=== PATIENT | male | born 1980 | race American Indian/Alaskan Native ===

== ENCOUNTER 2018-07-11 13:32 | Inpatient (IN) | payer OTHER ==
[2018-07-11] MEDS ORDERED: NACL 0.9% 1000 ML 1,000 ML ONE (14:14)
[2018-07-11] MEDS ORDERED: NACL 0.9% 1000 ML 1,000 ML IV ONE ×2 (14:24)
[2018-07-11] MEDS: DUONEB *Not for PRN Use IH ONE (14:25)
[2018-07-11 14:28] LABS: Basophils % (Auto) 0.4 % (0.0-1.8); Eosinophils % (Auto) 0.2 % (0.0-4.3); Hematocrit 28.7 % (35.5-45.6); Hemoglobin 9.6 gm/dl (11.8-15.2); Lymphocytes # (Auto) 1.5 K/mm3 (1.2-5.4); Lymphocytes % (Auto) 25.1 % (13.4-35.0); Mean Corpuscular HGB Conc 34 % (32-34); Mean Corpuscular Volume 87 fl (84-94); Monocytes # (Auto) 0.3 K/mm3 (0.0-0.8); Monocytes % (Auto) 5.3 % (0.0-7.3); Platelet Count 398 K/mm3 (140-440); Red Cell Distribution Width 14.7 % (13.2-15.2)
--- NOTE | 2018-07-11 14:42 | Emergency Department Report ---
HPI - General Chief Complaint: Weakness Time Seen by Provider: 07/11/18 14:09 - HPI HPI: 37-year-old presents to the emergency department from [facility] with complaints of generalized weakness, shortness of breath, Dry and productive cough, intermittent diarrhea. The patient says he has lost about 40 pounds over the past few months because he is not "eating well." He denies any fever, dysuria, nausea, vomiting, chest pain. He has history of HIV but is not on any medications. He is a tobacco smoker but says that he has not been smoking since he was incarcerated. ED Past Medical Hx - Past Medical History Hx HIV: Yes - Social History Smoking Status: Former Smoker ED Review of Systems ROS: Stated complaint: SOB/WEAKNESS Other details as noted in HPI Comment: All other systems reviewed and negative Constitutional: denies: chills, fever Eyes: denies: eye pain, vision change ENT: denies: ear pain, throat pain Respiratory: cough, shortness of breath Cardiovascular: denies: chest pain, edema Gastrointestinal: nausea, vomiting, diarrhea Genitourinary: denies: dysuria, discharge Musculoskeletal: denies: back pain, arthralgia Skin: denies: rash, lesions Neurological: denies: headache, weakness Physical Exam - Physical Exam Vital Signs: Vital Signs 07/11/18 07/11/18 13:39 14:10 Temperature 99.8 F H Pulse Rate 104 H Respiratory 29 H Rate Blood Pressure 94/50 88/53 [Left] O2 Sat by Pulse 90 Oximetry Physical Exam: GENERAL: Patient is ill-appearing and cachectic. HENT: Normocephalic. Atraumatic. Patient has moist mucous membranes. EYES: Extraocular motions are intact. Pupils equal reactive to light bilaterally. NECK: Supple. Trachea is midline. CHEST/LUNGS: Rhonchi heard throughout the lungs. There is some tachypnea but no excessive muscle use. Productive cough. During examination. There is no respiratory distress noted. HEART/CARDIOVASCULAR: Regular. There is no tachycardia. There is no murmur. ABDOMEN: Abdomen is soft, nontender. Patient has normal bowel sounds. There is no abdominal distention. SKIN: Skin is warm and dry. NEURO: The patient is awake, alert, and oriented. The patient is cooperative. The patient has no focal neurologic deficits. The patient has normal speech. MUSCULOSKELETAL: There is no tenderness or deformity. There is no evidence of acute injury. ED Course Vital Signs 07/11/18 07/11/18 13:39 14:10 Temperature 99.8 F H Pulse Rate 104 H Respiratory 29 H Rate Blood Pressure 94/50 88/53 [Left] O2 Sat by Pulse 90 Oximetry ED Medical Decision Making - Lab Data Result diagrams: 07/11/18 14:06 07/11/18 14:06 - EKG Data -: EKG Interpreted by Me EKG shows normal: sinus rhythm (ventricular bigeminy), axis, intervals, QRS complexes, ST-T waves Rate: tachycardia (101 bpm) - Radiology Data Radiology results: report reviewed, image reviewed interpreted by me: Chest x-ray shows bilateral diffuse patchy infiltrates concerning for pneumonia. PROCEDURE: CT ANGIO CHEST TECHNIQUE: Axial images were performed from the lung apices to the bases following IV contrast administration. Multiplanar reformats were performed on the acquisition scanner. Total exam DLP 442.86 mg-centimeter HISTORY: SOB, elevated dimer COMPARISONS: Chest x-ray same day demonstrating bilateral diffuse alveolar infiltrates FINDINGS: There are bilateral patchy alveolar infiltrates, somewhat consolidative. No effusion. Mild reticulonodular interstitial infiltrates or thickening as well. No pulmonary embolus. Hazy mediastinum. Anasarca of the body wall. Paucity of body fat. Mild cardiomegaly. Imaged upper abdomen is unremarkable. IMPRESSION: No pulmonary embolus. Bilateral patchy and somewhat confluent alveolar infiltrates and interstitial infiltrates. No effusions. Mild cardiomegaly. Runnings likely reflect a viral pneumonia or inhalational process. This document is electronically signed by Flor Armendariz MD., Jul 11 2018 06:08:50 PM ET Transcribed By: MP Dictated By: FLOR ARMENDARIZ Electronically Authenticated By: FLOR ARMENDARIZ Signed Date/Time: 07/11/181810 - Medical Decision Making Patient presents to the emergency department with complaint of a cough and shortness of breath over the past week. The patient appears ill and has a cachectic appearance. He has a history of HIV but is not on any medication. X- ray shows bilateral diffuse pulmonary infiltrates concerning for pneumonia. Labs show some anemia, elevated d-dimer level. Blood cultures sent and patient started on Bactrim IV. CT angiography of the chest does not show any pulmonary embolism but once again shows diffuse infiltrates. Patient will be admitted to the hospital for further evaluation and treatment was accepted for admission by the hospitalist, Dr. Santo. - Differential Diagnosis Sepsis, Pneumonia, PCP, URI Critical Care Time: No Critical care attestation.: If time is entered above; I have spent that time in minutes in the direct care of this critically ill patient, excluding procedure time. ED Disposition Clinical Impression: AIDS Sepsis Qualifiers: Sepsis type: sepsis due to unspecified organism Qualified Code(s): A41.9 - Sepsis, unspecified organism Bilateral pneumonia Qualifiers: Pneumonia type: due to unspecified organism Lung location: unspecified part of lung Qualified Code(s): J18.9 - Pneumonia, unspecified organism Disposition: 09 OP ADMIT IP TO THIS HOSP Is pt being admited?: Yes Condition: Serious Instructions: Bacterial Pneumonia (ED) Referrals: LELIA ALLEN MD [Primary Care Provider] - 3-5 Days Time of Disposition: 18:41
[2018-07-11 14:46] LABS: Alanine Aminotransferase 11 units/L (7-56); Albumin 2.1 g/dL (3.9-5); BUN/Creatinine Ratio 25; Blood Urea Nitrogen 15 mg/dL (9-20); Calcium 7.3 mg/dL (8.4-10.2); Hemolysis Index 24
[2018-07-11] MEDS ORDERED: BACTRIM DS PO ONE (15:31)
[2018-07-11] MEDS ORDERED: TYLENOL PO ONE (16:01)
--- NOTE | 2018-07-11 16:38 | XRay Report ---
PROCEDURE: XR CHEST 1V AP TECHNIQUE: AP chest x-ray HISTORY: SOB COMPARISONS: None FINDINGS: Diffuse patchy alveolar densities present. Hilar regions bilaterally. No effusions are identified. No evidence of pneumothorax. No acute bony ab normalities are seen. Heart size appears normal. No acute bone abnormalities are visualized. IMPRESSION: Diffuse alveolar densities present bilaterally. Extensive bilateral pneumonia is suspected. Pulmonary edema could present in this manner.. No effusions are seen. This document is electronically signed by Kamari Johnson MD., Jul 11 2018 04:35:57 PM ET
[2018-07-11] MEDS ORDERED: PROVENTIL IH PRN (17:16)
[2018-07-11] MEDS ORDERED: SODIUM CHLORIDE FLUSH SYRINGE 10 ML IV PRN (17:16)
--- NOTE | 2018-07-11 17:16 | History and Physical Report ---
History of Present Illness Chief complaint: I cant breathe and I have a cough History of present illness: 37 YO Male with HIV noncompliant with Antiretroviral Medication, Severe Malnutrition, Nicotine Dependence presents to ED for evaluation. Pt is in the custody of law enforcement. Pt states that he has experienced shortness of breath, generalized weakness, and productive cough over the past 2 weeks with progressively worsening symptoms over the past 1 week. Pt states that he just "feels weak, and tired" and has not taken his HIV medication for at least 6 months prior to his incarceration. Pt also reports 40lbs unintentional weight loss over the past 2 months and intermittent loose stools over the past 2 weeks. Pt denies fever, chills, CP, Palpitations, syncope, Trauma, foot drop, seizures, Vertigo, Blurred Vision, Dizziness, or known ill contacts. No prior admissions for review. No medication listed for reconciliation at time of admission. Pt admitted to IMCU and initiated on Pneumonia protocol. Pt treated with nebulizer therapy in ED with improvement in symptoms. Past History Past Medical History: HIV/AIDS Past Surgical History: No surgical history, Other (reviewed) Social history: single, smoking Family history: no significant family history (reviewed) Medications and Allergies Allergies Allergy/AdvReac Type Severity Reaction Status Date / Time No Known Allergies Allergy Unverified 07/11/18 13:43 Home Medications Medication Instructions Recorded Confirmed Last Taken Type Fluticasone [Flonase] 1 spray NS DAILY 07/11/18 07/11/18 Unknown History Active Meds: Active Medications Trimethoprim/Sulfamethoxazole (300 mg/ Dextrose) 518.75 mls @ 350 mls/hr IV Q6 HR HE; Protocol Review of Systems Constitutional: weight loss, weakness, no weight gain, no fever, no chills Ears, nose, mouth and throat: no ear pain, no ear discharge, no tinnitis, no decreased hearing, no nose pain Cardiovascular: no chest pain, no orthopnea, no palpitations Respiratory: cough, cough with sputum, excessive sputum, shortness of breath, no hemoptysis, no congestion Gastrointestinal: no nausea, no vomiting, no diarrhea, no constipation Genitourinary Male: no hematuria, no flank pain, no discharge, no urinary f requency, no urinary hesitancy Rectal: no pain, no incontinence, no bleeding Musculoskeletal: no neck stiffness, no neck pain, no shooting arm pain, no arm numbness/tingling, no low back pain Integumentary: no rash, no pruritis, no redness, no sores, no wounds Neurological: no head injury, no transient paralysis, no paralysis, no weakness, no numbness, no seizures, no tremors Psychiatric: no anxiety, no memory loss, no change in sleep habits, no sleep disturbances, no insomnia, no suicidal ideation Endocrine: no heat intolerance, no excessive thirst, no polydipsia, no polyuria, no nocturia Hematologic/Lymphatic: no easy bruising, no easy bleeding, no lymphadenopathy, no lymphedema Allergic/Immunologic: no urticaria, no wheezing, no persistent infections, no anaphylaxis Exam - Constitutional Vitals: Temp Pulse Resp BP Pulse Ox 99.8 F H 104 H 29 H 88/53 90 07/11/18 14:10 07/11/18 14:10 07/11/18 14:10 07/11/18 14:10 07/11/18 14:10 General appearance: Present: mild distress, cachectic, disheveled - EENT Eyes: Present: PERRL ENT: hearing intact, clear oral mucosa - Neck Neck: Present: supple, normal ROM - Respiratory Respiratory effort: labored Respiratory: bilateral: diminished, rhonchi - Cardiovascular Heart Sounds: Present: S1 & S2. Absent: rub, click - Extremities Extremities: pulses symmetrical, No edema Peripheral Pulses: within normal limits - Abdominal General gastrointestinal: Present: soft, non-tender, non-distended, normal bowel sounds Male genitourinary: Present: normal - Integumentary Integumentary: Present: clear, dry, clammy, decreased turgor - Musculoskeletal Musculoskeletal: generalized weakness - Psychiatric Psychiatric: appropriate mood/affect, intact judgment & insight, memory intact - Neurologic Neurologic: CNII-XII intact, no focal deficits, moves all extremities, no gait normal Results - Labs CBC & Chem 7: 07/11/18 14:06 07/11/18 14:06 Labs: Abnormal lab results 07/11/18 07/11/18 07/11/18 Range/Units 14:06 14:06 15:04 RBC 3.30 L (3.65-5.03) M/mm3 Hgb 9.6 L (11.8-15.2) gm/dl Hct 28.7 L (35.5-45.6) % D-Dimer 1298.70 H (0-234) ng/mlDDU Sodium 132 L (137-145) mmol/L Creatinine 0.6 L (0.8-1.5) mg/dL Glucose 103 H (75-100) mg/dL Calcium 7.3 L (8.4-10.2) mg/dL Albumin 2.1 L (3.9-5) g/dL Assessment and Plan - Patient Problems (1) PCP (pneumocystis carinii pneumonia) Current Visit: Yes Status: Acute Qualifiers: Laterality: bilateral Plan to address problem: Admit to IMCU:Pt initiated on Pneumonia protocol: IV antibiotic therapy, IV steroid therapy, pulse oximetry, ABG, Chest X ray, CTAngio Chest, ID consulted, Blood culture, CBC, CMP, NIPPV as clinically indicated, CT Brain to evaluate for evidence for [employer] disease (2) Hyponatremia syndrome Current Visit: Yes Status: Acute Plan to address problem: IVF resuscitation therapy, repeat bmp, monitor uop q shift, (3) Severe malnutrition Current Visit: Yes Status: Acute Plan to address problem: Albumin level, increased protein intake, dietary supplementation (4) AIDS Current Visit: Yes Status: Acute Plan to address problem: ID consulted, Pt is noncompliant with HAART therapy and is unaware of CD4 count. (5) DVT prophylaxis Current Visit: Yes Status: Acute Plan to address problem: SCD to BLE while in bed, Prophylactic lovenox
--- NOTE | 2018-07-11 18:11 | Cat Scan Report ---
PROCEDURE: CT ANGIO CHEST TECHNIQUE: Axial images were performed from the lung apices to the bases following IV contrast admin istration. Multiplanar reformats were performed on the acquisition scanner. Total exam DLP 442.86 mg-centimeter HISTORY: SOB, elevated dimer COMPARISONS: Chest x-ray same day demonstrating bilateral diffuse alveolar infiltrates FINDINGS: There are bilateral patchy alveolar infiltrates, somewhat consolidative. No effusion. Mild reticulonodular interstitial infiltrates or thickening as well. No pulmonary embolus. Hazy mediastinum. Anasarca of the body wall. Paucity of body fat. Mild cardiomegaly. Imaged upper abdomen is unremarkable. IMPRESSION: No pulmonary embolus. Bilateral patchy and somewhat confluent alveolar infiltrates and interstitial infiltrates. No effusio ns. Mild cardiomegaly. Runnings likely reflect a viral pneumonia or inhalational process. This document is electronically signed by Ariana Kramer MD., Jul 11 2018 06:08:50 PM ET
[2018-07-11] MEDS: NACL 0.9% 1000 ML 1,000 ML IV SCH ×2 (18:17→20:20)
[2018-07-11] MEDS: BACTRIM 300 MG in D5W 500 ML IV SCH (18:17)
[2018-07-11] MEDS: BACTRIM DS PO SCH (21:47)
[2018-07-11] MEDS: SODIUM CHLORIDE FLUSH SYRINGE 10 ML IV SCH (21:47)
[2018-07-11] MEDS ORDERED: DIPRIVAN 10 MG/ML IV ONE (22:48)
[2018-07-11] MEDS ORDERED: DIPRIVAN 10 MG/ML IV PRN (22:52)
[2018-07-11] MEDS ORDERED: QUELICIN ONE (23:00)
[2018-07-11] MEDS ORDERED: VERSED IV ONE (23:00)
[2018-07-11] MEDS ORDERED: DIPRIVAN 10 MG/ML 1,000 MG/100 ML BOTTLE IV ONE (23:33)
--- NOTE | 2018-07-11 23:51 | Progress Note ---
Subjective Date of service: 07/11/18 (Emergent ICU Intubation) Interval history: Called to ICU for patient with pnuemonia and respiratory distress requiring emergent intubation. On arrival, patient found to be obtunded, normotensive, tachycardic, SpO2 91% on O2@ via NRB with tachypnea and increased worked of breathing. After brief review of pertinent medical hx and labs, patient was sedated with propofol 80mg IV and paralyzed with succinylcholine 100mg IV. Intubation performed with glidescope blade 3, grade 1 view, 7.5 oETT. Placement confirmed by direct visualization, bilateral breath sounds, and +CO2 color saunders e. SpO2 dropped to mid-80s during intubation but quickly returned to >95% with Ambu. Otherwise HD stable. Placed on vent by RT. Times 2330 -2340. Objective - Constitutional Vitals: Vital Signs - 12hr 07/11/18 07/11/18 07/11/18 13:39 14:00 14:10 Temperature 99.8 F H Pulse Rate 104 H Respiratory 29 H Rate Blood Pressure Blood Pressure 94/50 88/53 [Left] O2 Sat by Pulse 77 L 90 Oximetry 07/11/18 07/11/18 07/11/18 14:15 14:45 15:15 Temperature Pulse Rate 102 H 104 H 99 H Respiratory 27 H 27 H 30 H Rate Blood Pressure 88/53 88/53 104/66 Blood Pressure [Left] O2 Sat by Pulse 90 94 88 Oximetry 07/11/18 07/11/18 07/11/18 15:35 16:45 17:15 Temperature Pulse Rate 98 H 97 H Respiratory 21 20 37 H Rate Blood Pressure 99/66 105/72 Blood Pressure [Left] O2 Sat by Pulse 90 90 91 Oximetry 07/11/18 07/11/18 07/11/18 17:28 17:38 18:00 Temperature Pulse Rate 104 H 95 H Respiratory 20 47 H Rate Blood Pressure 109/67 Blood Pressure 105/72 [Left] O2 Sat by Pulse 90 90 92 Oximetry 07/11/18 07/11/18 07/11/18 19:00 19:45 20:00 Temperature Pulse Rate 99 H 106 H 109 H Respiratory 47 H 40 H 46 H Rate Blood Pressure 102/67 106/65 Blood Pressure 102/62 [Left] O2 Sat by Pulse 96 93 91 Oximetry 07/11/18 07/11/1819 21:00 21:35 22:00 Temperature Pulse Rate 98 H 102 H 101 H Respiratory 51 H 45 H 43 H Rate Blood Pressure Blood Pressure 109/74 101/70 [Left] O2 Sat by Pulse 97 96 91 Oximetry - Labs CBC & Chem 7: 07/11/18 14:06 07/11/18 14:06 Labs: Abnormal lab results 07/11/18 07/11/18 07/11/18 Range/Units 14:06 14:06 15:04 RBC 3.30 L (3.65-5.03) M/mm3 Hgb 9.6 L (11.8-15.2) gm/dl Hct 28.7 L (35.5-45.6) % D-Dimer 1298.70 H (0-234) ng/mlDDU POC ABG pH (7.35-7.45) POC ABG pO2 (80-105) Sodium 132 L (137-145) mmol/L Creatinine 0.6 L (0.8-1.5) mg/dL Glucose 103 H (75-100) mg/dL Calcium 7.3 L (8.4-10.2) mg/dL Lactate Dehydrogenase (91-180) units/L Albumin 2.1 L (3.9-5) g/dL 07/11/18 07/11/18 Range/Units 17:36 22:15 RBC (3.65-5.03) M/mm3 Hgb (11.8-15.2) gm/dl Hct (35.5-45.6) % D-Dimer (0-234) ng/mlDDU POC ABG pH 7.289 L (7.35-7.45) POC ABG pO2 66 L (80-105) Sodium (137-145) mmol/L Creatinine (0.8-1.5) mg/dL Glucose (75-100) mg/dL Calcium (8.4-10.2) mg/dL Lactate Dehydrogenase 591 H (91-180) units/L Albumin (3.9-5) g/dL
[2018-07-12] MEDS ORDERED: SUBLIMAZE IV PRN (00:26)
--- NOTE | 2018-07-12 00:45 | XRay Report ---
PROCEDURE: XR CHEST 1V AP TECHNIQUE: Chest radiograph single view. HISTORY: ETT COMPARISONS: July 11, 2018 . FINDINGS: Heart: Normal. Mediastinum/Vessels: Normal. Lungs/Pleural space: Lungs are expanded. There are diffuse bilateral pulmonary infiltrates similar t o prior study. There is no pleural effusion or pneumothorax.. Bony thorax: No acute osseous abnormality. Life support devices: Endotracheal tube is in the mid trachea.. IMPRESSION: Heart size is normal. Lungs are expanded. There are diffuse bilateral pulmonary infiltrates similar to prior study. There i s no pleural effusion or pneumothorax.. Endotracheal tube is in the mid trachea.. This document is electronically signed by Dieudonne Mack MD., Jul 12 2018 12:43:16 AM ET
[2018-07-12] MEDS: DIPRIVAN 10 MG/ML 1,000 MG/100 ML BOTTLE IV SCH ×2 (00:49→10:18)
[2018-07-12] MEDS: fentaNYL DRIP Premix 2,000 MCG/100 ML BAG IV SCH ×2 (01:26→11:51)
[2018-07-12] MEDS: NACL 0.9% 1000 ML 1,000 ML IV SCH ×3 (06:49→17:30)
[2018-07-12] MEDS: BACTRIM 300 MG in D5W 500 ML IV SCH ×4 (06:58→19:33)
[2018-07-12] MEDS ORDERED: LOVENOX SUB-Q SCH (10:00)
[2018-07-12] MEDS ORDERED: NACL 0.9% 1000 ML 1,000 ML IV ONE (10:03)
[2018-07-12] MEDS: ROCEPHIN/NS 2 GM/100 ML 2 GM/100 ML BAG IV SCH (10:10)
[2018-07-12] MEDS: SOLU-Medrol IV SCH (10:44)
[2018-07-12] MEDS: ZITHROMAX 500 MG in NACL 0.9% 250ML 250 ML IV SCH (10:44)
[2018-07-12] MEDS: LOVENOX SUB-Q SCH (10:44)
[2018-07-12] MEDS: SODIUM CHLORIDE FLUSH SYRINGE 10 ML IV SCH ×2 (10:50→22:25)
--- NOTE | 2018-07-12 11:32 | Consultation ---
History of Present Illness Consult date: 07/12/18 Requesting physician: OSBALDO SINGH Reason for consult: other (Acute Hypoxemic Resp Failure on MVS) History of present illness: PULMONARY/CCM CONSULT NOTE (Full dictation # [id number]) Please see dictated notes for full details Past History Past Medical History: HIV/AIDS Past Surgical History: No surgical history, Other (reviewed) Social history: single, smoking Family history: no significant family history (reviewed) Medications and Allergies Allergies Allergy/AdvReac Type Severity Reaction Status Date / Time No Known Allergies Allergy Unverified 07/11/18 13:43 Home Medications Medication Instructions Recorded Confirmed Last Taken Type Fluticasone [Flonase] 1 spray NS DAILY 07/11/18 07/11/18 Unknown History Active Meds: Active Medications Albuterol (Proventil) 2.5 mg IH Q3HRT PRN PRN Reason: Shortness Of Breath Enoxaparin Sodium (Lovenox) 40 mg SUB-Q QDAY@1000 HE Last Admin: 07/12/18 10:44 Dose: 40 mg Documented by: Fentanyl (Sublimaze) 50 mcg IV Q10MIN PRN PRN Reason: ANALGESIA Trimethoprim/Sulfamethoxazole (300 mg/ Dextrose) 518.75 mls @ 350 mls/hr IV Q6HR HE; Protocol Last Admin: 07/12/18 06:58 Dose: 350 mls/hr Documented by: Azithromycin 500 mg/ Sodium (Chloride) 250 mls @ 250 mls/hr IV Q24HR HE; Protocol Last Admin: 07/12/18 10:44 Dose: 250 mls/hr Documented by: Ceftriaxone Sodium (Rocephin/Ns 2 Gm/100 Ml) 2 gm in 100 mls @ 200 mls/hr IV Q24HR HE; Protocol Last Admin: 07/12/18 10:10 Dose: 200 mls/hr Documented by: Sodium Chloride (Nacl 0.9% 1000 Ml) 1,000 mls @ 125 mls/hr IV DIRECT HE Last Infusion: 07/12/18 08:06 Dose: 125 mls/hr Documented by: Fentanyl Citrate (Fentanyl Drip Premix) 2,000 mcg in 100 mls @ 3.065 mls/hr IV TITR HE; Protocol Last Titration: 07/12/18 01:27 Dose: 1 mcg/kg/hr, 3.065 mls/hr Documented by: Propofol (Diprivan 10 Mg/Ml) 1,000 mg in 100 mls @ 1.839 mls/hr IV TITR HE; Protocol Last Admin: 07/12/18 10:18 Dose: 10 mcg/kg/min, 3.678 mls/hr Documented by: Methylprednisolone Sodium Succinate (Solu-Medrol) 40 mg IV Q24HR HE Last Admin: 07/12/18 10:44 Dose: 40 mg Documented by: Sodium Chloride (Sodium Chloride Flush Syringe 10 Ml) 10 ml IV BID HE Last Admin: 07/12/18 10:50 Dose: 10 ml Documented by: Sodium Chloride (Sodium Chloride Flush Syringe 10 Ml) 10 ml IV PRN PRN PRN Reason: LINE FLUSH Physical Examination Vital signs: Vital Signs BP 94/50 07/11/18 13:39 Results - Laboratory Findings CBC and BMP: 07/11/18 14:06 07/11/18 14:06 ABG POC ABG pH 7.275 (7.35-7.45) L 07/12/18 05:37 POC ABG pCO2 47.1 (35-45) H 07/12/18 05:37 POC ABG pO2 92 (80-105) 07/12/18 05:37 POC ABG HCO3 21.9 (22-26 mml/L) 07/12/18 05:37 POC ABG Total CO2 23 (23-27mmol/L) 07/12/18 05:37 POC ABG O2 Sat 96 07/12/18 05:37 PT/INR, D-dimer D-Dimer 1298.70 ng/mlDDU (0-234) H 07/11/18 15:04 Abnormal lab findings: Abnormal Labs 07/11/18 07/11/18 07/11/18 14:06 14:06 15:04 RBC 3.30 L Hgb 9.6 L Hct 28.7 L D-Dimer 1298.70 H POC ABG pH POC ABG pCO2 POC ABG pO2 Sodium 132 L Creatinine 0.6 L Glucose 103 H Calcium 7.3 L Lactate Dehydrogenase Albumin 2.1 L 07/11/18 07/11/18 07/12/18 17:36 22:15 00:41 RBC Hgb Hct D-Dimer POC ABG pH 7.289 L 7.302 L POC ABG pCO2 POC ABG pO2 66 L Sodium Creatinine Glucose Calcium Lactate Dehydrogenase 591 H Albumin 07/12/18 05:37 RBC Hgb Hct D-Dimer POC ABG pH 7.275 L POC ABG pCO2 47.1 H POC ABG pO2 Sodium Creatinine Glucose Calcium Lactate Dehydrogenase Albumin
--- NOTE | 2018-07-12 12:46 | XRay Report ---
Single view abdomen: History: Confirmation of Dobbhoff feeding tube. Findings: Tip of Dobbhoff feeding tube is noted in descending duodenum. Minimal air in small and large bowel. Impression: Tip of Dobbhoff feeding tube in descending duodenum.
[2018-07-12] MEDS ORDERED: ARTIFICIAL TEARS OPHTH OINT OU PRN (13:30)
[2018-07-12] MEDS ORDERED: VASELINE LIP THERAPY TP PRN (13:30)
--- NOTE | 2018-07-12 15:08 | Progress Note ---
Assessment and Plan Assessment and plan: 37 YO Male with HIV noncompliant with Antiretroviral Medication FOR THE PAST 6 MONTHS, Severe Malnutrition, Nicotine Dependence presents to ED for evaluation. Pt is in the custody of law enforcement. Pt states that he has experienced shortness of breath, generalized weakness, and productive cough over the past 2 weeks with progressively worsening symptoms over the past 1 week. Pt states that he just "feels weak, and tired" and has not taken his HIV medication for at least 6 months prior to his incarceration. Pt also reports 40lbs unintentional weight loss over the past 2 months and intermittent loose stools over the past 2 weeks. Pt denies fever, chills, CP, Palpitations, syncope, Trauma, foot drop, seizures, Vertigo, Blurred Vision, Dizziness, or known ill contacts. No prior admissions for review. No medication listed for reconciliation at time of admission. Pt admitted to [facility] and initiated on Pneumonia protocol. Pt treated with nebulizer therapy in ED with improvement in symptoms. In the ED, temp 99.8, HR 104, R 29, O2 sat 77%, BP 94/50. WBC 6.1, Hg 9.6, Plat 398. Creat 0.6. Blood culture 07/11/2018 no growth today. Sputum culture 07/11/2018 no growth today. Chest CT showed bilateral patchy and somewhat confluent alveolar infiltrates and interstitial infiltrates. No effusions. Mild cardiomegaly. Patient required emergent intubation following admission to the [facility]. CT head: No CT evidence of acute intracranial abnormality. Pansinus disease cultures so far has no growth Acute Hypoxic respiratory failure now on mechanical ventilation Sepsis present on admission with grater than 2 SOFA criteria PCP (pneumocystis carinii pneumonia) Diarrhea Hyponatermia Syndrome Severe Malnutrition AIDS ANEMIA Elevated d/DIMER- NO PE noted Nicotine dependance PLAN -Continue supportive care -follow up labs and ID recommendations -Pulmonary input noted, Aspiration precautions and VAP bundles in place -Monitor CD4, HIV-viral load - Continue IV seteroids, LABA, SANDHYA -Agree with bactrim IV and stop the PO -Discussed with Physician at the Assisted house and will keep updated. The high probability of a clinically significant, sudden or life threatening deterioration of the [pulmonary, system(s) required my full and direct attention, intervention and personal management. The aggregate critical care francisco e was [50] minutes. This time is in addition to time spent performing reported procedures but includes the following: [x] Data Review and interpretation [x] Patient assessment and monitoring of vital signs [x] Documentation [x] Medication orders and management . History Interval history: Patient seen and examined, remains on mechanical ventilation, although awake and following commands. Per Anesthesia documentation, patient decompensated overnight requiring emergent intubation. Hospitalist Physical - Physical exam Narrative exam: General appearance: Present: cachectic, disheveled, moderate distress on mechanical ventilation - EENT Eyes: Present: PERRL ENT: hearing intact, clear oral mucosa - Neck Neck: Present: supple, normal ROM - Respiratory Respiratory effort: bronchiovesicular sounds Respiratory: bilateral: diminished, rhonchi - Cardiovascular Heart Sounds: Present: S1 & S2. Absent: rub, click - Extremities Extremities: pulses symmetrical, No edema Peripheral Pulses: within normal limits - Abdominal General gastrointestinal: Present: soft, non-tender, non-distended, normal bowel sounds Male genitourinary: Present: normal - Integumentary Integumentary: Present: clear, dry, clammy, decreased turgor - Musculoskeletal Musculoskeletal: generalized weakness - Psychiatric Psychiatric: appropriate mood/affect, intact judgment & insight, memory intact - Neurologic Neurologic: CNII-XII intact, no focal deficits, moves all extremities, no gait normal - Constitutional Vitals: Temp Pulse Resp BP Pulse Ox 100.8 F H 123 H 31 H 115/69 98 07/12/18 13:25 07/12/18 14:00 07/12/18 14:00 07/12/18 14:00 07/12/18 14:00 General appearance: Present: mild distress, cachectic, disheveled Results - Labs CBC & Chem 7: 07/11/18 14:06 07/11/18 14:06 Labs: Laboratory Last Values WBC 6.1 K/mm3 (4.5-11.0) 07/11/18 14:06 RBC 3.30 M/mm3 (3.65-5.03) L 07/11/18 14:06 Hgb 9.6 gm/dl (11.8-15.2) L 07/11/18 14:06 Hct 28.7 % (35.5-45.6) L 07/11/18 14:06 MCV 87 fl (84-94) 07/11/18 14:06 MCH 29 pg (28-32) 07/11/18 14:06 MCHC 34 % (32-34) 07/11/18 14:06 RDW 14.7 % (13.2-15.2) 07/11/18 14:06 Plt Count 398 K/mm3 (140-440) 07/11/18 14:06 Lymph % (Auto) 25.1 % (13.4-35.0) 07/11/18 14:06 Maries % (Auto) 5.3 % (0.0-7.3) 07/11/18 14:06 Eos % (Auto) 0.2 % (0.0-4.3) 07/11/18 14:06 Baso % (Auto) 0.4 % (0.0-1.8) 07/11/18 14:06 Lymph # 1.5 K/mm3 (1.2-5.4) 07/11/18 14:06 Maries # 0.3 K/mm3 (0.0-0.8) 07/11/18 14:06 Eos # 0.0 K/mm3 (0.0-0.4) 07/11/18 14:06 Baso # 0.0 K/mm3 (0.0-0.1) 07/11/18 14:06 Seg Neutrophils % 69.0 % (40.0-70.0) 07/11/18 14:06 Seg Neutrophils # 4.2 K/mm3 (1.8-7.7) 07/11/18 14:06 D-Dimer 1298.70 ng/mlDDU (0-234) H 07/11/18 15:04 POC ABG pH 7.275 (7.35-7.45) L 07/12/18 05:37 POC ABG pCO2 47.1 (35-45) H 07/12/18 05:37 POC ABG pO2 92 (80-105) 07/12/18 05:37 POC ABG HCO3 21.9 (22-26 mml/L) 07/12/18 05:37 POC ABG Total CO2 23 (23-27mmol/L) 07/12/18 05:37 POC ABG O2 Sat 96 07/12/18 05:37 POC ABG Base Excess -5 ((-2) - (+3)mmol/L) 07/12/18 05:37 FiO2 100 % 07/12/18 05:37 Sodium 132 mmol/L (137-145) L 07/11/18 14:06 Potassium 4.6 mmol/L (3.6-5.0) 07/11/18 14:06 Chloride 101.4 mmol/L (98-107) 07/11/18 14:06 Carbon Dioxide 23 mmol/L (22-30) 07/11/18 14:06 Anion Gap 12 mmol/L 07/11/18 14:06 BUN 15 mg/dL (9-20) 07/11/18 14:06 Creatinine 0.6 mg/dL (0.8-1.5) L 07/11/18 14:06 Estimated GFR > 60 ml/min 07/11/18 14:06 BUN/Creatinine Ratio 25 % 07/11/18 14:06 Glucose 103 mg/dL (75-100) H 07/11/18 14:06 Lactic Acid 1.80 mmol/L (0.7-2.0) 07/11/18 21:01 Calcium 7.3 mg/dL (8.4-10.2) L 07/11/18 14:06 Total Bilirubin 0.20 mg/dL (0.1-1.2) 07/11/18 14:06 AST 30 units/L (5-40) 07/11/18 14:06 ALT 11 units/L (7-56) 07/11/18 14:06 Alkaline Phosphatase 50 units/L (35-129) 07/11/18 14:06 Lactate Dehydrogenase 591 units/L (91-180) H 07/11/18 17:36 Troponin T < 0.010 ng/mL (0.00-0.029) 07/11/18 15:04 NT-Pro-B Natriuret Pep 249.7 pg/mL (0-450) 07/11/18 15:04 Total Protein 6.3 g/dL (6.3-8.2) 07/11/18 14:06 Albumin 2.1 g/dL (3.9-5) L 07/11/18 14:06 Albumin/Globulin Ratio 0.5 % 07/11/18 14:06 Active Medications - Current Medications Current Medications: Generic Name Dose Route Start Last Admin Trade Name Freq PRN Reason Stop Dose Admin Albuterol 2.5 mg 07/11/18 17:16 Proventil IH Q3HRT PRN Shortness Of Breath Enoxaparin Sodium 40 mg 07/12/18 10:00 07/12/18 10:44 Lovenox SUB-Q 40 mg QDAY@1000 HE Administration Famotidine 20 mg 07/13/18 10:00 Pepcid PO QDAY HE Fentanyl 50 mcg 07/12/18 00:26 Sublimaze IV Q10MIN PRN ANALGESIA Hydrophilic Ointment 1 applic 07/12/18 13:30 Vaseline Lip Therapy TP Q2HR PRN Dry Lips Trimethoprim/Sulfamethoxazole 518.75 mls @ 350 mls/hr 07/11/18 18:00 07/12/18 11:55 300 mg/ Dextrose IV 350 mls/hr Q6HR HE Administration Protocol Azithromycin 500 mg/ Sodium 250 mls @ 250 mls/hr 07/12/18 10:00 07/12/18 10:44 Chloride IV 250 mls/hr Q24HR HE Administration Protocol Ceftriaxone Sodium 2 gm in 100 mls @ 200 mls/hr 07/12/18 10:00 07/12/18 10:10 Rocephin/Ns 2 Gm/100 Ml IV 200 mls/hr Q24HR HE Administration Protocol Sodium Chloride 1,000 mls @ 125 mls/hr 07/11/18 18:00 07/12/18 11:47 Nacl 0.9% 1000 Ml IV 125 mls/hr DIRECT HE Administration Fentanyl Citrate 2,000 mcg in 100 mls @ 3.065 mls/hr 07/12/18 01:00 07/12/18 12:05 Fentanyl Drip Premix IV 2 mcg/kg/hr TITR HE 6.13 mls/hr Titration Protocol 1 MCG/KG/HR Propofol 1,000 mg in 100 mls @ 1.839 mls/hr 07/12/18 01:00 07/12/18 13:35 Diprivan 10 Mg/Ml IV 0 mcg/kg/min TITR HE 0 mls/hr Titration Protocol 5 MCG/KG/MIN Methylprednisolone Sodium Succinate 40 mg 07/12/18 10:00 07/12/18 10:44 Solu-Medrol IV 40 mg Q24HR HE Administration Multi-Ingred Cream/Lotion/Oil/Oint 1 applic 07/12/18 13:30 Artificial Tears Ophth Oint OU Q4HR PRN Dry Eye(s) Sodium Chloride 10 ml 07/11/18 22:00 07/12/18 10:50 Sodium Chloride Flush Syringe 10 Ml IV 10 ml BID HE Administration Sodium Chloride 10 ml 07/11/18 17:16 Sodium Chloride Flush Syringe 10 Ml IV PRN PRN LINE FLUSH Nutrition/Malnutrition Assess - Dietary Evaluation Nutrition/Malnutrition Findings: Nutrition Notes Start: 07/12/18 09:38 Freq: Status: Active Protocol: Document 07/12/18 09:38 EB (Rec: 07/12/18 10:00 EB [id number]) Co-Sign 07/12/18 09:38 LP Nutrition Notes 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 Performed a nutrition focused physical exam and evaluated patient's temporal, clavical, orbital, shoulder, and hand muslce and fat status. Obeserved patient with temporal wasting. Per patient chart, pt has had 40# weight loss in 2 months. Patient on mechanical ventilation. Percent of energy/protein needs met: 0%/0% Burn Absent Trauma Absent Interpretation of Weight Loss (severe) >5% in 1 month Muscle Mass Mild Depletion (non-severe) #1 Nutrition Diagnosis Malnutrition Etiology HIV/AIDS and eating poorly due to poor appetite As Evidenced by Signs and Symptoms 40# unintentional weight loss in 2 months (22% wt change) and temporal wasting Is patient on ventilator? Yes Is Patient Ambulatory and/or Out of Bed No REE-([facility]-confined to bed) 6830.091 Calculation Used for Recommendations [facility] Additional Notes Protein: 74- 92 g (1.2-1.5 g/ kg) Fluid: 1 ml/kcal Nutrition Intervention Change Diet Order: Order diet Goal #1 Advance diet as medically feasible Goal #2 Weight maintenance Anticipated Discharge Needs: Unable to determine at this time Follow-Up By: 07/16/18 Additional Comments F/U: diet advancement and intakes
--- NOTE | 2018-07-12 16:14 | Consultation ---
History of Present Illness - Reason for Consult Consult date: 07/12/18 AIDS Requesting physician: OSBALDO SINGH - History of Present Illness 37 y/o male currently in half-way with history of HIV infection of unknown duration, noncompliant with antiretroviral medication, severe malnutrition; admitted on 07/11/2018, brought by law enforcement, due to 2-week history of shortness of breath, generalized weakness and productive cough. Patient has not taken his HIV medication for at least 6 months prior due to his incarceration. On admission he reported 40lbs unintentional weight loss for 2 months and intermittent loose stools over the past 2 weeks. Patient is currently intubated on the ventilator, unable to provide a history. In the ED, temp 99.8, HR 104, R 29, O2 sat 77%, BP 94/50. WBC 6.1, Hg 9.6, Plat 398. Creat 0.6. Blood culture 07/11/2018 no growth today. Sputum culture 07/11/2018 no growth today. Chest CT showed bilateral patchy and somewhat confluent alveolar infiltrates and interstitial infiltrates. No effusions. Mild cardiomegaly. Patient required emergent intubation. Review of Systems: unable to obtain Past History Past Medical History: HIV/AIDS Past Surgical History: No surgical history, Other (reviewed) Social history: single, smoking Family history: no significant family history (reviewed) Medications and Allergies Allergies Allergy/AdvReac Type Severity Reaction Status Date / Time No Known Allergies Allergy Unverified 07/11/18 13:43 Home Medications Medication Instructions Recorded Confirmed Last Taken Type Fluticasone [Flonase] 1 spray NS DAILY 07/11/18 07/11/18 Unknown History Active Meds: Active Medications Albuterol (Proventil) 2.5 mg IH Q3HRT PRN PRN Reason: Shortness Of Breath Enoxaparin Sodium (Lovenox) 40 mg SUB-Q QDAY@1000 HE Last Admin: 07/12/18 10:44 Dose: 40 mg Documented by: Famotidine (Pepcid) 20 mg PO QDAY HE Fentanyl (Sublimaze) 50 mcg IV Q10MIN PRN PRN Reason: ANALGESIA Hydrophilic Ointment (Vaseline Lip Therapy) 1 applic TP Q2HR PRN PRN Reason: Dry Lips Trimethoprim/Sulfamethoxazole (300 mg/ Dextrose) 518.75 mls @ 350 mls/hr IV Q6HR HE; Protocol Last Admin: 07/12/18 11:55 Dose: 350 mls/hr Documented by: Azithromycin 500 mg/ Sodium (Chloride) 250 mls @ 250 mls/hr IV Q24HR HE; Protocol Last Admin: 07/12/18 10:44 Dose: 250 mls/hr Documented by: Ceftriaxone Sodium (Rocephin/Ns 2 Gm/100 Ml) 2 gm in 100 mls @ 200 mls/hr IV Q24HR HE; Protocol Last Admin: 07/12/18 10:10 Dose: 200 mls/hr Documented by: Sodium Chloride (Nacl 0.9% 1000 Ml) 1,000 mls @ 125 mls/hr IV DIRECT HE Last Admin: 07/12/18 11:47 Dose: 125 mls/hr Documented by: Fentanyl Citrate (Fentanyl Drip Premix) 2,000 mcg in 100 mls @ 3.065 mls/hr IV TITR HE; Protocol Last Titration: 07/12/18 12:05 Dose: 2 mcg/kg/hr, 6.13 mls/hr Documented by: Propofol (Diprivan 10 Mg/Ml) 1,000 mg in 100 mls @ 1.839 mls/hr IV TITR HE; Protocol Last Titration: 07/12/18 13:35 Dose: 0 mcg/kg/min, 0 mls/hr Documented by: Methylprednisolone Sodium Succinate (Solu-Medrol) 40 mg IV Q24HR HE Last Admin: 07/12/18 10:44 Dose: 40 mg Documented by: Multi-Ingred Cream/Lotion/Oil/Oint (Artificial Tears Ophth Oint) 1 applic OU Q4HR PRN PRN Reason: Dry Eye(s) Sodium Chloride (Sodium Chloride Flush Syringe 10 Ml) 10 ml IV BID HE Last Admin: 07/12/18 10:50 Dose: 10 ml Documented by: Sodium Chloride (Sodium Chloride Flush Syringe 10 Ml) 10 ml IV PRN PRN PRN Reason: LINE FLUSH Physical Examination - Physical Exam Narrative exam: General appearance: Alert on the ventilator Eyes: anicteric sclerae, moist conjunctivae; no lid-lag; PERRLA HENT: Atraumatic; oropharynx +ETT +NGT Neck: Trachea midline; supple, no thyromegaly or lymphadenopathy Lungs: ryland crackles CV: tachycardic Abdomen: Soft, non-tender; no masses or hepatosplenomegaly Extremities: No peripheral edema or extremity lymphadenopathy Skin: Normal temperature, turgor and texture; no rash, ulcers or subcutaneous nodules Psych: no agitated Neuro: alert and follows commands. Moving all extermities - Constitutional Vitals: Vital Signs Temp Pulse Resp BP Pulse Ox 100.8 F H 123 H 31 H 115/69 98 07/12/18 13:25 07/12/18 14:00 07/12/18 14:00 07/12/18 14:00 07/12/18 14:00 Temperature -Last 24 Hours Temperature 100.8 F Temperature 100.8 F Temperature 99.1 F Temperature 99.1 F Temperature 98.9 F Temperature 98.9 F Results - Labs CBC & Chem 7: 07/11/18 14:06 07/11/18 14:06 Labs: Abnormal lab results 07/11/18 07/11/18 07/12/18 Range/Units 17:36 22:15 00:41 POC ABG pH 7.289 L 7.302 L (7.35-7.45) POC ABG pCO2 (35-45) POC ABG pO2 66 L (80-105) Lactate Dehydrogenase 591 H (91-180) units/L 07/12/18 Range/Units 05:37 POC ABG pH 7.275 L (7.35-7.45) POC ABG pCO2 47.1 H (35-45) POC ABG pO2 (80-105) Lactate Dehydrogenase (91-180) units/L Assessment and Plan Cultures: Blood culture 07/11/2018 no growth today. Sputum culture 07/11/2018 no growth today. Assessment: 37 y/o male currently in half-way with history of HIV infection of unknown duration, noncompliant with antiretroviral medication, severe malnutrition; admitted on 07/11/2018, brought by law enforcement, due to 2-week history of shortness of breath, generalized weakness and productive cough: 1) Sepsis: Present on admission, manifested by tachycardia, hypotension. Etiology most likely pneumonia. 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 Sputum culture 07/11/2018 no growth today. Chest CT showed bilateral patchy and somewhat confluent alveolar infiltrates and interstitial infiltrates. No effusions. Mild cardiomegaly. 3) HIV, presumed AIDS: Patient has not taken his HIV medication for at least 6 months prior due to his incarceration. On admission he reported 40lbs unintentional weight loss for 2 months and intermittent loose stools over the past 2 weeks. Patient is currently intubated on the ventilator, unable to provide a history. 4) Diarrhea: ? possible opportunistic infection. 5) Acute respiratory failure: from pneumonia. 6) Anemia . Recommendations: - follow-up blood cultures - obtain sputum for PJP DFA and regular sputum culture - check LDL - obtain Cryptococcal serum antigen, RPR, viral hepatitis panel - CD4, HIV-viral load - agree with bactrim IV and solumedrol IV for severe PJP pneumonia with hypoxemia - agree with ceftriaxone and azithromycin for now - stool studies Will follow. Ana Kaur MD Infectious Diseases Packager [facility] ([facility] M [phone] O [phone]
[2018-07-12] MEDS: TYLENOL FEEDTUBE PRN (18:22)
--- NOTE | 2018-07-12 18:23 | Cat Scan Report ---
PROCEDURE: CT HEAD/BRAIN WO CON TECHNIQUE: CT images of the head were obtained without the use of IV contrast HISTORY: HIV COMPARISONS: None available FINDINGS: No CT evidence of intracranial mass, hemorrhage, acute territorial infarction, or hydrocephalus. Intr acranial arteries are symmetric in density. There is focal encephalomalacia in the right frontal lobe . There is opacification of the bilateral maxillary, ethmoid, sphenoid, and frontal sinuses. Mastoids are aerated. No acute fracture is seen. IMPRESSION: No CT evidence of acute intracranial abnormality. Pansinus disease . This document is electronically signed by Jennifer Waldron MD., Jul 12 2018 06:21:29 PM ET
[2018-07-12] MEDS: DUONEB *Not for PRN Use IH ONE (19:56)
[2018-07-12] MEDS: BACTRIM DS PO SCH (21:06)
[2018-07-12] MEDS: INTROPIN DRIP 800 MG/D5W 250 ML 800 MG/250 ML BAG IV SCH (22:25)
[2018-07-13 01:00] LABS: Hepatitis C Virus Antibody Non-Reactive (NonReactive)
[2018-07-13] MEDS: NACL 0.9% 1000 ML 1,000 ML IV SCH ×3 (01:10→22:53)
--- NOTE | 2018-07-13 01:24 | Consultation ---
PULMONARY CRITICAL CARE CONSULTATION CONSULTING PHYSICIAN: Dr. Santo. REASON FOR CONSULTATION: Acute hypoxemic respiratory failure, on mechanical ventilatory support and HIV/AIDS. CHIEF COMPLAINT AND HISTORY OF PRESENT ILLNESS: The patient is a 37-year-old -[place] male with a past medical history significant for diagnosis of being HIV positive, not compliant with his antiretroviral medications, severely malnourished looking and also history of tobacco abuse as far as I can tell from him a 10+ pack year smoking history who was brought into the Emergency Room. He is in the custody of [facility]. He was complaining of shortness of breath, generalized weakness, and productive cough. Denied hemoptysis, increasing dyspnea on exertion. He thinks that he has not been taking his HIV meds for at least 6 months prior to his incarceration. He has lost about 40 pounds over the preceding couple of months. He denied any again hemoptysis. He denied any trauma. He denied any foot drop. He denied any seizures. He denied any visual changes. He denied any sick contacts. He could not tell me if he has been checked for TB before, but I do believe that was done at the residential. He was admitted initially to the step-down unit, initiated on pneumonia protocol. He decompensated there and required emergent intubation. This was about 11:45 p.m. last night. Post-intubation, I stopped by to see him in his room. He is alert. He is oriented. He denies headache. He feels a little bit better. This really is as much of the history of presentation as I have. PAST MEDICAL HISTORY: HIV/AIDS. PAST SURGICAL HISTORY: Denies. MEDICATIONS: Medications he was on at the time I stopped by to see him were reviewed. Pertinent medications included the following: P.r.n. albuterol, Zithromax 500 mg IV daily, Rocephin 2 g IV daily, Lovenox 40 mg subQ daily. Fentanyl drip was going at 1 mcg/kg/hour. Solu-Medrol 40 mg IV q.12 hours. Propofol drip was going at 10 mcg/kg/minute. He was on Bactrim, I believe, 300 mg IV q.6 hours. ALLERGIES: No known drug allergies. DIET: Cachectic gentleman. He states he has lost about 20 pounds over the past couple of months. FAMILY AND SOCIAL HISTORY: He has been incarcerated, has about a 34-[id number]-[id number] tobacco smoking history. Denied illicit drug use. Denied alcohol abuse. FAMILY HISTORY: Otherwise unobtainable. REVIEW OF SYSTEMS: Difficult to obtain secondary to his mental condition, but he denied any gross hematochezia or melena. Denied gross hematuria or dysuria. No hematemesis. No witnessed seizures since he has been here. Denies any new onset of focal weakness. Denies polydipsia or polyuria. Denies heat or cold intolerance. He is complaining of fevers. A complete 13-system review of system was done as best as I could. Pertinent positives and/or negatives are as in body of the history above, otherwise noncontributory. PHYSICAL EXAMINATION: VITAL SIGNS: At presentation in the Emergency Room, he had a fever of 99.8. His pulse was 97, respiratory rate was 37, blood pressure 105/72, oxygen sats were 91%, inspired oxygen concentration at that time was not reported. As at the time I stopped by to see him, O2 sats were 98% that was on the assist control rate mode of ventilation. Sat rate of 28, tidal volume 450, PEEP of 10 and I believe 100% FiO2. GENERAL: Again, he is a young -[place] male, normocephalic, atraumatic, on the mechanical ventilator with increased respiratory effort at rest. HEAD, EYES, EARS, NOSE AND THROAT: He is anicteric. No conjunctival erythema. Oropharynx is dry. Endotracheal tube is taped at the lips around 23 cm. He does have temporal wasting. Grossly, no palpable lymph nodes in the supraclavicular or submandibular lymph node chains. No gross jugular venous distention. No obvious oral thrush as best as I can see. No palpable large lymph nodes in the axillary regions too. LUNGS: Auscultation of both lung rowell, basilar inspiratory crackles, otherwise clear. No wheezing. CARDIOVASCULAR: Heart sounds 1 and 2 were heard. They were regular in rate and rhythm at the time of my evaluation, without rubs or murmurs. ABDOMEN: Soft, flat. Bowel sounds are positive, nontender. No palpable hepatosplenomegaly. EXTREMITIES: Without overt digital clubbing or cyanosis. No pedal edema. Pedal pulses are palpable and strong. NEUROLOGIC: Pupils are equal, round, about 3 mm, reactive to light. Extraocular muscle movements are intact. He moves all 4 extremities spontaneously. No fasciculations. No spasticity. The skin is of poor turgor without overt cellulitis or rash. LABORATORY DATA: From review as follows: White cell count on admission 6100, hemoglobin 9.6, hematocrit 28.7, platelet count 398. D-dimer was elevated at 1298. Arterial blood gas at presentation showed a pH of 7.29, pCO2 of 42, pO2 of 66 that was on 85% FiO2. Most recent ABG shows a pH of 7.28 with pCO2 of 47, pO2 of 92 that was on 100% FiO2 on the above-mentioned vent settings. Serum sodium 132, potassium 4.6, chloride 101, bicarbonate 23, BUN was 15, creatinine 0.6, and glucose 103. Lactic acid level was within normal limits. Liver function tests within normal limits. LDH was up at 591. Albumin was low at 2.1. Blood cultures, tracheal aspirate no growth to date. Chest x-ray was reviewed. He actually also had a CT angiogram that has been reviewed. The chest x-ray shows an endotracheal tube with the tip in good position, bilateral perihilar predominant infiltrates without overt pneumothorax. The CT angio, decent contrast phase timing, no filling defects consistent with major order pulmonary emboli that I can see on my screen. Contrast phase timing was not the best. He has dense consolidation involving both lung rowell, all lobes really. No pleural effusions. Disease burden is highest in the bases, but also present in the upper lobes. No gross pneumothorax. No gross bony fracture. The ET-tube tip was riding a little high on the chest x-ray. The tip is actually at the lower level of the clavicular heads. ASSESSMENT AND PLAN: 1. Acute hypoxemic respiratory failure, on mechanical ventilatory support. 2. Bilateral pneumonia, high suspicion for Pneumocystis jiroveci pneumonia. 3. Human immunodeficiency virus/acquired immunodeficiency syndrome, noncompliant with therapy. 4. Hyponatremia. 5. Severe protein calorie malnutrition. 6. Elevated D-dimer. 7. Tobacco use disorder. PLAN: I do agree with the current empiric therapy including coverage for PCP pneumonia. Just considering the disease burden and how much oxygen he is on, we will increase the systemic steroids to 60 mg IV every 8 hours. I will send a tracheal aspirate for cytology, pulse or minus bronchoscopy with bronchoalveolar lavage and sent samples out. Depending really on his clinical progress as well as what his CD4 count is, I will send the lymphocyte enumeration panel to get his CD4 count. Infectious Disease consultation I believe has been placed. His numbers are consistent with acute respiratory distress syndrome. I will make some vent changes. We will accept permissive hypercapnia. I will keep his plateau pressures below really 30 if I can, but in 30-35 range at worst. Low tidal volume ventilation will be used. Oxygen will be weaned to keep sats greater than or equal to about 90%. He is appropriately on DVT prophylaxis. He will be placed on GI prophylaxis. Neuro imaging is pending. Flu and pneumonia vaccination will be addressed per protocol. I will schedule bronchodilator treatments for him, short acting bronchodilators in the short term. Thank you very much for the consult Dr. Santo. We will follow along and make further recommendations as picture progresses/becomes clearer. He is critically ill, on life-sustaining interventions including mechanical ventilatory support, at high risk for from cardiopulmonary system deterioration. At this time, I spent about 35-40 minutes of critical care time without overlap and excluding any procedural time that may be necessary. JOB# [id number] CARLOS/SUSAN ARANA
[2018-07-13] MEDS: BACTRIM 300 MG in D5W 500 ML IV SCH ×4 (01:39→18:20)
[2018-07-13 01:46] LABS: Hepatitis B Surface Antigen Non-Reactive (Negative)
[2018-07-13] MEDS: DIPRIVAN 10 MG/ML 1,000 MG/100 ML BOTTLE IV SCH ×2 (03:52→19:21)
--- NOTE | 2018-07-13 04:13 | XRay Report ---
PROCEDURE: XR CHEST 1V AP TECHNIQUE: Chest radiograph single view. HISTORY: follow up respiratory failure COMPARISONS: July 12, 2018 FINDINGS: Heart: Normal. Mediastinum/Vessels: Normal. Lungs/Pleural space: Lungs are expanded. There are diffuse bilateral pulmonary infiltrates similar t o prior study. There is no pleural effusion or pneumothorax.. Bony thorax: No acute osseous abnormality. Life support devices: Endotracheal tube is in the mid trachea.. There is an NG tube in the stomach. IMPRESSION: Heart size is normal. Lungs are expanded. There are diffuse bilateral pulmonary infiltrates similar to prior study. There i s no pleural effusion or pneumothorax.. Endotracheal tube is in the mid trachea.. There is an NG tube in the stomach. This document is electronically signed by Dieuodnne Mack MD. , Jul 13 2018 04:10:52 AM ET
[2018-07-13] MEDS ORDERED: D50W (25GM) Syringe IV ONE ×2 (08:00→10:03)
[2018-07-13] MEDS: SOLU-Medrol IV SCH (10:05)
[2018-07-13] MEDS: PEPCID PO SCH (10:06)
[2018-07-13] MEDS: ROCEPHIN/NS 2 GM/100 ML 2 GM/100 ML BAG IV SCH (10:06)
[2018-07-13] MEDS: LOVENOX SUB-Q SCH (10:06)
[2018-07-13] MEDS: SODIUM CHLORIDE FLUSH SYRINGE 10 ML IV SCH ×2 (10:15→22:54)
--- NOTE | 2018-07-13 10:37 | Progress Note ---
Assessment and Plan Acute hypoxemic respiratory failure, on mechanical ventilatory support. Bilateral pneumonia, high suspicion for Pneumocystis jiroveci pneumonia. Human immunodeficiency virus/acquired immunodeficiency syndrome,noncompliant wit h therapy. Hyponatremia. Severe protein calorie malnutrition. Elevated D-dimer. Tobacco use disorder. - continue to wean supplemental oxygen to keep O2 sats 88-90% - continue current set rate at 30/min on MVS - ARDS ventilatory strategies with low TV - daily SAT's & SBT assessment as tolerated - sedation target for RASS 0 to -1 - continue bronchodilators with pulmonary hygiene per RT - continue GI & VTE prophylaxis - Lung protective strategies - Daily ABGs/CXR for now - VAP bundle addressed - Tracheal aspirate, blood cultures are negative to date - continue Anti-infectives per ID rec's - follow cytology for PJP - Chambers catheter placed for acute urinary retention. - Continue full MVS - Monitor renal indices closely - Avoid nephrotoxic agents, adjust all medications for CrCL - Strict intake and output monitoring - Tube feedings as tolerated - Accuchecks with glycemic control. Target glucose of 140-180 mg/dL - Maintenance of sleep -wake cycle - Mobility as tolerated by hemodynamics - Influenza and pneumonia vaccination per protocol ..care plan discussed at length with RN/RT at the bedside ..discussed in ICU-IDT rounds PROGNOSIS: GUARDED CONDITION: CRITICAL CODE STATUS: FULL CODE The high probability of a clinically significant, sudden or life-threatening deterioration of the [respiratory, neurology, renal] system(s) required my full and direct attention, intervention and personal management. The aggregate critical care time was [35] minutes without overlap. Time includes spent on; [x] Data Review and interpretation [x] Patient assessment and monitoring of vital signs [x] Documentation [x] Medication orders and management Subjective Date of service: 07/13/18 Principal diagnosis: Acute hypoxemic resp failure; Bilateral pneumonia ? PJP; HIV/AIDS Interval history: Patient is seen today for: Acute hypoxemic respiratory failure, on mechanical v entilatory support; Bilateral pneumonia, high suspicion for Pneumocystis jiroveci pneumonia; Human immunodeficiency virus/acquired immunodeficiency syndrome,noncompliant with therapy; Hyponatremia; Severe protein calorie malnutrition. Seen and examined at bedside; 24-hour events reviewed; nursing and respiratory care staff consulted; no adverse overnight events reported to me; remains on MVS; remains hypoxemic; sedated but to RASS 0; denies acute chest pains or palpitations; NO N/V/F/C; + intermittent agitation Objective Vital Signs - 12hr 07/12/18 07/12/18 07/12/18 22:45 23:00 23:02 Temperature Pulse Rate 83 84 84 Pulse Rate [ From Monitor] Respiratory 30 H 30 H Rate Blood Pressure 77/44 79/47 79/47 O2 Sat by Pulse 95 94 95 Oximetry 07/12/18 07/12/18 07/12/18 23:15 23:27 23:30 Temperature 98.8 F Pulse Rate 83 85 Pulse Rate [ From Monitor] Respiratory 30 H 30 H Rate Blood Pressure 73/47 82/49 O2 Sat by Pulse 95 94 Oximetry 07/12/18 07/13/18 07/13/18 23:45 00:00 00:15 Temperature Pulse Rate 108 H 113 H 114 H Pulse Rate [ From Monitor] Respiratory 25 H 28 H 28 H Rate Blood Pressure 107/66 107/68 113/80 O2 Sat by Pulse 99 100 100 Oximetry 07/13/18 07/13/18 07/13/18 00:30 00:45 01:00 Temperature Pulse Rate 115 H 115 H 117 H Pulse Rate [ From Monitor] Respiratory 29 H 29 H 30 H Rate Blood Pressure 116/74 116/76 112/78 O2 Sat by Pulse 98 97 96 Oximetry 07/13/18 07/13/18 07/13/18 01:15 01:30 01:45 Temperature Pulse Rate 111 H 100 H 94 H Pulse Rate [ From Monitor] Respiratory 28 H 24 21 Rate Blood Pressure 111/76 98/59 91/57 O2 Sat by Pulse 97 94 95 Oximetry 07/13/18 07/13/18 07/13/18 02:00 02:16 02:30 Temperature Pulse Rate 109 H 124 H 104 H Pulse Rate [ From Monitor] Respiratory 29 H 31 H 25 H Rate Blood Pressure 107/71 133/81 104/59 O2 Sat by Pulse 99 92 98 Oximetry 07/13/18 07/13/18 07/13/18 02:46 03:00 03:15 Temperature 97.9 F Pulse Rate 115 H 98 H 106 H Pulse Rate [ From Monitor] Respiratory 29 H 23 28 H Rate Blood Pressure 109/67 133/81 101/62 O2 Sat by Pulse 98 99 98 Oximetry 07/13/18 07/13/18 07/13/18 03:21 03:30 03:45 Temperature Pulse Rate 98 H 97 H 92 H Pulse Rate [ From Monitor] Respiratory 25 H 24 Rate Blood Pressure 101/62 80/52 76/51 O2 Sat by Pulse 96 95 96 Oximetry 07/13/18 07/13/18 07/13/18 04:00 04:15 04:30 Temperature Pulse Rate 96 H 92 H 90 Pulse Rate [ From Monitor] Respiratory 28 H 30 H 25 H Rate Blood Pressure 77/53 85/50 80/44 O2 Sat by Pulse 98 98 97 Oximetry 07/13/18 07/13/18 07/13/18 04:45 05:00 05:15 Temperature Pulse Rate 88 86 89 Pulse Rate [ From Monitor] Respiratory 29 H 30 H 30 H Rate Blood Pressure 73/46 75/47 75/47 O2 Sat by Pulse 98 97 97 Oximetry 07/13/18 07/13/18 07/13/18 05:30 05:46 06:00 Temperature Pulse Rate 87 110 H 101 H Pulse Rate [ From Monitor] Respiratory 30 H 29 H 25 H Rate Blood Pressure 75/45 100/60 94/53 O2 Sat by Pulse 97 99 100 Oximetry 07/13/18 07/13/18 07/13/18 06:15 06:30 06:45 Temperature Pulse Rate 92 H 89 97 H Pulse Rate [ From Monitor] Respiratory 30 H 30 H 30 H Rate Blood Pressure 87/50 83/45 86/56 O2 Sat by Pulse 100 96 97 Oximetry 07/13/18 07/13/18 07/13/18 07:00 07:15 07:30 Temperature Pulse Rate 91 H 96 H 99 H Pulse Rate [ From Monitor] Respiratory 30 H 30 H 30 H Rate Blood Pressure 75/48 83/54 90/54 O2 Sat by Pulse 98 100 99 Oximetry 07/13/18 07/13/18 07/13/18 07:45 07:59 08:00 Temperature 97.6 F Pulse Rate 107 H 105 H Pulse Rate [ 101 H From Monitor] Respiratory 28 H 28 H Rate Blood Pressure 106/69 109/64 O2 Sat by Pulse 96 Oximetry 07/13/18 07/13/18 07/13/18 08:15 08:30 08:45 Temperature Pulse Rate 111 H 97 H 98 H Pulse Rate [ From Monitor] Respiratory 27 H 30 H 31 H Rate Blood Pressure 110/78 102/57 93/54 O2 Sat by Pulse 97 97 Oximetry 07/13/18 07/13/18 08:57 09:00 Temperature Pulse Rate 97 H 111 H Pulse Rate [ From Monitor] Respiratory 33 H Rate Blood Pressure 109/77 109/77 O2 Sat by Pulse 96 97 Oximetry Constitutional: appears uncomfortable, other (young AAM; normocephalic and atraumatic) Eyes: non-icteric ENT: oropharynx moist, other (ETT 23 cm SHONA) Neck: supple, no lymphadenopathy, no JVD Effort: mildly labored Ascultation: Bilateral: diminished breath sounds, rales Percussion: Bilateral: not dull Cardiovascular: regular rate and rhythm Gastrointestinal: normoactive bowel sounds, soft, non-tender, non-distended Integumentary: normal Extremities: no cyanosis, no edema, pulses normal, no ischemia or petechiae Neurologic: normal mental status, non-focal exam, pupils equal and round, CN II- XII normal, motor strength normal and Psychiatric: anxious CBC and BMP: 07/16/18 07:21 07/16/18 07:21 ABG, PT/INR, D-dimer: ABG POC ABG pH 7.254 (7.35-7.45) L 07/13/18 04:03 POC ABG pCO2 49.2 (35-45) H 07/13/18 04:03 POC ABG pO2 93 (80-105) 07/13/18 04:03 POC ABG HCO3 21.8 (22-26 mml/L) 07/13/18 04:03 POC ABG Total CO2 23 (23-27mmol/L) 07/13/18 04:03 POC ABG O2 Sat 96 07/13/18 04:03 PT/INR, D-dimer D-Dimer 1298.70 ng/mlDDU (0-234) H 07/11/18 15:04 Abnormal lab findings: Abnormal Labs 07/11/18 07/11/18 07/11/18 14:06 14:06 15:04 RBC 3.30 L Hgb 9.6 L Hct 28.7 L D-Dimer 1298.70 H POC ABG pH POC ABG pCO2 POC ABG pO2 Sodium 132 L Creatinine 0.6 L Glucose 103 H POC Glucose Calcium 7.3 L Lactate Dehydrogenase Albumin 2.1 L 07/11/18 07/11/18 07/12/18 17:36 22:15 00:41 RBC Hgb Hct D-Dimer POC ABG pH 7.289 L 7.302 L POC ABG pCO2 POC ABG pO2 66 L Sodium Creatinine Glucose POC Glucose Calcium Lactate Dehydrogenase 591 H Albumin 07/12/18 07/12/18 07/13/18 05:37 19:29 04:03 RBC Hgb Hct D-Dimer POC ABG pH 7.275 L 7.254 L POC ABG pCO2 47.1 H 49.2 H POC ABG pO2 Sodium Creatinine Glucose POC Glucose Calcium Lactate Dehydrogenase 731 H Albumin 07/13/18 05:46 RBC Hgb Hct D-Dimer POC ABG pH POC ABG pCO2 POC ABG pO2 Sodium Creatinine Glucose POC Glucose 68 L Calcium Lactate Dehydrogenase Albumin Chest x-ray: image reviewed (bilateral perifilar predominant infiltrates) Allied health notes reviewed: nursing
[2018-07-13] MEDS: fentaNYL DRIP Premix 2,000 MCG/100 ML BAG IV SCH ×2 (10:38→22:52)
--- NOTE | 2018-07-13 11:17 | Progress Note ---
Assessment and Plan Assessment and plan: 37 YO Male with HIV noncompliant with Antiretroviral Medication FOR THE PAST 6 MONTHS, Severe Malnutrition, Nicotine Dependence presents to ED for evaluation. Pt is in the custody of law enforcement. Pt states that he has experienced shortness of breath, generalized weakness, and productive cough over the past 2 weeks with progressively worsening symptoms over the past 1 week. Pt states that he just "feels weak, and tired" and has not taken his HIV medication for at least 6 months prior to his incarceration. Pt also reports 40lbs unintentional weight loss over the past 2 months and intermittent loose stools over the past 2 weeks. Pt denies fever, chills, CP, Palpitations, syncope, Trauma, foot drop, seizures, Vertigo, Blurred Vision, Dizziness, or known ill contacts. No prior admissions for review. No medication listed for reconciliation at time of admission. Pt admitted to [facility] and initiated on Pneumonia protocol. Pt treated with nebulizer therapy in ED with improvement in symptoms. In the ED, temp 99.8, HR 104, R 29, O2 sat 77%, BP 94/50. WBC 6.1, Hg 9.6, Plat 398. Creat 0.6. Blood culture 07/11/2018 no growth today. Sputum culture 07/11/2018 no growth today. Chest CT showed bilateral patchy and somewhat confluent alveolar infiltrates and interstitial infiltrates. No effusions. Mild cardiomegaly. Patient required emergent intubation following admission to the [facility]. CT head: No CT evidence of acute intracranial abnormality. Pansinus disease cultures so far has no growth Acute Hypoxic respiratory failure now on mechanical ventilation Sepsis present on admission with grater than 2 SOFA criteria PCP (pneumocystis carinii pneumonia) Diarrhea Hyponatermia Syndrome Severe Protein Malnutrition AIDS ANEMIA Elevated d/DIMER- NO PE noted Nicotine dependance PLAN -Continue supportive care -follow up labs and ID recommendations -Pulmonary input noted, Aspiration precautions and VAP bundles in place -Monitor CD4, HIV-viral load - Continue IV seteroids, LABA, SANDHYA -Agree with bactrim IV and stop the PO -Discussed with Physician at the [facility] and will keep updated. The high probability of a clinically significant, sudden or life threatening deterioration of the [pulmonary, system(s) required my full and direct attention, intervention and personal management. The aggregate critical care time was [50] minutes. This time is in addition to time spent performing reported procedures but includes the following: [x] Data Review and interpretation [x] Patient assessment and monitoring of vital signs [x] Documentation [x] Medication orders and management . History Interval history: Patient seen and examined, remains on mechanical ventilation, although awake and following commands. Per Anesthesia documentation, patient decompensated overnight requiring emergent intubation. Hospitalist Physical - Physical exam Narrative exam: General appearance: Present: cachectic, disheveled, moderate distress on mechanical ventilation - EENT Eyes: Present: PERRL ENT: hearing intact, clear oral mucosa - Neck Neck: Present: supple, normal ROM - Respiratory Respiratory effort: bronchiovesicular sounds Respiratory: bilateral: diminished, rhonchi - Cardiovascular Heart Sounds: Present: S1 & S2. Absent: rub, click - Extremities Extremities: pulses symmetrical, No edema Peripheral Pulses: within normal limits - Abdominal General gastrointestinal: Present: soft, non-tender, non-distended, normal bowel sounds Male genitourinary: Present: normal - Integumentary Integumentary: Present: clear, dry, clammy, decreased turgor - Musculoskeletal Musculoskeletal: generalized weakness - Psychiatric Psychiatric: appropriate mood/affect, intact judgment & insight, memory intact - Neurologic Neurologic: CNII-XII intact, no focal deficits, moves all extremities, no gait normal - Constitutional Vitals: Temp Pulse Resp BP Pulse Ox 97.6 F 111 H 33 H 109/77 97 07/13/18 07:59 07/13/18 09:00 07/13/18 09:00 07/13/18 09:00 07/13/18 10:43 General appearance: Present: mild distress, cachectic, disheveled Results - Labs CBC & Chem 7: 07/14/18 05:36 07/14/18 05:36 Labs: Laboratory Last Values WBC 6.1 K/mm3 (4.5-11.0) 07/11/18 14:06 RBC 3.30 M/mm3 (3.65-5.03) L 07/11/18 14:06 Hgb 9.6 gm/dl (11.8-15.2) L 07/11/18 14:06 Hct 28.7 % (35.5-45.6) L 07/11/18 14:06 MCV 87 fl (84-94) 07/11/18 14:06 MCH 29 pg (28-32) 07/11/18 14:06 MCHC 34 % (32-34) 07/11/18 14:06 RDW 14.7 % (13.2-15.2) 07/11/18 14:06 Plt Count 398 K/mm3 (140-440) 07/11/18 14:06 Lymph % (Auto) 25.1 % (13.4-35.0) 07/11/18 14:06 Wirt % (Auto) 5.3 % (0.0-7.3) 07/11/18 14:06 Eos % (Auto) 0.2 % (0.0-4.3) 07/11/18 14:06 Baso % (Auto) 0.4 % (0.0-1.8) 07/11/18 14:06 Lymph # 1.5 K/mm3 (1.2-5.4) 07/11/18 14:06 Wirt # 0.3 K/mm3 (0.0-0.8) 07/11/18 14:06 Eos # 0.0 K/mm3 (0.0-0.4) 07/11/18 14:06 Baso # 0.0 K/mm3 (0.0-0.1) 07/11/18 14:06 Seg Neutrophils % 69.0 % (40.0-70.0) 07/11/18 14:06 Seg Neutrophils # 4.2 K/mm3 (1.8-7.7) 07/11/18 14:06 D-Dimer 1298.70 ng/mlDDU (0-234) H 07/11/18 15:04 POC ABG pH 7.254 (7.35-7.45) L 07/13/18 04:03 POC ABG pCO2 49.2 (35-45) H 07/13/18 04:03 POC ABG pO2 93 (80-105) 07/13/18 04:03 POC ABG HCO3 21.8 (22-26 mml/L) 07/13/18 04:03 POC ABG Total CO2 23 (23-27mmol/L) 07/13/18 04:03 POC ABG O2 Sat 96 07/13/18 04:03 POC ABG Base Excess -5 ((-2) - (+3)mmol/L) 07/13/18 04:03 FiO2 100 % 07/13/18 04:03 Sodium 132 mmol/L (137-145) L 07/11/18 14:06 Potassium 4.6 mmol/L (3.6-5.0) 07/11/18 14:06 Chloride 101.4 mmol/L (98-107) 07/11/18 14:06 Carbon Dioxide 23 mmol/L (22-30) 07/11/18 14:06 Anion Gap 12 mmol/L 07/11/18 14:06 BUN 15 mg/dL (9-20) 07/11/18 14:06 Creatinine 0.6 mg/dL (0.8-1.5) L 07/11/18 14:06 Estimated GFR > 60 ml/min 07/11/18 14:06 BUN/Creatinine Ratio 25 % 07/11/18 14:06 Glucose 103 mg/dL (75-100) H 07/11/18 14:06 POC Glucose 68 (70-105) L 07/13/18 05:46 Lactic Acid 1.80 mmol/L (0.7-2.0) 07/11/18 21:01 Calcium 7.3 mg/dL (8.4-10.2) L 07/11/18 14:06 Total Bilirubin 0.20 mg/dL (0.1-1.2) 07/11/18 14:06 AST 30 units/L (5-40) 07/11/18 14:06 ALT 11 units/L (7-56) 07/11/18 14:06 Alkaline Phosphatase 50 units/L (35-129) 07/11/18 14:06 Lactate Dehydrogenase 731 units/L (91-180) H 07/12/18 19:29 Troponin T < 0.010 ng/mL (0.00-0.029) 07/11/18 15:04 NT-Pro-B Natriuret Pep 249.7 pg/mL (0-450) 07/11/18 15:04 Total Protein 6.3 g/dL (6.3-8.2) 07/11/18 14:06 Albumin 2.1 g/dL (3.9-5) L 07/11/18 14:06 Albumin/Globulin Ratio 0.5 % 07/11/18 14:06 Hepatitis A IgM Ab Non-reactive (NonReactive) 07/12/18 23:38 Hep Bs Antigen Non-reactive (Negative) 07/12/18 23:38 Hep B Core IgM Ab Non-reactive (NonReactive) 07/12/18 23:38 Hepatitis C Antibody Non-reactive (NonReactive) 07/12/18 23:38 Active Medications - Current Medications Current Medications: Generic Name Dose Route Start Last Admin Trade Name Freq PRN Reason Stop Dose Admin Acetaminophen 650 mg 07/12/18 18:07 07/12/18 18:22 Tylenol FEEDTUBE 650 mg Q6H PRN Administration Non Cardiac Pain or Temp>100.5 Albuterol 2.5 mg 07/11/18 17:16 Proventil IH Q3HRT PRN Shortness Of Breath Enoxaparin Sodium 40 mg 07/12/18 10:00 07/13/18 10:06 Lovenox SUB-Q 40 mg QDAY@1000 HE Administration Famotidine 20 mg 07/13/18 10:00 07/13/18 10:06 Pepcid PO 20 mg QDAY HE Administration Fentanyl 50 mcg 07/12/18 00:26 Sublimaze IV Q10MIN PRN ANALGESIA Hydrophilic Ointment 1 applic 07/12/18 13:30 Vaseline Lip Therapy TP Q2HR PRN Dry Lips Trimethoprim/Sulfamethoxazole 518.75 mls @ 350 mls/hr 07/11/18 18:00 07/13/18 10:08 300 mg/ Dextrose IV 350 mls/hr Q6HR HE Administration Protocol Azithromycin 500 mg/ Sodium 250 mls @ 250 mls/hr 07/12/18 10:00 07/12/18 20:28 Chloride IV Infused Q24HR HE Infusion Protocol Ceftriaxone Sodium 2 gm in 100 mls @ 200 mls/hr 07/12/18 10:00 07/13/18 10:06 Rocephin/Ns 2 Gm/100 Ml IV 200 mls/hr Q24HR HE Administration Protocol Sodium Chloride 1,000 mls @ 125 mls/hr 07/11/18 18:00 07/13/18 10:53 Nacl 0.9% 1000 Ml IV 125 mls/hr DIRECT HE Administration Fentanyl Citrate 2,000 mcg in 100 mls @ 3.065 mls/hr 07/12/18 01:00 07/13/18 10:55 Fentanyl Drip Premix IV 4 mcg/kg/hr TITR HE 12.26 mls/hr Titration Protocol 1 MCG/KG/HR Propofol 1,000 mg in 100 mls @ 1.839 mls/hr 07/12/18 01:00 07/13/18 10:56 Diprivan 10 Mg/Ml IV 50 mcg/kg/min TITR HE 18.39 mls/hr Titration Protocol 5 MCG/KG/MIN Dopamine HCl/Dextrose 800 mg in 250 mls @ 2.299 mls/hr 07/12/18 22:00 07/13/18 10:46 Intropin Drip 800 Mg/D5w 250 Ml IV 0 mcg/kg/min TITR HE 0 mls/hr Titration Protocol 2 MCG/KG/MIN Methylprednisolone Sodium Succinate 40 mg 07/12/18 10:00 07/13/18 10:05 Solu-Medrol IV 40 mg Q24HR HE Administration Multi-Ingred Cream/Lotion/Oil/Oint 1 applic 07/12/18 13:30 Artificial Tears Ophth Oint OU Q4HR PRN Dry Eye(s) Sodium Chloride 10 ml 07/11/18 22:00 07/13/18 10:15 Sodium Chloride Flush Syringe 10 Ml IV 10 ml BID HE Administration Sodium Chloride 10 ml 07/11/18 17:16 Sodium Chloride Flush Syringe 10 Ml IV PRN PRN LINE FLUSH Nutrition/Malnutrition Assess - Dietary Evaluation Nutrition/Malnutrition Findings: Nutrition Notes Start: 07/12/18 09:38 Freq: Status: Active Protocol: Document 07/13/18 09:37 EB (Rec: 07/13/18 09:42 EB [id number]) Co-Sign 07/13/18 09:37 LP Nutrition Notes Need for Assessment generated from: MD Order Initial or Follow up Reassessment Other Pertinent Diagnosis HIV/AIDS, SOB, weakness, nicotine dependence, PCP, hyponatremia syndrome Current Diet No diet ordered Labs/Tests No recent labs Pertinent Medications Solu-medrol Diprivan Height 5 ft 11 in Weight 61.3 kg Miles Body Weight (kg) 78.18 BMI 18.8 Weight change and time frame 40# unintentional weight loss in 2 months Weight Status Appropriate Subjective/Other Information RD consulted for TF. Percent of energy/protein needs met: 0%/0% Burn Absent Trauma Absent Current % PO Negligible #1 Nutrition Diagnosis Malnutrition Diagnosis Progress(for reassessment Continues documentation) Is patient on ventilator? Yes Is Patient Ambulatory and/or Out of Bed No REE-([facility]-confined to bed) [phone] Calculation Used for Recommendations [facility] Additional Notes Protein: 74- 92 g (1.2-1.5 g/ kg) Fluid: 1 ml/kcal Nutrition Intervention Nutrition Support: Vital 1.2 at 65 mL/hr Flush 100 mL q 4 hr Kcal 1,872 Protein (gm) 117 Carbohydrates (gm) 173 Fat (gm) 84 Fluid (mL) 1,265 Fiber (gm) 8 Goal #1 TF start Goal #2 TF to meet at least 80% of [place] and pro needs Anticipated Discharge Needs: Unable to determine at this time Follow-Up By: 07/16/18 Additional Comments F/u: TF start and tolerance
[2018-07-13] MEDS: ZITHROMAX 500 MG in NACL 0.9% 250ML 250 ML IV SCH (11:28)
[2018-07-13] MEDS ORDERED: SODIUM BICARBONATE FEEDTUBE PRN (12:30)
[2018-07-13] MEDS ORDERED: SIMPLE SYRUP FEEDTUBE PRN ×2 (12:30)
[2018-07-13] MEDS ORDERED: PANCREAZE DR 10,500 UNIT FEEDTUBE PRN (12:30)
[2018-07-13] MEDS: DUONEB *Not for PRN Use IH SCH ×2 (13:58→19:58)
--- NOTE | 2018-07-13 16:10 | Progress Note ---
Assessment and Plan Cultures: Blood culture 07/11/2018 no growth today. Sputum culture 07/11/2018 usual resp silvana Assessment: 37 y/o male currently in retirement with history of HIV infection of unknown duration, noncompliant with antiretroviral medication, severe malnutrition; admitted on 07/11/2018, brought by law enforcement, due to 2-week history of shortness of breath, generalized weakness and productive cough: 1) Sepsis: no fever x 24h. Etiology most likely pneumonia. 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 Sputum culture 07/11/2018 no growth today. Chest CT showed bilateral patchy and somewhat confluent alveolar infiltrates and interstitial infiltrates. No effusions. Mild cardiomegaly. 3) HIV, presumed AIDS: Patient has not taken his HIV medication for at least 6 months prior due to his incarceration. On admission he reported 40lbs unintentional weight loss for 2 months and intermittent loose stools over the past 2 weeks. Patient is currently intubated on the ventilator, unable to pro vide a history. 4) Diarrhea: ? possible opportunistic infection. 5) Acute respiratory failure: not better, from pneumonia. 6) Anemia Recommendations: - follow-up blood cultures - obtain sputum for PJP DFA and regular sputum culture - f/u Cryptococcal serum antigen, RPR, viral hepatitis panel - f/u CD4, HIV-viral load - continue bactrim IV and solumedrol IV for severe PJP pneumonia with hypoxemia - continue ceftriaxone and azithromycin for now - stool studies Will follow. Ana Kaur MD Infectious Diseases Manager Payment [facility] ([facility]) M [phone] O [phone] Subjective Date of service: 07/13/18 Principal diagnosis: Acute hypoxemic resp failure; Bilateral pneumonia ? PJP; HIV/AIDS Interval history: Alert, intubated, feels better, FiO2 70% Objective - Exam Narrative Exam: General appearance: Alert on the ventilator Eyes: anicteric sclerae, moist conjunctivae; no lid-lag; PERRLA HENT: Atraumatic; oropharynx +ETT +NGT Neck: Trachea midline; supple, no thyromegaly or lymphadenopathy Lungs: rlyand crackles CV: tachycardic Abdomen: Soft, non-tender; no masses or hepatosplenomegaly Extremities: No peripheral edema or extremity lymphadenopathy Skin: Normal temperature, turgor and texture; no rash, ulcers or subcutaneous nodules Psych: no agitated Neuro: alert and follows commands. Moving all extermities - Constitutional Vitals: Vital Signs Temp Pulse Resp BP Pulse Ox 98.0 F 100 H 19 83/62 95 07/13/18 12:00 07/13/18 15:00 07/13/18 15:00 07/13/18 15:00 07/13/18 15:00 Temperature -Last 24 Hours Temperature 98.0 F Temperature 97.6 F Temperature 97.9 F Temperature 98.8 F Temperature 97.6 F Temperature 99.8 F Temperature 101.7 F Temperature 101 F - Labs CBC & Chem 7: 07/11/18 14:06 07/11/18 14:06 Labs: Abnormal lab results 07/12/18 07/13/18 07/13/18 Range/Units 19:29 04:03 05:46 POC ABG pH 7.254 L (7.35-7.45) POC ABG pCO2 49.2 H (35-45) POC Glucose 68 L (70-105) Lactate Dehydrogenase 731 H (91-180) units/L 07/13/18 Range/Units 12:23 POC ABG pH (7.35-7.45) POC ABG pCO2 (35-45) POC Glucose 106 H (70-105) Lactate Dehydrogenase (91-180) units/L
[2018-07-14] MEDS: BACTRIM 300 MG in D5W 500 ML IV SCH ×4 (00:14→18:26)
[2018-07-14] MEDS: DUONEB *Not for PRN Use IH SCH ×4 (01:54→20:23)
[2018-07-14] MEDS: DIPRIVAN 10 MG/ML 1,000 MG/100 ML BOTTLE IV SCH ×3 (02:49→21:22)
--- NOTE | 2018-07-14 03:32 | XRay Report ---
PROCEDURE: XR CHEST 1V AP TECHNIQUE: Single radiograph of the chest obtained. HISTORY: follow up respiratory failure COMPARISONS: 07/13/2018. FINDINGS: Tubes and lines are unchanged. Stable airspace opacities seen in the right lung and left lower lobe consistent with pulmonary edema versus pneumonia. IMPRESSION: Stable airspace opacities seen in the right lung and left lower lobe consistent with pulmonary edema versus pneumonia.. This document is electronically signed by Burak Smith MD., Jul 14 2018 03:30:23 AM ET
[2018-07-14 05:59] LABS: Hematocrit 25.7 % (35.5-45.6); Hemoglobin 8.8 gm/dl (11.8-15.2); Mean Corpuscular HGB Conc 34 % (32-34); Mean Corpuscular Volume 86 fl (84-94); Platelet Count 341 K/mm3 (140-440); Red Blood Count 2.99 M/mm3 (3.65-5.03); Red Cell Distribution Width 15.5 % (13.2-15.2)
[2018-07-14 06:23] LABS: BUN/Creatinine Ratio 16; Blood Urea Nitrogen 11 mg/dL (9-20); Calcium 8.2 mg/dL (8.4-10.2); Hemolysis Index 3
--- NOTE | 2018-07-14 07:14 | Progress Note ---
Assessment and Plan Acute Hypoxic respiratory failure on mechanical ventilation Severe sepsis with septic shock Severe ARDS Sepsis present on admission with grater than 2 SOFA criteria PJP (pneumocystis jiroveci pneumonia) Diarrhea Hyponatermia Syndrome Moderate Protein Malnutrition AIDS ANEMIA Elevated d/DIMER- NO PE noted Nicotine dependance/Tobacco use disorder - Wean vasopressor support for MAP>65 -Fentanyl and propfol. Wean off propofol and uptitrate fentanyl Titrate sedation to RASS of 0 to -1 -VAP bundle addressed - Medical management for hyperkalemia, one dose of kayexalate administered. No EKG changes noted from hyperkalemia Suspect the hyperkalemia is from Bactrim therapy - Antibiotics, anti-infectives pepr ID service. -ART per ID service, Antibioic prophylaxis per ID - Continue bronchodilators with pulmonary hygiene per RT - Continue full MVS -Wean FIO2 for O2 sats>90% - Monitor renal indices closely - Avoid nephrotoxic agents - Strict intake and output monitoring - Tube feedings, on Vital AF at 65ml/hour - Aspiration precautions. HOB >40 -Stress ulcer prophylaxis -VTE prophylaxis - Accuchecks with glycemic control. Target glucose of 140-180 mg/dL - Maintenance of sleep -wake cycle - Mobility as tolerated by hemodynamics - Influenza and pneumonia vaccination per protocol ..care plan discussed at length with RN/RT at the bedside -Discussed with the hospitalist service The high probability of a clinically significant, sudden or life threatening deterioration of the [pulmonary, cardiovascular] system(s) required my full and direct attention, intervention and personal management. The aggregate critical care time was [65] minutes. This time is in addition to time spent performing reported procedures but includes the following: [x] Data Review and interpretation [x] Patient assessment and monitoring of vital signs [x] Documentation [x] Medication orders and management Subjective Date of service: 07/14/18 Principal diagnosis: Acute hypoxemic resp failure; Bilateral pneumonia ? PJP; HIV/AIDS Interval history: Patient is seen today for: Acute hypoxemic respiratory failure, on mechanical ventilatory support; Bilateral pneumonia, high suspicion for Pneumocystis jiroveci pneumonia; Human immunodeficiency virus/acquired immunodeficiency syndrome,noncompliant with therapy; Hyponatremia; Moderate protein calorie malnutrition. Seen and examined at bedside; 24-hour events reviewed; nursing and respiratory care staff consulted; no adverse overnight events reported to me; no fevers, no vomiting, some abdominal distension. Episodes of de-saturations with minimal movement Currently on FIO2 75% and PEEP of 10. Remains on fentanyl at 3mcg, propofol at 30mcg and dopamine at 8mcg----all continuous infusions. He is awake, and is able to nod or shake his head appropriately in response to questions Objective Vital Signs - 12hr 07/13/18 07/13/18 07/13/18 19:16 19:30 19:45 Temperature Pulse Rate 132 H 108 H 102 H Pulse Rate [ Anterior Bilateral Throughout] Pulse Rate [ Bilateral Throughout] Pulse Rate [ From Monitor] Respiratory 25 H 17 17 Rate Respiratory Rate [Anterior Bilateral Throughout] Respiratory Rate [Bilateral Throughout] Blood Pressure 95/73 95/58 102/63 O2 Sat by Pulse 94 95 Oximetry 07/13/18 07/13/18 07/13/18 19:54 19:58 20:00 Temperature 100.6 F H Pulse Rate 97 H 97 H Pulse Rate [ 95 H Anterior Bilateral Throughout] Pulse Rate [ Bilateral Throughout] Pulse Rate [ From Monitor] Respiratory 28 H Rate Respiratory 31 H Rate [Anterior Bilateral Throughout] Respiratory Rate [Bilateral Throughout] Blood Pressure 102/63 89/59 O2 Sat by Pulse 96 Oximetry 07/13/18 07/13/18 07/13/18 20:10 20:15 20:30 Temperature Pulse Rate 94 H 96 H Pulse Rate [ 105 H Anterior Bilateral Throughout] Pulse Rate [ 105 H Bilateral Throughout] Pulse Rate [ From Monitor] Respiratory 14 30 H Rate Respiratory 31 H Rate [Anterior Bilateral Throughout] Respiratory 31 H Rate [Bilateral Throughout] Blood Pressure 88/56 92/59 O2 Sat by Pulse Oximetry 07/13/18 07/13/18 07/13/18 20:45 20:56 21:00 Temperature Pulse Rate 90 88 90 Pulse Rate [ Anterior Bilateral Throughout] Pulse Rate [ Bilateral Throughout] Pulse Rate [ From Monitor] Respiratory 30 H 30 H 30 H Rate Respiratory Rate [Anterior Bilateral Throughout] Respiratory Rate [Bilateral Throughout] Blood Pressure 92/57 92/57 93/54 O2 Sat by Pulse 94 95 95 Oximetry 07/13/18 07/13/18 07/13/18 21:06 21:13 21:15 Temperature Pulse Rate 88 85 Pulse Rate [ Anterior Bilateral Throughout] Pulse Rate [ Bilateral Throughout] Pulse Rate [ 94 H From Monitor] Respiratory 30 H 30 H 30 H Rate Respiratory Rate [Anterior Bilateral Throughout] Respiratory Rate [Bilateral Throughout] Blood Pressure 93/54 94/57 O2 Sat by Pulse 95 97 96 Oximetry 07/13/18 07/13/18 07/13/18 21:30 21:45 22:00 Temperature Pulse Rate 84 85 89 Pulse Rate [ Anterior Bilateral Throughout] Pulse Rate [ Bilateral Throughout] Pulse Rate [ From Monitor] Respiratory 30 H 30 H 30 H Rate Respiratory Rate [Anterior Bilateral Throughout] Respiratory Rate [Bilateral Throughout] Blood Pressure 94/57 93/57 93/55 O2 Sat by Pulse 95 94 94 Oximetry 07/13/18 07/13/18 07/13/18 22:15 22:30 22:45 Temperature Pulse Rate 85 83 83 Pulse Rate [ Anterior Bilateral Throughout] Pulse Rate [ Bilateral Throughout] Pulse Rate [ From Monitor] Respiratory 30 H 30 H 30 H Rate Respiratory Rate [Anterior Bilateral Throughout] Respiratory Rate [Bilateral Throughout] Blood Pressure 94/56 94/55 93/58 O2 Sat by Pulse 94 94 94 Oximetry 07/13/18 07/13/18 07/13/18 23:00 23:15 23:17 Temperature 98.3 F Pulse Rate 83 83 Pulse Rate [ Anterior Bilateral Throughout] Pulse Rate [ Bilateral Throughout] Pulse Rate [ From Monitor] Respiratory 30 H 30 H Rate Respiratory Rate [Anterior Bilateral Throughout] Respiratory Rate [Bilateral Throughout] Blood Pressure 93/55 92/55 O2 Sat by Pulse 94 94 Oximetry 07/13/18 07/13/18 07/13/18 23:29 23:30 23:45 Temperature Pulse Rate 83 82 84 Pulse Rate [ Anterior Bilateral Throughout] Pulse Rate [ Bilateral Throughout] Pulse Rate [ From Monitor] Respiratory 30 H 30 H Rate Respiratory Rate [Anterior Bilateral Throughout] Respiratory Rate [Bilateral Throughout] Blood Pressure 91/58 91/58 93/57 O2 Sat by Pulse 94 94 93 Oximetry 07/14/18 07/14/18 07/14/18 00:00 00:15 00:30 Temperature Pulse Rate 83 83 79 Pulse Rate [ Anterior Bilateral Throughout] Pulse Rate [ Bilateral Throughout] Pulse Rate [ 77 From Monitor] Respiratory 28 H 30 H 30 H Rate Respiratory Rate [Anterior Bilateral Throughout] Respiratory Rate [Bilateral Throughout] Blood Pressure 92/58 91/58 99/66 O2 Sat by Pulse 97 94 96 Oximetry 07/14/18 07/14/18 07/14/18 00:45 01:00 01:15 Temperature Pulse Rate 78 77 77 Pulse Rate [ Anterior Bilateral Throughout] Pulse Rate [ Bilateral Throughout] Pulse Rate [ From Monitor] Respiratory 30 H 30 H 30 H Rate Respiratory Rate [Anterior Bilateral Throughout] Respiratory Rate [Bilateral Throughout] Blood Pressure 100/63 101/65 100/63 O2 Sat by Pulse 96 96 96 Oximetry 07/14/18 07/14/18 07/14/18 01:30 01:45 01:56 Temperature Pulse Rate 76 79 Pulse Rate [ 90 Anterior Bilateral Throughout] Pulse Rate [ Bilateral Throughout] Pulse Rate [ From Monitor] Respiratory 30 H 30 H Rate Respiratory 30 H Rate [Anterior Bilateral Throughout] Respiratory Rate [Bilateral Throughout] Blood Pressure 101/64 98/61 O2 Sat by Pulse 96 95 Oximetry 07/14/18 07/14/18 07/14/18 02:00 02:07 02:15 Temperature Pulse Rate 83 83 Pulse Rate [ 87 Anterior Bilateral Throughout] Pulse Rate [ 105 H Bilateral Throughout] Pulse Rate [ From Monitor] Respiratory 30 H 30 H Rate Respiratory 30 H Rate [Anterior Bilateral Throughout] Respiratory 31 H Rate [Bilateral Throughout] Blood Pressure 98/61 97/59 O2 Sat by Pulse 95 96 Oximetry 07/14/18 07/14/18 07/14/18 02:30 02:45 03:00 Temperature Pulse Rate 83 105 H 89 Pulse Rate [ Anterior Bilateral Throughout] Pulse Rate [ Bilateral Throughout] Pulse Rate [ From Monitor] Respiratory 17 24 24 Rate Respiratory Rate [Anterior Bilateral Throughout] Respiratory Rate [Bilateral Throughout] Blood Pressure 101/58 88/56 100/68 O2 Sat by Pulse 96 81 L 96 Oximetry 07/14/18 07/14/18 07/14/18 03:10 03:15 03:30 Temperature Pulse Rate 82 91 H 82 Pulse Rate [ Anterior Bilateral Throughout] Pulse Rate [ Bilateral Throughout] Pulse Rate [ From Monitor] Respiratory 21 18 Rate Respiratory Rate [Anterior Bilateral Throughout] Respiratory Rate [Bilateral Throughout] Blood Pressure 100/68 108/68 95/65 O2 Sat by Pulse 95 94 95 Oximetry 07/14/18 07/14/18 07/14/18 03:38 03:45 04:00 Temperature 97.6 F Pulse Rate 79 84 Pulse Rate [ Anterior Bilateral Throughout] Pulse Rate [ Bilateral Throughout] Pulse Rate [ From Monitor] Respiratory 11 L 23 Rate Respiratory Rate [Anterior Bilateral Throughout] Respiratory Rate [Bilateral Throughout] Blood Pressure 103/68 108/68 O2 Sat by Pulse 95 96 Oximetry 07/14/18 07/14/18 07/14/18 04:15 04:30 04:45 Temperature Pulse Rate 79 84 83 Pulse Rate [ Anterior Bilateral Throughout] Pulse Rate [ Bilateral Throughout] Pulse Rate [ From Monitor] Respiratory 31 H 24 28 H Rate Respiratory Rate [Anterior Bilateral Throughout] Respiratory Rate [Bilateral Throughout] Blood Pressure 98/66 96/62 91/60 O2 Sat by Pulse 95 95 94 Oximetry 07/14/18 07/14/18 07/14/18 05:00 05:15 05:30 Temperature Pulse Rate 86 86 82 Pulse Rate [ Anterior Bilateral Throughout] Pulse Rate [ Bilateral Throughout] Pulse Rate [ From Monitor] Respiratory 27 H 16 28 H Rate Respiratory Rate [Anterior Bilateral Throughout] Respiratory Rate [Bilateral Throughout] Blood Pressure 93/57 99/58 98/62 O2 Sat by Pulse 96 96 96 Oximetry 07/14/18 07/14/18 07/14/18 05:45 06:00 06:15 Temperature Pulse Rate 84 82 83 Pulse Rate [ Anterior Bilateral Throughout] Pulse Rate [ Bilateral Throughout] Pulse Rate [ From Monitor] Respiratory 27 H 24 23 Rate Respiratory Rate [Anterior Bilateral Throughout] Respiratory Rate [Bilateral Throughout] Blood Pressure 98/62 93/60 96/62 O2 Sat by Pulse 94 95 95 Oximetry 07/14/18 07/14/18 06:30 06:45 Temperature Pulse Rate 83 82 Pulse Rate [ Anterior Bilateral Throughout] Pulse Rate [ Bilateral Throughout] Pulse Rate [ From Monitor] Respiratory 22 28 H Rate Respiratory Rate [Anterior Bilateral Throughout] Respiratory Rate [Bilateral Throughout] Blood Pressure 96/62 94/62 O2 Sat by Pulse 95 95 Oximetry CBC and BMP: 07/18/18 01:10 07/16/18 07:21 ABG, PT/INR, D-dimer: ABG POC ABG pH 7.337 (7.35-7.45) L 07/14/18 04:19 POC ABG pCO2 41.0 (35-45) 07/14/18 04:19 POC ABG pO2 83 (80-105) 07/14/18 04:19 POC ABG HCO3 22.0 (22-26 mml/L) 07/14/18 04:19 POC ABG Total CO2 23 (23-27mmol/L) 07/14/18 04:19 POC ABG O2 Sat 95 07/14/18 04:19 PT/INR, D-dimer D-Dimer 1298.70 ng/mlDDU (0-234) H 07/11/18 15:04 Abnormal lab findings: Abnormal Labs 07/11/18 07/11/18 07/11/18 14:06 14:06 15:04 RBC 3.30 L Hgb 9.6 L Hct 28.7 L RDW D-Dimer 1298.70 H POC ABG pH POC ABG pCO2 POC ABG pO2 Sodium 132 L Carbon Dioxide Creatinine 0.6 L Glucose 103 H POC Glucose Calcium 7.3 L Lactate Dehydrogenase Albumin 2.1 L 07/11/18 07/11/18 07/12/18 17:36 22:15 00:41 RBC Hgb Hct RDW D-Dimer POC ABG pH 7.289 L 7.302 L POC ABG pCO2 POC ABG pO2 66 L Sodium Carbon Dioxide Creatinine Glucose POC Glucose Calcium Lactate Dehydrogenase 591 H Albumin 07/12/18 07/12/18 07/13/18 05:37 19:29 04:03 RBC Hgb Hct RDW D-Dimer POC ABG pH 7.275 L 7.254 L POC ABG pCO2 47.1 H 49.2 H POC ABG pO2 Sodium Carbon Dioxide Creatinine Glucose POC Glucose Calcium Lactate Dehydrogenase 731 H Albumin 07/13/18 07/13/18 07/13/18 05:46 12:23 18:31 RBC Hgb Hct RDW D-Dimer POC ABG pH POC ABG pCO2 POC ABG pO2 Sodium Carbon Dioxide Creatinine Glucose POC Glucose 68 L 106 H 112 H Calcium Lactate Dehydrogenase Albumin 07/14/18 07/14/18 07/14/18 04:19 05:36 05:36 RBC 2.99 L Hgb 8.8 L Hct 25.7 L RDW 15.5 H D-Dimer POC ABG pH 7.337 L POC ABG pCO2 POC ABG pO2 Sodium 135 L Carbon Dioxide 21 L Creatinine 0.7 L Glucose 123 H POC Glucose Calcium 8.2 L Lactate Dehydrogenase Albumin
[2018-07-14] MEDS: INTROPIN DRIP 800 MG/D5W 250 ML 800 MG/250 ML BAG IV SCH (08:40)
[2018-07-14] MEDS: fentaNYL DRIP Premix 2,000 MCG/100 ML BAG IV SCH ×2 (09:52→21:19)
[2018-07-14] MEDS: ROCEPHIN/NS 2 GM/100 ML 2 GM/100 ML BAG IV SCH (09:53)
[2018-07-14] MEDS: NACL 0.9% 1000 ML 1,000 ML IV SCH (09:53)
[2018-07-14] MEDS: ZITHROMAX 500 MG in NACL 0.9% 250ML 250 ML IV SCH (09:53)
[2018-07-14] MEDS: SOLU-Medrol IV SCH (09:54)
[2018-07-14] MEDS: PEPCID PO SCH (09:54)
[2018-07-14] MEDS: SODIUM CHLORIDE FLUSH SYRINGE 10 ML IV SCH (09:54)
[2018-07-14] MEDS: LOVENOX SUB-Q SCH (09:54)
--- NOTE | 2018-07-14 10:15 | Progress Note ---
Assessment and Plan Assessment and plan: 37 YO Male with HIV noncompliant with Antiretroviral Medication FOR THE PAST 6 MONTHS, Severe Malnutrition, Nicotine Dependence presents to ED for evaluation. Pt is in the custody of law enforcement. Pt states that he has experienced shortness of breath, generalized weakness, and productive cough over the past 2 weeks with progressively worsening symptoms over the past 1 week. Pt states that he just "feels weak, and tired" and has not taken his HIV medication for at least 6 months prior to his incarceration. Pt also reports 40lbs unintentional weight loss over the past 2 months and intermittent loose stools over the past 2 weeks. Pt denies fever, chills, CP, Palpitations, syncope, Trauma, foot drop, seizures, Vertigo, Blurred Vision, Dizziness, or known ill contacts. No prior admissions for review. No medication listed for reconciliation at time of admission. Pt admitted to [facility] and initiated on Pneumonia protocol. Pt treated with nebulizer therapy in ED with improvement in symptoms. In the ED, temp 99.8, HR 104, R 29, O2 sat 77%, BP 94/50. WBC 6.1, Hg 9.6, Plat 398. Creat 0.6. Blood culture 07/11/2018 no growth today. Sputum culture 07/11/2018 no growth today. Chest CT showed bilateral patchy and somewhat confluent alveolar infiltrates and interstitial infiltrates. No effusions. Mild cardiomegaly. Patient required emergent intubation following admission to the [facility]. CT head: No CT evidence of acute intracranial abnormality. Pansinus disease cultures so far has no growth Acute Hypoxic respiratory failure now on mechanical ventilation Sepsis present on admission with grater than 2 SOFA criteria Pneumonia likely due to PCP (pneumocystis carinii pneumonia) Diarrhea Hyponatermia Syndrome Severe Protein Malnutrition AIDS ANEMIA OF CHRONIC DISEASE Elevated d/DIMER- NO PE noted Nicotine dependance PLAN -Continue supportive care -follow up labs and ID recommendations -Pulmonary input noted, Aspiration precautions and VAP bundles in place -Continue coverage for opportunistic infection -Monitor CD4, HIV-viral load - Continue IV seteroids, LABA, SANDHYA -Agree with bactrim IV and stop the PO -Discussed with Physician at the [facility] and will keep updated. The high probability of a clinically significant, sudden or life threatening deterioration of the [pulmonary, system(s) required my full and direct attention, intervention and personal management. The aggregate critical care time was [50] minutes. This time is in addition to time spent performing reported procedures but includes the following: [x] Data Review and interpretation [x] Patient assessment and monitoring of vital signs [x] Documentation [x] Medication orders and management . History Interval history: Patient seen and examined, remains on mechanical ventilation, although awake and following commands. Per Anesthesia documentation, Remains on full ventilatory support Hospitalist Physical - Physical exam Narrative exam: General appearance: Present: cachectic, disheveled, mild distress on mechanical ventilation - EENT Eyes: Present: PERRL ENT: hearing intact, clear oral mucosa - Neck Neck: Present: supple, normal ROM - Respiratory Respiratory effort: bronchiovesicular sounds Respiratory: bilateral: diminished, rhonchi - Cardiovascular Heart Sounds: Present: S1 & S2. Absent: rub, click - Extremities Extremities: pulses symmetrical, No edema Peripheral Pulses: within normal limits - Abdominal General gastrointestinal: Present: soft, non-tender, non-distended, normal bowel sounds Male genitourinary: Present: normal - Integumentary Integumentary: Present: clear, dry, clammy, decreased turgor - Musculoskeletal Musculoskeletal: generalized weakness - Psychiatric Psychiatric: appropriate mood/affect, intact judgment & insight, memory intact - Neurologic Neurologic: CNII-XII intact, no focal deficits, moves all extremities, no gait normal - Constitutional Vitals: Temp Pulse Resp BP Pulse Ox 98.2 F 87 18 90/55 91 07/14/18 07:34 07/14/18 09:00 07/14/18 09:00 07/14/18 09:00 07/14/18 09:00 General appearance: Present: mild distress, cachectic, disheveled Results - Labs CBC & Chem 7: 07/14/18 05:36 07/14/18 05:36 Labs: Laboratory Last Values WBC 7.7 K/mm3 (4.5-11.0) 07/14/18 05:36 RBC 2.99 M/mm3 (3.65-5.03) L 07/14/18 05:36 Hgb 8.8 gm/dl (11.8-15.2) L 07/14/18 05:36 Hct 25.7 % (35.5-45.6) L 07/14/18 05:36 MCV 86 fl (84-94) 07/14/18 05:36 MCH 29 pg (28-32) 07/14/18 05:36 MCHC 34 % (32-34) 07/14/18 05:36 RDW 15.5 % (13.2-15.2) H 07/14/18 05:36 Plt Count 341 K/mm3 (140-440) 07/14/18 05:36 Lymph % (Auto) 25.1 % (13.4-35.0) 07/11/18 14:06 [place] % (Auto) 5.3 % (0.0-7.3) 07/11/18 14:06 Eos % (Auto) 0.2 % (0.0-4.3) 07/11/18 14:06 Baso % (Auto) 0.4 % (0.0-1.8) 07/11/18 14:06 Lymph # 1.5 K/mm3 (1.2-5.4) 07/11/18 14:06 [place] # 0.3 K/mm3 (0.0-0.8) 07/11/18 14:06 Eos # 0.0 K/mm3 (0.0-0.4) 07/11/18 14:06 Baso # 0.0 K/mm3 (0.0-0.1) 07/11/18 14:06 Seg Neutrophils % 69.0 % (40.0-70.0) 07/11/18 14:06 Seg Neutrophils # 4.2 K/mm3 (1.8-7.7) 07/11/18 14:06 D-Dimer 1298.70 ng/mlDDU (0-234) H 07/11/18 15:04 POC ABG pH 7.337 (7.35-7.45) L 07/14/18 04:19 POC ABG pCO2 41.0 (35-45) 07/14/18 04:19 POC ABG pO2 83 (80-105) 07/14/18 04: POC ABG HCO3 22.0 (22-26 mml/L) 07/14/18 04:19 POC ABG Total CO2 23 (23-27mmol/L) 07/14/18 04:19 POC ABG O2 Sat 95 07/14/18 04:19 POC ABG Base Excess -4 ((-2) - (+3)mmol/L) 07/14/18 04:19 FiO2 70 % 07/14/18 04:19 Sodium 135 mmol/L (137-145) L 07/14/18 05:36 Potassium 5.0 mmol/L (3.6-5.0) 07/14/18 05:36 Chloride 101.8 mmol/L (98-107) 07/14/18 05:36 Carbon Dioxide 21 mmol/L (22-30) L 07/14/18 05:36 Anion Gap 17 mmol/L 07/14/18 05:36 BUN 11 mg/dL (9-20) 07/14/18 05:36 Creatinine 0.7 mg/dL (0.8-1.5) L 07/14/18 05:36 Estimated GFR > 60 ml/min 07/14/18 05:36 BUN/Creatinine Ratio 16 % 07/14/18 05:36 Glucose 123 mg/dL (75-100) H 07/14/18 05:36 POC Glucose 112 (70-105) H 07/13/18 18:31 Lactic Acid 1.80 mmol/L (0.7-2.0) 07/11/18 21:01 Calcium 8.2 mg/dL (8.4-10.2) L 07/14/18 05:36 Total Bilirubin 0.20 mg/dL (0.1-1.2) 07/11/18 14:06 AST 30 units/L (5-40) 07/11/18 14:06 ALT 11 units/L (7-56) 07/11/18 14:06 Alkaline Phosphatase 50 units/L (35-129) 07/11/18 14:06 Lactate Dehydrogenase 731 units/L (91-180) H 07/12/18 19:29 Troponin T < 0.010 ng/mL (0.00-0.029) 07/11/18 15:04 NT-Pro-B Natriuret Pep 249.7 pg/mL (0-450) 07/11/18 15:04 Total Protein 6.3 g/dL (6.3-8.2) 07/11/18 14:06 Albumin 2.1 g/dL (3.9-5) L 07/11/18 14:06 Albumin/Globulin Ratio 0.5 % 07/11/18 14:06 RPR Nonreactive (Nonreactive) 07/12/18 23:38 Hepatitis A IgM Ab Non-reactive (NonReactive) 07/12/18 23:38 Hep Bs Antigen Non-reactive (Negative) 07/12/18 23:38 Hep B Core IgM Ab Non-reactive (NonReactive) 07/12/18 23:38 Hepatitis C Antibody Non-reactive (NonReactive) 07/12/18 23:38 Active Medications - Current Medications Current Medications: Generic Name Dose Route Start Last Admin Trade Name Freq PRN Reason Stop Dose Admin Acetaminophen 650 mg 07/12/18 18:07 07/12/18 18:22 Tylenol FEEDTUBE 650 mg Q6H PRN Administration Non Cardiac Pain or Temp>100.5 Albuterol 2.5 mg 07/11/18 17:16 Proventil IH Q3HRT PRN Shortness Of Breath Albuterol/Ipratropium 1 ampul 07/13/18 14:00 07/14/18 08:54 Duoneb *Not For Prn Use* IH 1 ampul Q6HRT HE Administration Lipase/Protease/Amylase 1 each 07/13/18 12:30 Pancreaze 10,500 Unit FEEDTUBE PRN PRN For Clogged Feeding Tube Enoxaparin Sodium 40 mg 07/12/18 10:00 07/14/18 09:54 Lovenox SUB-Q 40 mg QDAY@1000 HE Administration Famotidine 20 mg 07/13/18 10:00 07/14/18 09:54 Pepcid PO 20 mg QDAY HE Administration Fentanyl 50 mcg 07/12/18 00:26 Sublimaze IV Q10MIN PRN ANALGESIA Hydrophilic Ointment 1 applic 07/12/18 13:30 Vaseline Lip Therapy TP Q2HR PRN Dry Lips Trimethoprim/Sulfamethoxazole 518.75 mls @ 350 mls/hr 07/11/18 18:00 07/14/18 07:11 300 mg/ Dextrose IV 350 mls/hr Q6HR HE Administration Protocol Azithromycin 500 mg/ Sodium 250 mls @ 250 mls/hr 07/12/18 10:00 07/14/18 09:53 Chloride IV 250 mls/hr Q24HR HE Administration Protocol Ceftriaxone Sodium 2 gm in 100 mls @ 200 mls/hr 07/12/18 10:00 07/14/18 09:53 Rocephin/Ns 2 Gm/100 Ml IV 200 mls/hr Q24HR HE Administration Protocol Sodium Chloride 1,000 mls @ 125 mls/hr 07/11/18 18:00 07/14/18 09:53 Nacl 0.9% 1000 Ml IV 125 mls/hr DIRECT HE Administration Fentanyl Citrate 2,000 mcg in 100 mls @ 3.065 mls/hr 07/12/18 01:00 07/14/18 09:52 Fentanyl Drip Premix IV 3 mcg/kg/hr TITR HE 9.195 mls/hr Administration Protocol 1 MCG/KG/HR Propofol 1,000 mg in 100 mls @ 1.839 mls/hr 07/12/18 01:00 07/14/18 02:49 Diprivan 10 Mg/Ml IV 30 mcg/kg/min TITR HE 11.034 mls/hr Administration Protocol 5 MCG/KG/MIN Dopamine HCl/Dextrose 800 mg in 250 mls @ 2.299 mls/hr 07/12/18 22:00 07/14/18 08:40 Intropin Drip 800 Mg/D5w 250 Ml IV 8 mcg/kg/min TITR HE 9.195 mls/hr Administration Protocol 2 MCG/KG/MIN Methylprednisolone Sodium Succinate 40 mg 07/12/18 10:00 07/14/18 09:54 Solu-Medrol IV 40 mg Q24HR HE Administration Multi-Ingred Cream/Lotion/Oil/Oint 1 applic 07/12/18 13:30 Artificial Tears Ophth Oint OU Q4HR PRN Dry Eye(s) Simple Syrup 15 ml 07/13/18 12:30 Simple Syrup FEEDTUBE PRN PRN Hypoglycemia Simple Syrup 30 ml 07/13/18 12:30 Simple Syrup FEEDTUBE PRN PRN Hypoglycemia Sodium Bicarbonate 325 mg 07/13/18 12:30 Sodium Bicarbonate FEEDTUBE PRN PRN For Clogged Feeding Tube Sodium Chloride 10 ml 07/11/18 22:00 07/14/18 09:54 Sodium Chloride Flush Syringe 10 Ml IV 10 ml BID HE Administration Sodium Chloride 10 ml 07/11/18 17:16 Sodium Chloride Flush Syringe 10 Ml IV PRN PRN LINE FLUSH Nutrition/Malnutrition Assess - Dietary Evaluation Nutrition/Malnutrition Findings: Nutrition Notes Start: 07/12/18 09:38 Freq: Status: Active Protocol: Document 07/13/18 09:37 EB (Rec: 07/13/18 09:42 EB [id number]) Co-Sign 07/13/18 09:37 LP Nutrition Notes Need for Assessment generated from: MD Order Initial or Follow up Reassessment Other Pertinent Diagnosis HIV/AIDS, SOB, weakness, nicotine dependence, PCP, hyponatremia syndrome Current Diet No diet ordered Labs/Tests No recent labs Pertinent Medications Solu-medrol Diprivan Height 5 ft 11 in Weight 61.3 kg [place] Body Weight (kg) 78.18 BMI 18.8 Weight change and time frame 40# unintentional weight loss in 2 months Weight Status Appropriate Subjective/Other Information RD consulted for TF. Percent of energy/protein needs met: 0%/0% Burn Absent Trauma Absent Current % PO Negligible #2 Nutrition Diagnosis Inadequate oral intake Etiology on mech vent As Evidenced by Signs and Symptoms NPO status #1 Nutrition Diagnosis Malnutrition Diagnosis Progress(for reassessment Continues documentation) Is patient on ventilator? Yes Is Patient Ambulatory and/or Out of Bed No REE-([place]-St. Jeor-confined to bed) 9610.868 Calculation Used for Recommendations [place]-St Jeor Additional Notes Protein: 74- 92 g (1.2-1.5 g/ kg) Fluid: 1 ml/kcal Nutrition Intervention Nutrition Support: Vital 1.2 at 65 mL/hr Flush 100 mL q 4 hr Kcal 1,872 Protein (gm) 117 Carbohydrates (gm) 173 Fat (gm) 84 Fluid (mL) 1,265 Fiber (gm) 8 Goal #1 TF start Goal #2 TF to meet at least 80% of [place] and [place] needs Anticipated Discharge Needs: Unable to determine at this time Follow-Up By: 07/16/18 Additional Comments F/u: TF start and tolerance
--- NOTE | 2018-07-14 11:10 | XRay Report ---
PROCEDURE: XR CHEST 1V AP TECHNIQUE: Chest radiograph, AP portable semierect upright view. HISTORY: R arm PICC placement COMPARISONS: Chest x-ray July 14, 2018. FINDINGS: Cardiac silhouette is within normal limits. Patchy airspace opacities in the right perihilar region and both lower lobes. No pneumothorax. No eff usion. There are no suspicious osseous lesions. Right PICC line tip is in the SVC. Enteric tube extends into the stomach with the tip beyond the margins of the film. Endotracheal tube tip is approximately 7.2 cm with quan. Recommend repositioning at 5 cm above the quan. IMPRESSION: * Patchy bilateral airspace opacities are unchanged compared to the prior and may represent pneumoni a, aspiration, or acute pneumonitis. * Recommend repositioning of the endotracheal tube. * Mathew level II reporting initiated. This document is electronically signed by Bill Gipson MD., Jul 14 2018 11:07:45 AM ET
[2018-07-14] MEDS ORDERED: KIONEX PO ONE (18:00)
[2018-07-15] MEDS: SODIUM CHLORIDE FLUSH SYRINGE 10 ML IV SCH ×2 (00:15→10:21)
[2018-07-15] MEDS: BACTRIM 300 MG in D5W 500 ML IV SCH ×4 (01:30→18:29)
[2018-07-15] MEDS: DIPRIVAN 10 MG/ML 1,000 MG/100 ML BOTTLE IV SCH ×3 (04:10→14:27)
[2018-07-15] MEDS: fentaNYL DRIP Premix 2,000 MCG/100 ML BAG IV SCH ×2 (04:12→14:27)
[2018-07-15] MEDS: DUONEB *Not for PRN Use IH SCH ×4 (04:33→20:20)
--- NOTE | 2018-07-15 09:47 | XRay Report ---
PROCEDURE: XR CHEST 1V AP TECHNIQUE: Single view HISTORY: Tube and line localization. follow up respiratory failure COMPARISONS: Chest x-ray 07/14/2018 FINDINGS: Endotracheal tube tip 8.8 cm above the quan. Feeding tube with tip below diaphragm. Right PICC stab le. No pneumothorax. No effusion. Patchy bilateral perihilar and lower lobe airspace disease with no substantial change. IMPRESSION: No significant interval change. This document is electronically signed by Rickie Allen MD., Jul 15 2018 09:44:37 AM ET
--- NOTE | 2018-07-15 10:15 | Progress Note ---
Assessment and Plan Cultures: Blood culture 07/11/2018 no growth today. Sputum culture 07/11/2018 usual resp silvana Cryptococcal antigen : negative MRSA PCR: positive Assessment: 37 y/o male currently in retirement with history of HIV infection of unknown duration, noncompliant with antiretroviral medication, severe malnutrition; admitted on 07/11/2018, brought by law enforcement, due to 2-week history of shortness of breath, generalized weakness and productive cough: 1) Sepsis with new septic shock, Back on pressors. No fever > 24h. Etiology most likely pneumonia. Will order new blood, sputum and urine cultures. Start Cefepime and Linezolid. 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 Sputum culture 07/11/[address] no growth today. Chest CT showed bilateral patchy and somewhat confluent alveolar infiltrates and interstitial infiltrates. No effusions. Mild cardiomegaly. 3) HIV, presumed AIDS: Patient has not taken his HIV medication for at least 6 months prior due to his incarceration. On admission he reported 40lbs unintentional weight loss for 2 months and intermittent loose stools over the past 2 weeks. Patient is currently intubated on the ventilator, unable to provide a history. 4) Diarrhea: ? possible opportunistic infection. 5) Acute respiratory failure: not better, from pneumonia. 6) Anemia Recommendations: - discontinue ceftriaxone and azithromycin -Start cefepime and Linezolid - continue bactrim IV and solumedrol IV for severe PJP pneumonia with hypoxemia - follow-up blood cultures - obtain sputum for PJP DFA and regular sputum culture - f/u Cryptococcal serum antigen, RPR, viral hepatitis panel - f/u CD4, HIV-viral load -Order new blood culture, sputum culture and Urine culture -Order CRP and Procalcitonin Order CMV DNA PCR [facility] M: [phone] O:[phone] Subjective Date of service: 07/15/18 Principal diagnosis: Acute hypoxemic resp failure; Bilateral pneumonia ? PJP; HIV/AIDS Interval history: Patient seen and examined. Alert, Awake. Intubated. Follows simple commands. no fevers. Objective - Exam Narrative Exam: General appearance: Alert on the ventilator Eyes: anicteric sclerae, moist conjunctivae; no lid-lag; PERRLA HENT: Atraumatic; oropharynx +ETT +NGT Neck: Trachea midline; supple, no thyromegaly or lymphadenopathy Lungs: ryland crackles CV: tachycardic Abdomen: Soft, non-tender; no masses or hepatosplenomegaly Extremities: No peripheral edema or extremity lymphadenopathy Skin: Normal temperature, turgor and texture; no rash, ulcers or subcutaneous nodules Psych: no agitated Neuro: alert and follows commands. Moving all extermities - Constitutional Vitals: Vital Signs Temp Pulse Resp BP Pulse Ox 97.5 F L 94 H 25 H 115/70 90 07/15/18 08:00 07/15/18 10:00 07/15/18 10:00 07/15/18 10:00 07/15/18 09:45 Temperature -Last 24 Hours Temperature 97.5 F Temperature 97.8 F Temperature 97.9 F Temperature 98.3 F Temperature 98.1 F Temperature 98.1 F - Labs CBC & Chem 7: 07/15/18 12:29 07/15/18 12:29 Labs: Abnormal lab results 07/14/18 07/14/18 07/14/18 Range/Units 12:14 14:33 17:18 POC ABG pH 7.325 L (7.35-7.45) POC ABG pO2 75 L (80-105) POC Glucose 174 H 114 H (70-105) 07/15/18 Range/Units 00:17 POC ABG pH (7.35-7.45) POC ABG pO2 (80-105) POC Glucose 113 H (70-105)
[2018-07-15] MEDS: ZITHROMAX 500 MG in NACL 0.9% 250ML 250 ML IV SCH (10:19)
[2018-07-15] MEDS: ROCEPHIN/NS 2 GM/100 ML 2 GM/100 ML BAG IV SCH (10:20)
[2018-07-15] MEDS: SOLU-Medrol IV SCH (10:21)
[2018-07-15] MEDS: PEPCID PO SCH (10:21)
[2018-07-15] MEDS: LOVENOX SUB-Q SCH (10:21)
--- NOTE | 2018-07-15 11:16 | Progress Note ---
Assessment and Plan Assessment and plan: 37 YO Male with HIV noncompliant with Antiretroviral Medication FOR THE PAST 6 MONTHS, Severe Malnutrition, Nicotine Dependence presents to ED for evaluation. Pt is in the custody of law enforcement. Pt states that he has experienced shortness of breath, generalized weakness, and productive cough over the past 2 weeks with progressively worsening symptoms over the past 1 week. Pt states that he just "feels weak, and tired" and has not taken his HIV medication for at least 6 months prior to his incarceration. Pt also reports 40lbs unintentional weight loss over the past 2 months and intermittent loose stools over the past 2 weeks. Pt denies fever, chills, CP, Palpitations, syncope, Trauma, foot drop, seizures, Vertigo, Blurred Vision, Dizziness, or known ill contacts. No prior admissions for review. No medication listed for reconciliation at time of admission. Pt admitted to [facility] and initiated on Pneumonia protocol. Pt treated with nebulizer therapy in ED with improvement in symptoms. In the ED, temp 99.8, HR 104, R 29, O2 sat 77%, BP 94/50. WBC 6.1, Hg 9.6, Plat 398. Creat 0.6. Blood culture 07/11/2018 no growth today. Sputum culture 07/11/2018 no growth today. Chest CT showed bilateral patchy and somewhat confluent alveolar infiltrates and interstitial infiltrates. No effusions. Mild cardiomegaly. Patient required emergent intubation following admission to the [facility]. CT head: No CT evidence of acute intracranial abnormality. 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 STILL REQUIRE RESTRAINTS The high probability of a clinically significant, sudden or life threatening deterioration of the [pulmonary, system(s) required my full and direct attention, intervention and personal management. The aggregate critical care time was [50] minutes. This time is in addition to time spent performing reported procedures but includes the following: [x] Data Review and interpretation [x] Patient assessment and monitoring of vital signs [x] Documentation [x] Medication orders and management . History Interval history: Patient seen and examined, remains on mechanical ventilation, although awake and following commands. Hospitalist Physical - Physical exam Narrative exam: General appearance: Present: cachectic, disheveled, mild distress on mechanical ventilation - EENT Eyes: Present: PERRL ENT: hearing intact, clear oral mucosa - Neck Neck: Present: supple, normal ROM - Respiratory Respiratory effort: bronchiovesicular sounds Respiratory: bilateral: diminished, rhonchi - Cardiovascular Heart Sounds: Present: S1 & S2. tachycardia Absent: rub, click - Extremities Extremities: pulses symmetrical, No edema Peripheral Pulses: within normal limits - Abdominal General gastrointestinal: Present: soft, non-tender, non-distended, normal bowel sounds Male genitourinary: Present: normal - Integumentary Integumentary: Present: clear, dry, clammy, decreased turgor - Musculoskeletal Musculoskeletal: generalized weakness - Psychiatric Psychiatric: appropriate mood/affect, intact judgment & insight, memory intact - Neurologic Neurologic: CNII-XII intact, no focal deficits, moves all extremities, no gait normal - Constitutional Vitals: Temp Pulse Resp BP Pulse Ox 97.5 F L 96 H 30 H 115/70 91 07/15/18 08:00 07/15/18 10:05 07/15/18 10:05 07/15/18 10:00 07/15/18 09:45 General appearance: Present: mild distress, cachectic, disheveled Results - Labs CBC & Chem 7: 07/14/18 05:36 07/14/18 05:36 Labs: Laboratory Last Values WBC 7.7 K/mm3 (4.5-11.0) 07/14/18 05:36 RBC 2.99 M/mm3 (3.65-5.03) L 07/14/18 05:36 Hgb 8.8 gm/dl (11.8-15.2) L 07/14/18 05:36 Hct 25.7 % (35.5-45.6) L 07/14/18 05:36 MCV 86 fl (84-94) 07/14/18 05:36 MCH 29 pg (28-32) 07/14/18 05:36 MCHC 34 % (32-34) 07/14/18 05:36 RDW 15.5 % (13.2-15.2) H 07/14/18 05:36 Plt Count 341 K/mm3 (140-440) 07/14/18 05:36 Lymph % (Auto) 25.1 % (13.4-35.0) 07/11/18 14:06 [place] % (Auto) 5.3 % (0.0-7.3) 07/11/18 14:06 Eos % (Auto) 0.2 % (0.0-4.3) 07/11/18 14:06 Baso % (Auto) 0.4 % (0.0-1.8) 07/11/18 14:06 Lymph # 1.5 K/mm3 (1.2-5.4) 07/11/18 14:06 [place] # 0.3 K/mm3 (0.0-0.8) 07/11/18 14:06 Eos # 0.0 K/mm3 (0.0-0.4) 07/11/18 14:06 Baso # 0.0 K/mm3 (0.0-0.1) 07/11/18 14:06 Seg Neutrophils % 69.0 % (40.0-70.0) 07/11/18 14:06 Seg Neutrophils # 4.2 K/mm3 (1.8-7.7) 07/11/18 14:06 D-Dimer 1298.70 ng/mlDDU (0-234) H 07/11/18 15:04 POC ABG pH 7.325 (7.35-7.45) L 07/14/18 14:33 POC ABG pCO2 42.6 (35-45) 07/14/18 14:33 POC ABG pO2 75 (80-105) L 07/14/18 14:33 POC ABG HCO3 22.2 (22-26 mml/L) 07/14/18 14:33 POC ABG Total CO2 24 (23-27mmol/L) 07/14/18 14:33 POC ABG O2 Sat 94 07/14/18 14:33 POC ABG Base Excess -4 ((-2) - (+3)mmol/L) 07/14/18 14:33 FiO2 65 % 07/14/18 14:33 Sodium 135 mmol/L (137-145) L 07/14/18 05:36 Potassium 5.0 mmol/L (3.6-5.0) 07/14/18 05:36 Chloride 101.8 mmol/L (98-107) 07/14/18 05:36 Carbon Dioxide 21 mmol/L (22-30) L 07/14/18 05:36 Anion Gap 17 mmol/L 07/14/18 05:36 BUN 11 mg/dL (9-20) 07/14/18 05:36 Creatinine 0.7 mg/dL (0.8-1.5) L 07/14/18 05:36 Estimated GFR > 60 ml/min 07/14/18 05:36 BUN/Creatinine Ratio 16 % 07/14/18 05:36 Glucose 123 mg/dL (75-100) H 07/14/18 05:36 POC Glucose 97 (70-105) 07/15/18 05:46 Lactic Acid 1.80 mmol/L (0.7-2.0) 07/11/18 21:01 Calcium 8.2 mg/dL (8.4-10.2) L 07/14/18 05:36 Total Bilirubin 0.20 mg/dL (0.1-1.2) 07/11/18 14:06 AST 30 units/L (5-40) 07/11/18 14:06 ALT 11 units/L (7-56) 07/11/18 14:06 Alkaline Phosphatase 50 units/L (35-129) 07/11/18 14:06 Lactate Dehydrogenase 731 units/L (91-180) H 07/12/18 19:29 Troponin T < 0.010 ng/mL (0.00-0.029) 07/11/18 15:04 NT-Pro-B Natriuret Pep 249.7 pg/mL (0-450) 07/11/18 15:04 Total Protein 6.3 g/dL (6.3-8.2) 07/11/18 14:06 Albumin 2.1 g/dL (3.9-5) L 07/11/18 14:06 Albumin/Globulin Ratio 0.5 % 07/11/18 14:06 RPR Nonreactive (Nonreactive) 07/12/18 23:38 Hepatitis A IgM Ab Non-reactive (NonReactive) 07/12/18 23:38 Hep Bs Antigen Non-reactive (Negative) 07/12/18 23:38 Hep B Core IgM Ab Non-reactive (NonReactive) 07/12/18 23:38 Hepatitis C Antibody Non-reactive (NonReactive) 07/12/18 23:38 Active Medications - Current Medications Current Medications: Generic Name Dose Route Start Last Admin Trade Name Freq PRN Reason Stop Dose Admin Acetaminophen 650 mg 07/12/18 18:07 07/12/18 18:22 Tylenol FEEDTUBE 650 mg Q6H PRN Administration Non Cardiac Pain or Temp>100.5 Albuterol 2.5 mg 07/11/18 17:16 Proventil IH Q3HRT PRN Shortness Of Breath Albuterol/Ipratropium 1 ampul 07/13/18 14:00 07/15/18 09:39 Duoneb *Not For Prn Use* IH 1 ampul Q6HRT HE Administration Lipase/Protease/Amylase 1 each 07/13/18 12:30 Pancreaze 10,500 Unit FEEDTUBE PRN PRN For Clogged Feeding Tube Enoxaparin Sodium 40 mg 07/12/18 10:00 07/15/18 10:21 Lovenox SUB-Q 40 mg QDAY@1000 HE Administration Famotidine 20 mg 07/13/18 10:00 07/15/18 10:21 Pepcid PO 20 mg QDAY HE Administration Fentanyl 50 mcg 07/12/18 00:26 Sublimaze IV Q10MIN PRN ANALGESIA Hydrophilic Ointment 1 applic 07/12/18 13:30 Vaseline Lip Therapy TP Q2HR PRN Dry Lips Trimethoprim/Sulfamethoxazole 518.75 mls @ 350 mls/hr 07/11/18 18:00 07/15/18 06:24 300 mg/ Dextrose IV 350 mls/hr Q6HR HE Administration Protocol Azithromycin 500 mg/ Sodium 250 mls @ 250 mls/hr 07/12/18 10:00 07/15/18 10:19 Chloride IV 250 mls/hr Q24HR HE Administration Protocol Ceftriaxone Sodium 2 gm in 100 mls @ 200 mls/hr 07/12/18 10:00 07/15/18 10:20 Rocephin/Ns 2 Gm/100 Ml IV 200 mls/hr Q24HR HE Administration Protocol Sodium Chloride 1,000 mls @ 125 mls/hr 07/11/18 18:00 07/14/18 09:53 Nacl 0.9% 1000 Ml IV 125 mls/hr DIRECT HE Administration Fentanyl Citrate 2,000 mcg in 100 mls @ 3.065 mls/hr 07/12/18 01:00 07/15/18 04:12 Fentanyl Drip Premix IV 4 mcg/kg/hr TITR HE 12.26 mls/hr Administration Protocol 1 MCG/KG/HR Propofol 1,000 mg in 100 mls @ 1.839 mls/hr 07/12/18 01:00 07/15/18 08:57 Diprivan 10 Mg/Ml IV 50 mcg/kg/min TITR HE 18.39 mls/hr Administration Protocol 5 MCG/KG/MIN Dopamine HCl/Dextrose 800 mg in 250 mls @ 2.299 mls/hr 07/12/18 22:00 07/15/18 08:00 Intropin Drip 800 Mg/D5w 250 Ml IV 6 mcg/kg/min TITR HE 6.896 mls/hr Titration Protocol 2 MCG/KG/MIN Methylprednisolone Sodium Succinate 40 mg 07/12/18 10:00 07/15/18 10:21 Solu-Medrol IV 40 mg Q24HR HE Administration Multi-Ingred Cream/Lotion/Oil/Oint 1 applic 07/12/18 13:30 Artificial Tears Ophth Oint OU Q4HR PRN Dry Eye(s) Simple Syrup 15 ml 07/13/18 12:30 Simple Syrup FEEDTUBE PRN PRN Hypoglycemia Simple Syrup 30 ml 07/13/18 12:30 Simple Syrup FEEDTUBE PRN PRN Hypoglycemia Sodium Bicarbonate 325 mg 07/13/18 12:30 Sodium Bicarbonate FEEDTUBE PRN PRN For Clogged Feeding Tube Sodium Chloride 10 ml 07/11/18 22:00 07/15/18 10:21 Sodium Chloride Flush Syringe 10 Ml IV 10 ml BID HE Administration Sodium Chloride 10 ml 07/11/18 17:16 Sodium Chloride Flush Syringe 10 Ml IV PRN PRN LINE FLUSH Nutrition/Malnutrition Assess - Dietary Evaluation Nutrition/Malnutrition Findings: Nutrition Notes Start: 07/12/18 09:38 Freq: Status: Active Protocol: Document 07/13/18 09:37 EB (Rec: 07/13/18 09:42 EB [id number]) Co-Sign 07/13/18 09:37 LP Nutrition Notes Need for Assessment generated from: MD Order Initial or Follow up Reassessment Other Pertinent Diagnosis HIV/AIDS, SOB, weakness, nicotine dependence, PCP, hyponatremia syndrome Current Diet No diet ordered Labs/Tests No recent labs Pertinent Medications Solu-medrol Diprivan Height 5 ft 11 in Weight 61.3 kg [place] Body Weight (kg) 78.18 BMI 18.8 Weight change and time frame 40# unintentional weight loss in 2 months Weight Status Appropriate Subjective/Other Information RD consulted for TF. Percent of energy/protein needs met: 0%/0% Burn Absent Trauma Absent Current % PO Negligible #2 Nutrition Diagnosis Inadequate oral intake Etiology on [facility] [place] vent As Evidenced by Signs and Symptoms NPO status #1 Nutrition Diagnosis Malnutrition Diagnosis Progress(for reassessment Continues documentation) Is patient on ventilator? Yes Is Patient Ambulatory and/or Out of Bed No REE-([place] Jeor-confined to bed) [phone] Calculation Used for Recommendations [place] Jeor Additional Notes Protein: 74- 92 g (1.2-1.5 g/ kg) Fluid: 1 ml/kcal Nutrition Intervention Nutrition Support: Vital 1.2 at 65 mL/hr Flush 100 mL q 4 hr Kcal 1,872 Protein (gm) 117 Carbohydrates (gm) 173 Fat (gm) 84 Fluid (mL) 1,265 Fiber (gm) 8 Goal #1 TF start Goal #2 TF to meet at least 80% of [place] and pro needs Anticipated Discharge Needs: Unable to determine at this time Follow-Up By: 07/16/18 Additional Comments F/u: TF start and tolerance
[2018-07-15] MEDS ORDERED: ATIVAN IV ONE (11:33)
[2018-07-15] MEDS: NACL 0.9% 1000 ML 1,000 ML IV SCH (11:59)
[2018-07-15 13:07] LABS: Basophils % (Auto) 0.1 % (0.0-1.8); Eosinophils % (Auto) 0.1 % (0.0-4.3); Hematocrit 22.9 % (35.5-45.6); Hemoglobin 7.5 gm/dl (11.8-15.2); Lymphocytes # (Auto) 0.4 K/mm3 (1.2-5.4); Mean Corpuscular HGB Conc 33 % (32-34); Mean Corpuscular Volume 87 fl (84-94); Monocytes # (Auto) 0.2 K/mm3 (0.0-0.8); Monocytes % (Auto) 3.2 % (0.0-7.3); Platelet Count 316 K/mm3 (140-440); Red Blood Count 2.64 M/mm3 (3.65-5.03); Red Cell Distribution Width 15.4 % (13.2-15.2)
[2018-07-15 13:22] LABS: BUN/Creatinine Ratio 18; Blood Urea Nitrogen 11 mg/dL (9-20)
[2018-07-15 13:23] LABS: Calcium 7.3 mg/dL (8.4-10.2); Hemolysis Index 2
[2018-07-15] MEDS: MAXIPIME/NS 2 GM/100 ML 2 GM/100 ML BAG IV SCH ×2 (15:15→21:48)
[2018-07-15] MEDS: COLACE PO SCH ×2 (15:17→21:47)
[2018-07-15] MEDS: ZYVOX 600MG/300ML 600 MG/300 ML BAG IV SCH ×2 (15:17→21:47)
--- NOTE | 2018-07-15 15:34 | Progress Note ---
Assessment and Plan Acute Hypoxic respiratory failure on mechanical ventilation Severe sepsis with septic shock Severe ARDS Sepsis present on admission with grater than 2 SOFA criteria PJP (pneumocystis jiroveci pneumonia) Diarrhea Hyponatermia Syndrome Moderate Protein Malnutrition AIDS ANEMIA Elevated d/DIMER- NO PE noted Nicotine dependance/Tobacco use disorder - Wean vasopressor support for MAP>65 -Titrate sedation to RASS of 0 to -1 -VAP bundle addressed - Continue lung protective strategies per ARDS net protocol -Permissive hypercapnia is acceptable - Antibiotics, anti-infectives per ID service. -ART per ID service, Antibiotic prophylaxis for OI per ID - Continue bronchodilators with pulmonary hygiene per RT - Continue full MVS -Daily CXR and ABG for now -Wean FIO2 for O2 sats>90% - Monitor renal indices closely - Avoid nephrotoxic agents - Strict intake and output monitoring - Tube feedings, on Vital AF at 65ml/hour - Aspiration precautions. HOB >40 -Stress ulcer prophylaxis -VTE prophylaxis - Accuchecks with glycemic control. Target glucose of 140-180 mg/dL -Can stop accuchecks if glucose levels have been within range for 48 hours -Supportive transfusions as indicated for HgB<7g/dL - Maintenance of sleep -wake cycle - Mobility as tolerated by hemodynamics - Influenza and pneumonia vaccination per protocol ..care plan discussed at length with RN/RT at the bedside -Discussed with the hospitalist service The high probability of a clinically significant, sudden or life threatening deterioration of the [pulmonary, cardiovascular] system(s) required my full and direct attention, intervention and personal management. The aggregate critical care time was [35] minutes. This time is in addition to time spent performing reported procedures but includes the following: [x] Data Review and interpretation [x] Patient assessment and monitoring of vital signs [x] Documentation [x] Medication orders and management Subjective Date of service: 07/15/18 Principal diagnosis: Acute hypoxemic resp failure; Bilateral pneumonia ? PJP; HIV/AIDS Interval history: Patient is seen today for: Acute hypoxemic respiratory failure, on mechanical ventilatory support; Bilateral pneumonia, high suspicion for Pneumocystis jiroveci pneumonia; Human immunodeficiency virus/acquired immunodeficiency syndrome,noncompliant with therapy; Hyponatremia; Severe protein calorie malnutrition. Seen and examined at bedside; 24-hour events reviewed; nursing and respiratory care staff consulted; no adverse overnight events reported to me; remains critically ill with high ventilaotry demands and on critical drips. MRSA in the nares, acute desaturations with minimal movement. No fevers, no vomiting. No bowel movement in the past 4 days per RN On AC-PRVC 30/450/70%/10 ABG 7.34/41/83/22/BE -4 Objective - Exam Narrative Exam: Gen: thin, critically ill, intubated and sedated HEENT: NCAT, EOMI, PERRL, OP ETT and NGT in place ETT at 24cm at the lip; 7.5cm ETT Neck: supple, no JVD CVS/Heart: Regular tachycardia, normal S1S2, pulses present bilaterally Chest/Lungs: diminished bs bilateral, Symmetrical chest expansion, good air entry bilaterally GI/Abdomen: soft, good bowel sounds, no guarding or rebound /Bladder: no suprapubic tenderness, Extermity/Skin: no c/c/e, no obvious rash front side MSK: sedated Neuro: awake, alert, obeys one step commands Psych:sedated Vital Signs - 12hr 07/15/18 07/15/18 07/15/18 03:45 04:00 04:15 Temperature 97.8 F Pulse Rate 96 H 97 H 95 H Pulse Rate [ Anterior Bilateral Throughout] Pulse Rate [ Bilateral Throughout] Pulse Rate [ 93 H From Monitor] Respiratory 10 L 12 12 Rate Respiratory Rate [Anterior Bilateral Throughout] Respiratory Rate [Bilateral Throughout] Blood Pressure 101/63 106/58 117/61 O2 Sat by Pulse 92 96 92 Oximetry 07/15/18 07/15/18 07/15/18 04:30 04:35 04:45 Temperature Pulse Rate 97 H 96 H Pulse Rate [ 96 H Anterior Bilateral Throughout] Pulse Rate [ Bilateral Throughout] Pulse Rate [ From Monitor] Respiratory 10 L 11 L Rate Respiratory 14 Rate [Anterior Bilateral Throughout] Respiratory Rate [Bilateral Throughout] Blood Pressure 109/64 98/60 O2 Sat by Pulse 90 Oximetry 07/15/18 07/15/18 07/15/18 05:00 05:15 05:30 Temperature Pulse Rate 95 H 95 H 95 H Pulse Rate [ Anterior Bilateral Throughout] Pulse Rate [ Bilateral Throughout] Pulse Rate [ From Monitor] Respiratory 10 L 12 12 Rate Respiratory Rate [Anterior Bilateral Throughout] Respiratory Rate [Bilateral Throughout] Blood Pressure 104/62 113/63 112/62 O2 Sat by Pulse Oximetry 0507/15/18 07/15/18 05:45 06:00 06:15 Temperature Pulse Rate 96 H 92 H 95 H Pulse Rate [ Anterior Bilateral Throughout] Pulse Rate [ Bilateral Throughout] Pulse Rate [ From Monitor] Respiratory 14 12 12 Rate Respiratory Rate [Anterior Bilateral Throughout] Respiratory Rate [Bilateral Throughout] Blood Pressure 114/64 112/63 108/63 O2 Sat by Pulse 92 94 Oximetry 07/15/18 07/15/18 07/15/18 06:30 06:45 07:00 Temperature Pulse Rate 94 H 90 91 H Pulse Rate [ Anterior Bilateral Throughout] Pulse Rate [ Bilateral Throughout] Pulse Rate [ From Monitor] Respiratory 15 12 15 Rate Respiratory Rate [Anterior Bilateral Throughout] Respiratory Rate [Bilateral Throughout] Blood Pressure 105/62 111/63 114/63 O2 Sat by Pulse Oximetry 07/15/18 07/15/18 07/15/18 07:15 07:30 07:45 Temperature Pulse Rate 91 H 90 89 Pulse Rate [ Anterior Bilateral Throughout] Pulse Rate [ Bilateral Throughout] Pulse Rate [ From Monitor] Respiratory 14 22 16 Rate Respiratory Rate [Anterior Bilateral Throughout] Respiratory Rate [Bilateral Throughout] Blood Pressure 109/63 119/61 109/65 O2 Sat by Pulse 94 93 91 Oximetry 07/15/18 07/15/18 07/15/18 08:00 08:15 08:30 Temperature 97.5 F L Pulse Rate 91 H 92 H 92 H Pulse Rate [ Anterior Bilateral Throughout] Pulse Rate [ Bilateral Throughout] Pulse Rate [ 93 H From Monitor] Respiratory 17 16 27 H Rate Respiratory Rate [Anterior Bilateral Throughout] Respiratory Rate [Bilateral Throughout] Blood Pressure 108/63 115/71 113/66 O2 Sat by Pulse 94 91 87 Oximetry 07/15/18 07/15/18 07/15/18 08:45 09:00 09:15 Temperature Pulse Rate 93 H 93 H 103 H Pulse Rate [ Anterior Bilateral Throughout] Pulse Rate [ Bilateral Throughout] Pulse Rate [ From Monitor] Respiratory 18 21 15 Rate Respiratory Rate [Anterior Bilateral Throughout] Respiratory Rate [Bilateral Throughout] Blood Pressure 98/71 112/67 101/74 O2 Sat by Pulse 90 89 Oximetry 07/15/18 07/15/18 07/15/18 09:30 09:39 09:45 Temperature Pulse Rate 102 H 99 H Pulse Rate [ 99 H Anterior Bilateral Throughout] Pulse Rate [ 99 H Bilateral Throughout] Pulse Rate [ From Monitor] Respiratory 10 L 10 L Rate Respiratory 30 H Rate [Anterior Bilateral Throughout] Respiratory 30 H Rate [Bilateral Throughout] Blood Pressure 121/76 119/67 O2 Sat by Pulse 91 90 Oximetry 07/15/18 07/15/18 07/15/18 10:00 10:05 10:15 Temperature Pulse Rate 94 H 94 H Pulse Rate [ 96 H Anterior Bilateral Throughout] Pulse Rate [ 96 H Bilateral Throughout] Pulse Rate [ From Monitor] Respiratory 25 H 15 Rate Respiratory 30 H Rate [Anterior Bilateral Throughout] Respiratory 30 H Rate [Bilateral Throughout] Blood Pressure 115/70 111/69 O2 Sat by Pulse 89 Oximetry 07/15/18 07/15/18 07/15/18 10:30 10:45 11:00 Temperature Pulse Rate 108 H 104 H 100 H Pulse Rate [ Anterior Bilateral Throughout] Pulse Rate [ Bilateral Throughout] Pulse Rate [ From Monitor] Respiratory 14 12 14 Rate Respiratory Rate [Anterior Bilateral Throughout] Respiratory Rate [Bilateral Throughout] Blood Pressure 128/76 116/68 103/64 O2 Sat by Pulse 92 89 89 Oximetry 07/15/18 07/15/18 07/15/18 11:15 11:30 11:45 Temperature Pulse Rate 106 H 100 H 104 H Pulse Rate [ Anterior Bilateral Throughout] Pulse Rate [ Bilateral Throughout] Pulse Rate [ From Monitor] Respiratory 12 19 18 Rate Respiratory Rate [Anterior Bilateral Throughout] Respiratory Rate [Bilateral Throughout] Blood Pressure 114/69 112/70 103/66 O2 Sat by Pulse 88 93 88 Oximetry 07/15/18 07/15/18 07/15/18 12:00 12:15 12:30 Temperature 97.8 F Pulse Rate 101 H 107 H 102 H Pulse Rate [ Anterior Bilateral Throughout] Pulse Rate [ Bilateral Throughout] Pulse Rate [ 101 H From Monitor] Respiratory 26 H 14 25 H Rate Respiratory Rate [Anterior Bilateral Throughout] Respiratory Rate [Bilateral Throughout] Blood Pressure 113/66 95/66 106/67 O2 Sat by Pulse 93 91 90 Oximetry 07/15/18 07/15/18 07/15/18 12:45 13:00 13:05 Temperature Pulse Rate 101 H 98 H 95 H Pulse Rate [ Anterior Bilateral Throughout] Pulse Rate [ Bilateral Throughout] Pulse Rate [ From Monitor] Respiratory 14 15 Rate Respiratory Rate [Anterior Bilateral Throughout] Respiratory Rate [Bilateral Throughout] Blood Pressure 104/70 115/69 115/69 O2 Sat by Pulse 90 91 91 Oximetry 07/15/18 07/15/18 07/15/18 13:15 13:26 13:30 Temperature Pulse Rate 96 H 98 H Pulse Rate [ 95 H 97 H Anterior Bilateral Throughout] Pulse Rate [ 95 H 97 H Bilateral Throughout] Pulse Rate [ From Monitor] Respiratory 25 H 21 Rate Respiratory 30 H 30 H Rate [Anterior Bilateral Throughout] Respiratory 30 H 30 H Rate [Bilateral Throughout] Blood Pressure 116/72 112/72 O2 Sat by Pulse 91 90 Oximetry 07/15/18 07/15/18 07/15/18 13:45 14:00 14:15 Temperature Pulse Rate 99 H 98 H 99 H Pulse Rate [ Anterior Bilateral Throughout] Pulse Rate [ Bilateral Throughout] Pulse Rate [ From Monitor] Respiratory 17 13 24 Rate Respiratory Rate [Anterior Bilateral Throughout] Respiratory Rate [Bilateral Throughout] Blood Pressure 110/71 121/71 103/68 O2 Sat by Pulse 93 94 Oximetry 07/15/18 07/15/18 07/15/18 14:30 14:45 15:00 Temperature Pulse Rate 101 H 102 H 104 H Pulse Rate [ Anterior Bilateral Throughout] Pulse Rate [ Bilateral Throughout] Pulse Rate [ From Monitor] Respiratory 15 15 18 Rate Respiratory Rate [Anterior Bilateral Throughout] Respiratory Rate [Bilateral Throughout] Blood Pressure 111/65 103/67 118/78 O2 Sat by Pulse 93 92 95 Oximetry CBC and BMP: 07/18/18 01:10 07/16/18 07:21 ABG, PT/INR, D-dimer: ABG POC ABG pH 7.325 (7.35-7.45) L 07/14/18 14:33 POC ABG pCO2 42.6 (35-45) 07/14/18 14:33 POC ABG pO2 75 (80-105) L 07/14/18 14:33 POC ABG HCO3 22.2 (22-26 mml/L) 07/14/18 14:33 POC ABG Total CO2 24 (23-27mmol/L) 07/14/18 14:33 POC ABG O2 Sat 94 07/14/18 14:33 PT/INR, D-dimer D-Dimer 1298.70 ng/mlDDU (0-234) H 07/11/18 15:04 Abnormal lab findings: Abnormal Labs 07/11/18 07/11/18 07/11/18 14:06 14:06 15:04 RBC 3.30 L Hgb 9.6 L Hct 28.7 L RDW Lymph % (Auto) Lymph # Seg Neutrophils % D-Dimer 1298.70 H POC ABG pH POC ABG pCO2 POC ABG pO2 Sodium 132 L Carbon Dioxide Creatinine 0.6 L Glucose 103 H POC Glucose Calcium 7.3 L Lactate Dehydrogenase C-Reactive Protein Albumin 2.1 L 07/11/18 07/11/18 07/12/18 17:36 22:15 00:41 RBC Hgb Hct RDW Lymph % (Auto) Lymph # Seg Neutrophils % D-Dimer POC ABG pH 7.289 L 7.302 L POC ABG pCO2 POC ABG pO2 66 L Sodium Carbon Dioxide Creatinine Glucose POC Glucose Calcium Lactate Dehydrogenase 591 H C-Reactive Protein Albumin 07/12/18 07/12/18 07/13/18 05:37 19:29 04:03 RBC Hgb Hct RDW Lymph % (Auto) Lymph # Seg Neutrophils % D-Dimer POC ABG pH 7.275 L 7.254 L POC ABG pCO2 47.1 H 49.2 H POC ABG pO2 Sodium Carbon Dioxide Creatinine Glucose POC Glucose Calcium Lactate Dehydrogenase 731 H C-Reactive Protein Albumin 07/13/18 07/13/18 07/13/18 05:46 12:23 18:31 RBC Hgb Hct RDW Lymph % (Auto) Lymph # Seg Neutrophils % D-Dimer POC ABG pH POC ABG pCO2 POC ABG pO2 Sodium Carbon Dioxide Creatinine Glucose POC Glucose 68 L 106 H 112 H Calcium Lactate Dehydrogenase C-Reactive Protein Albumin 07/14/18 07/14/18 07/14/18 04:19 05:36 05:36 RBC 2.99 L Hgb 8.8 L Hct 25.7 L RDW 15.5 H Lymph % (Auto) Lymph # Seg Neutrophils % D-Dimer POC ABG pH 7.337 L POC ABG pCO2 POC ABG pO2 Sodium 135 L Carbon Dioxide 21 L Creatinine 0.7 L Glucose 123 H POC Glucose Calcium 8.2 L Lactate Dehydrogenase C-Reactive Protein Albumin 07/14/18 07/14/18 07/14/18 12:14 14:33 17:18 RBC Hgb Hct RDW Lymph % (Auto) Lymph # Seg Neutrophils % D-Dimer POC ABG pH 7.325 L POC ABG pCO2 POC ABG pO2 75 L Sodium Carbon Dioxide Creatinine Glucose POC Glucose 174 H 114 H Calcium Lactate Dehydrogenase C-Reactive Protein Albumin 07/15/18 07/15/18 07/15/18 00:17 12:29 12:29 RBC 2.64 L Hgb 7.5 L Hct 22.9 L RDW 15.4 H Lymph % (Auto) 7.0 L Lymph # 0.4 L Seg Neutrophils % 89.6 H D-Dimer POC ABG pH POC ABG pCO2 POC ABG pO2 Sodium Carbon Dioxide Creatinine 0.6 L Glucose 124 H POC Glucose 113 H Calcium 7.3 L Lactate Dehydrogenase C-Reactive Protein Albumin 07/15/18 14:09 RBC Hgb Hct RDW Lymph % (Auto) Lymph # Seg Neutrophils % D-Dimer POC ABG pH POC ABG pCO2 POC ABG pO2 Sodium Carbon Dioxide Creatinine Glucose POC Glucose Calcium Lactate Dehydrogenase C-Reactive Protein 2.70 H Albumin Chest x-ray: image reviewed (ETT in position,a little low but not in RM, bilateral alveolar infiltrates)
[2018-07-15 15:57] LABS: Bilirubin,Urine NEG (Negative); Blood,Urine NEG (Negative); Color,Urine Yellow (Yellow); Urobilinogen,Urine < 2.0 mg/dL (<2.0)
[2018-07-16] MEDS: DIPRIVAN 10 MG/ML 1,000 MG/100 ML BOTTLE IV SCH ×4 (00:15→22:09)
[2018-07-16] MEDS: BACTRIM 300 MG in D5W 500 ML IV SCH ×4 (00:16→20:18)
[2018-07-16] MEDS: fentaNYL DRIP Premix 2,000 MCG/100 ML BAG IV SCH ×3 (03:33→21:13)
[2018-07-16] MEDS: DUONEB *Not for PRN Use IH SCH ×4 (03:48→20:00)
[2018-07-16] MEDS: MAXIPIME/NS 2 GM/100 ML 2 GM/100 ML BAG IV SCH ×3 (06:12→22:11)
[2018-07-16] MEDS: NACL 0.9% 1000 ML 1,000 ML IV SCH ×2 (06:28→22:45)
[2018-07-16 07:37] LABS: Hematocrit 21.5 % (35.5-45.6); Hemoglobin 7.2 gm/dl (11.8-15.2); Mean Corpuscular HGB Conc 34 % (32-34); Mean Corpuscular Volume 87 fl (84-94); Platelet Count 253 K/mm3 (140-440); Red Blood Count 2.48 M/mm3 (3.65-5.03); Red Cell Distribution Width 15.7 % (13.2-15.2)
[2018-07-16] MEDS: SODIUM CHLORIDE FLUSH SYRINGE 10 ML IV SCH ×3 (07:43→22:18)
--- NOTE | 2018-07-16 08:00 | XRay Report ---
PROCEDURE: XR CHEST 1V AP TECHNIQUE: Chest radiograph single view. HISTORY: follow up respiratory failure COMPARISONS: 07/15/2018 . FINDINGS: Heart: Normal. Mediastinum/Vessels: Normal. Lungs/Pleural space: There are bilateral lower lobe infiltrates. These are slightly worse than the p rior study.. There is no pleural effusion or pneumothorax. Bony thorax: No acute osseous abnormality. Life support devices: Endotracheal tube is in the mid trachea. NG tube is in the stomach. There is a right-sided PICC line. The tip is in the superior vena cava.. IMPRESSION: Heart size is normal. There are bilateral lower lobe infiltrates. These are slightly worse than the prior study.. There is no pleural effusion or pneumothorax. Endotracheal tube is in the mid trachea. NG tube is in the stomach. There is a right-sided PICC line. The tip is in the superior vena cava.. This document is electronically signed by Dieudonne Mack MD., Jul 16 2018 07:58:27 AM ET
[2018-07-16 08:15] LABS: BUN/Creatinine Ratio 18; Blood Urea Nitrogen 11 mg/dL (9-20); Calcium 7.5 mg/dL (8.4-10.2); Hemolysis Index 1
[2018-07-16] MEDS: SOLU-Medrol IV SCH ×3 (09:00→22:23)
[2018-07-16] MEDS: ZYVOX 600MG/300ML 600 MG/300 ML BAG IV SCH ×2 (09:00→22:24)
[2018-07-16] MEDS: LOVENOX SUB-Q SCH (09:00)
[2018-07-16] MEDS: PEPCID PO SCH ×2 (09:00→22:23)
[2018-07-16] MEDS: COLACE PO SCH ×2 (09:00→22:14)
[2018-07-16] MEDS ORDERED: PEPCID PO SCH (10:00)
--- NOTE | 2018-07-16 10:05 | Progress Note ---
Assessment and Plan Assessment and plan: 37 YO Male with HIV noncompliant with Antiretroviral Medication FOR THE PAST 6 MONTHS, Severe Malnutrition, Nicotine Dependence presents to ED for evaluation. Pt is in the custody of law enforcement. Pt states that he has experienced shortness of breath, generalized weakness, and productive cough over the past 2 weeks with progressively worsening symptoms over the past 1 week. Pt states that he just "feels weak, and tired" and has not taken his HIV medication for at least 6 months prior to his incarceration. Pt also reports 40lbs unintentional weight loss over the past 2 months and intermittent loose stools over the past 2 weeks. Pt denies fever, chills, CP, Palpitations, syncope, Trauma, foot drop, seizures, Vertigo, Blurred Vision, Dizziness, or known ill contacts. No prior admissions for review. No medication listed for reconciliation at time of admission. Pt admitted to [facility] and initiated on Pneumonia protocol. Pt treated with nebulizer therapy in ED with improvement in symptoms. In the ED, temp 99.8, HR 104, R 29, O2 sat 77%, BP 94/50. WBC 6.1, Hg 9.6, Plat 398. Creat 0.6. Blood culture 07/11/2018 no growth today. Sputum culture 07/11/2018 no growth today. Chest CT showed bilateral patchy and somewhat confluent alveolar infiltrates and interstitial infiltrates. No effusions. Mild cardiomegaly. Patient required emergent intubation following admission to the [facility]. CT head: No CT evidence of acute intracranial abnormality. Pansinus disease CTA CHEST: IMPRESSION: No pulmonary embolus. Bilateral patchy and somewhat confluent alveolar infiltrates and interstitial infiltrates. Noeffusions. Mild cardiomegaly. Runnings likely reflect a viral pneumonia or inhalational process CXR;.IMPRESSION: Heart size is normal.There are bilateral lower lobe infiltrate s. These are slightly worse than the prior study.. There is no pleural effusion or pneumothorax. Endotracheal tube is in the mid trachea. NG tube is in the stomach. There is a right-sided PICC line. The tip is in the superior vena cava.. * Patient unfortunately has remained on full ventilatory support and very resistant hypoxia currently on high level FIO2. 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) Diarrhea Hyponatermia Syndrome Severe Protein Malnutrition AIDS ANEMIA OF CHRONIC DISEASE Elevated d/DIMER- NO PE noted Nicotine dependance PLAN -Continue supportive care, Still Hypoxic and increased respiratory rate and tachycardia despite sedation -Adjust steroids Upwards -Will give a unit of blood to see if this will help with his pulmonary status -Critical care adjust pulmonary mechanics -Follow up labs and ID recommendations -Intermittent labs to monitor H/H -Pulmonary input noted, Aspiration precautions and VAP bundles in place -Continue coverage for opportunistic infection -Monitor CD4, HIV-viral load -Continue IV seteroids, LABA, SANDHYA -Agree with bactrim IV and stop the PO -Discussed with Physician at the [facility] and will keep updated. STILL REQUIRE RESTRAINTS The high probability of a clinically significant, sudden or life threatening deterioration of the [pulmonary, system(s) required my full and direct attention, intervention and personal management. The aggregate critical care time was [50] minutes. This time is in addition to time spent performing repo rted procedures but includes the following: [x] Data Review and interpretation [x] Patient assessment and monitoring of vital signs [x] Documentation [x] Medication orders and management . History Interval history: Patient seen and examined, remains on mechanical ventilation, waxing and weaning mentation, still requiring 100% FIO2. Hospitalist Physical - Physical exam Narrative exam: General appearance: Present: cachectic, disheveled, MODERATE distress on mechanical ventilation - EENT Eyes: Present: PERRL ENT: hearing intact, clear oral mucosa - Neck Neck: Present: supple, normal ROM - Respiratory Respiratory effort: bronchiovesicular sounds Respiratory: bilateral: diminished, rhonchi - Cardiovascular Heart Sounds: Present: S1 & S2. tachycardia Absent: rub, click - Extremities Extremities: pulses symmetrical, No edema Peripheral Pulses: within normal limits - Abdominal General gastrointestinal: Present: soft, non-tender, non-distended, normal bowel sounds Male genitourinary: Present: normal - Integumentary Integumentary: Present: clear, dry, clammy, decreased turgor - Musculoskeletal Musculoskeletal: generalized weakness - Psychiatric Psychiatric: appropriate mood/affect, intact judgment & insight, memory intact - Neurologic Neurologic: CNII-XII intact, no focal deficits, moves all extremities, no gait normal - Constitutional Vitals: Temp Pulse Resp BP Pulse Ox 98.6 F 129 H 32 H 123/74 88 07/16/18 08:00 07/16/18 09:47 07/16/18 09:47 07/16/18 09:39 07/16/18 09:39 General appearance: Present: mild distress, cachectic, disheveled Results - Labs CBC & Chem 7: 07/16/18 07:21 07/16/18 07:21 Labs: Laboratory Last Values WBC 6.1 K/mm3 (4.5-11.0) 07/16/18 07:21 RBC 2.48 M/mm3 (3.65-5.03) L 07/16/18 07:21 Hgb 7.2 gm/dl (11.8-15.2) L 07/16/18 07:21 Hct 21.5 % (35.5-45.6) L 07/16/18 07:21 MCV 87 fl (84-94) 07/16/18 07:21 MCH 29 pg (28-32) 07/16/18 07:21 MCHC 34 % (32-34) 07/16/18 07:21 RDW 15.7 % (13.2-15.2) H 07/16/18 07:21 Plt Count 253 K/mm3 (140-440) 07/16/18 07:21 Lymph % (Auto) 7.0 % (13.4-35.0) L 07/15/18 12:29 [place] % (Auto) 3.2 % (0.0-7.3) 07/15/18 12:29 Eos % (Auto) 0.1 % (0.0-4.3) 07/15/18 12:29 Baso % (Auto) 0.1 % (0.0-1.8) 07/15/18 12:29 Lymph # 0.4 K/mm3 (1.2-5.4) L 07/15/18 12:29 [place] # 0.2 K/mm3 (0.0-0.8) 07/15/18 12:29 Eos # 0.0 K/mm3 (0.0-0.4) 07/15/18 12:29 Baso # 0.0 K/mm3 (0.0-0.1) 07/15/18 12:29 Seg Neutrophils % 89.6 % (40.0-70.0) H 07/15/18 12:29 Seg Neutrophils # 5.7 K/mm3 (1.8-7.7) 07/15/18 12:29 D-Dimer 1298.70 ng/mlDDU (0-234) H 07/11/18 15:04 POC ABG pH 7.282 (7.35-7.45) L 07/16/18 04:46 POC ABG pCO2 52.6 (35-45) H 07/16/18 04:46 POC ABG pO2 63 (80-105) L 07/16/18 04:46 POC ABG HCO3 24.8 (22-26 mml/L) 07/16/18 04:46 POC ABG Total CO2 26 (23-27mmol/L) 07/16/18 04:46 POC ABG O2 Sat 88 07/16/18 04:46 POC ABG Base Excess -2 ((-2) - (+3)mmol/L) 07/16/18 04:46 FiO2 100 % 07/16/18 04:46 Sodium 136 mmol/L (137-145) L 07/16/18 07:21 Potassium 4.0 mmol/L (3.6-5.0) 07/16/18 07:21 Chloride 100.6 mmol/L (98-107) 07/16/18 07:21 Carbon Dioxide 27 mmol/L (22-30) 07/16/18 07:21 Anion Gap 12 mmol/L 07/16/18 07:21 BUN 11 mg/dL (9-20) 07/16/18 07:21 Creatinine 0.6 mg/dL (0.8-1.5) L 07/16/18 07:21 Estimated GFR > 60 ml/min 07/16/18 07:21 BUN/Creatinine Ratio 18 % 07/16/18 07:21 Glucose 118 mg/dL (75-100) H 07/16/18 07:21 POC Glucose 97 (70-105) 07/15/18 05:46 Lactic Acid 1.80 mmol/L (0.7-2.0) 07/11/18 21:01 Calcium 7.5 mg/dL (8.4-10.2) L 07/16/18 07:21 Total Bilirubin 0.20 mg/dL (0.1-1.2) 07/11/18 14:06 AST 30 units/L (5-40) 07/11/18 14:06 ALT 11 units/L (7-56) 07/11/18 14:06 Alkaline Phosphatase 50 units/L (35-129) 07/11/18 14:06 Lactate Dehydrogenase 731 units/L (91-180) H 07/12/18 19:29 Troponin T < 0.010 ng/mL (0.00-0.029) 07/11/18 15:04 C-Reactive Protein 2.70 mg/dL (0.00-1.30) H 07/15/18 14:09 NT-Pro-B Natriuret Pep 249.7 pg/mL (0-450) 07/11/18 15:04 Total Protein 6.3 g/dL (6.3-8.2) 07/11/18 14:06 Albumin 2.1 g/dL (3.9-5) L 07/11/18 14:06 Albumin/Globulin Ratio 0.5 % 07/11/18 14:06 Urine Color Yellow (Yellow) 07/15/18 14:14 Urine Turbidity Clear (Clear) 07/15/18 14:14 Urine pH 6.0 (5.0-7.0) 07/15/18 14:14 Ur Specific [place] 1.015 (1.003-1.030) 07/15/18 14:14 Urine Protein 30 mg/dl mg/dL (Negative) 07/15/18 14:14 Urine Glucose (UA) Neg mg/dL (Negative) 07/15/18 14:14 Urine Ketones Neg mg/dL (Negative) 07/15/18 14:14 Urine Blood Neg (Negative) 07/15/18 14:14 Urine Nitrite Neg (Negative) 07/15/18 14:14 Urine Bilirubin Neg (Negative) 07/15/18 14:14 Urine Urobilinogen < 2.0 mg/dL (<2.0) 07/15/18 14:14 Ur Leukocyte Esterase Neg (Negative) 07/15/18 14:14 Urine WBC (Auto) 2.0 /HPF (0.0-6.0) 07/15/18 14:14 Urine RBC (Auto) 6.0 /HPF (0.0-6.0) 07/15/18 14:14 RPR Nonreactive (Nonreactive) 07/12/18 23:38 Hepatitis A IgM Ab Non-reactive (NonReactive) 07/12/18 23:38 Hep Bs Antigen Non-reactive (Negative) 07/12/18 23:38 Hep B Core IgM Ab Non-reactive (NonReactive) 07/12/18 23:38 Hepatitis C Antibody Non-reactive (NonReactive) 07/12/18 23:38 Active Medications - Current Medications Current Medications: Generic Name Dose Route Start Last Admin Trade Name Freq PRN Reason Stop Dose Admin Acetaminophen 650 mg 07/12/18 18:07 07/12/18 18:22 Tylenol FEEDTUBE 650 mg Q6H PRN Administration Non Cardiac Pain or Temp>100.5 Albuterol 2.5 mg 07/11/18 17:16 Proventil IH Q3HRT PRN Shortness Of Breath Albuterol/Ipratropium 1 ampul 07/13/18 14:00 07/16/18 09:47 Duoneb *Not For Prn Use* IH 1 ampul Q6HRT HE Administration Lipase/Protease/Amylase 1 each 07/13/18 12:[address] 10,500 Unit FEEDTUBE PRN PRN For Clogged Feeding Tube Docusate Sodium 100 mg 07/15/18 12:00 07/16/18 09:00 Colace PO 100 mg BID HE Administration Enoxaparin Sodium 40 mg 07/12/18 10:00 07/16/18 09:00 Lovenox SUB-Q 40 mg QDAY@1000 HE Administration Famotidine 20 mg 07/16/18 22:00 Pepcid PO BID HE Fentanyl 50 mcg 07/12/18 00:26 Sublimaze IV Q10MIN PRN ANALGESIA Hydrophilic Ointment 1 applic 07/12/18 13:30 Vaseline Lip Therapy TP Q2HR PRN Dry Lips Trimethoprim/Sulfamethoxazole 518.75 mls @ 350 mls/hr 07/11/18 18:00 07/16/18 06:12 300 mg/ Dextrose IV 350 mls/hr Q6HR HE Administration Protocol Sodium Chloride 1,000 mls @ 125 mls/hr 07/11/18 18:00 07/16/18 06:28 Nacl 0.9% 1000 Ml IV 125 mls/hr DIRECT HE Administration Fentanyl Citrate 2,000 mcg in 100 mls @ 3.065 mls/hr 07/12/18 01:00 07/16/18 03:33 Fentanyl Drip Premix IV 3 mcg/kg/hr TITR HE 9.195 mls/hr Administration Protocol 1 MCG/KG/HR Propofol 1,000 mg in 100 mls @ 1.839 mls/hr 07/12/18 01:00 07/16/18 08:51 Diprivan 10 Mg/Ml IV 40 mcg/kg/min TITR HE 14.712 mls/hr Administration Protocol 5 MCG/KG/MIN Dopamine HCl/Dextrose 800 mg in 250 mls @ 2.299 mls/hr 07/12/18 22:00 07/15/18 14:28 Intropin Drip 800 Mg/D5w 250 Ml IV 0 mcg/kg/min TITR HE 0 mls/hr Titration Protocol 2 MCG/KG/MIN Cefepime HCl 2 gm in 100 mls @ 200 mls/hr 07/15/18 14:00 07/16/18 06:12 Maxipime/Ns 2 Gm/100 Ml IV 200 mls/hr Q8HR HE Administration Protocol Linezolid 600 mg in 300 mls @ 300 mls/hr 07/15/18 14:00 07/16/18 09:00 Zyvox 600mg/300ml IV 300 mls/hr Q12HR HE Administration Protocol Methylprednisolone Sodium Succinate 40 mg 07/12/18 10:00 07/16/18 09:00 Solu-Medrol IV 40 mg Q24HR HE Administration Multi-Ingred Cream/Lotion/Oil/Oint 1 applic 07/12/18 13:30 Artificial Tears Ophth Oint OU Q4HR PRN Dry Eye(s) Quetiapine Fumarate 200 mg 07/15/18 22:00 07/15/18 21:47 Seroquel PO 200 mg QHS HE Administration Simple Syrup 15 ml 07/13/18 12:30 Simple Syrup FEEDTUBE PRN PRN Hypoglycemia Simple Syrup 30 ml 07/13/18 12:30 Simple Syrup FEEDTUBE PRN PRN Hypoglycemia Sodium Bicarbonate 325 mg 07/13/18 12:30 Sodium Bicarbonate FEEDTUBE PRN PRN For Clogged Feeding Tube Sodium Chloride 10 ml 07/11/18 22:00 07/16/18 09:00 Sodium Chloride Flush Syringe 10 Ml IV 10 ml BID HE Administration Sodium Chloride 10 ml 07/11/18 17:16 Sodium Chloride Flush Syringe 10 Ml IV PRN PRN LINE FLUSH Nutrition/Malnutrition Assess - Dietary Evaluation Nutrition/Malnutrition Findings: Nutrition Notes Start: 07/12/18 09:38 Freq: Status: Active Protocol: Document 07/13/18 09:37 EB (Rec: 07/13/18 09:42 EB [id number]) Co-Sign 07/13/18 09:37 LP Nutrition Notes Need for Assessment generated from: MD Order Initial or Follow up Reassessment Other Pertinent Diagnosis HIV/AIDS, SOB, weakness, nicotine dependence, PCP, hyponatremia syndrome Current Diet No diet ordered Labs/Tests No recent labs Pertinent Medications Solu-medrol Diprivan Height 5 ft 11 in Weight 61.3 kg [place] Body Weight (kg) 78.18 BMI 18.8 Weight change and time frame 40# unintentional weight loss in 2 months Weight Status Appropriate Subjective/Other Information RD consulted for TF. Percent of energy/protein needs met: 0%/0% Burn Absent Trauma Absent Current % PO Negligible #2 Nutrition Diagnosis Inadequate oral intake Etiology on [facility] vent As Evidenced by Signs and Symptoms NPO status #1 Nutrition Diagnosis Malnutrition Diagnosis Progress(for reassessment Continues documentation) Is patient on ventilator? Yes Is Patient Ambulatory and/or Out of Bed No REE-([facility]-confined to bed) [phone] Calculation Used for Recommendations [facility] Additional Notes Protein: 74- 92 g (1.2-1.5 g/ kg) Fluid: 1 ml/kcal Nutrition Intervention Nutrition Support: Vital 1.2 at 65 mL/hr Flush 100 mL q 4 hr Kcal 1,872 Protein (gm) 117 Carbohydrates (gm) 173 Fat (gm) 84 Fluid (mL) 1,265 Fiber (gm) 8 Goal #1 TF start Goal #2 TF to meet at least 80% of [place] and [place] needs Anticipated Discharge Needs: Unable to determine at this time Follow-Up By: 07/16/18 Additional Comments F/u: TF start and tolerance
--- NOTE | 2018-07-16 11:20 | Progress Note ---
Assessment and Plan Cultures: Blood culture 07/11/2018 no growth today. Sputum culture 07/11/2018 usual resp [place] Cryptococcal antigen : negative MRSA PCR: positive Blood culture 07/15/2018: in progress Urine culture 07/15/2018: no growth in 24 hours Assessment: 37 y/o male currently in senior care with history of HIV infection of unknown duration, noncompliant with antiretroviral medication, severe malnutrition; admitted on 07/11/2018, brought by law enforcement, due to 2-week history of shortness of breath, generalized weakness and productive cough: 1) Sepsis with new septic shock, off pressors x 24h. No fever. Etiology most likely pneumonia. Hepatitis panel negative. RPR nonreactive. CRP 2.7. Continue Cefepime and Linezolid. 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 Sputum culture 07/11/2018 no growth today. Chest CT showed bilateral patchy and somewhat confluent alveolar infiltrates and interstitial infiltrates. No effusions. Mild cardiomegaly. 3) HIV, presumed AIDS: Patient has not taken his HIV medication for at least 6 months prior due to his incarceration. On admission he reported 40lbs unintentional weight loss for 2 months and intermittent loose stools over the past 2 weeks. Patient is currently intubated on the ventilator, unable to provide a history. 4) Diarrhea: ? possible opportunistic infection. 5) Acute respiratory failure: not better, from pneumonia. worsening 6) Anemia Recommendations: -start ganciclovir 500 mg IV empirically until CMV is r/o -Continue Cefepime 2gms IV every 8 hours, D2 -Continue Linezolid 600mg every 12 hours, D2 - continue bactrim IV and solumedrol IV D6 - for severe PJP pneumonia with hypoxemia - follow-up repeat blood cultures -follow-up urine cultures -follow-up sputum for PJP DFA - f/u CD4, HIV-viral load -Order new blood culture, sputum culture and Urine culture -follow-up Procalcitonin -follow-up CMV DNA PCR [employer] M: [id number] O:[phone] Subjective Date of service: 07/16/18 Principal diagnosis: Acute hypoxemic resp failure; Bilateral pneumonia ? PJP; HIV/AIDS Interval history: Patient seen and examined. Asleep, mostly unresponsive. mild distress observed. Objective - Exam Narrative Exam: General appearance: Asleep. Not easily arousable. mild distress observed. Eyes: anicteric sclerae, moist conjunctivae; no lid-lag; PERRLA HENT: Atraumatic; oropharynx +ETT +NGT Neck: Trachea midline; supple, no thyromegaly or lymphadenopathy Lungs: ryland crackles CV: tachycardic Abdomen: Soft, non-tender; no masses or hepatosplenomegaly Extremities: No peripheral edema or extremity lymphadenopathy Skin: Normal temperature, turgor and texture; no rash, ulcers or subcutaneous nodules Psych: calm Neuro: asleep, no easily arousable. - Constitutional Vitals: Vital Signs Temp Pulse Resp BP Pulse Ox 98.6 F 129 H 31 H 123/74 88 07/16/18 08:00 07/16/18 09:59 07/16/18 09:59 07/16/18 09:39 07/16/18 09:39 Temperature -Last 24 Hours Temperature 98.6 F Temperature 98.9 F Temperature 99.3 F Temperature 97.9 F Temperature 96.4 F Temperature 97.8 F - Labs CBC & Chem 7: 07/16/18 07:21 07/16/18 07:21 Labs: Abnormal lab results 07/15/18 07/15/18 07/15/18 Range/Units 12:29 12:29 14:09 RBC 2.64 L (3.65-5.03) M/mm3 Hgb 7.5 L (11.8-15.2) gm/dl Hct 22.9 L (35.5-45.6) % RDW 15.4 H (13.2-15.2) % Lymph % (Auto) 7.0 L (13.4-35.0) % Lymph # 0.4 L (1.2-5.4) K/mm3 Seg Neutrophils % 89.6 H (40.0-70.0) % POC ABG pH (7.35-7.45) POC ABG pCO2 (35-45) POC ABG pO2 (80-105) Sodium (137-145) mmol/L Creatinine 0.6 L (0.8-1.5) mg/dL Glucose 124 H (75-100) mg/dL Calcium 7.3 L (8.4-10.2) mg/dL C-Reactive Protein 2.70 H (0.00-1.30) mg/dL 07/16/18 07/16/18 07/16/18 Range/Units 04:46 07:21 07:21 RBC 2.48 L (3.65-5.03) M/mm3 Hgb 7.2 L (11.8-15.2) gm/dl Hct 21.5 L (35.5-45.6) % RDW 15.7 H (13.2-15.2) % Lymph % (Auto) (13.4-35.0) % Lymph # (1.2-5.4) K/mm3 Seg Neutrophils % (40.0-70.0) % POC ABG pH 7.282 L (7.35-7.45) POC ABG pCO2 52.6 H (35-45) POC ABG pO2 63 L (80-105) Sodium 136 L (137-145) mmol/L Creatinine 0.6 L (0.8-1.5) mg/dL Glucose 118 H (75-100) mg/dL Calcium 7.5 L (8.4-10.2) mg/dL C-Reactive Protein (0.00-1.30) mg/dL
[2018-07-16] MEDS: VERSED IV PRN (13:44)
[2018-07-16] MEDS: TYLENOL FEEDTUBE PRN (13:45)
--- NOTE | 2018-07-16 15:08 | Progress Note ---
Assessment and Plan Acute hypoxemic respiratory failure, on mechanical ventilatory support. Bilateral pneumonia, high suspicion for Pneumocystis jiroveci pneumonia. Human immunodeficiency virus/acquired immunodeficiency syndrome,noncompliant wit h therapy. Hyponatremia. Severe protein calorie malnutrition. Elevated D-dimer. Tobacco use disorder. - continue to wean supplemental oxygen to keep O2 sats 88-90% acutely - increased Peep to 14 cm H2O - changed Seroquel to bid dosing to spare IV sedatives - stopped Versed drip and will gve prn pushes - follow sputum cytology / PJP stain - continue current set rate at 30/min on MVS and TV 350 mls (LTVV /4-6mls/kg IBW) - ARDS ventilatory strategies with low TV - daily SAT's & SBT assessment as tolerated - sedation target for RASS 0 to -1 - continue bronchodilators with pulmonary hygiene per RT - continue GI & VTE prophylaxis - Lung protective strategies - Daily ABGs/CXR for now - VAP bundle addressed - Tracheal aspirate, blood cultures are negative to date - continue Anti-infectives and ART per ID rec's - Chambers catheter placed for acute urinary retention. - Continue full MVS - Monitor renal indices closely - Avoid nephrotoxic agents, adjust all medications for CrCL - Strict intake and output monitoring - Tube feedings as tolerated - Accuchecks with glycemic control. Target glucose of 140-180 mg/dL - Maintenance of sleep -wake cycle - Mobility as tolerated by hemodynamics - Influenza and pneumonia vaccination per protocol ..care plan discussed at length with RN/RT at the bedside ..discussed in ICU-IDT rounds PROGNOSIS: GUARDED CONDITION: CRITICAL CODE STATUS: FULL CODE The high probability of a clinically significant, sudden or life-threatening deterioration of the [respiratory, neurology, renal] system(s) required my full and direct attention, intervention and personal management. The aggregate critical care time was [32] minutes without overlap. Time includes spent on; [x] Data Review and interpretation [x] Patient assessment and monitoring of vital signs [x] Documentation [x] Medication orders and management Subjective Date of service: 07/16/18 Principal diagnosis: Acute hypoxemic resp failure; Bilateral pneumonia ? PJP; HIV/AIDS Interval history: Patient is seen today for: Acute hypoxemic respiratory failure, on mechanical ventilatory support; Bilateral pneumonia, high suspicion for Pneumocystis jiroveci pneumonia; Human immunodeficiency virus/acquired immunodeficiency syndrome,noncompliant with therapy; Hyponatremia; Severe protein calorie malnutrition. Seen and examined at bedside; 24-hour events reviewed; nursing and respiratory care staff consulted; no adverse overnight events reported to me; remains on MVS; remains hypoxemic; FiO2 actually back up to 100%; sedated; appropriate during SAT's; no emesis or overt aspiration. Objective Vital Signs - 12hr 07/16/18 07/16/18 07/16/18 03:15 03:30 03:45 Temperature Pulse Rate 130 H 130 H 122 H Pulse Rate [ Anterior Bilateral Throughout] Pulse Rate [ From Monitor] Respiratory 28 H 23 30 H Rate Respiratory Rate [Anterior Bilateral Throughout] Blood Pressure 146/88 146/80 130/81 O2 Sat by Pulse 84 89 88 Oximetry 07/16/18 07/16/18 07/16/18 03:47 04:00 04:15 Temperature 98.9 F Pulse Rate 130 H 131 H Pulse Rate [ Anterior Bilateral Throughout] Pulse Rate [ 118 H From Monitor] Respiratory 28 H 26 H 26 H Rate Respiratory Rate [Anterior Bilateral Throughout] Blood Pressure 138/79 135/83 O2 Sat by Pulse 90 90 Oximetry 07/16/18 07/16/18 07/16/18 04:30 04:45 05:00 Temperature Pulse Rate 122 H 123 H 111 H Pulse Rate [ Anterior Bilateral Throughout] Pulse Rate [ From Monitor] Respiratory 27 H 28 H 32 H Rate Respiratory Rate [Anterior Bilateral Throughout] Blood Pressure 122/78 117/76 124/75 O2 Sat by Pulse 89 91 88 Oximetry 07/16/18 07/16/18 07/16/18 05:15 05:30 05:45 Temperature Pulse Rate 115 H 118 H 114 H Pulse Rate [ Anterior Bilateral Throughout] Pulse Rate [ From Monitor] Respiratory 28 H 30 H 30 H Rate Respiratory Rate [Anterior Bilateral Throughout] Blood Pressure 131/73 122/74 120/73 O2 Sat by Pulse 89 89 91 Oximetry 07/16/18 07/16/18 07/16/18 06:00 06:15 06:31 Temperature Pulse Rate 118 H 145 H 120 H Pulse Rate [ Anterior Bilateral Throughout] Pulse Rate [ From Monitor] Respiratory 29 H 23 28 H Rate Respiratory Rate [Anterior Bilateral Throughout] Blood Pressure 114/75 122/74 45/28 O2 Sat by Pulse 90 88 92 Oximetry 05/06/19 05/06/19 05/06/19 06:45 07:00 07:15 Temperature Pulse Rate 139 H 119 H 117 H Pulse Rate [ Anterior Bilateral Throughout] Pulse Rate [ From Monitor] Respiratory 29 H 28 H 26 H Rate Respiratory Rate [Anterior Bilateral Throughout] Blood Pressure 114/75 124/80 124/80 O2 Sat by Pulse 90 96 97 Oximetry 07/16/18 07/16/18 07/16/18 07:31 07:45 08:00 Temperature 98.6 F Pulse Rate 141 H 116 H 117 H Pulse Rate [ Anterior Bilateral Throughout] Pulse Rate [ 126 H From Monitor] Respiratory 31 H 26 H 32 H Rate Respiratory Rate [Anterior Bilateral Throughout] Blood Pressure 137/89 124/80 131/86 O2 Sat by Pulse 93 94 92 Oximetry 07/16/18 07/16/18 07/16/18 08:15 08:30 08:45 Temperature Pulse Rate 126 H 123 H 118 H Pulse Rate [ Anterior Bilateral Throughout] Pulse Rate [ From Monitor] Respiratory 22 25 H 24 Rate Respiratory Rate [Anterior Bilateral Throughout] Blood Pressure 137/89 110/68 110/68 O2 Sat by Pulse 93 95 93 Oximetry 07/16/18 07/16/18 07/16/18 09:00 09:15 09:30 Temperature Pulse Rate 122 H 121 H 121 H Pulse Rate [ Anterior Bilateral Throughout] Pulse Rate [ From Monitor] Respiratory 25 H 26 H 26 H Rate Respiratory Rate [Anterior Bilateral Throughout] Blood Pressure 118/72 118/72 123/74 O2 Sat by Pulse 93 93 91 Oximetry 07/16/18 07/16/18 07/16/18 09:39 09:45 09:47 Temperature Pulse Rate 131 H 131 H Pulse Rate [ 129 H Anterior Bilateral Throughout] Pulse Rate [ From Monitor] Respiratory 28 H Rate Respiratory 32 H Rate [Anterior Bilateral Throughout] Blood Pressure 123/74 123/74 O2 Sat by Pulse 88 90 Oximetry 07/16/18 07/16/18 07/16/18 09:59 10:00 10:15 Temperature Pulse Rate 126 H 129 H Pulse Rate [ 129 H Anterior Bilateral Throughout] Pulse Rate [ From Monitor] Respiratory 28 H 27 H Rate Respiratory 31 H Rate [Anterior Bilateral Throughout] Blood Pressure 128/76 123/74 O2 Sat by Pulse 90 93 Oximetry 07/16/18 07/16/18 07/16/18 10:30 10:45 11:00 Temperature Pulse Rate 122 H 146 H 136 H Pulse Rate [ Anterior Bilateral Throughout] Pulse Rate [ From Monitor] Respiratory 28 H 35 H 25 H Rate Respiratory Rate [Anterior Bilateral Throughout] Blood Pressure 132/73 132/73 132/83 O2 Sat by Pulse 92 89 92 Oximetry 07/16/18 07/16/18 07/16/18 11:15 11:30 11:45 Temperature Pulse Rate 116 H 133 H 130 H Pulse Rate [ Anterior Bilateral Throughout] Pulse Rate [ From Monitor] Respiratory 29 H 28 H 24 Rate Respiratory Rate [Anterior Bilateral Throughout] Blood Pressure 132/83 117/78 117/78 O2 Sat by Pulse 90 92 92 Oximetry 07/16/18 07/16/18 07/16/18 12:00 12:15 12:30 Temperature 100.5 F H Pulse Rate 125 H 127 H 126 H Pulse Rate [ Anterior Bilateral Throughout] Pulse Rate [ 129 H From Monitor] Respiratory 22 22 23 Rate Respiratory Rate [Anterior Bilateral Throughout] Blood Pressure 121/79 121/79 124/75 O2 Sat by Pulse 93 93 91 Oximetry 07/16/18 07/16/18 07/16/18 12:45 13:00 13:15 Temperature Pulse Rate 126 H 124 H 129 H Pulse Rate [ Anterior Bilateral Throughout] Pulse Rate [ From Monitor] Respiratory 21 24 23 Rate Respiratory Rate [Anterior Bilateral Throughout] Blood Pressure 124/75 118/77 118/77 O2 Sat by Pulse 93 94 95 Oximetry 07/16/18 07/16/18 13:48 14:44 Temperature Pulse Rate 131 H Pulse Rate [ 132 H Anterior Bilateral Throughout] Pulse Rate [ From Monitor] Respiratory Rate Respiratory 33 H Rate [Anterior Bilateral Throughout] Blood Pressure 114/75 O2 Sat by Pulse 92 Oximetry Constitutional: appears uncomfortable, other (young AAM; normocephalic and atraumatic) Eyes: non-icteric ENT: oropharynx moist, other (ETT 23 cm SHONA) Neck: supple, no lymphadenopathy, no JVD Effort: mildly labored Ascultation: Bilateral: diminished breath sounds, rales Percussion: Bilateral: not dull Cardiovascular: regular rate and rhythm Gastrointestinal: normoactive bowel sounds, soft, non-tender, non-distended Integumentary: normal Extremities: no cyanosis, no edema, pulses normal, no ischemia or petechiae Neurologic: normal mental status, non-focal exam, pupils equal and round, CN II- XII normal, motor strength normal and Psychiatric: anxious CBC and BMP: 07/16/18 07:21 07/16/18 07:21 ABG, PT/INR, D-dimer: ABG POC ABG pH 7.282 (7.35-7.45) L 07/16/18 04:46 POC ABG pCO2 52.6 (35-45) H 07/16/18 04:46 POC ABG pO2 63 (80-105) L 07/16/18 04:46 POC ABG HCO3 24.8 (22-26 mml/L) 07/16/18 04:46 POC ABG Total CO2 26 (23-27mmol/L) 07/16/18 04:46 POC ABG O2 Sat 88 07/16/18 04:46 PT/INR, D-dimer D-Dimer 1298.70 ng/mlDDU (0-234) H 07/11/18 15:04 Abnormal lab findings: Abnormal Labs 07/11/18 07/11/18 07/11/18 14:06 14:06 15:04 RBC 3.30 L Hgb 9.6 L Hct 28.7 L RDW Lymph % (Auto) Lymph # Seg Neutrophils % D-Dimer 1298.70 H POC ABG pH POC ABG pCO2 POC ABG pO2 Sodium 132 L Carbon Dioxide Creatinine 0.6 L Glucose 103 H POC Glucose Calcium 7.3 L Lactate Dehydrogenase C-Reactive Protein Albumin 2.1 L 07/11/18 07/11/18 07/12/18 17:36 22:15 00:41 RBC Hgb Hct RDW Lymph % (Auto) Lymph # Seg Neutrophils % D-Dimer POC ABG pH 7.289 L 7.302 L POC ABG pCO2 POC ABG pO2 66 L Sodium Carbon Dioxide Creatinine Glucose POC Glucose Calcium Lactate Dehydrogenase 591 H C-Reactive Protein Albumin 07/12/18 07/12/18 07/13/18 05:37 19:29 04:03 RBC Hgb Hct RDW Lymph % (Auto) Lymph # Seg Neutrophils % D-Dimer POC ABG pH 7.275 L 7.254 L POC ABG pCO2 47.1 H 49.2 H POC ABG pO2 Sodium Carbon Dioxide Creatinine Glucose POC Glucose Calcium Lactate Dehydrogenase 731 H C-Reactive Protein Albumin 07/13/18 07/13/18 07/13/18 05:46 12:23 18:31 RBC Hgb Hct RDW Lymph % (Auto) Lymph # Seg Neutrophils % D-Dimer POC ABG pH POC ABG pCO2 POC ABG pO2 Sodium Carbon Dioxide Creatinine Glucose POC Glucose 68 L 106 H 112 H Calcium Lactate Dehydrogenase C-Reactive Protein Albumin 07/14/18 07/14/18 07/14/18 04:19 05:36 05:36 RBC 2.99 L Hgb 8.8 L Hct 25.7 L RDW 15.5 H Lymph % (Auto) Lymph # Seg Neutrophils % D-Dimer POC ABG pH 7.337 L POC ABG pCO2 POC ABG pO2 Sodium 135 L Carbon Dioxide 21 L Creatinine 0.7 L Glucose 123 H POC Glucose Calcium 8.2 L Lactate Dehydrogenase C-Reactive Protein Albumin 07/14/18 07/14/18 07/14/18 12:14 14:33 17:18 RBC Hgb Hct RDW Lymph % (Auto) Lymph # Seg Neutrophils % D-Dimer POC ABG pH 7.325 L POC ABG pCO2 POC ABG pO2 75 L Sodium Carbon Dioxide Creatinine Glucose POC Glucose 174 H 114 H Calcium Lactate Dehydrogenase C-Reactive Protein Albumin 07/15/18 07/15/18 07/15/18 00:17 12:29 12:29 RBC 2.64 L Hgb 7.5 L Hct 22.9 L RDW 15.4 H Lymph % (Auto) 7.0 L Lymph # 0.4 L Seg Neutrophils % 89.6 H D-Dimer POC ABG pH POC ABG pCO2 POC ABG pO2 Sodium Carbon Dioxide Creatinine 0.6 L Glucose 124 H POC Glucose 113 H Calcium 7.3 L Lactate Dehydrogenase C-Reactive Protein Albumin 07/15/18 07/16/18 07/16/18 14:09 04:46 07:21 RBC 2.48 L Hgb 7.2 L Hct 21.5 L RDW 15.7 H Lymph % (Auto) Lymph # Seg Neutrophils % D-Dimer POC ABG pH 7.282 L POC ABG pCO2 52.6 H POC ABG pO2 63 L Sodium Carbon Dioxide Creatinine Glucose POC Glucose Calcium Lactate Dehydrogenase C-Reactive Protein 2.70 H Albumin 07/16/18 07:21 RBC Hgb Hct RDW Lymph % (Auto) Lymph # Seg Neutrophils % D-Dimer POC ABG pH POC ABG pCO2 POC ABG pO2 Sodium 136 L Carbon Dioxide Creatinine 0.6 L Glucose 118 H POC Glucose Calcium 7.5 L Lactate Dehydrogenase C-Reactive Protein Albumin Allied health notes reviewed: nursing
[2018-07-16] MEDS: CYTOVENE IV SCH (17:31)
[2018-07-16] MEDS: NACL 0.9% IV SCH (17:31)
[2018-07-17] MEDS: BACTRIM 300 MG in D5W 500 ML IV SCH ×5 (01:18→23:45)
--- NOTE | 2018-07-17 02:53 | XRay Report ---
PROCEDURE: XR CHEST 1V AP TECHNIQUE: Chest radiograph single view. HISTORY: follow up respiratory failure COMPARISONS: July 16, 2018 . FINDINGS: Heart: Normal. Mediastinum/Vessels: Normal. Lungs/Pleural space: Slightly improved infiltrates in both lower lungs. No effusion or pneumothorax. Bony thorax: No acute osseous abnormality. Life support devices: The endotracheal tube ends 5 cm above the quan. A nasogastric tube ends below the hemidiaphragms. Right PICC catheter ends in the SVC. IMPRESSION: Improved infiltrates in both lower lungs. Tubes and lines are properly positioned.. This document is electronically signed by Ava Corley DO., Jul 17 2018 02:51:45 AM ET
[2018-07-17] MEDS: NACL 0.9% IV SCH ×2 (03:44→15:00)
[2018-07-17] MEDS: CYTOVENE IV SCH ×2 (03:44→15:00)
[2018-07-17] MEDS: DUONEB *Not for PRN Use IH SCH ×4 (04:00→20:22)
[2018-07-17] MEDS: MAXIPIME/NS 2 GM/100 ML 2 GM/100 ML BAG IV SCH ×3 (06:00→21:11)
[2018-07-17] MEDS: SOLU-Medrol IV SCH ×3 (06:00→21:14)
[2018-07-17] MEDS: fentaNYL DRIP Premix 2,000 MCG/100 ML BAG IV SCH ×2 (07:00→23:44)
[2018-07-17] MEDS: DIPRIVAN 10 MG/ML 1,000 MG/100 ML BOTTLE IV SCH ×3 (07:00→20:16)
[2018-07-17] MEDS: NACL 0.9% 1000 ML 1,000 ML IV SCH (07:00)
--- NOTE | 2018-07-17 08:41 | Progress Note ---
Assessment and Plan Assessment and plan: Patient is a 37 yo man with a history of HIV and tobacco dependency who presents from [facility] to [facility] ED with sob and cough. Pt admitted to [facility] and initiated on Pneumonia protocol. In the ED, temp 99.8, HR 104, R 29, O2 sat 77%, BP 94/50. WBC 6.1, Hg 9.6, Plat 398. Creat 0.6. Blood culture 07/11/2018 no growth today. Sputum culture 07/11/2018 no growth today. Chest CT showed bilateral patchy and somewhat confluent alveolar infiltrates and interstitial infiltrates. No effusions. Mild cardiomegaly. Patient required emergent intubation following admission to the [facility]. Patient unfortunately has remained on full ventilatory support and very resistant hypoxia currently on high level FIO2.Patient unfortunately has remained on full ventilatory support and very resistant hypoxia currently on high level FIO2. * CT head: No CT evidence of acute intracranial abnormality. Pansinus disease * CTA CHEST: IMPRESSION: No pulmonary embolus. Bilateral patchy and somewhat confluent alveolar infiltrates and interstitial infiltrates. Noeffusions. Mild cardiomegaly. Runnings likely reflect a viral pneumonia or inhalational process * CXR IMPRESSION: Heart size is normal.There are bilateral lower lobe infiltrates. These are slightly worse than the prior study.. There is no pleural effusion or pneumothorax. Endotracheal tube is in the mid trachea. NG tube is in the stomach. There is a right-sided PICC line. The tip is in the superior vena cava.. 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 Follow-up on current diagnosis of respiratory failure, still intubated and sedated. No overnight events reported to me. Imaging, nursing note, chart, labs and old chart reviewed. Discussed with nurse. [employer]yer at bedside. Hospitalist Physical - Physical exam Narrative exam: Gen: thin, critically ill, intubated and sedated HEENT: NCAT, EOMI, PERRL, OP ETT and NGT in place Neck: supple, no JVD CVS/Heart: Regular tachycardia, normal S1S2, pulses present bilaterally Chest/Lungs: diminished bs bilateral, Symmetrical chest expansion, good air entry bilaterally GI/Abdomen: soft, good bowel sounds, no guarding or rebound /Bladder: no suprapubic tenderness, Extermity/Skin: no c/c/e, no obvious rash front side MSK: sedated Neuro: sedated Psych:sedated - Constitutional Vitals: Temp Pulse Resp BP Pulse Ox 98.8 F 127 H 37 H 108/68 96 07/17/18 03:45 07/17/18 03:56 07/17/18 03:56 07/17/18 03:45 07/17/18 03:45 General appearance: Present: cachectic, disheveled. Absent: mild distress Results - Labs CBC & Chem 7: 07/16/18 07:21 07/16/18 07:21 Labs: Laboratory Last Values WBC 6.1 K/mm3 (4.5-11.0) 07/16/18 07:21 RBC 2.48 M/mm3 (3.65-5.03) L 07/16/18 07:21 Hgb 7.2 gm/dl (11.8-15.2) L 07/16/18 07:21 Hct 21.5 % (35.5-45.6) L 07/16/18 07:21 MCV 87 fl (84-94) 07/16/18 07:21 MCH 29 pg (28-32) 07/16/18 07:21 MCHC 34 % (32-34) 07/16/18 07:21 RDW 15.7 % (13.2-15.2) H 07/16/18 07:21 Plt Count 253 K/mm3 (140-440) 07/16/18 07:21 Lymph % (Auto) 7.0 % (13.4-35.0) L 07/15/18 12:29 [place] % (Auto) 3.2 % (0.0-7.3) 07/15/18 12:29 Eos % (Auto) 0.1 % (0.0-4.3) 07/15/18 12:29 Baso % (Auto) 0.1 % (0.0-1.8) 07/15/18 12:29 Lymph # 0.4 K/mm3 (1.2-5.4) L 07/15/18 12: [place] # 0.2 K/mm3 (0.0-0.8) 07/15/18 12:29 Eos # 0.0 K/mm3 (0.0-0.4) 07/15/18 12: Baso # 0.0 K/mm3 (0.0-0.1) 07/15/18 12:29 Seg Neutrophils % 89.6 % (40.0-70.0) H 07/15/18 12: Seg Neutrophils # 5.7 K/mm3 (1.8-7.7) 07/15/18 12: 1298.70 ng/mlDDU (0-234) H 07/11/18 15:04 POC ABG pH 7.245 (7.35-7.45) L 07/17/18 04:01 POC ABG pCO2 63.8 (35-45) H 07/17/18 04:01 POC ABG pO2 75 (80-105) L 07/17/18 04:01 POC ABG HCO3 27.7 (22-26 mml/L) 07/17/18 04:01 POC ABG Total CO2 30 (23-27mmol/L) 07/17/18 04:01 POC ABG O2 Sat 92 07/17/18 04:01 POC ABG Base Excess 0 ((-2) - (+3)mmol/L) 07/17/18 04:01 70 % 07/17/18 04:01 Sodium 136 mmol/L (137-145) L 07/16/18 07:21 Potassium 4.0 mmol/L (3.6-5.0) 07/16/18 07:21 Chloride 100.6 mmol/L (98-107) 07/16/18 07:21 Carbon Dioxide 27 mmol/L (22-30) 07/16/18 07:21 12 mmol/L 07/16/18 07:21 BUN 11 mg/dL (9-20) 07/16/18 07:21 0.6 mg/dL (0.8-1.5) L 07/16/18 07:21 Estimated GFR > 60 ml/min 07/16/18 07:21 18 % 07/16/18 07:21 Glucose 118 mg/dL (75-100) H 07/16/18 07:21 POC Glucose 97 (70-105) 07/15/18 05:46 Lactic Acid 1.80 mmol/L (0.7-2.0) 07/11/18 21:01 Calcium 7.5 mg/dL (8.4-10.2) L 07/16/18 07:21 0.20 mg/dL (0.1-1.2) 07/11/18 14:06 AST 30 units/L (5-40) 07/11/18 14:06 ALT 11 units/L (7-56) 07/11/18 14:06 50 units/L (35-129) 07/11/18 14:06 731 units/L (91-180) H 07/12/18 19:29 < 0.010 ng/mL (0.00-0.029) 07/11/18 15:04 2.70 mg/dL (0.00-1.30) H 07/15/18 14:09 NT-Pro-B Natriuret Pep 249.7 pg/mL (0-450) 07/11/18 15:04 6.3 g/dL (6.3-8.2) 07/11/18 14:06 2.1 g/dL (3.9-5) L 07/11/18 14:06 0.5 % 07/11/18 14:06 Yellow (Yellow) 07/15/18 14:14 Clear (Clear) 07/15/18 14:14 6.0 (5.0-7.0) 07/15/18 14:14 Ur Specific [place] 1.015 (1.003-1.030) 07/15/18 14:14 30 mg/dl mg/dL (Negative) 07/15/18 14:14 Neg mg/dL (Negative) 07/15/18 14:14 Neg mg/dL (Negative) 07/15/18 14:14 Neg (Negative) 07/15/18 14:14 Neg (Negative) 07/15/18 14:14 Neg (Negative) 07/15/18 14:14 < 2.0 mg/dL (<2.0) 07/15/18 14:14 Ur Leukocyte Esterase Neg (Negative) 07/15/18 14:14 2.0 /HPF (0.0-6.0) 07/15/18 14:14 6.0 /HPF (0.0-6.0) 07/15/18 14:14 RPR Nonreactive (Nonreactive) 07/12/18 23:38 Hepatitis A IgM Ab Non-reactive (NonReactive) 07/12/18 23:38 Hep Bs Antigen Non-reactive (Negative) 07/12/18 23:38 Hep B Core IgM Ab Non-reactive (NonReactive) 07/12/18 23:38 Non-reactive (NonReactive) 07/12/18 23:38 see below H 07/12/18 00:25 Active Medications - Current Medications Current Medications: Generic Name Dose Route Start Last Admin Trade Name Freq PRN Reason Stop Dose Admin Acetaminophen 650 mg 07/12/18 18:07 07/16/18 13:45 Tylenol FEEDTUBE 650 mg Q6H PRN Administration Non Cardiac Pain or Temp>100.5 Albuterol 2.5 mg 07/11/18 17:16 Proventil IH Q3HRT PRN Shortness Of Breath Albuterol/Ipratropium 1 ampul 07/13/18 14:00 07/17/18 04:00 Duoneb *Not For Prn Use* IH 1 ampul Q6HRT HE Administration Lipase/Protease/Amylase 1 each 07/13/18 12:[address] 10,500 Unit FEEDTUBE PRN PRN For Clogged Feeding Tube Docusate Sodium 100 mg 07/15/18 12:00 07/16/18 22:14 Colace PO 100 mg BID HE Administration Enoxaparin Sodium 40 mg 07/12/18 10:00 07/16/18 09:00 Lovenox SUB-Q 40 mg QDAY@1000 HE Administration Famotidine 20 mg 07/16/18 22:00 07/16/18 22:23 Pepcid PO 20 mg BID HE Administration Fentanyl 50 mcg 07/12/18 00:26 Sublimaze IV Q10MIN PRN ANALGESIA Hydrophilic Ointment 1 applic 07/12/18 13:30 Vaseline Lip Therapy TP Q2HR PRN Dry Lips Trimethoprim/Sulfamethoxazole 518.75 mls @ 350 mls/hr 07/11/18 18:00 07/17/18 01:18 300 mg/ Dextrose IV 350 mls/hr Q6HR HE Administration Protocol Sodium Chloride 1,000 mls @ 125 mls/hr 07/11/18 18:00 07/16/18 22:45 Nacl 0.9% 1000 Ml IV 125 mls/hr DIRECT HE Administration Fentanyl Citrate 2,000 mcg in 100 mls @ 3.065 mls/hr 07/12/18 01:00 07/16/18 21:13 Fentanyl Drip Premix IV 4 mcg/kg/hr TITR HE 12.26 mls/hr Administration Protocol 1 MCG/KG/HR Propofol 1,000 mg in 100 mls @ 1.839 mls/hr 07/12/18 01:00 07/16/18 22:09 Diprivan 10 Mg/Ml IV 40 mcg/kg/min TITR HE 14.712 mls/hr Administration Protocol 5 MCG/KG/MIN Dopamine HCl/Dextrose 800 mg in 250 mls @ 2.299 mls/hr 07/12/18 22:00 07/15 14:28 Intropin Drip 800 Mg/D5w 250 Ml IV 0 mcg/kg/min TITR HE 0 mls/hr Titration Protocol 2 MCG/KG/MIN Cefepime HCl 2 gm in 100 mls @ 200 mls/hr 07/15/18 14:00 07/16/18 22:11 Maxipime/Ns 2 Gm/100 Ml IV 200 mls/hr Q8HR HE Administration Protocol Linezolid 600 mg in 300 mls @ 300 mls/hr 07/15/18 14:00 07/16/18 22:24 Zyvox 600mg/300ml IV 300 mls/hr Q12HR HE Administration Protocol Ganciclovir Sodium 350 mg/ 250 mls @ 100 mls/hr 07/16/18 15:00 07/17/18 03:44 Sodium Chloride IV 100 mls/hr Q12H HE Administration Methylprednisolone Sodium Succinate 40 mg 07/16/18 14:00 07/16/18 22:23 Solu-Medrol IV 40 mg Q8HR HE Administration Midazolam HCl 2 mg 07/16/18 13:06 07/16/18 13:44 Versed IV 2 mg Q2H PRN Administration AGITATION Multi-Ingred Cream/Lotion/Oil/Oint 1 applic 07/12/18 13:30 Artificial Tears Ophth Oint OU Q4HR PRN Dry Eye(s) Quetiapine Fumarate 200 mg 07/16/18 14:00 07/16/18 22:12 Seroquel PO 200 mg BID HE Administration Simple Syrup 15 ml 07/13/18 12:30 Simple Syrup FEEDTUBE PRN PRN Hypoglycemia Simple Syrup 30 ml 07/13/18 12:30 Simple Syrup FEEDTUBE PRN PRN Hypoglycemia Sodium Bicarbonate 325 mg 07/13/18 12:30 Sodium Bicarbonate FEEDTUBE PRN PRN For Clogged Feeding Tube Sodium Chloride 10 ml 07/11/18 22:00 07/16/18 22:18 Sodium Chloride Flush Syringe 10 Ml IV 10 ml BID HE Administration Sodium Chloride 10 ml 07/11/18 17:16 Sodium Chloride Flush Syringe 10 Ml IV PRN PRN LINE FLUSH Nutrition/Malnutrition Assess - Dietary Evaluation Nutrition/Malnutrition Findings: Nutrition Notes Start: 07/12/18 09:38 Freq: Status: Active Protocol: Document 07/16/18 15:54 RM (Rec: 07/16/18 16:00 RM [email or web address]) Nutrition Notes Initial or Follow up Reassessment Other Pertinent Diagnosis HIV/AIDS, SOB, weakness, nicotine dependence, PCP, hyponatremia syndrome Current Diet Vital 1.2 at 65 ml/hr Labs/Tests Reviewed Pertinent Medications Solu-medrol Diprivan Height 5 ft 11 in Weight 66.7 kg [place] Body Weight (kg) 78.18 BMI 20.5 Weight change and time frame Current wt obtained from scale Subjective/Other Information Observed Vital 1.2 infusing at 65 ml/hr. Per nurse pt is tolerating TF. Percent of energy/protein needs met: 96%/100% Burn Absent Trauma Absent #2 Nutrition Diagnosis Inadequate oral intake Diagnosis Progress(for reassessment Continues documentation) #1 Nutrition Diagnosis Malnutrition Diagnosis Progress(for reassessment Continues documentation) Is patient on ventilator? Yes Is Patient Ambulatory and/or Out of Bed No REE-([facility]-confined to bed) 2657.60 Calculation Used for Recommendations [facility] Additional Notes Protein: 74- 92 g (1.2-1.5 g/ kg) Fluid: 1 ml/kcal Nutrition Intervention Nutrition Support: Vital 1.2 at 65 mL/hr Flush 100 mL q 4 hr Kcal 1,872 Protein (gm) 117 Carbohydrates (gm) 173 Fat (gm) 84 Fluid (mL) 1,265 Fiber (gm) 8 Goal #1 TF tolerance Goal #2 TF to meet at least 80% of [place] and pro needs Anticipated Discharge Needs: Unable to determine at this time Follow-Up By: 07/23/18 Additional Comments Follow for TF tolerance
[2018-07-17] MEDS: PEPCID PO SCH ×2 (09:21→21:10)
[2018-07-17] MEDS: COLACE PO SCH ×2 (09:22→21:11)
[2018-07-17] MEDS: SODIUM CHLORIDE FLUSH SYRINGE 10 ML IV SCH ×2 (09:23→21:13)
[2018-07-17] MEDS: LOVENOX SUB-Q SCH (09:23)
[2018-07-17] MEDS: ZYVOX 600MG/300ML 600 MG/300 ML BAG IV SCH ×2 (10:00→21:12)
--- NOTE | 2018-07-17 11:35 | Progress Note ---
Assessment and Plan Cultures: Blood culture 07/11/2018 no growth today. Cryptococcal antigen : negative MRSA PCR: positive Blood culture 07/15/2018: in progress Urine culture 07/15/2018: no growth in 24 hours Sputum culture 07/15/18: Staph aureus, canida Assessment: 37 y/o male currently in [facility] with history of HIV infection of unknown duration, noncompliant with antiretroviral medication, severe malnutrition; adm itted on 07/11/2018, brought by law enforcement, due to 2-week history of shortness of breath, generalized weakness and productive cough: 1) Sepsis with new septic shock, off pressors x 24h. No fever. Etiology most likely pneumonia. Hepatitis panel negative. RPR nonreactive. CRP 2.7. Continue Cefepime and Linezolid. 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 Sputum culture no growth today. Chest CT showed bilateral patchy and somewhat confluent alveolar infiltrates and interstitial infiltrates. No effusions. Mild cardiomegaly. Sputum culture grew Staph aureus and Canida. 3) HIV, presumed AIDS: Patient has not taken his HIV medication for at least 6 months prior due to his incarceration. On admission he reported 40lbs unintentional weight loss for 2 months and intermittent loose stools over the past 2 weeks. Patient is currently intubated on the ventilator, unable to provide a history. PJP DFA positive. 4) Diarrhea: ? possible opportunistic infection. 5) Acute respiratory failure: not better, from pneumonia. worsening 6) Anemia Recommendations: -continue ganciclovir 500 mg IV empirically until CMV is r/o, D2 -Continue Cefepime 2gms IV every 8 hours, D3 -Continue Linezolid 600mg every 12 hours, D3 - continue bactrim IV and solumedrol IV D7 - for severe PJP pneumonia with hypoxemia - follow-up repeat blood cultures -follow-up urine cultures - f/u CD4, HIV-viral load -follow-up Procalcitonin -follow-up CMV DNA PCR -CBC for tomorrow - send G6PD level stat [facility] M: [phone] O:[phone] Subjective Date of service: 07/17/18 Principal diagnosis: Acute hypoxemic resp failure; Bilateral pneumonia ? PJP; HIV/AIDS Interval history: Patient seen and examined. Asleep, mostly unresponsive. mild distress observed. Objective - Exam Narrative Exam: General appearance: Asleep. Not easily arousable. mild distress observed. Eyes: anicteric sclerae, moist conjunctivae; no lid-lag; PERRLA HENT: Atraumatic; oropharynx +ETT +NGT Neck: Trachea midline; supple, no thyromegaly or lymphadenopathy Lungs: ryland crackles CV: tachycardic Abdomen: Soft, non-tender; no masses or hepatosplenomegaly Extremities: No peripheral edema or extremity lymphadenopathy Skin: Normal temperature, turgor and texture; no rash, ulcers or subcutaneous nodules Psych: calm Neuro: asleep, not easily arousable. - Constitutional Vitals: Vital Signs Temp Pulse Resp BP Pulse Ox 98.9 F 127 H 37 H 108/68 96 07/17/18 08:00 07/17/18 03:56 07/17/18 03:56 07/17/18 03:45 07/17/18 03:45 Temperature -Last 24 Hours Temperature 98.9 F Temperature 98.8 F Temperature 98.0 F Temperature 99.8 F Temperature 100.5 F - Labs CBC & Chem 7: 07/16/18 07:21 07/16/18 07:21 Labs: Abnormal lab results 07/12/18 07/16/18 07/17/18 Range/Units 00:25 16:16 04:01 POC ABG pH 7.251 L 7.245 L (7.35-7.45) POC ABG pCO2 62.2 H 63.8 H (35-45) POC ABG pO2 75 L (80-105) Miscellaneous Test see below H
--- NOTE | 2018-07-17 14:35 | Progress Note ---
Assessment and Plan Acute hypoxemic respiratory failure, on mechanical ventilatory support. Bilateral pneumonia, high suspicion for Pneumocystis jiroveci pneumonia. Human immunodeficiency virus/acquired immunodeficiency syndrome,noncompliant wit h therapy. Hyponatremia. Severe protein calorie malnutrition. Elevated D-dimer. Tobacco use disorder. - continue to wean supplemental oxygen to keep O2 sats 88-90% acutely - keep Peep at 14 cm H2O - continue Seroquel bid dosing to spare IV sedatives - continue Versed drip and give prn pushes for now - PJP stain positive - continue current set rate at 30/min on MVS and TV 350 mls (LTVV /4-6mls/kg IBW) - ARDS ventilatory strategies with low TV - daily SAT's & SBT assessment as tolerated - sedation target for RASS 0 to -1 - continue bronchodilators with pulmonary hygiene per RT - continue GI & VTE prophylaxis - Lung protective strategies - Daily ABGs/CXR for now - VAP bundle addressed - Tracheal aspirate, blood cultures are negative to date - continue Anti-infectives and ART per ID rec's - Chambers catheter placed for acute urinary retention. - Continue full MVS - Monitor renal indices closely - Avoid nephrotoxic agents, adjust all medications for CrCL - Strict intake and output monitoring - Tube feedings as tolerated - Accuchecks with glycemic control. Target glucose of 140-180 mg/dL - Maintenance of sleep -wake cycle - Mobility as tolerated by hemodynamics - Influenza and pneumonia vaccination per protocol ..care plan discussed at length with RN/RT at the bedside ..discussed in ICU-IDT rounds PROGNOSIS: GUARDED CONDITION: CRITICAL CODE STATUS: FULL CODE The high probability of a clinically significant, sudden or life-threatening deterioration of the [respiratory, neurology, renal] system(s) required my full and direct attention, intervention and personal management. The aggregate critical care time was [35] minutes without overlap. Time includes spent on; [x] Data Review and interpretation [x] Patient assessment and monitoring of vital signs [x] Documentation [x] Medication orders and management Subjective Date of service: 07/17/18 Principal diagnosis: Acute hypoxemic resp failure; Bilateral pneumonia ? PJP; HIV/AIDS Interval history: Patient is seen today for: Acute hypoxemic respiratory failure, on mechanical ventilatory support; Bilateral pneumonia, high suspicion for Pneumocystis jiroveci pneumonia; Human immunodeficiency virus/acquired immunodeficiency syndrome,noncompliant with therapy; Hyponatremia; Severe protein calorie malnutrition. Seen and examined at bedside; 24-hour events reviewed; nursing and respiratory care staff consulted; no adverse overnight events reported to me; remains on MVS; remains hypoxemic; FiO2 down to 70% though; appropriate during SAT's; No N/V/F/C; remains on IVNS; BP's holding well Objective Vital Signs - 12hr 07/17/18 07/17/18 07/17/18 02:45 03:00 03:14 Temperature Pulse Rate 125 H 125 H 131 H Pulse Rate [ Anterior Bilateral Throughout] Pulse Rate [ From Monitor] Respiratory 31 H 34 H Rate Respiratory Rate [Anterior Bilateral Throughout] Blood Pressure 120/79 112/70 120/79 O2 Sat by Pulse 98 96 97 Oximetry 07/17/18 07/17/18 07/17/18 03:15 03:30 03:45 Temperature 98.8 F Pulse Rate 124 H 126 H 126 H Pulse Rate [ Anterior Bilateral Throughout] Pulse Rate [ From Monitor] Respiratory 24 21 27 H Rate Respiratory Rate [Anterior Bilateral Throughout] Blood Pressure 112/70 108/68 108/68 O2 Sat by Pulse 88 94 96 Oximetry 07/17/18 07/17/18 07/17/18 03:56 04:00 04:15 Temperature Pulse Rate 124 H 124 H Pulse Rate [ 127 H Anterior Bilateral Throughout] Pulse Rate [ From Monitor] Respiratory 31 H 20 Rate Respiratory 37 H Rate [Anterior Bilateral Throughout] Blood Pressure 110/69 108/68 O2 Sat by Pulse 96 96 Oximetry 07/17/18 07/17/18 07/17/18 04:30 04:45 05:00 Temperature Pulse Rate 124 H 124 H 124 H Pulse Rate [ Anterior Bilateral Throughout] Pulse Rate [ From Monitor] Respiratory 33 H 25 H 30 H Rate Respiratory Rate [Anterior Bilateral Throughout] Blood Pressure 109/69 109/69 112/71 O2 Sat by Pulse 95 95 91 Oximetry 07/17/18 07/17/18 07/17/18 05:15 05:30 05:45 Temperature Pulse Rate 123 H 122 H 123 H Pulse Rate [ Anterior Bilateral Throughout] Pulse Rate [ From Monitor] Respiratory 33 H 21 23 Rate Respiratory Rate [Anterior Bilateral Throughout] Blood Pressure 109/69 110/67 110/67 O2 Sat by Pulse 96 94 96 Oximetry 07/17/18 07/17/18 07/17/18 06:00 06:15 06:30 Temperature Pulse Rate 122 H 106 H 118 H Pulse Rate [ Anterior Bilateral Throughout] Pulse Rate [ From Monitor] Respiratory 23 32 H 32 H Rate Respiratory Rate [Anterior Bilateral Throughout] Blood Pressure 111/67 111/67 112/71 O2 Sat by Pulse 94 94 94 Oximetry 07/17/18 07/17/18 07/17/18 06:45 07:00 07:15 Temperature Pulse Rate 122 H 120 H 121 H Pulse Rate [ Anterior Bilateral Throughout] Pulse Rate [ From Monitor] Respiratory 34 H 27 H 35 H Rate Respiratory Rate [Anterior Bilateral Throughout] Blood Pressure 112/71 120/69 120/69 O2 Sat by Pulse 96 94 94 Oximetry 07/17/18 07/17/18 07/17/18 07:30 07:45 08:00 Temperature 98.9 F Pulse Rate 120 H 121 H 118 H Pulse Rate [ Anterior Bilateral Throughout] Pulse Rate [ 125 H From Monitor] Respiratory 24 22 23 Rate Respiratory Rate [Anterior Bilateral Throughout] Blood Pressure 108/70 108/70 107/71 O2 Sat by Pulse 92 95 93 Oximetry 07/17/18 07/17/18 07/17/18 08:15 08:30 08:45 Temperature Pulse Rate 121 H 118 H 114 H Pulse Rate [ Anterior Bilateral Throughout] Pulse Rate [ From Monitor] Respiratory 19 25 H Rate Respiratory Rate [Anterior Bilateral Throughout] Blood Pressure 107/71 107/71 112/74 O2 Sat by Pulse 95 96 94 Oximetry 07/17/18 07/17/18 07/17/18 09:00 09:15 09:30 Temperature Pulse Rate 121 H 119 H 119 H Pulse Rate [ Anterior Bilateral Throughout] Pulse Rate [ From Monitor] Respiratory 28 H 34 H 31 H Rate Respiratory Rate [Anterior Bilateral Throughout] Blood Pressure 122/77 122/77 119/74 O2 Sat by Pulse 94 97 95 Oximetry 07/17/18 07/17/18 07/17/18 09:45 10:00 10:15 Temperature Pulse Rate 125 H 136 H 133 H Pulse Rate [ Anterior Bilateral Throughout] Pulse Rate [ From Monitor] Respiratory 19 22 32 H Rate Respiratory Rate [Anterior Bilateral Throughout] Blood Pressure 119/74 112/70 112/70 O2 Sat by Pulse 97 98 99 Oximetry 07/17/18 07/17/18 07/17/18 10:30 10:45 11:00 Temperature Pulse Rate 134 H 132 H 131 H Pulse Rate [ Anterior Bilateral Throughout] Pulse Rate [ From Monitor] Respiratory 20 32 H 24 Rate Respiratory Rate [Anterior Bilateral Throughout] Blood Pressure 111/74 111/74 106/69 O2 Sat by Pulse 98 98 96 Oximetry 07/17/18 07/17/18 07/17/18 11:15 11:30 11:45 Temperature Pulse Rate 130 H 129 H 128 H Pulse Rate [ Anterior Bilateral Throughout] Pulse Rate [ From Monitor] Respiratory 25 H 21 24 Rate Respiratory Rate [Anterior Bilateral Throughout] Blood Pressure 106/69 113/70 113/70 O2 Sat by Pulse 98 97 98 Oximetry 07/17/18 07/17/18 07/17/18 12:00 12:15 12:30 Temperature 99.0 F Pulse Rate 127 H 125 H 124 H Pulse Rate [ Anterior Bilateral Throughout] Pulse Rate [ 124 H From Monitor] Respiratory 22 21 31 H Rate Respiratory Rate [Anterior Bilateral Throughout] Blood Pressure 117/71 117/71 115/71 O2 Sat by Pulse 95 99 96 Oximetry 07/17/18 07/17/18 12:45 13:00 Temperature Pulse Rate 124 H 124 H Pulse Rate [ Anterior Bilateral Throughout] Pulse Rate [ From Monitor] Respiratory 33 H 30 H Rate Respiratory Rate [Anterior Bilateral Throughout] Blood Pressure 115/71 113/72 O2 Sat by Pulse 99 98 Oximetry Constitutional: appears uncomfortable, other (young AAM; normocephalic and atraumatic) Eyes: non-icteric ENT: oropharynx moist, other (ETT 23 cm SHONA) Neck: supple, no lymphadenopathy, no JVD Effort: mildly labored Ascultation: Bilateral: diminished breath sounds, rales Percussion: Bilateral: not dull Cardiovascular: regular rate and rhythm Gastrointestinal: normoactive bowel sounds, soft, non-tender, non-distended Integumentary: normal Extremities: no cyanosis, no edema, pulses normal, no ischemia or petechiae Neurologic: normal mental status, non-focal exam, pupils equal and round, CN II- XII normal, motor strength normal and Psychiatric: anxious CBC and BMP: 07/18/18 01:10 07/16/18 07:21 ABG, PT/INR, D-dimer: ABG POC ABG pH 7.245 (7.35-7.45) L 07/17/18 04:01 POC ABG pCO2 63.8 (35-45) H 07/17/18 04:01 POC ABG pO2 75 (80-105) L 07/17/18 04:01 POC ABG HCO3 27.7 (22-26 mml/L) 07/17/18 04:01 POC ABG Total CO2 30 (23-27mmol/L) 07/17/18 04:01 POC ABG O2 Sat 92 07/17/18 04:01 PT/INR, D-dimer 1298.70 ng/mlDDU (0-234) H 07/11/18 15:04 Abnormal lab findings: Abnormal Labs 07/11/18 07/11/18 07/11/18 14:06 14:06 15:04 RBC 3.30 L Hgb 9.6 L Hct 28.7 L RDW Lymph % (Auto) Lymph # Seg Neutrophils % D-Dimer 1298.70 H POC ABG pH POC ABG pCO2 POC ABG pO2 Sodium 132 L Carbon Dioxide Creatinine 0.6 L Glucose 103 H POC Glucose Calcium 7.3 L Lactate Dehydrogenase C-Reactive Protein Albumin 2.1 L Miscellaneous Test 07/11/18 07/11/18 07/12/18 17:36 22:15 00:25 RBC Hgb Hct RDW Lymph % (Auto) Lymph # Seg Neutrophils % D-Dimer POC ABG pH 7.289 L POC ABG pCO2 POC ABG pO2 66 L Sodium Carbon Dioxide Creatinine Glucose POC Glucose Calcium Lactate Dehydrogenase 591 H C-Reactive Protein Albumin Miscellaneous Test see below H 07/12/18 07/12/18 07/12/18 00:41 05:37 19:29 RBC Hgb Hct RDW Lymph % (Auto) Lymph # Seg Neutrophils % D-Dimer POC ABG pH 7.302 L 7.275 L POC ABG pCO2 47.1 H POC ABG pO2 Sodium Carbon Dioxide Creatinine Glucose POC Glucose Calcium Lactate Dehydrogenase 731 H C-Reactive Protein Albumin Miscellaneous Test 07/13/18 07/13/18 07/13/18 04:03 05:46 12:23 RBC Hgb Hct RDW Lymph % (Auto) Lymph # Seg Neutrophils % D-Dimer POC ABG pH 7.254 L POC ABG pCO2 49.2 H POC ABG pO2 Sodium Carbon Dioxide Creatinine Glucose POC Glucose 68 L 106 H Calcium Lactate Dehydrogenase C-Reactive Protein Albumin Miscellaneous Test 07/13/18 07/14/1807/14/19 18:31 04:19 05:36 RBC Hgb Hct RDW Lymph % (Auto) Lymph # Seg Neutrophils % D-Dimer POC ABG pH 7.337 L POC ABG pCO2 POC ABG pO2 Sodium 135 L Carbon Dioxide 21 L Creatinine 0.7 L Glucose 123 H POC Glucose 112 H Calcium 8.2 L Lactate Dehydrogenase C-Reactive Protein Albumin Miscellaneous Test 07/14/18 07/14/18 07/14/18 05:36 12:14 14:33 RBC 2.99 L Hgb 8.8 L Hct 25.7 L RDW 15.5 H Lymph % (Auto) Lymph # Seg Neutrophils % D-Dimer POC ABG pH 7.325 L POC ABG pCO2 POC ABG pO2 75 L Sodium Carbon Dioxide Creatinine Glucose POC Glucose 174 H Calcium Lactate Dehydrogenase C-Reactive Protein Albumin Miscellaneous Test 07/14/18 07/15/18 07/15/18 17:18 00:17 12:29 RBC 2.64 L Hgb 7.5 L Hct 22.9 L RDW 15.4 H Lymph % (Auto) 7.0 L Lymph # 0.4 L Seg Neutrophils % 89.6 H D-Dimer POC ABG pH POC ABG pCO2 POC ABG pO2 Sodium Carbon Dioxide Creatinine Glucose POC Glucose 114 H 113 H Calcium Lactate Dehydrogenase C-Reactive Protein Albumin Miscellaneous Test 07/15/18 07/15/18 07/16/18 12:29 14:09 04:46 RBC Hgb Hct RDW Lymph % (Auto) Lymph # Seg Neutrophils % D-Dimer POC ABG pH 7.282 L POC ABG pCO2 52.6 H POC ABG pO2 63 L Sodium Carbon Dioxide Creatinine 0.6 L Glucose 124 H POC Glucose Calcium 7.3 L Lactate Dehydrogenase C-Reactive Protein 2.70 H Albumin Miscellaneous Test 07/16/18 07/16/18 07/16/18 07:21 07:21 16:16 RBC 2.48 L Hgb 7.2 L Hct 21.5 L RDW 15.7 H Lymph % (Auto) Lymph # Seg Neutrophils % D-Dimer POC ABG pH 7.251 L POC ABG pCO2 62.2 H POC ABG pO2 Sodium 136 L Carbon Dioxide Creatinine 0.6 L Glucose 118 H POC Glucose Calcium 7.5 L Lactate Dehydrogenase C-Reactive Protein Albumin Miscellaneous Test 07/17/18 04:01 RBC Hgb Hct RDW Lymph % (Auto) Lymph # Seg Neutrophils % D-Dimer POC ABG pH 7.245 L POC ABG pCO2 63.8 H POC ABG pO2 75 L Sodium Carbon Dioxide Creatinine Glucose POC Glucose Calcium Lactate Dehydrogenase C-Reactive Protein Albumin Miscellaneous Test Chest x-ray: image reviewed (improved bilateral infiltrates) Allied health notes reviewed: nursing
[2018-07-17 16:04] LABS: HIV-1 RNA QN PCR 5.72 Log cps/mL
[2018-07-17 20:04] LABS: CD4/CD8 Ratio 0.04 (0.86-5.00)
[2018-07-17] MEDS: VERSED IV PRN (20:35)
--- NOTE | 2018-07-17 23:25 | XRay Report ---
PROCEDURE: XR CHEST 1V AP TECHNIQUE: Chest radiograph single view. HISTORY: ETT tip confirmation COMPARISONS: 07/17/2018 . FINDINGS: Heart: Normal. Mediastinum/Vessels: Normal. Lungs/Pleural space: Lungs are hyperinflated. Irregular ill-defined areas of consolidation involving bilateral lower lungs have slightly improved in the interval there are no new infiltrates. Pleural s paces are clear.. Bony thorax: No acute osseous abnormality. Life support devices: Endotracheal tube is terminating about 5.5 cm above the quan. A right-sided P ICC line is terminating at the level of distal superior vena cava. A feeding tube is extending down i nto the abdomen and its tip is not included in this study.. IMPRESSION: Slight interval improvement in bilateral lower lung consolidations. COPD Endotracheal tube is terminating about 5.5 cm above the quan.. This document is electronically signed by Rosas Pedro MD., Jul 17 2018 11:23:53 PM ET
[2018-07-18 01:27] LABS: Basophils % (Auto) 0.1 % (0.0-1.8); Hemoglobin 6.5 gm/dl (11.8-15.2); Lymphocytes # (Auto) 0.5 K/mm3 (1.2-5.4); Lymphocytes % (Auto) 7.2 % (13.4-35.0); Mean Corpuscular HGB Conc 34 % (32-34); Mean Corpuscular Volume 87 fl (84-94); Monocytes # (Auto) 0.2 K/mm3 (0.0-0.8); Monocytes % (Auto) 2.8 % (0.0-7.3); Platelet Count 233 K/mm3 (140-440)
[2018-07-18 01:29] LABS: Hematocrit 19.2 % (35.5-45.6)
[2018-07-18] MEDS: DUONEB *Not for PRN Use IH SCH ×2 (01:33→07:48)
[2018-07-18] MEDS ORDERED: NACL 0.9% 500 ML 500 ML IV ONE (01:42)
[2018-07-18] MEDS: DIPRIVAN 10 MG/ML 1,000 MG/100 ML BOTTLE IV SCH ×3 (02:49→15:49)
--- NOTE | 2018-07-18 03:19 | XRay Report ---
PROCEDURE: XR CHEST 1V AP TECHNIQUE: A portable upright view the chest was obtained. HISTORY: follow up respiratory failure COMPARISONS: 07/17/2018 FINDINGS: The heart is mildly enlarged. There is stable patchy airspace disease in both lungs particularly in t he lower lobes. Pleural fluid is not seen. The right-sided PICC line and NG tube appear in good posit ion. The tip of the endotracheal tube is about 5 cm above the quan. The skeletal structures otherwi se are unchanged. IMPRESSION: Stable bilateral airspace disease compatible with pneumonia. Pleural fluid not seen. Satisfactory position of tubes and lines.. This document is electronically signed by Harrison Sumner MD., Jul 18 2018 03:17:09 AM ET
[2018-07-18] MEDS: CYTOVENE IV SCH ×2 (04:27→15:09)
[2018-07-18] MEDS: NACL 0.9% IV SCH ×2 (04:27→15:09)
[2018-07-18] MEDS: SOLU-Medrol IV SCH ×3 (06:31→22:13)
[2018-07-18] MEDS: fentaNYL DRIP Premix 2,000 MCG/100 ML BAG IV SCH ×2 (07:50→16:38)
[2018-07-18] MEDS: LOVENOX SUB-Q SCH (09:04)
[2018-07-18] MEDS: PEPCID PO SCH ×2 (09:04→22:13)
[2018-07-18] MEDS: ZYVOX 600MG/300ML 600 MG/300 ML BAG IV SCH ×2 (09:26→22:13)
[2018-07-18] MEDS: COLACE PO SCH ×2 (09:26→22:13)
[2018-07-18] MEDS: VERSED IV PRN ×2 (10:00→13:32)
--- NOTE | 2018-07-18 10:22 | Progress Note ---
Assessment and Plan Acute hypoxemic respiratory failure, on mechanical ventilatory support. Bilateral pneumonia, high suspicion for Pneumocystis jiroveci pneumonia. Human immunodeficiency virus/acquired immunodeficiency syndrome,noncompliant wit h therapy. Hyponatremia. Severe protein calorie malnutrition. Elevated D-dimer. Tobacco use disorder. - resume versed drip and target RASS -1 to -2 acutely - continue to wean supplemental oxygen to keep O2 sats 88-90% acutely - keep Peep at 14 cm H2O - continue Seroquel bid dosing to spare IV sedatives - PJP stain positive - continue current set rate at 30/min on MVS and TV 350 mls (LTVV /4-6mls/kg IBW) - ARDS ventilatory strategies with low TV - daily SAT's & SBT assessment as tolerated - continue bronchodilators with pulmonary hygiene per RT - continue GI & VTE prophylaxis - Lung protective strategies - Daily ABGs/CXR for now - VAP bundle addressed - Tracheal aspirate, blood cultures are negative to date - continue Anti-infectives and ART per ID rec's - Chambers catheter placed for acute urinary retention. - Continue full MVS - Monitor renal indices closely - Avoid nephrotoxic agents, adjust all medications for CrCL - Strict intake and output monitoring - Tube feedings as tolerated - Accuchecks with glycemic control. Target glucose of 140-180 mg/dL - Maintenance of sleep -wake cycle - Mobility as tolerated by hemodynamics - Influenza and pneumonia vaccination per protocol ..care plan discussed at length with RN/RT at the bedside ..discussed in ICU-IDT rounds PROGNOSIS: GUARDED CONDITION: CRITICAL CODE STATUS: FULL CODE The high probability of a clinically significant, sudden or life-threatening deterioration of the [respiratory, neurology, renal] system(s) required my full and direct attention, intervention and personal management. The aggregate critical care time was [32] minutes without overlap. Time includes spent on; [x] Data Review and interpretation [x] Patient assessment and monitoring of vital signs [x] Documentation [x] Medication orders and management Subjective Date of service: 07/18/18 Principal diagnosis: Acute hypoxemic resp failure; Bilateral pneumonia ? PJP; HIV/AIDS Interval history: Patient is seen today for: Acute hypoxemic respiratory failure, on mechanical ventilatory support; Bilateral pneumonia, high suspicion for Pneumocystis jiroveci pneumonia; Human immunodeficiency virus/acquired immunodeficiency syndrome,noncompliant with therapy; Hyponatremia; Severe protein calorie malnutrition. Seen and examined at bedside; 24-hour events reviewed; nursing and respiratory care staff consulted; no adverse overnight events reported to me; remains on MVS; markedly increased work of breathing with patient ventilator dyssynchrony; no emesis or overt aspirations; oxygenation marginally improved but FiO2 still at 60% and peep of 14 Objective Vital Signs - 12hr 07/17/18 07/17/18 07/17/18 22:30 22:45 23:00 Temperature Pulse Rate 135 H 134 H 130 H Pulse Rate [ Anterior Bilateral Throughout] Pulse Rate [ Bilateral Throughout] Pulse Rate [ From Monitor] Respiratory 26 H 24 27 H Rate Respiratory Rate [Anterior Bilateral Throughout] Respiratory Rate [Bilateral Throughout] Blood Pressure 120/71 120/71 124/76 O2 Sat by Pulse 92 96 95 Oximetry 07/17/18 07/17/18 07/17/18 23:15 23:30 23:37 Temperature Pulse Rate 133 H 134 H 139 H Pulse Rate [ Anterior Bilateral Throughout] Pulse Rate [ Bilateral Throughout] Pulse Rate [ From Monitor] Respiratory 28 H 26 H 32 H Rate Respiratory Rate [Anterior Bilateral Throughout] Respiratory Rate [Bilateral Throughout] Blood Pressure 124/76 130/82 130/82 O2 Sat by Pulse 97 97 95 Oximetry 07/17/18 07/18/18 07/18/18 23:45 00:00 00:15 Temperature 100.3 F H Pulse Rate 142 H 135 H 132 H Pulse Rate [ Anterior Bilateral Throughout] Pulse Rate [ Bilateral Throughout] Pulse Rate [ 135 H From Monitor] Respiratory 30 H 31 H 25 H Rate Respiratory Rate [Anterior Bilateral Throughout] Respiratory Rate [Bilateral Throughout] Blood Pressure 130/82 128/82 130/82 O2 Sat by Pulse 95 97 97 Oximetry 07/18/18 07/18/18 07/18/18 00:30 00:45 01:00 Temperature Pulse Rate 129 H 130 H 128 H Pulse Rate [ Anterior Bilateral Throughout] Pulse Rate [ Bilateral Throughout] Pulse Rate [ From Monitor] Respiratory 27 H 26 H 29 H Rate Respiratory Rate [Anterior Bilateral Throughout] Respiratory Rate [Bilateral Throughout] Blood Pressure 132/86 128/82 132/86 O2 Sat by Pulse 97 98 97 Oximetry 07/18/18 07/18/18 07/18/18 01:15 01:30 01:45 Temperature Pulse Rate 130 H 122 H 126 H Pulse Rate [ Anterior Bilateral Throughout] Pulse Rate [ Bilateral Throughout] Pulse Rate [ From Monitor] Respiratory 23 28 H 25 H Rate Respiratory Rate [Anterior Bilateral Throughout] Respiratory Rate [Bilateral Throughout] Blood Pressure 132/86 128/84 132/86 O2 Sat by Pulse 98 97 95 Oximetry 07/18/18 07/18/18 07/18/18 02:00 02:15 02:30 Temperature Pulse Rate 126 H 127 H 108 H Pulse Rate [ Anterior Bilateral Throughout] Pulse Rate [ Bilateral Throughout] Pulse Rate [ From Monitor] Respiratory 23 25 H 21 Rate Respiratory Rate [Anterior Bilateral Throughout] Respiratory Rate [Bilateral Throughout] Blood Pressure 128/84 128/84 127/75 O2 Sat by Pulse 95 96 96 Oximetry 07/18/18 07/18/18 07/18/18 02:45 03:00 03:15 Temperature Pulse Rate 125 H 132 H 136 H Pulse Rate [ Anterior Bilateral Throughout] Pulse Rate [ Bilateral Throughout] Pulse Rate [ From Monitor] Respiratory 23 25 H 29 H Rate Respiratory Rate [Anterior Bilateral Throughout] Respiratory Rate [Bilateral Throughout] Blood Pressure 127/75 138/90 127/75 O2 Sat by Pulse 96 95 94 Oximetry 07/18/18 07/18/18 07/18/18 03:19 03:30 03:45 Temperature Pulse Rate 137 H 131 H Pulse Rate [ Anterior Bilateral Throughout] Pulse Rate [ Bilateral Throughout] Pulse Rate [ From Monitor] Respiratory 29 H 33 H 26 H Rate Respiratory Rate [Anterior Bilateral Throughout] Respiratory Rate [Bilateral Throughout] Blood Pressure 141/85 141/85 O2 Sat by Pulse 95 96 Oximetry 07/18/18 07/18/18 07/18/18 04:00 04:15 04:30 Temperature 99.0 F Pulse Rate 129 H 133 H 131 H Pulse Rate [ Anterior Bilateral Throughout] Pulse Rate [ Bilateral Throughout] Pulse Rate [ 133 H From Monitor] Respiratory 33 H 33 H 28 H Rate Respiratory Rate [Anterior Bilateral Throughout] Respiratory Rate [Bilateral Throughout] Blood Pressure 129/84 129/84 130/83 O2 Sat by Pulse 89 89 95 Oximetry 07/18/18 07/18/18 07/18/18 04:45 04:50 05:00 Temperature Pulse Rate 127 H 130 H Pulse Rate [ 120 H Anterior Bilateral Throughout] Pulse Rate [ Bilateral Throughout] Pulse Rate [ From Monitor] Respiratory 29 H 24 Rate Respiratory 32 H Rate [Anterior Bilateral Throughout] Respiratory Rate [Bilateral Throughout] Blood Pressure 130/83 128/79 O2 Sat by Pulse 96 99 Oximetry 07/18/18 07/18/18 07/18/18 05:01 05:02 05:15 Temperature Pulse Rate 130 H 125 H Pulse Rate [ 125 H Anterior Bilateral Throughout] Pulse Rate [ Bilateral Throughout] Pulse Rate [ From Monitor] Respiratory 30 H Rate Respiratory 28 H Rate [Anterior Bilateral Throughout] Respiratory Rate [Bilateral Throughout] Blood Pressure 128/79 O2 Sat by Pulse 98 98 Oximetry 07/18/18 07/18/18 07/18/18 05:30 05:45 06:00 Temperature Pulse Rate 124 H 128 H 127 H Pulse Rate [ Anterior Bilateral Throughout] Pulse Rate [ Bilateral Throughout] Pulse Rate [ From Monitor] Respiratory 27 H 29 H 25 H Rate Respiratory Rate [Anterior Bilateral Throughout] Respiratory Rate [Bilateral Throughout] Blood Pressure 130/81 130/81 138/80 O2 Sat by Pulse 96 98 98 Oximetry 07/18/18 07/18/18 07/18/18 06:15 07:50 08:45 Temperature Pulse Rate 135 H 135 H Pulse Rate [ 131 H Anterior Bilateral Throughout] Pulse Rate [ 133 H Bilateral Throughout] Pulse Rate [ From Monitor] Respiratory 30 H Rate Respiratory 41 H Rate [Anterior Bilateral Throughout] Respiratory 42 H Rate [Bilateral Throughout] Blood Pressure 138/80 138/80 O2 Sat by Pulse 98 98 Oximetry Constitutional: appears uncomfortable, other (young AAM; normocephalic and atraumatic) Eyes: non-icteric ENT: oropharynx moist, other (ETT 23 cm SHONA) Neck: supple, no lymphadenopathy, no JVD Effort: mildly labored Ascultation: Bilateral: diminished breath sounds, rales Percussion: Bilateral: not dull Cardiovascular: regular rate and rhythm Gastrointestinal: normoactive bowel sounds, soft, non-tender, non-distended Integumentary: normal Extremities: no cyanosis, no edema, pulses normal, no ischemia or petechiae Neurologic: normal mental status, non-focal exam, pupils equal and round, CN II- XII normal, motor strength normal and Psychiatric: anxious CBC and BMP: 07/21/18 04:35 07/21/18 04:35 ABG, PT/INR, D-dimer: ABG POC ABG pH 7.441 (7.35-7.45) 07/18/18 05:02 POC ABG pCO2 48.8 (35-45) H 07/18/18 05:02 POC ABG pO2 118 (80-105) H 07/18/18 05:02 POC ABG HCO3 33.2 (22-26 mml/L) 07/18/18 05:02 POC ABG Total CO2 35 (23-27mmol/L) 07/18/18 05:02 POC ABG O2 Sat 99 07/18/18 05:02 PT/INR, D-dimer 1298.70 ng/mlDDU (0-234) H 07/11/18 15:04 Abnormal lab findings: Abnormal Labs 07/11/18 07/11/18 07/11/18 14:06 14:06 15:04 RBC 3.30 L Hgb 9.6 L Hct 28.7 L RDW Lymph % (Auto) Lymph # Seg Neutrophils % Abs Lymphs (Manual) D-Dimer 1298.70 H POC ABG pH POC ABG pCO2 POC ABG pO2 Sodium 132 L Carbon Dioxide Creatinine 0.6 L Glucose 103 H POC Glucose Calcium 7.3 L Lactate Dehydrogenase C-Reactive Protein Albumin 2.1 L Lymph Enumerat CD4/CD8 % CD3 Cells Absolute CD3 Count % CD4 Cells Absolute CD4 Count % CD8 Cells Absolute CD8 Count % CD19 Cells Absolute CD19 Count HIV-1 RNA PCR copies/ml HIV-1 RNA (PCR) log Miscellaneous Test Crossmatch 07/11/18 07/11/18 07/12/18 17:36 22:15 00:25 RBC Hgb Hct RDW Lymph % (Auto) Lymph # Seg Neutrophils % Abs Lymphs (Manual) D-Dimer POC ABG pH 7.289 L POC ABG pCO2 POC ABG pO2 66 L Sodium Carbon Dioxide Creatinine Glucose POC Glucose Calcium Lactate Dehydrogenase 591 H C-Reactive Protein Albumin Lymph Enumerat CD4/CD8 % CD3 Cells Absolute CD3 Count % CD4 Cells Absolute CD4 Count % CD8 Cells Absolute CD8 Count % CD19 Cells Absolute CD19 Count HIV-1 RNA PCR copies/ml HIV-1 RNA (PCR) log Miscellaneous Test see below H Crossmatch 07/12/18 07/12/18 07/12/18 00:41 05:37 19:29 RBC Hgb Hct RDW Lymph % (Auto) Lymph # Seg Neutrophils % Abs Lymphs (Manual) D-Dimer POC ABG pH 7.302 L 7.275 L POC ABG pCO2 47.1 H POC ABG pO2 Sodium Carbon Dioxide Creatinine Glucose POC Glucose Calcium Lactate Dehydrogenase 731 H C-Reactive Protein Albumin Lymph Enumerat CD4/CD8 % CD3 Cells Absolute CD3 Count % CD4 Cells Absolute CD4 Count % CD8 Cells Absolute CD8 Count % CD19 Cells Absolute CD19 Count HIV-1 RNA PCR copies/ml HIV-1 RNA (PCR) log Miscellaneous Test Crossmatch 07/12/18 07/12/18 07/13/18 19:29 19:29 04:03 RBC Hgb Hct RDW Lymph % (Auto) Lymph # Seg Neutrophils % Abs Lymphs (Manual) 220 L D-Dimer POC ABG pH 7.254 L POC ABG pCO2 49.2 H POC ABG pO2 Sodium Carbon Dioxide Creatinine Glucose POC Glucose Calcium Lactate Dehydrogenase C-Reactive Protein Albumin Lymph Enumerat CD4/CD8 0.04 L % CD3 Cells 88 H Absolute CD3 Count 194 L % CD4 Cells 3 L Absolute CD4 Count 7 L % CD8 Cells 75 H Absolute CD8 Count 177 L % CD19 Cells 4 L Absolute CD19 Count 9 L HIV-1 RNA PCR copies/ml 054733 H HIV-1 RNA (PCR) log 5.72 H Miscellaneous Test Crossmatch 07/13/18 07/13/18 07/13/18 05:46 12:23 18:31 RBC Hgb Hct RDW Lymph % (Auto) Lymph # Seg Neutrophils % Abs Lymphs (Manual) D-Dimer POC ABG pH POC ABG pCO2 POC ABG pO2 Sodium Carbon Dioxide Creatinine Glucose POC Glucose 68 L 106 H 112 H Calcium Lactate Dehydrogenase C-Reactive Protein Albumin Lymph Enumerat CD4/CD8 % CD3 Cells Absolute CD3 Count % CD4 Cells Absolute CD4 Count % CD8 Cells Absolute CD8 Count % CD19 Cells Absolute CD19 Count HIV-1 RNA PCR copies/ml HIV-1 RNA (PCR) log Miscellaneous Test Crossmatch 07/14/18 07/14/18 07/14/18 04:19 05:36 05:36 RBC 2.99 L Hgb 8.8 L Hct 25.7 L RDW 15.5 H Lymph % (Auto) Lymph # Seg Neutrophils % Abs Lymphs (Manual) D-Dimer POC ABG pH 7.337 L POC ABG pCO2 POC ABG pO2 Sodium 135 L Carbon Dioxide 21 L Creatinine 0.7 L Glucose 123 H POC Glucose Calcium 8.2 L Lactate Dehydrogenase C-Reactive Protein Albumin Lymph Enumerat CD4/CD8 % CD3 Cells Absolute CD3 Count % CD4 Cells Absolute CD4 Count % CD8 Cells Absolute CD8 Count % CD19 Cells Absolute CD19 Count HIV-1 RNA PCR copies/ml HIV-1 RNA (PCR) log Miscellaneous Test Crossmatch 07/14/18 07/14/18 07/14/18 12:14 14:33 17:18 RBC Hgb Hct RDW Lymph % (Auto) Lymph # Seg Neutrophils % Abs Lymphs (Manual) D-Dimer POC ABG pH 7.325 L POC ABG pCO2 POC ABG pO2 75 L Sodium Carbon Dioxide Creatinine Glucose POC Glucose 174 H 114 H Calcium Lactate Dehydrogenase C-Reactive Protein Albumin Lymph Enumerat CD4/CD8 % CD3 Cells Absolute CD3 Count % CD4 Cells Absolute CD4 Count % CD8 Cells Absolute CD8 Count % CD19 Cells Absolute CD19 Count HIV-1 RNA PCR copies/ml HIV-1 RNA (PCR) log Miscellaneous Test Crossmatch 07/15/18 07/15/18 07/15/18 00:17 12:29 12:29 RBC 2.64 L Hgb 7.5 L Hct 22.9 L RDW 15.4 H Lymph % (Auto) 7.0 L Lymph # 0.4 L Seg Neutrophils % 89.6 H Abs Lymphs (Manual) D-Dimer POC ABG pH POC ABG pCO2 POC ABG pO2 Sodium Carbon Dioxide Creatinine 0.6 L Glucose 124 H POC Glucose 113 H Calcium 7.3 L Lactate Dehydrogenase C-Reactive Protein Albumin Lymph Enumerat CD4/CD8 % CD3 Cells Absolute CD3 Count % CD4 Cells Absolute CD4 Count % CD8 Cells Absolute CD8 Count % CD19 Cells Absolute CD19 Count HIV-1 RNA PCR copies/ml HIV-1 RNA (PCR) log Miscellaneous Test Crossmatch 07/15/18 07/16/18 07/16/18 14:09 04:46 07:21 RBC 2.48 L Hgb 7.2 L Hct 21.5 L RDW 15.7 H Lymph % (Auto) Lymph # Seg Neutrophils % Abs Lymphs (Manual) D-Dimer POC ABG pH 7.282 L POC ABG pCO2 52.6 H POC ABG pO2 63 L Sodium Carbon Dioxide Creatinine Glucose POC Glucose Calcium Lactate Dehydrogenase C-Reactive Protein 2.70 H Albumin Lymph Enumerat CD4/CD8 % CD3 Cells Absolute CD3 Count % CD4 Cells Absolute CD4 Count % CD8 Cells Absolute CD8 Count % CD19 Cells Absolute CD19 Count HIV-1 RNA PCR copies/ml HIV-1 RNA (PCR) log Miscellaneous Test Crossmatch 07/16/18 07/16/18 07/17/18 07:21 16:16 04:01 RBC Hgb Hct RDW Lymph % (Auto) Lymph # Seg Neutrophils % Abs Lymphs (Manual) D-Dimer POC ABG pH 7.251 L 7.245 L POC ABG pCO2 62.2 H 63.8 H POC ABG pO2 75 L Sodium 136 L Carbon Dioxide Creatinine 0.6 L Glucose 118 H POC Glucose Calcium 7.5 L Lactate Dehydrogenase C-Reactive Protein Albumin Lymph Enumerat CD4/CD8 % CD3 Cells Absolute CD3 Count % CD4 Cells Absolute CD4 Count % CD8 Cells Absolute CD8 Count % CD19 Cells Absolute CD19 Count HIV-1 RNA PCR copies/ml HIV-1 RNA (PCR) log Miscellaneous Test Crossmatch 07/18/18 07/18/18 07/18/18 01:10 03:10 04:54 RBC 2.20 L Hgb 6.5 L Hct 19.2 L* RDW 16.0 H Lymph % (Auto) 7.2 L Lymph # 0.5 L Seg Neutrophils % 89.9 H Abs Lymphs (Manual) D-Dimer POC ABG pH 7.615 H POC ABG pCO2 32.6 L POC ABG pO2 79 L Sodium Carbon Dioxide Creatinine Glucose POC Glucose Calcium Lactate Dehydrogenase C-Reactive Protein Albumin Lymph Enumerat CD4/CD8 % CD3 Cells Absolute CD3 Count % CD4 Cells Absolute CD4 Count % CD8 Cells Absolute CD8 Count % CD19 Cells Absolute CD19 Count HIV-1 RNA PCR copies/ml HIV-1 RNA (PCR) log Miscellaneous Test Crossmatch See Detail 07/18/18 05:02 RBC Hgb Hct RDW Lymph % (Auto) Lymph # Seg Neutrophils % Abs Lymphs (Manual) D-Dimer POC ABG pH POC ABG pCO2 48.8 H POC ABG pO2 118 H Sodium Carbon Dioxide Creatinine Glucose POC Glucose Calcium Lactate Dehydrogenase C-Reactive Protein Albumin Lymph Enumerat CD4/CD8 % CD3 Cells Absolute CD3 Count % CD4 Cells Absolute CD4 Count % CD8 Cells Absolute CD8 Count % CD19 Cells Absolute CD19 Count HIV-1 RNA PCR copies/ml HIV-1 RNA (PCR) log Miscellaneous Test Crossmatch Chest x-ray: image reviewed Allied health notes reviewed: nursing
--- NOTE | 2018-07-18 11:00 | Progress Note ---
Assessment and Plan Cultures: Blood culture 07/11/2018 no growth today. Cryptococcal antigen : negative MRSA PCR: positive Blood culture 07/15/2018: in progress Urine culture 07/15/2018: no growth in 24 hours Sputum culture 07/15/18: MRSA, Jannette Assessment: 37 y/o male currently in long-term with history of HIV infection of unknown duration, noncompliant with antiretroviral medication, severe malnutrition; admitted on 07/11/2018, brought by law enforcement, due to 2-week history of shortness of breath, generalized weakness and productive cough: 1) Sepsis with new septic shock, off pressors x 24h. No fever. Etiology most likely pneumonia. Hepatitis panel negative. RPR nonreactive. CRP 2.7. Continue Cefepime and Linezolid. 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 Sputum culture 07/11/2018 no growth today. Chest CT showed bilateral patchy and somewhat confluent alveolar infiltrates and interstitial infiltrates. No effusions. Mild cardiomegaly. Sputum culture grew MRSA and Jannette 3) HIV, presumed AIDS: Patient has not taken his HIV medication for at least 6 months prior due to his incarceration. On admission he reported 40lbs unintentional weight loss for 2 months and intermittent loose stools over the past 2 weeks. VL 523,000/ CD4=7. Pneumocytosis Jirovecii positive. 4) Diarrhea: ? possible opportunistic infection. 5) Acute respiratory failure: not better, from pneumonia. worsening 6) Anemia Recommendations: -discontinue ganciclovir and Cefepime -Continue Linezolid 600mg every 12 hours, D4 - continue bactrim IV and solumedrol IV D8 - for severe PJP pneumonia with hypoxemia -follow-up Procalcitonin -follow-up CMV DNA PCR -follow-up G6PD level stat -contact isolation for MRSA prognosis poor, 60% mortality [facility] M: [phone] O:[phone] Subjective Date of service: 07/18/18 Principal diagnosis: Acute hypoxemic resp failure; Bilateral pneumonia ? PJP; HIV/AIDS Interval history: Patient seen and examined. Asleep, mostly unresponsive. mild distress observed. Objective - Exam Narrative Exam: General appearance: Asleep. Not easily arousable. mild distress observed. Eyes: anicteric sclerae, moist conjunctivae; no lid-lag; PERRLA HENT: Atraumatic; oropharynx +ETT +NGT Neck: Trachea midline; supple, no thyromegaly or lymphadenopathy Lungs: ryland crackles CV: tachycardic Abdomen: Soft, non-tender; no masses or hepatosplenomegaly Extremities: No peripheral edema or extremity lymphadenopathy Skin: Normal temperature, turgor and texture; no rash, ulcers or subcutaneous nodules Psych: calm Neuro: asleep, not easily arousable. - Constitutional Vitals: Vital Signs Temp Pulse Resp BP Pulse Ox 99.0 F 135 H 42 H 138/80 98 07/18/18 04:00 07/18/18 08:45 07/18/18 07:50 07/18/18 08:45 07/18/18 08:45 Temperature -Last 24 Hours Temperature 99.0 F Temperature 100.3 F Temperature 99.1 F Temperature 99.9 F Temperature 99.0 F - Labs CBC & Chem 7: 07/18/18 01:10 07/16/18 07:21 Labs: Abnormal lab results 07/12/18 07/12/18 07/18/18 Range/Units 19:29 19:29 01:10 RBC 2.20 L (3.65-5.03) M/mm3 Hgb 6.5 L (11.8-15.2) gm/dl Hct 19.2 L* (35.5-45.6) % RDW 16.0 H (13.2-15.2) % Lymph % (Auto) 7.2 L (13.4-35.0) % Lymph # 0.5 L (1.2-5.4) K/mm3 Seg Neutrophils % 89.9 H (40.0-70.0) % Abs Lymphs (Manual) 220 L (850-3900) cells/uL POC ABG pH (7.35-7.45) POC ABG pCO2 (35-45) POC ABG pO2 (80-105) Lymph Enumerat CD4/CD8 0.04 L (0.86-5.00) % CD3 Cells 88 H (57-85) % Absolute CD3 Count 194 L (840-3060) cells/uL % CD4 Cells 3 L (30-61) % Absolute CD4 Count 7 L (490-1740) cells/uL % CD8 Cells 75 H (12-42) % Absolute CD8 Count 177 L (180-1170) cells/uL % CD19 Cells 4 L (6-29) % Absolute CD19 Count 9 L (110-660) cells/uL HIV-1 RNA PCR copies/ml [id number] H Copies/mL HIV-1 RNA (PCR) log 5.72 H Log cps/mL Crossmatch 07/18/18 07/18/18 07/18/18 Range/Units 03:10 04:54 05:02 RBC (3.65-5.03) M/mm3 Hgb (11.8-15.2) gm/dl Hct (35.5-45.6) % RDW (13.2-15.2) % Lymph % (Auto) (13.4-35.0) % Lymph # (1.2-5.4) K/mm3 Seg Neutrophils % (40.0-70.0) % Abs Lymphs (Manual) (850-3900) cells/uL POC ABG pH 7.615 H (7.35-7.45) POC ABG pCO2 32.6 L 48.8 H (35-45) POC ABG pO2 79 L 118 H (80-105) Lymph Enumerat CD4/CD8 (0.86-5.00) % CD3 Cells (57-85) % Absolute CD3 Count (840-3060) cells/uL % CD4 Cells (30-61) % Absolute CD4 Count (490-1740) cells/uL % CD8 Cells (12-42) % Absolute CD8 Count (180-1170) cells/uL % CD19 Cells (6-29) % Absolute CD19 Count (110-660) cells/uL HIV-1 RNA PCR copies/ml Copies/mL HIV-1 RNA (PCR) log Log cps/mL Crossmatch See Detail
[2018-07-18] MEDS: BACTRIM 300 MG in D5W 500 ML IV SCH ×2 (11:45→17:43)
[2018-07-18] MEDS ORDERED: FLOMAX PO SCH (12:00)
[2018-07-18] MEDS ORDERED: VERSED IV PRN (12:44)
[2018-07-18] MEDS: TYLENOL FEEDTUBE PRN (13:31)
[2018-07-18] MEDS: CARDURA PO SCH (13:35)
[2018-07-18] MEDS: MIDAZOLAM 100 MG in NACL 0.9% 80 ML IV SCH (13:54)
[2018-07-18] MEDS: MAXIPIME/NS 2 GM/100 ML 2 GM/100 ML BAG IV SCH (14:06)
--- NOTE | 2018-07-18 14:39 | Progress Note ---
Assessment and Plan Assessment and plan: Patient is a 37 yo man with a history of HIV and tobacco dependency who presents from [facility] to [facility] ED with sob and cough. Pt admitted to [facility] and initiated on Pneumonia protocol. In the ED, temp 99.8, HR 104, R 29, O2 sat 77%, BP 94/50. WBC 6.1, Hg 9.6, Plat 398. Creat 0.6. Blood culture 07/11/2018 no growth today. Sputum culture 07/11/2018 no growth today. Chest CT showed bilateral patchy and somewhat confluent alveolar infiltrates and interstitial infiltrates. No effusions. Mild cardiomegaly. Patient required emergent intubation following admission to the [facility]. Patient unfortunately has remained on full ventilatory support and very resistant hypoxia currently on high level FIO2.Patient unfortunately has remained on full ventilatory support and very resistant hypoxia currently on high level FIO2. * CT head: No CT evidence of acute intracranial abnormality. Pansinus disease * CTA CHEST: IMPRESSION: No pulmonary embolus. Bilateral patchy and somewhat confluent alveolar infiltrates and interstitial infiltrates. Noeffusions. Mild cardiomegaly. Runnings likely reflect a viral pneumonia or inhalational process * CXR IMPRESSION: Heart size is normal.There are bilateral lower lobe infiltrates. These are slightly worse than the prior study.. There is no pleural effusion or pneumothorax. Endotracheal tube is in the mid trachea. NG tube is in the stomach. There is a right-sided PICC line. The tip is in the superior vena cava.. 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 Severe Protein Malnutrition: [employer] to follow AIDS with history of noncompliance: ID following AOCD: monitor cbc closely Elevated d/DIMER- NO PE noted Restraint renewed CCT 33 minutes History Interval history: Patient was seen and examined. Follow-up on current diagnosis of respiratory failure, still intubated and sedated. No overnight events reported to me. Imaging, nursing note, chart, labs and old chart reviewed. Discussed with nurse. Regional Construction Manager at bedside. Hospitalist Physical - Physical exam Narrative exam: Gen: thin, critically ill, intubated and sedated HEENT: NCAT, EOMI, PERRL, OP ETT and NGT in place Neck: supple, no JVD CVS/Heart: Regular tachycardia, normal S1S2, pulses present bilaterally Chest/Lungs: diminished bs bilateral, Symmetrical chest expansion, good air entry bilaterally GI/Abdomen: soft, good bowel sounds, no guarding or rebound /Bladder: no suprapubic tenderness, Extermity/Skin: no c/c/e, no obvious rash front side MSK: sedated Neuro: sedated Psych:sedated - Constitutional Vitals: Temp Pulse Resp BP Pulse Ox 99.0 F 137 H 35 H 133/82 97 07/18/18 04:00 07/18/18 12:45 07/18/18 12:45 07/18/18 12:45 07/18/18 12:45 General appearance: Present: cachectic, disheveled. Absent: mild distress Results - Labs CBC & Chem 7: 07/18/18 01:10 07/16/18 07:21 Labs: Laboratory Last Values WBC 7.0 K/mm3 (4.5-11.0) 07/18/18 01:10 RBC 2.20 M/mm3 (3.65-5.03) L 07/18/18 01:10 Hgb 6.5 gm/dl (11.8-15.2) L 07/18/18 01:10 Hct 19.2 % (35.5-45.6) L* 07/18/18 01:10 MCV 87 fl (84-94) 07/18/18 01:10 MCH 30 pg (28-32) 07/18/18 01:10 MCHC 34 % (32-34) 07/18/18 01:10 RDW 16.0 % (13.2-15.2) H 07/18/18 01:10 Plt Count 233 K/mm3 (140-440) 07/18/18 01:10 Lymph % (Auto) 7.2 % (13.4-35.0) L 07/18/18 01:10 [place] % (Auto) 2.8 % (0.0-7.3) 07/18/18 01:10 Eos % (Auto) 0.0 % (0.0-4.3) 07/18/18 01:10 Baso % (Auto) 0.1 % (0.0-1.8) 07/18/18 01:10 Lymph # 0.5 K/mm3 (1.2-5.4) L 07/18/18 01:10 [place] # 0.2 K/mm3 (0.0-0.8) 07/18/18 01:10 Eos # 0.0 K/mm3 (0.0-0.4) 07/18/18 01:10 Baso # 0.0 K/mm3 (0.0-0.1) 07/18/18 01:10 Seg Neutrophils % 89.9 % (40.0-70.0) H 07/18/18 01:10 Seg Neutrophils # 6.3 K/mm3 (1.8-7.7) 07/18/18 01:10 Abs Lymphs (Manual) 220 cells/uL (850-3900) L 07/12/18 19:29 1298.70 ng/mlDDU (0-234) H 07/11/18 15:04 POC ABG pH 7.441 (7.35-7.45) 07/18/18 05:02 POC ABG pCO2 48.8 (35-45) H 07/18/18 05:02 POC ABG pO2 118 (80-105) H 07/18/18 05:02 POC ABG HCO3 33.2 (22-26 mml/L) 07/18/18 05:02 POC ABG Total CO2 35 (23-27mmol/L) 07/18/18 05:02 POC ABG O2 Sat 99 07/18/18 05:02 POC ABG Base Excess 9 ((-2) - (+3)mmol/L) 07/18/18 05:02 60 % 07/18/18 05:02 Sodium 136 mmol/L (137-145) L 07/16/18 07:21 Potassium 4.0 mmol/L (3.6-5.0) 07/16/18 07:21 Chloride 100.6 mmol/L (98-107) 07/16/18 07:21 Carbon Dioxide 27 mmol/L (22-30) 07/16/18 07:21 12 mmol/L 07/16/18 07:21 BUN 11 mg/dL (9-20) 07/16/18 07:21 0.6 mg/dL (0.8-1.5) L 07/16/18 07:21 Estimated GFR > 60 ml/min 07/16/18 07:21 18 % 07/16/18 07:21 Glucose 118 mg/dL (75-100) H 07/16/18 07:21 POC Glucose 164 (70-105) H 07/18/18 12:59 Lactic Acid 1.80 mmol/L (0.7-2.0) 07/11/18 21:01 Calcium 7.5 mg/dL (8.4-10.2) L 07/16/18 07:21 0.20 mg/dL (0.1-1.2) 07/11/18 14:06 AST 30 units/L (5-40) 07/11/18 14:06 ALT 11 units/L (7-56) 07/11/18 14:06 50 units/L (35-129) 07/11/18 14:06 731 units/L (91-180) H 07/12/18 19:29 < 0.010 ng/mL (0.00-0.029) 07/11/18 15:04 2.70 mg/dL (0.00-1.30) H 07/15/18 14:09 NT-Pro-B Natriuret Pep 249.7 pg/mL (0-450) 07/11/18 15:04 6.3 g/dL (6.3-8.2) 07/11/18 14:06 2.1 g/dL (3.9-5) L 07/11/18 14:06 0.5 % 07/11/18 14:06 Triglycerides 148 mg/dL (2-149) 07/17/18 05:00 Yellow (Yellow) 07/15/18 14:14 Clear (Clear) 07/15/18 14:14 6.0 (5.0-7.0) 07/15/18 14:14 Ur Specific [place] 1.015 (1.003-1.030) 07/15/18 14:14 30 mg/dl mg/dL (Negative) 07/15/18 14:14 Neg mg/dL (Negative) 07/15/18 14:14 Neg mg/dL (Negative) 07/15/18 14:14 Neg (Negative) 07/15/18 14:14 Neg (Negative) 07/15/18 14:14 Neg (Negative) 07/15/18 14:14 < 2.0 mg/dL (<2.0) 07/15/18 14:14 Ur Leukocyte Esterase Neg (Negative) 07/15/18 14:14 2.0 /HPF (0.0-6.0) 07/15/18 14:14 6.0 /HPF (0.0-6.0) 07/15/18 14:14 Lymph Enumerat CD4/CD8 0.04 (0.86-5.00) L 07/12/18 19:29 % CD3 Cells 88 % (57-85) H 07/12/18 19:29 194 cells/uL (840-3060) L 07/12/18 19:29 % CD4 Cells 3 % (30-61) L 07/12/18 19:29 7 cells/uL (490-1740) L 07/12/18 19:29 % CD8 Cells 75 % (12-42) H 07/12/18 19:29 177 cells/uL (180-1170) L 07/12/18 19:29 % CD19 Cells 4 % (6-29) L 07/12/18 19:29 9 cells/uL (110-660) L 07/12/18 19:29 RPR Nonreactive (Nonreactive) 07/12/18 23:38 Hepatitis A IgM Ab Non-reactive (NonReactive) 07/12/18 23:38 Hep Bs Antigen Non-reactive (Negative) 07/12/18 23:38 Hep B Core IgM Ab Non-reactive (NonReactive) 07/12/18 23:38 Non-reactive (NonReactive) 07/12/18 23:38 HIV-1 RNA PCR copies/ml 188068 Copies/mL H 07/12/18 19:29 5.72 Log cps/mL H 07/12/18 19:29 Flexitest 1 H 07/16/18 07:21 Blood Type O POSITIVE 07/18/18 03:10 Antibody Screen Positive 07/18/18 03:10 Prewarmed Antibody Srcn Positive 07/18/18 03:10 Antibody Identification Anti-Adrianna 07/18/18 03:10 Direct Antiglob Test Negative 07/18/18 03:10 NIKUNJ, Poly Interpret Negative 07/18/18 03:10 Crossmatch See Detail 07/18/18 03:10 Active Medications - Current Medications Current Medications: Generic Name Dose Route Start Last Admin Trade Name Freq PRN Reason Stop Dose Admin Acetaminophen 650 mg 07/12/18 18:07 07/18/18 13:31 Tylenol FEEDTUBE 650 mg Q6H PRN Administration Non Cardiac Pain or Temp>100.5 Albuterol 2.5 mg 07/11/18 17:16 Proventil IH Q3HRT PRN Shortness Of Breath Lipase/Protease/Amylase 1 each 07/13/18 12:[address] 10,500 Unit FEEDTUBE PRN PRN For Clogged Feeding Tube Docusate Sodium 100 mg 07/15/18 12:00 07/18/18 09:26 Colace PO 100 mg BID HE Administration Doxazosin Mesylate 2 mg 07/18/18 12:00 07/18/18 13:35 Cardura PO 2 mg QDAY HE Administration Enoxaparin Sodium 40 mg 07/12/18 10:00 07/18/18 09:04 Lovenox SUB-Q 40 mg QDAY@1000 HE Administration Famotidine 20 mg 07/16/18 22:00 07/18/18 09:04 Pepcid PO 20 mg BID HE Administration Fentanyl 50 mcg 07/12/18 00:26 Sublimaze IV Q10MIN PRN ANALGESIA Hydrophilic Ointment 1 applic 07/12/18 13:30 Vaseline Lip Therapy TP Q2HR PRN Dry Lips Trimethoprim/Sulfamethoxazole 518.75 mls @ 350 mls/hr 07/11/18 18:00 07/18/18 11:45 300 mg/ Dextrose IV 350 mls/hr Q6HR HE Administration Protocol Fentanyl Citrate 2,000 mcg in 100 mls @ 3.065 mls/hr 07/12/18 01:00 07/18/18 07:50 Fentanyl Drip Premix IV 4 mcg/kg/hr TITR HE 12.26 mls/hr Administration Protocol 1 MCG/KG/HR Propofol 1,000 mg in 100 mls @ 1.839 mls/hr 07/12/18 01:00 07/18/18 09:00 Diprivan 10 Mg/Ml IV 40 mcg/kg/min TITR HE 14.712 mls/hr Administration Protocol 5 MCG/KG/MIN Dopamine HCl/Dextrose 800 mg in 250 mls @ 2.299 mls/hr 07/12/18 22:00 07/15/18 14:28 Intropin Drip 800 Mg/D5w 250 Ml IV 0 mcg/kg/min TITR HE 0 mls/hr Titration Protocol 2 MCG/KG/MIN Cefepime HCl 2 gm in 100 mls @ 200 mls/hr 07/15/18 14:00 07/18/18 14:06 Maxipime/Ns 2 Gm/100 Ml IV 200 mls/hr Q8HR HE Administration Protocol Linezolid 600 mg in 300 mls @ 300 mls/hr 07/15/18 14:00 07/18/18 09:26 Zyvox 600mg/300ml IV 300 mls/hr Q12HR HE Administration Protocol Ganciclovir Sodium 350 mg/ 250 mls @ 100 mls/hr 07/16/18 15:00 07/18/18 04:41 Sodium Chloride IV 100 mls/hr Q12H HE Infusion Midazolam HCl 100 mg/ Sodium 100 mls @ 2 mls/hr 07/18/18 13:30 07/18/18 13:54 Chloride IV 2 mg/hr TITR HE 2 mls/hr Administration Protocol 2 MG/HR Methylprednisolone Sodium Succinate 40 mg 07/16/18 14:00 07/18/18 13:32 Solu-Medrol IV 40 mg Q8HR HE Administration Midazolam HCl 2 mg 07/16/18 13:06 07/18/18 13:32 Versed IV 2 mg Q2H PRN Administration AGITATION Midazolam HCl 2 mg 07/18/18 12:44 Versed IV Q10MIN PRN Sedation Multi-Ingred Cream/Lotion/Oil/Oint 1 applic 07/12/18 13:30 Artificial Tears Ophth Oint OU Q4HR PRN Dry Eye(s) Quetiapine Fumarate 200 mg 07/16/18 14:00 07/18/18 09:04 Seroquel PO 200 mg BID HE Administration Simple Syrup 15 ml 07/13/18 12:30 Simple Syrup FEEDTUBE PRN PRN Hypoglycemia Simple Syrup 30 ml 07/13/18 12:30 Simple Syrup FEEDTUBE PRN PRN Hypoglycemia Sodium Bicarbonate 325 mg 07/13/18 12:30 Sodium Bicarbonate FEEDTUBE PRN PRN For Clogged Feeding Tube Sodium Chloride 10 ml 07/11/18 22:00 07/17/18 21:13 Sodium Chloride Flush Syringe 10 Ml IV 10 ml BID HE Administration Sodium Chloride 10 ml 07/11/18 17:16 07/18/18 09:00 Sodium Chloride Flush Syringe 10 Ml IV 10 ml PRN PRN Administration LINE FLUSH Nutrition/Malnutrition Assess - Dietary Evaluation Nutrition/Malnutrition Findings: Nutrition Notes Start: 07/12/18 09:38 Freq: Status: Active Protocol: Document 07/16/18 15:54 RM (Rec: 07/16/18 16:00 RM [id number]) Nutrition Notes Initial or Follow up Reassessment Other Pertinent Diagnosis HIV/AIDS, SOB, weakness, nicotine dependence, PCP, hyponatremia syndrome Current Diet Vital 1.2 at 65 ml/hr Labs/Tests Reviewed Pertinent Medications Solu-medrol Diprivan Height 5 ft 11 in Weight 66.7 kg [place] Body Weight (kg) 78.18 BMI 20.5 Weight change and time frame Current wt obtained from scale Subjective/Other Information Observed Vital 1.2 infusing at 65 ml/hr. Per nurse pt is tolerating TF. Percent of energy/protein needs met: 96%/100% Burn Absent Trauma Absent #2 Nutrition Diagnosis Inadequate oral intake Diagnosis Progress(for reassessment Continues documentation) #1 Nutrition Diagnosis Malnutrition Diagnosis Progress(for reassessment Continues documentation) Is patient on ventilator? Yes Is Patient Ambulatory and/or Out of Bed No REE-([facility]-confined to bed) [phone] Calculation Used for Recommendations [facility] Additional Notes Protein: 74- 92 g (1.2-1.5 g/ kg) Fluid: 1 ml/kcal Nutrition Intervention Nutrition Support: Vital 1.2 at 65 mL/hr Flush 100 mL q 4 hr Kcal 1,872 Protein (gm) 117 Carbohydrates (gm) 173 Fat (gm) 84 Fluid (mL) 1,265 Fiber (gm) 8 Goal #1 TF tolerance Goal #2 TF to meet at least 80% of [place] and pro needs Anticipated Discharge Needs: Unable to determine at this time Follow-Up By: 07/23/18 Additional Comments Follow for TF tolerance
--- NOTE | 2018-07-19 02:21 | XRay Report ---
PROCEDURE: XR CHEST 1V AP TECHNIQUE: Chest radiograph single view. HISTORY: follow up respiratory failure COMPARISONS: 07/18/2018 . FINDINGS: Heart: Normal. Mediastinum/Vessels: Normal. Lungs/Pleural space: Scattered infiltrates identified in both mid and lower lungs. No effusion or pn eumothorax. Bony thorax: No acute osseous abnormality. Life support devices: The endotracheal tube ends 4 cm above the quan. A nasogastric tube ends below the hemidiaphragms. Right PICC catheter ends in the SVC. IMPRESSION: Scattered infiltrates identified in both mid and lower lungs. Tubes and lines are proper ly positioned.. This document is electronically signed by Ava Corley DO., Jul 19 2018 02:19:44 AM ET
[2018-07-19] MEDS: SOLU-Medrol IV SCH ×3 (06:57→21:34)
[2018-07-19 08:28] LABS: Hemoglobin 7.4 gm/dl (11.8-15.2); Mean Corpuscular HGB Conc 34 % (32-34); Mean Corpuscular Volume 88 fl (84-94); Platelet Count 268 K/mm3 (140-440); Red Blood Count 2.51 M/mm3 (3.65-5.03); Red Cell Distribution Width 15.5 % (13.2-15.2)
[2018-07-19 08:48] LABS: BUN/Creatinine Ratio 43; Blood Urea Nitrogen 17 mg/dL (9-20); Calcium 7.5 mg/dL (8.4-10.2); Hemolysis Index 8
--- NOTE | 2018-07-19 09:12 | Progress Note ---
Assessment and Plan Acute Hypoxic respiratory failure on mechanical ventilation Severe sepsis with septic shock Severe ARDS Sepsis present on admission with grater than 2 SOFA criteria PJP (pneumocystis jiroveci pneumonia) Diarrhea Hyponatermia Syndrome Moderate Protein Malnutrition AIDS ANEMIA Elevated d/DIMER- NO PE noted Nicotine dependance/Tobacco use disorder - Wean vasopressor support for MAP>65 -Titrate sedation to RASS of 0 to -1 -VAP bundle addressed - Continue lung protective strategies per ARDS net protocol -Permissive hypercapnia is acceptable - Antibiotics, anti-infectives per ID service. -ART per ID service, Antibiotic prophylaxis for OI per ID - Continue bronchodilators with pulmonary hygiene per RT - Continue full MVS -Daily CXR and ABG for now -Wean FIO2 for O2 sats>90% - Monitor renal indices closely - Avoid nephrotoxic agents - Strict intake and output monitoring - Tube feedings, on Vital AF at 65ml/hour - Aspiration precautions. HOB >40 -Stress ulcer prophylaxis -VTE prophylaxis - Accuchecks with glycemic control. Target glucose of 140-180 mg/dL -Can stop accuchecks if glucose levels have been within range for 48 hours -Supportive transfusions as indicated for HgB<7g/dL - Maintenance of sleep -wake cycle - Mobility as tolerated by hemodynamics - Influenza and pneumonia vaccination per protocol ..care plan discussed at length with RN/RT at the bedside -Discussed in ICU-IDT rounds The high probability of a clinically significant, sudden or life threatening d eterioration of the [pulmonary, cardiovascular] system(s) required my full and direct attention, intervention and personal management. The aggregate critical care time was [35] minutes. This time is in addition to time spent performing reported procedures but includes the following: [x] Data Review and interpretation [x] Patient assessment and monitoring of vital signs [x] Documentation [x] Medication orders and management Subjective Date of service: 07/19/18 Principal diagnosis: Acute hypoxemic resp failure; Bilateral pneumonia ? PJP; HIV/AIDS Interval history: Patient is seen today for: Acute hypoxemic respiratory failure, on mechanical ventilatory support; Bilateral pneumonia, high suspicion for Pneumocystis jiroveci pneumonia; Human immunodeficiency virus/acquired immunodeficiency syndrome,noncompliant with therapy; Hyponatremia; Severe protein calorie maln utrition. Seen and examined at bedside; 24-hour events reviewed; nursing and respiratory care staff consulted; no adverse overnight events reported to me; remains critically ill with high ventilatory demands and on critical drips. Acute desaturations with minimal movement. No fevers, no vomiting. No bowel movement in the past 6 days per RN, just had one Objective Vital Signs - 12hr 07/18/18 07/18/18 07/18/18 21:15 21:30 21:45 Temperature Pulse Rate 117 H 106 H 94 H Pulse Rate [ From Monitor] Respiratory 28 H 22 Rate Blood Pressure 127/74 112/68 112/68 O2 Sat by Pulse 92 94 93 Oximetry 07/18/18 07/18/18 07/18/18 22:00 22:15 22:30 Temperature Pulse Rate 100 H 110 H 119 H Pulse Rate [ From Monitor] Respiratory 30 H 25 H 25 H Rate Blood Pressure 122/71 112/68 117/72 O2 Sat by Pulse 92 90 90 Oximetry 07/18/18 07/18/18 07/18/18 22:45 22:54 23:00 Temperature Pulse Rate 124 H 115 H 129 H Pulse Rate [ From Monitor] Respiratory 28 H 14 17 Rate Blood Pressure 117/72 117/72 111/71 O2 Sat by Pulse 88 90 88 Oximetry 07/18/18 07/18/18 07/18/18 23:15 23:18 23:21 Temperature Pulse Rate 117 H 119 H 115 H Pulse Rate [ From Monitor] Respiratory 26 H 24 Rate Blood Pressure 117/72 111/71 117/72 O2 Sat by Pulse 91 92 92 Oximetry 07/18/18 07/18/18 07/19/18 23:30 23:45 00:00 Temperature 97.4 F L Pulse Rate 116 H 111 H 110 H Pulse Rate [ 122 H From Monitor] Respiratory 20 24 22 Rate Blood Pressure 119/74 119/74 126/79 O2 Sat by Pulse 90 91 89 Oximetry 07/19/18 07/19/18 07/19/18 00:15 00:30 00:45 Temperature Pulse Rate 110 H 111 H 104 H Pulse Rate [ From Monitor] Respiratory 29 H 26 H 24 Rate Blood Pressure 126/79 128/80 126/79 O2 Sat by Pulse 91 89 90 Oximetry 07/19/18 07/19/18 07/19/18 01:00 01:15 01:30 Temperature Pulse Rate 118 H 109 H 109 H Pulse Rate [ From Monitor] Respiratory 29 H 27 H 28 H Rate Blood Pressure 132/84 128/80 130/86 O2 Sat by Pulse 89 91 90 Oximetry 07/19/18 07/19/18 07/19/18 01:45 02:00 02:15 Temperature Pulse Rate 109 H 108 H 106 H Pulse Rate [ From Monitor] Respiratory 26 H 20 24 Rate Blood Pressure 132/84 131/87 130/86 O2 Sat by Pulse 94 91 94 Oximetry 07/19/18 07/19/18 07/19/18 02:30 02:45 03:00 Temperature Pulse Rate 115 H 112 H 115 H Pulse Rate [ From Monitor] Respiratory 30 H 27 H 34 H Rate Blood Pressure 143/87 131/87 141/83 O2 Sat by Pulse 92 94 94 Oximetry 07/19/18 07/19/18 07/19/18 03:10 03:15 03:30 Temperature Pulse Rate 118 H 118 H 111 H Pulse Rate [ From Monitor] Respiratory 32 H 28 H Rate Blood Pressure 141/83 141/83 127/85 O2 Sat by Pulse 93 92 94 Oximetry 07/19/18 07/19/18 07/19/18 03:45 04:00 04:15 Temperature 98.7 F Pulse Rate 119 H 113 H 110 H Pulse Rate [ 113 H From Monitor] Respiratory 29 H 28 H 27 H Rate Blood Pressure 141/83 127/85 142/91 O2 Sat by Pulse 95 95 95 Oximetry 07/19/18 07/19/18 07/19/18 04:30 04:45 05:00 Temperature Pulse Rate 116 H 102 H 111 H Pulse Rate [ From Monitor] Respiratory 30 H 24 21 Rate Blood Pressure 141/95 142/91 129/81 O2 Sat by Pulse 95 93 94 Oximetry 07/19/18 07/19/18 07/19/18 05:15 05:30 05:45 Temperature Pulse Rate 111 H 103 H 106 H Pulse Rate [ From Monitor] Respiratory 27 H 30 H 30 H Rate Blood Pressure 141/95 130/83 129/81 O2 Sat by Pulse 96 93 98 Oximetry 07/19/18 07/19/18 07/19/18 06:01 06:15 06:30 Temperature Pulse Rate 106 H 109 H 110 H Pulse Rate [ From Monitor] Respiratory 26 H 27 H 27 H Rate Blood Pressure 168/96 168/96 159/98 O2 Sat by Pulse 96 96 94 Oximetry 07/19/18 07/19/18 07/19/18 06:45 07:00 07:15 Temperature Pulse Rate 112 H 107 H 107 H Pulse Rate [ From Monitor] Respiratory 26 H 23 30 H Rate Blood Pressure 159/98 176/95 176/95 O2 Sat by Pulse 96 95 97 Oximetry 07/19/18 07/19/18 07/19/18 07:30 07:36 07:45 Temperature 97.7 F Pulse Rate 109 H 108 H Pulse Rate [ From Monitor] Respiratory 25 H 27 H Rate Blood Pressure 117/73 117/73 O2 Sat by Pulse 96 98 Oximetry 07/19/18 07/19/18 07/19/18 08:00 08:15 08:16 Temperature Pulse Rate 108 H 106 H 107 H Pulse Rate [ From Monitor] Respiratory 29 H 24 Rate Blood Pressure 118/76 118/76 176/95 O2 Sat by Pulse 95 95 97 Oximetry 07/19/18 07/19/18 07/19/18 08:31 08:45 09:00 Temperature Pulse Rate 114 H 112 H 120 H Pulse Rate [ From Monitor] Respiratory 25 H 29 H 38 H Rate Blood Pressure 118/76 128/77 131/86 O2 Sat by Pulse 94 95 93 Oximetry Constitutional: appears uncomfortable, other (young AAM; normocephalic and atraumatic) Eyes: non-icteric ENT: oropharynx moist, other (ETT 23 cm SHONA) Neck: supple, no lymphadenopathy, no JVD Effort: mildly labored Ascultation: Bilateral: diminished breath sounds, rales Percussion: Bilateral: not dull Cardiovascular: regular rate and rhythm Gastrointestinal: normoactive bowel sounds, soft, non-tender, non-distended Integumentary: normal Extremities: no cyanosis, no edema, pulses normal, no ischemia or petechiae Neurologic: normal mental status, non-focal exam, pupils equal and round, CN II- XII normal, motor strength normal and Psychiatric: anxious CBC and BMP: 07/19/18 08:10 07/19/18 08:10 ABG, PT/INR, D-dimer: ABG POC ABG pH 7.339 (7.35-7.45) L 07/19/18 03:53 POC ABG pCO2 65.0 (35-45) H 07/19/18 03:53 POC ABG pO2 86 (80-105) 07/19/18 03:53 POC ABG HCO3 35.0 (22-26 mml/L) 07/19/18 03:53 POC ABG Total CO2 37 (23-27mmol/L) 07/19/18 03:53 POC ABG O2 Sat 95 07/19/18 03:53 PT/INR, D-dimer 1298.70 ng/mlDDU (0-234) H 07/11/18 15:04 Abnormal lab findings: Abnormal Labs 07/11/18 07/11/18 07/11/18 14:06 14:06 15:04 RBC 3.30 L Hgb 9.6 L Hct 28.7 L RDW Lymph % (Auto) Lymph # Seg Neutrophils % Abs Lymphs (Manual) D-Dimer 1298.70 H POC ABG pH POC ABG pCO2 POC ABG pO2 Sodium 132 L Chloride Carbon Dioxide Creatinine 0.6 L Glucose 103 H POC Glucose Calcium 7.3 L Lactate Dehydrogenase C-Reactive Protein Albumin 2.1 L Lymph Enumerat CD4/CD8 % CD3 Cells Absolute CD3 Count % CD4 Cells Absolute CD4 Count % CD8 Cells Absolute CD8 Count % CD19 Cells Absolute CD19 Count HIV-1 RNA PCR copies/ml HIV-1 RNA (PCR) log Miscellaneous Test Crossmatch 07/11/18 07/11/18 07/12/18 17:36 22:15 00:25 RBC Hgb Hct RDW Lymph % (Auto) Lymph # Seg Neutrophils % Abs Lymphs (Manual) D-Dimer POC ABG pH 7.289 L POC ABG pCO2 POC ABG pO2 66 L Sodium Chloride Carbon Dioxide Creatinine Glucose POC Glucose Calcium Lactate Dehydrogenase 591 H C-Reactive Protein Albumin Lymph Enumerat CD4/CD8 % CD3 Cells Absolute CD3 Count % CD4 Cells Absolute CD4 Count % CD8 Cells Absolute CD8 Count % CD19 Cells Absolute CD19 Count HIV-1 RNA PCR copies/ml HIV-1 RNA (PCR) log Miscellaneous Test see below H Crossmatch 07/12/18 07/12/18 07/12/18 00:41 05:37 19:29 RBC Hgb Hct RDW Lymph % (Auto) Lymph # Seg Neutrophils % Abs Lymphs (Manual) D-Dimer POC ABG pH 7.302 L 7.275 L POC ABG pCO2 47.1 H POC ABG pO2 Sodium Chloride Carbon Dioxide Creatinine Glucose POC Glucose Calcium Lactate Dehydrogenase 731 H C-Reactive Protein Albumin Lymph Enumerat CD4/CD8 % CD3 Cells Absolute CD3 Count % CD4 Cells Absolute CD4 Count % CD8 Cells Absolute CD8 Count % CD19 Cells Absolute CD19 Count HIV-1 RNA PCR copies/ml HIV-1 RNA (PCR) log Miscellaneous Test Crossmatch 07/12/18 07/12/18 07/13/18 19:29 19:29 04:03 RBC Hgb Hct RDW Lymph % (Auto) Lymph # Seg Neutrophils % Abs Lymphs (Manual) 220 L D-Dimer POC ABG pH 7.254 L POC ABG pCO2 49.2 H POC ABG pO2 Sodium Chloride Carbon Dioxide Creatinine Glucose POC Glucose Calcium Lactate Dehydrogenase C-Reactive Protein Albumin Lymph Enumerat CD4/CD8 0.04 L % CD3 Cells 88 H Absolute CD3 Count 194 L % CD4 Cells 3 L Absolute CD4 Count 7 L % CD8 Cells 75 H Absolute CD8 Count 177 L % CD19 Cells 4 L Absolute CD19 Count 9 L HIV-1 RNA PCR copies/ml 539939 H HIV-1 RNA (PCR) log 5.72 H Miscellaneous Test Crossmatch 07/13/18 07/13/18 07/13/18 05:46 12:23 18:31 RBC Hgb Hct RDW Lymph % (Auto) Lymph # Seg Neutrophils % Abs Lymphs (Manual) D-Dimer POC ABG pH POC ABG pCO2 POC ABG pO2 Sodium Chloride Carbon Dioxide Creatinine Glucose POC Glucose 68 L 106 H 112 H Calcium Lactate Dehydrogenase C-Reactive Protein Albumin Lymph Enumerat CD4/CD8 % CD3 Cells Absolute CD3 Count % CD4 Cells Absolute CD4 Count % CD8 Cells Absolute CD8 Count % CD19 Cells Absolute CD19 Count HIV-1 RNA PCR copies/ml HIV-1 RNA (PCR) log Miscellaneous Test Crossmatch 07/14/18 07/14/18 07/14/18 04:19 05:36 05:36 RBC 2.99 L Hgb 8.8 L Hct 25.7 L RDW 15.5 H Lymph % (Auto) Lymph # Seg Neutrophils % Abs Lymphs (Manual) D-Dimer POC ABG pH 7.337 L POC ABG pCO2 POC ABG pO2 Sodium 135 L Chloride Carbon Dioxide 21 L Creatinine 0.7 L Glucose 123 H POC Glucose Calcium 8.2 L Lactate Dehydrogenase C-Reactive Protein Albumin Lymph Enumerat CD4/CD8 % CD3 Cells Absolute CD3 Count % CD4 Cells Absolute CD4 Count % CD8 Cells Absolute CD8 Count % CD19 Cells Absolute CD19 Count HIV-1 RNA PCR copies/ml HIV-1 RNA (PCR) log Miscellaneous Test Crossmatch 07/14/18 07/14/18 07/14/18 12:14 14:33 17:18 RBC Hgb Hct RDW Lymph % (Auto) Lymph # Seg Neutrophils % Abs Lymphs (Manual) D-Dimer POC ABG pH 7.325 L POC ABG pCO2 POC ABG pO2 75 L Sodium Chloride Carbon Dioxide Creatinine Glucose POC Glucose 174 H 114 H Calcium Lactate Dehydrogenase C-Reactive Protein Albumin Lymph Enumerat CD4/CD8 % CD3 Cells Absolute CD3 Count % CD4 Cells Absolute CD4 Count % CD8 Cells Absolute CD8 Count % CD19 Cells Absolute CD19 Count HIV-1 RNA PCR copies/ml HIV-1 RNA (PCR) log Miscellaneous Test Crossmatch 07/15/18 07/15/18 07/15/18 00:17 12:29 12:29 RBC 2.64 L Hgb 7.5 L Hct 22.9 L RDW 15.4 H Lymph % (Auto) 7.0 L Lymph # 0.4 L Seg Neutrophils % 89.6 H Abs Lymphs (Manual) D-Dimer POC ABG pH POC ABG pCO2 POC ABG pO2 Sodium Chloride Carbon Dioxide Creatinine 0.6 L Glucose 124 H POC Glucose 113 H Calcium 7.3 L Lactate Dehydrogenase C-Reactive Protein Albumin Lymph Enumerat CD4/CD8 % CD3 Cells Absolute CD3 Count % CD4 Cells Absolute CD4 Count % CD8 Cells Absolute CD8 Count % CD19 Cells Absolute CD19 Count HIV-1 RNA PCR copies/ml HIV-1 RNA (PCR) log Miscellaneous Test Crossmatch 07/15/18 07/16/18 07/16/18 14:09 04:46 07:21 RBC Hgb Hct RDW Lymph % (Auto) Lymph # Seg Neutrophils % Abs Lymphs (Manual) D-Dimer POC ABG pH 7.282 L POC ABG pCO2 52.6 H POC ABG pO2 63 L Sodium Chloride Carbon Dioxide Creatinine Glucose POC Glucose Calcium Lactate Dehydrogenase C-Reactive Protein 2.70 H Albumin Lymph Enumerat CD4/CD8 % CD3 Cells Absolute CD3 Count % CD4 Cells Absolute CD4 Count % CD8 Cells Absolute CD8 Count % CD19 Cells Absolute CD19 Count HIV-1 RNA PCR copies/ml HIV-1 RNA (PCR) log Miscellaneous Test Flexitest 1 H Crossmatch 07/16/18 07/16/18 07/16/18 07:21 07:21 16:16 RBC 2.48 L Hgb 7.2 L Hct 21.5 L RDW 15.7 H Lymph % (Auto) Lymph # Seg Neutrophils % Abs Lymphs (Manual) D-Dimer POC ABG pH 7.251 L POC ABG pCO2 62.2 H POC ABG pO2 Sodium 136 L Chloride Carbon Dioxide Creatinine 0.6 L Glucose 118 H POC Glucose Calcium 7.5 L Lactate Dehydrogenase C-Reactive Protein Albumin Lymph Enumerat CD4/CD8 % CD3 Cells Absolute CD3 Count % CD4 Cells Absolute CD4 Count % CD8 Cells Absolute CD8 Count % CD19 Cells Absolute CD19 Count HIV-1 RNA PCR copies/ml HIV-1 RNA (PCR) log Miscellaneous Test Crossmatch 07/17/18 07/18/18 07/18/18 04:01 01:10 03:10 RBC 2.20 L Hgb 6.5 L Hct 19.2 L* RDW 16.0 H Lymph % (Auto) 7.2 L Lymph # 0.5 L Seg Neutrophils % 89.9 H Abs Lymphs (Manual) D-Dimer POC ABG pH 7.245 L POC ABG pCO2 63.8 H POC ABG pO2 75 L Sodium Chloride Carbon Dioxide Creatinine Glucose POC Glucose Calcium Lactate Dehydrogenase C-Reactive Protein Albumin Lymph Enumerat CD4/CD8 % CD3 Cells Absolute CD3 Count % CD4 Cells Absolute CD4 Count % CD8 Cells Absolute CD8 Count % CD19 Cells Absolute CD19 Count HIV-1 RNA PCR copies/ml HIV-1 RNA (PCR) log Miscellaneous Test Crossmatch See Detail 07/18/18 07/18/18 07/18/18 04:54 05:02 12:59 RBC Hgb Hct RDW Lymph % (Auto) Lymph # Seg Neutrophils % Abs Lymphs (Manual) D-Dimer POC ABG pH 7.615 H POC ABG pCO2 32.6 L 48.8 H POC ABG pO2 79 L 118 H Sodium Chloride Carbon Dioxide Creatinine Glucose POC Glucose 164 H Calcium Lactate Dehydrogenase C-Reactive Protein Albumin Lymph Enumerat CD4/CD8 % CD3 Cells Absolute CD3 Count % CD4 Cells Absolute CD4 Count % CD8 Cells Absolute CD8 Count % CD19 Cells Absolute CD19 Count HIV-1 RNA PCR copies/ml HIV-1 RNA (PCR) log Miscellaneous Test Crossmatch 07/18/18 07/18/18 07/19/18 18:25 20:39 03:53 RBC Hgb Hct RDW Lymph % (Auto) Lymph # Seg Neutrophils % Abs Lymphs (Manual) D-Dimer POC ABG pH 7.339 L POC ABG pCO2 59.9 H 65.0 H POC ABG pO2 69 L Sodium Chloride Carbon Dioxide Creatinine Glucose POC Glucose 155 H Calcium Lactate Dehydrogenase C-Reactive Protein Albumin Lymph Enumerat CD4/CD8 % CD3 Cells Absolute CD3 Count % CD4 Cells Absolute CD4 Count % CD8 Cells Absolute CD8 Count % CD19 Cells Absolute CD19 Count HIV-1 RNA PCR copies/ml HIV-1 RNA (PCR) log Miscellaneous Test Crossmatch 07/19/18 07/19/18 08:10 08:10 RBC 2.51 L Hgb 7.4 L Hct 22.0 L RDW 15.5 H Lymph % (Auto) Lymph # Seg Neutrophils % Abs Lymphs (Manual) D-Dimer POC ABG pH POC ABG pCO2 POC ABG pO2 Sodium 130 L Chloride 89.0 L Carbon Dioxide 33 H Creatinine 0.4 L Glucose 150 H POC Glucose Calcium 7.5 L Lactate Dehydrogenase C-Reactive Protein Albumin Lymph Enumerat CD4/CD8 % CD3 Cells Absolute CD3 Count % CD4 Cells Absolute CD4 Count % CD8 Cells Absolute CD8 Count % CD19 Cells Absolute CD19 Count HIV-1 RNA PCR copies/ml HIV-1 RNA (PCR) log Miscellaneous Test Crossmatch Allied health notes reviewed: nursing
[2018-07-19] MEDS: ZYVOX 600MG/300ML 600 MG/300 ML BAG IV SCH ×2 (09:52→21:34)
[2018-07-19] MEDS: COLACE PO SCH ×2 (09:54→21:34)
[2018-07-19] MEDS: PEPCID PO SCH ×2 (09:54→21:40)
[2018-07-19] MEDS: CARDURA PO SCH (09:56)
[2018-07-19] MEDS: SODIUM CHLORIDE FLUSH SYRINGE 10 ML IV SCH (11:08)
[2018-07-19] MEDS: BACTRIM 300 MG in D5W 500 ML IV SCH ×3 (11:17→18:16)
--- NOTE | 2018-07-19 11:41 | Progress Note ---
Assessment and Plan Cultures: Blood culture 07/11/2018 no growth today. Cryptococcal antigen : negative MRSA PCR: positive Blood culture 07/15/2018: in progress Urine culture 07/15/2018: no growth in 24 hours Sputum culture 07/15/18: MRSA, Jannette Assessment: 37 y/o male currently in [place] [facility] with history of HIV infection of unknown duration, noncompliant with antiretroviral medication, severe malnutrition; admitted on 07/11/2018, brought by law enforcement, due to 2-week history of shortness of breath, generalized weakness and productive cough: 1) Sepsis with new septic shock, off pressors. No fever. Etiology most likely pneumonia. Hepatitis panel negative. RPR nonreactive. CRP 2.7. Procalcitonin 3.09. Continue Cefepime and Linezolid. 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 Sputum culture 07/11/2018 no growth today. Chest CT showed bilateral patchy and somewhat confluent alveolar infiltrates and interstitial infiltrates. No effusions. Mild cardiomegaly. Sputum culture grew MRSA and Jannette 3) HIV, presumed AIDS: Patient has not taken his HIV medication for at least 6 months prior due to his incarceration. On admission he reported 40lbs unintentional weight loss for 2 months and intermittent loose stools over the past 2 weeks. VL 523,000/ CD4=7. Pneumocytosis Jirovecii positive. 4) Diarrhea: ? possible opportunistic infection. 5) Acute respiratory failure: not better, from pneumonia. worsening 6) Anemia Recommendations: -Continue Linezolid 600mg every 12 hours, D5 - continue bactrim IV and solumedrol IV D8 - for severe PJP pneumonia with hypoxemia -follow-up CMV DNA PCR -follow-up G6PD level stat -contact isolation for MRSA prognosis poor, 60% mortality [facility] M: [phone] O:[phone] Subjective Date of service: 07/19/18 Principal diagnosis: Acute hypoxemic resp failure; Bilateral pneumonia ? PJP; HIV/AIDS Objective - Constitutional Vitals: Vital Signs Temp Pulse Resp BP Pulse Ox 96.8 F L 119 H 22 104/68 96 07/19/18 11:27 07/19/18 11:00 07/19/18 11:00 07/19/18 11:00 07/19/18 11:00 Temperature -Last 24 Hours Temperature 96.8 F Temperature 97.7 F Temperature 98.7 F Temperature 97.4 F Temperature 98.9 F Temperature 98.8 F Temperature 102.9 F - Labs CBC & Chem 7: 07/19/18 08:10 07/19/18 08:10 Labs: Abnormal lab results 07/16/18 07/18/18 07/18/18 Range/Units 07:21 03:10 12:59 RBC (3.65-5.03) M/mm3 Hgb (11.8-15.2) gm/dl Hct (35.5-45.6) % RDW (13.2-15.2) % POC ABG pH (7.35-7.45) POC ABG pCO2 (35-45) POC ABG pO2 (80-105) Sodium (137-145) mmol/L Chloride (98-107) mmol/L Carbon Dioxide (22-30) mmol/L Creatinine (0.8-1.5) mg/dL Glucose (75-100) mg/dL POC Glucose 164 H (70-105) Calcium (8.4-10.2) mg/dL Miscellaneous Test Flexitest 1 H Crossmatch See Detail 07/18/18 07/18/18 07/19/18 Range/Units 18:25 20:39 03:53 RBC (3.65-5.03) M/mm3 Hgb (11.8-15.2) gm/dl Hct (35.5-45.6) % RDW (13.2-15.2) % POC ABG pH 7.339 L (7.35-7.45) POC ABG pCO2 59.9 H 65.0 H (35-45) POC ABG pO2 69 L (80-105) Sodium (137-145) mmol/L Chloride (98-107) mmol/L Carbon Dioxide (22-30) mmol/L Creatinine (0.8-1.5) mg/dL Glucose (75-100) mg/dL POC Glucose 155 H (70-105) Calcium (8.4-10.2) mg/dL Miscellaneous Test Crossmatch 07/19/18 07/19/18 07/19/18 Range/Units 08:10 08:10 10:52 RBC 2.51 L (3.65-5.03) M/mm3 Hgb 7.4 L (11.8-15.2) gm/dl Hct 22.0 L (35.5-45.6) % RDW 15.5 H (13.2-15.2) % POC ABG pH (7.35-7.45) POC ABG pCO2 (35-45) POC ABG pO2 (80-105) Sodium 130 L (137-145) mmol/L Chloride 89.0 L (98-107) mmol/L Carbon Dioxide 33 H (22-30) mmol/L Creatinine 0.4 L (0.8-1.5) mg/dL Glucose 150 H (75-100) mg/dL POC Glucose 173 H (70-105) Calcium 7.5 L (8.4-10.2) mg/dL Miscellaneous Test Crossmatch
[2018-07-19] MEDS: MIDAZOLAM 100 MG in NACL 0.9% 80 ML IV SCH (11:53)
[2018-07-19] MEDS: fentaNYL DRIP Premix 2,000 MCG/100 ML BAG IV SCH ×2 (11:53→18:55)
[2018-07-19] MEDS: DIPRIVAN 10 MG/ML 1,000 MG/100 ML BOTTLE IV SCH ×2 (11:54→17:15)
--- NOTE | 2018-07-19 15:25 | Progress Note ---
Assessment and Plan Assessment and plan: Patient is a 37 yo man with a history of HIV and tobacco dependency who presents from [facility] to [facility] ED with sob and cough. Pt admitted to [facility] and initiated on Pneumonia protocol. In the ED, temp 99.8, HR 104, R 29, O2 sat 77%, BP 94/50. WBC 6.1, Hg 9.6, Plat 398. Creat 0.6. Blood culture 07/11/2018 no growth today. Sputum culture 07/11/2018 no growth today. Chest CT showed bilateral patchy and somewhat confluent alveolar infiltrates and interstitial infiltrates. No effusions. Mild cardiomegaly. Patient required emergent intubation following admission to the [facility]. Patient unfortunately has remained on full ventilatory support and very resistant hypoxia currently on high level FIO2.Patient unfortunately has remained on full ventilatory support and very resistant hypoxia currently on high level FIO2. * CT head: No CT evidence of acute intracranial abnormality. Pansinus disease * CTA CHEST: IMPRESSION: No pulmonary embolus. Bilateral patchy and somewhat confluent alveolar infiltrates and interstitial infiltrates. Noeffusions. Mild cardiomegaly. Runnings likely reflect a viral pneumonia or inhalational process * CXR IMPRESSION: Heart size is normal.There are bilateral lower lobe infiltrates. These are slightly worse than the prior study.. There is no pleural effusion or pneumothorax. Endotracheal tube is in the mid trachea. NG tube is in the stomach. There is a right-sided PICC line. The tip is in the superior vena cava.. 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 Follow-up on current diagnosis of respiratory failure, still intubated and sedated. No overnight events reported to me. Imaging, nursing note, chart, labs and old chart reviewed. Discussed with nurse. Financial Aid Advisor at bedside. Hospitalist Physical - Physical exam Narrative exam: Gen: thin, critically ill, intubated and sedated HEENT: NCAT, EOMI, PERRL, OP ETT and NGT in place Neck: supple, no JVD CVS/Heart: Regular tachycardia, normal S1S2, pulses present bilaterally Chest/Lungs: diminished bs bilateral, Symmetrical chest expansion, good air entry bilaterally GI/Abdomen: soft, good bowel sounds, no guarding or rebound /Bladder: no suprapubic tenderness, Extermity/Skin: poor skin tone MSK: sedated Neuro: sedated Psych:sedated - Constitutional Vitals: Temp Pulse Resp BP Pulse Ox 97.1 F L 123 H 31 H 112/71 92 07/19/18 12:00 07/19/18 14:00 07/19/18 14:00 07/19/18 14:00 07/19/18 14:00 General appearance: Present: cachectic, disheveled. Absent: mild distress Results - Labs CBC & Chem 7: 07/19/18 08:10 07/19/18 08:10 Labs: Laboratory Last Values WBC 4.9 K/mm3 (4.5-11.0) 07/19/18 08:10 RBC 2.51 M/mm3 (3.65-5.03) L 07/19/18 08:10 Hgb 7.4 gm/dl (11.8-15.2) L 07/19/18 08:10 Hct 22.0 % (35.5-45.6) L 07/19/18 08:10 MCV 88 fl (84-94) 07/19/18 08:10 MCH 30 pg (28-32) 07/19/18 08:10 MCHC 34 % (32-34) 07/19/18 08:10 RDW 15.5 % (13.2-15.2) H 07/19/18 08:10 Plt Count 268 K/mm3 (140-440) 07/19/18 08:10 Lymph % (Auto) 7.2 % (13.4-35.0) L 07/18/18 01:10 [place] % (Auto) 2.8 % (0.0-7.3) 07/18/18 01:10 Eos % (Auto) 0.0 % (0.0-4.3) 07/18/18 01:10 Baso % (Auto) 0.1 % (0.0-1.8) 07/18/18 01:10 Lymph # 0.5 K/mm3 (1.2-5.4) L 07/18/18 01:10 [place] # 0.2 K/mm3 (0.0-0.8) 07/18/18 01:10 Eos # 0.0 K/mm3 (0.0-0.4) 07/18/18 01:10 Baso # 0.0 K/mm3 (0.0-0.1) 07/18/18 01:10 Seg Neutrophils % 89.9 % (40.0-70.0) H 07/18/18 01:10 Seg Neutrophils # 6.3 K/mm3 (1.8-7.7) 07/18/18 01:10 Abs Lymphs (Manual) 220 cells/uL (850-3900) L 07/12/18 19:29 1298.70 ng/mlDDU (0-234) H 07/11/18 15:04 POC ABG pH 7.339 (7.35-7.45) L 07/19/18 03:53 POC ABG pCO2 65.0 (35-45) H 07/19/18 03:53 POC ABG pO2 86 (80-105) 07/19/18 03:53 POC ABG HCO3 35.0 (22-26 mml/L) 07/19/18 03:53 POC ABG Total CO2 37 (23-27mmol/L) 07/19/18 03:53 POC ABG O2 Sat 95 07/19/18 03:53 POC ABG Base Excess 9 ((-2) - (+3)mmol/L) 07/19/18 03:53 60 % 07/19/18 03:53 Sodium 130 mmol/L (137-145) L 07/19/18 08:10 Potassium 4.7 mmol/L (3.6-5.0) 07/19/18 08:10 Chloride 89.0 mmol/L (98-107) L 07/19/18 08:10 Carbon Dioxide 33 mmol/L (22-30) H 07/19/18 08:10 13 mmol/L 07/19/18 08:10 BUN 17 mg/dL (9-20) 07/19/18 08:10 0.4 mg/dL (0.8-1.5) L 07/19/18 08:10 Estimated GFR > 60 ml/min 07/19/18 08:10 43 % 07/19/18 08:10 Glucose 150 mg/dL (75-100) H 07/19/18 08:10 POC Glucose 173 (70-105) H 07/19/18 10:52 Lactic Acid 1.80 mmol/L (0.7-2.0) 07/11/18 21:01 Calcium 7.5 mg/dL (8.4-10.2) L 07/19/18 08:10 0.20 mg/dL (0.1-1.2) 07/11/18 14:06 AST 30 units/L (5-40) 07/11/18 14:06 ALT 11 units/L (7-56) 07/11/18 14:06 50 units/L (35-129) 07/11/18 14:06 731 units/L (91-180) H 07/12/18 19:29 < 0.010 ng/mL (0.00-0.029) 07/11/18 15:04 2.70 mg/dL (0.00-1.30) H 07/15/18 14:09 NT-Pro-B Natriuret Pep 249.7 pg/mL (0-450) 07/11/18 15:04 6.3 g/dL (6.3-8.2) 07/11/18 14:06 2.1 g/dL (3.9-5) L 07/11/18 14:06 0.5 % 07/11/18 14:06 Triglycerides 148 mg/dL (2-149) 07/17/18 05:00 Yellow (Yellow) 07/15/18 14:14 Clear (Clear) 07/15/18 14:14 6.0 (5.0-7.0) 07/15/18 14:14 Ur Specific [place] 1.015 (1.003-1.030) 07/15/18 14:14 30 mg/dl mg/dL (Negative) 07/15/18 14:14 Neg mg/dL (Negative) 07/15/18 14:14 Neg mg/dL (Negative) 07/15/18 14:14 Neg (Negative) 07/15/18 14:14 Neg (Negative) 07/15/18 14:14 Neg (Negative) 07/15/18 14:14 < 2.0 mg/dL (<2.0) 07/15/18 14:14 Ur Leukocyte Esterase Neg (Negative) 07/15/18 14:14 2.0 /HPF (0.0-6.0) 07/15/18 14:14 6.0 /HPF (0.0-6.0) 07/15/18 14:14 21 mmol/L 07/19/18 14:27 Lymph Enumerat CD4/CD8 0.04 (0.86-5.00) L 07/12/18 19:29 % CD3 Cells 88 % (57-85) H 07/12/18 19:29 194 cells/uL (840-3060) L 07/12/18 19:29 % CD4 Cells 3 % (30-61) L 07/12/18 19:29 7 cells/uL (490-1740) L 07/12/18 19:29 % CD8 Cells 75 % (12-42) H 07/12/18 19:29 177 cells/uL (180-1170) L 07/12/18 19:29 % CD19 Cells 4 % (6-29) L 07/12/18 19:29 9 cells/uL (110-660) L 07/12/18 19:29 RPR Nonreactive (Nonreactive) 07/12/18 23:38 Hepatitis A IgM Ab Non-reactive (NonReactive) 07/12/18 23:38 Hep Bs Antigen Non-reactive (Negative) 07/12/18 23:38 Hep B Core IgM Ab Non-reactive (NonReactive) 07/12/18 23:38 Non-reactive (NonReactive) 07/12/18 23:38 HIV-1 RNA PCR copies/ml [id number] Copies/mL H 07/12/18 19:29 5.72 Log cps/mL H 07/12/18 19:29 Flexitest 1 H 07/16/18 07:21 Blood Type O POSITIVE 07/18/18 03:10 Antibody Screen Positive 07/18/18 03:10 Prewarmed Antibody Srcn Positive 07/18/18 03:10 Antibody Identification Anti-Adrianna 07/18/18 03:10 Direct Antiglob Test Negative 07/18/18 03:10 NIKUNJ, Poly Interpret Negative 07/18/18 03:10 Crossmatch See Detail 07/18/18 03:10 Active Medications - Current Medications Current Medications: Generic Name Dose Route Start Last Admin Trade Name Freq PRN Reason Stop Dose Admin Acetaminophen 650 mg 07/12/18 18:07 07/18/18 13:31 Tylenol FEEDTUBE 650 mg Q6H PRN Administration Non Cardiac Pain or Temp>100.5 Albuterol 2.5 mg 07/11/18 17:16 Proventil IH Q3HRT PRN Shortness Of Breath Lipase/Protease/Amylase 1 each 07/13/18 12:[address] 10,500 Unit FEEDTUBE PRN PRN For Clogged Feeding Tube Docusate Sodium 100 mg 07/15/18 12:00 07/19/18 09:54 Colace PO 100 mg BID HE Administration Doxazosin Mesylate 2 mg 07/18/18 12:00 07/19/18 09:56 Cardura PO 2 mg QDAY HE Administration Famotidine 20 mg 07/16/18 22:00 07/19/18 09:54 Pepcid PO 20 mg BID HE Administration Fentanyl 50 mcg 07/12/18 00:26 Sublimaze IV Q10MIN PRN ANALGESIA Hydrophilic Ointment 1 applic 07/12/18 13:30 Vaseline Lip Therapy TP Q2HR PRN Dry Lips Trimethoprim/Sulfamethoxazole 518.75 mls @ 350 mls/hr 07/11/18 18:00 07/19/18 11:17 300 mg/ Dextrose IV 350 mls/hr Q6HR HE Administration Protocol Fentanyl Citrate 2,000 mcg in 100 mls @ 3.065 mls/hr 07/12/18 01:00 07/19/18 11:53 Fentanyl Drip Premix IV 4 mcg/kg/hr TITR HE 12.26 mls/hr Administration Protocol 1 MCG/KG/HR Propofol 1,000 mg in 100 mls @ 1.839 mls/hr 07/12/18 01:00 07/19/18 12:25 Diprivan 10 Mg/Ml IV 50 mcg/kg/min TITR HE 18.39 mls/hr Titration Protocol 5 MCG/KG/MIN Dopamine HCl/Dextrose 800 mg in 250 mls @ 2.299 mls/hr 07/12/18 22:00 07/15/18 14:28 Intropin Drip 800 Mg/D5w 250 Ml IV 0 mcg/kg/min TITR HE 0 mls/hr Titration Protocol 2 MCG/KG/MIN Linezolid 600 mg in 300 mls @ 300 mls/hr 07/15/18 14:00 07/19/18 09:52 Zyvox 600mg/300ml IV 300 mls/hr Q12HR HE Administration Protocol Midazolam HCl 100 mg/ Sodium 100 mls @ 2 mls/hr 07/18/18 13:30 07/19/18 12:00 Chloride IV 4 mg/hr TITR HE 4 mls/hr Titration Protocol 2 MG/HR Methylprednisolone Sodium Succinate 40 mg 07/16/18 14:00 07/19/18 14:12 Solu-Medrol IV 40 mg Q8HR HE Administration Midazolam HCl 2 mg 07/16/18 13:06 07/18/18 13:32 Versed IV 2 mg Q2H PRN Administration AGITATION Midazolam HCl 2 mg 07/18/18 12:44 Versed IV Q10MIN PRN Sedation Multi-Ingred Cream/Lotion/Oil/Oint 1 applic 07/12/18 13:30 Artificial Tears Ophth Oint OU Q4HR PRN Dry Eye(s) Quetiapine Fumarate 200 mg 07/16/18 14:00 07/19/18 09:54 Seroquel PO 200 mg BID HE Administration Simple Syrup 15 ml 07/13/18 12:30 Simple Syrup FEEDTUBE PRN PRN Hypoglycemia Simple Syrup 30 ml 07/13/18 12:30 Simple Syrup FEEDTUBE PRN PRN Hypoglycemia Sodium Bicarbonate 325 mg 07/13/18 12:30 Sodium Bicarbonate FEEDTUBE PRN PRN For Clogged Feeding Tube Sodium Chloride 10 ml 07/11/18 22:00 07/19/18 11:08 Sodium Chloride Flush Syringe 10 Ml IV 10 ml BID HE Administration Sodium Chloride 10 ml 07/11/18 17:16 07/18/18 09:00 Sodium Chloride Flush Syringe 10 Ml IV 10 ml PRN PRN Administration LINE FLUSH Nutrition/Malnutrition Assess - Dietary Evaluation Nutrition/Malnutrition Findings: Nutrition Notes Start: 07/12/18 09:38 Freq: Status: Active Protocol: Document 07/16/18 15:54 RM (Rec: 07/16/18 16:00 RM [id number]) Nutrition Notes Initial or Follow up Reassessment Other Pertinent Diagnosis HIV/AIDS, SOB, weakness, nicotine dependence, PCP, hyponatremia syndrome Current Diet Vital 1.2 at 65 ml/hr Labs/Tests Reviewed Pertinent Medications Solu-medrol Diprivan Height 5 ft 11 in Weight 66.7 kg [place] Body Weight (kg) 78.18 BMI 20.5 Weight change and time frame Current wt obtained from scale Subjective/Other Information Observed Vital 1.2 infusing at 65 ml/hr. Per nurse pt is tolerating TF. Percent of energy/protein needs met: 96%/100% Burn Absent Trauma Absent #2 Nutrition Diagnosis Inadequate oral intake Diagnosis Progress(for reassessment Continues documentation) #1 Nutrition Diagnosis Malnutrition Diagnosis Progress(for reassessment Continues documentation) Is patient on ventilator? Yes Is Patient Ambulatory and/or Out of Bed No REE-([facility]-confined to bed) 9325.608 Calculation Used for Recommendations [facility] Additional Notes Protein: 74- 92 g (1.2-1.5 g/ kg) Fluid: 1 ml/kcal Nutrition Intervention Nutrition Support: Vital 1.2 at 65 mL/hr Flush 100 mL q 4 hr Kcal 1,872 Protein (gm) 117 Carbohydrates (gm) 173 Fat (gm) 84 Fluid (mL) 1,265 Fiber (gm) 8 Goal #1 TF tolerance Goal #2 TF to meet at least 80% of [place] and pro needs Anticipated Discharge Needs: Unable to determine at this time Follow-Up By: 07/23/18 Additional Comments Follow for TF tolerance
[2018-07-20] MEDS: DIPRIVAN 10 MG/ML 1,000 MG/100 ML BOTTLE IV SCH ×5 (00:02→21:35)
[2018-07-20] MEDS: BACTRIM 300 MG in D5W 500 ML IV SCH ×5 (00:04→23:57)
[2018-07-20] MEDS: TYLENOL FEEDTUBE PRN (03:13)
[2018-07-20] MEDS: fentaNYL DRIP Premix 2,000 MCG/100 ML BAG IV SCH ×4 (03:14→23:56)
[2018-07-20] MEDS: SOLU-Medrol IV SCH ×3 (06:25→21:10)
[2018-07-20 06:48] LABS: Hematocrit 23.6 % (35.5-45.6); Hemoglobin 7.8 gm/dl (11.8-15.2); Mean Corpuscular HGB Conc 33 % (32-34); Mean Corpuscular Volume 88 fl (84-94); Platelet Count 310 K/mm3 (140-440); Red Blood Count 2.69 M/mm3 (3.65-5.03); Red Cell Distribution Width 15.5 % (13.2-15.2)
[2018-07-20 07:13] LABS: BUN/Creatinine Ratio 26; Blood Urea Nitrogen 18 mg/dL (9-20); Calcium 7.6 mg/dL (8.4-10.2); Hemolysis Index 0
--- NOTE | 2018-07-20 07:26 | Progress Note ---
Assessment and Plan Assessment and plan: Patient is a 37 yo man with a history of HIV and tobacco dependency who presents from [facility] to [facility] ED with sob and cough. Pt admitted to [facility] and initiated on Pneumonia protocol. In the ED, temp 99.8, HR 104, R 29, O2 sat 77%, BP 94/50. WBC 6.1, Hg 9.6, Plat 398. Creat 0.6. Blood culture 07/11/2018 no growth today. Sputum culture 07/11/2018 no growth today. Chest CT showed bilateral patchy and somewhat confluent alveolar infiltrates and interstitial infiltrates. No effusions. Mild cardiomegaly. Patient required emergent intubation following admission to the [facility]. Patient unfortunately has remained on full ventilatory support and very resistant hypoxia currently on high level FIO2.Patient unfortunately has remained on full ventilatory support and very resistant hypoxia currently on high level FIO2. * CT head: No CT evidence of acute intracranial abnormality. Pansinus disease * CTA CHEST: IMPRESSION: No pulmonary embolus. Bilateral patchy and somewhat confluent alveolar infiltrates and interstitial infiltrates. Noeffusions. Mild cardiomegaly. Runnings likely reflect a viral pneumonia or inhalational process * CXR IMPRESSION: Heart size is normal.There are bilateral lower lobe infiltrates. These are slightly worse than the prior study.. There is no pleural effusion or pneumothorax. Endotracheal tube is in the mid trachea. NG tube is in the stomach. There is a right-sided PICC line. The tip is in the superior vena cava.. 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 Follow-up on current diagnosis of respiratory failure, still intubated and sedated. No overnight events reported to me. Imaging, nursing note, chart, labs and old chart reviewed. FEVER overnight Hospitalist Physical - Physical exam Narrative exam: Gen: thin, critically ill, intubated and sedated HEENT: NCAT, EOMI, PERRL, OP ETT and NGT in place Neck: supple, no JVD CVS/Heart: Regular tachycardia, normal S1S2, pulses present bilaterally Chest/Lungs: diminished bs bilateral, Symmetrical chest expansion, good air entry bilaterally GI/Abdomen: soft, good bowel sounds, no guarding or rebound /Bladder: no suprapubic tenderness, Extermity/Skin: poor skin tone MSK: sedated Neuro: sedated Psych:sedated - Constitutional Vitals: Temp Pulse Resp BP Pulse Ox 101.2 F H 135 H 32 H 123/74 92 07/20/18 03:05 07/20/18 04:30 07/20/18 04:30 07/20/18 04:30 07/20/18 04:30 General appearance: Present: cachectic, disheveled. Absent: mild distress Results - Labs CBC & Chem 7: 07/20/18 06:20 07/20/18 06:20 Labs: Laboratory Last Values WBC 5.6 K/mm3 (4.5-11.0) 07/20/18 06:20 RBC 2.69 M/mm3 (3.65-5.03) L 07/20/18 06:20 Hgb 7.8 gm/dl (11.8-15.2) L 07/20/18 06:20 Hct 23.6 % (35.5-45.6) L 07/20/18 06:20 MCV 88 fl (84-94) 07/20/18 06:20 MCH 29 pg (28-32) 07/20/18 06:20 MCHC 33 % (32-34) 07/20/18 06:20 RDW 15.5 % (13.2-15.2) H 07/20/18 06:20 Plt Count 310 K/mm3 (140-440) 07/20/18 06:20 Lymph % (Auto) 7.2 % (13.4-35.0) L 07/18/18 01:10 [place] % (Auto) 2.8 % (0.0-7.3) 07/18/18 01:10 Eos % (Auto) 0.0 % (0.0-4.3) 07/18/18 01:10 Baso % (Auto) 0.1 % (0.0-1.8) 07/18/18 01:10 Lymph # 0.5 K/mm3 (1.2-5.4) L 07/18/18 01:10 [place] # 0.2 K/mm3 (0.0-0.8) 07/18/18 01:10 Eos # 0.0 K/mm3 (0.0-0.4) 07/18/18 01:10 Baso # 0.0 K/mm3 (0.0-0.1) 07/18/18 01:10 Seg Neutrophils % 89.9 % (40.0-70.0) H 07/18/18 01:10 Seg Neutrophils # 6.3 K/mm3 (1.8-7.7) 07/18/18 01:10 Abs Lymphs (Manual) 220 cells/uL (850-3900) L 07/12/18 19:29 1298.70 ng/mlDDU (0-234) H 07/11/18 15:04 POC ABG pH 7.437 (7.35-7.45) 07/20/18 04:37 POC ABG pCO2 58.5 (35-45) H 07/20/18 04:37 POC ABG pO2 67 (80-105) L 07/20/18 04:37 POC ABG HCO3 39.5 (22-26 mml/L) 07/20/18 04:37 POC ABG Total CO2 41 (23-27mmol/L) 07/20/18 04:37 POC ABG O2 Sat 93 07/20/18 04:37 POC ABG Base Excess 15 ((-2) - (+3)mmol/L) 07/20/18 04:37 55 % 07/20/18 04:37 Sodium 134 mmol/L (137-145) L 07/20/18 06:20 Potassium 5.0 mmol/L (3.6-5.0) 07/20/18 06:20 Chloride 89.2 mmol/L (98-107) L 07/20/18 06:20 Carbon Dioxide 38 mmol/L (22-30) H 07/20/18 06:20 12 mmol/L 07/20/18 06:20 BUN 18 mg/dL (9-20) 07/20/18 06:20 0.7 mg/dL (0.8-1.5) L D 07/20/18 06:20 Estimated GFR > 60 ml/min 07/20/18 06:20 26 % 07/20/18 06:20 Glucose 120 mg/dL (75-100) H 07/20/18 06:20 POC Glucose 101 (70-105) 07/20/18 05:10 Lactic Acid 1.80 mmol/L (0.7-2.0) 07/11/18 21:01 Calcium 7.6 mg/dL (8.4-10.2) L 07/20/18 06:20 0.20 mg/dL (0.1-1.2) 07/11/18 14:06 AST 30 units/L (5-40) 07/11/18 14:06 ALT 11 units/L (7-56) 07/11/18 14:06 50 units/L (35-129) 07/11/18 14:06 731 units/L (91-180) H 07/12/18 19:29 < 0.010 ng/mL (0.00-0.029) 07/11/18 15:04 2.70 mg/dL (0.00-1.30) H 07/15/18 14:09 NT-Pro-B Natriuret Pep 249.7 pg/mL (0-450) 07/11/18 15:04 6.3 g/dL (6.3-8.2) 07/11/18 14:06 2.1 g/dL (3.9-5) L 07/11/18 14:06 0.5 % 07/11/18 14:06 Triglycerides 148 mg/dL (2-149) 07/17/18 05:00 Yellow (Yellow) 07/15/18 14:14 Clear (Clear) 07/15/18 14:14 6.0 (5.0-7.0) 07/15/18 14:14 Ur Specific [place] 1.015 (1.003-1.030) 07/15/18 14:14 30 mg/dl mg/dL (Negative) 07/15/18 14:14 Neg mg/dL (Negative) 07/15/18 14:14 Neg mg/dL (Negative) 07/15/18 14:14 Neg (Negative) 07/15/18 14:14 Neg (Negative) 07/15/18 14:14 Neg (Negative) 07/15/18 14:14 < 2.0 mg/dL (<2.0) 07/15/18 14:14 Ur Leukocyte Esterase Neg (Negative) 07/15/18 14:14 2.0 /HPF (0.0-6.0) 07/15/18 14:14 6.0 /HPF (0.0-6.0) 07/15/18 14:14 21 mmol/L 07/19/18 14:27 Lymph Enumerat CD4/CD8 0.04 (0.86-5.00) L 07/12/18 19:29 % CD3 Cells 88 % (57-85) H 07/12/18 19:29 194 cells/uL (840-3060) L 07/12/18 19:29 % CD4 Cells 3 % (30-61) L 07/12/18 19:29 7 cells/uL (490-1740) L 07/12/18 19:29 % CD8 Cells 75 % (12-42) H 07/12/18 19:29 177 cells/uL (180-1170) L 07/12/18 19:29 % CD19 Cells 4 % (6-29) L 07/12/18 19:29 9 cells/uL (110-660) L 07/12/18 19:29 RPR Nonreactive (Nonreactive) 07/12/18 23:38 Hepatitis A IgM Ab Non-reactive (NonReactive) 07/12/18 23:38 Hep Bs Antigen Non-reactive (Negative) 07/12/18 23:38 Hep B Core IgM Ab Non-reactive (NonReactive) 07/12/18 23:38 Non-reactive (NonReactive) 07/12/18 23:38 HIV-1 RNA PCR copies/ml [id number] Copies/mL H 07/12/18 19:29 5.72 Log cps/mL H 07/12/18 19:29 Flexitest 1 H 07/16/18 07:21 Blood Type O POSITIVE 07/18/18 03:10 Antibody Screen Positive 07/18/18 03:10 Prewarmed Antibody Srcn Positive 07/18/18 03:10 Antibody Identification Anti-Adrianna 07/18/18 03:10 Direct Antiglob Test Negative 07/18/18 03:10 NIKUNJ, Poly Interpret Negative 07/18/18 03:10 Crossmatch See Detail 07/18/18 03:10 Active Medications - Current Medications Current Medications: Generic Name Dose Route Start Last Admin Trade Name Freq PRN Reason Stop Dose Admin Acetaminophen 650 mg 07/12/18 18:07 07/20/18 03:13 Tylenol FEEDTUBE 650 mg Q6H PRN Administration Non Cardiac Pain or Temp>100.5 Albuterol 2.5 mg 07/11/18 17:16 Proventil IH Q3HRT PRN Shortness Of Breath Lipase/Protease/Amylase 1 each 07/13/18 12:[address] 10,500 Unit FEEDTUBE PRN PRN For Clogged Feeding Tube Docusate Sodium 100 mg 07/15/18 12:00 07/19/18 21:34 Colace PO 100 mg BID HE Administration Doxazosin Mesylate 2 mg 07/18/18 12:00 07/19/18 09:56 Cardura PO 2 mg QDAY HE Administration Famotidine 20 mg 07/16/18 22:00 07/19/18 21:40 Pepcid PO 20 mg BID HE Administration Fentanyl 50 mcg 07/12/18 00:26 Sublimaze IV Q10MIN PRN ANALGESIA Hydrophilic Ointment 1 applic 07/12/18 13:30 Vaseline Lip Therapy TP Q2HR PRN Dry Lips Trimethoprim/Sulfamethoxazole 518.75 mls @ 350 mls/hr 07/11/18 18:00 07/20/18 06:26 300 mg/ Dextrose IV 350 mls/hr Q6HR HE Administration Protocol Fentanyl Citrate 2,000 mcg in 100 mls @ 3.065 mls/hr 07/12/18 01:00 07/20/18 03:14 Fentanyl Drip Premix IV 5 mcg/kg/hr TITR HE 15.325 mls/hr Administration Protocol 1 MCG/KG/HR Propofol 1,000 mg in 100 mls @ 1.839 mls/hr 07/12/18 01:00 07/20/18 06:26 Diprivan 10 Mg/Ml IV 50 mcg/kg/min TITR HE 18.39 mls/hr Administration Protocol 5 MCG/KG/MIN Dopamine HCl/Dextrose 800 mg in 250 mls @ 2.299 mls/hr 07/12/18 22:00 07/15/18 14:28 Intropin Drip 800 Mg/D5w 250 Ml IV 0 mcg/kg/min TITR HE 0 mls/hr Titration Protocol 2 MCG/KG/MIN Linezolid 600 mg in 300 mls @ 300 mls/hr 07/15/18 14:00 07/19/18 21:34 Zyvox 600mg/300ml IV 300 mls/hr Q12HR HE Administration Protocol Midazolam HCl 100 mg/ Sodium 100 mls @ 2 mls/hr 07/18/18 13:30 07/19/18 12:00 Chloride IV 4 mg/hr TITR HE 4 mls/hr Titration Protocol 2 MG/HR Methylprednisolone Sodium Succinate 40 mg 07/16/18 14:00 07/20/18 06:25 Solu-Medrol IV 40 mg Q8HR HE Administration Midazolam HCl 2 mg 07/16/18 13:06 07/18/18 13:32 Versed IV 2 mg Q2H PRN Administration AGITATION Midazolam HCl 2 mg 07/18/18 12:44 Versed IV Q10MIN PRN Sedation Multi-Ingred Cream/Lotion/Oil/Oint 1 applic 07/12/18 13:30 Artificial Tears Ophth Oint OU Q4HR PRN Dry Eye(s) Quetiapine Fumarate 200 mg 07/16/18 14:00 07/19/18 21:34 Seroquel PO 200 mg BID HE Administration Simple Syrup 15 ml 07/13/18 12:30 Simple Syrup FEEDTUBE PRN PRN Hypoglycemia Simple Syrup 30 ml 07/13/18 12:30 Simple Syrup FEEDTUBE PRN PRN Hypoglycemia Sodium Bicarbonate 325 mg 07/13/18 12:30 Sodium Bicarbonate FEEDTUBE PRN PRN For Clogged Feeding Tube Sodium Chloride 10 ml 07/11/18 22:00 07/19/18 11:08 Sodium Chloride Flush Syringe 10 Ml IV 10 ml BID HE Administration Sodium Chloride 10 ml 07/11/18 17:16 07/18/18 09:00 Sodium Chloride Flush Syringe 10 Ml IV 10 ml PRN PRN Administration LINE FLUSH Nutrition/Malnutrition Assess - Dietary Evaluation Nutrition/Malnutrition Findings: Nutrition Notes Start: 07/12/18 09:38 Freq: Status: Active Protocol: Document 07/16/18 15:54 RM (Rec: 07/16/18 16:00 RM [id number]) Nutrition Notes Initial or Follow up Reassessment Other Pertinent Diagnosis HIV/AIDS, SOB, weakness, nicotine dependence, PCP, hyponatremia syndrome Current Diet Vital 1.2 at 65 ml/hr Labs/Tests Reviewed Pertinent Medications Solu-medrol Diprivan Height 5 ft 11 in Weight 66.7 kg [place] Body Weight (kg) 78.18 BMI 20.5 Weight change and time frame Current wt obtained from scale Subjective/Other Information Observed Vital 1.2 infusing at 65 ml/hr. Per nurse pt is tolerating TF. Percent of energy/protein needs met: 96%/100% Burn Absent Trauma Absent #2 Nutrition Diagnosis Inadequate oral intake Diagnosis Progress(for reassessment Continues documentation) #1 Nutrition Diagnosis Malnutrition Diagnosis Progress(for reassessment Continues documentation) Is patient on ventilator? Yes Is Patient Ambulatory and/or Out of Bed No REE-([place] [place]-confined to bed) [phone] Calculation Used for Recommendations [place] Additional Notes Protein: 74- 92 g (1.2-1.5 g/ kg) Fluid: 1 ml/kcal Nutrition Intervention Nutrition Support: Vital 1.2 at 65 mL/hr Flush 100 mL q 4 hr Kcal 1,872 Protein (gm) 117 Carbohydrates (gm) 173 Fat (gm) 84 Fluid (mL) 1,265 Fiber (gm) 8 Goal #1 TF tolerance Goal #2 TF to meet at least 80% of [place] needs Anticipated Discharge Needs: Unable to determine at this time Follow-Up By: 07/23/18 Additional Comments Follow for TF tolerance
[2018-07-20] MEDS: MIDAZOLAM 100 MG in NACL 0.9% 80 ML IV SCH (08:06)
--- NOTE | 2018-07-20 09:08 | Progress Note ---
Assessment and Plan Acute Hypoxic respiratory failure on mechanical ventilation Severe sepsis with septic shock Severe ARDS Sepsis present on admission with grater than 2 SOFA criteria PJP (pneumocystis jiroveci pneumonia) Diarrhea Hyponatermia Syndrome Moderate Protein Malnutrition AIDS ANEMIA Elevated d/DIMER- NO PE noted Nicotine dependance/Tobacco use disorder -Increase PEEP to 12, monitor airway presures closley -Titrate sedation to RASS of 0 to -1 -VAP bundle addressed - Continue lung protective strategies per ARDS net protocol -Permissive hypercapnia is acceptable - Antibiotics, anti-infectives per ID service. -ART per ID service, Antibiotic prophylaxis for OI per ID - Continue bronchodilators with pulmonary hygiene per RT - Continue full MVS -Daily CXR and ABG -Wean FIO2 for O2 sats>90% - Monitor renal indices closely - Avoid nephrotoxic agents - Strict intake and output monitoring - Tube feedings, on Vital AF at 65ml/hour - Aspiration precautions. HOB >40 -Stress ulcer prophylaxis -VTE prophylaxis - Accuchecks with glycemic control. Target glucose of 140-180 mg/dL -Can stop accuchecks if glucose levels have been within range for 48 hours -Supportive transfusions as indicated for HgB<7g/dL - Maintenance of sleep -wake cycle - Mobility as tolerated by hemodynamics - Influenza and pneumonia vaccination per protocol ..care plan discussed at length with RN/RT at the bedside -Discussed in ICU-IDT rounds The high probability of a clinically significant, sudden or life threatening deterioration of the [pulmonary, cardiovascular] system(s) required my full and direct attention, intervention and personal management. The aggregate critical care time was [35] minutes. This time is in addition to time spent performing reported procedures but includes the following: [x] Data Review and interpretation [x] Patient assessment and monitoring of vital signs [x] Documentation [x] Medication orders and management Subjective Date of service: 07/20/18 Principal diagnosis: Acute hypoxemic resp failure; Bilateral pneumonia ? PJP; HIV/AIDS Interval history: Patient is seen today for: Acute hypoxemic respiratory failure, on mechanical ventilatory support; Bilateral pneumonia, high suspicion for Pneumocystis jiroveci pneumonia; Human immunodeficiency virus/acquired immunodeficiency syndrome,noncompliant with therapy; Hyponatremia; Severe protein calorie malnutrition. Seen and examined at bedside; 24-hour events reviewed; nursing and respiratory care staff consulted; no adverse overnight events reported to me; remains critically ill with high ventilatory demands and on critical drips. Acute desaturations with minimal movement. No fevers, no vomiting. No bowel movement in the past 6 days per RN, just had one Objective Vital Signs - 12hr 07/19/18 07/19/18 07/19/18 21:15 21:30 21:45 Temperature Pulse Rate 126 H 115 H 133 H Pulse Rate [ From Monitor] Respiratory 30 H 24 31 H Rate Blood Pressure 107/66 105/63 107/66 O2 Sat by Pulse 91 97 93 Oximetry 07/19/18 07/19/18 07/19/18 22:00 22:15 22:30 Temperature Pulse Rate 137 H 138 H 132 H Pulse Rate [ From Monitor] Respiratory 30 H 30 H 30 H Rate Blood Pressure 107/63 105/63 114/66 O2 Sat by Pulse 92 92 92 Oximetry 07/19/18 07/19/18 07/19/18 22:45 23:00 23:01 Temperature Pulse Rate 130 H 137 H 137 H Pulse Rate [ From Monitor] Respiratory 31 H 30 H Rate Blood Pressure 107/63 116/70 116/70 O2 Sat by Pulse 91 90 91 Oximetry 07/19/18 07/19/18 07/19/18 23:04 23:15 23:30 Temperature 98.9 F Pulse Rate 135 H 131 H Pulse Rate [ From Monitor] Respiratory 30 H 28 H Rate Blood Pressure 116/70 119/71 O2 Sat by Pulse 91 90 Oximetry 07/19/18 07/19/18 07/20/18 23:38 23:45 00:00 Temperature Pulse Rate 132 H 133 H 130 H Pulse Rate [ 132 H From Monitor] Respiratory 31 H 30 H 30 H Rate Blood Pressure 116/70 116/70 117/70 O2 Sat by Pulse 90 89 91 Oximetry 07/20/18 07/20/18 07/20/18 00:07 00:15 00:30 Temperature Pulse Rate 131 H 130 H 131 H Pulse Rate [ From Monitor] Respiratory 30 H 30 H 30 H Rate Blood Pressure 117/70 119/71 122/75 O2 Sat by Pulse 91 92 93 Oximetry 07/20/18 07/20/18 07/20/18 00:45 01:00 01:15 Temperature Pulse Rate 131 H 133 H 135 H Pulse Rate [ From Monitor] Respiratory 30 H 29 H 30 H Rate Blood Pressure 117/70 124/76 124/76 O2 Sat by Pulse 94 93 95 Oximetry 07/20/18 07/20/18 07/20/18 01:30 01:45 02:00 Temperature Pulse Rate 135 H 137 H 138 H Pulse Rate [ From Monitor] Respiratory 29 H 28 H 30 H Rate Blood Pressure 122/76 122/76 124/72 O2 Sat by Pulse 95 95 92 Oximetry 07/20/18 07/20/18 07/20/18 02:15 02:30 02:45 Temperature Pulse Rate 135 H 137 H 137 H Pulse Rate [ From Monitor] Respiratory 31 H 30 H 30 H Rate Blood Pressure 124/72 121/74 121/74 O2 Sat by Pulse 93 91 93 Oximetry 07/20/18 07/20/18 07/20/18 03:00 03:05 03:15 Temperature 101.2 F H Pulse Rate 138 H 130 H Pulse Rate [ From Monitor] Respiratory 30 H 30 H Rate Blood Pressure 126/73 121/74 O2 Sat by Pulse 91 95 Oximetry 07/20/18 07/20/18 07/20/18 03:30 03:45 03:58 Temperature Pulse Rate 138 H 136 H 134 H Pulse Rate [ From Monitor] Respiratory 29 H 29 H Rate Blood Pressure 112/67 112/67 112/67 O2 Sat by Pulse 96 97 96 Oximetry 07/20/18 07/20/18 07/20/18 04:00 04:15 04:30 Temperature Pulse Rate 134 H 134 H 135 H Pulse Rate [ 136 H From Monitor] Respiratory 28 H 29 H 32 H Rate Blood Pressure 115/66 115/66 123/74 O2 Sat by Pulse 94 95 92 Oximetry 07/20/18 07/20/18 07/20/18 04:45 05:00 05:15 Temperature Pulse Rate 137 H 134 H 132 H Pulse Rate [ From Monitor] Respiratory 32 H 30 H 30 H Rate Blood Pressure 123/74 118/72 118/72 O2 Sat by Pulse 93 93 93 Oximetry 07/20/18 07/20/18 07/20/18 05:31 05:45 06:01 Temperature Pulse Rate 120 H 108 H Pulse Rate [ From Monitor] Respiratory 31 H Rate Blood Pressure 118/72 118/72 118/72 O2 Sat by Pulse 94 97 95 Oximetry 07/20/18 07/20/18 07/20/18 06:15 06:30 06:45 Temperature Pulse Rate 114 H 114 H 115 H Pulse Rate [ From Monitor] Respiratory 29 H 30 H 30 H Rate Blood Pressure 143/95 132/84 132/84 O2 Sat by Pulse 93 94 93 Oximetry 07/20/18 07/20/18 07/20/18 07:00 07:15 07:30 Temperature Pulse Rate 118 H 116 H 101 H Pulse Rate [ From Monitor] Respiratory 30 H 28 H 26 H Rate Blood Pressure 111/71 111/71 110/62 O2 Sat by Pulse 94 94 98 Oximetry 07/20/18 07/20/18 07/20/18 07:45 08:00 08:41 Temperature 97.4 F L Pulse Rate 114 H 112 H 114 H Pulse Rate [ 117 H From Monitor] Respiratory 30 H 26 H Rate Blood Pressure 110/62 115/74 121/76 O2 Sat by Pulse 90 87 95 Oximetry Constitutional: appears uncomfortable, other (young AAM; normocephalic and atraumatic) Eyes: non-icteric ENT: oropharynx moist, other (ETT 23 cm SHONA) Neck: supple, no lymphadenopathy, no JVD Effort: mildly labored Ascultation: Bilateral: diminished breath sounds, rales Percussion: Bilateral: not dull Cardiovascular: regular rate and rhythm Gastrointestinal: normoactive bowel sounds, soft, non-tender, non-distended Integumentary: normal Extremities: no cyanosis, no edema, pulses normal, no ischemia or petechiae Neurologic: normal mental status, non-focal exam, pupils equal and round, CN II- XII normal, motor strength normal and Psychiatric: anxious CBC and BMP: 07/22/18 04:16 07/22/18 04:16 ABG, PT/INR, D-dimer: ABG POC ABG pH 7.437 (7.35-7.45) 07/20/18 04:37 POC ABG pCO2 58.5 (35-45) H 07/20/18 04:37 POC ABG pO2 67 (80-105) L 07/20/18 04:37 POC ABG HCO3 39.5 (22-26 mml/L) 07/20/18 04:37 POC ABG Total CO2 41 (23-27mmol/L) 07/20/18 04:37 POC ABG O2 Sat 93 07/20/18 04:37 PT/INR, D-dimer 1298.70 ng/mlDDU (0-234) H 07/11/18 15:04 Abnormal lab findings: Abnormal Labs 07/11/18 07/11/18 07/11/18 14:06 14:06 15:04 RBC 3.30 L Hgb 9.6 L Hct 28.7 L RDW Lymph % (Auto) Lymph # Seg Neutrophils % Abs Lymphs (Manual) D-Dimer 1298.70 H POC ABG pH POC ABG pCO2 POC ABG pO2 Sodium 132 L Chloride Carbon Dioxide Creatinine 0.6 L Glucose 103 H POC Glucose Calcium 7.3 L Lactate Dehydrogenase C-Reactive Protein Albumin 2.1 L Lymph Enumerat CD4/CD8 % CD3 Cells Absolute CD3 Count % CD4 Cells Absolute CD4 Count % CD8 Cells Absolute CD8 Count % CD19 Cells Absolute CD19 Count HIV-1 RNA PCR copies/ml HIV-1 RNA (PCR) log Miscellaneous Test Crossmatch 07/11/18 07/11/18 07/12/18 17:36 22:15 00:25 RBC Hgb Hct RDW Lymph % (Auto) Lymph # Seg Neutrophils % Abs Lymphs (Manual) D-Dimer POC ABG pH 7.289 L POC ABG pCO2 POC ABG pO2 66 L Sodium Chloride Carbon Dioxide Creatinine Glucose POC Glucose Calcium Lactate Dehydrogenase 591 H C-Reactive Protein Albumin Lymph Enumerat CD4/CD8 % CD3 Cells Absolute CD3 Count % CD4 Cells Absolute CD4 Count % CD8 Cells Absolute CD8 Count % CD19 Cells Absolute CD19 Count HIV-1 RNA PCR copies/ml HIV-1 RNA (PCR) log Miscellaneous Test see below H Crossmatch 07/12/18 07/12/18 07/12/18 00:41 05:37 19:29 RBC Hgb Hct RDW Lymph % (Auto) Lymph # Seg Neutrophils % Abs Lymphs (Manual) D-Dimer POC ABG pH 7.302 L 7.275 L POC ABG pCO2 47.1 H POC ABG pO2 Sodium Chloride Carbon Dioxide Creatinine Glucose POC Glucose Calcium Lactate Dehydrogenase 731 H C-Reactive Protein Albumin Lymph Enumerat CD4/CD8 % CD3 Cells Absolute CD3 Count % CD4 Cells Absolute CD4 Count % CD8 Cells Absolute CD8 Count % CD19 Cells Absolute CD19 Count HIV-1 RNA PCR copies/ml HIV-1 RNA (PCR) log Miscellaneous Test Crossmatch 07/12/18 07/12/18 07/13/18 19:29 19:29 04:03 RBC Hgb Hct RDW Lymph % (Auto) Lymph # Seg Neutrophils % Abs Lymphs (Manual) 220 L D-Dimer POC ABG pH 7.254 L POC ABG pCO2 49.2 H POC ABG pO2 Sodium Chloride Carbon Dioxide Creatinine Glucose POC Glucose Calcium Lactate Dehydrogenase C-Reactive Protein Albumin Lymph Enumerat CD4/CD8 0.04 L % CD3 Cells 88 H Absolute CD3 Count 194 L % CD4 Cells 3 L Absolute CD4 Count 7 L % CD8 Cells 75 H Absolute CD8 Count 177 L % CD19 Cells 4 L Absolute CD19 Count 9 L HIV-1 RNA PCR copies/ml 110512 H HIV-1 RNA (PCR) log 5.72 H Miscellaneous Test Crossmatch 07/13/18 07/13/18 07/13/18 05:46 12:23 18:31 RBC Hgb Hct RDW Lymph % (Auto) Lymph # Seg Neutrophils % Abs Lymphs (Manual) D-Dimer POC ABG pH POC ABG pCO2 POC ABG pO2 Sodium Chloride Carbon Dioxide Creatinine Glucose POC Glucose 68 L 106 H 112 H Calcium Lactate Dehydrogenase C-Reactive Protein Albumin Lymph Enumerat CD4/CD8 % CD3 Cells Absolute CD3 Count % CD4 Cells Absolute CD4 Count % CD8 Cells Absolute CD8 Count % CD19 Cells Absolute CD19 Count HIV-1 RNA PCR copies/ml HIV-1 RNA (PCR) log Miscellaneous Test Crossmatch 07/14/18 07/14/18 07/14/18 04:19 05:36 05:36 RBC 2.99 L Hgb 8.8 L Hct 25.7 L RDW 15.5 H Lymph % (Auto) Lymph # Seg Neutrophils % Abs Lymphs (Manual) D-Dimer POC ABG pH 7.337 L POC ABG pCO2 POC ABG pO2 Sodium 135 L Chloride Carbon Dioxide 21 L Creatinine 0.7 L Glucose 123 H POC Glucose Calcium 8.2 L Lactate Dehydrogenase C-Reactive Protein Albumin Lymph Enumerat CD4/CD8 % CD3 Cells Absolute CD3 Count % CD4 Cells Absolute CD4 Count % CD8 Cells Absolute CD8 Count % CD19 Cells Absolute CD19 Count HIV-1 RNA PCR copies/ml HIV-1 RNA (PCR) log Miscellaneous Test Crossmatch 07/14/18 07/14/18 07/14/18 12:14 14:33 17:18 RBC Hgb Hct RDW Lymph % (Auto) Lymph # Seg Neutrophils % Abs Lymphs (Manual) D-Dimer POC ABG pH 7.325 L POC ABG pCO2 POC ABG pO2 75 L Sodium Chloride Carbon Dioxide Creatinine Glucose POC Glucose 174 H 114 H Calcium Lactate Dehydrogenase C-Reactive Protein Albumin Lymph Enumerat CD4/CD8 % CD3 Cells Absolute CD3 Count % CD4 Cells Absolute CD4 Count % CD8 Cells Absolute CD8 Count % CD19 Cells Absolute CD19 Count HIV-1 RNA PCR copies/ml HIV-1 RNA (PCR) log Miscellaneous Test Crossmatch 07/15/18 07/15/18 07/15/18 00:17 12:29 12:29 RBC 2.64 L Hgb 7.5 L Hct 22.9 L RDW 15.4 H Lymph % (Auto) 7.0 L Lymph # 0.4 L Seg Neutrophils % 89.6 H Abs Lymphs (Manual) D-Dimer POC ABG pH POC ABG pCO2 POC ABG pO2 Sodium Chloride Carbon Dioxide Creatinine 0.6 L Glucose 124 H POC Glucose 113 H Calcium 7.3 L Lactate Dehydrogenase C-Reactive Protein Albumin Lymph Enumerat CD4/CD8 % CD3 Cells Absolute CD3 Count % CD4 Cells Absolute CD4 Count % CD8 Cells Absolute CD8 Count % CD19 Cells Absolute CD19 Count HIV-1 RNA PCR copies/ml HIV-1 RNA (PCR) log Miscellaneous Test Crossmatch 07/15/18 07/16/18 07/16/18 14:09 04:46 07:21 RBC Hgb Hct RDW Lymph % (Auto) Lymph # Seg Neutrophils % Abs Lymphs (Manual) D-Dimer POC ABG pH 7.282 L POC ABG pCO2 52.6 H POC ABG pO2 63 L Sodium Chloride Carbon Dioxide Creatinine Glucose POC Glucose Calcium Lactate Dehydrogenase C-Reactive Protein 2.70 H Albumin Lymph Enumerat CD4/CD8 % CD3 Cells Absolute CD3 Count % CD4 Cells Absolute CD4 Count % CD8 Cells Absolute CD8 Count % CD19 Cells Absolute CD19 Count HIV-1 RNA PCR copies/ml HIV-1 RNA (PCR) log Miscellaneous Test Flexitest 1 H Crossmatch 07/16/18 07/16/18 07/16/18 07:21 07:21 16:16 RBC 2.48 L Hgb 7.2 L Hct 21.5 L RDW 15.7 H Lymph % (Auto) Lymph # Seg Neutrophils % Abs Lymphs (Manual) D-Dimer POC ABG pH 7.251 L POC ABG pCO2 62.2 H POC ABG pO2 Sodium 136 L Chloride Carbon Dioxide Creatinine 0.6 L Glucose 118 H POC Glucose Calcium 7.5 L Lactate Dehydrogenase C-Reactive Protein Albumin Lymph Enumerat CD4/CD8 % CD3 Cells Absolute CD3 Count % CD4 Cells Absolute CD4 Count % CD8 Cells Absolute CD8 Count % CD19 Cells Absolute CD19 Count HIV-1 RNA PCR copies/ml HIV-1 RNA (PCR) log Miscellaneous Test Crossmatch 07/17/18 07/18/18 07/18/18 04:01 01:10 03:10 RBC 2.20 L Hgb 6.5 L Hct 19.2 L* RDW 16.0 H Lymph % (Auto) 7.2 L Lymph # 0.5 L Seg Neutrophils % 89.9 H Abs Lymphs (Manual) D-Dimer POC ABG pH 7.245 L POC ABG pCO2 63.8 H POC ABG pO2 75 L Sodium Chloride Carbon Dioxide Creatinine Glucose POC Glucose Calcium Lactate Dehydrogenase C-Reactive Protein Albumin Lymph Enumerat CD4/CD8 % CD3 Cells Absolute CD3 Count % CD4 Cells Absolute CD4 Count % CD8 Cells Absolute CD8 Count % CD19 Cells Absolute CD19 Count HIV-1 RNA PCR copies/ml HIV-1 RNA (PCR) log Miscellaneous Test Crossmatch See Detail 07/18/18 07/18/18 07/18/18 04:54 05:02 12:59 RBC Hgb Hct RDW Lymph % (Auto) Lymph # Seg Neutrophils % Abs Lymphs (Manual) D-Dimer POC ABG pH 7.615 H POC ABG pCO2 32.6 L 48.8 H POC ABG pO2 79 L 118 H Sodium Chloride Carbon Dioxide Creatinine Glucose POC Glucose 164 H Calcium Lactate Dehydrogenase C-Reactive Protein Albumin Lymph Enumerat CD4/CD8 % CD3 Cells Absolute CD3 Count % CD4 Cells Absolute CD4 Count % CD8 Cells Absolute CD8 Count % CD19 Cells Absolute CD19 Count HIV-1 RNA PCR copies/ml HIV-1 RNA (PCR) log Miscellaneous Test Crossmatch 07/18/18 07/18/18 07/19/18 18:25 20:39 03:53 RBC Hgb Hct RDW Lymph % (Auto) Lymph # Seg Neutrophils % Abs Lymphs (Manual) D-Dimer POC ABG pH 7.339 L POC ABG pCO2 59.9 H 65.0 H POC ABG pO2 69 L Sodium Chloride Carbon Dioxide Creatinine Glucose POC Glucose 155 H Calcium Lactate Dehydrogenase C-Reactive Protein Albumin Lymph Enumerat CD4/CD8 % CD3 Cells Absolute CD3 Count % CD4 Cells Absolute CD4 Count % CD8 Cells Absolute CD8 Count % CD19 Cells Absolute CD19 Count HIV-1 RNA PCR copies/ml HIV-1 RNA (PCR) log Miscellaneous Test Crossmatch 07/19/18 07/19/18 07/19/18 08:10 08:10 10:52 RBC 2.51 L Hgb 7.4 L Hct 22.0 L RDW 15.5 H Lymph % (Auto) Lymph # Seg Neutrophils % Abs Lymphs (Manual) D-Dimer POC ABG pH POC ABG pCO2 POC ABG pO2 Sodium 130 L Chloride 89.0 L Carbon Dioxide 33 H Creatinine 0.4 L Glucose 150 H POC Glucose 173 H Calcium 7.5 L Lactate Dehydrogenase C-Reactive Protein Albumin Lymph Enumerat CD4/CD8 % CD3 Cells Absolute CD3 Count % CD4 Cells Absolute CD4 Count % CD8 Cells Absolute CD8 Count % CD19 Cells Absolute CD19 Count HIV-1 RNA PCR copies/ml HIV-1 RNA (PCR) log Miscellaneous Test Crossmatch 07/19/18 07/19/18 07/20/18 17:06 23:47 04:37 RBC Hgb Hct RDW Lymph % (Auto) Lymph # Seg Neutrophils % Abs Lymphs (Manual) D-Dimer POC ABG pH POC ABG pCO2 58.5 H POC ABG pO2 67 L Sodium Chloride Carbon Dioxide Creatinine Glucose POC Glucose 117 H 114 H Calcium Lactate Dehydrogenase C-Reactive Protein Albumin Lymph Enumerat CD4/CD8 % CD3 Cells Absolute CD3 Count % CD4 Cells Absolute CD4 Count % CD8 Cells Absolute CD8 Count % CD19 Cells Absolute CD19 Count HIV-1 RNA PCR copies/ml HIV-1 RNA (PCR) log Miscellaneous Test Crossmatch 07/20/18 07/20/18 06:20 06:20 RBC 2.69 L Hgb 7.8 L Hct 23.6 L RDW 15.5 H Lymph % (Auto) Lymph # Seg Neutrophils % Abs Lymphs (Manual) D-Dimer POC ABG pH POC ABG pCO2 POC ABG pO2 Sodium 134 L Chloride 89.2 L Carbon Dioxide 38 H Creatinine 0.7 L D Glucose 120 H POC Glucose Calcium 7.6 L Lactate Dehydrogenase C-Reactive Protein Albumin Lymph Enumerat CD4/CD8 % CD3 Cells Absolute CD3 Count % CD4 Cells Absolute CD4 Count % CD8 Cells Absolute CD8 Count % CD19 Cells Absolute CD19 Count HIV-1 RNA PCR copies/ml HIV-1 RNA (PCR) log Miscellaneous Test Crossmatch Chest x-ray: image reviewed (Persitent bilateral alveolar infiltrates) Allied health notes reviewed: nursing
[2018-07-20] MEDS: ZYVOX 600MG/300ML 600 MG/300 ML BAG IV SCH (09:33)
[2018-07-20] MEDS: CARDURA PO SCH (09:33)
[2018-07-20] MEDS: SODIUM CHLORIDE FLUSH SYRINGE 10 ML IV SCH ×3 (09:33→21:15)
[2018-07-20] MEDS: COLACE PO SCH ×2 (09:34→21:10)
[2018-07-20] MEDS: PEPCID PO SCH ×2 (09:34→21:10)
--- NOTE | 2018-07-20 09:48 | Progress Note ---
Assessment and Plan Cultures: Blood culture 07/11/2018 no growth today. Cryptococcal antigen : negative MRSA PCR: positive Blood culture 07/15/2018: in progress Urine culture 07/15/2018: no growth in 24 hours Sputum culture 07/15/18: MRSA, Jannette Assessment: 37 y/o male currently in alf with history of HIV infection of unknown duration, noncompliant with antiretroviral medication, severe malnutrition; admitted on 07/11/2018, brought by law enforcement, due to 2-week history of shortness of breath, generalized weakness and productive cough: 1) Sepsis with new septic shock, off pressors. noted fever spike of 101.2 Etiology most likely pneumonia. Hepatitis panel negative. RPR nonreactive. CRP 2.7. Procalcitonin 3.09. Continue Cefepime and Linezolid. 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 Sputum culture 07/11/[address] no growth today. Chest CT showed bilateral patchy and somewhat confl uent alveolar infiltrates and interstitial infiltrates. No effusions. Mild cardiomegaly. Sputum culture grew MRSA and Jannette 3) HIV, presumed AIDS: Patient has not taken his HIV medication for at least 6 months prior due to his incarceration. On admission he reported 40lbs unintentional weight loss for 2 months and intermittent loose stools over the past 2 weeks. VL 523,000/ CD4=7. Pneumocytosis Jirovecii positive. 4) Diarrhea: ? possible opportunistic infection. 5) Acute respiratory failure: not better, from pneumonia. worsening 6) Anemia Recommendations: -Continue Linezolid 600mg every 12 hours, D6 - continue bactrim IV and solumedrol IV D9 - for severe PJP pneumonia with hypoxemia -follow-up CMV DNA PCR -follow-up G6PD level stat -contact isolation for MRSA prognosis poor, 60% mortality Monitor fevers, if fevers continue will order menendez culture Dr. Bernal will be pre certification specialist this weekend [phone], please call for questions. [facility] M: [phone] O:[phone] Subjective Date of service: 07/20/18 Principal diagnosis: Acute hypoxemic resp failure; Bilateral pneumonia ? PJP; HIV/AIDS Interval history: Patient seen and examined. Asleep, mostly unresponsive. mild distress observed. Objective - Exam Narrative Exam: General appearance: Asleep. Not easily arousable. mild distress observed. Eyes: anicteric sclerae, moist conjunctivae; no lid-lag; PERRLA HENT: Atraumatic; oropharynx +ETT +NGT Neck: Trachea midline; supple, no thyromegaly or lymphadenopathy Lungs: ryland crackles CV: tachycardic Abdomen: Soft, non-tender; no masses or hepatosplenomegaly Extremities: No peripheral edema or extremity lymphadenopathy Skin: Normal temperature, turgor and texture; no rash, ulcers or subcutaneous nodules Psych: calm Neuro: asleep, not easily arousable. - Constitutional Vitals: Vital Signs Temp Pulse Resp BP Pulse Ox 97.4 F L 114 H 30 H 121/76 95 07/20/18 08:00 07/20/18 08:41 07/20/18 08:00 07/20/18 08:41 07/20/18 08:41 Temperature -Last 24 Hours Temperature 97.4 F Temperature 101.2 F Temperature 98.9 F Temperature 98.7 F Temperature 98.4 F Temperature 97.1 F Temperature 96.8 F - Labs CBC & Chem 7: 07/20/18 06:20 07/20/18 06:20 Labs: Abnormal lab results 07/19/18 07/19/18 07/19/18 Range/Units 10:52 17:06 23:47 RBC (3.65-5.03) M/mm3 Hgb (11.8-15.2) gm/dl Hct (35.5-45.6) % RDW (13.2-15.2) % POC ABG pCO2 (35-45) POC ABG pO2 (80-105) Sodium (137-145) mmol/L Chloride (98-107) mmol/L Carbon Dioxide (22-30) mmol/L Creatinine (0.8-1.5) mg/dL Glucose (75-100) mg/dL POC Glucose 173 H 117 H 114 H (70-105) Calcium (8.4-10.2) mg/dL 07/20/18 07/20/18 07/20/18 Range/Units 04:37 06:20 06:20 RBC 2.69 L (3.65-5.03) M/mm3 Hgb 7.8 L (11.8-15.2) gm/dl Hct 23.6 L (35.5-45.6) % RDW 15.5 H (13.2-15.2) % POC ABG pCO2 58.5 H (35-45) POC ABG pO2 67 L (80-105) Sodium 134 L (137-145) mmol/L Chloride 89.2 L (98-107) mmol/L Carbon Dioxide 38 H (22-30) mmol/L Creatinine 0.7 L D (0.8-1.5) mg/dL Glucose 120 H (75-100) mg/dL POC Glucose (70-105) Calcium 7.6 L (8.4-10.2) mg/dL
[2018-07-20] MEDS: HEPARIN SUB-Q SCH ×2 (10:59→21:10)
[2018-07-21] MEDS: DIPRIVAN 10 MG/ML 1,000 MG/100 ML BOTTLE IV SCH ×4 (03:06→19:46)
[2018-07-21 05:09] LABS: Hematocrit 23.1 % (35.5-45.6); Hemoglobin 7.7 gm/dl (11.8-15.2); Mean Corpuscular HGB Conc 33 % (32-34); Mean Corpuscular Volume 88 fl (84-94); Platelet Count 328 K/mm3 (140-440); Red Blood Count 2.62 M/mm3 (3.65-5.03); Red Cell Distribution Width 15.4 % (13.2-15.2)
[2018-07-21] MEDS: BACTRIM 300 MG in D5W 500 ML IV SCH ×4 (05:24→23:38)
[2018-07-21 05:31] LABS: BUN/Creatinine Ratio 43; Blood Urea Nitrogen 17 mg/dL (9-20); Hemolysis Index 2
[2018-07-21] MEDS: fentaNYL DRIP Premix 2,000 MCG/100 ML BAG IV SCH ×3 (06:34→19:58)
[2018-07-21] MEDS: ZYVOX 600MG/300ML 600 MG/300 ML BAG IV SCH ×3 (08:16→21:42)
[2018-07-21] MEDS: TYLENOL FEEDTUBE PRN ×3 (08:59→19:30)
[2018-07-21] MEDS: SODIUM CHLORIDE FLUSH SYRINGE 10 ML IV SCH ×4 (10:13→22:03)
[2018-07-21] MEDS: CARDURA PO SCH (10:17)
[2018-07-21] MEDS: PEPCID PO SCH ×2 (10:18→21:42)
[2018-07-21] MEDS: COLACE PO SCH ×2 (10:19→21:42)
--- NOTE | 2018-07-21 10:19 | Progress Note ---
Assessment and Plan Acute hypoxemic respiratory failure, on mechanical ventilatory support. Bilateral pneumonia, high suspicion for Pneumocystis jiroveci pneumonia. Human immunodeficiency virus/acquired immunodeficiency syndrome,noncompliant wit h therapy. Hyponatremia. Severe protein calorie malnutrition. Elevated D-dimer. Tobacco use disorder. - resume versed drip and target RASS -1 to -2 acutely - continue to wean supplemental oxygen to keep O2 sats 88-90% acutely - keep Peep at 12 cm H2O - continue Seroquel bid dosing to spare IV sedatives (dose increased to 200mg bid) - PJP stain positive - continue current set rate at 30/min on MVS and TV 350 mls (LTVV /4-6mls/kg IBW) - ARDS ventilatory strategies with low TV - daily SAT's & SBT assessment as tolerated - continue bronchodilators with pulmonary hygiene per RT - continue GI & VTE prophylaxis - Lung protective strategies - prn CXR's at this point - VAP bundle addressed - Tracheal aspirate growing MRSA - continue Anti-infectives and ART per ID rec's - Chambers catheter placed for acute urinary retention. - Continue full MVS - Monitor renal indices closely - Avoid nephrotoxic agents, adjust all medications for CrCL - Strict intake and output monitoring - Tube feedings as tolerated - Accuchecks with glycemic control. Target glucose of 140-180 mg/dL - Maintenance of sleep -wake cycle - Mobility as tolerated by hemodynamics - Influenza and pneumonia vaccination per protocol ..care plan discussed at length with RN/RT at the bedside ..discussed in ICU-IDT rounds PROGNOSIS: GUARDED CONDITION: CRITICAL CODE STATUS: FULL CODE The high probability of a clinically significant, sudden or life-threatening deterioration of the [respiratory, neurology, renal] system(s) required my full and direct attention, intervention and personal management. The aggregate critical care time was [35] minutes without overlap. Time includes spent on; [x] Data Review and interpretation [x] Patient assessment and monitoring of vital signs [x] Documentation [x] Medication orders and management Subjective Date of service: 07/21/18 Principal diagnosis: Acute hypoxemic resp failure; Bilateral pneumonia (PJP); HIV/AIDS Interval history: Patient is seen today for: Acute hypoxemic respiratory failure, on mechanical v entilatory support; Bilateral pneumonia, high suspicion for Pneumocystis jiroveci pneumonia; Human immunodeficiency virus/acquired immunodeficiency syndrome,noncompliant with therapy; Hyponatremia; Severe protein calorie malnutrition. Seen and examined at bedside; 24-hour events reviewed; nursing and respiratory care staff consulted; no adverse overnight events reported to me; remains on MVS; still with intermittent patient-vent dyssynchrony; appropriate during sedation vacations; FiO2 down to 55% but peep still at 12 cm H2O; no N/V/F/C Objective Vital Signs - 12hr 07/20/18 07/20/18 07/20/18 22:30 22:46 22:48 Temperature Pulse Rate 131 H 130 H 129 H Pulse Rate [ From Monitor] Respiratory 24 26 H 27 H Rate Blood Pressure 104/58 110/60 110/60 O2 Sat by Pulse 95 96 95 Oximetry 07/20/18 07/20/18 07/20/18 23:00 23:16 23:30 Temperature Pulse Rate 130 H 125 H 126 H Pulse Rate [ From Monitor] Respiratory 30 H 30 H 30 H Rate Blood Pressure 107/64 104/58 112/71 O2 Sat by Pulse 91 96 96 Oximetry 07/20/18 07/21/18 07/21/18 23:46 00:00 00:16 Temperature 97.7 F Pulse Rate 128 H 135 H 132 H Pulse Rate [ From Monitor] Respiratory 28 H 40 H 25 H Rate Blood Pressure 107/64 128/81 128/81 O2 Sat by Pulse 96 97 96 Oximetry 07/21/18 07/21/18 07/21/18 00:24 00:30 00:45 Temperature Pulse Rate 128 H 129 H 137 H Pulse Rate [ From Monitor] Respiratory 33 H 37 H Rate Blood Pressure 112/71 126/81 126/81 O2 Sat by Pulse 93 98 96 Oximetry 07/21/18 07/21/18 07/21/18 01:00 01:16 01:30 Temperature Pulse Rate 131 H 131 H 132 H Pulse Rate [ From Monitor] Respiratory 30 H 27 H 32 H Rate Blood Pressure 128/81 126/81 131/80 O2 Sat by Pulse 97 99 100 Oximetry 07/21/18 07/21/18 07/21/18 01:46 02:00 02:16 Temperature Pulse Rate 135 H 132 H 135 H Pulse Rate [ From Monitor] Respiratory 37 H 31 H 30 H Rate Blood Pressure 131/80 129/78 131/80 O2 Sat by Pulse 98 98 98 Oximetry 07/21/18 07/21/18 07/21/18 02:30 02:46 03:00 Temperature Pulse Rate 140 H 140 H 138 H Pulse Rate [ From Monitor] Respiratory 39 H 39 H 40 H Rate Blood Pressure 144/88 129/78 125/78 O2 Sat by Pulse 94 96 98 Oximetry 07/21/18 07/21/18 07/21/18 03:16 03:30 03:46 Temperature Pulse Rate 138 H 137 H 136 H Pulse Rate [ From Monitor] Respiratory 29 H 39 H 30 H Rate Blood Pressure 144/88 136/84 136/84 O2 Sat by Pulse 95 95 99 Oximetry 07/21/18 07/21/18 07/21/18 04:00 04:16 04:30 Temperature 100.1 F H Pulse Rate 136 H 135 H 137 H Pulse Rate [ 136 H From Monitor] Respiratory 30 H 30 H 31 H Rate Blood Pressure 127/78 127/78 131/77 O2 Sat by Pulse 99 99 99 Oximetry 07/21/18 07/21/18 07/21/18 04:35 04:46 05:00 Temperature Pulse Rate 136 H 139 H 142 H Pulse Rate [ From Monitor] Respiratory 42 H 36 H Rate Blood Pressure 127/78 131/77 129/77 O2 Sat by Pulse 97 93 72 L Oximetry 07/21/18 07/21/18 07/21/18 05:16 05:30 05:46 Temperature Pulse Rate 141 H 138 H 136 H Pulse Rate [ From Monitor] Respiratory 32 H 30 H 31 H Rate Blood Pressure 129/77 126/76 129/77 O2 Sat by Pulse 100 84 100 Oximetry 07/21/18 06:00 Temperature Pulse Rate 137 H Pulse Rate [ From Monitor] Respiratory 34 H Rate Blood Pressure 124/74 O2 Sat by Pulse 97 Oximetry Constitutional: appears uncomfortable, other (young AAM; normocephalic and atraumatic) Eyes: non-icteric ENT: oropharynx moist, other (ETT 23 cm SHONA) Neck: supple, no lymphadenopathy, no JVD Effort: mildly labored Ascultation: Bilateral: diminished breath sounds, rales Percussion: Bilateral: not dull Cardiovascular: regular rate and rhythm Gastrointestinal: normoactive bowel sounds, soft, non-tender, non-distended Integumentary: normal Extremities: no cyanosis, no edema, pulses normal, no ischemia or petechiae Neurologic: normal mental status, non-focal exam, pupils equal and round, CN II- XII normal, motor strength normal and Psychiatric: other (sedated) CBC and BMP: 07/22/18 04:16 07/22/18 04:16 ABG, PT/INR, D-dimer: ABG POC ABG pH 7.456 (7.35-7.45) H 07/21/18 04:18 POC ABG pCO2 60.4 (35-45) H 07/21/18 04:18 POC ABG pO2 64 (80-105) L 07/21/18 04:18 POC ABG HCO3 42.6 (22-26 mml/L) 07/21/18 04:18 POC ABG Total CO2 44 (23-27mmol/L) 07/21/18 04:18 POC ABG O2 Sat 92 07/21/18 04:18 PT/INR, D-dimer 1298.70 ng/mlDDU (0-234) H 07/11/18 15:04 Abnormal lab findings: Abnormal Labs 07/11/18 07/11/18 07/11/18 14:06 14:06 15:04 RBC 3.30 L Hgb 9.6 L Hct 28.7 L RDW Lymph % (Auto) Lymph # Seg Neutrophils % Abs Lymphs (Manual) D-Dimer 1298.70 H POC ABG pH POC ABG pCO2 POC ABG pO2 Sodium 132 L Potassium Chloride Carbon Dioxide Creatinine 0.6 L Glucose 103 H POC Glucose Calcium 7.3 L Lactate Dehydrogenase C-Reactive Protein Albumin 2.1 L Lymph Enumerat CD4/CD8 % CD3 Cells Absolute CD3 Count % CD4 Cells Absolute CD4 Count % CD8 Cells Absolute CD8 Count % CD19 Cells Absolute CD19 Count HIV-1 RNA PCR copies/ml HIV-1 RNA (PCR) log Miscellaneous Test Crossmatch 07/11/18 07/11/18 07/12/18 17:36 22:15 00:25 RBC Hgb Hct RDW Lymph % (Auto) Lymph # Seg Neutrophils % Abs Lymphs (Manual) D-Dimer POC ABG pH 7.289 L POC ABG pCO2 POC ABG pO2 66 L Sodium Potassium Chloride Carbon Dioxide Creatinine Glucose POC Glucose Calcium Lactate Dehydrogenase 591 H C-Reactive Protein Albumin Lymph Enumerat CD4/CD8 % CD3 Cells Absolute CD3 Count % CD4 Cells Absolute CD4 Count % CD8 Cells Absolute CD8 Count % CD19 Cells Absolute CD19 Count HIV-1 RNA PCR copies/ml HIV-1 RNA (PCR) log Miscellaneous Test see below H Crossmatch 07/12/18 07/12/18 07/12/18 00:41 05:37 19:29 RBC Hgb Hct RDW Lymph % (Auto) Lymph # Seg Neutrophils % Abs Lymphs (Manual) D-Dimer POC ABG pH 7.302 L 7.275 L POC ABG pCO2 47.1 H POC ABG pO2 Sodium Potassium Chloride Carbon Dioxide Creatinine Glucose POC Glucose Calcium Lactate Dehydrogenase 731 H C-Reactive Protein Albumin Lymph Enumerat CD4/CD8 % CD3 Cells Absolute CD3 Count % CD4 Cells Absolute CD4 Count % CD8 Cells Absolute CD8 Count % CD19 Cells Absolute CD19 Count HIV-1 RNA PCR copies/ml HIV-1 RNA (PCR) log Miscellaneous Test Crossmatch 07/12/18 07/12/18 07/13/18 19:29 19:29 04:03 RBC Hgb Hct RDW Lymph % (Auto) Lymph # Seg Neutrophils % Abs Lymphs (Manual) 220 L D-Dimer POC ABG pH 7.254 L POC ABG pCO2 49.2 H POC ABG pO2 Sodium Potassium Chloride Carbon Dioxide Creatinine Glucose POC Glucose Calcium Lactate Dehydrogenase C-Reactive Protein Albumin Lymph Enumerat CD4/CD8 0.04 L % CD3 Cells 88 H Absolute CD3 Count 194 L % CD4 Cells 3 L Absolute CD4 Count 7 L % CD8 Cells 75 H Absolute CD8 Count 177 L % CD19 Cells 4 L Absolute CD19 Count 9 L HIV-1 RNA PCR copies/ml 800776 H HIV-1 RNA (PCR) log 5.72 H Miscellaneous Test Crossmatch 07/13/18 07/13/18 07/13/18 05:46 12:23 18:31 RBC Hgb Hct RDW Lymph % (Auto) Lymph # Seg Neutrophils % Abs Lymphs (Manual) D-Dimer POC ABG pH POC ABG pCO2 POC ABG pO2 Sodium Potassium Chloride Carbon Dioxide Creatinine Glucose POC Glucose 68 L 106 H 112 H Calcium Lactate Dehydrogenase C-Reactive Protein Albumin Lymph Enumerat CD4/CD8 % CD3 Cells Absolute CD3 Count % CD4 Cells Absolute CD4 Count % CD8 Cells Absolute CD8 Count % CD19 Cells Absolute CD19 Count HIV-1 RNA PCR copies/ml HIV-1 RNA (PCR) log Miscellaneous Test Crossmatch 07/14/18 07/14/18 07/14/18 04:19 05:36 05:36 RBC 2.99 L Hgb 8.8 L Hct 25.7 L RDW 15.5 H Lymph % (Auto) Lymph # Seg Neutrophils % Abs Lymphs (Manual) D-Dimer POC ABG pH 7.337 L POC ABG pCO2 POC ABG pO2 Sodium 135 L Potassium Chloride Carbon Dioxide 21 L Creatinine 0.7 L Glucose 123 H POC Glucose Calcium 8.2 L Lactate Dehydrogenase C-Reactive Protein Albumin Lymph Enumerat CD4/CD8 % CD3 Cells Absolute CD3 Count % CD4 Cells Absolute CD4 Count % CD8 Cells Absolute CD8 Count % CD19 Cells Absolute CD19 Count HIV-1 RNA PCR copies/ml HIV-1 RNA (PCR) log Miscellaneous Test Crossmatch 07/14/18 07/14/18 07/14/18 12:14 14:33 17:18 RBC Hgb Hct RDW Lymph % (Auto) Lymph # Seg Neutrophils % Abs Lymphs (Manual) D-Dimer POC ABG pH 7.325 L POC ABG pCO2 POC ABG pO2 75 L Sodium Potassium Chloride Carbon Dioxide Creatinine Glucose POC Glucose 174 H 114 H Calcium Lactate Dehydrogenase C-Reactive Protein Albumin Lymph Enumerat CD4/CD8 % CD3 Cells Absolute CD3 Count % CD4 Cells Absolute CD4 Count % CD8 Cells Absolute CD8 Count % CD19 Cells Absolute CD19 Count HIV-1 RNA PCR copies/ml HIV-1 RNA (PCR) log Miscellaneous Test Crossmatch 07/15/18 07/15/18 07/15/18 00:17 12:29 12:29 RBC 2.64 L Hgb 7.5 L Hct 22.9 L RDW 15.4 H Lymph % (Auto) 7.0 L Lymph # 0.4 L Seg Neutrophils % 89.6 H Abs Lymphs (Manual) D-Dimer POC ABG pH POC ABG pCO2 POC ABG pO2 Sodium Potassium Chloride Carbon Dioxide Creatinine 0.6 L Glucose 124 H POC Glucose 113 H Calcium 7.3 L Lactate Dehydrogenase C-Reactive Protein Albumin Lymph Enumerat CD4/CD8 % CD3 Cells Absolute CD3 Count % CD4 Cells Absolute CD4 Count % CD8 Cells Absolute CD8 Count % CD19 Cells Absolute CD19 Count HIV-1 RNA PCR copies/ml HIV-1 RNA (PCR) log Miscellaneous Test Crossmatch 07/15/18 07/16/18 07/16/18 14:09 04:46 07:21 RBC Hgb Hct RDW Lymph % (Auto) Lymph # Seg Neutrophils % Abs Lymphs (Manual) D-Dimer POC ABG pH 7.282 L POC ABG pCO2 52.6 H POC ABG pO2 63 L Sodium Potassium Chloride Carbon Dioxide Creatinine Glucose POC Glucose Calcium Lactate Dehydrogenase C-Reactive Protein 2.70 H Albumin Lymph Enumerat CD4/CD8 % CD3 Cells Absolute CD3 Count % CD4 Cells Absolute CD4 Count % CD8 Cells Absolute CD8 Count % CD19 Cells Absolute CD19 Count HIV-1 RNA PCR copies/ml HIV-1 RNA (PCR) log Miscellaneous Test Flexitest 1 H Crossmatch 07/16/18 07/16/18 07/16/18 07:21 07:21 16:16 RBC 2.48 L Hgb 7.2 L Hct 21.5 L RDW 15.7 H Lymph % (Auto) Lymph # Seg Neutrophils % Abs Lymphs (Manual) D-Dimer POC ABG pH 7.251 L POC ABG pCO2 62.2 H POC ABG pO2 Sodium 136 L Potassium Chloride Carbon Dioxide Creatinine 0.6 L Glucose 118 H POC Glucose Calcium 7.5 L Lactate Dehydrogenase C-Reactive Protein Albumin Lymph Enumerat CD4/CD8 % CD3 Cells Absolute CD3 Count % CD4 Cells Absolute CD4 Count % CD8 Cells Absolute CD8 Count % CD19 Cells Absolute CD19 Count HIV-1 RNA PCR copies/ml HIV-1 RNA (PCR) log Miscellaneous Test Crossmatch 07/17/18 07/18/18 07/18/18 04:01 01:10 03:10 RBC 2.20 L Hgb 6.5 L Hct 19.2 L* RDW 16.0 H Lymph % (Auto) 7.2 L Lymph # 0.5 L Seg Neutrophils % 89.9 H Abs Lymphs (Manual) D-Dimer POC ABG pH 7.245 L POC ABG pCO2 63.8 H POC ABG pO2 75 L Sodium Potassium Chloride Carbon Dioxide Creatinine Glucose POC Glucose Calcium Lactate Dehydrogenase C-Reactive Protein Albumin Lymph Enumerat CD4/CD8 % CD3 Cells Absolute CD3 Count % CD4 Cells Absolute CD4 Count % CD8 Cells Absolute CD8 Count % CD19 Cells Absolute CD19 Count HIV-1 RNA PCR copies/ml HIV-1 RNA (PCR) log Miscellaneous Test Crossmatch See Detail 07/18/18 07/18/18 07/18/18 04:54 05:02 12:59 RBC Hgb Hct RDW Lymph % (Auto) Lymph # Seg Neutrophils % Abs Lymphs (Manual) D-Dimer POC ABG pH 7.615 H POC ABG pCO2 32.6 L 48.8 H POC ABG pO2 79 L 118 H Sodium Potassium Chloride Carbon Dioxide Creatinine Glucose POC Glucose 164 H Calcium Lactate Dehydrogenase C-Reactive Protein Albumin Lymph Enumerat CD4/CD8 % CD3 Cells Absolute CD3 Count % CD4 Cells Absolute CD4 Count % CD8 Cells Absolute CD8 Count % CD19 Cells Absolute CD19 Count HIV-1 RNA PCR copies/ml HIV-1 RNA (PCR) log Miscellaneous Test Crossmatch 07/18/18 07/18/18 07/19/18 18:25 20:39 03:53 RBC Hgb Hct RDW Lymph % (Auto) Lymph # Seg Neutrophils % Abs Lymphs (Manual) D-Dimer POC ABG pH 7.339 L POC ABG pCO2 59.9 H 65.0 H POC ABG pO2 69 L Sodium Potassium Chloride Carbon Dioxide Creatinine Glucose POC Glucose 155 H Calcium Lactate Dehydrogenase C-Reactive Protein Albumin Lymph Enumerat CD4/CD8 % CD3 Cells Absolute CD3 Count % CD4 Cells Absolute CD4 Count % CD8 Cells Absolute CD8 Count % CD19 Cells Absolute CD19 Count HIV-1 RNA PCR copies/ml HIV-1 RNA (PCR) log Miscellaneous Test Crossmatch 07/19/18 07/19/18 07/19/18 08:10 08:10 10:52 RBC 2.51 L Hgb 7.4 L Hct 22.0 L RDW 15.5 H Lymph % (Auto) Lymph # Seg Neutrophils % Abs Lymphs (Manual) D-Dimer POC ABG pH POC ABG pCO2 POC ABG pO2 Sodium 130 L Potassium Chloride 89.0 L Carbon Dioxide 33 H Creatinine 0.4 L Glucose 150 H POC Glucose 173 H Calcium 7.5 L Lactate Dehydrogenase C-Reactive Protein Albumin Lymph Enumerat CD4/CD8 % CD3 Cells Absolute CD3 Count % CD4 Cells Absolute CD4 Count % CD8 Cells Absolute CD8 Count % CD19 Cells Absolute CD19 Count HIV-1 RNA PCR copies/ml HIV-1 RNA (PCR) log Miscellaneous Test Crossmatch 07/19/18 07/19/18 07/20/18 17:06 23:47 04:37 RBC Hgb Hct RDW Lymph % (Auto) Lymph # Seg Neutrophils % Abs Lymphs (Manual) D-Dimer POC ABG pH POC ABG pCO2 58.5 H POC ABG pO2 67 L Sodium Potassium Chloride Carbon Dioxide Creatinine Glucose POC Glucose 117 H 114 H Calcium Lactate Dehydrogenase C-Reactive Protein Albumin Lymph Enumerat CD4/CD8 % CD3 Cells Absolute CD3 Count % CD4 Cells Absolute CD4 Count % CD8 Cells Absolute CD8 Count % CD19 Cells Absolute CD19 Count HIV-1 RNA PCR copies/ml HIV-1 RNA (PCR) log Miscellaneous Test Crossmatch 07/20/18 07/20/18 07/21/18 06:20 06:20 04:18 RBC 2.69 L Hgb 7.8 L Hct 23.6 L RDW 15.5 H Lymph % (Auto) Lymph # Seg Neutrophils % Abs Lymphs (Manual) D-Dimer POC ABG pH 7.456 H POC ABG pCO2 60.4 H POC ABG pO2 64 L Sodium 134 L Potassium Chloride 89.2 L Carbon Dioxide 38 H Creatinine 0.7 L D Glucose 120 H POC Glucose Calcium 7.6 L Lactate Dehydrogenase C-Reactive Protein Albumin Lymph Enumerat CD4/CD8 % CD3 Cells Absolute CD3 Count % CD4 Cells Absolute CD4 Count % CD8 Cells Absolute CD8 Count % CD19 Cells Absolute CD19 Count HIV-1 RNA PCR copies/ml HIV-1 RNA (PCR) log Miscellaneous Test Crossmatch 07/21/18 07/21/18 04:35 04:35 RBC 2.62 L Hgb 7.7 L Hct 23.1 L RDW 15.4 H Lymph % (Auto) Lymph # Seg Neutrophils % Abs Lymphs (Manual) D-Dimer POC ABG pH POC ABG pCO2 POC ABG pO2 Sodium 129 L Potassium 5.3 H Chloride 85.3 L Carbon Dioxide 38 H Creatinine 0.4 L Glucose 108 H POC Glucose Calcium 8.0 L Lactate Dehydrogenase C-Reactive Protein Albumin Lymph Enumerat CD4/CD8 % CD3 Cells Absolute CD3 Count % CD4 Cells Absolute CD4 Count % CD8 Cells Absolute CD8 Count % CD19 Cells Absolute CD19 Count HIV-1 RNA PCR copies/ml HIV-1 RNA (PCR) log Miscellaneous Test Crossmatch Chest x-ray: pending Allied health notes reviewed: nursing
[2018-07-21] MEDS: COZAAR ONE ×2 (12:18→13:07)
[2018-07-21] MEDS: HALFPRIN EC PO ONE ×3 (12:20→13:06)
[2018-07-21] MEDS: HEPARIN SUB-Q SCH ×2 (12:32→21:43)
[2018-07-21] MEDS: MIDAZOLAM 100 MG in NACL 0.9% 80 ML IV SCH (13:17)
--- NOTE | 2018-07-21 14:02 | Progress Note ---
Assessment and Plan Assessment and plan: Patient is a 37 yo man with a history of HIV and tobacco dependency who presents from [facility] to [facility] ED with sob and cough. Pt admitted to [facility] and initiated on Pneumonia protocol. In the ED, temp 99.8, HR 104, R 29, O2 sat 77%, BP 94/50. WBC 6.1, Hg 9.6, Plat 398. Creat 0.6. Blood culture 07/11/2018 no growth today. Sputum culture 07/11/2018 no growth today. Chest CT showed bilateral patchy and somewhat confluent alveolar infiltrates and interstitial infiltrates. No effusions. Mild cardiomegaly. Patient required emergent intubation following admission to the [facility]. Patient unfortunately has remained on full ventilatory support and very resistant hypoxia currently on high level FIO2.Patient unfortunately has remained on full ventilatory support and very resistant hypoxia currently on high level FIO2. * CT head: No CT evidence of acute intracranial abnormality. Pansinus disease * CTA CHEST: IMPRESSION: No pulmonary embolus. Bilateral patchy and somewhat confluent alveolar infiltrates and interstitial infiltrates. Noeffusions. Mild cardiomegaly. Runnings likely reflect a viral pneumonia or inhalational process * CXR IMPRESSION: Heart size is normal.There are bilateral lower lobe infiltrates. These are slightly worse than the prior study.. There is no pleural effusion or pneumothorax. Endotracheal tube is in the mid trachea. NG tube is in the stomach. There is a right-sided PICC line. The tip is in the superior vena cava.. 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 Follow-up on current diagnosis of respiratory failure, still intubated and sedated. No overnight events reported to me. Imaging, nursing note, chart, labs and old chart reviewed. FEVER overnight Hospitalist Physical - Physical exam Narrative exam: Gen: thin, critically ill, intubated and sedated HEENT: NCAT, EOMI, PERRL, OP ETT and NGT in place Neck: supple, no JVD CVS/Heart: Regular tachycardia, normal S1S2, pulses present bilaterally Chest/Lungs: diminished bs bilateral, Symmetrical chest expansion, good air entry bilaterally GI/Abdomen: soft, good bowel sounds, no guarding or rebound /Bladder: no suprapubic tenderness, Extermity/Skin: poor skin tone MSK: sedated Neuro: sedated Psych:sedated - Constitutional Vitals: Temp Pulse Resp BP Pulse Ox 101.4 F H 131 H 30 H 103/60 95 07/21/18 12:55 07/21/18 13:30 07/21/18 13:30 07/21/18 13:30 07/21/18 13:30 General appearance: Present: cachectic, disheveled. Absent: mild distress Results - Labs CBC & Chem 7: 07/21/18 04:35 07/21/18 04:35 Labs: Laboratory Last Values WBC 6.8 K/mm3 (4.5-11.0) 07/21/18 04:35 RBC 2.62 M/mm3 (3.65-5.03) L 07/21/18 04:35 Hgb 7.7 gm/dl (11.8-15.2) L 07/21/18 04:35 Hct 23.1 % (35.5-45.6) L 07/21/18 04:35 MCV 88 fl (84-94) 07/21/18 04:35 MCH 29 pg (28-32) 07/21/18 04:35 MCHC 33 % (32-34) 07/21/18 04:35 RDW 15.4 % (13.2-15.2) H 07/21/18 04:35 Plt Count 328 K/mm3 (140-440) 07/21/18 04:35 Lymph % (Auto) 7.2 % (13.4-35.0) L 07/18/18 01:10 [place] % (Auto) 2.8 % (0.0-7.3) 07/18/18 01:10 Eos % (Auto) 0.0 % (0.0-4.3) 07/18/18 01:10 Baso % (Auto) 0.1 % (0.0-1.8) 07/18/18 01:10 Lymph # 0.5 K/mm3 (1.2-5.4) L 07/18/18 01:10 [place] # 0.2 K/mm3 (0.0-0.8) 07/18/18 01:10 Eos # 0.0 K/mm3 (0.0-0.4) 07/18/18 01:10 Baso # 0.0 K/mm3 (0.0-0.1) 07/18/18 01:10 Seg Neutrophils % 89.9 % (40.0-70.0) H 07/18/18 01:10 Seg Neutrophils # 6.3 K/mm3 (1.8-7.7) 07/18/18 01:10 Abs Lymphs (Manual) 220 cells/uL (850-3900) L 07/12/18 19:29 1298.70 ng/mlDDU (0-234) H 07/11/18 15:04 POC ABG pH 7.456 (7.35-7.45) H 07/21/18 04:18 POC ABG pCO2 60.4 (35-45) H 07/21/18 04:18 POC ABG pO2 64 (80-105) L 07/21/18 04:18 POC ABG HCO3 42.6 (22-26 mml/L) 07/21/18 04:18 POC ABG Total CO2 44 (23-27mmol/L) 07/21/18 04:18 POC ABG O2 Sat 92 07/21/18 04:18 POC ABG Base Excess 19 ((-2) - (+3)mmol/L) 07/21/18 04:18 55 % 07/21/18 04:18 Sodium 129 mmol/L (137-145) L 07/21/18 04:35 Potassium 5.3 mmol/L (3.6-5.0) H 07/21/18 04:35 Chloride 85.3 mmol/L (98-107) L 07/21/18 04:35 Carbon Dioxide 38 mmol/L (22-30) H 07/21/18 04:35 11 mmol/L 07/21/18 04:35 BUN 17 mg/dL (9-20) 07/21/18 04:35 0.4 mg/dL (0.8-1.5) L 07/21/18 04:35 Estimated GFR > 60 ml/min 07/21/18 04:35 43 % 07/21/18 04:35 Glucose 108 mg/dL (75-100) H 07/21/18 04:35 POC Glucose 101 (70-105) 07/20/18 05:10 Lactic Acid 1.80 mmol/L (0.7-2.0) 07/11/18 21:01 Calcium 8.0 mg/dL (8.4-10.2) L 07/21/18 04:35 0.20 mg/dL (0.1-1.2) 07/11/18 14:06 AST 30 units/L (5-40) 07/11/18 14:06 ALT 11 units/L (7-56) 07/11/18 14:06 50 units/L (35-129) 07/11/18 14:06 731 units/L (91-180) H 07/12/18 19:29 < 0.010 ng/mL (0.00-0.029) 07/11/18 15:04 2.70 mg/dL (0.00-1.30) H 07/15/18 14:09 NT-Pro-B Natriuret Pep 249.7 pg/mL (0-450) 07/11/18 15:04 6.3 g/dL (6.3-8.2) 07/11/18 14:06 2.1 g/dL (3.9-5) L 07/11/18 14:06 0.5 % 07/11/18 14:06 Triglycerides 148 mg/dL (2-149) 07/17/18 05:00 Yellow (Yellow) 07/15/18 14:14 Clear (Clear) 07/15/18 14:14 6.0 (5.0-7.0) 07/15/18 14:14 Ur Specific [place] 1.015 (1.003-1.030) 07/15/18 14:14 30 mg/dl mg/dL (Negative) 07/15/18 14:14 Neg mg/dL (Negative) 07/15/18 14:14 Neg mg/dL (Negative) 07/15/18 14:14 Neg (Negative) 07/15/18 14:14 Neg (Negative) 07/15/18 14:14 Neg (Negative) 07/15/18 14:14 < 2.0 mg/dL (<2.0) 07/15/18 14:14 Ur Leukocyte Esterase Neg (Negative) 07/15/18 14:14 2.0 /HPF (0.0-6.0) 07/15/18 14:14 6.0 /HPF (0.0-6.0) 07/15/18 14:14 21 mmol/L 07/19/18 14:27 Lymph Enumerat CD4/CD8 0.04 (0.86-5.00) L 07/12/18 19:29 % CD3 Cells 88 % (57-85) H 07/12/18 19:29 194 cells/uL (840-3060) L 07/12/18 19:29 % CD4 Cells 3 % (30-61) L 07/12/18 19:29 7 cells/uL (490-1740) L 07/12/18 19:29 % CD8 Cells 75 % (12-42) H 07/12/18 19:29 177 cells/uL (180-1170) L 07/12/18 19:29 % CD19 Cells 4 % (6-29) L 07/12/18 19:29 9 cells/uL (110-660) L 07/12/18 19:29 RPR Nonreactive (Nonreactive) 07/12/18 23:38 CMV DNA PCR log copper plate lithographer/mL See scanned result 07/15/18 14:09 Hepatitis A IgM Ab Non-reactive (NonReactive) 07/12/18 23:38 Hep Bs Antigen Non-reactive (Negative) 07/12/18 23:38 Hep B Core IgM Ab Non-reactive (NonReactive) 07/12/18 23:38 Non-reactive (NonReactive) 07/12/18 23:38 HIV-1 RNA PCR copies/ml [id number] Copies/mL H 07/12/18 19:29 5.72 Log cps/mL H 07/12/18 19:29 Flexitest 1 H 07/16/18 07:21 Blood Type O POSITIVE 07/18/18 03:10 Antibody Screen Positive 07/18/18 03:10 Prewarmed Antibody Srcn Positive 07/18/18 03:10 Antibody Identification Anti-Adrianna 07/18/18 03:10 Direct Antiglob Test Negative 07/18/18 03:10 NIKUNJ, Poly Interpret Negative 07/18/18 03:10 Crossmatch See Detail 07/18/18 03:10 Active Medications - Current Medications Current Medications: Generic Name Dose Route Start Last Admin Trade Name Freq PRN Reason Stop Dose Admin Acetaminophen 650 mg 07/12/18 18:07 07/21/18 08:59 Tylenol FEEDTUBE 650 mg Q6H PRN Administration Non Cardiac Pain or Temp>100.5 Albuterol 2.5 mg 07/11/18 17:16 Proventil IH Q3HRT PRN Shortness Of Breath Lipase/Protease/Amylase 1 each 07/13/18 12:[address] 10,500 Unit FEEDTUBE PRN PRN For Clogged Feeding Tube Docusate Sodium 100 mg 07/15/18 12:00 07/20/18 21:10 Colace PO 100 mg BID HE Administration Doxazosin Mesylate 2 mg 07/18/18 12:00 07/21/18 10:17 Cardura PO 2 mg QDAY HE Administration Famotidine 20 mg 07/16/18 22:00 07/21/18 10:18 Pepcid PO 20 mg BID HE Administration Fentanyl 50 mcg 07/12/18 00:26 07/20/18 09:02 Sublimaze IV 50 mcg Q10MIN PRN Administration ANALGESIA Heparin Sodium (Porcine) 5,000 unit 07/20/18 10:00 07/21/18 12:32 Heparin SUB-Q 07/23/18 09:59 5,000 unit BID HE Administration Hydrophilic Ointment 1 applic 07/12/18 13:30 Vaseline Lip Therapy TP Q2HR PRN Dry Lips Trimethoprim/Sulfamethoxazole 518.75 mls @ 350 mls/hr 07/11/18 18:00 07/21/18 12:24 300 mg/ Dextrose IV 350 mls/hr Q6HR HE Administration Protocol Fentanyl Citrate 2,000 mcg in 100 mls @ 3.065 mls/hr 07/12/18 01:00 07/21/18 13:16 Fentanyl Drip Premix IV 5 mcg/kg/hr TITR HE 15.325 mls/hr Administration Protocol 1 MCG/KG/HR Propofol 1,000 mg in 100 mls @ 1.839 mls/hr 07/12/18 01:00 07/21/18 08:38 Diprivan 10 Mg/Ml IV 50 mcg/kg/min TITR HE 18.39 mls/hr Administration Protocol 5 MCG/KG/MIN Dopamine HCl/Dextrose 800 mg in 250 mls @ 2.299 mls/hr 07/12/18 22:00 07/15/18 14:28 Intropin Drip 800 Mg/D5w 250 Ml IV 0 mcg/kg/min TITR HE 0 mls/hr Titration Protocol 2 MCG/KG/MIN Linezolid 600 mg in 300 mls @ 300 mls/hr 07/15/18 14:00 07/21/18 09:01 Zyvox 600mg/300ml IV 300 mls/hr Q12HR HE Administration Protocol Midazolam HCl 100 mg/ Sodium 100 mls @ 2 mls/hr 07/18/18 13:30 07/21/18 13:17 Chloride IV 4 mg/hr TITR HE 4 mls/hr Administration Protocol 2 MG/HR Methylprednisolone Sodium Succinate 40 mg 07/16/18 14:00 07/20/18 21:10 Solu-Medrol IV 40 mg Q8HR HE Administration Midazolam HCl 2 mg 07/16/18 13:06 07/18/18 13:32 Versed IV 2 mg Q2H PRN Administration AGITATION Midazolam HCl 2 mg 07/18/18 12:44 Versed IV Q10MIN PRN Sedation Multi-Ingred Cream/Lotion/Oil/Oint 1 applic 07/12/18 13:30 Artificial Tears Ophth Oint OU Q4HR PRN Dry Eye(s) Quetiapine Fumarate 200 mg 07/16/18 14:00 07/21/18 10:19 Seroquel PO 200 mg BID HE Administration Simple Syrup 15 ml 07/13/18 12:30 Simple Syrup FEEDTUBE PRN PRN Hypoglycemia Simple Syrup 30 ml 07/13/18 12:30 Simple Syrup FEEDTUBE PRN PRN Hypoglycemia Sodium Bicarbonate 325 mg 07/13/18 12:30 Sodium Bicarbonate FEEDTUBE PRN PRN For Clogged Feeding Tube Sodium Chloride 10 ml 07/11/18 22:00 07/21/18 12:28 Sodium Chloride Flush Syringe 10 Ml IV 10 ml BID HE Administration Sodium Chloride 10 ml 07/11/18 17:16 07/18/18 09:00 Sodium Chloride Flush Syringe 10 Ml IV 10 ml PRN PRN Administration LINE FLUSH Nutrition/Malnutrition Assess - Dietary Evaluation Nutrition/Malnutrition Findings: Nutrition Notes Start: 07/12/18 09:38 Freq: Status: Active Protocol: Document 07/16/18 15:54 RM (Rec: 07/16/18 16:00 RM [id number]) Nutrition Notes Initial or Follow up Reassessment Other Pertinent Diagnosis HIV/AIDS, SOB, weakness, nicotine dependence, PCP, hyponatremia syndrome Current Diet Vital 1.2 at 65 ml/hr Labs/Tests Reviewed Pertinent Medications Solu-medrol Diprivan Height 5 ft 11 in Weight 66.7 kg [place] Body Weight (kg) 78.18 BMI 20.5 Weight change and time frame Current wt obtained from scale Subjective/Other Information Observed Vital 1.2 infusing at 65 ml/hr. Per nurse pt is tolerating TF. Percent of energy/protein needs met: 96%/100% Burn Absent Trauma Absent #2 Nutrition Diagnosis Inadequate oral intake Diagnosis Progress(for reassessment Continues documentation) #1 Nutrition Diagnosis Malnutrition Diagnosis Progress(for reassessment Continues documentation) Is patient on ventilator? Yes Is Patient Ambulatory and/or Out of Bed No REE-([place]-St. Jeor-confined to bed) 3671.601 Calculation Used for Recommendations [place]-St or Additional Notes Protein: 74- 92 g (1.2-1.5 g/ kg) Fluid: 1 ml/kcal Nutrition Intervention Nutrition Support: Vital 1.2 at 65 mL/hr Flush 100 mL q 4 hr Kcal 1,872 Protein (gm) 117 Carbohydrates (gm) 173 Fat (gm) 84 Fluid (mL) 1,265 Fiber (gm) 8 Goal #1 TF tolerance Goal #2 TF to meet at least 80% of [place] and pro needs Anticipated Discharge Needs: Unable to determine at this time Follow-Up By: 07/23/18 Additional Comments Follow for TF tolerance
[2018-07-21] MEDS: SOLU-Medrol IV SCH ×3 (14:28→21:42)
[2018-07-22] MEDS: fentaNYL DRIP Premix 2,000 MCG/100 ML BAG IV SCH ×3 (02:14→17:17)
[2018-07-22 04:59] LABS: Hematocrit 21.1 % (35.5-45.6); Mean Corpuscular HGB Conc 33 % (32-34); Mean Corpuscular Volume 89 fl (84-94); Platelet Count 289 K/mm3 (140-440); Red Blood Count 2.37 M/mm3 (3.65-5.03)
[2018-07-22] MEDS: DIPRIVAN 10 MG/ML 1,000 MG/100 ML BOTTLE IV SCH ×3 (05:06→22:00)
[2018-07-22 05:18] LABS: BUN/Creatinine Ratio 38; Blood Urea Nitrogen 15 mg/dL (9-20); Calcium 7.5 mg/dL (8.4-10.2); Hemolysis Index 2
[2018-07-22] MEDS: BACTRIM 300 MG in D5W 500 ML IV SCH ×4 (06:25→23:30)
[2018-07-22] MEDS: SOLU-Medrol IV SCH ×3 (06:26→22:00)
[2018-07-22] MEDS: SODIUM CHLORIDE FLUSH SYRINGE 10 ML IV SCH ×2 (10:05→22:01)
[2018-07-22] MEDS: CARDURA PO SCH (10:05)
[2018-07-22] MEDS: ZYVOX 600MG/300ML 600 MG/300 ML BAG IV SCH ×2 (10:05→21:59)
[2018-07-22] MEDS: PEPCID PO SCH ×2 (10:05→22:00)
[2018-07-22] MEDS: COLACE PO SCH ×2 (10:06→22:00)
[2018-07-22] MEDS: HEPARIN SUB-Q SCH ×2 (10:07→22:00)
--- NOTE | 2018-07-22 13:26 | Progress Note ---
Assessment and Plan Assessment and plan: Patient is a 37 yo man with a history of HIV and tobacco dependency who presents from [facility] to [facility] ED with sob and cough. Pt admitted to [facility] and initiated on Pneumonia protocol. In the ED, temp 99.8, HR 104, R 29, O2 sat 77%, BP 94/50. WBC 6.1, Hg 9.6, Plat 398. Creat 0.6. Blood culture 07/11/2018 no growth today. Sputum culture 07/11/2018 no growth today. Chest CT showed bilateral patchy and somewhat confluent alveolar infiltrates and interstitial infiltrates. No effusions. Mild cardiomegaly. Patient required emergent intubation following admission to the [facility]. Patient unfortunately has remained on full ventilatory support and very resistant hypoxia currently on high level FIO2.Patient unfortunately has remained on full ventilatory support and very resistant hypoxia currently on high level FIO2. * CT head: No CT evidence of acute intracranial abnormality. Pansinus disease * CTA CHEST: IMPRESSION: No pulmonary embolus. Bilateral patchy and somewhat confluent alveolar infiltrates and interstitial infiltrates. Noeffusions. Mild cardiomegaly. Runnings likely reflect a viral pneumonia or inhalational process * CXR IMPRESSION: Heart size is normal.There are bilateral lower lobe infiltrates. These are slightly worse than the prior study.. There is no pleural effusion or pneumothorax. Endotracheal tube is in the mid trachea. NG tube is in the stomach. There is a right-sided PICC line. The tip is in the superior vena cava.. 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 Follow-up on current diagnosis of respiratory failure, still intubated and sedated. No overnight events reported to me. Imaging, nursing note, chart, labs and old chart reviewed. D/W nurse Hospitalist Physical - Physical exam Narrative exam: Gen: thin, critically ill, intubated and sedated HEENT: NCAT, EOMI, PERRL, OP ETT and NGT in place Neck: supple, no JVD CVS/Heart: Regular tachycardia, normal S1S2, pulses present bilaterally Chest/Lungs: tachypenic, diminished bs bilateral, Symmetrical chest expansion, good air entry bilaterally GI/Abdomen: soft, good bowel sounds, no guarding or rebound /Bladder: no suprapubic tenderness, Extermity/Skin: poor skin tone MSK: sedated Neuro: sedated Psych:sedated - Constitutional Vitals: Temp Pulse Resp BP Pulse Ox 97.4 F L 116 H 30 H 114/68 96 07/22/18 08:00 07/22/18 13:10 07/22/18 10:30 07/22/18 13:10 07/22/18 13:10 General appearance: Present: cachectic, disheveled. Absent: mild distress Results - Labs CBC & Chem 7: 07/22/18 04:16 07/22/18 04:16 Labs: Laboratory Last Values WBC 6.8 K/mm3 (4.5-11.0) 07/22/18 04:16 RBC 2.37 M/mm3 (3.65-5.03) L 07/22/18 04:16 Hgb 7.0 gm/dl (11.8-15.2) L 07/22/18 04:16 Hct 21.1 % (35.5-45.6) L 07/22/18 04:16 MCV 89 fl (84-94) 07/22/18 04:16 MCH 29 pg (28-32) 07/22/18 04:16 MCHC 33 % (32-34) 07/22/18 04:16 RDW 15.0 % (13.2-15.2) 07/22/18 04:16 Plt Count 289 K/mm3 (140-440) 07/22/18 04:16 Lymph % (Auto) 7.2 % (13.4-35.0) L 07/18/18 01:10 [place] % (Auto) 2.8 % (0.0-7.3) 07/18/18 01:10 Eos % (Auto) 0.0 % (0.0-4.3) 07/18/18 01:10 Baso % (Auto) 0.1 % (0.0-1.8) 07/18/18 01:10 Lymph # 0.5 K/mm3 (1.2-5.4) L 07/18/18 01:10 [place] # 0.2 K/mm3 (0.0-0.8) 07/18/18 01:10 Eos # 0.0 K/mm3 (0.0-0.4) 07/18/18 01:10 Baso # 0.0 K/mm3 (0.0-0.1) 07/18/18 01:10 Seg Neutrophils % 89.9 % (40.0-70.0) H 07/18/18 01:10 Seg Neutrophils # 6.3 K/mm3 (1.8-7.7) 07/18/18 01:10 Abs Lymphs (Manual) 220 cells/uL (850-3900) L 07/12/18 19:29 1298.70 ng/mlDDU (0-234) H 07/11/18 15:04 POC ABG pH 7.394 (7.35-7.45) 07/22/18 04:36 POC ABG pCO2 60.4 (35-45) H 07/21/18 04:18 POC ABG pO2 91 (80-105) 07/22/18 04:36 POC ABG HCO3 44.0 (22-26 mml/L) 07/22/18 04:36 POC ABG Total CO2 46 (23-27mmol/L) 07/22/18 04:36 POC ABG O2 Sat 96 07/22/18 04:36 POC ABG Base Excess 19 ((-2) - (+3)mmol/L) 07/22/18 04:36 50 % 07/22/18 04:36 Sodium 132 mmol/L (137-145) L 07/22/18 04:16 Potassium 5.4 mmol/L (3.6-5.0) H 07/22/18 04:16 Chloride 87.4 mmol/L (98-107) L 07/22/18 04:16 Carbon Dioxide 38 mmol/L (22-30) H 07/22/18 04:16 12 mmol/L 07/22/18 04:16 BUN 15 mg/dL (9-20) 07/22/18 04:16 0.4 mg/dL (0.8-1.5) L 07/22/18 04:16 Estimated GFR > 60 ml/min 07/22/18 04:16 38 % 07/22/18 04:16 Glucose 117 mg/dL (75-100) H 07/22/18 04:16 POC Glucose 101 (70-105) 07/20/18 05:10 Lactic Acid 1.80 mmol/L (0.7-2.0) 07/11/18 21:01 Calcium 7.5 mg/dL (8.4-10.2) L 07/22/18 04:16 0.20 mg/dL (0.1-1.2) 07/11/18 14:06 AST 30 units/L (5-40) 07/11/18 14:06 ALT 11 units/L (7-56) 07/11/18 14:06 50 units/L (35-129) 07/11/18 14:06 731 units/L (91-180) H 07/12/18 19:29 < 0.010 ng/mL (0.00-0.029) 07/11/18 15:04 2.70 mg/dL (0.00-1.30) H 07/15/18 14:09 NT-Pro-B Natriuret Pep 249.7 pg/mL (0-450) 07/11/18 15:04 6.3 g/dL (6.3-8.2) 07/11/18 14:06 2.1 g/dL (3.9-5) L 07/11/18 14:06 0.5 % 07/11/18 14:06 Triglycerides 148 mg/dL (2-149) 07/17/18 05:00 Yellow (Yellow) 07/15/18 14:14 Clear (Clear) 07/15/18 14:14 6.0 (5.0-7.0) 07/15/18 14:14 Ur Specific [place] 1.015 (1.003-1.030) 07/15/18 14:14 30 mg/dl mg/dL (Negative) 07/15/18 14:14 Neg mg/dL (Negative) 07/15/18 14:14 Neg mg/dL (Negative) 07/15/18 14:14 Neg (Negative) 07/15/18 14:14 Neg (Negative) 07/15/18 14:14 Neg (Negative) 07/15/18 14:14 < 2.0 mg/dL (<2.0) 07/15/18 14:14 Ur Leukocyte Esterase Neg (Negative) 07/15/18 14:14 2.0 /HPF (0.0-6.0) 07/15/18 14:14 6.0 /HPF (0.0-6.0) 07/15/18 14:14 21 mmol/L 07/19/18 14:27 Lymph Enumerat CD4/CD8 0.04 (0.86-5.00) L 07/12/18 19:29 % CD3 Cells 88 % (57-85) H 07/12/18 19:29 194 cells/uL (840-3060) L 07/12/18 19:29 % CD4 Cells 3 % (30-61) L 07/12/18 19:29 7 cells/uL (490-1740) L 07/12/18 19:29 % CD8 Cells 75 % (12-42) H 07/12/18 19:29 177 cells/uL (180-1170) L 07/12/18 19:29 % CD19 Cells 4 % (6-29) L 07/12/18 19:29 9 cells/uL (110-660) L 07/12/18 19:29 RPR Nonreactive (Nonreactive) 07/12/18 23:38 CMV DNA PCR log telescope maintenance/mL See scanned result 07/15/18 14:09 Hepatitis A IgM Ab Non-reactive (NonReactive) 07/12/18 23:38 Hep Bs Antigen Non-reactive (Negative) 07/12/18 23:38 Hep B Core IgM Ab Non-reactive (NonReactive) 07/12/18 23:38 Non-reactive (NonReactive) 07/12/18 23:38 HIV-1 RNA PCR copies/ml [id number] Copies/mL H 07/12/18 19:29 5.72 Log cps/mL H 07/12/18 19:29 Flexitest 1 H 07/16/18 07:21 Blood Type O POSITIVE 07/18/18 03:10 Antibody Screen Positive 07/18/18 03:10 Prewarmed Antibody Srcn Positive 07/18/18 03:10 Antibody Identification Anti-Adrianna 07/18/18 03:10 Direct Antiglob Test Negative 07/18/18 03:10 NIKUNJ, Poly Interpret Negative 07/18/18 03:10 Crossmatch See Detail 07/18/18 03:10 Active Medications - Current Medications Current Medications: Generic Name Dose Route Start Last Admin Trade Name Freq PRN Reason Stop Dose Admin Acetaminophen 650 mg 07/12/18 18:07 07/21/18 19:30 Tylenol FEEDTUBE 650 mg Q6H PRN Administration Non Cardiac Pain or Temp>100.5 Albuterol 2.5 mg 07/11/18 17:16 Proventil IH Q3HRT PRN Shortness Of Breath Lipase/Protease/Amylase 1 each 07/13/18 12:30 Pancreaze 10,500 Unit FEEDTUBE PRN PRN For Clogged Feeding Tube Docusate Sodium 100 mg 07/15/18 12:00 07/22/18 10:06 Colace PO 100 mg BID HE Administration Doxazosin Mesylate 2 mg 07/18/18 12:00 07/22/18 10:05 Cardura PO 2 mg QDAY HE Administration Famotidine 20 mg 07/16/18 22:00 07/22/18 10:05 Pepcid PO 20 mg BID HE Administration Fentanyl 50 mcg 07/12/18 00:26 07/20/18 09:02 Sublimaze IV 50 mcg Q10MIN PRN Administration ANALGESIA Heparin Sodium (Porcine) 5,000 unit 07/20/18 10:00 07/22/18 10:07 Heparin SUB-Q 07/23/18 09:59 5,000 unit BID HE Administration Hydrophilic Ointment 1 applic 07/12/18 13:30 Vaseline Lip Therapy TP Q2HR PRN Dry Lips Fentanyl Citrate 2,000 mcg in 100 mls @ 3.065 mls/hr 07/12/18 01:00 07/22/18 10:27 Fentanyl Drip Premix IV 4 mcg/kg/hr TITR HE 12.26 mls/hr Titration Protocol 1 MCG/KG/HR Propofol 1,000 mg in 100 mls @ 1.839 mls/hr 07/12/18 01:00 07/22/18 11:46 Diprivan 10 Mg/Ml IV 20 mcg/kg/min TITR HE 7.356 mls/hr Titration Protocol 5 MCG/KG/MIN Dopamine HCl/Dextrose 800 mg in 250 mls @ 2.299 mls/hr 07/12/18 22:00 07/15/18 14:28 Intropin Drip 800 Mg/D5w 250 Ml IV 0 mcg/kg/min TITR HE 0 mls/hr Titration Protocol 2 MCG/KG/MIN Linezolid 600 mg in 300 mls @ 300 mls/hr 07/15/18 14:00 07/22/18 10:05 Zyvox 600mg/300ml IV 300 mls/hr Q12HR HE Administration Protocol Midazolam HCl 100 mg/ Sodium 100 mls @ 2 mls/hr 07/18/18 13:30 07/21/18 13:17 Chloride IV 4 mg/hr TITR HE 4 mls/hr Administration Protocol 2 MG/HR Trimethoprim/Sulfamethoxazole 518.75 mls @ 350 mls/hr 07/22/18 00:00 07/22/18 11:41 300 mg/ Dextrose IV 350 mls/hr Q6HR HE Administration Protocol Methylprednisolone Sodium Succinate 40 mg 07/16/18 14:00 07/22/18 06:26 Solu-Medrol IV 40 mg Q8HR HE Administration Midazolam HCl 2 mg 07/16/18 13:06 07/18/18 13:32 Versed IV 2 mg Q2H PRN Administration AGITATION Midazolam HCl 2 mg 07/18/18 12:44 Versed IV Q10MIN PRN Sedation Multi-Ingred Cream/Lotion/Oil/Oint 1 applic 07/12/18 13:30 Artificial Tears Ophth Oint OU Q4HR PRN Dry Eye(s) Quetiapine Fumarate 200 mg 07/16/18 14:00 07/22/18 10:07 Seroquel PO 200 mg BID HE Administration Simple Syrup 15 ml 07/13/18 12:30 Simple Syrup FEEDTUBE PRN PRN Hypoglycemia Simple Syrup 30 ml 07/13/18 12:30 Simple Syrup FEEDTUBE PRN PRN Hypoglycemia Sodium Bicarbonate 325 mg 07/13/18 12:30 Sodium Bicarbonate FEEDTUBE PRN PRN For Clogged Feeding Tube Sodium Chloride 10 ml 07/11/18 22:00 07/22/18 10:05 Sodium Chloride Flush Syringe 10 Ml IV 10 ml BID HE Administration Sodium Chloride 10 ml 07/11/18 17:16 07/18/18 09:00 Sodium Chloride Flush Syringe 10 Ml IV 10 ml PRN PRN Administration LINE FLUSH Nutrition/Malnutrition Assess - Dietary Evaluation Nutrition/Malnutrition Findings: Nutrition Notes Start: 07/12/18 09:38 Freq: Status: Active Protocol: Document 07/16/18 15:54 RM (Rec: 07/16/18 16:00 RM [id number]) Nutrition Notes Initial or Follow up Reassessment Other Pertinent Diagnosis HIV/AIDS, SOB, weakness, nicotine dependence, PCP, hyponatremia syndrome Current Diet Vital 1.2 at 65 ml/hr Labs/Tests Reviewed Pertinent Medications Solu-medrol Diprivan Height 5 ft 11 in Weight 66.7 kg [place] Body Weight (kg) 78.18 BMI 20.5 Weight change and time frame Current wt obtained from scale Subjective/Other Information Observed Vital 1.2 infusing at 65 ml/hr. Per nurse pt is tolerating TF. Percent of energy/protein needs met: 96%/100% Burn Absent Trauma Absent #2 Nutrition Diagnosis Inadequate oral intake Diagnosis Progress(for reassessment Continues documentation) #1 Nutrition Diagnosis Malnutrition Diagnosis Progress(for reassessment Continues documentation) Is patient on ventilator? Yes Is Patient Ambulatory and/or Out of Bed No REE-([facility]-confined to bed) [phone] Calculation Used for Recommendations [facility] Additional Notes Protein: 74- 92 g (1.2-1.5 g/ kg) Fluid: 1 ml/kcal Nutrition Intervention Nutrition Support: Vital 1.2 at 65 mL/hr Flush 100 mL q 4 hr Kcal 1,872 Protein (gm) 117 Carbohydrates (gm) 173 Fat (gm) 84 Fluid (mL) 1,265 Fiber (gm) 8 Goal #1 TF tolerance Goal #2 TF to meet at least 80% of [place] needs Anticipated Discharge Needs: Unable to determine at this time Follow-Up By: 07/23/18 Additional Comments Follow for TF tolerance
[2018-07-22] MEDS: MIDAZOLAM 100 MG in NACL 0.9% 80 ML IV SCH (14:45)
--- NOTE | 2018-07-22 16:10 | XRay Report ---
PROCEDURE: XR CHEST 1V AP TECHNIQUE: Single view chest x-ray HISTORY: ETT placement COMPARISONS: Chest x-ray July 19, 2018 FINDINGS: Endotracheal tube tip 7.4 cm above the quan. Feeding tube with tip below diaphragm. Right PICC stab le. Patchy bibasilar airspace disease with no substantial change. No pneumothorax. No sizable effusio n. No acute bony abnormality IMPRESSION: No significant interval change.. This document is electronically signed by Rickie Allen MD., Jul 22 2018 04:08:42 PM ET
--- NOTE | 2018-07-22 16:27 | Progress Note ---
Assessment and Plan Acute hypoxemic respiratory failure, on mechanical ventilatory support. Bilateral pneumonia, high suspicion for Pneumocystis jiroveci pneumonia. Human immunodeficiency virus/acquired immunodeficiency syndrome,noncompliant wit h therapy. Hyponatremia. Severe protein calorie malnutrition. Elevated D-dimer. Tobacco use disorder. - ETT advanced to 24 cm SHONA - CXR ordered and placement confirmed - continue versed drip and target RASS -1 to -2 acutely - continue to wean supplemental oxygen to keep O2 sats 88-90% acutely - keep Peep at 12 cm H2O - continue Seroquel bid dosing to spare IV sedatives (dose increased to 250mg bi d) - PJP stain positive - continue current set rate at 30/min on MVS and TV 350 mls (LTVV /4-6mls/kg IBW) - ARDS ventilatory strategies with low TV - daily SAT's & SBT assessment as tolerated - continue bronchodilators with pulmonary hygiene per RT - continue GI & VTE prophylaxis - Lung protective strategies - prn CXR's at this point - VAP bundle addressed - Tracheal aspirate growing MRSA - continue Anti-infectives and ART per ID rec's - Chambers catheter placed for acute urinary retention. - Continue full MVS - Monitor renal indices closely - Avoid nephrotoxic agents, adjust all medications for CrCL - Strict intake and output monitoring - Tube feedings as tolerated - Accuchecks with glycemic control. Target glucose of 140-180 mg/dL - Maintenance of sleep -wake cycle - Mobility as tolerated by hemodynamics - Influenza and pneumonia vaccination per protocol ..care plan discussed at length with RN/RT at the bedside ..discussed in ICU-IDT rounds PROGNOSIS: GUARDED CONDITION: CRITICAL CODE STATUS: FULL CODE The high probability of a clinically significant, sudden or life-threatening deterioration of the [respiratory, neurology, renal] system(s) required my full and direct attention, intervention and personal management. The aggregate critical care time was [31] minutes without overlap. Time includes spent on; [x] Data Review and interpretation [x] Patient assessment and monitoring of vital signs [x] Documentation [x] Medication orders and management Subjective Date of service: 07/22/18 Principal diagnosis: Acute hypoxemic resp failure; Bilateral pneumonia (PJP); HIV/AIDS Interval history: Patient is seen today for: Acute hypoxemic respiratory failure, on mechanical ventilatory support; Bilateral pneumonia, high suspicion for Pneumocystis jiroveci pneumonia; Human immunodeficiency virus/acquired immunodeficiency syndrome,noncompliant with therapy; Hyponatremia; Severe protein calorie malnutrition. Seen and examined at bedside; 24-hour events reviewed; nursing and respiratory care staff consulted; no adverse overnight events reported to me; remains on MVS; still with intermittent agitation but RN able to reduse propofol dose; tongued out ETT and advanced at bedside; Objective Vital Signs - 12hr 07/22/18 07/22/18 07/22/18 04:30 05:00 05:30 Temperature Pulse Rate 111 H 112 H 108 H Pulse Rate [ From Monitor] Respiratory 30 H 34 H 30 H Rate Blood Pressure 115/69 111/68 114/65 O2 Sat by Pulse 96 96 96 Oximetry 07/22/18 07/22/18 07/22/18 06:00 06:30 07:00 Temperature Pulse Rate 111 H 109 H 112 H Pulse Rate [ From Monitor] Respiratory 30 H 30 H 30 H Rate Blood Pressure 108/64 110/63 111/66 O2 Sat by Pulse 95 95 96 Oximetry 07/22/18 07/22/18 07/22/18 07:30 08:00 08:30 Temperature 97.4 F L Pulse Rate 110 H 116 H 111 H Pulse Rate [ 118 H From Monitor] Respiratory 30 H 28 H 30 H Rate Blood Pressure 113/68 122/73 114/69 O2 Sat by Pulse 96 95 94 Oximetry 07/22/18 07/22/18 07/22/18 08:45 09:00 09:30 Temperature Pulse Rate 114 H 124 H 121 H Pulse Rate [ From Monitor] Respiratory 29 H 43 H Rate Blood Pressure 114/69 116/74 115/79 O2 Sat by Pulse 93 92 90 Oximetry 07/22/18 07/22/18 07/22/18 10:00 10:05 10:30 Temperature Pulse Rate 106 H 110 H 120 H Pulse Rate [ From Monitor] Respiratory 30 H 30 H Rate Blood Pressure 121/66 121/66 110/67 O2 Sat by Pulse 94 97 Oximetry 07/22/18 07/22/18 07/22/18 11:00 11:30 12:00 Temperature 97.5 F L Pulse Rate 119 H 115 H 118 H Pulse Rate [ 114 H From Monitor] Respiratory 30 H 30 H 26 H Rate Blood Pressure 105/63 108/69 113/66 O2 Sat by Pulse 97 97 95 Oximetry 05/02/2807/22/18 07/22/18 12:30 13:00 13:10 Temperature Pulse Rate 114 H 118 H 116 H Pulse Rate [ From Monitor] Respiratory 31 H 28 H Rate Blood Pressure 112/63 114/68 114/68 O2 Sat by Pulse 94 94 96 Oximetry 07/22/18 07/22/18 07/22/18 13:30 14:00 14:30 Temperature Pulse Rate 131 H 119 H 116 H Pulse Rate [ From Monitor] Respiratory 40 H 20 31 H Rate Blood Pressure 122/71 114/67 129/79 O2 Sat by Pulse 86 94 95 Oximetry 07/22/18 07/22/18 07/22/18 15:00 15:30 16:00 Temperature Pulse Rate 125 H 111 H 117 H Pulse Rate [ 110 H From Monitor] Respiratory 32 H 30 H 29 H Rate Blood Pressure 127/74 124/74 149/92 O2 Sat by Pulse 99 93 94 Oximetry Constitutional: appears uncomfortable, other (young AAM; normocephalic and atraumatic) Eyes: non-icteric ENT: oropharynx moist, other (ETT 23 cm SHONA) Neck: supple, no lymphadenopathy, no JVD Effort: mildly labored Ascultation: Bilateral: diminished breath sounds, rales Percussion: Bilateral: not dull Cardiovascular: regular rate and rhythm Gastrointestinal: normoactive bowel sounds, soft, non-tender, non-distended Integumentary: normal Extremities: no cyanosis, no edema, pulses normal, no ischemia or petechiae Neurologic: normal mental status, non-focal exam, pupils equal and round, CN II- XII normal, motor strength normal and Psychiatric: other (sedated) CBC and BMP: 07/22/18 04:16 07/22/18 04:16 ABG, PT/INR, D-dimer: ABG POC ABG pH 7.394 (7.35-7.45) 07/22/18 04:36 POC ABG pO2 91 (80-105) 07/22/18 04:36 POC ABG HCO3 44.0 (22-26 mml/L) 07/22/18 04:36 POC ABG Total CO2 46 (23-27mmol/L) 07/22/18 04:36 POC ABG O2 Sat 96 07/22/18 04:36 PT/INR, D-dimer 1298.70 ng/mlDDU (0-234) H 07/11/18 15:04 Abnormal lab findings: Abnormal Labs 07/11/18 07/11/18 07/11/18 14:06 14:06 15:04 RBC 3.30 L Hgb 9.6 L Hct 28.7 L RDW Lymph % (Auto) Lymph # Seg Neutrophils % Abs Lymphs (Manual) D-Dimer 1298.70 H POC ABG pH POC ABG pCO2 POC ABG pO2 Sodium 132 L Potassium Chloride Carbon Dioxide Creatinine 0.6 L Glucose 103 H POC Glucose Calcium 7.3 L Lactate Dehydrogenase C-Reactive Protein Albumin 2.1 L Lymph Enumerat CD4/CD8 % CD3 Cells Absolute CD3 Count % CD4 Cells Absolute CD4 Count % CD8 Cells Absolute CD8 Count % CD19 Cells Absolute CD19 Count HIV-1 RNA PCR copies/ml HIV-1 RNA (PCR) log Miscellaneous Test Crossmatch 07/11/18 07/11/18 07/12/18 17:36 22:15 00:25 RBC Hgb Hct RDW Lymph % (Auto) Lymph # Seg Neutrophils % Abs Lymphs (Manual) D-Dimer POC ABG pH 7.289 L POC ABG pCO2 POC ABG pO2 66 L Sodium Potassium Chloride Carbon Dioxide Creatinine Glucose POC Glucose Calcium Lactate Dehydrogenase 591 H C-Reactive Protein Albumin Lymph Enumerat CD4/CD8 % CD3 Cells Absolute CD3 Count % CD4 Cells Absolute CD4 Count % CD8 Cells Absolute CD8 Count % CD19 Cells Absolute CD19 Count HIV-1 RNA PCR copies/ml HIV-1 RNA (PCR) log Miscellaneous Test see below H Crossmatch 07/12/18 07/12/18 07/12/18 00:41 05:37 19:29 RBC Hgb Hct RDW Lymph % (Auto) Lymph # Seg Neutrophils % Abs Lymphs (Manual) D-Dimer POC ABG pH 7.302 L 7.275 L POC ABG pCO2 47.1 H POC ABG pO2 Sodium Potassium Chloride Carbon Dioxide Creatinine Glucose POC Glucose Calcium Lactate Dehydrogenase 731 H C-Reactive Protein Albumin Lymph Enumerat CD4/CD8 % CD3 Cells Absolute CD3 Count % CD4 Cells Absolute CD4 Count % CD8 Cells Absolute CD8 Count % CD19 Cells Absolute CD19 Count HIV-1 RNA PCR copies/ml HIV-1 RNA (PCR) log Miscellaneous Test Crossmatch 07/12/18 07/12/18 07/13/18 19:29 19:29 04:03 RBC Hgb Hct RDW Lymph % (Auto) Lymph # Seg Neutrophils % Abs Lymphs (Manual) 220 L D-Dimer POC ABG pH 7.254 L POC ABG pCO2 49.2 H POC ABG pO2 Sodium Potassium Chloride Carbon Dioxide Creatinine Glucose POC Glucose Calcium Lactate Dehydrogenase C-Reactive Protein Albumin Lymph Enumerat CD4/CD8 0.04 L % CD3 Cells 88 H Absolute CD3 Count 194 L % CD4 Cells 3 L Absolute CD4 Count 7 L % CD8 Cells 75 H Absolute CD8 Count 177 L % CD19 Cells 4 L Absolute CD19 Count 9 L HIV-1 RNA PCR copies/ml 178659 H HIV-1 RNA (PCR) log 5.72 H Miscellaneous Test Crossmatch 07/13/18 07/13/18 07/13/18 05:46 12:23 18:31 RBC Hgb Hct RDW Lymph % (Auto) Lymph # Seg Neutrophils % Abs Lymphs (Manual) D-Dimer POC ABG pH POC ABG pCO2 POC ABG pO2 Sodium Potassium Chloride Carbon Dioxide Creatinine Glucose POC Glucose 68 L 106 H 112 H Calcium Lactate Dehydrogenase C-Reactive Protein Albumin Lymph Enumerat CD4/CD8 % CD3 Cells Absolute CD3 Count % CD4 Cells Absolute CD4 Count % CD8 Cells Absolute CD8 Count % CD19 Cells Absolute CD19 Count HIV-1 RNA PCR copies/ml HIV-1 RNA (PCR) log Miscellaneous Test Crossmatch 07/14/18 07/14/18 07/14/18 04:19 05:36 05:36 RBC 2.99 L Hgb 8.8 L Hct 25.7 L RDW 15.5 H Lymph % (Auto) Lymph # Seg Neutrophils % Abs Lymphs (Manual) D-Dimer POC ABG pH 7.337 L POC ABG pCO2 POC ABG pO2 Sodium 135 L Potassium Chloride Carbon Dioxide 21 L Creatinine 0.7 L Glucose 123 H POC Glucose Calcium 8.2 L Lactate Dehydrogenase C-Reactive Protein Albumin Lymph Enumerat CD4/CD8 % CD3 Cells Absolute CD3 Count % CD4 Cells Absolute CD4 Count % CD8 Cells Absolute CD8 Count % CD19 Cells Absolute CD19 Count HIV-1 RNA PCR copies/ml HIV-1 RNA (PCR) log Miscellaneous Test Crossmatch 07/14/18 07/14/18 07/14/18 12:14 14:33 17:18 RBC Hgb Hct RDW Lymph % (Auto) Lymph # Seg Neutrophils % Abs Lymphs (Manual) D-Dimer POC ABG pH 7.325 L POC ABG pCO2 POC ABG pO2 75 L Sodium Potassium Chloride Carbon Dioxide Creatinine Glucose POC Glucose 174 H 114 H Calcium Lactate Dehydrogenase C-Reactive Protein Albumin Lymph Enumerat CD4/CD8 % CD3 Cells Absolute CD3 Count % CD4 Cells Absolute CD4 Count % CD8 Cells Absolute CD8 Count % CD19 Cells Absolute CD19 Count HIV-1 RNA PCR copies/ml HIV-1 RNA (PCR) log Miscellaneous Test Crossmatch 07/15/18 07/15/18 07/15/18 00:17 12:29 12:29 RBC 2.64 L Hgb 7.5 L Hct 22.9 L RDW 15.4 H Lymph % (Auto) 7.0 L Lymph # 0.4 L Seg Neutrophils % 89.6 H Abs Lymphs (Manual) D-Dimer POC ABG pH POC ABG pCO2 POC ABG pO2 Sodium Potassium Chloride Carbon Dioxide Creatinine 0.6 L Glucose 124 H POC Glucose 113 H Calcium 7.3 L Lactate Dehydrogenase C-Reactive Protein Albumin Lymph Enumerat CD4/CD8 % CD3 Cells Absolute CD3 Count % CD4 Cells Absolute CD4 Count % CD8 Cells Absolute CD8 Count % CD19 Cells Absolute CD19 Count HIV-1 RNA PCR copies/ml HIV-1 RNA (PCR) log Miscellaneous Test Crossmatch 07/15/18 07/16/18 07/16/18 14:09 04:46 07:21 RBC Hgb Hct RDW Lymph % (Auto) Lymph # Seg Neutrophils % Abs Lymphs (Manual) D-Dimer POC ABG pH 7.282 L POC ABG pCO2 52.6 H POC ABG pO2 63 L Sodium Potassium Chloride Carbon Dioxide Creatinine Glucose POC Glucose Calcium Lactate Dehydrogenase C-Reactive Protein 2.70 H Albumin Lymph Enumerat CD4/CD8 % CD3 Cells Absolute CD3 Count % CD4 Cells Absolute CD4 Count % CD8 Cells Absolute CD8 Count % CD19 Cells Absolute CD19 Count HIV-1 RNA PCR copies/ml HIV-1 RNA (PCR) log Miscellaneous Test Flexitest 1 H Crossmatch 07/16/18 07/16/18 07/16/18 07:21 07:21 16:16 RBC 2.48 L Hgb 7.2 L Hct 21.5 L RDW 15.7 H Lymph % (Auto) Lymph # Seg Neutrophils % Abs Lymphs (Manual) D-Dimer POC ABG pH 7.251 L POC ABG pCO2 62.2 H POC ABG pO2 Sodium 136 L Potassium Chloride Carbon Dioxide Creatinine 0.6 L Glucose 118 H POC Glucose Calcium 7.5 L Lactate Dehydrogenase C-Reactive Protein Albumin Lymph Enumerat CD4/CD8 % CD3 Cells Absolute CD3 Count % CD4 Cells Absolute CD4 Count % CD8 Cells Absolute CD8 Count % CD19 Cells Absolute CD19 Count HIV-1 RNA PCR copies/ml HIV-1 RNA (PCR) log Miscellaneous Test Crossmatch 07/17/18 07/18/18 07/18/18 04:01 01:10 03:10 RBC 2.20 L Hgb 6.5 L Hct 19.2 L* RDW 16.0 H Lymph % (Auto) 7.2 L Lymph # 0.5 L Seg Neutrophils % 89.9 H Abs Lymphs (Manual) D-Dimer POC ABG pH 7.245 L POC ABG pCO2 63.8 H POC ABG pO2 75 L Sodium Potassium Chloride Carbon Dioxide Creatinine Glucose POC Glucose Calcium Lactate Dehydrogenase C-Reactive Protein Albumin Lymph Enumerat CD4/CD8 % CD3 Cells Absolute CD3 Count % CD4 Cells Absolute CD4 Count % CD8 Cells Absolute CD8 Count % CD19 Cells Absolute CD19 Count HIV-1 RNA PCR copies/ml HIV-1 RNA (PCR) log Miscellaneous Test Crossmatch See Detail 07/18/18 07/18/18 07/18/18 04:54 05:02 12:59 RBC Hgb Hct RDW Lymph % (Auto) Lymph # Seg Neutrophils % Abs Lymphs (Manual) D-Dimer POC ABG pH 7.615 H POC ABG pCO2 32.6 L 48.8 H POC ABG pO2 79 L 118 H Sodium Potassium Chloride Carbon Dioxide Creatinine Glucose POC Glucose 164 H Calcium Lactate Dehydrogenase C-Reactive Protein Albumin Lymph Enumerat CD4/CD8 % CD3 Cells Absolute CD3 Count % CD4 Cells Absolute CD4 Count % CD8 Cells Absolute CD8 Count % CD19 Cells Absolute CD19 Count HIV-1 RNA PCR copies/ml HIV-1 RNA (PCR) log Miscellaneous Test Crossmatch 07/18/18 07/18/18 07/19/18 18:25 20:39 03:53 RBC Hgb Hct RDW Lymph % (Auto) Lymph # Seg Neutrophils % Abs Lymphs (Manual) D-Dimer POC ABG pH 7.339 L POC ABG pCO2 59.9 H 65.0 H POC ABG pO2 69 L Sodium Potassium Chloride Carbon Dioxide Creatinine Glucose POC Glucose 155 H Calcium Lactate Dehydrogenase C-Reactive Protein Albumin Lymph Enumerat CD4/CD8 % CD3 Cells Absolute CD3 Count % CD4 Cells Absolute CD4 Count % CD8 Cells Absolute CD8 Count % CD19 Cells Absolute CD19 Count HIV-1 RNA PCR copies/ml HIV-1 RNA (PCR) log Miscellaneous Test Crossmatch 07/19/18 07/19/18 07/19/18 08:10 08:10 10:52 RBC 2.51 L Hgb 7.4 L Hct 22.0 L RDW 15.5 H Lymph % (Auto) Lymph # Seg Neutrophils % Abs Lymphs (Manual) D-Dimer POC ABG pH POC ABG pCO2 POC ABG pO2 Sodium 130 L Potassium Chloride 89.0 L Carbon Dioxide 33 H Creatinine 0.4 L Glucose 150 H POC Glucose 173 H Calcium 7.5 L Lactate Dehydrogenase C-Reactive Protein Albumin Lymph Enumerat CD4/CD8 % CD3 Cells Absolute CD3 Count % CD4 Cells Absolute CD4 Count % CD8 Cells Absolute CD8 Count % CD19 Cells Absolute CD19 Count HIV-1 RNA PCR copies/ml HIV-1 RNA (PCR) log Miscellaneous Test Crossmatch 07/19/18 07/19/18 07/20/18 17:06 23:47 04:37 RBC Hgb Hct RDW Lymph % (Auto) Lymph # Seg Neutrophils % Abs Lymphs (Manual) D-Dimer POC ABG pH POC ABG pCO2 58.5 H POC ABG pO2 67 L Sodium Potassium Chloride Carbon Dioxide Creatinine Glucose POC Glucose 117 H 114 H Calcium Lactate Dehydrogenase C-Reactive Protein Albumin Lymph Enumerat CD4/CD8 % CD3 Cells Absolute CD3 Count % CD4 Cells Absolute CD4 Count % CD8 Cells Absolute CD8 Count % CD19 Cells Absolute CD19 Count HIV-1 RNA PCR copies/ml HIV-1 RNA (PCR) log Miscellaneous Test Crossmatch 07/20/18 07/20/18 07/21/18 06:20 06:20 04:18 RBC 2.69 L Hgb 7.8 L Hct 23.6 L RDW 15.5 H Lymph % (Auto) Lymph # Seg Neutrophils % Abs Lymphs (Manual) D-Dimer POC ABG pH 7.456 H POC ABG pCO2 60.4 H POC ABG pO2 64 L Sodium 134 L Potassium Chloride 89.2 L Carbon Dioxide 38 H Creatinine 0.7 L D Glucose 120 H POC Glucose Calcium 7.6 L Lactate Dehydrogenase C-Reactive Protein Albumin Lymph Enumerat CD4/CD8 % CD3 Cells Absolute CD3 Count % CD4 Cells Absolute CD4 Count % CD8 Cells Absolute CD8 Count % CD19 Cells Absolute CD19 Count HIV-1 RNA PCR copies/ml HIV-1 RNA (PCR) log Miscellaneous Test Crossmatch 07/21/18 07/21/18 07/22/18 04:35 04:35 04:16 RBC 2.62 L 2.37 L Hgb 7.7 L 7.0 L Hct 23.1 L 21.1 L RDW 15.4 H Lymph % (Auto) Lymph # Seg Neutrophils % Abs Lymphs (Manual) D-Dimer POC ABG pH POC ABG pCO2 POC ABG pO2 Sodium 129 L Potassium 5.3 H Chloride 85.3 L Carbon Dioxide 38 H Creatinine 0.4 L Glucose 108 H POC Glucose Calcium 8.0 L Lactate Dehydrogenase C-Reactive Protein Albumin Lymph Enumerat CD4/CD8 % CD3 Cells Absolute CD3 Count % CD4 Cells Absolute CD4 Count % CD8 Cells Absolute CD8 Count % CD19 Cells Absolute CD19 Count HIV-1 RNA PCR copies/ml HIV-1 RNA (PCR) log Miscellaneous Test Crossmatch 07/22/18 04:16 RBC Hgb Hct RDW Lymph % (Auto) Lymph # Seg Neutrophils % Abs Lymphs (Manual) D-Dimer POC ABG pH POC ABG pCO2 POC ABG pO2 Sodium 132 L Potassium 5.4 H Chloride 87.4 L Carbon Dioxide 38 H Creatinine 0.4 L Glucose 117 H POC Glucose Calcium 7.5 L Lactate Dehydrogenase C-Reactive Protein Albumin Lymph Enumerat CD4/CD8 % CD3 Cells Absolute CD3 Count % CD4 Cells Absolute CD4 Count % CD8 Cells Absolute CD8 Count % CD19 Cells Absolute CD19 Count HIV-1 RNA PCR copies/ml HIV-1 RNA (PCR) log Miscellaneous Test Crossmatch Allied health notes reviewed: nursing
[2018-07-23] MEDS: fentaNYL DRIP Premix 2,000 MCG/100 ML BAG IV SCH ×3 (02:03→18:03)
[2018-07-23] MEDS: BACTRIM 300 MG in D5W 500 ML IV SCH ×4 (05:22→23:55)
[2018-07-23] MEDS: SOLU-Medrol IV SCH ×3 (05:22→22:03)
--- NOTE | 2018-07-23 07:09 | Progress Note ---
Assessment and Plan Assessment and plan: Patient is a 37 yo man with a history of HIV and tobacco dependency who presents from [facility] to [facility] ED with sob and cough. Pt admitted to [facility] and initiated on Pneumonia protocol. In the ED, temp 99.8, HR 104, R 29, O2 sat 77%, BP 94/50. WBC 6.1, Hg 9.6, Plat 398. Creat 0.6. Blood culture 07/11/2018 no growth today. Sputum culture 07/11/2018 no growth today. Chest CT showed bilateral patchy and somewhat confluent alveolar infiltrates and interstitial infiltrates. No effusions. Mild cardiomegaly. Patient required emergent intubation following admission to the [facility]. Patient unfortunately has remained on full ventilatory support and very resistant hypoxia currently on high level FIO2.Patient unfortunately has remained on full ventilatory support and very resistant hypoxia currently on high level FIO2. * CT head: No CT evidence of acute intracranial abnormality. Pansinus disease * CTA CHEST: IMPRESSION: No pulmonary embolus. Bilateral patchy and somewhat confluent alveolar infiltrates and interstitial infiltrates. Noeffusions. Mild cardiomegaly. Runnings likely reflect a viral pneumonia or inhalational process * CXR IMPRESSION: Heart size is normal.There are bilateral lower lobe infiltrates. These are slightly worse than the prior study.. There is no pleural effusion or pneumothorax. Endotracheal tube is in the mid trachea. NG tube is in the stomach. There is a right-sided PICC line. The tip is in the superior vena cava.. 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 Severe Protein Malnutrition: [employer] to follow AIDS with history of noncompliance: ID following AOCD: monitor cbc closely Elevated d/DIMER- NO PE noted on CTA chest Restraint renewed From [facility], no NOK/family listed, Case management to find NOK; this week start to consider trach/peg poor prognosis CCT 33 minutes History Interval history: Patient was seen and examined. Follow-up on current diagnosis of respiratory failure, still intubated and sedated. No overnight events reported to me. Imaging, nursing note, chart, labs and old chart reviewed. D/W nurse Hospitalist Physical - Physical exam Narrative exam: Gen: thin, critically ill, intubated and sedated HEENT: NCAT, EOMI, PERRL, OP ETT and NGT in place Neck: supple, no JVD CVS/Heart: Regular tachycardia, normal S1S2, pulses present bilaterally Chest/Lungs: tachypenic, diminished bs bilateral, Symmetrical chest expansion, good air entry bilaterally GI/Abdomen: soft, good bowel sounds, no guarding or rebound /Bladder: no suprapubic tenderness, Extermity/Skin: poor skin tone MSK: sedated Neuro: sedated Psych:sedated - Constitutional Vitals: Temp Pulse Resp BP Pulse Ox 97.8 F 119 H 30 H 144/93 94 07/23/18 04:00 07/23/18 06:30 07/23/18 06:30 07/23/18 06:30 07/23/18 06:30 General appearance: Present: cachectic, disheveled. Absent: mild distress Results - Labs CBC & Chem 7: 07/22/18 04:16 07/22/18 04:16 Labs: Laboratory Last Values WBC 6.8 K/mm3 (4.5-11.0) 07/22/18 04:16 RBC 2.37 M/mm3 (3.65-5.03) L 07/22/18 04:16 Hgb 7.0 gm/dl (11.8-15.2) L 07/22/18 04:16 Hct 21.1 % (35.5-45.6) L 07/22/18 04:16 MCV 89 fl (84-94) 07/22/18 04:16 MCH 29 pg (28-32) 07/22/18 04:16 MCHC 33 % (32-34) 07/22/18 04:16 RDW 15.0 % (13.2-15.2) 07/22/18 04:16 Plt Count 289 K/mm3 (140-440) 07/22/18 04:16 Lymph % (Auto) 7.2 % (13.4-35.0) L 07/18/18 01:10 Rush % (Auto) 2.8 % (0.0-7.3) 07/18/18 01:10 Eos % (Auto) 0.0 % (0.0-4.3) 07/18/18 01:10 Baso % (Auto) 0.1 % (0.0-1.8) 07/18/18 01:10 Lymph # 0.5 K/mm3 (1.2-5.4) L 07/18/18 01:10 Rush # 0.2 K/mm3 (0.0-0.8) 07/18/18 01:10 Eos # 0.0 K/mm3 (0.0-0.4) 07/18/18 01:10 Baso # 0.0 K/mm3 (0.0-0.1) 07/18/18 01:10 Seg Neutrophils % 89.9 % (40.0-70.0) H 07/18/18 01:10 Seg Neutrophils # 6.3 K/mm3 (1.8-7.7) 07/18/18 01:10 Abs Lymphs (Manual) 220 cells/uL (850-3900) L 07/12/18 19:29 1298.70 ng/mlDDU (0-234) H 07/11/18 15:04 POC ABG pH 7.396 (7.35-7.45) 07/23/18 03:25 POC ABG pCO2 69.4 (35-45) H 07/23/18 03:25 POC ABG pO2 95 (80-105) 07/23/18 03:25 POC ABG HCO3 42.6 (22-26 mml/L) 07/23/18 03:25 POC ABG Total CO2 45 (23-27mmol/L) 07/23/18 03:25 POC ABG O2 Sat 97 07/23/18 03:25 POC ABG Base Excess 18 ((-2) - (+3)mmol/L) 07/23/18 03:25 55 % 07/23/18 03:25 Sodium 132 mmol/L (137-145) L 07/22/18 04:16 Potassium 5.4 mmol/L (3.6-5.0) H 07/22/18 04:16 Chloride 87.4 mmol/L (98-107) L 07/22/18 04:16 Carbon Dioxide 38 mmol/L (22-30) H 07/22/18 04:16 12 mmol/L 07/22/18 04:16 BUN 15 mg/dL (9-20) 07/22/18 04:16 0.4 mg/dL (0.8-1.5) L 07/22/18 04:16 Estimated GFR > 60 ml/min 07/22/18 04:16 38 % 07/22/18 04:16 Glucose 117 mg/dL (75-100) H 07/22/18 04:16 POC Glucose 101 (70-105) 07/20/18 05:10 Lactic Acid 1.80 mmol/L (0.7-2.0) 07/11/18 21:01 Calcium 7.5 mg/dL (8.4-10.2) L 07/22/18 04:16 0.20 mg/dL (0.1-1.2) 07/11/18 14:06 AST 30 units/L (5-40) 07/11/18 14:06 ALT 11 units/L (7-56) 07/11/18 14:06 50 units/L (35-129) 07/11/18 14:06 731 units/L (91-180) H 07/12/18 19:29 < 0.010 ng/mL (0.00-0.029) 07/11/18 15:04 2.70 mg/dL (0.00-1.30) H 07/15/18 14:09 NT-Pro-B Natriuret Pep 249.7 pg/mL (0-450) 07/11/18 15:04 6.3 g/dL (6.3-8.2) 07/11/18 14:06 2.1 g/dL (3.9-5) L 07/11/18 14:06 0.5 % 07/11/18 14:06 Triglycerides 148 mg/dL (2-149) 07/17/18 05:00 Yellow (Yellow) 07/15/18 14:14 Clear (Clear) 07/15/18 14:14 6.0 (5.0-7.0) 07/15/18 14:14 Ur Specific Morris 1.015 (1.003-1.030) 07/15/18 14:14 30 mg/dl mg/dL (Negative) 07/15/18 14:14 Neg mg/dL (Negative) 07/15/18 14:14 Neg mg/dL (Negative) 07/15/18 14:14 Neg (Negative) 07/15/18 14:14 Neg (Negative) 07/15/18 14:14 Neg (Negative) 07/15/18 14:14 < 2.0 mg/dL (<2.0) 07/15/18 14:14 Ur Leukocyte Esterase Neg (Negative) 07/15/18 14:14 2.0 /HPF (0.0-6.0) 07/15/18 14:14 6.0 /HPF (0.0-6.0) 07/15/18 14:14 21 mmol/L 07/19/18 14:27 Lymph Enumerat CD4/CD8 0.04 (0.86-5.00) L 07/12/18 19:29 % CD3 Cells 88 % (57-85) H 07/12/18 19:29 194 cells/uL (840-3060) L 07/12/18 19:29 % CD4 Cells 3 % (30-61) L 07/12/18 19:29 7 cells/uL (490-1740) L 07/12/18 19:29 % CD8 Cells 75 % (12-42) H 07/12/18 19:29 177 cells/uL (180-1170) L 07/12/18 19:29 % CD19 Cells 4 % (6-29) L 07/12/18 19:29 9 cells/uL (110-660) L 07/12/18 19:29 RPR Nonreactive (Nonreactive) 07/12/18 23:38 CMV DNA PCR log marketing copywriter/mL See scanned result 07/15/18 14:09 Hepatitis A IgM Ab Non-reactive (NonReactive) 07/12/18 23:38 Hep Bs Antigen Non-reactive (Negative) 07/12/18 23:38 Hep B Core IgM Ab Non-reactive (NonReactive) 07/12/18 23:38 Non-reactive (NonReactive) 07/12/18 23:38 HIV-1 RNA PCR copies/ml [id number] Copies/mL H 07/12/18 19:29 5.72 Log cps/mL H 07/12/18 19:29 Flexitest 1 H 07/16/18 07:21 Blood Type O POSITIVE 07/18/18 03:10 Antibody Screen Positive 07/18/18 03:10 Prewarmed Antibody Srcn Positive 07/18/18 03:10 Antibody Identification Anti-Adrianna 07/18/18 03:10 Direct Antiglob Test Negative 07/18/18 03:10 NIKUNJ, Poly Interpret Negative 07/18/18 03:10 Crossmatch See Detail 07/18/18 03:10 Active Medications - Current Medications Current Medications: Generic Name Dose Route Start Last Admin Trade Name Freq PRN Reason Stop Dose Admin Acetaminophen 650 mg 07/12/18 18:07 07/21/18 19:30 Tylenol FEEDTUBE 650 mg Q6H PRN Administration Non Cardiac Pain or Temp>100.5 Albuterol 2.5 mg 07/11/18 17:16 Proventil IH Q3HRT PRN Shortness Of Breath Lipase/Protease/Amylase 1 each 07/13/18 12:[address] 10,500 Unit FEEDTUBE PRN PRN For Clogged Feeding Tube Docusate Sodium 100 mg 07/15/18 12:00 07/22/18 22:00 Colace PO 100 mg BID HE Administration Doxazosin Mesylate 2 mg 07/18/18 12:00 07/22/18 10:05 Cardura PO 2 mg QDAY HE Administration Famotidine 20 mg 07/16/18 22:00 07/22/18 22:00 Pepcid PO 20 mg BID HE Administration Fentanyl 50 mcg 07/12/18 00:26 07/20/18 09:02 Sublimaze IV 50 mcg Q10MIN PRN Administration ANALGESIA Heparin Sodium (Porcine) 5,000 unit 07/20/18 10:00 07/22/18 22:00 Heparin SUB-Q 07/23/18 09:59 5,000 unit BID HE Administration Hydrophilic Ointment 1 applic 07/12/18 13:30 Vaseline Lip Therapy TP Q2HR PRN Dry Lips Fentanyl Citrate 2,000 mcg in 100 mls @ 3.065 mls/hr 07/12/18 01:00 07/23/18 02:03 Fentanyl Drip Premix IV 4 mcg/kg/hr TITR HE 12.26 mls/hr Administration Protocol 1 MCG/KG/HR Propofol 1,000 mg in 100 mls @ 1.839 mls/hr 07/12/18 01:00 07/22/18 18:29 Diprivan 10 Mg/Ml IV Infused TITR HE Titration Protocol 5 MCG/KG/MIN Dopamine HCl/Dextrose 800 mg in 250 mls @ 2.299 mls/hr 07/12/18 22:00 07/15/18 14:28 Intropin Drip 800 Mg/D5w 250 Ml IV 0 mcg/kg/min TITR HE 0 mls/hr Titration Protocol 2 MCG/KG/MIN Linezolid 600 mg in 300 mls @ 300 mls/hr 07/15/18 14:00 07/22/18 21:59 Zyvox 600mg/300ml IV 300 mls/hr Q12HR HE Administration Protocol Midazolam HCl 100 mg/ Sodium 100 mls @ 2 mls/hr 07/18/18 13:30 07/22/18 17:27 Chloride IV 5 mg/hr TITR HE 5 mls/hr Titration Protocol 2 MG/HR Trimethoprim/Sulfamethoxazole 518.75 mls @ 350 mls/hr 07/22/18 00:00 07/23/18 05:22 300 mg/ Dextrose IV 350 mls/hr Q6HR HE Administration Protocol Methylprednisolone Sodium Succinate 40 mg 07/16/18 14:00 07/23/18 05:22 Solu-Medrol IV 40 mg Q8HR HE Administration Midazolam HCl 2 mg 07/16/18 13:06 07/18/18 13:32 Versed IV 2 mg Q2H PRN Administration AGITATION Midazolam HCl 2 mg 07/18/18 12:44 Versed IV Q10MIN PRN Sedation Multi-Ingred Cream/Lotion/Oil/Oint 1 applic 07/12/18 13:30 Artificial Tears Ophth Oint OU Q4HR PRN Dry Eye(s) Quetiapine Fumarate 200 mg 07/22/18 22:00 07/22/18 21:59 Seroquel PO 200 mg BID HE Administration Quetiapine Fumarate 50 mg 07/22/18 22:00 07/22/18 22:00 Seroquel PO 50 mg BID HE Administration Simple Syrup 15 ml 07/13/18 12:30 Simple Syrup FEEDTUBE PRN PRN Hypoglycemia Simple Syrup 30 ml 07/13/18 12:30 Simple Syrup FEEDTUBE PRN PRN Hypoglycemia Sodium Bicarbonate 325 mg 07/13/18 12:30 Sodium Bicarbonate FEEDTUBE PRN PRN For Clogged Feeding Tube Sodium Chloride 10 ml 07/11/18 22:00 07/22/18 22:01 Sodium Chloride Flush Syringe 10 Ml IV 10 ml BID HE Administration Sodium Chloride 10 ml 07/11/18 17:16 07/18/18 09:00 Sodium Chloride Flush Syringe 10 Ml IV 10 ml PRN PRN Administration LINE FLUSH Nutrition/Malnutrition Assess - Dietary Evaluation Nutrition/Malnutrition Findings: Nutrition Notes Start: 07/12/18 09:38 Freq: Status: Active Protocol: Document 07/16/18 15:54 RM (Rec: 07/16/18 16:00 RM [id number]) Nutrition Notes Initial or Follow up Reassessment Other Pertinent Diagnosis HIV/AIDS, SOB, weakness, nicotine dependence, PCP, hyponatremia syndrome Current Diet Vital 1.2 at 65 ml/hr Labs/Tests Reviewed Pertinent Medications Solu-medrol Diprivan Height 5 ft 11 in Weight 66.7 kg [place] Body Weight (kg) 78.18 BMI 20.5 Weight change and time frame Current wt obtained from scale Subjective/Other Information Observed Vital 1.2 infusing at 65 ml/hr. Per nurse pt is tolerating TF. Percent of energy/protein needs met: 96%/100% Burn Absent Trauma Absent #2 Nutrition Diagnosis Inadequate oral intake Diagnosis Progress(for reassessment Continues documentation) #1 Nutrition Diagnosis Malnutrition Diagnosis Progress(for reassessment Continues documentation) Is patient on ventilator? Yes Is Patient Ambulatory and/or Out of Bed No REE-([facility]-confined to bed) 7287.048 Calculation Used for Recommendations [facility] Additional Notes Protein: 74- 92 g (1.2-1.5 g/ kg) Fluid: 1 ml/kcal Nutrition Intervention Nutrition Support: Vital 1.2 at 65 mL/hr Flush 100 mL q 4 hr Kcal 1,872 Protein (gm) 117 Carbohydrates (gm) 173 Fat (gm) 84 Fluid (mL) 1,265 Fiber (gm) 8 Goal #1 TF tolerance Goal #2 TF to meet at least 80% of [place] and pro needs Anticipated Discharge Needs: Unable to determine at this time Follow-Up By: 07/23/18 Additional Comments Follow for TF tolerance
--- NOTE | 2018-07-23 10:03 | Progress Note ---
Assessment and Plan Acute Hypoxic respiratory failure on mechanical ventilation Severe sepsis with septic shock Severe ARDS Sepsis present on admission with grater than 2 SOFA criteria PJP (pneumocystis jiroveci pneumonia) Diarrhea Hyponatermia Syndrome Hyperkalemia Moderate Protein Malnutrition AIDS ANEMIA Elevated d/DIMER- NO PE noted Nicotine dependance/Tobacco use disorder -Get BMP to evaluate hyperkalemia, and mild hyponatremia Will start NSaline at 50ml for 1Liter, if any hyperkalemia based on labs from today, will manage medically -Titrate sedation to RASS of 0 to -1 -VAP bundle addressed - Continue lung protective strategies per ARDS net protocol -Permissive hypercapnia is acceptable - Antibiotics, anti-infectives per ID service. -ART per ID service, Antibiotic prophylaxis for OI per ID - Continue bronchodilators with pulmonary hygiene per RT - Continue full MVS -Daily CXR and ABG for now -Wean FIO2 for O2 sats>90% - Monitor renal indices closely - Avoid nephrotoxic agents - Strict intake and output monitoring - Tube feedings, on Vital AF at 65ml/hour - Aspiration precautions. HOB >40 -Stress ulcer prophylaxis -VTE prophylaxis - Accuchecks with glycemic control. Target glucose of 140-180 mg/dL -Can stop accuchecks if glucose levels have been within range for 48 hours -Supportive transfusions as indicated for HgB<7g/dL - Maintenance of sleep -wake cycle - Mobility as tolerated by hemodynamics - Influenza and pneumonia vaccination per protocol ..care plan discussed at length with RN/RT at the bedside -Discussed in ICU-IDT rounds -Discussed with ID at the bedside The high probability of a clinically significant, sudden or life threatening deterioration of the [pulmonary, cardiovascular] system(s) required my full and direct attention, intervention and personal management. The aggregate critical care time was [35] minutes. This time is in addition to time spent performing reported procedures but includes the following: [x] Data Review and interpretation [x] Patient assessment and monitoring of vital signs [x] Documentation [x] Medication orders and management Subjective Date of service: 07/23/18 Principal diagnosis: Acute hypoxemic resp failure; Bilateral pneumonia (PJP); HIV/AIDS Interval history: Patient is seen today for: Acute hypoxemic respiratory failure, on mechanical ventilatory support; Bilateral pneumonia, high suspicion for Pneumocystis jirov eci pneumonia; Human immunodeficiency virus/acquired immunodeficiency syndrome,noncompliant with therapy; Hyponatremia; Severe protein calorie malnutrition. Seen and examined at bedside; 24-hour events reviewed; nursing and respiratory care staff consulted; no adverse overnight events reported to me; remains critically ill with high ventilatory demands and on critical drips. Awake and alert, attempting to vocalize. Seroquel was increased yesterday. Continues to require propofol, fentanyl and midazolam at maximal dose, yet RASS is at 1. No fevers, tolerating tube feedings Objective Vital Signs - 12hr 07/22/18 07/22/18 07/22/18 22:30 22:34 23:00 Temperature Pulse Rate 117 H 116 H 114 H Pulse Rate [ From Monitor] Respiratory 30 H 30 H 30 H Rate Blood Pressure 108/69 119/73 101/65 O2 Sat by Pulse 97 97 97 Oximetry 07/22/18 07/22/18 07/23/18 23:19 23:30 00:00 Temperature 97.5 F L Pulse Rate 114 H 113 H 114 H Pulse Rate [ 114 H From Monitor] Respiratory 30 H 23 Rate Blood Pressure 101/65 107/66 107/66 O2 Sat by Pulse 98 97 98 Oximetry 07/23/18 07/23/18 07/23/18 00:30 01:00 01:30 Temperature Pulse Rate 112 H 107 H 118 H Pulse Rate [ From Monitor] Respiratory 29 H 30 H 23 Rate Blood Pressure 113/70 117/71 117/77 O2 Sat by Pulse 96 97 97 Oximetry 07/23/18 07/23/18 07/23/18 02:00 02:30 03:00 Temperature Pulse Rate 126 H 113 H 121 H Pulse Rate [ From Monitor] Respiratory 14 28 H 17 Rate Blood Pressure 125/83 115/78 138/86 O2 Sat by Pulse 96 95 99 Oximetry 07/23/18 07/23/18 07/23/18 03:13 03:30 04:00 Temperature 97.8 F Pulse Rate 105 H 120 H 115 H Pulse Rate [ 108 H From Monitor] Respiratory 30 H 30 H Rate Blood Pressure 136/86 152/97 132/78 O2 Sat by Pulse 98 98 97 Oximetry 07/23/18 07/23/18 07/23/18 04:30 05:00 05:30 Temperature Pulse Rate 102 H 100 H 108 H Pulse Rate [ From Monitor] Respiratory 21 17 28 H Rate Blood Pressure 129/79 126/87 140/86 O2 Sat by Pulse 97 97 97 Oximetry 07/23/18 07/23/18 07/23/18 06:00 06:30 07:00 Temperature Pulse Rate 117 H 119 H 124 H Pulse Rate [ From Monitor] Respiratory 32 H 30 H 41 H Rate Blood Pressure 132/93 144/93 145/85 O2 Sat by Pulse 95 94 95 Oximetry 07/23/18 07/23/18 07/23/18 07:30 08:00 08:30 Temperature 97.6 F Pulse Rate 119 H 118 H 116 H Pulse Rate [ 88 From Monitor] Respiratory 36 H 43 H 44 H Rate Blood Pressure 159/91 154/85 169/107 O2 Sat by Pulse 96 95 95 Oximetry 07/23/18 07/23/18 08:50 09:00 Temperature Pulse Rate 122 H 116 H Pulse Rate [ From Monitor] Respiratory 21 Rate Blood Pressure 169/107 159/101 O2 Sat by Pulse 95 93 Oximetry Constitutional: appears uncomfortable, other (young AAM; normocephalic and atraumatic) Eyes: non-icteric ENT: oropharynx moist, other (ETT 23 cm SHONA) Neck: supple, no lymphadenopathy, no JVD Effort: mildly labored Ascultation: Bilateral: diminished breath sounds, rales Percussion: Bilateral: not dull Cardiovascular: regular rate and rhythm Gastrointestinal: normoactive bowel sounds, soft, non-tender, non-distended Integumentary: normal Extremities: no cyanosis, no edema, pulses normal, no ischemia or petechiae Neurologic: normal mental status, non-focal exam, pupils equal and round, CN II- XII normal, motor strength normal and Psychiatric: other (sedated) CBC and BMP: 07/22/18 04:16 07/22/18 04:16 ABG, PT/INR, D-dimer: ABG POC ABG pH 7.396 (7.35-7.45) 07/23/18 03:25 POC ABG pCO2 69.4 (35-45) H 07/23/18 03:25 POC ABG pO2 95 (80-105) 07/23/18 03:25 POC ABG HCO3 42.6 (22-26 mml/L) 07/23/18 03:25 POC ABG Total CO2 45 (23-27mmol/L) 07/23/18 03:25 POC ABG O2 Sat 97 07/23/18 03:25 PT/INR, D-dimer 1298.70 ng/mlDDU (0-234) H 07/11/18 15:04 Abnormal lab findings: Abnormal Labs 07/11/18 07/11/18 07/11/18 14:06 14:06 15:04 RBC 3.30 L Hgb 9.6 L Hct 28.7 L RDW Lymph % (Auto) Lymph # Seg Neutrophils % Abs Lymphs (Manual) D-Dimer 1298.70 H POC ABG pH POC ABG pCO2 POC ABG pO2 Sodium 132 L Potassium Chloride Carbon Dioxide Creatinine 0.6 L Glucose 103 H POC Glucose Calcium 7.3 L Lactate Dehydrogenase C-Reactive Protein Albumin 2.1 L Lymph Enumerat CD4/CD8 % CD3 Cells Absolute CD3 Count % CD4 Cells Absolute CD4 Count % CD8 Cells Absolute CD8 Count % CD19 Cells Absolute CD19 Count HIV-1 RNA PCR copies/ml HIV-1 RNA (PCR) log Miscellaneous Test Crossmatch 07/11/18 07/11/18 07/12/18 17:36 22:15 00:25 RBC Hgb Hct RDW Lymph % (Auto) Lymph # Seg Neutrophils % Abs Lymphs (Manual) D-Dimer POC ABG pH 7.289 L POC ABG pCO2 POC ABG pO2 66 L Sodium Potassium Chloride Carbon Dioxide Creatinine Glucose POC Glucose Calcium Lactate Dehydrogenase 591 H C-Reactive Protein Albumin Lymph Enumerat CD4/CD8 % CD3 Cells Absolute CD3 Count % CD4 Cells Absolute CD4 Count % CD8 Cells Absolute CD8 Count % CD19 Cells Absolute CD19 Count HIV-1 RNA PCR copies/ml HIV-1 RNA (PCR) log Miscellaneous Test see below H Crossmatch 07/12/18 07/12/18 07/12/18 00:41 05:37 19:29 RBC Hgb Hct RDW Lymph % (Auto) Lymph # Seg Neutrophils % Abs Lymphs (Manual) D-Dimer POC ABG pH 7.302 L 7.275 L POC ABG pCO2 47.1 H POC ABG pO2 Sodium Potassium Chloride Carbon Dioxide Creatinine Glucose POC Glucose Calcium Lactate Dehydrogenase 731 H C-Reactive Protein Albumin Lymph Enumerat CD4/CD8 % CD3 Cells Absolute CD3 Count % CD4 Cells Absolute CD4 Count % CD8 Cells Absolute CD8 Count % CD19 Cells Absolute CD19 Count HIV-1 RNA PCR copies/ml HIV-1 RNA (PCR) log Miscellaneous Test Crossmatch 07/12/18 07/12/18 07/13/18 19:29 19:29 04:03 RBC Hgb Hct RDW Lymph % (Auto) Lymph # Seg Neutrophils % Abs Lymphs (Manual) 220 L D-Dimer POC ABG pH 7.254 L POC ABG pCO2 49.2 H POC ABG pO2 Sodium Potassium Chloride Carbon Dioxide Creatinine Glucose POC Glucose Calcium Lactate Dehydrogenase C-Reactive Protein Albumin Lymph Enumerat CD4/CD8 0.04 L % CD3 Cells 88 H Absolute CD3 Count 194 L % CD4 Cells 3 L Absolute CD4 Count 7 L % CD8 Cells 75 H Absolute CD8 Count 177 L % CD19 Cells 4 L Absolute CD19 Count 9 L HIV-1 RNA PCR copies/ml 012894 H HIV-1 RNA (PCR) log 5.72 H Miscellaneous Test Crossmatch 07/13/18 07/13/18 07/13/18 05:46 12:23 18:31 RBC Hgb Hct RDW Lymph % (Auto) Lymph # Seg Neutrophils % Abs Lymphs (Manual) D-Dimer POC ABG pH POC ABG pCO2 POC ABG pO2 Sodium Potassium Chloride Carbon Dioxide Creatinine Glucose POC Glucose 68 L 106 H 112 H Calcium Lactate Dehydrogenase C-Reactive Protein Albumin Lymph Enumerat CD4/CD8 % CD3 Cells Absolute CD3 Count % CD4 Cells Absolute CD4 Count % CD8 Cells Absolute CD8 Count % CD19 Cells Absolute CD19 Count HIV-1 RNA PCR copies/ml HIV-1 RNA (PCR) log Miscellaneous Test Crossmatch 07/14/18 07/14/18 07/14/18 04:19 05:36 05:36 RBC 2.99 L Hgb 8.8 L Hct 25.7 L RDW 15.5 H Lymph % (Auto) Lymph # Seg Neutrophils % Abs Lymphs (Manual) D-Dimer POC ABG pH 7.337 L POC ABG pCO2 POC ABG pO2 Sodium 135 L Potassium Chloride Carbon Dioxide 21 L Creatinine 0.7 L Glucose 123 H POC Glucose Calcium 8.2 L Lactate Dehydrogenase C-Reactive Protein Albumin Lymph Enumerat CD4/CD8 % CD3 Cells Absolute CD3 Count % CD4 Cells Absolute CD4 Count % CD8 Cells Absolute CD8 Count % CD19 Cells Absolute CD19 Count HIV-1 RNA PCR copies/ml HIV-1 RNA (PCR) log Miscellaneous Test Crossmatch 07/14/18 07/14/18 07/14/18 12:14 14:33 17:18 RBC Hgb Hct RDW Lymph % (Auto) Lymph # Seg Neutrophils % Abs Lymphs (Manual) D-Dimer POC ABG pH 7.325 L POC ABG pCO2 POC ABG pO2 75 L Sodium Potassium Chloride Carbon Dioxide Creatinine Glucose POC Glucose 174 H 114 H Calcium Lactate Dehydrogenase C-Reactive Protein Albumin Lymph Enumerat CD4/CD8 % CD3 Cells Absolute CD3 Count % CD4 Cells Absolute CD4 Count % CD8 Cells Absolute CD8 Count % CD19 Cells Absolute CD19 Count HIV-1 RNA PCR copies/ml HIV-1 RNA (PCR) log Miscellaneous Test Crossmatch 07/15/18 07/15/18 07/15/18 00:17 12:29 12:29 RBC 2.64 L Hgb 7.5 L Hct 22.9 L RDW 15.4 H Lymph % (Auto) 7.0 L Lymph # 0.4 L Seg Neutrophils % 89.6 H Abs Lymphs (Manual) D-Dimer POC ABG pH POC ABG pCO2 POC ABG pO2 Sodium Potassium Chloride Carbon Dioxide Creatinine 0.6 L Glucose 124 H POC Glucose 113 H Calcium 7.3 L Lactate Dehydrogenase C-Reactive Protein Albumin Lymph Enumerat CD4/CD8 % CD3 Cells Absolute CD3 Count % CD4 Cells Absolute CD4 Count % CD8 Cells Absolute CD8 Count % CD19 Cells Absolute CD19 Count HIV-1 RNA PCR copies/ml HIV-1 RNA (PCR) log Miscellaneous Test Crossmatch 07/15/18 07/16/18 07/16/18 14:09 04:46 07:21 RBC Hgb Hct RDW Lymph % (Auto) Lymph # Seg Neutrophils % Abs Lymphs (Manual) D-Dimer POC ABG pH 7.282 L POC ABG pCO2 52.6 H POC ABG pO2 63 L Sodium Potassium Chloride Carbon Dioxide Creatinine Glucose POC Glucose Calcium Lactate Dehydrogenase C-Reactive Protein 2.70 H Albumin Lymph Enumerat CD4/CD8 % CD3 Cells Absolute CD3 Count % CD4 Cells Absolute CD4 Count % CD8 Cells Absolute CD8 Count % CD19 Cells Absolute CD19 Count HIV-1 RNA PCR copies/ml HIV-1 RNA (PCR) log Miscellaneous Test Flexitest 1 H Crossmatch 07/16/18 07/16/18 07/16/18 07:21 07:21 16:16 RBC 2.48 L Hgb 7.2 L Hct 21.5 L RDW 15.7 H Lymph % (Auto) Lymph # Seg Neutrophils % Abs Lymphs (Manual) D-Dimer POC ABG pH 7.251 L POC ABG pCO2 62.2 H POC ABG pO2 Sodium 136 L Potassium Chloride Carbon Dioxide Creatinine 0.6 L Glucose 118 H POC Glucose Calcium 7.5 L Lactate Dehydrogenase C-Reactive Protein Albumin Lymph Enumerat CD4/CD8 % CD3 Cells Absolute CD3 Count % CD4 Cells Absolute CD4 Count % CD8 Cells Absolute CD8 Count % CD19 Cells Absolute CD19 Count HIV-1 RNA PCR copies/ml HIV-1 RNA (PCR) log Miscellaneous Test Crossmatch 07/17/18 07/18/18 07/18/18 04:01 01:10 03:10 RBC 2.20 L Hgb 6.5 L Hct 19.2 L* RDW 16.0 H Lymph % (Auto) 7.2 L Lymph # 0.5 L Seg Neutrophils % 89.9 H Abs Lymphs (Manual) D-Dimer POC ABG pH 7.245 L POC ABG pCO2 63.8 H POC ABG pO2 75 L Sodium Potassium Chloride Carbon Dioxide Creatinine Glucose POC Glucose Calcium Lactate Dehydrogenase C-Reactive Protein Albumin Lymph Enumerat CD4/CD8 % CD3 Cells Absolute CD3 Count % CD4 Cells Absolute CD4 Count % CD8 Cells Absolute CD8 Count % CD19 Cells Absolute CD19 Count HIV-1 RNA PCR copies/ml HIV-1 RNA (PCR) log Miscellaneous Test Crossmatch See Detail 07/18/18 07/18/18 07/18/18 04:54 05:02 12:59 RBC Hgb Hct RDW Lymph % (Auto) Lymph # Seg Neutrophils % Abs Lymphs (Manual) D-Dimer POC ABG pH 7.615 H POC ABG pCO2 32.6 L 48.8 H POC ABG pO2 79 L 118 H Sodium Potassium Chloride Carbon Dioxide Creatinine Glucose POC Glucose 164 H Calcium Lactate Dehydrogenase C-Reactive Protein Albumin Lymph Enumerat CD4/CD8 % CD3 Cells Absolute CD3 Count % CD4 Cells Absolute CD4 Count % CD8 Cells Absolute CD8 Count % CD19 Cells Absolute CD19 Count HIV-1 RNA PCR copies/ml HIV-1 RNA (PCR) log Miscellaneous Test Crossmatch 07/18/18 07/18/18 07/19/18 18:25 20:39 03:53 RBC Hgb Hct RDW Lymph % (Auto) Lymph # Seg Neutrophils % Abs Lymphs (Manual) D-Dimer POC ABG pH 7.339 L POC ABG pCO2 59.9 H 65.0 H POC ABG pO2 69 L Sodium Potassium Chloride Carbon Dioxide Creatinine Glucose POC Glucose 155 H Calcium Lactate Dehydrogenase C-Reactive Protein Albumin Lymph Enumerat CD4/CD8 % CD3 Cells Absolute CD3 Count % CD4 Cells Absolute CD4 Count % CD8 Cells Absolute CD8 Count % CD19 Cells Absolute CD19 Count HIV-1 RNA PCR copies/ml HIV-1 RNA (PCR) log Miscellaneous Test Crossmatch 07/19/18 07/19/18 07/19/18 08:10 08:10 10:52 RBC 2.51 L Hgb 7.4 L Hct 22.0 L RDW 15.5 H Lymph % (Auto) Lymph # Seg Neutrophils % Abs Lymphs (Manual) D-Dimer POC ABG pH POC ABG pCO2 POC ABG pO2 Sodium 130 L Potassium Chloride 89.0 L Carbon Dioxide 33 H Creatinine 0.4 L Glucose 150 H POC Glucose 173 H Calcium 7.5 L Lactate Dehydrogenase C-Reactive Protein Albumin Lymph Enumerat CD4/CD8 % CD3 Cells Absolute CD3 Count % CD4 Cells Absolute CD4 Count % CD8 Cells Absolute CD8 Count % CD19 Cells Absolute CD19 Count HIV-1 RNA PCR copies/ml HIV-1 RNA (PCR) log Miscellaneous Test Crossmatch 07/19/18 07/19/18 07/20/18 17:06 23:47 04:37 RBC Hgb Hct RDW Lymph % (Auto) Lymph # Seg Neutrophils % Abs Lymphs (Manual) D-Dimer POC ABG pH POC ABG pCO2 58.5 H POC ABG pO2 67 L Sodium Potassium Chloride Carbon Dioxide Creatinine Glucose POC Glucose 117 H 114 H Calcium Lactate Dehydrogenase C-Reactive Protein Albumin Lymph Enumerat CD4/CD8 % CD3 Cells Absolute CD3 Count % CD4 Cells Absolute CD4 Count % CD8 Cells Absolute CD8 Count % CD19 Cells Absolute CD19 Count HIV-1 RNA PCR copies/ml HIV-1 RNA (PCR) log Miscellaneous Test Crossmatch 07/20/18 07/20/18 07/21/18 06:20 06:20 04:18 RBC 2.69 L Hgb 7.8 L Hct 23.6 L RDW 15.5 H Lymph % (Auto) Lymph # Seg Neutrophils % Abs Lymphs (Manual) D-Dimer POC ABG pH 7.456 H POC ABG pCO2 60.4 H POC ABG pO2 64 L Sodium 134 L Potassium Chloride 89.2 L Carbon Dioxide 38 H Creatinine 0.7 L D Glucose 120 H POC Glucose Calcium 7.6 L Lactate Dehydrogenase C-Reactive Protein Albumin Lymph Enumerat CD4/CD8 % CD3 Cells Absolute CD3 Count % CD4 Cells Absolute CD4 Count % CD8 Cells Absolute CD8 Count % CD19 Cells Absolute CD19 Count HIV-1 RNA PCR copies/ml HIV-1 RNA (PCR) log Miscellaneous Test Crossmatch 07/21/18 07/21/18 07/22/18 04:35 04:35 04:16 RBC 2.62 L 2.37 L Hgb 7.7 L 7.0 L Hct 23.1 L 21.1 L RDW 15.4 H Lymph % (Auto) Lymph # Seg Neutrophils % Abs Lymphs (Manual) D-Dimer POC ABG pH POC ABG pCO2 POC ABG pO2 Sodium 129 L Potassium 5.3 H Chloride 85.3 L Carbon Dioxide 38 H Creatinine 0.4 L Glucose 108 H POC Glucose Calcium 8.0 L Lactate Dehydrogenase C-Reactive Protein Albumin Lymph Enumerat CD4/CD8 % CD3 Cells Absolute CD3 Count % CD4 Cells Absolute CD4 Count % CD8 Cells Absolute CD8 Count % CD19 Cells Absolute CD19 Count HIV-1 RNA PCR copies/ml HIV-1 RNA (PCR) log Miscellaneous Test Crossmatch 07/22/18 07/23/18 04:16 03:25 RBC Hgb Hct RDW Lymph % (Auto) Lymph # Seg Neutrophils % Abs Lymphs (Manual) D-Dimer POC ABG pH POC ABG pCO2 69.4 H POC ABG pO2 Sodium 132 L Potassium 5.4 H Chloride 87.4 L Carbon Dioxide 38 H Creatinine 0.4 L Glucose 117 H POC Glucose Calcium 7.5 L Lactate Dehydrogenase C-Reactive Protein Albumin Lymph Enumerat CD4/CD8 % CD3 Cells Absolute CD3 Count % CD4 Cells Absolute CD4 Count % CD8 Cells Absolute CD8 Count % CD19 Cells Absolute CD19 Count HIV-1 RNA PCR copies/ml HIV-1 RNA (PCR) log Miscellaneous Test Crossmatch Chest x-ray: image reviewed Allied health notes reviewed: nursing
[2018-07-23] MEDS: SODIUM CHLORIDE FLUSH SYRINGE 10 ML IV SCH (10:19)
[2018-07-23] MEDS: PEPCID PO SCH ×2 (10:19→22:05)
[2018-07-23] MEDS: HEPARIN SUB-Q SCH ×2 (10:20→22:05)
[2018-07-23] MEDS: CARDURA PO SCH (10:20)
--- NOTE | 2018-07-23 10:20 | Progress Note ---
Assessment and Plan Cultures: Blood culture 07/11/2018 no growth today. Cryptococcal antigen : negative MRSA PCR: positive Blood culture 07/15/2018: in progress Urine culture 07/15/2018: no growth in 24 hours Sputum culture 07/15/18: MRSA, Jannette CMV PCR 07/15/2018 33,392 copies Assessment: 37 y/o male currently in senior care with history of HIV infection of unknown duration, noncompliant with antiretroviral medication, severe malnutrition; admitted on 07/11/2018, brought by law enforcement, due to 2-week history of keesha rtness of breath, generalized weakness and productive cough: 1) Sepsis with new septic shock, off pressors. noted fever spike of 101.2 Etiology most likely pneumonia. Hepatitis panel negative. RPR nonreactive. CRP 2.7. Procalcitonin 3.09. Continue Cefepime and Linezolid. 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 CMV. Sputum culture 07/11/[address] no growth today. Chest CT showed bilateral patchy and somewhat confluent alveolar infiltrates and interstitial infiltrates. No effusions. Mild cardiomegaly. Sputum culture grew MRSA and Jannette 3) HIV, presumed AIDS: Patient has not taken his HIV medication for at least 6 months prior due to his incarceration. On admission he reported 40lbs unintentional weight loss for 2 months and intermittent loose stools over the past 2 weeks. VL 523,000/ CD4=7. Pneumocytosis Jirovecii positive. 4) Diarrhea: ? possible opportunistic infection. 5) Acute respiratory failure: not better, from pneumonia. 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 on 07/15/2018 Recommendations: - Add valganciclovir 900 mg PO BID to cover CMV viremia, check CMV DNA PCR on 08/06 - Continue Linezolid 600mg every 12 hours, D9 of 10 - Continue bactrim IV and solumedrol IV D 13 21 - follow-up G6PD level stat - contact isolation for MRSA Discussed with pharmacy Will follow Ana Kaur MD Infectious Diseases Body Recall Instructor [facility] ([facility] M [phone] O [phone] Subjective Date of service: 07/23/18 Principal diagnosis: Acute hypoxemic resp failure; Bilateral pneumonia (PJP); HIV/AIDS Interval history: Alert, slightly anxious, intubated, feels better, FiO2 55% p 12 ROS unable to obtain Objective - Exam Narrative Exam: General appearance: Alert on the ventilator Eyes: anicteric sclerae, moist conjunctivae; no lid-lag; PERRLA HENT: Atraumatic; oropharynx +ETT +NGT Neck: Trachea midline; supple, no thyromegaly or lymphadenopathy Lungs: ryland crackles CV: tachycardic Abdomen: Soft, non-tender; no masses or hepatosplenomegaly Extremities: No peripheral edema or extremity lymphadenopathy Skin: Normal temperature, turgor and texture; no rash, ulcers or subcutaneous nodules Psych: no agitated Neuro: alert and follows commands. Moving all extermities - Constitutional Vitals: Vital Signs Temp Pulse Resp BP Pulse Ox 97.6 F 116 H 21 159/101 93 07/23/18 08:00 07/23/18 09:00 07/23/18 09:00 07/23/18 09:00 07/23/18 09:00 Temperature -Last 24 Hours Temperature 97.6 F Temperature 97.8 F Temperature 97.5 F Temperature 97.6 F Temperature 97.4 F Temperature 97.5 F - Labs CBC & Chem 7: 07/22/18 04:16 07/22/18 04:16 Labs: Abnormal lab results 07/23/18 Range/Units 03:25 POC ABG pCO2 69.4 H (35-45)
[2018-07-23] MEDS: ZYVOX 600MG/300ML 600 MG/300 ML BAG IV SCH ×2 (10:33→22:06)
[2018-07-23] MEDS ORDERED: NACL 0.9% 1000 ML 1,000 ML IV SCH (11:00)
[2018-07-23] MEDS: COLACE PO SCH ×2 (11:24→22:03)
[2018-07-23] MEDS: NACL 0.9% IV SCH ×2 (12:01→23:55)
[2018-07-23] MEDS: CYTOVENE IV SCH ×2 (12:01→23:55)
[2018-07-23 13:17] LABS: BUN/Creatinine Ratio 63; Blood Urea Nitrogen 19 mg/dL (9-20); Calcium 7.4 mg/dL (8.4-10.2); Hemolysis Index 8
[2018-07-23] MEDS: MIDAZOLAM 100 MG in NACL 0.9% 80 ML IV SCH (13:40)
[2018-07-23] MEDS: DIPRIVAN 10 MG/ML 1,000 MG/100 ML BOTTLE IV SCH (20:23)
[2018-07-24] MEDS: fentaNYL DRIP Premix 2,000 MCG/100 ML BAG IV SCH ×3 (01:52→17:20)
[2018-07-24] MEDS: MIDAZOLAM 100 MG in NACL 0.9% 80 ML IV SCH ×2 (01:53→23:37)
[2018-07-24] MEDS: DIPRIVAN 10 MG/ML 1,000 MG/100 ML BOTTLE IV SCH ×3 (04:37→18:19)
[2018-07-24] MEDS: SODIUM CHLORIDE FLUSH SYRINGE 10 ML IV SCH ×2 (04:38→22:28)
[2018-07-24 05:01] LABS: Hemoglobin 6.3 gm/dl (11.8-15.2); Mean Corpuscular HGB Conc 33 % (32-34); Mean Corpuscular Volume 89 fl (84-94); Platelet Count 332 K/mm3 (140-440); Red Blood Count 2.12 M/mm3 (3.65-5.03); Red Cell Distribution Width 14.8 % (13.2-15.2)
[2018-07-24 05:11] LABS: Hematocrit 18.9 % (35.5-45.6)
[2018-07-24 05:30] LABS: BUN/Creatinine Ratio 47; Blood Urea Nitrogen 14 mg/dL (9-20); Calcium 7.5 mg/dL (8.4-10.2); Hemolysis Index 2
[2018-07-24] MEDS: BACTRIM 300 MG in D5W 500 ML IV SCH (06:12)
[2018-07-24] MEDS: SOLU-Medrol IV SCH ×3 (06:12→22:29)
[2018-07-24] MEDS ORDERED: NACL 0.9% 500 ML 500 ML IV ONE (06:53)
--- NOTE | 2018-07-24 08:58 | Progress Note ---
Assessment and Plan Acute Hypoxic respiratory failure on mechanical ventilation Severe sepsis with septic shock Severe ARDS Sepsis present on admission with grater than 2 SOFA criteria PJP (pneumocystis jiroveci pneumonia) Diarrhea Hyponatermia Syndrome Hyperkalemia Moderate Protein Malnutrition AIDS ANEMIA Elevated d/DIMER- NO PE noted Nicotine dependance/Tobacco use disorder -Transfuse to keep HgB>7g/dL -Titrate sedation to RASS of 0 to -1 -VAP bundle addressed - Continue lung protective strategies per ARDS net protocol -Permissive hypercapnia is acceptable - Antibiotics, anti-infectives per ID service. -ART per ID service, Antibiotic prophylaxis for OI per ID - Continue bronchodilators with pulmonary hygiene per RT - Continue full MVS -Daily CXR and ABG for now -Wean FIO2 for O2 sats>90%, at FIO2 of 45% at this time. Slowly wean PEEP, does not tolerate decreases in PEEP well - Monitor renal indices closely - Avoid nephrotoxic agents - Strict intake and output monitoring - Tube feedings, on Vital AF at 65ml/hour - Aspiration precautions. HOB >40 -Stress ulcer prophylaxis -VTE prophylaxis - Accuchecks with glycemic control. Target glucose of 140-180 mg/dL -Supportive transfusions as indicated for HgB<7g/dL - Maintenance of sleep -wake cycle - Mobility as tolerated by hemodynamics - Influenza and pneumonia vaccination per protocol ..care plan discussed at length with RN/RT at the bedside -Discussed in ICU-IDT rounds The high probability of a clinically significant, sudden or life threatening deterioration of the [pulmonary, cardiovascular] system(s) required my full and direct attention, intervention and personal management. The aggregate critical care time was [35] minutes. This time is in addition to time spent performing reported procedures but includes the following: [x] Data Review and interpretation [x] Patient assessment and monitoring of vital signs [x] Documentation [x] Medication orders and management Subjective Date of service: 07/24/18 Principal diagnosis: Acute hypoxemic resp failure; Bilateral pneumonia (PJP); HIV/AIDS Interval history: Patient is seen today for: Acute hypoxemic respiratory failure, on mechanical ventilatory support; Bilateral pneumonia, high suspicion for Pneumocystis jiroveci pneumonia; Human immunodeficiency virus/acquired immunodeficiency syndrome,noncompliant with therapy; Hyponatremia; Severe protein calorie malnutrition. Seen and examined at bedside; 24-hour events reviewed; nursing and respiratory care staff consulted; no adverse overnight events reported to me; remains critically ill with high ventilatory demands and on critical drips. Awake and alert, attempting to vocalize. Continues to require propofol, fentanyl and midazolam at maximal dose, yet RASS is at 1. No fevers, tolerating tube feedin gs, weaning FIO2 Objective Vital Signs - 12hr 07/23/18 07/23/18 07/23/18 21:00 21:30 22:00 Temperature Pulse Rate 121 H 106 H Pulse Rate [ From Monitor] Respiratory 42 H 31 H Rate Blood Pressure 118/74 128/78 111/69 O2 Sat by Pulse 93 92 Oximetry 07/23/18 07/23/18 07/23/18 22:30 23:00 23:18 Temperature 98.2 F Pulse Rate 114 H 109 H Pulse Rate [ From Monitor] Respiratory Rate Blood Pressure 102/52 92/50 O2 Sat by Pulse 95 95 Oximetry 07/23/18 07/23/18 07/24/18 23:21 23:30 00:00 Temperature Pulse Rate 105 H 104 H 104 H Pulse Rate [ 112 H From Monitor] Respiratory 34 H Rate Blood Pressure 102/52 95/58 104/60 O2 Sat by Pulse 97 96 94 Oximetry 07/24/18 07/24/18 07/24/18 00:20 00:30 01:00 Temperature Pulse Rate 105 H 106 H 108 H Pulse Rate [ From Monitor] Respiratory Rate Blood Pressure 104/60 119/70 114/66 O2 Sat by Pulse 97 95 94 Oximetry 07/24/18 07/24/18 07/24/18 01:30 02:00 02:30 Temperature Pulse Rate 117 H 114 H 115 H Pulse Rate [ From Monitor] Respiratory 28 H 27 H Rate Blood Pressure 120/69 120/72 122/74 O2 Sat by Pulse 92 92 93 Oximetry 07/24/18 07/24/18 07/24/18 03:00 03:28 03:30 Temperature 99 F Pulse Rate 125 H 118 H Pulse Rate [ From Monitor] Respiratory 44 H 28 H Rate Blood Pressure 139/85 123/72 O2 Sat by Pulse 91 Oximetry 07/24/18 07/24/18 07/24/18 04:00 04:30 05:00 Temperature Pulse Rate 106 H 103 H 108 H Pulse Rate [ 108 H From Monitor] Respiratory 30 H 20 13 Rate Blood Pressure 99/57 95/56 99/58 O2 Sat by Pulse 93 94 96 Oximetry 07/24/18 07/24/18 07/24/18 05:30 06:00 06:30 Temperature Pulse Rate 111 H 104 H 103 H Pulse Rate [ From Monitor] Respiratory 24 30 H 30 H Rate Blood Pressure 109/67 92/54 98/59 O2 Sat by Pulse 92 92 91 Oximetry 07/24/18 07/24/18 07/24/18 07:00 07:54 08:32 Temperature 97.6 F Pulse Rate 111 H 106 H Pulse Rate [ From Monitor] Respiratory 25 H Rate Blood Pressure 107/69 144/92 O2 Sat by Pulse 90 94 Oximetry Constitutional: appears uncomfortable, other (young AAM; normocephalic and atraumatic) Eyes: non-icteric ENT: oropharynx moist, other (ETT 23 cm SHONA) Neck: supple, no lymphadenopathy, no JVD Effort: mildly labored Ascultation: Bilateral: diminished breath sounds, rales Percussion: Bilateral: not dull Cardiovascular: regular rate and rhythm, other (S1,S2, no murmurs, gallops or rubs) Gastrointestinal: normoactive bowel sounds, soft, non-tender, non-distended Integumentary: normal Extremities: no cyanosis, no edema, pulses normal, no ischemia or petechiae Neurologic: normal mental status, non-focal exam, pupils equal and round, CN II- XII normal, motor strength normal and Psychiatric: other (sedated) CBC and BMP: 07/24/18 04:30 07/24/18 04:30 ABG, PT/INR, D-dimer: ABG POC ABG pH 7.462 (7.35-7.45) H 07/24/18 05:11 POC ABG pCO2 58.7 (35-45) H 07/24/18 05:11 POC ABG pO2 79 (80-105) L 07/24/18 05:11 POC ABG HCO3 42.0 (22-26 mml/L) 07/24/18 05:11 POC ABG Total CO2 44 (23-27mmol/L) 07/24/18 05:11 POC ABG O2 Sat 96 07/24/18 05:11 PT/INR, D-dimer 1298.70 ng/mlDDU (0-234) H 07/11/18 15:04 Abnormal lab findings: Abnormal Labs 07/11/18 07/11/18 07/11/18 14:06 14:06 15:04 RBC 3.30 L Hgb 9.6 L Hct 28.7 L RDW Lymph % (Auto) Lymph # Seg Neutrophils % Abs Lymphs (Manual) D-Dimer 1298.70 H POC ABG pH POC ABG pCO2 POC ABG pO2 Sodium 132 L Potassium Chloride Carbon Dioxide Creatinine 0.6 L Glucose 103 H POC Glucose Calcium 7.3 L Lactate Dehydrogenase C-Reactive Protein Albumin 2.1 L Lymph Enumerat CD4/CD8 % CD3 Cells Absolute CD3 Count % CD4 Cells Absolute CD4 Count % CD8 Cells Absolute CD8 Count % CD19 Cells Absolute CD19 Count HIV-1 RNA PCR copies/ml HIV-1 RNA (PCR) log Miscellaneous Test Crossmatch 07/11/18 07/11/18 07/12/18 17:36 22:15 00:25 RBC Hgb Hct RDW Lymph % (Auto) Lymph # Seg Neutrophils % Abs Lymphs (Manual) D-Dimer POC ABG pH 7.289 L POC ABG pCO2 POC ABG pO2 66 L Sodium Potassium Chloride Carbon Dioxide Creatinine Glucose POC Glucose Calcium Lactate Dehydrogenase 591 H C-Reactive Protein Albumin Lymph Enumerat CD4/CD8 % CD3 Cells Absolute CD3 Count % CD4 Cells Absolute CD4 Count % CD8 Cells Absolute CD8 Count % CD19 Cells Absolute CD19 Count HIV-1 RNA PCR copies/ml HIV-1 RNA (PCR) log Miscellaneous Test see below H Crossmatch 07/12/18 07/12/18 07/12/18 00:41 05:37 19:29 RBC Hgb Hct RDW Lymph % (Auto) Lymph # Seg Neutrophils % Abs Lymphs (Manual) D-Dimer POC ABG pH 7.302 L 7.275 L POC ABG pCO2 47.1 H POC ABG pO2 Sodium Potassium Chloride Carbon Dioxide Creatinine Glucose POC Glucose Calcium Lactate Dehydrogenase 731 H C-Reactive Protein Albumin Lymph Enumerat CD4/CD8 % CD3 Cells Absolute CD3 Count % CD4 Cells Absolute CD4 Count % CD8 Cells Absolute CD8 Count % CD19 Cells Absolute CD19 Count HIV-1 RNA PCR copies/ml HIV-1 RNA (PCR) log Miscellaneous Test Crossmatch 07/12/18 07/12/18 07/13/18 19:29 19:29 04:03 RBC Hgb Hct RDW Lymph % (Auto) Lymph # Seg Neutrophils % Abs Lymphs (Manual) 220 L D-Dimer POC ABG pH 7.254 L POC ABG pCO2 49.2 H POC ABG pO2 Sodium Potassium Chloride Carbon Dioxide Creatinine Glucose POC Glucose Calcium Lactate Dehydrogenase C-Reactive Protein Albumin Lymph Enumerat CD4/CD8 0.04 L % CD3 Cells 88 H Absolute CD3 Count 194 L % CD4 Cells 3 L Absolute CD4 Count 7 L % CD8 Cells 75 H Absolute CD8 Count 177 L % CD19 Cells 4 L Absolute CD19 Count 9 L HIV-1 RNA PCR copies/ml 024110 H HIV-1 RNA (PCR) log 5.72 H Miscellaneous Test Crossmatch 07/13/18 07/13/18 07/13/18 05:46 12:23 18:31 RBC Hgb Hct RDW Lymph % (Auto) Lymph # Seg Neutrophils % Abs Lymphs (Manual) D-Dimer POC ABG pH POC ABG pCO2 POC ABG pO2 Sodium Potassium Chloride Carbon Dioxide Creatinine Glucose POC Glucose 68 L 106 H 112 H Calcium Lactate Dehydrogenase C-Reactive Protein Albumin Lymph Enumerat CD4/CD8 % CD3 Cells Absolute CD3 Count % CD4 Cells Absolute CD4 Count % CD8 Cells Absolute CD8 Count % CD19 Cells Absolute CD19 Count HIV-1 RNA PCR copies/ml HIV-1 RNA (PCR) log Miscellaneous Test Crossmatch 07/14/18 07/14/18 07/14/18 04:19 05:36 05:36 RBC 2.99 L Hgb 8.8 L Hct 25.7 L RDW 15.5 H Lymph % (Auto) Lymph # Seg Neutrophils % Abs Lymphs (Manual) D-Dimer POC ABG pH 7.337 L POC ABG pCO2 POC ABG pO2 Sodium 135 L Potassium Chloride Carbon Dioxide 21 L Creatinine 0.7 L Glucose 123 H POC Glucose Calcium 8.2 L Lactate Dehydrogenase C-Reactive Protein Albumin Lymph Enumerat CD4/CD8 % CD3 Cells Absolute CD3 Count % CD4 Cells Absolute CD4 Count % CD8 Cells Absolute CD8 Count % CD19 Cells Absolute CD19 Count HIV-1 RNA PCR copies/ml HIV-1 RNA (PCR) log Miscellaneous Test Crossmatch 07/14/18 07/14/18 07/14/18 12:14 14:33 17:18 RBC Hgb Hct RDW Lymph % (Auto) Lymph # Seg Neutrophils % Abs Lymphs (Manual) D-Dimer POC ABG pH 7.325 L POC ABG pCO2 POC ABG pO2 75 L Sodium Potassium Chloride Carbon Dioxide Creatinine Glucose POC Glucose 174 H 114 H Calcium Lactate Dehydrogenase C-Reactive Protein Albumin Lymph Enumerat CD4/CD8 % CD3 Cells Absolute CD3 Count % CD4 Cells Absolute CD4 Count % CD8 Cells Absolute CD8 Count % CD19 Cells Absolute CD19 Count HIV-1 RNA PCR copies/ml HIV-1 RNA (PCR) log Miscellaneous Test Crossmatch 07/15/18 07/15/18 07/15/18 00:17 12:29 12:29 RBC 2.64 L Hgb 7.5 L Hct 22.9 L RDW 15.4 H Lymph % (Auto) 7.0 L Lymph # 0.4 L Seg Neutrophils % 89.6 H Abs Lymphs (Manual) D-Dimer POC ABG pH POC ABG pCO2 POC ABG pO2 Sodium Potassium Chloride Carbon Dioxide Creatinine 0.6 L Glucose 124 H POC Glucose 113 H Calcium 7.3 L Lactate Dehydrogenase C-Reactive Protein Albumin Lymph Enumerat CD4/CD8 % CD3 Cells Absolute CD3 Count % CD4 Cells Absolute CD4 Count % CD8 Cells Absolute CD8 Count % CD19 Cells Absolute CD19 Count HIV-1 RNA PCR copies/ml HIV-1 RNA (PCR) log Miscellaneous Test Crossmatch 07/15/18 07/16/18 07/16/18 14:09 04:46 07:21 RBC Hgb Hct RDW Lymph % (Auto) Lymph # Seg Neutrophils % Abs Lymphs (Manual) D-Dimer POC ABG pH 7.282 L POC ABG pCO2 52.6 H POC ABG pO2 63 L Sodium Potassium Chloride Carbon Dioxide Creatinine Glucose POC Glucose Calcium Lactate Dehydrogenase C-Reactive Protein 2.70 H Albumin Lymph Enumerat CD4/CD8 % CD3 Cells Absolute CD3 Count % CD4 Cells Absolute CD4 Count % CD8 Cells Absolute CD8 Count % CD19 Cells Absolute CD19 Count HIV-1 RNA PCR copies/ml HIV-1 RNA (PCR) log Miscellaneous Test Flexitest 1 H Crossmatch 07/16/18 07/16/18 07/16/18 07:21 07:21 16:16 RBC 2.48 L Hgb 7.2 L Hct 21.5 L RDW 15.7 H Lymph % (Auto) Lymph # Seg Neutrophils % Abs Lymphs (Manual) D-Dimer POC ABG pH 7.251 L POC ABG pCO2 62.2 H POC ABG pO2 Sodium 136 L Potassium Chloride Carbon Dioxide Creatinine 0.6 L Glucose 118 H POC Glucose Calcium 7.5 L Lactate Dehydrogenase C-Reactive Protein Albumin Lymph Enumerat CD4/CD8 % CD3 Cells Absolute CD3 Count % CD4 Cells Absolute CD4 Count % CD8 Cells Absolute CD8 Count % CD19 Cells Absolute CD19 Count HIV-1 RNA PCR copies/ml HIV-1 RNA (PCR) log Miscellaneous Test Crossmatch 07/17/18 07/18/18 07/18/18 04:01 01:10 03:10 RBC 2.20 L Hgb 6.5 L Hct 19.2 L* RDW 16.0 H Lymph % (Auto) 7.2 L Lymph # 0.5 L Seg Neutrophils % 89.9 H Abs Lymphs (Manual) D-Dimer POC ABG pH 7.245 L POC ABG pCO2 63.8 H POC ABG pO2 75 L Sodium Potassium Chloride Carbon Dioxide Creatinine Glucose POC Glucose Calcium Lactate Dehydrogenase C-Reactive Protein Albumin Lymph Enumerat CD4/CD8 % CD3 Cells Absolute CD3 Count % CD4 Cells Absolute CD4 Count % CD8 Cells Absolute CD8 Count % CD19 Cells Absolute CD19 Count HIV-1 RNA PCR copies/ml HIV-1 RNA (PCR) log Miscellaneous Test Crossmatch See Detail 07/18/18 07/18/18 07/18/18 04:54 05:02 12:59 RBC Hgb Hct RDW Lymph % (Auto) Lymph # Seg Neutrophils % Abs Lymphs (Manual) D-Dimer POC ABG pH 7.615 H POC ABG pCO2 32.6 L 48.8 H POC ABG pO2 79 L 118 H Sodium Potassium Chloride Carbon Dioxide Creatinine Glucose POC Glucose 164 H Calcium Lactate Dehydrogenase C-Reactive Protein Albumin Lymph Enumerat CD4/CD8 % CD3 Cells Absolute CD3 Count % CD4 Cells Absolute CD4 Count % CD8 Cells Absolute CD8 Count % CD19 Cells Absolute CD19 Count HIV-1 RNA PCR copies/ml HIV-1 RNA (PCR) log Miscellaneous Test Crossmatch 07/18/18 07/18/18 07/19/18 18:25 20:39 03:53 RBC Hgb Hct RDW Lymph % (Auto) Lymph # Seg Neutrophils % Abs Lymphs (Manual) D-Dimer POC ABG pH 7.339 L POC ABG pCO2 59.9 H 65.0 H POC ABG pO2 69 L Sodium Potassium Chloride Carbon Dioxide Creatinine Glucose POC Glucose 155 H Calcium Lactate Dehydrogenase C-Reactive Protein Albumin Lymph Enumerat CD4/CD8 % CD3 Cells Absolute CD3 Count % CD4 Cells Absolute CD4 Count % CD8 Cells Absolute CD8 Count % CD19 Cells Absolute CD19 Count HIV-1 RNA PCR copies/ml HIV-1 RNA (PCR) log Miscellaneous Test Crossmatch 07/19/18 07/19/18 07/19/18 08:10 08:10 10:52 RBC 2.51 L Hgb 7.4 L Hct 22.0 L RDW 15.5 H Lymph % (Auto) Lymph # Seg Neutrophils % Abs Lymphs (Manual) D-Dimer POC ABG pH POC ABG pCO2 POC ABG pO2 Sodium 130 L Potassium Chloride 89.0 L Carbon Dioxide 33 H Creatinine 0.4 L Glucose 150 H POC Glucose 173 H Calcium 7.5 L Lactate Dehydrogenase C-Reactive Protein Albumin Lymph Enumerat CD4/CD8 % CD3 Cells Absolute CD3 Count % CD4 Cells Absolute CD4 Count % CD8 Cells Absolute CD8 Count % CD19 Cells Absolute CD19 Count HIV-1 RNA PCR copies/ml HIV-1 RNA (PCR) log Miscellaneous Test Crossmatch 07/19/18 07/19/18 07/20/18 17:06 23:47 04:37 RBC Hgb Hct RDW Lymph % (Auto) Lymph # Seg Neutrophils % Abs Lymphs (Manual) D-Dimer POC ABG pH POC ABG pCO2 58.5 H POC ABG pO2 67 L Sodium Potassium Chloride Carbon Dioxide Creatinine Glucose POC Glucose 117 H 114 H Calcium Lactate Dehydrogenase C-Reactive Protein Albumin Lymph Enumerat CD4/CD8 % CD3 Cells Absolute CD3 Count % CD4 Cells Absolute CD4 Count % CD8 Cells Absolute CD8 Count % CD19 Cells Absolute CD19 Count HIV-1 RNA PCR copies/ml HIV-1 RNA (PCR) log Miscellaneous Test Crossmatch 07/20/18 07/20/18 07/21/18 06:20 06:20 04:18 RBC 2.69 L Hgb 7.8 L Hct 23.6 L RDW 15.5 H Lymph % (Auto) Lymph # Seg Neutrophils % Abs Lymphs (Manual) D-Dimer POC ABG pH 7.456 H POC ABG pCO2 60.4 H POC ABG pO2 64 L Sodium 134 L Potassium Chloride 89.2 L Carbon Dioxide 38 H Creatinine 0.7 L D Glucose 120 H POC Glucose Calcium 7.6 L Lactate Dehydrogenase C-Reactive Protein Albumin Lymph Enumerat CD4/CD8 % CD3 Cells Absolute CD3 Count % CD4 Cells Absolute CD4 Count % CD8 Cells Absolute CD8 Count % CD19 Cells Absolute CD19 Count HIV-1 RNA PCR copies/ml HIV-1 RNA (PCR) log Miscellaneous Test Crossmatch 07/21/18 07/21/18 07/22/18 04:35 04:35 04:16 RBC 2.62 L 2.37 L Hgb 7.7 L 7.0 L Hct 23.1 L 21.1 L RDW 15.4 H Lymph % (Auto) Lymph # Seg Neutrophils % Abs Lymphs (Manual) D-Dimer POC ABG pH POC ABG pCO2 POC ABG pO2 Sodium 129 L Potassium 5.3 H Chloride 85.3 L Carbon Dioxide 38 H Creatinine 0.4 L Glucose 108 H POC Glucose Calcium 8.0 L Lactate Dehydrogenase C-Reactive Protein Albumin Lymph Enumerat CD4/CD8 % CD3 Cells Absolute CD3 Count % CD4 Cells Absolute CD4 Count % CD8 Cells Absolute CD8 Count % CD19 Cells Absolute CD19 Count HIV-1 RNA PCR copies/ml HIV-1 RNA (PCR) log Miscellaneous Test Crossmatch 07/22/18 07/23/18 07/23/18 04:16 03:25 12:45 RBC Hgb Hct RDW Lymph % (Auto) Lymph # Seg Neutrophils % Abs Lymphs (Manual) D-Dimer POC ABG pH POC ABG pCO2 69.4 H POC ABG pO2 Sodium 132 L 125 L D Potassium 5.4 H 5.3 H Chloride 87.4 L 80.3 L Carbon Dioxide 38 H 38 H Creatinine 0.4 L 0.3 L Glucose 117 H 124 H POC Glucose Calcium 7.5 L 7.4 L Lactate Dehydrogenase C-Reactive Protein Albumin Lymph Enumerat CD4/CD8 % CD3 Cells Absolute CD3 Count % CD4 Cells Absolute CD4 Count % CD8 Cells Absolute CD8 Count % CD19 Cells Absolute CD19 Count HIV-1 RNA PCR copies/ml HIV-1 RNA (PCR) log Miscellaneous Test Crossmatch 07/23/18 07/24/18 07/24/18 23:52 04:30 04:30 RBC 2.12 L Hgb 6.3 L Hct 18.9 L* RDW Lymph % (Auto) Lymph # Seg Neutrophils % Abs Lymphs (Manual) D-Dimer POC ABG pH POC ABG pCO2 POC ABG pO2 Sodium 127 L Potassium 5.2 H Chloride 83.9 L Carbon Dioxide 39 H Creatinine 0.3 L Glucose POC Glucose 118 H Calcium 7.5 L Lactate Dehydrogenase C-Reactive Protein Albumin Lymph Enumerat CD4/CD8 % CD3 Cells Absolute CD3 Count % CD4 Cells Absolute CD4 Count % CD8 Cells Absolute CD8 Count % CD19 Cells Absolute CD19 Count HIV-1 RNA PCR copies/ml HIV-1 RNA (PCR) log Miscellaneous Test Crossmatch 07/24/18 07/24/18 07/24/18 05:11 05:30 07:50 RBC Hgb Hct RDW Lymph % (Auto) Lymph # Seg Neutrophils % Abs Lymphs (Manual) D-Dimer POC ABG pH 7.462 H POC ABG pCO2 58.7 H POC ABG pO2 79 L Sodium Potassium Chloride Carbon Dioxide Creatinine Glucose POC Glucose 145 H Calcium Lactate Dehydrogenase C-Reactive Protein Albumin Lymph Enumerat CD4/CD8 % CD3 Cells Absolute CD3 Count % CD4 Cells Absolute CD4 Count % CD8 Cells Absolute CD8 Count % CD19 Cells Absolute CD19 Count HIV-1 RNA PCR copies/ml HIV-1 RNA (PCR) log Miscellaneous Test Crossmatch See Detail Chest x-ray: image reviewed Allied health notes reviewed: nursing
--- NOTE | 2018-07-24 09:42 | Progress Note ---
Assessment and Plan Cultures: Blood culture 07/11/2018 no growth today. Cryptococcal antigen : negative MRSA PCR: positive Blood culture 07/15/2018: in progress Urine culture 07/15/2018: no growth in 24 hours Sputum culture 07/15/18: MRSA, Jannette CMV PCR 07/15/2018 33,392 copies Assessment: 37 y/o male currently in retirement with history of HIV infection of unknown duration, noncompliant with antiretroviral medication, severe malnutrition; admitted on 07/11/2018, brought by law enforcement, due to 2-week history of keesha rtness of breath, generalized weakness and productive cough: 1) Sepsis with new septic shock, off pressors. noted fever spike of 101.2 Etiology most likely pneumonia. Hepatitis panel negative. RPR nonreactive. CRP 2.7. Procalcitonin 3.09. Continue Cefepime and Linezolid. 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 CMV. Sputum culture 07/11/[address] no growth today. Chest CT showed bilateral patchy and somewhat confluent alveolar infiltrates and interstitial infiltrates. No effusions. Mild cardiomegaly. Sputum culture grew MRSA and Jannette 3) HIV, presumed AIDS: Patient has not taken his HIV medication for at least 6 months prior due to his incarceration. On admission he reported 40lbs unintentional weight loss for 2 months and intermittent loose stools over the past 2 weeks. VL 523,000/ CD4=7. Pneumocytosis Jirovecii positive. 4) Diarrhea: ? possible opportunistic infection. 5) Acute respiratory failure: not better, from pneumonia. 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 on 07/15/2018 Recommendations: - to start valganciclovir 900 mg PO BID to cover CMV viremia (No in stock), check CMV DNA PCR on 08/06 - Stop Linezolid 600mg every 12 hours, D10 of 10 - Continue bactrim IV and solumedrol IV D 14 of 21 - follow-up G6PD level stat - contact isolation for MRSA Discussed with pharmacy Will follow Ana Kaur MD Infectious Diseases [facility] M [phone] O [phone] Subjective Date of service: 07/24/18 Principal diagnosis: Acute hypoxemic resp failure; Bilateral pneumonia (PJP); HIV/AIDS Interval history: Sedated on 3 sedative, intubated, FiO2 65% p 12 ROS unable to obtain Objective - Exam Narrative Exam: General appearance: sedated on the ventilator Eyes: anicteric sclerae, moist conjunctivae; no lid-lag; PERRLA HENT: Atraumatic; oropharynx +ETT +NGT Neck: Trachea midline; supple, no thyromegaly or lymphadenopathy Lungs: ryland crackles CV: tachycardic Abdomen: Soft, non-tender; no masses or hepatosplenomegaly Extremities: No peripheral edema or extremity lymphadenopathy Skin: Normal temperature, turgor and texture; no rash, ulcers or subcutaneous nodules Psych: no agitated Neuro: sedated - Constitutional Vitals: Vital Signs Temp Pulse Resp BP Pulse Ox 97.6 F 106 H 25 H 144/92 94 07/24/18 07:54 07/24/18 08:32 07/24/18 07:00 07/24/18 08:32 07/24/18 08:32 Temperature -Last 24 Hours Temperature 97.6 F Temperature 99 F Temperature 98.2 F Temperature 98.1 F Temperature 97.2 F Temperature 97 F - Labs CBC & Chem 7: 07/24/18 04:30 07/24/18 04:30 Labs: Abnormal lab results 07/23/18 07/23/18 07/24/18 Range/Units 12:45 23:52 04:30 RBC 2.12 L (3.65-5.03) M/mm3 Hgb 6.3 L (11.8-15.2) gm/dl Hct 18.9 L* (35.5-45.6) % POC ABG pH (7.35-7.45) POC ABG pCO2 (35-45) POC ABG pO2 (80-105) Sodium 125 L D (137-145) mmol/L Potassium 5.3 H (3.6-5.0) mmol/L Chloride 80.3 L (98-107) mmol/L Carbon Dioxide 38 H (22-30) mmol/L Creatinine 0.3 L (0.8-1.5) mg/dL Glucose 124 H (75-100) mg/dL POC Glucose 118 H (70-105) Calcium 7.4 L (8.4-10.2) mg/dL Crossmatch 07/24/18 07/24/18 07/24/18 Range/Units 04:30 05:11 05:30 RBC (3.65-5.03) M/mm3 Hgb (11.8-15.2) gm/dl Hct (35.5-45.6) % POC ABG pH 7.462 H (7.35-7.45) POC ABG pCO2 58.7 H (35-45) POC ABG pO2 79 L (80-105) Sodium 127 L (137-145) mmol/L Potassium 5.2 H (3.6-5.0) mmol/L Chloride 83.9 L (98-107) mmol/L Carbon Dioxide 39 H (22-30) mmol/L Creatinine 0.3 L (0.8-1.5) mg/dL Glucose (75-100) mg/dL POC Glucose 145 H (70-105) Calcium 7.5 L (8.4-10.2) mg/dL Crossmatch 07/24/18 Range/Units 07:50 RBC (3.65-5.03) M/mm3 Hgb (11.8-15.2) gm/dl Hct (35.5-45.6) % POC ABG pH (7.35-7.45) POC ABG pCO2 (35-45) POC ABG pO2 (80-105) Sodium (137-145) mmol/L Potassium (3.6-5.0) mmol/L Chloride (98-107) mmol/L Carbon Dioxide (22-30) mmol/L Creatinine (0.8-1.5) mg/dL Glucose (75-100) mg/dL POC Glucose (70-105) Calcium (8.4-10.2) mg/dL Crossmatch See Detail
[2018-07-24] MEDS: HEPARIN SUB-Q SCH ×2 (10:04→22:30)
[2018-07-24] MEDS: CARDURA PO SCH (10:05)
[2018-07-24] MEDS: PEPCID PO SCH ×2 (10:05→22:30)
[2018-07-24] MEDS: ZYVOX 600MG/300ML 600 MG/300 ML BAG IV SCH ×2 (10:22→22:28)
[2018-07-24] MEDS: COLACE PO SCH ×2 (10:22→22:28)
--- NOTE | 2018-07-24 12:28 | XRay Report ---
AP ABDOMEN: HISTORY: Feeding tube placement. The distal tip of the feeding tube terminates in the antrum of the stomach. The abdominal gas pattern is unremarkable. No masses or organomegaly is identified and there is no gross evidence of free air or fluid. No significant soft tissue calcifications are noted. Bibasilar lung opacities are identified, right greater than left. IMPRESSION: Feeding tube terminates in the distal stomach.
[2018-07-24] MEDS ORDERED: NACL 0.9% 500 ML 500 ML ONE (13:49)
--- NOTE | 2018-07-24 16:36 | Progress Note ---
Assessment and Plan Assessment and plan: Patient is a 37 yo man with a history of HIV and tobacco dependency who presents from [facility] to PSYCHIATRIC ED with sob and cough. Pt admitted to [facility] and initiated on Pneumonia protocol. In the ED, temp 99.8, HR 104, R 29, O2 sat 77%, BP 94/50. WBC 6.1, Hg 9.6, Plat 398. Creat 0.6. Blood culture 07/11/2018 no growth today. Sputum culture 07/11/2018 no growth today. Chest CT showed bilateral patchy and somewhat confluent alveolar infiltrates and interstitial infiltrates. No effusions. Mild cardiomegaly. Patient required emergent intubation following admission to the [facility]. Patient unfortunately has remained on full ventilatory support and very resistant hypoxia currently on high level FIO2.Patient unfortunately has remained on full ventilatory support and very resistant hypoxia currently on high level FIO2. * CT head: No CT evidence of acute intracranial abnormality. Pansinus disease * CTA CHEST: IMPRESSION: No pulmonary embolus. Bilateral patchy and somewhat confluent alveolar infiltrates and interstitial infiltrates. Noeffusions. Mild cardiomegaly. Runnings likely reflect a viral pneumonia or inhalational process * CXR IMPRESSION: Heart size is normal.There are bilateral lower lobe infiltrates. These are slightly worse than the prior study.. There is no pleural effusion or pneumothorax. Endotracheal tube is in the mid trachea. NG tube is in the stomach. There is a right-sided PICC line. The tip is in the superior vena cava.. 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 Severe Protein Malnutrition: Lpn Home Health to follow AIDS with history of noncompliance: ID following AOCD: monitor cbc closely acute blood loss anemia: Transfuse 2 units prbc and monitor Elevated d/DIMER- NO PE noted on CTA chest Restraint renewed From Nursing Home, no NOK/family listed, Case management to find NOK; this week start to consider trach/peg poor prognosis CCT 35 minutes The high probability of a clinically significant, sudden or life threatening deterioration of the [pulmonary, system(s) required my full and direct attention, intervention and personal management. The aggregate critical care time was [50] minutes. This time is in addition to time spent performing reported procedures but includes the following: [x] Data Review and interpretation [x] Patient assessment and monitoring of vital signs [x] Documentation [x] Medication orders and management . History Interval history: Patient seen and examined, remains on mechanical ventilation, noted anemic today, PRBC ordered and pending transfusion Hospitalist Physical - Physical exam Narrative exam: Narrative exam: Gen: thin, critically ill, intubated and sedated and restriants in place HEENT: NCAT, EOMI, PERRL, OP ETT and NGT in place Neck: supple, no JVD CVS/Heart: Regular tachycardia, normal S1S2, pulses present bilaterally Chest/Lungs: tachypenic, diminished bs bilateral, Symmetrical chest expansion, good air entry bilaterally GI/Abdomen: soft, good bowel sounds, no guarding or rebound /Bladder: no suprapubic tenderness, Extermity/Skin: poor skin tone MSK: sedated Neuro: sedated Psych:sedated - Constitutional Vitals: Temp Pulse Resp BP Pulse Ox 96.5 F L 98 H 21 100/60 97 07/24/18 16:31 07/24/18 16:31 07/24/18 16:31 07/24/18 16:31 07/24/18 16:31 General appearance: Present: cachectic, disheveled. Absent: mild distress Results - Labs CBC & Chem 7: 07/24/18 04:30 07/24/18 04:30 Labs: Laboratory Last Values WBC 4.9 K/mm3 (4.5-11.0) 07/24/18 04:30 RBC 2.12 M/mm3 (3.65-5.03) L 07/24/18 04:30 Hgb 6.3 gm/dl (11.8-15.2) L 07/24/18 04:30 Hct 18.9 % (35.5-45.6) L* 07/24/18 04:30 MCV 89 fl (84-94) 07/24/18 04:30 MCH 30 pg (28-32) 07/24/18 04:30 MCHC 33 % (32-34) 07/24/18 04:30 RDW 14.8 % (13.2-15.2) 07/24/18 04:30 Plt Count 332 K/mm3 (140-440) 07/24/18 04:30 Lymph % (Auto) 7.2 % (13.4-35.0) L 07/18/18 01:10 [place] % (Auto) 2.8 % (0.0-7.3) 07/18/18 01:10 Eos % (Auto) 0.0 % (0.0-4.3) 07/18/18 01:10 Baso % (Auto) 0.1 % (0.0-1.8) 07/18/18 01:10 Lymph # 0.5 K/mm3 (1.2-5.4) L 07/18/18 01:10 [place] # 0.2 K/mm3 (0.0-0.8) 07/18/18 01:10 Eos # 0.0 K/mm3 (0.0-0.4) 07/18/18 01:10 Baso # 0.0 K/mm3 (0.0-0.1) 07/18/18 01:10 Seg Neutrophils % 89.9 % (40.0-70.0) H 07/18/18 01:10 Seg Neutrophils # 6.3 K/mm3 (1.8-7.7) 07/18/18 01:10 Abs Lymphs (Manual) 220 cells/uL (850-3900) L 07/12/18 19:29 1298.70 ng/mlDDU (0-234) H 07/11/18 15:04 POC ABG pH 7.462 (7.35-7.45) H 07/24/18 05:11 POC ABG pCO2 58.7 (35-45) H 07/24/18 05:11 POC ABG pO2 79 (80-105) L 07/24/18 05:11 POC ABG HCO3 42.0 (22-26 mml/L) 07/24/18 05:11 POC ABG Total CO2 44 (23-27mmol/L) 07/24/18 05:11 POC ABG O2 Sat 96 07/24/18 05:11 POC ABG Base Excess 18 ((-2) - (+3)mmol/L) 07/24/18 05:11 45 % 07/24/18 05:11 Sodium 127 mmol/L (137-145) L 07/24/18 04:30 Potassium 5.2 mmol/L (3.6-5.0) H 07/24/18 04:30 Chloride 83.9 mmol/L (98-107) L 07/24/18 04:30 Carbon Dioxide 39 mmol/L (22-30) H 07/24/18 04:30 9 mmol/L 07/24/18 04:30 BUN 14 mg/dL (9-20) 07/24/18 04:30 0.3 mg/dL (0.8-1.5) L 07/24/18 04:30 Estimated GFR > 60 ml/min 07/24/18 04:30 47 % 07/24/18 04:30 Glucose 89 mg/dL (75-100) 07/24/18 04:30 POC Glucose 95 (70-105) 07/24/18 13:06 Lactic Acid 1.80 mmol/L (0.7-2.0) 07/11/18 21:01 Calcium 7.5 mg/dL (8.4-10.2) L 07/24/18 04:30 0.20 mg/dL (0.1-1.2) 07/11/18 14:06 AST 30 units/L (5-40) 07/11/18 14:06 ALT 11 units/L (7-56) 07/11/18 14:06 50 units/L (35-129) 07/11/18 14:06 731 units/L (91-180) H 07/12/18 19:29 < 0.010 ng/mL (0.00-0.029) 07/11/18 15:04 2.70 mg/dL (0.00-1.30) H 07/15/18 14:09 NT-Pro-B Natriuret Pep 249.7 pg/mL (0-450) 07/11/18 15:04 6.3 g/dL (6.3-8.2) 07/11/18 14:06 2.1 g/dL (3.9-5) L 07/11/18 14:06 0.5 % 07/11/18 14:06 Triglycerides 148 mg/dL (2-149) 07/17/18 05:00 Yellow (Yellow) 07/15/18 14:14 Clear (Clear) 07/15/18 14:14 6.0 (5.0-7.0) 07/15/18 14:14 Ur Specific [place] 1.015 (1.003-1.030) 07/15/18 14:14 30 mg/dl mg/dL (Negative) 07/15/18 14:14 Neg mg/dL (Negative) 07/15/18 14:14 Neg mg/dL (Negative) 07/15/18 14:14 Neg (Negative) 07/15/18 14:14 Neg (Negative) 07/15/18 14:14 Neg (Negative) 07/15/18 14:14 < 2.0 mg/dL (<2.0) 07/15/18 14:14 Ur Leukocyte Esterase Neg (Negative) 07/15/18 14:14 2.0 /HPF (0.0-6.0) 07/15/18 14:14 6.0 /HPF (0.0-6.0) 07/15/18 14:14 21 mmol/L 07/19/18 14:27 Lymph Enumerat CD4/CD8 0.04 (0.86-5.00) L 07/12/18 19:29 % CD3 Cells 88 % (57-85) H 07/12/18 19:29 194 cells/uL (840-3060) L 07/12/18 19:29 % CD4 Cells 3 % (30-61) L 07/12/18 19:29 7 cells/uL (490-1740) L 07/12/18 19:29 % CD8 Cells 75 % (12-42) H 07/12/18 19:29 177 cells/uL (180-1170) L 07/12/18 19:29 % CD19 Cells 4 % (6-29) L 07/12/18 19:29 9 cells/uL (110-660) L 07/12/18 19:29 RPR Nonreactive (Nonreactive) 07/12/18 23:38 CMV DNA PCR 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/mL See scanned result 07/15/18 14:09 Hepatitis A IgM Ab Non-reactive (NonReactive) 07/12/18 23:38 Hep Bs Antigen Non-reactive (Negative) 07/12/18 23:38 Hep B Core IgM Ab Non-reactive (NonReactive) 07/12/18 23:38 Non-reactive (NonReactive) 07/12/18 23:38 HIV-1 RNA PCR copies/ml [id number] Copies/mL H 07/12/18 19:29 5.72 Log cps/mL H 07/12/18 19:29 Flexitest 1 H 07/16/18 07:21 Blood Type O POSITIVE 07/24/18 07:50 Antibody Screen Positive 07/24/18 07:50 Prewarmed Antibody Srcn Positive 07/18/18 03:10 Antibody Identification Anti-Adrianna 07/24/18 07:50 Direct Antiglob Test Negative 07/24/18 07:50 NIKUNJ, Poly Interpret Negative 07/24/18 07:50 Crossmatch See Detail 07/24/18 07:50 Active Medications - Current Medications Current Medications: Generic Name Dose Route Start Last Admin Trade Name Freq PRN Reason Stop Dose Admin Acetaminophen 650 mg 07/12/18 18:07 07/21/18 19:30 Tylenol FEEDTUBE 650 mg Q6H PRN Administration Non Cardiac Pain or Temp>100.5 Albuterol 2.5 mg 07/11/18 17:16 Proventil IH Q3HRT PRN Shortness Of Breath Lipase/Protease/Amylase 1 each 07/13/18 12:30 Pancrejulius Stout 10,500 Unit FEEDTUBE PRN PRN For Clogged Feeding Tube Docusate Sodium 100 mg 07/15/18 12:00 07/24/18 10:22 Colace PO 100 mg BID HE Administration Doxazosin Mesylate 2 mg 07/18/18 12:00 07/24/18 10:05 Cardura PO 2 mg QDAY HE Administration Famotidine 20 mg 07/16/18 22:00 07/24/18 10:05 Pepcid PO 20 mg BID HE Administration Fentanyl 50 mcg 07/12/18 00:26 07/20/18 09:02 Sublimaze IV 50 mcg Q10MIN PRN Administration ANALGESIA Heparin Sodium (Porcine) 5,000 unit 07/20/18 10:00 07/24/18 10:04 Heparin SUB-Q 5,000 unit BID HE Administration Hydrophilic Ointment 1 applic 07/12/18 13:30 Vaseline Lip Therapy TP Q2HR PRN Dry Lips Fentanyl Citrate 2,000 mcg in 100 mls @ 3.065 mls/hr 07/12/18 01:00 07/24/18 10:00 Fentanyl Drip Premix IV 4 mcg/kg/hr TITR HE 12.26 mls/hr Administration Protocol 1 MCG/KG/HR Propofol 1,000 mg in 100 mls @ 1.839 mls/hr 07/12/18 01:00 07/24/18 04:37 Diprivan 10 Mg/Ml IV 30 mcg/kg/min TITR HE 11.034 mls/hr Administration Protocol 5 MCG/KG/MIN Linezolid 600 mg in 300 mls @ 300 mls/hr 07/15/18 14:00 07/24/18 10:22 Zyvox 600mg/300ml IV 07/24/18 23:59 300 mls/hr Q12HR HE Administration Protocol Midazolam HCl 100 mg/ Sodium 100 mls @ 2 mls/hr 07/18/18 13:30 07/24/18 01:53 Chloride IV 5 mg/hr TITR HE 5 mls/hr Administration Protocol 2 MG/HR Sodium Chloride 1,000 mls @ 42 mls/hr 07/23/18 11:00 07/23/18 12:01 Nacl 0.9% 1000 Ml IV 42 mls/hr DIRECT HE Administration Trimethoprim/Sulfamethoxazole 268.75 mls @ 350 mls/hr 07/24/18 12:00 300 mg/ Dextrose IV Q6HR HE Protocol Methylprednisolone Sodium Succinate 40 mg 07/16/18 14:00 07/24/18 06:12 Solu-Medrol IV 40 mg Q8HR HE Administration Midazolam HCl 2 mg 07/16/18 13:06 07/18/18 13:32 Versed IV 2 mg Q2H PRN Administration AGITATION Midazolam HCl 2 mg 07/18/18 12:44 Versed IV Q10MIN PRN Sedation Multi-Ingred Cream/Lotion/Oil/Oint 1 applic 07/12/18 13:30 Artificial Tears Ophth Oint OU Q4HR PRN Dry Eye(s) Quetiapine Fumarate 200 mg 07/22/18 22:00 07/24/18 13:32 Seroquel PO 200 mg BID HE Administration Quetiapine Fumarate 50 mg 07/24/18 12:00 07/24/18 13:32 Seroquel PO 50 mg BID HE Administration Simple Syrup 15 ml 07/13/18 12:30 Simple Syrup FEEDTUBE PRN PRN Hypoglycemia Simple Syrup 30 ml 07/13/18 12:30 Simple Syrup FEEDTUBE PRN PRN Hypoglycemia Sodium Bicarbonate 325 mg 07/13/18 12:30 Sodium Bicarbonate FEEDTUBE PRN PRN For Clogged Feeding Tube Sodium Chloride 10 ml 07/11/18 22:00 07/24/18 04:38 Sodium Chloride Flush Syringe 10 Ml IV 10 ml BID HE Administration Sodium Chloride 10 ml 07/11/18 17:16 07/18/18 09:00 Sodium Chloride Flush Syringe 10 Ml IV 10 ml PRN PRN Administration LINE FLUSH Nutrition/Malnutrition Assess - Dietary Evaluation Nutrition/Malnutrition Findings: Nutrition Notes Start: 07/12/18 09:38 Freq: Status: Active Protocol: Document 07/23/18 14:02 EVARISTO (Rec: 07/23/18 14:03 EVARISTO [email or web address]) Nutrition Notes Initial or Follow up Reassessment Current Diagnosis Sepsis,Respiratory Failure Other Pertinent Diagnosis Bilat pneu, HIV/AIDS, Diarrhea Current Diet TF - Vital AF 1.2 at 65ml/hr Labs/Tests Na 125 K 5.3 (been elevated since ) Pertinent Medications Propofol at 3.49ml/hr (92 kcal ) Height 5 ft 11 in Weight 65.1 kg [place] Body Weight (kg) 78.18 BMI 20.0 Weight change and time frame Current wt obtained from bed scale Subjective/Other Information TF infusing at goal rate. Pt remains on vent support. Percent of energy/protein needs met: 97% energy 100% pro Burn Absent Trauma Absent #2 Nutrition Diagnosis Inadequate oral intake Diagnosis Progress(for reassessment Continues documentation) #1 Nutrition Diagnosis Malnutrition Diagnosis Progress(for reassessment Continues documentation) Is patient on ventilator? Yes Is Patient Ambulatory and/or Out of Bed No REE-([facility]-confined to bed) 1926.420 Calculation Used for Recommendations [facility] Additional Notes Pro needs 1.2-2g/k-130g/ day Fluid needs 1ml/kcal Nutrition Intervention Nutrition Support: Vital 1.2 at 65 mL/hr Flush 100 mL q 4 hr Kcal 1,872 Protein (gm) 117 Fluid (mL) 1,265 Goal #1 TF tolerance Goal #2 TF to meet 90-100% energy and pro needs Goal #3 Wt maintenance and/or gain Follow-Up By: 07/25/18 Additional Comments F/U: K lab; need to change to low K formula?
[2018-07-24] MEDS: VALGANCICLOVIR FEEDTUBE SCH ×2 (17:30→23:16)
[2018-07-24] MEDS: D5W IV SCH ×3 (19:58→23:37)
[2018-07-24] MEDS: BACTRIM IV SCH ×3 (19:58→23:37)
[2018-07-25] MEDS: fentaNYL DRIP Premix 2,000 MCG/100 ML BAG IV SCH ×3 (01:22→18:14)
[2018-07-25] MEDS: DIPRIVAN 10 MG/ML 1,000 MG/100 ML BOTTLE IV SCH ×4 (03:01→21:05)
[2018-07-25] MEDS: SOLU-Medrol IV SCH ×3 (05:38→21:22)
[2018-07-25] MEDS: BACTRIM IV SCH ×3 (05:55→18:14)
[2018-07-25] MEDS: D5W IV SCH ×3 (05:55→18:14)
[2018-07-25] MEDS: SODIUM CHLORIDE FLUSH SYRINGE 10 ML IV SCH ×3 (07:20→21:24)
--- NOTE | 2018-07-25 08:52 | Progress Note ---
Assessment and Plan Patient is a 37 yo man with a history of HIV and tobacco dependency who presents from [facility] to [facility] ED with sob and cough. Pt admitted to [facility] and initiated on Pneumonia protocol. In the ED, temp 99.8, HR 104, R 29, O2 sat 77%, BP 94/50. WBC 6.1, Hg 9.6, Plat 398. Creat 0.6. Blood culture 07/11/2018 no growth today. Sputum culture 07/11/2018 no growth today. Chest CT showed bilateral patchy and somewhat confluent alveolar infiltrates and interstitial infiltrates. No effusions. Mild cardiomegaly. Patient required emergent intubation following admission to the IM. Patient unfortunately has remained on full ventilatory support and very resistant hypoxia currently on high level FIO2.Patient unfortunately has remained on full ventilatory support and very resistant hypoxia currently on high level FIO2. * CT head: No CT evidence of acute intracranial abnormality. Pansinus disease * CTA CHEST: IMPRESSION: No pulmonary embolus. Bilateral patchy and somewhat confluent alveolar infiltrates and interstitial infiltrates. Noeffusions. Mild cardiomegaly. Runnings likely reflect a viral pneumonia or inhalational process * CXR IMPRESSION: Heart size is normal.There are bilateral lower lobe infiltrates. These are slightly worse than the prior study.. There is no pleural effusion or pneumothorax. Endotracheal tube is in the mid trachea. NG tube is in the stomach. There is a right-sided PICC line. The tip is in the superior vena cava.. 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 Severe Protein Malnutrition: Patient Scheduler to follow AIDS with history of noncompliance: ID following AOCD: monitor cbc closely acute blood loss anemia: Transfuse 2 units prbc and monitor Elevated d/DIMER- NO PE noted on CTA chest Restraint renewed today on 07/25/18 From Intermediate, no NOK/family listed, Case management to find NOK; this week start to consider trach/peg poor prognosis CCT 31 minutes The high probability of a clinically significant, sudden or life threatening deterioration of the [pulmonary, system(s) required my full and direct attention, intervention and personal management. The aggregate critical care time was [50] minutes. This time is in addition to time spent performing reported procedures but includes the following: [x] Data Review and interpretation [x] Patient assessment and monitoring of vital signs [x] Documentation [x] Medication orders and management Subjective Date of service: 07/25/18 Principal diagnosis: Acute hypoxemic resp failure; Bilateral pneumonia (PJP); HIV/AIDS Interval history: Alert,trying to fight the tube,Tryng to say something.Afebrile, Had a small BM.No seizures Objective - Exam Narrative Exam: Intubated,on vent support,TV 350 Fio2 45 percent rate 30 - Constitutional Vitals: Vital Signs - 12hr 07/24/18 07/24/18 07/24/18 21:00 22:00 22:15 Temperature Pulse Rate 98 H 122 H 123 H Pulse Rate [ From Monitor] Respiratory 15 21 22 Rate Blood Pressure 128/89 167/99 156/95 O2 Sat by Pulse 94 89 91 Oximetry 07/24/18 07/25/18 07/25/18 23:01 00:00 01:00 Temperature 98.1 F Pulse Rate 128 H 117 H 113 H Pulse Rate [ 117 H From Monitor] Respiratory 14 23 17 Rate Blood Pressure 112/55 108/65 109/61 O2 Sat by Pulse 91 92 91 Oximetry 07/25/18 07/25/18 07/25/18 01:25 02:00 03:00 Temperature Pulse Rate 112 H 126 H 118 H Pulse Rate [ From Monitor] Respiratory 32 H 27 H Rate Blood Pressure 104/66 131/81 128/80 O2 Sat by Pulse 94 87 94 Oximetry 07/25/18 07/25/18 07/25/18 03:17 04:00 05:00 Temperature 98.4 F Pulse Rate 112 H 112 H 115 H Pulse Rate [ 112 H From Monitor] Respiratory 14 16 Rate Blood Pressure 99/56 102/57 103/65 O2 Sat by Pulse 96 95 95 Oximetry 07/25/18 07/25/18 07/25/18 06:01 07:00 08:00 Temperature Pulse Rate 125 H 121 H 126 H Pulse Rate [ 120 H From Monitor] Respiratory 32 H 34 H 36 H Rate Blood Pressure 137/81 131/78 146/86 O2 Sat by Pulse 91 92 90 Oximetry General appearance: Present: no acute distress, well-nourished - EENT Eyes: PERRL, EOM intact ENT: hearing intact, clear oral mucosa Ears: bilateral: normal - Neck Neck: supple, normal ROM - Respiratory Respiratory effort: normal Respiratory: bilateral: CTA, rhonchi - Breasts Breasts: normal - Cardiovascular Rhythm: regular Heart Sounds: Present: S1 & S2. Absent: gallop, rub Extremities: no ischemia, pulses intact, No edema, normal color, Full ROM - Gastrointestinal General gastrointestinal: Present: soft, non-tender, non-distended, normal bowel sounds - Genitourinary Male genitourinary: normal - Integumentary Integumentary: clear, warm, dry - Musculoskeletal Musculoskeletal: strength equal bilaterally, generalized weakness - Neurologic Neurologic: CNII-XII intact, moves all extremities - Psychiatric Psychiatric: other (Intubated) - Labs CBC & Chem 7: 07/24/18 04:30 07/24/18 04:30 Labs: Abnormal lab results 07/24/18 Range/Units 07:50 Crossmatch See Detail
[2018-07-25] MEDS: VERSED IV PRN ×2 (09:16→17:17)
[2018-07-25] MEDS: COLACE PO SCH ×2 (09:17→21:22)
[2018-07-25] MEDS: HEPARIN SUB-Q SCH ×2 (09:17→21:24)
[2018-07-25] MEDS: CARDURA PO SCH (09:17)
[2018-07-25] MEDS: PEPCID PO SCH ×2 (09:18→21:22)
--- NOTE | 2018-07-25 09:56 | Progress Note ---
Assessment and Plan Acute Hypoxic respiratory failure on mechanical ventilation Severe sepsis with septic shock Severe ARDS Sepsis present on admission with grater than 2 SOFA criteria PJP (pneumocystis jiroveci pneumonia) Diarrhea Hyponatermia Syndrome Hyperkalemia Moderate Protein Malnutrition AIDS ANEMIA Elevated d/DIMER- NO PE noted Nicotine dependance/Tobacco use disorder Continue to wean PEEP slowly, once PEEP is down to 6, start SBT trials. FIO2 is currently at 45% If unable to liberate from MVS in the next 3-4 days, will need to discuss tracheostomy placement Continue all supportive Daily ABG and CXR for next 2-3 days Discussed extensively in ICU-IDT rounds Continue all care as documented below -Transfuse to keep HgB>7g/dL -Titrate sedation to RASS of 0 to -1 -VAP bundle addressed - Continue lung protective strategies per ARDS net protocol -Permissive hypercapnia is acceptable - Antibiotics, anti-infectives per ID service. -ART per ID service, Antibiotic prophylaxis for OI per ID - Continue bronchodilators with pulmonary hygiene per RT - Continue full MVS -Daily CXR and ABG for now -Wean FIO2 for O2 sats>90%, at FIO2 of 45% at this time. Slowly wean PEEP, does not tolerate decreases in PEEP well - Monitor renal indices closely - Avoid nephrotoxic agents - Strict intake and output monitoring - Tube feedings, on Vital AF at 65ml/hour - Aspiration precautions. HOB >40 -Stress ulcer prophylaxis -VTE prophylaxis - Accuchecks with glycemic control. Target glucose of 140-180 mg/dL -Supportive transfusions as indicated for HgB<7g/dL - Maintenance of sleep -wake cycle - Mobility as tolerated by hemodynamics - Influenza and pneumonia vaccination per protocol ..care plan discussed at length with RN/RT at the bedside -Discussed in ICU-IDT rounds The high probability of a clinically significant, sudden or life threatening deterioration of the [pulmonary, cardiovascular] system(s) required my full and direct attention, intervention and personal management. The aggregate critical care time was [35] minutes. This time is in addition to time spent performing reported procedures but includes the following: [x] Data Review and interpretation [x] Patient assessment and monitoring of vital signs [x] Documentation [x] Medication orders and management Subjective Date of service: 07/25/18 Principal diagnosis: Acute hypoxemic resp failure; Bilateral pneumonia (PJP); HIV/AIDS Interval history: Patient is seen today for: Acute hypoxemic respiratory failure, on mechanical ventilatory support; Bilateral pneumonia, high suspicion for Pneumocystis jiroveci pneumonia; Human immunodeficiency virus/acquired immunodeficiency syndrome,noncompliant with therapy; Hyponatremia; Severe protein calorie malnutrition. Seen and examined at bedside; 24-hour events reviewed; nursing and respiratory care staff consulted; no adverse overnight events reported to me; remains critically ill with high ventilatory demands and on critical drips. Awake and alert, attempting to vocalize. Continues to require propofol, fentanyl and midazolam at maximal dose, yet RASS is at 1. No fevers, tolerating tube feedings, weaning FIO2, tolerating slow weaning of PEEP Objective Vital Signs - 12hr 07/24/18 07/24/18 07/24/18 22:00 22:15 23:01 Temperature Pulse Rate 122 H 123 H 128 H Pulse Rate [ From Monitor] Respiratory 21 22 14 Rate Blood Pressure 167/99 156/95 112/55 O2 Sat by Pulse 89 91 91 Oximetry 07/25/18 07/25/18 07/25/18 00:00 01:00 01:25 Temperature 98.1 F Pulse Rate 117 H 113 H 112 H Pulse Rate [ 117 H From Monitor] Respiratory 23 17 Rate Blood Pressure 108/65 109/61 104/66 O2 Sat by Pulse 92 91 94 Oximetry 07/25/18 07/25/18 07/25/18 02:00 03:00 03:17 Temperature Pulse Rate 126 H 118 H 112 H Pulse Rate [ From Monitor] Respiratory 32 H 27 H Rate Blood Pressure 131/81 128/80 99/56 O2 Sat by Pulse 87 94 96 Oximetry 07/25/18 07/25/18 07/25/18 04:00 05:00 06:01 Temperature 98.4 F Pulse Rate 112 H 115 H 125 H Pulse Rate [ 112 H From Monitor] Respiratory 14 16 32 H Rate Blood Pressure 102/57 103/65 137/81 O2 Sat by Pulse 95 95 91 Oximetry 07/25/18 07/25/18 07/25/18 07:00 08:00 08:12 Temperature 99.1 F Pulse Rate 121 H 126 H 118 H Pulse Rate [ 120 H From Monitor] Respiratory 34 H 36 H Rate Blood Pressure 131/78 146/86 158/93 O2 Sat by Pulse 92 90 93 Oximetry 07/25/18 07/25/18 09:00 09:17 Temperature Pulse Rate 126 H 118 H Pulse Rate [ From Monitor] Respiratory 35 H Rate Blood Pressure 157/94 158/93 O2 Sat by Pulse 93 Oximetry Constitutional: appears uncomfortable, other (young AAM; normocephalic and atraumatic) Eyes: non-icteric ENT: oropharynx moist, other (ETT 23 cm SHONA) Neck: supple, no lymphadenopathy, no JVD Effort: mildly labored Ascultation: Bilateral: diminished breath sounds, rales Percussion: Bilateral: not dull Cardiovascular: regular rate and rhythm, other (S1,S2, no murmurs, gallops or rubs) Gastrointestinal: normoactive bowel sounds, soft, non-tender, non-distended Integumentary: normal Extremities: no cyanosis, no edema, pulses normal, no ischemia or petechiae Neurologic: normal mental status, non-focal exam, pupils equal and round, CN II- XII normal, motor strength normal and Psychiatric: anxious CBC and BMP: 07/26/18 05:50 07/26/18 05:50 ABG, PT/INR, D-dimer: ABG POC ABG pH 7.370 (7.35-7.45) 07/25/18 04:21 POC ABG pO2 98 (80-105) 07/25/18 04:21 POC ABG HCO3 43.8 (22-26 mml/L) 07/25/18 04:21 POC ABG Total CO2 46 (23-27mmol/L) 07/25/18 04:21 POC ABG O2 Sat 97 07/25/18 04:21 PT/INR, D-dimer 1298.70 ng/mlDDU (0-234) H 07/11/18 15:04 Abnormal lab findings: Abnormal Labs 07/11/18 07/11/18 07/11/18 14:06 14:06 15:04 RBC 3.30 L Hgb 9.6 L Hct 28.7 L RDW Lymph % (Auto) Lymph # Seg Neutrophils % Abs Lymphs (Manual) D-Dimer 1298.70 H POC ABG pH POC ABG pCO2 POC ABG pO2 Sodium 132 L Potassium Chloride Carbon Dioxide Creatinine 0.6 L Glucose 103 H POC Glucose Calcium 7.3 L Lactate Dehydrogenase C-Reactive Protein Albumin 2.1 L Lymph Enumerat CD4/CD8 % CD3 Cells Absolute CD3 Count % CD4 Cells Absolute CD4 Count % CD8 Cells Absolute CD8 Count % CD19 Cells Absolute CD19 Count HIV-1 RNA PCR copies/ml HIV-1 RNA (PCR) log Miscellaneous Test Crossmatch 07/11/18 07/11/18 07/12/18 17:36 22:15 00:25 RBC Hgb Hct RDW Lymph % (Auto) Lymph # Seg Neutrophils % Abs Lymphs (Manual) D-Dimer POC ABG pH 7.289 L POC ABG pCO2 POC ABG pO2 66 L Sodium Potassium Chloride Carbon Dioxide Creatinine Glucose POC Glucose Calcium Lactate Dehydrogenase 591 H C-Reactive Protein Albumin Lymph Enumerat CD4/CD8 % CD3 Cells Absolute CD3 Count % CD4 Cells Absolute CD4 Count % CD8 Cells Absolute CD8 Count % CD19 Cells Absolute CD19 Count HIV-1 RNA PCR copies/ml HIV-1 RNA (PCR) log Miscellaneous Test see below H Crossmatch 07/12/18 07/12/18 07/12/18 00:41 05:37 19:29 RBC Hgb Hct RDW Lymph % (Auto) Lymph # Seg Neutrophils % Abs Lymphs (Manual) D-Dimer POC ABG pH 7.302 L 7.275 L POC ABG pCO2 47.1 H POC ABG pO2 Sodium Potassium Chloride Carbon Dioxide Creatinine Glucose POC Glucose Calcium Lactate Dehydrogenase 731 H C-Reactive Protein Albumin Lymph Enumerat CD4/CD8 % CD3 Cells Absolute CD3 Count % CD4 Cells Absolute CD4 Count % CD8 Cells Absolute CD8 Count % CD19 Cells Absolute CD19 Count HIV-1 RNA PCR copies/ml HIV-1 RNA (PCR) log Miscellaneous Test Crossmatch 07/12/18 07/12/18 07/13/18 19:29 19:29 04:03 RBC Hgb Hct RDW Lymph % (Auto) Lymph # Seg Neutrophils % Abs Lymphs (Manual) 220 L D-Dimer POC ABG pH 7.254 L POC ABG pCO2 49.2 H POC ABG pO2 Sodium Potassium Chloride Carbon Dioxide Creatinine Glucose POC Glucose Calcium Lactate Dehydrogenase C-Reactive Protein Albumin Lymph Enumerat CD4/CD8 0.04 L % CD3 Cells 88 H Absolute CD3 Count 194 L % CD4 Cells 3 L Absolute CD4 Count 7 L % CD8 Cells 75 H Absolute CD8 Count 177 L % CD19 Cells 4 L Absolute CD19 Count 9 L HIV-1 RNA PCR copies/ml 709851 H HIV-1 RNA (PCR) log 5.72 H Miscellaneous Test Crossmatch 07/13/18 07/13/18 07/13/18 05:46 12:23 18:31 RBC Hgb Hct RDW Lymph % (Auto) Lymph # Seg Neutrophils % Abs Lymphs (Manual) D-Dimer POC ABG pH POC ABG pCO2 POC ABG pO2 Sodium Potassium Chloride Carbon Dioxide Creatinine Glucose POC Glucose 68 L 106 H 112 H Calcium Lactate Dehydrogenase C-Reactive Protein Albumin Lymph Enumerat CD4/CD8 % CD3 Cells Absolute CD3 Count % CD4 Cells Absolute CD4 Count % CD8 Cells Absolute CD8 Count % CD19 Cells Absolute CD19 Count HIV-1 RNA PCR copies/ml HIV-1 RNA (PCR) log Miscellaneous Test Crossmatch 07/14/18 07/14/18 07/14/18 04:19 05:36 05:36 RBC 2.99 L Hgb 8.8 L Hct 25.7 L RDW 15.5 H Lymph % (Auto) Lymph # Seg Neutrophils % Abs Lymphs (Manual) D-Dimer POC ABG pH 7.337 L POC ABG pCO2 POC ABG pO2 Sodium 135 L Potassium Chloride Carbon Dioxide 21 L Creatinine 0.7 L Glucose 123 H POC Glucose Calcium 8.2 L Lactate Dehydrogenase C-Reactive Protein Albumin Lymph Enumerat CD4/CD8 % CD3 Cells Absolute CD3 Count % CD4 Cells Absolute CD4 Count % CD8 Cells Absolute CD8 Count % CD19 Cells Absolute CD19 Count HIV-1 RNA PCR copies/ml HIV-1 RNA (PCR) log Miscellaneous Test Crossmatch 07/14/18 07/14/18 07/14/18 12:14 14:33 17:18 RBC Hgb Hct RDW Lymph % (Auto) Lymph # Seg Neutrophils % Abs Lymphs (Manual) D-Dimer POC ABG pH 7.325 L POC ABG pCO2 POC ABG pO2 75 L Sodium Potassium Chloride Carbon Dioxide Creatinine Glucose POC Glucose 174 H 114 H Calcium Lactate Dehydrogenase C-Reactive Protein Albumin Lymph Enumerat CD4/CD8 % CD3 Cells Absolute CD3 Count % CD4 Cells Absolute CD4 Count % CD8 Cells Absolute CD8 Count % CD19 Cells Absolute CD19 Count HIV-1 RNA PCR copies/ml HIV-1 RNA (PCR) log Miscellaneous Test Crossmatch 07/15/18 07/15/18 07/15/18 00:17 12:29 12:29 RBC 2.64 L Hgb 7.5 L Hct 22.9 L RDW 15.4 H Lymph % (Auto) 7.0 L Lymph # 0.4 L Seg Neutrophils % 89.6 H Abs Lymphs (Manual) D-Dimer POC ABG pH POC ABG pCO2 POC ABG pO2 Sodium Potassium Chloride Carbon Dioxide Creatinine 0.6 L Glucose 124 H POC Glucose 113 H Calcium 7.3 L Lactate Dehydrogenase C-Reactive Protein Albumin Lymph Enumerat CD4/CD8 % CD3 Cells Absolute CD3 Count % CD4 Cells Absolute CD4 Count % CD8 Cells Absolute CD8 Count % CD19 Cells Absolute CD19 Count HIV-1 RNA PCR copies/ml HIV-1 RNA (PCR) log Miscellaneous Test Crossmatch 07/15/18 07/16/18 07/16/18 14:09 04:46 07:21 RBC Hgb Hct RDW Lymph % (Auto) Lymph # Seg Neutrophils % Abs Lymphs (Manual) D-Dimer POC ABG pH 7.282 L POC ABG pCO2 52.6 H POC ABG pO2 63 L Sodium Potassium Chloride Carbon Dioxide Creatinine Glucose POC Glucose Calcium Lactate Dehydrogenase C-Reactive Protein 2.70 H Albumin Lymph Enumerat CD4/CD8 % CD3 Cells Absolute CD3 Count % CD4 Cells Absolute CD4 Count % CD8 Cells Absolute CD8 Count % CD19 Cells Absolute CD19 Count HIV-1 RNA PCR copies/ml HIV-1 RNA (PCR) log Miscellaneous Test Flexitest 1 H Crossmatch 07/16/18 07/16/18 07/16/18 07:21 07:21 16:16 RBC 2.48 L Hgb 7.2 L Hct 21.5 L RDW 15.7 H Lymph % (Auto) Lymph # Seg Neutrophils % Abs Lymphs (Manual) D-Dimer POC ABG pH 7.251 L POC ABG pCO2 62.2 H POC ABG pO2 Sodium 136 L Potassium Chloride Carbon Dioxide Creatinine 0.6 L Glucose 118 H POC Glucose Calcium 7.5 L Lactate Dehydrogenase C-Reactive Protein Albumin Lymph Enumerat CD4/CD8 % CD3 Cells Absolute CD3 Count % CD4 Cells Absolute CD4 Count % CD8 Cells Absolute CD8 Count % CD19 Cells Absolute CD19 Count HIV-1 RNA PCR copies/ml HIV-1 RNA (PCR) log Miscellaneous Test Crossmatch 07/17/18 07/18/18 07/18/18 04:01 01:10 03:10 RBC 2.20 L Hgb 6.5 L Hct 19.2 L* RDW 16.0 H Lymph % (Auto) 7.2 L Lymph # 0.5 L Seg Neutrophils % 89.9 H Abs Lymphs (Manual) D-Dimer POC ABG pH 7.245 L POC ABG pCO2 63.8 H POC ABG pO2 75 L Sodium Potassium Chloride Carbon Dioxide Creatinine Glucose POC Glucose Calcium Lactate Dehydrogenase C-Reactive Protein Albumin Lymph Enumerat CD4/CD8 % CD3 Cells Absolute CD3 Count % CD4 Cells Absolute CD4 Count % CD8 Cells Absolute CD8 Count % CD19 Cells Absolute CD19 Count HIV-1 RNA PCR copies/ml HIV-1 RNA (PCR) log Miscellaneous Test Crossmatch See Detail 07/18/18 07/18/18 07/18/18 04:54 05:02 12:59 RBC Hgb Hct RDW Lymph % (Auto) Lymph # Seg Neutrophils % Abs Lymphs (Manual) D-Dimer POC ABG pH 7.615 H POC ABG pCO2 32.6 L 48.8 H POC ABG pO2 79 L 118 H Sodium Potassium Chloride Carbon Dioxide Creatinine Glucose POC Glucose 164 H Calcium Lactate Dehydrogenase C-Reactive Protein Albumin Lymph Enumerat CD4/CD8 % CD3 Cells Absolute CD3 Count % CD4 Cells Absolute CD4 Count % CD8 Cells Absolute CD8 Count % CD19 Cells Absolute CD19 Count HIV-1 RNA PCR copies/ml HIV-1 RNA (PCR) log Miscellaneous Test Crossmatch 07/18/18 07/18/18 07/19/18 18:25 20:39 03:53 RBC Hgb Hct RDW Lymph % (Auto) Lymph # Seg Neutrophils % Abs Lymphs (Manual) D-Dimer POC ABG pH 7.339 L POC ABG pCO2 59.9 H 65.0 H POC ABG pO2 69 L Sodium Potassium Chloride Carbon Dioxide Creatinine Glucose POC Glucose 155 H Calcium Lactate Dehydrogenase C-Reactive Protein Albumin Lymph Enumerat CD4/CD8 % CD3 Cells Absolute CD3 Count % CD4 Cells Absolute CD4 Count % CD8 Cells Absolute CD8 Count % CD19 Cells Absolute CD19 Count HIV-1 RNA PCR copies/ml HIV-1 RNA (PCR) log Miscellaneous Test Crossmatch 07/19/18 07/19/18 07/19/18 08:10 08:10 10:52 RBC 2.51 L Hgb 7.4 L Hct 22.0 L RDW 15.5 H Lymph % (Auto) Lymph # Seg Neutrophils % Abs Lymphs (Manual) D-Dimer POC ABG pH POC ABG pCO2 POC ABG pO2 Sodium 130 L Potassium Chloride 89.0 L Carbon Dioxide 33 H Creatinine 0.4 L Glucose 150 H POC Glucose 173 H Calcium 7.5 L Lactate Dehydrogenase C-Reactive Protein Albumin Lymph Enumerat CD4/CD8 % CD3 Cells Absolute CD3 Count % CD4 Cells Absolute CD4 Count % CD8 Cells Absolute CD8 Count % CD19 Cells Absolute CD19 Count HIV-1 RNA PCR copies/ml HIV-1 RNA (PCR) log Miscellaneous Test Crossmatch 07/19/18 07/19/18 07/20/18 17:06 23:47 04:37 RBC Hgb Hct RDW Lymph % (Auto) Lymph # Seg Neutrophils % Abs Lymphs (Manual) D-Dimer POC ABG pH POC ABG pCO2 58.5 H POC ABG pO2 67 L Sodium Potassium Chloride Carbon Dioxide Creatinine Glucose POC Glucose 117 H 114 H Calcium Lactate Dehydrogenase C-Reactive Protein Albumin Lymph Enumerat CD4/CD8 % CD3 Cells Absolute CD3 Count % CD4 Cells Absolute CD4 Count % CD8 Cells Absolute CD8 Count % CD19 Cells Absolute CD19 Count HIV-1 RNA PCR copies/ml HIV-1 RNA (PCR) log Miscellaneous Test Crossmatch 07/20/18 07/20/18 07/21/18 06:20 06:20 04:18 RBC 2.69 L Hgb 7.8 L Hct 23.6 L RDW 15.5 H Lymph % (Auto) Lymph # Seg Neutrophils % Abs Lymphs (Manual) D-Dimer POC ABG pH 7.456 H POC ABG pCO2 60.4 H POC ABG pO2 64 L Sodium 134 L Potassium Chloride 89.2 L Carbon Dioxide 38 H Creatinine 0.7 L D Glucose 120 H POC Glucose Calcium 7.6 L Lactate Dehydrogenase C-Reactive Protein Albumin Lymph Enumerat CD4/CD8 % CD3 Cells Absolute CD3 Count % CD4 Cells Absolute CD4 Count % CD8 Cells Absolute CD8 Count % CD19 Cells Absolute CD19 Count HIV-1 RNA PCR copies/ml HIV-1 RNA (PCR) log Miscellaneous Test Crossmatch 07/21/18 07/21/18 07/22/18 04:35 04:35 04:16 RBC 2.62 L 2.37 L Hgb 7.7 L 7.0 L Hct 23.1 L 21.1 L RDW 15.4 H Lymph % (Auto) Lymph # Seg Neutrophils % Abs Lymphs (Manual) D-Dimer POC ABG pH POC ABG pCO2 POC ABG pO2 Sodium 129 L Potassium 5.3 H Chloride 85.3 L Carbon Dioxide 38 H Creatinine 0.4 L Glucose 108 H POC Glucose Calcium 8.0 L Lactate Dehydrogenase C-Reactive Protein Albumin Lymph Enumerat CD4/CD8 % CD3 Cells Absolute CD3 Count % CD4 Cells Absolute CD4 Count % CD8 Cells Absolute CD8 Count % CD19 Cells Absolute CD19 Count HIV-1 RNA PCR copies/ml HIV-1 RNA (PCR) log Miscellaneous Test Crossmatch 07/22/18 07/23/18 07/23/18 04:16 03:25 12:45 RBC Hgb Hct RDW Lymph % (Auto) Lymph # Seg Neutrophils % Abs Lymphs (Manual) D-Dimer POC ABG pH POC ABG pCO2 69.4 H POC ABG pO2 Sodium 132 L 125 L D Potassium 5.4 H 5.3 H Chloride 87.4 L 80.3 L Carbon Dioxide 38 H 38 H Creatinine 0.4 L 0.3 L Glucose 117 H 124 H POC Glucose Calcium 7.5 L 7.4 L Lactate Dehydrogenase C-Reactive Protein Albumin Lymph Enumerat CD4/CD8 % CD3 Cells Absolute CD3 Count % CD4 Cells Absolute CD4 Count % CD8 Cells Absolute CD8 Count % CD19 Cells Absolute CD19 Count HIV-1 RNA PCR copies/ml HIV-1 RNA (PCR) log Miscellaneous Test Crossmatch 07/23/18 07/24/18 07/24/18 23:52 04:30 04:30 RBC 2.12 L Hgb 6.3 L Hct 18.9 L* RDW Lymph % (Auto) Lymph # Seg Neutrophils % Abs Lymphs (Manual) D-Dimer POC ABG pH POC ABG pCO2 POC ABG pO2 Sodium 127 L Potassium 5.2 H Chloride 83.9 L Carbon Dioxide 39 H Creatinine 0.3 L Glucose POC Glucose 118 H Calcium 7.5 L Lactate Dehydrogenase C-Reactive Protein Albumin Lymph Enumerat CD4/CD8 % CD3 Cells Absolute CD3 Count % CD4 Cells Absolute CD4 Count % CD8 Cells Absolute CD8 Count % CD19 Cells Absolute CD19 Count HIV-1 RNA PCR copies/ml HIV-1 RNA (PCR) log Miscellaneous Test Crossmatch 07/24/18 07/24/18 07/24/18 05:11 05:30 07:50 RBC Hgb Hct RDW Lymph % (Auto) Lymph # Seg Neutrophils % Abs Lymphs (Manual) D-Dimer POC ABG pH 7.462 H POC ABG pCO2 58.7 H POC ABG pO2 79 L Sodium Potassium Chloride Carbon Dioxide Creatinine Glucose POC Glucose 145 H Calcium Lactate Dehydrogenase C-Reactive Protein Albumin Lymph Enumerat CD4/CD8 % CD3 Cells Absolute CD3 Count % CD4 Cells Absolute CD4 Count % CD8 Cells Absolute CD8 Count % CD19 Cells Absolute CD19 Count HIV-1 RNA PCR copies/ml HIV-1 RNA (PCR) log Miscellaneous Test Crossmatch See Detail Allied health notes reviewed: nursing
[2018-07-25 09:57] LABS: Hemoglobin 9.1 gm/dl (11.8-15.2); Mean Corpuscular HGB Conc 34 % (32-34); Mean Corpuscular Volume 90 fl (84-94); Platelet Count 352 K/mm3 (140-440); Red Blood Count 2.99 M/mm3 (3.65-5.03); Red Cell Distribution Width 14.6 % (13.2-15.2)
[2018-07-25 10:17] LABS: BUN/Creatinine Ratio 47; Blood Urea Nitrogen 14 mg/dL (9-20); Hemolysis Index 11
[2018-07-25] MEDS: VALGANCICLOVIR FEEDTUBE SCH ×2 (10:28→21:23)
[2018-07-25 10:55] LABS: Anisocytosis 1+; Basophils % (Manual) 0 % (0.0-1.8); Eosinophils % (Manual) 0 % (0.0-4.3); Macrocytosis Few; Myelocytes # (Manual) 0.1 K/mm3; Target Cells Rare; Total Cells Counted 100
[2018-07-25 10:56] LABS: Platelet Estimate Consistent w Auto
--- NOTE | 2018-07-25 16:12 | Progress Note ---
Assessment and Plan Cultures: Blood culture 07/11/2018 no growth today. Cryptococcal antigen : negative MRSA PCR: positive Blood culture 07/15/2018: in progress Urine culture 07/15/2018: no growth in 24 hours Sputum culture 07/15/18: MRSA, Jannette CMV PCR 07/15/2018 33,392 copies Assessment: 37 y/o male currently in [place] [facility] with history of HIV infection of unknown duration, noncompliant with antiretroviral medication, severe malnutrition; admitted on 07/11/2018, brought by law enforcement, due to 2-week history of keesha rtness of breath, generalized weakness and productive cough: 1) Sepsis with new septic shock, off pressors. noted fever spike of 101.2 Etiology most likely pneumonia. Hepatitis panel negative. RPR nonreactive. CRP 2.7. Procalcitonin 3.09. Continue Cefepime and Linezolid. 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 CMV. Sputum culture 07/11/2018 no growth today. Chest CT showed bilateral patchy and somewhat confluent alveolar infiltrates and interstitial infiltrates. No effusions. Mild cardiomegaly. Sputum culture grew MRSA and Jannette. Completed linezolid x 10 days until 07/23. 3) HIV, presumed AIDS: Patient has not taken his HIV medication for at least 6 months prior due to his incarceration. On admission he reported 40lbs unintentional weight loss for 2 months and intermittent loose stools over the past 2 weeks. VL 523,000/ CD4=7. Pneumocytosis Jirovecii positive. 4) Diarrhea: ? possible opportunistic infection. 5) Acute respiratory failure: not better, from pneumonia. 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 on 07/15/2018 Recommendations: - continue valganciclovir 900 mg PO BID D3 to cover CMV viremia (No in stock), check CMV DNA PCR on 08/06 - Continue bactrim IV and solumedrol IV D - contact isolation for MRSA - HIV genotype Will follow Ana Kaur MD Infectious Diseases [employer] [facility] M [phone] O [phone] Subjective Date of service: 07/25/18 Principal diagnosis: Acute hypoxemic resp failure; Bilateral pneumonia (PJP); HIV/AIDS Interval history: Sedated, no fever, intubated, FiO2 45% p 10 ROS unable to obtain Objective - Exam Narrative Exam: General appearance: sedated on the ventilator Eyes: anicteric sclerae, moist conjunctivae; no lid-lag; PERRLA HENT: Atraumatic; oropharynx +ETT +NGT Neck: Trachea midline; supple, no thyromegaly or lymphadenopathy Lungs: ryland crackles CV: tachycardic Abdomen: Soft, non-tender; no masses or hepatosplenomegaly Extremities: No peripheral edema or extremity lymphadenopathy Skin: Normal temperature, turgor and texture; no rash, ulcers or subcutaneous nodules Psych: no agitated Neuro: sedated - Constitutional Vitals: Vital Signs Temp Pulse Resp BP Pulse Ox 98.8 F 118 H 30 H 125/81 94 07/25/18 12:00 07/25/18 15:53 07/25/18 15:00 07/25/18 15:53 07/25/18 15:53 Temperature -Last 24 Hours Temperature 98.8 F Temperature 99.1 F Temperature 98.4 F Temperature 98.1 F Temperature 97.7 F Temperature 37 F Temperature 96.8 F Temperature 97 F Temperature 97.1 F Temperature 96.5 F - Labs CBC & Chem 7: 07/25/18 09:30 07/25/18 09:30 Labs: Abnormal lab results 07/24/18 07/25/18 07/25/18 Range/Units 07:50 09:30 09:30 RBC 2.99 L (3.65-5.03) M/mm3 Hgb 9.1 L (11.8-15.2) gm/dl Hct 27.0 L D (35.5-45.6) % Sodium 131 L (137-145) mmol/L Potassium 5.1 H (3.6-5.0) mmol/L Chloride 84.4 L (98-107) mmol/L Carbon Dioxide 39 H (22-30) mmol/L Creatinine 0.3 L (0.8-1.5) mg/dL Glucose 133 H (75-100) mg/dL Calcium 8.0 L (8.4-10.2) mg/dL Crossmatch See Detail
[2018-07-25] MEDS: MIDAZOLAM 100 MG in NACL 0.9% 80 ML IV SCH (19:30)
[2018-07-26] MEDS: D5W IV SCH ×4 (00:29→17:43)
[2018-07-26] MEDS: BACTRIM IV SCH ×4 (00:29→17:43)
[2018-07-26 01:06] LABS: BUN/Creatinine Ratio 53; Blood Urea Nitrogen 16 mg/dL (9-20); Calcium 8.6 mg/dL (8.4-10.2); Hemolysis Index 4
[2018-07-26] MEDS: fentaNYL DRIP Premix 2,000 MCG/100 ML BAG IV SCH ×3 (02:36→19:40)
[2018-07-26] MEDS: DIPRIVAN 10 MG/ML 1,000 MG/100 ML BOTTLE IV SCH ×5 (02:36→22:40)
--- NOTE | 2018-07-26 03:52 | XRay Report ---
PROCEDURE: XR CHEST 1V AP TECHNIQUE: Chest radiograph single view. HISTORY: ARDS, acute hypoxic respiratory failure COMPARISONS: July 22 . FINDINGS: ET tube, NG tube and right-sided PICC line remain in place. Increasing airspace consolidation in the right lung base. Bilateral airspace disease otherwise unchanged. No other significant interval change. IMPRESSION: Increasing consolidation in the right lung base as compared to the prior examination. No other significant interval change. This document is electronically signed by Keegan Ceja MD., Jul 26 2018 03:50:53 AM ET
[2018-07-26] MEDS: SOLU-Medrol IV SCH ×3 (06:07→23:17)
[2018-07-26 06:16] LABS: Basophils % (Auto) 0.3 % (0.0-1.8); Eosinophils % (Auto) 0.1 % (0.0-4.3); Hematocrit 27.2 % (35.5-45.6); Hemoglobin 9.4 gm/dl (11.8-15.2); Lymphocytes # (Auto) 0.9 K/mm3 (1.2-5.4); Lymphocytes % (Auto) 10.4 % (13.4-35.0); Mean Corpuscular HGB Conc 35 % (32-34); Mean Corpuscular Volume 90 fl (84-94); Monocytes # (Auto) 0.4 K/mm3 (0.0-0.8); Platelet Count 399 K/mm3 (140-440); Red Blood Count 3.01 M/mm3 (3.65-5.03); Red Cell Distribution Width 14.9 % (13.2-15.2)
[2018-07-26 06:39] LABS: Alanine Aminotransferase 71 units/L (7-56); Albumin 2.5 g/dL (3.9-5); BUN/Creatinine Ratio 53; Blood Urea Nitrogen 16 mg/dL (9-20); Calcium 8.8 mg/dL (8.4-10.2); Hemolysis Index 7
[2018-07-26] MEDS: VERSED IV PRN ×2 (07:44→17:42)
--- NOTE | 2018-07-26 08:12 | Progress Note ---
Assessment and Plan Cultures: Blood culture 07/11/2018 no growth today. Cryptococcal antigen : negative MRSA PCR: positive Blood culture 07/15/2018: in progress Urine culture 07/15/2018: no growth in 24 hours Sputum culture 07/15/18: MRSA, Jannette CMV PCR 07/15/2018 33,392 copies Assessment: 37 y/o male currently in senior living with history of HIV infection of unknown duration, noncompliant with antiretroviral medication, severe malnutrition; admitted on 07/11/2018, brought by law enforcement, due to 2-week history of keesha rtness of breath, generalized weakness and productive cough: 1) Sepsis with new septic shock, off pressors. no fever. Etiology most likely pneumonia. Hepatitis panel negative. RPR nonreactive. CRP 2.7. Procalcitonin 3.09. 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 CMV. Sputum culture 07/11/2018 no growth today. Chest CT showed bilateral patchy and somewhat confluent alveolar infiltrates and interstitial infiltrates. No effusions. Mild cardiomegaly. Sputum culture grew MRSA and Jannette. Completed linezolid x 10 days until 07/23. 3) HIV, presumed AIDS: Patient has not taken his HIV medication for at least 6 months prior due to his incarceration. On admission he reported 40lbs unintentional weight loss for 2 months and intermittent loose stools over the past 2 weeks. VL 523,000/ CD4=7. Pneumocytosis Jirovecii positive. 4) Diarrhea: ? possible opportunistic infection. resolved 5) Acute respiratory failure: not better, from pneumonia. 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: - continue valganciclovir 900 mg PO BID D4 to cover CMV viremia, re-check CMV DNA PCR on 08/06 - Continue bactrim IV and solumedrol IV D - contact isolation for MRSA - HIV genotype pending - add azithromycin 1200 mg PO qweek for MAC prophylaxis Will follow Ana Kaur MD Infectious Diseases Data Coder Operator [facility] ([facility] M [phone] O [phone] Subjective Date of service: 07/26/18 Principal diagnosis: Acute hypoxemic resp failure; Bilateral pneumonia (PJP); HIV/AIDS Interval history: Sedated but alert, no fever, intubated, FiO2 45% p 8 ROS unable to obtain Objective - Exam Narrative Exam: General appearance: sedated on the ventilator Eyes: anicteric sclerae, moist conjunctivae; no lid-lag; PERRLA HENT: Atraumatic; oropharynx +ETT +NGT Neck: Trachea midline; supple, no thyromegaly or lymphadenopathy Lungs: ryland crackles CV: tachycardic Abdomen: Soft, non-tender; no masses or hepatosplenomegaly Extremities: No peripheral edema or extremity lymphadenopathy Skin: Normal temperature, turgor and texture; no rash, ulcers or subcutaneous nodules Psych: no agitated Neuro: sedated alert - Constitutional Vitals: Vital Signs Temp Pulse Resp BP Pulse Ox 97.7 F 120 H 36 H 139/98 93 07/26/18 08:00 07/26/18 07:00 07/26/18 07:00 07/26/18 07:00 07/26/18 07:00 Temperature -Last 24 Hours Temperature 97.7 F Temperature 98.6 F Temperature 98.1 F Temperature 98.9 F Temperature 98.5 F Temperature 98.8 F - Labs CBC & Chem 7: 07/26/18 05:50 07/26/18 05:50 Labs: Abnormal lab results 07/25/18 07/25/18 07/26/18 Range/Units 09:30 09:30 00:18 RBC 2.99 L (3.65-5.03) M/mm3 Hgb 9.1 L (11.8-15.2) gm/dl Hct 27.0 L D (35.5-45.6) % MCHC (32-34) % Lymph % (Auto) (13.4-35.0) % Lymph # (1.2-5.4) K/mm3 Seg Neutrophils % (40.0-70.0) % POC ABG pH (7.35-7.45) POC ABG pCO2 (35-45) POC ABG pO2 (80-105) Sodium 131 L 135 L (137-145) mmol/L Potassium 5.1 H 5.5 H (3.6-5.0) mmol/L Chloride 84.4 L 88.4 L (98-107) mmol/L Carbon Dioxide 39 H 38 H (22-30) mmol/L Creatinine 0.3 L 0.3 L (0.8-1.5) mg/dL Glucose 133 H (75-100) mg/dL Calcium 8.0 L (8.4-10.2) mg/dL AST (5-40) units/L ALT (7-56) units/L Total Protein (6.3-8.2) g/dL Albumin (3.9-5) g/dL 07/26/18 07/26/18 07/26/18 Range/Units 04:07 05:50 05:50 RBC 3.01 L (3.65-5.03) M/mm3 Hgb 9.4 L (11.8-15.2) gm/dl Hct 27.2 L (35.5-45.6) % MCHC 35 H (32-34) % Lymph % (Auto) 10.4 L (13.4-35.0) % Lymph # 0.9 L (1.2-5.4) K/mm3 Seg Neutrophils % 84.2 H (40.0-70.0) % POC ABG pH 7.456 H (7.35-7.45) POC ABG pCO2 61.4 H (35-45) POC ABG pO2 68 L (80-105) Sodium 131 L (137-145) mmol/L Potassium 5.1 H (3.6-5.0) mmol/L Chloride 84.5 L (98-107) mmol/L Carbon Dioxide 39 H (22-30) mmol/L Creatinine 0.3 L (0.8-1.5) mg/dL Glucose (75-100) mg/dL Calcium (8.4-10.2) mg/dL AST 78 H (5-40) units/L ALT 71 H (7-56) units/L Total Protein 6.0 L (6.3-8.2) g/dL Albumin 2.5 L (3.9-5) g/dL
[2018-07-26] MEDS: HEPARIN SUB-Q SCH ×2 (09:55→22:18)
[2018-07-26] MEDS: ZITHROMAX PO SCH (09:55)
[2018-07-26] MEDS: CARDURA PO SCH (09:56)
[2018-07-26] MEDS: SODIUM CHLORIDE FLUSH SYRINGE 10 ML IV SCH ×2 (09:59→22:32)
[2018-07-26] MEDS: PEPCID PO SCH ×2 (09:59→22:22)
[2018-07-26] MEDS: COLACE PO SCH ×2 (09:59→22:20)
[2018-07-26] MEDS: VALGANCICLOVIR FEEDTUBE SCH (09:59)
--- NOTE | 2018-07-26 12:35 | Progress Note ---
Assessment and Plan Acute hypoxemic respiratory failure, on mechanical ventilatory support. Bilateral pneumonia, high suspicion for Pneumocystis jiroveci pneumonia. Human immunodeficiency virus/acquired immunodeficiency syndrome,noncompliant wit h therapy. Hyponatremia. Severe protein calorie malnutrition. Elevated D-dimer. Tobacco use disorder. - consult placed for tracheostomy placement (ETT day # 15-16) - add miralax to bowel regimen - continue to wean supplemental oxygen to keep O2 sats 88-90% acutely - continue to wean Peep slowly but at - continue Seroquel bid dosing to spare IV sedatives (dose increased to 250mg bid) - PJP stain positive - continue current set rate at 30/min on MVS and TV 350 mls (LTVV /4-6mls/kg IBW) - ARDS ventilatory strategies with low TV - daily SAT's & SBT assessment as tolerated - continue bronchodilators with pulmonary hygiene per RT - continue GI & VTE prophylaxis - Lung protective strategies - prn CXR's at this point - VAP bundle addressed - Tracheal aspirate growing MRSA - continue Anti-infectives and ART per ID rec's - Chambers catheter placed for acute urinary retention. - Continue full MVS - Monitor renal indices closely - Avoid nephrotoxic agents, adjust all medications for CrCL - Strict intake and output monitoring - Tube feedings as tolerated - Accuchecks with glycemic control. Target glucose of 140-180 mg/dL - Maintenance of sleep -wake cycle - Mobility as tolerated by hemodynamics - Influenza and pneumonia vaccination per protocol ..care plan discussed at length with RN/RT at the bedside ..discussed in ICU-IDT rounds PROGNOSIS: GUARDED CONDITION: CRITICAL CODE STATUS: FULL CODE The high probability of a clinically significant, sudden or life-threatening deterioration of the [respiratory, neurology, renal] system(s) required my full and direct attention, intervention and personal management. The aggregate critical care time was [31] minutes without overlap. Time includes spent on; [x] Data Review and interpretation [x] Patient assessment and monitoring of vital signs [x] Documentation [x] Medication orders and management Subjective Date of service: 07/26/18 Principal diagnosis: Acute hypoxemic resp failure; Bilateral pneumonia (PJP); HIV/AIDS Interval history: Patient is seen today for: Acute hypoxemic respiratory failure, on mechanical ventilatory support; Bilateral pneumonia, high suspicion for Pneumocystis jiroveci pneumonia; Human immunodeficiency virus/acquired immunodeficiency syndrome,noncompliant with therapy; Hyponatremia; Severe protein calorie malnutrition. Seen and examined at bedside; 24-hour events reviewed; nursing and respiratory care staff consulted; no adverse overnight events reported to me; remains on MVS; FiO2 down to 50%; no emesis or overt aspiration; no gross bleeding; appropriate during sedation vacations Objective Vital Signs - 12hr 07/26/18 07/26/18 07/26/18 01:00 02:00 03:01 Temperature Pulse Rate 112 H 114 H 129 H Pulse Rate [ Anterior Bilateral Throughout] Pulse Rate [ From Monitor] Respiratory 41 H Rate Respiratory Rate [Anterior Bilateral Throughout] Blood Pressure 101/59 95/60 155/93 O2 Sat by Pulse 94 92 94 Oximetry 07/26/18 07/26/18 07/26/18 03:43 04:00 05:00 Temperature 98.6 F Pulse Rate 126 H 123 H 111 H Pulse Rate [ Anterior Bilateral Throughout] Pulse Rate [ 123 H From Monitor] Respiratory 32 H 32 H Rate Respiratory Rate [Anterior Bilateral Throughout] Blood Pressure 122/89 117/84 142/86 O2 Sat by Pulse 94 91 92 Oximetry 07/26/18 07/26/18 07/26/18 06:00 07:00 08:00 Temperature 97.7 F Pulse Rate 116 H 120 H 117 H Pulse Rate [ Anterior Bilateral Throughout] Pulse Rate [ 120 H From Monitor] Respiratory 29 H 36 H 36 H Rate Respiratory Rate [Anterior Bilateral Throughout] Blood Pressure 146/93 139/98 138/80 O2 Sat by Pulse 95 93 91 Oximetry 07/26/18 07/26/18 07/26/18 08:09 09:00 09:56 Temperature Pulse Rate 121 H 119 H 117 H Pulse Rate [ Anterior Bilateral Throughout] Pulse Rate [ From Monitor] Respiratory 35 H Rate Respiratory Rate [Anterior Bilateral Throughout] Blood Pressure 138/88 144/86 131/87 O2 Sat by Pulse 92 92 Oximetry 07/26/18 07/26/18 07/26/18 10:00 11:00 12:00 Temperature 98.8 F Pulse Rate 116 H 121 H Pulse Rate [ Anterior Bilateral Throughout] Pulse Rate [ 135 H From Monitor] Respiratory 17 30 H 35 H Rate Respiratory Rate [Anterior Bilateral Throughout] Blood Pressure 117/69 93/51 O2 Sat by Pulse 90 86 90 Oximetry 05/16/19 05/16/19 05/16/19 12:01 12:08 12:10 Temperature Pulse Rate 134 H 123 H Pulse Rate [ 120 H Anterior Bilateral Throughout] Pulse Rate [ From Monitor] Respiratory 38 H Rate Respiratory 30 H Rate [Anterior Bilateral Throughout] Blood Pressure 122/71 122/71 O2 Sat by Pulse 87 92 Oximetry Constitutional: no acute distress, other (young AAM; normocephalic and atraumatic) Eyes: non-icteric ENT: oropharynx moist, other (ETT 23 cm SHONA) Neck: supple, no lymphadenopathy, no JVD, other (no thyromegaly) Effort: mildly labored Ascultation: Bilateral: diminished breath sounds Percussion: Bilateral: not dull Cardiovascular: regular rate and rhythm, other (S1,S2, no murmurs, gallops or rubs) Gastrointestinal: normoactive bowel sounds, soft, non-tender, non-distended Integumentary: normal Extremities: no cyanosis, no edema, pulses normal, no ischemia or petechiae Neurologic: normal mental status, non-focal exam, pupils equal and round, CN II- XII normal, motor strength normal and Psychiatric: other (sedated) CBC and BMP: 07/26/18 05:50 07/26/18 05:50 ABG, PT/INR, D-dimer: ABG POC ABG pH 7.456 (7.35-7.45) H 07/26/18 04:07 POC ABG pCO2 61.4 (35-45) H 07/26/18 04:07 POC ABG pO2 68 (80-105) L 07/26/18 04:07 POC ABG HCO3 43.3 (22-26 mml/L) 07/26/18 04:07 POC ABG Total CO2 45 (23-27mmol/L) 07/26/18 04:07 POC ABG O2 Sat 93 07/26/18 04:07 PT/INR, D-dimer 1298.70 ng/mlDDU (0-234) H 07/11/18 15:04 Abnormal lab findings: Abnormal Labs 07/11/18 07/11/18 07/11/18 14:06 14:06 15:04 RBC 3.30 L Hgb 9.6 L Hct 28.7 L MCHC RDW Lymph % (Auto) Lymph # Seg Neutrophils % Abs Lymphs (Manual) D-Dimer 1298.70 H POC ABG pH POC ABG pCO2 POC ABG pO2 Sodium 132 L Potassium Chloride Carbon Dioxide Creatinine 0.6 L Glucose 103 H POC Glucose Calcium 7.3 L AST ALT Lactate Dehydrogenase C-Reactive Protein Total Protein Albumin 2.1 L Lymph Enumerat CD4/CD8 % CD3 Cells Absolute CD3 Count % CD4 Cells Absolute CD4 Count % CD8 Cells Absolute CD8 Count % CD19 Cells Absolute CD19 Count HIV-1 RNA PCR copies/ml HIV-1 RNA (PCR) log Miscellaneous Test Crossmatch 07/11/18 07/11/18 07/12/18 17:36 22:15 00:25 RBC Hgb Hct MCHC RDW Lymph % (Auto) Lymph # Seg Neutrophils % Abs Lymphs (Manual) D-Dimer POC ABG pH 7.289 L POC ABG pCO2 POC ABG pO2 66 L Sodium Potassium Chloride Carbon Dioxide Creatinine Glucose POC Glucose Calcium AST ALT Lactate Dehydrogenase 591 H C-Reactive Protein Total Protein Albumin Lymph Enumerat CD4/CD8 % CD3 Cells Absolute CD3 Count % CD4 Cells Absolute CD4 Count % CD8 Cells Absolute CD8 Count % CD19 Cells Absolute CD19 Count HIV-1 RNA PCR copies/ml HIV-1 RNA (PCR) log Miscellaneous Test see below H Crossmatch 07/12/18 07/12/18 07/12/18 00:41 05:37 19:29 RBC Hgb Hct MCHC RDW Lymph % (Auto) Lymph # Seg Neutrophils % Abs Lymphs (Manual) D-Dimer POC ABG pH 7.302 L 7.275 L POC ABG pCO2 47.1 H POC ABG pO2 Sodium Potassium Chloride Carbon Dioxide Creatinine Glucose POC Glucose Calcium AST ALT Lactate Dehydrogenase 731 H C-Reactive Protein Total Protein Albumin Lymph Enumerat CD4/CD8 % CD3 Cells Absolute CD3 Count % CD4 Cells Absolute CD4 Count % CD8 Cells Absolute CD8 Count % CD19 Cells Absolute CD19 Count HIV-1 RNA PCR copies/ml HIV-1 RNA (PCR) log Miscellaneous Test Crossmatch 07/12/18 07/12/18 07/13/18 19:29 19:29 04:03 RBC Hgb Hct MCHC RDW Lymph % (Auto) Lymph # Seg Neutrophils % Abs Lymphs (Manual) 220 L D-Dimer POC ABG pH 7.254 L POC ABG pCO2 49.2 H POC ABG pO2 Sodium Potassium Chloride Carbon Dioxide Creatinine Glucose POC Glucose Calcium AST ALT Lactate Dehydrogenase C-Reactive Protein Total Protein Albumin Lymph Enumerat CD4/CD8 0.04 L % CD3 Cells 88 H Absolute CD3 Count 194 L % CD4 Cells 3 L Absolute CD4 Count 7 L % CD8 Cells 75 H Absolute CD8 Count 177 L % CD19 Cells 4 L Absolute CD19 Count 9 L HIV-1 RNA PCR copies/ml 879124 H HIV-1 RNA (PCR) log 5.72 H Miscellaneous Test Crossmatch 07/13/18 07/13/18 07/13/18 05:46 12:23 18:31 RBC Hgb Hct MCHC RDW Lymph % (Auto) Lymph # Seg Neutrophils % Abs Lymphs (Manual) D-Dimer POC ABG pH POC ABG pCO2 POC ABG pO2 Sodium Potassium Chloride Carbon Dioxide Creatinine Glucose POC Glucose 68 L 106 H 112 H Calcium AST ALT Lactate Dehydrogenase C-Reactive Protein Total Protein Albumin Lymph Enumerat CD4/CD8 % CD3 Cells Absolute CD3 Count % CD4 Cells Absolute CD4 Count % CD8 Cells Absolute CD8 Count % CD19 Cells Absolute CD19 Count HIV-1 RNA PCR copies/ml HIV-1 RNA (PCR) log Miscellaneous Test Crossmatch 07/14/18 07/14/18 07/14/18 04:19 05:36 05:36 RBC 2.99 L Hgb 8.8 L Hct 25.7 L MCHC RDW 15.5 H Lymph % (Auto) Lymph # Seg Neutrophils % Abs Lymphs (Manual) D-Dimer POC ABG pH 7.337 L POC ABG pCO2 POC ABG pO2 Sodium 135 L Potassium Chloride Carbon Dioxide 21 L Creatinine 0.7 L Glucose 123 H POC Glucose Calcium 8.2 L AST ALT Lactate Dehydrogenase C-Reactive Protein Total Protein Albumin Lymph Enumerat CD4/CD8 % CD3 Cells Absolute CD3 Count % CD4 Cells Absolute CD4 Count % CD8 Cells Absolute CD8 Count % CD19 Cells Absolute CD19 Count HIV-1 RNA PCR copies/ml HIV-1 RNA (PCR) log Miscellaneous Test Crossmatch 07/14/18 07/14/18 07/14/18 12:14 14:33 17:18 RBC Hgb Hct MCHC RDW Lymph % (Auto) Lymph # Seg Neutrophils % Abs Lymphs (Manual) D-Dimer POC ABG pH 7.325 L POC ABG pCO2 POC ABG pO2 75 L Sodium Potassium Chloride Carbon Dioxide Creatinine Glucose POC Glucose 174 H 114 H Calcium AST ALT Lactate Dehydrogenase C-Reactive Protein Total Protein Albumin Lymph Enumerat CD4/CD8 % CD3 Cells Absolute CD3 Count % CD4 Cells Absolute CD4 Count % CD8 Cells Absolute CD8 Count % CD19 Cells Absolute CD19 Count HIV-1 RNA PCR copies/ml HIV-1 RNA (PCR) log Miscellaneous Test Crossmatch 07/15/18 07/15/18 07/15/18 00:17 12:29 12:29 RBC 2.64 L Hgb 7.5 L Hct 22.9 L MCHC RDW 15.4 H Lymph % (Auto) 7.0 L Lymph # 0.4 L Seg Neutrophils % 89.6 H Abs Lymphs (Manual) D-Dimer POC ABG pH POC ABG pCO2 POC ABG pO2 Sodium Potassium Chloride Carbon Dioxide Creatinine 0.6 L Glucose 124 H POC Glucose 113 H Calcium 7.3 L AST ALT Lactate Dehydrogenase C-Reactive Protein Total Protein Albumin Lymph Enumerat CD4/CD8 % CD3 Cells Absolute CD3 Count % CD4 Cells Absolute CD4 Count % CD8 Cells Absolute CD8 Count % CD19 Cells Absolute CD19 Count HIV-1 RNA PCR copies/ml HIV-1 RNA (PCR) log Miscellaneous Test Crossmatch 07/15/18 07/16/18 07/16/18 14:09 04:46 07:21 RBC Hgb Hct MCHC RDW Lymph % (Auto) Lymph # Seg Neutrophils % Abs Lymphs (Manual) D-Dimer POC ABG pH 7.282 L POC ABG pCO2 52.6 H POC ABG pO2 63 L Sodium Potassium Chloride Carbon Dioxide Creatinine Glucose POC Glucose Calcium AST ALT Lactate Dehydrogenase C-Reactive Protein 2.70 H Total Protein Albumin Lymph Enumerat CD4/CD8 % CD3 Cells Absolute CD3 Count % CD4 Cells Absolute CD4 Count % CD8 Cells Absolute CD8 Count % CD19 Cells Absolute CD19 Count HIV-1 RNA PCR copies/ml HIV-1 RNA (PCR) log Miscellaneous Test Flexitest 1 H Crossmatch 07/16/18 07/16/18 07/16/18 07:21 07:21 16:16 RBC 2.48 L Hgb 7.2 L Hct 21.5 L MCHC RDW 15.7 H Lymph % (Auto) Lymph # Seg Neutrophils % Abs Lymphs (Manual) D-Dimer POC ABG pH 7.251 L POC ABG pCO2 62.2 H POC ABG pO2 Sodium 136 L Potassium Chloride Carbon Dioxide Creatinine 0.6 L Glucose 118 H POC Glucose Calcium 7.5 L AST ALT Lactate Dehydrogenase C-Reactive Protein Total Protein Albumin Lymph Enumerat CD4/CD8 % CD3 Cells Absolute CD3 Count % CD4 Cells Absolute CD4 Count % CD8 Cells Absolute CD8 Count % CD19 Cells Absolute CD19 Count HIV-1 RNA PCR copies/ml HIV-1 RNA (PCR) log Miscellaneous Test Crossmatch 07/17/18 07/18/18 07/18/18 04:01 01:10 03:10 RBC 2.20 L Hgb 6.5 L Hct 19.2 L* MCHC RDW 16.0 H Lymph % (Auto) 7.2 L Lymph # 0.5 L Seg Neutrophils % 89.9 H Abs Lymphs (Manual) D-Dimer POC ABG pH 7.245 L POC ABG pCO2 63.8 H POC ABG pO2 75 L Sodium Potassium Chloride Carbon Dioxide Creatinine Glucose POC Glucose Calcium AST ALT Lactate Dehydrogenase C-Reactive Protein Total Protein Albumin Lymph Enumerat CD4/CD8 % CD3 Cells Absolute CD3 Count % CD4 Cells Absolute CD4 Count % CD8 Cells Absolute CD8 Count % CD19 Cells Absolute CD19 Count HIV-1 RNA PCR copies/ml HIV-1 RNA (PCR) log Miscellaneous Test Crossmatch See Detail 07/18/18 07/18/18 07/18/18 04:54 05:02 12:59 RBC Hgb Hct MCHC RDW Lymph % (Auto) Lymph # Seg Neutrophils % Abs Lymphs (Manual) D-Dimer POC ABG pH 7.615 H POC ABG pCO2 32.6 L 48.8 H POC ABG pO2 79 L 118 H Sodium Potassium Chloride Carbon Dioxide Creatinine Glucose POC Glucose 164 H Calcium AST ALT Lactate Dehydrogenase C-Reactive Protein Total Protein Albumin Lymph Enumerat CD4/CD8 % CD3 Cells Absolute CD3 Count % CD4 Cells Absolute CD4 Count % CD8 Cells Absolute CD8 Count % CD19 Cells Absolute CD19 Count HIV-1 RNA PCR copies/ml HIV-1 RNA (PCR) log Miscellaneous Test Crossmatch 07/18/18 07/18/18 07/19/18 18:25 20:39 03:53 RBC Hgb Hct MCHC RDW Lymph % (Auto) Lymph # Seg Neutrophils % Abs Lymphs (Manual) D-Dimer POC ABG pH 7.339 L POC ABG pCO2 59.9 H 65.0 H POC ABG pO2 69 L Sodium Potassium Chloride Carbon Dioxide Creatinine Glucose POC Glucose 155 H Calcium AST ALT Lactate Dehydrogenase C-Reactive Protein Total Protein Albumin Lymph Enumerat CD4/CD8 % CD3 Cells Absolute CD3 Count % CD4 Cells Absolute CD4 Count % CD8 Cells Absolute CD8 Count % CD19 Cells Absolute CD19 Count HIV-1 RNA PCR copies/ml HIV-1 RNA (PCR) log Miscellaneous Test Crossmatch 07/19/18 07/19/18 07/19/18 08:10 08:10 10:52 RBC 2.51 L Hgb 7.4 L Hct 22.0 L MCHC RDW 15.5 H Lymph % (Auto) Lymph # Seg Neutrophils % Abs Lymphs (Manual) D-Dimer POC ABG pH POC ABG pCO2 POC ABG pO2 Sodium 130 L Potassium Chloride 89.0 L Carbon Dioxide 33 H Creatinine 0.4 L Glucose 150 H POC Glucose 173 H Calcium 7.5 L AST ALT Lactate Dehydrogenase C-Reactive Protein Total Protein Albumin Lymph Enumerat CD4/CD8 % CD3 Cells Absolute CD3 Count % CD4 Cells Absolute CD4 Count % CD8 Cells Absolute CD8 Count % CD19 Cells Absolute CD19 Count HIV-1 RNA PCR copies/ml HIV-1 RNA (PCR) log Miscellaneous Test Crossmatch 07/19/18 07/19/18 07/20/18 17:06 23:47 04:37 RBC Hgb Hct MCHC RDW Lymph % (Auto) Lymph # Seg Neutrophils % Abs Lymphs (Manual) D-Dimer POC ABG pH POC ABG pCO2 58.5 H POC ABG pO2 67 L Sodium Potassium Chloride Carbon Dioxide Creatinine Glucose POC Glucose 117 H 114 H Calcium AST ALT Lactate Dehydrogenase C-Reactive Protein Total Protein Albumin Lymph Enumerat CD4/CD8 % CD3 Cells Absolute CD3 Count % CD4 Cells Absolute CD4 Count % CD8 Cells Absolute CD8 Count % CD19 Cells Absolute CD19 Count HIV-1 RNA PCR copies/ml HIV-1 RNA (PCR) log Miscellaneous Test Crossmatch 07/20/18 07/20/18 07/21/18 06:20 06:20 04:18 RBC 2.69 L Hgb 7.8 L Hct 23.6 L MCHC RDW 15.5 H Lymph % (Auto) Lymph # Seg Neutrophils % Abs Lymphs (Manual) D-Dimer POC ABG pH 7.456 H POC ABG pCO2 60.4 H POC ABG pO2 64 L Sodium 134 L Potassium Chloride 89.2 L Carbon Dioxide 38 H Creatinine 0.7 L D Glucose 120 H POC Glucose Calcium 7.6 L AST ALT Lactate Dehydrogenase C-Reactive Protein Total Protein Albumin Lymph Enumerat CD4/CD8 % CD3 Cells Absolute CD3 Count % CD4 Cells Absolute CD4 Count % CD8 Cells Absolute CD8 Count % CD19 Cells Absolute CD19 Count HIV-1 RNA PCR copies/ml HIV-1 RNA (PCR) log Miscellaneous Test Crossmatch 07/21/18 07/21/18 07/22/18 04:35 04:35 04:16 RBC 2.62 L 2.37 L Hgb 7.7 L 7.0 L Hct 23.1 L 21.1 L MCHC RDW 15.4 H Lymph % (Auto) Lymph # Seg Neutrophils % Abs Lymphs (Manual) D-Dimer POC ABG pH POC ABG pCO2 POC ABG pO2 Sodium 129 L Potassium 5.3 H Chloride 85.3 L Carbon Dioxide 38 H Creatinine 0.4 L Glucose 108 H POC Glucose Calcium 8.0 L AST ALT Lactate Dehydrogenase C-Reactive Protein Total Protein Albumin Lymph Enumerat CD4/CD8 % CD3 Cells Absolute CD3 Count % CD4 Cells Absolute CD4 Count % CD8 Cells Absolute CD8 Count % CD19 Cells Absolute CD19 Count HIV-1 RNA PCR copies/ml HIV-1 RNA (PCR) log Miscellaneous Test Crossmatch 07/22/18 07/23/18 07/23/18 04:16 03:25 12:45 RBC Hgb Hct MCHC RDW Lymph % (Auto) Lymph # Seg Neutrophils % Abs Lymphs (Manual) D-Dimer POC ABG pH POC ABG pCO2 69.4 H POC ABG pO2 Sodium 132 L 125 L D Potassium 5.4 H 5.3 H Chloride 87.4 L 80.3 L Carbon Dioxide 38 H 38 H Creatinine 0.4 L 0.3 L Glucose 117 H 124 H POC Glucose Calcium 7.5 L 7.4 L AST ALT Lactate Dehydrogenase C-Reactive Protein Total Protein Albumin Lymph Enumerat CD4/CD8 % CD3 Cells Absolute CD3 Count % CD4 Cells Absolute CD4 Count % CD8 Cells Absolute CD8 Count % CD19 Cells Absolute CD19 Count HIV-1 RNA PCR copies/ml HIV-1 RNA (PCR) log Miscellaneous Test Crossmatch 07/23/18 07/24/18 07/24/18 23:52 04:30 04:30 RBC 2.12 L Hgb 6.3 L Hct 18.9 L* MCHC RDW Lymph % (Auto) Lymph # Seg Neutrophils % Abs Lymphs (Manual) D-Dimer POC ABG pH POC ABG pCO2 POC ABG pO2 Sodium 127 L Potassium 5.2 H Chloride 83.9 L Carbon Dioxide 39 H Creatinine 0.3 L Glucose POC Glucose 118 H Calcium 7.5 L AST ALT Lactate Dehydrogenase C-Reactive Protein Total Protein Albumin Lymph Enumerat CD4/CD8 % CD3 Cells Absolute CD3 Count % CD4 Cells Absolute CD4 Count % CD8 Cells Absolute CD8 Count % CD19 Cells Absolute CD19 Count HIV-1 RNA PCR copies/ml HIV-1 RNA (PCR) log Miscellaneous Test Crossmatch 07/24/18 07/24/18 07/24/18 05:11 05:30 07:50 RBC Hgb Hct MCHC RDW Lymph % (Auto) Lymph # Seg Neutrophils % Abs Lymphs (Manual) D-Dimer POC ABG pH 7.462 H POC ABG pCO2 58.7 H POC ABG pO2 79 L Sodium Potassium Chloride Carbon Dioxide Creatinine Glucose POC Glucose 145 H Calcium AST ALT Lactate Dehydrogenase C-Reactive Protein Total Protein Albumin Lymph Enumerat CD4/CD8 % CD3 Cells Absolute CD3 Count % CD4 Cells Absolute CD4 Count % CD8 Cells Absolute CD8 Count % CD19 Cells Absolute CD19 Count HIV-1 RNA PCR copies/ml HIV-1 RNA (PCR) log Miscellaneous Test Crossmatch See Detail 07/25/18 07/25/18 07/26/18 09:30 09:30 00:18 RBC 2.99 L Hgb 9.1 L Hct 27.0 L D MCHC RDW Lymph % (Auto) Lymph # Seg Neutrophils % Abs Lymphs (Manual) D-Dimer POC ABG pH POC ABG pCO2 POC ABG pO2 Sodium 131 L 135 L Potassium 5.1 H 5.5 H Chloride 84.4 L 88.4 L Carbon Dioxide 39 H 38 H Creatinine 0.3 L 0.3 L Glucose 133 H POC Glucose Calcium 8.0 L AST ALT Lactate Dehydrogenase C-Reactive Protein Total Protein Albumin Lymph Enumerat CD4/CD8 % CD3 Cells Absolute CD3 Count % CD4 Cells Absolute CD4 Count % CD8 Cells Absolute CD8 Count % CD19 Cells Absolute CD19 Count HIV-1 RNA PCR copies/ml HIV-1 RNA (PCR) log Miscellaneous Test Crossmatch 07/26/18 07/26/18 07/26/18 04:07 05:50 05:50 RBC 3.01 L Hgb 9.4 L Hct 27.2 L MCHC 35 H RDW Lymph % (Auto) 10.4 L Lymph # 0.9 L Seg Neutrophils % 84.2 H Abs Lymphs (Manual) D-Dimer POC ABG pH 7.456 H POC ABG pCO2 61.4 H POC ABG pO2 68 L Sodium 131 L Potassium 5.1 H Chloride 84.5 L Carbon Dioxide 39 H Creatinine 0.3 L Glucose POC Glucose Calcium AST 78 H ALT 71 H Lactate Dehydrogenase C-Reactive Protein Total Protein 6.0 L Albumin 2.5 L Lymph Enumerat CD4/CD8 % CD3 Cells Absolute CD3 Count % CD4 Cells Absolute CD4 Count % CD8 Cells Absolute CD8 Count % CD19 Cells Absolute CD19 Count HIV-1 RNA PCR copies/ml HIV-1 RNA (PCR) log Miscellaneous Test Crossmatch Chest x-ray: image reviewed (possible right subpulmonic efusion; R>L alveolar infiltrates) Allied health notes reviewed: nursing
[2018-07-26] MEDS: MIDAZOLAM 100 MG in NACL 0.9% 80 ML IV SCH (15:30)
--- NOTE | 2018-07-26 15:40 | Progress Note ---
Assessment and Plan Assessment and plan: Patient is a 37 yo man with a history of HIV and tobacco dependency who presents from [facility] to [facility] ED with sob and cough. Pt admitted to [facility] and initiated on Pneumonia protocol. In the ED, temp 99.8, HR 104, R 29, O2 sat 77%, BP 94/50. WBC 6.1, Hg 9.6, Plat 398. Creat 0.6. Blood culture 07/11/2018 no growth today. Sputum culture 07/11/2018 no growth today. Chest CT showed bilateral patchy and somewhat confluent alveolar infiltrates and interstitial infiltrates. No effusions. Mild cardiomegaly. Patient required emergent intubation following admission to the [facility]. Patient unfortunately has remained on full ventilatory support and very resistant hypoxia currently on high level FIO2.Patient unfortunately has remained on full ventilatory support and very resistant hypoxia currently on high level FIO2. * CT head: No CT evidence of acute intracranial abnormality. Pansinus disease * CTA CHEST: IMPRESSION: No pulmonary embolus. Bilateral patchy and somewhat confluent alveolar infiltrates and interstitial infiltrates. Noeffusions. Mild cardiomegaly. Runnings likely reflect a viral pneumonia or inhalational process * CXR IMPRESSION: Heart size is normal.There are bilateral lower lobe infiltrates. These are slightly worse than the prior study.. There is no pleural effusion or pneumothorax. Endotracheal tube is in the mid trachea. NG tube is in the stomach. There is a right-sided PICC line. The tip is in the superior vena cava.. Acute Hypoxic respiratory failure now on mechanical ventilation >96 HRS: ,Cont vent support. Trach and peg ordered. 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 Severe Protein Malnutrition: [place] Line to follow AIDS with history of noncompliance: ID following AOCD: monitor cbc closely acute blood loss anemia: Transfuse 2 units prbc and monitor Elevated d/DIMER- NO PE noted on CTA chest Restraint renewed From [facility], no NOK/family listed, Case management to find NOK; poor prognosis CCT 35 minutes The high probability of a clinically significant, sudden or life threatening deterioration of the [pulmonary, system(s) required my full and direct attention, intervention and personal management. The aggregate critical care time was [50] minutes. This time is in addition to time spent performing reported procedures but includes the following: [x] Data Review and interpretation [x] Patient assessment and monitoring of vital signs [x] Documentation [x] Medication orders and management . History Interval history: Patient seen and examined, remains on mechanical ventilation, No other new complaints noted by nursing staff. Possible trach and peg Hospitalist Physical - Physical exam Narrative exam: Narrative exam: Gen: thin, critically ill, intubated and sedated and restraints in place HEENT: NCAT, EOMI, PERRL, OP ETT and NGT in place Neck: supple, no JVD CVS/Heart: Regular tachycardia, normal S1S2, pulses present bilaterally Chest/Lungs: tachypenic, diminished bs bilateral, Symmetrical chest expansion, good air entry bilaterally GI/Abdomen: soft, good bowel sounds, no guarding or rebound /Bladder: no suprapubic tenderness, Extermity/Skin: poor skin tone MSK: sedated Neuro: sedated Psych:sedated - Constitutional Vitals: Temp Pulse Resp BP Pulse Ox 98.8 F 127 H 28 H 112/42 91 07/26/18 12:00 07/26/18 14:41 07/26/18 14:00 07/26/18 14:41 07/26/18 14:41 General appearance: Present: no acute distress, well-nourished Results - Labs CBC & Chem 7: 07/26/18 05:50 07/26/18 05:50 Labs: Laboratory Last Values WBC 8.3 K/mm3 (4.5-11.0) 07/26/18 05:50 RBC 3.01 M/mm3 (3.65-5.03) L 07/26/18 05:50 Hgb 9.4 gm/dl (11.8-15.2) L 07/26/18 05:50 Hct 27.2 % (35.5-45.6) L 07/26/18 05:50 MCV 90 fl (84-94) 07/26/18 05:50 MCH 31 pg (28-32) 07/26/18 05:50 MCHC 35 % (32-34) H 07/26/18 05:50 RDW 14.9 % (13.2-15.2) 07/26/18 05:50 Plt Count 399 K/mm3 (140-440) 07/26/18 05:50 Lymph % (Auto) 10.4 % (13.4-35.0) L 07/26/18 05:50 Payne % (Auto) 5.0 % (0.0-7.3) 07/26/18 05:50 Eos % (Auto) 0.1 % (0.0-4.3) 07/26/18 05:50 Baso % (Auto) 0.3 % (0.0-1.8) 07/26/18 05:50 Lymph # 0.9 K/mm3 (1.2-5.4) L 07/26/18 05:50 Payne # 0.4 K/mm3 (0.0-0.8) 07/26/18 05:50 Eos # 0.0 K/mm3 (0.0-0.4) 07/26/18 05:50 Baso # 0.0 K/mm3 (0.0-0.1) 07/26/18 05:50 Add Manual Diff Complete 07/25/18 09:30 Total Counted 100 07/25/18 09:30 Seg Neutrophils % 84.2 % (40.0-70.0) H 07/26/18 05:50 Seg Neuts % (Manual) 63.0 % (40.0-70.0) 07/25/18 09:30 0 % 07/25/18 09:30 35.0 % (13.4-35.0) 07/25/18 09:30 Reactive Lymphs % (Man) 0 % 07/25/18 09:30 1.0 % (0.0-7.3) 07/25/18 09:30 0 % (0.0-4.3) 07/25/18 09:30 0 % (0.0-1.8) 07/25/18 09:30 0 % 07/25/18 09:30 1.0 % 07/25/18 09:30 0 % 07/25/18 09:30 0 % 07/25/18 09:30 Nucleated RBC % Not Reportable 07/25/18 09:30 Seg Neutrophils # 7.0 K/mm3 (1.8-7.7) 07/26/18 05:50 Seg Neutrophils # Man 4.9 K/mm3 (1.8-7.7) 07/25/18 09:30 Band Neutrophils # 0.0 K/mm3 07/25/18 09:30 Abs Lymphs (Manual) 220 cells/uL (850-3900) L 07/12/18 19:29 2.7 K/mm3 (1.2-5.4) 07/25/18 09:30 Abs React Lymphs (Man) 0.0 K/mm3 07/25/18 09:30 0.1 K/mm3 (0.0-0.8) 07/25/18 09:30 0.0 K/mm3 (0.0-0.4) 07/25/18 09:30 0.0 K/mm3 (0.0-0.1) 07/25/18 09:30 0.0 K/mm3 07/25/18 09:30 0.1 K/mm3 07/25/18 09:30 0.0 K/mm3 07/25/18 09:30 Blast Cells # 0.0 K/mm3 07/25/18 09:30 WBC Morphology Not Reportable 07/25/18 09:30 Hypersegmented Neuts Not Reportable 07/25/18 09:30 Hyposegmented Neuts Not Reportable 07/25/18 09:30 Hypogranular Neuts Not Reportable 07/25/18 09:30 Not Reportable 07/25/18 09:30 Not Reportable 07/25/18 09:30 Not Reportable 07/25/18 09:30 Not Reportable 07/25/18 09:30 Not Reportable 07/25/18 09:30 Not Reportable 07/25/18 09:30 Consistent w auto 07/25/18 09:30 Not Reportable 07/25/18 09:30 Plt Clumps, EDTA Not Reportable 07/25/18 09:30 Not Reportable 07/25/18 09:30 Not Reportable 07/25/18 09:30 Not Reportable 07/25/18 09:30 Plt Morphology Comment Not Reportable 07/25/18 09:30 RBC Morphology Not Reportable 07/25/18 09:30 Dimorphic RBCs Not Reportable 07/25/18 09:30 Few 07/25/18 09:30 Not Reportable 07/25/18 09:30 Not Reportable 07/25/18 09:30 1+ 07/25/18 09:30 Not Reportable 07/25/18 09:30 Few 07/25/18 09:30 Not Reportable 07/25/18 09:30 Not Reportable 07/25/18 09:30 Not Reportable 07/25/18 09:30 Rare 07/25/18 09:30 Not Reportable 07/25/18 09:30 Not Reportable 07/25/18 09:30 Not Reportable 07/25/18 09:30 Not Reportable 07/25/18 09:30 Not Reportable 07/25/18 09:30 Not Reportable 07/25/18 09:30 Not Reportable 07/25/18 09:30 Not Reportable 07/25/18 09:30 Not Reportable 07/25/18 09:30 Acanthocytes (Spur) Not Reportable 07/25/18 09:30 Rouleaux Not Reportable 07/25/18 09:30 Not Reportable 07/25/18 09:30 Not Reportable 07/25/18 09:30 Not Reportable 07/25/18 09:30 Not Reportable 07/25/18 09:30 Hem Pathologist Commnt No 07/25/18 09:30 1298.70 ng/mlDDU (0-234) H 07/11/18 15:04 POC ABG pH 7.456 (7.35-7.45) H 07/26/18 04:07 POC ABG pCO2 61.4 (35-45) H 07/26/18 04:07 POC ABG pO2 68 (80-105) L 07/26/18 04:07 POC ABG HCO3 43.3 (22-26 mml/L) 07/26/18 04:07 POC ABG Total CO2 45 (23-27mmol/L) 07/26/18 04:07 POC ABG O2 Sat 93 07/26/18 04:07 POC ABG Base Excess 19 ((-2) - (+3)mmol/L) 07/26/18 04:07 45 % 07/26/18 04:07 Sodium 131 mmol/L (137-145) L 07/26/18 05:50 Potassium 5.1 mmol/L (3.6-5.0) H 07/26/18 05:50 Chloride 84.5 mmol/L (98-107) L 07/26/18 05:50 Carbon Dioxide 39 mmol/L (22-30) H 07/26/18 05:50 13 mmol/L 07/26/18 05:50 BUN 16 mg/dL (9-20) 07/26/18 05:50 0.3 mg/dL (0.8-1.5) L 07/26/18 05:50 Estimated GFR > 60 ml/min 07/26/18 05:50 53 % 07/26/18 05:50 Glucose 100 mg/dL (75-100) 07/26/18 05:50 POC Glucose 95 (70-105) 07/24/18 13:06 Lactic Acid 1.80 mmol/L (0.7-2.0) 07/11/18 21:01 Calcium 8.8 mg/dL (8.4-10.2) 07/26/18 05:50 < 0.20 mg/dL (0.1-1.2) 07/26/18 05:50 AST 78 units/L (5-40) H 07/26/18 05:50 ALT 71 units/L (7-56) H 07/26/18 05:50 76 units/L (35-129) 07/26/18 05:50 731 units/L (91-180) H 07/12/18 19:29 < 0.010 ng/mL (0.00-0.029) 07/11/18 15:04 2.70 mg/dL (0.00-1.30) H 07/15/18 14:09 NT-Pro-B Natriuret Pep 249.7 pg/mL (0-450) 07/11/18 15:04 6.0 g/dL (6.3-8.2) L 07/26/18 05:50 2.5 g/dL (3.9-5) L 07/26/18 05:50 0.7 % 07/26/18 05:50 Triglycerides 125 mg/dL (2-149) 07/25/18 04:26 Yellow (Yellow) 07/15/18 14:14 Clear (Clear) 07/15/18 14:14 6.0 (5.0-7.0) 07/15/18 14:14 Ur Specific [place] 1.015 (1.003-1.030) 07/15/18 14:14 30 mg/dl mg/dL (Negative) 07/15/18 14:14 Neg mg/dL (Negative) 07/15/18 14:14 Neg mg/dL (Negative) 07/15/18 14:14 Neg (Negative) 07/15/18 14:14 Neg (Negative) 07/15/18 14:14 Neg (Negative) 07/15/18 14:14 < 2.0 mg/dL (<2.0) 07/15/18 14:14 Ur Leukocyte Esterase Neg (Negative) 07/15/18 14:14 2.0 /HPF (0.0-6.0) 07/15/18 14:14 6.0 /HPF (0.0-6.0) 07/15/18 14:14 21 mmol/L 07/19/18 14:27 Lymph Enumerat CD4/CD8 0.04 (0.86-5.00) L 07/12/18 19:29 % CD3 Cells 88 % (57-85) H 07/12/18 19:29 194 cells/uL (840-3060) L 07/12/18 19:29 % CD4 Cells 3 % (30-61) L 07/12/18 19:29 7 cells/uL (490-1740) L 07/12/18 19:29 % CD8 Cells 75 % (12-42) H 07/12/18 19:29 177 cells/uL (180-1170) L 07/12/18 19:29 % CD19 Cells 4 % (6-29) L 07/12/18 19:29 9 cells/uL (110-660) L 07/12/18 19:29 RPR Nonreactive (Nonreactive) 07/12/18 23:38 CMV DNA PCR log copper miner blasting/mL See scanned result 07/15/18 14:09 Hepatitis A IgM Ab Non-reactive (NonReactive) 07/12/18 23:38 Hep Bs Antigen Non-reactive (Negative) 07/12/18 23:38 Hep B Core IgM Ab Non-reactive (NonReactive) 07/12/18 23:38 Non-reactive (NonReactive) 07/12/18 23:38 HIV-1 RNA PCR copies/ml [id number] Copies/mL H 07/12/18 19:29 5.72 Log cps/mL H 07/12/18 19:29 Flexitest 1 H 07/16/18 07:21 Blood Type O POSITIVE 07/24/18 07:50 Antibody Screen Positive 07/24/18 07:50 Prewarmed Antibody Srcn Positive 07/18/18 03:10 Antibody Identification Anti-Adrianna 07/24/18 07:50 Direct Antiglob Test Negative 07/24/18 07:50 NIKUNJ, Poly Interpret Negative 07/24/18 07:50 Crossmatch See Detail 07/24/18 07:50 Active Medications - Current Medications Current Medications: Generic Name Dose Route Start Last Admin Trade Name Freq PRN Reason Stop Dose Admin Acetaminophen 650 mg 07/12/18 18:07 07/21/18 19:30 Tylenol FEEDTUBE 650 mg Q6H PRN Administration Non Cardiac Pain or Temp>100.5 Albuterol 2.5 mg 07/11/18 17:16 07/26/18 12:07 Proventil IH 2.5 mg Q3HRT PRN Administration Shortness Of Breath Lipase/Protease/Amylase 1 each 07/13/18 12:30 Pancreaze 10,500 Unit FEEDTUBE PRN PRN For Clogged Feeding Tube Azithromycin 1,200 mg 07/26/18 10:00 07/26/18 09:55 Zithromax PO 1,200 mg Th HE Administration Docusate Sodium 100 mg 07/15/18 12:00 07/26/18 09:59 Colace PO 100 mg BID HE Administration Doxazosin Mesylate 2 mg 07/18/18 12:00 07/26/18 09:56 Cardura PO 2 mg QDAY HE Administration Famotidine 20 mg 07/16/18 22:00 07/26/18 09:59 Pepcid PO 20 mg BID HE Administration Fentanyl 50 mcg 07/12/18 00:26 07/20/18 09:02 Sublimaze IV 50 mcg Q10MIN PRN Administration ANALGESIA Heparin Sodium (Porcine) 5,000 unit 07/20/18 10:00 07/26/18 09:55 Heparin SUB-Q 5,000 unit BID HE Administration Hydrophilic Ointment 1 applic 07/12/18 13:30 Vaseline Lip Therapy TP Q2HR PRN Dry Lips Fentanyl Citrate 2,000 mcg in 100 mls @ 3.065 mls/hr 07/12/18 01:00 07/26/18 10:50 Fentanyl Drip Premix IV 4 mcg/kg/hr TITR HE 12.26 mls/hr Administration Protocol 1 MCG/KG/HR Propofol 1,000 mg in 100 mls @ 1.839 mls/hr 07/12/18 01:00 07/26/18 06:42 Diprivan 10 Mg/Ml IV 50 mcg/kg/min TITR HE 18.39 mls/hr Administration Protocol 5 MCG/KG/MIN Midazolam HCl 100 mg/ Sodium 100 mls @ 2 mls/hr 07/18/18 13:30 07/25/18 19:30 Chloride IV 5 mg/hr TITR HE 5 mls/hr Administration Protocol 2 MG/HR Sodium Chloride 1,000 mls @ 42 mls/hr 07/23/18 11:00 07/23/18 12:01 Nacl 0.9% 1000 Ml IV 42 mls/hr DIRECT HE Administration Trimethoprim/Sulfamethoxazole 268.75 mls @ 350 mls/hr 07/24/18 12:00 07/26/18 11:57 300 mg/ Dextrose IV 350 mls/hr Q6HR HE Administration Protocol Methylprednisolone Sodium Succinate 40 mg 07/16/18 14:00 07/26/18 06:07 Solu-Medrol IV 40 mg Q8HR HE Administration Midazolam HCl 2 mg 07/16/18 13:06 07/26/18 07:44 Versed IV 2 mg Q2H PRN Administration AGITATION Midazolam HCl 2 mg 07/18/18 12:44 Versed IV Q10MIN PRN Sedation Multi-Ingred Cream/Lotion/Oil/Oint 1 applic 07/12/18 13:30 Artificial Tears Ophth Oint OU Q4HR PRN Dry Eye(s) Quetiapine Fumarate 200 mg 07/22/18 22:00 07/26/18 09:56 Seroquel PO 200 mg BID HE Administration Quetiapine Fumarate 50 mg 07/24/18 12:00 07/26/18 09:56 Seroquel PO 50 mg BID HE Administration Senna 17.2 mg 07/26/18 22:00 Senokot PO QHS HE Simple Syrup 15 ml 07/13/18 12:30 Simple Syrup FEEDTUBE PRN PRN Hypoglycemia Simple Syrup 30 ml 07/13/18 12:30 Simple Syrup FEEDTUBE PRN PRN Hypoglycemia Sodium Bicarbonate 325 mg 07/13/18 12:30 Sodium Bicarbonate FEEDTUBE PRN PRN For Clogged Feeding Tube Sodium Chloride 10 ml 07/11/18 22:00 07/26/18 09:59 Sodium Chloride Flush Syringe 10 Ml IV 10 ml BID HE Administration Sodium Chloride 10 ml 07/11/18 17:16 07/18/18 09:00 Sodium Chloride Flush Syringe 10 Ml IV 10 ml PRN PRN Administration LINE FLUSH Nutrition/Malnutrition Assess - Dietary Evaluation Nutrition/Malnutrition Findings: Nutrition Notes Start: 07/12/18 09:38 Freq: Status: Active Protocol: Document 07/25/18 10:42 LP (Rec: 07/25/18 10:45 LP [id number]) Nutrition Notes Initial or Follow up Reassessment Current Diagnosis Sepsis,Respiratory Failure Other Pertinent Diagnosis Bilat pneu, HIV/AIDS, Diarrhea Current Diet TF - Vital AF 1.2 at 65ml/hr Labs/Tests K 5.2 Pertinent Medications REviewed Height 5 ft 11 in Weight 67.5 kg [place] Body Weight (kg) 78.18 BMI 20.7 Subjective/Other Information Pt tolerating TF at goal rate but K levels remain elevated. Percent of energy/protein needs met: 97% energy 100% pro Burn Absent Trauma Absent #2 Nutrition Diagnosis Inadequate oral intake Diagnosis Progress(for reassessment Continues documentation) #1 Nutrition Diagnosis Malnutrition Diagnosis Progress(for reassessment Continues documentation) Is patient on ventilator? Yes Is Patient Ambulatory and/or Out of Bed No REE-([facility]-confined to bed) 1955.196 Calculation Used for Recommendations [facility] Additional Notes Pro needs 1.2-2g/k-130g/ day Fluid needs 1ml/kcal Nutrition Intervention Change Diet Order: TF Nutrition Support: Change to Nepro at 45ml/hr Flush with 150ml q4h Kcal 1,944 Protein (gm) 87 Fluid (mL) 785 Goal #1 TF tolerance Goal #2 TF to meet 90-100% energy and pro needs Goal #3 Wt maintenance and/or gain Anticipated Discharge Needs: Unable to determine at this time Follow-Up By: 07/27/18 Additional Comments Follow for TF change and tolerance
[2018-07-26] MEDS: SENOKOT PO SCH (23:16)
[2018-07-27] MEDS: fentaNYL DRIP Premix 2,000 MCG/100 ML BAG IV SCH ×4 (04:53→23:53)
[2018-07-27] MEDS: DIPRIVAN 10 MG/ML 1,000 MG/100 ML BOTTLE IV SCH ×3 (05:11→14:02)
[2018-07-27] MEDS: D5W IV SCH ×3 (05:14→12:30)
[2018-07-27] MEDS: BACTRIM IV SCH ×3 (05:14→12:30)
[2018-07-27] MEDS: SOLU-Medrol IV SCH ×3 (06:00→21:24)
[2018-07-27] MEDS: COLACE PO SCH ×2 (10:00→22:15)
--- NOTE | 2018-07-27 10:50 | Progress Note ---
Assessment and Plan Cultures: Blood culture 07/11/2018 no growth today. Cryptococcal antigen : negative MRSA PCR: positive Blood culture 07/15/2018: in progress Urine culture 07/15/2018: no growth in 24 hours Sputum culture 07/15/18: MRSA, Jannette CMV PCR 07/15/2018 33,392 copies Assessment: 37 y/o male currently in correction with history of HIV infection of unknown duration, noncompliant with antiretroviral medication, severe malnutrition; admitted on 07/11/2018, brought by law enforcement, due to 2-week history of shortness of breath, generalized weakness and productive cough: 1) Sepsis with new septic shock: off pressors. no fever. Etiology most likely pneumonia. CRP 2.7. Procalcitonin 3.09. 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 CMV +/- MRSA. Sputum culture 07/11/2018 no growth today. Chest CT showed bilateral patchy and somewhat confluent alveolar infiltrates and interstitial infiltrates. No effusions. Mild cardiomegaly. Sputum culture 07/15 grew MRSA and Jannette. Completed linezolid x 10 days until 07/23. 3) HIV, presumed AIDS: Patient has not taken his HIV medication for at least 6 months prior due to his incarceration. On admission he reported 40lbs unintentional weight loss for 2 months and intermittent loose stools over the past 2 weeks. VL 523,000/ CD4=7. Pneumocytosis Jirovecii positive. RPR nonreactive. Hepatitis panel negative. 4) Diarrhea: ? possible opportunistic infection. resolved 5) Acute respiratory failure: not better, from pneumonia. 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 - continue valganciclovir 900 mg PO BID D5 to cover CMV viremia, re-check CMV DNA PCR on 08/06 - continue bactrim IV and solumedrol IV D - contact isolation for MRSA - HIV genotype pending - continue azithromycin 1200 mg PO qweek for MAC prophylaxis Dr Blas [phone] covering the weekend Will follow Ana Kaur MD Infectious Diseases [place] [facility] M [phone] O [phone] Subjective Date of service: 07/27/18 Principal diagnosis: Acute hypoxemic resp failure; Bilateral pneumonia (PJP); HIV/AIDS Interval history: Alert, follows commands, no fever, intubated, FiO2 45% p 7 ROS unable to obtain Objective - Exam Narrative Exam: General appearance: alert, follows commands on the ventilator Eyes: anicteric sclerae, moist conjunctivae; no lid-lag; PERRLA HENT: Atraumatic; oropharynx +ETT +NGT Neck: Trachea midline; supple, no thyromegaly or lymphadenopathy Lungs: ryland rhonchi CV: tachycardic Abdomen: Soft, non-tender; no masses or hepatosplenomegaly Extremities: No peripheral edema or extremity lymphadenopathy Skin: Normal temperature, turgor and texture; no rash, ulcers or subcutaneous nodules Psych: no agitated Neuro: alert moving all extremities - Constitutional Vitals: Vital Signs Temp Pulse Resp BP Pulse Ox 98.7 F 121 H 21 114/65 93 07/27/18 08:00 07/27/18 07:46 07/27/18 06:13 07/27/18 07:46 07/27/18 07:46 Temperature -Last 24 Hours Temperature 98.7 F Temperature 99.3 F Temperature 98.8 F Temperature 98.4 F Temperature 97.8 F Temperature 98.8 F - Labs CBC & Chem 7: 07/26/18 05:50 07/26/18 05:50 Labs: Abnormal lab results 07/26/18 Range/Units 14:56 POC ABG pCO2 66.0 H (35-45) POC ABG pO2 56 L (80-105)
[2018-07-27] MEDS: VALGANCICLOVIR FEEDTUBE SCH ×3 (11:00→22:13)
--- NOTE | 2018-07-27 11:09 | Progress Note ---
Assessment and Plan Acute hypoxemic respiratory failure, on mechanical ventilatory support. Bilateral pneumonia, high suspicion for Pneumocystis jiroveci pneumonia. Human immunodeficiency virus/acquired immunodeficiency syndrome,noncompliant wit h therapy. Hyponatremia. Severe protein calorie malnutrition. Elevated D-dimer. Tobacco use disorder. - consult placed for tracheostomy placement (ETT day # 16-17) - consent placed in chart (2 physician consent as no next of kin available) - continue miralax as part of bowel regimen - continue to wean supplemental oxygen to keep O2 sats 88-90% acutely - increase Peep to 8 cm H2O and maintain there during weaning period to prevent quick de-recruitment (has decompensated rapidly during this hospitalization with rapid Peep weaning) - continue Seroquel bid dosing to spare IV sedatives (dose increased to 250mg bid) - PJP stain positive - continue current set rate at 30/min on MVS and TV 350 mls (LTVV /4-6mls/kg IBW) - continue ARDS ventilatory strategies with low TV - will begin targeting conventional ventilatory modes as ARDS resolves - continue daily SAT's & SBT assessment as tolerated - continue bronchodilators with pulmonary hygiene per RT - continue GI & VTE prophylaxis - Lung protective strategies - prn CXR's at this point - VAP bundle addressed - Tracheal aspirate growing MRSA - continue Anti-infectives and ART per ID rec's - Chambers catheter placed for acute urinary retention. - Continue full MVS - Monitor renal indices closely - Avoid nephrotoxic agents, adjust all medications for CrCL - Strict intake and output monitoring - Tube feedings as tolerated - Accuchecks with glycemic control. Target glucose of 140-180 mg/dL - Maintenance of sleep -wake cycle - Mobility as tolerated by hemodynamics - Influenza and pneumonia vaccination per protocol ..care plan discussed at length with RN/RT at the bedside ..discussed in ICU-IDT rounds PROGNOSIS: GUARDED CONDITION: CRITICAL CODE STATUS: FULL CODE The high probability of a clinically significant, sudden or life-threatening deterioration of the [respiratory, neurology, renal] system(s) required my full and direct attention, intervention and personal management. The aggregate critical care time was [34] minutes without overlap. Time includes spent on; [x] Data Review and interpretation [x] Patient assessment and monitoring of vital signs [x] Documentation [x] Medication orders and management Subjective Date of service: 05/17/19 Principal diagnosis: Acute hypoxemic resp failure; Bilateral pneumonia (PJP); HIV/AIDS Interval history: Patient is seen today for: Acute hypoxemic respiratory failure, on mechanical ventilatory support; Bilateral pneumonia, high suspicion for Pneumocystis jiroveci pneumonia; Human immunodeficiency virus/acquired immunodeficiency syndrome,noncompliant with therapy; Hyponatremia; Severe protein calorie malnu trition. Seen and examined at bedside; 24-hour events reviewed; nursing and respiratory care staff consulted; no adverse overnight events reported to me; remains on MVS; FiO2 at 50%; Peep at 7cm H2O; sedated to RASS -1; No N/V/F/C reported; No seizuire activity; making urine Objective Vital Signs - 12hr 07/26/18 07/27/18 07/27/18 23:22 00:00 00:35 Temperature Pulse Rate 121 H 113 H Pulse Rate [ 117 H From Monitor] Respiratory 18 32 H Rate Blood Pressure 97/54 79/39 O2 Sat by Pulse 93 96 92 Oximetry 07/27/18 07/27/18 07/27/18 01:00 02:00 03:00 Temperature Pulse Rate 110 H 123 H Pulse Rate [ From Monitor] Respiratory 17 40 H Rate Blood Pressure 80/40 130/83 131/86 O2 Sat by Pulse 90 91 89 Oximetry 07/27/18 07/27/18 07/27/18 03:30 04:00 04:58 Temperature 99.3 F Pulse Rate 121 H 120 H Pulse Rate [ 112 H From Monitor] Respiratory 25 H Rate Blood Pressure 137/83 115/70 O2 Sat by Pulse 92 96 Oximetry 07/27/18 07/27/18 07/27/18 05:00 06:00 06:11 Temperature Pulse Rate 134 H 110 H Pulse Rate [ From Monitor] Respiratory 28 H 35 H 21 Rate Blood Pressure 115/70 117/69 O2 Sat by Pulse 98 91 Oximetry 07/27/18 07/27/18 07/27/18 06:13 07:46 08:00 Temperature 98.7 F Pulse Rate 121 H Pulse Rate [ From Monitor] Respiratory 21 Rate Blood Pressure 114/65 O2 Sat by Pulse 93 Oximetry Constitutional: no acute distress, other (young AAM; normocephalic and atraumatic) Eyes: non-icteric ENT: oropharynx moist, other (ETT 24 cm SHONA) Neck: supple, no lymphadenopathy, no JVD, other (no thyromegaly) Effort: mildly labored Ascultation: Bilateral: diminished breath sounds, rales Percussion: Bilateral: not dull Cardiovascular: regular rate and rhythm, other (S1,S2, no murmurs, gallops or rubs) Gastrointestinal: normoactive bowel sounds, soft, non-tender, non-distended Integumentary: normal Extremities: no cyanosis, no edema, pulses normal, no ischemia or petechiae Neurologic: normal mental status, non-focal exam, pupils equal and round, CN II- XII normal, motor strength normal and Psychiatric: other (sedated) CBC and BMP: 07/28/18 05:20 07/28/18 05:20 ABG, PT/INR, D-dimer: ABG POC ABG pH 7.433 (7.35-7.45) 07/26/18 14:56 POC ABG pCO2 66.0 (35-45) H 07/26/18 14:56 POC ABG pO2 56 (80-105) L 07/26/18 14:56 POC ABG HCO3 44.0 (22-26 mml/L) 07/26/18 14:56 POC ABG Total CO2 46 (23-27mmol/L) 07/26/18 14:56 POC ABG O2 Sat 88 07/26/18 14:56 PT/INR, D-dimer 1298.70 ng/mlDDU (0-234) H 07/11/18 15:04 Abnormal lab findings: Abnormal Labs 07/11/18 07/11/18 07/11/18 14:06 14:06 15:04 RBC 3.30 L Hgb 9.6 L Hct 28.7 L MCHC RDW Lymph % (Auto) Lymph # Seg Neutrophils % Abs Lymphs (Manual) D-Dimer 1298.70 H POC ABG pH POC ABG pCO2 POC ABG pO2 Sodium 132 L Potassium Chloride Carbon Dioxide Creatinine 0.6 L Glucose 103 H POC Glucose Calcium 7.3 L AST ALT Lactate Dehydrogenase C-Reactive Protein Total Protein Albumin 2.1 L Lymph Enumerat CD4/CD8 % CD3 Cells Absolute CD3 Count % CD4 Cells Absolute CD4 Count % CD8 Cells Absolute CD8 Count % CD19 Cells Absolute CD19 Count HIV-1 RNA PCR copies/ml HIV-1 RNA (PCR) log Miscellaneous Test Crossmatch 07/11/18 07/11/18 07/12/18 17:36 22:15 00:25 RBC Hgb Hct MCHC RDW Lymph % (Auto) Lymph # Seg Neutrophils % Abs Lymphs (Manual) D-Dimer POC ABG pH 7.289 L POC ABG pCO2 POC ABG pO2 66 L Sodium Potassium Chloride Carbon Dioxide Creatinine Glucose POC Glucose Calcium AST ALT Lactate Dehydrogenase 591 H C-Reactive Protein Total Protein Albumin Lymph Enumerat CD4/CD8 % CD3 Cells Absolute CD3 Count % CD4 Cells Absolute CD4 Count % CD8 Cells Absolute CD8 Count % CD19 Cells Absolute CD19 Count HIV-1 RNA PCR copies/ml HIV-1 RNA (PCR) log Miscellaneous Test see below H Crossmatch 07/12/18 07/12/18 07/12/18 00:41 05:37 19:29 RBC Hgb Hct MCHC RDW Lymph % (Auto) Lymph # Seg Neutrophils % Abs Lymphs (Manual) D-Dimer POC ABG pH 7.302 L 7.275 L POC ABG pCO2 47.1 H POC ABG pO2 Sodium Potassium Chloride Carbon Dioxide Creatinine Glucose POC Glucose Calcium AST ALT Lactate Dehydrogenase 731 H C-Reactive Protein Total Protein Albumin Lymph Enumerat CD4/CD8 % CD3 Cells Absolute CD3 Count % CD4 Cells Absolute CD4 Count % CD8 Cells Absolute CD8 Count % CD19 Cells Absolute CD19 Count HIV-1 RNA PCR copies/ml HIV-1 RNA (PCR) log Miscellaneous Test Crossmatch 07/12/18 07/12/18 07/13/18 19:29 19:29 04:03 RBC Hgb Hct MCHC RDW Lymph % (Auto) Lymph # Seg Neutrophils % Abs Lymphs (Manual) 220 L D-Dimer POC ABG pH 7.254 L POC ABG pCO2 49.2 H POC ABG pO2 Sodium Potassium Chloride Carbon Dioxide Creatinine Glucose POC Glucose Calcium AST ALT Lactate Dehydrogenase C-Reactive Protein Total Protein Albumin Lymph Enumerat CD4/CD8 0.04 L % CD3 Cells 88 H Absolute CD3 Count 194 L % CD4 Cells 3 L Absolute CD4 Count 7 L % CD8 Cells 75 H Absolute CD8 Count 177 L % CD19 Cells 4 L Absolute CD19 Count 9 L HIV-1 RNA PCR copies/ml 328356 H HIV-1 RNA (PCR) log 5.72 H Miscellaneous Test Crossmatch 07/13/18 07/13/18 07/13/18 05:46 12:23 18:31 RBC Hgb Hct MCHC RDW Lymph % (Auto) Lymph # Seg Neutrophils % Abs Lymphs (Manual) D-Dimer POC ABG pH POC ABG pCO2 POC ABG pO2 Sodium Potassium Chloride Carbon Dioxide Creatinine Glucose POC Glucose 68 L 106 H 112 H Calcium AST ALT Lactate Dehydrogenase C-Reactive Protein Total Protein Albumin Lymph Enumerat CD4/CD8 % CD3 Cells Absolute CD3 Count % CD4 Cells Absolute CD4 Count % CD8 Cells Absolute CD8 Count % CD19 Cells Absolute CD19 Count HIV-1 RNA PCR copies/ml HIV-1 RNA (PCR) log Miscellaneous Test Crossmatch 07/14/18 07/14/18 07/14/18 04:19 05:36 05:36 RBC 2.99 L Hgb 8.8 L Hct 25.7 L MCHC RDW 15.5 H Lymph % (Auto) Lymph # Seg Neutrophils % Abs Lymphs (Manual) D-Dimer POC ABG pH 7.337 L POC ABG pCO2 POC ABG pO2 Sodium 135 L Potassium Chloride Carbon Dioxide 21 L Creatinine 0.7 L Glucose 123 H POC Glucose Calcium 8.2 L AST ALT Lactate Dehydrogenase C-Reactive Protein Total Protein Albumin Lymph Enumerat CD4/CD8 % CD3 Cells Absolute CD3 Count % CD4 Cells Absolute CD4 Count % CD8 Cells Absolute CD8 Count % CD19 Cells Absolute CD19 Count HIV-1 RNA PCR copies/ml HIV-1 RNA (PCR) log Miscellaneous Test Crossmatch 07/14/18 07/14/18 07/14/18 12:14 14:33 17:18 RBC Hgb Hct MCHC RDW Lymph % (Auto) Lymph # Seg Neutrophils % Abs Lymphs (Manual) D-Dimer POC ABG pH 7.325 L POC ABG pCO2 POC ABG pO2 75 L Sodium Potassium Chloride Carbon Dioxide Creatinine Glucose POC Glucose 174 H 114 H Calcium AST ALT Lactate Dehydrogenase C-Reactive Protein Total Protein Albumin Lymph Enumerat CD4/CD8 % CD3 Cells Absolute CD3 Count % CD4 Cells Absolute CD4 Count % CD8 Cells Absolute CD8 Count % CD19 Cells Absolute CD19 Count HIV-1 RNA PCR copies/ml HIV-1 RNA (PCR) log Miscellaneous Test Crossmatch 07/15/18 07/15/18 07/15/18 00:17 12:29 12:29 RBC 2.64 L Hgb 7.5 L Hct 22.9 L MCHC RDW 15.4 H Lymph % (Auto) 7.0 L Lymph # 0.4 L Seg Neutrophils % 89.6 H Abs Lymphs (Manual) D-Dimer POC ABG pH POC ABG pCO2 POC ABG pO2 Sodium Potassium Chloride Carbon Dioxide Creatinine 0.6 L Glucose 124 H POC Glucose 113 H Calcium 7.3 L AST ALT Lactate Dehydrogenase C-Reactive Protein Total Protein Albumin Lymph Enumerat CD4/CD8 % CD3 Cells Absolute CD3 Count % CD4 Cells Absolute CD4 Count % CD8 Cells Absolute CD8 Count % CD19 Cells Absolute CD19 Count HIV-1 RNA PCR copies/ml HIV-1 RNA (PCR) log Miscellaneous Test Crossmatch 07/15/18 07/16/18 07/16/18 14:09 04:46 07:21 RBC Hgb Hct MCHC RDW Lymph % (Auto) Lymph # Seg Neutrophils % Abs Lymphs (Manual) D-Dimer POC ABG pH 7.282 L POC ABG pCO2 52.6 H POC ABG pO2 63 L Sodium Potassium Chloride Carbon Dioxide Creatinine Glucose POC Glucose Calcium AST ALT Lactate Dehydrogenase C-Reactive Protein 2.70 H Total Protein Albumin Lymph Enumerat CD4/CD8 % CD3 Cells Absolute CD3 Count % CD4 Cells Absolute CD4 Count % CD8 Cells Absolute CD8 Count % CD19 Cells Absolute CD19 Count HIV-1 RNA PCR copies/ml HIV-1 RNA (PCR) log Miscellaneous Test Flexitest 1 H Crossmatch 07/16/18 07/16/18 07/16/18 07:21 07:21 16:16 RBC 2.48 L Hgb 7.2 L Hct 21.5 L MCHC RDW 15.7 H Lymph % (Auto) Lymph # Seg Neutrophils % Abs Lymphs (Manual) D-Dimer POC ABG pH 7.251 L POC ABG pCO2 62.2 H POC ABG pO2 Sodium 136 L Potassium Chloride Carbon Dioxide Creatinine 0.6 L Glucose 118 H POC Glucose Calcium 7.5 L AST ALT Lactate Dehydrogenase C-Reactive Protein Total Protein Albumin Lymph Enumerat CD4/CD8 % CD3 Cells Absolute CD3 Count % CD4 Cells Absolute CD4 Count % CD8 Cells Absolute CD8 Count % CD19 Cells Absolute CD19 Count HIV-1 RNA PCR copies/ml HIV-1 RNA (PCR) log Miscellaneous Test Crossmatch 07/17/18 07/18/18 07/18/18 04:01 01:10 03:10 RBC 2.20 L Hgb 6.5 L Hct 19.2 L* MCHC RDW 16.0 H Lymph % (Auto) 7.2 L Lymph # 0.5 L Seg Neutrophils % 89.9 H Abs Lymphs (Manual) D-Dimer POC ABG pH 7.245 L POC ABG pCO2 63.8 H POC ABG pO2 75 L Sodium Potassium Chloride Carbon Dioxide Creatinine Glucose POC Glucose Calcium AST ALT Lactate Dehydrogenase C-Reactive Protein Total Protein Albumin Lymph Enumerat CD4/CD8 % CD3 Cells Absolute CD3 Count % CD4 Cells Absolute CD4 Count % CD8 Cells Absolute CD8 Count % CD19 Cells Absolute CD19 Count HIV-1 RNA PCR copies/ml HIV-1 RNA (PCR) log Miscellaneous Test Crossmatch See Detail 07/18/18 07/18/18 07/18/18 04:54 05:02 12:59 RBC Hgb Hct MCHC RDW Lymph % (Auto) Lymph # Seg Neutrophils % Abs Lymphs (Manual) D-Dimer POC ABG pH 7.615 H POC ABG pCO2 32.6 L 48.8 H POC ABG pO2 79 L 118 H Sodium Potassium Chloride Carbon Dioxide Creatinine Glucose POC Glucose 164 H Calcium AST ALT Lactate Dehydrogenase C-Reactive Protein Total Protein Albumin Lymph Enumerat CD4/CD8 % CD3 Cells Absolute CD3 Count % CD4 Cells Absolute CD4 Count % CD8 Cells Absolute CD8 Count % CD19 Cells Absolute CD19 Count HIV-1 RNA PCR copies/ml HIV-1 RNA (PCR) log Miscellaneous Test Crossmatch 07/18/18 07/18/18 07/19/18 18:25 20:39 03:53 RBC Hgb Hct MCHC RDW Lymph % (Auto) Lymph # Seg Neutrophils % Abs Lymphs (Manual) D-Dimer POC ABG pH 7.339 L POC ABG pCO2 59.9 H 65.0 H POC ABG pO2 69 L Sodium Potassium Chloride Carbon Dioxide Creatinine Glucose POC Glucose 155 H Calcium AST ALT Lactate Dehydrogenase C-Reactive Protein Total Protein Albumin Lymph Enumerat CD4/CD8 % CD3 Cells Absolute CD3 Count % CD4 Cells Absolute CD4 Count % CD8 Cells Absolute CD8 Count % CD19 Cells Absolute CD19 Count HIV-1 RNA PCR copies/ml HIV-1 RNA (PCR) log Miscellaneous Test Crossmatch 07/19/18 07/19/18 07/19/18 08:10 08:10 10:52 RBC 2.51 L Hgb 7.4 L Hct 22.0 L MCHC RDW 15.5 H Lymph % (Auto) Lymph # Seg Neutrophils % Abs Lymphs (Manual) D-Dimer POC ABG pH POC ABG pCO2 POC ABG pO2 Sodium 130 L Potassium Chloride 89.0 L Carbon Dioxide 33 H Creatinine 0.4 L Glucose 150 H POC Glucose 173 H Calcium 7.5 L AST ALT Lactate Dehydrogenase C-Reactive Protein Total Protein Albumin Lymph Enumerat CD4/CD8 % CD3 Cells Absolute CD3 Count % CD4 Cells Absolute CD4 Count % CD8 Cells Absolute CD8 Count % CD19 Cells Absolute CD19 Count HIV-1 RNA PCR copies/ml HIV-1 RNA (PCR) log Miscellaneous Test Crossmatch 07/19/18 07/19/18 07/20/18 17:06 23:47 04:37 RBC Hgb Hct MCHC RDW Lymph % (Auto) Lymph # Seg Neutrophils % Abs Lymphs (Manual) D-Dimer POC ABG pH POC ABG pCO2 58.5 H POC ABG pO2 67 L Sodium Potassium Chloride Carbon Dioxide Creatinine Glucose POC Glucose 117 H 114 H Calcium AST ALT Lactate Dehydrogenase C-Reactive Protein Total Protein Albumin Lymph Enumerat CD4/CD8 % CD3 Cells Absolute CD3 Count % CD4 Cells Absolute CD4 Count % CD8 Cells Absolute CD8 Count % CD19 Cells Absolute CD19 Count HIV-1 RNA PCR copies/ml HIV-1 RNA (PCR) log Miscellaneous Test Crossmatch 07/20/18 07/20/18 07/21/18 06:20 06:20 04:18 RBC 2.69 L Hgb 7.8 L Hct 23.6 L MCHC RDW 15.5 H Lymph % (Auto) Lymph # Seg Neutrophils % Abs Lymphs (Manual) D-Dimer POC ABG pH 7.456 H POC ABG pCO2 60.4 H POC ABG pO2 64 L Sodium 134 L Potassium Chloride 89.2 L Carbon Dioxide 38 H Creatinine 0.7 L D Glucose 120 H POC Glucose Calcium 7.6 L AST ALT Lactate Dehydrogenase C-Reactive Protein Total Protein Albumin Lymph Enumerat CD4/CD8 % CD3 Cells Absolute CD3 Count % CD4 Cells Absolute CD4 Count % CD8 Cells Absolute CD8 Count % CD19 Cells Absolute CD19 Count HIV-1 RNA PCR copies/ml HIV-1 RNA (PCR) log Miscellaneous Test Crossmatch 07/21/18 07/21/18 07/22/18 04:35 04:35 04:16 RBC 2.62 L 2.37 L Hgb 7.7 L 7.0 L Hct 23.1 L 21.1 L MCHC RDW 15.4 H Lymph % (Auto) Lymph # Seg Neutrophils % Abs Lymphs (Manual) D-Dimer POC ABG pH POC ABG pCO2 POC ABG pO2 Sodium 129 L Potassium 5.3 H Chloride 85.3 L Carbon Dioxide 38 H Creatinine 0.4 L Glucose 108 H POC Glucose Calcium 8.0 L AST ALT Lactate Dehydrogenase C-Reactive Protein Total Protein Albumin Lymph Enumerat CD4/CD8 % CD3 Cells Absolute CD3 Count % CD4 Cells Absolute CD4 Count % CD8 Cells Absolute CD8 Count % CD19 Cells Absolute CD19 Count HIV-1 RNA PCR copies/ml HIV-1 RNA (PCR) log Miscellaneous Test Crossmatch 07/22/18 07/23/18 07/23/18 04:16 03:25 12:45 RBC Hgb Hct MCHC RDW Lymph % (Auto) Lymph # Seg Neutrophils % Abs Lymphs (Manual) D-Dimer POC ABG pH POC ABG pCO2 69.4 H POC ABG pO2 Sodium 132 L 125 L D Potassium 5.4 H 5.3 H Chloride 87.4 L 80.3 L Carbon Dioxide 38 H 38 H Creatinine 0.4 L 0.3 L Glucose 117 H 124 H POC Glucose Calcium 7.5 L 7.4 L AST ALT Lactate Dehydrogenase C-Reactive Protein Total Protein Albumin Lymph Enumerat CD4/CD8 % CD3 Cells Absolute CD3 Count % CD4 Cells Absolute CD4 Count % CD8 Cells Absolute CD8 Count % CD19 Cells Absolute CD19 Count HIV-1 RNA PCR copies/ml HIV-1 RNA (PCR) log Miscellaneous Test Crossmatch 07/23/18 07/24/18 07/24/18 23:52 04:30 04:30 RBC 2.12 L Hgb 6.3 L Hct 18.9 L* MCHC RDW Lymph % (Auto) Lymph # Seg Neutrophils % Abs Lymphs (Manual) D-Dimer POC ABG pH POC ABG pCO2 POC ABG pO2 Sodium 127 L Potassium 5.2 H Chloride 83.9 L Carbon Dioxide 39 H Creatinine 0.3 L Glucose POC Glucose 118 H Calcium 7.5 L AST ALT Lactate Dehydrogenase C-Reactive Protein Total Protein Albumin Lymph Enumerat CD4/CD8 % CD3 Cells Absolute CD3 Count % CD4 Cells Absolute CD4 Count % CD8 Cells Absolute CD8 Count % CD19 Cells Absolute CD19 Count HIV-1 RNA PCR copies/ml HIV-1 RNA (PCR) log Miscellaneous Test Crossmatch 07/24/18 07/24/18 07/24/18 05:11 05:30 07:50 RBC Hgb Hct MCHC RDW Lymph % (Auto) Lymph # Seg Neutrophils % Abs Lymphs (Manual) D-Dimer POC ABG pH 7.462 H POC ABG pCO2 58.7 H POC ABG pO2 79 L Sodium Potassium Chloride Carbon Dioxide Creatinine Glucose POC Glucose 145 H Calcium AST ALT Lactate Dehydrogenase C-Reactive Protein Total Protein Albumin Lymph Enumerat CD4/CD8 % CD3 Cells Absolute CD3 Count % CD4 Cells Absolute CD4 Count % CD8 Cells Absolute CD8 Count % CD19 Cells Absolute CD19 Count HIV-1 RNA PCR copies/ml HIV-1 RNA (PCR) log Miscellaneous Test Crossmatch See Detail 07/25/18 07/25/18 07/26/18 09:30 09:30 00:18 RBC 2.99 L Hgb 9.1 L Hct 27.0 L D MCHC RDW Lymph % (Auto) Lymph # Seg Neutrophils % Abs Lymphs (Manual) D-Dimer POC ABG pH POC ABG pCO2 POC ABG pO2 Sodium 131 L 135 L Potassium 5.1 H 5.5 H Chloride 84.4 L 88.4 L Carbon Dioxide 39 H 38 H Creatinine 0.3 L 0.3 L Glucose 133 H POC Glucose Calcium 8.0 L AST ALT Lactate Dehydrogenase C-Reactive Protein Total Protein Albumin Lymph Enumerat CD4/CD8 % CD3 Cells Absolute CD3 Count % CD4 Cells Absolute CD4 Count % CD8 Cells Absolute CD8 Count % CD19 Cells Absolute CD19 Count HIV-1 RNA PCR copies/ml HIV-1 RNA (PCR) log Miscellaneous Test Crossmatch 07/26/18 07/26/18 07/26/18 04:07 05:50 05:50 RBC 3.01 L Hgb 9.4 L Hct 27.2 L MCHC 35 H RDW Lymph % (Auto) 10.4 L Lymph # 0.9 L Seg Neutrophils % 84.2 H Abs Lymphs (Manual) D-Dimer POC ABG pH 7.456 H POC ABG pCO2 61.4 H POC ABG pO2 68 L Sodium 131 L Potassium 5.1 H Chloride 84.5 L Carbon Dioxide 39 H Creatinine 0.3 L Glucose POC Glucose Calcium AST 78 H ALT 71 H Lactate Dehydrogenase C-Reactive Protein Total Protein 6.0 L Albumin 2.5 L Lymph Enumerat CD4/CD8 % CD3 Cells Absolute CD3 Count % CD4 Cells Absolute CD4 Count % CD8 Cells Absolute CD8 Count % CD19 Cells Absolute CD19 Count HIV-1 RNA PCR copies/ml HIV-1 RNA (PCR) log Miscellaneous Test Crossmatch 07/26/18 14:56 RBC Hgb Hct MCHC RDW Lymph % (Auto) Lymph # Seg Neutrophils % Abs Lymphs (Manual) D-Dimer POC ABG pH POC ABG pCO2 66.0 H POC ABG pO2 56 L Sodium Potassium Chloride Carbon Dioxide Creatinine Glucose POC Glucose Calcium AST ALT Lactate Dehydrogenase C-Reactive Protein Total Protein Albumin Lymph Enumerat CD4/CD8 % CD3 Cells Absolute CD3 Count % CD4 Cells Absolute CD4 Count % CD8 Cells Absolute CD8 Count % CD19 Cells Absolute CD19 Count HIV-1 RNA PCR copies/ml HIV-1 RNA (PCR) log Miscellaneous Test Crossmatch Chest x-ray: image reviewed (persistent but overall improved R>L pneumonia) Allied health notes reviewed: nursing
[2018-07-27] MEDS: HEPARIN SUB-Q SCH ×2 (11:30→21:25)
[2018-07-27] MEDS: PEPCID PO SCH ×2 (11:32→21:25)
[2018-07-27] MEDS: CARDURA PO SCH (11:32)
[2018-07-27] MEDS: SODIUM CHLORIDE FLUSH SYRINGE 10 ML IV SCH ×2 (16:12→21:28)
[2018-07-27] MEDS: MIDAZOLAM 100 MG in NACL 0.9% 80 ML IV SCH (16:17)
--- NOTE | 2018-07-27 16:43 | Consultation ---
History of Present Illness Consult date: 07/27/18 Reason for consult: other (trach consult) Requesting physician: REID WARE Chief complaint: respiratory failure - History of present illness History of present illness: 37yo M with HIV and presented to the emergency room with shortness of breath. He was found have PCP pneumonia and suffered respiratory failure. The team has been unable to wean him off the ventilator for the past 17-18 days. We are being asked to evaluate the patient for tracheostomy and possible PEG tube placement. Patient is unable to participate in the interview. There are no family or friends available. He is a prisoner in [facility]. Past History Past Medical History: HIV/AIDS Past Surgical History: No surgical history, Other (reviewed) Social history: single, smoking Family history: no significant family history (reviewed) Medications and Allergies Allergies Allergy/AdvReac Type Severity Reaction Status Date / Time No Known Allergies Allergy Unverified 07/11/18 13:43 Home Medications Medication Instructions Recorded Confirmed Last Taken Type Fluticasone [Flonase] 1 spray NS DAILY 07/11/18 07/11/18 Unknown History Active Meds: Active Medications Acetaminophen (Tylenol) 650 mg FEEDTUBE Q6H PRN PRN Reason: Non Cardiac Pain or Temp>100.5 Last Admin: 07/21/18 19:30 Dose: 650 mg Documented by: Albuterol (Proventil) 2.5 mg IH Q3HRT PRN PRN Reason: Shortness Of Breath Last Admin: 07/26/18 12:07 Dose: 2.5 mg Documented by: Lipase/Protease/Amylase (Pancrejulius Dr 10,500 Unit) 1 each FEEDTUBE PRN PRN PRN Reason: For Clogged Feeding Tube Azithromycin (Zithromax) 1,200 mg PO Th [facility] Last Admin: 07/26/18 09:55 Dose: 1,200 mg Documented by: Docusate Sodium (Colace) 100 mg PO BID [facility] Last Admin: 07/27/18 10:00 Dose: 100 mg Documented by: Doxazosin Mesylate (Cardura) 2 mg PO QDAY [facility] Last Admin: 07/27/18 11:32 Dose: 2 mg Documented by: Famotidine (Pepcid) 20 mg PO BID [facility] Last Admin: 07/27/18 11:32 Dose: 20 mg Documented by: Fentanyl (Sublimaze) 50 mcg IV Q10MIN PRN PRN Reason: ANALGESIA Last Admin: 07/20/18 09:02 Dose: 50 mcg Documented by: Heparin Sodium (Porcine) (Heparin) 5,000 unit SUB-Q BID HE Last Admin: 07/27/18 11:30 Dose: 5,000 unit Documented by: Hydrophilic Ointment (Vaseline Lip Therapy) 1 applic TP Q2HR PRN PRN Reason: Dry Lips Fentanyl Citrate (Fentanyl Drip Premix) 2,000 mcg in 100 mls @ 3.065 mls/hr IV TITR HE; Protocol Last Admin: 07/27/18 15:18 Dose: 4 mcg/kg/hr, 12.26 mls/hr Documented by: Propofol (Diprivan 10 Mg/Ml) 1,000 mg in 100 mls @ 1.839 mls/hr IV TITR HE; Protocol Last Titration: 07/27/18 15:14 Dose: 10 mcg/kg/min, 3.678 mls/hr Documented by: Midazolam HCl 100 mg/ Sodium (Chloride) 100 mls @ 2 mls/hr IV TITR HE; Protocol Last Admin: 07/27/18 16:17 Dose: 4 mg/hr, 4 mls/hr Documented by: Trimethoprim/Sulfamethoxazole (300 mg/ Dextrose) 268.75 mls @ 350 mls/hr IV Q6HR HE; Protocol Last Admin: 07/27/18 12:30 Dose: 350 mls/hr Documented by: Methylprednisolone Sodium Succinate (Solu-Medrol) 40 mg IV Q8HR HE Last Admin: 07/27/18 16:14 Dose: 40 mg Documented by: Midazolam HCl (Versed) 2 mg IV Q2H PRN PRN Reason: AGITATION Last Admin: 07/26/18 17:42 Dose: 2 mg Documented by: Midazolam HCl (Versed) 2 mg IV Q10MIN PRN PRN Reason: Sedation Multi-Ingred Cream/Lotion/Oil/Oint (Artificial Tears Ophth Oint) 1 applic OU Q4HR PRN PRN Reason: Dry Eye(s) Quetiapine Fumarate (Seroquel) 300 mg PO BID [facility] Senna (Senokot) 17.2 mg PO QHS [facility] Last Admin: 07/26/18 23:16 Dose: 17.2 mg Documented by: Simple Syrup (Simple Syrup) 15 ml FEEDTUBE PRN PRN PRN Reason: Hypoglycemia Simple Syrup (Simple Syrup) 30 ml FEEDTUBE PRN PRN PRN Reason: Hypoglycemia Sodium Bicarbonate (Sodium Bicarbonate) 325 mg FEEDTUBE PRN PRN PRN Reason: For Clogged Feeding Tube Sodium Chloride (Sodium Chloride Flush Syringe 10 Ml) 10 ml IV BID HE Last Admin: 07/27/18 16:12 Dose: 10 ml Documented by: Sodium Chloride (Sodium Chloride Flush Syringe 10 Ml) 10 ml IV PRN PRN PRN Reason: LINE FLUSH Last Admin: 07/18/18 09:00 Dose: 10 ml Documented by: Review of Systems ROS unobtainable: due to endotracheal tube Exam Vital Signs BP 94/50 07/11/18 13:39 - General physical appearance Positive: no distress, no pain - ENT Positive: other (ETT and SBFT in place) - Neck Positive: no masses, no bruits, trachea midline, no venous distension, other (no prior incisions. No signs of infection.) - Respiratory Positive: normal expansion - Cardiovascular Rhythm: regular - Abdomen Abdomen: Present: soft, distended. Absent: guarding, rigid, wound, surgical scars - Integumentary no rash, no growths, no abnormal pigmentation Results - Labs 07/26/18 05:50 07/26/18 05:50 Abnormal lab results 07/27/18 Range/Units 14:26 POC ABG pH 7.472 H (7.35-7.45) POC ABG pCO2 57.4 H (35-45) POC ABG pO2 59 L (80-105) - Imaging Chest x-ray: report reviewed, image reviewed Assessment and Plan - Patient Problems (1) Respiratory failure requiring intubation Current Visit: Yes Status: Acute Plan to address problem: Pt stable. I spoke with case management team to understand the process of getting consent for someone in the detention system. This instructed me to call the medical services coordinator at the [facility]. I spoke with Dr. Miky Jordan today. He gave me verbal consent to move forward with tracheostomy. Dr. Vargas and I will do two-physician consent as this is a medical necessity situation. We will coordinate the bedside percutaneous tracheostomy with the OR. Would recommend holding off on the PEG at this time as patient has a distended abdomen. This was discussed with Dr. Vargas. Please call with questions. Time=60min
--- NOTE | 2018-07-27 18:01 | Progress Note ---
Assessment and Plan Assessment and plan: Patient is a 37 yo man with a history of HIV and tobacco dependency who presents from [facility] to [facility] ED with sob and cough. Pt admitted to [facility] and initiated on Pneumonia protocol. In the ED, temp 99.8, HR 104, R 29, O2 sat 77%, BP 94/50. WBC 6.1, Hg 9.6, Plat 398. Creat 0.6. Blood culture 07/11/2018 no growth today. Sputum culture 07/11/2018 no growth today. Chest CT showed bilateral patchy and somewhat confluent alveolar infiltrates and interstitial infiltrates. No effusions. Mild cardiomegaly. Patient required emergent intubation following admission to the [facility]. Patient unfortunately has remained on full ventilatory support and very resistant hypoxia currently on high level FIO2.Patient unfortunately has remained on full ventilatory support and very resistant hypoxia currently on high level FIO2. * CT head: No CT evidence of acute intracranial abnormality. Pansinus disease * CTA CHEST: IMPRESSION: No pulmonary embolus. Bilateral patchy and somewhat confluent alveolar infiltrates and interstitial infiltrates. Noeffusions. Mild cardiomegaly. Runnings likely reflect a viral pneumonia or inhalational process * CXR IMPRESSION: Heart size is normal.There are bilateral lower lobe infiltrates. These are slightly worse than the prior study.. There is no pleural effusion or pneumothorax. Endotracheal tube is in the mid trachea. NG tube is in the stomach. There is a right-sided PICC line. The tip is in the superior vena cava.. Acute Hypoxic respiratory failure now on mechanical ventilation >96 HRS: Cont vent support. Trach and peg ordered. all other management per Pulmonary. Still with hypoxia. 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 Severe Protein Malnutrition: Infrastructure Developer to follow AIDS with history of noncompliance: ID following Consitpation: miralax AOCD: monitor cbc closely acute blood loss anemia: Transfuse 2 units prbc and monitor Elevated d/DIMER- NO PE noted on CTA chest Restraint renewed From Snf, no NOK/family listed, Case management to find NOK; poor prognosis CCT 35 minutes The high probability of a clinically significant, sudden or life threatening deterioration of the [pulmonary, system(s) required my full and direct attention, intervention and personal management. The aggregate critical care time was [50] minutes. This time is in addition to time spent performing reported procedures but includes the following: [x] Data Review and interpretation [x] Patient assessment and monitoring of vital signs [x] Documentation [x] Medication orders and management . History Interval history: Patient seen and examined, remains on mechanical ventilation, No other new complaints noted by nursing staff. Possible trach and peg Hospitalist Physical - Physical exam Narrative exam: Narrative exam: Gen: thin, critically ill, intubated and sedated and restraints in place HEENT: NCAT, EOMI, PERRL, OP ETT and NGT in place Neck: supple, no JVD CVS/Heart: Regular tachycardia, normal S1S2, pulses present bilaterally Chest/Lungs: tachypenic, diminished bs bilateral, Symmetrical chest expansion, good air entry bilaterally GI/Abdomen: soft, good bowel sounds, no guarding or rebound /Bladder: no suprapubic tenderness, Extermity/Skin: poor skin tone MSK: sedated Neuro: sedated Psych:sedated - Constitutional Vitals: Temp Pulse Resp BP Pulse Ox 98.6 F 113 H 25 H 105/69 93 07/27/18 12:00 07/27/18 16:00 07/27/18 16:00 07/27/18 16:00 07/27/18 16:00 General appearance: Present: no acute distress, well-nourished Results - Labs CBC & Chem 7: 07/26/18 05:50 07/26/18 05:50 Labs: Laboratory Last Values WBC 8.3 K/mm3 (4.5-11.0) 07/26/18 05:50 RBC 3.01 M/mm3 (3.65-5.03) L 07/26/18 05:50 Hgb 9.4 gm/dl (11.8-15.2) L 07/26/18 05:50 Hct 27.2 % (35.5-45.6) L 07/26/18 05:50 MCV 90 fl (84-94) 07/26/18 05:50 MCH 31 pg (28-32) 07/26/18 05:50 MCHC 35 % (32-34) H 07/26/18 05:50 RDW 14.9 % (13.2-15.2) 07/26/18 05:50 Plt Count 399 K/mm3 (140-440) 07/26/18 05:50 Lymph % (Auto) 10.4 % (13.4-35.0) L 07/26/18 05:50 [place] % (Auto) 5.0 % (0.0-7.3) 07/26/18 05:50 Eos % (Auto) 0.1 % (0.0-4.3) 07/26/18 05:50 Baso % (Auto) 0.3 % (0.0-1.8) 07/26/18 05:50 Lymph # 0.9 K/mm3 (1.2-5.4) L 07/26/18 05:50 [place] # 0.4 K/mm3 (0.0-0.8) 07/26/18 05:50 Eos # 0.0 K/mm3 (0.0-0.4) 07/26/18 05:50 Baso # 0.0 K/mm3 (0.0-0.1) 07/26/18 05:50 Add Manual Diff Complete 07/25/18 09:30 Total Counted 100 07/25/18 09:30 Seg Neutrophils % 84.2 % (40.0-70.0) H 07/26/18 05:50 Seg Neuts % (Manual) 63.0 % (40.0-70.0) 07/25/18 09:30 0 % 07/25/18 09:30 35.0 % (13.4-35.0) 07/25/18 09:30 Reactive Lymphs % (Man) 0 % 07/25/18 09:30 1.0 % (0.0-7.3) 07/25/18 09:30 0 % (0.0-4.3) 07/25/18 09:30 0 % (0.0-1.8) 07/25/18 09:30 0 % 07/25/18 09:30 1.0 % 07/25/18 09:30 0 % 07/25/18 09:30 0 % 07/25/18 09:30 Nucleated RBC % Not Reportable 07/25/18 09:30 Seg Neutrophils # 7.0 K/mm3 (1.8-7.7) 07/26/18 05:50 Seg Neutrophils # Man 4.9 K/mm3 (1.8-7.7) 07/25/18 09:30 Band Neutrophils # 0.0 K/mm3 07/25/18 09:30 Abs Lymphs (Manual) 220 cells/uL (850-3900) L 07/12/18 19:29 2.7 K/mm3 (1.2-5.4) 07/25/18 09:30 Abs React Lymphs (Man) 0.0 K/mm3 07/25/18 09:30 0.1 K/mm3 (0.0-0.8) 07/25/18 09:30 0.0 K/mm3 (0.0-0.4) 07/25/18 09:30 0.0 K/mm3 (0.0-0.1) 07/25/18 09:30 0.0 K/mm3 07/25/18 09:30 0.1 K/mm3 07/25/18 09:30 0.0 K/mm3 07/25/18 09:30 Blast Cells # 0.0 K/mm3 07/25/18 09:30 WBC Morphology Not Reportable 07/25/18 09:30 Hypersegmented Neuts Not Reportable 07/25/18 09:30 Hyposegmented Neuts Not Reportable 07/25/18 09:30 Hypogranular Neuts Not Reportable 07/25/18 09:30 Not Reportable 07/25/18 09:30 Not Reportable 07/25/18 09:30 Not Reportable 07/25/18 09:30 Not Reportable 07/25/18 09:30 Not Reportable 07/25/18 09:30 Not Reportable 07/25/18 09:30 Consistent w auto 07/25/18 09:30 Not Reportable 07/25/18 09:30 Plt Clumps, EDTA Not Reportable 07/25/18 09:30 Not Reportable 07/25/18 09:30 Not Reportable 07/25/18 09:30 Not Reportable 07/25/18 09:30 Plt Morphology Comment Not Reportable 07/25/18 09:30 RBC Morphology Not Reportable 07/25/18 09:30 Dimorphic RBCs Not Reportable 07/25/18 09:30 Few 07/25/18 09:30 Not Reportable 07/25/18 09:30 Not Reportable 07/25/18 09:30 1+ 07/25/18 09:30 Not Reportable 07/25/18 09:30 Few 07/25/18 09:30 Not Reportable 07/25/18 09:30 Not Reportable 07/25/18 09:30 Not Reportable 07/25/18 09:30 Rare 07/25/18 09:30 Not Reportable 07/25/18 09:30 Not Reportable 07/25/18 09:30 Not Reportable 07/25/18 09:30 Not Reportable 07/25/18 09:30 Not Reportable 07/25/18 09:30 Not Reportable 07/25/18 09:30 Not Reportable 07/25/18 09:30 Not Reportable 07/25/18 09:30 Not Reportable 07/25/18 09:30 Acanthocytes (Spur) Not Reportable 07/25/18 09:30 Rouleaux Not Reportable 07/25/18 09:30 Not Reportable 07/25/18 09:30 Not Reportable 07/25/18 09:30 Not Reportable 07/25/18 09:30 Not Reportable 07/25/18 09:30 Hem Pathologist Commnt No 07/25/18 09:30 1298.70 ng/mlDDU (0-234) H 07/11/18 15:04 POC ABG pH 7.472 (7.35-7.45) H 07/27/18 14:26 POC ABG pCO2 57.4 (35-45) H 07/27/18 14:26 POC ABG pO2 59 (80-105) L 07/27/18 14:26 POC ABG HCO3 42.0 (22-26 mml/L) 07/27/18 14:26 POC ABG Total CO2 44 (23-27mmol/L) 07/27/18 14:26 POC ABG O2 Sat 91 07/27/18 14:26 POC ABG Base Excess 18 ((-2) - (+3)mmol/L) 07/27/18 14:26 45 % 07/27/18 14:26 Sodium 131 mmol/L (137-145) L 07/26/18 05:50 Potassium 5.1 mmol/L (3.6-5.0) H 07/26/18 05:50 Chloride 84.5 mmol/L (98-107) L 07/26/18 05:50 Carbon Dioxide 39 mmol/L (22-30) H 07/26/18 05:50 13 mmol/L 07/26/18 05:50 BUN 16 mg/dL (9-20) 07/26/18 05:50 0.3 mg/dL (0.8-1.5) L 07/26/18 05:50 Estimated GFR > 60 ml/min 07/26/18 05:50 53 % 07/26/18 05:50 Glucose 100 mg/dL (75-100) 07/26/18 05:50 POC Glucose 95 (70-105) 07/24/18 13:06 Lactic Acid 1.80 mmol/L (0.7-2.0) 07/11/18 21:01 Calcium 8.8 mg/dL (8.4-10.2) 07/26/18 05:50 < 0.20 mg/dL (0.1-1.2) 07/26/18 05:50 AST 78 units/L (5-40) H 07/26/18 05:50 ALT 71 units/L (7-56) H 07/26/18 05:50 76 units/L (35-129) 07/26/18 05:50 731 units/L (91-180) H 07/12/18 19:29 < 0.010 ng/mL (0.00-0.029) 07/11/18 15:04 2.70 mg/dL (0.00-1.30) H 07/15/18 14:09 NT-Pro-B Natriuret Pep 249.7 pg/mL (0-450) 07/11/18 15:04 6.0 g/dL (6.3-8.2) L 07/26/18 05:50 2.5 g/dL (3.9-5) L 07/26/18 05:50 0.7 % 07/26/18 05:50 Triglycerides 125 mg/dL (2-149) 07/25/18 04:26 Yellow (Yellow) 07/15/18 14:14 Clear (Clear) 07/15/18 14:14 6.0 (5.0-7.0) 07/15/18 14:14 Ur Specific [place] 1.015 (1.003-1.030) 07/15/18 14:14 30 mg/dl mg/dL (Negative) 07/15/18 14:14 Neg mg/dL (Negative) 07/15/18 14:14 Neg mg/dL (Negative) 07/15/18 14:14 Neg (Negative) 07/15/18 14:14 Neg (Negative) 07/15/18 14:14 Neg (Negative) 07/15/18 14:14 < 2.0 mg/dL (<2.0) 07/15/18 14:14 Ur Leukocyte Esterase Neg (Negative) 07/15/18 14:14 2.0 /HPF (0.0-6.0) 07/15/18 14:14 6.0 /HPF (0.0-6.0) 07/15/18 14:14 21 mmol/L 07/19/18 14:27 Lymph Enumerat CD4/CD8 0.04 (0.86-5.00) L 07/12/18 19:29 % CD3 Cells 88 % (57-85) H 07/12/18 19:29 194 cells/uL (840-3060) L 07/12/18 19:29 % CD4 Cells 3 % (30-61) L 07/12/18 19:29 7 cells/uL (490-1740) L 07/12/18 19:29 % CD8 Cells 75 % (12-42) H 07/12/18 19:29 177 cells/uL (180-1170) L 07/12/18 19:29 % CD19 Cells 4 % (6-29) L 07/12/18 19:29 9 cells/uL (110-660) L 07/12/18 19:29 RPR Nonreactive (Nonreactive) 07/12/18 23:38 CMV DNA PCR log copper plate printer/mL See scanned result 07/15/18 14:09 Hepatitis A IgM Ab Non-reactive (NonReactive) 07/12/18 23:38 Hep Bs Antigen Non-reactive (Negative) 07/12/18 23:38 Hep B Core IgM Ab Non-reactive (NonReactive) 07/12/18 23:38 Non-reactive (NonReactive) 07/12/18 23:38 HIV-1 RNA PCR copies/ml [id number] Copies/mL H 07/12/18 19:29 5.72 Log cps/mL H 07/12/18 19:29 Flexitest 1 H 07/16/18 07:21 Blood Type O POSITIVE 07/24/18 07:50 Antibody Screen Positive 07/24/18 07:50 Prewarmed Antibody Srcn Positive 07/18/18 03:10 Antibody Identification Anti-Adrianna 07/24/18 07:50 Direct Antiglob Test Negative 07/24/18 07:50 NIKUNJ, Poly Interpret Negative 07/24/18 07:50 Crossmatch See Detail 07/24/18 07:50 Active Medications - Current Medications Current Medications: Generic Name Dose Route Start Last Admin Trade Name Freq PRN Reason Stop Dose Admin Acetaminophen 650 mg 07/12/18 18:07 07/21/18 19:30 Tylenol FEEDTUBE 650 mg Q6H PRN Administration Non Cardiac Pain or Temp>100.5 Albuterol 2.5 mg 07/11/18 17:16 07/26/18 12:07 Proventil IH 2.5 mg Q3HRT PRN Administration Shortness Of Breath Lipase/Protease/Amylase 1 each 07/13/18 12:[address] 10,500 Unit FEEDTUBE PRN PRN For Clogged Feeding Tube Azithromycin 1,200 mg 07/26/18 10:00 07/26/18 09:55 Zithromax PO 1,200 mg Th HE Administration Docusate Sodium 100 mg 07/15/18 12:00 07/27/18 10:00 Colace PO 100 mg BID HE Administration Doxazosin Mesylate 2 mg 07/18/18 12:00 07/27/18 11:32 Cardura PO 2 mg QDAY HE Administration Famotidine 20 mg 07/16/18 22:00 07/27/18 11:32 Pepcid PO 20 mg BID HE Administration Fentanyl 50 mcg 07/12/18 00:26 07/20/18 09:02 Sublimaze IV 50 mcg Q10MIN PRN Administration ANALGESIA Heparin Sodium (Porcine) 5,000 unit 07/20/18 10:00 07/27/18 11:30 Heparin SUB-Q 5,000 unit BID HE Administration Hydrophilic Ointment 1 applic 07/12/18 13:30 Vaseline Lip Therapy TP Q2HR PRN Dry Lips Fentanyl Citrate 2,000 mcg in 100 mls @ 3.065 mls/hr 07/12/18 01:00 07/27/18 15:18 Fentanyl Drip Premix IV 4 mcg/kg/hr TITR HE 12.26 mls/hr Administration Protocol 1 MCG/KG/HR Propofol 1,000 mg in 100 mls @ 1.839 mls/hr 07/12/18 01:00 07/27/18 15:14 Diprivan 10 Mg/Ml IV 10 mcg/kg/min TITR HE 3.678 mls/hr Titration Protocol 5 MCG/KG/MIN Midazolam HCl 100 mg/ Sodium 100 mls @ 2 mls/hr 07/18/18 13:30 07/27/18 16:17 Chloride IV 4 mg/hr TITR HE 4 mls/hr Administration Protocol 2 MG/HR Trimethoprim/Sulfamethoxazole 268.75 mls @ 350 mls/hr 07/24/18 12:00 07/27/18 12:30 300 mg/ Dextrose IV 350 mls/hr Q6HR HE Administration Protocol Methylprednisolone Sodium Succinate 40 mg 07/16/18 14:00 07/27/18 16:14 Solu-Medrol IV 40 mg Q8HR HE Administration Midazolam HCl 2 mg 07/16/18 13:06 07/26/18 17:42 Versed IV 2 mg Q2H PRN Administration AGITATION Midazolam HCl 2 mg 07/18/18 12:44 Versed IV Q10MIN PRN Sedation Multi-Ingred Cream/Lotion/Oil/Oint 1 applic 07/12/18 13:30 Artificial Tears Ophth Oint OU Q4HR PRN Dry Eye(s) Quetiapine Fumarate 300 mg 07/27/18 22:00 Seroquel PO BID HE Senna 17.2 mg 07/26/18 22:00 07/26/18 23:16 Senokot PO 17.2 mg QHS HE Administration Simple Syrup 15 ml 07/13/18 12:30 Simple Syrup FEEDTUBE PRN PRN Hypoglycemia Simple Syrup 30 ml 07/13/18 12:30 Simple Syrup FEEDTUBE PRN PRN Hypoglycemia Sodium Bicarbonate 325 mg 07/13/18 12:30 Sodium Bicarbonate FEEDTUBE PRN PRN For Clogged Feeding Tube Sodium Chloride 10 ml 07/11/18 22:00 07/27/18 16:12 Sodium Chloride Flush Syringe 10 Ml IV 10 ml BID HE Administration Sodium Chloride 10 ml 07/11/18 17:16 07/18/18 09:00 Sodium Chloride Flush Syringe 10 Ml IV 10 ml PRN PRN Administration LINE FLUSH Nutrition/Malnutrition Assess - Dietary Evaluation Nutrition/Malnutrition Findings: Nutrition Notes Start: 07/12/18 09:38 Freq: Status: Active Protocol: Document 07/27/18 14:44 RM (Rec: 07/27/18 14:48 RM [id number]) Nutrition Notes Initial or Follow up Reassessment Current Diagnosis Sepsis,Respiratory Failure Other Pertinent Diagnosis Bilat pneu, HIV/AIDS, Diarrhea Current Diet Nepro at 45 ml/hr Labs/Tests K 5.1 Pertinent Medications REviewed Height 5 ft 11 in Weight 65 kg [place] Body Weight (kg) 78.18 BMI 20.0 Subjective/Other Information Observed Nepro infusing at 45 ml/hr. Per nurse pt is tolerating TF. Percent of energy/protein needs met: 100%/100% Burn Absent Trauma Absent #2 Nutrition Diagnosis Inadequate oral intake Diagnosis Progress(for reassessment Continues documentation) #1 Nutrition Diagnosis Malnutrition Diagnosis Progress(for reassessment Continues documentation) Is patient on ventilator? Yes Is Patient Ambulatory and/or Out of Bed No REE-([facility]-confined to bed) 1925.232 Calculation Used for Recommendations [facility] Additional Notes Pro needs 1.2-2g/k-130g/ day Fluid needs 1ml/kcal Nutrition Intervention Change Diet Order: TF Nutrition Support: Continue Nepro at 45ml/hr. Flush with 150ml q4h Kcal 1,944 Protein (gm) 87 Fluid (mL) 785 Goal #1 TF tolerance Goal #2 TF to continue to meet 90-100% energy and pro needs Goal #3 Wt maintenance and/or gain Anticipated Discharge Needs: Unable to determine at this time Follow-Up By: 08/01/18 Additional Comments Follow for TF tolerance, K lab
[2018-07-27] MEDS: SENOKOT PO SCH (22:15)
[2018-07-28] MEDS: BACTRIM IV SCH ×6 (00:40→17:57)
[2018-07-28] MEDS: D5W IV SCH ×6 (00:40→17:57)
[2018-07-28] MEDS: DIPRIVAN 10 MG/ML 1,000 MG/100 ML BOTTLE IV SCH ×3 (05:09→06:29)
[2018-07-28] MEDS: SOLU-Medrol IV SCH ×3 (06:08→21:49)
[2018-07-28] MEDS: fentaNYL DRIP Premix 2,000 MCG/100 ML BAG IV SCH ×3 (06:13→17:56)
[2018-07-28] MEDS: MIDAZOLAM 100 MG in NACL 0.9% 80 ML IV SCH (06:16)
[2018-07-28 06:37] LABS: Basophils % (Auto) 0.4 % (0.0-1.8); Eosinophils % (Auto) 0.3 % (0.0-4.3); Hematocrit 29.9 % (35.5-45.6); Lymphocytes # (Auto) 1.3 K/mm3 (1.2-5.4); Lymphocytes % (Auto) 14.5 % (13.4-35.0); Mean Corpuscular HGB Conc 34 % (32-34); Mean Corpuscular Volume 93 fl (84-94); Monocytes # (Auto) 0.3 K/mm3 (0.0-0.8); Monocytes % (Auto) 3.2 % (0.0-7.3); Platelet Count 451 K/mm3 (140-440); Red Blood Count 3.21 M/mm3 (3.65-5.03); Red Cell Distribution Width 15.4 % (13.2-15.2)
[2018-07-28 06:54] LABS: Alanine Aminotransferase 113 units/L (7-56); Albumin 2.5 g/dL (3.9-5); BUN/Creatinine Ratio 38; Blood Urea Nitrogen 15 mg/dL (9-20); Calcium 8.1 mg/dL (8.4-10.2); Hemolysis Index 16
--- NOTE | 2018-07-28 07:06 | Progress Note ---
Assessment and Plan Acute Hypoxic respiratory failure on mechanical ventilation Severe sepsis with septic shock Severe ARDS Sepsis present on admission with grater than 2 SOFA criteria PJP (pneumocystis jiroveci pneumonia) Diarrhea Hyponatermia Syndrome Hyperkalemia Moderate Protein Malnutrition AIDS ANEMIA Elevated d/DIMER- NO PE noted Nicotine dependance/Tobacco use disorder Continue to wean PEEP slowly, once PEEP is down to 6, start SBT trials. FIO2 is currently at 45% If unable to liberate from MVS in the next 3-4 days, will need to discuss tracheostomy placement Continue all supportive Daily ABG and CXR for next 2-3 days Discussed extensively in ICU-IDT rounds Continue all care as documented below -Transfuse to keep HgB>7g/dL -Titrate sedation to RASS of 0 to -1 -VAP bundle addressed - Continue lung protective strategies per ARDS net protocol -Permissive hypercapnia is acceptable - Antibiotics, anti-infectives per ID service. -ART per ID service, Antibiotic prophylaxis for OI per ID - Continue bronchodilators with pulmonary hygiene per RT - Continue full MVS -Daily CXR and ABG for now -Wean FIO2 for O2 sats>90%, at FIO2 of 45% at this time. Slowly wean PEEP, does not tolerate decreases in PEEP well - Monitor renal indices closely - Avoid nephrotoxic agents - Strict intake and output monitoring - Tube feedings, on Vital AF at 65ml/hour - Aspiration precautions. HOB >40 -Stress ulcer prophylaxis -VTE prophylaxis - Accuchecks with glycemic control. Target glucose of 140-180 mg/dL -Supportive transfusions as indicated for HgB<7g/dL - Maintenance of sleep -wake cycle - Mobility as tolerated by hemodynamics - Influenza and pneumonia vaccination per protocol ..care plan discussed at length with RN/RT at the bedside -Discussed in ICU-IDT rounds The high probability of a clinically significant, sudden or life threatening deterioration of the [pulmonary, cardiovascular] system(s) required my full and direct attention, intervention and personal management. The aggregate critical care time was [35] minutes. This time is in addition to time spent performing reported procedures but includes the following: [x] Data Review and interpretation [x] Patient assessment and monitoring of vital signs [x] Documentation [x] Medication orders and management Subjective Date of service: 07/28/18 Principal diagnosis: Acute hypoxemic resp failure; Bilateral pneumonia (PJP); HIV/AIDS Interval history: Patient is seen today for: Acute hypoxemic respiratory failure, on mechanical ventilatory support; Bilateral pneumonia, high suspicion for Pneumocystis jiroveci pneumonia; Human immunodeficiency virus/acquired immunodeficiency syndrome,noncompliant with therapy; Hyponatremia; Severe protein calorie malnutrition. Seen and examined at bedside; 24-hour events reviewed; nursing and respiratory care staff consulted; no adverse overnight events reported to me; remains critically ill with high ventilatory demands and on critical drips. Awake and alert, attempting to vocalize. Continues to require propofol, fentanyl and midazolam at maximal dose, yet RASS is at 1. No fevers, tolerating tube feedings, weaning FIO2, tolerating slow weaning of PEEP Objective Vital Signs - 12hr 07/27/18 07/27/18 07/27/18 19:58 20:00 21:00 Temperature 98.6 F Pulse Rate 122 H 106 H Pulse Rate [ 105 H From Monitor] Respiratory 30 H 14 Rate Blood Pressure 148/97 113/70 O2 Sat by Pulse 89 92 Oximetry 07/27/18 07/27/18 07/27/18 22:00 22:07 22:37 Temperature Pulse Rate 115 H 114 H 116 H Pulse Rate [ From Monitor] Respiratory 18 15 Rate Blood Pressure 91/54 91/54 95/52 O2 Sat by Pulse 90 87 93 Oximetry 07/27/18 07/27/18 07/28/18 23:00 23:25 00:00 Temperature 98.5 F Pulse Rate 117 H 106 H Pulse Rate [ 105 H From Monitor] Respiratory 15 15 Rate Blood Pressure 94/46 116/87 O2 Sat by Pulse 89 97 Oximetry 07/28/18 07/28/18 07/28/18 01:00 02:00 03:00 Temperature Pulse Rate 105 H 123 H 123 H Pulse Rate [ From Monitor] Respiratory 23 25 H 31 H Rate Blood Pressure 102/69 111/83 125/86 O2 Sat by Pulse 94 92 91 Oximetry 07/28/18 07/28/18 07/28/18 03:16 04:00 05:00 Temperature 98.8 F Pulse Rate 112 H 111 H Pulse Rate [ 105 H From Monitor] Respiratory 22 17 Rate Blood Pressure 107/68 106/69 O2 Sat by Pulse 93 94 Oximetry 07/28/18 07/28/18 07/28/18 06:00 06:09 06:12 Temperature Pulse Rate 114 H 115 H Pulse Rate [ From Monitor] Respiratory 31 H 20 Rate Blood Pressure 143/85 134/85 O2 Sat by Pulse 98 97 Oximetry Constitutional: no acute distress, other (young AAM; normocephalic and atraumatic) Eyes: non-icteric ENT: oropharynx moist, other (ETT 23 cm SHONA) Neck: supple, no lymphadenopathy, no JVD, other (no thyromegaly) Effort: mildly labored Ascultation: Bilateral: diminished breath sounds, rales Percussion: Bilateral: not dull Cardiovascular: regular rate and rhythm, other (S1,S2, no murmurs, gallops or rubs) Gastrointestinal: normoactive bowel sounds, soft, non-tender, non-distended Integumentary: normal Extremities: no cyanosis, no edema, pulses normal, no ischemia or petechiae Neurologic: normal mental status, non-focal exam, pupils equal and round, CN II- XII normal, motor strength normal and Psychiatric: other (sedated) CBC and BMP: 07/28/18 05:20 07/28/18 05:20 ABG, PT/INR, D-dimer: ABG POC ABG pH 7.328 (7.35-7.45) L 07/28/18 06:08 POC ABG pO2 70 (80-105) L 07/28/18 06:08 POC ABG HCO3 42.4 (22-26 mml/L) 07/28/18 06:08 POC ABG Total CO2 45 (23-27mmol/L) 07/28/18 06:08 POC ABG O2 Sat 91 07/28/18 06:08 PT/INR, D-dimer 1298.70 ng/mlDDU (0-234) H 07/11/18 15:04 Abnormal lab findings: Abnormal Labs 07/11/18 07/11/18 07/11/18 14:06 14:06 15:04 RBC 3.30 L Hgb 9.6 L Hct 28.7 L MCHC RDW Plt Count Lymph % (Auto) Lymph # Seg Neutrophils % Abs Lymphs (Manual) D-Dimer 1298.70 H POC ABG pH POC ABG pCO2 POC ABG pO2 Sodium 132 L Potassium Chloride Carbon Dioxide Creatinine 0.6 L Glucose 103 H POC Glucose Calcium 7.3 L AST ALT Lactate Dehydrogenase C-Reactive Protein Total Protein Albumin 2.1 L Triglycerides Lymph Enumerat CD4/CD8 % CD3 Cells Absolute CD3 Count % CD4 Cells Absolute CD4 Count % CD8 Cells Absolute CD8 Count % CD19 Cells Absolute CD19 Count HIV-1 RNA PCR copies/ml HIV-1 RNA (PCR) log Miscellaneous Test Crossmatch 07/11/18 07/11/18 07/12/18 17:36 22:15 00:25 RBC Hgb Hct MCHC RDW Plt Count Lymph % (Auto) Lymph # Seg Neutrophils % Abs Lymphs (Manual) D-Dimer POC ABG pH 7.289 L POC ABG pCO2 POC ABG pO2 66 L Sodium Potassium Chloride Carbon Dioxide Creatinine Glucose POC Glucose Calcium AST ALT Lactate Dehydrogenase 591 H C-Reactive Protein Total Protein Albumin Triglycerides Lymph Enumerat CD4/CD8 % CD3 Cells Absolute CD3 Count % CD4 Cells Absolute CD4 Count % CD8 Cells Absolute CD8 Count % CD19 Cells Absolute CD19 Count HIV-1 RNA PCR copies/ml HIV-1 RNA (PCR) log Miscellaneous Test see below H Crossmatch 07/12/18 07/12/18 07/12/18 00:41 05:37 19:29 RBC Hgb Hct MCHC RDW Plt Count Lymph % (Auto) Lymph # Seg Neutrophils % Abs Lymphs (Manual) D-Dimer POC ABG pH 7.302 L 7.275 L POC ABG pCO2 47.1 H POC ABG pO2 Sodium Potassium Chloride Carbon Dioxide Creatinine Glucose POC Glucose Calcium AST ALT Lactate Dehydrogenase 731 H C-Reactive Protein Total Protein Albumin Triglycerides Lymph Enumerat CD4/CD8 % CD3 Cells Absolute CD3 Count % CD4 Cells Absolute CD4 Count % CD8 Cells Absolute CD8 Count % CD19 Cells Absolute CD19 Count HIV-1 RNA PCR copies/ml HIV-1 RNA (PCR) log Miscellaneous Test Crossmatch 07/12/18 07/12/18 07/13/18 19:29 19:29 04:03 RBC Hgb Hct MCHC RDW Plt Count Lymph % (Auto) Lymph # Seg Neutrophils % Abs Lymphs (Manual) 220 L D-Dimer POC ABG pH 7.254 L POC ABG pCO2 49.2 H POC ABG pO2 Sodium Potassium Chloride Carbon Dioxide Creatinine Glucose POC Glucose Calcium AST ALT Lactate Dehydrogenase C-Reactive Protein Total Protein Albumin Triglycerides Lymph Enumerat CD4/CD8 0.04 L % CD3 Cells 88 H Absolute CD3 Count 194 L % CD4 Cells 3 L Absolute CD4 Count 7 L % CD8 Cells 75 H Absolute CD8 Count 177 L % CD19 Cells 4 L Absolute CD19 Count 9 L HIV-1 RNA PCR copies/ml 710885 H HIV-1 RNA (PCR) log 5.72 H Miscellaneous Test Crossmatch 07/13/18 07/13/18 07/13/18 05:46 12:23 18:31 RBC Hgb Hct MCHC RDW Plt Count Lymph % (Auto) Lymph # Seg Neutrophils % Abs Lymphs (Manual) D-Dimer POC ABG pH POC ABG pCO2 POC ABG pO2 Sodium Potassium Chloride Carbon Dioxide Creatinine Glucose POC Glucose 68 L 106 H 112 H Calcium AST ALT Lactate Dehydrogenase C-Reactive Protein Total Protein Albumin Triglycerides Lymph Enumerat CD4/CD8 % CD3 Cells Absolute CD3 Count % CD4 Cells Absolute CD4 Count % CD8 Cells Absolute CD8 Count % CD19 Cells Absolute CD19 Count HIV-1 RNA PCR copies/ml HIV-1 RNA (PCR) log Miscellaneous Test Crossmatch 07/14/18 07/14/18 07/14/18 04:19 05:36 05:36 RBC 2.99 L Hgb 8.8 L Hct 25.7 L MCHC RDW 15.5 H Plt Count Lymph % (Auto) Lymph # Seg Neutrophils % Abs Lymphs (Manual) D-Dimer POC ABG pH 7.337 L POC ABG pCO2 POC ABG pO2 Sodium 135 L Potassium Chloride Carbon Dioxide 21 L Creatinine 0.7 L Glucose 123 H POC Glucose Calcium 8.2 L AST ALT Lactate Dehydrogenase C-Reactive Protein Total Protein Albumin Triglycerides Lymph Enumerat CD4/CD8 % CD3 Cells Absolute CD3 Count % CD4 Cells Absolute CD4 Count % CD8 Cells Absolute CD8 Count % CD19 Cells Absolute CD19 Count HIV-1 RNA PCR copies/ml HIV-1 RNA (PCR) log Miscellaneous Test Crossmatch 07/14/18 07/14/18 07/14/18 12:14 14:33 17:18 RBC Hgb Hct MCHC RDW Plt Count Lymph % (Auto) Lymph # Seg Neutrophils % Abs Lymphs (Manual) D-Dimer POC ABG pH 7.325 L POC ABG pCO2 POC ABG pO2 75 L Sodium Potassium Chloride Carbon Dioxide Creatinine Glucose POC Glucose 174 H 114 H Calcium AST ALT Lactate Dehydrogenase C-Reactive Protein Total Protein Albumin Triglycerides Lymph Enumerat CD4/CD8 % CD3 Cells Absolute CD3 Count % CD4 Cells Absolute CD4 Count % CD8 Cells Absolute CD8 Count % CD19 Cells Absolute CD19 Count HIV-1 RNA PCR copies/ml HIV-1 RNA (PCR) log Miscellaneous Test Crossmatch 07/15/18 07/15/18 07/15/18 00:17 12:29 12:29 RBC 2.64 L Hgb 7.5 L Hct 22.9 L MCHC RDW 15.4 H Plt Count Lymph % (Auto) 7.0 L Lymph # 0.4 L Seg Neutrophils % 89.6 H Abs Lymphs (Manual) D-Dimer POC ABG pH POC ABG pCO2 POC ABG pO2 Sodium Potassium Chloride Carbon Dioxide Creatinine 0.6 L Glucose 124 H POC Glucose 113 H Calcium 7.3 L AST ALT Lactate Dehydrogenase C-Reactive Protein Total Protein Albumin Triglycerides Lymph Enumerat CD4/CD8 % CD3 Cells Absolute CD3 Count % CD4 Cells Absolute CD4 Count % CD8 Cells Absolute CD8 Count % CD19 Cells Absolute CD19 Count HIV-1 RNA PCR copies/ml HIV-1 RNA (PCR) log Miscellaneous Test Crossmatch 07/15/18 07/16/18 07/16/18 14:09 04:46 07:21 RBC Hgb Hct MCHC RDW Plt Count Lymph % (Auto) Lymph # Seg Neutrophils % Abs Lymphs (Manual) D-Dimer POC ABG pH 7.282 L POC ABG pCO2 52.6 H POC ABG pO2 63 L Sodium Potassium Chloride Carbon Dioxide Creatinine Glucose POC Glucose Calcium AST ALT Lactate Dehydrogenase C-Reactive Protein 2.70 H Total Protein Albumin Triglycerides Lymph Enumerat CD4/CD8 % CD3 Cells Absolute CD3 Count % CD4 Cells Absolute CD4 Count % CD8 Cells Absolute CD8 Count % CD19 Cells Absolute CD19 Count HIV-1 RNA PCR copies/ml HIV-1 RNA (PCR) log Miscellaneous Test Flexitest 1 H Crossmatch 07/16/18 07/16/18 07/16/18 07:21 07:21 16:16 RBC 2.48 L Hgb 7.2 L Hct 21.5 L MCHC RDW 15.7 H Plt Count Lymph % (Auto) Lymph # Seg Neutrophils % Abs Lymphs (Manual) D-Dimer POC ABG pH 7.251 L POC ABG pCO2 62.2 H POC ABG pO2 Sodium 136 L Potassium Chloride Carbon Dioxide Creatinine 0.6 L Glucose 118 H POC Glucose Calcium 7.5 L AST ALT Lactate Dehydrogenase C-Reactive Protein Total Protein Albumin Triglycerides Lymph Enumerat CD4/CD8 % CD3 Cells Absolute CD3 Count % CD4 Cells Absolute CD4 Count % CD8 Cells Absolute CD8 Count % CD19 Cells Absolute CD19 Count HIV-1 RNA PCR copies/ml HIV-1 RNA (PCR) log Miscellaneous Test Crossmatch 07/17/18 07/18/18 07/18/18 04:01 01:10 03:10 RBC 2.20 L Hgb 6.5 L Hct 19.2 L* MCHC RDW 16.0 H Plt Count Lymph % (Auto) 7.2 L Lymph # 0.5 L Seg Neutrophils % 89.9 H Abs Lymphs (Manual) D-Dimer POC ABG pH 7.245 L POC ABG pCO2 63.8 H POC ABG pO2 75 L Sodium Potassium Chloride Carbon Dioxide Creatinine Glucose POC Glucose Calcium AST ALT Lactate Dehydrogenase C-Reactive Protein Total Protein Albumin Triglycerides Lymph Enumerat CD4/CD8 % CD3 Cells Absolute CD3 Count % CD4 Cells Absolute CD4 Count % CD8 Cells Absolute CD8 Count % CD19 Cells Absolute CD19 Count HIV-1 RNA PCR copies/ml HIV-1 RNA (PCR) log Miscellaneous Test Crossmatch See Detail 07/18/18 07/18/18 07/18/18 04:54 05:02 12:59 RBC Hgb Hct MCHC RDW Plt Count Lymph % (Auto) Lymph # Seg Neutrophils % Abs Lymphs (Manual) D-Dimer POC ABG pH 7.615 H POC ABG pCO2 32.6 L 48.8 H POC ABG pO2 79 L 118 H Sodium Potassium Chloride Carbon Dioxide Creatinine Glucose POC Glucose 164 H Calcium AST ALT Lactate Dehydrogenase C-Reactive Protein Total Protein Albumin Triglycerides Lymph Enumerat CD4/CD8 % CD3 Cells Absolute CD3 Count % CD4 Cells Absolute CD4 Count % CD8 Cells Absolute CD8 Count % CD19 Cells Absolute CD19 Count HIV-1 RNA PCR copies/ml HIV-1 RNA (PCR) log Miscellaneous Test Crossmatch 07/18/18 07/18/18 07/19/18 18:25 20:39 03:53 RBC Hgb Hct MCHC RDW Plt Count Lymph % (Auto) Lymph # Seg Neutrophils % Abs Lymphs (Manual) D-Dimer POC ABG pH 7.339 L POC ABG pCO2 59.9 H 65.0 H POC ABG pO2 69 L Sodium Potassium Chloride Carbon Dioxide Creatinine Glucose POC Glucose 155 H Calcium AST ALT Lactate Dehydrogenase C-Reactive Protein Total Protein Albumin Triglycerides Lymph Enumerat CD4/CD8 % CD3 Cells Absolute CD3 Count % CD4 Cells Absolute CD4 Count % CD8 Cells Absolute CD8 Count % CD19 Cells Absolute CD19 Count HIV-1 RNA PCR copies/ml HIV-1 RNA (PCR) log Miscellaneous Test Crossmatch 07/19/18 07/19/18 07/19/18 08:10 08:10 10:52 RBC 2.51 L Hgb 7.4 L Hct 22.0 L MCHC RDW 15.5 H Plt Count Lymph % (Auto) Lymph # Seg Neutrophils % Abs Lymphs (Manual) D-Dimer POC ABG pH POC ABG pCO2 POC ABG pO2 Sodium 130 L Potassium Chloride 89.0 L Carbon Dioxide 33 H Creatinine 0.4 L Glucose 150 H POC Glucose 173 H Calcium 7.5 L AST ALT Lactate Dehydrogenase C-Reactive Protein Total Protein Albumin Triglycerides Lymph Enumerat CD4/CD8 % CD3 Cells Absolute CD3 Count % CD4 Cells Absolute CD4 Count % CD8 Cells Absolute CD8 Count % CD19 Cells Absolute CD19 Count HIV-1 RNA PCR copies/ml HIV-1 RNA (PCR) log Miscellaneous Test Crossmatch 07/19/18 07/19/18 07/20/18 17:06 23:47 04:37 RBC Hgb Hct MCHC RDW Plt Count Lymph % (Auto) Lymph # Seg Neutrophils % Abs Lymphs (Manual) D-Dimer POC ABG pH POC ABG pCO2 58.5 H POC ABG pO2 67 L Sodium Potassium Chloride Carbon Dioxide Creatinine Glucose POC Glucose 117 H 114 H Calcium AST ALT Lactate Dehydrogenase C-Reactive Protein Total Protein Albumin Triglycerides Lymph Enumerat CD4/CD8 % CD3 Cells Absolute CD3 Count % CD4 Cells Absolute CD4 Count % CD8 Cells Absolute CD8 Count % CD19 Cells Absolute CD19 Count HIV-1 RNA PCR copies/ml HIV-1 RNA (PCR) log Miscellaneous Test Crossmatch 07/20/18 07/20/18 07/21/18 06:20 06:20 04:18 RBC 2.69 L Hgb 7.8 L Hct 23.6 L MCHC RDW 15.5 H Plt Count Lymph % (Auto) Lymph # Seg Neutrophils % Abs Lymphs (Manual) D-Dimer POC ABG pH 7.456 H POC ABG pCO2 60.4 H POC ABG pO2 64 L Sodium 134 L Potassium Chloride 89.2 L Carbon Dioxide 38 H Creatinine 0.7 L D Glucose 120 H POC Glucose Calcium 7.6 L AST ALT Lactate Dehydrogenase C-Reactive Protein Total Protein Albumin Triglycerides Lymph Enumerat CD4/CD8 % CD3 Cells Absolute CD3 Count % CD4 Cells Absolute CD4 Count % CD8 Cells Absolute CD8 Count % CD19 Cells Absolute CD19 Count HIV-1 RNA PCR copies/ml HIV-1 RNA (PCR) log Miscellaneous Test Crossmatch 07/21/18 07/21/18 07/22/18 04:35 04:35 04:16 RBC 2.62 L 2.37 L Hgb 7.7 L 7.0 L Hct 23.1 L 21.1 L MCHC RDW 15.4 H Plt Count Lymph % (Auto) Lymph # Seg Neutrophils % Abs Lymphs (Manual) D-Dimer POC ABG pH POC ABG pCO2 POC ABG pO2 Sodium 129 L Potassium 5.3 H Chloride 85.3 L Carbon Dioxide 38 H Creatinine 0.4 L Glucose 108 H POC Glucose Calcium 8.0 L AST ALT Lactate Dehydrogenase C-Reactive Protein Total Protein Albumin Triglycerides Lymph Enumerat CD4/CD8 % CD3 Cells Absolute CD3 Count % CD4 Cells Absolute CD4 Count % CD8 Cells Absolute CD8 Count % CD19 Cells Absolute CD19 Count HIV-1 RNA PCR copies/ml HIV-1 RNA (PCR) log Miscellaneous Test Crossmatch 07/22/18 07/23/18 07/23/18 04:16 03:25 12:45 RBC Hgb Hct MCHC RDW Plt Count Lymph % (Auto) Lymph # Seg Neutrophils % Abs Lymphs (Manual) D-Dimer POC ABG pH POC ABG pCO2 69.4 H POC ABG pO2 Sodium 132 L 125 L D Potassium 5.4 H 5.3 H Chloride 87.4 L 80.3 L Carbon Dioxide 38 H 38 H Creatinine 0.4 L 0.3 L Glucose 117 H 124 H POC Glucose Calcium 7.5 L 7.4 L AST ALT Lactate Dehydrogenase C-Reactive Protein Total Protein Albumin Triglycerides Lymph Enumerat CD4/CD8 % CD3 Cells Absolute CD3 Count % CD4 Cells Absolute CD4 Count % CD8 Cells Absolute CD8 Count % CD19 Cells Absolute CD19 Count HIV-1 RNA PCR copies/ml HIV-1 RNA (PCR) log Miscellaneous Test Crossmatch 07/23/18 07/24/18 07/24/18 23:52 04:30 04:30 RBC 2.12 L Hgb 6.3 L Hct 18.9 L* MCHC RDW Plt Count Lymph % (Auto) Lymph # Seg Neutrophils % Abs Lymphs (Manual) D-Dimer POC ABG pH POC ABG pCO2 POC ABG pO2 Sodium 127 L Potassium 5.2 H Chloride 83.9 L Carbon Dioxide 39 H Creatinine 0.3 L Glucose POC Glucose 118 H Calcium 7.5 L AST ALT Lactate Dehydrogenase C-Reactive Protein Total Protein Albumin Triglycerides Lymph Enumerat CD4/CD8 % CD3 Cells Absolute CD3 Count % CD4 Cells Absolute CD4 Count % CD8 Cells Absolute CD8 Count % CD19 Cells Absolute CD19 Count HIV-1 RNA PCR copies/ml HIV-1 RNA (PCR) log Miscellaneous Test Crossmatch 07/24/18 07/24/18 07/24/18 05:11 05:30 07:50 RBC Hgb Hct MCHC RDW Plt Count Lymph % (Auto) Lymph # Seg Neutrophils % Abs Lymphs (Manual) D-Dimer POC ABG pH 7.462 H POC ABG pCO2 58.7 H POC ABG pO2 79 L Sodium Potassium Chloride Carbon Dioxide Creatinine Glucose POC Glucose 145 H Calcium AST ALT Lactate Dehydrogenase C-Reactive Protein Total Protein Albumin Triglycerides Lymph Enumerat CD4/CD8 % CD3 Cells Absolute CD3 Count % CD4 Cells Absolute CD4 Count % CD8 Cells Absolute CD8 Count % CD19 Cells Absolute CD19 Count HIV-1 RNA PCR copies/ml HIV-1 RNA (PCR) log Miscellaneous Test Crossmatch See Detail 07/25/18 07/25/18 07/26/18 09:30 09:30 00:18 RBC 2.99 L Hgb 9.1 L Hct 27.0 L D MCHC RDW Plt Count Lymph % (Auto) Lymph # Seg Neutrophils % Abs Lymphs (Manual) D-Dimer POC ABG pH POC ABG pCO2 POC ABG pO2 Sodium 131 L 135 L Potassium 5.1 H 5.5 H Chloride 84.4 L 88.4 L Carbon Dioxide 39 H 38 H Creatinine 0.3 L 0.3 L Glucose 133 H POC Glucose Calcium 8.0 L AST ALT Lactate Dehydrogenase C-Reactive Protein Total Protein Albumin Triglycerides Lymph Enumerat CD4/CD8 % CD3 Cells Absolute CD3 Count % CD4 Cells Absolute CD4 Count % CD8 Cells Absolute CD8 Count % CD19 Cells Absolute CD19 Count HIV-1 RNA PCR copies/ml HIV-1 RNA (PCR) log Miscellaneous Test Crossmatch 07/26/18 07/26/18 07/26/18 04:07 05:50 05:50 RBC 3.01 L Hgb 9.4 L Hct 27.2 L MCHC 35 H RDW Plt Count Lymph % (Auto) 10.4 L Lymph # 0.9 L Seg Neutrophils % 84.2 H Abs Lymphs (Manual) D-Dimer POC ABG pH 7.456 H POC ABG pCO2 61.4 H POC ABG pO2 68 L Sodium 131 L Potassium 5.1 H Chloride 84.5 L Carbon Dioxide 39 H Creatinine 0.3 L Glucose POC Glucose Calcium AST 78 H ALT 71 H Lactate Dehydrogenase C-Reactive Protein Total Protein 6.0 L Albumin 2.5 L Triglycerides Lymph Enumerat CD4/CD8 % CD3 Cells Absolute CD3 Count % CD4 Cells Absolute CD4 Count % CD8 Cells Absolute CD8 Count % CD19 Cells Absolute CD19 Count HIV-1 RNA PCR copies/ml HIV-1 RNA (PCR) log Miscellaneous Test Crossmatch 07/26/18 07/27/18 07/28/18 14:56 14:26 05:20 RBC Hgb Hct MCHC RDW Plt Count Lymph % (Auto) Lymph # Seg Neutrophils % Abs Lymphs (Manual) D-Dimer POC ABG pH 7.472 H POC ABG pCO2 66.0 H 57.4 H POC ABG pO2 56 L 59 L Sodium Potassium Chloride Carbon Dioxide Creatinine Glucose POC Glucose Calcium AST ALT Lactate Dehydrogenase C-Reactive Protein Total Protein Albumin Triglycerides 209 H Lymph Enumerat CD4/CD8 % CD3 Cells Absolute CD3 Count % CD4 Cells Absolute CD4 Count % CD8 Cells Absolute CD8 Count % CD19 Cells Absolute CD19 Count HIV-1 RNA PCR copies/ml HIV-1 RNA (PCR) log Miscellaneous Test Crossmatch 07/28/18 07/28/18 07/28/18 05:20 05:20 06:08 RBC 3.21 L Hgb 10.0 L Hct 29.9 L MCHC RDW 15.4 H Plt Count 451 H Lymph % (Auto) Lymph # Seg Neutrophils % 81.6 H Abs Lymphs (Manual) D-Dimer POC ABG pH 7.328 L POC ABG pCO2 POC ABG pO2 70 L Sodium 136 L Potassium Chloride 89.9 L Carbon Dioxide 38 H Creatinine 0.4 L Glucose POC Glucose Calcium 8.1 L AST 104 H ALT 113 H Lactate Dehydrogenase C-Reactive Protein Total Protein 6.2 L Albumin 2.5 L Triglycerides Lymph Enumerat CD4/CD8 % CD3 Cells Absolute CD3 Count % CD4 Cells Absolute CD4 Count % CD8 Cells Absolute CD8 Count % CD19 Cells Absolute CD19 Count HIV-1 RNA PCR copies/ml HIV-1 RNA (PCR) log Miscellaneous Test Crossmatch Allied health notes reviewed: nursing
[2018-07-28] MEDS: SODIUM CHLORIDE FLUSH SYRINGE 10 ML IV SCH ×2 (09:04→21:50)
[2018-07-28] MEDS: CARDURA PO SCH (09:05)
[2018-07-28] MEDS: VALGANCICLOVIR FEEDTUBE SCH ×2 (09:05→21:49)
[2018-07-28] MEDS: HEPARIN SUB-Q SCH ×2 (09:06→21:50)
[2018-07-28] MEDS: PEPCID PO SCH ×2 (09:07→21:49)
--- NOTE | 2018-07-28 09:30 | Progress Note ---
Assessment and Plan Assessment and plan: Patient is a 37 yo man with a history of HIV and tobacco dependency who presents from [facility] to [facility] ED with sob and cough. Pt admitted to [facility] and initiated on Pneumonia protocol. In the ED, temp 99.8, HR 104, R 29, O2 sat 77%, BP 94/50. WBC 6.1, Hg 9.6, Plat 398. Creat 0.6. Blood culture 07/11/2018 no growth today. Sputum culture 07/11/2018 no growth today. Chest CT showed bilateral patchy and somewhat confluent alveolar infiltrates and interstitial infiltrates. No effusions. Mild cardiomegaly. Patient required emergent intubation following admission to the [facility]. Patient unfortunately has remained on full ventilatory support and very resistant hypoxia currently on high level FIO2.Patient unfortunately has remained on full ventilatory support and very resistant hypoxia currently on high level FIO2. * CT head: No CT evidence of acute intracranial abnormality. Pansinus disease * CTA CHEST: IMPRESSION: No pulmonary embolus. Bilateral patchy and somewhat confluent alveolar infiltrates and interstitial infiltrates. Noeffusions. Mild cardiomegaly. Runnings likely reflect a viral pneumonia or inhalational process * CXR IMPRESSION: Heart size is normal.There are bilateral lower lobe infiltrates. These are slightly worse than the prior study.. There is no pleural effusion or pneumothorax. Endotracheal tube is in the mid trachea. NG tube is in the stomach. There is a right-sided PICC line. The tip is in the superior vena cava.. Acute Hypoxic respiratory failure now on mechanical ventilation >96 HRS: Cont vent support. SBT trials, and possible Trach and peg if no improvement. all other management per Pulmonary. Still with hypoxia. 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 Severe Protein Malnutrition: Drawer In [employer] Machine to follow AIDS with history of noncompliance: ID following Consitpation: miralax AOCD: monitor cbc closely acute blood loss anemia: Transfused 2 units prbc and monitor Elevated d/DIMER- NO PE noted on CTA chest Restraint renewed From Nursing Home, no NOK/family listed, Case management to find NOK; poor prognosis CCT 35 minutes The high probability of a clinically significant, sudden or life threatening deterioration of the [pulmonary, system(s) required my full and direct attention, intervention and personal management. The aggregate critical care time was [50] minutes. This time is in addition to time spent performing repor anny procedures but includes the following: [x] Data Review and interpretation [x] Patient assessment and monitoring of vital signs [x] Documentation [x] Medication orders and management . History Interval history: Patient seen and examined, remains on mechanical ventilation, No other new complaints noted by nursing staff. Possible trach and peg, weaning trial still ongoing Hospitalist Physical - Physical exam Narrative exam: Narrative exam: Gen: thin, critically ill, intubated and sedated and restraints in place HEENT: NCAT, EOMI, PERRL, OP ETT and NGT in place Neck: supple, no JVD CVS/Heart: Regular tachycardia, normal S1S2, pulses present bilaterally Chest/Lungs: tachypenic, diminished bs bilateral, Symmetrical chest expansion, good air entry bilaterally GI/Abdomen: soft, good bowel sounds, no guarding or rebound /Bladder: no suprapubic tenderness, Extermity/Skin: poor skin tone MSK: sedated Neuro: sedated Psych:sedated - Constitutional Vitals: Temp Pulse Resp BP Pulse Ox 98.0 F 110 H 17 117/76 97 07/28/18 08:00 07/28/18 09:05 07/28/18 08:01 07/28/18 09:05 07/28/18 08:41 General appearance: Present: no acute distress, well-nourished Results - Labs CBC & Chem 7: 07/28/18 05:20 07/28/18 05:20 Labs: Laboratory Last Values WBC 8.8 K/mm3 (4.5-11.0) 07/28/18 05:20 RBC 3.21 M/mm3 (3.65-5.03) L 07/28/18 05:20 Hgb 10.0 gm/dl (11.8-15.2) L 07/28/18 05:20 Hct 29.9 % (35.5-45.6) L 07/28/18 05:20 MCV 93 fl (84-94) 07/28/18 05:20 MCH 31 pg (28-32) 07/28/18 05:20 MCHC 34 % (32-34) 07/28/18 05:20 RDW 15.4 % (13.2-15.2) H 07/28/18 05:20 Plt Count 451 K/mm3 (140-440) H 07/28/18 05:20 Lymph % (Auto) 14.5 % (13.4-35.0) 07/28/18 05:20 [place] % (Auto) 3.2 % (0.0-7.3) 07/28/18 05:20 Eos % (Auto) 0.3 % (0.0-4.3) 07/28/18 05:20 Baso % (Auto) 0.4 % (0.0-1.8) 07/28/18 05:20 Lymph # 1.3 K/mm3 (1.2-5.4) 07/28/18 05:20 [place] # 0.3 K/mm3 (0.0-0.8) 07/28/18 05:20 Eos # 0.0 K/mm3 (0.0-0.4) 07/28/18 05:20 Baso # 0.0 K/mm3 (0.0-0.1) 07/28/18 05:20 Add Manual Diff Complete 07/25/18 09:30 Total Counted 100 07/25/18 09:30 Seg Neutrophils % 81.6 % (40.0-70.0) H 07/28/18 05:20 Seg Neuts % (Manual) 63.0 % (40.0-70.0) 07/25/18 09:30 0 % 07/25/18 09:30 35.0 % (13.4-35.0) 07/25/18 09:30 Reactive Lymphs % (Man) 0 % 07/25/18 09:30 1.0 % (0.0-7.3) 07/25/18 09:30 0 % (0.0-4.3) 07/25/18 09:30 0 % (0.0-1.8) 07/25/18 09:30 0 % 07/25/18 09:30 1.0 % 07/25/18 09:30 0 % 07/25/18 09:30 0 % 07/25/18 09:30 Nucleated RBC % Not Reportable 07/25/18 09:30 Seg Neutrophils # 7.2 K/mm3 (1.8-7.7) 07/28/18 05:20 Seg Neutrophils # Man 4.9 K/mm3 (1.8-7.7) 07/25/18 09:30 Band Neutrophils # 0.0 K/mm3 07/25/18 09:30 Abs Lymphs (Manual) 220 cells/uL (850-3900) L 07/12/18 19:29 2.7 K/mm3 (1.2-5.4) 07/25/18 09:30 Abs React Lymphs (Man) 0.0 K/mm3 07/25/18 09:30 0.1 K/mm3 (0.0-0.8) 07/25/18 09:30 0.0 K/mm3 (0.0-0.4) 07/25/18 09:30 0.0 K/mm3 (0.0-0.1) 07/25/18 09:30 0.0 K/mm3 07/25/18 09:30 0.1 K/mm3 07/25/18 09:30 0.0 K/mm3 07/25/18 09:30 Blast Cells # 0.0 K/mm3 07/25/18 09:30 WBC Morphology Not Reportable 07/25/18 09:30 Hypersegmented Neuts Not Reportable 07/25/18 09:30 Hyposegmented Neuts Not Reportable 07/25/18 09:30 Hypogranular Neuts Not Reportable 07/25/18 09:30 Not Reportable 07/25/18 09:30 Not Reportable 07/25/18 09:30 Not Reportable 07/25/18 09:30 Not Reportable 07/25/18 09:30 Not Reportable 07/25/18 09:30 Not Reportable 07/25/18 09:30 Consistent w auto 07/25/18 09:30 Not Reportable 07/25/18 09:30 Plt Clumps, EDTA Not Reportable 07/25/18 09:30 Not Reportable 07/25/18 09:30 Not Reportable 07/25/18 09:30 Not Reportable 07/25/18 09:30 Plt Morphology Comment Not Reportable 07/25/18 09:30 RBC Morphology Not Reportable 07/25/18 09:30 Dimorphic RBCs Not Reportable 07/25/18 09:30 Few 07/25/18 09:30 Not Reportable 07/25/18 09:30 Not Reportable 07/25/18 09:30 1+ 07/25/18 09:30 Not Reportable 07/25/18 09:30 Few 07/25/18 09:30 Not Reportable 07/25/18 09:30 Not Reportable 07/25/18 09:30 Not Reportable 07/25/18 09:30 Rare 07/25/18 09:30 Not Reportable 07/25/18 09:30 Not Reportable 07/25/18 09:30 Not Reportable 07/25/18 09:30 Not Reportable 07/25/18 09:30 Not Reportable 07/25/18 09:30 Not Reportable 07/25/18 09:30 Not Reportable 07/25/18 09:30 Not Reportable 07/25/18 09:30 Not Reportable 07/25/18 09:30 Acanthocytes (Spur) Not Reportable 07/25/18 09:30 Rouleaux Not Reportable 07/25/18 09:30 Not Reportable 07/25/18 09:30 Not Reportable 07/25/18 09:30 Not Reportable 07/25/18 09:30 Not Reportable 07/25/18 09:30 Hem Pathologist Commnt No 07/25/18 09:30 1298.70 ng/mlDDU (0-234) H 07/11/18 15:04 POC ABG pH 7.328 (7.35-7.45) L 07/28/18 06:08 POC ABG pCO2 57.4 (35-45) H 07/27/18 14:26 POC ABG pO2 70 (80-105) L 07/28/18 06:08 POC ABG HCO3 42.4 (22-26 mml/L) 07/28/18 06:08 POC ABG Total CO2 45 (23-27mmol/L) 07/28/18 06:08 POC ABG O2 Sat 91 07/28/18 06:08 POC ABG Base Excess 16 ((-2) - (+3)mmol/L) 07/28/18 06:08 60 % 07/28/18 06:08 Sodium 136 mmol/L (137-145) L 07/28/18 05:20 Potassium 4.5 mmol/L (3.6-5.0) 07/28/18 05:20 Chloride 89.9 mmol/L (98-107) L 07/28/18 05:20 Carbon Dioxide 38 mmol/L (22-30) H 07/28/18 05:20 13 mmol/L 07/28/18 05:20 BUN 15 mg/dL (9-20) 07/28/18 05:20 0.4 mg/dL (0.8-1.5) L 07/28/18 05:20 Estimated GFR > 60 ml/min 07/28/18 05:20 38 % 07/28/18 05:20 Glucose 81 mg/dL (75-100) 07/28/18 05:20 POC Glucose 95 (70-105) 07/24/18 13:06 Lactic Acid 1.80 mmol/L (0.7-2.0) 07/11/18 21:01 Calcium 8.1 mg/dL (8.4-10.2) L 07/28/18 05:20 0.20 mg/dL (0.1-1.2) 07/28/18 05:20 AST 104 units/L (5-40) H 07/28/18 05:20 ALT 113 units/L (7-56) H 07/28/18 05:20 89 units/L (35-129) 07/28/18 05:20 731 units/L (91-180) H 07/12/18 19:29 < 0.010 ng/mL (0.00-0.029) 07/11/18 15:04 2.70 mg/dL (0.00-1.30) H 07/15/18 14:09 NT-Pro-B Natriuret Pep 249.7 pg/mL (0-450) 07/11/18 15:04 6.2 g/dL (6.3-8.2) L 07/28/18 05:20 2.5 g/dL (3.9-5) L 07/28/18 05:20 0.7 % 07/28/18 05:20 Triglycerides 209 mg/dL (2-149) H 07/28/18 05:20 Yellow (Yellow) 07/15/18 14:14 Clear (Clear) 07/15/18 14:14 6.0 (5.0-7.0) 07/15/18 14:14 Ur Specific [place] 1.015 (1.003-1.030) 07/15/18 14:14 30 mg/dl mg/dL (Negative) 07/15/18 14:14 Neg mg/dL (Negative) 07/15/18 14:14 Neg mg/dL (Negative) 07/15/18 14:14 Neg (Negative) 07/15/18 14:14 Neg (Negative) 07/15/18 14:14 Neg (Negative) 07/15/18 14:14 < 2.0 mg/dL (<2.0) 07/15/18 14:14 Ur Leukocyte Esterase Neg (Negative) 07/15/18 14:14 2.0 /HPF (0.0-6.0) 07/15/18 14:14 6.0 /HPF (0.0-6.0) 07/15/18 14:14 21 mmol/L 07/19/18 14:27 Lymph Enumerat CD4/CD8 0.04 (0.86-5.00) L 07/12/18 19:29 % CD3 Cells 88 % (57-85) H 07/12/18 19:29 194 cells/uL (840-3060) L 07/12/18 19:29 % CD4 Cells 3 % (30-61) L 07/12/18 19:29 7 cells/uL (490-1740) L 07/12/18 19:29 % CD8 Cells 75 % (12-42) H 07/12/18 19:29 177 cells/uL (180-1170) L 07/12/18 19:29 % CD19 Cells 4 % (6-29) L 07/12/18 19:29 9 cells/uL (110-660) L 07/12/18 19:29 RPR Nonreactive (Nonreactive) 07/12/18 23:38 CMV DNA PCR log rn endoscopy/mL See scanned result 07/15/18 14:09 Hepatitis A IgM Ab Non-reactive (NonReactive) 07/12/18 23:38 Hep Bs Antigen Non-reactive (Negative) 07/12/18 23:38 Hep B Core IgM Ab Non-reactive (NonReactive) 07/12/18 23:38 Non-reactive (NonReactive) 07/12/18 23:38 HIV-1 RNA PCR copies/ml 092700 Copies/mL H 07/12/18 19:29 5.72 Log cps/mL H 07/12/18 19:29 Flexitest 1 H 07/16/18 07:21 Blood Type O POSITIVE 07/24/18 07:50 Antibody Screen Positive 07/24/18 07:50 Prewarmed Antibody Srcn Positive 07/18/18 03:10 Antibody Identification Anti-Adrianna 07/24/18 07:50 Direct Antiglob Test Negative 07/24/18 07:50 NIKUNJ, Poly Interpret Negative 07/24/18 07:50 Crossmatch See Detail 07/24/18 07:50 Active Medications - Current Medications Current Medications: Generic Name Dose Route Start Last Admin Trade Name Freq PRN Reason Stop Dose Admin Acetaminophen 650 mg 07/12/18 18:07 07/21/18 19:30 Tylenol FEEDTUBE 650 mg Q6H PRN Administration Non Cardiac Pain or Temp>100.5 Albuterol 2.5 mg 07/11/18 17:16 07/26/18 12:07 Proventil IH 2.5 mg Q3HRT PRN Administration Shortness Of Breath Lipase/Protease/Amylase 1 each 07/13/18 12:30 Pancreaze 10,500 Unit FEEDTUBE PRN PRN For Clogged Feeding Tube Azithromycin 1,200 mg 07/26/18 10:00 07/26/18 09:55 Zithromax PO 1,200 mg Th HE Administration Docusate Sodium 100 mg 07/15/18 12:00 07/27/18 22:15 Colace PO Not Given BID HE Doxazosin Mesylate 2 mg 07/18/18 12:00 07/28/18 09:05 Cardura PO 2 mg QDAY HE Administration Famotidine 20 mg 07/16/18 22:00 07/28/18 09:07 Pepcid PO 20 mg BID HE Administration Fentanyl 50 mcg 07/12/18 00:26 07/20/18 09:02 Sublimaze IV 50 mcg Q10MIN PRN Administration ANALGESIA Heparin Sodium (Porcine) 5,000 unit 07/20/18 10:00 07/28/18 09:06 Heparin SUB-Q 5,000 unit BID HE Administration Hydrophilic Ointment 1 applic 07/12/18 13:30 Vaseline Lip Therapy TP Q2HR PRN Dry Lips Fentanyl Citrate 2,000 mcg in 100 mls @ 3.065 mls/hr 07/12/18 01:00 07/28/18 09:24 Fentanyl Drip Premix IV 4 mcg/kg/hr TITR HE 12.26 mls/hr Administration Protocol 1 MCG/KG/HR Propofol 1,000 mg in 100 mls @ 1.839 mls/hr 07/12/18 01:00 07/28/18 06:29 Diprivan 10 Mg/Ml IV 20 mcg/kg/min TITR HE 7.356 mls/hr Administration Protocol 5 MCG/KG/MIN Midazolam HCl 100 mg/ Sodium 100 mls @ 2 mls/hr 07/18/18 13:30 07/28/18 06:16 Chloride IV 5 mg/hr TITR HE 5 mls/hr Administration Protocol 2 MG/HR Trimethoprim/Sulfamethoxazole 268.75 mls @ 350 mls/hr 07/24/18 12:00 07/28/18 07:33 300 mg/ Dextrose IV Not Given Q6HR [facility] Protocol Methylprednisolone Sodium Succinate 40 mg 07/16/18 14:00 07/28/18 06:08 Solu-Medrol IV 40 mg Q8HR HE Administration Midazolam HCl 2 mg 07/16/18 13:06 07/26/18 17:42 Versed IV 2 mg Q2H PRN Administration AGITATION Midazolam HCl 2 mg 07/18/18 12:44 Versed IV Q10MIN PRN Sedation Multi-Ingred Cream/Lotion/Oil/Oint 1 applic 07/12/18 13:30 Artificial Tears Ophth Oint OU Q4HR PRN Dry Eye(s) Quetiapine Fumarate 300 mg 07/27/18 22:00 07/28/18 09:04 Seroquel PO 300 mg BID HE Administration Senna 17.2 mg 07/26/18 22:00 07/27/18 22:15 Senokot PO Not Given QHS HE Simple Syrup 15 ml 07/13/18 12:30 Simple Syrup FEEDTUBE PRN PRN Hypoglycemia Simple Syrup 30 ml 07/13/18 12:30 Simple Syrup FEEDTUBE PRN PRN Hypoglycemia Sodium Bicarbonate 325 mg 07/13/18 12:30 Sodium Bicarbonate FEEDTUBE PRN PRN For Clogged Feeding Tube Sodium Chloride 10 ml 07/11/18 22:00 07/28/18 09:04 Sodium Chloride Flush Syringe 10 Ml IV 10 ml BID HE Administration Sodium Chloride 10 ml 07/11/18 17:16 07/18/18 09:00 Sodium Chloride Flush Syringe 10 Ml IV 10 ml PRN PRN Administration LINE FLUSH Nutrition/Malnutrition Assess - Dietary Evaluation Nutrition/Malnutrition Findings: Nutrition Notes Start: 07/12/18 09:38 Freq: Status: Active Protocol: Document 07/27/18 14:44 RM (Rec: 07/27/18 14:48 RM [id number]) Nutrition Notes Initial or Follow up Reassessment Current Diagnosis Sepsis,Respiratory Failure Other Pertinent Diagnosis Bilat pneu, HIV/AIDS, Diarrhea Current Diet Nepro at 45 ml/hr Labs/Tests K 5.1 Pertinent Medications REviewed Height 5 ft 11 in Weight 65 kg [place] Body Weight (kg) 78.18 BMI 20.0 Subjective/Other Information Observed Nepro infusing at 45 ml/hr. Per nurse pt is tolerating TF. Percent of energy/protein needs met: 100%/100% Burn Absent Trauma Absent #2 Nutrition Diagnosis Inadequate oral intake Diagnosis Progress(for reassessment Continues documentation) #1 Nutrition Diagnosis Malnutrition Diagnosis Progress(for reassessment Continues documentation) Is patient on ventilator? Yes Is Patient Ambulatory and/or Out of Bed No REE-([facility]-confined to bed) 1925.232 Calculation Used for Recommendations [facility] Additional Notes Pro needs 1.2-2g/k-130g/ day Fluid needs 1ml/kcal Nutrition Intervention Change Diet Order: TF Nutrition Support: Continue Nepro at 45ml/hr. Flush with 150ml q4h Kcal 1,944 Protein (gm) 87 Fluid (mL) 785 Goal #1 TF tolerance Goal #2 TF to continue to meet 90-100% energy and pro needs Goal #3 Wt maintenance and/or gain Anticipated Discharge Needs: Unable to determine at this time Follow-Up By: 08/01/18 Additional Comments Follow for TF tolerance, K lab
[2018-07-28] MEDS: COLACE PO SCH ×2 (10:44→23:33)
--- NOTE | 2018-07-28 10:45 | Progress Note ---
Assessment and Plan Assessment and Plan Cultures: Blood culture 07/11/2018 negative. Cryptococcal antigen: negative MRSA PCR: positive Blood culture 07/15/2018: negative Urine culture 07/15/2018: no growth Sputum culture 07/15/18: MRSA, Jannette CMV PCR 07/15/2018 33,392 copies Assessment: 37 y/o male currently in fdc with history of HIV infection of unknown duration, noncompliant with antiretroviral medication, severe malnutrition; admitted on 07/11/2018, brought by law enforcement, due to 2-week history of shortness of breath, generalized weakness and productive cough: 1) Sepsis with new septic shock: off pressors. no fever. Etiology most likely pneumonia. CRP 2.7. Procalcitonin 3.09. 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 CMV +/- MRSA. Sputum culture 07/11/[address] showed bilateral patchy and somewhat confluent alveolar infiltrates and interstitial infiltrates. No effusions. Mild cardiomegaly. Sputum culture 07/15 grew MRSA and Jannette. Completed linezolid x 10 days until 07/23. 3) HIV, presumed AIDS: Patient has not taken his HIV medication for at least 6 months prior due to his incarceration. On admission he reported 40lbs unintentional weight loss for 2 months and intermittent loose stools over the past 2 weeks. VL 523,000/ CD4=7. Pneumocystis Jirovecii positive. RPR nonreactive. Hepatitis panel negative. 4) Diarrhea: ? possible opportunistic infection. Resolved 5) Acute respiratory failure: from pneumonia. Still intubated. 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 - Continue bactrim IV and solumedrol IV D . - Contact isolation for MRSA. - HIV genotype pending. - Continue azithromycin 1200 mg PO qweek for MAC prophylaxis. - d/w RIVETER. Will follow Minda Lackey MD Infectious Diseases Donor Services Manager [facility] M [phone]. O [phone] Subjective Date of service: 07/28/18 Principal diagnosis: Acute hypoxemic resp failure; Bilateral pneumonia (PJP); HIV/AIDS Interval history: Afebrile, remains intubated, despite sedation open eyes and follows some commands. FIO2 60% and PEEP 6. No diarrhea. ROS unable to obtain Objective - Exam Narrative Exam: General appearance: Opens eyes, follows some commands, on the ventilator, Eyes: anicteric sclerae, moist conjunctivae; no lid-lag; PERRLA HENT: Atraumatic; oropharynx +ETT +NGT Neck: Trachea midline; supple, no thyromegaly or lymphadenopathy Lungs: Scattered wheezing CV: S1,S2. Tachycardic. Abdomen: Soft, non-tender; no masses or hepatosplenomegaly : +loving catheter Extremities: No peripheral edema or extremity lymphadenopathy Skin: Normal temperature, turgor and texture; no rash, ulcers or subcutaneous nodules Psych: sedated Neuro: Opens eyes, follows some commands, moves extremities Lines: RUE PICC, site clean. - Constitutional Vitals: Vital Signs Temp Pulse Resp BP Pulse Ox 98.0 F 120 H 17 102/57 90 07/28/18 08:00 07/28/18 10:00 07/28/18 10:00 07/28/18 10:00 07/28/18 10:00 Temperature -Last 24 Hours Temperature 98.0 F Temperature 98.8 F Temperature 98.5 F Temperature 98.6 F Temperature 98.8 F Temperature 98.6 F - Labs CBC & Chem 7: 07/28/18 05:20 07/28/18 05:20 Labs: Abnormal lab results 07/27/18 07/28/18 07/28/18 Range/Units 14:26 05:20 05:20 RBC 3.21 L (3.65-5.03) M/mm3 Hgb 10.0 L (11.8-15.2) gm/dl Hct 29.9 L (35.5-45.6) % RDW 15.4 H (13.2-15.2) % Plt Count 451 H (140-440) K/mm3 Seg Neutrophils % 81.6 H (40.0-70.0) % POC ABG pH 7.472 H (7.35-7.45) POC ABG pCO2 57.4 H (35-45) POC ABG pO2 59 L (80-105) Sodium (137-145) mmol/L Chloride (98-107) mmol/L Carbon Dioxide (22-30) mmol/L Creatinine (0.8-1.5) mg/dL Calcium (8.4-10.2) mg/dL AST (5-40) units/L ALT (7-56) units/L Total Protein (6.3-8.2) g/dL Albumin (3.9-5) g/dL Triglycerides 209 H (2-149) mg/dL 07/28/18 07/28/18 Range/Units 05:20 06:08 RBC (3.65-5.03) M/mm3 Hgb (11.8-15.2) gm/dl Hct (35.5-45.6) % RDW (13.2-15.2) % Plt Count (140-440) K/mm3 Seg Neutrophils % (40.0-70.0) % POC ABG pH 7.328 L (7.35-7.45) POC ABG pCO2 (35-45) POC ABG pO2 70 L (80-105) Sodium 136 L (137-145) mmol/L Chloride 89.9 L (98-107) mmol/L Carbon Dioxide 38 H (22-30) mmol/L Creatinine 0.4 L (0.8-1.5) mg/dL Calcium 8.1 L (8.4-10.2) mg/dL AST 104 H (5-40) units/L ALT 113 H (7-56) units/L Total Protein 6.2 L (6.3-8.2) g/dL Albumin 2.5 L (3.9-5) g/dL Triglycerides (2-149) mg/dL
[2018-07-28] MEDS ORDERED: NACL 0.9% 1000 ML 1,000 ML IV ONE (12:28)
[2018-07-28] MEDS: SENOKOT PO SCH (23:32)
[2018-07-29] MEDS: BACTRIM IV SCH ×4 (01:38→17:38)
[2018-07-29] MEDS: D5W IV SCH ×4 (01:38→17:38)
[2018-07-29] MEDS: fentaNYL DRIP Premix 2,000 MCG/100 ML BAG IV SCH ×3 (02:46→18:58)
[2018-07-29] MEDS: SOLU-Medrol IV SCH ×3 (06:26→22:33)
--- NOTE | 2018-07-29 08:11 | Progress Note ---
Assessment and Plan Assessment and plan: Patient is a 37 yo man with a history of HIV and tobacco dependency who presents from [facility] to [facility] ED with sob and cough. Pt admitted to [facility] and initiated on Pneumonia protocol. In the ED, temp 99.8, HR 104, R 29, O2 sat 77%, BP 94/50. WBC 6.1, Hg 9.6, Plat 398. Creat 0.6. Blood culture 07/11/2018 no growth today. Sputum culture 07/11/2018 no growth today. Chest CT showed bilateral patchy and somewhat confluent alveolar infiltrates and interstitial infiltrates. No effusions. Mild cardiomegaly. Patient required emergent intubation following admission to the [facility]. Patient unfortunately has remained on full ventilatory support and very resistant hypoxia currently on high level FIO2.Patient unfortunately has remained on full ventilatory support and very resistant hypoxia currently on high level FIO2. * CT head: No CT evidence of acute intracranial abnormality. Pansinus disease * CTA CHEST: IMPRESSION: No pulmonary embolus. Bilateral patchy and somewhat confluent alveolar infiltrates and interstitial infiltrates. Noeffusions. Mild cardiomegaly. Runnings likely reflect a viral pneumonia or inhalational process * CXR IMPRESSION: Heart size is normal.There are bilateral lower lobe infiltrates. These are slightly worse than the prior study.. There is no pleural effusion or pneumothorax. Endotracheal tube is in the mid trachea. NG tube is in the stomach. There is a right-sided PICC line. The tip is in the superior vena cava.. Acute Hypoxic respiratory failure now on mechanical ventilation >96 HRS: Cont vent support. SBT trials, and possible Trach and peg if no improvement. all other management per Pulmonary. Still with hypoxia. 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 Severe Protein Malnutrition: Senior Application Security Consultant to follow AIDS with history of noncompliance: ID following Consitpation: miralax AOCD: monitor cbc closely acute blood loss anemia: Transfused 2 units prbc and monitor Elevated d/DIMER- NO PE noted on CTA chest intermittent labs Restraint renewed From Intermediate, no NOK/family listed, Case management to find NOK; poor prognosis CCT 35 minutes The high probability of a clinically significant, sudden or life threatening deterioration of the [pulmonary, system(s) required my full and direct attention, intervention and personal management. The aggregate critical care time was [50] minutes. This time is in addition to time spent performing reported procedures but includes the following: [x] Data Review and interpretation [x] Patient assessment and monitoring of vital signs [x] Documentation [x] Medication orders and management . History Interval history: Patient seen and examined, remains on mechanical ventilation, No other new comp laints noted by nursing staff. Possible trach and peg, weaning trial still ongoing, awake Hospitalist Physical - Physical exam Narrative exam: Narrative exam: Gen: thin, critically ill, intubated and sedated and restraints in place HEENT: NCAT, EOMI, PERRL, OP ETT and NGT in place Neck: supple, no JVD CVS/Heart: Regular tachycardia, normal S1S2, pulses present bilaterally Chest/Lungs: tachypenic, diminished bs bilateral, Symmetrical chest expansion, good air entry bilaterally GI/Abdomen: soft, good bowel sounds, no guarding or rebound /Bladder: no suprapubic tenderness, Extermity/Skin: poor skin tone MSK: moves all ext Neuro: moves all ext. No sensory deficit perceived Psych:unable to assess - Constitutional Vitals: Temp Pulse Resp BP Pulse Ox 98.0 F 108 H 14 89/53 93 07/29/18 03:51 07/29/18 06:00 07/29/18 06:00 07/29/18 06:00 07/29/18 06:00 General appearance: Present: no acute distress, well-nourished Results - Labs CBC & Chem 7: 07/28/18 05:20 07/28/18 05:20 Labs: Laboratory Last Values WBC 8.8 K/mm3 (4.5-11.0) 07/28/18 05:20 RBC 3.21 M/mm3 (3.65-5.03) L 07/28/18 05:20 Hgb 10.0 gm/dl (11.8-15.2) L 07/28/18 05:20 Hct 29.9 % (35.5-45.6) L 07/28/18 05:20 MCV 93 fl (84-94) 07/28/18 05:20 MCH 31 pg (28-32) 07/28/18 05:20 MCHC 34 % (32-34) 07/28/18 05:20 RDW 15.4 % (13.2-15.2) H 07/28/18 05:20 Plt Count 451 K/mm3 (140-440) H 07/28/18 05:20 Lymph % (Auto) 14.5 % (13.4-35.0) 07/28/18 05:20 [place] % (Auto) 3.2 % (0.0-7.3) 07/28/18 05:20 Eos % (Auto) 0.3 % (0.0-4.3) 07/28/18 05:20 Baso % (Auto) 0.4 % (0.0-1.8) 07/28/18 05:20 Lymph # 1.3 K/mm3 (1.2-5.4) 07/28/18 05:20 [place] # 0.3 K/mm3 (0.0-0.8) 07/28/18 05:20 Eos # 0.0 K/mm3 (0.0-0.4) 07/28/18 05:20 Baso # 0.0 K/mm3 (0.0-0.1) 07/28/18 05:20 Add Manual Diff Complete 07/25/18 09:30 Total Counted 100 07/25/18 09:30 Seg Neutrophils % 81.6 % (40.0-70.0) H 07/28/18 05:20 Seg Neuts % (Manual) 63.0 % (40.0-70.0) 07/25/18 09:30 0 % 07/25/18 09:30 35.0 % (13.4-35.0) 07/25/18 09:30 Reactive Lymphs % (Man) 0 % 07/25/18 09:30 1.0 % (0.0-7.3) 07/25/18 09:30 0 % (0.0-4.3) 07/25/18 09:30 0 % (0.0-1.8) 07/25/18 09:30 0 % 07/25/18 09:30 1.0 % 07/25/18 09:30 0 % 07/25/18 09:30 0 % 07/25/18 09:30 Nucleated RBC % Not Reportable 07/25/18 09:30 Seg Neutrophils # 7.2 K/mm3 (1.8-7.7) 07/28/18 05:20 Seg Neutrophils # Man 4.9 K/mm3 (1.8-7.7) 07/25/18 09:30 Band Neutrophils # 0.0 K/mm3 07/25/18 09:30 Abs Lymphs (Manual) 220 cells/uL (850-3900) L 07/12/18 19:29 2.7 K/mm3 (1.2-5.4) 07/25/18 09:30 Abs React Lymphs (Man) 0.0 K/mm3 07/25/18 09:30 0.1 K/mm3 (0.0-0.8) 07/25/18 09:30 0.0 K/mm3 (0.0-0.4) 07/25/18 09:30 0.0 K/mm3 (0.0-0.1) 07/25/18 09:30 0.0 K/mm3 07/25/18 09:30 0.1 K/mm3 07/25/18 09:30 0.0 K/mm3 07/25/18 09:30 Blast Cells # 0.0 K/mm3 07/25/18 09:30 WBC Morphology Not Reportable 07/25/18 09:30 Hypersegmented Neuts Not Reportable 07/25/18 09:30 Hyposegmented Neuts Not Reportable 07/25/18 09:30 Hypogranular Neuts Not Reportable 07/25/18 09:30 Not Reportable 07/25/18 09:30 Not Reportable 07/25/18 09:30 Not Reportable 07/25/18 09:30 Not Reportable 07/25/18 09:30 Not Reportable 07/25/18 09:30 Not Reportable 07/25/18 09:30 Consistent w auto 07/25/18 09:30 Not Reportable 07/25/18 09:30 Plt Clumps, EDTA Not Reportable 07/25/18 09:30 Not Reportable 07/25/18 09:30 Not Reportable 07/25/18 09:30 Not Reportable 07/25/18 09:30 Plt Morphology Comment Not Reportable 07/25/18 09:30 RBC Morphology Not Reportable 07/25/18 09:30 Dimorphic RBCs Not Reportable 07/25/18 09:30 Few 07/25/18 09:30 Not Reportable 07/25/18 09:30 Not Reportable 07/25/18 09:30 1+ 07/25/18 09:30 Not Reportable 07/25/18 09:30 Few 07/25/18 09:30 Not Reportable 07/25/18 09:30 Not Reportable 07/25/18 09:30 Not Reportable 07/25/18 09:30 Rare 07/25/18 09:30 Not Reportable 07/25/18 09:30 Not Reportable 07/25/18 09:30 Not Reportable 07/25/18 09:30 Not Reportable 07/25/18 09:30 Not Reportable 07/25/18 09:30 Not Reportable 07/25/18 09:30 Not Reportable 07/25/18 09:30 Not Reportable 07/25/18 09:30 Not Reportable 07/25/18 09:30 Acanthocytes (Spur) Not Reportable 07/25/18 09:30 Rouleaux Not Reportable 07/25/18 09:30 Not Reportable 07/25/18 09:30 Not Reportable 07/25/18 09:30 Not Reportable 07/25/18 09:30 Not Reportable 07/25/18 09:30 Hem Pathologist Commnt No 07/25/18 09:30 1298.70 ng/mlDDU (0-234) H 07/11/18 15:04 POC ABG pH 7.435 (7.35-7.45) 07/29/18 04:28 POC ABG pCO2 55.1 (35-45) H 07/29/18 04:28 POC ABG pO2 76 (80-105) L 07/29/18 04:28 POC ABG HCO3 37.0 (22-26 mml/L) 07/29/18 04:28 POC ABG Total CO2 39 (23-27mmol/L) 07/29/18 04:28 POC ABG O2 Sat 95 07/29/18 04:28 POC ABG Base Excess 13 ((-2) - (+3)mmol/L) 07/29/18 04:28 50 % 07/29/18 04:28 Sodium 136 mmol/L (137-145) L 07/28/18 05:20 Potassium 4.5 mmol/L (3.6-5.0) 07/28/18 05:20 Chloride 89.9 mmol/L (98-107) L 07/28/18 05:20 Carbon Dioxide 38 mmol/L (22-30) H 07/28/18 05:20 13 mmol/L 07/28/18 05:20 BUN 15 mg/dL (9-20) 07/28/18 05:20 0.4 mg/dL (0.8-1.5) L 07/28/18 05:20 Estimated GFR > 60 ml/min 07/28/18 05:20 38 % 07/28/18 05:20 Glucose 81 mg/dL (75-100) 07/28/18 05:20 POC Glucose 95 (70-105) 07/24/18 13:06 Lactic Acid 1.80 mmol/L (0.7-2.0) 07/11/18 21:01 Calcium 8.1 mg/dL (8.4-10.2) L 07/28/18 05:20 0.20 mg/dL (0.1-1.2) 07/28/18 05:20 AST 104 units/L (5-40) H 07/28/18 05:20 ALT 113 units/L (7-56) H 07/28/18 05:20 89 units/L (35-129) 07/28/18 05:20 731 units/L (91-180) H 07/12/18 19:29 < 0.010 ng/mL (0.00-0.029) 07/11/18 15:04 2.70 mg/dL (0.00-1.30) H 07/15/18 14:09 NT-Pro-B Natriuret Pep 249.7 pg/mL (0-450) 07/11/18 15:04 6.2 g/dL (6.3-8.2) L 07/28/18 05:20 2.5 g/dL (3.9-5) L 07/28/18 05:20 0.7 % 07/28/18 05:20 Triglycerides 209 mg/dL (2-149) H 07/28/18 05:20 Yellow (Yellow) 07/15/18 14:14 Clear (Clear) 07/15/18 14:14 6.0 (5.0-7.0) 07/15/18 14:14 Ur Specific [place] 1.015 (1.003-1.030) 07/15/18 14:14 30 mg/dl mg/dL (Negative) 07/15/18 14:14 Neg mg/dL (Negative) 07/15/18 14:14 Neg mg/dL (Negative) 07/15/18 14:14 Neg (Negative) 07/15/18 14:14 Neg (Negative) 07/15/18 14:14 Neg (Negative) 07/15/18 14:14 < 2.0 mg/dL (<2.0) 07/15/18 14:14 Ur Leukocyte Esterase Neg (Negative) 07/15/18 14:14 2.0 /HPF (0.0-6.0) 07/15/18 14:14 6.0 /HPF (0.0-6.0) 07/15/18 14:14 21 mmol/L 07/19/18 14:27 Lymph Enumerat CD4/CD8 0.04 (0.86-5.00) L 07/12/18 19:29 % CD3 Cells 88 % (57-85) H 07/12/18 19:29 194 cells/uL (840-3060) L 07/12/18 19:29 % CD4 Cells 3 % (30-61) L 07/12/18 19:29 7 cells/uL (490-1740) L 07/12/18 19:29 % CD8 Cells 75 % (12-42) H 07/12/18 19:29 177 cells/uL (180-1170) L 07/12/18 19:29 % CD19 Cells 4 % (6-29) L 07/12/18 19:29 9 cells/uL (110-660) L 07/12/18 19:29 RPR Nonreactive (Nonreactive) 07/12/18 23:38 CMV DNA PCR log copier technician/mL See scanned result 07/15/18 14:09 Hepatitis A IgM Ab Non-reactive (NonReactive) 07/12/18 23:38 Hep Bs Antigen Non-reactive (Negative) 07/12/18 23:38 Hep B Core IgM Ab Non-reactive (NonReactive) 07/12/18 23:38 Non-reactive (NonReactive) 07/12/18 23:38 HIV-1 RNA PCR copies/ml 127090 Copies/mL H 07/12/18 19:29 5.72 Log cps/mL H 07/12/18 19:29 Flexitest 1 H 07/16/18 07:21 Blood Type O POSITIVE 07/24/18 07:50 Antibody Screen Positive 07/24/18 07:50 Prewarmed Antibody Srcn Positive 07/18/18 03:10 Antibody Identification Anti-Adrianna 07/24/18 07:50 Direct Antiglob Test Negative 07/24/18 07:50 NIKUNJ, Poly Interpret Negative 07/24/18 07:50 Crossmatch See Detail 07/24/18 07:50 Active Medications - Current Medications Current Medications: Generic Name Dose Route Start Last Admin Trade Name Freq PRN Reason Stop Dose Admin Acetaminophen 650 mg 07/12/18 18:07 07/21/18 19:30 Tylenol FEEDTUBE 650 mg Q6H PRN Administration Non Cardiac Pain or Temp>100.5 Albuterol 2.5 mg 07/11/18 17:16 07/26/18 12:07 Proventil IH 2.5 mg Q3HRT PRN Administration Shortness Of Breath Lipase/Protease/Amylase 1 each 07/13/18 12:30 Pancreaznery Stout 10,500 Unit FEEDTUBE PRN PRN For Clogged Feeding Tube Azithromycin 1,200 mg 07/26/18 10:00 07/26/18 09:55 Zithromax PO 1,200 mg Th HE Administration Docusate Sodium 100 mg 07/15/18 12:00 07/28/18 23:33 Colace PO Not Given BID HE Doxazosin Mesylate 2 mg 07/18/18 12:00 07/28/18 09:05 Cardura PO 2 mg QDAY HE Administration Famotidine 20 mg 07/16/18 22:00 07/28/18 21:49 Pepcid PO 20 mg BID HE Administration Fentanyl 50 mcg 07/12/18 00:26 07/20/18 09:02 Sublimaze IV 50 mcg Q10MIN PRN Administration ANALGESIA Heparin Sodium (Porcine) 5,000 unit 07/20/18 10:00 07/28/18 21:50 Heparin SUB-Q 5,000 unit BID HE Administration Hydrophilic Ointment 1 applic 07/12/18 13:30 Vaseline Lip Therapy TP Q2HR PRN Dry Lips Fentanyl Citrate 2,000 mcg in 100 mls @ 3.065 mls/hr 07/12/18 01:00 07/29/18 02:46 Fentanyl Drip Premix IV 4 mcg/kg/hr TITR HE 12.26 mls/hr Administration Protocol 1 MCG/KG/HR Propofol 1,000 mg in 100 mls @ 1.839 mls/hr 07/12/18 01:00 07/28/18 22:03 Diprivan 10 Mg/Ml IV 15 mcg/kg/min TITR HE 5.517 mls/hr Titration Protocol 5 MCG/KG/MIN Midazolam HCl 100 mg/ Sodium 100 mls @ 2 mls/hr 07/18/18 13:30 07/28/18 06:16 Chloride IV 5 mg/hr TITR HE 5 mls/hr Administration Protocol 2 MG/HR Trimethoprim/Sulfamethoxazole 268.75 mls @ 350 mls/hr 07/24/18 12:00 07/29/18 06:41 300 mg/ Dextrose IV 350 mls/hr Q6HR HE Administration Protocol Methylprednisolone Sodium Succinate 40 mg 07/16/18 14:00 07/29/18 06:26 Solu-Medrol IV 40 mg Q8HR HE Administration Midazolam HCl 2 mg 07/16/18 13:06 07/26/18 17:42 Versed IV 2 mg Q2H PRN Administration AGITATION Midazolam HCl 2 mg 07/18/18 12:44 Versed IV Q10MIN PRN Sedation Multi-Ingred Cream/Lotion/Oil/Oint 1 applic 07/12/18 13:30 Artificial Tears Ophth Oint OU Q4HR PRN Dry Eye(s) Quetiapine Fumarate 300 mg 07/27/18 22:00 07/28/18 21:49 Seroquel PO 300 mg BID HE Administration Senna 17.2 mg 07/26/18 22:00 07/28/18 23:32 Senokot PO Not Given QHS HE Simple Syrup 15 ml 07/13/18 12:30 Simple Syrup FEEDTUBE PRN PRN Hypoglycemia Simple Syrup 30 ml 07/13/18 12:30 Simple Syrup FEEDTUBE PRN PRN Hypoglycemia Sodium Bicarbonate 325 mg 07/13/18 12:30 Sodium Bicarbonate FEEDTUBE PRN PRN For Clogged Feeding Tube Sodium Chloride 10 ml 07/11/18 22:00 07/28/18 21:50 Sodium Chloride Flush Syringe 10 Ml IV 10 ml BID HE Administration Sodium Chloride 10 ml 07/11/18 17:16 07/18/18 09:00 Sodium Chloride Flush Syringe 10 Ml IV 10 ml PRN PRN Administration LINE FLUSH Nutrition/Malnutrition Assess - Dietary Evaluation Nutrition/Malnutrition Findings: Nutrition Notes Start: 07/12/18 09:38 Freq: Status: Active Protocol: Document 07/27/18 14:44 RM (Rec: 07/27/18 14:48 RM [id number]) Nutrition Notes Initial or Follow up Reassessment Current Diagnosis Sepsis,Respiratory Failure Other Pertinent Diagnosis Bilat pneu, HIV/AIDS, Diarrhea Current Diet Nepro at 45 ml/hr Labs/Tests K 5.1 Pertinent Medications REviewed Height 5 ft 11 in Weight 65 kg [place] Body Weight (kg) 78.18 BMI 20.0 Subjective/Other Information Observed Nepro infusing at 45 ml/hr. Per nurse pt is tolerating TF. Percent of energy/protein needs met: 100%/100% Burn Absent Trauma Absent #2 Nutrition Diagnosis Inadequate oral intake Diagnosis Progress(for reassessment Continues documentation) #1 Nutrition Diagnosis Malnutrition Diagnosis Progress(for reassessment Continues documentation) Is patient on ventilator? Yes Is Patient Ambulatory and/or Out of Bed No REE-([facility]-confined to bed) 1925.232 Calculation Used for Recommendations [facility] Additional Notes Pro needs 1.2-2g/k-130g/ day Fluid needs 1ml/kcal Nutrition Intervention Change Diet Order: TF Nutrition Support: Continue Nepro at 45ml/hr. Flush with 150ml q4h Kcal 1,944 Protein (gm) 87 Fluid (mL) 785 Goal #1 TF tolerance Goal #2 TF to continue to meet 90-100% energy and pro needs Goal #3 Wt maintenance and/or gain Anticipated Discharge Needs: Unable to determine at this time Follow-Up By: 08/01/18 Additional Comments Follow for TF tolerance, K lab
[2018-07-29] MEDS: PEPCID PO SCH ×2 (10:44→22:33)
[2018-07-29] MEDS: CARDURA PO SCH (10:44)
[2018-07-29] MEDS: VALGANCICLOVIR FEEDTUBE SCH ×2 (10:45→22:33)
[2018-07-29] MEDS: SODIUM CHLORIDE FLUSH SYRINGE 10 ML IV SCH ×2 (10:45→22:34)
[2018-07-29] MEDS: HEPARIN SUB-Q SCH ×2 (10:46→22:34)
[2018-07-29] MEDS: COLACE PO SCH ×2 (12:34→22:33)
[2018-07-29] MEDS: MIDAZOLAM 100 MG in NACL 0.9% 80 ML IV SCH (13:02)
[2018-07-29] MEDS: DIPRIVAN 10 MG/ML 1,000 MG/100 ML BOTTLE IV SCH (13:28)
--- NOTE | 2018-07-29 17:33 | Progress Note ---
Assessment and Plan Acute hypoxemic respiratory failure, on mechanical ventilatory support. Bilateral pneumonia, high suspicion for Pneumocystis jiroveci pneumonia. Human immunodeficiency virus/acquired immunodeficiency syndrome,noncompliant wit h therapy. Hyponatremia. Severe protein calorie malnutrition. Elevated D-dimer. Tobacco use disorder. - verbally redirected him, discussed his disease process as well as progress and cautioned against agitation / anxiety (Also explained rationale and benefits of tracheostomy to him) - discussed with RT and increased Peep to 8 cm H2O (we will maintain there during weaning period to prevent quick de-recruitment as has decompensated rapidly during this hospitalization with rapid Peep weaning) - tracheostomy placement this week tentatively - consent placed in chart (2 physician consent as no next of kin available) - continue miralax as part of bowel regimen - continue to wean supplemental oxygen to keep O2 sats 88-90% acutely - continue Seroquel bid dosing to spare IV sedatives (dose increased to 250mg bid) - PJP stain positive - continue current LTVV /4-6mls/kg IBW - continue ARDS ventilatory strategies with low TV - will begin targeting conventional ventilatory modes as ARDS resolves - continue daily SAT's & SBT assessment as tolerated - continue bronchodilators with pulmonary hygiene per RT - prn ABG's at this point - continue GI & VTE prophylaxis - Lung protective strategies - prn CXR's at this point - VAP bundle addressed - Tracheal aspirate growing MRSA - continue Anti-infectives and ART per ID rec's - Chambers catheter placed for acute urinary retention. - Continue full MVS - Monitor renal indices closely - Avoid nephrotoxic agents, adjust all medications for CrCL - Strict intake and output monitoring - Tube feedings as tolerated - Accuchecks with glycemic control. Target glucose of 140-180 mg/dL - Maintenance of sleep -wake cycle - Mobility as tolerated by hemodynamics - Influenza and pneumonia vaccination per protocol ..care plan discussed at length with RN/RT at the bedside ..discussed in ICU-IDT rounds PROGNOSIS: GUARDED CONDITION: CRITICAL CODE STATUS: FULL CODE The high probability of a clinically significant, sudden or life-threatening deterioration of the [respiratory, neurology, renal] system(s) required my full and direct attention, intervention and personal management. The aggregate critical care time was [38] minutes without overlap. Time includes spent on; [x] Data Review and interpretation [x] Patient assessment and monitoring of vital signs [x] Documentation [x] Medication orders and management Subjective Date of service: 07/29/18 Principal diagnosis: Acute hypoxemic resp failure; Bilateral pneumonia (PJP); HIV/AIDS Interval history: Patient is seen today for: Acute hypoxemic respiratory failure, on mechanical ventilatory support; Bilateral pneumonia, high suspicion for Pneumocystis jiroveci pneumonia; Human immunodeficiency virus/acquired immunodeficiency syndrome,noncompliant with therapy; Hyponatremia; Severe protein calorie malnutrition. Seen and examined at bedside; 24-hour events reviewed; nursing and respiratory care staff consulted; no adverse overnight events reported to me; remains on MVS; FiO2 at 50% but Peep was down to 6; he is alert and appropriate despite being on Versed, fentanyl and low dose propofol; No N/V/F/C; denies acute chest pains Objective Vital Signs - 12hr 07/29/18 07/29/18 07/29/18 06:00 07:00 08:00 Temperature 97.8 F Pulse Rate 108 H 105 H 112 H Pulse Rate [ 106 H From Monitor] Respiratory 14 11 L 25 H Rate Blood Pressure 89/53 101/59 88/49 O2 Sat by Pulse 93 95 96 Oximetry 07/29/18 07/29/18 07/29/18 09:01 10:00 10:44 Temperature Pulse Rate 116 H 97 H 100 H Pulse Rate [ From Monitor] Respiratory 32 H 19 Rate Blood Pressure 130/87 121/65 121/70 O2 Sat by Pulse 95 88 Oximetry 07/29/18 07/29/18 07/29/18 11:00 11:53 12:00 Temperature 99 F Pulse Rate 130 H 111 H Pulse Rate [ From Monitor] Respiratory 30 H Rate Blood Pressure 127/77 100/55 O2 Sat by Pulse 94 96 Oximetry 07/29/18 07/29/18 07/29/18 12:01 12:10 13:00 Temperature Pulse Rate 125 H 102 H Pulse Rate [ 120 H From Monitor] Respiratory 29 H 29 H 25 H Rate Blood Pressure 122/70 95/54 O2 Sat by Pulse 96 96 92 Oximetry 07/29/18 07/29/18 07/29/18 13:04 14:00 14:28 Temperature 99.1 F Pulse Rate 108 H Pulse Rate [ From Monitor] Respiratory 25 H 28 H Rate Blood Pressure 88/51 O2 Sat by Pulse 90 Oximetry 0507/29/18 07/29/18 15:00 15:47 16:00 Temperature 98.8 F Pulse Rate 123 H 100 H 105 H Pulse Rate [ 110 H From Monitor] Respiratory 18 22 Rate Blood Pressure 115/65 117/71 111/59 O2 Sat by Pulse 92 91 92 Oximetry Constitutional: no acute distress, other (young AAM; normocephalic and atraumatic) Eyes: non-icteric ENT: oropharynx moist, other (ETT 24 cm SHONA) Neck: supple, no lymphadenopathy, no JVD, other (no thyromegaly) Effort: mildly labored Ascultation: Bilateral: diminished breath sounds, rales Percussion: Bilateral: not dull Cardiovascular: regular rate and rhythm, other (S1,S2, no murmurs, gallops or rubs) Gastrointestinal: normoactive bowel sounds, soft, non-tender, non-distended Integumentary: normal Extremities: no cyanosis, no edema, pulses normal, no ischemia or petechiae Neurologic: normal mental status, non-focal exam, pupils equal and round, CN II- XII normal, motor strength normal and Psychiatric: other (sedated) CBC and BMP: 07/28/18 05:20 07/28/18 05:20 ABG, PT/INR, D-dimer: ABG POC ABG pH 7.435 (7.35-7.45) 07/29/18 04:28 POC ABG pCO2 55.1 (35-45) H 07/29/18 04:28 POC ABG pO2 76 (80-105) L 07/29/18 04:28 POC ABG HCO3 37.0 (22-26 mml/L) 07/29/18 04:28 POC ABG Total CO2 39 (23-27mmol/L) 07/29/18 04:28 POC ABG O2 Sat 95 07/29/18 04:28 PT/INR, D-dimer 1298.70 ng/mlDDU (0-234) H 07/11/18 15:04 Abnormal lab findings: Abnormal Labs 07/11/18 07/11/18 07/11/18 14:06 14:06 15:04 RBC 3.30 L Hgb 9.6 L Hct 28.7 L MCHC RDW Plt Count Lymph % (Auto) Lymph # Seg Neutrophils % Abs Lymphs (Manual) D-Dimer 1298.70 H POC ABG pH POC ABG pCO2 POC ABG pO2 Sodium 132 L Potassium Chloride Carbon Dioxide Creatinine 0.6 L Glucose 103 H POC Glucose Calcium 7.3 L AST ALT Lactate Dehydrogenase C-Reactive Protein Total Protein Albumin 2.1 L Triglycerides Lymph Enumerat CD4/CD8 % CD3 Cells Absolute CD3 Count % CD4 Cells Absolute CD4 Count % CD8 Cells Absolute CD8 Count % CD19 Cells Absolute CD19 Count HIV-1 RNA PCR copies/ml HIV-1 RNA (PCR) log Miscellaneous Test Crossmatch 07/11/18 07/11/18 07/12/18 17:36 22:15 00:25 RBC Hgb Hct MCHC RDW Plt Count Lymph % (Auto) Lymph # Seg Neutrophils % Abs Lymphs (Manual) D-Dimer POC ABG pH 7.289 L POC ABG pCO2 POC ABG pO2 66 L Sodium Potassium Chloride Carbon Dioxide Creatinine Glucose POC Glucose Calcium AST ALT Lactate Dehydrogenase 591 H C-Reactive Protein Total Protein Albumin Triglycerides Lymph Enumerat CD4/CD8 % CD3 Cells Absolute CD3 Count % CD4 Cells Absolute CD4 Count % CD8 Cells Absolute CD8 Count % CD19 Cells Absolute CD19 Count HIV-1 RNA PCR copies/ml HIV-1 RNA (PCR) log Miscellaneous Test see below H Crossmatch 07/12/18 07/12/18 07/12/18 00:41 05:37 19:29 RBC Hgb Hct MCHC RDW Plt Count Lymph % (Auto) Lymph # Seg Neutrophils % Abs Lymphs (Manual) D-Dimer POC ABG pH 7.302 L 7.275 L POC ABG pCO2 47.1 H POC ABG pO2 Sodium Potassium Chloride Carbon Dioxide Creatinine Glucose POC Glucose Calcium AST ALT Lactate Dehydrogenase 731 H C-Reactive Protein Total Protein Albumin Triglycerides Lymph Enumerat CD4/CD8 % CD3 Cells Absolute CD3 Count % CD4 Cells Absolute CD4 Count % CD8 Cells Absolute CD8 Count % CD19 Cells Absolute CD19 Count HIV-1 RNA PCR copies/ml HIV-1 RNA (PCR) log Miscellaneous Test Crossmatch 07/12/18 07/12/18 07/13/18 19:29 19:29 04:03 RBC Hgb Hct MCHC RDW Plt Count Lymph % (Auto) Lymph # Seg Neutrophils % Abs Lymphs (Manual) 220 L D-Dimer POC ABG pH 7.254 L POC ABG pCO2 49.2 H POC ABG pO2 Sodium Potassium Chloride Carbon Dioxide Creatinine Glucose POC Glucose Calcium AST ALT Lactate Dehydrogenase C-Reactive Protein Total Protein Albumin Triglycerides Lymph Enumerat CD4/CD8 0.04 L % CD3 Cells 88 H Absolute CD3 Count 194 L % CD4 Cells 3 L Absolute CD4 Count 7 L % CD8 Cells 75 H Absolute CD8 Count 177 L % CD19 Cells 4 L Absolute CD19 Count 9 L HIV-1 RNA PCR copies/ml 260459 H HIV-1 RNA (PCR) log 5.72 H Miscellaneous Test Crossmatch 07/13/18 07/13/18 07/13/18 05:46 12:23 18:31 RBC Hgb Hct MCHC RDW Plt Count Lymph % (Auto) Lymph # Seg Neutrophils % Abs Lymphs (Manual) D-Dimer POC ABG pH POC ABG pCO2 POC ABG pO2 Sodium Potassium Chloride Carbon Dioxide Creatinine Glucose POC Glucose 68 L 106 H 112 H Calcium AST ALT Lactate Dehydrogenase C-Reactive Protein Total Protein Albumin Triglycerides Lymph Enumerat CD4/CD8 % CD3 Cells Absolute CD3 Count % CD4 Cells Absolute CD4 Count % CD8 Cells Absolute CD8 Count % CD19 Cells Absolute CD19 Count HIV-1 RNA PCR copies/ml HIV-1 RNA (PCR) log Miscellaneous Test Crossmatch 07/14/18 07/14/18 07/14/18 04:19 05:36 05:36 RBC 2.99 L Hgb 8.8 L Hct 25.7 L MCHC RDW 15.5 H Plt Count Lymph % (Auto) Lymph # Seg Neutrophils % Abs Lymphs (Manual) D-Dimer POC ABG pH 7.337 L POC ABG pCO2 POC ABG pO2 Sodium 135 L Potassium Chloride Carbon Dioxide 21 L Creatinine 0.7 L Glucose 123 H POC Glucose Calcium 8.2 L AST ALT Lactate Dehydrogenase C-Reactive Protein Total Protein Albumin Triglycerides Lymph Enumerat CD4/CD8 % CD3 Cells Absolute CD3 Count % CD4 Cells Absolute CD4 Count % CD8 Cells Absolute CD8 Count % CD19 Cells Absolute CD19 Count HIV-1 RNA PCR copies/ml HIV-1 RNA (PCR) log Miscellaneous Test Crossmatch 07/14/18 07/14/18 07/14/18 12:14 14:33 17:18 RBC Hgb Hct MCHC RDW Plt Count Lymph % (Auto) Lymph # Seg Neutrophils % Abs Lymphs (Manual) D-Dimer POC ABG pH 7.325 L POC ABG pCO2 POC ABG pO2 75 L Sodium Potassium Chloride Carbon Dioxide Creatinine Glucose POC Glucose 174 H 114 H Calcium AST ALT Lactate Dehydrogenase C-Reactive Protein Total Protein Albumin Triglycerides Lymph Enumerat CD4/CD8 % CD3 Cells Absolute CD3 Count % CD4 Cells Absolute CD4 Count % CD8 Cells Absolute CD8 Count % CD19 Cells Absolute CD19 Count HIV-1 RNA PCR copies/ml HIV-1 RNA (PCR) log Miscellaneous Test Crossmatch 07/15/18 07/15/18 07/15/18 00:17 12:29 12:29 RBC 2.64 L Hgb 7.5 L Hct 22.9 L MCHC RDW 15.4 H Plt Count Lymph % (Auto) 7.0 L Lymph # 0.4 L Seg Neutrophils % 89.6 H Abs Lymphs (Manual) D-Dimer POC ABG pH POC ABG pCO2 POC ABG pO2 Sodium Potassium Chloride Carbon Dioxide Creatinine 0.6 L Glucose 124 H POC Glucose 113 H Calcium 7.3 L AST ALT Lactate Dehydrogenase C-Reactive Protein Total Protein Albumin Triglycerides Lymph Enumerat CD4/CD8 % CD3 Cells Absolute CD3 Count % CD4 Cells Absolute CD4 Count % CD8 Cells Absolute CD8 Count % CD19 Cells Absolute CD19 Count HIV-1 RNA PCR copies/ml HIV-1 RNA (PCR) log Miscellaneous Test Crossmatch 07/15/18 07/16/18 07/16/18 14:09 04:46 07:21 RBC Hgb Hct MCHC RDW Plt Count Lymph % (Auto) Lymph # Seg Neutrophils % Abs Lymphs (Manual) D-Dimer POC ABG pH 7.282 L POC ABG pCO2 52.6 H POC ABG pO2 63 L Sodium Potassium Chloride Carbon Dioxide Creatinine Glucose POC Glucose Calcium AST ALT Lactate Dehydrogenase C-Reactive Protein 2.70 H Total Protein Albumin Triglycerides Lymph Enumerat CD4/CD8 % CD3 Cells Absolute CD3 Count % CD4 Cells Absolute CD4 Count % CD8 Cells Absolute CD8 Count % CD19 Cells Absolute CD19 Count HIV-1 RNA PCR copies/ml HIV-1 RNA (PCR) log Miscellaneous Test Flexitest 1 H Crossmatch 07/16/18 07/16/18 07/16/18 07:21 07:21 16:16 RBC 2.48 L Hgb 7.2 L Hct 21.5 L MCHC RDW 15.7 H Plt Count Lymph % (Auto) Lymph # Seg Neutrophils % Abs Lymphs (Manual) D-Dimer POC ABG pH 7.251 L POC ABG pCO2 62.2 H POC ABG pO2 Sodium 136 L Potassium Chloride Carbon Dioxide Creatinine 0.6 L Glucose 118 H POC Glucose Calcium 7.5 L AST ALT Lactate Dehydrogenase C-Reactive Protein Total Protein Albumin Triglycerides Lymph Enumerat CD4/CD8 % CD3 Cells Absolute CD3 Count % CD4 Cells Absolute CD4 Count % CD8 Cells Absolute CD8 Count % CD19 Cells Absolute CD19 Count HIV-1 RNA PCR copies/ml HIV-1 RNA (PCR) log Miscellaneous Test Crossmatch 07/17/18 07/18/18 07/18/18 04:01 01:10 03:10 RBC 2.20 L Hgb 6.5 L Hct 19.2 L* MCHC RDW 16.0 H Plt Count Lymph % (Auto) 7.2 L Lymph # 0.5 L Seg Neutrophils % 89.9 H Abs Lymphs (Manual) D-Dimer POC ABG pH 7.245 L POC ABG pCO2 63.8 H POC ABG pO2 75 L Sodium Potassium Chloride Carbon Dioxide Creatinine Glucose POC Glucose Calcium AST ALT Lactate Dehydrogenase C-Reactive Protein Total Protein Albumin Triglycerides Lymph Enumerat CD4/CD8 % CD3 Cells Absolute CD3 Count % CD4 Cells Absolute CD4 Count % CD8 Cells Absolute CD8 Count % CD19 Cells Absolute CD19 Count HIV-1 RNA PCR copies/ml HIV-1 RNA (PCR) log Miscellaneous Test Crossmatch See Detail 07/18/18 07/18/18 07/18/18 04:54 05:02 12:59 RBC Hgb Hct MCHC RDW Plt Count Lymph % (Auto) Lymph # Seg Neutrophils % Abs Lymphs (Manual) D-Dimer POC ABG pH 7.615 H POC ABG pCO2 32.6 L 48.8 H POC ABG pO2 79 L 118 H Sodium Potassium Chloride Carbon Dioxide Creatinine Glucose POC Glucose 164 H Calcium AST ALT Lactate Dehydrogenase C-Reactive Protein Total Protein Albumin Triglycerides Lymph Enumerat CD4/CD8 % CD3 Cells Absolute CD3 Count % CD4 Cells Absolute CD4 Count % CD8 Cells Absolute CD8 Count % CD19 Cells Absolute CD19 Count HIV-1 RNA PCR copies/ml HIV-1 RNA (PCR) log Miscellaneous Test Crossmatch 07/18/18 07/18/18 07/19/18 18:25 20:39 03:53 RBC Hgb Hct MCHC RDW Plt Count Lymph % (Auto) Lymph # Seg Neutrophils % Abs Lymphs (Manual) D-Dimer POC ABG pH 7.339 L POC ABG pCO2 59.9 H 65.0 H POC ABG pO2 69 L Sodium Potassium Chloride Carbon Dioxide Creatinine Glucose POC Glucose 155 H Calcium AST ALT Lactate Dehydrogenase C-Reactive Protein Total Protein Albumin Triglycerides Lymph Enumerat CD4/CD8 % CD3 Cells Absolute CD3 Count % CD4 Cells Absolute CD4 Count % CD8 Cells Absolute CD8 Count % CD19 Cells Absolute CD19 Count HIV-1 RNA PCR copies/ml HIV-1 RNA (PCR) log Miscellaneous Test Crossmatch 07/19/18 07/19/18 07/19/18 08:10 08:10 10:52 RBC 2.51 L Hgb 7.4 L Hct 22.0 L MCHC RDW 15.5 H Plt Count Lymph % (Auto) Lymph # Seg Neutrophils % Abs Lymphs (Manual) D-Dimer POC ABG pH POC ABG pCO2 POC ABG pO2 Sodium 130 L Potassium Chloride 89.0 L Carbon Dioxide 33 H Creatinine 0.4 L Glucose 150 H POC Glucose 173 H Calcium 7.5 L AST ALT Lactate Dehydrogenase C-Reactive Protein Total Protein Albumin Triglycerides Lymph Enumerat CD4/CD8 % CD3 Cells Absolute CD3 Count % CD4 Cells Absolute CD4 Count % CD8 Cells Absolute CD8 Count % CD19 Cells Absolute CD19 Count HIV-1 RNA PCR copies/ml HIV-1 RNA (PCR) log Miscellaneous Test Crossmatch 07/19/18 07/19/18 07/20/18 17:06 23:47 04:37 RBC Hgb Hct MCHC RDW Plt Count Lymph % (Auto) Lymph # Seg Neutrophils % Abs Lymphs (Manual) D-Dimer POC ABG pH POC ABG pCO2 58.5 H POC ABG pO2 67 L Sodium Potassium Chloride Carbon Dioxide Creatinine Glucose POC Glucose 117 H 114 H Calcium AST ALT Lactate Dehydrogenase C-Reactive Protein Total Protein Albumin Triglycerides Lymph Enumerat CD4/CD8 % CD3 Cells Absolute CD3 Count % CD4 Cells Absolute CD4 Count % CD8 Cells Absolute CD8 Count % CD19 Cells Absolute CD19 Count HIV-1 RNA PCR copies/ml HIV-1 RNA (PCR) log Miscellaneous Test Crossmatch 07/20/18 07/20/18 07/21/18 06:20 06:20 04:18 RBC 2.69 L Hgb 7.8 L Hct 23.6 L MCHC RDW 15.5 H Plt Count Lymph % (Auto) Lymph # Seg Neutrophils % Abs Lymphs (Manual) D-Dimer POC ABG pH 7.456 H POC ABG pCO2 60.4 H POC ABG pO2 64 L Sodium 134 L Potassium Chloride 89.2 L Carbon Dioxide 38 H Creatinine 0.7 L D Glucose 120 H POC Glucose Calcium 7.6 L AST ALT Lactate Dehydrogenase C-Reactive Protein Total Protein Albumin Triglycerides Lymph Enumerat CD4/CD8 % CD3 Cells Absolute CD3 Count % CD4 Cells Absolute CD4 Count % CD8 Cells Absolute CD8 Count % CD19 Cells Absolute CD19 Count HIV-1 RNA PCR copies/ml HIV-1 RNA (PCR) log Miscellaneous Test Crossmatch 07/21/18 07/21/18 07/22/18 04:35 04:35 04:16 RBC 2.62 L 2.37 L Hgb 7.7 L 7.0 L Hct 23.1 L 21.1 L MCHC RDW 15.4 H Plt Count Lymph % (Auto) Lymph # Seg Neutrophils % Abs Lymphs (Manual) D-Dimer POC ABG pH POC ABG pCO2 POC ABG pO2 Sodium 129 L Potassium 5.3 H Chloride 85.3 L Carbon Dioxide 38 H Creatinine 0.4 L Glucose 108 H POC Glucose Calcium 8.0 L AST ALT Lactate Dehydrogenase C-Reactive Protein Total Protein Albumin Triglycerides Lymph Enumerat CD4/CD8 % CD3 Cells Absolute CD3 Count % CD4 Cells Absolute CD4 Count % CD8 Cells Absolute CD8 Count % CD19 Cells Absolute CD19 Count HIV-1 RNA PCR copies/ml HIV-1 RNA (PCR) log Miscellaneous Test Crossmatch 07/22/18 07/23/18 07/23/18 04:16 03:25 12:45 RBC Hgb Hct MCHC RDW Plt Count Lymph % (Auto) Lymph # Seg Neutrophils % Abs Lymphs (Manual) D-Dimer POC ABG pH POC ABG pCO2 69.4 H POC ABG pO2 Sodium 132 L 125 L D Potassium 5.4 H 5.3 H Chloride 87.4 L 80.3 L Carbon Dioxide 38 H 38 H Creatinine 0.4 L 0.3 L Glucose 117 H 124 H POC Glucose Calcium 7.5 L 7.4 L AST ALT Lactate Dehydrogenase C-Reactive Protein Total Protein Albumin Triglycerides Lymph Enumerat CD4/CD8 % CD3 Cells Absolute CD3 Count % CD4 Cells Absolute CD4 Count % CD8 Cells Absolute CD8 Count % CD19 Cells Absolute CD19 Count HIV-1 RNA PCR copies/ml HIV-1 RNA (PCR) log Miscellaneous Test Crossmatch 07/23/18 07/24/1807/24/19 23:52 04:30 04:30 RBC 2.12 L Hgb 6.3 L Hct 18.9 L* MCHC RDW Plt Count Lymph % (Auto) Lymph # Seg Neutrophils % Abs Lymphs (Manual) D-Dimer POC ABG pH POC ABG pCO2 POC ABG pO2 Sodium 127 L Potassium 5.2 H Chloride 83.9 L Carbon Dioxide 39 H Creatinine 0.3 L Glucose POC Glucose 118 H Calcium 7.5 L AST ALT Lactate Dehydrogenase C-Reactive Protein Total Protein Albumin Triglycerides Lymph Enumerat CD4/CD8 % CD3 Cells Absolute CD3 Count % CD4 Cells Absolute CD4 Count % CD8 Cells Absolute CD8 Count % CD19 Cells Absolute CD19 Count HIV-1 RNA PCR copies/ml HIV-1 RNA (PCR) log Miscellaneous Test Crossmatch 07/24/18 07/24/18 07/24/18 05:11 05:30 07:50 RBC Hgb Hct MCHC RDW Plt Count Lymph % (Auto) Lymph # Seg Neutrophils % Abs Lymphs (Manual) D-Dimer POC ABG pH 7.462 H POC ABG pCO2 58.7 H POC ABG pO2 79 L Sodium Potassium Chloride Carbon Dioxide Creatinine Glucose POC Glucose 145 H Calcium AST ALT Lactate Dehydrogenase C-Reactive Protein Total Protein Albumin Triglycerides Lymph Enumerat CD4/CD8 % CD3 Cells Absolute CD3 Count % CD4 Cells Absolute CD4 Count % CD8 Cells Absolute CD8 Count % CD19 Cells Absolute CD19 Count HIV-1 RNA PCR copies/ml HIV-1 RNA (PCR) log Miscellaneous Test Crossmatch See Detail 07/25/18 07/25/18 07/26/18 09:30 09:30 00:18 RBC 2.99 L Hgb 9.1 L Hct 27.0 L D MCHC RDW Plt Count Lymph % (Auto) Lymph # Seg Neutrophils % Abs Lymphs (Manual) D-Dimer POC ABG pH POC ABG pCO2 POC ABG pO2 Sodium 131 L 135 L Potassium 5.1 H 5.5 H Chloride 84.4 L 88.4 L Carbon Dioxide 39 H 38 H Creatinine 0.3 L 0.3 L Glucose 133 H POC Glucose Calcium 8.0 L AST ALT Lactate Dehydrogenase C-Reactive Protein Total Protein Albumin Triglycerides Lymph Enumerat CD4/CD8 % CD3 Cells Absolute CD3 Count % CD4 Cells Absolute CD4 Count % CD8 Cells Absolute CD8 Count % CD19 Cells Absolute CD19 Count HIV-1 RNA PCR copies/ml HIV-1 RNA (PCR) log Miscellaneous Test Crossmatch 07/26/18 07/26/18 07/26/18 04:07 05:50 05:50 RBC 3.01 L Hgb 9.4 L Hct 27.2 L MCHC 35 H RDW Plt Count Lymph % (Auto) 10.4 L Lymph # 0.9 L Seg Neutrophils % 84.2 H Abs Lymphs (Manual) D-Dimer POC ABG pH 7.456 H POC ABG pCO2 61.4 H POC ABG pO2 68 L Sodium 131 L Potassium 5.1 H Chloride 84.5 L Carbon Dioxide 39 H Creatinine 0.3 L Glucose POC Glucose Calcium AST 78 H ALT 71 H Lactate Dehydrogenase C-Reactive Protein Total Protein 6.0 L Albumin 2.5 L Triglycerides Lymph Enumerat CD4/CD8 % CD3 Cells Absolute CD3 Count % CD4 Cells Absolute CD4 Count % CD8 Cells Absolute CD8 Count % CD19 Cells Absolute CD19 Count HIV-1 RNA PCR copies/ml HIV-1 RNA (PCR) log Miscellaneous Test Crossmatch 07/26/18 07/27/18 07/28/18 14:56 14:26 05:20 RBC Hgb Hct MCHC RDW Plt Count Lymph % (Auto) Lymph # Seg Neutrophils % Abs Lymphs (Manual) D-Dimer POC ABG pH 7.472 H POC ABG pCO2 66.0 H 57.4 H POC ABG pO2 56 L 59 L Sodium Potassium Chloride Carbon Dioxide Creatinine Glucose POC Glucose Calcium AST ALT Lactate Dehydrogenase C-Reactive Protein Total Protein Albumin Triglycerides 209 H Lymph Enumerat CD4/CD8 % CD3 Cells Absolute CD3 Count % CD4 Cells Absolute CD4 Count % CD8 Cells Absolute CD8 Count % CD19 Cells Absolute CD19 Count HIV-1 RNA PCR copies/ml HIV-1 RNA (PCR) log Miscellaneous Test Crossmatch 07/28/18 07/28/18 07/28/18 05:20 05:20 06:08 RBC 3.21 L Hgb 10.0 L Hct 29.9 L MCHC RDW 15.4 H Plt Count 451 H Lymph % (Auto) Lymph # Seg Neutrophils % 81.6 H Abs Lymphs (Manual) D-Dimer POC ABG pH 7.328 L POC ABG pCO2 POC ABG pO2 70 L Sodium 136 L Potassium Chloride 89.9 L Carbon Dioxide 38 H Creatinine 0.4 L Glucose POC Glucose Calcium 8.1 L AST 104 H ALT 113 H Lactate Dehydrogenase C-Reactive Protein Total Protein 6.2 L Albumin 2.5 L Triglycerides Lymph Enumerat CD4/CD8 % CD3 Cells Absolute CD3 Count % CD4 Cells Absolute CD4 Count % CD8 Cells Absolute CD8 Count % CD19 Cells Absolute CD19 Count HIV-1 RNA PCR copies/ml HIV-1 RNA (PCR) log Miscellaneous Test Crossmatch 07/28/18 07/29/18 17:22 04:28 RBC Hgb Hct MCHC RDW Plt Count Lymph % (Auto) Lymph # Seg Neutrophils % Abs Lymphs (Manual) D-Dimer POC ABG pH POC ABG pCO2 65.7 H 55.1 H POC ABG pO2 113 H 76 L Sodium Potassium Chloride Carbon Dioxide Creatinine Glucose POC Glucose Calcium AST ALT Lactate Dehydrogenase C-Reactive Protein Total Protein Albumin Triglycerides Lymph Enumerat CD4/CD8 % CD3 Cells Absolute CD3 Count % CD4 Cells Absolute CD4 Count % CD8 Cells Absolute CD8 Count % CD19 Cells Absolute CD19 Count HIV-1 RNA PCR copies/ml HIV-1 RNA (PCR) log Miscellaneous Test Crossmatch Allied health notes reviewed: nursing
[2018-07-29] MEDS: SENOKOT PO SCH (22:33)
[2018-07-30] MEDS: BACTRIM IV SCH ×4 (00:41→20:25)
[2018-07-30] MEDS: D5W IV SCH ×4 (00:41→20:25)
[2018-07-30] MEDS: fentaNYL DRIP Premix 2,000 MCG/100 ML BAG IV SCH ×3 (02:49→20:25)
--- NOTE | 2018-07-30 04:40 | XRay Report ---
EXAM: XR CHEST 1V AP HISTORY: ETT placement TECHNIQUE: PA and lateral chest x-ray dated 07/30/2018 at 3:34 AM. COMPARISON: CXR dated 07/26/2018. FINDINGS: ET tube in situ with distal tip approximately 6.5 cm above the quan (adequate position). There is a right upper extremity PICC line with the distal tip in the expected location of the SVC (adequate po sition). Recommend careful clinical correlation to ensure venous blood return. Dobbhoff feeding tube in situ with loop in proximal stomach and distal tip in the medial proximal stomach just distal to th e gastroesophageal junction. The heart size and mediastinum are within normal limits. There are stable bilateral lung parenchymal infiltrates which may represent acute multilobar pneumonia and/or cardiogenic or noncardiogenic pulmo nary congestion. Recommend clinical correlation and appropriate followup evaluation as clinically war ranted to ensure complete clearance. There is no gross pleural effusion, or pneumothorax seen. The visualized bony structures are within normal limits. IMPRESSION: 1. Endotracheal tube is noted with its tip adequately situated above the quan. 2. Stable bilateral lung parenchymal infiltrates which may represent acute multilobar pneumonia and/ or cardiogenic or noncardiogenic pulmonary congestion. Recommend clinical correlation and appropriate followup evaluation as clinically warranted to ensure complete clearance. This document is electronically signed by Heather Mark MD., Jul 30 2018 04:38:28 AM ET
[2018-07-30] MEDS: SOLU-Medrol IV SCH ×3 (05:48→21:55)
--- NOTE | 2018-07-30 10:54 | Progress Note ---
Assessment and Plan Cultures: Blood culture 07/11/2018 no growth today. Cryptococcal antigen : negative MRSA PCR: positive Blood culture 07/15/2018: in progress Urine culture 07/15/2018: no growth in 24 hours Sputum culture 07/15/18: MRSA, Jannette CMV PCR 07/15/2018 33,392 copies Assessment: 37 y/o male currently in jail with history of HIV infection of unknown duration, noncompliant with antiretroviral medication, severe malnutrition; admitted on 07/11/2018, brought by law enforcement, due to 2-week history of shortness of breath, generalized weakness and productive cough: 1) Sepsis with new septic shock: off pressors. no fever. Etiology most likely pneumonia. CRP 2.7. Procalcitonin 3.09. 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 CMV +/- MRSA. Sputum culture 07/11/2018 no growth today. Chest CT showed bilateral patchy and somewhat confluent alveolar infiltrates and interstitial infiltrates. No effusions. Mild cardiomegaly. Sputum culture 07/15 grew MRSA and Jannette. Completed linezolid x 10 days until 07/23. 3) HIV, presumed AIDS: Patient has not taken his HIV medication for at least 6 months prior due to his incarceration. On admission he reported 40lbs unintentional weight loss for 2 months and intermittent loose stools over the past 2 weeks. VL 523,000/ CD4=7. Pneumocytosis Jirovecii positive. RPR nonreactive. Hepatitis panel negative. 4) Diarrhea: ? possible opportunistic infection. resolved 5) Acute respiratory failure: not better, from pneumonia. 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: - Group Exercise Instructor planning BIPAP - continue valganciclovir 900 mg PO BID D8 to cover CMV viremia, re-check CMV DNA PCR on 08/06 - continue bactrim IV and solumedrol IV D - contact isolation for MRSA - HIV genotype pending - continue azithromycin 1200 mg PO qweek for MAC prophylaxis - discussed with nursing staff Will follow Ana Kaur MD Infectious Diseases Utility Person [facility] ([facility] M [phone] O [phone] Subjective Date of service: 07/30/18 Principal diagnosis: Acute hypoxemic resp failure; Bilateral pneumonia (PJP); HIV/AIDS Interval history: Alert, follows commands, no fever, intubated, FiO2 45% p 6 ROS unable to obtain Objective - Exam Narrative Exam: General appearance: alert, follows commands on the ventilator Eyes: anicteric sclerae, moist conjunctivae; no lid-lag; PERRLA HENT: Atraumatic; oropharynx +ETT +NGT Neck: Trachea midline; supple, no thyromegaly or lymphadenopathy Lungs: ryland rhonchi CV: tachycardic Abdomen: Soft, non-tender; no masses or hepatosplenomegaly Extremities: No peripheral edema or extremity lymphadenopathy Skin: Normal temperature, turgor and texture; no rash, ulcers or subcutaneous nodules Psych: slightly agitated Neuro: alert moving all extremities - Constitutional Vitals: Vital Signs Temp Pulse Resp BP Pulse Ox 97.8 F 100 H 18 123/76 93 07/30/18 07:37 07/30/18 10:10 07/30/18 10:10 07/30/18 10:10 07/30/18 10:10 Temperature -Last 24 Hours Temperature 97.8 F Temperature 98.0 F Temperature 98.1 F Temperature 98.3 F Temperature 98.8 F Temperature 99.1 F Temperature 99 F - Labs CBC & Chem 7: 07/28/18 05:20 07/28/18 05:20
[2018-07-30] MEDS: VALGANCICLOVIR FEEDTUBE SCH ×2 (11:01→21:56)
[2018-07-30] MEDS: COLACE PO SCH ×2 (11:01→21:56)
[2018-07-30] MEDS: CARDURA PO SCH (11:03)
[2018-07-30] MEDS: PEPCID PO SCH ×2 (11:04→21:56)
[2018-07-30] MEDS: HEPARIN SUB-Q SCH ×2 (11:04→21:58)
[2018-07-30] MEDS ORDERED: NACL 0.9% 1000 ML 1,000 ML ONE (12:01)
--- NOTE | 2018-07-30 12:08 | Progress Note ---
Assessment and Plan Acute hypoxemic respiratory failure, on mechanical ventilatory support. Bilateral pneumonia, high suspicion for Pneumocystis jiroveci pneumonia. MRSA Pneumonia Human immunodeficiency virus/acquired immunodeficiency syndrome,noncompliant with therapy. Hyponatremia. Severe protein calorie malnutrition. Elevated D-dimer. Tobacco use disorder. - keep Peep to 8 cm H2O (we will maintain there during weaning period to prevent quick de-recruitment as has decompensated rapidly during this hospitalization with rapid Peep weaning) - hold weaning till after tracheostomy placement (this week tentatively) - consent placed in chart (2 physician consent as no next of kin available) - continue to wean supplemental oxygen to keep O2 sats 88-90% acutely - continue Seroquel bid dosing to spare IV sedatives - PJP stain positive - continue current LTVV /4-6mls/kg IBW - continue ARDS ventilatory strategies with low TV (will transition to conventional ventilatory modes as ARDS resolves) - continue daily SAT's & SBT assessment as tolerated - continue bronchodilators with pulmonary hygiene per RT - prn ABG's at this point - continue GI & VTE prophylaxis - Lung protective strategies - prn CXR's at this point - VAP bundle addressed - continue Anti-infectives and ART per ID rec's - Chmabers catheter placed for acute urinary retention. - Continue full MVS - Monitor renal indices closely - Avoid nephrotoxic agents, adjust all medications for CrCL - Strict intake and output monitoring - Tube feedings as tolerated - Accuchecks with glycemic control. Target glucose of 140-180 mg/dL - Maintenance of sleep -wake cycle - Mobility as tolerated by hemodynamics - Influenza and pneumonia vaccination per protocol ..care plan discussed at length with RN/RT at the bedside ..discussed in ICU-IDT rounds PROGNOSIS: GUARDED CONDITION: CRITICAL CODE STATUS: FULL CODE The high probability of a clinically significant, sudden or life-threatening deterioration of the [respiratory, neurology, renal] system(s) required my full and direct attention, intervention and personal management. The aggregate critical care time was [32] minutes without overlap. Time includes spent on; [x] Data Review and interpretation [x] Patient assessment and monitoring of vital signs [x] Documentation [x] Medication orders and management Subjective Date of service: 07/30/18 Principal diagnosis: Acute hypoxemic resp failure; Bilateral pneumonia (PJP); HIV/AIDS Interval history: Patient is seen today for: Acute hypoxemic respiratory failure, on mechanical ventilatory support; Bilateral pneumonia, high suspicion for Pneumocystis jiroveci pneumonia; Human immunodeficiency virus/acquired immunodeficiency s yndrome,noncompliant with therapy; Hyponatremia; Severe protein calorie malnutrition. Seen and examined at bedside; 24-hour events reviewed; nursing and respiratory care staff consulted; no adverse overnight events reported to me; remains on MVS; failed SBT today with significant increase in oxygen requirements thereafter; improving now; awaiting trach; denies acute chest pains or palpitations; sedation ongoing to RASS 0; No seizures Objective Vital Signs - 12hr 07/30/18 07/30/18 07/30/18 00:45 01:00 02:00 Temperature Pulse Rate 123 H 105 H 125 H Pulse Rate [ From Monitor] Respiratory 12 29 H Rate Blood Pressure 105/63 101/55 116/72 O2 Sat by Pulse 94 91 90 Oximetry 07/30/18 07/30/18 07/30/18 03:00 03:38 04:00 Temperature 98.0 F Pulse Rate 112 H 110 H 105 H Pulse Rate [ 108 H From Monitor] Respiratory 28 H 21 Rate Blood Pressure 104/62 104/63 100/58 O2 Sat by Pulse 92 95 90 Oximetry 07/30/18 07/30/18 07/30/18 05:03 06:00 07:00 Temperature Pulse Rate 103 H 98 H 100 H Pulse Rate [ From Monitor] Respiratory 17 27 H 14 Rate Blood Pressure 106/64 110/62 103/61 O2 Sat by Pulse 94 91 Oximetry 07/30/18 07/30/18 07/30/18 07:37 07:49 10:06 Temperature 97.8 F Pulse Rate 108 H Pulse Rate [ 120 H From Monitor] Respiratory 24 22 Rate Blood Pressure 122/78 123/76 O2 Sat by Pulse 98 95 93 Oximetry 07/30/18 07/30/18 07/30/18 10:10 11:03 11:37 Temperature Pulse Rate 100 H 111 H 129 H Pulse Rate [ From Monitor] Respiratory 18 Rate Blood Pressure 123/76 107/77 145/100 O2 Sat by Pulse 93 98 Oximetry Constitutional: no acute distress, other (young AAM; normocephalic and atraumatic) Eyes: non-icteric ENT: oropharynx moist, other (ETT 24 cm SHONA) Neck: supple, no lymphadenopathy, no JVD, other (no thyromegaly) Effort: mildly labored Ascultation: Bilateral: diminished breath sounds, rales (bases) Percussion: Bilateral: not dull Cardiovascular: regular rate and rhythm, other (S1,S2, no murmurs, gallops or rubs) Gastrointestinal: normoactive bowel sounds, soft, non-tender, non-distended Integumentary: normal Extremities: no cyanosis, no edema, pulses normal, no ischemia or petechiae Neurologic: normal mental status, non-focal exam, pupils equal and round, CN II- XII normal, motor strength normal and Psychiatric: mood appropriate, affect normal CBC and BMP: 07/28/18 05:20 07/28/18 05:20 ABG, PT/INR, D-dimer: ABG POC ABG pH 7.435 (7.35-7.45) 07/29/18 04:28 POC ABG pCO2 55.1 (35-45) H 07/29/18 04:28 POC ABG pO2 76 (80-105) L 07/29/18 04:28 POC ABG HCO3 37.0 (22-26 mml/L) 07/29/18 04:28 POC ABG Total CO2 39 (23-27mmol/L) 07/29/18 04:28 POC ABG O2 Sat 95 07/29/18 04:28 PT/INR, D-dimer 1298.70 ng/mlDDU (0-234) H 07/11/18 15:04 Abnormal lab findings: Abnormal Labs 07/11/18 07/11/18 07/11/18 14:06 14:06 15:04 RBC 3.30 L Hgb 9.6 L Hct 28.7 L MCHC RDW Plt Count Lymph % (Auto) Lymph # Seg Neutrophils % Abs Lymphs (Manual) D-Dimer 1298.70 H POC ABG pH POC ABG pCO2 POC ABG pO2 Sodium 132 L Potassium Chloride Carbon Dioxide Creatinine 0.6 L Glucose 103 H POC Glucose Calcium 7.3 L AST ALT Lactate Dehydrogenase C-Reactive Protein Total Protein Albumin 2.1 L Triglycerides Lymph Enumerat CD4/CD8 % CD3 Cells Absolute CD3 Count % CD4 Cells Absolute CD4 Count % CD8 Cells Absolute CD8 Count % CD19 Cells Absolute CD19 Count HIV-1 RNA PCR copies/ml HIV-1 RNA (PCR) log Miscellaneous Test Crossmatch 07/11/18 07/11/18 07/12/18 17:36 22:15 00:25 RBC Hgb Hct MCHC RDW Plt Count Lymph % (Auto) Lymph # Seg Neutrophils % Abs Lymphs (Manual) D-Dimer POC ABG pH 7.289 L POC ABG pCO2 POC ABG pO2 66 L Sodium Potassium Chloride Carbon Dioxide Creatinine Glucose POC Glucose Calcium AST ALT Lactate Dehydrogenase 591 H C-Reactive Protein Total Protein Albumin Triglycerides Lymph Enumerat CD4/CD8 % CD3 Cells Absolute CD3 Count % CD4 Cells Absolute CD4 Count % CD8 Cells Absolute CD8 Count % CD19 Cells Absolute CD19 Count HIV-1 RNA PCR copies/ml HIV-1 RNA (PCR) log Miscellaneous Test see below H Crossmatch 07/12/18 07/12/18 07/12/18 00:41 05:37 19:29 RBC Hgb Hct MCHC RDW Plt Count Lymph % (Auto) Lymph # Seg Neutrophils % Abs Lymphs (Manual) D-Dimer POC ABG pH 7.302 L 7.275 L POC ABG pCO2 47.1 H POC ABG pO2 Sodium Potassium Chloride Carbon Dioxide Creatinine Glucose POC Glucose Calcium AST ALT Lactate Dehydrogenase 731 H C-Reactive Protein Total Protein Albumin Triglycerides Lymph Enumerat CD4/CD8 % CD3 Cells Absolute CD3 Count % CD4 Cells Absolute CD4 Count % CD8 Cells Absolute CD8 Count % CD19 Cells Absolute CD19 Count HIV-1 RNA PCR copies/ml HIV-1 RNA (PCR) log Miscellaneous Test Crossmatch 07/12/18 07/12/18 07/13/18 19:29 19:29 04:03 RBC Hgb Hct MCHC RDW Plt Count Lymph % (Auto) Lymph # Seg Neutrophils % Abs Lymphs (Manual) 220 L D-Dimer POC ABG pH 7.254 L POC ABG pCO2 49.2 H POC ABG pO2 Sodium Potassium Chloride Carbon Dioxide Creatinine Glucose POC Glucose Calcium AST ALT Lactate Dehydrogenase C-Reactive Protein Total Protein Albumin Triglycerides Lymph Enumerat CD4/CD8 0.04 L % CD3 Cells 88 H Absolute CD3 Count 194 L % CD4 Cells 3 L Absolute CD4 Count 7 L % CD8 Cells 75 H Absolute CD8 Count 177 L % CD19 Cells 4 L Absolute CD19 Count 9 L HIV-1 RNA PCR copies/ml 161042 H HIV-1 RNA (PCR) log 5.72 H Miscellaneous Test Crossmatch 05/03/19 05/03/19 05/03/19 05:46 12:23 18:31 RBC Hgb Hct MCHC RDW Plt Count Lymph % (Auto) Lymph # Seg Neutrophils % Abs Lymphs (Manual) D-Dimer POC ABG pH POC ABG pCO2 POC ABG pO2 Sodium Potassium Chloride Carbon Dioxide Creatinine Glucose POC Glucose 68 L 106 H 112 H Calcium AST ALT Lactate Dehydrogenase C-Reactive Protein Total Protein Albumin Triglycerides Lymph Enumerat CD4/CD8 % CD3 Cells Absolute CD3 Count % CD4 Cells Absolute CD4 Count % CD8 Cells Absolute CD8 Count % CD19 Cells Absolute CD19 Count HIV-1 RNA PCR copies/ml HIV-1 RNA (PCR) log Miscellaneous Test Crossmatch 07/14/18 07/14/18 07/14/18 04:19 05:36 05:36 RBC 2.99 L Hgb 8.8 L Hct 25.7 L MCHC RDW 15.5 H Plt Count Lymph % (Auto) Lymph # Seg Neutrophils % Abs Lymphs (Manual) D-Dimer POC ABG pH 7.337 L POC ABG pCO2 POC ABG pO2 Sodium 135 L Potassium Chloride Carbon Dioxide 21 L Creatinine 0.7 L Glucose 123 H POC Glucose Calcium 8.2 L AST ALT Lactate Dehydrogenase C-Reactive Protein Total Protein Albumin Triglycerides Lymph Enumerat CD4/CD8 % CD3 Cells Absolute CD3 Count % CD4 Cells Absolute CD4 Count % CD8 Cells Absolute CD8 Count % CD19 Cells Absolute CD19 Count HIV-1 RNA PCR copies/ml HIV-1 RNA (PCR) log Miscellaneous Test Crossmatch 07/14/18 07/14/18 07/14/18 12:14 14:33 17:18 RBC Hgb Hct MCHC RDW Plt Count Lymph % (Auto) Lymph # Seg Neutrophils % Abs Lymphs (Manual) D-Dimer POC ABG pH 7.325 L POC ABG pCO2 POC ABG pO2 75 L Sodium Potassium Chloride Carbon Dioxide Creatinine Glucose POC Glucose 174 H 114 H Calcium AST ALT Lactate Dehydrogenase C-Reactive Protein Total Protein Albumin Triglycerides Lymph Enumerat CD4/CD8 % CD3 Cells Absolute CD3 Count % CD4 Cells Absolute CD4 Count % CD8 Cells Absolute CD8 Count % CD19 Cells Absolute CD19 Count HIV-1 RNA PCR copies/ml HIV-1 RNA (PCR) log Miscellaneous Test Crossmatch 07/15/18 07/15/18 07/15/18 00:17 12:29 12:29 RBC 2.64 L Hgb 7.5 L Hct 22.9 L MCHC RDW 15.4 H Plt Count Lymph % (Auto) 7.0 L Lymph # 0.4 L Seg Neutrophils % 89.6 H Abs Lymphs (Manual) D-Dimer POC ABG pH POC ABG pCO2 POC ABG pO2 Sodium Potassium Chloride Carbon Dioxide Creatinine 0.6 L Glucose 124 H POC Glucose 113 H Calcium 7.3 L AST ALT Lactate Dehydrogenase C-Reactive Protein Total Protein Albumin Triglycerides Lymph Enumerat CD4/CD8 % CD3 Cells Absolute CD3 Count % CD4 Cells Absolute CD4 Count % CD8 Cells Absolute CD8 Count % CD19 Cells Absolute CD19 Count HIV-1 RNA PCR copies/ml HIV-1 RNA (PCR) log Miscellaneous Test Crossmatch 07/15/18 07/16/18 07/16/18 14:09 04:46 07:21 RBC Hgb Hct MCHC RDW Plt Count Lymph % (Auto) Lymph # Seg Neutrophils % Abs Lymphs (Manual) D-Dimer POC ABG pH 7.282 L POC ABG pCO2 52.6 H POC ABG pO2 63 L Sodium Potassium Chloride Carbon Dioxide Creatinine Glucose POC Glucose Calcium AST ALT Lactate Dehydrogenase C-Reactive Protein 2.70 H Total Protein Albumin Triglycerides Lymph Enumerat CD4/CD8 % CD3 Cells Absolute CD3 Count % CD4 Cells Absolute CD4 Count % CD8 Cells Absolute CD8 Count % CD19 Cells Absolute CD19 Count HIV-1 RNA PCR copies/ml HIV-1 RNA (PCR) log Miscellaneous Test Flexitest 1 H Crossmatch 07/16/18 07/16/18 07/16/18 07:21 07:21 16:16 RBC 2.48 L Hgb 7.2 L Hct 21.5 L MCHC RDW 15.7 H Plt Count Lymph % (Auto) Lymph # Seg Neutrophils % Abs Lymphs (Manual) D-Dimer POC ABG pH 7.251 L POC ABG pCO2 62.2 H POC ABG pO2 Sodium 136 L Potassium Chloride Carbon Dioxide Creatinine 0.6 L Glucose 118 H POC Glucose Calcium 7.5 L AST ALT Lactate Dehydrogenase C-Reactive Protein Total Protein Albumin Triglycerides Lymph Enumerat CD4/CD8 % CD3 Cells Absolute CD3 Count % CD4 Cells Absolute CD4 Count % CD8 Cells Absolute CD8 Count % CD19 Cells Absolute CD19 Count HIV-1 RNA PCR copies/ml HIV-1 RNA (PCR) log Miscellaneous Test Crossmatch 07/17/18 07/18/18 07/18/18 04:01 01:10 03:10 RBC 2.20 L Hgb 6.5 L Hct 19.2 L* MCHC RDW 16.0 H Plt Count Lymph % (Auto) 7.2 L Lymph # 0.5 L Seg Neutrophils % 89.9 H Abs Lymphs (Manual) D-Dimer POC ABG pH 7.245 L POC ABG pCO2 63.8 H POC ABG pO2 75 L Sodium Potassium Chloride Carbon Dioxide Creatinine Glucose POC Glucose Calcium AST ALT Lactate Dehydrogenase C-Reactive Protein Total Protein Albumin Triglycerides Lymph Enumerat CD4/CD8 % CD3 Cells Absolute CD3 Count % CD4 Cells Absolute CD4 Count % CD8 Cells Absolute CD8 Count % CD19 Cells Absolute CD19 Count HIV-1 RNA PCR copies/ml HIV-1 RNA (PCR) log Miscellaneous Test Crossmatch See Detail 07/18/18 07/18/18 07/18/18 04:54 05:02 12:59 RBC Hgb Hct MCHC RDW Plt Count Lymph % (Auto) Lymph # Seg Neutrophils % Abs Lymphs (Manual) D-Dimer POC ABG pH 7.615 H POC ABG pCO2 32.6 L 48.8 H POC ABG pO2 79 L 118 H Sodium Potassium Chloride Carbon Dioxide Creatinine Glucose POC Glucose 164 H Calcium AST ALT Lactate Dehydrogenase C-Reactive Protein Total Protein Albumin Triglycerides Lymph Enumerat CD4/CD8 % CD3 Cells Absolute CD3 Count % CD4 Cells Absolute CD4 Count % CD8 Cells Absolute CD8 Count % CD19 Cells Absolute CD19 Count HIV-1 RNA PCR copies/ml HIV-1 RNA (PCR) log Miscellaneous Test Crossmatch 07/18/18 07/18/18 07/19/18 18:25 20:39 03:53 RBC Hgb Hct MCHC RDW Plt Count Lymph % (Auto) Lymph # Seg Neutrophils % Abs Lymphs (Manual) D-Dimer POC ABG pH 7.339 L POC ABG pCO2 59.9 H 65.0 H POC ABG pO2 69 L Sodium Potassium Chloride Carbon Dioxide Creatinine Glucose POC Glucose 155 H Calcium AST ALT Lactate Dehydrogenase C-Reactive Protein Total Protein Albumin Triglycerides Lymph Enumerat CD4/CD8 % CD3 Cells Absolute CD3 Count % CD4 Cells Absolute CD4 Count % CD8 Cells Absolute CD8 Count % CD19 Cells Absolute CD19 Count HIV-1 RNA PCR copies/ml HIV-1 RNA (PCR) log Miscellaneous Test Crossmatch 07/19/18 07/19/18 07/19/18 08:10 08:10 10:52 RBC 2.51 L Hgb 7.4 L Hct 22.0 L MCHC RDW 15.5 H Plt Count Lymph % (Auto) Lymph # Seg Neutrophils % Abs Lymphs (Manual) D-Dimer POC ABG pH POC ABG pCO2 POC ABG pO2 Sodium 130 L Potassium Chloride 89.0 L Carbon Dioxide 33 H Creatinine 0.4 L Glucose 150 H POC Glucose 173 H Calcium 7.5 L AST ALT Lactate Dehydrogenase C-Reactive Protein Total Protein Albumin Triglycerides Lymph Enumerat CD4/CD8 % CD3 Cells Absolute CD3 Count % CD4 Cells Absolute CD4 Count % CD8 Cells Absolute CD8 Count % CD19 Cells Absolute CD19 Count HIV-1 RNA PCR copies/ml HIV-1 RNA (PCR) log Miscellaneous Test Crossmatch 07/19/18 07/19/18 07/20/18 17:06 23:47 04:37 RBC Hgb Hct MCHC RDW Plt Count Lymph % (Auto) Lymph # Seg Neutrophils % Abs Lymphs (Manual) D-Dimer POC ABG pH POC ABG pCO2 58.5 H POC ABG pO2 67 L Sodium Potassium Chloride Carbon Dioxide Creatinine Glucose POC Glucose 117 H 114 H Calcium AST ALT Lactate Dehydrogenase C-Reactive Protein Total Protein Albumin Triglycerides Lymph Enumerat CD4/CD8 % CD3 Cells Absolute CD3 Count % CD4 Cells Absolute CD4 Count % CD8 Cells Absolute CD8 Count % CD19 Cells Absolute CD19 Count HIV-1 RNA PCR copies/ml HIV-1 RNA (PCR) log Miscellaneous Test Crossmatch 07/20/18 07/20/18 07/21/18 06:20 06:20 04:18 RBC 2.69 L Hgb 7.8 L Hct 23.6 L MCHC RDW 15.5 H Plt Count Lymph % (Auto) Lymph # Seg Neutrophils % Abs Lymphs (Manual) D-Dimer POC ABG pH 7.456 H POC ABG pCO2 60.4 H POC ABG pO2 64 L Sodium 134 L Potassium Chloride 89.2 L Carbon Dioxide 38 H Creatinine 0.7 L D Glucose 120 H POC Glucose Calcium 7.6 L AST ALT Lactate Dehydrogenase C-Reactive Protein Total Protein Albumin Triglycerides Lymph Enumerat CD4/CD8 % CD3 Cells Absolute CD3 Count % CD4 Cells Absolute CD4 Count % CD8 Cells Absolute CD8 Count % CD19 Cells Absolute CD19 Count HIV-1 RNA PCR copies/ml HIV-1 RNA (PCR) log Miscellaneous Test Crossmatch 05/01/2907/21/18 07/22/18 04:35 04:35 04:16 RBC 2.62 L 2.37 L Hgb 7.7 L 7.0 L Hct 23.1 L 21.1 L MCHC RDW 15.4 H Plt Count Lymph % (Auto) Lymph # Seg Neutrophils % Abs Lymphs (Manual) D-Dimer POC ABG pH POC ABG pCO2 POC ABG pO2 Sodium 129 L Potassium 5.3 H Chloride 85.3 L Carbon Dioxide 38 H Creatinine 0.4 L Glucose 108 H POC Glucose Calcium 8.0 L AST ALT Lactate Dehydrogenase C-Reactive Protein Total Protein Albumin Triglycerides Lymph Enumerat CD4/CD8 % CD3 Cells Absolute CD3 Count % CD4 Cells Absolute CD4 Count % CD8 Cells Absolute CD8 Count % CD19 Cells Absolute CD19 Count HIV-1 RNA PCR copies/ml HIV-1 RNA (PCR) log Miscellaneous Test Crossmatch 07/22/18 07/23/18 07/23/18 04:16 03:25 12:45 RBC Hgb Hct MCHC RDW Plt Count Lymph % (Auto) Lymph # Seg Neutrophils % Abs Lymphs (Manual) D-Dimer POC ABG pH POC ABG pCO2 69.4 H POC ABG pO2 Sodium 132 L 125 L D Potassium 5.4 H 5.3 H Chloride 87.4 L 80.3 L Carbon Dioxide 38 H 38 H Creatinine 0.4 L 0.3 L Glucose 117 H 124 H POC Glucose Calcium 7.5 L 7.4 L AST ALT Lactate Dehydrogenase C-Reactive Protein Total Protein Albumin Triglycerides Lymph Enumerat CD4/CD8 % CD3 Cells Absolute CD3 Count % CD4 Cells Absolute CD4 Count % CD8 Cells Absolute CD8 Count % CD19 Cells Absolute CD19 Count HIV-1 RNA PCR copies/ml HIV-1 RNA (PCR) log Miscellaneous Test Crossmatch 07/23/18 07/24/18 07/24/18 23:52 04:30 04:30 RBC 2.12 L Hgb 6.3 L Hct 18.9 L* MCHC RDW Plt Count Lymph % (Auto) Lymph # Seg Neutrophils % Abs Lymphs (Manual) D-Dimer POC ABG pH POC ABG pCO2 POC ABG pO2 Sodium 127 L Potassium 5.2 H Chloride 83.9 L Carbon Dioxide 39 H Creatinine 0.3 L Glucose POC Glucose 118 H Calcium 7.5 L AST ALT Lactate Dehydrogenase C-Reactive Protein Total Protein Albumin Triglycerides Lymph Enumerat CD4/CD8 % CD3 Cells Absolute CD3 Count % CD4 Cells Absolute CD4 Count % CD8 Cells Absolute CD8 Count % CD19 Cells Absolute CD19 Count HIV-1 RNA PCR copies/ml HIV-1 RNA (PCR) log Miscellaneous Test Crossmatch 07/24/18 07/24/18 07/24/18 05:11 05:30 07:50 RBC Hgb Hct MCHC RDW Plt Count Lymph % (Auto) Lymph # Seg Neutrophils % Abs Lymphs (Manual) D-Dimer POC ABG pH 7.462 H POC ABG pCO2 58.7 H POC ABG pO2 79 L Sodium Potassium Chloride Carbon Dioxide Creatinine Glucose POC Glucose 145 H Calcium AST ALT Lactate Dehydrogenase C-Reactive Protein Total Protein Albumin Triglycerides Lymph Enumerat CD4/CD8 % CD3 Cells Absolute CD3 Count % CD4 Cells Absolute CD4 Count % CD8 Cells Absolute CD8 Count % CD19 Cells Absolute CD19 Count HIV-1 RNA PCR copies/ml HIV-1 RNA (PCR) log Miscellaneous Test Crossmatch See Detail 07/25/18 07/25/18 07/26/18 09:30 09:30 00:18 RBC 2.99 L Hgb 9.1 L Hct 27.0 L D MCHC RDW Plt Count Lymph % (Auto) Lymph # Seg Neutrophils % Abs Lymphs (Manual) D-Dimer POC ABG pH POC ABG pCO2 POC ABG pO2 Sodium 131 L 135 L Potassium 5.1 H 5.5 H Chloride 84.4 L 88.4 L Carbon Dioxide 39 H 38 H Creatinine 0.3 L 0.3 L Glucose 133 H POC Glucose Calcium 8.0 L AST ALT Lactate Dehydrogenase C-Reactive Protein Total Protein Albumin Triglycerides Lymph Enumerat CD4/CD8 % CD3 Cells Absolute CD3 Count % CD4 Cells Absolute CD4 Count % CD8 Cells Absolute CD8 Count % CD19 Cells Absolute CD19 Count HIV-1 RNA PCR copies/ml HIV-1 RNA (PCR) log Miscellaneous Test Crossmatch 07/26/18 07/26/18 07/26/18 04:07 05:50 05:50 RBC 3.01 L Hgb 9.4 L Hct 27.2 L MCHC 35 H RDW Plt Count Lymph % (Auto) 10.4 L Lymph # 0.9 L Seg Neutrophils % 84.2 H Abs Lymphs (Manual) D-Dimer POC ABG pH 7.456 H POC ABG pCO2 61.4 H POC ABG pO2 68 L Sodium 131 L Potassium 5.1 H Chloride 84.5 L Carbon Dioxide 39 H Creatinine 0.3 L Glucose POC Glucose Calcium AST 78 H ALT 71 H Lactate Dehydrogenase C-Reactive Protein Total Protein 6.0 L Albumin 2.5 L Triglycerides Lymph Enumerat CD4/CD8 % CD3 Cells Absolute CD3 Count % CD4 Cells Absolute CD4 Count % CD8 Cells Absolute CD8 Count % CD19 Cells Absolute CD19 Count HIV-1 RNA PCR copies/ml HIV-1 RNA (PCR) log Miscellaneous Test Crossmatch 07/26/18 07/27/18 07/28/18 14:56 14:26 05:20 RBC Hgb Hct MCHC RDW Plt Count Lymph % (Auto) Lymph # Seg Neutrophils % Abs Lymphs (Manual) D-Dimer POC ABG pH 7.472 H POC ABG pCO2 66.0 H 57.4 H POC ABG pO2 56 L 59 L Sodium Potassium Chloride Carbon Dioxide Creatinine Glucose POC Glucose Calcium AST ALT Lactate Dehydrogenase C-Reactive Protein Total Protein Albumin Triglycerides 209 H Lymph Enumerat CD4/CD8 % CD3 Cells Absolute CD3 Count % CD4 Cells Absolute CD4 Count % CD8 Cells Absolute CD8 Count % CD19 Cells Absolute CD19 Count HIV-1 RNA PCR copies/ml HIV-1 RNA (PCR) log Miscellaneous Test Crossmatch 07/28/18 07/28/18 07/28/18 05:20 05:20 06:08 RBC 3.21 L Hgb 10.0 L Hct 29.9 L MCHC RDW 15.4 H Plt Count 451 H Lymph % (Auto) Lymph # Seg Neutrophils % 81.6 H Abs Lymphs (Manual) D-Dimer POC ABG pH 7.328 L POC ABG pCO2 POC ABG pO2 70 L Sodium 136 L Potassium Chloride 89.9 L Carbon Dioxide 38 H Creatinine 0.4 L Glucose POC Glucose Calcium 8.1 L AST 104 H ALT 113 H Lactate Dehydrogenase C-Reactive Protein Total Protein 6.2 L Albumin 2.5 L Triglycerides Lymph Enumerat CD4/CD8 % CD3 Cells Absolute CD3 Count % CD4 Cells Absolute CD4 Count % CD8 Cells Absolute CD8 Count % CD19 Cells Absolute CD19 Count HIV-1 RNA PCR copies/ml HIV-1 RNA (PCR) log Miscellaneous Test Crossmatch 07/28/18 07/29/18 17:22 04:28 RBC Hgb Hct MCHC RDW Plt Count Lymph % (Auto) Lymph # Seg Neutrophils % Abs Lymphs (Manual) D-Dimer POC ABG pH POC ABG pCO2 65.7 H 55.1 H POC ABG pO2 113 H 76 L Sodium Potassium Chloride Carbon Dioxide Creatinine Glucose POC Glucose Calcium AST ALT Lactate Dehydrogenase C-Reactive Protein Total Protein Albumin Triglycerides Lymph Enumerat CD4/CD8 % CD3 Cells Absolute CD3 Count % CD4 Cells Absolute CD4 Count % CD8 Cells Absolute CD8 Count % CD19 Cells Absolute CD19 Count HIV-1 RNA PCR copies/ml HIV-1 RNA (PCR) log Miscellaneous Test Crossmatch Chest x-ray: image reviewed (persistent but stable bilateral infiltrates) Allied health notes reviewed: nursing
--- NOTE | 2018-07-30 16:58 | Progress Note ---
Assessment and Plan Assessment and plan: Patient is a 37 yo man with a history of HIV and tobacco dependency who presents from [facility] to [facility] ED with sob and cough. Pt admitted to [facility] and initiated on Pneumonia protocol. In the ED, temp 99.8, HR 104, R 29, O2 sat 77%, BP 94/50. WBC 6.1, Hg 9.6, Plat 398. Creat 0.6. Blood culture 07/11/2018 no growth today. Sputum culture 07/11/2018 no growth today. Chest CT showed bilateral patchy and somewhat confluent alveolar infiltrates and interstitial infiltrates. No effusions. Mild cardiomegaly. Patient required emergent intubation following admission to the [facility]. Patient unfortunately has remained on full ventilatory support and very resistant hypoxia currently on high level FIO2.Patient unfortunately has remained on full ventilatory support and very resistant hypoxia currently on high level FIO2. * CT head: No CT evidence of acute intracranial abnormality. Pansinus disease * CTA CHEST: IMPRESSION: No pulmonary embolus. Bilateral patchy and somewhat confluent alveolar infiltrates and interstitial infiltrates. Noeffusions. Mild cardiomegaly. Runnings likely reflect a viral pneumonia or inhalational process * CXR IMPRESSION: Heart size is normal.There are bilateral lower lobe infiltrates. These are slightly worse than the prior study.. There is no pleural effusion or pneumothorax. Endotracheal tube is in the mid trachea. NG tube is in the stomach. There is a right-sided PICC line. The tip is in the superior vena cava.. Acute Hypoxic respiratory failure now on mechanical ventilation >96 HRS: Cont vent support. SBT trials, and possible Trach and peg if no improvement. All other management per Pulmonary. Still with hypoxia. 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 Diarrhea: Improving Hyponatermia Syndrome: monitor sodium levels closely. Severe Protein Malnutrition: Practice Architect to follow AIDS with history of noncompliance: ID following Consitpation: miralax AOCD: monitor cbc closely acute blood loss anemia: Transfused 2 units prbc and monitor Elevated d/DIMER- NO PE noted on CTA chest intermittent labs Restraint renewed From Assisted, no NOK/family listed, Case management to find NOK; poor prognosis CCT 35 minutes The high probability of a clinically significant, sudden or life threatening deterioration of the [pulmonary, system(s) required my full and direct attention, intervention and personal management. The aggregate critical care time was [50] minutes. This time is in addition to time spent performing re ported procedures but includes the following: [x] Data Review and interpretation [x] Patient assessment and monitoring of vital signs [x] Documentation [x] Medication orders and management History Interval history: Patient seen and examined, remains on mechanical ventilation, he awakens but gets anxious and goes into sinus tachycardia during weaning trials Hospitalist Physical - Physical exam Narrative exam: Narrative exam: Gen: thin, critically ill, intubated, and restraints in place HEENT: NCAT, EOMI, PERRL, OP ETT and NGT in place Neck: supple, no JVD CVS/Heart: Regular tachycardia, normal S1S2, pulses present bilaterally Chest/Lungs: tachypenic, diminished bs bilateral, Symmetrical chest expansion, good air entry bilaterally GI/Abdomen: soft, good bowel sounds, no guarding or rebound /Bladder: no suprapubic tenderness, Extermity/Skin: poor skin tone MSK: moves all ext Neuro: moves all ext. No sensory deficit perceived, anxious Psych:unable to assess - Constitutional Vitals: Temp Pulse Resp BP Pulse Ox 97.8 F 118 H 18 115/69 95 07/30/18 07:37 07/30/18 12:45 07/30/18 10:10 07/30/18 12:45 07/30/18 12:45 General appearance: Present: no acute distress, well-nourished Results - Labs CBC & Chem 7: 07/28/18 05:20 07/28/18 05:20 Labs: Laboratory Last Values WBC 8.8 K/mm3 (4.5-11.0) 07/28/18 05:20 RBC 3.21 M/mm3 (3.65-5.03) L 07/28/18 05:20 Hgb 10.0 gm/dl (11.8-15.2) L 07/28/18 05:20 Hct 29.9 % (35.5-45.6) L 07/28/18 05:20 MCV 93 fl (84-94) 07/28/18 05:20 MCH 31 pg (28-32) 07/28/18 05:20 MCHC 34 % (32-34) 07/28/18 05:20 RDW 15.4 % (13.2-15.2) H 07/28/18 05:20 Plt Count 451 K/mm3 (140-440) H 07/28/18 05:20 Lymph % (Auto) 14.5 % (13.4-35.0) 07/28/18 05:20 [place] % (Auto) 3.2 % (0.0-7.3) 07/28/18 05:20 Eos % (Auto) 0.3 % (0.0-4.3) 07/28/18 05:20 Baso % (Auto) 0.4 % (0.0-1.8) 07/28/18 05:20 Lymph # 1.3 K/mm3 (1.2-5.4) 07/28/18 05:20 [place] # 0.3 K/mm3 (0.0-0.8) 07/28/18 05:20 Eos # 0.0 K/mm3 (0.0-0.4) 07/28/18 05:20 Baso # 0.0 K/mm3 (0.0-0.1) 07/28/18 05:20 Add Manual Diff Complete 07/25/18 09:30 Total Counted 100 07/25/18 09:30 Seg Neutrophils % 81.6 % (40.0-70.0) H 07/28/18 05:20 Seg Neuts % (Manual) 63.0 % (40.0-70.0) 07/25/18 09:30 0 % 07/25/18 09:30 35.0 % (13.4-35.0) 07/25/18 09:30 Reactive Lymphs % (Man) 0 % 07/25/18 09:30 1.0 % (0.0-7.3) 07/25/18 09:30 0 % (0.0-4.3) 07/25/18 09:30 0 % (0.0-1.8) 07/25/18 09:30 0 % 07/25/18 09:30 1.0 % 07/25/18 09:30 0 % 07/25/18 09:30 0 % 07/25/18 09:30 Nucleated RBC % Not Reportable 07/25/18 09:30 Seg Neutrophils # 7.2 K/mm3 (1.8-7.7) 07/28/18 05:20 Seg Neutrophils # Man 4.9 K/mm3 (1.8-7.7) 07/25/18 09:30 Band Neutrophils # 0.0 K/mm3 07/25/18 09:30 Abs Lymphs (Manual) 220 cells/uL (850-3900) L 07/12/18 19:29 2.7 K/mm3 (1.2-5.4) 07/25/18 09:30 Abs React Lymphs (Man) 0.0 K/mm3 07/25/18 09:30 0.1 K/mm3 (0.0-0.8) 07/25/18 09:30 0.0 K/mm3 (0.0-0.4) 07/25/18 09:30 0.0 K/mm3 (0.0-0.1) 07/25/18 09:30 0.0 K/mm3 07/25/18 09:30 0.1 K/mm3 07/25/18 09:30 0.0 K/mm3 07/25/18 09:30 Blast Cells # 0.0 K/mm3 07/25/18 09:30 WBC Morphology Not Reportable 07/25/18 09:30 Hypersegmented Neuts Not Reportable 07/25/18 09:30 Hyposegmented Neuts Not Reportable 07/25/18 09:30 Hypogranular Neuts Not Reportable 07/25/18 09:30 Not Reportable 07/25/18 09:30 Not Reportable 07/25/18 09:30 Not Reportable 07/25/18 09:30 Not Reportable 07/25/18 09:30 Not Reportable 07/25/18 09:30 Not Reportable 07/25/18 09:30 Consistent w auto 07/25/18 09:30 Not Reportable 07/25/18 09:30 Plt Clumps, EDTA Not Reportable 07/25/18 09:30 Not Reportable 07/25/18 09:30 Not Reportable 07/25/18 09:30 Not Reportable 07/25/18 09:30 Plt Morphology Comment Not Reportable 07/25/18 09:30 RBC Morphology Not Reportable 07/25/18 09:30 Dimorphic RBCs Not Reportable 07/25/18 09:30 Few 07/25/18 09:30 Not Reportable 07/25/18 09:30 Not Reportable 07/25/18 09:30 1+ 07/25/18 09:30 Not Reportable 07/25/18 09:30 Few 07/25/18 09:30 Not Reportable 07/25/18 09:30 Not Reportable 07/25/18 09:30 Not Reportable 07/25/18 09:30 Rare 07/25/18 09:30 Not Reportable 07/25/18 09:30 Not Reportable 07/25/18 09:30 Not Reportable 07/25/18 09:30 Not Reportable 07/25/18 09:30 Not Reportable 07/25/18 09:30 Not Reportable 07/25/18 09:30 Not Reportable 07/25/18 09:30 Not Reportable 07/25/18 09:30 Not Reportable 07/25/18 09:30 Acanthocytes (Spur) Not Reportable 07/25/18 09:30 Rouleaux Not Reportable 07/25/18 09:30 Not Reportable 07/25/18 09:30 Not Reportable 07/25/18 09:30 Not Reportable 07/25/18 09:30 Not Reportable 07/25/18 09:30 Hem Pathologist Commnt No 07/25/18 09:30 1298.70 ng/mlDDU (0-234) H 07/11/18 15:04 POC ABG pH 7.435 (7.35-7.45) 07/29/18 04:28 POC ABG pCO2 55.1 (35-45) H 07/29/18 04:28 POC ABG pO2 76 (80-105) L 07/29/18 04:28 POC ABG HCO3 37.0 (22-26 mml/L) 07/29/18 04:28 POC ABG Total CO2 39 (23-27mmol/L) 07/29/18 04:28 POC ABG O2 Sat 95 07/29/18 04:28 POC ABG Base Excess 13 ((-2) - (+3)mmol/L) 07/29/18 04:28 50 % 07/29/18 04:28 Sodium 136 mmol/L (137-145) L 07/28/18 05:20 Potassium 4.5 mmol/L (3.6-5.0) 07/28/18 05:20 Chloride 89.9 mmol/L (98-107) L 07/28/18 05:20 Carbon Dioxide 38 mmol/L (22-30) H 07/28/18 05:20 13 mmol/L 07/28/18 05:20 BUN 15 mg/dL (9-20) 07/28/18 05:20 0.4 mg/dL (0.8-1.5) L 07/28/18 05:20 Estimated GFR > 60 ml/min 07/28/18 05:20 38 % 07/28/18 05:20 Glucose 81 mg/dL (75-100) 07/28/18 05:20 POC Glucose 95 (70-105) 07/24/18 13:06 Lactic Acid 1.80 mmol/L (0.7-2.0) 07/11/18 21:01 Calcium 8.1 mg/dL (8.4-10.2) L 07/28/18 05:20 0.20 mg/dL (0.1-1.2) 07/28/18 05:20 AST 104 units/L (5-40) H 07/28/18 05:20 ALT 113 units/L (7-56) H 07/28/18 05:20 89 units/L (35-129) 07/28/18 05:20 731 units/L (91-180) H 07/12/18 19:29 < 0.010 ng/mL (0.00-0.029) 07/11/18 15:04 2.70 mg/dL (0.00-1.30) H 07/15/18 14:09 NT-Pro-B Natriuret Pep 249.7 pg/mL (0-450) 07/11/18 15:04 6.2 g/dL (6.3-8.2) L 07/28/18 05:20 2.5 g/dL (3.9-5) L 07/28/18 05:20 0.7 % 07/28/18 05:20 Triglycerides 209 mg/dL (2-149) H 07/28/18 05:20 Yellow (Yellow) 07/15/18 14:14 Clear (Clear) 07/15/18 14:14 6.0 (5.0-7.0) 07/15/18 14:14 Ur Specific [place] 1.015 (1.003-1.030) 07/15/18 14:14 30 mg/dl mg/dL (Negative) 07/15/18 14:14 Neg mg/dL (Negative) 07/15/18 14:14 Neg mg/dL (Negative) 07/15/18 14:14 Neg (Negative) 07/15/18 14:14 Neg (Negative) 07/15/18 14:14 Neg (Negative) 07/15/18 14:14 < 2.0 mg/dL (<2.0) 07/15/18 14:14 Ur Leukocyte Esterase Neg (Negative) 07/15/18 14:14 2.0 /HPF (0.0-6.0) 07/15/18 14:14 6.0 /HPF (0.0-6.0) 07/15/18 14:14 21 mmol/L 07/19/18 14:27 Lymph Enumerat CD4/CD8 0.04 (0.86-5.00) L 07/12/18 19:29 % CD3 Cells 88 % (57-85) H 07/12/18 19:29 194 cells/uL (840-3060) L 07/12/18 19:29 % CD4 Cells 3 % (30-61) L 07/12/18 19:29 7 cells/uL (490-1740) L 07/12/18 19:29 % CD8 Cells 75 % (12-42) H 07/12/18 19:29 177 cells/uL (180-1170) L 07/12/18 19:29 % CD19 Cells 4 % (6-29) L 07/12/18 19:29 9 cells/uL (110-660) L 07/12/18 19:29 RPR Nonreactive (Nonreactive) 07/12/18 23:38 CMV DNA PCR log copper plater/mL See scanned result 07/15/18 14:09 Hepatitis A IgM Ab Non-reactive (NonReactive) 07/12/18 23:38 Hep Bs Antigen Non-reactive (Negative) 07/12/18 23:38 Hep B Core IgM Ab Non-reactive (NonReactive) 07/12/18 23:38 Non-reactive (NonReactive) 07/12/18 23:38 HIV-1 RNA PCR copies/ml [id number] Copies/mL H 07/12/18 19:29 5.72 Log cps/mL H 07/12/18 19:29 Flexitest 1 H 07/16/18 07:21 Blood Type O POSITIVE 07/24/18 07:50 Antibody Screen Positive 07/24/18 07:50 Prewarmed Antibody Srcn Positive 07/18/18 03:10 Antibody Identification Anti-Adrianna 07/24/18 07:50 Direct Antiglob Test Negative 07/24/18 07:50 NIKUNJ, Poly Interpret Negative 07/24/18 07:50 Crossmatch See Detail 07/24/18 07:50 Active Medications - Current Medications Current Medications: Generic Name Dose Route Start Last Admin Trade Name Freq PRN Reason Stop Dose Admin Acetaminophen 650 mg 07/12/18 18:07 07/21/18 19:30 Tylenol FEEDTUBE 650 mg Q6H PRN Administration Non Cardiac Pain or Temp>100.5 Albuterol 2.5 mg 07/11/18 17:16 07/26/18 12:07 Proventil IH 2.5 mg Q3HRT PRN Administration Shortness Of Breath Lipase/Protease/Amylase 1 each 07/13/18 12:30 Pancreaze 10,500 Unit FEEDTUBE PRN PRN For Clogged Feeding Tube Azithromycin 1,200 mg 07/26/18 10:00 07/26/18 09:55 Zithromax PO 1,200 mg Th HE Administration Docusate Sodium 100 mg 07/15/18 12:00 07/30/18 11:01 Colace PO 100 mg BID HE Administration Doxazosin Mesylate 2 mg 07/18/18 12:00 07/30/18 11:03 Cardura PO 2 mg QDAY HE Administration Famotidine 20 mg 07/16/18 22:00 07/30/18 11:04 Pepcid PO 20 mg BID HE Administration Fentanyl 50 mcg 07/12/18 00:26 07/20/18 09:02 Sublimaze IV 50 mcg Q10MIN PRN Administration ANALGESIA Heparin Sodium (Porcine) 5,000 unit 07/20/18 10:00 07/30/18 11:04 Heparin SUB-Q 5,000 unit BID HE Administration Hydrophilic Ointment 1 applic 07/12/18 13:30 Vaseline Lip Therapy TP Q2HR PRN Dry Lips Fentanyl Citrate 2,000 mcg in 100 mls @ 3.065 mls/hr 07/12/18 01:00 07/30/18 12:26 Fentanyl Drip Premix IV 4 mcg/kg/hr TITR HE 12.26 mls/hr Administration Protocol 1 MCG/KG/HR Propofol 1,000 mg in 100 mls @ 1.839 mls/hr 07/12/18 01:00 07/29/18 13:28 Diprivan 10 Mg/Ml IV 5 mcg/kg/min TITR HE 1.839 mls/hr Administration Protocol 5 MCG/KG/MIN Midazolam HCl 100 mg/ Sodium 100 mls @ 2 mls/hr 07/18/18 13:30 07/29/18 18:29 Chloride IV 3 mg/hr TITR HE 3 mls/hr Titration Protocol 2 MG/HR Trimethoprim/Sulfamethoxazole 268.75 mls @ 350 mls/hr 07/24/18 12:00 07/30/18 12:09 300 mg/ Dextrose IV 350 mls/hr Q6HR HE Administration Protocol Methylprednisolone Sodium Succinate 40 mg 07/16/18 14:00 07/30/18 14:15 Solu-Medrol IV 40 mg Q8HR HE Administration Midazolam HCl 2 mg 07/16/18 13:06 07/26/18 17:42 Versed IV 2 mg Q2H PRN Administration AGITATION Midazolam HCl 2 mg 07/18/18 12:44 Versed IV Q10MIN PRN Sedation Multi-Ingred Cream/Lotion/Oil/Oint 1 applic 07/12/18 13:30 Artificial Tears Ophth Oint OU Q4HR PRN Dry Eye(s) Quetiapine Fumarate 300 mg 07/27/18 22:00 07/30/18 11:02 Seroquel PO 300 mg BID HE Administration Senna 17.2 mg 07/26/18 22:00 07/29/18 22:33 Senokot PO 17.2 mg QHS HE Administration Simple Syrup 15 ml 07/13/18 12:30 Simple Syrup FEEDTUBE PRN PRN Hypoglycemia Simple Syrup 30 ml 07/13/18 12:30 Simple Syrup FEEDTUBE PRN PRN Hypoglycemia Sodium Bicarbonate 325 mg 07/13/18 12:30 Sodium Bicarbonate FEEDTUBE PRN PRN For Clogged Feeding Tube Sodium Chloride 10 ml 07/11/18 22:00 07/29/18 22:34 Sodium Chloride Flush Syringe 10 Ml IV 10 ml BID HE Administration Sodium Chloride 10 ml 07/11/18 17:16 07/18/18 09:00 Sodium Chloride Flush Syringe 10 Ml IV 10 ml PRN PRN Administration LINE FLUSH Nutrition/Malnutrition Assess - Dietary Evaluation Nutrition/Malnutrition Findings: Nutrition Notes Start: 07/12/18 09 :38 Freq: Status: Active Protocol: Document 07/27/18 14:44 RM (Rec: 07/27/18 14:48 RM [id number]) Nutrition Notes Initial or Follow up Reassessment Current Diagnosis Sepsis,Respiratory Failure Other Pertinent Diagnosis Bilat pneu, HIV/AIDS, Diarrhea Current Diet Nepro at 45 ml/hr Labs/Tests K 5.1 Pertinent Medications REviewed Height 5 ft 11 in Weight 65 kg [place] Body Weight (kg) 78.18 BMI 20.0 Subjective/Other Information Observed Nepro infusing at 45 ml/hr. Per nurse pt is tolerating TF. Percent of energy/protein needs met: 100%/100% Burn Absent Trauma Absent #2 Nutrition Diagnosis Inadequate oral intake Diagnosis Progress(for reassessment Continues documentation) #1 Nutrition Diagnosis Malnutrition Diagnosis Progress(for reassessment Continues documentation) Is patient on ventilator? Yes Is Patient Ambulatory and/or Out of Bed No REE-([facility] [place]confined [place] bed) 1925.232 Calculation Used for Recommendations [facility] Additional Notes Pro needs 1.2-2g/k-130g/ day Fluid needs 1ml/kcal Nutrition Intervention Change Diet Order: TF Nutrition Support: Continue Nepro at 45ml/hr. Flush with 150ml q4h Kcal 1,944 Protein (gm) 87 Fluid (mL) 785 Goal #1 TF tolerance Goal #2 TF to continue to meet 90-100% energy and pro needs Goal #3 Wt maintenance and/or gain Anticipated Discharge Needs: Unable to determine at this time Follow-Up By: 08/01/18 Additional Comments Follow for TF tolerance, K lab
[2018-07-30] MEDS: MIDAZOLAM 100 MG in NACL 0.9% 80 ML IV SCH (20:02)
[2018-07-30] MEDS: SENOKOT PO SCH (21:56)
[2018-07-30] MEDS: SODIUM CHLORIDE FLUSH SYRINGE 10 ML IV SCH (21:57)
[2018-07-31] MEDS: D5W IV SCH ×4 (00:42→18:51)
[2018-07-31] MEDS: BACTRIM IV SCH ×4 (00:42→18:51)
[2018-07-31] MEDS: DIPRIVAN 10 MG/ML 1,000 MG/100 ML BOTTLE IV SCH ×2 (01:04→18:50)
[2018-07-31] MEDS: fentaNYL DRIP Premix 2,000 MCG/100 ML BAG IV SCH ×3 (04:28→23:43)
[2018-07-31] MEDS: SOLU-Medrol IV SCH ×3 (06:20→21:55)
--- NOTE | 2018-07-31 08:42 | Progress Note ---
Assessment and Plan Assessment and plan: Patient is a 37 yo man with a history of HIV and tobacco dependency who presents from [facility] to [facility] ED with sob and cough. Pt admitted to [facility] and initiated on Pneumonia protocol. In the ED, temp 99.8, HR 104, R 29, O2 sat 77%, BP 94/50. WBC 6.1, Hg 9.6, Plat 398. Creat 0.6. Blood culture 07/11/2018 no growth today. Sputum culture 07/11/2018 no growth today. Chest CT showed bilateral patchy and somewhat confluent alveolar infiltrates and interstitial infiltrates. No effusions. Mild cardiomegaly. Patient required emergent intubation following admission to the [facility]. Patient unfortunately has remained on full ventilatory support and very resistant hypoxia currently on high level FIO2.Patient unfortunately has remained on full ventilatory support and very resistant hypoxia currently on high level FIO2. * CT head: No CT evidence of acute intracranial abnormality. Pansinus disease * CTA CHEST: IMPRESSION: No pulmonary embolus. Bilateral patchy and somewhat confluent alveolar infiltrates and interstitial infiltrates. Noeffusions. Mild cardiomegaly. Runnings likely reflect a viral pneumonia or inhalational process * CXR IMPRESSION: Heart size is normal.There are bilateral lower lobe infiltrates. These are slightly worse than the prior study.. There is no pleural effusion or pneumothorax. Endotracheal tube is in the mid trachea. NG tube is in the stomach. There is a right-sided PICC line. The tip is in the superior vena cava.. Acute Hypoxic respiratory failure now on mechanical ventilation >96 HRS: Vent dependent , and possible Trach and peg if no improvement. 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 Diarrhea: Improving Hyponatermia Syndrome: monitor sodium levels closely. Severe Protein Malnutrition: Nursing Unit Manager to follow AIDS with history of noncompliance: ID following Consitpation: miralax AOCD: monitor cbc closely acute blood loss anemia: Transfused 2 units prbc and monitor Elevated d/DIMER- NO PE noted on CTA chest intermittent labs Restraint renewed From [facility], no NOK/family listed, Case management to find NOK; poor prognosis History Interval history: Patient seen and examined medical records reviewed Commands intubated on ventilatory support Vent Dependent Vital signs noted Hospitalist Physical - Constitutional Vitals: Temp Pulse Resp BP Pulse Ox 97.3 F L 87 16 114/73 94 07/31/18 08:00 07/31/18 06:00 07/31/18 06:00 07/31/18 06:00 07/31/18 05:00 General appearance: Present: no acute distress, well-nourished, cachectic, dis heveled, other (vent dependent) - EENT Eyes: Present: PERRL, EOM intact - Neck Neck: Present: supple, normal ROM - Respiratory Respiratory effort: normal Respiratory: bilateral: diminished, rhonchi, negative: rales, wheezing - Cardiovascular Rhythm: regular Heart Sounds: Present: S1 & S2 - Extremities Extremities: no ischemia, No edema - Abdominal General gastrointestinal: soft, non-tender, non-distended, normal bowel sounds - Integumentary Integumentary: Present: clear, warm - Psychiatric Psychiatric: appropriate mood/affect, cooperative, other (on vent) - Neurologic Neurologic: moves all extremities Results - Labs CBC & Chem 7: 07/28/18 05:20 07/28/18 05:20 Labs: Laboratory Last Values WBC 8.8 K/mm3 (4.5-11.0) 07/28/18 05:20 RBC 3.21 M/mm3 (3.65-5.03) L 07/28/18 05:20 Hgb 10.0 gm/dl (11.8-15.2) L 07/28/18 05:20 Hct 29.9 % (35.5-45.6) L 07/28/18 05:20 MCV 93 fl (84-94) 07/28/18 05:20 MCH 31 pg (28-32) 07/28/18 05:20 MCHC 34 % (32-34) 07/28/18 05:20 RDW 15.4 % (13.2-15.2) H 07/28/18 05:20 Plt Count 451 K/mm3 (140-440) H 07/28/18 05:20 Lymph % (Auto) 14.5 % (13.4-35.0) 07/28/18 05:20 [place] % (Auto) 3.2 % (0.0-7.3) 07/28/18 05:20 Eos % (Auto) 0.3 % (0.0-4.3) 07/28/18 05:20 Baso % (Auto) 0.4 % (0.0-1.8) 07/28/18 05:20 Lymph # 1.3 K/mm3 (1.2-5.4) 07/28/18 05:20 [place] # 0.3 K/mm3 (0.0-0.8) 07/28/18 05:20 Eos # 0.0 K/mm3 (0.0-0.4) 07/28/18 05:20 Baso # 0.0 K/mm3 (0.0-0.1) 07/28/18 05:20 Add Manual Diff Complete 07/25/18 09:30 Total Counted 100 07/25/18 09:30 Seg Neutrophils % 81.6 % (40.0-70.0) H 07/28/18 05:20 Seg Neuts % (Manual) 63.0 % (40.0-70.0) 07/25/18 09:30 0 % 07/25/18 09:30 35.0 % (13.4-35.0) 07/25/18 09:30 Reactive Lymphs % (Man) 0 % 07/25/18 09:30 1.0 % (0.0-7.3) 07/25/18 09:30 0 % (0.0-4.3) 07/25/18 09:30 0 % (0.0-1.8) 07/25/18 09:30 0 % 07/25/18 09:30 1.0 % 07/25/18 09:30 0 % 07/25/18 09:30 0 % 07/25/18 09:30 Nucleated RBC % Not Reportable 07/25/18 09:30 Seg Neutrophils # 7.2 K/mm3 (1.8-7.7) 07/28/18 05:20 Seg Neutrophils # Man 4.9 K/mm3 (1.8-7.7) 07/25/18 09:30 Band Neutrophils # 0.0 K/mm3 07/25/18 09:30 Abs Lymphs (Manual) 220 cells/uL (850-3900) L 07/12/18 19:29 2.7 K/mm3 (1.2-5.4) 07/25/18 09:30 Abs React Lymphs (Man) 0.0 K/mm3 07/25/18 09:30 0.1 K/mm3 (0.0-0.8) 07/25/18 09:30 0.0 K/mm3 (0.0-0.4) 07/25/18 09:30 0.0 K/mm3 (0.0-0.1) 07/25/18 09:30 0.0 K/mm3 07/25/18 09:30 0.1 K/mm3 07/25/18 09:30 0.0 K/mm3 07/25/18 09:30 Blast Cells # 0.0 K/mm3 07/25/18 09:30 WBC Morphology Not Reportable 07/25/18 09:30 Hypersegmented Neuts Not Reportable 07/25/18 09:30 Hyposegmented Neuts Not Reportable 07/25/18 09:30 Hypogranular Neuts Not Reportable 07/25/18 09:30 Not Reportable 07/25/18 09:30 Not Reportable 07/25/18 09:30 Not Reportable 07/25/18 09:30 Not Reportable 07/25/18 09:30 Not Reportable 07/25/18 09:30 Not Reportable 07/25/18 09:30 Consistent w auto 07/25/18 09:30 Not Reportable 07/25/18 09:30 Plt Clumps, EDTA Not Reportable 07/25/18 09:30 Not Reportable 07/25/18 09:30 Not Reportable 07/25/18 09:30 Not Reportable 07/25/18 09:30 Plt Morphology Comment Not Reportable 07/25/18 09:30 RBC Morphology Not Reportable 07/25/18 09:30 Dimorphic RBCs Not Reportable 07/25/18 09:30 Few 07/25/18 09:30 Not Reportable 07/25/18 09:30 Not Reportable 07/25/18 09:30 1+ 07/25/18 09:30 Not Reportable 07/25/18 09:30 Few 07/25/18 09:30 Not Reportable 07/25/18 09:30 Not Reportable 07/25/18 09:30 Not Reportable 07/25/18 09:30 Rare 07/25/18 09:30 Not Reportable 07/25/18 09:30 Not Reportable 07/25/18 09:30 Not Reportable 07/25/18 09:30 Not Reportable 07/25/18 09:30 Not Reportable 07/25/18 09:30 Not Reportable 07/25/18 09:30 Not Reportable 07/25/18 09:30 Not Reportable 07/25/18 09:30 Not Reportable 07/25/18 09:30 Acanthocytes (Spur) Not Reportable 07/25/18 09:30 Rouleaux Not Reportable 07/25/18 09:30 Not Reportable 07/25/18 09:30 Not Reportable 07/25/18 09:30 Not Reportable 07/25/18 09:30 Not Reportable 07/25/18 09:30 Hem Pathologist Commnt No 07/25/18 09:30 1298.70 ng/mlDDU (0-234) H 07/11/18 15:04 POC ABG pH 7.435 (7.35-7.45) 07/29/18 04:28 POC ABG pCO2 55.1 (35-45) H 07/29/18 04:28 POC ABG pO2 76 (80-105) L 07/29/18 04:28 POC ABG HCO3 37.0 (22-26 mml/L) 07/29/18 04:28 POC ABG Total CO2 39 (23-27mmol/L) 07/29/18 04:28 POC ABG O2 Sat 95 07/29/18 04:28 POC ABG Base Excess 13 ((-2) - (+3)mmol/L) 07/29/18 04:28 50 % 07/29/18 04:28 Sodium 136 mmol/L (137-145) L 07/28/18 05:20 Potassium 4.5 mmol/L (3.6-5.0) 07/28/18 05:20 Chloride 89.9 mmol/L (98-107) L 07/28/18 05:20 Carbon Dioxide 38 mmol/L (22-30) H 07/28/18 05:20 13 mmol/L 07/28/18 05:20 BUN 15 mg/dL (9-20) 07/28/18 05:20 0.4 mg/dL (0.8-1.5) L 07/28/18 05:20 Estimated GFR > 60 ml/min 07/28/18 05:20 38 % 07/28/18 05:20 Glucose 81 mg/dL (75-100) 07/28/18 05:20 POC Glucose 104 (70-105) 07/30/18 15:19 Lactic Acid 1.80 mmol/L (0.7-2.0) 07/11/18 21:01 Calcium 8.1 mg/dL (8.4-10.2) L 07/28/18 05:20 0.20 mg/dL (0.1-1.2) 07/28/18 05:20 AST 104 units/L (5-40) H 07/28/18 05:20 ALT 113 units/L (7-56) H 07/28/18 05:20 89 units/L (35-129) 07/28/18 05:20 731 units/L (91-180) H 07/12/18 19:29 < 0.010 ng/mL (0.00-0.029) 07/11/18 15:04 2.70 mg/dL (0.00-1.30) H 07/15/18 14:09 NT-Pro-B Natriuret Pep 249.7 pg/mL (0-450) 07/11/18 15:04 6.2 g/dL (6.3-8.2) L 07/28/18 05:20 2.5 g/dL (3.9-5) L 07/28/18 05:20 0.7 % 07/28/18 05:20 Triglycerides 209 mg/dL (2-149) H 07/28/18 05:20 Yellow (Yellow) 07/15/18 14:14 Clear (Clear) 07/15/18 14:14 6.0 (5.0-7.0) 07/15/18 14:14 Ur Specific [place] 1.015 (1.003-1.030) 07/15/18 14:14 30 mg/dl mg/dL (Negative) 07/15/18 14:14 Neg mg/dL (Negative) 07/15/18 14:14 Neg mg/dL (Negative) 07/15/18 14:14 Neg (Negative) 07/15/18 14:14 Neg (Negative) 07/15/18 14:14 Neg (Negative) 07/15/18 14:14 < 2.0 mg/dL (<2.0) 07/15/18 14:14 Ur Leukocyte Esterase Neg (Negative) 07/15/18 14:14 2.0 /HPF (0.0-6.0) 07/15/18 14:14 6.0 /HPF (0.0-6.0) 07/15/18 14:14 21 mmol/L 07/19/18 14:27 Lymph Enumerat CD4/CD8 0.04 (0.86-5.00) L 07/12/18 19:29 % CD3 Cells 88 % (57-85) H 07/12/18 19:29 194 cells/uL (840-3060) L 07/12/18 19:29 % CD4 Cells 3 % (30-61) L 07/12/18 19:29 7 cells/uL (490-1740) L 07/12/18 19:29 % CD8 Cells 75 % (12-42) H 07/12/18 19:29 177 cells/uL (180-1170) L 07/12/18 19:29 % CD19 Cells 4 % (6-29) L 07/12/18 19:29 9 cells/uL (110-660) L 07/12/18 19:29 RPR Nonreactive (Nonreactive) 07/12/18 23:38 CMV DNA PCR log copy supervisor/mL See scanned result 07/15/18 14:09 Hepatitis A IgM Ab Non-reactive (NonReactive) 07/12/18 23:38 Hep Bs Antigen Non-reactive (Negative) 07/12/18 23:38 Hep B Core IgM Ab Non-reactive (NonReactive) 07/12/18 23:38 Non-reactive (NonReactive) 07/12/18 23:38 HIV-1 RNA PCR copies/ml 051648 Copies/mL H 07/12/18 19:29 5.72 Log cps/mL H 07/12/18 19:29 Flexitest 1 H 07/16/18 07:21 Blood Type O POSITIVE 07/24/18 07:50 Antibody Screen Positive 07/24/18 07:50 Prewarmed Antibody Srcn Positive 07/18/18 03:10 Antibody Identification Anti-Adrianna 07/24/18 07:50 Direct Antiglob Test Negative 07/24/18 07:50 NIKUNJ, Poly Interpret Negative 07/24/18 07:50 Crossmatch See Detail 07/24/18 07:50 Active Medications - Current Medications Current Medications: Generic Name Dose Route Start Last Admin Trade Name Freq PRN Reason Stop Dose Admin Acetaminophen 650 mg 07/12/18 18:07 07/21/18 19:30 Tylenol FEEDTUBE 650 mg Q6H PRN Administration Non Cardiac Pain or Temp>100.5 Albuterol 2.5 mg 07/11/18 17:16 07/26/18 12:07 Proventil IH 2.5 mg Q3HRT PRN Administration Shortness Of Breath Lipase/Protease/Amylase 1 each 07/13/18 12:[address] 10,500 Unit FEEDTUBE PRN PRN For Clogged Feeding Tube Azithromycin 1,200 mg 07/26/18 10:00 07/26/18 09:55 Zithromax PO 1,200 mg Th HE Administration Docusate Sodium 100 mg 07/15/18 12:00 07/30/18 21:56 Colace PO 100 mg BID HE Administration Doxazosin Mesylate 2 mg 07/18/18 12:00 07/30/18 11:03 Cardura PO 2 mg QDAY HE Administration Famotidine 20 mg 07/16/18 22:00 07/30/18 21:56 Pepcid PO 20 mg BID HE Administration Fentanyl 50 mcg 07/12/18 00:26 07/20/18 09:02 Sublimaze IV 50 mcg Q10MIN PRN Administration ANALGESIA Heparin Sodium (Porcine) 5,000 unit 07/20/18 10:00 07/30/18 21:58 Heparin SUB-Q 5,000 unit BID HE Administration Hydrophilic Ointment 1 applic 07/12/18 13:30 Vaseline Lip Therapy TP Q2HR PRN Dry Lips Fentanyl Citrate 2,000 mcg in 100 mls @ 3.065 mls/hr 07/12/18 01:00 07/31/18 04:28 Fentanyl Drip Premix IV 4 mcg/kg/hr TITR HE 12.26 mls/hr Administration Protocol 1 MCG/KG/HR Propofol 1,000 mg in 100 mls @ 1.839 mls/hr 07/12/18 01:00 07/31/18 01:04 Diprivan 10 Mg/Ml IV 5 mcg/kg/min TITR HE 1.839 mls/hr Administration Protocol 5 MCG/KG/MIN Midazolam HCl 100 mg/ Sodium 100 mls @ 2 mls/hr 07/18/18 13:30 07/30/18 20:02 Chloride IV 3 mg/hr TITR HE 3 mls/hr Administration Protocol 2 MG/HR Trimethoprim/Sulfamethoxazole 268.75 mls @ 350 mls/hr 07/24/18 12:00 07/31/18 06:08 300 mg/ Dextrose IV 350 mls/hr Q6HR HE Administration Protocol Methylprednisolone Sodium Succinate 40 mg 07/16/18 14:00 07/31/18 06:20 Solu-Medrol IV 40 mg Q8HR HE Administration Midazolam HCl 2 mg 07/16/18 13:06 07/26/18 17:42 Versed IV 2 mg Q2H PRN Administration AGITATION Midazolam HCl 2 mg 07/18/18 12:44 Versed IV Q10MIN PRN Sedation Multi-Ingred Cream/Lotion/Oil/Oint 1 applic 07/12/18 13:30 Artificial Tears Ophth Oint OU Q4HR PRN Dry Eye(s) Quetiapine Fumarate 300 mg 07/27/18 22:00 07/30/18 21:55 Seroquel PO 300 mg BID HE Administration Senna 17.2 mg 07/26/18 22:00 07/30/18 21:56 Senokot PO 17.2 mg QHS HE Administration Simple Syrup 15 ml 07/13/18 12:30 Simple Syrup FEEDTUBE PRN PRN Hypoglycemia Simple Syrup 30 ml 07/13/18 12:30 Simple Syrup FEEDTUBE PRN PRN Hypoglycemia Sodium Bicarbonate 325 mg 07/13/18 12:30 Sodium Bicarbonate FEEDTUBE PRN PRN For Clogged Feeding Tube Sodium Chloride 10 ml 07/11/18 22:00 07/30/18 21:57 Sodium Chloride Flush Syringe 10 Ml IV 10 ml BID HE Administration Sodium Chloride 10 ml 07/11/18 17:16 07/18/18 09:00 Sodium Chloride Flush Syringe 10 Ml IV 10 ml PRN PRN Administration LINE FLUSH Nutrition/Malnutrition Assess - Dietary Evaluation Nutrition/Malnutrition Findings: Nutrition Notes Start: 07/12/18 09:38 Freq: Status: Active Protocol: Document 07/27/18 14:44 RM (Rec: 07/27/18 14:48 RM [id number]) Nutrition Notes Initial or Follow up Reassessment Current Diagnosis Sepsis,Respiratory Failure Other Pertinent Diagnosis Bilat pneu, HIV/AIDS, Diarrhea Current Diet Nepro at 45 ml/hr Labs/Tests K 5.1 Pertinent Medications REviewed Height 5 ft 11 in Weight 65 kg [place] Body Weight (kg) 78.18 BMI 20.0 Subjective/Other Information Observed Nepro infusing at 45 ml/hr. Per nurse pt is tolerating TF. Percent of energy/protein needs met: 100%/100% Burn Absent Trauma Absent #2 Nutrition Diagnosis Inadequate oral intake Diagnosis Progress(for reassessment Continues documentation) #1 Nutrition Diagnosis Malnutrition Diagnosis Progress(for reassessment Continues documentation) Is patient on ventilator? Yes Is Patient Ambulatory and/or Out of Bed No REE[facility] [phone] Calculation [facility]ations [facility] Additional Notes Pro needs 1.2-2g/k-130g/ day Fluid needs 1ml/kcal Nutrition Intervention Change Diet Order: TF Nutrition Support: Continue Nepro at 45ml/hr. Flush with 150ml q4h Kcal 1,944 Protein (gm) 87 Fluid (mL) 785 Goal #1 TF tolerance Goal #2 TF to continue to meet 90-100% energy and pro needs Goal #3 Wt maintenance and/or gain Anticipated Discharge Needs: Unable to determine at this time Follow-Up By: 08/01/18 Additional Comments Follow for TF tolerance, K lab
[2018-07-31] MEDS: COLACE PO SCH ×2 (10:21→22:00)
[2018-07-31] MEDS: CARDURA PO SCH (10:22)
[2018-07-31] MEDS: VALGANCICLOVIR FEEDTUBE SCH (10:22)
[2018-07-31] MEDS: SODIUM CHLORIDE FLUSH SYRINGE 10 ML IV SCH ×3 (10:48→23:52)
[2018-07-31] MEDS: HEPARIN SUB-Q SCH ×2 (10:48→21:50)
[2018-07-31] MEDS: PEPCID PO SCH ×2 (10:49→21:45)
--- NOTE | 2018-07-31 12:28 | Progress Note ---
Assessment and Plan Acute hypoxemic respiratory failure, on mechanical ventilatory support. Bilateral pneumonia, high suspicion for Pneumocystis jiroveci pneumonia. MRSA Pneumonia Human immunodeficiency virus/acquired immunodeficiency syndrome,noncompliant with therapy. Hyponatremia. Severe protein calorie malnutrition. Elevated D-dimer. Tobacco use disorder. - continue to keep Peep to 8 cm H2O (we will maintain there during weaning period to prevent quick de-recruitment as has decompensated rapidly during this hospitalization with rapid Peep weaning) - hold weaning till after tracheostomy placement (this week tentatively) - consent placed in chart (2 physician consent as no next of kin available) - continue to wean supplemental oxygen to keep O2 sats 88-90% acutely - continue Seroquel bid dosing to spare IV sedatives - PJP stain positive - continue current LTVV /4-6mls/kg IBW - continue ARDS ventilatory strategies with low TV (will transition to conventional ventilatory modes as ARDS resolves) - continue daily SAT's & SBT assessment as tolerated - continue bronchodilators with pulmonary hygiene per RT - prn ABG's at this point - continue GI & VTE prophylaxis - Lung protective strategies - prn CXR's at this point - VAP bundle addressed - continue Anti-infectives and ART per ID rec's - Chambers catheter placed for acute urinary retention. - Continue full MVS - Monitor renal indices closely - Avoid nephrotoxic agents, adjust all medications for CrCL - Strict intake and output monitoring - Tube feedings as tolerated - Accuchecks with glycemic control. Target glucose of 140-180 mg/dL - Maintenance of sleep -wake cycle - Mobility as tolerated by hemodynamics - Influenza and pneumonia vaccination per protocol ..care plan discussed at length with RN/RT at the bedside ..discussed in ICU-IDT rounds PROGNOSIS: GUARDED CONDITION: CRITICAL CODE STATUS: FULL CODE The high probability of a clinically significant, sudden or life-threatening deterioration of the [respiratory, neurology, renal] system(s) required my full and direct attention, intervention and personal management. The aggregate crit ical care time was [32] minutes without overlap. Time includes spent on; [x] Data Review and interpretation [x] Patient assessment and monitoring of vital signs [x] Documentation [x] Medication orders and management Subjective Date of service: 07/31/18 Principal diagnosis: Acute hypoxemic resp failure; Bilateral pneumonia (PJP); HIV/AIDS Interval history: Patient is seen today for: Acute hypoxemic respiratory failure, on mechanical ventilatory support; Bilateral pneumonia, high suspicion for Pneumocystis jiroveci pneumonia; Human immunodeficiency virus/acquired immunodeficiency syndrome,noncompliant with therapy; Hyponatremia; Severe protein calorie malnutrition. Seen and examined at bedside; 24-hour events reviewed; nursing and respiratory care staff consulted; no adverse overnight events reported to me; remains on MVS; awaiting tracheostomy; denies acute chest pains or palpitations; oxygenation still borderline and FiO2 at 45%; No N/V/F/C Objective Vital Signs - 12hr 07/31/18 07/31/18 07/31/18 01:00 02:00 02:04 Temperature Pulse Rate 108 H 103 H Pulse Rate [ From Monitor] Respiratory 28 H 16 28 H Rate Blood Pressure 112/67 114/69 O2 Sat by Pulse 94 94 Oximetry 07/31/18 07/31/18 07/31/18 03:00 03:33 04:00 Temperature 99 F Pulse Rate 101 H 112 H Pulse Rate [ 111 H From Monitor] Respiratory 24 21 Rate Blood Pressure 115/72 111/73 O2 Sat by Pulse 89 93 Oximetry 07/31/18 07/31/18 07/31/18 05:00 06:00 07:00 Temperature Pulse Rate 97 H 87 90 Pulse Rate [ From Monitor] Respiratory 16 16 16 Rate Blood Pressure 110/70 114/73 111/74 O2 Sat by Pulse 94 Oximetry 07/31/18 07/31/18 07/31/18 08:00 09:00 09:17 Temperature 97.3 F L Pulse Rate 107 H 110 H 100 H Pulse Rate [ From Monitor] Respiratory 24 27 H Rate Blood Pressure 121/72 137/89 132/84 O2 Sat by Pulse 89 89 97 Oximetry 07/31/18 07/31/18 10:22 12:02 Temperature Pulse Rate 98 H 98 H Pulse Rate [ From Monitor] Respiratory Rate Blood Pressure 114/72 124/74 O2 Sat by Pulse 94 Oximetry Constitutional: no acute distress, other (young AAM; normocephalic and atraumatic) Eyes: non-icteric ENT: oropharynx moist, other (ETT 24 cm SHONA) Neck: supple, no lymphadenopathy, no JVD, other (no thyromegaly) Effort: mildly labored Ascultation: Bilateral: diminished breath sounds, rales (bases) Percussion: Bilateral: not dull Cardiovascular: regular rate and rhythm, other (S1,S2, no murmurs, gallops or rubs) Gastrointestinal: normoactive bowel sounds, soft, non-tender, non-distended Integumentary: normal Extremities: no cyanosis, no edema, pulses normal, no ischemia or petechiae Neurologic: normal mental status, non-focal exam, pupils equal and round, CN II- XII normal, motor strength normal and Psychiatric: mood appropriate, affect normal CBC and BMP: 08/07/18 07:57 08/08/18 04:38 ABG, PT/INR, D-dimer: ABG POC ABG pH 7.435 (7.35-7.45) 07/29/18 04:28 POC ABG pCO2 55.1 (35-45) H 07/29/18 04:28 POC ABG pO2 76 (80-105) L 07/29/18 04:28 POC ABG HCO3 37.0 (22-26 mml/L) 07/29/18 04:28 POC ABG Total CO2 39 (23-27mmol/L) 07/29/18 04:28 POC ABG O2 Sat 95 07/29/18 04:28 PT/INR, D-dimer 1298.70 ng/mlDDU (0-234) H 07/11/18 15:04 Abnormal lab findings: Abnormal Labs 07/11/18 07/11/18 07/11/18 14:06 14:06 15:04 RBC 3.30 L Hgb 9.6 L Hct 28.7 L MCHC RDW Plt Count Lymph % (Auto) Lymph # Seg Neutrophils % Abs Lymphs (Manual) D-Dimer 1298.70 H POC ABG pH POC ABG pCO2 POC ABG pO2 Sodium 132 L Potassium Chloride Carbon Dioxide Creatinine 0.6 L Glucose 103 H POC Glucose Calcium 7.3 L AST ALT Lactate Dehydrogenase C-Reactive Protein Total Protein Albumin 2.1 L Triglycerides Lymph Enumerat CD4/CD8 % CD3 Cells Absolute CD3 Count % CD4 Cells Absolute CD4 Count % CD8 Cells Absolute CD8 Count % CD19 Cells Absolute CD19 Count HIV-1 RNA PCR copies/ml HIV-1 RNA (PCR) log Miscellaneous Test Crossmatch 07/11/18 07/11/18 07/12/18 17:36 22:15 00:25 RBC Hgb Hct MCHC RDW Plt Count Lymph % (Auto) Lymph # Seg Neutrophils % Abs Lymphs (Manual) D-Dimer POC ABG pH 7.289 L POC ABG pCO2 POC ABG pO2 66 L Sodium Potassium Chloride Carbon Dioxide Creatinine Glucose POC Glucose Calcium AST ALT Lactate Dehydrogenase 591 H C-Reactive Protein Total Protein Albumin Triglycerides Lymph Enumerat CD4/CD8 % CD3 Cells Absolute CD3 Count % CD4 Cells Absolute CD4 Count % CD8 Cells Absolute CD8 Count % CD19 Cells Absolute CD19 Count HIV-1 RNA PCR copies/ml HIV-1 RNA (PCR) log Miscellaneous Test see below H Crossmatch 07/12/18 07/12/18 07/12/18 00:41 05:37 19:29 RBC Hgb Hct MCHC RDW Plt Count Lymph % (Auto) Lymph # Seg Neutrophils % Abs Lymphs (Manual) D-Dimer POC ABG pH 7.302 L 7.275 L POC ABG pCO2 47.1 H POC ABG pO2 Sodium Potassium Chloride Carbon Dioxide Creatinine Glucose POC Glucose Calcium AST ALT Lactate Dehydrogenase 731 H C-Reactive Protein Total Protein Albumin Triglycerides Lymph Enumerat CD4/CD8 % CD3 Cells Absolute CD3 Count % CD4 Cells Absolute CD4 Count % CD8 Cells Absolute CD8 Count % CD19 Cells Absolute CD19 Count HIV-1 RNA PCR copies/ml HIV-1 RNA (PCR) log Miscellaneous Test Crossmatch 07/12/18 07/12/18 07/13/18 19:29 19:29 04:03 RBC Hgb Hct MCHC RDW Plt Count Lymph % (Auto) Lymph # Seg Neutrophils % Abs Lymphs (Manual) 220 L D-Dimer POC ABG pH 7.254 L POC ABG pCO2 49.2 H POC ABG pO2 Sodium Potassium Chloride Carbon Dioxide Creatinine Glucose POC Glucose Calcium AST ALT Lactate Dehydrogenase C-Reactive Protein Total Protein Albumin Triglycerides Lymph Enumerat CD4/CD8 0.04 L % CD3 Cells 88 H Absolute CD3 Count 194 L % CD4 Cells 3 L Absolute CD4 Count 7 L % CD8 Cells 75 H Absolute CD8 Count 177 L % CD19 Cells 4 L Absolute CD19 Count 9 L HIV-1 RNA PCR copies/ml 760809 H HIV-1 RNA (PCR) log 5.72 H Miscellaneous Test Crossmatch 07/13/18 07/13/18 07/13/18 05:46 12:23 18:31 RBC Hgb Hct MCHC RDW Plt Count Lymph % (Auto) Lymph # Seg Neutrophils % Abs Lymphs (Manual) D-Dimer POC ABG pH POC ABG pCO2 POC ABG pO2 Sodium Potassium Chloride Carbon Dioxide Creatinine Glucose POC Glucose 68 L 106 H 112 H Calcium AST ALT Lactate Dehydrogenase C-Reactive Protein Total Protein Albumin Triglycerides Lymph Enumerat CD4/CD8 % CD3 Cells Absolute CD3 Count % CD4 Cells Absolute CD4 Count % CD8 Cells Absolute CD8 Count % CD19 Cells Absolute CD19 Count HIV-1 RNA PCR copies/ml HIV-1 RNA (PCR) log Miscellaneous Test Crossmatch 07/14/18 07/14/18 07/14/18 04:19 05:36 05:36 RBC 2.99 L Hgb 8.8 L Hct 25.7 L MCHC RDW 15.5 H Plt Count Lymph % (Auto) Lymph # Seg Neutrophils % Abs Lymphs (Manual) D-Dimer POC ABG pH 7.337 L POC ABG pCO2 POC ABG pO2 Sodium 135 L Potassium Chloride Carbon Dioxide 21 L Creatinine 0.7 L Glucose 123 H POC Glucose Calcium 8.2 L AST ALT Lactate Dehydrogenase C-Reactive Protein Total Protein Albumin Triglycerides Lymph Enumerat CD4/CD8 % CD3 Cells Absolute CD3 Count % CD4 Cells Absolute CD4 Count % CD8 Cells Absolute CD8 Count % CD19 Cells Absolute CD19 Count HIV-1 RNA PCR copies/ml HIV-1 RNA (PCR) log Miscellaneous Test Crossmatch 07/14/18 07/14/18 07/14/18 12:14 14:33 17:18 RBC Hgb Hct MCHC RDW Plt Count Lymph % (Auto) Lymph # Seg Neutrophils % Abs Lymphs (Manual) D-Dimer POC ABG pH 7.325 L POC ABG pCO2 POC ABG pO2 75 L Sodium Potassium Chloride Carbon Dioxide Creatinine Glucose POC Glucose 174 H 114 H Calcium AST ALT Lactate Dehydrogenase C-Reactive Protein Total Protein Albumin Triglycerides Lymph Enumerat CD4/CD8 % CD3 Cells Absolute CD3 Count % CD4 Cells Absolute CD4 Count % CD8 Cells Absolute CD8 Count % CD19 Cells Absolute CD19 Count HIV-1 RNA PCR copies/ml HIV-1 RNA (PCR) log Miscellaneous Test Crossmatch 07/15/18 07/15/18 07/15/18 00:17 12:29 12:29 RBC 2.64 L Hgb 7.5 L Hct 22.9 L MCHC RDW 15.4 H Plt Count Lymph % (Auto) 7.0 L Lymph # 0.4 L Seg Neutrophils % 89.6 H Abs Lymphs (Manual) D-Dimer POC ABG pH POC ABG pCO2 POC ABG pO2 Sodium Potassium Chloride Carbon Dioxide Creatinine 0.6 L Glucose 124 H POC Glucose 113 H Calcium 7.3 L AST ALT Lactate Dehydrogenase C-Reactive Protein Total Protein Albumin Triglycerides Lymph Enumerat CD4/CD8 % CD3 Cells Absolute CD3 Count % CD4 Cells Absolute CD4 Count % CD8 Cells Absolute CD8 Count % CD19 Cells Absolute CD19 Count HIV-1 RNA PCR copies/ml HIV-1 RNA (PCR) log Miscellaneous Test Crossmatch 07/15/18 07/16/18 07/16/18 14:09 04:46 07:21 RBC Hgb Hct MCHC RDW Plt Count Lymph % (Auto) Lymph # Seg Neutrophils % Abs Lymphs (Manual) D-Dimer POC ABG pH 7.282 L POC ABG pCO2 52.6 H POC ABG pO2 63 L Sodium Potassium Chloride Carbon Dioxide Creatinine Glucose POC Glucose Calcium AST ALT Lactate Dehydrogenase C-Reactive Protein 2.70 H Total Protein Albumin Triglycerides Lymph Enumerat CD4/CD8 % CD3 Cells Absolute CD3 Count % CD4 Cells Absolute CD4 Count % CD8 Cells Absolute CD8 Count % CD19 Cells Absolute CD19 Count HIV-1 RNA PCR copies/ml HIV-1 RNA (PCR) log Miscellaneous Test Flexitest 1 H Crossmatch 07/16/18 07/16/18 07/16/18 07:21 07:21 16:16 RBC 2.48 L Hgb 7.2 L Hct 21.5 L MCHC RDW 15.7 H Plt Count Lymph % (Auto) Lymph # Seg Neutrophils % Abs Lymphs (Manual) D-Dimer POC ABG pH 7.251 L POC ABG pCO2 62.2 H POC ABG pO2 Sodium 136 L Potassium Chloride Carbon Dioxide Creatinine 0.6 L Glucose 118 H POC Glucose Calcium 7.5 L AST ALT Lactate Dehydrogenase C-Reactive Protein Total Protein Albumin Triglycerides Lymph Enumerat CD4/CD8 % CD3 Cells Absolute CD3 Count % CD4 Cells Absolute CD4 Count % CD8 Cells Absolute CD8 Count % CD19 Cells Absolute CD19 Count HIV-1 RNA PCR copies/ml HIV-1 RNA (PCR) log Miscellaneous Test Crossmatch 07/17/18 07/18/18 07/18/18 04:01 01:10 03:10 RBC 2.20 L Hgb 6.5 L Hct 19.2 L* MCHC RDW 16.0 H Plt Count Lymph % (Auto) 7.2 L Lymph # 0.5 L Seg Neutrophils % 89.9 H Abs Lymphs (Manual) D-Dimer POC ABG pH 7.245 L POC ABG pCO2 63.8 H POC ABG pO2 75 L Sodium Potassium Chloride Carbon Dioxide Creatinine Glucose POC Glucose Calcium AST ALT Lactate Dehydrogenase C-Reactive Protein Total Protein Albumin Triglycerides Lymph Enumerat CD4/CD8 % CD3 Cells Absolute CD3 Count % CD4 Cells Absolute CD4 Count % CD8 Cells Absolute CD8 Count % CD19 Cells Absolute CD19 Count HIV-1 RNA PCR copies/ml HIV-1 RNA (PCR) log Miscellaneous Test Crossmatch See Detail 07/18/18 07/18/18 07/18/18 04:54 05:02 12:59 RBC Hgb Hct MCHC RDW Plt Count Lymph % (Auto) Lymph # Seg Neutrophils % Abs Lymphs (Manual) D-Dimer POC ABG pH 7.615 H POC ABG pCO2 32.6 L 48.8 H POC ABG pO2 79 L 118 H Sodium Potassium Chloride Carbon Dioxide Creatinine Glucose POC Glucose 164 H Calcium AST ALT Lactate Dehydrogenase C-Reactive Protein Total Protein Albumin Triglycerides Lymph Enumerat CD4/CD8 % CD3 Cells Absolute CD3 Count % CD4 Cells Absolute CD4 Count % CD8 Cells Absolute CD8 Count % CD19 Cells Absolute CD19 Count HIV-1 RNA PCR copies/ml HIV-1 RNA (PCR) log Miscellaneous Test Crossmatch 07/18/18 07/18/18 07/19/18 18:25 20:39 03:53 RBC Hgb Hct MCHC RDW Plt Count Lymph % (Auto) Lymph # Seg Neutrophils % Abs Lymphs (Manual) D-Dimer POC ABG pH 7.339 L POC ABG pCO2 59.9 H 65.0 H POC ABG pO2 69 L Sodium Potassium Chloride Carbon Dioxide Creatinine Glucose POC Glucose 155 H Calcium AST ALT Lactate Dehydrogenase C-Reactive Protein Total Protein Albumin Triglycerides Lymph Enumerat CD4/CD8 % CD3 Cells Absolute CD3 Count % CD4 Cells Absolute CD4 Count % CD8 Cells Absolute CD8 Count % CD19 Cells Absolute CD19 Count HIV-1 RNA PCR copies/ml HIV-1 RNA (PCR) log Miscellaneous Test Crossmatch 07/19/18 07/19/18 07/19/18 08:10 08:10 10:52 RBC 2.51 L Hgb 7.4 L Hct 22.0 L MCHC RDW 15.5 H Plt Count Lymph % (Auto) Lymph # Seg Neutrophils % Abs Lymphs (Manual) D-Dimer POC ABG pH POC ABG pCO2 POC ABG pO2 Sodium 130 L Potassium Chloride 89.0 L Carbon Dioxide 33 H Creatinine 0.4 L Glucose 150 H POC Glucose 173 H Calcium 7.5 L AST ALT Lactate Dehydrogenase C-Reactive Protein Total Protein Albumin Triglycerides Lymph Enumerat CD4/CD8 % CD3 Cells Absolute CD3 Count % CD4 Cells Absolute CD4 Count % CD8 Cells Absolute CD8 Count % CD19 Cells Absolute CD19 Count HIV-1 RNA PCR copies/ml HIV-1 RNA (PCR) log Miscellaneous Test Crossmatch 07/19/18 07/19/18 07/20/18 17:06 23:47 04:37 RBC Hgb Hct MCHC RDW Plt Count Lymph % (Auto) Lymph # Seg Neutrophils % Abs Lymphs (Manual) D-Dimer POC ABG pH POC ABG pCO2 58.5 H POC ABG pO2 67 L Sodium Potassium Chloride Carbon Dioxide Creatinine Glucose POC Glucose 117 H 114 H Calcium AST ALT Lactate Dehydrogenase C-Reactive Protein Total Protein Albumin Triglycerides Lymph Enumerat CD4/CD8 % CD3 Cells Absolute CD3 Count % CD4 Cells Absolute CD4 Count % CD8 Cells Absolute CD8 Count % CD19 Cells Absolute CD19 Count HIV-1 RNA PCR copies/ml HIV-1 RNA (PCR) log Miscellaneous Test Crossmatch 07/20/18 07/20/18 07/21/18 06:20 06:20 04:18 RBC 2.69 L Hgb 7.8 L Hct 23.6 L MCHC RDW 15.5 H Plt Count Lymph % (Auto) Lymph # Seg Neutrophils % Abs Lymphs (Manual) D-Dimer POC ABG pH 7.456 H POC ABG pCO2 60.4 H POC ABG pO2 64 L Sodium 134 L Potassium Chloride 89.2 L Carbon Dioxide 38 H Creatinine 0.7 L D Glucose 120 H POC Glucose Calcium 7.6 L AST ALT Lactate Dehydrogenase C-Reactive Protein Total Protein Albumin Triglycerides Lymph Enumerat CD4/CD8 % CD3 Cells Absolute CD3 Count % CD4 Cells Absolute CD4 Count % CD8 Cells Absolute CD8 Count % CD19 Cells Absolute CD19 Count HIV-1 RNA PCR copies/ml HIV-1 RNA (PCR) log Miscellaneous Test Crossmatch 07/21/18 07/21/18 07/22/18 04:35 04:35 04:16 RBC 2.62 L 2.37 L Hgb 7.7 L 7.0 L Hct 23.1 L 21.1 L MCHC RDW 15.4 H Plt Count Lymph % (Auto) Lymph # Seg Neutrophils % Abs Lymphs (Manual) D-Dimer POC ABG pH POC ABG pCO2 POC ABG pO2 Sodium 129 L Potassium 5.3 H Chloride 85.3 L Carbon Dioxide 38 H Creatinine 0.4 L Glucose 108 H POC Glucose Calcium 8.0 L AST ALT Lactate Dehydrogenase C-Reactive Protein Total Protein Albumin Triglycerides Lymph Enumerat CD4/CD8 % CD3 Cells Absolute CD3 Count % CD4 Cells Absolute CD4 Count % CD8 Cells Absolute CD8 Count % CD19 Cells Absolute CD19 Count HIV-1 RNA PCR copies/ml HIV-1 RNA (PCR) log Miscellaneous Test Crossmatch 07/22/18 07/23/18 07/23/18 04:16 03:25 12:45 RBC Hgb Hct MCHC RDW Plt Count Lymph % (Auto) Lymph # Seg Neutrophils % Abs Lymphs (Manual) D-Dimer POC ABG pH POC ABG pCO2 69.4 H POC ABG pO2 Sodium 132 L 125 L D Potassium 5.4 H 5.3 H Chloride 87.4 L 80.3 L Carbon Dioxide 38 H 38 H Creatinine 0.4 L 0.3 L Glucose 117 H 124 H POC Glucose Calcium 7.5 L 7.4 L AST ALT Lactate Dehydrogenase C-Reactive Protein Total Protein Albumin Triglycerides Lymph Enumerat CD4/CD8 % CD3 Cells Absolute CD3 Count % CD4 Cells Absolute CD4 Count % CD8 Cells Absolute CD8 Count % CD19 Cells Absolute CD19 Count HIV-1 RNA PCR copies/ml HIV-1 RNA (PCR) log Miscellaneous Test Crossmatch 07/23/18 07/24/18 07/24/18 23:52 04:30 04:30 RBC 2.12 L Hgb 6.3 L Hct 18.9 L* MCHC RDW Plt Count Lymph % (Auto) Lymph # Seg Neutrophils % Abs Lymphs (Manual) D-Dimer POC ABG pH POC ABG pCO2 POC ABG pO2 Sodium 127 L Potassium 5.2 H Chloride 83.9 L Carbon Dioxide 39 H Creatinine 0.3 L Glucose POC Glucose 118 H Calcium 7.5 L AST ALT Lactate Dehydrogenase C-Reactive Protein Total Protein Albumin Triglycerides Lymph Enumerat CD4/CD8 % CD3 Cells Absolute CD3 Count % CD4 Cells Absolute CD4 Count % CD8 Cells Absolute CD8 Count % CD19 Cells Absolute CD19 Count HIV-1 RNA PCR copies/ml HIV-1 RNA (PCR) log Miscellaneous Test Crossmatch 07/24/18 07/24/18 07/24/18 05:11 05:30 07:50 RBC Hgb Hct MCHC RDW Plt Count Lymph % (Auto) Lymph # Seg Neutrophils % Abs Lymphs (Manual) D-Dimer POC ABG pH 7.462 H POC ABG pCO2 58.7 H POC ABG pO2 79 L Sodium Potassium Chloride Carbon Dioxide Creatinine Glucose POC Glucose 145 H Calcium AST ALT Lactate Dehydrogenase C-Reactive Protein Total Protein Albumin Triglycerides Lymph Enumerat CD4/CD8 % CD3 Cells Absolute CD3 Count % CD4 Cells Absolute CD4 Count % CD8 Cells Absolute CD8 Count % CD19 Cells Absolute CD19 Count HIV-1 RNA PCR copies/ml HIV-1 RNA (PCR) log Miscellaneous Test Crossmatch See Detail 07/25/18 07/25/18 07/26/18 09:30 09:30 00:18 RBC 2.99 L Hgb 9.1 L Hct 27.0 L D MCHC RDW Plt Count Lymph % (Auto) Lymph # Seg Neutrophils % Abs Lymphs (Manual) D-Dimer POC ABG pH POC ABG pCO2 POC ABG pO2 Sodium 131 L 135 L Potassium 5.1 H 5.5 H Chloride 84.4 L 88.4 L Carbon Dioxide 39 H 38 H Creatinine 0.3 L 0.3 L Glucose 133 H POC Glucose Calcium 8.0 L AST ALT Lactate Dehydrogenase C-Reactive Protein Total Protein Albumin Triglycerides Lymph Enumerat CD4/CD8 % CD3 Cells Absolute CD3 Count % CD4 Cells Absolute CD4 Count % CD8 Cells Absolute CD8 Count % CD19 Cells Absolute CD19 Count HIV-1 RNA PCR copies/ml HIV-1 RNA (PCR) log Miscellaneous Test Crossmatch 07/26/18 07/26/18 07/26/18 04:07 05:50 05:50 RBC 3.01 L Hgb 9.4 L Hct 27.2 L MCHC 35 H RDW Plt Count Lymph % (Auto) 10.4 L Lymph # 0.9 L Seg Neutrophils % 84.2 H Abs Lymphs (Manual) D-Dimer POC ABG pH 7.456 H POC ABG pCO2 61.4 H POC ABG pO2 68 L Sodium 131 L Potassium 5.1 H Chloride 84.5 L Carbon Dioxide 39 H Creatinine 0.3 L Glucose POC Glucose Calcium AST 78 H ALT 71 H Lactate Dehydrogenase C-Reactive Protein Total Protein 6.0 L Albumin 2.5 L Triglycerides Lymph Enumerat CD4/CD8 % CD3 Cells Absolute CD3 Count % CD4 Cells Absolute CD4 Count % CD8 Cells Absolute CD8 Count % CD19 Cells Absolute CD19 Count HIV-1 RNA PCR copies/ml HIV-1 RNA (PCR) log Miscellaneous Test Crossmatch 07/26/18 07/27/18 07/28/18 14:56 14:26 05:20 RBC Hgb Hct MCHC RDW Plt Count Lymph % (Auto) Lymph # Seg Neutrophils % Abs Lymphs (Manual) D-Dimer POC ABG pH 7.472 H POC ABG pCO2 66.0 H 57.4 H POC ABG pO2 56 L 59 L Sodium Potassium Chloride Carbon Dioxide Creatinine Glucose POC Glucose Calcium AST ALT Lactate Dehydrogenase C-Reactive Protein Total Protein Albumin Triglycerides 209 H Lymph Enumerat CD4/CD8 % CD3 Cells Absolute CD3 Count % CD4 Cells Absolute CD4 Count % CD8 Cells Absolute CD8 Count % CD19 Cells Absolute CD19 Count HIV-1 RNA PCR copies/ml HIV-1 RNA (PCR) log Miscellaneous Test Crossmatch 07/28/18 07/28/18 07/28/18 05:20 05:20 06:08 RBC 3.21 L Hgb 10.0 L Hct 29.9 L MCHC RDW 15.4 H Plt Count 451 H Lymph % (Auto) Lymph # Seg Neutrophils % 81.6 H Abs Lymphs (Manual) D-Dimer POC ABG pH 7.328 L POC ABG pCO2 POC ABG pO2 70 L Sodium 136 L Potassium Chloride 89.9 L Carbon Dioxide 38 H Creatinine 0.4 L Glucose POC Glucose Calcium 8.1 L AST 104 H ALT 113 H Lactate Dehydrogenase C-Reactive Protein Total Protein 6.2 L Albumin 2.5 L Triglycerides Lymph Enumerat CD4/CD8 % CD3 Cells Absolute CD3 Count % CD4 Cells Absolute CD4 Count % CD8 Cells Absolute CD8 Count % CD19 Cells Absolute CD19 Count HIV-1 RNA PCR copies/ml HIV-1 RNA (PCR) log Miscellaneous Test Crossmatch 07/28/18 07/29/18 17:22 04:28 RBC Hgb Hct MCHC RDW Plt Count Lymph % (Auto) Lymph # Seg Neutrophils % Abs Lymphs (Manual) D-Dimer POC ABG pH POC ABG pCO2 65.7 H 55.1 H POC ABG pO2 113 H 76 L Sodium Potassium Chloride Carbon Dioxide Creatinine Glucose POC Glucose Calcium AST ALT Lactate Dehydrogenase C-Reactive Protein Total Protein Albumin Triglycerides Lymph Enumerat CD4/CD8 % CD3 Cells Absolute CD3 Count % CD4 Cells Absolute CD4 Count % CD8 Cells Absolute CD8 Count % CD19 Cells Absolute CD19 Count HIV-1 RNA PCR copies/ml HIV-1 RNA (PCR) log Miscellaneous Test Crossmatch Allied health notes reviewed: nursing
--- NOTE | 2018-07-31 14:29 | Progress Note ---
Assessment and Plan Cultures: Blood culture 07/11/2018 no growth today. Cryptococcal antigen : negative MRSA PCR: positive Blood culture 07/15/2018: in progress Urine culture 07/15/2018: no growth in 24 hours Sputum culture 07/15/18: MRSA, Jannette CMV PCR 07/15/2018 33,392 copies Assessment: 37 y/o male currently in retirement with history of HIV infection of unknown duration, noncompliant with antiretroviral medication, severe malnutrition; admitted on 07/11/2018, brought by law enforcement, due to 2-week history of shortness of breath, generalized weakness and productive cough: 1) Sepsis with new septic shock: off pressors. no fever. Etiology most likely pneumonia. CRP 2.7. Procalcitonin 3.09. 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 CMV +/- MRSA. Sputum culture 07/11/2018 no growth today. Chest CT showed bilateral patchy and somewhat confluent alveolar infiltrates and interstitial infiltrates. No effusions. Mild cardiomegaly. Sputum culture 07/15 grew MRSA and Jannette. Completed linezolid x 10 days until 07/23. 3) HIV, presumed AIDS: Patient has not taken his HIV medication for at least 6 months prior due to his incarceration. On admission he reported 40lbs unintentional weight loss for 2 months and intermittent loose stools over the past 2 weeks. VL 523,000/ CD4=7. Pneumocytosis Jirovecii positive. RPR nonreactive. Hepatitis panel negative. 4) Diarrhea: ? possible opportunistic infection. resolved 5) Acute respiratory failure: not better, from pneumonia. 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 - continue valganciclovir 900 mg PO BID D9 to cover CMV viremia, re-check CMV DNA PCR on 08/06 - stop bactrim IV and solumedrol IV D - start bactrim DS 1 tab q day for PJP prophylaxis - contact isolation for MRSA - HIV genotype pending - continue azithromycin 1200 mg PO qweek for MAC prophylaxis Will follow Ana Kaur MD Infectious Diseases Calculator Operator [facility] M [phone] O [phone] Subjective Date of service: 07/31/18 Principal diagnosis: Acute hypoxemic resp failure; Bilateral pneumonia (PJP); HIV/AIDS Interval history: Alert, follows commands, no fever, intubated, FiO2 40% p 8 ROS unable to obtain Objective - Exam Narrative Exam: General appearance: alert, follows commands on the ventilator Eyes: anicteric sclerae, moist conjunctivae; no lid-lag; PERRLA HENT: Atraumatic; oropharynx +ETT +NGT Neck: Trachea midline; supple, no thyromegaly or lymphadenopathy Lungs: ryland rhonchi CV: tachycardic Abdomen: Soft, non-tender; no masses or hepatosplenomegaly Extremities: No peripheral edema or extremity lymphadenopathy Skin: Normal temperature, turgor and texture; no rash, ulcers or subcutaneous nodules Psych: no agitated Neuro: alert moving all extremities - Constitutional Vitals: Vital Signs Temp Pulse Resp BP Pulse Ox 97.2 F L 91 H 19 118/72 91 07/31/18 12:00 07/31/18 13:00 07/31/18 13:00 07/31/18 13:00 07/31/18 13:00 Temperature -Last 24 Hours Temperature 97.2 F Temperature 97.3 F Temperature 99 F Temperature 99.1 F Temperature 97.7 F - Labs CBC & Chem 7: 07/28/18 05:20 07/28/18 05:20
--- NOTE | 2018-07-31 14:36 | Event Note ---
Date: 07/31/18 Pt awake. nodded his head in the affirmative that he is ok with the trach placement. Will place pre-op orders. Scheduled for bedside perc trach tomorrow at 1300. Vent settings settings are better today.
[2018-07-31] MEDS: SENOKOT PO SCH (23:52)
[2018-08-01] MEDS: SENOKOT PO SCH (00:24)
[2018-08-01] MEDS: MIDAZOLAM 100 MG in NACL 0.9% 80 ML IV SCH (03:43)
[2018-08-01] MEDS: fentaNYL DRIP Premix 2,000 MCG/100 ML BAG IV SCH ×4 (03:44→23:17)
[2018-08-01] MEDS: SOLU-Medrol IV SCH (05:43)
--- NOTE | 2018-08-01 09:10 | Progress Note ---
Assessment and Plan Assessment and plan: Acute Hypoxic respiratory failure now on mechanical ventilation >96 HRS: Vent dependent , and possible Trach and peg if no improvement. 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 Diarrhea: Improving Hyponatermia Syndrome: monitor sodium levels closely. 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 AIDS with history of noncompliance: ID following Consitpation: miralax acute blood loss anemia: Transfused 2 units prbc and monitor Elevated d/DIMER- NO PE noted on CTA chest Restraint renewed From [facility], no NOK/family listed, Case management to find NOK; poor prognosis Critical care time 32 minutes History Interval history: Isn't seen and examined medical records reviewed Remains intubated on ventilatory support, not in acute distress Unable to Wean, surgery planning tracheostomy and PEG placement today Hospitalist Physical - Constitutional Vitals: Temp Pulse Resp BP Pulse Ox 98.0 F 112 H 27 H 118/91 92 08/01/18 04:00 08/01/18 08:05 08/01/18 08:00 08/01/18 08:05 08/01/18 08:05 General appearance: Present: no acute distress, well-nourished, cachectic, disheveled, other (vent dependent) - EENT Eyes: Present: PERRL, EOM intact - Neck Neck: Present: supple, normal ROM - Respiratory Respiratory effort: normal Respiratory: bilateral: diminished, rhonchi, negative: rales, wheezing - Cardiovascular Rhythm: regular Heart Sounds: Present: S1 & S2 - Extremities Extremities: no ischemia, No edema - Abdominal General gastrointestinal: soft, non-tender, non-distended, normal bowel sounds - Integumentary Integumentary: Present: clear, warm - Psychiatric Psychiatric: appropriate mood/affect, cooperative - Neurologic Neurologic: other (alert and awake responding to simple questions) Results - Labs CBC & Chem 7: 07/28/18 05:20 07/28/18 05:20 Labs: Laboratory Last Values WBC 8.8 K/mm3 (4.5-11.0) 07/28/18 05:20 RBC 3.21 M/mm3 (3.65-5.03) L 07/28/18 05:20 Hgb 10.0 gm/dl (11.8-15.2) L 07/28/18 05:20 Hct 29.9 % (35.5-45.6) L 07/28/18 05:20 MCV 93 fl (84-94) 07/28/18 05:20 MCH 31 pg (28-32) 07/28/18 05:20 MCHC 34 % (32-34) 07/28/18 05:20 RDW 15.4 % (13.2-15.2) H 07/28/18 05:20 Plt Count 451 K/mm3 (140-440) H 07/28/18 05:20 Lymph % (Auto) 14.5 % (13.4-35.0) 07/28/18 05:20 [place] % (Auto) 3.2 % (0.0-7.3) 07/28/18 05:20 Eos % (Auto) 0.3 % (0.0-4.3) 07/28/18 05:20 Baso % (Auto) 0.4 % (0.0-1.8) 07/28/18 05:20 Lymph # 1.3 K/mm3 (1.2-5.4) 07/28/18 05:20 [place] # 0.3 K/mm3 (0.0-0.8) 07/28/18 05:20 Eos # 0.0 K/mm3 (0.0-0.4) 07/28/18 05:20 Baso # 0.0 K/mm3 (0.0-0.1) 07/28/18 05:20 Add Manual Diff Complete 07/25/18 09:30 Total Counted 100 07/25/18 09:30 Seg Neutrophils % 81.6 % (40.0-70.0) H 07/28/18 05:20 Seg Neuts % (Manual) 63.0 % (40.0-70.0) 07/25/18 09:30 0 % 07/25/18 09:30 35.0 % (13.4-35.0) 07/25/18 09:30 Reactive Lymphs % (Man) 0 % 07/25/18 09:30 1.0 % (0.0-7.3) 07/25/18 09:30 0 % (0.0-4.3) 07/25/18 09:30 0 % (0.0-1.8) 07/25/18 09:30 0 % 07/25/18 09:30 1.0 % 07/25/18 09:30 0 % 07/25/18 09:30 0 % 07/25/18 09:30 Nucleated RBC % Not Reportable 07/25/18 09:30 Seg Neutrophils # 7.2 K/mm3 (1.8-7.7) 07/28/18 05:20 Seg Neutrophils # Man 4.9 K/mm3 (1.8-7.7) 07/25/18 09:30 Band Neutrophils # 0.0 K/mm3 07/25/18 09:30 Abs Lymphs (Manual) 220 cells/uL (850-3900) L 07/12/18 19:29 2.7 K/mm3 (1.2-5.4) 07/25/18 09:30 Abs React Lymphs (Man) 0.0 K/mm3 07/25/18 09:30 0.1 K/mm3 (0.0-0.8) 07/25/18 09:30 0.0 K/mm3 (0.0-0.4) 07/25/18 09:30 0.0 K/mm3 (0.0-0.1) 07/25/18 09:30 0.0 K/mm3 07/25/18 09:30 0.1 K/mm3 07/25/18 09:30 0.0 K/mm3 07/25/18 09:30 Blast Cells # 0.0 K/mm3 07/25/18 09:30 WBC Morphology Not Reportable 07/25/18 09:30 Hypersegmented Neuts Not Reportable 07/25/18 09:30 Hyposegmented Neuts Not Reportable 07/25/18 09:30 Hypogranular Neuts Not Reportable 07/25/18 09:30 Not Reportable 07/25/18 09:30 Not Reportable 07/25/18 09:30 Not Reportable 07/25/18 09:30 Not Reportable 07/25/18 09:30 Not Reportable 07/25/18 09:30 Not Reportable 07/25/18 09:30 Consistent w auto 07/25/18 09:30 Not Reportable 07/25/18 09:30 Plt Clumps, EDTA Not Reportable 07/25/18 09:30 Not Reportable 07/25/18 09:30 Not Reportable 07/25/18 09:30 Not Reportable 07/25/18 09:30 Plt Morphology Comment Not Reportable 07/25/18 09:30 RBC Morphology Not Reportable 07/25/18 09:30 Dimorphic RBCs Not Reportable 07/25/18 09:30 Few 07/25/18 09:30 Not Reportable 07/25/18 09:30 Not Reportable 07/25/18 09:30 1+ 07/25/18 09:30 Not Reportable 07/25/18 09:30 Few 07/25/18 09:30 Not Reportable 07/25/18 09:30 Not Reportable 07/25/18 09:30 Not Reportable 07/25/18 09:30 Rare 07/25/18 09:30 Not Reportable 07/25/18 09:30 Not Reportable 07/25/18 09:30 Not Reportable 07/25/18 09:30 Not Reportable 07/25/18 09:30 Not Reportable 07/25/18 09:30 Not Reportable 07/25/18 09:30 Not Reportable 07/25/18 09:30 Not Reportable 07/25/18 09:30 Not Reportable 07/25/18 09:30 Acanthocytes (Spur) Not Reportable 07/25/18 09:30 Rouleaux Not Reportable 07/25/18 09:30 Not Reportable 07/25/18 09:30 Not Reportable 07/25/18 09:30 Not Reportable 07/25/18 09:30 Not Reportable 07/25/18 09:30 Hem Pathologist Commnt No 07/25/18 09:30 1298.70 ng/mlDDU (0-234) H 07/11/18 15:04 POC ABG pH 7.435 (7.35-7.45) 07/29/18 04:28 POC ABG pCO2 55.1 (35-45) H 07/29/18 04:28 POC ABG pO2 76 (80-105) L 07/29/18 04:28 POC ABG HCO3 37.0 (22-26 mml/L) 07/29/18 04:28 POC ABG Total CO2 39 (23-27mmol/L) 07/29/18 04:28 POC ABG O2 Sat 95 07/29/18 04:28 POC ABG Base Excess 13 ((-2) - (+3)mmol/L) 07/29/18 04:28 50 % 07/29/18 04:28 Sodium 136 mmol/L (137-145) L 07/28/18 05:20 Potassium 4.5 mmol/L (3.6-5.0) 07/28/18 05:20 Chloride 89.9 mmol/L (98-107) L 07/28/18 05:20 Carbon Dioxide 38 mmol/L (22-30) H 07/28/18 05:20 13 mmol/L 07/28/18 05:20 BUN 15 mg/dL (9-20) 07/28/18 05:20 0.4 mg/dL (0.8-1.5) L 07/28/18 05:20 Estimated GFR > 60 ml/min 07/28/18 05:20 38 % 07/28/18 05:20 Glucose 81 mg/dL (75-100) 07/28/18 05:20 POC Glucose 104 (70-105) 07/30/18 15:19 Lactic Acid 1.80 mmol/L (0.7-2.0) 07/11/18 21:01 Calcium 8.1 mg/dL (8.4-10.2) L 07/28/18 05:20 0.20 mg/dL (0.1-1.2) 07/28/18 05:20 AST 104 units/L (5-40) H 07/28/18 05:20 ALT 113 units/L (7-56) H 07/28/18 05:20 89 units/L (35-129) 07/28/18 05:20 731 units/L (91-180) H 07/12/18 19:29 < 0.010 ng/mL (0.00-0.029) 07/11/18 15:04 2.70 mg/dL (0.00-1.30) H 07/15/18 14:09 NT-Pro-B Natriuret Pep 249.7 pg/mL (0-450) 07/11/18 15:04 6.2 g/dL (6.3-8.2) L 07/28/18 05:20 2.5 g/dL (3.9-5) L 07/28/18 05:20 0.7 % 07/28/18 05:20 Triglycerides 209 mg/dL (2-149) H 07/28/18 05:20 Yellow (Yellow) 07/15/18 14:14 Clear (Clear) 07/15/18 14:14 6.0 (5.0-7.0) 07/15/18 14:14 Ur Specific [place] 1.015 (1.003-1.030) 07/15/18 14:14 30 mg/dl mg/dL (Negative) 07/15/18 14:14 Neg mg/dL (Negative) 07/15/18 14:14 Neg mg/dL (Negative) 07/15/18 14:14 Neg (Negative) 07/15/18 14:14 Neg (Negative) 07/15/18 14:14 Neg (Negative) 07/15/18 14:14 < 2.0 mg/dL (<2.0) 07/15/18 14:14 Ur Leukocyte Esterase Neg (Negative) 07/15/18 14:14 2.0 /HPF (0.0-6.0) 07/15/18 14:14 6.0 /HPF (0.0-6.0) 07/15/18 14:14 21 mmol/L 07/19/18 14:27 Lymph Enumerat CD4/CD8 0.04 (0.86-5.00) L 07/12/18 19:29 % CD3 Cells 88 % (57-85) H 07/12/18 19:29 194 cells/uL (840-3060) L 07/12/18 19:29 % CD4 Cells 3 % (30-61) L 07/12/18 19:29 7 cells/uL (490-1740) L 07/12/18 19:29 % CD8 Cells 75 % (12-42) H 07/12/18 19:29 177 cells/uL (180-1170) L 07/12/18 19:29 % CD19 Cells 4 % (6-29) L 05/02/19 19:29 9 cells/uL (110-660) L 07/12/18 19:29 RPR Nonreactive (Nonreactive) 07/12/18 23:38 CMV DNA PCR log copyman/mL See scanned result 07/15/18 14:09 Hepatitis A IgM Ab Non-reactive (NonReactive) 07/12/18 23:38 Hep Bs Antigen Non-reactive (Negative) 07/12/18 23:38 Hep B Core IgM Ab Non-reactive (NonReactive) 07/12/18 23:38 Non-reactive (NonReactive) 07/12/18 23:38 HIV-1 RNA PCR copies/ml 038919 Copies/mL H 07/12/18 19:29 5.72 Log cps/mL H 07/12/18 19:29 Flexitest 1 H 07/16/18 07:21 Blood Type O POSITIVE 07/24/18 07:50 Antibody Screen Positive 07/24/18 07:50 Prewarmed Antibody Srcn Positive 07/18/18 03:10 Antibody Identification Anti-Adrianna 07/24/18 07:50 Direct Antiglob Test Negative 07/24/18 07:50 NIKUNJ, Poly Interpret Negative 07/24/18 07:50 Crossmatch See Detail 07/24/18 07:50 Active Medications - Current Medications Current Medications: Generic Name Dose Route Start Last Admin Trade Name Freq PRN Reason Stop Dose Admin Acetaminophen 650 mg 07/12/18 18:07 07/21/18 19:30 Tylenol FEEDTUBE 650 mg Q6H PRN Administration Non Cardiac Pain or Temp>100.5 Albuterol 2.5 mg 07/11/18 17:16 07/26/18 12:07 Proventil IH 2.5 mg Q3HRT PRN Administration Shortness Of Breath Lipase/Protease/Amylase 1 each 07/13/18 12:[address] 10,500 Unit FEEDTUBE PRN PRN For Clogged Feeding Tube Azithromycin 1,200 mg 07/26/18 10:00 07/26/18 09:55 Zithromax PO 1,200 mg Th HE Administration Docusate Sodium 100 mg 07/15/18 12:00 07/31/18 22:00 Colace PO 100 mg BID HE Administration Doxazosin Mesylate 2 mg 07/18/18 12:00 07/31/18 10:22 Cardura PO 2 mg QDAY HE Administration Famotidine 20 mg 07/16/18 22:00 07/31/18 21:45 Pepcid PO 20 mg BID HE Administration Fentanyl 50 mcg 07/12/18 00:26 07/20/18 09:02 Sublimaze IV 50 mcg Q10MIN PRN Administration ANALGESIA Heparin Sodium (Porcine) 5,000 unit 07/20/18 10:00 07/31/18 21:50 Heparin SUB-Q 5,000 unit BID [facility] Administration Hydrophilic Ointment 1 applic 07/12/18 13:30 Vaseline Lip Therapy TP Q2HR PRN Dry Lips Fentanyl Citrate 2,000 mcg in 100 mls @ 3.065 mls/hr 07/12/18 01:00 08/01/18 07:33 Fentanyl Drip Premix IV 4 mcg/kg/hr TITR HE 12.26 mls/hr Administration Protocol 1 MCG/KG/HR Propofol 1,000 mg in 100 mls @ 1.839 mls/hr 07/12/18 01:00 07/31/18 18:50 Diprivan 10 Mg/Ml IV 10 mcg/kg/min TITR HE 3.678 mls/hr Administration Protocol 5 MCG/KG/MIN Midazolam HCl 100 mg/ Sodium 100 mls @ 2 mls/hr 07/18/18 13:30 08/01/18 03:43 Chloride IV 3 mg/hr TITR HE 3 mls/hr Administration Protocol 2 MG/HR Midazolam HCl 2 mg 07/16/18 13:06 07/26/18 17:42 Versed IV 2 mg Q2H PRN Administration AGITATION Midazolam HCl 2 mg 07/18/18 12:44 Versed IV Q10MIN PRN Sedation Multi-Ingred Cream/Lotion/Oil/Oint 1 applic 07/12/18 13:30 Artificial Tears Ophth Oint OU Q4HR PRN Dry Eye(s) Quetiapine Fumarate 300 mg 07/27/18 22:00 07/31/18 22:00 Seroquel PO 300 mg BID HE Administration Senna 17.2 mg 07/26/18 22:00 07/31/18 23:52 Senokot PO 17.2 mg QHS HE Administration Simple Syrup 15 ml 07/13/18 12:30 Simple Syrup FEEDTUBE PRN PRN Hypoglycemia Simple Syrup 30 ml 07/13/18 12:30 Simple Syrup FEEDTUBE PRN PRN Hypoglycemia Sodium Bicarbonate 325 mg 07/13/18 12:30 Sodium Bicarbonate FEEDTUBE PRN PRN For Clogged Feeding Tube Sodium Chloride 10 ml 07/11/18 22:00 07/31/18 23:52 Sodium Chloride Flush Syringe 10 Ml IV 10 ml BID HE Administration Sodium Chloride 10 ml 07/11/18 17:16 07/18/18 09:00 Sodium Chloride Flush Syringe 10 Ml IV 10 ml PRN PRN Administration LINE FLUSH Trimethoprim/Sulfamethoxazole 160 mg 08/01/18 10:00 Bactrim 200-40 Mg/5 Ml PO DAILY HE Nutrition/Malnutrition Assess - Dietary Evaluation Nutrition/Malnutrition Findings: Nutrition Notes Start: 07/12/18 09:38 Freq: Status: Active Protocol: Document 07/27/18 14:44 RM (Rec: 07/27/18 14:48 RM [id number]) Nutrition Notes Initial or Follow up Reassessment Current Diagnosis Sepsis,Respiratory Failure Other Pertinent Diagnosis Bilat pneu, HIV/AIDS, Diarrhea Current Diet Nepro at 45 ml/hr Labs/Tests K 5.1 Pertinent Medications REviewed Height 5 ft 11 in Weight 65 kg [place] Body Weight (kg) 78.18 BMI 20.0 Subjective/Other Information Observed Nepro infusing at 45 ml/hr. Per nurse pt is tolerating TF. Percent of energy/protein needs met: 100%/100% Burn Absent Trauma Absent #2 Nutrition Diagnosis Inadequate oral intake Diagnosis Progress(for reassessment Continues documentation) #1 Nutrition Diagnosis Malnutrition Diagnosis Progress(for reassessment Continues documentation) Is patient on ventilator? Yes Is Patient Ambulatory and/or Out of Bed No REE-([place] Jeor-confined to bed) 1925.232 Calculation Used for Recommendations [facility] Additional Notes Pro needs 1.2-2g/k-130g/ day Fluid needs 1ml/kcal Nutrition Intervention Change Diet Order: TF Nutrition Support: Continue Nepro at 45ml/hr. Flush with 150ml q4h Kcal 1,944 Protein (gm) 87 Fluid (mL) 785 Goal #1 TF tolerance Goal #2 TF to continue to meet 90-100% energy and pro needs Goal #3 Wt maintenance and/or gain Anticipated Discharge Needs: Unable to determine at this time Follow-Up By: 08/01/18 Additional Comments Follow for TF tolerance, K lab
[2018-08-01] MEDS: VALGANCICLOVIR FEEDTUBE SCH ×3 (09:50→22:00)
[2018-08-01] MEDS: BACTRIM 200-40 MG/5 ML PO SCH (09:51)
[2018-08-01] MEDS: CARDURA PO SCH (09:51)
[2018-08-01] MEDS: COLACE PO SCH ×2 (10:00→22:00)
[2018-08-01] MEDS: HEPARIN SUB-Q SCH ×2 (10:07→22:00)
--- NOTE | 2018-08-01 11:14 | Progress Note ---
Assessment and Plan Cultures: Blood culture 07/11/2018 no growth today. Cryptococcal antigen : negative MRSA PCR: positive Blood culture 07/15/2018: in progress Urine culture 07/15/2018: no growth in 24 hours Sputum culture 07/15/18: MRSA, Jannette CMV PCR 07/15/2018 33,392 copies Assessment: 37 y/o male currently in assisted with history of HIV infection of unknown duration, noncompliant with antiretroviral medication, severe malnutrition; admitted on 07/11/2018, brought by law enforcement, due to 2-week history of short ness of breath, generalized weakness and productive cough: 1) Sepsis with new septic shock: off pressors. no fever. Etiology most likely pneumonia. CRP 2.7. Procalcitonin 3.09. 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 CMV +/- MRSA. Sputum culture 07/11/2018 no growth today. Chest CT showed bilateral patchy and somewhat confluent alveolar infiltrates and interstitial infiltrates. No effusions. Mild cardiomegaly. Sputum culture 07/15 grew MRSA and Jannette. Completed linezolid x 10 days until 07/23. 3) HIV, presumed AIDS: Patient has not taken his HIV medication for at least 6 months prior due to his incarceration. On admission he reported 40lbs unintentional weight loss for 2 months and intermittent loose stools over the past 2 weeks. VL 523,000/ CD4=7. Pneumocytosis Jirovecii positive. RPR nonreactive. Hepatitis panel negative. 4) Diarrhea: ? possible opportunistic infection. resolved 5) Acute respiratory failure: not better, from pneumonia. 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 - continue valganciclovir 900 mg PO BID D9 to cover CMV viremia, re-check CMV DNA PCR on 08/06 -continue bactrim DS 1 tab q day for PJP prophylaxis - contact isolation for MRSA - HIV genotype pending - continue azithromycin 1200 mg PO qweek for MAC prophylaxis [facility] M: [phone] O:[phone] Subjective Date of service: 08/01/18 Principal diagnosis: Acute hypoxemic resp failure; Bilateral pneumonia (PJP); HIV/AIDS Objective - Constitutional Vitals: Vital Signs Temp Pulse Resp BP Pulse Ox 98.0 F 103 H 27 H 111/68 92 08/01/18 04:00 08/01/18 09:51 08/01/18 08:00 08/01/18 09:51 08/01/18 08:05 Temperature -Last 24 Hours Temperature 98.0 F Temperature 98.1 F Temperature 97.9 F Temperature 97.7 F Temperature 97.2 F - Labs CBC & Chem 7: 07/28/18 05:20 07/28/18 05:20
--- NOTE | 2018-08-01 11:44 | Progress Note ---
Assessment and Plan Acute hypoxemic respiratory failure, on mechanical ventilatory support. Bilateral pneumonia, high suspicion for Pneumocystis jiroveci pneumonia. MRSA Pneumonia Human immunodeficiency virus/acquired immunodeficiency syndrome,noncompliant with therapy. Hyponatremia. Severe protein calorie malnutrition. Elevated D-dimer. Tobacco use disorder. - continue to keep Peep to 8 cm H2O (we will maintain there during weaning period to prevent quick de-recruitment as has decompensated rapidly during this hospitalization with rapid Peep weaning) - hold weaning till after tracheostomy placement (today tentatively) - consent placed in chart (2 physician consent as no next of kin available) - continue to wean supplemental oxygen to keep O2 sats 88-90% acutely - continue Seroquel bid dosing to spare IV sedatives - PJP stain positive - continue current LTVV /4-6mls/kg IBW - continue ARDS ventilatory strategies with low TV (will transition to conventional ventilatory modes as ARDS resolves) - continue daily SAT's & SBT assessment as tolerated - continue bronchodilators with pulmonary hygiene per RT - prn ABG's at this point - continue GI & VTE prophylaxis - Lung protective strategies - prn CXR's at this point - VAP bundle addressed - continue Anti-infectives and ART per ID rec's - Chambers catheter placed for acute urinary retention. - Continue full MVS - Monitor renal indices closely - Avoid nephrotoxic agents, adjust all medications for CrCL - Strict intake and output monitoring - Tube feedings as tolerated - Accuchecks with glycemic control. Target glucose of 140-180 mg/dL - Maintenance of sleep -wake cycle - Mobility as tolerated by hemodynamics - Influenza and pneumonia vaccination per protocol ..care plan discussed at length with RN/RT at the bedside ..discussed in ICU-IDT rounds PROGNOSIS: GUARDED CONDITION: CRITICAL CODE STATUS: FULL CODE The high probability of a clinically significant, sudden or life-threatening deterioration of the [respiratory, neurology, renal] system(s) required my full and direct attention, intervention and personal management. The aggregate critical care time was [34] minutes without overlap. Time includes spent on; [x] Data Review and interpretation [x] Patient assessment and monitoring of vital signs [x] Documentation [x] Medication orders and management Subjective Date of service: 08/01/18 Principal diagnosis: Acute hypoxemic resp failure; Bilateral pneumonia (PJP); HIV/AIDS Interval history: Patient is seen today for: Acute hypoxemic respiratory failure, on mechanical ventilatory support; Bilateral pneumonia, high suspicion for Pneumocystis jiroveci pneumonia; Human immunodeficiency virus/acquired immunodeficiency syndrome,noncompliant with therapy; Hyponatremia; Severe protein calorie malnutrition. Seen and examined at bedside; 24-hour events reviewed; nursing and respiratory care staff consulted; no adverse overnight events reported to me; remains on MVS; for tracheostomy today; no emesis or overt aspiration; no gross bleeding Objective Vital Signs - 12hr 08/01/18 08/01/18 08/01/18 00:00 00:37 01:00 Temperature 98.1 F Pulse Rate 115 H 105 H 102 H Respiratory 20 10 L Rate Blood Pressure 110/72 115/70 97/65 O2 Sat by Pulse 97 96 96 Oximetry 08/01/18 08/01/18 08/01/18 02:00 03:00 04:00 Temperature 98.0 F Pulse Rate 104 H 101 H 92 H Respiratory 19 22 11 L Rate Blood Pressure 106/67 105/75 111/68 O2 Sat by Pulse 93 99 96 Oximetry 08/01/18 08/01/18 08/01/18 04:58 05:00 06:00 Temperature Pulse Rate 104 H 96 H 92 H Respiratory 16 14 Rate Blood Pressure 109/75 109/75 111/70 O2 Sat by Pulse 99 96 94 Oximetry 08/01/18 08/01/18 08/01/18 07:00 08:00 08:05 Temperature Pulse Rate 93 H 102 H 112 H Respiratory 9 L 27 H Rate Blood Pressure 111/66 125/85 118/91 O2 Sat by Pulse 93 93 92 Oximetry 08/01/18 09:51 Temperature Pulse Rate 103 H Respiratory Rate Blood Pressure 111/68 O2 Sat by Pulse Oximetry Constitutional: no acute distress, other (young AAM; normocephalic and atraumatic) Eyes: non-icteric ENT: oropharynx moist, other (ETT 23 cm SHONA) Neck: supple, no lymphadenopathy, no JVD, other (no thyromegaly) Effort: mildly labored Ascultation: Bilateral: diminished breath sounds, rales Percussion: Bilateral: not dull Cardiovascular: regular rate and rhythm, other (S1,S2, no murmurs, gallops or rubs) Gastrointestinal: normoactive bowel sounds, soft, non-tender, non-distended Integumentary: normal Extremities: no cyanosis, no edema, pulses normal, no ischemia or petechiae Neurologic: normal mental status, non-focal exam, pupils equal and round, CN II- XII normal, motor strength normal and Psychiatric: other (sedated) CBC and BMP: 08/07/18 07:57 08/08/18 04:38 ABG, PT/INR, D-dimer: ABG POC ABG pH 7.435 (7.35-7.45) 07/29/18 04:28 POC ABG pCO2 55.1 (35-45) H 07/29/18 04:28 POC ABG pO2 76 (80-105) L 07/29/18 04:28 POC ABG HCO3 37.0 (22-26 mml/L) 07/29/18 04:28 POC ABG Total CO2 39 (23-27mmol/L) 07/29/18 04:28 POC ABG O2 Sat 95 07/29/18 04:28 PT/INR, D-dimer 1298.70 ng/mlDDU (0-234) H 07/11/18 15:04 Abnormal lab findings: Abnormal Labs 07/11/18 07/11/18 07/11/18 14:06 14:06 15:04 RBC 3.30 L Hgb 9.6 L Hct 28.7 L MCHC RDW Plt Count Lymph % (Auto) Lymph # Seg Neutrophils % Abs Lymphs (Manual) D-Dimer 1298.70 H POC ABG pH POC ABG pCO2 POC ABG pO2 Sodium 132 L Potassium Chloride Carbon Dioxide Creatinine 0.6 L Glucose 103 H POC Glucose Calcium 7.3 L AST ALT Lactate Dehydrogenase C-Reactive Protein Total Protein Albumin 2.1 L Triglycerides Lymph Enumerat CD4/CD8 % CD3 Cells Absolute CD3 Count % CD4 Cells Absolute CD4 Count % CD8 Cells Absolute CD8 Count % CD19 Cells Absolute CD19 Count HIV-1 RNA PCR copies/ml HIV-1 RNA (PCR) log Miscellaneous Test Crossmatch 07/11/18 07/11/18 07/12/18 17:36 22:15 00:25 RBC Hgb Hct MCHC RDW Plt Count Lymph % (Auto) Lymph # Seg Neutrophils % Abs Lymphs (Manual) D-Dimer POC ABG pH 7.289 L POC ABG pCO2 POC ABG pO2 66 L Sodium Potassium Chloride Carbon Dioxide Creatinine Glucose POC Glucose Calcium AST ALT Lactate Dehydrogenase 591 H C-Reactive Protein Total Protein Albumin Triglycerides Lymph Enumerat CD4/CD8 % CD3 Cells Absolute CD3 Count % CD4 Cells Absolute CD4 Count % CD8 Cells Absolute CD8 Count % CD19 Cells Absolute CD19 Count HIV-1 RNA PCR copies/ml HIV-1 RNA (PCR) log Miscellaneous Test see below H Crossmatch 07/12/18 07/12/18 07/12/18 00:41 05:37 19:29 RBC Hgb Hct MCHC RDW Plt Count Lymph % (Auto) Lymph # Seg Neutrophils % Abs Lymphs (Manual) D-Dimer POC ABG pH 7.302 L 7.275 L POC ABG pCO2 47.1 H POC ABG pO2 Sodium Potassium Chloride Carbon Dioxide Creatinine Glucose POC Glucose Calcium AST ALT Lactate Dehydrogenase 731 H C-Reactive Protein Total Protein Albumin Triglycerides Lymph Enumerat CD4/CD8 % CD3 Cells Absolute CD3 Count % CD4 Cells Absolute CD4 Count % CD8 Cells Absolute CD8 Count % CD19 Cells Absolute CD19 Count HIV-1 RNA PCR copies/ml HIV-1 RNA (PCR) log Miscellaneous Test Crossmatch 07/12/18 07/12/18 07/13/18 19:29 19:29 04:03 RBC Hgb Hct MCHC RDW Plt Count Lymph % (Auto) Lymph # Seg Neutrophils % Abs Lymphs (Manual) 220 L D-Dimer POC ABG pH 7.254 L POC ABG pCO2 49.2 H POC ABG pO2 Sodium Potassium Chloride Carbon Dioxide Creatinine Glucose POC Glucose Calcium AST ALT Lactate Dehydrogenase C-Reactive Protein Total Protein Albumin Triglycerides Lymph Enumerat CD4/CD8 0.04 L % CD3 Cells 88 H Absolute CD3 Count 194 L % CD4 Cells 3 L Absolute CD4 Count 7 L % CD8 Cells 75 H Absolute CD8 Count 177 L % CD19 Cells 4 L Absolute CD19 Count 9 L HIV-1 RNA PCR copies/ml 030689 H HIV-1 RNA (PCR) log 5.72 H Miscellaneous Test Crossmatch 07/13/18 07/13/18 07/13/18 05:46 12:23 18:31 RBC Hgb Hct MCHC RDW Plt Count Lymph % (Auto) Lymph # Seg Neutrophils % Abs Lymphs (Manual) D-Dimer POC ABG pH POC ABG pCO2 POC ABG pO2 Sodium Potassium Chloride Carbon Dioxide Creatinine Glucose POC Glucose 68 L 106 H 112 H Calcium AST ALT Lactate Dehydrogenase C-Reactive Protein Total Protein Albumin Triglycerides Lymph Enumerat CD4/CD8 % CD3 Cells Absolute CD3 Count % CD4 Cells Absolute CD4 Count % CD8 Cells Absolute CD8 Count % CD19 Cells Absolute CD19 Count HIV-1 RNA PCR copies/ml HIV-1 RNA (PCR) log Miscellaneous Test Crossmatch 07/14/18 07/14/18 07/14/18 04:19 05:36 05:36 RBC 2.99 L Hgb 8.8 L Hct 25.7 L MCHC RDW 15.5 H Plt Count Lymph % (Auto) Lymph # Seg Neutrophils % Abs Lymphs (Manual) D-Dimer POC ABG pH 7.337 L POC ABG pCO2 POC ABG pO2 Sodium 135 L Potassium Chloride Carbon Dioxide 21 L Creatinine 0.7 L Glucose 123 H POC Glucose Calcium 8.2 L AST ALT Lactate Dehydrogenase C-Reactive Protein Total Protein Albumin Triglycerides Lymph Enumerat CD4/CD8 % CD3 Cells Absolute CD3 Count % CD4 Cells Absolute CD4 Count % CD8 Cells Absolute CD8 Count % CD19 Cells Absolute CD19 Count HIV-1 RNA PCR copies/ml HIV-1 RNA (PCR) log Miscellaneous Test Crossmatch 07/14/18 07/14/18 07/14/18 12:14 14:33 17:18 RBC Hgb Hct MCHC RDW Plt Count Lymph % (Auto) Lymph # Seg Neutrophils % Abs Lymphs (Manual) D-Dimer POC ABG pH 7.325 L POC ABG pCO2 POC ABG pO2 75 L Sodium Potassium Chloride Carbon Dioxide Creatinine Glucose POC Glucose 174 H 114 H Calcium AST ALT Lactate Dehydrogenase C-Reactive Protein Total Protein Albumin Triglycerides Lymph Enumerat CD4/CD8 % CD3 Cells Absolute CD3 Count % CD4 Cells Absolute CD4 Count % CD8 Cells Absolute CD8 Count % CD19 Cells Absolute CD19 Count HIV-1 RNA PCR copies/ml HIV-1 RNA (PCR) log Miscellaneous Test Crossmatch 07/15/18 07/15/18 07/15/18 00:17 12:29 12:29 RBC 2.64 L Hgb 7.5 L Hct 22.9 L MCHC RDW 15.4 H Plt Count Lymph % (Auto) 7.0 L Lymph # 0.4 L Seg Neutrophils % 89.6 H Abs Lymphs (Manual) D-Dimer POC ABG pH POC ABG pCO2 POC ABG pO2 Sodium Potassium Chloride Carbon Dioxide Creatinine 0.6 L Glucose 124 H POC Glucose 113 H Calcium 7.3 L AST ALT Lactate Dehydrogenase C-Reactive Protein Total Protein Albumin Triglycerides Lymph Enumerat CD4/CD8 % CD3 Cells Absolute CD3 Count % CD4 Cells Absolute CD4 Count % CD8 Cells Absolute CD8 Count % CD19 Cells Absolute CD19 Count HIV-1 RNA PCR copies/ml HIV-1 RNA (PCR) log Miscellaneous Test Crossmatch 07/15/18 07/16/18 07/16/18 14:09 04:46 07:21 RBC Hgb Hct MCHC RDW Plt Count Lymph % (Auto) Lymph # Seg Neutrophils % Abs Lymphs (Manual) D-Dimer POC ABG pH 7.282 L POC ABG pCO2 52.6 H POC ABG pO2 63 L Sodium Potassium Chloride Carbon Dioxide Creatinine Glucose POC Glucose Calcium AST ALT Lactate Dehydrogenase C-Reactive Protein 2.70 H Total Protein Albumin Triglycerides Lymph Enumerat CD4/CD8 % CD3 Cells Absolute CD3 Count % CD4 Cells Absolute CD4 Count % CD8 Cells Absolute CD8 Count % CD19 Cells Absolute CD19 Count HIV-1 RNA PCR copies/ml HIV-1 RNA (PCR) log Miscellaneous Test Flexitest 1 H Crossmatch 07/16/18 07/16/18 07/16/18 07:21 07:21 16:16 RBC 2.48 L Hgb 7.2 L Hct 21.5 L MCHC RDW 15.7 H Plt Count Lymph % (Auto) Lymph # Seg Neutrophils % Abs Lymphs (Manual) D-Dimer POC ABG pH 7.251 L POC ABG pCO2 62.2 H POC ABG pO2 Sodium 136 L Potassium Chloride Carbon Dioxide Creatinine 0.6 L Glucose 118 H POC Glucose Calcium 7.5 L AST ALT Lactate Dehydrogenase C-Reactive Protein Total Protein Albumin Triglycerides Lymph Enumerat CD4/CD8 % CD3 Cells Absolute CD3 Count % CD4 Cells Absolute CD4 Count % CD8 Cells Absolute CD8 Count % CD19 Cells Absolute CD19 Count HIV-1 RNA PCR copies/ml HIV-1 RNA (PCR) log Miscellaneous Test Crossmatch 07/17/18 07/18/18 07/18/18 04:01 01:10 03:10 RBC 2.20 L Hgb 6.5 L Hct 19.2 L* MCHC RDW 16.0 H Plt Count Lymph % (Auto) 7.2 L Lymph # 0.5 L Seg Neutrophils % 89.9 H Abs Lymphs (Manual) D-Dimer POC ABG pH 7.245 L POC ABG pCO2 63.8 H POC ABG pO2 75 L Sodium Potassium Chloride Carbon Dioxide Creatinine Glucose POC Glucose Calcium AST ALT Lactate Dehydrogenase C-Reactive Protein Total Protein Albumin Triglycerides Lymph Enumerat CD4/CD8 % CD3 Cells Absolute CD3 Count % CD4 Cells Absolute CD4 Count % CD8 Cells Absolute CD8 Count % CD19 Cells Absolute CD19 Count HIV-1 RNA PCR copies/ml HIV-1 RNA (PCR) log Miscellaneous Test Crossmatch See Detail 07/18/18 07/18/18 07/18/18 04:54 05:02 12:59 RBC Hgb Hct MCHC RDW Plt Count Lymph % (Auto) Lymph # Seg Neutrophils % Abs Lymphs (Manual) D-Dimer POC ABG pH 7.615 H POC ABG pCO2 32.6 L 48.8 H POC ABG pO2 79 L 118 H Sodium Potassium Chloride Carbon Dioxide Creatinine Glucose POC Glucose 164 H Calcium AST ALT Lactate Dehydrogenase C-Reactive Protein Total Protein Albumin Triglycerides Lymph Enumerat CD4/CD8 % CD3 Cells Absolute CD3 Count % CD4 Cells Absolute CD4 Count % CD8 Cells Absolute CD8 Count % CD19 Cells Absolute CD19 Count HIV-1 RNA PCR copies/ml HIV-1 RNA (PCR) log Miscellaneous Test Crossmatch 07/18/18 07/18/18 07/19/18 18:25 20:39 03:53 RBC Hgb Hct MCHC RDW Plt Count Lymph % (Auto) Lymph # Seg Neutrophils % Abs Lymphs (Manual) D-Dimer POC ABG pH 7.339 L POC ABG pCO2 59.9 H 65.0 H POC ABG pO2 69 L Sodium Potassium Chloride Carbon Dioxide Creatinine Glucose POC Glucose 155 H Calcium AST ALT Lactate Dehydrogenase C-Reactive Protein Total Protein Albumin Triglycerides Lymph Enumerat CD4/CD8 % CD3 Cells Absolute CD3 Count % CD4 Cells Absolute CD4 Count % CD8 Cells Absolute CD8 Count % CD19 Cells Absolute CD19 Count HIV-1 RNA PCR copies/ml HIV-1 RNA (PCR) log Miscellaneous Test Crossmatch 07/19/18 07/19/18 07/19/18 08:10 08:10 10:52 RBC 2.51 L Hgb 7.4 L Hct 22.0 L MCHC RDW 15.5 H Plt Count Lymph % (Auto) Lymph # Seg Neutrophils % Abs Lymphs (Manual) D-Dimer POC ABG pH POC ABG pCO2 POC ABG pO2 Sodium 130 L Potassium Chloride 89.0 L Carbon Dioxide 33 H Creatinine 0.4 L Glucose 150 H POC Glucose 173 H Calcium 7.5 L AST ALT Lactate Dehydrogenase C-Reactive Protein Total Protein Albumin Triglycerides Lymph Enumerat CD4/CD8 % CD3 Cells Absolute CD3 Count % CD4 Cells Absolute CD4 Count % CD8 Cells Absolute CD8 Count % CD19 Cells Absolute CD19 Count HIV-1 RNA PCR copies/ml HIV-1 RNA (PCR) log Miscellaneous Test Crossmatch 07/19/18 07/19/18 07/20/18 17:06 23:47 04:37 RBC Hgb Hct MCHC RDW Plt Count Lymph % (Auto) Lymph # Seg Neutrophils % Abs Lymphs (Manual) D-Dimer POC ABG pH POC ABG pCO2 58.5 H POC ABG pO2 67 L Sodium Potassium Chloride Carbon Dioxide Creatinine Glucose POC Glucose 117 H 114 H Calcium AST ALT Lactate Dehydrogenase C-Reactive Protein Total Protein Albumin Triglycerides Lymph Enumerat CD4/CD8 % CD3 Cells Absolute CD3 Count % CD4 Cells Absolute CD4 Count % CD8 Cells Absolute CD8 Count % CD19 Cells Absolute CD19 Count HIV-1 RNA PCR copies/ml HIV-1 RNA (PCR) log Miscellaneous Test Crossmatch 07/20/18 07/20/18 07/21/18 06:20 06:20 04:18 RBC 2.69 L Hgb 7.8 L Hct 23.6 L MCHC RDW 15.5 H Plt Count Lymph % (Auto) Lymph # Seg Neutrophils % Abs Lymphs (Manual) D-Dimer POC ABG pH 7.456 H POC ABG pCO2 60.4 H POC ABG pO2 64 L Sodium 134 L Potassium Chloride 89.2 L Carbon Dioxide 38 H Creatinine 0.7 L D Glucose 120 H POC Glucose Calcium 7.6 L AST ALT Lactate Dehydrogenase C-Reactive Protein Total Protein Albumin Triglycerides Lymph Enumerat CD4/CD8 % CD3 Cells Absolute CD3 Count % CD4 Cells Absolute CD4 Count % CD8 Cells Absolute CD8 Count % CD19 Cells Absolute CD19 Count HIV-1 RNA PCR copies/ml HIV-1 RNA (PCR) log Miscellaneous Test Crossmatch 07/21/18 07/21/18 07/22/18 04:35 04:35 04:16 RBC 2.62 L 2.37 L Hgb 7.7 L 7.0 L Hct 23.1 L 21.1 L MCHC RDW 15.4 H Plt Count Lymph % (Auto) Lymph # Seg Neutrophils % Abs Lymphs (Manual) D-Dimer POC ABG pH POC ABG pCO2 POC ABG pO2 Sodium 129 L Potassium 5.3 H Chloride 85.3 L Carbon Dioxide 38 H Creatinine 0.4 L Glucose 108 H POC Glucose Calcium 8.0 L AST ALT Lactate Dehydrogenase C-Reactive Protein Total Protein Albumin Triglycerides Lymph Enumerat CD4/CD8 % CD3 Cells Absolute CD3 Count % CD4 Cells Absolute CD4 Count % CD8 Cells Absolute CD8 Count % CD19 Cells Absolute CD19 Count HIV-1 RNA PCR copies/ml HIV-1 RNA (PCR) log Miscellaneous Test Crossmatch 07/22/18 07/23/18 07/23/18 04:16 03:25 12:45 RBC Hgb Hct MCHC RDW Plt Count Lymph % (Auto) Lymph # Seg Neutrophils % Abs Lymphs (Manual) D-Dimer POC ABG pH POC ABG pCO2 69.4 H POC ABG pO2 Sodium 132 L 125 L D Potassium 5.4 H 5.3 H Chloride 87.4 L 80.3 L Carbon Dioxide 38 H 38 H Creatinine 0.4 L 0.3 L Glucose 117 H 124 H POC Glucose Calcium 7.5 L 7.4 L AST ALT Lactate Dehydrogenase C-Reactive Protein Total Protein Albumin Triglycerides Lymph Enumerat CD4/CD8 % CD3 Cells Absolute CD3 Count % CD4 Cells Absolute CD4 Count % CD8 Cells Absolute CD8 Count % CD19 Cells Absolute CD19 Count HIV-1 RNA PCR copies/ml HIV-1 RNA (PCR) log Miscellaneous Test Crossmatch 07/23/18 07/24/18 07/24/18 23:52 04:30 04:30 RBC 2.12 L Hgb 6.3 L Hct 18.9 L* MCHC RDW Plt Count Lymph % (Auto) Lymph # Seg Neutrophils % Abs Lymphs (Manual) D-Dimer POC ABG pH POC ABG pCO2 POC ABG pO2 Sodium 127 L Potassium 5.2 H Chloride 83.9 L Carbon Dioxide 39 H Creatinine 0.3 L Glucose POC Glucose 118 H Calcium 7.5 L AST ALT Lactate Dehydrogenase C-Reactive Protein Total Protein Albumin Triglycerides Lymph Enumerat CD4/CD8 % CD3 Cells Absolute CD3 Count % CD4 Cells Absolute CD4 Count % CD8 Cells Absolute CD8 Count % CD19 Cells Absolute CD19 Count HIV-1 RNA PCR copies/ml HIV-1 RNA (PCR) log Miscellaneous Test Crossmatch 07/24/18 07/24/18 07/24/18 05:11 05:30 07:50 RBC Hgb Hct MCHC RDW Plt Count Lymph % (Auto) Lymph # Seg Neutrophils % Abs Lymphs (Manual) D-Dimer POC ABG pH 7.462 H POC ABG pCO2 58.7 H POC ABG pO2 79 L Sodium Potassium Chloride Carbon Dioxide Creatinine Glucose POC Glucose 145 H Calcium AST ALT Lactate Dehydrogenase C-Reactive Protein Total Protein Albumin Triglycerides Lymph Enumerat CD4/CD8 % CD3 Cells Absolute CD3 Count % CD4 Cells Absolute CD4 Count % CD8 Cells Absolute CD8 Count % CD19 Cells Absolute CD19 Count HIV-1 RNA PCR copies/ml HIV-1 RNA (PCR) log Miscellaneous Test Crossmatch See Detail 07/25/18 07/25/18 07/26/18 09:30 09:30 00:18 RBC 2.99 L Hgb 9.1 L Hct 27.0 L D MCHC RDW Plt Count Lymph % (Auto) Lymph # Seg Neutrophils % Abs Lymphs (Manual) D-Dimer POC ABG pH POC ABG pCO2 POC ABG pO2 Sodium 131 L 135 L Potassium 5.1 H 5.5 H Chloride 84.4 L 88.4 L Carbon Dioxide 39 H 38 H Creatinine 0.3 L 0.3 L Glucose 133 H POC Glucose Calcium 8.0 L AST ALT Lactate Dehydrogenase C-Reactive Protein Total Protein Albumin Triglycerides Lymph Enumerat CD4/CD8 % CD3 Cells Absolute CD3 Count % CD4 Cells Absolute CD4 Count % CD8 Cells Absolute CD8 Count % CD19 Cells Absolute CD19 Count HIV-1 RNA PCR copies/ml HIV-1 RNA (PCR) log Miscellaneous Test Crossmatch 07/26/18 07/26/18 07/26/18 04:07 05:50 05:50 RBC 3.01 L Hgb 9.4 L Hct 27.2 L MCHC 35 H RDW Plt Count Lymph % (Auto) 10.4 L Lymph # 0.9 L Seg Neutrophils % 84.2 H Abs Lymphs (Manual) D-Dimer POC ABG pH 7.456 H POC ABG pCO2 61.4 H POC ABG pO2 68 L Sodium 131 L Potassium 5.1 H Chloride 84.5 L Carbon Dioxide 39 H Creatinine 0.3 L Glucose POC Glucose Calcium AST 78 H ALT 71 H Lactate Dehydrogenase C-Reactive Protein Total Protein 6.0 L Albumin 2.5 L Triglycerides Lymph Enumerat CD4/CD8 % CD3 Cells Absolute CD3 Count % CD4 Cells Absolute CD4 Count % CD8 Cells Absolute CD8 Count % CD19 Cells Absolute CD19 Count HIV-1 RNA PCR copies/ml HIV-1 RNA (PCR) log Miscellaneous Test Crossmatch 07/26/18 07/27/18 07/28/18 14:56 14:26 05:20 RBC Hgb Hct MCHC RDW Plt Count Lymph % (Auto) Lymph # Seg Neutrophils % Abs Lymphs (Manual) D-Dimer POC ABG pH 7.472 H POC ABG pCO2 66.0 H 57.4 H POC ABG pO2 56 L 59 L Sodium Potassium Chloride Carbon Dioxide Creatinine Glucose POC Glucose Calcium AST ALT Lactate Dehydrogenase C-Reactive Protein Total Protein Albumin Triglycerides 209 H Lymph Enumerat CD4/CD8 % CD3 Cells Absolute CD3 Count % CD4 Cells Absolute CD4 Count % CD8 Cells Absolute CD8 Count % CD19 Cells Absolute CD19 Count HIV-1 RNA PCR copies/ml HIV-1 RNA (PCR) log Miscellaneous Test Crossmatch 07/28/18 07/28/18 07/28/18 05:20 05:20 06:08 RBC 3.21 L Hgb 10.0 L Hct 29.9 L MCHC RDW 15.4 H Plt Count 451 H Lymph % (Auto) Lymph # Seg Neutrophils % 81.6 H Abs Lymphs (Manual) D-Dimer POC ABG pH 7.328 L POC ABG pCO2 POC ABG pO2 70 L Sodium 136 L Potassium Chloride 89.9 L Carbon Dioxide 38 H Creatinine 0.4 L Glucose POC Glucose Calcium 8.1 L AST 104 H ALT 113 H Lactate Dehydrogenase C-Reactive Protein Total Protein 6.2 L Albumin 2.5 L Triglycerides Lymph Enumerat CD4/CD8 % CD3 Cells Absolute CD3 Count % CD4 Cells Absolute CD4 Count % CD8 Cells Absolute CD8 Count % CD19 Cells Absolute CD19 Count HIV-1 RNA PCR copies/ml HIV-1 RNA (PCR) log Miscellaneous Test Crossmatch 07/28/18 07/29/18 17:22 04:28 RBC Hgb Hct MCHC RDW Plt Count Lymph % (Auto) Lymph # Seg Neutrophils % Abs Lymphs (Manual) D-Dimer POC ABG pH POC ABG pCO2 65.7 H 55.1 H POC ABG pO2 113 H 76 L Sodium Potassium Chloride Carbon Dioxide Creatinine Glucose POC Glucose Calcium AST ALT Lactate Dehydrogenase C-Reactive Protein Total Protein Albumin Triglycerides Lymph Enumerat CD4/CD8 % CD3 Cells Absolute CD3 Count % CD4 Cells Absolute CD4 Count % CD8 Cells Absolute CD8 Count % CD19 Cells Absolute CD19 Count HIV-1 RNA PCR copies/ml HIV-1 RNA (PCR) log Miscellaneous Test Crossmatch Allied health notes reviewed: nursing
[2018-08-01] MEDS ORDERED: WATER FOR IRRIG STERILE IR ONE (12:52)
[2018-08-01] MEDS ORDERED: WATER FOR IRRIG STERILE ONE (12:53)
[2018-08-01] MEDS ORDERED: NACL 0.9% 1000 ML 1,000 ML ONE (12:53)
[2018-08-01] MEDS: PEPCID PO SCH ×2 (13:07→22:05)
[2018-08-01] MEDS: SODIUM CHLORIDE FLUSH SYRINGE 10 ML IV SCH ×2 (13:07→23:24)
--- NOTE | 2018-08-01 14:16 | Procedure Note ---
Date of procedure: 08/01/18 Pre-op diagnosis: respiratory failure Post-op diagnosis: same Procedure: Perc Trach Placement Consent was on the chart. Time out was performed. Sterile prep and drape was done. Anesthesia was managed by anesthesia provider. Lidocaine was used to anesthetize an area about two finger breadths above the sternal notch. Transverse incision was made. Blunt dissection was carried down to trachea. Under bronchoscopic guidance, a finder needle was used to enter the trachea. Thereafter, the introducer needle was inserted. It was approximately at the second tracheal ring. Tract was dilated and tracheostomy tube was easily inserted. Balloon was inflated. Position was rechecked via bronchoscopy through the tracheostomy tube. We were at least 3 cm above the quan. We had good inspiratory and expiratory volumes. CXR pending. There were no apparent complications at the end of the case. Findings: normal anatomy Implants: 8 Shiley trach Anesthesia: MAC Surgeon: TRELL ALMANZA Practice Architect: CALEB MARCH Pathology: none Condition: stable Disposition: ICU
--- NOTE | 2018-08-01 14:34 | Anesthesia Consultation ---
Anesthesia Consult and Med Hx Date of service: 08/01/18 - Pulmonary Exam CTA: No - Cardiac Exam Cardiac Exam: RRR (tachycardic low 100s) - Pre-Operative Health Status ASA Pre-Surgery Classification: ASA4 Proposed Anesthetic Plan: General - Pulmonary Hx Respiratory Symptoms: Yes Hx Pneumonia: Yes (PJP PNA w/ vent dependence) - Cardiovascular System Hx Hypertension: No Hx Heart Attack/AMI: No - Central Nervous System CVA: No - Gastrointestinal Hx Gastroesophageal Reflux Disease: Yes (dysphagia) - Endocrine Hx End Stage Renal Disease: No Hx Liver Disease: Yes (transaminitis) Hx Insulin Dependent Diabetes: No - Hematic Hx Anemia: Yes - Other Systems Hx Obesity: No - Additional Comments Anesthesia Medical History Comments: Hx HIV/AIDS noncompliant with meds. 2 consent obtained for procedure/anesthesia as there is no indentified NOK and patient is unable to consent for himself.
--- NOTE | 2018-08-01 14:34 | Post Anesthesia Evaluation ---
- Post Anesthesia Evaluation Patient Participated: Yes Airway Patent: Yes Stable Respiratory Function: Yes Nausea/Vomiting: No Temp > 96.8F: Yes Pain Manageable: Yes Adequeate Hydration: Yes Anesthesia Complications: No
--- NOTE | 2018-08-01 14:34 | Anesthesia Day of Surgery ---
Anesthesia Day of Surgery - Day of Surgery Patient Examined: Yes Patient H&P Reviewed: Yes Patient is NPO: Yes
--- NOTE | 2018-08-01 15:00 | Progress Note ---
Assessment and Plan Cultures: Blood culture 07/11/2018 no growth today. Cryptococcal antigen : negative MRSA PCR: positive Blood culture 07/15/2018: in progress Urine culture 07/15/2018: no growth in 24 hours Sputum culture 07/15/18: MRSA, Jannette CMV PCR 07/15/2018 33,392 copies Assessment: 37 y/o male currently in correction with history of HIV infection of unknown duration, noncompliant with antiretroviral medication, severe malnutrition; admitted on 07/11/2018, brought by law enforcement, due to 2-week history of shortness of breath, generalized weakness and productive cough: 1) Sepsis with new septic shock: off pressors. no fever. Etiology most likely pneumonia. CRP 2.7. Procalcitonin 3.09. 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 CMV +/- MRSA. Sputum culture 07/11/2018 no growth today. Chest CT showed bilateral patchy and somewhat confluent alveolar infiltrates and interstitial infiltrates. No effusions. Mild cardiomegaly. Sputum culture 07/15 grew MRSA and Jannette. Completed linezolid x 10 days until 07/23. S/p 21 days bactrim IV until 07/31/2018. 3) HIV, presumed AIDS: Patient has not taken his HIV medication for at least 6 months prior due to his incarceration. On admission he reported 40lbs unintentional weight loss for 2 months and intermittent loose stools over the past 2 weeks. VL 523,000/ CD4=7. Pneumocytosis Jirovecii positive. RPR nonreactive. Hepatitis panel negative. 4) Diarrhea: ? possible opportunistic infection. resolved 5) Acute respiratory failure: not better, from pneumonia. 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: - s/p trach/PEG placement today - continue valganciclovir 900 mg PO BID D10 to cover CMV viremia, re-check CMV DNA PCR on 08/06 - continue bactrim DS 1 tab q day for PJP prophylaxis - contact isolation for MRSA - HIV genotype pending - continue azithromycin 1200 mg PO qweek for MAC prophylaxis Will follow Ana Kuar MD Infectious Diseases [employer] [facility] M [phone] O [phone] Subjective Date of service: 08/01/18 Principal diagnosis: Acute hypoxemic resp failure; Bilateral pneumonia (PJP); HIV/AIDS Interval history: Sedated just came back from OR for trach/PEG, no fever, intubated, FiO2 100% p 8 ROS unable to obtain Objective - Exam Narrative Exam: General appearance: alert, follows commands on the ventilator Eyes: anicteric sclerae, moist conjunctivae; no lid-lag; PERRLA HENT: Atraumatic; oropharynx Neck: +trach Lungs: ryland rhonchi CV: tachycardic Abdomen: Soft, +PEG Extremities: No peripheral edema or extremity lymphadenopathy Skin: Normal temperature, turgor and texture; no rash, ulcers or subcutaneous nodules Psych:sedated Neuro: sedated - Constitutional Vitals: Vital Signs Temp Pulse Resp BP Pulse Ox 98.7 F 92 H 28 H 103/71 100 08/01/18 13:15 08/01/18 13:15 08/01/18 13:15 08/01/18 13:15 08/01/18 13:15 Temperature -Last 24 Hours Temperature 98.7 F Temperature 96.1 F Temperature 94.3 F Temperature 98.0 F Temperature 98.1 F Temperature 97.9 F Temperature 97.7 F - Labs CBC & Chem 7: 07/28/18 05:20 07/28/18 05:20
--- NOTE | 2018-08-01 15:12 | Procedure Note ---
Date of procedure: 08/01/18 Pre-op diagnosis: VDRF Post-op diagnosis: same Procedure: Fiberoptic bronchoscopy Findings: Time out performed prior to each procedure. The patient was placed in supine position with a shoulder roll positioned across the back. The neck was slightly hyperextended. The fiberoptic bronchoscope was passed through an adapter into the endotracheal tube and advanced into the trachea. Trachea unremarkable. The ETT was then slowly retracted to approximately 17 cm at the lip. Dr. Hammond then performed the percutaneous tracheostomy under direct bronchoscopic visualization. Once the tracheostomy was placed, bronchoscope was withdrawn from ETT and placed through tracheostomy. The tip of the tracheostomy was approximately 3 cm above the quan. There was no bleeding or secretions. The tracheostomy tube was hooked up to the vent and inspiratory and expiratory volumes were satisfactory. The patient tolerated the procedure well. Anesthesia: GETA, local Surgeon: CALEB MARCH Estimated blood loss: none Pathology: none Condition: stable Disposition: no change
--- NOTE | 2018-08-01 15:13 | Procedure Note ---
Date of procedure: 08/01/18 Pre-op diagnosis: VDRF Post-op diagnosis: same Procedure: PEG tube placement Findings: Time out taken. Bite block was placed in the mouth and the endoscope passed into the esophagus and to the stomach under direct visualization. The stomach was insufflated and examination was unremarkable. There was transillumination of the stomach through the abdominal wall. This spot was chosen for PEG placement. Dr. Almanza anesthetized the skin at this location with local anesthetic and created a small incision using an 11 blade. The needle with breakaway catheter was inserted into the stomach under endoscopic guidance. The needle was removed and wire passed through the catheter. The wire was snared and withdrawn along with the endoscope through the mouth. The PEG was attached and pulled through the mouth and into the stomach. The endoscope was passed through the mouth and into the stomach. The PEG inner bumper was seen and was laying flush against the serosa without tension. The outer bumper was a 1cm at the skin. Examination of the fundus, body, and antrum of the stomach was unremarkable. The pylorus and 1st portion of the duodenum were unremarkable. The stomach was desufflated and the scope withdrawn into the esophaus. The esophagus was unremarkable. The dobhoff tube was removed. The endoscope was withdrawn completely. The PEG tube was assembled in the usual fashion. Anesthesia: fernando LENZ Surgeon: CALEB MARCH Health Professor: TRELL ALMANZA (cosurgeon) Estimated blood loss: minimal Pathology: none Condition: stable Disposition: no change
--- NOTE | 2018-08-01 15:29 | XRay Report ---
PROCEDURE: XR CHEST 1V AP TECHNIQUE: Chest radiograph single view. HISTORY: trach placement COMPARISONS: None . FINDINGS: Single frontal view of the chest was acquired and compared to the prior examination of July 30. There is a tracheostomy which lies in appropriate position. There is a right-sided PICC line with its tip in the superior vena cava. There is some faint increased density medial right lung base which could represent atelectasis or pne umonia. This appears slightly improved from the prior exam. IMPRESSION: Tracheostomy, which appears to lie in appropriate position This document is electronically signed by Darron Marin MD., Aug 01 2018 03:27:29 PM ET
[2018-08-01] MEDS: DIPRIVAN 10 MG/ML IV ONE (23:18)
[2018-08-02] MEDS: fentaNYL DRIP Premix 2,000 MCG/100 ML BAG IV SCH ×3 (05:56→21:51)
[2018-08-02] MEDS: DIPRIVAN 10 MG/ML IV ONE (06:57)
[2018-08-02 08:01] LABS: BUN/Creatinine Ratio 44; Blood Urea Nitrogen 22 mg/dL (9-20); Calcium 8.1 mg/dL (8.4-10.2); Hemolysis Index 12
--- NOTE | 2018-08-02 08:13 | Progress Note ---
Assessment and Plan Cultures: Blood culture 07/11/2018 no growth today. Cryptococcal antigen : negative MRSA PCR: positive Blood culture 07/15/2018: in progress Urine culture 07/15/2018: no growth in 24 hours Sputum culture 07/15/18: MRSA, Jannette CMV PCR 07/15/2018 33,392 copies Assessment: 37 y/o male currently in [facility] with history of HIV infection of unknown duration, noncompliant with antiretroviral medication, severe malnutrition; admitted on 07/11/2018, brought by law enforcement, due to 2-week history of shortness of breath, generalized weakness and productive cough: 1) Sepsis with new septic shock: off pressors. no fever. Etiology most likely pneumonia. CRP 2.7. Procalcitonin 3.09. 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 CMV +/- MRSA. Sputum culture 07/11/2018 no growth today. Chest CT showed bilateral patchy and somewhat confluent alveolar infiltrates and interstitial infiltrates. No effusions. Mild cardiomegaly. Sputum culture 07/15 grew MRSA and Jannette. Completed linezolid x 10 days until 07/23. S/p 21 days bactrim IV until 07/31/2018. 3) HIV, presumed AIDS: Patient has not taken his HIV medication for at least 6 months prior due to his incarceration. On admission he reported 40lbs unintentional weight loss for 2 months and intermittent loose stools over the past 2 weeks. VL 523,000/ CD4=7. Pneumocytosis Jirovecii positive. RPR nonreactive. Hepatitis panel negative. 4) Diarrhea: ? possible opportunistic infection. resolved 5) Acute respiratory failure: not better, from pneumonia. 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 on 07/15/2018 Recommendations: - continue valganciclovir 900 mg PO BID D11 to cover CMV viremia - re-check CMV DNA PCR on 08/06 - continue bactrim DS 1 tab q day for PJP prophylaxis - contact isolation for MRSA - HIV genotype pending - continue azithromycin 1200 mg PO qweek for MAC prophylaxis Will follow Ana Kaur MD Infectious Diseases [employer] [facility] M [phone] O [phone] Subjective Date of service: 08/02/18 Principal diagnosis: Acute hypoxemic resp failure; Bilateral pneumonia (PJP); HIV/AIDS Interval history: Alert follows commands, no fever, on the vent via trach, FiO2 40% ROS unable to obtain Objective - Exam Narrative Exam: General appearance: alert, follows commands on the ventilator Eyes: anicteric sclerae, moist conjunctivae; no lid-lag; PERRLA HENT: Atraumatic; oropharynx clear Neck: +trach Lungs: ryland rhonchi CV: tachycardic Abdomen: Soft, +PEG Extremities: No peripheral edema or extremity lymphadenopathy Skin: Normal temperature, turgor and texture; no rash, ulcers or subcutaneous nodules Psych: no agitated. Neuro: alert follows commands, moving all extr - Constitutional Vitals: Vital Signs Temp Pulse Resp BP Pulse Ox 98.7 F 102 H 28 H 100/64 92 08/02/18 04:00 08/02/18 05:00 08/02/18 05:00 08/02/18 05:00 08/02/18 05:00 Temperature -Last 24 Hours Temperature 98.7 F Temperature 98.8 F Temperature 98.2 F Temperature 97 F Temperature 98.7 F Temperature 98.7 F Temperature 96.1 F - Labs CBC & Chem 7: 07/28/18 05:20 08/02/18 06:30 Labs: Abnormal lab results 08/02/18 Range/Units 06:30 Sodium 133 L (137-145) mmol/L Chloride 92.7 L (98-107) mmol/L BUN 22 H (9-20) mg/dL Creatinine 0.5 L (0.8-1.5) mg/dL Calcium 8.1 L (8.4-10.2) mg/dL
[2018-08-02 08:39] LABS: Basophils % (Auto) 0.7 % (0.0-1.8); Eosinophils # (Auto) 0.1 K/mm3 (0.0-0.4); Eosinophils % (Auto) 1.1 % (0.0-4.3); Hematocrit 27.6 % (35.5-45.6); Hemoglobin 9.4 gm/dl (11.8-15.2); Lymphocytes # (Auto) 0.6 K/mm3 (1.2-5.4); Lymphocytes % (Auto) 11.1 % (13.4-35.0); Mean Corpuscular HGB Conc 34 % (32-34); Mean Corpuscular Volume 93 fl (84-94); Monocytes # (Auto) 0.2 K/mm3 (0.0-0.8); Monocytes % (Auto) 3.1 % (0.0-7.3); Platelet Count 408 K/mm3 (140-440); Red Blood Count 2.96 M/mm3 (3.65-5.03); Red Cell Distribution Width 18.4 % (13.2-15.2)
--- NOTE | 2018-08-02 09:16 | Progress Note ---
Assessment and Plan Acute Hypoxic respiratory failure on mechanical ventilation Severe sepsis with septic shock Severe ARDS Sepsis present on admission with grater than 2 SOFA criteria PJP (pneumocystis jiroveci pneumonia) Diarrhea Hyponatermia Syndrome Hyperkalemia Moderate Protein Malnutrition AIDS ANEMIA Elevated d/DIMER- NO PE noted Nicotine dependance/Tobacco use disorder Continue to wean PEEP is down to 6, start SBT trials. FIO2 is currently at 45% Continue all supportive care Discussed extensively in ICU-IDT rounds Continue all care as documented below -Transfuse to keep HgB>7g/dL as indicated -Titrate sedation to RASS of 0 to -1 -VAP bundle addressed - Continue lung protective strategies per ARDS net protocol -Permissive hypercapnia is acceptable - Antibiotics, anti-infectives per ID service. -ART per ID service, Antibiotic prophylaxis for OI per ID - Continue bronchodilators with pulmonary hygiene per RT - Continue full MVS -CXR and ABG in am -Wean FIO2 for O2 sats>90%, at FIO2 of 45% at this time. Decrease PEEP to 6 - Monitor renal indices closely - Avoid nephrotoxic agents - Strict intake and output monitoring - Tube feedings, on Vital AF at 65ml/hour - Aspiration precautions. HOB >40 -Stress ulcer prophylaxis -VTE prophylaxis - Accuchecks with glycemic control. Target glucose of 140-180 mg/dL -Supportive transfusions as indicated for HgB<7g/dL - Maintenance of sleep -wake cycle - Mobility as tolerated by hemodynamics - Influenza and pneumonia vaccination per protocol ..care plan discussed at length with RN/RT at the bedside -Discussed in ICU-IDT rounds The high probability of a clinically significant, sudden or life threatening deterioration of the [pulmonary, cardiovascular] system(s) required my full and direct attention, intervention and personal management. The aggregate critical care time was [35] minutes. This time is in addition to time spent performing reported procedures but includes the following: [x] Data Review and interpretation [x] Patient assessment and monitoring of vital signs [x] Documentation [x] Medication orders and management Subjective Date of service: 08/02/18 Principal diagnosis: Acute hypoxemic resp failure; Bilateral pneumonia (PJP); HIV/AIDS Interval history: Patient is seen today for: Acute hypoxemic respiratory failure, on mechanical ventilatory support; Bilateral pneumonia, high suspicion for Pneumocystis jiro veci pneumonia; Human immunodeficiency virus/acquired immunodeficiency syndrome,noncompliant with therapy; Hyponatremia; Severe protein calorie malnutrition. Seen and examined at bedside; 24-hour events reviewed; nursing and respiratory care staff consulted; no adverse overnight events reported to me; remains critically ill with high ventilatory demands and on critical drips. Awake and alert, attempting to vocalize. No fevers, tolerating tube feedings, weaning FIO2, tolerating slow weaning of PEEP s/p trachesotomy, s/p PEG Objective Vital Signs - 12hr 08/01/18 08/01/18 08/01/18 22:00 22:31 23:00 Temperature Pulse Rate 95 H 93 H 103 H Respiratory 28 H 28 H 20 Rate Blood Pressure 112/65 109/69 108/68 O2 Sat by Pulse 94 92 89 Oximetry O2 Sat by Pulse Oximetry [ Assessment] 08/01/18 08/01/18 08/02/18 23:02 23:50 00:00 Temperature 98.8 F Pulse Rate 101 H 94 H 92 H Respiratory 28 H 24 Rate Blood Pressure 108/68 93/59 101/60 O2 Sat by Pulse 89 94 92 Oximetry O2 Sat by Pulse Oximetry [ Assessment] 08/02/18 08/02/18 08/02/18 01:00 02:00 03:00 Temperature Pulse Rate 106 H 103 H 99 H Respiratory 28 H 28 H 24 Rate Blood Pressure 94/50 90/51 101/47 O2 Sat by Pulse 92 95 98 Oximetry O2 Sat by Pulse Oximetry [ Assessment] 08/02/18 08/02/18 08/02/18 04:00 04:37 04:45 Temperature 98.7 F Pulse Rate 100 H 103 H Respiratory 28 H Rate Blood Pressure 114/68 103/64 O2 Sat by Pulse 92 94 Oximetry O2 Sat by Pulse 94 Oximetry [ Assessment] 08/02/18 08/02/18 08/02/18 05:00 08:36 08:41 Temperature Pulse Rate 102 H 107 H Respiratory 28 H Rate Blood Pressure 100/64 105/61 O2 Sat by Pulse 92 94 Oximetry O2 Sat by Pulse 94 Oximetry [ Assessment] Constitutional: no acute distress, other (young AAM; normocephalic and atraumatic) Eyes: non-icteric ENT: oropharynx moist, other (s/p trachesotomy) Neck: supple, no lymphadenopathy, no JVD, other (no thyromegaly) Effort: mildly labored Ascultation: Bilateral: diminished breath sounds, rales Percussion: Bilateral: not dull Cardiovascular: regular rate and rhythm, other (S1,S2, no murmurs, gallops or rubs) Gastrointestinal: normoactive bowel sounds, soft, non-tender, non-distended, other (PEG tube in place) Integumentary: normal Extremities: no cyanosis, no edema, pulses normal, no ischemia or petechiae Neurologic: normal mental status, non-focal exam, pupils equal and round, CN II- XII normal, motor strength normal and Psychiatric: mood appropriate, affect normal CBC and BMP: 08/03/18 06:30 08/03/18 06:30 ABG, PT/INR, D-dimer: ABG POC ABG pH 7.435 (7.35-7.45) 07/29/18 04:28 POC ABG pCO2 55.1 (35-45) H 07/29/18 04:28 POC ABG pO2 76 (80-105) L 07/29/18 04:28 POC ABG HCO3 37.0 (22-26 mml/L) 07/29/18 04:28 POC ABG Total CO2 39 (23-27mmol/L) 07/29/18 04:28 POC ABG O2 Sat 95 07/29/18 04:28 PT/INR, D-dimer 1298.70 ng/mlDDU (0-234) H 07/11/18 15:04 Abnormal lab findings: Abnormal Labs 07/11/18 07/11/18 07/11/18 14:06 14:06 15:04 RBC 3.30 L Hgb 9.6 L Hct 28.7 L MCHC RDW Plt Count Lymph % (Auto) Lymph # Seg Neutrophils % Abs Lymphs (Manual) D-Dimer 1298.70 H POC ABG pH POC ABG pCO2 POC ABG pO2 Sodium 132 L Potassium Chloride Carbon Dioxide BUN Creatinine 0.6 L Glucose 103 H POC Glucose Calcium 7.3 L AST ALT Lactate Dehydrogenase C-Reactive Protein Total Protein Albumin 2.1 L Triglycerides Lymph Enumerat CD4/CD8 % CD3 Cells Absolute CD3 Count % CD4 Cells Absolute CD4 Count % CD8 Cells Absolute CD8 Count % CD19 Cells Absolute CD19 Count HIV-1 RNA PCR copies/ml HIV-1 RNA (PCR) log Miscellaneous Test Crossmatch 07/11/18 07/11/1807/12/19 17:36 22:15 00:25 RBC Hgb Hct MCHC RDW Plt Count Lymph % (Auto) Lymph # Seg Neutrophils % Abs Lymphs (Manual) D-Dimer POC ABG pH 7.289 L POC ABG pCO2 POC ABG pO2 66 L Sodium Potassium Chloride Carbon Dioxide BUN Creatinine Glucose POC Glucose Calcium AST ALT Lactate Dehydrogenase 591 H C-Reactive Protein Total Protein Albumin Triglycerides Lymph Enumerat CD4/CD8 % CD3 Cells Absolute CD3 Count % CD4 Cells Absolute CD4 Count % CD8 Cells Absolute CD8 Count % CD19 Cells Absolute CD19 Count HIV-1 RNA PCR copies/ml HIV-1 RNA (PCR) log Miscellaneous Test see below H Crossmatch 07/12/18 07/12/18 07/12/18 00:41 05:37 19:29 RBC Hgb Hct MCHC RDW Plt Count Lymph % (Auto) Lymph # Seg Neutrophils % Abs Lymphs (Manual) D-Dimer POC ABG pH 7.302 L 7.275 L POC ABG pCO2 47.1 H POC ABG pO2 Sodium Potassium Chloride Carbon Dioxide BUN Creatinine Glucose POC Glucose Calcium AST ALT Lactate Dehydrogenase 731 H C-Reactive Protein Total Protein Albumin Triglycerides Lymph Enumerat CD4/CD8 % CD3 Cells Absolute CD3 Count % CD4 Cells Absolute CD4 Count % CD8 Cells Absolute CD8 Count % CD19 Cells Absolute CD19 Count HIV-1 RNA PCR copies/ml HIV-1 RNA (PCR) log Miscellaneous Test Crossmatch 07/12/18 07/12/18 07/13/18 19:29 19:29 04:03 RBC Hgb Hct MCHC RDW Plt Count Lymph % (Auto) Lymph # Seg Neutrophils % Abs Lymphs (Manual) 220 L D-Dimer POC ABG pH 7.254 L POC ABG pCO2 49.2 H POC ABG pO2 Sodium Potassium Chloride Carbon Dioxide BUN Creatinine Glucose POC Glucose Calcium AST ALT Lactate Dehydrogenase C-Reactive Protein Total Protein Albumin Triglycerides Lymph Enumerat CD4/CD8 0.04 L % CD3 Cells 88 H Absolute CD3 Count 194 L % CD4 Cells 3 L Absolute CD4 Count 7 L % CD8 Cells 75 H Absolute CD8 Count 177 L % CD19 Cells 4 L Absolute CD19 Count 9 L HIV-1 RNA PCR copies/ml 244084 H HIV-1 RNA (PCR) log 5.72 H Miscellaneous Test Crossmatch 07/13/18 07/13/18 07/13/18 05:46 12:23 18:31 RBC Hgb Hct MCHC RDW Plt Count Lymph % (Auto) Lymph # Seg Neutrophils % Abs Lymphs (Manual) D-Dimer POC ABG pH POC ABG pCO2 POC ABG pO2 Sodium Potassium Chloride Carbon Dioxide BUN Creatinine Glucose POC Glucose 68 L 106 H 112 H Calcium AST ALT Lactate Dehydrogenase C-Reactive Protein Total Protein Albumin Triglycerides Lymph Enumerat CD4/CD8 % CD3 Cells Absolute CD3 Count % CD4 Cells Absolute CD4 Count % CD8 Cells Absolute CD8 Count % CD19 Cells Absolute CD19 Count HIV-1 RNA PCR copies/ml HIV-1 RNA (PCR) log Miscellaneous Test Crossmatch 07/14/18 07/14/18 07/14/18 04:19 05:36 05:36 RBC 2.99 L Hgb 8.8 L Hct 25.7 L MCHC RDW 15.5 H Plt Count Lymph % (Auto) Lymph # Seg Neutrophils % Abs Lymphs (Manual) D-Dimer POC ABG pH 7.337 L POC ABG pCO2 POC ABG pO2 Sodium 135 L Potassium Chloride Carbon Dioxide 21 L BUN Creatinine 0.7 L Glucose 123 H POC Glucose Calcium 8.2 L AST ALT Lactate Dehydrogenase C-Reactive Protein Total Protein Albumin Triglycerides Lymph Enumerat CD4/CD8 % CD3 Cells Absolute CD3 Count % CD4 Cells Absolute CD4 Count % CD8 Cells Absolute CD8 Count % CD19 Cells Absolute CD19 Count HIV-1 RNA PCR copies/ml HIV-1 RNA (PCR) log Miscellaneous Test Crossmatch 07/14/18 07/14/18 07/14/18 12:14 14:33 17:18 RBC Hgb Hct MCHC RDW Plt Count Lymph % (Auto) Lymph # Seg Neutrophils % Abs Lymphs (Manual) D-Dimer POC ABG pH 7.325 L POC ABG pCO2 POC ABG pO2 75 L Sodium Potassium Chloride Carbon Dioxide BUN Creatinine Glucose POC Glucose 174 H 114 H Calcium AST ALT Lactate Dehydrogenase C-Reactive Protein Total Protein Albumin Triglycerides Lymph Enumerat CD4/CD8 % CD3 Cells Absolute CD3 Count % CD4 Cells Absolute CD4 Count % CD8 Cells Absolute CD8 Count % CD19 Cells Absolute CD19 Count HIV-1 RNA PCR copies/ml HIV-1 RNA (PCR) log Miscellaneous Test Crossmatch 07/15/18 07/15/18 07/15/18 00:17 12:29 12:29 RBC 2.64 L Hgb 7.5 L Hct 22.9 L MCHC RDW 15.4 H Plt Count Lymph % (Auto) 7.0 L Lymph # 0.4 L Seg Neutrophils % 89.6 H Abs Lymphs (Manual) D-Dimer POC ABG pH POC ABG pCO2 POC ABG pO2 Sodium Potassium Chloride Carbon Dioxide BUN Creatinine 0.6 L Glucose 124 H POC Glucose 113 H Calcium 7.3 L AST ALT Lactate Dehydrogenase C-Reactive Protein Total Protein Albumin Triglycerides Lymph Enumerat CD4/CD8 % CD3 Cells Absolute CD3 Count % CD4 Cells Absolute CD4 Count % CD8 Cells Absolute CD8 Count % CD19 Cells Absolute CD19 Count HIV-1 RNA PCR copies/ml HIV-1 RNA (PCR) log Miscellaneous Test Crossmatch 07/15/18 07/16/18 07/16/18 14:09 04:46 07:21 RBC Hgb Hct MCHC RDW Plt Count Lymph % (Auto) Lymph # Seg Neutrophils % Abs Lymphs (Manual) D-Dimer POC ABG pH 7.282 L POC ABG pCO2 52.6 H POC ABG pO2 63 L Sodium Potassium Chloride Carbon Dioxide BUN Creatinine Glucose POC Glucose Calcium AST ALT Lactate Dehydrogenase C-Reactive Protein 2.70 H Total Protein Albumin Triglycerides Lymph Enumerat CD4/CD8 % CD3 Cells Absolute CD3 Count % CD4 Cells Absolute CD4 Count % CD8 Cells Absolute CD8 Count % CD19 Cells Absolute CD19 Count HIV-1 RNA PCR copies/ml HIV-1 RNA (PCR) log Miscellaneous Test Flexitest 1 H Crossmatch 07/16/18 07/16/18 07/16/18 07:21 07:21 16:16 RBC 2.48 L Hgb 7.2 L Hct 21.5 L MCHC RDW 15.7 H Plt Count Lymph % (Auto) Lymph # Seg Neutrophils % Abs Lymphs (Manual) D-Dimer POC ABG pH 7.251 L POC ABG pCO2 62.2 H POC ABG pO2 Sodium 136 L Potassium Chloride Carbon Dioxide BUN Creatinine 0.6 L Glucose 118 H POC Glucose Calcium 7.5 L AST ALT Lactate Dehydrogenase C-Reactive Protein Total Protein Albumin Triglycerides Lymph Enumerat CD4/CD8 % CD3 Cells Absolute CD3 Count % CD4 Cells Absolute CD4 Count % CD8 Cells Absolute CD8 Count % CD19 Cells Absolute CD19 Count HIV-1 RNA PCR copies/ml HIV-1 RNA (PCR) log Miscellaneous Test Crossmatch 07/17/18 07/18/18 07/18/18 04:01 01:10 03:10 RBC 2.20 L Hgb 6.5 L Hct 19.2 L* MCHC RDW 16.0 H Plt Count Lymph % (Auto) 7.2 L Lymph # 0.5 L Seg Neutrophils % 89.9 H Abs Lymphs (Manual) D-Dimer POC ABG pH 7.245 L POC ABG pCO2 63.8 H POC ABG pO2 75 L Sodium Potassium Chloride Carbon Dioxide BUN Creatinine Glucose POC Glucose Calcium AST ALT Lactate Dehydrogenase C-Reactive Protein Total Protein Albumin Triglycerides Lymph Enumerat CD4/CD8 % CD3 Cells Absolute CD3 Count % CD4 Cells Absolute CD4 Count % CD8 Cells Absolute CD8 Count % CD19 Cells Absolute CD19 Count HIV-1 RNA PCR copies/ml HIV-1 RNA (PCR) log Miscellaneous Test Crossmatch See Detail 07/18/18 07/18/18 07/18/18 04:54 05:02 12:59 RBC Hgb Hct MCHC RDW Plt Count Lymph % (Auto) Lymph # Seg Neutrophils % Abs Lymphs (Manual) D-Dimer POC ABG pH 7.615 H POC ABG pCO2 32.6 L 48.8 H POC ABG pO2 79 L 118 H Sodium Potassium Chloride Carbon Dioxide BUN Creatinine Glucose POC Glucose 164 H Calcium AST ALT Lactate Dehydrogenase C-Reactive Protein Total Protein Albumin Triglycerides Lymph Enumerat CD4/CD8 % CD3 Cells Absolute CD3 Count % CD4 Cells Absolute CD4 Count % CD8 Cells Absolute CD8 Count % CD19 Cells Absolute CD19 Count HIV-1 RNA PCR copies/ml HIV-1 RNA (PCR) log Miscellaneous Test Crossmatch 07/18/18 07/18/18 07/19/18 18:25 20:39 03:53 RBC Hgb Hct MCHC RDW Plt Count Lymph % (Auto) Lymph # Seg Neutrophils % Abs Lymphs (Manual) D-Dimer POC ABG pH 7.339 L POC ABG pCO2 59.9 H 65.0 H POC ABG pO2 69 L Sodium Potassium Chloride Carbon Dioxide BUN Creatinine Glucose POC Glucose 155 H Calcium AST ALT Lactate Dehydrogenase C-Reactive Protein Total Protein Albumin Triglycerides Lymph Enumerat CD4/CD8 % CD3 Cells Absolute CD3 Count % CD4 Cells Absolute CD4 Count % CD8 Cells Absolute CD8 Count % CD19 Cells Absolute CD19 Count HIV-1 RNA PCR copies/ml HIV-1 RNA (PCR) log Miscellaneous Test Crossmatch 07/19/18 07/19/18 07/19/18 08:10 08:10 10:52 RBC 2.51 L Hgb 7.4 L Hct 22.0 L MCHC RDW 15.5 H Plt Count Lymph % (Auto) Lymph # Seg Neutrophils % Abs Lymphs (Manual) D-Dimer POC ABG pH POC ABG pCO2 POC ABG pO2 Sodium 130 L Potassium Chloride 89.0 L Carbon Dioxide 33 H BUN Creatinine 0.4 L Glucose 150 H POC Glucose 173 H Calcium 7.5 L AST ALT Lactate Dehydrogenase C-Reactive Protein Total Protein Albumin Triglycerides Lymph Enumerat CD4/CD8 % CD3 Cells Absolute CD3 Count % CD4 Cells Absolute CD4 Count % CD8 Cells Absolute CD8 Count % CD19 Cells Absolute CD19 Count HIV-1 RNA PCR copies/ml HIV-1 RNA (PCR) log Miscellaneous Test Crossmatch 07/19/18 07/19/18 07/20/18 17:06 23:47 04:37 RBC Hgb Hct MCHC RDW Plt Count Lymph % (Auto) Lymph # Seg Neutrophils % Abs Lymphs (Manual) D-Dimer POC ABG pH POC ABG pCO2 58.5 H POC ABG pO2 67 L Sodium Potassium Chloride Carbon Dioxide BUN Creatinine Glucose POC Glucose 117 H 114 H Calcium AST ALT Lactate Dehydrogenase C-Reactive Protein Total Protein Albumin Triglycerides Lymph Enumerat CD4/CD8 % CD3 Cells Absolute CD3 Count % CD4 Cells Absolute CD4 Count % CD8 Cells Absolute CD8 Count % CD19 Cells Absolute CD19 Count HIV-1 RNA PCR copies/ml HIV-1 RNA (PCR) log Miscellaneous Test Crossmatch 07/20/18 07/20/18 07/21/18 06:20 06:20 04:18 RBC 2.69 L Hgb 7.8 L Hct 23.6 L MCHC RDW 15.5 H Plt Count Lymph % (Auto) Lymph # Seg Neutrophils % Abs Lymphs (Manual) D-Dimer POC ABG pH 7.456 H POC ABG pCO2 60.4 H POC ABG pO2 64 L Sodium 134 L Potassium Chloride 89.2 L Carbon Dioxide 38 H BUN Creatinine 0.7 L D Glucose 120 H POC Glucose Calcium 7.6 L AST ALT Lactate Dehydrogenase C-Reactive Protein Total Protein Albumin Triglycerides Lymph Enumerat CD4/CD8 % CD3 Cells Absolute CD3 Count % CD4 Cells Absolute CD4 Count % CD8 Cells Absolute CD8 Count % CD19 Cells Absolute CD19 Count HIV-1 RNA PCR copies/ml HIV-1 RNA (PCR) log Miscellaneous Test Crossmatch 07/21/18 07/21/18 07/22/18 04:35 04:35 04:16 RBC 2.62 L 2.37 L Hgb 7.7 L 7.0 L Hct 23.1 L 21.1 L MCHC RDW 15.4 H Plt Count Lymph % (Auto) Lymph # Seg Neutrophils % Abs Lymphs (Manual) D-Dimer POC ABG pH POC ABG pCO2 POC ABG pO2 Sodium 129 L Potassium 5.3 H Chloride 85.3 L Carbon Dioxide 38 H BUN Creatinine 0.4 L Glucose 108 H POC Glucose Calcium 8.0 L AST ALT Lactate Dehydrogenase C-Reactive Protein Total Protein Albumin Triglycerides Lymph Enumerat CD4/CD8 % CD3 Cells Absolute CD3 Count % CD4 Cells Absolute CD4 Count % CD8 Cells Absolute CD8 Count % CD19 Cells Absolute CD19 Count HIV-1 RNA PCR copies/ml HIV-1 RNA (PCR) log Miscellaneous Test Crossmatch 07/22/18 07/23/18 07/23/18 04:16 03:25 12:45 RBC Hgb Hct MCHC RDW Plt Count Lymph % (Auto) Lymph # Seg Neutrophils % Abs Lymphs (Manual) D-Dimer POC ABG pH POC ABG pCO2 69.4 H POC ABG pO2 Sodium 132 L 125 L D Potassium 5.4 H 5.3 H Chloride 87.4 L 80.3 L Carbon Dioxide 38 H 38 H BUN Creatinine 0.4 L 0.3 L Glucose 117 H 124 H POC Glucose Calcium 7.5 L 7.4 L AST ALT Lactate Dehydrogenase C-Reactive Protein Total Protein Albumin Triglycerides Lymph Enumerat CD4/CD8 % CD3 Cells Absolute CD3 Count % CD4 Cells Absolute CD4 Count % CD8 Cells Absolute CD8 Count % CD19 Cells Absolute CD19 Count HIV-1 RNA PCR copies/ml HIV-1 RNA (PCR) log Miscellaneous Test Crossmatch 07/23/18 07/24/18 07/24/18 23:52 04:30 04:30 RBC 2.12 L Hgb 6.3 L Hct 18.9 L* MCHC RDW Plt Count Lymph % (Auto) Lymph # Seg Neutrophils % Abs Lymphs (Manual) D-Dimer POC ABG pH POC ABG pCO2 POC ABG pO2 Sodium 127 L Potassium 5.2 H Chloride 83.9 L Carbon Dioxide 39 H BUN Creatinine 0.3 L Glucose POC Glucose 118 H Calcium 7.5 L AST ALT Lactate Dehydrogenase C-Reactive Protein Total Protein Albumin Triglycerides Lymph Enumerat CD4/CD8 % CD3 Cells Absolute CD3 Count % CD4 Cells Absolute CD4 Count % CD8 Cells Absolute CD8 Count % CD19 Cells Absolute CD19 Count HIV-1 RNA PCR copies/ml HIV-1 RNA (PCR) log Miscellaneous Test Crossmatch 07/24/18 07/24/18 07/24/18 05:11 05:30 07:50 RBC Hgb Hct MCHC RDW Plt Count Lymph % (Auto) Lymph # Seg Neutrophils % Abs Lymphs (Manual) D-Dimer POC ABG pH 7.462 H POC ABG pCO2 58.7 H POC ABG pO2 79 L Sodium Potassium Chloride Carbon Dioxide BUN Creatinine Glucose POC Glucose 145 H Calcium AST ALT Lactate Dehydrogenase C-Reactive Protein Total Protein Albumin Triglycerides Lymph Enumerat CD4/CD8 % CD3 Cells Absolute CD3 Count % CD4 Cells Absolute CD4 Count % CD8 Cells Absolute CD8 Count % CD19 Cells Absolute CD19 Count HIV-1 RNA PCR copies/ml HIV-1 RNA (PCR) log Miscellaneous Test Crossmatch See Detail 07/25/18 07/25/18 07/26/18 09:30 09:30 00:18 RBC 2.99 L Hgb 9.1 L Hct 27.0 L D MCHC RDW Plt Count Lymph % (Auto) Lymph # Seg Neutrophils % Abs Lymphs (Manual) D-Dimer POC ABG pH POC ABG pCO2 POC ABG pO2 Sodium 131 L 135 L Potassium 5.1 H 5.5 H Chloride 84.4 L 88.4 L Carbon Dioxide 39 H 38 H BUN Creatinine 0.3 L 0.3 L Glucose 133 H POC Glucose Calcium 8.0 L AST ALT Lactate Dehydrogenase C-Reactive Protein Total Protein Albumin Triglycerides Lymph Enumerat CD4/CD8 % CD3 Cells Absolute CD3 Count % CD4 Cells Absolute CD4 Count % CD8 Cells Absolute CD8 Count % CD19 Cells Absolute CD19 Count HIV-1 RNA PCR copies/ml HIV-1 RNA (PCR) log Miscellaneous Test Crossmatch 07/26/18 07/26/18 07/26/18 04:07 05:50 05:50 RBC 3.01 L Hgb 9.4 L Hct 27.2 L MCHC 35 H RDW Plt Count Lymph % (Auto) 10.4 L Lymph # 0.9 L Seg Neutrophils % 84.2 H Abs Lymphs (Manual) D-Dimer POC ABG pH 7.456 H POC ABG pCO2 61.4 H POC ABG pO2 68 L Sodium 131 L Potassium 5.1 H Chloride 84.5 L Carbon Dioxide 39 H BUN Creatinine 0.3 L Glucose POC Glucose Calcium AST 78 H ALT 71 H Lactate Dehydrogenase C-Reactive Protein Total Protein 6.0 L Albumin 2.5 L Triglycerides Lymph Enumerat CD4/CD8 % CD3 Cells Absolute CD3 Count % CD4 Cells Absolute CD4 Count % CD8 Cells Absolute CD8 Count % CD19 Cells Absolute CD19 Count HIV-1 RNA PCR copies/ml HIV-1 RNA (PCR) log Miscellaneous Test Crossmatch 07/26/18 07/27/18 07/28/18 14:56 14:26 05:20 RBC Hgb Hct MCHC RDW Plt Count Lymph % (Auto) Lymph # Seg Neutrophils % Abs Lymphs (Manual) D-Dimer POC ABG pH 7.472 H POC ABG pCO2 66.0 H 57.4 H POC ABG pO2 56 L 59 L Sodium Potassium Chloride Carbon Dioxide BUN Creatinine Glucose POC Glucose Calcium AST ALT Lactate Dehydrogenase C-Reactive Protein Total Protein Albumin Triglycerides 209 H Lymph Enumerat CD4/CD8 % CD3 Cells Absolute CD3 Count % CD4 Cells Absolute CD4 Count % CD8 Cells Absolute CD8 Count % CD19 Cells Absolute CD19 Count HIV-1 RNA PCR copies/ml HIV-1 RNA (PCR) log Miscellaneous Test Crossmatch 07/28/18 07/28/18 07/28/18 05:20 05:20 06:08 RBC 3.21 L Hgb 10.0 L Hct 29.9 L MCHC RDW 15.4 H Plt Count 451 H Lymph % (Auto) Lymph # Seg Neutrophils % 81.6 H Abs Lymphs (Manual) D-Dimer POC ABG pH 7.328 L POC ABG pCO2 POC ABG pO2 70 L Sodium 136 L Potassium Chloride 89.9 L Carbon Dioxide 38 H BUN Creatinine 0.4 L Glucose POC Glucose Calcium 8.1 L AST 104 H ALT 113 H Lactate Dehydrogenase C-Reactive Protein Total Protein 6.2 L Albumin 2.5 L Triglycerides Lymph Enumerat CD4/CD8 % CD3 Cells Absolute CD3 Count % CD4 Cells Absolute CD4 Count % CD8 Cells Absolute CD8 Count % CD19 Cells Absolute CD19 Count HIV-1 RNA PCR copies/ml HIV-1 RNA (PCR) log Miscellaneous Test Crossmatch 07/28/18 07/29/18 08/02/18 17:22 04:28 06:30 RBC 2.96 L Hgb 9.4 L Hct 27.6 L MCHC RDW 18.4 H Plt Count Lymph % (Auto) 11.1 L Lymph # 0.6 L Seg Neutrophils % 84.0 H Abs Lymphs (Manual) D-Dimer POC ABG pH POC ABG pCO2 65.7 H 55.1 H POC ABG pO2 113 H 76 L Sodium Potassium Chloride Carbon Dioxide BUN Creatinine Glucose POC Glucose Calcium AST ALT Lactate Dehydrogenase C-Reactive Protein Total Protein Albumin Triglycerides Lymph Enumerat CD4/CD8 % CD3 Cells Absolute CD3 Count % CD4 Cells Absolute CD4 Count % CD8 Cells Absolute CD8 Count % CD19 Cells Absolute CD19 Count HIV-1 RNA PCR copies/ml HIV-1 RNA (PCR) log Miscellaneous Test Crossmatch 08/02/18 06:30 RBC Hgb Hct MCHC RDW Plt Count Lymph % (Auto) Lymph # Seg Neutrophils % Abs Lymphs (Manual) D-Dimer POC ABG pH POC ABG pCO2 POC ABG pO2 Sodium 133 L Potassium Chloride 92.7 L Carbon Dioxide BUN 22 H Creatinine 0.5 L Glucose POC Glucose Calcium 8.1 L AST ALT Lactate Dehydrogenase C-Reactive Protein Total Protein Albumin Triglycerides Lymph Enumerat CD4/CD8 % CD3 Cells Absolute CD3 Count % CD4 Cells Absolute CD4 Count % CD8 Cells Absolute CD8 Count % CD19 Cells Absolute CD19 Count HIV-1 RNA PCR copies/ml HIV-1 RNA (PCR) log Miscellaneous Test Crossmatch Chest x-ray: image reviewed Allied health notes reviewed: RT
--- NOTE | 2018-08-02 10:00 | Progress Note ---
Assessment and Plan - Patient Problems (1) Respiratory failure requiring intubation Current Visit: Yes Status: Acute Plan to address problem: s/p trach/PEG - 08/01 - POD#1. Pt appears stable. Routine trach and PEG care. May benefit from periodic venting of PEG to allow decompression of stomach. Will sign-off. Please call with questions. Time=10min Subjective Date of service: 08/02/18 Patient Reports: Positive: other (No events o/n. Pt indicates that he has no abdominal pain) Objective Vital Signs - 12hr 08/01/18 08/01/18 08/01/18 22:00 22:31 23:00 Temperature Pulse Rate 95 H 93 H 103 H Respiratory 28 H 28 H 20 Rate Blood Pressure 112/65 109/69 108/68 O2 Sat by Pulse 94 92 89 Oximetry O2 Sat by Pulse Oximetry [ Assessment] 08/01/18 08/01/18 08/02/18 23:02 23:50 00:00 Temperature 98.8 F Pulse Rate 101 H 94 H 92 H Respiratory 28 H 24 Rate Blood Pressure 108/68 93/59 101/60 O2 Sat by Pulse 89 94 92 Oximetry O2 Sat by Pulse Oximetry [ Assessment] 08/02/18 08/02/18 08/02/18 01:00 02:00 03:00 Temperature Pulse Rate 106 H 103 H 99 H Respiratory 28 H 28 H 24 Rate Blood Pressure 94/50 90/51 101/47 O2 Sat by Pulse 92 95 98 Oximetry O2 Sat by Pulse Oximetry [ Assessment] 08/02/18 08/02/18 08/02/18 04:00 04:37 04:45 Temperature 98.7 F Pulse Rate 100 H 103 H Respiratory 28 H Rate Blood Pressure 114/68 103/64 O2 Sat by Pulse 92 94 Oximetry O2 Sat by Pulse 94 Oximetry [ Assessment] 08/02/18 08/02/18 08/02/18 05:00 08:36 08:41 Temperature Pulse Rate 102 H 107 H Respiratory 28 H Rate Blood Pressure 100/64 105/61 O2 Sat by Pulse 92 94 Oximetry O2 Sat by Pulse 94 Oximetry [ Assessment] - General physical appearance no distress, no pain, other (awake. relaxed) - Eyes normal occular movement - Neck other (trach in place. No signs of drainage. ) - Respiratory normal expansion, normal respiratory effort - Abdomen soft, not tender, distended (mild (unchanged from yesterday before procedure)), not guarding, not rigid, other (PEG in place. No drainage. Tube feeds currently running) - Integumentary no rash, no growths, no abnormal pigmentation - Labs 08/02/18 06:30 08/02/18 06:30 Diabetes panel 08/02/18 Range/Units 06:30 Sodium 133 L (137-145) mmol/L Potassium 3.9 (3.6-5.0) mmol/L Chloride 92.7 L (98-107) mmol/L Carbon Dioxide 30 (22-30) mmol/L BUN 22 H (9-20) mg/dL Creatinine 0.5 L (0.8-1.5) mg/dL Glucose 78 (75-100) mg/dL Calcium 8.1 L (8.4-10.2) mg/dL Calcium panel 08/02/18 Range/Units 06:30 Calcium 8.1 L (8.4-10.2) mg/dL Pituitary panel 08/02/18 Range/Units 06:30 Sodium 133 L (137-145) mmol/L Potassium 3.9 (3.6-5.0) mmol/L Chloride 92.7 L (98-107) mmol/L Carbon Dioxide 30 (22-30) mmol/L BUN 22 H (9-20) mg/dL Creatinine 0.5 L (0.8-1.5) mg/dL Glucose 78 (75-100) mg/dL Calcium 8.1 L (8.4-10.2) mg/dL Adrenal panel 08/02/18 Range/Units 06:30 Sodium 133 L (137-145) mmol/L Potassium 3.9 (3.6-5.0) mmol/L Chloride 92.7 L (98-107) mmol/L Carbon Dioxide 30 (22-30) mmol/L BUN 22 H (9-20) mg/dL Creatinine 0.5 L (0.8-1.5) mg/dL Glucose 78 (75-100) mg/dL Calcium 8.1 L (8.4-10.2) mg/dL - Imaging Chest x-ray: report reviewed, image reviewed
[2018-08-02] MEDS: BACTRIM 200-40 MG/5 ML PO SCH (10:03)
[2018-08-02] MEDS: ZITHROMAX PO SCH (10:03)
[2018-08-02] MEDS: PEPCID PO SCH ×2 (10:04→21:55)
[2018-08-02] MEDS: CARDURA PO SCH (10:04)
[2018-08-02] MEDS: COLACE PO SCH ×2 (10:05→22:07)
[2018-08-02] MEDS: SODIUM CHLORIDE FLUSH SYRINGE 10 ML IV SCH ×2 (10:05→22:02)
[2018-08-02] MEDS: HEPARIN SUB-Q SCH ×2 (10:19→21:54)
--- NOTE | 2018-08-02 10:23 | Progress Note ---
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 Diarrhea: Improving Hyponatermia Syndrome: monitor sodium levels closely. 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 Case management Critical care time 32 minutes History Interval history: Patient seen and examined medical records reviewed The patient underwent tracheostomy and PEG placement yesterday Tolerated the procedure well, on ventilatory support PEG in place, Patient is alert and awake Vital signs reviewed Hospitalist Physical - Constitutional Vitals: Temp Pulse Resp BP Pulse Ox 98.7 F 116 H 28 H 116/81 94 08/02/18 04:00 08/02/18 10:04 08/02/18 05:00 08/02/18 10:04 08/02/18 08:41 General appearance: Present: no acute distress, well-nourished, cachectic, disheveled, other (vent dependent) - EENT Eyes: Present: PERRL, EOM intact - Neck Neck: Present: supple, normal ROM - Respiratory Respiratory effort: normal Respiratory: bilateral: diminished, negative: rales, rhonchi, wheezing - Cardiovascular Rhythm: regular Heart Sounds: Present: S1 & S2 - Extremities Extremities: no ischemia, No edema - Abdominal General gastrointestinal: soft, non-tender, non-distended, normal bowel sounds - Integumentary Integumentary: Present: clear, warm - Psychiatric Psychiatric: other (tracheostomy on vent) - Neurologic Neurologic: moves all extremities Results - Labs CBC & Chem 7: 08/02/18 06:30 08/02/18 06:30 Labs: Laboratory Last Values WBC 5.1 K/mm3 (4.5-11.0) 08/02/18 06:30 RBC 2.96 M/mm3 (3.65-5.03) L 08/02/18 06:30 Hgb 9.4 gm/dl (11.8-15.2) L 08/02/18 06:30 Hct 27.6 % (35.5-45.6) L 08/02/18 06:30 MCV 93 fl (84-94) 08/02/18 06:30 MCH 32 pg (28-32) 08/02/18 06:30 MCHC 34 % (32-34) 08/02/18 06:30 RDW 18.4 % (13.2-15.2) H 08/02/18 06:30 Plt Count 408 K/mm3 (140-440) 08/02/18 06:30 Lymph % (Auto) 11.1 % (13.4-35.0) L 08/02/18 06:30 [place] % (Auto) 3.1 % (0.0-7.3) 08/02/18 06:30 Eos % (Auto) 1.1 % (0.0-4.3) 08/02/18 06:30 Baso % (Auto) 0.7 % (0.0-1.8) 08/02/18 06:30 Lymph # 0.6 K/mm3 (1.2-5.4) L 08/02/18 06:30 [place] # 0.2 K/mm3 (0.0-0.8) 08/02/18 06:30 Eos # 0.1 K/mm3 (0.0-0.4) 08/02/18 06:30 Baso # 0.0 K/mm3 (0.0-0.1) 08/02/18 06:30 Add Manual Diff Complete 07/25/18 09:30 Total Counted 100 07/25/18 09:30 Seg Neutrophils % 84.0 % (40.0-70.0) H 08/02/18 06:30 Seg Neuts % (Manual) 63.0 % (40.0-70.0) 07/25/18 09:30 0 % 07/25/18 09:30 35.0 % (13.4-35.0) 07/25/18 09:30 Reactive Lymphs % (Man) 0 % 07/25/18 09:30 1.0 % (0.0-7.3) 07/25/18 09:30 0 % (0.0-4.3) 07/25/18 09:30 0 % (0.0-1.8) 07/25/18 09:30 0 % 07/25/18 09:30 1.0 % 07/25/18 09:30 0 % 07/25/18 09:30 0 % 07/25/18 09:30 Nucleated RBC % Not Reportable 07/25/18 09:30 Seg Neutrophils # 4.3 K/mm3 (1.8-7.7) 08/02/18 06:30 Seg Neutrophils # Man 4.9 K/mm3 (1.8-7.7) 07/25/18 09:30 Band Neutrophils # 0.0 K/mm3 07/25/18 09:30 Abs Lymphs (Manual) 220 cells/uL (850-3900) L 07/12/18 19:29 2.7 K/mm3 (1.2-5.4) 07/25/18 09:30 Abs React Lymphs (Man) 0.0 K/mm3 07/25/18 09:30 0.1 K/mm3 (0.0-0.8) 07/25/18 09:30 0.0 K/mm3 (0.0-0.4) 07/25/18 09:30 0.0 K/mm3 (0.0-0.1) 07/25/18 09:30 0.0 K/mm3 07/25/18 09:30 0.1 K/mm3 07/25/18 09:30 0.0 K/mm3 07/25/18 09:30 Blast Cells # 0.0 K/mm3 07/25/18 09:30 WBC Morphology Not Reportable 07/25/18 09:30 Hypersegmented Neuts Not Reportable 07/25/18 09:30 Hyposegmented Neuts Not Reportable 07/25/18 09:30 Hypogranular Neuts Not Reportable 07/25/18 09:30 Not Reportable 07/25/18 09:30 Not Reportable 07/25/18 09:30 Not Reportable 07/25/18 09:30 Not Reportable 07/25/18 09:30 Not Reportable 07/25/18 09:30 Not Reportable 07/25/18 09:30 Consistent w auto 07/25/18 09:30 Not Reportable 07/25/18 09:30 Plt Clumps, EDTA Not Reportable 07/25/18 09:30 Not Reportable 07/25/18 09:30 Not Reportable 07/25/18 09:30 Not Reportable 07/25/18 09:30 Plt Morphology Comment Not Reportable 07/25/18 09:30 RBC Morphology Not Reportable 07/25/18 09:30 Dimorphic RBCs Not Reportable 07/25/18 09:30 Few 07/25/18 09:30 Not Reportable 07/25/18 09:30 Not Reportable 07/25/18 09:30 1+ 07/25/18 09:30 Not Reportable 07/25/18 09:30 Few 07/25/18 09:30 Not Reportable 07/25/18 09:30 Not Reportable 07/25/18 09:30 Not Reportable 07/25/18 09:30 Rare 07/25/18 09:30 Not Reportable 07/25/18 09:30 Not Reportable 07/25/18 09:30 Not Reportable 07/25/18 09:30 Not Reportable 07/25/18 09:30 Not Reportable 07/25/18 09:30 Not Reportable 07/25/18 09:30 Not Reportable 07/25/18 09:30 Not Reportable 07/25/18 09:30 Not Reportable 07/25/18 09:30 Acanthocytes (Spur) Not Reportable 07/25/18 09:30 Rouleaux Not Reportable 07/25/18 09:30 Not Reportable 07/25/18 09:30 Not Reportable 07/25/18 09:30 Not Reportable 07/25/18 09:30 Not Reportable 07/25/18 09:30 Hem Pathologist Commnt No 07/25/18 09:30 1298.70 ng/mlDDU (0-234) H 07/11/18 15:04 POC ABG pH 7.435 (7.35-7.45) 07/29/18 04:28 POC ABG pCO2 55.1 (35-45) H 07/29/18 04:28 POC ABG pO2 76 (80-105) L 07/29/18 04:28 POC ABG HCO3 37.0 (22-26 mml/L) 07/29/18 04:28 POC ABG Total CO2 39 (23-27mmol/L) 07/29/18 04:28 POC ABG O2 Sat 95 07/29/18 04:28 POC ABG Base Excess 13 ((-2) - (+3)mmol/L) 07/29/18 04:28 50 % 07/29/18 04:28 Sodium 133 mmol/L (137-145) L 08/02/18 06:30 Potassium 3.9 mmol/L (3.6-5.0) 08/02/18 06:30 Chloride 92.7 mmol/L (98-107) L 08/02/18 06:30 Carbon Dioxide 30 mmol/L (22-30) 08/02/18 06:30 14 mmol/L 08/02/18 06:30 BUN 22 mg/dL (9-20) H 08/02/18 06:30 0.5 mg/dL (0.8-1.5) L 08/02/18 06:30 Estimated GFR > 60 ml/min 08/02/18 06:30 44 % 08/02/18 06:30 Glucose 78 mg/dL (75-100) 08/02/18 06:30 POC Glucose 104 (70-105) 07/30/18 15:19 Lactic Acid 1.80 mmol/L (0.7-2.0) 07/11/18 21:01 Calcium 8.1 mg/dL (8.4-10.2) L 08/02/18 06:30 0.20 mg/dL (0.1-1.2) 07/28/18 05:20 AST 104 units/L (5-40) H 07/28/18 05:20 ALT 113 units/L (7-56) H 07/28/18 05:20 89 units/L (35-129) 07/28/18 05:20 731 units/L (91-180) H 07/12/18 19:29 < 0.010 ng/mL (0.00-0.029) 07/11/18 15:04 2.70 mg/dL (0.00-1.30) H 07/15/18 14:09 NT-Pro-B Natriuret Pep 249.7 pg/mL (0-450) 07/11/18 15:04 6.2 g/dL (6.3-8.2) L 07/28/18 05:20 2.5 g/dL (3.9-5) L 07/28/18 05:20 0.7 % 07/28/18 05:20 Triglycerides 209 mg/dL (2-149) H 07/28/18 05:20 Yellow (Yellow) 07/15/18 14:14 Clear (Clear) 07/15/18 14:14 6.0 (5.0-7.0) 07/15/18 14:14 Ur Specific [place] 1.015 (1.003-1.030) 07/15/18 14:14 30 mg/dl mg/dL (Negative) 07/15/18 14:14 Neg mg/dL (Negative) 07/15/18 14:14 Neg mg/dL (Negative) 07/15/18 14:14 Neg (Negative) 07/15/18 14:14 Neg (Negative) 07/15/18 14:14 Neg (Negative) 07/15/18 14:14 < 2.0 mg/dL (<2.0) 07/15/18 14:14 Ur Leukocyte Esterase Neg (Negative) 07/15/18 14:14 2.0 /HPF (0.0-6.0) 07/15/18 14:14 6.0 /HPF (0.0-6.0) 07/15/18 14:14 21 mmol/L 07/19/18 14:27 Lymph Enumerat CD4/CD8 0.04 (0.86-5.00) L 07/12/18 19:29 % CD3 Cells 88 % (57-85) H 07/12/18 19:29 194 cells/uL (840-3060) L 07/12/18 19:29 % CD4 Cells 3 % (30-61) L 07/12/18 19:29 7 cells/uL (490-1740) L 07/12/18 19:29 % CD8 Cells 75 % (12-42) H 07/12/18 19:29 177 cells/uL (180-1170) L 07/12/18 19:29 % CD19 Cells 4 % (6-29) L 07/12/18 19:29 9 cells/uL (110-660) L 07/12/18 19:29 RPR Nonreactive (Nonreactive) 07/12/18 23:38 CMV DNA PCR log copywriter/mL See scanned result 07/15/18 14:09 Hepatitis A IgM Ab Non-reactive (NonReactive) 07/12/18 23:38 Hep Bs Antigen Non-reactive (Negative) 07/12/18 23:38 Hep B Core IgM Ab Non-reactive (NonReactive) 07/12/18 23:38 Non-reactive (NonReactive) 07/12/18 23:38 HIV-1 RNA PCR copies/ml [id number] Copies/mL H 07/12/18 19:29 5.72 Log cps/mL H 07/12/18 19:29 Flexitest 1 H 07/16/18 07:21 Blood Type O POSITIVE 07/24/18 07:50 Antibody Screen Positive 07/24/18 07:50 Prewarmed Antibody Srcn Positive 07/18/18 03:10 Antibody Identification Anti-Adrianna 07/24/18 07:50 Direct Antiglob Test Negative 07/24/18 07:50 NIKUNJ, Poly Interpret Negative 07/24/18 07:50 Crossmatch See Detail 07/24/18 07:50 Active Medications - Current Medications Current Medications: Generic Name Dose Route Start Last Admin Trade Name Freq PRN Reason Stop Dose Admin Acetaminophen 650 mg 07/12/18 18:07 07/21/18 19:30 Tylenol FEEDTUBE 650 mg Q6H PRN Administration Non Cardiac Pain or Temp>100.5 Albuterol 2.5 mg 07/11/18 17:16 07/26/18 12:07 Proventil IH 2.5 mg Q3HRT PRN Administration Shortness Of Breath Lipase/Protease/Amylase 1 each 07/13/18 12:[address] 10,500 Unit FEEDTUBE PRN PRN For Clogged Feeding Tube Azithromycin 1,200 mg 07/26/18 10:00 08/02/18 10:03 Zithromax PO 1,200 mg Th HE Administration Docusate Sodium 100 mg 07/15/18 12:00 08/02/18 10:05 Colace PO 100 mg BID HE Administration Doxazosin Mesylate 2 mg 07/18/18 12:00 08/02/18 10:04 Cardura PO 2 mg QDAY HE Administration Famotidine 20 mg 07/16/18 22:00 08/02/18 10:04 Pepcid PO 20 mg BID HE Administration Fentanyl 50 mcg 07/12/18 00:26 07/20/18 09:02 Sublimaze IV 50 mcg Q10MIN PRN Administration ANALGESIA Heparin Sodium (Porcine) 5,000 unit 07/20/18 10:00 08/01/18 22:00 Heparin SUB-Q 5,000 unit BID [facility] Administration Hydrophilic Ointment 1 applic 07/12/18 13:30 Vaseline Lip Therapy TP Q2HR PRN Dry Lips Fentanyl Citrate 2,000 mcg in 100 mls @ 3.065 mls/hr 07/12/18 01:00 08/02/18 05:56 Fentanyl Drip Premix IV 4 mcg/kg/hr TITR HE 12.26 mls/hr Administration Protocol 1 MCG/KG/HR Propofol 1,000 mg in 100 mls @ 1.839 mls/hr 07/12/18 01:00 07/31/18 18:50 Diprivan 10 Mg/Ml IV 10 mcg/kg/min TITR HE 3.678 mls/hr Administration Protocol 5 MCG/KG/MIN Midazolam HCl 100 mg/ Sodium 100 mls @ 2 mls/hr 07/18/18 13:30 08/01/18 03:43 Chloride IV 3 mg/hr TITR HE 3 mls/hr Administration Protocol 2 MG/HR Midazolam HCl 2 mg 07/16/18 13:06 07/26/18 17:42 Versed IV 2 mg Q2H PRN Administration AGITATION Midazolam HCl 2 mg 07/18/18 12:44 Versed IV Q10MIN PRN Sedation Multi-Ingred Cream/Lotion/Oil/Oint 1 applic 07/12/18 13:30 Artificial Tears Ophth Oint OU Q4HR PRN Dry Eye(s) Quetiapine Fumarate 300 mg 07/27/18 22:00 08/02/18 10:04 Seroquel PO 300 mg BID HE Administration Senna 17.2 mg 07/26/18 22:00 08/01/18 00:24 Senokot PO 17.2 mg QHS HE Administration Simple Syrup 15 ml 07/13/18 12:30 Simple Syrup FEEDTUBE PRN PRN Hypoglycemia Simple Syrup 30 ml 07/13/18 12:30 Simple Syrup FEEDTUBE PRN PRN Hypoglycemia Sodium Bicarbonate 325 mg 07/13/18 12:30 Sodium Bicarbonate FEEDTUBE PRN PRN For Clogged Feeding Tube Sodium Chloride 10 ml 07/11/18 22:00 08/02/18 10:05 Sodium Chloride Flush Syringe 10 Ml IV 10 ml BID HE Administration Sodium Chloride 10 ml 07/11/18 17:16 07/18/18 09:00 Sodium Chloride Flush Syringe 10 Ml IV 10 ml PRN PRN Administration LINE FLUSH Trimethoprim/Sulfamethoxazole 160 mg 08/01/18 10:00 08/02/18 10:03 Bactrim 200-40 Mg/5 Ml PO 160 mg DAILY HE Administration Nutrition/Malnutrition Assess - Dietary Evaluation Nutrition/Malnutrition Findings: Nutrition Notes Start: 07/12/18 09:38 Freq: Status: Active Protocol: Document 08/01/18 16:13 RM (Rec: 08/01/18 16:17 RM [id number]) Nutrition Notes Initial or Follow up Reassessment Current Diagnosis Sepsis,Respiratory Failure Other Pertinent Diagnosis Bilat pneu, HIV/AIDS, Diarrhea Current Diet Nepro at 45 ml/hr Labs/Tests K 4.5 Pertinent Medications Reviewed Height 5 ft 11 in Weight 51 kg [place] Body Weight (kg) 78.18 BMI 15.7 Subjective/Other Information Trach being placed at bedside at time of visit. Pump off and formula not infusing. Per nurse pt was tolerating Nepro at 45 ml/hr prior to trach placement. Percent of energy/protein needs met: 100%/100% Burn Absent Trauma Absent #2 Nutrition Diagnosis Inadequate oral intake Diagnosis Progress(for reassessment Continues documentation) #1 Nutrition Diagnosis Malnutrition Diagnosis Progress(for reassessment Continues documentation) Is patient on ventilator? Yes Is Patient Ambulatory and/or Out of Bed No REE-([facility]-confined to bed) 3527.400 Calculation Used for Recommendations [facility] Additional Notes Pro needs 1.2-2g/k-130g/ day Fluid needs 1ml/kcal Nutrition Intervention Nutrition Support: Continue Nepro at 45ml/hr. Flush with 150ml q4h Kcal 1,944 Protein (gm) 87 Fluid (mL) 785 Goal #1 TF tolerance Goal #2 TF to continue to meet 90-100% energy and pro needs Goal #3 Wt maintenance and/or gain Anticipated Discharge Needs: Unable to determine at this time Follow-Up By: 08/07/18 Additional Comments Follow for TF tolerance, wt
[2018-08-02] MEDS ORDERED: PANCREAZE DR 10,500 UNIT FEEDTUBE PRN ×2 (10:24→15:42)
[2018-08-02] MEDS ORDERED: SIMPLE SYRUP FEEDTUBE PRN ×4 (10:24→15:42)
[2018-08-02] MEDS ORDERED: SODIUM BICARBONATE FEEDTUBE PRN ×2 (10:24→15:42)
[2018-08-02] MEDS: VALGANCICLOVIR FEEDTUBE SCH ×2 (11:17→21:45)
[2018-08-02] MEDS: DIPRIVAN 10 MG/ML 1,000 MG/100 ML BOTTLE IV SCH (21:49)
[2018-08-02] MEDS: SENOKOT PO SCH (22:01)
[2018-08-03] MEDS: fentaNYL DRIP Premix 2,000 MCG/100 ML BAG IV SCH ×4 (05:58→21:36)
[2018-08-03 06:50] LABS: Basophils % (Auto) 0.8 % (0.0-1.8); Eosinophils # (Auto) 0.1 K/mm3 (0.0-0.4); Eosinophils % (Auto) 1.2 % (0.0-4.3); Hematocrit 26.3 % (35.5-45.6); Lymphocytes # (Auto) 0.7 K/mm3 (1.2-5.4); Lymphocytes % (Auto) 15.9 % (13.4-35.0); Mean Corpuscular HGB Conc 34 % (32-34); Mean Corpuscular Volume 94 fl (84-94); Monocytes # (Auto) 0.1 K/mm3 (0.0-0.8); Monocytes % (Auto) 3.1 % (0.0-7.3); Platelet Count 404 K/mm3 (140-440); Red Blood Count 2.78 M/mm3 (3.65-5.03); Red Cell Distribution Width 19.6 % (13.2-15.2)
[2018-08-03 07:17] LABS: Albumin 2.4 g/dL (3.9-5); BUN/Creatinine Ratio 57; Blood Urea Nitrogen 17 mg/dL (9-20); Hemolysis Index 27
[2018-08-03 07:50] LABS: Alanine Aminotransferase 50 units/L (7-56)
[2018-08-03] MEDS: PEPCID PO SCH ×2 (10:06→23:38)
[2018-08-03] MEDS: BACTRIM 200-40 MG/5 ML PO SCH (10:06)
[2018-08-03] MEDS: VALGANCICLOVIR FEEDTUBE SCH ×2 (10:06→23:39)
[2018-08-03] MEDS: HEPARIN SUB-Q SCH (10:07)
[2018-08-03] MEDS: SODIUM CHLORIDE FLUSH SYRINGE 10 ML IV SCH (10:07)
[2018-08-03] MEDS: COLACE PO SCH (10:44)
--- NOTE | 2018-08-03 11:08 | Progress Note ---
Assessment and Plan Cultures: Blood culture 07/11/2018 no growth today. Cryptococcal antigen : negative MRSA PCR: positive Blood culture 07/15/2018: in progress Urine culture 07/15/2018: no growth in 24 hours Sputum culture 07/15/18: MRSA, Jannette CMV PCR 07/15/2018 33,392 copies Assessment: 37 y/o male currently in senior care with history of HIV infection of unknown duration, noncompliant with antiretroviral medication, severe malnutrition; admitted on 07/11/2018, brought by law enforcement, due to 2-week history of shortness of breath, generalized weakness and productive cough: 1) Sepsis with new septic shock: off pressors. no fever. Etiology most likely pneumonia. CRP 2.7. Procalcitonin 3.09. 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 CMV +/- MRSA. Sputum culture 07/11/2018 no growth today. Chest CT showed bilateral patchy and somewhat confluent alveolar infiltrates and interstitial infiltrates. No effusions. Mild cardiomegaly. Sputum culture 07/15 grew MRSA and Jannette. Completed linezolid x 10 days until 07/23. S/p 21 days bactrim IV until 07/31/2018. 3) HIV, presumed AIDS: Patient has not taken his HIV medication for at least 6 months prior due to his incarceration. On admission he reported 40lbs unintentional weight loss for 2 months and intermittent loose stools over the past 2 weeks. VL 523,000/ CD4=7. Pneumocytosis Jirovecii positive. RPR nonreactive. Hepatitis panel negative. 4) Diarrhea: ? possible opportunistic infection. resolved 5) Acute respiratory failure: not better, from pneumonia. improving s/p trach/PEG placement 08/01 6) Anemia: s/p transfusion 7) Facial rash: ? 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 on 07/15/2018 Recommendations: - monitor facial rash, apply low potency topical steroid - continue valganciclovir 900 mg PO BID D12 to cover CMV viremia - re-check CMV DNA PCR on 08/06 - continue bactrim DS 1 tab q day for PJP prophylaxis - contact isolation for MRSA - HIV genotype pending - continue azithromycin 1200 mg PO qweek for MAC prophylaxis Will follow Dr Miner is covering this weekend Ana Kaur MD Infectious Diseases [employer] [facility] ([facility]) M [phone] O [phone] Subjective Date of service: 08/03/18 Principal diagnosis: Acute hypoxemic resp failure; Bilateral pneumonia (PJP); HIV/AIDS Interval history: Alert follows commands, on the vent via trach, FiO2 40%, tamx 100 ROS unable to obtain Objective - Exam Narrative Exam: General appearance: alert, follows commands on the ventilator Eyes: anicteric sclerae, moist conjunctivae; no lid-lag; PERRLA HENT: Atraumatic; +new papular/scaly rash on upper lip and nasalabial folds, +ulcer in upper lip. oropharynx clear Neck: +trach Lungs: ryland rhonchi CV: RRR Abdomen: Soft, +PEG Extremities: No peripheral edema or extremity lymphadenopathy Skin: Normal temperature, turgor and texture; no rash, ulcers or subcutaneous nodules Psych: no agitated. Neuro: alert follows commands, moving all extr - Constitutional Vitals: Vital Signs Temp Pulse Resp BP Pulse Ox 98.7 F 116 H 19 91/53 96 08/03/18 08:00 08/03/18 11:00 08/03/18 11:00 08/03/18 11:00 08/03/18 11:00 Temperature -Last 24 Hours Temperature 98.7 F Temperature 98.5 F Temperature 98.3 F Temperature 100.0 F Temperature 100.0 F Temperature 98.9 F Temperature 99.4 F - Labs CBC & Chem 7: 08/03/18 06:30 08/03/18 06:30 Labs: Abnormal lab results 08/03/18 08/03/18 Range/Units 06:30 06:30 RBC 2.78 L (3.65-5.03) M/mm3 Hgb 9.0 L (11.8-15.2) gm/dl Hct 26.3 L (35.5-45.6) % RDW 19.6 H (13.2-15.2) % Lymph # 0.7 L (1.2-5.4) K/mm3 Seg Neutrophils % 79.0 H (40.0-70.0) % Sodium 131 L (137-145) mmol/L Chloride 92.0 L (98-107) mmol/L Creatinine 0.3 L (0.8-1.5) mg/dL Calcium 8.0 L (8.4-10.2) mg/dL Total Protein 6.0 L (6.3-8.2) g/dL Albumin 2.4 L (3.9-5) g/dL
[2018-08-03] MEDS: CARDURA PO SCH (11:20)
--- NOTE | 2018-08-03 11:50 | Progress Note ---
Assessment and Plan Acute Hypoxic respiratory failure on mechanical ventilation Severe sepsis with septic shock Severe ARDS Sepsis present on admission with grater than 2 SOFA criteria PJP (pneumocystis jiroveci pneumonia) Diarrhea Hyponatermia Syndrome Hyperkalemia Moderate Protein Malnutrition AIDS ANEMIA Elevated d/DIMER- NO PE noted Nicotine dependance/Tobacco use disorder Start SBT trials today. FIO2 is currently at 45% Continue all supportive care Stop propofol adn midazolam, wean fentanyl Discussed extensively in ICU-IDT rounds Continue all care as documented below -Transfuse to keep HgB>7g/dL as indicated -Titrate sedation to RASS of 0 to -1 -VAP bundle addressed - Continue lung protective strategies per ARDS net protocol -Permissive hypercapnia is acceptable - Antibiotics, anti-infectives per ID service. -ART per ID service, Antibiotic prophylaxis for OI per ID - Continue bronchodilators with pulmonary hygiene per RT - Continue full MVS -CXR and ABG in am -Wean FIO2 for O2 sats>90%, at FIO2 of 45% at this time. Decrease PEEP to 6 - Monitor renal indices closely - Avoid nephrotoxic agents - Strict intake and output monitoring - Tube feedings, on Vital AF at 65ml/hour - Aspiration precautions. HOB >40 -Stress ulcer prophylaxis -VTE prophylaxis - Accuchecks with glycemic control. Target glucose of 140-180 mg/dL -Supportive transfusions as indicated for HgB<7g/dL - Maintenance of sleep -wake cycle - Mobility as tolerated by hemodynamics - Influenza and pneumonia vaccination per protocol ..care plan discussed at length with RN/RT at the bedside -Discussed in ICU-IDT rounds The high probability of a clinically significant, sudden or life threatening deterioration of the [pulmonary, cardiovascular] system(s) required my full and direct attention, intervention and personal management. The aggregate critical care time was [31] minutes. This time is in addition to time spent performing reported procedures but includes the following: [x] Data Review and interpretation [x] Patient assessment and monitoring of vital signs [x] Documentation [x] Medication orders and management Subjective Date of service: 08/03/18 Principal diagnosis: Acute hypoxemic resp failure; Bilateral pneumonia (PJP); HIV/AIDS Interval history: Patient is seen today for: Acute hypoxemic respiratory failure, on mechanical ventilatory support; Bilateral pneumonia, high suspicion for Pneumocystis jiroveci pneumonia; Human immunodeficiency virus/acquired immunodeficiency syndrome,noncompliant with therapy; Hyponatremia; Severe protein calorie malnutrition. Seen and examined at bedside; 24-hour events reviewed; nursing and respiratory care staff consulted; no adverse overnight events reported to me; remains critically ill with high ventilatory demands and on critical drips. Awake and alert, attempting to vocalize. No fevers, tolerating tube feedings, weaning FIO2, tolerating slow weaning of PEEP s/p trachesotomy, s/p PEG Objective Vital Signs - 12hr 08/03/18 08/03/18 08/03/18 00:00 01:00 02:00 Temperature 98.3 F Pulse Rate 107 H 111 H 106 H Pulse Rate [ From Monitor] Pulse Rate [ Right Dorsalis Pedis] Respiratory 18 24 17 Rate Blood Pressure 94/64 104/74 93/59 O2 Sat by Pulse 97 95 99 Oximetry O2 Sat by Pulse Oximetry [ Assessment] 08/03/18 08/03/18 08/03/18 03:00 03:12 03:21 Temperature Pulse Rate 101 H 100 H Pulse Rate [ From Monitor] Pulse Rate [ Right Dorsalis Pedis] Respiratory 17 Rate Blood Pressure 87/45 85/40 O2 Sat by Pulse 98 98 Oximetry O2 Sat by Pulse 98 Oximetry [ Assessment] 08/03/18 08/03/18 08/03/18 04:00 05:00 06:00 Temperature 98.5 F Pulse Rate 98 H 103 H 96 H Pulse Rate [ 98 H From Monitor] Pulse Rate [ 98 H Right Dorsalis Pedis] Respiratory 16 19 18 Rate Blood Pressure 92/43 85/44 92/50 O2 Sat by Pulse 97 95 98 Oximetry O2 Sat by Pulse Oximetry [ Assessment] 08/03/18 08/03/18 08/03/18 07:00 08:00 09:00 Temperature 98.7 F Pulse Rate 111 H 105 H 94 H Pulse Rate [ From Monitor] Pulse Rate [ Right Dorsalis Pedis] Respiratory 19 27 H 18 Rate Blood Pressure 109/68 104/63 98/57 O2 Sat by Pulse 97 94 95 Oximetry O2 Sat by Pulse 100 Oximetry [ Assessment] 08/03/18 08/03/18 08/03/18 09:32 10:00 10:45 Temperature Pulse Rate 101 H 101 H 111 H Pulse Rate [ From Monitor] Pulse Rate [ Right Dorsalis Pedis] Respiratory 27 H Rate Blood Pressure 102/55 109/65 108/68 O2 Sat by Pulse 97 96 97 Oximetry O2 Sat by Pulse Oximetry [ Assessment] 08/03/18 08/03/18 11:00 11:20 Temperature Pulse Rate 116 H 100 H Pulse Rate [ From Monitor] Pulse Rate [ Right Dorsalis Pedis] Respiratory 19 Rate Blood Pressure 91/53 99/55 O2 Sat by Pulse 96 Oximetry O2 Sat by Pulse Oximetry [ Assessment] Constitutional: no acute distress, other (young AAM; normocephalic and atraumatic) Eyes: non-icteric ENT: oropharynx moist, other (s/p trachesotomy) Neck: supple, no lymphadenopathy, no JVD, other (no thyromegaly) Effort: mildly labored Ascultation: Bilateral: diminished breath sounds, rales Percussion: Bilateral: not dull Cardiovascular: regular rate and rhythm, other (S1,S2, no murmurs, gallops or rubs) Gastrointestinal: normoactive bowel sounds, soft, non-tender, non-distended, other (PEG tube in place) Integumentary: normal Extremities: no cyanosis, no edema, pulses normal, no ischemia or petechiae Neurologic: normal mental status, non-focal exam, pupils equal and round, CN II- XII normal, motor strength normal and Psychiatric: mood appropriate, affect normal CBC and BMP: 08/03/18 06:30 08/03/18 06:30 ABG, PT/INR, D-dimer: ABG POC ABG pH 7.432 (7.35-7.45) 08/02/18 14:13 POC ABG pCO2 44.5 (35-45) 08/02/18 14:13 POC ABG pO2 82 (80-105) 08/02/18 14:13 POC ABG HCO3 29.7 (22-26 mml/L) 08/02/18 14:13 POC ABG Total CO2 31 (23-27mmol/L) 08/02/18 14:13 POC ABG O2 Sat 96 08/02/18 14:13 PT/INR, D-dimer 1298.70 ng/mlDDU (0-234) H 07/11/18 15:04 Abnormal lab findings: Abnormal Labs 07/11/18 07/11/18 07/11/18 14:06 14:06 15:04 RBC 3.30 L Hgb 9.6 L Hct 28.7 L MCHC RDW Plt Count Lymph % (Auto) Lymph # Seg Neutrophils % Abs Lymphs (Manual) D-Dimer 1298.70 H POC ABG pH POC ABG pCO2 POC ABG pO2 Sodium 132 L Potassium Chloride Carbon Dioxide BUN Creatinine 0.6 L Glucose 103 H POC Glucose Calcium 7.3 L AST ALT Lactate Dehydrogenase C-Reactive Protein Total Protein Albumin 2.1 L Triglycerides Lymph Enumerat CD4/CD8 % CD3 Cells Absolute CD3 Count % CD4 Cells Absolute CD4 Count % CD8 Cells Absolute CD8 Count % CD19 Cells Absolute CD19 Count HIV-1 RNA PCR copies/ml HIV-1 RNA (PCR) log Miscellaneous Test Crossmatch 07/11/18 07/11/18 07/12/18 17:36 22:15 00:25 RBC Hgb Hct MCHC RDW Plt Count Lymph % (Auto) Lymph # Seg Neutrophils % Abs Lymphs (Manual) D-Dimer POC ABG pH 7.289 L POC ABG pCO2 POC ABG pO2 66 L Sodium Potassium Chloride Carbon Dioxide BUN Creatinine Glucose POC Glucose Calcium AST ALT Lactate Dehydrogenase 591 H C-Reactive Protein Total Protein Albumin Triglycerides Lymph Enumerat CD4/CD8 % CD3 Cells Absolute CD3 Count % CD4 Cells Absolute CD4 Count % CD8 Cells Absolute CD8 Count % CD19 Cells Absolute CD19 Count HIV-1 RNA PCR copies/ml HIV-1 RNA (PCR) log Miscellaneous Test see below H Crossmatch 07/12/18 07/12/18 07/12/18 00:41 05:37 19:29 RBC Hgb Hct MCHC RDW Plt Count Lymph % (Auto) Lymph # Seg Neutrophils % Abs Lymphs (Manual) D-Dimer POC ABG pH 7.302 L 7.275 L POC ABG pCO2 47.1 H POC ABG pO2 Sodium Potassium Chloride Carbon Dioxide BUN Creatinine Glucose POC Glucose Calcium AST ALT Lactate Dehydrogenase 731 H C-Reactive Protein Total Protein Albumin Triglycerides Lymph Enumerat CD4/CD8 % CD3 Cells Absolute CD3 Count % CD4 Cells Absolute CD4 Count % CD8 Cells Absolute CD8 Count % CD19 Cells Absolute CD19 Count HIV-1 RNA PCR copies/ml HIV-1 RNA (PCR) log Miscellaneous Test Crossmatch 07/12/18 07/12/18 07/13/18 19:29 19:29 04:03 RBC Hgb Hct MCHC RDW Plt Count Lymph % (Auto) Lymph # Seg Neutrophils % Abs Lymphs (Manual) 220 L D-Dimer POC ABG pH 7.254 L POC ABG pCO2 49.2 H POC ABG pO2 Sodium Potassium Chloride Carbon Dioxide BUN Creatinine Glucose POC Glucose Calcium AST ALT Lactate Dehydrogenase C-Reactive Protein Total Protein Albumin Triglycerides Lymph Enumerat CD4/CD8 0.04 L % CD3 Cells 88 H Absolute CD3 Count 194 L % CD4 Cells 3 L Absolute CD4 Count 7 L % CD8 Cells 75 H Absolute CD8 Count 177 L % CD19 Cells 4 L Absolute CD19 Count 9 L HIV-1 RNA PCR copies/ml 029998 H HIV-1 RNA (PCR) log 5.72 H Miscellaneous Test Crossmatch 07/13/18 07/13/18 07/13/18 05:46 12:23 18:31 RBC Hgb Hct MCHC RDW Plt Count Lymph % (Auto) Lymph # Seg Neutrophils % Abs Lymphs (Manual) D-Dimer POC ABG pH POC ABG pCO2 POC ABG pO2 Sodium Potassium Chloride Carbon Dioxide BUN Creatinine Glucose POC Glucose 68 L 106 H 112 H Calcium AST ALT Lactate Dehydrogenase C-Reactive Protein Total Protein Albumin Triglycerides Lymph Enumerat CD4/CD8 % CD3 Cells Absolute CD3 Count % CD4 Cells Absolute CD4 Count % CD8 Cells Absolute CD8 Count % CD19 Cells Absolute CD19 Count HIV-1 RNA PCR copies/ml HIV-1 RNA (PCR) log Miscellaneous Test Crossmatch 07/14/18 07/14/18 07/14/18 04:19 05:36 05:36 RBC 2.99 L Hgb 8.8 L Hct 25.7 L MCHC RDW 15.5 H Plt Count Lymph % (Auto) Lymph # Seg Neutrophils % Abs Lymphs (Manual) D-Dimer POC ABG pH 7.337 L POC ABG pCO2 POC ABG pO2 Sodium 135 L Potassium Chloride Carbon Dioxide 21 L BUN Creatinine 0.7 L Glucose 123 H POC Glucose Calcium 8.2 L AST ALT Lactate Dehydrogenase C-Reactive Protein Total Protein Albumin Triglycerides Lymph Enumerat CD4/CD8 % CD3 Cells Absolute CD3 Count % CD4 Cells Absolute CD4 Count % CD8 Cells Absolute CD8 Count % CD19 Cells Absolute CD19 Count HIV-1 RNA PCR copies/ml HIV-1 RNA (PCR) log Miscellaneous Test Crossmatch 07/14/18 07/14/18 07/14/18 12:14 14:33 17:18 RBC Hgb Hct MCHC RDW Plt Count Lymph % (Auto) Lymph # Seg Neutrophils % Abs Lymphs (Manual) D-Dimer POC ABG pH 7.325 L POC ABG pCO2 POC ABG pO2 75 L Sodium Potassium Chloride Carbon Dioxide BUN Creatinine Glucose POC Glucose 174 H 114 H Calcium AST ALT Lactate Dehydrogenase C-Reactive Protein Total Protein Albumin Triglycerides Lymph Enumerat CD4/CD8 % CD3 Cells Absolute CD3 Count % CD4 Cells Absolute CD4 Count % CD8 Cells Absolute CD8 Count % CD19 Cells Absolute CD19 Count HIV-1 RNA PCR copies/ml HIV-1 RNA (PCR) log Miscellaneous Test Crossmatch 07/15/18 07/15/18 07/15/18 00:17 12:29 12:29 RBC 2.64 L Hgb 7.5 L Hct 22.9 L MCHC RDW 15.4 H Plt Count Lymph % (Auto) 7.0 L Lymph # 0.4 L Seg Neutrophils % 89.6 H Abs Lymphs (Manual) D-Dimer POC ABG pH POC ABG pCO2 POC ABG pO2 Sodium Potassium Chloride Carbon Dioxide BUN Creatinine 0.6 L Glucose 124 H POC Glucose 113 H Calcium 7.3 L AST ALT Lactate Dehydrogenase C-Reactive Protein Total Protein Albumin Triglycerides Lymph Enumerat CD4/CD8 % CD3 Cells Absolute CD3 Count % CD4 Cells Absolute CD4 Count % CD8 Cells Absolute CD8 Count % CD19 Cells Absolute CD19 Count HIV-1 RNA PCR copies/ml HIV-1 RNA (PCR) log Miscellaneous Test Crossmatch 07/15/18 07/16/18 07/16/18 14:09 04:46 07:21 RBC Hgb Hct MCHC RDW Plt Count Lymph % (Auto) Lymph # Seg Neutrophils % Abs Lymphs (Manual) D-Dimer POC ABG pH 7.282 L POC ABG pCO2 52.6 H POC ABG pO2 63 L Sodium Potassium Chloride Carbon Dioxide BUN Creatinine Glucose POC Glucose Calcium AST ALT Lactate Dehydrogenase C-Reactive Protein 2.70 H Total Protein Albumin Triglycerides Lymph Enumerat CD4/CD8 % CD3 Cells Absolute CD3 Count % CD4 Cells Absolute CD4 Count % CD8 Cells Absolute CD8 Count % CD19 Cells Absolute CD19 Count HIV-1 RNA PCR copies/ml HIV-1 RNA (PCR) log Miscellaneous Test Flexitest 1 H Crossmatch 07/16/18 07/16/18 07/16/18 07:21 07:21 16:16 RBC 2.48 L Hgb 7.2 L Hct 21.5 L MCHC RDW 15.7 H Plt Count Lymph % (Auto) Lymph # Seg Neutrophils % Abs Lymphs (Manual) D-Dimer POC ABG pH 7.251 L POC ABG pCO2 62.2 H POC ABG pO2 Sodium 136 L Potassium Chloride Carbon Dioxide BUN Creatinine 0.6 L Glucose 118 H POC Glucose Calcium 7.5 L AST ALT Lactate Dehydrogenase C-Reactive Protein Total Protein Albumin Triglycerides Lymph Enumerat CD4/CD8 % CD3 Cells Absolute CD3 Count % CD4 Cells Absolute CD4 Count % CD8 Cells Absolute CD8 Count % CD19 Cells Absolute CD19 Count HIV-1 RNA PCR copies/ml HIV-1 RNA (PCR) log Miscellaneous Test Crossmatch 07/17/18 07/18/18 07/18/18 04:01 01:10 03:10 RBC 2.20 L Hgb 6.5 L Hct 19.2 L* MCHC RDW 16.0 H Plt Count Lymph % (Auto) 7.2 L Lymph # 0.5 L Seg Neutrophils % 89.9 H Abs Lymphs (Manual) D-Dimer POC ABG pH 7.245 L POC ABG pCO2 63.8 H POC ABG pO2 75 L Sodium Potassium Chloride Carbon Dioxide BUN Creatinine Glucose POC Glucose Calcium AST ALT Lactate Dehydrogenase C-Reactive Protein Total Protein Albumin Triglycerides Lymph Enumerat CD4/CD8 % CD3 Cells Absolute CD3 Count % CD4 Cells Absolute CD4 Count % CD8 Cells Absolute CD8 Count % CD19 Cells Absolute CD19 Count HIV-1 RNA PCR copies/ml HIV-1 RNA (PCR) log Miscellaneous Test Crossmatch See Detail 07/18/18 07/18/18 07/18/18 04:54 05:02 12:59 RBC Hgb Hct MCHC RDW Plt Count Lymph % (Auto) Lymph # Seg Neutrophils % Abs Lymphs (Manual) D-Dimer POC ABG pH 7.615 H POC ABG pCO2 32.6 L 48.8 H POC ABG pO2 79 L 118 H Sodium Potassium Chloride Carbon Dioxide BUN Creatinine Glucose POC Glucose 164 H Calcium AST ALT Lactate Dehydrogenase C-Reactive Protein Total Protein Albumin Triglycerides Lymph Enumerat CD4/CD8 % CD3 Cells Absolute CD3 Count % CD4 Cells Absolute CD4 Count % CD8 Cells Absolute CD8 Count % CD19 Cells Absolute CD19 Count HIV-1 RNA PCR copies/ml HIV-1 RNA (PCR) log Miscellaneous Test Crossmatch 07/18/18 07/18/18 07/19/18 18:25 20:39 03:53 RBC Hgb Hct MCHC RDW Plt Count Lymph % (Auto) Lymph # Seg Neutrophils % Abs Lymphs (Manual) D-Dimer POC ABG pH 7.339 L POC ABG pCO2 59.9 H 65.0 H POC ABG pO2 69 L Sodium Potassium Chloride Carbon Dioxide BUN Creatinine Glucose POC Glucose 155 H Calcium AST ALT Lactate Dehydrogenase C-Reactive Protein Total Protein Albumin Triglycerides Lymph Enumerat CD4/CD8 % CD3 Cells Absolute CD3 Count % CD4 Cells Absolute CD4 Count % CD8 Cells Absolute CD8 Count % CD19 Cells Absolute CD19 Count HIV-1 RNA PCR copies/ml HIV-1 RNA (PCR) log Miscellaneous Test Crossmatch 07/19/18 07/19/18 07/19/18 08:10 08:10 10:52 RBC 2.51 L Hgb 7.4 L Hct 22.0 L MCHC RDW 15.5 H Plt Count Lymph % (Auto) Lymph # Seg Neutrophils % Abs Lymphs (Manual) D-Dimer POC ABG pH POC ABG pCO2 POC ABG pO2 Sodium 130 L Potassium Chloride 89.0 L Carbon Dioxide 33 H BUN Creatinine 0.4 L Glucose 150 H POC Glucose 173 H Calcium 7.5 L AST ALT Lactate Dehydrogenase C-Reactive Protein Total Protein Albumin Triglycerides Lymph Enumerat CD4/CD8 % CD3 Cells Absolute CD3 Count % CD4 Cells Absolute CD4 Count % CD8 Cells Absolute CD8 Count % CD19 Cells Absolute CD19 Count HIV-1 RNA PCR copies/ml HIV-1 RNA (PCR) log Miscellaneous Test Crossmatch 07/19/18 07/19/18 07/20/18 17:06 23:47 04:37 RBC Hgb Hct MCHC RDW Plt Count Lymph % (Auto) Lymph # Seg Neutrophils % Abs Lymphs (Manual) D-Dimer POC ABG pH POC ABG pCO2 58.5 H POC ABG pO2 67 L Sodium Potassium Chloride Carbon Dioxide BUN Creatinine Glucose POC Glucose 117 H 114 H Calcium AST ALT Lactate Dehydrogenase C-Reactive Protein Total Protein Albumin Triglycerides Lymph Enumerat CD4/CD8 % CD3 Cells Absolute CD3 Count % CD4 Cells Absolute CD4 Count % CD8 Cells Absolute CD8 Count % CD19 Cells Absolute CD19 Count HIV-1 RNA PCR copies/ml HIV-1 RNA (PCR) log Miscellaneous Test Crossmatch 07/20/18 07/20/18 07/21/18 06:20 06:20 04:18 RBC 2.69 L Hgb 7.8 L Hct 23.6 L MCHC RDW 15.5 H Plt Count Lymph % (Auto) Lymph # Seg Neutrophils % Abs Lymphs (Manual) D-Dimer POC ABG pH 7.456 H POC ABG pCO2 60.4 H POC ABG pO2 64 L Sodium 134 L Potassium Chloride 89.2 L Carbon Dioxide 38 H BUN Creatinine 0.7 L D Glucose 120 H POC Glucose Calcium 7.6 L AST ALT Lactate Dehydrogenase C-Reactive Protein Total Protein Albumin Triglycerides Lymph Enumerat CD4/CD8 % CD3 Cells Absolute CD3 Count % CD4 Cells Absolute CD4 Count % CD8 Cells Absolute CD8 Count % CD19 Cells Absolute CD19 Count HIV-1 RNA PCR copies/ml HIV-1 RNA (PCR) log Miscellaneous Test Crossmatch 07/21/18 07/21/18 07/22/18 04:35 04:35 04:16 RBC 2.62 L 2.37 L Hgb 7.7 L 7.0 L Hct 23.1 L 21.1 L MCHC RDW 15.4 H Plt Count Lymph % (Auto) Lymph # Seg Neutrophils % Abs Lymphs (Manual) D-Dimer POC ABG pH POC ABG pCO2 POC ABG pO2 Sodium 129 L Potassium 5.3 H Chloride 85.3 L Carbon Dioxide 38 H BUN Creatinine 0.4 L Glucose 108 H POC Glucose Calcium 8.0 L AST ALT Lactate Dehydrogenase C-Reactive Protein Total Protein Albumin Triglycerides Lymph Enumerat CD4/CD8 % CD3 Cells Absolute CD3 Count % CD4 Cells Absolute CD4 Count % CD8 Cells Absolute CD8 Count % CD19 Cells Absolute CD19 Count HIV-1 RNA PCR copies/ml HIV-1 RNA (PCR) log Miscellaneous Test Crossmatch 07/22/18 07/23/18 07/23/18 04:16 03:25 12:45 RBC Hgb Hct MCHC RDW Plt Count Lymph % (Auto) Lymph # Seg Neutrophils % Abs Lymphs (Manual) D-Dimer POC ABG pH POC ABG pCO2 69.4 H POC ABG pO2 Sodium 132 L 125 L D Potassium 5.4 H 5.3 H Chloride 87.4 L 80.3 L Carbon Dioxide 38 H 38 H BUN Creatinine 0.4 L 0.3 L Glucose 117 H 124 H POC Glucose Calcium 7.5 L 7.4 L AST ALT Lactate Dehydrogenase C-Reactive Protein Total Protein Albumin Triglycerides Lymph Enumerat CD4/CD8 % CD3 Cells Absolute CD3 Count % CD4 Cells Absolute CD4 Count % CD8 Cells Absolute CD8 Count % CD19 Cells Absolute CD19 Count HIV-1 RNA PCR copies/ml HIV-1 RNA (PCR) log Miscellaneous Test Crossmatch 07/23/18 07/24/18 07/24/18 23:52 04:30 04:30 RBC 2.12 L Hgb 6.3 L Hct 18.9 L* MCHC RDW Plt Count Lymph % (Auto) Lymph # Seg Neutrophils % Abs Lymphs (Manual) D-Dimer POC ABG pH POC ABG pCO2 POC ABG pO2 Sodium 127 L Potassium 5.2 H Chloride 83.9 L Carbon Dioxide 39 H BUN Creatinine 0.3 L Glucose POC Glucose 118 H Calcium 7.5 L AST ALT Lactate Dehydrogenase C-Reactive Protein Total Protein Albumin Triglycerides Lymph Enumerat CD4/CD8 % CD3 Cells Absolute CD3 Count % CD4 Cells Absolute CD4 Count % CD8 Cells Absolute CD8 Count % CD19 Cells Absolute CD19 Count HIV-1 RNA PCR copies/ml HIV-1 RNA (PCR) log Miscellaneous Test Crossmatch 07/24/18 07/24/18 07/24/18 05:11 05:30 07:50 RBC Hgb Hct MCHC RDW Plt Count Lymph % (Auto) Lymph # Seg Neutrophils % Abs Lymphs (Manual) D-Dimer POC ABG pH 7.462 H POC ABG pCO2 58.7 H POC ABG pO2 79 L Sodium Potassium Chloride Carbon Dioxide BUN Creatinine Glucose POC Glucose 145 H Calcium AST ALT Lactate Dehydrogenase C-Reactive Protein Total Protein Albumin Triglycerides Lymph Enumerat CD4/CD8 % CD3 Cells Absolute CD3 Count % CD4 Cells Absolute CD4 Count % CD8 Cells Absolute CD8 Count % CD19 Cells Absolute CD19 Count HIV-1 RNA PCR copies/ml HIV-1 RNA (PCR) log Miscellaneous Test Crossmatch See Detail 07/25/18 07/25/18 07/26/18 09:30 09:30 00:18 RBC 2.99 L Hgb 9.1 L Hct 27.0 L D MCHC RDW Plt Count Lymph % (Auto) Lymph # Seg Neutrophils % Abs Lymphs (Manual) D-Dimer POC ABG pH POC ABG pCO2 POC ABG pO2 Sodium 131 L 135 L Potassium 5.1 H 5.5 H Chloride 84.4 L 88.4 L Carbon Dioxide 39 H 38 H BUN Creatinine 0.3 L 0.3 L Glucose 133 H POC Glucose Calcium 8.0 L AST ALT Lactate Dehydrogenase C-Reactive Protein Total Protein Albumin Triglycerides Lymph Enumerat CD4/CD8 % CD3 Cells Absolute CD3 Count % CD4 Cells Absolute CD4 Count % CD8 Cells Absolute CD8 Count % CD19 Cells Absolute CD19 Count HIV-1 RNA PCR copies/ml HIV-1 RNA (PCR) log Miscellaneous Test Crossmatch 07/26/18 07/26/18 07/26/18 04:07 05:50 05:50 RBC 3.01 L Hgb 9.4 L Hct 27.2 L MCHC 35 H RDW Plt Count Lymph % (Auto) 10.4 L Lymph # 0.9 L Seg Neutrophils % 84.2 H Abs Lymphs (Manual) D-Dimer POC ABG pH 7.456 H POC ABG pCO2 61.4 H POC ABG pO2 68 L Sodium 131 L Potassium 5.1 H Chloride 84.5 L Carbon Dioxide 39 H BUN Creatinine 0.3 L Glucose POC Glucose Calcium AST 78 H ALT 71 H Lactate Dehydrogenase C-Reactive Protein Total Protein 6.0 L Albumin 2.5 L Triglycerides Lymph Enumerat CD4/CD8 % CD3 Cells Absolute CD3 Count % CD4 Cells Absolute CD4 Count % CD8 Cells Absolute CD8 Count % CD19 Cells Absolute CD19 Count HIV-1 RNA PCR copies/ml HIV-1 RNA (PCR) log Miscellaneous Test Crossmatch 07/26/18 07/27/18 07/28/18 14:56 14:26 05:20 RBC Hgb Hct MCHC RDW Plt Count Lymph % (Auto) Lymph # Seg Neutrophils % Abs Lymphs (Manual) D-Dimer POC ABG pH 7.472 H POC ABG pCO2 66.0 H 57.4 H POC ABG pO2 56 L 59 L Sodium Potassium Chloride Carbon Dioxide BUN Creatinine Glucose POC Glucose Calcium AST ALT Lactate Dehydrogenase C-Reactive Protein Total Protein Albumin Triglycerides 209 H Lymph Enumerat CD4/CD8 % CD3 Cells Absolute CD3 Count % CD4 Cells Absolute CD4 Count % CD8 Cells Absolute CD8 Count % CD19 Cells Absolute CD19 Count HIV-1 RNA PCR copies/ml HIV-1 RNA (PCR) log Miscellaneous Test Crossmatch 07/28/18 07/28/18 07/28/18 05:20 05:20 06:08 RBC 3.21 L Hgb 10.0 L Hct 29.9 L MCHC RDW 15.4 H Plt Count 451 H Lymph % (Auto) Lymph # Seg Neutrophils % 81.6 H Abs Lymphs (Manual) D-Dimer POC ABG pH 7.328 L POC ABG pCO2 POC ABG pO2 70 L Sodium 136 L Potassium Chloride 89.9 L Carbon Dioxide 38 H BUN Creatinine 0.4 L Glucose POC Glucose Calcium 8.1 L AST 104 H ALT 113 H Lactate Dehydrogenase C-Reactive Protein Total Protein 6.2 L Albumin 2.5 L Triglycerides Lymph Enumerat CD4/CD8 % CD3 Cells Absolute CD3 Count % CD4 Cells Absolute CD4 Count % CD8 Cells Absolute CD8 Count % CD19 Cells Absolute CD19 Count HIV-1 RNA PCR copies/ml HIV-1 RNA (PCR) log Miscellaneous Test Crossmatch 07/28/18 07/29/18 08/02/18 17:22 04:28 06:30 RBC 2.96 L Hgb 9.4 L Hct 27.6 L MCHC RDW 18.4 H Plt Count Lymph % (Auto) 11.1 L Lymph # 0.6 L Seg Neutrophils % 84.0 H Abs Lymphs (Manual) D-Dimer POC ABG pH POC ABG pCO2 65.7 H 55.1 H POC ABG pO2 113 H 76 L Sodium Potassium Chloride Carbon Dioxide BUN Creatinine Glucose POC Glucose Calcium AST ALT Lactate Dehydrogenase C-Reactive Protein Total Protein Albumin Triglycerides Lymph Enumerat CD4/CD8 % CD3 Cells Absolute CD3 Count % CD4 Cells Absolute CD4 Count % CD8 Cells Absolute CD8 Count % CD19 Cells Absolute CD19 Count HIV-1 RNA PCR copies/ml HIV-1 RNA (PCR) log Miscellaneous Test Crossmatch 08/02/18 08/03/18 08/03/18 06:30 06:30 06:30 RBC 2.78 L Hgb 9.0 L Hct 26.3 L MCHC RDW 19.6 H Plt Count Lymph % (Auto) Lymph # 0.7 L Seg Neutrophils % 79.0 H Abs Lymphs (Manual) D-Dimer POC ABG pH POC ABG pCO2 POC ABG pO2 Sodium 133 L 131 L Potassium Chloride 92.7 L 92.0 L Carbon Dioxide BUN 22 H Creatinine 0.5 L 0.3 L Glucose POC Glucose Calcium 8.1 L 8.0 L AST ALT Lactate Dehydrogenase C-Reactive Protein Total Protein 6.0 L Albumin 2.4 L Triglycerides Lymph Enumerat CD4/CD8 % CD3 Cells Absolute CD3 Count % CD4 Cells Absolute CD4 Count % CD8 Cells Absolute CD8 Count % CD19 Cells Absolute CD19 Count HIV-1 RNA PCR copies/ml HIV-1 RNA (PCR) log Miscellaneous Test Crossmatch Chest x-ray: image reviewed Allied health notes reviewed: RT
[2018-08-03] MEDS: KENALOG TP SCH ×2 (11:53→23:41)
--- NOTE | 2018-08-03 16:38 | Progress Note ---
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 Diarrhea: Improving Hyponatermia Syndrome: monitor sodium levels closely. 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 Case management Critical care time 32 minutes History Interval history: Patient seen and examined medical records reviewed Patient is alert and awake, not in acute distress Status post trach and PEG, on ventilatory support No new events reported by the nursing Vital signs reviewed Hospitalist Physical - Constitutional Vitals: Temp Pulse Resp BP Pulse Ox 98.8 F 113 H 21 95/68 96 08/03/18 12:00 08/03/18 15:00 08/03/18 15:00 08/03/18 15:00 08/03/18 15:00 General appearance: Present: no acute distress, well-nourished, cachectic, disheveled, other (vent dependent) - EENT Eyes: Present: PERRL, EOM intact - Neck Neck: Present: supple, normal ROM - Respiratory Respiratory effort: normal Respiratory: bilateral: diminished, negative: rales, rhonchi, wheezing - Cardiovascular Rhythm: regular Heart Sounds: Present: S1 & S2 - Extremities Extremities: no ischemia, No edema - Abdominal General gastrointestinal: soft, non-tender, non-distended, normal bowel sounds - Integumentary Integumentary: Present: clear, warm - Psychiatric Psychiatric: appropriate mood/affect, cooperative - Neurologic Neurologic: CNII-XII intact, moves all extremities Results - Labs CBC & Chem 7: 08/03/18 06:30 08/03/18 06:30 Labs: Laboratory Last Values WBC 4.6 K/mm3 (4.5-11.0) 08/03/18 06:30 RBC 2.78 M/mm3 (3.65-5.03) L 08/03/18 06:30 Hgb 9.0 gm/dl (11.8-15.2) L 08/03/18 06:30 Hct 26.3 % (35.5-45.6) L 08/03/18 06:30 MCV 94 fl (84-94) 08/03/18 06:30 MCH 32 pg (28-32) 08/03/18 06:30 MCHC 34 % (32-34) 08/03/18 06:30 RDW 19.6 % (13.2-15.2) H 08/03/18 06:30 Plt Count 404 K/mm3 (140-440) 08/03/18 06:30 Lymph % (Auto) 15.9 % (13.4-35.0) 08/03/18 06:30 [place] % (Auto) 3.1 % (0.0-7.3) 08/03/18 06:30 Eos % (Auto) 1.2 % (0.0-4.3) 08/03/18 06:30 Baso % (Auto) 0.8 % (0.0-1.8) 08/03/18 06:30 Lymph # 0.7 K/mm3 (1.2-5.4) L 08/03/18 06:30 [place] # 0.1 K/mm3 (0.0-0.8) 08/03/18 06:30 Eos # 0.1 K/mm3 (0.0-0.4) 08/03/18 06:30 Baso # 0.0 K/mm3 (0.0-0.1) 08/03/18 06:30 Add Manual Diff Complete 07/25/18 09:30 Total Counted 100 07/25/18 09:30 Seg Neutrophils % 79.0 % (40.0-70.0) H 08/03/18 06:30 Seg Neuts % (Manual) 63.0 % (40.0-70.0) 07/25/18 09:30 0 % 07/25/18 09:30 35.0 % (13.4-35.0) 07/25/18 09:30 Reactive Lymphs % (Man) 0 % 07/25/18 09:30 1.0 % (0.0-7.3) 07/25/18 09:30 0 % (0.0-4.3) 07/25/18 09:30 0 % (0.0-1.8) 07/25/18 09:30 0 % 07/25/18 09:30 1.0 % 07/25/18 09:30 0 % 07/25/18 09:30 0 % 07/25/18 09:30 Nucleated RBC % Not Reportable 07/25/18 09:30 Seg Neutrophils # 3.6 K/mm3 (1.8-7.7) 08/03/18 06:30 Seg Neutrophils # Man 4.9 K/mm3 (1.8-7.7) 07/25/18 09:30 Band Neutrophils # 0.0 K/mm3 07/25/18 09:30 Abs Lymphs (Manual) 220 cells/uL (850-3900) L 07/12/18 19:29 2.7 K/mm3 (1.2-5.4) 07/25/18 09:30 Abs React Lymphs (Man) 0.0 K/mm3 07/25/18 09:30 0.1 K/mm3 (0.0-0.8) 07/25/18 09:30 0.0 K/mm3 (0.0-0.4) 07/25/18 09:30 0.0 K/mm3 (0.0-0.1) 07/25/18 09:30 0.0 K/mm3 07/25/18 09:30 0.1 K/mm3 07/25/18 09:30 0.0 K/mm3 07/25/18 09:30 Blast Cells # 0.0 K/mm3 07/25/18 09:30 WBC Morphology Not Reportable 07/25/18 09:30 Hypersegmented Neuts Not Reportable 07/25/18 09:30 Hyposegmented Neuts Not Reportable 07/25/18 09:30 Hypogranular Neuts Not Reportable 07/25/18 09:30 Not Reportable 07/25/18 09:30 Not Reportable 07/25/18 09:30 Not Reportable 07/25/18 09:30 Not Reportable 07/25/18 09:30 Not Reportable 07/25/18 09:30 Not Reportable 07/25/18 09:30 Consistent w auto 07/25/18 09:30 Not Reportable 07/25/18 09:30 Plt Clumps, EDTA Not Reportable 07/25/18 09:30 Not Reportable 07/25/18 09:30 Not Reportable 07/25/18 09:30 Not Reportable 07/25/18 09:30 Plt Morphology Comment Not Reportable 07/25/18 09:30 RBC Morphology Not Reportable 07/25/18 09:30 Dimorphic RBCs Not Reportable 07/25/18 09:30 Few 07/25/18 09:30 Not Reportable 07/25/18 09:30 Not Reportable 07/25/18 09:30 1+ 07/25/18 09:30 Not Reportable 07/25/18 09:30 Few 07/25/18 09:30 Not Reportable 07/25/18 09:30 Not Reportable 07/25/18 09:30 Not Reportable 07/25/18 09:30 Rare 07/25/18 09:30 Not Reportable 07/25/18 09:30 Not Reportable 07/25/18 09:30 Not Reportable 07/25/18 09:30 Not Reportable 07/25/18 09:30 Not Reportable 07/25/18 09:30 Not Reportable 07/25/18 09:30 Not Reportable 07/25/18 09:30 Not Reportable 07/25/18 09:30 Not Reportable 07/25/18 09:30 Acanthocytes (Spur) Not Reportable 07/25/18 09:30 Rouleaux Not Reportable 07/25/18 09:30 Not Reportable 07/25/18 09:30 Not Reportable 07/25/18 09:30 Not Reportable 07/25/18 09:30 Not Reportable 07/25/18 09:30 Hem Pathologist Commnt No 07/25/18 09:30 1298.70 ng/mlDDU (0-234) H 07/11/18 15:04 POC ABG pH 7.432 (7.35-7.45) 08/02/18 14:13 POC ABG pCO2 44.5 (35-45) 08/02/18 14:13 POC ABG pO2 82 (80-105) 08/02/18 14:13 POC ABG HCO3 29.7 (22-26 mml/L) 08/02/18 14:13 POC ABG Total CO2 31 (23-27mmol/L) 08/02/18 14:13 POC ABG O2 Sat 96 08/02/18 14:13 POC ABG Base Excess 5 ((-2) - (+3)mmol/L) 08/02/18 14:13 40 % 08/02/18 14:13 Sodium 131 mmol/L (137-145) L 08/03/18 06:30 Potassium 3.8 mmol/L (3.6-5.0) 08/03/18 06:30 Chloride 92.0 mmol/L (98-107) L 08/03/18 06:30 Carbon Dioxide 29 mmol/L (22-30) 08/03/18 06:30 14 mmol/L 08/03/18 06:30 BUN 17 mg/dL (9-20) 08/03/18 06:30 0.3 mg/dL (0.8-1.5) L 08/03/18 06:30 Estimated GFR > 60 ml/min 08/03/18 06:30 57 % 08/03/18 06:30 Glucose 84 mg/dL (75-100) 08/03/18 06:30 POC Glucose 104 (70-105) 07/30/18 15:19 Lactic Acid 1.80 mmol/L (0.7-2.0) 07/11/18 21:01 Calcium 8.0 mg/dL (8.4-10.2) L 08/03/18 06:30 0.20 mg/dL (0.1-1.2) 08/03/18 06:30 AST 36 units/L (5-40) 08/03/18 06:30 ALT 50 units/L (7-56) 08/03/18 06:30 85 units/L (35-129) 08/03/18 06:30 731 units/L (91-180) H 07/12/18 19:29 < 0.010 ng/mL (0.00-0.029) 07/11/18 15:04 2.70 mg/dL (0.00-1.30) H 07/15/18 14:09 NT-Pro-B Natriuret Pep 249.7 pg/mL (0-450) 07/11/18 15:04 6.0 g/dL (6.3-8.2) L 08/03/18 06:30 2.4 g/dL (3.9-5) L 08/03/18 06:30 0.7 % 08/03/18 06:30 Triglycerides 209 mg/dL (2-149) H 07/28/18 05:20 Yellow (Yellow) 07/15/18 14:14 Clear (Clear) 07/15/18 14:14 6.0 (5.0-7.0) 07/15/18 14:14 Ur Specific [place] 1.015 (1.003-1.030) 07/15/18 14:14 30 mg/dl mg/dL (Negative) 07/15/18 14:14 Neg mg/dL (Negative) 07/15/18 14:14 Neg mg/dL (Negative) 07/15/18 14:14 Neg (Negative) 07/15/18 14:14 Neg (Negative) 07/15/18 14:14 Neg (Negative) 07/15/18 14:14 < 2.0 mg/dL (<2.0) 07/15/18 14:14 Ur Leukocyte Esterase Neg (Negative) 07/15/18 14:14 2.0 /HPF (0.0-6.0) 07/15/18 14:14 6.0 /HPF (0.0-6.0) 07/15/18 14:14 21 mmol/L 07/19/18 14:27 Lymph Enumerat CD4/CD8 0.04 (0.86-5.00) L 07/12/18 19:29 % CD3 Cells 88 % (57-85) H 07/12/18 19:29 194 cells/uL (840-3060) L 07/12/18 19:29 % CD4 Cells 3 % (30-61) L 07/12/18 19:29 7 cells/uL (490-1740) L 07/12/18 19:29 % CD8 Cells 75 % (12-42) H 07/12/18 19:29 177 cells/uL (180-1170) L 07/12/18 19:29 % CD19 Cells 4 % (6-29) L 07/12/18 19:29 9 cells/uL (110-660) L 07/12/18 19:29 RPR Nonreactive (Nonreactive) 07/12/18 23:38 CMV DNA PCR log endoscopy rn/mL See scanned result 07/15/18 14:09 Hepatitis A IgM Ab Non-reactive (NonReactive) 07/12/18 23:38 Hep Bs Antigen Non-reactive (Negative) 07/12/18 23:38 Hep B Core IgM Ab Non-reactive (NonReactive) 07/12/18 23:38 Non-reactive (NonReactive) 07/12/18 23:38 HIV-1 RNA PCR copies/ml 060788 Copies/mL H 07/12/18 19:29 5.72 Log cps/mL H 07/12/18 19:29 Flexitest 1 H 07/16/18 07:21 Blood Type O POSITIVE 07/24/18 07:50 Antibody Screen Positive 07/24/18 07:50 Prewarmed Antibody Srcn Positive 07/18/18 03:10 Antibody Identification Anti-Adrianna 07/24/18 07:50 Direct Antiglob Test Negative 07/24/18 07:50 NIKUNJ, Poly Interpret Negative 07/24/18 07:50 Crossmatch See Detail 07/24/18 07:50 Active Medications - Current Medications Current Medications: Generic Name Dose Route Start Last Admin Trade Name Freq PRN Reason Stop Dose Admin Acetaminophen 650 mg 07/12/18 18:07 07/21/18 19:30 Tylenol FEEDTUBE 650 mg Q6H PRN Administration Non Cardiac Pain or Temp>100.5 Albuterol 2.5 mg 07/11/18 17:16 07/26/18 12:07 Proventil IH 2.5 mg Q3HRT PRN Administration Shortness Of Breath Lipase/Protease/Amylase 1 each 08/02/18 15:[address] 10,500 Unit FEEDTUBE PRN PRN For Clogged Feeding Tube Azithromycin 1,200 mg 07/26/18 10:00 08/02/18 10:03 Zithromax PO 1,200 mg Th HE Administration Docusate Sodium 100 mg 07/15/18 12:00 08/03/18 10:44 Colace PO Not Given BID HE Doxazosin Mesylate 2 mg 07/18/18 12:00 08/03/18 11:20 Cardura PO Not Given QDAY HE Famotidine 20 mg 07/16/18 22:00 08/03/18 10:06 Pepcid PO 20 mg BID HE Administration Fentanyl 50 mcg 07/12/18 00:26 07/20/18 09:02 Sublimaze IV 50 mcg Q10MIN PRN Administration ANALGESIA Heparin Sodium (Porcine) 5,000 unit 08/03/18 22:00 Heparin SUB-Q TID HE Hydrophilic Ointment 1 applic 07/12/18 13:30 Vaseline Lip Therapy TP Q2HR PRN Dry Lips Fentanyl Citrate 2,000 mcg in 100 mls @ 3.065 mls/hr 07/12/18 01:00 08/03/18 13:27 Fentanyl Drip Premix IV 4 mcg/kg/hr TITR HE 12.26 mls/hr Administration Protocol 1 MCG/KG/HR Propofol 1,000 mg in 100 mls @ 1.839 mls/hr 07/12/18 01:00 08/03/18 12:13 Diprivan 10 Mg/Ml IV 0 mcg/kg/min TITR HE 0 mls/hr Titration Protocol 5 MCG/KG/MIN Midazolam HCl 100 mg/ Sodium 100 mls @ 2 mls/hr 07/18/18 13:30 08/03/18 12:08 Chloride IV 0 mg/hr TITR HE 0 mls/hr Titration Protocol 2 MG/HR Midazolam HCl 2 mg 07/16/18 13:06 07/26/18 17:42 Versed IV 2 mg Q2H PRN Administration AGITATION Midazolam HCl 2 mg 07/18/18 12:44 Versed IV Q10MIN PRN Sedation Multi-Ingred Cream/Lotion/Oil/Oint 1 applic 07/12/18 13:30 Artificial Tears Ophth Oint OU Q4HR PRN Dry Eye(s) Quetiapine Fumarate 300 mg 07/27/18 22:00 08/03/18 10:06 Seroquel PO 300 mg BID HE Administration Senna 17.2 mg 07/26/18 22:00 08/02/18 22:01 Senokot PO 17.2 mg QHS HE Administration Simple Syrup 15 ml 08/02/18 15:42 Simple Syrup FEEDTUBE PRN PRN Hypoglycemia Simple Syrup 30 ml 08/02/18 15:42 Simple Syrup FEEDTUBE PRN PRN Hypoglycemia Sodium Bicarbonate 325 mg 08/02/18 15:42 Sodium Bicarbonate FEEDTUBE PRN PRN For Clogged Feeding Tube Sodium Chloride 10 ml 07/11/18 22:00 08/03/18 10:07 Sodium Chloride Flush Syringe 10 Ml IV 10 ml BID HE Administration Sodium Chloride 10 ml 07/11/18 17:16 07/18/18 09:00 Sodium Chloride Flush Syringe 10 Ml IV 10 ml PRN PRN Administration LINE FLUSH Triamcinolone Acetonide 1 applic 08/03/18 11:00 08/03/18 11:53 Kenalog TP 1 applic BID HE Administration Trimethoprim/Sulfamethoxazole 160 mg 08/01/18 10:00 08/03/18 10:06 Bactrim 200-40 Mg/5 Ml PO 160 mg DAILY HE Administration Nutrition/Malnutrition Assess - Dietary Evaluation Nutrition/Malnutrition Findings: Nutrition Notes Start: 07/12/18 09:38 Freq: Status: Active Protocol: Document 08/02/18 15:08 RM (Rec: 08/02/18 15:20 RM [id number]) Nutrition Notes Initial or Follow up Reassessment Current Diagnosis Sepsis,Respiratory Failure Other Pertinent Diagnosis Bilat pneu, HIV/AIDS, Diarrhea Current Diet Nepro at 45 ml/hr Labs/Tests K 3.9 Pertinent Medications Reviewed Height 5 ft 11 in Weight 56.3 kg [place] Body Weight (kg) 78.18 BMI 17.3 Weight change and time frame Current wt obtained rom bedscale Subjective/Other Information During rounds MD requested reevaluation of TF formula d/t renal labs being WNL. Voucher Clerk recommends remaining on Nepro d/t elevated K when pt received Vital 1.2. Percent of energy/protein needs met: 100%/100% Burn Absent Trauma Absent #2 Nutrition Diagnosis Inadequate oral intake Diagnosis Progress(for reassessment Continues documentation) #1 Nutrition Diagnosis Malnutrition Diagnosis Progress(for reassessment Continues documentation) Is patient on ventilator? Yes Is Patient Ambulatory and/or Out of Bed No REE-([facility]-confined to bed) 1820.928 Kcal/Kg value to use for calculation 42 Approximate Energy Requirements Using 2365 kcal/Kg Calculation Used for Recommendations Kcal/kg Additional Notes Pro needs 1.2-2g/k-130g/ day Fluid needs 1ml/kcal Nutrition Intervention Nutrition Support: Increase Nepro to 55 ml/hr. Flush with 250 mls q 4 hrs. Kcal 2,376 Protein (gm) 107 Fluid (mL) 1,265 Goal #1 TF tolerance Goal #2 TF to continue to meet 90-100% energy and pro needs Goal #3 Wt maintenance and/or gain Anticipated Discharge Needs: Unable to determine at this time Follow-Up By: 08/07/18 Additional Comments Follow for TF tolerance
[2018-08-04] MEDS: fentaNYL DRIP Premix 2,000 MCG/100 ML BAG IV SCH ×2 (04:48→14:45)
[2018-08-04] MEDS: COLACE PO SCH ×2 (06:25→10:16)
[2018-08-04] MEDS: SENOKOT PO SCH (06:26)
--- NOTE | 2018-08-04 09:40 | Progress Note ---
Assessment and Plan Acute Hypoxic respiratory failure on mechanical ventilation Severe sepsis with septic shock Severe ARDS Sepsis present on admission with grater than 2 SOFA criteria PJP (pneumocystis jiroveci pneumonia) Diarrhea Hyponatermia Syndrome Hyperkalemia Moderate Protein Malnutrition AIDS ANEMIA Elevated d/DIMER- NO PE noted Nicotine dependance/Tobacco use disorder Daily SBT trials, start ATP trials in the morning, if continues to tolerate PSV Continue all supportive care Wean fentanyl infusion Continue all care as documented below -Transfuse to keep HgB>7g/dL as indicated -VAP bundle addressed - Antibiotics, anti-infectives per ID service. -ART per ID service, Antibiotic prophylaxis for OI per ID - Continue bronchodilators with pulmonary hygiene per RT -CXR and ABG prn - Monitor renal indices closely - Avoid nephrotoxic agents - Strict intake and output monitoring - Tube feedings, on Vital AF at 65ml/hour - Aspiration precautions. HOB >40 -Stress ulcer prophylaxis -VTE prophylaxis - Accuchecks with glycemic control. Target glucose of 140-180 mg/dL - Maintenance of sleep -wake cycle - Mobility as tolerated by hemodynamics - Influenza and pneumonia vaccination per protocol ..care plan discussed at length with RN/RT at the bedside Subjective Date of service: 08/04/18 Principal diagnosis: Acute hypoxemic resp failure; Bilateral pneumonia (PJP); HIV/AIDS Interval history: Patient is seen today for: Acute hypoxemic respiratory failure, on mechanical ventilatory support; Bilateral pneumonia, high suspicion for Pneumocystis jiroveci pneumonia; Human immunodeficiency virus/acquired immunodeficiency syndrome,noncompliant with therapy; Hyponatremia; Severe protein calorie maln utrition. Seen and examined at bedside; 24-hour events reviewed; nursing and respiratory care staff consulted; no adverse overnight events reported to me; resting peacefully in bed. Awake and alert, attempting to vocalize. No fevers, tolerating tube feedings, weaning FIO2, tolerating slow weaning of PEEP s/p trachesotomy, s/p PEG Tolerated 4 hours of PSV 12/16 yesterday Objective Vital Signs - 12hr 08/03/18 08/03/18 08/03/18 22:00 23:00 23:44 Temperature Pulse Rate 94 H 96 H 104 H Pulse Rate [ From Monitor] Respiratory 12 13 15 Rate Blood Pressure 100/50 94/54 104/62 O2 Sat by Pulse 97 100 98 Oximetry O2 Sat by Pulse Oximetry [ Assessment] 08/03/18 08/04/18 08/04/18 23:47 00:00 01:00 Temperature 98.7 F Pulse Rate 98 H 96 H Pulse Rate [ 97 H From Monitor] Respiratory 15 12 Rate Blood Pressure 90/52 90/45 O2 Sat by Pulse 97 97 Oximetry O2 Sat by Pulse 98 Oximetry [ Assessment] 08/04/18 08/04/18 08/04/18 02:00 03:00 04:00 Temperature 98.4 F Pulse Rate 99 H 95 H 94 H Pulse Rate [ 100 H From Monitor] Respiratory 13 12 21 Rate Blood Pressure 87/46 90/44 94/50 O2 Sat by Pulse 99 98 99 Oximetry O2 Sat by Pulse Oximetry [ Assessment] 08/04/18 08/04/18 08/04/18 05:00 06:00 07:00 Temperature Pulse Rate 97 H 92 H 93 H Pulse Rate [ From Monitor] Respiratory 17 12 14 Rate Blood Pressure 94/50 91/46 98/50 O2 Sat by Pulse 99 98 99 Oximetry O2 Sat by Pulse Oximetry [ Assessment] 08/04/18 08/04/18 08:00 09:00 Temperature 98.6 F Pulse Rate 91 H 101 H Pulse Rate [ From Monitor] Respiratory 14 21 Rate Blood Pressure 111/62 114/73 O2 Sat by Pulse 96 97 Oximetry O2 Sat by Pulse 98 Oximetry [ Assessment] Constitutional: no acute distress, other (young AAM; normocephalic and atraumatic) Eyes: non-icteric ENT: oropharynx moist, other (s/p trachesotomy) Neck: supple, no lymphadenopathy, no JVD, other (no thyromegaly) Effort: mildly labored Ascultation: Bilateral: diminished breath sounds, rales Percussion: Bilateral: not dull Cardiovascular: regular rate and rhythm, other (S1,S2, no murmurs, gallops or rubs) Gastrointestinal: normoactive bowel sounds, soft, non-tender, non-distended, other (PEG tube in place) Integumentary: normal Extremities: no cyanosis, no edema, pulses normal, no ischemia or petechiae Neurologic: normal mental status, non-focal exam, pupils equal and round, CN II- XII normal, motor strength normal and Psychiatric: mood appropriate, affect normal CBC and BMP: 08/03/18 06:30 08/03/18 06:30 ABG, PT/INR, D-dimer: ABG POC ABG pH 7.432 (7.35-7.45) 08/02/18 14:13 POC ABG pCO2 44.5 (35-45) 08/02/18 14:13 POC ABG pO2 82 (80-105) 08/02/18 14:13 POC ABG HCO3 29.7 (22-26 mml/L) 08/02/18 14:13 POC ABG Total CO2 31 (23-27mmol/L) 08/02/18 14:13 POC ABG O2 Sat 96 08/02/18 14:13 PT/INR, D-dimer 1298.70 ng/mlDDU (0-234) H 07/11/18 15:04 Abnormal lab findings: Abnormal Labs 07/11/18 07/11/18 07/11/18 14:06 14:06 15:04 RBC 3.30 L Hgb 9.6 L Hct 28.7 L MCHC RDW Plt Count Lymph % (Auto) Lymph # Seg Neutrophils % Abs Lymphs (Manual) D-Dimer 1298.70 H POC ABG pH POC ABG pCO2 POC ABG pO2 Sodium 132 L Potassium Chloride Carbon Dioxide BUN Creatinine 0.6 L Glucose 103 H POC Glucose Calcium 7.3 L AST ALT Lactate Dehydrogenase C-Reactive Protein Total Protein Albumin 2.1 L Triglycerides Lymph Enumerat CD4/CD8 % CD3 Cells Absolute CD3 Count % CD4 Cells Absolute CD4 Count % CD8 Cells Absolute CD8 Count % CD19 Cells Absolute CD19 Count HIV-1 RNA PCR copies/ml HIV-1 RNA (PCR) log Miscellaneous Test Crossmatch 07/11/18 07/11/18 07/12/18 17:36 22:15 00:25 RBC Hgb Hct MCHC RDW Plt Count Lymph % (Auto) Lymph # Seg Neutrophils % Abs Lymphs (Manual) D-Dimer POC ABG pH 7.289 L POC ABG pCO2 POC ABG pO2 66 L Sodium Potassium Chloride Carbon Dioxide BUN Creatinine Glucose POC Glucose Calcium AST ALT Lactate Dehydrogenase 591 H C-Reactive Protein Total Protein Albumin Triglycerides Lymph Enumerat CD4/CD8 % CD3 Cells Absolute CD3 Count % CD4 Cells Absolute CD4 Count % CD8 Cells Absolute CD8 Count % CD19 Cells Absolute CD19 Count HIV-1 RNA PCR copies/ml HIV-1 RNA (PCR) log Miscellaneous Test see below H Crossmatch 07/12/18 07/12/18 07/12/18 00:41 05:37 19:29 RBC Hgb Hct MCHC RDW Plt Count Lymph % (Auto) Lymph # Seg Neutrophils % Abs Lymphs (Manual) D-Dimer POC ABG pH 7.302 L 7.275 L POC ABG pCO2 47.1 H POC ABG pO2 Sodium Potassium Chloride Carbon Dioxide BUN Creatinine Glucose POC Glucose Calcium AST ALT Lactate Dehydrogenase 731 H C-Reactive Protein Total Protein Albumin Triglycerides Lymph Enumerat CD4/CD8 % CD3 Cells Absolute CD3 Count % CD4 Cells Absolute CD4 Count % CD8 Cells Absolute CD8 Count % CD19 Cells Absolute CD19 Count HIV-1 RNA PCR copies/ml HIV-1 RNA (PCR) log Miscellaneous Test Crossmatch 07/12/18 07/12/18 07/13/18 19:29 19:29 04:03 RBC Hgb Hct MCHC RDW Plt Count Lymph % (Auto) Lymph # Seg Neutrophils % Abs Lymphs (Manual) 220 L D-Dimer POC ABG pH 7.254 L POC ABG pCO2 49.2 H POC ABG pO2 Sodium Potassium Chloride Carbon Dioxide BUN Creatinine Glucose POC Glucose Calcium AST ALT Lactate Dehydrogenase C-Reactive Protein Total Protein Albumin Triglycerides Lymph Enumerat CD4/CD8 0.04 L % CD3 Cells 88 H Absolute CD3 Count 194 L % CD4 Cells 3 L Absolute CD4 Count 7 L % CD8 Cells 75 H Absolute CD8 Count 177 L % CD19 Cells 4 L Absolute CD19 Count 9 L HIV-1 RNA PCR copies/ml 785254 H HIV-1 RNA (PCR) log 5.72 H Miscellaneous Test Crossmatch 07/13/18 07/13/18 07/13/18 05:46 12:23 18:31 RBC Hgb Hct MCHC RDW Plt Count Lymph % (Auto) Lymph # Seg Neutrophils % Abs Lymphs (Manual) D-Dimer POC ABG pH POC ABG pCO2 POC ABG pO2 Sodium Potassium Chloride Carbon Dioxide BUN Creatinine Glucose POC Glucose 68 L 106 H 112 H Calcium AST ALT Lactate Dehydrogenase C-Reactive Protein Total Protein Albumin Triglycerides Lymph Enumerat CD4/CD8 % CD3 Cells Absolute CD3 Count % CD4 Cells Absolute CD4 Count % CD8 Cells Absolute CD8 Count % CD19 Cells Absolute CD19 Count HIV-1 RNA PCR copies/ml HIV-1 RNA (PCR) log Miscellaneous Test Crossmatch 07/14/18 07/14/1807/14/19 04:19 05:36 05:36 RBC 2.99 L Hgb 8.8 L Hct 25.7 L MCHC RDW 15.5 H Plt Count Lymph % (Auto) Lymph # Seg Neutrophils % Abs Lymphs (Manual) D-Dimer POC ABG pH 7.337 L POC ABG pCO2 POC ABG pO2 Sodium 135 L Potassium Chloride Carbon Dioxide 21 L BUN Creatinine 0.7 L Glucose 123 H POC Glucose Calcium 8.2 L AST ALT Lactate Dehydrogenase C-Reactive Protein Total Protein Albumin Triglycerides Lymph Enumerat CD4/CD8 % CD3 Cells Absolute CD3 Count % CD4 Cells Absolute CD4 Count % CD8 Cells Absolute CD8 Count % CD19 Cells Absolute CD19 Count HIV-1 RNA PCR copies/ml HIV-1 RNA (PCR) log Miscellaneous Test Crossmatch 07/14/18 07/14/18 07/14/18 12:14 14:33 17:18 RBC Hgb Hct MCHC RDW Plt Count Lymph % (Auto) Lymph # Seg Neutrophils % Abs Lymphs (Manual) D-Dimer POC ABG pH 7.325 L POC ABG pCO2 POC ABG pO2 75 L Sodium Potassium Chloride Carbon Dioxide BUN Creatinine Glucose POC Glucose 174 H 114 H Calcium AST ALT Lactate Dehydrogenase C-Reactive Protein Total Protein Albumin Triglycerides Lymph Enumerat CD4/CD8 % CD3 Cells Absolute CD3 Count % CD4 Cells Absolute CD4 Count % CD8 Cells Absolute CD8 Count % CD19 Cells Absolute CD19 Count HIV-1 RNA PCR copies/ml HIV-1 RNA (PCR) log Miscellaneous Test Crossmatch 07/15/18 07/15/18 07/15/18 00:17 12:29 12:29 RBC 2.64 L Hgb 7.5 L Hct 22.9 L MCHC RDW 15.4 H Plt Count Lymph % (Auto) 7.0 L Lymph # 0.4 L Seg Neutrophils % 89.6 H Abs Lymphs (Manual) D-Dimer POC ABG pH POC ABG pCO2 POC ABG pO2 Sodium Potassium Chloride Carbon Dioxide BUN Creatinine 0.6 L Glucose 124 H POC Glucose 113 H Calcium 7.3 L AST ALT Lactate Dehydrogenase C-Reactive Protein Total Protein Albumin Triglycerides Lymph Enumerat CD4/CD8 % CD3 Cells Absolute CD3 Count % CD4 Cells Absolute CD4 Count % CD8 Cells Absolute CD8 Count % CD19 Cells Absolute CD19 Count HIV-1 RNA PCR copies/ml HIV-1 RNA (PCR) log Miscellaneous Test Crossmatch 07/15/18 07/16/18 07/16/18 14:09 04:46 07:21 RBC Hgb Hct MCHC RDW Plt Count Lymph % (Auto) Lymph # Seg Neutrophils % Abs Lymphs (Manual) D-Dimer POC ABG pH 7.282 L POC ABG pCO2 52.6 H POC ABG pO2 63 L Sodium Potassium Chloride Carbon Dioxide BUN Creatinine Glucose POC Glucose Calcium AST ALT Lactate Dehydrogenase C-Reactive Protein 2.70 H Total Protein Albumin Triglycerides Lymph Enumerat CD4/CD8 % CD3 Cells Absolute CD3 Count % CD4 Cells Absolute CD4 Count % CD8 Cells Absolute CD8 Count % CD19 Cells Absolute CD19 Count HIV-1 RNA PCR copies/ml HIV-1 RNA (PCR) log Miscellaneous Test Flexitest 1 H Crossmatch 07/16/18 07/16/18 07/16/18 07:21 07:21 16:16 RBC 2.48 L Hgb 7.2 L Hct 21.5 L MCHC RDW 15.7 H Plt Count Lymph % (Auto) Lymph # Seg Neutrophils % Abs Lymphs (Manual) D-Dimer POC ABG pH 7.251 L POC ABG pCO2 62.2 H POC ABG pO2 Sodium 136 L Potassium Chloride Carbon Dioxide BUN Creatinine 0.6 L Glucose 118 H POC Glucose Calcium 7.5 L AST ALT Lactate Dehydrogenase C-Reactive Protein Total Protein Albumin Triglycerides Lymph Enumerat CD4/CD8 % CD3 Cells Absolute CD3 Count % CD4 Cells Absolute CD4 Count % CD8 Cells Absolute CD8 Count % CD19 Cells Absolute CD19 Count HIV-1 RNA PCR copies/ml HIV-1 RNA (PCR) log Miscellaneous Test Crossmatch 07/17/18 07/18/18 07/18/18 04:01 01:10 03:10 RBC 2.20 L Hgb 6.5 L Hct 19.2 L* MCHC RDW 16.0 H Plt Count Lymph % (Auto) 7.2 L Lymph # 0.5 L Seg Neutrophils % 89.9 H Abs Lymphs (Manual) D-Dimer POC ABG pH 7.245 L POC ABG pCO2 63.8 H POC ABG pO2 75 L Sodium Potassium Chloride Carbon Dioxide BUN Creatinine Glucose POC Glucose Calcium AST ALT Lactate Dehydrogenase C-Reactive Protein Total Protein Albumin Triglycerides Lymph Enumerat CD4/CD8 % CD3 Cells Absolute CD3 Count % CD4 Cells Absolute CD4 Count % CD8 Cells Absolute CD8 Count % CD19 Cells Absolute CD19 Count HIV-1 RNA PCR copies/ml HIV-1 RNA (PCR) log Miscellaneous Test Crossmatch See Detail 07/18/18 07/18/18 07/18/18 04:54 05:02 12:59 RBC Hgb Hct MCHC RDW Plt Count Lymph % (Auto) Lymph # Seg Neutrophils % Abs Lymphs (Manual) D-Dimer POC ABG pH 7.615 H POC ABG pCO2 32.6 L 48.8 H POC ABG pO2 79 L 118 H Sodium Potassium Chloride Carbon Dioxide BUN Creatinine Glucose POC Glucose 164 H Calcium AST ALT Lactate Dehydrogenase C-Reactive Protein Total Protein Albumin Triglycerides Lymph Enumerat CD4/CD8 % CD3 Cells Absolute CD3 Count % CD4 Cells Absolute CD4 Count % CD8 Cells Absolute CD8 Count % CD19 Cells Absolute CD19 Count HIV-1 RNA PCR copies/ml HIV-1 RNA (PCR) log Miscellaneous Test Crossmatch 07/18/18 07/18/18 07/19/18 18:25 20:39 03:53 RBC Hgb Hct MCHC RDW Plt Count Lymph % (Auto) Lymph # Seg Neutrophils % Abs Lymphs (Manual) D-Dimer POC ABG pH 7.339 L POC ABG pCO2 59.9 H 65.0 H POC ABG pO2 69 L Sodium Potassium Chloride Carbon Dioxide BUN Creatinine Glucose POC Glucose 155 H Calcium AST ALT Lactate Dehydrogenase C-Reactive Protein Total Protein Albumin Triglycerides Lymph Enumerat CD4/CD8 % CD3 Cells Absolute CD3 Count % CD4 Cells Absolute CD4 Count % CD8 Cells Absolute CD8 Count % CD19 Cells Absolute CD19 Count HIV-1 RNA PCR copies/ml HIV-1 RNA (PCR) log Miscellaneous Test Crossmatch 07/19/18 07/19/18 07/19/18 08:10 08:10 10:52 RBC 2.51 L Hgb 7.4 L Hct 22.0 L MCHC RDW 15.5 H Plt Count Lymph % (Auto) Lymph # Seg Neutrophils % Abs Lymphs (Manual) D-Dimer POC ABG pH POC ABG pCO2 POC ABG pO2 Sodium 130 L Potassium Chloride 89.0 L Carbon Dioxide 33 H BUN Creatinine 0.4 L Glucose 150 H POC Glucose 173 H Calcium 7.5 L AST ALT Lactate Dehydrogenase C-Reactive Protein Total Protein Albumin Triglycerides Lymph Enumerat CD4/CD8 % CD3 Cells Absolute CD3 Count % CD4 Cells Absolute CD4 Count % CD8 Cells Absolute CD8 Count % CD19 Cells Absolute CD19 Count HIV-1 RNA PCR copies/ml HIV-1 RNA (PCR) log Miscellaneous Test Crossmatch 07/19/18 07/19/18 07/20/18 17:06 23:47 04:37 RBC Hgb Hct MCHC RDW Plt Count Lymph % (Auto) Lymph # Seg Neutrophils % Abs Lymphs (Manual) D-Dimer POC ABG pH POC ABG pCO2 58.5 H POC ABG pO2 67 L Sodium Potassium Chloride Carbon Dioxide BUN Creatinine Glucose POC Glucose 117 H 114 H Calcium AST ALT Lactate Dehydrogenase C-Reactive Protein Total Protein Albumin Triglycerides Lymph Enumerat CD4/CD8 % CD3 Cells Absolute CD3 Count % CD4 Cells Absolute CD4 Count % CD8 Cells Absolute CD8 Count % CD19 Cells Absolute CD19 Count HIV-1 RNA PCR copies/ml HIV-1 RNA (PCR) log Miscellaneous Test Crossmatch 07/20/18 07/20/18 07/21/18 06:20 06:20 04:18 RBC 2.69 L Hgb 7.8 L Hct 23.6 L MCHC RDW 15.5 H Plt Count Lymph % (Auto) Lymph # Seg Neutrophils % Abs Lymphs (Manual) D-Dimer POC ABG pH 7.456 H POC ABG pCO2 60.4 H POC ABG pO2 64 L Sodium 134 L Potassium Chloride 89.2 L Carbon Dioxide 38 H BUN Creatinine 0.7 L D Glucose 120 H POC Glucose Calcium 7.6 L AST ALT Lactate Dehydrogenase C-Reactive Protein Total Protein Albumin Triglycerides Lymph Enumerat CD4/CD8 % CD3 Cells Absolute CD3 Count % CD4 Cells Absolute CD4 Count % CD8 Cells Absolute CD8 Count % CD19 Cells Absolute CD19 Count HIV-1 RNA PCR copies/ml HIV-1 RNA (PCR) log Miscellaneous Test Crossmatch 07/21/18 07/21/18 07/22/18 04:35 04:35 04:16 RBC 2.62 L 2.37 L Hgb 7.7 L 7.0 L Hct 23.1 L 21.1 L MCHC RDW 15.4 H Plt Count Lymph % (Auto) Lymph # Seg Neutrophils % Abs Lymphs (Manual) D-Dimer POC ABG pH POC ABG pCO2 POC ABG pO2 Sodium 129 L Potassium 5.3 H Chloride 85.3 L Carbon Dioxide 38 H BUN Creatinine 0.4 L Glucose 108 H POC Glucose Calcium 8.0 L AST ALT Lactate Dehydrogenase C-Reactive Protein Total Protein Albumin Triglycerides Lymph Enumerat CD4/CD8 % CD3 Cells Absolute CD3 Count % CD4 Cells Absolute CD4 Count % CD8 Cells Absolute CD8 Count % CD19 Cells Absolute CD19 Count HIV-1 RNA PCR copies/ml HIV-1 RNA (PCR) log Miscellaneous Test Crossmatch 07/22/18 07/23/18 07/23/18 04:16 03:25 12:45 RBC Hgb Hct MCHC RDW Plt Count Lymph % (Auto) Lymph # Seg Neutrophils % Abs Lymphs (Manual) D-Dimer POC ABG pH POC ABG pCO2 69.4 H POC ABG pO2 Sodium 132 L 125 L D Potassium 5.4 H 5.3 H Chloride 87.4 L 80.3 L Carbon Dioxide 38 H 38 H BUN Creatinine 0.4 L 0.3 L Glucose 117 H 124 H POC Glucose Calcium 7.5 L 7.4 L AST ALT Lactate Dehydrogenase C-Reactive Protein Total Protein Albumin Triglycerides Lymph Enumerat CD4/CD8 % CD3 Cells Absolute CD3 Count % CD4 Cells Absolute CD4 Count % CD8 Cells Absolute CD8 Count % CD19 Cells Absolute CD19 Count HIV-1 RNA PCR copies/ml HIV-1 RNA (PCR) log Miscellaneous Test Crossmatch 07/23/18 07/24/18 07/24/18 23:52 04:30 04:30 RBC 2.12 L Hgb 6.3 L Hct 18.9 L* MCHC RDW Plt Count Lymph % (Auto) Lymph # Seg Neutrophils % Abs Lymphs (Manual) D-Dimer POC ABG pH POC ABG pCO2 POC ABG pO2 Sodium 127 L Potassium 5.2 H Chloride 83.9 L Carbon Dioxide 39 H BUN Creatinine 0.3 L Glucose POC Glucose 118 H Calcium 7.5 L AST ALT Lactate Dehydrogenase C-Reactive Protein Total Protein Albumin Triglycerides Lymph Enumerat CD4/CD8 % CD3 Cells Absolute CD3 Count % CD4 Cells Absolute CD4 Count % CD8 Cells Absolute CD8 Count % CD19 Cells Absolute CD19 Count HIV-1 RNA PCR copies/ml HIV-1 RNA (PCR) log Miscellaneous Test Crossmatch 07/24/18 07/24/18 07/24/18 05:11 05:30 07:50 RBC Hgb Hct MCHC RDW Plt Count Lymph % (Auto) Lymph # Seg Neutrophils % Abs Lymphs (Manual) D-Dimer POC ABG pH 7.462 H POC ABG pCO2 58.7 H POC ABG pO2 79 L Sodium Potassium Chloride Carbon Dioxide BUN Creatinine Glucose POC Glucose 145 H Calcium AST ALT Lactate Dehydrogenase C-Reactive Protein Total Protein Albumin Triglycerides Lymph Enumerat CD4/CD8 % CD3 Cells Absolute CD3 Count % CD4 Cells Absolute CD4 Count % CD8 Cells Absolute CD8 Count % CD19 Cells Absolute CD19 Count HIV-1 RNA PCR copies/ml HIV-1 RNA (PCR) log Miscellaneous Test Crossmatch See Detail 07/25/18 07/25/18 07/26/18 09:30 09:30 00:18 RBC 2.99 L Hgb 9.1 L Hct 27.0 L D MCHC RDW Plt Count Lymph % (Auto) Lymph # Seg Neutrophils % Abs Lymphs (Manual) D-Dimer POC ABG pH POC ABG pCO2 POC ABG pO2 Sodium 131 L 135 L Potassium 5.1 H 5.5 H Chloride 84.4 L 88.4 L Carbon Dioxide 39 H 38 H BUN Creatinine 0.3 L 0.3 L Glucose 133 H POC Glucose Calcium 8.0 L AST ALT Lactate Dehydrogenase C-Reactive Protein Total Protein Albumin Triglycerides Lymph Enumerat CD4/CD8 % CD3 Cells Absolute CD3 Count % CD4 Cells Absolute CD4 Count % CD8 Cells Absolute CD8 Count % CD19 Cells Absolute CD19 Count HIV-1 RNA PCR copies/ml HIV-1 RNA (PCR) log Miscellaneous Test Crossmatch 07/26/18 07/26/18 07/26/18 04:07 05:50 05:50 RBC 3.01 L Hgb 9.4 L Hct 27.2 L MCHC 35 H RDW Plt Count Lymph % (Auto) 10.4 L Lymph # 0.9 L Seg Neutrophils % 84.2 H Abs Lymphs (Manual) D-Dimer POC ABG pH 7.456 H POC ABG pCO2 61.4 H POC ABG pO2 68 L Sodium 131 L Potassium 5.1 H Chloride 84.5 L Carbon Dioxide 39 H BUN Creatinine 0.3 L Glucose POC Glucose Calcium AST 78 H ALT 71 H Lactate Dehydrogenase C-Reactive Protein Total Protein 6.0 L Albumin 2.5 L Triglycerides Lymph Enumerat CD4/CD8 % CD3 Cells Absolute CD3 Count % CD4 Cells Absolute CD4 Count % CD8 Cells Absolute CD8 Count % CD19 Cells Absolute CD19 Count HIV-1 RNA PCR copies/ml HIV-1 RNA (PCR) log Miscellaneous Test Crossmatch 07/26/18 07/27/18 07/28/18 14:56 14:26 05:20 RBC Hgb Hct MCHC RDW Plt Count Lymph % (Auto) Lymph # Seg Neutrophils % Abs Lymphs (Manual) D-Dimer POC ABG pH 7.472 H POC ABG pCO2 66.0 H 57.4 H POC ABG pO2 56 L 59 L Sodium Potassium Chloride Carbon Dioxide BUN Creatinine Glucose POC Glucose Calcium AST ALT Lactate Dehydrogenase C-Reactive Protein Total Protein Albumin Triglycerides 209 H Lymph Enumerat CD4/CD8 % CD3 Cells Absolute CD3 Count % CD4 Cells Absolute CD4 Count % CD8 Cells Absolute CD8 Count % CD19 Cells Absolute CD19 Count HIV-1 RNA PCR copies/ml HIV-1 RNA (PCR) log Miscellaneous Test Crossmatch 07/28/18 07/28/18 07/28/18 05:20 05:20 06:08 RBC 3.21 L Hgb 10.0 L Hct 29.9 L MCHC RDW 15.4 H Plt Count 451 H Lymph % (Auto) Lymph # Seg Neutrophils % 81.6 H Abs Lymphs (Manual) D-Dimer POC ABG pH 7.328 L POC ABG pCO2 POC ABG pO2 70 L Sodium 136 L Potassium Chloride 89.9 L Carbon Dioxide 38 H BUN Creatinine 0.4 L Glucose POC Glucose Calcium 8.1 L AST 104 H ALT 113 H Lactate Dehydrogenase C-Reactive Protein Total Protein 6.2 L Albumin 2.5 L Triglycerides Lymph Enumerat CD4/CD8 % CD3 Cells Absolute CD3 Count % CD4 Cells Absolute CD4 Count % CD8 Cells Absolute CD8 Count % CD19 Cells Absolute CD19 Count HIV-1 RNA PCR copies/ml HIV-1 RNA (PCR) log Miscellaneous Test Crossmatch 07/28/18 07/29/18 08/02/18 17:22 04:28 06:30 RBC 2.96 L Hgb 9.4 L Hct 27.6 L MCHC RDW 18.4 H Plt Count Lymph % (Auto) 11.1 L Lymph # 0.6 L Seg Neutrophils % 84.0 H Abs Lymphs (Manual) D-Dimer POC ABG pH POC ABG pCO2 65.7 H 55.1 H POC ABG pO2 113 H 76 L Sodium Potassium Chloride Carbon Dioxide BUN Creatinine Glucose POC Glucose Calcium AST ALT Lactate Dehydrogenase C-Reactive Protein Total Protein Albumin Triglycerides Lymph Enumerat CD4/CD8 % CD3 Cells Absolute CD3 Count % CD4 Cells Absolute CD4 Count % CD8 Cells Absolute CD8 Count % CD19 Cells Absolute CD19 Count HIV-1 RNA PCR copies/ml HIV-1 RNA (PCR) log Miscellaneous Test Crossmatch 08/02/18 08/03/18 08/03/18 06:30 06:30 06:30 RBC 2.78 L Hgb 9.0 L Hct 26.3 L MCHC RDW 19.6 H Plt Count Lymph % (Auto) Lymph # 0.7 L Seg Neutrophils % 79.0 H Abs Lymphs (Manual) D-Dimer POC ABG pH POC ABG pCO2 POC ABG pO2 Sodium 133 L 131 L Potassium Chloride 92.7 L 92.0 L Carbon Dioxide BUN 22 H Creatinine 0.5 L 0.3 L Glucose POC Glucose Calcium 8.1 L 8.0 L AST ALT Lactate Dehydrogenase C-Reactive Protein Total Protein 6.0 L Albumin 2.4 L Triglycerides Lymph Enumerat CD4/CD8 % CD3 Cells Absolute CD3 Count % CD4 Cells Absolute CD4 Count % CD8 Cells Absolute CD8 Count % CD19 Cells Absolute CD19 Count HIV-1 RNA PCR copies/ml HIV-1 RNA (PCR) log Miscellaneous Test Crossmatch Allied health notes reviewed: RT
[2018-08-04] MEDS: HEPARIN SUB-Q SCH ×3 (10:17→23:06)
[2018-08-04] MEDS: CARDURA PO SCH (10:17)
[2018-08-04] MEDS: PEPCID PO SCH ×2 (10:17→23:06)
[2018-08-04] MEDS: SODIUM CHLORIDE FLUSH SYRINGE 10 ML IV SCH (10:18)
[2018-08-04] MEDS: BACTRIM 200-40 MG/5 ML PO SCH (10:18)
[2018-08-04] MEDS: VALGANCICLOVIR FEEDTUBE SCH ×2 (10:18→23:05)
[2018-08-04] MEDS: KENALOG TP SCH (10:19)
--- NOTE | 2018-08-04 13:35 | Progress Note ---
Assessment and Plan Assessment and plan: --Acute hypoxic respiratory failure vent dependent > 96 hrs s/p Trach and PEG placement, Continue ventilatory support Wean as As tolerated and extubate --s/p PEG :Peg care,PEG feeds per protocol --Sepsis present on admission /bilateral pneumonia /MRSA tracheal aspirate s/p ABX, per ID, monitor CBC, Isolation precautions --Pneumonia(pneumocystis jirovecii pneumonia positive stain): antivirals and iv bactrim among others, ID following --Diarrhea: Improving --Hyponatremia:sodium levels improving --Severe Malnutrition : [employer] following --History of HIV-AIDS; noncompliance with medications, ID following --Acute blood loss anemia; received 2 units PRBC hb improved to 9 -- Elevated d dimers: CTA chest Neg PE --Discharge planning. Case management/social issues --Evaluation for LTAC placement Monitor closely and adjust the management as needed Critical care time 32 minutes History Interval history: Patient seen and examined medical records reviewed The patient is alert and awake Status post tracheostomy on vent Vital signs reviewed Hospitalist Physical - Constitutional Vitals: Temp Pulse Resp BP Pulse Ox 99.2 F 100 H 16 84/54 97 08/04/18 12:00 08/04/18 13:25 08/04/18 13:25 08/04/18 13:25 08/04/18 13:25 General appearance: Present: no acute distress, cachectic, disheveled, other (tracheostomy and vent) - EENT Eyes: Present: PERRL, EOM intact - Neck Neck: Present: supple, normal ROM - Respiratory Respiratory effort: normal Respiratory: bilateral: diminished, rhonchi, negative: rales, wheezing - Cardiovascular Rhythm: regular Heart Sounds: Present: S1 & S2 - Extremities Extremities: no ischemia, No edema - Abdominal General gastrointestinal: soft, non-tender, non-distended, normal bowel sounds, other (PEG tube In place) - Integumentary Integumentary: Present: clear, warm - Psychiatric Psychiatric: appropriate mood/affect, cooperative - Neurologic Neurologic: moves all extremities Results - Labs CBC & Chem 7: 08/03/18 06:30 08/03/18 06:30 Labs: Laboratory Last Values WBC 4.6 K/mm3 (4.5-11.0) 08/03/18 06:30 RBC 2.78 M/mm3 (3.65-5.03) L 08/03/18 06:30 Hgb 9.0 gm/dl (11.8-15.2) L 08/03/18 06:30 Hct 26.3 % (35.5-45.6) L 08/03/18 06:30 MCV 94 fl (84-94) 08/03/18 06:30 MCH 32 pg (28-32) 08/03/18 06:30 MCHC 34 % (32-34) 08/03/18 06:30 RDW 19.6 % (13.2-15.2) H 08/03/18 06:30 Plt Count 404 K/mm3 (140-440) 08/03/18 06:30 Lymph % (Auto) 15.9 % (13.4-35.0) 08/03/18 06:30 [place] % (Auto) 3.1 % (0.0-7.3) 08/03/18 06:30 Eos % (Auto) 1.2 % (0.0-4.3) 08/03/18 06:30 Baso % (Auto) 0.8 % (0.0-1.8) 08/03/18 06:30 Lymph # 0.7 K/mm3 (1.2-5.4) L 08/03/18 06:30 [place] # 0.1 K/mm3 (0.0-0.8) 08/03/18 06:30 Eos # 0.1 K/mm3 (0.0-0.4) 08/03/18 06:30 Baso # 0.0 K/mm3 (0.0-0.1) 08/03/18 06:30 Add Manual Diff Complete 07/25/18 09:30 Total Counted 100 07/25/18 09:30 Seg Neutrophils % 79.0 % (40.0-70.0) H 08/03/18 06:30 Seg Neuts % (Manual) 63.0 % (40.0-70.0) 07/25/18 09:30 0 % 07/25/18 09:30 35.0 % (13.4-35.0) 07/25/18 09:30 Reactive Lymphs % (Man) 0 % 07/25/18 09:30 1.0 % (0.0-7.3) 07/25/18 09:30 0 % (0.0-4.3) 07/25/18 09:30 0 % (0.0-1.8) 07/25/18 09:30 0 % 07/25/18 09:30 1.0 % 07/25/18 09:30 0 % 07/25/18 09:30 0 % 07/25/18 09:30 Nucleated RBC % Not Reportable 07/25/18 09:30 Seg Neutrophils # 3.6 K/mm3 (1.8-7.7) 08/03/18 06:30 Seg Neutrophils # Man 4.9 K/mm3 (1.8-7.7) 07/25/18 09:30 Band Neutrophils # 0.0 K/mm3 07/25/18 09:30 Abs Lymphs (Manual) 220 cells/uL (850-3900) L 07/12/18 19:29 2.7 K/mm3 (1.2-5.4) 07/25/18 09:30 Abs React Lymphs (Man) 0.0 K/mm3 07/25/18 09:30 0.1 K/mm3 (0.0-0.8) 07/25/18 09:30 0.0 K/mm3 (0.0-0.4) 07/25/18 09:30 0.0 K/mm3 (0.0-0.1) 07/25/18 09:30 0.0 K/mm3 07/25/18 09:30 0.1 K/mm3 07/25/18 09:30 0.0 K/mm3 07/25/18 09:30 Blast Cells # 0.0 K/mm3 07/25/18 09:30 WBC Morphology Not Reportable 07/25/18 09:30 Hypersegmented Neuts Not Reportable 07/25/18 09:30 Hyposegmented Neuts Not Reportable 07/25/18 09:30 Hypogranular Neuts Not Reportable 07/25/18 09:30 Not Reportable 07/25/18 09:30 Not Reportable 07/25/18 09:30 Not Reportable 07/25/18 09:30 Not Reportable 07/25/18 09:30 Not Reportable 07/25/18 09:30 Not Reportable 07/25/18 09:30 Consistent w auto 07/25/18 09:30 Not Reportable 07/25/18 09:30 Plt Clumps, EDTA Not Reportable 07/25/18 09:30 Not Reportable 07/25/18 09:30 Not Reportable 07/25/18 09:30 Not Reportable 07/25/18 09:30 Plt Morphology Comment Not Reportable 07/25/18 09:30 RBC Morphology Not Reportable 07/25/18 09:30 Dimorphic RBCs Not Reportable 07/25/18 09:30 Few 07/25/18 09:30 Not Reportable 07/25/18 09:30 Not Reportable 07/25/18 09:30 1+ 07/25/18 09:30 Not Reportable 07/25/18 09:30 Few 07/25/18 09:30 Not Reportable 07/25/18 09:30 Not Reportable 07/25/18 09:30 Not Reportable 07/25/18 09:30 Rare 07/25/18 09:30 Not Reportable 07/25/18 09:30 Not Reportable 07/25/18 09:30 Not Reportable 07/25/18 09:30 Not Reportable 07/25/18 09:30 Not Reportable 07/25/18 09:30 Not Reportable 07/25/18 09:30 Not Reportable 07/25/18 09:30 Not Reportable 07/25/18 09:30 Not Reportable 07/25/18 09:30 Acanthocytes (Spur) Not Reportable 07/25/18 09:30 Rouleaux Not Reportable 07/25/18 09:30 Not Reportable 07/25/18 09:30 Not Reportable 07/25/18 09:30 Not Reportable 07/25/18 09:30 Not Reportable 07/25/18 09:30 Hem Pathologist Commnt No 07/25/18 09:30 1298.70 ng/mlDDU (0-234) H 07/11/18 15:04 POC ABG pH 7.432 (7.35-7.45) 08/02/18 14:13 POC ABG pCO2 44.5 (35-45) 08/02/18 14:13 POC ABG pO2 82 (80-105) 08/02/18 14:13 POC ABG HCO3 29.7 (22-26 mml/L) 08/02/18 14:13 POC ABG Total CO2 31 (23-27mmol/L) 08/02/18 14:13 POC ABG O2 Sat 96 08/02/18 14:13 POC ABG Base Excess 5 ((-2) - (+3)mmol/L) 08/02/18 14:13 40 % 08/02/18 14:13 Sodium 131 mmol/L (137-145) L 08/03/18 06:30 Potassium 3.8 mmol/L (3.6-5.0) 08/03/18 06:30 Chloride 92.0 mmol/L (98-107) L 08/03/18 06:30 Carbon Dioxide 29 mmol/L (22-30) 08/03/18 06:30 14 mmol/L 08/03/18 06:30 BUN 17 mg/dL (9-20) 08/03/18 06:30 0.3 mg/dL (0.8-1.5) L 08/03/18 06:30 Estimated GFR > 60 ml/min 08/03/18 06:30 57 % 08/03/18 06:30 Glucose 84 mg/dL (75-100) 08/03/18 06:30 POC Glucose 102 (70-105) 08/04/18 12:23 Lactic Acid 1.80 mmol/L (0.7-2.0) 07/11/18 21:01 Calcium 8.0 mg/dL (8.4-10.2) L 08/03/18 06:30 0.20 mg/dL (0.1-1.2) 08/03/18 06:30 AST 36 units/L (5-40) 08/03/18 06:30 ALT 50 units/L (7-56) 08/03/18 06:30 85 units/L (35-129) 08/03/18 06:30 731 units/L (91-180) H 07/12/18 19:29 < 0.010 ng/mL (0.00-0.029) 07/11/18 15:04 2.70 mg/dL (0.00-1.30) H 07/15/18 14:09 NT-Pro-B Natriuret Pep 249.7 pg/mL (0-450) 07/11/18 15:04 6.0 g/dL (6.3-8.2) L 08/03/18 06:30 2.4 g/dL (3.9-5) L 08/03/18 06:30 0.7 % 08/03/18 06:30 Triglycerides 209 mg/dL (2-149) H 07/28/18 05:20 Yellow (Yellow) 07/15/18 14:14 Clear (Clear) 07/15/18 14:14 6.0 (5.0-7.0) 07/15/18 14:14 Ur Specific [place] 1.015 (1.003-1.030) 07/15/18 14:14 30 mg/dl mg/dL (Negative) 07/15/18 14:14 Neg mg/dL (Negative) 07/15/18 14:14 Neg mg/dL (Negative) 07/15/18 14:14 Neg (Negative) 07/15/18 14:14 Neg (Negative) 07/15/18 14:14 Neg (Negative) 07/15/18 14:14 < 2.0 mg/dL (<2.0) 07/15/18 14:14 Ur Leukocyte Esterase Neg (Negative) 07/15/18 14:14 2.0 /HPF (0.0-6.0) 07/15/18 14:14 6.0 /HPF (0.0-6.0) 07/15/18 14:14 21 mmol/L 07/19/18 14:27 Lymph Enumerat CD4/CD8 0.04 (0.86-5.00) L 07/12/18 19:29 % CD3 Cells 88 % (57-85) H 07/12/18 19:29 194 cells/uL (840-3060) L 07/12/18 19:29 % CD4 Cells 3 % (30-61) L 07/12/18 19:29 7 cells/uL (490-1740) L 07/12/18 19:29 % CD8 Cells 75 % (12-42) H 07/12/18 19:29 177 cells/uL (180-1170) L 07/12/18 19:29 % CD19 Cells 4 % (6-29) L 07/12/18 19:29 9 cells/uL (110-660) L 05/02/19 19:29 RPR Nonreactive (Nonreactive) 07/12/18 23:38 CMV DNA PCR log electron microscopist/mL See scanned result 07/15/18 14:09 Hepatitis A IgM Ab Non-reactive (NonReactive) 07/12/18 23:38 Hep Bs Antigen Non-reactive (Negative) 07/12/18 23:38 Hep B Core IgM Ab Non-reactive (NonReactive) 07/12/18 23:38 Non-reactive (NonReactive) 07/12/18 23:38 HIV-1 RNA PCR copies/ml 168107 Copies/mL H 07/12/18 19:29 5.72 Log cps/mL H 07/12/18 19:29 Flexitest 1 H 07/16/18 07:21 Blood Type O POSITIVE 07/24/18 07:50 Antibody Screen Positive 07/24/18 07:50 Prewarmed Antibody Srcn Positive 07/18/18 03:10 Antibody Identification Anti-Adrianna 07/24/18 07:50 Direct Antiglob Test Negative 07/24/18 07:50 NIKUNJ, Poly Interpret Negative 07/24/18 07:50 Crossmatch See Detail 07/24/18 07:50 Active Medications - Current Medications Current Medications: Generic Name Dose Route Start Last Admin Trade Name Freq PRN Reason Stop Dose Admin Acetaminophen 650 mg 07/12/18 18:07 07/21/18 19:30 Tylenol FEEDTUBE 650 mg Q6H PRN Administration Non Cardiac Pain or Temp>100.5 Albuterol 2.5 mg 07/11/18 17:16 07/26/18 12:07 Proventil IH 2.5 mg Q3HRT PRN Administration Shortness Of Breath Lipase/Protease/Amylase 1 each 08/02/18 15:[address] 10,500 Unit FEEDTUBE PRN PRN For Clogged Feeding Tube Azithromycin 1,200 mg 07/26/18 10:00 08/02/18 10:03 Zithromax PO 1,200 mg Th HE Administration Docusate Sodium 100 mg 07/15/18 12:00 08/04/18 10:16 Colace PO 100 mg BID HE Administration Doxazosin Mesylate 2 mg 07/18/18 12:00 08/04/18 10:17 Cardura PO 2 mg QDAY HE Administration Famotidine 20 mg 07/16/18 22:00 08/04/18 10:17 Pepcid PO 20 mg BID HE Administration Fentanyl 50 mcg 07/12/18 00:26 07/20/18 09:02 Sublimaze IV 50 mcg Q10MIN PRN Administration ANALGESIA Heparin Sodium (Porcine) 5,000 unit 08/03/18 22:00 08/04/18 10:17 Heparin SUB-Q 5,000 unit TID HE Administration Hydrophilic Ointment 1 applic 07/12/18 13:30 Vaseline Lip Therapy TP Q2HR PRN Dry Lips Fentanyl Citrate 2,000 mcg in 100 mls @ 3.065 mls/hr 07/12/18 01:00 08/04/18 04:48 Fentanyl Drip Premix IV 4 mcg/kg/hr TITR HE 12.26 mls/hr Administration Protocol 1 MCG/KG/HR Propofol 1,000 mg in 100 mls @ 1.839 mls/hr 07/12/18 01:00 08/03/18 12:13 Diprivan 10 Mg/Ml IV 0 mcg/kg/min TITR HE 0 mls/hr Titration Protocol 5 MCG/KG/MIN Midazolam HCl 100 mg/ Sodium 100 mls @ 2 mls/hr 07/18/18 13:30 08/03/18 12:08 Chloride IV 0 mg/hr TITR HE 0 mls/hr Titration Protocol 2 MG/HR Midazolam HCl 2 mg 07/16/18 13:06 07/26/18 17:42 Versed IV 2 mg Q2H PRN Administration AGITATION Midazolam HCl 2 mg 07/18/18 12:44 Versed IV Q10MIN PRN Sedation Multi-Ingred Cream/Lotion/Oil/Oint 1 applic 07/12/18 13:30 Artificial Tears Ophth Oint OU Q4HR PRN Dry Eye(s) Quetiapine Fumarate 300 mg 07/27/18 22:00 08/04/18 10:29 Seroquel PO 300 mg BID HE Administration Senna 17.2 mg 07/26/18 22:00 08/04/18 06:26 Senokot PO Not Given QHS HE Simple Syrup 15 ml 08/02/18 15:42 Simple Syrup FEEDTUBE PRN PRN Hypoglycemia Simple Syrup 30 ml 08/02/18 15:42 Simple Syrup FEEDTUBE PRN PRN Hypoglycemia Sodium Bicarbonate 325 mg 08/02/18 15:42 Sodium Bicarbonate FEEDTUBE PRN PRN For Clogged Feeding Tube Sodium Chloride 10 ml 07/11/18 22:00 08/04/18 10:18 Sodium Chloride Flush Syringe 10 Ml IV 10 ml BID HE Administration Sodium Chloride 10 ml 07/11/18 17:16 07/18/18 09:00 Sodium Chloride Flush Syringe 10 Ml IV 10 ml PRN PRN Administration LINE FLUSH Triamcinolone Acetonide 1 applic 08/03/18 11:00 08/04/18 10:19 Kenalog TP 08/12/18 22:01 1 applic BID HE Administration Trimethoprim/Sulfamethoxazole 160 mg 08/01/18 10:00 08/04/18 10:18 Bactrim 200-40 Mg/5 Ml PO 160 mg DAILY HE Administration Nutrition/Malnutrition Assess - Dietary Evaluation Nutrition/Malnutrition Findings: Nutrition Notes Start: 07/12/18 09:38 Freq: Status: Active Protocol: Document 08/02/18 15:08 RM (Rec: 08/02/18 15:20 [id number]) Nutrition Notes Initial or Follow up Reassessment Current Diagnosis Sepsis,Respiratory Failure Other Pertinent Diagnosis Bilat pneu, HIV/AIDS, Diarrhea Current Diet Nepro at 45 ml/hr Labs/Tests K 3.9 Pertinent Medications Reviewed Height 5 ft 11 in Weight 56.3 kg [place] Body Weight (kg) 78.18 BMI 17.3 Weight change and time frame Current wt obtained rom bedscale Subjective/Other Information During rounds MD requested reevaluation of TF formula d/t renal labs being WNL. [employer] recommends remaining on Nepro d/t elevated K when pt received Vital 1.2. Percent of energy/protein needs met: 100%/100% Burn Absent Trauma Absent #2 Nutrition Diagnosis Inadequate oral intake Diagnosis Progress(for reassessment Continues documentation) #1 Nutrition Diagnosis Malnutrition Diagnosis Progress(for reassessment Continues documentation) Is patient on ventilator? Yes Is Patient Ambulatory and/or Out of Bed No REE-([facility]-confined to bed) 1820.928 Kcal/Kg value to use for calculation 42 Approximate Energy Requirements Using 2365 kcal/Kg Calculation Used for Recommendations Kcal/kg Additional Notes Pro needs 1.2-2g/k-130g/ day Fluid needs 1ml/kcal Nutrition Intervention Nutrition Support: Increase Nepro to 55 ml/hr. Flush with 250 mls q 4 hrs. Kcal 2,376 Protein (gm) 107 Fluid (mL) 1,265 Goal #1 TF tolerance Goal #2 TF to continue to meet 90-100% energy and pro needs Goal #3 Wt maintenance and/or gain Anticipated Discharge Needs: Unable to determine at this time Follow-Up By: 08/07/18 Additional Comments Follow for TF tolerance
[2018-08-04] MEDS: TYLENOL FEEDTUBE PRN (17:23)
[2018-08-05] MEDS: fentaNYL DRIP Premix 2,000 MCG/100 ML BAG IV SCH ×2 (01:07→12:42)
[2018-08-05] MEDS: KENALOG TP SCH ×3 (02:34→21:07)
--- NOTE | 2018-08-05 07:01 | Progress Note ---
Assessment and Plan Acute Hypoxic respiratory failure on mechanical ventilation Severe sepsis with septic shock Severe ARDS Sepsis present on admission with grater than 2 SOFA criteria PJP (pneumocystis jiroveci pneumonia) Diarrhea Hyponatermia Syndrome Hyperkalemia Moderate Protein Malnutrition AIDS ANEMIA Elevated d/DIMER- NO PE noted Nicotine dependance/Tobacco use disorder Daily SBT trials, start ATP trials in the morning Continue all supportive care Wean fentanyl infusion, will change to intermittent analgesia PT/OT CXR in the morning Continue all care as documented below -Transfuse to keep HgB>7g/dL as indicated -VAP bundle addressed - Antibiotics, anti-infectives per ID service. -ART per ID service, Antibiotic prophylaxis for OI per ID - Continue bronchodilators with pulmonary hygiene per RT - Monitor renal indices closely - Avoid nephrotoxic agents - Strict intake and output monitoring - Tube feedings, on Vital AF at 65ml/hour - Aspiration precautions. HOB >40 -Stress ulcer prophylaxis -VTE prophylaxis - Accuchecks with glycemic control. Target glucose of 140-180 mg/dL - Maintenance of sleep -wake cycle - Mobility as tolerated by hemodynamics - Influenza and pneumonia vaccination per protocol ..care plan discussed at length with RN/RT at the bedside Subjective Date of service: 08/05/18 Principal diagnosis: Acute hypoxemic resp failure; Bilateral pneumonia (PJP); HIV/AIDS Interval history: Patient is seen today for: Acute hypoxemic respiratory failure, on mechanical ventilatory support; Bilateral pneumonia, high suspicion for Pneumocystis jiroveci pneumonia; Human immunodeficiency virus/acquired immunodeficiency syndrome,noncompliant with therapy; Hyponatremia; Severe protein calorie malnutrition. Seen and examined at bedside; 24-hour events reviewed; nursing and respiratory care staff consulted; no adverse overnight events reported to me; resting peacefully in bed. Awake and alert, No fevers, no vomiting, no diarrhea. Denies any chest pain, no shortness of breath, tolerating tube feedings; s/p trachesotomy, s/p PEG Tolerated 6 hours of PSV 12/16 yesterday, doing well. Objective Vital Signs - 12hr 08/04/18 08/04/18 08/04/18 19:51 19:55 20:00 Temperature 99.1 F Pulse Rate 113 H 104 H Respiratory 22 19 Rate Blood Pressure 110/66 115/71 O2 Sat by Pulse 98 100 Oximetry O2 Sat by Pulse Oximetry [ Assessment] 08/04/18 08/04/18 08/04/18 21:00 21:26 22:00 Temperature Pulse Rate 117 H 102 H 101 H Respiratory 17 20 19 Rate Blood Pressure 94/67 94/67 95/51 O2 Sat by Pulse 90 96 100 Oximetry O2 Sat by Pulse Oximetry [ Assessment] 08/04/18 08/04/18 08/04/18 23:00 23:02 23:06 Temperature Pulse Rate 110 H 108 H Respiratory 19 20 Rate Blood Pressure 96/53 96/56 O2 Sat by Pulse 96 98 Oximetry O2 Sat by Pulse 95 Oximetry [ Assessment] 08/04/18 08/05/18 08/05/18 23:37 00:00 01:00 Temperature 100.6 F H Pulse Rate 112 H 107 H Respiratory 17 16 Rate Blood Pressure 88/46 89/42 O2 Sat by Pulse 99 100 Oximetry O2 Sat by Pulse Oximetry [ Assessment] 08/05/18 08/05/18 08/05/18 02:00 02:37 03:00 Temperature 99.6 F Pulse Rate 107 H 101 H Respiratory 15 17 Rate Blood Pressure 90/51 82/52 O2 Sat by Pulse 99 100 Oximetry O2 Sat by Pulse Oximetry [ Assessment] 08/05/18 08/05/18 08/05/18 04:00 05:00 06:00 Temperature Pulse Rate 106 H 127 H 105 H Respiratory 14 17 11 L Rate Blood Pressure 78/51 94/56 97/56 O2 Sat by Pulse 99 97 99 Oximetry O2 Sat by Pulse Oximetry [ Assessment] Constitutional: no acute distress, other (young AAM; normocephalic and atraumatic) Eyes: non-icteric ENT: oropharynx moist, other (s/p trachesotomy) Neck: supple, no lymphadenopathy, no JVD, other (no thyromegaly) Effort: mildly labored Ascultation: Bilateral: diminished breath sounds, rales Percussion: Bilateral: not dull Cardiovascular: regular rate and rhythm, other (S1,S2, no murmurs, gallops or rubs) Gastrointestinal: normoactive bowel sounds, soft, non-tender, non-distended, other (PEG tube in place) Integumentary: normal Extremities: no cyanosis, no edema, pulses normal, no ischemia or petechiae Neurologic: normal mental status, non-focal exam, pupils equal and round, CN II- XII normal, motor strength normal and Psychiatric: mood appropriate, affect normal CBC and BMP: 08/05/18 08:03 08/05/18 08:03 ABG, PT/INR, D-dimer: ABG POC ABG pH 7.432 (7.35-7.45) 08/02/18 14:13 POC ABG pCO2 44.5 (35-45) 08/02/18 14:13 POC ABG pO2 82 (80-105) 08/02/18 14:13 POC ABG HCO3 29.7 (22-26 mml/L) 08/02/18 14:13 POC ABG Total CO2 31 (23-27mmol/L) 08/02/18 14:13 POC ABG O2 Sat 96 08/02/18 14:13 PT/INR, D-dimer 1298.70 ng/mlDDU (0-234) H 07/11/18 15:04 Abnormal lab findings: Abnormal Labs 07/11/18 07/11/18 07/11/18 14:06 14:06 15:04 RBC 3.30 L Hgb 9.6 L Hct 28.7 L MCHC RDW Plt Count Lymph % (Auto) Lymph # Seg Neutrophils % Abs Lymphs (Manual) D-Dimer 1298.70 H POC ABG pH POC ABG pCO2 POC ABG pO2 Sodium 132 L Potassium Chloride Carbon Dioxide BUN Creatinine 0.6 L Glucose 103 H POC Glucose Calcium 7.3 L AST ALT Lactate Dehydrogenase C-Reactive Protein Total Protein Albumin 2.1 L Triglycerides Lymph Enumerat CD4/CD8 % CD3 Cells Absolute CD3 Count % CD4 Cells Absolute CD4 Count % CD8 Cells Absolute CD8 Count % CD19 Cells Absolute CD19 Count HIV-1 RNA PCR copies/ml HIV-1 RNA (PCR) log HIV-1 Genotyping Miscellaneous Test Crossmatch 07/11/18 07/11/18 07/12/18 17:36 22:15 00:25 RBC Hgb Hct MCHC RDW Plt Count Lymph % (Auto) Lymph # Seg Neutrophils % Abs Lymphs (Manual) D-Dimer POC ABG pH 7.289 L POC ABG pCO2 POC ABG pO2 66 L Sodium Potassium Chloride Carbon Dioxide BUN Creatinine Glucose POC Glucose Calcium AST ALT Lactate Dehydrogenase 591 H C-Reactive Protein Total Protein Albumin Triglycerides Lymph Enumerat CD4/CD8 % CD3 Cells Absolute CD3 Count % CD4 Cells Absolute CD4 Count % CD8 Cells Absolute CD8 Count % CD19 Cells Absolute CD19 Count HIV-1 RNA PCR copies/ml HIV-1 RNA (PCR) log HIV-1 Genotyping Miscellaneous Test see below H Crossmatch 07/12/18 07/12/18 07/12/18 00:41 05:37 19:29 RBC Hgb Hct MCHC RDW Plt Count Lymph % (Auto) Lymph # Seg Neutrophils % Abs Lymphs (Manual) D-Dimer POC ABG pH 7.302 L 7.275 L POC ABG pCO2 47.1 H POC ABG pO2 Sodium Potassium Chloride Carbon Dioxide BUN Creatinine Glucose POC Glucose Calcium AST ALT Lactate Dehydrogenase 731 H C-Reactive Protein Total Protein Albumin Triglycerides Lymph Enumerat CD4/CD8 % CD3 Cells Absolute CD3 Count % CD4 Cells Absolute CD4 Count % CD8 Cells Absolute CD8 Count % CD19 Cells Absolute CD19 Count HIV-1 RNA PCR copies/ml HIV-1 RNA (PCR) log HIV-1 Genotyping Miscellaneous Test Crossmatch 07/12/18 07/12/18 07/13/18 19:29 19:29 04:03 RBC Hgb Hct MCHC RDW Plt Count Lymph % (Auto) Lymph # Seg Neutrophils % Abs Lymphs (Manual) 220 L D-Dimer POC ABG pH 7.254 L POC ABG pCO2 49.2 H POC ABG pO2 Sodium Potassium Chloride Carbon Dioxide BUN Creatinine Glucose POC Glucose Calcium AST ALT Lactate Dehydrogenase C-Reactive Protein Total Protein Albumin Triglycerides Lymph Enumerat CD4/CD8 0.04 L % CD3 Cells 88 H Absolute CD3 Count 194 L % CD4 Cells 3 L Absolute CD4 Count 7 L % CD8 Cells 75 H Absolute CD8 Count 177 L % CD19 Cells 4 L Absolute CD19 Count 9 L HIV-1 RNA PCR copies/ml 002205 H HIV-1 RNA (PCR) log 5.72 H HIV-1 Genotyping Miscellaneous Test Crossmatch 07/13/18 07/13/18 07/13/18 05:46 12:23 18:31 RBC Hgb Hct MCHC RDW Plt Count Lymph % (Auto) Lymph # Seg Neutrophils % Abs Lymphs (Manual) D-Dimer POC ABG pH POC ABG pCO2 POC ABG pO2 Sodium Potassium Chloride Carbon Dioxide BUN Creatinine Glucose POC Glucose 68 L 106 H 112 H Calcium AST ALT Lactate Dehydrogenase C-Reactive Protein Total Protein Albumin Triglycerides Lymph Enumerat CD4/CD8 % CD3 Cells Absolute CD3 Count % CD4 Cells Absolute CD4 Count % CD8 Cells Absolute CD8 Count % CD19 Cells Absolute CD19 Count HIV-1 RNA PCR copies/ml HIV-1 RNA (PCR) log HIV-1 Genotyping Miscellaneous Test Crossmatch 07/14/18 07/14/18 07/14/18 04:19 05:36 05:36 RBC 2.99 L Hgb 8.8 L Hct 25.7 L MCHC RDW 15.5 H Plt Count Lymph % (Auto) Lymph # Seg Neutrophils % Abs Lymphs (Manual) D-Dimer POC ABG pH 7.337 L POC ABG pCO2 POC ABG pO2 Sodium 135 L Potassium Chloride Carbon Dioxide 21 L BUN Creatinine 0.7 L Glucose 123 H POC Glucose Calcium 8.2 L AST ALT Lactate Dehydrogenase C-Reactive Protein Total Protein Albumin Triglycerides Lymph Enumerat CD4/CD8 % CD3 Cells Absolute CD3 Count % CD4 Cells Absolute CD4 Count % CD8 Cells Absolute CD8 Count % CD19 Cells Absolute CD19 Count HIV-1 RNA PCR copies/ml HIV-1 RNA (PCR) log HIV-1 Genotyping Miscellaneous Test Crossmatch 07/14/18 07/14/18 07/14/18 12:14 14:33 17:18 RBC Hgb Hct MCHC RDW Plt Count Lymph % (Auto) Lymph # Seg Neutrophils % Abs Lymphs (Manual) D-Dimer POC ABG pH 7.325 L POC ABG pCO2 POC ABG pO2 75 L Sodium Potassium Chloride Carbon Dioxide BUN Creatinine Glucose POC Glucose 174 H 114 H Calcium AST ALT Lactate Dehydrogenase C-Reactive Protein Total Protein Albumin Triglycerides Lymph Enumerat CD4/CD8 % CD3 Cells Absolute CD3 Count % CD4 Cells Absolute CD4 Count % CD8 Cells Absolute CD8 Count % CD19 Cells Absolute CD19 Count HIV-1 RNA PCR copies/ml HIV-1 RNA (PCR) log HIV-1 Genotyping Miscellaneous Test Crossmatch 07/15/18 07/15/18 07/15/18 00:17 12:29 12:29 RBC 2.64 L Hgb 7.5 L Hct 22.9 L MCHC RDW 15.4 H Plt Count Lymph % (Auto) 7.0 L Lymph # 0.4 L Seg Neutrophils % 89.6 H Abs Lymphs (Manual) D-Dimer POC ABG pH POC ABG pCO2 POC ABG pO2 Sodium Potassium Chloride Carbon Dioxide BUN Creatinine 0.6 L Glucose 124 H POC Glucose 113 H Calcium 7.3 L AST ALT Lactate Dehydrogenase C-Reactive Protein Total Protein Albumin Triglycerides Lymph Enumerat CD4/CD8 % CD3 Cells Absolute CD3 Count % CD4 Cells Absolute CD4 Count % CD8 Cells Absolute CD8 Count % CD19 Cells Absolute CD19 Count HIV-1 RNA PCR copies/ml HIV-1 RNA (PCR) log HIV-1 Genotyping Miscellaneous Test Crossmatch 07/15/18 07/16/18 07/16/18 14:09 04:46 07:21 RBC Hgb Hct MCHC RDW Plt Count Lymph % (Auto) Lymph # Seg Neutrophils % Abs Lymphs (Manual) D-Dimer POC ABG pH 7.282 L POC ABG pCO2 52.6 H POC ABG pO2 63 L Sodium Potassium Chloride Carbon Dioxide BUN Creatinine Glucose POC Glucose Calcium AST ALT Lactate Dehydrogenase C-Reactive Protein 2.70 H Total Protein Albumin Triglycerides Lymph Enumerat CD4/CD8 % CD3 Cells Absolute CD3 Count % CD4 Cells Absolute CD4 Count % CD8 Cells Absolute CD8 Count % CD19 Cells Absolute CD19 Count HIV-1 RNA PCR copies/ml HIV-1 RNA (PCR) log HIV-1 Genotyping Miscellaneous Test Flexitest 1 H Crossmatch 07/16/18 07/16/18 07/16/18 07:21 07:21 16:16 RBC 2.48 L Hgb 7.2 L Hct 21.5 L MCHC RDW 15.7 H Plt Count Lymph % (Auto) Lymph # Seg Neutrophils % Abs Lymphs (Manual) D-Dimer POC ABG pH 7.251 L POC ABG pCO2 62.2 H POC ABG pO2 Sodium 136 L Potassium Chloride Carbon Dioxide BUN Creatinine 0.6 L Glucose 118 H POC Glucose Calcium 7.5 L AST ALT Lactate Dehydrogenase C-Reactive Protein Total Protein Albumin Triglycerides Lymph Enumerat CD4/CD8 % CD3 Cells Absolute CD3 Count % CD4 Cells Absolute CD4 Count % CD8 Cells Absolute CD8 Count % CD19 Cells Absolute CD19 Count HIV-1 RNA PCR copies/ml HIV-1 RNA (PCR) log HIV-1 Genotyping Miscellaneous Test Crossmatch 07/17/18 07/18/18 07/18/18 04:01 01:10 03:10 RBC 2.20 L Hgb 6.5 L Hct 19.2 L* MCHC RDW 16.0 H Plt Count Lymph % (Auto) 7.2 L Lymph # 0.5 L Seg Neutrophils % 89.9 H Abs Lymphs (Manual) D-Dimer POC ABG pH 7.245 L POC ABG pCO2 63.8 H POC ABG pO2 75 L Sodium Potassium Chloride Carbon Dioxide BUN Creatinine Glucose POC Glucose Calcium AST ALT Lactate Dehydrogenase C-Reactive Protein Total Protein Albumin Triglycerides Lymph Enumerat CD4/CD8 % CD3 Cells Absolute CD3 Count % CD4 Cells Absolute CD4 Count % CD8 Cells Absolute CD8 Count % CD19 Cells Absolute CD19 Count HIV-1 RNA PCR copies/ml HIV-1 RNA (PCR) log HIV-1 Genotyping Miscellaneous Test Crossmatch See Detail 07/18/18 07/18/18 07/18/18 04:54 05:02 12:59 RBC Hgb Hct MCHC RDW Plt Count Lymph % (Auto) Lymph # Seg Neutrophils % Abs Lymphs (Manual) D-Dimer POC ABG pH 7.615 H POC ABG pCO2 32.6 L 48.8 H POC ABG pO2 79 L 118 H Sodium Potassium Chloride Carbon Dioxide BUN Creatinine Glucose POC Glucose 164 H Calcium AST ALT Lactate Dehydrogenase C-Reactive Protein Total Protein Albumin Triglycerides Lymph Enumerat CD4/CD8 % CD3 Cells Absolute CD3 Count % CD4 Cells Absolute CD4 Count % CD8 Cells Absolute CD8 Count % CD19 Cells Absolute CD19 Count HIV-1 RNA PCR copies/ml HIV-1 RNA (PCR) log HIV-1 Genotyping Miscellaneous Test Crossmatch 07/18/18 07/18/18 07/19/18 18:25 20:39 03:53 RBC Hgb Hct MCHC RDW Plt Count Lymph % (Auto) Lymph # Seg Neutrophils % Abs Lymphs (Manual) D-Dimer POC ABG pH 7.339 L POC ABG pCO2 59.9 H 65.0 H POC ABG pO2 69 L Sodium Potassium Chloride Carbon Dioxide BUN Creatinine Glucose POC Glucose 155 H Calcium AST ALT Lactate Dehydrogenase C-Reactive Protein Total Protein Albumin Triglycerides Lymph Enumerat CD4/CD8 % CD3 Cells Absolute CD3 Count % CD4 Cells Absolute CD4 Count % CD8 Cells Absolute CD8 Count % CD19 Cells Absolute CD19 Count HIV-1 RNA PCR copies/ml HIV-1 RNA (PCR) log HIV-1 Genotyping Miscellaneous Test Crossmatch 07/19/18 07/19/18 07/19/18 08:10 08:10 10:52 RBC 2.51 L Hgb 7.4 L Hct 22.0 L MCHC RDW 15.5 H Plt Count Lymph % (Auto) Lymph # Seg Neutrophils % Abs Lymphs (Manual) D-Dimer POC ABG pH POC ABG pCO2 POC ABG pO2 Sodium 130 L Potassium Chloride 89.0 L Carbon Dioxide 33 H BUN Creatinine 0.4 L Glucose 150 H POC Glucose 173 H Calcium 7.5 L AST ALT Lactate Dehydrogenase C-Reactive Protein Total Protein Albumin Triglycerides Lymph Enumerat CD4/CD8 % CD3 Cells Absolute CD3 Count % CD4 Cells Absolute CD4 Count % CD8 Cells Absolute CD8 Count % CD19 Cells Absolute CD19 Count HIV-1 RNA PCR copies/ml HIV-1 RNA (PCR) log HIV-1 Genotyping Miscellaneous Test Crossmatch 07/19/18 07/19/18 07/20/18 17:06 23:47 04:37 RBC Hgb Hct MCHC RDW Plt Count Lymph % (Auto) Lymph # Seg Neutrophils % Abs Lymphs (Manual) D-Dimer POC ABG pH POC ABG pCO2 58.5 H POC ABG pO2 67 L Sodium Potassium Chloride Carbon Dioxide BUN Creatinine Glucose POC Glucose 117 H 114 H Calcium AST ALT Lactate Dehydrogenase C-Reactive Protein Total Protein Albumin Triglycerides Lymph Enumerat CD4/CD8 % CD3 Cells Absolute CD3 Count % CD4 Cells Absolute CD4 Count % CD8 Cells Absolute CD8 Count % CD19 Cells Absolute CD19 Count HIV-1 RNA PCR copies/ml HIV-1 RNA (PCR) log HIV-1 Genotyping Miscellaneous Test Crossmatch 07/20/18 07/20/18 07/21/18 06:20 06:20 04:18 RBC 2.69 L Hgb 7.8 L Hct 23.6 L MCHC RDW 15.5 H Plt Count Lymph % (Auto) Lymph # Seg Neutrophils % Abs Lymphs (Manual) D-Dimer POC ABG pH 7.456 H POC ABG pCO2 60.4 H POC ABG pO2 64 L Sodium 134 L Potassium Chloride 89.2 L Carbon Dioxide 38 H BUN Creatinine 0.7 L D Glucose 120 H POC Glucose Calcium 7.6 L AST ALT Lactate Dehydrogenase C-Reactive Protein Total Protein Albumin Triglycerides Lymph Enumerat CD4/CD8 % CD3 Cells Absolute CD3 Count % CD4 Cells Absolute CD4 Count % CD8 Cells Absolute CD8 Count % CD19 Cells Absolute CD19 Count HIV-1 RNA PCR copies/ml HIV-1 RNA (PCR) log HIV-1 Genotyping Miscellaneous Test Crossmatch 07/21/18 07/21/18 07/22/18 04:35 04:35 04:16 RBC 2.62 L 2.37 L Hgb 7.7 L 7.0 L Hct 23.1 L 21.1 L MCHC RDW 15.4 H Plt Count Lymph % (Auto) Lymph # Seg Neutrophils % Abs Lymphs (Manual) D-Dimer POC ABG pH POC ABG pCO2 POC ABG pO2 Sodium 129 L Potassium 5.3 H Chloride 85.3 L Carbon Dioxide 38 H BUN Creatinine 0.4 L Glucose 108 H POC Glucose Calcium 8.0 L AST ALT Lactate Dehydrogenase C-Reactive Protein Total Protein Albumin Triglycerides Lymph Enumerat CD4/CD8 % CD3 Cells Absolute CD3 Count % CD4 Cells Absolute CD4 Count % CD8 Cells Absolute CD8 Count % CD19 Cells Absolute CD19 Count HIV-1 RNA PCR copies/ml HIV-1 RNA (PCR) log HIV-1 Genotyping Miscellaneous Test Crossmatch 07/22/18 07/23/18 07/23/18 04:16 03:25 12:45 RBC Hgb Hct MCHC RDW Plt Count Lymph % (Auto) Lymph # Seg Neutrophils % Abs Lymphs (Manual) D-Dimer POC ABG pH POC ABG pCO2 69.4 H POC ABG pO2 Sodium 132 L 125 L D Potassium 5.4 H 5.3 H Chloride 87.4 L 80.3 L Carbon Dioxide 38 H 38 H BUN Creatinine 0.4 L 0.3 L Glucose 117 H 124 H POC Glucose Calcium 7.5 L 7.4 L AST ALT Lactate Dehydrogenase C-Reactive Protein Total Protein Albumin Triglycerides Lymph Enumerat CD4/CD8 % CD3 Cells Absolute CD3 Count % CD4 Cells Absolute CD4 Count % CD8 Cells Absolute CD8 Count % CD19 Cells Absolute CD19 Count HIV-1 RNA PCR copies/ml HIV-1 RNA (PCR) log HIV-1 Genotyping Miscellaneous Test Crossmatch 07/23/18 07/24/18 07/24/18 23:52 04:30 04:30 RBC 2.12 L Hgb 6.3 L Hct 18.9 L* MCHC RDW Plt Count Lymph % (Auto) Lymph # Seg Neutrophils % Abs Lymphs (Manual) D-Dimer POC ABG pH POC ABG pCO2 POC ABG pO2 Sodium 127 L Potassium 5.2 H Chloride 83.9 L Carbon Dioxide 39 H BUN Creatinine 0.3 L Glucose POC Glucose 118 H Calcium 7.5 L AST ALT Lactate Dehydrogenase C-Reactive Protein Total Protein Albumin Triglycerides Lymph Enumerat CD4/CD8 % CD3 Cells Absolute CD3 Count % CD4 Cells Absolute CD4 Count % CD8 Cells Absolute CD8 Count % CD19 Cells Absolute CD19 Count HIV-1 RNA PCR copies/ml HIV-1 RNA (PCR) log HIV-1 Genotyping Miscellaneous Test Crossmatch 07/24/18 07/24/18 07/24/18 05:11 05:30 07:50 RBC Hgb Hct MCHC RDW Plt Count Lymph % (Auto) Lymph # Seg Neutrophils % Abs Lymphs (Manual) D-Dimer POC ABG pH 7.462 H POC ABG pCO2 58.7 H POC ABG pO2 79 L Sodium Potassium Chloride Carbon Dioxide BUN Creatinine Glucose POC Glucose 145 H Calcium AST ALT Lactate Dehydrogenase C-Reactive Protein Total Protein Albumin Triglycerides Lymph Enumerat CD4/CD8 % CD3 Cells Absolute CD3 Count % CD4 Cells Absolute CD4 Count % CD8 Cells Absolute CD8 Count % CD19 Cells Absolute CD19 Count HIV-1 RNA PCR copies/ml HIV-1 RNA (PCR) log HIV-1 Genotyping Miscellaneous Test Crossmatch See Detail 07/25/18 07/25/18 07/25/18 09:30 09:30 17:05 RBC 2.99 L Hgb 9.1 L Hct 27.0 L D MCHC RDW Plt Count Lymph % (Auto) Lymph # Seg Neutrophils % Abs Lymphs (Manual) D-Dimer POC ABG pH POC ABG pCO2 POC ABG pO2 Sodium 131 L Potassium 5.1 H Chloride 84.4 L Carbon Dioxide 39 H BUN Creatinine 0.3 L Glucose 133 H POC Glucose Calcium 8.0 L AST ALT Lactate Dehydrogenase C-Reactive Protein Total Protein Albumin Triglycerides Lymph Enumerat CD4/CD8 % CD3 Cells Absolute CD3 Count % CD4 Cells Absolute CD4 Count % CD8 Cells Absolute CD8 Count % CD19 Cells Absolute CD19 Count HIV-1 RNA PCR copies/ml HIV-1 RNA (PCR) log HIV-1 Genotyping Detected H Miscellaneous Test Crossmatch 07/26/18 07/26/18 07/26/18 00:18 04:07 05:50 RBC 3.01 L Hgb 9.4 L Hct 27.2 L MCHC 35 H RDW Plt Count Lymph % (Auto) 10.4 L Lymph # 0.9 L Seg Neutrophils % 84.2 H Abs Lymphs (Manual) D-Dimer POC ABG pH 7.456 H POC ABG pCO2 61.4 H POC ABG pO2 68 L Sodium 135 L Potassium 5.5 H Chloride 88.4 L Carbon Dioxide 38 H BUN Creatinine 0.3 L Glucose POC Glucose Calcium AST ALT Lactate Dehydrogenase C-Reactive Protein Total Protein Albumin Triglycerides Lymph Enumerat CD4/CD8 % CD3 Cells Absolute CD3 Count % CD4 Cells Absolute CD4 Count % CD8 Cells Absolute CD8 Count % CD19 Cells Absolute CD19 Count HIV-1 RNA PCR copies/ml HIV-1 RNA (PCR) log HIV-1 Genotyping Miscellaneous Test Crossmatch 07/26/18 07/26/18 07/27/18 05:50 14:56 14:26 RBC Hgb Hct MCHC RDW Plt Count Lymph % (Auto) Lymph # Seg Neutrophils % Abs Lymphs (Manual) D-Dimer POC ABG pH 7.472 H POC ABG pCO2 66.0 H 57.4 H POC ABG pO2 56 L 59 L Sodium 131 L Potassium 5.1 H Chloride 84.5 L Carbon Dioxide 39 H BUN Creatinine 0.3 L Glucose POC Glucose Calcium AST 78 H ALT 71 H Lactate Dehydrogenase C-Reactive Protein Total Protein 6.0 L Albumin 2.5 L Triglycerides Lymph Enumerat CD4/CD8 % CD3 Cells Absolute CD3 Count % CD4 Cells Absolute CD4 Count % CD8 Cells Absolute CD8 Count % CD19 Cells Absolute CD19 Count HIV-1 RNA PCR copies/ml HIV-1 RNA (PCR) log HIV-1 Genotyping Miscellaneous Test Crossmatch 07/28/18 07/28/18 07/28/18 05:20 05:20 05:20 RBC 3.21 L Hgb 10.0 L Hct 29.9 L MCHC RDW 15.4 H Plt Count 451 H Lymph % (Auto) Lymph # Seg Neutrophils % 81.6 H Abs Lymphs (Manual) D-Dimer POC ABG pH POC ABG pCO2 POC ABG pO2 Sodium 136 L Potassium Chloride 89.9 L Carbon Dioxide 38 H BUN Creatinine 0.4 L Glucose POC Glucose Calcium 8.1 L AST 104 H ALT 113 H Lactate Dehydrogenase C-Reactive Protein Total Protein 6.2 L Albumin 2.5 L Triglycerides 209 H Lymph Enumerat CD4/CD8 % CD3 Cells Absolute CD3 Count % CD4 Cells Absolute CD4 Count % CD8 Cells Absolute CD8 Count % CD19 Cells Absolute CD19 Count HIV-1 RNA PCR copies/ml HIV-1 RNA (PCR) log HIV-1 Genotyping Miscellaneous Test Crossmatch 07/28/18 07/28/18 07/29/18 06:08 17:22 04:28 RBC Hgb Hct MCHC RDW Plt Count Lymph % (Auto) Lymph # Seg Neutrophils % Abs Lymphs (Manual) D-Dimer POC ABG pH 7.328 L POC ABG pCO2 65.7 H 55.1 H POC ABG pO2 70 L 113 H 76 L Sodium Potassium Chloride Carbon Dioxide BUN Creatinine Glucose POC Glucose Calcium AST ALT Lactate Dehydrogenase C-Reactive Protein Total Protein Albumin Triglycerides Lymph Enumerat CD4/CD8 % CD3 Cells Absolute CD3 Count % CD4 Cells Absolute CD4 Count % CD8 Cells Absolute CD8 Count % CD19 Cells Absolute CD19 Count HIV-1 RNA PCR copies/ml HIV-1 RNA (PCR) log HIV-1 Genotyping Miscellaneous Test Crossmatch 08/02/18 08/02/18 08/03/18 06:30 06:30 06:30 RBC 2.96 L 2.78 L Hgb 9.4 L 9.0 L Hct 27.6 L 26.3 L MCHC RDW 18.4 H 19.6 H Plt Count Lymph % (Auto) 11.1 L Lymph # 0.6 L 0.7 L Seg Neutrophils % 84.0 H 79.0 H Abs Lymphs (Manual) D-Dimer POC ABG pH POC ABG pCO2 POC ABG pO2 Sodium 133 L Potassium Chloride 92.7 L Carbon Dioxide BUN 22 H Creatinine 0.5 L Glucose POC Glucose Calcium 8.1 L AST ALT Lactate Dehydrogenase C-Reactive Protein Total Protein Albumin Triglycerides Lymph Enumerat CD4/CD8 % CD3 Cells Absolute CD3 Count % CD4 Cells Absolute CD4 Count % CD8 Cells Absolute CD8 Count % CD19 Cells Absolute CD19 Count HIV-1 RNA PCR copies/ml HIV-1 RNA (PCR) log HIV-1 Genotyping Miscellaneous Test Crossmatch 08/03/18 08/04/18 06:30 17:13 RBC Hgb Hct MCHC RDW Plt Count Lymph % (Auto) Lymph # Seg Neutrophils % Abs Lymphs (Manual) D-Dimer POC ABG pH POC ABG pCO2 POC ABG pO2 Sodium 131 L Potassium Chloride 92.0 L Carbon Dioxide BUN Creatinine 0.3 L Glucose POC Glucose 120 H Calcium 8.0 L AST ALT Lactate Dehydrogenase C-Reactive Protein Total Protein 6.0 L Albumin 2.4 L Triglycerides Lymph Enumerat CD4/CD8 % CD3 Cells Absolute CD3 Count % CD4 Cells Absolute CD4 Count % CD8 Cells Absolute CD8 Count % CD19 Cells Absolute CD19 Count HIV-1 RNA PCR copies/ml HIV-1 RNA (PCR) log HIV-1 Genotyping Miscellaneous Test Crossmatch Allied health notes reviewed: RT
[2018-08-05 08:11] LABS: Basophils % (Auto) 0.6 % (0.0-1.8); Eosinophils # (Auto) 0.1 K/mm3 (0.0-0.4); Eosinophils % (Auto) 1.7 % (0.0-4.3); Hematocrit 25.8 % (35.5-45.6); Hemoglobin 8.8 gm/dl (11.8-15.2); Lymphocytes # (Auto) 0.9 K/mm3 (1.2-5.4); Lymphocytes % (Auto) 17.8 % (13.4-35.0); Mean Corpuscular HGB Conc 34 % (32-34); Mean Corpuscular Volume 93 fl (84-94); Monocytes # (Auto) 0.2 K/mm3 (0.0-0.8); Monocytes % (Auto) 3.3 % (0.0-7.3); Platelet Count 401 K/mm3 (140-440); Red Blood Count 2.77 M/mm3 (3.65-5.03)
[2018-08-05 08:15] LABS: Red Cell Distribution Width 20.4 % (13.2-15.2)
[2018-08-05 08:29] LABS: BUN/Creatinine Ratio 50; Blood Urea Nitrogen 15 mg/dL (9-20); Hemolysis Index 18
[2018-08-05] MEDS: HEPARIN SUB-Q SCH ×3 (09:16→21:10)
[2018-08-05] MEDS: CARDURA PO SCH (09:16)
[2018-08-05] MEDS: PEPCID PO SCH ×2 (09:16→21:07)
[2018-08-05] MEDS: COLACE PO SCH (09:16)
[2018-08-05] MEDS: VALGANCICLOVIR FEEDTUBE SCH ×2 (09:18→21:29)
[2018-08-05] MEDS: BACTRIM 200-40 MG/5 ML PO SCH (09:18)
[2018-08-05] MEDS: SODIUM CHLORIDE FLUSH SYRINGE 10 ML IV SCH ×3 (09:20→21:30)
--- NOTE | 2018-08-05 10:17 | Progress Note ---
Assessment and Plan Assessment and plan: --Acute hypoxic respiratory failure vent dependent > 96 hrs s/p Trach and PEG placement, Continue ventilatory support Wean as As tolerated and extubate --s/p PEG :Peg care,PEG feeds per protocol --Sepsis present on admission /bilateral pneumonia /MRSA tracheal aspirate s/p ABX, per ID, monitor CBC, Isolation precautions --Pneumonia(pneumocystis jirovecii pneumonia positive stain): antivirals and iv bactrim among others, ID following --Diarrhea: Improving --Hyponatremia:sodium levels improving --Severe Malnutrition : [employer] following --History of HIV-AIDS; noncompliance with medications, ID following --Acute blood loss anemia; received 2 units PRBC hb improved to 9 -- Elevated d dimers: CTA chest Neg PE --Discharge planning. Case management/social issues --Evaluation for LTAC placement Monitor closely and adjust the management as needed Critical care time 32 minutes History Interval history: Patient seen and examined medical records reviewed Status post tracheostomy on vent No new complaints Vital signs reviewed Hospitalist Physical - Constitutional Vitals: Temp Pulse Resp BP Pulse Ox 99.6 F 105 H 17 121/78 100 08/05/18 02:37 08/05/18 09:16 08/05/18 08:35 08/05/18 09:16 08/05/18 08:35 General appearance: Present: no acute distress, cachectic, disheveled, other (tracheostomy and vent) - EENT Eyes: Present: PERRL, EOM intact - Neck Neck: Present: supple, normal ROM, other (tracheostomy) - Respiratory Respiratory effort: normal Respiratory: bilateral: diminished, rhonchi, negative: rales, wheezing - Cardiovascular Rhythm: regular Heart Sounds: Present: S1 & S2 - Extremities Extremities: no ischemia, No edema - Abdominal General gastrointestinal: soft, non-tender, non-distended, normal bowel sounds, other (PEG tube in place) - Integumentary Integumentary: Present: clear, warm - Psychiatric Psychiatric: appropriate mood/affect, cooperative - Neurologic Neurologic: CNII-XII intact, moves all extremities Results - Labs CBC & Chem 7: 08/05/18 08:03 08/05/18 08:03 Labs: Laboratory Last Values WBC 5.1 K/mm3 (4.5-11.0) 08/05/18 08:03 RBC 2.77 M/mm3 (3.65-5.03) L 08/05/18 08:03 Hgb 8.8 gm/dl (11.8-15.2) L 08/05/18 08:03 Hct 25.8 % (35.5-45.6) L 08/05/18 08:03 MCV 93 fl (84-94) 08/05/18 08:03 MCH 32 pg (28-32) 08/05/18 08:03 MCHC 34 % (32-34) 08/05/18 08:03 RDW 20.4 % (13.2-15.2) H 08/05/18 08:03 Plt Count 401 K/mm3 (140-440) 08/05/18 08:03 Lymph % (Auto) 17.8 % (13.4-35.0) 08/05/18 08:03 [place] % (Auto) 3.3 % (0.0-7.3) 08/05/18 08:03 Eos % (Auto) 1.7 % (0.0-4.3) 08/05/18 08:03 Baso % (Auto) 0.6 % (0.0-1.8) 08/05/18 08:03 Lymph # 0.9 K/mm3 (1.2-5.4) L 08/05/18 08:03 [place] # 0.2 K/mm3 (0.0-0.8) 08/05/18 08:03 Eos # 0.1 K/mm3 (0.0-0.4) 08/05/18 08:03 Baso # 0.0 K/mm3 (0.0-0.1) 08/05/18 08:03 Add Manual Diff Complete 07/25/18 09:30 Total Counted 100 07/25/18 09:30 Seg Neutrophils % 76.6 % (40.0-70.0) H 08/05/18 08:03 Seg Neuts % (Manual) 63.0 % (40.0-70.0) 07/25/18 09:30 0 % 07/25/18 09:30 35.0 % (13.4-35.0) 07/25/18 09:30 Reactive Lymphs % (Man) 0 % 07/25/18 09:30 1.0 % (0.0-7.3) 07/25/18 09:30 0 % (0.0-4.3) 07/25/18 09:30 0 % (0.0-1.8) 07/25/18 09:30 0 % 07/25/18 09:30 1.0 % 07/25/18 09:30 0 % 07/25/18 09:30 0 % 07/25/18 09:30 Nucleated RBC % Not Reportable 07/25/18 09:30 Seg Neutrophils # 3.9 K/mm3 (1.8-7.7) 08/05/18 08:03 Seg Neutrophils # Man 4.9 K/mm3 (1.8-7.7) 07/25/18 09:30 Band Neutrophils # 0.0 K/mm3 07/25/18 09:30 Abs Lymphs (Manual) 220 cells/uL (850-3900) L 07/12/18 19:29 2.7 K/mm3 (1.2-5.4) 07/25/18 09:30 Abs React Lymphs (Man) 0.0 K/mm3 07/25/18 09:30 0.1 K/mm3 (0.0-0.8) 07/25/18 09:30 0.0 K/mm3 (0.0-0.4) 07/25/18 09:30 0.0 K/mm3 (0.0-0.1) 07/25/18 09:30 0.0 K/mm3 07/25/18 09:30 0.1 K/mm3 07/25/18 09:30 0.0 K/mm3 07/25/18 09:30 Blast Cells # 0.0 K/mm3 07/25/18 09:30 WBC Morphology Not Reportable 07/25/18 09:30 Hypersegmented Neuts Not Reportable 07/25/18 09:30 Hyposegmented Neuts Not Reportable 07/25/18 09:30 Hypogranular Neuts Not Reportable 07/25/18 09:30 Not Reportable 07/25/18 09:30 Not Reportable 07/25/18 09:30 Not Reportable 07/25/18 09:30 Not Reportable 07/25/18 09:30 Not Reportable 07/25/18 09:30 Not Reportable 07/25/18 09:30 Consistent w auto 07/25/18 09:30 Not Reportable 07/25/18 09:30 Plt Clumps, EDTA Not Reportable 07/25/18 09:30 Not Reportable 07/25/18 09:30 Not Reportable 07/25/18 09:30 Not Reportable 07/25/18 09:30 Plt Morphology Comment Not Reportable 07/25/18 09:30 RBC Morphology Not Reportable 07/25/18 09:30 Dimorphic RBCs Not Reportable 07/25/18 09:30 Few 07/25/18 09:30 Not Reportable 07/25/18 09:30 Not Reportable 07/25/18 09:30 1+ 07/25/18 09:30 Not Reportable 07/25/18 09:30 Few 07/25/18 09:30 Not Reportable 07/25/18 09:30 Not Reportable 07/25/18 09:30 Not Reportable 07/25/18 09:30 Rare 07/25/18 09:30 Not Reportable 07/25/18 09:30 Not Reportable 07/25/18 09:30 Not Reportable 07/25/18 09:30 Not Reportable 07/25/18 09:30 Not Reportable 07/25/18 09:30 Not Reportable 07/25/18 09:30 Not Reportable 07/25/18 09:30 Not Reportable 07/25/18 09:30 Not Reportable 07/25/18 09:30 Acanthocytes (Spur) Not Reportable 07/25/18 09:30 Rouleaux Not Reportable 07/25/18 09:30 Not Reportable 07/25/18 09:30 Not Reportable 07/25/18 09:30 Not Reportable 07/25/18 09:30 Not Reportable 07/25/18 09:30 Hem Pathologist Commnt No 07/25/18 09:30 1298.70 ng/mlDDU (0-234) H 07/11/18 15:04 POC ABG pH 7.432 (7.35-7.45) 08/02/18 14:13 POC ABG pCO2 44.5 (35-45) 08/02/18 14:13 POC ABG pO2 82 (80-105) 08/02/18 14:13 POC ABG HCO3 29.7 (22-26 mml/L) 08/02/18 14:13 POC ABG Total CO2 31 (23-27mmol/L) 08/02/18 14:13 POC ABG O2 Sat 96 08/02/18 14:13 POC ABG Base Excess 5 ((-2) - (+3)mmol/L) 08/02/18 14:13 40 % 08/02/18 14:13 Sodium 132 mmol/L (137-145) L 08/05/18 08:03 Potassium 4.2 mmol/L (3.6-5.0) 08/05/18 08:03 Chloride 93.0 mmol/L (98-107) L 08/05/18 08:03 Carbon Dioxide 29 mmol/L (22-30) 08/05/18 08:03 14 mmol/L 08/05/18 08:03 BUN 15 mg/dL (9-20) 08/05/18 08:03 0.3 mg/dL (0.8-1.5) L 08/05/18 08:03 Estimated GFR > 60 ml/min 08/05/18 08:03 50 % 08/05/18 08:03 Glucose 90 mg/dL (75-100) 08/05/18 08:03 POC Glucose 100 (70-105) 08/05/18 05:16 Lactic Acid 1.80 mmol/L (0.7-2.0) 07/11/18 21:01 Calcium 8.0 mg/dL (8.4-10.2) L 08/05/18 08:03 0.20 mg/dL (0.1-1.2) 08/03/18 06:30 AST 36 units/L (5-40) 08/03/18 06:30 ALT 50 units/L (7-56) 08/03/18 06:30 85 units/L (35-129) 08/03/18 06:30 731 units/L (91-180) H 07/12/18 19:29 < 0.010 ng/mL (0.00-0.029) 07/11/18 15:04 2.70 mg/dL (0.00-1.30) H 07/15/18 14:09 NT-Pro-B Natriuret Pep 249.7 pg/mL (0-450) 07/11/18 15:04 6.0 g/dL (6.3-8.2) L 08/03/18 06:30 2.4 g/dL (3.9-5) L 08/03/18 06:30 0.7 % 08/03/18 06:30 Triglycerides 209 mg/dL (2-149) H 07/28/18 05:20 Yellow (Yellow) 07/15/18 14:14 Clear (Clear) 07/15/18 14:14 6.0 (5.0-7.0) 07/15/18 14:14 Ur Specific [place] 1.015 (1.003-1.030) 07/15/18 14:14 30 mg/dl mg/dL (Negative) 07/15/18 14:14 Neg mg/dL (Negative) 07/15/18 14:14 Neg mg/dL (Negative) 07/15/18 14:14 Neg (Negative) 07/15/18 14:14 Neg (Negative) 07/15/18 14:14 Neg (Negative) 07/15/18 14:14 < 2.0 mg/dL (<2.0) 07/15/18 14:14 Ur Leukocyte Esterase Neg (Negative) 07/15/18 14:14 2.0 /HPF (0.0-6.0) 07/15/18 14:14 6.0 /HPF (0.0-6.0) 07/15/18 14:14 21 mmol/L 07/19/18 14:27 Lymph Enumerat CD4/CD8 0.04 (0.86-5.00) L 07/12/18 19:29 % CD3 Cells 88 % (57-85) H 07/12/18 19:29 194 cells/uL (840-3060) L 07/12/18 19:29 % CD4 Cells 3 % (30-61) L 07/12/18 19:29 7 cells/uL (490-1740) L 07/12/18 19:29 % CD8 Cells 75 % (12-42) H 07/12/18 19:29 177 cells/uL (180-1170) L 07/12/18 19:29 % CD19 Cells 4 % (6-29) L 07/12/18 19:29 9 cells/uL (110-660) L 07/12/18 19:29 RPR Nonreactive (Nonreactive) 07/12/18 23:38 CMV DNA PCR log copy writer/mL See scanned result 07/15/18 14:09 Hepatitis A IgM Ab Non-reactive (NonReactive) 07/12/18 23:38 Hep Bs Antigen Non-reactive (Negative) 07/12/18 23:38 Hep B Core IgM Ab Non-reactive (NonReactive) 07/12/18 23:38 Non-reactive (NonReactive) 07/12/18 23:38 HIV-1 RNA PCR copies/ml [id number] Copies/mL H 07/12/18 19:29 5.72 Log cps/mL H 07/12/18 19:29 Detected H 07/25/18 17:05 Flexitest 1 H 07/16/18 07:21 Blood Type O POSITIVE 07/24/18 07:50 Antibody Screen Positive 07/24/18 07:50 Prewarmed Antibody Srcn Positive 07/18/18 03:10 Antibody Identification Anti-Adrianna 07/24/18 07:50 Direct Antiglob Test Negative 07/24/18 07:50 NIKUNJ, Poly Interpret Negative 07/24/18 07:50 Crossmatch See Detail 07/24/18 07:50 Active Medications - Current Medications Current Medications: Generic Name Dose Route Start Last Admin Trade Name Freq PRN Reason Stop Dose Admin Acetaminophen 650 mg 07/12/18 18:07 08/04/18 17:23 Tylenol FEEDTUBE 650 mg Q6H PRN Administration Non Cardiac Pain or Temp>100.5 Albuterol 2.5 mg 07/11/18 17:16 07/26/18 12:07 Proventil IH 2.5 mg Q3HRT PRN Administration Shortness Of Breath Lipase/Protease/Amylase 1 each 08/02/18 15:[address] 10,500 Unit FEEDTUBE PRN PRN For Clogged Feeding Tube Azithromycin 1,200 mg 07/26/18 10:00 08/02/18 10:03 Zithromax PO 1,200 mg Th HE Administration Docusate Sodium 100 mg 07/15/18 12:00 08/05/18 09:16 Colace PO 100 mg BID HE Administration Doxazosin Mesylate 2 mg 07/18/18 12:00 08/05/18 09:16 Cardura PO 2 mg QDAY HE Administration Famotidine 20 mg 07/16/18 22:00 08/05/18 09:16 Pepcid PO 20 mg BID HE Administration Fentanyl 50 mcg 07/12/18 00:26 07/20/18 09:02 Sublimaze IV 50 mcg Q10MIN PRN Administration ANALGESIA Heparin Sodium (Porcine) 5,000 unit 08/03/18 22:00 08/05/18 09:16 Heparin SUB-Q 5,000 unit TID HE Administration Hydrophilic Ointment 1 applic 07/12/18 13:30 Vaseline Lip Therapy TP Q2HR PRN Dry Lips Fentanyl Citrate 2,000 mcg in 100 mls @ 3.065 mls/hr 07/12/18 01:00 08/05/18 01:07 Fentanyl Drip Premix IV 3 mcg/kg/hr TITR HE 9.195 mls/hr Administration Protocol 1 MCG/KG/HR Propofol 1,000 mg in 100 mls @ 1.839 mls/hr 07/12/18 01:00 08/03/18 12:13 Diprivan 10 Mg/Ml IV 0 mcg/kg/min TITR HE 0 mls/hr Titration Protocol 5 MCG/KG/MIN Midazolam HCl 100 mg/ Sodium 100 mls @ 2 mls/hr 07/18/18 13:30 08/03/18 12:08 Chloride IV 0 mg/hr TITR HE 0 mls/hr Titration Protocol 2 MG/HR Midazolam HCl 2 mg 07/16/18 13:06 07/26/18 17:42 Versed IV 2 mg Q2H PRN Administration AGITATION Midazolam HCl 2 mg 07/18/18 12:44 Versed IV Q10MIN PRN Sedation Multi-Ingred Cream/Lotion/Oil/Oint 1 applic 07/12/18 13:30 Artificial Tears Ophth Oint OU Q4HR PRN Dry Eye(s) Quetiapine Fumarate 300 mg 07/27/18 22:00 08/05/18 09:18 Seroquel PO 300 mg BID HE Administration Simple Syrup 15 ml 08/02/18 15:42 Simple Syrup FEEDTUBE PRN PRN Hypoglycemia Simple Syrup 30 ml 08/02/18 15:42 Simple Syrup FEEDTUBE PRN PRN Hypoglycemia Sodium Bicarbonate 325 mg 08/02/18 15:42 Sodium Bicarbonate FEEDTUBE PRN PRN For Clogged Feeding Tube Sodium Chloride 10 ml 07/11/18 22:00 08/05/18 09:20 Sodium Chloride Flush Syringe 10 Ml IV 10 ml BID HE Administration Sodium Chloride 10 ml 07/11/18 17:16 07/18/18 09:00 Sodium Chloride Flush Syringe 10 Ml IV 10 ml PRN PRN Administration LINE FLUSH Triamcinolone Acetonide 1 applic 08/03/18 11:00 08/05/18 09:19 Kenalog TP 08/12/18 22:01 1 applic BID HE Administration Trimethoprim/Sulfamethoxazole 160 mg 08/01/18 10:00 08/05/18 09:18 Bactrim 200-40 Mg/5 Ml PO 160 mg DAILY HE Administration Nutrition/Malnutrition Assess - Dietary Evaluation Nutrition/Malnutrition Findings: Nutrition Notes Start: 07/12/18 09:38 Freq: Status: Active Protocol: Document 08/02/18 15:08 RM (Rec: 08/02/18 15:20 RM [id number]) Nutrition Notes Initial or Follow up Reassessment Current Diagnosis Sepsis,Respiratory Failure Other Pertinent Diagnosis Bilat pneu, HIV/AIDS, Diarrhea Current Diet Nepro at 45 ml/hr Labs/Tests K 3.9 Pertinent Medications Reviewed Height 5 ft 11 in Weight 56.3 kg [place] Body Weight (kg) 78.18 BMI 17.3 Weight change and time frame Current wt obtained rom bedscale Subjective/Other Information During rounds MD requested reevaluation of TF formula d/t renal labs being WNL. Printing Table Worker recommends remaining on Nepro d/t elevated K when pt received Vital 1.2. Percent of energy/protein needs met: 100%/100% Burn Absent Trauma Absent #2 Nutrition Diagnosis Inadequate oral intake Diagnosis Progress(for reassessment Continues documentation) #1 Nutrition Diagnosis Malnutrition Diagnosis Progress(for reassessment Continues documentation) Is patient on ventilator? Yes Is Patient Ambulatory and/or Out of Bed No REE-([facility]-confined to bed) 1820.928 Kcal/Kg value to use for calculation 42 Approximate Energy Requirements Using 2365 kcal/Kg Calculation Used for Recommendations Kcal/kg Additional Notes Pro needs 1.2-2g/k-130g/ day Fluid needs 1ml/kcal Nutrition Intervention Nutrition Support: Increase Nepro to 55 ml/hr. Flush with 250 mls q 4 hrs. Kcal 2,376 Protein (gm) 107 Fluid (mL) 1,265 Goal #1 TF tolerance Goal #2 TF to continue to meet 90-100% energy and pro needs Goal #3 Wt maintenance and/or gain Anticipated Discharge Needs: Unable to determine at this time Follow-Up By: 08/07/18 Additional Comments Follow for TF tolerance
--- NOTE | 2018-08-05 12:28 | Progress Note ---
Assessment and Plan Cultures: Blood culture 07/11/2018 no growth today. Cryptococcal antigen : negative MRSA PCR: positive Blood culture 07/15/2018: in progress Urine culture 07/15/2018: no growth in 24 hours Sputum culture 07/15/18: MRSA, Jannette CMV PCR 07/15/2018 33,392 copies Assessment: 37 y/o male currently in halfway with history of HIV infection of unknown duration, noncompliant with antiretroviral medication, severe malnutrition; admitted on 07/11/2018, brought by law enforcement, due to 2-week history of shortness of breath, generalized weakness and productive cough: 1) Sepsis with new septic shock: off pressors. no fever. Etiology most likely pneumonia. CRP 2.7. Procalcitonin 3.09. 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 CMV +/- MRSA. Sputum culture 07/11/2018 no growth today. Chest CT showed bilateral patchy and somewhat confluent alveolar infiltrates and interstitial infiltrates. No effusions. Mild cardiomegaly. Sputum culture 07/15 grew MRSA and Jannette. Completed linezolid x 10 days until 07/23. S/p 21 days bactrim IV until 07/31/2018. 3) HIV with AIDS: Patient has not taken his HIV medication for at least 6 months prior due to his incarceration. On admission he reported 40lbs unintentional weight loss for 2 months and intermittent loose stools over the past 2 weeks. VL 523,000/ CD4=7. Pneumocytosis Jirovecii positive. RPR nonreactive. Hepatitis panel negative. HIV Genotype with wild type, no resistance associated mutations. 4) Diarrhea: ? possible opportunistic infection. resolved 5) Acute respiratory failure: not better, from pneumonia. improving s/p trach/PEG placement 08/01 6) Anemia: s/p transfusion 7) Facial rash: ? seborrheic dermatitis. improving. 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 On Valcyte. Monitor CMV PCR. Recommendations: - continue valganciclovir 900 mg PO BID D14 to cover CMV viremia - re-check CMV DNA PCR on 08/06, order placed - continue bactrim DS 1 tab q day for PJP prophylaxis - contact isolation for MRSA - continue azithromycin 1200 mg PO qweek for MAC prophylaxis - continue supportive care Dr. Gabe montanez tomorrow MD [facility] C: [phone] O: [phone] F: [phone] Subjective Date of service: 08/05/18 Principal diagnosis: Acute hypoxemic resp failure; Bilateral pneumonia (PJP); HIV/AIDS Interval history: Low grade fevers. Remains stable otherwise. Remains on the vent, via trach. Tolerating TF Objective - Exam Narrative Exam: Physical Exam: Constitutional: Alert, cooperative. No acute distress. Cachexia + Head, Ears, Nose: Normocephalic, atraumatic. External ears, nose normal Eyes: Conjunctivae/corneas clear. No icterus. No ptosis. Neck: trach + Oral: mucosa moist, no ulcers Cardiovascular: S1, S2 normal. Respiratory: few scattered rhonchi + GI: Soft, non-tender; bowel sounds normal. No peritoneal signs. G tube + Musculoskeletal: No pedal edema, no cyanosis. Skin: No rash or abscess Hem/Lymphatic: No palpable cervical or supraclavicular nodes. No lymphangitis Psych: no agitation Neurological: Awake, alert, obeys basic commands - Constitutional Vitals: Vital Signs Temp Pulse Resp BP Pulse Ox 99.6 F 118 H 24 99/56 95 08/05/18 02:37 08/05/18 12:10 08/05/18 12:10 08/05/18 12:10 08/05/18 12:10 Temperature -Last 24 Hours Temperature 99.6 F Temperature 100.6 F Temperature 99.1 F Temperature 100.9 F - Labs CBC & Chem 7: 08/05/18 08:03 08/05/18 08:03 Labs: Abnormal lab results 07/25/18 08/04/18 08/05/18 Range/Units 17:05 17:13 08:03 RBC 2.77 L (3.65-5.03) M/mm3 Hgb 8.8 L (11.8-15.2) gm/dl Hct 25.8 L (35.5-45.6) % RDW 20.4 H (13.2-15.2) % Lymph # 0.9 L (1.2-5.4) K/mm3 Seg Neutrophils % 76.6 H (40.0-70.0) % Sodium (137-145) mmol/L Chloride (98-107) mmol/L Creatinine (0.8-1.5) mg/dL POC Glucose 120 H (70-105) Calcium (8.4-10.2) mg/dL HIV-1 Genotyping Detected H 08/05/18 Range/Units 08:03 RBC (3.65-5.03) M/mm3 Hgb (11.8-15.2) gm/dl Hct (35.5-45.6) % RDW (13.2-15.2) % Lymph # (1.2-5.4) K/mm3 Seg Neutrophils % (40.0-70.0) % Sodium 132 L (137-145) mmol/L Chloride 93.0 L (98-107) mmol/L Creatinine 0.3 L (0.8-1.5) mg/dL POC Glucose (70-105) Calcium 8.0 L (8.4-10.2) mg/dL HIV-1 Genotyping
[2018-08-05] MEDS: TYLENOL FEEDTUBE PRN (21:49)
--- NOTE | 2018-08-06 03:10 | XRay Report ---
PROCEDURE: XR CHEST 1V AP TECHNIQUE: Chest radiograph single view. HISTORY: respiratory failure, ARDS COMPARISONS: August 01, 2018 . FINDINGS: Heart: Normal. Mediastinum/Vessels: Normal. Lungs/Pleural space: No significant change in slight atelectasis of the right lower lung. No effusio n or pneumothorax. Bony thorax: No acute osseous abnormality. Life support devices: Tracheostomy tube is properly positioned. Right PICC catheter ends in the SVC. IMPRESSION: No significant change in atelectasis right lower lung. The tracheostomy tube and right P ICC catheter are properly positioned.. This document is electronically signed by Ava Corley DO., Aug 06 2018 03:08:59 AM ET
[2018-08-06] MEDS: fentaNYL DRIP Premix 2,000 MCG/100 ML BAG IV SCH (05:22)
--- NOTE | 2018-08-06 06:43 | Progress Note ---
Assessment and Plan Acute Hypoxic respiratory failure on mechanical ventilation s/p Tracheostomy Severe sepsis with septic shock Severe ARDS Sepsis present on admission with grater than 2 SOFA criteria PJP (pneumocystis jiroveci pneumonia) Diarrhea Hyponatremia Hyperkalemia Moderate Protein Malnutrition AIDS ANEMIA Elevated d/DIMER- NO PE noted Nicotine dependance/Tobacco use disorder Start ATP trials today, get ABG prior to placing back on MVS Continue all supportive care Discontinue fentanyl infusion PT/OT-OOB to chair today Decrease freee water flushes Continue all care as documented below -Transfuse to keep HgB>7g/dL as indicated -VAP bundle addressed - Antibiotics, anti-infectives per ID service. -ART per ID service, Antibiotic prophylaxis for OI per ID - Continue bronchodilators with pulmonary hygiene per RT - Monitor renal indices closely - Avoid nephrotoxic agents - Strict intake and output monitoring - Tube feedings, on Vital AF at 65ml/hour - Aspiration precautions. HOB >40 -Stress ulcer prophylaxis -VTE prophylaxis - Accuchecks with glycemic control. Target glucose of 140-180 mg/dL - Maintenance of sleep -wake cycle - Mobility as tolerated by hemodynamics - Influenza and pneumonia vaccination per protocol ..care plan discussed at length with RN/RT at the bedside Subjective Date of service: 08/06/18 Principal diagnosis: Acute hypoxemic resp failure; Bilateral pneumonia (PJP); HIV/AIDS Interval history: Patient is seen today for: Acute hypoxemic respiratory failure, on mechanical ventilatory support; Bilateral pneumonia, high suspicion for Pneumocystis jiroveci pneumonia; Human immunodeficiency virus/acquired immunodeficiency syndrome,noncompliant with therapy; Hyponatremia; Severe protein calorie malnutrition. Seen and examined at bedside; 24-hour events reviewed; nursing and respiratory care staff consulted; no adverse overnight events reported to me; resting peacefully in bed. Awake and alert, No fevers, no vomiting, no diarrhea. Denies any chest pain, no shortness of breath, tolerating tube feedings; s/p trachesotomy, s/p PEG Tolerating PSV trials, start ATP trials today Objective Vital Signs - 12hr 08/05/18 08/05/18 08/05/18 19:00 20:00 20:34 Temperature 98.7 F Pulse Rate 121 H 110 H Pulse Rate [ 103 H From Monitor] Respiratory 20 24 17 Rate Blood Pressure 124/72 118/60 O2 Sat by Pulse 96 95 100 Oximetry O2 Sat by Pulse Oximetry [ Assessment] 08/05/18 08/05/18 08/05/18 20:52 21:00 22:00 Temperature Pulse Rate 108 H 102 H 106 H Pulse Rate [ From Monitor] Respiratory 21 18 Rate Blood Pressure 108/61 103/59 99/56 O2 Sat by Pulse 97 96 93 Oximetry O2 Sat by Pulse Oximetry [ Assessment] 08/05/18 08/05/18 08/06/18 23:00 23:18 00:00 Temperature 98.0 F Pulse Rate 102 H 101 H 102 H Pulse Rate [ 102 H From Monitor] Respiratory 12 17 12 Rate Blood Pressure 97/52 97/52 101/54 O2 Sat by Pulse 96 95 93 Oximetry O2 Sat by Pulse Oximetry [ Assessment] 08/06/18 08/06/18 08/06/18 00:35 01:00 02:00 Temperature Pulse Rate 96 H 96 H 99 H Pulse Rate [ From Monitor] Respiratory 14 18 Rate Blood Pressure 101/54 96/56 101/58 O2 Sat by Pulse 95 96 95 Oximetry O2 Sat by Pulse Oximetry [ Assessment] 08/06/18 08/06/18 08/06/18 03:00 03:24 04:00 Temperature 98.0 F Pulse Rate 95 H 88 Pulse Rate [ 94 H From Monitor] Respiratory 17 16 Rate Blood Pressure 108/61 106/63 O2 Sat by Pulse 95 96 Oximetry O2 Sat by Pulse 96 Oximetry [ Assessment] 08/06/18 08/06/18 08/06/18 04:15 05:00 06:00 Temperature Pulse Rate 89 96 H 99 H Pulse Rate [ From Monitor] Respiratory 19 17 Rate Blood Pressure 106/63 105/64 101/66 O2 Sat by Pulse 96 99 97 Oximetry O2 Sat by Pulse Oximetry [ Assessment] Constitutional: no acute distress, other (young AAM; normocephalic and atraumatic) Eyes: non-icteric ENT: oropharynx moist, other (s/p trachesotomy) Neck: supple, no lymphadenopathy, no JVD, other (no thyromegaly) Effort: mildly labored Ascultation: Bilateral: diminished breath sounds, rales Percussion: Bilateral: not dull Cardiovascular: regular rate and rhythm, other (S1,S2, no murmurs, gallops or rubs) Gastrointestinal: normoactive bowel sounds, soft, non-tender, non-distended, other (PEG tube in place) Integumentary: normal Extremities: no cyanosis, no edema, pulses normal, no ischemia or petechiae Neurologic: normal mental status, non-focal exam, pupils equal and round, CN II- XII normal, motor strength normal and Psychiatric: mood appropriate, affect normal CBC and BMP: 08/05/18 08:03 08/05/18 08:03 ABG, PT/INR, D-dimer: ABG POC ABG pH 7.432 (7.35-7.45) 08/02/18 14:13 POC ABG pCO2 44.5 (35-45) 08/02/18 14:13 POC ABG pO2 82 (80-105) 08/02/18 14:13 POC ABG HCO3 29.7 (22-26 mml/L) 08/02/18 14:13 POC ABG Total CO2 31 (23-27mmol/L) 08/02/18 14:13 POC ABG O2 Sat 96 08/02/18 14:13 PT/INR, D-dimer 1298.70 ng/mlDDU (0-234) H 07/11/18 15:04 Abnormal lab findings: Abnormal Labs 07/11/18 07/11/18 07/11/18 14:06 14:06 15:04 RBC 3.30 L Hgb 9.6 L Hct 28.7 L MCHC RDW Plt Count Lymph % (Auto) Lymph # Seg Neutrophils % Abs Lymphs (Manual) D-Dimer 1298.70 H POC ABG pH POC ABG pCO2 POC ABG pO2 Sodium 132 L Potassium Chloride Carbon Dioxide BUN Creatinine 0.6 L Glucose 103 H POC Glucose Calcium 7.3 L AST ALT Lactate Dehydrogenase C-Reactive Protein Total Protein Albumin 2.1 L Triglycerides Lymph Enumerat CD4/CD8 % CD3 Cells Absolute CD3 Count % CD4 Cells Absolute CD4 Count % CD8 Cells Absolute CD8 Count % CD19 Cells Absolute CD19 Count HIV-1 RNA PCR copies/ml HIV-1 RNA (PCR) log HIV-1 Genotyping Miscellaneous Test Crossmatch 07/11/18 07/11/18 07/12/18 17:36 22:15 00:25 RBC Hgb Hct MCHC RDW Plt Count Lymph % (Auto) Lymph # Seg Neutrophils % Abs Lymphs (Manual) D-Dimer POC ABG pH 7.289 L POC ABG pCO2 POC ABG pO2 66 L Sodium Potassium Chloride Carbon Dioxide BUN Creatinine Glucose POC Glucose Calcium AST ALT Lactate Dehydrogenase 591 H C-Reactive Protein Total Protein Albumin Triglycerides Lymph Enumerat CD4/CD8 % CD3 Cells Absolute CD3 Count % CD4 Cells Absolute CD4 Count % CD8 Cells Absolute CD8 Count % CD19 Cells Absolute CD19 Count HIV-1 RNA PCR copies/ml HIV-1 RNA (PCR) log HIV-1 Genotyping Miscellaneous Test see below H Crossmatch 07/12/18 07/12/18 07/12/18 00:41 05:37 19:29 RBC Hgb Hct MCHC RDW Plt Count Lymph % (Auto) Lymph # Seg Neutrophils % Abs Lymphs (Manual) D-Dimer POC ABG pH 7.302 L 7.275 L POC ABG pCO2 47.1 H POC ABG pO2 Sodium Potassium Chloride Carbon Dioxide BUN Creatinine Glucose POC Glucose Calcium AST ALT Lactate Dehydrogenase 731 H C-Reactive Protein Total Protein Albumin Triglycerides Lymph Enumerat CD4/CD8 % CD3 Cells Absolute CD3 Count % CD4 Cells Absolute CD4 Count % CD8 Cells Absolute CD8 Count % CD19 Cells Absolute CD19 Count HIV-1 RNA PCR copies/ml HIV-1 RNA (PCR) log HIV-1 Genotyping Miscellaneous Test Crossmatch 07/12/18 07/12/18 07/13/18 19:29 19:29 04:03 RBC Hgb Hct MCHC RDW Plt Count Lymph % (Auto) Lymph # Seg Neutrophils % Abs Lymphs (Manual) 220 L D-Dimer POC ABG pH 7.254 L POC ABG pCO2 49.2 H POC ABG pO2 Sodium Potassium Chloride Carbon Dioxide BUN Creatinine Glucose POC Glucose Calcium AST ALT Lactate Dehydrogenase C-Reactive Protein Total Protein Albumin Triglycerides Lymph Enumerat CD4/CD8 0.04 L % CD3 Cells 88 H Absolute CD3 Count 194 L % CD4 Cells 3 L Absolute CD4 Count 7 L % CD8 Cells 75 H Absolute CD8 Count 177 L % CD19 Cells 4 L Absolute CD19 Count 9 L HIV-1 RNA PCR copies/ml 091687 H HIV-1 RNA (PCR) log 5.72 H HIV-1 Genotyping Miscellaneous Test Crossmatch 07/13/18 07/13/18 07/13/18 05:46 12:23 18:31 RBC Hgb Hct MCHC RDW Plt Count Lymph % (Auto) Lymph # Seg Neutrophils % Abs Lymphs (Manual) D-Dimer POC ABG pH POC ABG pCO2 POC ABG pO2 Sodium Potassium Chloride Carbon Dioxide BUN Creatinine Glucose POC Glucose 68 L 106 H 112 H Calcium AST ALT Lactate Dehydrogenase C-Reactive Protein Total Protein Albumin Triglycerides Lymph Enumerat CD4/CD8 % CD3 Cells Absolute CD3 Count % CD4 Cells Absolute CD4 Count % CD8 Cells Absolute CD8 Count % CD19 Cells Absolute CD19 Count HIV-1 RNA PCR copies/ml HIV-1 RNA (PCR) log HIV-1 Genotyping Miscellaneous Test Crossmatch 07/14/18 07/14/18 07/14/18 04:19 05:36 05:36 RBC 2.99 L Hgb 8.8 L Hct 25.7 L MCHC RDW 15.5 H Plt Count Lymph % (Auto) Lymph # Seg Neutrophils % Abs Lymphs (Manual) D-Dimer POC ABG pH 7.337 L POC ABG pCO2 POC ABG pO2 Sodium 135 L Potassium Chloride Carbon Dioxide 21 L BUN Creatinine 0.7 L Glucose 123 H POC Glucose Calcium 8.2 L AST ALT Lactate Dehydrogenase C-Reactive Protein Total Protein Albumin Triglycerides Lymph Enumerat CD4/CD8 % CD3 Cells Absolute CD3 Count % CD4 Cells Absolute CD4 Count % CD8 Cells Absolute CD8 Count % CD19 Cells Absolute CD19 Count HIV-1 RNA PCR copies/ml HIV-1 RNA (PCR) log HIV-1 Genotyping Miscellaneous Test Crossmatch 07/14/18 07/14/18 07/14/18 12:14 14:33 17:18 RBC Hgb Hct MCHC RDW Plt Count Lymph % (Auto) Lymph # Seg Neutrophils % Abs Lymphs (Manual) D-Dimer POC ABG pH 7.325 L POC ABG pCO2 POC ABG pO2 75 L Sodium Potassium Chloride Carbon Dioxide BUN Creatinine Glucose POC Glucose 174 H 114 H Calcium AST ALT Lactate Dehydrogenase C-Reactive Protein Total Protein Albumin Triglycerides Lymph Enumerat CD4/CD8 % CD3 Cells Absolute CD3 Count % CD4 Cells Absolute CD4 Count % CD8 Cells Absolute CD8 Count % CD19 Cells Absolute CD19 Count HIV-1 RNA PCR copies/ml HIV-1 RNA (PCR) log HIV-1 Genotyping Miscellaneous Test Crossmatch 07/15/18 07/15/18 07/15/18 00:17 12:29 12:29 RBC 2.64 L Hgb 7.5 L Hct 22.9 L MCHC RDW 15.4 H Plt Count Lymph % (Auto) 7.0 L Lymph # 0.4 L Seg Neutrophils % 89.6 H Abs Lymphs (Manual) D-Dimer POC ABG pH POC ABG pCO2 POC ABG pO2 Sodium Potassium Chloride Carbon Dioxide BUN Creatinine 0.6 L Glucose 124 H POC Glucose 113 H Calcium 7.3 L AST ALT Lactate Dehydrogenase C-Reactive Protein Total Protein Albumin Triglycerides Lymph Enumerat CD4/CD8 % CD3 Cells Absolute CD3 Count % CD4 Cells Absolute CD4 Count % CD8 Cells Absolute CD8 Count % CD19 Cells Absolute CD19 Count HIV-1 RNA PCR copies/ml HIV-1 RNA (PCR) log HIV-1 Genotyping Miscellaneous Test Crossmatch 07/15/18 07/16/18 07/16/18 14:09 04:46 07:21 RBC Hgb Hct MCHC RDW Plt Count Lymph % (Auto) Lymph # Seg Neutrophils % Abs Lymphs (Manual) D-Dimer POC ABG pH 7.282 L POC ABG pCO2 52.6 H POC ABG pO2 63 L Sodium Potassium Chloride Carbon Dioxide BUN Creatinine Glucose POC Glucose Calcium AST ALT Lactate Dehydrogenase C-Reactive Protein 2.70 H Total Protein Albumin Triglycerides Lymph Enumerat CD4/CD8 % CD3 Cells Absolute CD3 Count % CD4 Cells Absolute CD4 Count % CD8 Cells Absolute CD8 Count % CD19 Cells Absolute CD19 Count HIV-1 RNA PCR copies/ml HIV-1 RNA (PCR) log HIV-1 Genotyping Miscellaneous Test Flexitest 1 H Crossmatch 07/16/18 07/16/18 07/16/18 07:21 07:21 16:16 RBC 2.48 L Hgb 7.2 L Hct 21.5 L MCHC RDW 15.7 H Plt Count Lymph % (Auto) Lymph # Seg Neutrophils % Abs Lymphs (Manual) D-Dimer POC ABG pH 7.251 L POC ABG pCO2 62.2 H POC ABG pO2 Sodium 136 L Potassium Chloride Carbon Dioxide BUN Creatinine 0.6 L Glucose 118 H POC Glucose Calcium 7.5 L AST ALT Lactate Dehydrogenase C-Reactive Protein Total Protein Albumin Triglycerides Lymph Enumerat CD4/CD8 % CD3 Cells Absolute CD3 Count % CD4 Cells Absolute CD4 Count % CD8 Cells Absolute CD8 Count % CD19 Cells Absolute CD19 Count HIV-1 RNA PCR copies/ml HIV-1 RNA (PCR) log HIV-1 Genotyping Miscellaneous Test Crossmatch 07/17/18 07/18/18 07/18/18 04:01 01:10 03:10 RBC 2.20 L Hgb 6.5 L Hct 19.2 L* MCHC RDW 16.0 H Plt Count Lymph % (Auto) 7.2 L Lymph # 0.5 L Seg Neutrophils % 89.9 H Abs Lymphs (Manual) D-Dimer POC ABG pH 7.245 L POC ABG pCO2 63.8 H POC ABG pO2 75 L Sodium Potassium Chloride Carbon Dioxide BUN Creatinine Glucose POC Glucose Calcium AST ALT Lactate Dehydrogenase C-Reactive Protein Total Protein Albumin Triglycerides Lymph Enumerat CD4/CD8 % CD3 Cells Absolute CD3 Count % CD4 Cells Absolute CD4 Count % CD8 Cells Absolute CD8 Count % CD19 Cells Absolute CD19 Count HIV-1 RNA PCR copies/ml HIV-1 RNA (PCR) log HIV-1 Genotyping Miscellaneous Test Crossmatch See Detail 07/18/18 07/18/18 07/18/18 04:54 05:02 12:59 RBC Hgb Hct MCHC RDW Plt Count Lymph % (Auto) Lymph # Seg Neutrophils % Abs Lymphs (Manual) D-Dimer POC ABG pH 7.615 H POC ABG pCO2 32.6 L 48.8 H POC ABG pO2 79 L 118 H Sodium Potassium Chloride Carbon Dioxide BUN Creatinine Glucose POC Glucose 164 H Calcium AST ALT Lactate Dehydrogenase C-Reactive Protein Total Protein Albumin Triglycerides Lymph Enumerat CD4/CD8 % CD3 Cells Absolute CD3 Count % CD4 Cells Absolute CD4 Count % CD8 Cells Absolute CD8 Count % CD19 Cells Absolute CD19 Count HIV-1 RNA PCR copies/ml HIV-1 RNA (PCR) log HIV-1 Genotyping Miscellaneous Test Crossmatch 07/18/18 07/18/18 07/19/18 18:25 20:39 03:53 RBC Hgb Hct MCHC RDW Plt Count Lymph % (Auto) Lymph # Seg Neutrophils % Abs Lymphs (Manual) D-Dimer POC ABG pH 7.339 L POC ABG pCO2 59.9 H 65.0 H POC ABG pO2 69 L Sodium Potassium Chloride Carbon Dioxide BUN Creatinine Glucose POC Glucose 155 H Calcium AST ALT Lactate Dehydrogenase C-Reactive Protein Total Protein Albumin Triglycerides Lymph Enumerat CD4/CD8 % CD3 Cells Absolute CD3 Count % CD4 Cells Absolute CD4 Count % CD8 Cells Absolute CD8 Count % CD19 Cells Absolute CD19 Count HIV-1 RNA PCR copies/ml HIV-1 RNA (PCR) log HIV-1 Genotyping Miscellaneous Test Crossmatch 05/09/19 05/09/19 05/09/19 08:10 08:10 10:52 RBC 2.51 L Hgb 7.4 L Hct 22.0 L MCHC RDW 15.5 H Plt Count Lymph % (Auto) Lymph # Seg Neutrophils % Abs Lymphs (Manual) D-Dimer POC ABG pH POC ABG pCO2 POC ABG pO2 Sodium 130 L Potassium Chloride 89.0 L Carbon Dioxide 33 H BUN Creatinine 0.4 L Glucose 150 H POC Glucose 173 H Calcium 7.5 L AST ALT Lactate Dehydrogenase C-Reactive Protein Total Protein Albumin Triglycerides Lymph Enumerat CD4/CD8 % CD3 Cells Absolute CD3 Count % CD4 Cells Absolute CD4 Count % CD8 Cells Absolute CD8 Count % CD19 Cells Absolute CD19 Count HIV-1 RNA PCR copies/ml HIV-1 RNA (PCR) log HIV-1 Genotyping Miscellaneous Test Crossmatch 07/19/18 07/19/18 07/20/18 17:06 23:47 04:37 RBC Hgb Hct MCHC RDW Plt Count Lymph % (Auto) Lymph # Seg Neutrophils % Abs Lymphs (Manual) D-Dimer POC ABG pH POC ABG pCO2 58.5 H POC ABG pO2 67 L Sodium Potassium Chloride Carbon Dioxide BUN Creatinine Glucose POC Glucose 117 H 114 H Calcium AST ALT Lactate Dehydrogenase C-Reactive Protein Total Protein Albumin Triglycerides Lymph Enumerat CD4/CD8 % CD3 Cells Absolute CD3 Count % CD4 Cells Absolute CD4 Count % CD8 Cells Absolute CD8 Count % CD19 Cells Absolute CD19 Count HIV-1 RNA PCR copies/ml HIV-1 RNA (PCR) log HIV-1 Genotyping Miscellaneous Test Crossmatch 07/20/18 07/20/18 07/21/18 06:20 06:20 04:18 RBC 2.69 L Hgb 7.8 L Hct 23.6 L MCHC RDW 15.5 H Plt Count Lymph % (Auto) Lymph # Seg Neutrophils % Abs Lymphs (Manual) D-Dimer POC ABG pH 7.456 H POC ABG pCO2 60.4 H POC ABG pO2 64 L Sodium 134 L Potassium Chloride 89.2 L Carbon Dioxide 38 H BUN Creatinine 0.7 L D Glucose 120 H POC Glucose Calcium 7.6 L AST ALT Lactate Dehydrogenase C-Reactive Protein Total Protein Albumin Triglycerides Lymph Enumerat CD4/CD8 % CD3 Cells Absolute CD3 Count % CD4 Cells Absolute CD4 Count % CD8 Cells Absolute CD8 Count % CD19 Cells Absolute CD19 Count HIV-1 RNA PCR copies/ml HIV-1 RNA (PCR) log HIV-1 Genotyping Miscellaneous Test Crossmatch 07/21/18 07/21/18 07/22/18 04:35 04:35 04:16 RBC 2.62 L 2.37 L Hgb 7.7 L 7.0 L Hct 23.1 L 21.1 L MCHC RDW 15.4 H Plt Count Lymph % (Auto) Lymph # Seg Neutrophils % Abs Lymphs (Manual) D-Dimer POC ABG pH POC ABG pCO2 POC ABG pO2 Sodium 129 L Potassium 5.3 H Chloride 85.3 L Carbon Dioxide 38 H BUN Creatinine 0.4 L Glucose 108 H POC Glucose Calcium 8.0 L AST ALT Lactate Dehydrogenase C-Reactive Protein Total Protein Albumin Triglycerides Lymph Enumerat CD4/CD8 % CD3 Cells Absolute CD3 Count % CD4 Cells Absolute CD4 Count % CD8 Cells Absolute CD8 Count % CD19 Cells Absolute CD19 Count HIV-1 RNA PCR copies/ml HIV-1 RNA (PCR) log HIV-1 Genotyping Miscellaneous Test Crossmatch 07/22/18 07/23/18 07/23/18 04:16 03:25 12:45 RBC Hgb Hct MCHC RDW Plt Count Lymph % (Auto) Lymph # Seg Neutrophils % Abs Lymphs (Manual) D-Dimer POC ABG pH POC ABG pCO2 69.4 H POC ABG pO2 Sodium 132 L 125 L D Potassium 5.4 H 5.3 H Chloride 87.4 L 80.3 L Carbon Dioxide 38 H 38 H BUN Creatinine 0.4 L 0.3 L Glucose 117 H 124 H POC Glucose Calcium 7.5 L 7.4 L AST ALT Lactate Dehydrogenase C-Reactive Protein Total Protein Albumin Triglycerides Lymph Enumerat CD4/CD8 % CD3 Cells Absolute CD3 Count % CD4 Cells Absolute CD4 Count % CD8 Cells Absolute CD8 Count % CD19 Cells Absolute CD19 Count HIV-1 RNA PCR copies/ml HIV-1 RNA (PCR) log HIV-1 Genotyping Miscellaneous Test Crossmatch 07/23/18 07/24/18 07/24/18 23:52 04:30 04:30 RBC 2.12 L Hgb 6.3 L Hct 18.9 L* MCHC RDW Plt Count Lymph % (Auto) Lymph # Seg Neutrophils % Abs Lymphs (Manual) D-Dimer POC ABG pH POC ABG pCO2 POC ABG pO2 Sodium 127 L Potassium 5.2 H Chloride 83.9 L Carbon Dioxide 39 H BUN Creatinine 0.3 L Glucose POC Glucose 118 H Calcium 7.5 L AST ALT Lactate Dehydrogenase C-Reactive Protein Total Protein Albumin Triglycerides Lymph Enumerat CD4/CD8 % CD3 Cells Absolute CD3 Count % CD4 Cells Absolute CD4 Count % CD8 Cells Absolute CD8 Count % CD19 Cells Absolute CD19 Count HIV-1 RNA PCR copies/ml HIV-1 RNA (PCR) log HIV-1 Genotyping Miscellaneous Test Crossmatch 07/24/18 07/24/18 07/24/18 05:11 05:30 07:50 RBC Hgb Hct MCHC RDW Plt Count Lymph % (Auto) Lymph # Seg Neutrophils % Abs Lymphs (Manual) D-Dimer POC ABG pH 7.462 H POC ABG pCO2 58.7 H POC ABG pO2 79 L Sodium Potassium Chloride Carbon Dioxide BUN Creatinine Glucose POC Glucose 145 H Calcium AST ALT Lactate Dehydrogenase C-Reactive Protein Total Protein Albumin Triglycerides Lymph Enumerat CD4/CD8 % CD3 Cells Absolute CD3 Count % CD4 Cells Absolute CD4 Count % CD8 Cells Absolute CD8 Count % CD19 Cells Absolute CD19 Count HIV-1 RNA PCR copies/ml HIV-1 RNA (PCR) log HIV-1 Genotyping Miscellaneous Test Crossmatch See Detail 07/25/18 07/25/18 07/25/18 09:30 09:30 17:05 RBC 2.99 L Hgb 9.1 L Hct 27.0 L D MCHC RDW Plt Count Lymph % (Auto) Lymph # Seg Neutrophils % Abs Lymphs (Manual) D-Dimer POC ABG pH POC ABG pCO2 POC ABG pO2 Sodium 131 L Potassium 5.1 H Chloride 84.4 L Carbon Dioxide 39 H BUN Creatinine 0.3 L Glucose 133 H POC Glucose Calcium 8.0 L AST ALT Lactate Dehydrogenase C-Reactive Protein Total Protein Albumin Triglycerides Lymph Enumerat CD4/CD8 % CD3 Cells Absolute CD3 Count % CD4 Cells Absolute CD4 Count % CD8 Cells Absolute CD8 Count % CD19 Cells Absolute CD19 Count HIV-1 RNA PCR copies/ml HIV-1 RNA (PCR) log HIV-1 Genotyping Detected H Miscellaneous Test Crossmatch 07/26/18 07/26/18 07/26/18 00:18 04:07 05:50 RBC 3.01 L Hgb 9.4 L Hct 27.2 L MCHC 35 H RDW Plt Count Lymph % (Auto) 10.4 L Lymph # 0.9 L Seg Neutrophils % 84.2 H Abs Lymphs (Manual) D-Dimer POC ABG pH 7.456 H POC ABG pCO2 61.4 H POC ABG pO2 68 L Sodium 135 L Potassium 5.5 H Chloride 88.4 L Carbon Dioxide 38 H BUN Creatinine 0.3 L Glucose POC Glucose Calcium AST ALT Lactate Dehydrogenase C-Reactive Protein Total Protein Albumin Triglycerides Lymph Enumerat CD4/CD8 % CD3 Cells Absolute CD3 Count % CD4 Cells Absolute CD4 Count % CD8 Cells Absolute CD8 Count % CD19 Cells Absolute CD19 Count HIV-1 RNA PCR copies/ml HIV-1 RNA (PCR) log HIV-1 Genotyping Miscellaneous Test Crossmatch 07/26/18 07/26/18 07/27/18 05:50 14:56 14:26 RBC Hgb Hct MCHC RDW Plt Count Lymph % (Auto) Lymph # Seg Neutrophils % Abs Lymphs (Manual) D-Dimer POC ABG pH 7.472 H POC ABG pCO2 66.0 H 57.4 H POC ABG pO2 56 L 59 L Sodium 131 L Potassium 5.1 H Chloride 84.5 L Carbon Dioxide 39 H BUN Creatinine 0.3 L Glucose POC Glucose Calcium AST 78 H ALT 71 H Lactate Dehydrogenase C-Reactive Protein Total Protein 6.0 L Albumin 2.5 L Triglycerides Lymph Enumerat CD4/CD8 % CD3 Cells Absolute CD3 Count % CD4 Cells Absolute CD4 Count % CD8 Cells Absolute CD8 Count % CD19 Cells Absolute CD19 Count HIV-1 RNA PCR copies/ml HIV-1 RNA (PCR) log HIV-1 Genotyping Miscellaneous Test Crossmatch 07/28/18 07/28/18 07/28/18 05:20 05:20 05:20 RBC 3.21 L Hgb 10.0 L Hct 29.9 L MCHC RDW 15.4 H Plt Count 451 H Lymph % (Auto) Lymph # Seg Neutrophils % 81.6 H Abs Lymphs (Manual) D-Dimer POC ABG pH POC ABG pCO2 POC ABG pO2 Sodium 136 L Potassium Chloride 89.9 L Carbon Dioxide 38 H BUN Creatinine 0.4 L Glucose POC Glucose Calcium 8.1 L AST 104 H ALT 113 H Lactate Dehydrogenase C-Reactive Protein Total Protein 6.2 L Albumin 2.5 L Triglycerides 209 H Lymph Enumerat CD4/CD8 % CD3 Cells Absolute CD3 Count % CD4 Cells Absolute CD4 Count % CD8 Cells Absolute CD8 Count % CD19 Cells Absolute CD19 Count HIV-1 RNA PCR copies/ml HIV-1 RNA (PCR) log HIV-1 Genotyping Miscellaneous Test Crossmatch 07/28/18 07/28/18 07/29/18 06:08 17:22 04:28 RBC Hgb Hct MCHC RDW Plt Count Lymph % (Auto) Lymph # Seg Neutrophils % Abs Lymphs (Manual) D-Dimer POC ABG pH 7.328 L POC ABG pCO2 65.7 H 55.1 H POC ABG pO2 70 L 113 H 76 L Sodium Potassium Chloride Carbon Dioxide BUN Creatinine Glucose POC Glucose Calcium AST ALT Lactate Dehydrogenase C-Reactive Protein Total Protein Albumin Triglycerides Lymph Enumerat CD4/CD8 % CD3 Cells Absolute CD3 Count % CD4 Cells Absolute CD4 Count % CD8 Cells Absolute CD8 Count % CD19 Cells Absolute CD19 Count HIV-1 RNA PCR copies/ml HIV-1 RNA (PCR) log HIV-1 Genotyping Miscellaneous Test Crossmatch 08/02/18 08/02/18 08/03/18 06:30 06:30 06:30 RBC 2.96 L 2.78 L Hgb 9.4 L 9.0 L Hct 27.6 L 26.3 L MCHC RDW 18.4 H 19.6 H Plt Count Lymph % (Auto) 11.1 L Lymph # 0.6 L 0.7 L Seg Neutrophils % 84.0 H 79.0 H Abs Lymphs (Manual) D-Dimer POC ABG pH POC ABG pCO2 POC ABG pO2 Sodium 133 L Potassium Chloride 92.7 L Carbon Dioxide BUN 22 H Creatinine 0.5 L Glucose POC Glucose Calcium 8.1 L AST ALT Lactate Dehydrogenase C-Reactive Protein Total Protein Albumin Triglycerides Lymph Enumerat CD4/CD8 % CD3 Cells Absolute CD3 Count % CD4 Cells Absolute CD4 Count % CD8 Cells Absolute CD8 Count % CD19 Cells Absolute CD19 Count HIV-1 RNA PCR copies/ml HIV-1 RNA (PCR) log HIV-1 Genotyping Miscellaneous Test Crossmatch 08/03/18 08/04/18 08/05/18 06:30 17:13 08:03 RBC 2.77 L Hgb 8.8 L Hct 25.8 L MCHC RDW 20.4 H Plt Count Lymph % (Auto) Lymph # 0.9 L Seg Neutrophils % 76.6 H Abs Lymphs (Manual) D-Dimer POC ABG pH POC ABG pCO2 POC ABG pO2 Sodium 131 L Potassium Chloride 92.0 L Carbon Dioxide BUN Creatinine 0.3 L Glucose POC Glucose 120 H Calcium 8.0 L AST ALT Lactate Dehydrogenase C-Reactive Protein Total Protein 6.0 L Albumin 2.4 L Triglycerides Lymph Enumerat CD4/CD8 % CD3 Cells Absolute CD3 Count % CD4 Cells Absolute CD4 Count % CD8 Cells Absolute CD8 Count % CD19 Cells Absolute CD19 Count HIV-1 RNA PCR copies/ml HIV-1 RNA (PCR) log HIV-1 Genotyping Miscellaneous Test Crossmatch 08/05/18 08:03 RBC Hgb Hct MCHC RDW Plt Count Lymph % (Auto) Lymph # Seg Neutrophils % Abs Lymphs (Manual) D-Dimer POC ABG pH POC ABG pCO2 POC ABG pO2 Sodium 132 L Potassium Chloride 93.0 L Carbon Dioxide BUN Creatinine 0.3 L Glucose POC Glucose Calcium 8.0 L AST ALT Lactate Dehydrogenase C-Reactive Protein Total Protein Albumin Triglycerides Lymph Enumerat CD4/CD8 % CD3 Cells Absolute CD3 Count % CD4 Cells Absolute CD4 Count % CD8 Cells Absolute CD8 Count % CD19 Cells Absolute CD19 Count HIV-1 RNA PCR copies/ml HIV-1 RNA (PCR) log HIV-1 Genotyping Miscellaneous Test Crossmatch Chest x-ray: image reviewed (Right lower lobe atlectasis, improved alveolar infiltrates) Allied health notes reviewed: RT
[2018-08-06] MEDS: HEPARIN SUB-Q SCH ×3 (08:09→20:30)
[2018-08-06 08:13] LABS: BUN/Creatinine Ratio 25; Blood Urea Nitrogen 10 mg/dL (9-20); Calcium 8.1 mg/dL (8.4-10.2); Hemolysis Index 4
--- NOTE | 2018-08-06 08:13 | Progress Note ---
Assessment and Plan Assessment and plan: Patient is a 37 yo man with a history of HIV and tobacco dependency who [facility] from [facility] with sob and cough. Pt admitted to IMCU and initiated on Pneumonia protocol. Chest CT showed bilateral patchy and somewhat confluent alveolar infiltrates and interstitial infiltrates. Patient required emergent intubation , unable to wean , vent dependent , s/p trach and PEG on ventilatory support and very resistant hypoxia. Clinically stable except for hypoxia and vent dependent. --Hypokalemia: Replace with Kcl and monitor levels --Acute hypoxic respiratory failure vent dependent > 96 hrs s/p Trach and PEG placement, Continue ventilatory support Wean as As tolerated and extubate --s/p PEG :Peg care,PEG feeds per protocol --Sepsis present on admission /bilateral pneumonia /MRSA tracheal aspirate s/p ABX, per ID,Isolation precautions --Pneumonia(pneumocystis jirovecii pneumonia positive stain): Continue current management ID following --Diarrhea: Improving --Hyponatremia:sodium levels improving --Severe Malnutrition : [employer] Worker following --History of HIV-AIDS; noncompliance with medications, ID following --Acute blood loss anemia; received 2 units PRBC hb improved to 9 -- Elevated d dimers: CTA chest Neg PE --Discharge planning. Case management/social issues --Evaluation for LTAC placement Monitor closely and adjust the management as needed Critical care time 32 minutes Disposition; pain as tolerated, and discharge when clinically stable History Interval history: Patient seen and examined in ICU this morning medical records reviewed Status post tracheostomy on vent, s/p PEG Alert awake not in acute distress Vital signs noted, Hospitalist Physical - Constitutional Vitals: Temp Pulse Resp BP Pulse Ox 98.0 F 99 H 17 101/66 97 08/06/18 04:00 08/06/18 06:00 08/06/18 06:00 08/06/18 06:00 08/06/18 06:00 General appearance: Present: no acute distress, cachectic, disheveled, other (tracheostomy and vent) - EENT Eyes: Present: PERRL, EOM intact - Neck Neck: Present: supple, normal ROM - Respiratory Respiratory effort: normal Respiratory: bilateral: diminished, rhonchi, negative: rales, wheezing - Cardiovascular Rhythm: regular Heart Sounds: Present: S1 & S2 - Extremities Extremities: no ischemia, No edema - Abdominal General gastrointestinal: soft, non-tender, non-distended, normal bowel sounds - Integumentary Integumentary: Present: clear, warm - Psychiatric Psychiatric: appropriate mood/affect, cooperative - Neurologic Neurologic: CNII-XII intact, moves all extremities Results - Labs CBC & Chem 7: 08/05/18 08:03 08/06/18 07:38 Labs: Laboratory Last Values WBC 5.1 K/mm3 (4.5-11.0) 08/05/18 08:03 RBC 2.77 M/mm3 (3.65-5.03) L 08/05/18 08:03 Hgb 8.8 gm/dl (11.8-15.2) L 08/05/18 08:03 Hct 25.8 % (35.5-45.6) L 08/05/18 08:03 MCV 93 fl (84-94) 08/05/18 08:03 MCH 32 pg (28-32) 08/05/18 08:03 MCHC 34 % (32-34) 08/05/18 08:03 RDW 20.4 % (13.2-15.2) H 08/05/18 08:03 Plt Count 401 K/mm3 (140-440) 08/05/18 08:03 Lymph % (Auto) 17.8 % (13.4-35.0) 08/05/18 08:03 [place] % (Auto) 3.3 % (0.0-7.3) 08/05/18 08:03 Eos % (Auto) 1.7 % (0.0-4.3) 08/05/18 08:03 Baso % (Auto) 0.6 % (0.0-1.8) 08/05/18 08:03 Lymph # 0.9 K/mm3 (1.2-5.4) L 08/05/18 08:03 [place] # 0.2 K/mm3 (0.0-0.8) 08/05/18 08:03 Eos # 0.1 K/mm3 (0.0-0.4) 08/05/18 08:03 Baso # 0.0 K/mm3 (0.0-0.1) 08/05/18 08:03 Add Manual Diff Complete 07/25/18 09:30 Total Counted 100 07/25/18 09:30 Seg Neutrophils % 76.6 % (40.0-70.0) H 08/05/18 08:03 Seg Neuts % (Manual) 63.0 % (40.0-70.0) 07/25/18 09:30 0 % 07/25/18 09:30 35.0 % (13.4-35.0) 07/25/18 09:30 Reactive Lymphs % (Man) 0 % 07/25/18 09:30 1.0 % (0.0-7.3) 07/25/18 09:30 0 % (0.0-4.3) 07/25/18 09:30 0 % (0.0-1.8) 07/25/18 09:30 0 % 07/25/18 09:30 1.0 % 07/25/18 09:30 0 % 07/25/18 09:30 0 % 07/25/18 09:30 Nucleated RBC % Not Reportable 07/25/18 09:30 Seg Neutrophils # 3.9 K/mm3 (1.8-7.7) 08/05/18 08:03 Seg Neutrophils # Man 4.9 K/mm3 (1.8-7.7) 07/25/18 09:30 Band Neutrophils # 0.0 K/mm3 07/25/18 09:30 Abs Lymphs (Manual) 220 cells/uL (850-3900) L 07/12/18 19:29 2.7 K/mm3 (1.2-5.4) 07/25/18 09:30 Abs React Lymphs (Man) 0.0 K/mm3 07/25/18 09:30 0.1 K/mm3 (0.0-0.8) 07/25/18 09:30 0.0 K/mm3 (0.0-0.4) 07/25/18 09:30 0.0 K/mm3 (0.0-0.1) 07/25/18 09:30 0.0 K/mm3 07/25/18 09:30 0.1 K/mm3 07/25/18 09:30 0.0 K/mm3 07/25/18 09:30 Blast Cells # 0.0 K/mm3 07/25/18 09:30 WBC Morphology Not Reportable 07/25/18 09:30 Hypersegmented Neuts Not Reportable 07/25/18 09:30 Hyposegmented Neuts Not Reportable 07/25/18 09:30 Hypogranular Neuts Not Reportable 07/25/18 09:30 Not Reportable 07/25/18 09:30 Not Reportable 07/25/18 09:30 Not Reportable 07/25/18 09:30 Not Reportable 07/25/18 09:30 Not Reportable 07/25/18 09:30 Not Reportable 07/25/18 09:30 Consistent w auto 07/25/18 09:30 Not Reportable 07/25/18 09:30 Plt Clumps, EDTA Not Reportable 07/25/18 09:30 Not Reportable 07/25/18 09:30 Not Reportable 07/25/18 09:30 Not Reportable 07/25/18 09:30 Plt Morphology Comment Not Reportable 07/25/18 09:30 RBC Morphology Not Reportable 07/25/18 09:30 Dimorphic RBCs Not Reportable 07/25/18 09:30 Few 07/25/18 09:30 Not Reportable 07/25/18 09:30 Not Reportable 07/25/18 09:30 1+ 07/25/18 09:30 Not Reportable 07/25/18 09:30 Few 07/25/18 09:30 Not Reportable 07/25/18 09:30 Not Reportable 07/25/18 09:30 Not Reportable 07/25/18 09:30 Rare 07/25/18 09:30 Not Reportable 07/25/18 09:30 Not Reportable 07/25/18 09:30 Not Reportable 07/25/18 09:30 Not Reportable 07/25/18 09:30 Not Reportable 07/25/18 09:30 Not Reportable 07/25/18 09:30 Not Reportable 07/25/18 09:30 Not Reportable 07/25/18 09:30 Not Reportable 07/25/18 09:30 Acanthocytes (Spur) Not Reportable 07/25/18 09:30 Rouleaux Not Reportable 07/25/18 09:30 Not Reportable 07/25/18 09:30 Not Reportable 07/25/18 09:30 Not Reportable 07/25/18 09:30 Not Reportable 07/25/18 09:30 Hem Pathologist Commnt No 07/25/18 09:30 1298.70 ng/mlDDU (0-234) H 07/11/18 15:04 POC ABG pH 7.432 (7.35-7.45) 08/02/18 14:13 POC ABG pCO2 44.5 (35-45) 08/02/18 14:13 POC ABG pO2 82 (80-105) 08/02/18 14:13 POC ABG HCO3 29.7 (22-26 mml/L) 08/02/18 14:13 POC ABG Total CO2 31 (23-27mmol/L) 08/02/18 14:13 POC ABG O2 Sat 96 08/02/18 14:13 POC ABG Base Excess 5 ((-2) - (+3)mmol/L) 08/02/18 14:13 40 % 08/02/18 14:13 Sodium 132 mmol/L (137-145) L 08/05/18 08:03 Potassium 4.2 mmol/L (3.6-5.0) 08/05/18 08:03 Chloride 93.0 mmol/L (98-107) L 08/05/18 08:03 Carbon Dioxide 29 mmol/L (22-30) 08/05/18 08:03 14 mmol/L 08/05/18 08:03 BUN 15 mg/dL (9-20) 08/05/18 08:03 0.3 mg/dL (0.8-1.5) L 08/05/18 08:03 Estimated GFR > 60 ml/min 08/05/18 08:03 50 % 08/05/18 08:03 Glucose 90 mg/dL (75-100) 08/05/18 08:03 POC Glucose 100 (70-105) 08/05/18 05:16 Lactic Acid 1.80 mmol/L (0.7-2.0) 07/11/18 21:01 Calcium 8.0 mg/dL (8.4-10.2) L 08/05/18 08:03 0.20 mg/dL (0.1-1.2) 08/03/18 06:30 AST 36 units/L (5-40) 08/03/18 06:30 ALT 50 units/L (7-56) 08/03/18 06:30 85 units/L (35-129) 08/03/18 06:30 731 units/L (91-180) H 07/12/18 19:29 < 0.010 ng/mL (0.00-0.029) 07/11/18 15:04 2.70 mg/dL (0.00-1.30) H 07/15/18 14:09 NT-Pro-B Natriuret Pep 249.7 pg/mL (0-450) 07/11/18 15:04 6.0 g/dL (6.3-8.2) L 08/03/18 06:30 2.4 g/dL (3.9-5) L 08/03/18 06:30 0.7 % 08/03/18 06:30 Triglycerides 209 mg/dL (2-149) H 07/28/18 05:20 Yellow (Yellow) 07/15/18 14:14 Clear (Clear) 07/15/18 14:14 6.0 (5.0-7.0) 07/15/18 14:14 Ur Specific [place] 1.015 (1.003-1.030) 07/15/18 14:14 30 mg/dl mg/dL (Negative) 07/15/18 14:14 Neg mg/dL (Negative) 07/15/18 14:14 Neg mg/dL (Negative) 07/15/18 14:14 Neg (Negative) 07/15/18 14:14 Neg (Negative) 07/15/18 14:14 Neg (Negative) 07/15/18 14:14 < 2.0 mg/dL (<2.0) 07/15/18 14:14 Ur Leukocyte Esterase Neg (Negative) 07/15/18 14:14 2.0 /HPF (0.0-6.0) 07/15/18 14:14 6.0 /HPF (0.0-6.0) 07/15/18 14:14 21 mmol/L 07/19/18 14:27 Lymph Enumerat CD4/CD8 0.04 (0.86-5.00) L 07/12/18 19:29 % CD3 Cells 88 % (57-85) H 07/12/18 19:29 194 cells/uL (840-3060) L 07/12/18 19:29 % CD4 Cells 3 % (30-61) L 07/12/18 19:29 7 cells/uL (490-1740) L 07/12/18 19:29 % CD8 Cells 75 % (12-42) H 07/12/18 19:29 177 cells/uL (180-1170) L 07/12/18 19:29 % CD19 Cells 4 % (6-29) L 07/12/18 19:29 9 cells/uL (110-660) L 07/12/18 19:29 RPR Nonreactive (Nonreactive) 07/12/18 23:38 CMV 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 See scanned result 07/15/18 14:09 Hepatitis A IgM Ab Non-reactive (NonReactive) 07/12/18 23:38 Hep Bs Antigen Non-reactive (Negative) 07/12/18 23:38 Hep B Core IgM Ab Non-reactive (NonReactive) 07/12/18 23:38 Non-reactive (NonReactive) 07/12/18 23:38 HIV-1 RNA PCR copies/ml [id number] Copies/mL H 07/12/18 19:29 5.72 Log cps/mL H 07/12/18 19:29 Detected H 07/25/18 17:05 Flexitest 1 H 07/16/18 07:21 Blood Type O POSITIVE 07/24/18 07:50 Antibody Screen Positive 07/24/18 07:50 Prewarmed Antibody Srcn Positive 07/18/18 03:10 Antibody Identification Anti-Adrianna 07/24/18 07:50 Direct Antiglob Test Negative 07/24/18 07:50 NIKUNJ, Poly Interpret Negative 07/24/18 07:50 Crossmatch See Detail 07/24/18 07:50 Active Medications - Current Medications Current Medications: Generic Name Dose Route Start Last Admin Trade Name Freq PRN Reason Stop Dose Admin Acetaminophen 650 mg 07/12/18 18:07 08/05/18 21:49 Tylenol FEEDTUBE 650 mg Q6H PRN Administration Non Cardiac Pain or Temp>100.5 Albuterol 2.5 mg 07/11/18 17:16 07/26/18 12:07 Proventil IH 2.5 mg Q3HRT PRN Administration Shortness Of Breath Lipase/Protease/Amylase 1 each 08/02/18 15:42 Pancreaze 10,500 Unit FEEDTUBE PRN PRN For Clogged Feeding Tube Azithromycin 1,200 mg 07/26/18 10:00 08/02/18 10:03 Zithromax PO 1,200 mg Th HE Administration Doxazosin Mesylate 2 mg 07/18/18 12:00 08/05/18 09:16 Cardura PO 2 mg QDAY HE Administration Famotidine 20 mg 07/16/18 22:00 08/05/18 21:07 Pepcid PO 20 mg BID HE Administration Fentanyl 50 mcg 07/12/18 00:26 07/20/18 09:02 Sublimaze IV 50 mcg Q10MIN PRN Administration ANALGESIA Heparin Sodium (Porcine) 5,000 unit 08/03/18 22:00 08/06/18 08:09 Heparin SUB-Q 5,000 unit TID HE Administration Hydrophilic Ointment 1 applic 07/12/18 13:30 Vaseline Lip Therapy TP Q2HR PRN Dry Lips Propofol 1,000 mg in 100 mls @ 1.839 mls/hr 07/12/18 01:00 08/03/18 12:13 Diprivan 10 Mg/Ml IV 0 mcg/kg/min TITR HE 0 mls/hr Titration Protocol 5 MCG/KG/MIN Midazolam HCl 100 mg/ Sodium 100 mls @ 2 mls/hr 07/18/18 13:30 08/03/18 12:08 Chloride IV 0 mg/hr TITR HE 0 mls/hr Titration Protocol 2 MG/HR Midazolam HCl 2 mg 07/16/18 13:06 07/26/18 17:42 Versed IV 2 mg Q2H PRN Administration AGITATION Midazolam HCl 2 mg 07/18/18 12:44 Versed IV Q10MIN PRN Sedation Multi-Ingred Cream/Lotion/Oil/Oint 1 applic 07/12/18 13:30 Artificial Tears Ophth Oint OU Q4HR PRN Dry Eye(s) Quetiapine Fumarate 300 mg 07/27/18 22:00 08/05/18 21:07 Seroquel PO 300 mg BID HE Administration Simple Syrup 15 ml 08/02/18 15:42 Simple Syrup FEEDTUBE PRN PRN Hypoglycemia Simple Syrup 30 ml 08/02/18 15:42 Simple Syrup FEEDTUBE PRN PRN Hypoglycemia Sodium Bicarbonate 325 mg 08/02/18 15:42 Sodium Bicarbonate FEEDTUBE PRN PRN For Clogged Feeding Tube Sodium Chloride 10 ml 07/11/18 22:00 08/05/18 21:30 Sodium Chloride Flush Syringe 10 Ml IV 10 ml BID HE Administration Sodium Chloride 10 ml 07/11/18 17:16 07/18/18 09:00 Sodium Chloride Flush Syringe 10 Ml IV 10 ml PRN PRN Administration LINE FLUSH Triamcinolone Acetonide 1 applic 08/03/18 11:00 08/05/18 21:07 Kenalog TP 08/12/18 22:01 1 applic BID HE Administration Trimethoprim/Sulfamethoxazole 160 mg 08/01/18 10:00 08/05/18 09:18 Bactrim 200-40 Mg/5 Ml PO 160 mg DAILY HE Administration Nutrition/Malnutrition Assess - Dietary Evaluation Nutrition/Malnutrition Findings: Nutrition Notes Start: 07/12/18 09:38 Freq: Status: Active Protocol: Document 08/02/18 15:08 RM (Rec: 08/02/18 15:20 RM [id number]) Nutrition Notes Initial or Follow up Reassessment Current Diagnosis Sepsis,Respiratory Failure Other Pertinent Diagnosis Bilat pneu, HIV/AIDS, Diarrhea Current Diet Nepro at 45 ml/hr Labs/Tests K 3.9 Pertinent Medications Reviewed Height 5 ft 11 in Weight 56.3 kg [place] Body Weight (kg) 78.18 BMI 17.3 Weight change and time frame Current wt obtained rom bedscale Subjective/Other Information During rounds MD requested reevaluation of TF formula d/t renal labs being WNL. Major General recommends remaining on Nepro d/t elevated K when pt received Vital 1.2. Percent of energy/protein needs met: 100%/100% Burn Absent Trauma Absent #2 Nutrition Diagnosis Inadequate oral intake Diagnosis Progress(for reassessment Continues documentation) #1 Nutrition Diagnosis Malnutrition Diagnosis Progress(for reassessment Continues documentation) Is patient on ventilator? Yes Is Patient Ambulatory and/or Out of Bed No REE-([facility]-confined to bed) 1820.928 Kcal/Kg value to use for calculation 42 Approximate Energy Requirements Using 2365 kcal/Kg Calculation Used for Recommendations Kcal/kg Additional Notes Pro needs 1.2-2g/k-130g/ day Fluid needs 1ml/kcal Nutrition Intervention Nutrition Support: Increase Nepro to 55 ml/hr. Flush with 250 mls q 4 hrs. Kcal 2,376 Protein (gm) 107 Fluid (mL) 1,265 Goal #1 TF tolerance Goal #2 TF to continue to meet 90-100% energy and pro needs Goal #3 Wt maintenance and/or gain Anticipated Discharge Needs: Unable to determine at this time Follow-Up By: 08/07/18 Additional Comments Follow for TF tolerance
[2018-08-06] MEDS ORDERED: POTASSIUM CHLORIDE FEEDTUBE ONE (08:15)
[2018-08-06] MEDS: VALGANCICLOVIR FEEDTUBE SCH ×2 (09:16→21:57)
[2018-08-06] MEDS: CARDURA PO SCH (09:16)
[2018-08-06] MEDS: BACTRIM 200-40 MG/5 ML PO SCH (09:16)
[2018-08-06] MEDS: SODIUM CHLORIDE FLUSH SYRINGE 10 ML IV SCH ×2 (09:18→22:04)
[2018-08-06] MEDS: KENALOG TP SCH ×2 (09:19→22:02)
[2018-08-06] MEDS: PEPCID PO SCH ×2 (09:30→21:59)
--- NOTE | 2018-08-06 13:58 | Progress Note ---
Assessment and Plan Cultures: Blood culture 07/11/2018 no growth today. Cryptococcal antigen : negative MRSA PCR: positive Blood culture 07/15/2018: in progress Urine culture 07/15/2018: no growth in 24 hours Sputum culture 07/15/18: MRSA, Jannette CMV PCR 07/15/2018 33,392 copies Assessment: 37 y/o male currently in fdc with history of HIV infection of unknown duration, noncompliant with antiretroviral medication, severe malnutrition; admitted on 07/11/2018, brought by law enforcement, due to 2-week history of shortness of breath, generalized weakness and productive cough: 1) Sepsis with new septic shock: off pressors. no fever. Etiology most likely pneumonia. CRP 2.7. Procalcitonin 3.09. 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 CMV +/- MRSA. Sputum culture 07/11/2018 no growth today. Chest CT showed bilateral patchy and somewhat confluent alveolar infiltrates and interstitial infiltrates. No effusions. Mild cardiomegaly. Sputum culture 07/15 grew MRSA and Jannette. Completed linezolid x 10 days until 07/23. S/p 21 days bactrim IV until 07/31/2018. 3) HIV, presumed AIDS: Patient has not taken his HIV medication for at least 6 months prior due to his incarceration. On admission he reported 40lbs unintentional weight loss for 2 months and intermittent loose stools over the past 2 weeks. VL 523,000/ CD4=7. Pneumocytosis Jirovecii positive. RPR nonreactive. Hepatitis panel negative. 4) Diarrhea: ? possible opportunistic infection. resolved 5) Acute respiratory failure: not better, from pneumonia. improving s/p trach/PEG placement 08/01 6) Anemia: s/p transfusion 7) Facial rash: ? 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 on 07/15/2018 Recommendations: - continue valganciclovir 900 mg PO BID D15 to cover CMV viremia - re-check CMV DNA PCR on 08/06 ordered - continue bactrim DS 1 tab q day for PJP prophylaxis - contact isolation for MRSA - HIV genotype pansensitive will start truvada and dolutegravir today Will follow Ana Kaur MD Infectious Diseases Rn Access [facility] ([facility] M [phone] O [phone] Subjective Date of service: 08/06/18 Principal diagnosis: Acute hypoxemic resp failure; Bilateral pneumonia (PJP); HIV/AIDS Interval history: Alert follows commands, on trach collar, no fever x 48h ROS unable to obtain Objective - Exam Narrative Exam: General appearance: alert, follows commands on trach collar Eyes: anicteric sclerae, moist conjunctivae; no lid-lag; PERRLA HENT: Atraumatic; +new papular/scaly rash on upper lip and nasalabial folds, +ulcer in upper lip. oropharynx clear Neck: +trach Lungs: ryland rhonchi CV: RRR Abdomen: Soft, +PEG Extremities: No peripheral edema or extremity lymphadenopathy Skin: Normal temperature, turgor and texture; no rash, ulcers or subcutaneous nodules Psych: no agitated. Neuro: alert follows commands, moving all extr - Constitutional Vitals: Vital Signs Temp Pulse Resp BP Pulse Ox 98.9 F 120 H 23 104/62 94 08/06/18 12:00 08/06/18 12:00 08/06/18 12:00 08/06/18 13:00 08/06/18 13:00 Temperature -Last 24 Hours Temperature 98.9 F Temperature 97.8 F Temperature 98.0 F Temperature 98.0 F Temperature 98.7 F Temperature 99.0 F - Labs CBC & Chem 7: 08/05/18 08:03 08/06/18 07:38 Labs: Abnormal lab results 08/06/18 Range/Units 07:38 Sodium 131 L (137-145) mmol/L Potassium 3.5 L (3.6-5.0) mmol/L Chloride 92.4 L (98-107) mmol/L Creatinine 0.4 L (0.8-1.5) mg/dL Calcium 8.1 L (8.4-10.2) mg/dL
[2018-08-07 08:19] LABS: Basophils % (Auto) 0.5 % (0.0-1.8); Hematocrit 27.9 % (35.5-45.6); Hemoglobin 9.4 gm/dl (11.8-15.2); Lymphocytes # (Auto) 1.2 K/mm3 (1.2-5.4); Lymphocytes % (Auto) 29.2 % (13.4-35.0); Mean Corpuscular HGB Conc 34 % (32-34); Mean Corpuscular Volume 93 fl (84-94); Monocytes # (Auto) 0.2 K/mm3 (0.0-0.8); Monocytes % (Auto) 4.8 % (0.0-7.3); Platelet Count 438 K/mm3 (140-440); Red Cell Distribution Width 19.2 % (13.2-15.2)
[2018-08-07 08:44] LABS: Alanine Aminotransferase 33 units/L (7-56); Albumin 2.6 g/dL (3.9-5); BUN/Creatinine Ratio 33; Blood Urea Nitrogen 13 mg/dL (9-20); Calcium 8.4 mg/dL (8.4-10.2); Hemolysis Index 5
[2018-08-07] MEDS ORDERED: POTASSIUM CHLORIDE FEEDTUBE ONE (09:00)
--- NOTE | 2018-08-07 09:03 | Progress Note ---
Assessment and Plan Acute Hypoxic respiratory failure s/p mechanical ventilation s/p Tracheostomy Severe sepsis with septic shock Severe ARDS Sepsis present on admission with grater than 2 SOFA criteria PJP (pneumocystis jiroveci pneumonia) Diarrhea Hyponatremia Hyperkalemia Moderate Protein Malnutrition AIDS ANEMIA Elevated d/DIMER- NO PE noted Nicotine dependance/Tobacco use disorder Continue ATP trials today Continue all supportive care PT/OT-increase activity Continue all care as documented below OK to transfer telemetry -Transfuse to keep HgB>7g/dL as indicated - Antibiotics, anti-infectives per ID service. -ART per ID service, Antibiotic prophylaxis for OI per ID - Continue bronchodilators with pulmonary hygiene per RT - Monitor renal indices closely - Avoid nephrotoxic agents - Strict intake and output monitoring - Tube feedings, on Vital AF at 65ml/hour - Aspiration precautions. HOB >40 -Stress ulcer prophylaxis -VTE prophylaxis - Accuchecks with glycemic control. Target glucose of 140-180 mg/dL - Maintenance of sleep -wake cycle - Mobility as tolerated by hemodynamics - Influenza and pneumonia vaccination per protocol ..care plan discussed at length with RN/RT at the bedside Subjective Date of service: 07/31/18 Principal diagnosis: Acute hypoxemic resp failure; Bilateral pneumonia (PJP); HIV/AIDS Interval history: Patient is seen today for: Acute hypoxemic respiratory failure, on mechanical ventilatory support; Bilateral pneumonia, high suspicion for Pneumocystis jiroveci pneumonia; Human immunodeficiency virus/acquired immunodeficiency syndrome,noncompliant with therapy; Hyponatremia; Severe protein calorie malnutrition. Seen and examined at bedside; 24-hour events reviewed; nursing and respiratory care staff consulted; no adverse overnight events reported to me; resting peacefully in bed. Awake and alert, No fevers, no vomiting, no diarrhea. Denies any chest pain, no shortness of breath, tolerating tube feedings; s/p trachesotomy, s/p PEG Tolerated ATP and continues to do well Objective Vital Signs - 12hr 08/06/18 08/06/18 08/06/18 22:00 23:00 23:17 Temperature 98.7 F Pulse Rate 101 H 110 H Pulse Rate [ From Monitor] Respiratory 38 H 19 Rate Blood Pressure 96/52 102/60 O2 Sat by Pulse 97 96 Oximetry 08/07/18 08/07/18 08/07/18 00:00 00:01 01:00 Temperature Pulse Rate 101 H 105 H 113 H Pulse Rate [ 100 H From Monitor] Respiratory 25 H 23 42 H Rate Blood Pressure 109/56 109/56 117/67 O2 Sat by Pulse 98 95 96 Oximetry 08/07/18 08/07/18 08/07/18 02:00 03:00 03:51 Temperature 99 F Pulse Rate 103 H 104 H Pulse Rate [ From Monitor] Respiratory 24 32 H Rate Blood Pressure 99/59 100/55 O2 Sat by Pulse 94 97 Oximetry 08/07/18 08/07/18 08/07/18 04:00 05:00 05:43 Temperature Pulse Rate 97 H 100 H Pulse Rate [ 100 H From Monitor] Respiratory 28 H 35 H 24 Rate Blood Pressure 104/63 102/57 O2 Sat by Pulse 99 99 95 Oximetry 08/07/18 08/07/18 08/07/18 06:00 07:00 08:00 Temperature 98.1 F Pulse Rate 104 H 101 H Pulse Rate [ From Monitor] Respiratory 27 H 28 H Rate Blood Pressure 102/61 101/58 O2 Sat by Pulse 98 97 Oximetry 08/07/18 08/07/18 08:43 08:48 Temperature Pulse Rate 90 Pulse Rate [ From Monitor] Respiratory Rate Blood Pressure 110/63 O2 Sat by Pulse 96 96 Oximetry Constitutional: no acute distress, other (young AAM; normocephalic and atraumatic) Eyes: non-icteric ENT: oropharynx moist, other (s/p trachesotomy) Neck: supple, no lymphadenopathy, no JVD, other (no thyromegaly) Effort: mildly labored Ascultation: Bilateral: diminished breath sounds, rales Percussion: Bilateral: not dull Cardiovascular: regular rate and rhythm, other (S1,S2, no murmurs, gallops or rubs) Gastrointestinal: normoactive bowel sounds, soft, non-tender, non-distended, other (PEG tube in place) Integumentary: normal Extremities: no cyanosis, no edema, pulses normal, no ischemia or petechiae Neurologic: normal mental status, non-focal exam, pupils equal and round, CN II- XII normal, motor strength normal and Psychiatric: mood appropriate, affect normal CBC and BMP: 08/07/18 07:57 08/08/18 04:38 ABG, PT/INR, D-dimer: ABG POC ABG pH 7.507 (7.35-7.45) H 08/06/18 22:01 POC ABG pCO2 33.6 (35-45) L 08/06/18 22:01 POC ABG pO2 113 (80-105) H 08/06/18 22:01 POC ABG HCO3 26.6 (22-26 mml/L) 08/06/18 22:01 POC ABG Total CO2 28 (23-27mmol/L) 08/06/18 22:01 POC ABG O2 Sat 99 08/06/18 22:01 PT/INR, D-dimer 1298.70 ng/mlDDU (0-234) H 07/11/18 15:04 Abnormal lab findings: Abnormal Labs 07/11/18 07/11/18 07/11/18 14:06 14:06 15:04 WBC RBC 3.30 L Hgb 9.6 L Hct 28.7 L MCHC RDW Plt Count Lymph % (Auto) Lymph # Seg Neutrophils % Abs Lymphs (Manual) D-Dimer 1298.70 H POC ABG pH POC ABG pCO2 POC ABG pO2 Sodium 132 L Potassium Chloride Carbon Dioxide BUN Creatinine 0.6 L Glucose 103 H POC Glucose Calcium 7.3 L AST ALT Lactate Dehydrogenase C-Reactive Protein Total Protein Albumin 2.1 L Triglycerides Lymph Enumerat CD4/CD8 % CD3 Cells Absolute CD3 Count % CD4 Cells Absolute CD4 Count % CD8 Cells Absolute CD8 Count % CD19 Cells Absolute CD19 Count HIV-1 RNA PCR copies/ml HIV-1 RNA (PCR) log HIV-1 Genotyping Miscellaneous Test Crossmatch 07/11/18 07/11/18 07/12/18 17:36 22:15 00:25 WBC RBC Hgb Hct MCHC RDW Plt Count Lymph % (Auto) Lymph # Seg Neutrophils % Abs Lymphs (Manual) D-Dimer POC ABG pH 7.289 L POC ABG pCO2 POC ABG pO2 66 L Sodium Potassium Chloride Carbon Dioxide BUN Creatinine Glucose POC Glucose Calcium AST ALT Lactate Dehydrogenase 591 H C-Reactive Protein Total Protein Albumin Triglycerides Lymph Enumerat CD4/CD8 % CD3 Cells Absolute CD3 Count % CD4 Cells Absolute CD4 Count % CD8 Cells Absolute CD8 Count % CD19 Cells Absolute CD19 Count HIV-1 RNA PCR copies/ml HIV-1 RNA (PCR) log HIV-1 Genotyping Miscellaneous Test see below H Crossmatch 07/12/18 07/12/18 07/12/18 00:41 05:37 19:29 WBC RBC Hgb Hct MCHC RDW Plt Count Lymph % (Auto) Lymph # Seg Neutrophils % Abs Lymphs (Manual) D-Dimer POC ABG pH 7.302 L 7.275 L POC ABG pCO2 47.1 H POC ABG pO2 Sodium Potassium Chloride Carbon Dioxide BUN Creatinine Glucose POC Glucose Calcium AST ALT Lactate Dehydrogenase 731 H C-Reactive Protein Total Protein Albumin Triglycerides Lymph Enumerat CD4/CD8 % CD3 Cells Absolute CD3 Count % CD4 Cells Absolute CD4 Count % CD8 Cells Absolute CD8 Count % CD19 Cells Absolute CD19 Count HIV-1 RNA PCR copies/ml HIV-1 RNA (PCR) log HIV-1 Genotyping Miscellaneous Test Crossmatch 07/12/18 07/12/18 07/13/18 19:29 19:29 04:03 WBC RBC Hgb Hct MCHC RDW Plt Count Lymph % (Auto) Lymph # Seg Neutrophils % Abs Lymphs (Manual) 220 L D-Dimer POC ABG pH 7.254 L POC ABG pCO2 49.2 H POC ABG pO2 Sodium Potassium Chloride Carbon Dioxide BUN Creatinine Glucose POC Glucose Calcium AST ALT Lactate Dehydrogenase C-Reactive Protein Total Protein Albumin Triglycerides Lymph Enumerat CD4/CD8 0.04 L % CD3 Cells 88 H Absolute CD3 Count 194 L % CD4 Cells 3 L Absolute CD4 Count 7 L % CD8 Cells 75 H Absolute CD8 Count 177 L % CD19 Cells 4 L Absolute CD19 Count 9 L HIV-1 RNA PCR copies/ml 480374 H HIV-1 RNA (PCR) log 5.72 H HIV-1 Genotyping Miscellaneous Test Crossmatch 07/13/18 07/13/18 07/13/18 05:46 12:23 18:31 WBC RBC Hgb Hct MCHC RDW Plt Count Lymph % (Auto) Lymph # Seg Neutrophils % Abs Lymphs (Manual) D-Dimer POC ABG pH POC ABG pCO2 POC ABG pO2 Sodium Potassium Chloride Carbon Dioxide BUN Creatinine Glucose POC Glucose 68 L 106 H 112 H Calcium AST ALT Lactate Dehydrogenase C-Reactive Protein Total Protein Albumin Triglycerides Lymph Enumerat CD4/CD8 % CD3 Cells Absolute CD3 Count % CD4 Cells Absolute CD4 Count % CD8 Cells Absolute CD8 Count % CD19 Cells Absolute CD19 Count HIV-1 RNA PCR copies/ml HIV-1 RNA (PCR) log HIV-1 Genotyping Miscellaneous Test Crossmatch 07/14/18 07/14/18 07/14/18 04:19 05:36 05:36 WBC RBC 2.99 L Hgb 8.8 L Hct 25.7 L MCHC RDW 15.5 H Plt Count Lymph % (Auto) Lymph # Seg Neutrophils % Abs Lymphs (Manual) D-Dimer POC ABG pH 7.337 L POC ABG pCO2 POC ABG pO2 Sodium 135 L Potassium Chloride Carbon Dioxide 21 L BUN Creatinine 0.7 L Glucose 123 H POC Glucose Calcium 8.2 L AST ALT Lactate Dehydrogenase C-Reactive Protein Total Protein Albumin Triglycerides Lymph Enumerat CD4/CD8 % CD3 Cells Absolute CD3 Count % CD4 Cells Absolute CD4 Count % CD8 Cells Absolute CD8 Count % CD19 Cells Absolute CD19 Count HIV-1 RNA PCR copies/ml HIV-1 RNA (PCR) log HIV-1 Genotyping Miscellaneous Test Crossmatch 07/14/18 07/14/18 07/14/18 12:14 14:33 17:18 WBC RBC Hgb Hct MCHC RDW Plt Count Lymph % (Auto) Lymph # Seg Neutrophils % Abs Lymphs (Manual) D-Dimer POC ABG pH 7.325 L POC ABG pCO2 POC ABG pO2 75 L Sodium Potassium Chloride Carbon Dioxide BUN Creatinine Glucose POC Glucose 174 H 114 H Calcium AST ALT Lactate Dehydrogenase C-Reactive Protein Total Protein Albumin Triglycerides Lymph Enumerat CD4/CD8 % CD3 Cells Absolute CD3 Count % CD4 Cells Absolute CD4 Count % CD8 Cells Absolute CD8 Count % CD19 Cells Absolute CD19 Count HIV-1 RNA PCR copies/ml HIV-1 RNA (PCR) log HIV-1 Genotyping Miscellaneous Test Crossmatch 07/15/18 07/15/18 07/15/18 00:17 12:29 12:29 WBC RBC 2.64 L Hgb 7.5 L Hct 22.9 L MCHC RDW 15.4 H Plt Count Lymph % (Auto) 7.0 L Lymph # 0.4 L Seg Neutrophils % 89.6 H Abs Lymphs (Manual) D-Dimer POC ABG pH POC ABG pCO2 POC ABG pO2 Sodium Potassium Chloride Carbon Dioxide BUN Creatinine 0.6 L Glucose 124 H POC Glucose 113 H Calcium 7.3 L AST ALT Lactate Dehydrogenase C-Reactive Protein Total Protein Albumin Triglycerides Lymph Enumerat CD4/CD8 % CD3 Cells Absolute CD3 Count % CD4 Cells Absolute CD4 Count % CD8 Cells Absolute CD8 Count % CD19 Cells Absolute CD19 Count HIV-1 RNA PCR copies/ml HIV-1 RNA (PCR) log HIV-1 Genotyping Miscellaneous Test Crossmatch 07/15/18 07/16/18 07/16/18 14:09 04:46 07:21 WBC RBC Hgb Hct MCHC RDW Plt Count Lymph % (Auto) Lymph # Seg Neutrophils % Abs Lymphs (Manual) D-Dimer POC ABG pH 7.282 L POC ABG pCO2 52.6 H POC ABG pO2 63 L Sodium Potassium Chloride Carbon Dioxide BUN Creatinine Glucose POC Glucose Calcium AST ALT Lactate Dehydrogenase C-Reactive Protein 2.70 H Total Protein Albumin Triglycerides Lymph Enumerat CD4/CD8 % CD3 Cells Absolute CD3 Count % CD4 Cells Absolute CD4 Count % CD8 Cells Absolute CD8 Count % CD19 Cells Absolute CD19 Count HIV-1 RNA PCR copies/ml HIV-1 RNA (PCR) log HIV-1 Genotyping Miscellaneous Test Flexitest 1 H Crossmatch 07/16/18 07/16/18 07/16/18 07:21 07:21 16:16 WBC RBC 2.48 L Hgb 7.2 L Hct 21.5 L MCHC RDW 15.7 H Plt Count Lymph % (Auto) Lymph # Seg Neutrophils % Abs Lymphs (Manual) D-Dimer POC ABG pH 7.251 L POC ABG pCO2 62.2 H POC ABG pO2 Sodium 136 L Potassium Chloride Carbon Dioxide BUN Creatinine 0.6 L Glucose 118 H POC Glucose Calcium 7.5 L AST ALT Lactate Dehydrogenase C-Reactive Protein Total Protein Albumin Triglycerides Lymph Enumerat CD4/CD8 % CD3 Cells Absolute CD3 Count % CD4 Cells Absolute CD4 Count % CD8 Cells Absolute CD8 Count % CD19 Cells Absolute CD19 Count HIV-1 RNA PCR copies/ml HIV-1 RNA (PCR) log HIV-1 Genotyping Miscellaneous Test Crossmatch 07/17/18 07/18/18 07/18/18 04:01 01:10 03:10 WBC RBC 2.20 L Hgb 6.5 L Hct 19.2 L* MCHC RDW 16.0 H Plt Count Lymph % (Auto) 7.2 L Lymph # 0.5 L Seg Neutrophils % 89.9 H Abs Lymphs (Manual) D-Dimer POC ABG pH 7.245 L POC ABG pCO2 63.8 H POC ABG pO2 75 L Sodium Potassium Chloride Carbon Dioxide BUN Creatinine Glucose POC Glucose Calcium AST ALT Lactate Dehydrogenase C-Reactive Protein Total Protein Albumin Triglycerides Lymph Enumerat CD4/CD8 % CD3 Cells Absolute CD3 Count % CD4 Cells Absolute CD4 Count % CD8 Cells Absolute CD8 Count % CD19 Cells Absolute CD19 Count HIV-1 RNA PCR copies/ml HIV-1 RNA (PCR) log HIV-1 Genotyping Miscellaneous Test Crossmatch See Detail 07/18/18 07/18/18 07/18/18 04:54 05:02 12:59 WBC RBC Hgb Hct MCHC RDW Plt Count Lymph % (Auto) Lymph # Seg Neutrophils % Abs Lymphs (Manual) D-Dimer POC ABG pH 7.615 H POC ABG pCO2 32.6 L 48.8 H POC ABG pO2 79 L 118 H Sodium Potassium Chloride Carbon Dioxide BUN Creatinine Glucose POC Glucose 164 H Calcium AST ALT Lactate Dehydrogenase C-Reactive Protein Total Protein Albumin Triglycerides Lymph Enumerat CD4/CD8 % CD3 Cells Absolute CD3 Count % CD4 Cells Absolute CD4 Count % CD8 Cells Absolute CD8 Count % CD19 Cells Absolute CD19 Count HIV-1 RNA PCR copies/ml HIV-1 RNA (PCR) log HIV-1 Genotyping Miscellaneous Test Crossmatch 07/18/18 07/18/18 07/19/18 18:25 20:39 03:53 WBC RBC Hgb Hct MCHC RDW Plt Count Lymph % (Auto) Lymph # Seg Neutrophils % Abs Lymphs (Manual) D-Dimer POC ABG pH 7.339 L POC ABG pCO2 59.9 H 65.0 H POC ABG pO2 69 L Sodium Potassium Chloride Carbon Dioxide BUN Creatinine Glucose POC Glucose 155 H Calcium AST ALT Lactate Dehydrogenase C-Reactive Protein Total Protein Albumin Triglycerides Lymph Enumerat CD4/CD8 % CD3 Cells Absolute CD3 Count % CD4 Cells Absolute CD4 Count % CD8 Cells Absolute CD8 Count % CD19 Cells Absolute CD19 Count HIV-1 RNA PCR copies/ml HIV-1 RNA (PCR) log HIV-1 Genotyping Miscellaneous Test Crossmatch 07/19/18 07/19/18 07/19/18 08:10 08:10 10:52 WBC RBC 2.51 L Hgb 7.4 L Hct 22.0 L MCHC RDW 15.5 H Plt Count Lymph % (Auto) Lymph # Seg Neutrophils % Abs Lymphs (Manual) D-Dimer POC ABG pH POC ABG pCO2 POC ABG pO2 Sodium 130 L Potassium Chloride 89.0 L Carbon Dioxide 33 H BUN Creatinine 0.4 L Glucose 150 H POC Glucose 173 H Calcium 7.5 L AST ALT Lactate Dehydrogenase C-Reactive Protein Total Protein Albumin Triglycerides Lymph Enumerat CD4/CD8 % CD3 Cells Absolute CD3 Count % CD4 Cells Absolute CD4 Count % CD8 Cells Absolute CD8 Count % CD19 Cells Absolute CD19 Count HIV-1 RNA PCR copies/ml HIV-1 RNA (PCR) log HIV-1 Genotyping Miscellaneous Test Crossmatch 07/19/18 07/19/18 07/20/18 17:06 23:47 04:37 WBC RBC Hgb Hct MCHC RDW Plt Count Lymph % (Auto) Lymph # Seg Neutrophils % Abs Lymphs (Manual) D-Dimer POC ABG pH POC ABG pCO2 58.5 H POC ABG pO2 67 L Sodium Potassium Chloride Carbon Dioxide BUN Creatinine Glucose POC Glucose 117 H 114 H Calcium AST ALT Lactate Dehydrogenase C-Reactive Protein Total Protein Albumin Triglycerides Lymph Enumerat CD4/CD8 % CD3 Cells Absolute CD3 Count % CD4 Cells Absolute CD4 Count % CD8 Cells Absolute CD8 Count % CD19 Cells Absolute CD19 Count HIV-1 RNA PCR copies/ml HIV-1 RNA (PCR) log HIV-1 Genotyping Miscellaneous Test Crossmatch 07/20/18 07/20/18 07/21/18 06:20 06:20 04:18 WBC RBC 2.69 L Hgb 7.8 L Hct 23.6 L MCHC RDW 15.5 H Plt Count Lymph % (Auto) Lymph # Seg Neutrophils % Abs Lymphs (Manual) D-Dimer POC ABG pH 7.456 H POC ABG pCO2 60.4 H POC ABG pO2 64 L Sodium 134 L Potassium Chloride 89.2 L Carbon Dioxide 38 H BUN Creatinine 0.7 L D Glucose 120 H POC Glucose Calcium 7.6 L AST ALT Lactate Dehydrogenase C-Reactive Protein Total Protein Albumin Triglycerides Lymph Enumerat CD4/CD8 % CD3 Cells Absolute CD3 Count % CD4 Cells Absolute CD4 Count % CD8 Cells Absolute CD8 Count % CD19 Cells Absolute CD19 Count HIV-1 RNA PCR copies/ml HIV-1 RNA (PCR) log HIV-1 Genotyping Miscellaneous Test Crossmatch 07/21/18 07/21/18 07/22/18 04:35 04:35 04:16 WBC RBC 2.62 L 2.37 L Hgb 7.7 L 7.0 L Hct 23.1 L 21.1 L MCHC RDW 15.4 H Plt Count Lymph % (Auto) Lymph # Seg Neutrophils % Abs Lymphs (Manual) D-Dimer POC ABG pH POC ABG pCO2 POC ABG pO2 Sodium 129 L Potassium 5.3 H Chloride 85.3 L Carbon Dioxide 38 H BUN Creatinine 0.4 L Glucose 108 H POC Glucose Calcium 8.0 L AST ALT Lactate Dehydrogenase C-Reactive Protein Total Protein Albumin Triglycerides Lymph Enumerat CD4/CD8 % CD3 Cells Absolute CD3 Count % CD4 Cells Absolute CD4 Count % CD8 Cells Absolute CD8 Count % CD19 Cells Absolute CD19 Count HIV-1 RNA PCR copies/ml HIV-1 RNA (PCR) log HIV-1 Genotyping Miscellaneous Test Crossmatch 07/22/18 07/23/18 07/23/18 04:16 03:25 12:45 WBC RBC Hgb Hct MCHC RDW Plt Count Lymph % (Auto) Lymph # Seg Neutrophils % Abs Lymphs (Manual) D-Dimer POC ABG pH POC ABG pCO2 69.4 H POC ABG pO2 Sodium 132 L 125 L D Potassium 5.4 H 5.3 H Chloride 87.4 L 80.3 L Carbon Dioxide 38 H 38 H BUN Creatinine 0.4 L 0.3 L Glucose 117 H 124 H POC Glucose Calcium 7.5 L 7.4 L AST ALT Lactate Dehydrogenase C-Reactive Protein Total Protein Albumin Triglycerides Lymph Enumerat CD4/CD8 % CD3 Cells Absolute CD3 Count % CD4 Cells Absolute CD4 Count % CD8 Cells Absolute CD8 Count % CD19 Cells Absolute CD19 Count HIV-1 RNA PCR copies/ml HIV-1 RNA (PCR) log HIV-1 Genotyping Miscellaneous Test Crossmatch 07/23/18 07/24/18 07/24/18 23:52 04:30 04:30 WBC RBC 2.12 L Hgb 6.3 L Hct 18.9 L* MCHC RDW Plt Count Lymph % (Auto) Lymph # Seg Neutrophils % Abs Lymphs (Manual) D-Dimer POC ABG pH POC ABG pCO2 POC ABG pO2 Sodium 127 L Potassium 5.2 H Chloride 83.9 L Carbon Dioxide 39 H BUN Creatinine 0.3 L Glucose POC Glucose 118 H Calcium 7.5 L AST ALT Lactate Dehydrogenase C-Reactive Protein Total Protein Albumin Triglycerides Lymph Enumerat CD4/CD8 % CD3 Cells Absolute CD3 Count % CD4 Cells Absolute CD4 Count % CD8 Cells Absolute CD8 Count % CD19 Cells Absolute CD19 Count HIV-1 RNA PCR copies/ml HIV-1 RNA (PCR) log HIV-1 Genotyping Miscellaneous Test Crossmatch 07/24/18 07/24/18 07/24/18 05:11 05:30 07:50 WBC RBC Hgb Hct MCHC RDW Plt Count Lymph % (Auto) Lymph # Seg Neutrophils % Abs Lymphs (Manual) D-Dimer POC ABG pH 7.462 H POC ABG pCO2 58.7 H POC ABG pO2 79 L Sodium Potassium Chloride Carbon Dioxide BUN Creatinine Glucose POC Glucose 145 H Calcium AST ALT Lactate Dehydrogenase C-Reactive Protein Total Protein Albumin Triglycerides Lymph Enumerat CD4/CD8 % CD3 Cells Absolute CD3 Count % CD4 Cells Absolute CD4 Count % CD8 Cells Absolute CD8 Count % CD19 Cells Absolute CD19 Count HIV-1 RNA PCR copies/ml HIV-1 RNA (PCR) log HIV-1 Genotyping Miscellaneous Test Crossmatch See Detail 07/25/18 07/25/18 07/25/18 09:30 09:30 17:05 WBC RBC 2.99 L Hgb 9.1 L Hct 27.0 L D MCHC RDW Plt Count Lymph % (Auto) Lymph # Seg Neutrophils % Abs Lymphs (Manual) D-Dimer POC ABG pH POC ABG pCO2 POC ABG pO2 Sodium 131 L Potassium 5.1 H Chloride 84.4 L Carbon Dioxide 39 H BUN Creatinine 0.3 L Glucose 133 H POC Glucose Calcium 8.0 L AST ALT Lactate Dehydrogenase C-Reactive Protein Total Protein Albumin Triglycerides Lymph Enumerat CD4/CD8 % CD3 Cells Absolute CD3 Count % CD4 Cells Absolute CD4 Count % CD8 Cells Absolute CD8 Count % CD19 Cells Absolute CD19 Count HIV-1 RNA PCR copies/ml HIV-1 RNA (PCR) log HIV-1 Genotyping Detected H Miscellaneous Test Crossmatch 07/26/18 07/26/18 07/26/18 00:18 04:07 05:50 WBC RBC 3.01 L Hgb 9.4 L Hct 27.2 L MCHC 35 H RDW Plt Count Lymph % (Auto) 10.4 L Lymph # 0.9 L Seg Neutrophils % 84.2 H Abs Lymphs (Manual) D-Dimer POC ABG pH 7.456 H POC ABG pCO2 61.4 H POC ABG pO2 68 L Sodium 135 L Potassium 5.5 H Chloride 88.4 L Carbon Dioxide 38 H BUN Creatinine 0.3 L Glucose POC Glucose Calcium AST ALT Lactate Dehydrogenase C-Reactive Protein Total Protein Albumin Triglycerides Lymph Enumerat CD4/CD8 % CD3 Cells Absolute CD3 Count % CD4 Cells Absolute CD4 Count % CD8 Cells Absolute CD8 Count % CD19 Cells Absolute CD19 Count HIV-1 RNA PCR copies/ml HIV-1 RNA (PCR) log HIV-1 Genotyping Miscellaneous Test Crossmatch 07/26/18 07/26/18 07/27/18 05:50 14:56 14:26 WBC RBC Hgb Hct MCHC RDW Plt Count Lymph % (Auto) Lymph # Seg Neutrophils % Abs Lymphs (Manual) D-Dimer POC ABG pH 7.472 H POC ABG pCO2 66.0 H 57.4 H POC ABG pO2 56 L 59 L Sodium 131 L Potassium 5.1 H Chloride 84.5 L Carbon Dioxide 39 H BUN Creatinine 0.3 L Glucose POC Glucose Calcium AST 78 H ALT 71 H Lactate Dehydrogenase C-Reactive Protein Total Protein 6.0 L Albumin 2.5 L Triglycerides Lymph Enumerat CD4/CD8 % CD3 Cells Absolute CD3 Count % CD4 Cells Absolute CD4 Count % CD8 Cells Absolute CD8 Count % CD19 Cells Absolute CD19 Count HIV-1 RNA PCR copies/ml HIV-1 RNA (PCR) log HIV-1 Genotyping Miscellaneous Test Crossmatch 07/28/18 07/28/18 07/28/18 05:20 05:20 05:20 WBC RBC 3.21 L Hgb 10.0 L Hct 29.9 L MCHC RDW 15.4 H Plt Count 451 H Lymph % (Auto) Lymph # Seg Neutrophils % 81.6 H Abs Lymphs (Manual) D-Dimer POC ABG pH POC ABG pCO2 POC ABG pO2 Sodium 136 L Potassium Chloride 89.9 L Carbon Dioxide 38 H BUN Creatinine 0.4 L Glucose POC Glucose Calcium 8.1 L AST 104 H ALT 113 H Lactate Dehydrogenase C-Reactive Protein Total Protein 6.2 L Albumin 2.5 L Triglycerides 209 H Lymph Enumerat CD4/CD8 % CD3 Cells Absolute CD3 Count % CD4 Cells Absolute CD4 Count % CD8 Cells Absolute CD8 Count % CD19 Cells Absolute CD19 Count HIV-1 RNA PCR copies/ml HIV-1 RNA (PCR) log HIV-1 Genotyping Miscellaneous Test Crossmatch 07/28/18 07/28/18 07/29/18 06:08 17:22 04:28 WBC RBC Hgb Hct MCHC RDW Plt Count Lymph % (Auto) Lymph # Seg Neutrophils % Abs Lymphs (Manual) D-Dimer POC ABG pH 7.328 L POC ABG pCO2 65.7 H 55.1 H POC ABG pO2 70 L 113 H 76 L Sodium Potassium Chloride Carbon Dioxide BUN Creatinine Glucose POC Glucose Calcium AST ALT Lactate Dehydrogenase C-Reactive Protein Total Protein Albumin Triglycerides Lymph Enumerat CD4/CD8 % CD3 Cells Absolute CD3 Count % CD4 Cells Absolute CD4 Count % CD8 Cells Absolute CD8 Count % CD19 Cells Absolute CD19 Count HIV-1 RNA PCR copies/ml HIV-1 RNA (PCR) log HIV-1 Genotyping Miscellaneous Test Crossmatch 08/02/18 08/02/18 08/03/18 06:30 06:30 06:30 WBC RBC 2.96 L 2.78 L Hgb 9.4 L 9.0 L Hct 27.6 L 26.3 L MCHC RDW 18.4 H 19.6 H Plt Count Lymph % (Auto) 11.1 L Lymph # 0.6 L 0.7 L Seg Neutrophils % 84.0 H 79.0 H Abs Lymphs (Manual) D-Dimer POC ABG pH POC ABG pCO2 POC ABG pO2 Sodium 133 L Potassium Chloride 92.7 L Carbon Dioxide BUN 22 H Creatinine 0.5 L Glucose POC Glucose Calcium 8.1 L AST ALT Lactate Dehydrogenase C-Reactive Protein Total Protein Albumin Triglycerides Lymph Enumerat CD4/CD8 % CD3 Cells Absolute CD3 Count % CD4 Cells Absolute CD4 Count % CD8 Cells Absolute CD8 Count % CD19 Cells Absolute CD19 Count HIV-1 RNA PCR copies/ml HIV-1 RNA (PCR) log HIV-1 Genotyping Miscellaneous Test Crossmatch 08/03/18 08/04/18 08/05/18 06:30 17:13 08:03 WBC RBC 2.77 L Hgb 8.8 L Hct 25.8 L MCHC RDW 20.4 H Plt Count Lymph % (Auto) Lymph # 0.9 L Seg Neutrophils % 76.6 H Abs Lymphs (Manual) D-Dimer POC ABG pH POC ABG pCO2 POC ABG pO2 Sodium 131 L Potassium Chloride 92.0 L Carbon Dioxide BUN Creatinine 0.3 L Glucose POC Glucose 120 H Calcium 8.0 L AST ALT Lactate Dehydrogenase C-Reactive Protein Total Protein 6.0 L Albumin 2.4 L Triglycerides Lymph Enumerat CD4/CD8 % CD3 Cells Absolute CD3 Count % CD4 Cells Absolute CD4 Count % CD8 Cells Absolute CD8 Count % CD19 Cells Absolute CD19 Count HIV-1 RNA PCR copies/ml HIV-1 RNA (PCR) log HIV-1 Genotyping Miscellaneous Test Crossmatch 08/05/18 08/06/18 08/06/18 08:03 07:38 22:01 WBC RBC Hgb Hct MCHC RDW Plt Count Lymph % (Auto) Lymph # Seg Neutrophils % Abs Lymphs (Manual) D-Dimer POC ABG pH 7.507 H POC ABG pCO2 33.6 L POC ABG pO2 113 H Sodium 132 L 131 L Potassium 3.5 L Chloride 93.0 L 92.4 L Carbon Dioxide BUN Creatinine 0.3 L 0.4 L Glucose POC Glucose Calcium 8.0 L 8.1 L AST ALT Lactate Dehydrogenase C-Reactive Protein Total Protein Albumin Triglycerides Lymph Enumerat CD4/CD8 % CD3 Cells Absolute CD3 Count % CD4 Cells Absolute CD4 Count % CD8 Cells Absolute CD8 Count % CD19 Cells Absolute CD19 Count HIV-1 RNA PCR copies/ml HIV-1 RNA (PCR) log HIV-1 Genotyping Miscellaneous Test Crossmatch 08/07/18 08/07/18 07:57 07:57 WBC 4.1 L RBC 3.00 L Hgb 9.4 L Hct 27.9 L MCHC RDW 19.2 H Plt Count Lymph % (Auto) Lymph # Seg Neutrophils % Abs Lymphs (Manual) D-Dimer POC ABG pH POC ABG pCO2 POC ABG pO2 Sodium 133 L Potassium 3.2 L Chloride 95.9 L Carbon Dioxide BUN Creatinine 0.4 L Glucose 104 H POC Glucose Calcium AST ALT Lactate Dehydrogenase C-Reactive Protein Total Protein Albumin 2.6 L Triglycerides Lymph Enumerat CD4/CD8 % CD3 Cells Absolute CD3 Count % CD4 Cells Absolute CD4 Count % CD8 Cells Absolute CD8 Count % CD19 Cells Absolute CD19 Count HIV-1 RNA PCR copies/ml HIV-1 RNA (PCR) log HIV-1 Genotyping Miscellaneous Test Crossmatch Allied health notes reviewed: RT
[2018-08-07] MEDS: HEPARIN SUB-Q SCH ×3 (09:20→22:11)
[2018-08-07] MEDS ORDERED: PANCREAZE DR 10,500 UNIT FEEDTUBE PRN (09:41)
[2018-08-07] MEDS: EMTRIVA PO SCH (10:22)
[2018-08-07] MEDS: VIREAD PO SCH (10:22)
[2018-08-07] MEDS: TIVICAY PO SCH (10:22)
[2018-08-07] MEDS: VALGANCICLOVIR FEEDTUBE SCH ×2 (10:23→23:46)
[2018-08-07] MEDS: PEPCID PO SCH ×2 (10:23→22:12)
[2018-08-07] MEDS: SODIUM CHLORIDE FLUSH SYRINGE 10 ML IV SCH ×2 (10:24→22:12)
[2018-08-07] MEDS: KENALOG TP SCH ×2 (10:25→22:16)
[2018-08-07] MEDS: CARDURA PO SCH (10:26)
[2018-08-07] MEDS: BACTRIM 200-40 MG/5 ML PO SCH (10:27)
[2018-08-07] MEDS ORDERED: K-DUR PO ONE (10:32)
--- NOTE | 2018-08-07 11:04 | Progress Note ---
Assessment and Plan Cultures: Blood culture 07/11/2018 no growth today. Cryptococcal antigen : negative MRSA PCR: positive Blood culture 07/15/2018: in progress Urine culture 07/15/2018: no growth in 24 hours Sputum culture 07/15/18: MRSA, Jannette CMV PCR 07/15/2018 33,392 copies Assessment: 37 y/o male currently in [place] [facility] with history of HIV infection of unknown duration, noncompliant with antiretroviral medication, severe malnutrition; admitted on 07/11/2018, brought by law enforcement, due to 2-week history of shortness of breath, generalized weakness and productive cough: 1) Sepsis with new septic shock: off pressors. no fever. Etiology most likely pneumonia. CRP 2.7. Procalcitonin 3.09. 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 CMV +/- MRSA. Sputum culture 07/11/2018 no growth today. Chest CT showed bilateral patchy and somewhat confluent alveolar infiltrates and interstitial infiltrates. No effusions. Mild cardiomegaly. Sputum culture 07/15 grew MRSA and Jannette. Completed linezolid x 10 days until 07/23. S/p 21 days bactrim IV until 07/31/2018. 3) HIV, presumed AIDS: Patient has not taken his HIV medication for at least 6 months prior due to his incarceration. On admission he reported 40lbs unintentional weight loss for 2 months and intermittent loose stools over the past 2 weeks. VL 523,000/ CD4=7. Pneumocytosis Jirovecii positive. RPR nonreactive. Hepatitis panel negative. 4) Diarrhea: ? possible opportunistic infection. resolved 5) Acute respiratory failure: not better, from pneumonia. improving s/p trach/PEG placement 08/01 6) Anemia: s/p transfusion 7) Facial rash: ? 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 on 07/15/2018 Recommendations: - continue valganciclovir 900 mg PO BID D16 to cover CMV viremia - CMV DNA PCR on 08/06 ordered - continue bactrim DS 1 tab q day for PJP prophylaxis - contact isolation for MRSA - started on emtricitabine, tenofovir and dolutegravir 08/07/2018 Will follow Ana Kaur MD Infectious Diseases Assistant Manager [facility] M [phone] O [phone] Subjective Date of service: 08/07/18 Principal diagnosis: Acute hypoxemic resp failure; Bilateral pneumonia (PJP); HIV/AIDS Interval history: Alert follows commands, on trach collar, no fever ROS unable to obtain Objective - Exam Narrative Exam: General appearance: alert, follows commands on trach collar Eyes: anicteric sclerae, moist conjunctivae; no lid-lag; PERRLA HENT: Atraumatic; +new papular/scaly rash on upper lip and nasalabial folds, +ulcer in upper lip. oropharynx clear Neck: +trach Lungs: ryland rhonchi CV: RRR Abdomen: Soft, +PEG Extremities: No peripheral edema or extremity lymphadenopathy Skin: Normal temperature, turgor and texture; no rash, ulcers or subcutaneous nodules Psych: no agitated. Neuro: alert follows commands, moving all extr - Constitutional Vitals: Vital Signs Temp Pulse Resp BP Pulse Ox 98.1 F 103 H 27 H 106/62 93 08/07/18 08:00 08/07/18 10:26 08/07/18 09:00 08/07/18 10:26 08/07/18 09:16 Temperature -Last 24 Hours Temperature 98.1 F Temperature 99 F Temperature 98.7 F Temperature 98.8 F Temperature 98.5 F Temperature 98.9 F - Labs CBC & Chem 7: 08/07/18 07:57 08/07/18 07:57 Labs: Abnormal lab results 08/06/18 08/07/18 08/07/18 Range/Units 22:01 07:57 07:57 WBC 4.1 L (4.5-11.0) K/mm3 RBC 3.00 L (3.65-5.03) M/mm3 Hgb 9.4 L (11.8-15.2) gm/dl Hct 27.9 L (35.5-45.6) % RDW 19.2 H (13.2-15.2) % POC ABG pH 7.507 H (7.35-7.45) POC ABG pCO2 33.6 L (35-45) POC ABG pO2 113 H (80-105) Sodium 133 L (137-145) mmol/L Potassium 3.2 L (3.6-5.0) mmol/L Chloride 95.9 L (98-107) mmol/L Creatinine 0.4 L (0.8-1.5) mg/dL Glucose 104 H (75-100) mg/dL Albumin 2.6 L (3.9-5) g/dL
[2018-08-07] MEDS: TYLENOL FEEDTUBE PRN (11:50)
--- NOTE | 2018-08-07 15:20 | Progress Note ---
Assessment and Plan /Hypokalemia: Replace with Kcl and monitor levels /Acute hypoxic respiratory failure vent dependent > 96 hrs s/p Trach and PEG placement, Continue ventilatory support Wean as As tolerated and extubate /-s/p PEG :Peg care,PEG feeds per protocol /-Sepsis present on admission /bilateral pneumonia /MRSA tracheal aspirate s/p ABX, per ID,Isolation precautions /-Pneumonia(pneumocystis jirovecii pneumonia positive stain): Continue current management ID following /-Diarrhea: Improving /-Hyponatremia:sodium levels improving /-Severe Malnutrition : Telecommunications Specialist following /-History of HIV-AIDS; noncompliance with medications, ID following /-Acute blood loss anemia; received 2 units PRBC hb improved to 9 /- Elevated d dimers: CTA chest Neg PE /-Discharge planning. Case management/social issues /-Evaluation for LTAC placement Monitor closely and adjust the management as needed Disposition; pain as tolerated, and discharge when clinically stable. transfer to medicine floor Brief History Patient is a 37 yo man with a history of HIV and tobacco dependency who presents from [facility] to [facility] ED with sob and cough. Pt admitted to IMCU and initiated on Pneumonia protocol. Chest CT showed bilateral patchy and somewhat confluent alveolar infiltrates and interstitial infiltrates. Patient required emergent intubation , unable to wean , vent dependent , s/p trach and PEG on ventilatory support and very resistant hypoxia. Clinically stable except for hypoxia and vent dependent. Hospitalist Physical General appearance: Present: no acute distress, cachectic, disheveled, other (tracheostomy and vent) - EENT Eyes: Present: PERRL, EOM intact - Neck Neck: Present: supple, normal ROM - Respiratory Respiratory effort: normal Respiratory: bilateral: diminished, rhonchi, negative: rales, wheezing - Cardiovascular Rhythm: regular Heart Sounds: Present: S1 & S2 - Extremities Extremities: no ischemia, No edema - Abdominal General gastrointestinal: soft, non-tender, non-distended, normal bowel sounds - Integumentary Integumentary: Present: clear, warm - Psychiatric Psychiatric: appropriate mood/affect, cooperative - Neurologic Neurologic: CNII-XII intact, moves all extremities Subjective Date of service: 08/07/18 Principal diagnosis: Acute hypoxemic resp failure; Bilateral pneumonia (PJP); HIV/AIDS Interval history: Patient seen and examined. Medical records and medication list reviewed. No acute event overnight noted by the RN. Patient denies any chest pain, breathing comfortably on trach. Patient is tolerating diet. Discussed plan of care at bedside with patient. Objective - Constitutional Vitals: Vital Signs - 12hr 08/07/18 08/07/18 08/07/18 03:51 04:00 05:00 Temperature 99 F Pulse Rate 97 H 100 H Pulse Rate [ From Monitor] Respiratory 28 H 35 H Rate Blood Pressure 104/63 102/57 O2 Sat by Pulse 99 99 Oximetry O2 Sat by Pulse Oximetry [ Assessment] 08/07/18 08/07/18 08/07/18 05:43 06:00 07:00 Temperature Pulse Rate 104 H 101 H Pulse Rate [ 100 H From Monitor] Respiratory 24 27 H 28 H Rate Blood Pressure 102/61 101/58 O2 Sat by Pulse 95 98 97 Oximetry O2 Sat by Pulse Oximetry [ Assessment] 08/07/18 08/07/18 08/07/18 08:00 08:01 08:43 Temperature 98.1 F Pulse Rate 101 H Pulse Rate [ From Monitor] Respiratory 28 H Rate Blood Pressure 96/53 O2 Sat by Pulse 94 96 Oximetry O2 Sat by Pulse Oximetry [ Assessment] 08/07/18 08/07/18 08/07/18 08:48 09:00 09:16 Temperature Pulse Rate 90 106 H Pulse Rate [ From Monitor] Respiratory 27 H Rate Blood Pressure 110/63 106/58 O2 Sat by Pulse 96 91 Oximetry O2 Sat by Pulse 93 Oximetry [ Assessment] 08/07/18 08/07/18 08/07/18 10:00 10:26 11:00 Temperature Pulse Rate 104 H 103 H 107 H Pulse Rate [ From Monitor] Respiratory 27 H 30 H Rate Blood Pressure 106/62 106/62 104/59 O2 Sat by Pulse 94 93 Oximetry O2 Sat by Pulse Oximetry [ Assessment] 08/07/18 08/07/18 08/07/18 11:11 11:21 11:30 Temperature Pulse Rate 105 H 113 H 108 H Pulse Rate [ From Monitor] Respiratory 28 H 39 H 24 Rate Blood Pressure 104/59 104/59 114/66 O2 Sat by Pulse 97 89 96 Oximetry O2 Sat by Pulse Oximetry [ Assessment] 08/07/18 08/07/18 08/07/18 11:41 12:00 12:49 Temperature 98.3 F Pulse Rate 107 H Pulse Rate [ From Monitor] Respiratory 20 Rate Blood Pressure 114/66 114/66 O2 Sat by Pulse 97 Oximetry O2 Sat by Pulse Oximetry [ Assessment] 08/07/18 08/07/18 08/07/18 12:50 13:00 13:11 Temperature Pulse Rate 101 H 101 H 100 H Pulse Rate [ From Monitor] Respiratory 21 37 H 29 H Rate Blood Pressure 104/63 99/63 99/63 O2 Sat by Pulse 87 98 98 Oximetry O2 Sat by Pulse Oximetry [ Assessment] 08/07/18 08/07/18 08/07/18 13:21 13:30 14:36 Temperature Pulse Rate 103 H 103 H Pulse Rate [ From Monitor] Respiratory 32 H 32 H Rate Blood Pressure 99/63 107/63 O2 Sat by Pulse 98 97 Oximetry O2 Sat by Pulse 97 Oximetry [ Assessment] - Labs CBC & Chem 7: 08/07/18 07:57 08/08/18 04:38 Labs: Abnormal lab results 08/06/18 08/07/18 08/07/18 Range/Units 22:01 07:57 07:57 WBC 4.1 L (4.5-11.0) K/mm3 RBC 3.00 L (3.65-5.03) M/mm3 Hgb 9.4 L (11.8-15.2) gm/dl Hct 27.9 L (35.5-45.6) % RDW 19.2 H (13.2-15.2) % POC ABG pH 7.507 H (7.35-7.45) POC ABG pCO2 33.6 L (35-45) POC ABG pO2 113 H (80-105) Sodium 133 L (137-145) mmol/L Potassium 3.2 L (3.6-5.0) mmol/L Chloride 95.9 L (98-107) mmol/L Creatinine 0.4 L (0.8-1.5) mg/dL Glucose 104 H (75-100) mg/dL Albumin 2.6 L (3.9-5) g/dL
[2018-08-08 06:34] LABS: BUN/Creatinine Ratio 38; Blood Urea Nitrogen 15 mg/dL (9-20); Calcium 8.8 mg/dL (8.4-10.2); Hemolysis Index 8
[2018-08-08] MEDS: BACTRIM 200-40 MG/5 ML PO SCH (09:52)
[2018-08-08] MEDS: TIVICAY PO SCH (09:52)
[2018-08-08] MEDS: EMTRIVA PO SCH (09:52)
[2018-08-08] MEDS: VIREAD PO SCH (09:52)
[2018-08-08] MEDS: CARDURA PO SCH (09:52)
[2018-08-08] MEDS: PEPCID PO SCH ×2 (09:52→22:17)
[2018-08-08] MEDS: SODIUM CHLORIDE FLUSH SYRINGE 10 ML IV SCH ×2 (09:53→22:17)
[2018-08-08] MEDS: HEPARIN SUB-Q SCH ×3 (09:53→22:18)
[2018-08-08] MEDS: KENALOG TP SCH ×2 (09:54→23:11)
[2018-08-08] MEDS: VALGANCICLOVIR FEEDTUBE SCH ×2 (10:00→22:16)
--- NOTE | 2018-08-08 15:29 | Progress Note ---
Assessment and Plan /Hypokalemia: Replaced with Kcl and monitor levels /Acute hypoxic respiratory failure vent dependent > 96 hrs s/p Trach and PEG placement, Wean off as As tolerated from tach /-s/p PEG :Peg care,PEG feeds per protocol /-Sepsis present on admission /bilateral pneumonia /MRSA tracheal aspirate s/p ABX, per ID,Isolation precautions /-Pneumonia(pneumocystis jirovecii pneumonia positive stain): Continue current management ID following /-Diarrhea: Improving /-Hyponatremia:sodium levels improving /-Severe Malnutrition : Dental Practitioner following /-History of HIV-AIDS; noncompliance with medications, ID following /-Acute blood loss anemia; received 2 units PRBC hb improved to 9 /- Elevated d dimers: CTA chest Neg PE /-Discharge planning. Case management/social issues /-Evaluation for LTAC placement Monitor closely and adjust the management as needed Disposition; pain as tolerated, and discharge when clinically stable. transfer to medicine floor Brief History Patient is a 37 yo man with a history of HIV and tobacco dependency who presents from [facility] to [facility] ED with sob and cough. Pt admitted to IMCU and initiated on Pneumonia protocol. Chest CT showed bilateral patchy and somewhat confluent alveolar infiltrates and interstitial infiltrates. Patient required emergent intubation , unable to wean , vent dependent , s/p trach and PEG on ventilatory support and very resistant hypoxia. Clinically stable except for hypoxia and trach dependent. Hospitalist Physical General appearance: Present: no acute distress, cachectic, disheveled, other (tracheostomy ) - EENT Eyes: Present: PERRL, EOM intact - Neck Neck: Present: supple, normal ROM - Respiratory Respiratory effort: normal Respiratory: bilateral: diminished, rhonchi, negative: rales, wheezing - Cardiovascular Rhythm: regular Heart Sounds: Present: S1 & S2 - Extremities Extremities: no ischemia, No edema - Abdominal General gastrointestinal: soft, non-tender, non-distended, normal bowel sounds - Integumentary Integumentary: Present: clear, warm - Psychiatric Psychiatric: appropriate mood/affect, cooperative - Neurologic Neurologic: CNII-XII intact, moves all extremities Subjective Date of service: 08/08/18 Principal diagnosis: Acute hypoxemic resp failure; Bilateral pneumonia (PJP); HIV/AIDS Interval history: Patient seen and examined. Medical records and medication list reviewed. No acute event overnight noted by the RN. Patient denies any chest pain, breathing comfortably on trach. Patient is t olerating diet. Discussed plan of care at bedside with patient. Objective - Constitutional Vitals: Vital Signs - 12hr 08/08/18 08/08/18 08:00 10:00 O2 Sat by Pulse 94 Oximetry O2 Sat by Pulse 94 Oximetry [ Assessment] - Labs CBC & Chem 7: 08/07/18 07:57 08/08/18 04:38 Labs: Abnormal lab results 08/08/18 Range/Units 04:38 Creatinine 0.4 L (0.8-1.5) mg/dL
--- NOTE | 2018-08-08 16:59 | Progress Note ---
Assessment and Plan Patient awake and not following the commands . At rest on T-tube, FiO2 35%. O2 Sat 96%. No acute respiratory distress. - Patient Problems (1) Acute respiratory failure with hypoxia and hypercapnia Current Visit: Yes Status: Acute Plan to address problem: T-tube FiO2 35%. Albuterol / Astrovent airosol treatments q 6 hours. Patient is on Azythromycin and Bactrin Continue SQ haperin Continue Famotidine (2) Status post tracheostomy Current Visit: Yes Status: Acute Plan to address problem: Frequent respiratory suctioning. Trach-care (3) Bilateral pneumonia Current Visit: Yes Status: Acute Qualifiers: Pneumonia type: due to unspecified organism Lung location: unspecified part of lung Qualified Code(s): J18.9 - Pneumonia, unspecified organism Plan to address problem: Improving Patient is on Zythromycin and Bactrim (4) Sepsis Current Visit: Yes Status: Acute Qualifiers: Sepsis type: sepsis due to unspecified organism Qualified Code(s): A41.9 - Sepsis, unspecified organism Plan to address problem: Improved Patient is on Zythromycin and Bactrim. (5) AIDS Current Visit: Yes Status: Acute Plan to address problem: Management as for infection disease. Subjective Date of service: 08/08/18 Principal diagnosis: Acute hypoxemic resp failure; Bilateral pneumonia (PJP); HIV/AIDS Interval history: Patient awake and not following the commands . At rest on T-tube, FiO2 35%. O2 Sat 96%. No acute respiratory distress. Objective Vital Signs - 12hr 08/08/18 08/08/18 08/08/18 08:00 08:22 10:00 Temperature 98.2 F Pulse Rate 101 H Respiratory 18 23 Rate Blood Pressure 98/59 O2 Sat by Pulse 98 94 Oximetry O2 Sat by Pulse 94 Oximetry [ Assessment] 08/08/18 08/08/18 08/08/18 14:18 14:21 16:45 Temperature 97.9 F Pulse Rate 109 H 112 H 96 H Respiratory 19 16 Rate Blood Pressure 81/43 O2 Sat by Pulse 96 Oximetry O2 Sat by Pulse Oximetry [ Assessment] Constitutional: no acute distress, alert Eyes: non-icteric ENT: oropharynx moist, other (s/p trachesotomy) Neck: supple, no lymphadenopathy, no JVD, other (no thyromegaly, tracheastomy tube present) Effort: mildly labored Ascultation: Bilateral: diminished breath sounds, rales Percussion: Bilateral: not dull Cardiovascular: regular rate and rhythm, other (S1,S2, no murmurs, gallops or rubs) Gastrointestinal: normoactive bowel sounds, soft, non-tender, non-distended, other (PEG tube in place) Integumentary: normal Extremities: no cyanosis, no edema, pulses normal, no ischemia or petechiae Neurologic: normal mental status, non-focal exam, pupils equal and round, CN II- XII normal, motor strength normal and Psychiatric: mood appropriate, affect normal CBC and BMP: 08/07/18 07:57 08/08/18 04:38 ABG, PT/INR, D-dimer: ABG POC ABG pH 7.507 (7.35-7.45) H 08/06/18 22:01 POC ABG pCO2 33.6 (35-45) L 08/06/18 22:01 POC ABG pO2 113 (80-105) H 08/06/18 22:01 POC ABG HCO3 26.6 (22-26 mml/L) 08/06/18 22:01 POC ABG Total CO2 28 (23-27mmol/L) 08/06/18 22:01 POC ABG O2 Sat 99 08/06/18 22:01 PT/INR, D-dimer 1298.70 ng/mlDDU (0-234) H 07/11/18 15:04 Abnormal lab findings: Abnormal Labs 07/11/18 07/11/18 07/11/18 14:06 14:06 15:04 WBC RBC 3.30 L Hgb 9.6 L Hct 28.7 L MCHC RDW Plt Count Lymph % (Auto) Lymph # Seg Neutrophils % Abs Lymphs (Manual) D-Dimer 1298.70 H POC ABG pH POC ABG pCO2 POC ABG pO2 Sodium 132 L Potassium Chloride Carbon Dioxide BUN Creatinine 0.6 L Glucose 103 H POC Glucose Calcium 7.3 L AST ALT Lactate Dehydrogenase C-Reactive Protein Total Protein Albumin 2.1 L Triglycerides Lymph Enumerat CD4/CD8 % CD3 Cells Absolute CD3 Count % CD4 Cells Absolute CD4 Count % CD8 Cells Absolute CD8 Count % CD19 Cells Absolute CD19 Count HIV-1 RNA PCR copies/ml HIV-1 RNA (PCR) log HIV-1 Genotyping Miscellaneous Test Crossmatch 07/11/18 07/11/18 07/12/18 17:36 22:15 00:25 WBC RBC Hgb Hct MCHC RDW Plt Count Lymph % (Auto) Lymph # Seg Neutrophils % Abs Lymphs (Manual) D-Dimer POC ABG pH 7.289 L POC ABG pCO2 POC ABG pO2 66 L Sodium Potassium Chloride Carbon Dioxide BUN Creatinine Glucose POC Glucose Calcium AST ALT Lactate Dehydrogenase 591 H C-Reactive Protein Total Protein Albumin Triglycerides Lymph Enumerat CD4/CD8 % CD3 Cells Absolute CD3 Count % CD4 Cells Absolute CD4 Count % CD8 Cells Absolute CD8 Count % CD19 Cells Absolute CD19 Count HIV-1 RNA PCR copies/ml HIV-1 RNA (PCR) log HIV-1 Genotyping Miscellaneous Test see below H Crossmatch 07/12/18 07/12/18 07/12/18 00:41 05:37 19:29 WBC RBC Hgb Hct MCHC RDW Plt Count Lymph % (Auto) Lymph # Seg Neutrophils % Abs Lymphs (Manual) D-Dimer POC ABG pH 7.302 L 7.275 L POC ABG pCO2 47.1 H POC ABG pO2 Sodium Potassium Chloride Carbon Dioxide BUN Creatinine Glucose POC Glucose Calcium AST ALT Lactate Dehydrogenase 731 H C-Reactive Protein Total Protein Albumin Triglycerides Lymph Enumerat CD4/CD8 % CD3 Cells Absolute CD3 Count % CD4 Cells Absolute CD4 Count % CD8 Cells Absolute CD8 Count % CD19 Cells Absolute CD19 Count HIV-1 RNA PCR copies/ml HIV-1 RNA (PCR) log HIV-1 Genotyping Miscellaneous Test Crossmatch 07/12/18 07/12/18 07/13/18 19:29 19:29 04:03 WBC RBC Hgb Hct MCHC RDW Plt Count Lymph % (Auto) Lymph # Seg Neutrophils % Abs Lymphs (Manual) 220 L D-Dimer POC ABG pH 7.254 L POC ABG pCO2 49.2 H POC ABG pO2 Sodium Potassium Chloride Carbon Dioxide BUN Creatinine Glucose POC Glucose Calcium AST ALT Lactate Dehydrogenase C-Reactive Protein Total Protein Albumin Triglycerides Lymph Enumerat CD4/CD8 0.04 L % CD3 Cells 88 H Absolute CD3 Count 194 L % CD4 Cells 3 L Absolute CD4 Count 7 L % CD8 Cells 75 H Absolute CD8 Count 177 L % CD19 Cells 4 L Absolute CD19 Count 9 L HIV-1 RNA PCR copies/ml 605066 H HIV-1 RNA (PCR) log 5.72 H HIV-1 Genotyping Miscellaneous Test Crossmatch 07/13/18 07/13/18 07/13/18 05:46 12:23 18:31 WBC RBC Hgb Hct MCHC RDW Plt Count Lymph % (Auto) Lymph # Seg Neutrophils % Abs Lymphs (Manual) D-Dimer POC ABG pH POC ABG pCO2 POC ABG pO2 Sodium Potassium Chloride Carbon Dioxide BUN Creatinine Glucose POC Glucose 68 L 106 H 112 H Calcium AST ALT Lactate Dehydrogenase C-Reactive Protein Total Protein Albumin Triglycerides Lymph Enumerat CD4/CD8 % CD3 Cells Absolute CD3 Count % CD4 Cells Absolute CD4 Count % CD8 Cells Absolute CD8 Count % CD19 Cells Absolute CD19 Count HIV-1 RNA PCR copies/ml HIV-1 RNA (PCR) log HIV-1 Genotyping Miscellaneous Test Crossmatch 07/14/18 07/14/18 07/14/18 04:19 05:36 05:36 WBC RBC 2.99 L Hgb 8.8 L Hct 25.7 L MCHC RDW 15.5 H Plt Count Lymph % (Auto) Lymph # Seg Neutrophils % Abs Lymphs (Manual) D-Dimer POC ABG pH 7.337 L POC ABG pCO2 POC ABG pO2 Sodium 135 L Potassium Chloride Carbon Dioxide 21 L BUN Creatinine 0.7 L Glucose 123 H POC Glucose Calcium 8.2 L AST ALT Lactate Dehydrogenase C-Reactive Protein Total Protein Albumin Triglycerides Lymph Enumerat CD4/CD8 % CD3 Cells Absolute CD3 Count % CD4 Cells Absolute CD4 Count % CD8 Cells Absolute CD8 Count % CD19 Cells Absolute CD19 Count HIV-1 RNA PCR copies/ml HIV-1 RNA (PCR) log HIV-1 Genotyping Miscellaneous Test Crossmatch 07/14/18 07/14/18 07/14/18 12:14 14:33 17:18 WBC RBC Hgb Hct MCHC RDW Plt Count Lymph % (Auto) Lymph # Seg Neutrophils % Abs Lymphs (Manual) D-Dimer POC ABG pH 7.325 L POC ABG pCO2 POC ABG pO2 75 L Sodium Potassium Chloride Carbon Dioxide BUN Creatinine Glucose POC Glucose 174 H 114 H Calcium AST ALT Lactate Dehydrogenase C-Reactive Protein Total Protein Albumin Triglycerides Lymph Enumerat CD4/CD8 % CD3 Cells Absolute CD3 Count % CD4 Cells Absolute CD4 Count % CD8 Cells Absolute CD8 Count % CD19 Cells Absolute CD19 Count HIV-1 RNA PCR copies/ml HIV-1 RNA (PCR) log HIV-1 Genotyping Miscellaneous Test Crossmatch 07/15/18 07/15/18 07/15/18 00:17 12:29 12:29 WBC RBC 2.64 L Hgb 7.5 L Hct 22.9 L MCHC RDW 15.4 H Plt Count Lymph % (Auto) 7.0 L Lymph # 0.4 L Seg Neutrophils % 89.6 H Abs Lymphs (Manual) D-Dimer POC ABG pH POC ABG pCO2 POC ABG pO2 Sodium Potassium Chloride Carbon Dioxide BUN Creatinine 0.6 L Glucose 124 H POC Glucose 113 H Calcium 7.3 L AST ALT Lactate Dehydrogenase C-Reactive Protein Total Protein Albumin Triglycerides Lymph Enumerat CD4/CD8 % CD3 Cells Absolute CD3 Count % CD4 Cells Absolute CD4 Count % CD8 Cells Absolute CD8 Count % CD19 Cells Absolute CD19 Count HIV-1 RNA PCR copies/ml HIV-1 RNA (PCR) log HIV-1 Genotyping Miscellaneous Test Crossmatch 07/15/18 07/16/18 07/16/18 14:09 04:46 07:21 WBC RBC Hgb Hct MCHC RDW Plt Count Lymph % (Auto) Lymph # Seg Neutrophils % Abs Lymphs (Manual) D-Dimer POC ABG pH 7.282 L POC ABG pCO2 52.6 H POC ABG pO2 63 L Sodium Potassium Chloride Carbon Dioxide BUN Creatinine Glucose POC Glucose Calcium AST ALT Lactate Dehydrogenase C-Reactive Protein 2.70 H Total Protein Albumin Triglycerides Lymph Enumerat CD4/CD8 % CD3 Cells Absolute CD3 Count % CD4 Cells Absolute CD4 Count % CD8 Cells Absolute CD8 Count % CD19 Cells Absolute CD19 Count HIV-1 RNA PCR copies/ml HIV-1 RNA (PCR) log HIV-1 Genotyping Miscellaneous Test Flexitest 1 H Crossmatch 07/16/18 07/16/18 07/16/18 07:21 07:21 16:16 WBC RBC 2.48 L Hgb 7.2 L Hct 21.5 L MCHC RDW 15.7 H Plt Count Lymph % (Auto) Lymph # Seg Neutrophils % Abs Lymphs (Manual) D-Dimer POC ABG pH 7.251 L POC ABG pCO2 62.2 H POC ABG pO2 Sodium 136 L Potassium Chloride Carbon Dioxide BUN Creatinine 0.6 L Glucose 118 H POC Glucose Calcium 7.5 L AST ALT Lactate Dehydrogenase C-Reactive Protein Total Protein Albumin Triglycerides Lymph Enumerat CD4/CD8 % CD3 Cells Absolute CD3 Count % CD4 Cells Absolute CD4 Count % CD8 Cells Absolute CD8 Count % CD19 Cells Absolute CD19 Count HIV-1 RNA PCR copies/ml HIV-1 RNA (PCR) log HIV-1 Genotyping Miscellaneous Test Crossmatch 07/17/18 07/18/18 07/18/18 04:01 01:10 03:10 WBC RBC 2.20 L Hgb 6.5 L Hct 19.2 L* MCHC RDW 16.0 H Plt Count Lymph % (Auto) 7.2 L Lymph # 0.5 L Seg Neutrophils % 89.9 H Abs Lymphs (Manual) D-Dimer POC ABG pH 7.245 L POC ABG pCO2 63.8 H POC ABG pO2 75 L Sodium Potassium Chloride Carbon Dioxide BUN Creatinine Glucose POC Glucose Calcium AST ALT Lactate Dehydrogenase C-Reactive Protein Total Protein Albumin Triglycerides Lymph Enumerat CD4/CD8 % CD3 Cells Absolute CD3 Count % CD4 Cells Absolute CD4 Count % CD8 Cells Absolute CD8 Count % CD19 Cells Absolute CD19 Count HIV-1 RNA PCR copies/ml HIV-1 RNA (PCR) log HIV-1 Genotyping Miscellaneous Test Crossmatch See Detail 07/18/18 07/18/18 07/18/18 04:54 05:02 12:59 WBC RBC Hgb Hct MCHC RDW Plt Count Lymph % (Auto) Lymph # Seg Neutrophils % Abs Lymphs (Manual) D-Dimer POC ABG pH 7.615 H POC ABG pCO2 32.6 L 48.8 H POC ABG pO2 79 L 118 H Sodium Potassium Chloride Carbon Dioxide BUN Creatinine Glucose POC Glucose 164 H Calcium AST ALT Lactate Dehydrogenase C-Reactive Protein Total Protein Albumin Triglycerides Lymph Enumerat CD4/CD8 % CD3 Cells Absolute CD3 Count % CD4 Cells Absolute CD4 Count % CD8 Cells Absolute CD8 Count % CD19 Cells Absolute CD19 Count HIV-1 RNA PCR copies/ml HIV-1 RNA (PCR) log HIV-1 Genotyping Miscellaneous Test Crossmatch 07/18/18 07/18/18 07/19/18 18:25 20:39 03:53 WBC RBC Hgb Hct MCHC RDW Plt Count Lymph % (Auto) Lymph # Seg Neutrophils % Abs Lymphs (Manual) D-Dimer POC ABG pH 7.339 L POC ABG pCO2 59.9 H 65.0 H POC ABG pO2 69 L Sodium Potassium Chloride Carbon Dioxide BUN Creatinine Glucose POC Glucose 155 H Calcium AST ALT Lactate Dehydrogenase C-Reactive Protein Total Protein Albumin Triglycerides Lymph Enumerat CD4/CD8 % CD3 Cells Absolute CD3 Count % CD4 Cells Absolute CD4 Count % CD8 Cells Absolute CD8 Count % CD19 Cells Absolute CD19 Count HIV-1 RNA PCR copies/ml HIV-1 RNA (PCR) log HIV-1 Genotyping Miscellaneous Test Crossmatch 07/19/18 07/19/18 07/19/18 08:10 08:10 10:52 WBC RBC 2.51 L Hgb 7.4 L Hct 22.0 L MCHC RDW 15.5 H Plt Count Lymph % (Auto) Lymph # Seg Neutrophils % Abs Lymphs (Manual) D-Dimer POC ABG pH POC ABG pCO2 POC ABG pO2 Sodium 130 L Potassium Chloride 89.0 L Carbon Dioxide 33 H BUN Creatinine 0.4 L Glucose 150 H POC Glucose 173 H Calcium 7.5 L AST ALT Lactate Dehydrogenase C-Reactive Protein Total Protein Albumin Triglycerides Lymph Enumerat CD4/CD8 % CD3 Cells Absolute CD3 Count % CD4 Cells Absolute CD4 Count % CD8 Cells Absolute CD8 Count % CD19 Cells Absolute CD19 Count HIV-1 RNA PCR copies/ml HIV-1 RNA (PCR) log HIV-1 Genotyping Miscellaneous Test Crossmatch 07/19/18 07/19/18 07/20/18 17:06 23:47 04:37 WBC RBC Hgb Hct MCHC RDW Plt Count Lymph % (Auto) Lymph # Seg Neutrophils % Abs Lymphs (Manual) D-Dimer POC ABG pH POC ABG pCO2 58.5 H POC ABG pO2 67 L Sodium Potassium Chloride Carbon Dioxide BUN Creatinine Glucose POC Glucose 117 H 114 H Calcium AST ALT Lactate Dehydrogenase C-Reactive Protein Total Protein Albumin Triglycerides Lymph Enumerat CD4/CD8 % CD3 Cells Absolute CD3 Count % CD4 Cells Absolute CD4 Count % CD8 Cells Absolute CD8 Count % CD19 Cells Absolute CD19 Count HIV-1 RNA PCR copies/ml HIV-1 RNA (PCR) log HIV-1 Genotyping Miscellaneous Test Crossmatch 07/20/18 07/20/18 07/21/18 06:20 06:20 04:18 WBC RBC 2.69 L Hgb 7.8 L Hct 23.6 L MCHC RDW 15.5 H Plt Count Lymph % (Auto) Lymph # Seg Neutrophils % Abs Lymphs (Manual) D-Dimer POC ABG pH 7.456 H POC ABG pCO2 60.4 H POC ABG pO2 64 L Sodium 134 L Potassium Chloride 89.2 L Carbon Dioxide 38 H BUN Creatinine 0.7 L D Glucose 120 H POC Glucose Calcium 7.6 L AST ALT Lactate Dehydrogenase C-Reactive Protein Total Protein Albumin Triglycerides Lymph Enumerat CD4/CD8 % CD3 Cells Absolute CD3 Count % CD4 Cells Absolute CD4 Count % CD8 Cells Absolute CD8 Count % CD19 Cells Absolute CD19 Count HIV-1 RNA PCR copies/ml HIV-1 RNA (PCR) log HIV-1 Genotyping Miscellaneous Test Crossmatch 07/21/18 07/21/18 07/22/18 04:35 04:35 04:16 WBC RBC 2.62 L 2.37 L Hgb 7.7 L 7.0 L Hct 23.1 L 21.1 L MCHC RDW 15.4 H Plt Count Lymph % (Auto) Lymph # Seg Neutrophils % Abs Lymphs (Manual) D-Dimer POC ABG pH POC ABG pCO2 POC ABG pO2 Sodium 129 L Potassium 5.3 H Chloride 85.3 L Carbon Dioxide 38 H BUN Creatinine 0.4 L Glucose 108 H POC Glucose Calcium 8.0 L AST ALT Lactate Dehydrogenase C-Reactive Protein Total Protein Albumin Triglycerides Lymph Enumerat CD4/CD8 % CD3 Cells Absolute CD3 Count % CD4 Cells Absolute CD4 Count % CD8 Cells Absolute CD8 Count % CD19 Cells Absolute CD19 Count HIV-1 RNA PCR copies/ml HIV-1 RNA (PCR) log HIV-1 Genotyping Miscellaneous Test Crossmatch 07/22/18 07/23/18 07/23/18 04:16 03:25 12:45 WBC RBC Hgb Hct MCHC RDW Plt Count Lymph % (Auto) Lymph # Seg Neutrophils % Abs Lymphs (Manual) D-Dimer POC ABG pH POC ABG pCO2 69.4 H POC ABG pO2 Sodium 132 L 125 L D Potassium 5.4 H 5.3 H Chloride 87.4 L 80.3 L Carbon Dioxide 38 H 38 H BUN Creatinine 0.4 L 0.3 L Glucose 117 H 124 H POC Glucose Calcium 7.5 L 7.4 L AST ALT Lactate Dehydrogenase C-Reactive Protein Total Protein Albumin Triglycerides Lymph Enumerat CD4/CD8 % CD3 Cells Absolute CD3 Count % CD4 Cells Absolute CD4 Count % CD8 Cells Absolute CD8 Count % CD19 Cells Absolute CD19 Count HIV-1 RNA PCR copies/ml HIV-1 RNA (PCR) log HIV-1 Genotyping Miscellaneous Test Crossmatch 05/13/19 05/14/19 05/14/19 23:52 04:30 04:30 WBC RBC 2.12 L Hgb 6.3 L Hct 18.9 L* MCHC RDW Plt Count Lymph % (Auto) Lymph # Seg Neutrophils % Abs Lymphs (Manual) D-Dimer POC ABG pH POC ABG pCO2 POC ABG pO2 Sodium 127 L Potassium 5.2 H Chloride 83.9 L Carbon Dioxide 39 H BUN Creatinine 0.3 L Glucose POC Glucose 118 H Calcium 7.5 L AST ALT Lactate Dehydrogenase C-Reactive Protein Total Protein Albumin Triglycerides Lymph Enumerat CD4/CD8 % CD3 Cells Absolute CD3 Count % CD4 Cells Absolute CD4 Count % CD8 Cells Absolute CD8 Count % CD19 Cells Absolute CD19 Count HIV-1 RNA PCR copies/ml HIV-1 RNA (PCR) log HIV-1 Genotyping Miscellaneous Test Crossmatch 07/24/18 07/24/18 07/24/18 05:11 05:30 07:50 WBC RBC Hgb Hct MCHC RDW Plt Count Lymph % (Auto) Lymph # Seg Neutrophils % Abs Lymphs (Manual) D-Dimer POC ABG pH 7.462 H POC ABG pCO2 58.7 H POC ABG pO2 79 L Sodium Potassium Chloride Carbon Dioxide BUN Creatinine Glucose POC Glucose 145 H Calcium AST ALT Lactate Dehydrogenase C-Reactive Protein Total Protein Albumin Triglycerides Lymph Enumerat CD4/CD8 % CD3 Cells Absolute CD3 Count % CD4 Cells Absolute CD4 Count % CD8 Cells Absolute CD8 Count % CD19 Cells Absolute CD19 Count HIV-1 RNA PCR copies/ml HIV-1 RNA (PCR) log HIV-1 Genotyping Miscellaneous Test Crossmatch See Detail 07/25/18 07/25/18 07/25/18 09:30 09:30 17:05 WBC RBC 2.99 L Hgb 9.1 L Hct 27.0 L D MCHC RDW Plt Count Lymph % (Auto) Lymph # Seg Neutrophils % Abs Lymphs (Manual) D-Dimer POC ABG pH POC ABG pCO2 POC ABG pO2 Sodium 131 L Potassium 5.1 H Chloride 84.4 L Carbon Dioxide 39 H BUN Creatinine 0.3 L Glucose 133 H POC Glucose Calcium 8.0 L AST ALT Lactate Dehydrogenase C-Reactive Protein Total Protein Albumin Triglycerides Lymph Enumerat CD4/CD8 % CD3 Cells Absolute CD3 Count % CD4 Cells Absolute CD4 Count % CD8 Cells Absolute CD8 Count % CD19 Cells Absolute CD19 Count HIV-1 RNA PCR copies/ml HIV-1 RNA (PCR) log HIV-1 Genotyping Detected H Miscellaneous Test Crossmatch 07/26/18 07/26/18 07/26/18 00:18 04:07 05:50 WBC RBC 3.01 L Hgb 9.4 L Hct 27.2 L MCHC 35 H RDW Plt Count Lymph % (Auto) 10.4 L Lymph # 0.9 L Seg Neutrophils % 84.2 H Abs Lymphs (Manual) D-Dimer POC ABG pH 7.456 H POC ABG pCO2 61.4 H POC ABG pO2 68 L Sodium 135 L Potassium 5.5 H Chloride 88.4 L Carbon Dioxide 38 H BUN Creatinine 0.3 L Glucose POC Glucose Calcium AST ALT Lactate Dehydrogenase C-Reactive Protein Total Protein Albumin Triglycerides Lymph Enumerat CD4/CD8 % CD3 Cells Absolute CD3 Count % CD4 Cells Absolute CD4 Count % CD8 Cells Absolute CD8 Count % CD19 Cells Absolute CD19 Count HIV-1 RNA PCR copies/ml HIV-1 RNA (PCR) log HIV-1 Genotyping Miscellaneous Test Crossmatch 07/26/18 07/26/18 07/27/18 05:50 14:56 14:26 WBC RBC Hgb Hct MCHC RDW Plt Count Lymph % (Auto) Lymph # Seg Neutrophils % Abs Lymphs (Manual) D-Dimer POC ABG pH 7.472 H POC ABG pCO2 66.0 H 57.4 H POC ABG pO2 56 L 59 L Sodium 131 L Potassium 5.1 H Chloride 84.5 L Carbon Dioxide 39 H BUN Creatinine 0.3 L Glucose POC Glucose Calcium AST 78 H ALT 71 H Lactate Dehydrogenase C-Reactive Protein Total Protein 6.0 L Albumin 2.5 L Triglycerides Lymph Enumerat CD4/CD8 % CD3 Cells Absolute CD3 Count % CD4 Cells Absolute CD4 Count % CD8 Cells Absolute CD8 Count % CD19 Cells Absolute CD19 Count HIV-1 RNA PCR copies/ml HIV-1 RNA (PCR) log HIV-1 Genotyping Miscellaneous Test Crossmatch 07/28/18 07/28/18 07/28/18 05:20 05:20 05:20 WBC RBC 3.21 L Hgb 10.0 L Hct 29.9 L MCHC RDW 15.4 H Plt Count 451 H Lymph % (Auto) Lymph # Seg Neutrophils % 81.6 H Abs Lymphs (Manual) D-Dimer POC ABG pH POC ABG pCO2 POC ABG pO2 Sodium 136 L Potassium Chloride 89.9 L Carbon Dioxide 38 H BUN Creatinine 0.4 L Glucose POC Glucose Calcium 8.1 L AST 104 H ALT 113 H Lactate Dehydrogenase C-Reactive Protein Total Protein 6.2 L Albumin 2.5 L Triglycerides 209 H Lymph Enumerat CD4/CD8 % CD3 Cells Absolute CD3 Count % CD4 Cells Absolute CD4 Count % CD8 Cells Absolute CD8 Count % CD19 Cells Absolute CD19 Count HIV-1 RNA PCR copies/ml HIV-1 RNA (PCR) log HIV-1 Genotyping Miscellaneous Test Crossmatch 07/28/18 07/28/18 07/29/18 06:08 17:22 04:28 WBC RBC Hgb Hct MCHC RDW Plt Count Lymph % (Auto) Lymph # Seg Neutrophils % Abs Lymphs (Manual) D-Dimer POC ABG pH 7.328 L POC ABG pCO2 65.7 H 55.1 H POC ABG pO2 70 L 113 H 76 L Sodium Potassium Chloride Carbon Dioxide BUN Creatinine Glucose POC Glucose Calcium AST ALT Lactate Dehydrogenase C-Reactive Protein Total Protein Albumin Triglycerides Lymph Enumerat CD4/CD8 % CD3 Cells Absolute CD3 Count % CD4 Cells Absolute CD4 Count % CD8 Cells Absolute CD8 Count % CD19 Cells Absolute CD19 Count HIV-1 RNA PCR copies/ml HIV-1 RNA (PCR) log HIV-1 Genotyping Miscellaneous Test Crossmatch 08/02/18 08/02/18 08/03/18 06:30 06:30 06:30 WBC RBC 2.96 L 2.78 L Hgb 9.4 L 9.0 L Hct 27.6 L 26.3 L MCHC RDW 18.4 H 19.6 H Plt Count Lymph % (Auto) 11.1 L Lymph # 0.6 L 0.7 L Seg Neutrophils % 84.0 H 79.0 H Abs Lymphs (Manual) D-Dimer POC ABG pH POC ABG pCO2 POC ABG pO2 Sodium 133 L Potassium Chloride 92.7 L Carbon Dioxide BUN 22 H Creatinine 0.5 L Glucose POC Glucose Calcium 8.1 L AST ALT Lactate Dehydrogenase C-Reactive Protein Total Protein Albumin Triglycerides Lymph Enumerat CD4/CD8 % CD3 Cells Absolute CD3 Count % CD4 Cells Absolute CD4 Count % CD8 Cells Absolute CD8 Count % CD19 Cells Absolute CD19 Count HIV-1 RNA PCR copies/ml HIV-1 RNA (PCR) log HIV-1 Genotyping Miscellaneous Test Crossmatch 08/03/18 08/04/18 08/05/18 06:30 17:13 08:03 WBC RBC 2.77 L Hgb 8.8 L Hct 25.8 L MCHC RDW 20.4 H Plt Count Lymph % (Auto) Lymph # 0.9 L Seg Neutrophils % 76.6 H Abs Lymphs (Manual) D-Dimer POC ABG pH POC ABG pCO2 POC ABG pO2 Sodium 131 L Potassium Chloride 92.0 L Carbon Dioxide BUN Creatinine 0.3 L Glucose POC Glucose 120 H Calcium 8.0 L AST ALT Lactate Dehydrogenase C-Reactive Protein Total Protein 6.0 L Albumin 2.4 L Triglycerides Lymph Enumerat CD4/CD8 % CD3 Cells Absolute CD3 Count % CD4 Cells Absolute CD4 Count % CD8 Cells Absolute CD8 Count % CD19 Cells Absolute CD19 Count HIV-1 RNA PCR copies/ml HIV-1 RNA (PCR) log HIV-1 Genotyping Miscellaneous Test Crossmatch 08/05/18 08/06/18 08/06/18 08:03 07:38 22:01 WBC RBC Hgb Hct MCHC RDW Plt Count Lymph % (Auto) Lymph # Seg Neutrophils % Abs Lymphs (Manual) D-Dimer POC ABG pH 7.507 H POC ABG pCO2 33.6 L POC ABG pO2 113 H Sodium 132 L 131 L Potassium 3.5 L Chloride 93.0 L 92.4 L Carbon Dioxide BUN Creatinine 0.3 L 0.4 L Glucose POC Glucose Calcium 8.0 L 8.1 L AST ALT Lactate Dehydrogenase C-Reactive Protein Total Protein Albumin Triglycerides Lymph Enumerat CD4/CD8 % CD3 Cells Absolute CD3 Count % CD4 Cells Absolute CD4 Count % CD8 Cells Absolute CD8 Count % CD19 Cells Absolute CD19 Count HIV-1 RNA PCR copies/ml HIV-1 RNA (PCR) log HIV-1 Genotyping Miscellaneous Test Crossmatch 08/07/18 08/07/18 08/08/18 07:57 07:57 04:38 WBC 4.1 L RBC 3.00 L Hgb 9.4 L Hct 27.9 L MCHC RDW 19.2 H Plt Count Lymph % (Auto) Lymph # Seg Neutrophils % Abs Lymphs (Manual) D-Dimer POC ABG pH POC ABG pCO2 POC ABG pO2 Sodium 133 L Potassium 3.2 L Chloride 95.9 L Carbon Dioxide BUN Creatinine 0.4 L 0.4 L Glucose 104 H POC Glucose Calcium AST ALT Lactate Dehydrogenase C-Reactive Protein Total Protein Albumin 2.6 L Triglycerides Lymph Enumerat CD4/CD8 % CD3 Cells Absolute CD3 Count % CD4 Cells Absolute CD4 Count % CD8 Cells Absolute CD8 Count % CD19 Cells Absolute CD19 Count HIV-1 RNA PCR copies/ml HIV-1 RNA (PCR) log HIV-1 Genotyping Miscellaneous Test Crossmatch Chest x-ray: report reviewed, image reviewed Additional Studies: Chest X-ray done on 08/06/18. IMPRESSION: No significant change in atelectasis right lower lung. The tracheostomy tube and right PICC catheter are properly positioned.. Allied health notes reviewed: RT
--- NOTE | 2018-08-08 21:08 | Progress Note ---
Assessment and Plan Cultures: Blood culture 07/11/2018 no growth today. Cryptococcal antigen : negative MRSA PCR: positive Blood culture 07/15/2018: in progress Urine culture 07/15/2018: no growth in 24 hours Sputum culture 07/15/18: MRSA, Jannette CMV PCR 07/15/2018 33,392 copies Assessment: 37 y/o male currently in senior living with history of HIV infection of unknown duration, noncompliant with antiretroviral medication, severe malnutrition; admitted on 07/11/2018, brought by law enforcement, due to 2-week history of shortness of breath, generalized weakness and productive cough: 1) Sepsis with new septic shock: off pressors. no fever. Etiology most likely pneumonia. CRP 2.7. Procalcitonin 3.09. 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 CMV +/- MRSA. Sputum culture 07/11/2018 no growth today. Chest CT showed bilateral patchy and somewhat confluent alveolar infiltrates and interstitial infiltrates. No effusions. Mild cardiomegaly. Sputum culture 07/15 grew MRSA and Jannette. Completed linezolid x 10 days until 07/23. S/p 21 days bactrim IV until 07/31/2018. 3) HIV, presumed AIDS: Patient has not taken his HIV medication for at least 6 months prior due to his incarceration. On admission he reported 40lbs unintentional weight loss for 2 months and intermittent loose stools over the past 2 weeks. VL 523,000/ CD4=7. Pneumocytosis Jirovecii positive. RPR nonreactive. Hepatitis panel negative. 4) Diarrhea: ? possible opportunistic infection. resolved 5) Acute respiratory failure: not better, from pneumonia. improving s/p trach/PEG placement 08/01 6) Anemia: s/p transfusion 7) Facial rash: ? 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 on 07/15/2018 Recommendations: - continue valganciclovir 900 mg PO BID D17 to cover CMV viremia - CMV DNA PCR on 08/06 ordered - continue bactrim DS 1 tab q day for PJP prophylaxis - contact isolation for MRSA - started on emtricitabine, tenofovir and dolutegravir 08/07/2018 Will follow Ana Kaur MD Infectious Diseases [employer] [facility] M [phone] O [phone] Subjective Date of service: 08/08/18 Principal diagnosis: Acute hypoxemic resp failure; Bilateral pneumonia (PJP); HIV/AIDS Interval history: Alert follows commands, on trach collar, no fever ROS unable to obtain Objective - Exam Narrative Exam: General appearance: alert, follows commands on trach collar Eyes: anicteric sclerae, moist conjunctivae; no lid-lag; PERRLA HENT: Atraumatic; +new papular/scaly rash on upper lip and nasalabial folds, +ulcer in upper lip. oropharynx clear Neck: +trach Lungs: ryland rhonchi CV: RRR Abdomen: Soft, +PEG Extremities: No peripheral edema or extremity lymphadenopathy Skin: Normal temperature, turgor and texture; no rash, ulcers or subcutaneous nodules Psych: no agitated. Neuro: alert follows commands, moving all extr - Constitutional Vitals: Vital Signs Temp Pulse Resp BP Pulse Ox 97.9 F 96 H 16 81/43 99 08/08/18 16:45 08/08/18 16:45 08/08/18 16:45 08/08/18 16:45 08/08/18 20:23 Temperature -Last 24 Hours Temperature 97.9 F Temperature 98.2 F Temperature 99.4 F - Labs CBC & Chem 7: 08/07/18 07:57 08/08/18 04:38 Labs: Abnormal lab results 08/08/18 Range/Units 04:38 Creatinine 0.4 L (0.8-1.5) mg/dL
[2018-08-08] MEDS: NACL 0.9% 1000 ML 1,000 ML IV SCH (22:16)
[2018-08-09] MEDS: HEPARIN SUB-Q SCH ×3 (09:52→22:08)
[2018-08-09] MEDS: ZITHROMAX PO SCH (09:53)
[2018-08-09] MEDS: PEPCID PO SCH ×2 (09:53→22:08)
[2018-08-09] MEDS: EMTRIVA PO SCH (09:53)
[2018-08-09] MEDS: BACTRIM 200-40 MG/5 ML PO SCH (09:53)
[2018-08-09] MEDS: TIVICAY PO SCH (09:53)
[2018-08-09] MEDS: CARDURA PO SCH (09:53)
[2018-08-09] MEDS: SODIUM CHLORIDE FLUSH SYRINGE 10 ML IV SCH ×2 (09:54→22:09)
[2018-08-09] MEDS: KENALOG TP SCH ×2 (10:08→22:27)
[2018-08-09] MEDS: VIREAD PO SCH (10:09)
[2018-08-09] MEDS: NACL 0.9% 1000 ML 1,000 ML IV SCH ×2 (10:13→22:16)
--- NOTE | 2018-08-09 13:29 | Progress Note ---
Assessment and Plan Acute hypoxemic respiratory failure, on mechanical ventilatory support. Bilateral pneumonia, high suspicion for Pneumocystis jiroveci pneumonia. MRSA Pneumonia Human immunodeficiency virus/acquired immunodeficiency syndrome,noncompliant with therapy. Hyponatremia. Severe protein calorie malnutrition. Elevated D-dimer. Tobacco use disorder. - begin daytime PMV trials as tolerated - capping trials from tomorrow and tentative decanulation soon after - continue to wean supplemental oxygen to keep O2 sats 88-90% acutely - continue Seroquel but tapering slowly - continue bronchodilators with pulmonary hygiene per RT - prn ABG's at this point - continue GI & VTE prophylaxis - prn CXR's at this point - continue Anti-infectives and ART per ID rec's - Avoid nephrotoxic agents, adjust all medications for CrCL - Tube feedings as tolerated - Accuchecks with glycemic control. Target glucose of 140-180 mg/dL - Maintenance of sleep -wake cycle - continue mobility protocol for pressure ulcer prophylaxis - Influenza and pneumonia vaccination per protocol CODE STATUS: FULL CODE Subjective Date of service: 08/09/18 Principal diagnosis: Acute hypoxemic resp failure; Bilateral pneumonia (PJP); HIV/AIDS Interval history: Patient is seen today for: Acute hypoxemic respiratory failure, on mechanical ventilatory support; Bilateral pneumonia, high suspicion for Pneumocystis jiroveci pneumonia; Human immunodeficiency virus/acquired immunodeficiency syndrome,noncompliant with therapy; Hyponatremia; Severe protein calorie malnutrition. Seen and examined at bedside; 24-hour events reviewed; nursing and respiratory care staff consulted; no adverse overnight events reported to me; resting peacefully in bed; denies acute chest pains or palpitations; on t-collar and tolerating well; secretions well controlled; No N/V/F/C Objective Vital Signs - 12hr 08/09/18 08/09/18 08/09/18 04:51 08:36 08:48 Temperature 98.3 F 98.7 F Pulse Rate 97 H 93 H Respiratory 18 18 Rate Blood Pressure 97/62 79/45 O2 Sat by Pulse 97 97 96 Oximetry O2 Sat by Pulse Oximetry [ Assessment] 08/09/18 08/09/18 08:49 10:00 Temperature Pulse Rate 90 Respiratory 20 Rate Blood Pressure O2 Sat by Pulse Oximetry O2 Sat by Pulse 95 Oximetry [ Assessment] Constitutional: no acute distress, other (young AAM; normocephalic and atraumatic) Eyes: non-icteric ENT: oropharynx moist, other (extubated) Neck: supple, no lymphadenopathy, no JVD, other (no thyromegaly) Effort: mildly labored Ascultation: Bilateral: diminished breath sounds, rhonchi Percussion: Bilateral: not dull Cardiovascular: regular rate and rhythm, other (S1,S2, no murmurs, gallops or rubs) Gastrointestinal: normoactive bowel sounds, soft, non-tender, non-distended Integumentary: normal Extremities: no cyanosis, no edema, pulses normal, no ischemia or petechiae Neurologic: normal mental status, non-focal exam, pupils equal and round, CN II- XII normal, motor strength normal and Psychiatric: mood appropriate, affect normal CBC and BMP: 08/07/18 07:57 08/08/18 04:38 ABG, PT/INR, D-dimer: ABG POC ABG pH 7.507 (7.35-7.45) H 08/06/18 22:01 POC ABG pCO2 33.6 (35-45) L 08/06/18 22:01 POC ABG pO2 113 (80-105) H 08/06/18 22:01 POC ABG HCO3 26.6 (22-26 mml/L) 08/06/18 22:01 POC ABG Total CO2 28 (23-27mmol/L) 08/06/18 22:01 POC ABG O2 Sat 99 08/06/18 22:01 PT/INR, D-dimer 1298.70 ng/mlDDU (0-234) H 07/11/18 15:04 Abnormal lab findings: Abnormal Labs 07/11/18 07/11/18 07/11/18 14:06 14:06 15:04 WBC RBC 3.30 L Hgb 9.6 L Hct 28.7 L MCHC RDW Plt Count Lymph % (Auto) Lymph # Seg Neutrophils % Abs Lymphs (Manual) D-Dimer 1298.70 H POC ABG pH POC ABG pCO2 POC ABG pO2 Sodium 132 L Potassium Chloride Carbon Dioxide BUN Creatinine 0.6 L Glucose 103 H POC Glucose Calcium 7.3 L AST ALT Lactate Dehydrogenase C-Reactive Protein Total Protein Albumin 2.1 L Triglycerides Lymph Enumerat CD4/CD8 % CD3 Cells Absolute CD3 Count % CD4 Cells Absolute CD4 Count % CD8 Cells Absolute CD8 Count % CD19 Cells Absolute CD19 Count HIV-1 RNA PCR copies/ml HIV-1 RNA (PCR) log HIV-1 Genotyping Miscellaneous Test Crossmatch 07/11/18 07/11/18 07/12/18 17:36 22:15 00:25 WBC RBC Hgb Hct MCHC RDW Plt Count Lymph % (Auto) Lymph # Seg Neutrophils % Abs Lymphs (Manual) D-Dimer POC ABG pH 7.289 L POC ABG pCO2 POC ABG pO2 66 L Sodium Potassium Chloride Carbon Dioxide BUN Creatinine Glucose POC Glucose Calcium AST ALT Lactate Dehydrogenase 591 H C-Reactive Protein Total Protein Albumin Triglycerides Lymph Enumerat CD4/CD8 % CD3 Cells Absolute CD3 Count % CD4 Cells Absolute CD4 Count % CD8 Cells Absolute CD8 Count % CD19 Cells Absolute CD19 Count HIV-1 RNA PCR copies/ml HIV-1 RNA (PCR) log HIV-1 Genotyping Miscellaneous Test see below H Crossmatch 07/12/18 07/12/18 07/12/18 00:41 05:37 19:29 WBC RBC Hgb Hct MCHC RDW Plt Count Lymph % (Auto) Lymph # Seg Neutrophils % Abs Lymphs (Manual) D-Dimer POC ABG pH 7.302 L 7.275 L POC ABG pCO2 47.1 H POC ABG pO2 Sodium Potassium Chloride Carbon Dioxide BUN Creatinine Glucose POC Glucose Calcium AST ALT Lactate Dehydrogenase 731 H C-Reactive Protein Total Protein Albumin Triglycerides Lymph Enumerat CD4/CD8 % CD3 Cells Absolute CD3 Count % CD4 Cells Absolute CD4 Count % CD8 Cells Absolute CD8 Count % CD19 Cells Absolute CD19 Count HIV-1 RNA PCR copies/ml HIV-1 RNA (PCR) log HIV-1 Genotyping Miscellaneous Test Crossmatch 07/12/18 07/12/18 07/13/18 19:29 19:29 04:03 WBC RBC Hgb Hct MCHC RDW Plt Count Lymph % (Auto) Lymph # Seg Neutrophils % Abs Lymphs (Manual) 220 L D-Dimer POC ABG pH 7.254 L POC ABG pCO2 49.2 H POC ABG pO2 Sodium Potassium Chloride Carbon Dioxide BUN Creatinine Glucose POC Glucose Calcium AST ALT Lactate Dehydrogenase C-Reactive Protein Total Protein Albumin Triglycerides Lymph Enumerat CD4/CD8 0.04 L % CD3 Cells 88 H Absolute CD3 Count 194 L % CD4 Cells 3 L Absolute CD4 Count 7 L % CD8 Cells 75 H Absolute CD8 Count 177 L % CD19 Cells 4 L Absolute CD19 Count 9 L HIV-1 RNA PCR copies/ml 436855 H HIV-1 RNA (PCR) log 5.72 H HIV-1 Genotyping Miscellaneous Test Crossmatch 07/13/18 07/13/18 07/13/18 05:46 12:23 18:31 WBC RBC Hgb Hct MCHC RDW Plt Count Lymph % (Auto) Lymph # Seg Neutrophils % Abs Lymphs (Manual) D-Dimer POC ABG pH POC ABG pCO2 POC ABG pO2 Sodium Potassium Chloride Carbon Dioxide BUN Creatinine Glucose POC Glucose 68 L 106 H 112 H Calcium AST ALT Lactate Dehydrogenase C-Reactive Protein Total Protein Albumin Triglycerides Lymph Enumerat CD4/CD8 % CD3 Cells Absolute CD3 Count % CD4 Cells Absolute CD4 Count % CD8 Cells Absolute CD8 Count % CD19 Cells Absolute CD19 Count HIV-1 RNA PCR copies/ml HIV-1 RNA (PCR) log HIV-1 Genotyping Miscellaneous Test Crossmatch 07/14/18 07/14/18 07/14/18 04:19 05:36 05:36 WBC RBC 2.99 L Hgb 8.8 L Hct 25.7 L MCHC RDW 15.5 H Plt Count Lymph % (Auto) Lymph # Seg Neutrophils % Abs Lymphs (Manual) D-Dimer POC ABG pH 7.337 L POC ABG pCO2 POC ABG pO2 Sodium 135 L Potassium Chloride Carbon Dioxide 21 L BUN Creatinine 0.7 L Glucose 123 H POC Glucose Calcium 8.2 L AST ALT Lactate Dehydrogenase C-Reactive Protein Total Protein Albumin Triglycerides Lymph Enumerat CD4/CD8 % CD3 Cells Absolute CD3 Count % CD4 Cells Absolute CD4 Count % CD8 Cells Absolute CD8 Count % CD19 Cells Absolute CD19 Count HIV-1 RNA PCR copies/ml HIV-1 RNA (PCR) log HIV-1 Genotyping Miscellaneous Test Crossmatch 07/14/18 07/14/18 07/14/18 12:14 14:33 17:18 WBC RBC Hgb Hct MCHC RDW Plt Count Lymph % (Auto) Lymph # Seg Neutrophils % Abs Lymphs (Manual) D-Dimer POC ABG pH 7.325 L POC ABG pCO2 POC ABG pO2 75 L Sodium Potassium Chloride Carbon Dioxide BUN Creatinine Glucose POC Glucose 174 H 114 H Calcium AST ALT Lactate Dehydrogenase C-Reactive Protein Total Protein Albumin Triglycerides Lymph Enumerat CD4/CD8 % CD3 Cells Absolute CD3 Count % CD4 Cells Absolute CD4 Count % CD8 Cells Absolute CD8 Count % CD19 Cells Absolute CD19 Count HIV-1 RNA PCR copies/ml HIV-1 RNA (PCR) log HIV-1 Genotyping Miscellaneous Test Crossmatch 07/15/18 07/15/18 07/15/18 00:17 12:29 12:29 WBC RBC 2.64 L Hgb 7.5 L Hct 22.9 L MCHC RDW 15.4 H Plt Count Lymph % (Auto) 7.0 L Lymph # 0.4 L Seg Neutrophils % 89.6 H Abs Lymphs (Manual) D-Dimer POC ABG pH POC ABG pCO2 POC ABG pO2 Sodium Potassium Chloride Carbon Dioxide BUN Creatinine 0.6 L Glucose 124 H POC Glucose 113 H Calcium 7.3 L AST ALT Lactate Dehydrogenase C-Reactive Protein Total Protein Albumin Triglycerides Lymph Enumerat CD4/CD8 % CD3 Cells Absolute CD3 Count % CD4 Cells Absolute CD4 Count % CD8 Cells Absolute CD8 Count % CD19 Cells Absolute CD19 Count HIV-1 RNA PCR copies/ml HIV-1 RNA (PCR) log HIV-1 Genotyping Miscellaneous Test Crossmatch 07/15/18 07/16/18 07/16/18 14:09 04:46 07:21 WBC RBC Hgb Hct MCHC RDW Plt Count Lymph % (Auto) Lymph # Seg Neutrophils % Abs Lymphs (Manual) D-Dimer POC ABG pH 7.282 L POC ABG pCO2 52.6 H POC ABG pO2 63 L Sodium Potassium Chloride Carbon Dioxide BUN Creatinine Glucose POC Glucose Calcium AST ALT Lactate Dehydrogenase C-Reactive Protein 2.70 H Total Protein Albumin Triglycerides Lymph Enumerat CD4/CD8 % CD3 Cells Absolute CD3 Count % CD4 Cells Absolute CD4 Count % CD8 Cells Absolute CD8 Count % CD19 Cells Absolute CD19 Count HIV-1 RNA PCR copies/ml HIV-1 RNA (PCR) log HIV-1 Genotyping Miscellaneous Test Flexitest 1 H Crossmatch 07/16/18 07/16/18 07/16/18 07:21 07:21 16:16 WBC RBC 2.48 L Hgb 7.2 L Hct 21.5 L MCHC RDW 15.7 H Plt Count Lymph % (Auto) Lymph # Seg Neutrophils % Abs Lymphs (Manual) D-Dimer POC ABG pH 7.251 L POC ABG pCO2 62.2 H POC ABG pO2 Sodium 136 L Potassium Chloride Carbon Dioxide BUN Creatinine 0.6 L Glucose 118 H POC Glucose Calcium 7.5 L AST ALT Lactate Dehydrogenase C-Reactive Protein Total Protein Albumin Triglycerides Lymph Enumerat CD4/CD8 % CD3 Cells Absolute CD3 Count % CD4 Cells Absolute CD4 Count % CD8 Cells Absolute CD8 Count % CD19 Cells Absolute CD19 Count HIV-1 RNA PCR copies/ml HIV-1 RNA (PCR) log HIV-1 Genotyping Miscellaneous Test Crossmatch 07/17/18 07/18/18 07/18/18 04:01 01:10 03:10 WBC RBC 2.20 L Hgb 6.5 L Hct 19.2 L* MCHC RDW 16.0 H Plt Count Lymph % (Auto) 7.2 L Lymph # 0.5 L Seg Neutrophils % 89.9 H Abs Lymphs (Manual) D-Dimer POC ABG pH 7.245 L POC ABG pCO2 63.8 H POC ABG pO2 75 L Sodium Potassium Chloride Carbon Dioxide BUN Creatinine Glucose POC Glucose Calcium AST ALT Lactate Dehydrogenase C-Reactive Protein Total Protein Albumin Triglycerides Lymph Enumerat CD4/CD8 % CD3 Cells Absolute CD3 Count % CD4 Cells Absolute CD4 Count % CD8 Cells Absolute CD8 Count % CD19 Cells Absolute CD19 Count HIV-1 RNA PCR copies/ml HIV-1 RNA (PCR) log HIV-1 Genotyping Miscellaneous Test Crossmatch See Detail 07/18/18 07/18/18 07/18/18 04:54 05:02 12:59 WBC RBC Hgb Hct MCHC RDW Plt Count Lymph % (Auto) Lymph # Seg Neutrophils % Abs Lymphs (Manual) D-Dimer POC ABG pH 7.615 H POC ABG pCO2 32.6 L 48.8 H POC ABG pO2 79 L 118 H Sodium Potassium Chloride Carbon Dioxide BUN Creatinine Glucose POC Glucose 164 H Calcium AST ALT Lactate Dehydrogenase C-Reactive Protein Total Protein Albumin Triglycerides Lymph Enumerat CD4/CD8 % CD3 Cells Absolute CD3 Count % CD4 Cells Absolute CD4 Count % CD8 Cells Absolute CD8 Count % CD19 Cells Absolute CD19 Count HIV-1 RNA PCR copies/ml HIV-1 RNA (PCR) log HIV-1 Genotyping Miscellaneous Test Crossmatch 07/18/18 07/18/18 07/19/18 18:25 20:39 03:53 WBC RBC Hgb Hct MCHC RDW Plt Count Lymph % (Auto) Lymph # Seg Neutrophils % Abs Lymphs (Manual) D-Dimer POC ABG pH 7.339 L POC ABG pCO2 59.9 H 65.0 H POC ABG pO2 69 L Sodium Potassium Chloride Carbon Dioxide BUN Creatinine Glucose POC Glucose 155 H Calcium AST ALT Lactate Dehydrogenase C-Reactive Protein Total Protein Albumin Triglycerides Lymph Enumerat CD4/CD8 % CD3 Cells Absolute CD3 Count % CD4 Cells Absolute CD4 Count % CD8 Cells Absolute CD8 Count % CD19 Cells Absolute CD19 Count HIV-1 RNA PCR copies/ml HIV-1 RNA (PCR) log HIV-1 Genotyping Miscellaneous Test Crossmatch 07/19/18 07/19/18 07/19/18 08:10 08:10 10:52 WBC RBC 2.51 L Hgb 7.4 L Hct 22.0 L MCHC RDW 15.5 H Plt Count Lymph % (Auto) Lymph # Seg Neutrophils % Abs Lymphs (Manual) D-Dimer POC ABG pH POC ABG pCO2 POC ABG pO2 Sodium 130 L Potassium Chloride 89.0 L Carbon Dioxide 33 H BUN Creatinine 0.4 L Glucose 150 H POC Glucose 173 H Calcium 7.5 L AST ALT Lactate Dehydrogenase C-Reactive Protein Total Protein Albumin Triglycerides Lymph Enumerat CD4/CD8 % CD3 Cells Absolute CD3 Count % CD4 Cells Absolute CD4 Count % CD8 Cells Absolute CD8 Count % CD19 Cells Absolute CD19 Count HIV-1 RNA PCR copies/ml HIV-1 RNA (PCR) log HIV-1 Genotyping Miscellaneous Test Crossmatch 07/19/18 07/19/18 07/20/18 17:06 23:47 04:37 WBC RBC Hgb Hct MCHC RDW Plt Count Lymph % (Auto) Lymph # Seg Neutrophils % Abs Lymphs (Manual) D-Dimer POC ABG pH POC ABG pCO2 58.5 H POC ABG pO2 67 L Sodium Potassium Chloride Carbon Dioxide BUN Creatinine Glucose POC Glucose 117 H 114 H Calcium AST ALT Lactate Dehydrogenase C-Reactive Protein Total Protein Albumin Triglycerides Lymph Enumerat CD4/CD8 % CD3 Cells Absolute CD3 Count % CD4 Cells Absolute CD4 Count % CD8 Cells Absolute CD8 Count % CD19 Cells Absolute CD19 Count HIV-1 RNA PCR copies/ml HIV-1 RNA (PCR) log HIV-1 Genotyping Miscellaneous Test Crossmatch 07/20/18 07/20/18 07/21/18 06:20 06:20 04:18 WBC RBC 2.69 L Hgb 7.8 L Hct 23.6 L MCHC RDW 15.5 H Plt Count Lymph % (Auto) Lymph # Seg Neutrophils % Abs Lymphs (Manual) D-Dimer POC ABG pH 7.456 H POC ABG pCO2 60.4 H POC ABG pO2 64 L Sodium 134 L Potassium Chloride 89.2 L Carbon Dioxide 38 H BUN Creatinine 0.7 L D Glucose 120 H POC Glucose Calcium 7.6 L AST ALT Lactate Dehydrogenase C-Reactive Protein Total Protein Albumin Triglycerides Lymph Enumerat CD4/CD8 % CD3 Cells Absolute CD3 Count % CD4 Cells Absolute CD4 Count % CD8 Cells Absolute CD8 Count % CD19 Cells Absolute CD19 Count HIV-1 RNA PCR copies/ml HIV-1 RNA (PCR) log HIV-1 Genotyping Miscellaneous Test Crossmatch 07/21/18 07/21/18 07/22/18 04:35 04:35 04:16 WBC RBC 2.62 L 2.37 L Hgb 7.7 L 7.0 L Hct 23.1 L 21.1 L MCHC RDW 15.4 H Plt Count Lymph % (Auto) Lymph # Seg Neutrophils % Abs Lymphs (Manual) D-Dimer POC ABG pH POC ABG pCO2 POC ABG pO2 Sodium 129 L Potassium 5.3 H Chloride 85.3 L Carbon Dioxide 38 H BUN Creatinine 0.4 L Glucose 108 H POC Glucose Calcium 8.0 L AST ALT Lactate Dehydrogenase C-Reactive Protein Total Protein Albumin Triglycerides Lymph Enumerat CD4/CD8 % CD3 Cells Absolute CD3 Count % CD4 Cells Absolute CD4 Count % CD8 Cells Absolute CD8 Count % CD19 Cells Absolute CD19 Count HIV-1 RNA PCR copies/ml HIV-1 RNA (PCR) log HIV-1 Genotyping Miscellaneous Test Crossmatch 07/22/18 07/23/18 07/23/18 04:16 03:25 12:45 WBC RBC Hgb Hct MCHC RDW Plt Count Lymph % (Auto) Lymph # Seg Neutrophils % Abs Lymphs (Manual) D-Dimer POC ABG pH POC ABG pCO2 69.4 H POC ABG pO2 Sodium 132 L 125 L D Potassium 5.4 H 5.3 H Chloride 87.4 L 80.3 L Carbon Dioxide 38 H 38 H BUN Creatinine 0.4 L 0.3 L Glucose 117 H 124 H POC Glucose Calcium 7.5 L 7.4 L AST ALT Lactate Dehydrogenase C-Reactive Protein Total Protein Albumin Triglycerides Lymph Enumerat CD4/CD8 % CD3 Cells Absolute CD3 Count % CD4 Cells Absolute CD4 Count % CD8 Cells Absolute CD8 Count % CD19 Cells Absolute CD19 Count HIV-1 RNA PCR copies/ml HIV-1 RNA (PCR) log HIV-1 Genotyping Miscellaneous Test Crossmatch 07/23/18 07/24/18 07/24/18 23:52 04:30 04:30 WBC RBC 2.12 L Hgb 6.3 L Hct 18.9 L* MCHC RDW Plt Count Lymph % (Auto) Lymph # Seg Neutrophils % Abs Lymphs (Manual) D-Dimer POC ABG pH POC ABG pCO2 POC ABG pO2 Sodium 127 L Potassium 5.2 H Chloride 83.9 L Carbon Dioxide 39 H BUN Creatinine 0.3 L Glucose POC Glucose 118 H Calcium 7.5 L AST ALT Lactate Dehydrogenase C-Reactive Protein Total Protein Albumin Triglycerides Lymph Enumerat CD4/CD8 % CD3 Cells Absolute CD3 Count % CD4 Cells Absolute CD4 Count % CD8 Cells Absolute CD8 Count % CD19 Cells Absolute CD19 Count HIV-1 RNA PCR copies/ml HIV-1 RNA (PCR) log HIV-1 Genotyping Miscellaneous Test Crossmatch 07/24/18 07/24/18 07/24/18 05:11 05:30 07:50 WBC RBC Hgb Hct MCHC RDW Plt Count Lymph % (Auto) Lymph # Seg Neutrophils % Abs Lymphs (Manual) D-Dimer POC ABG pH 7.462 H POC ABG pCO2 58.7 H POC ABG pO2 79 L Sodium Potassium Chloride Carbon Dioxide BUN Creatinine Glucose POC Glucose 145 H Calcium AST ALT Lactate Dehydrogenase C-Reactive Protein Total Protein Albumin Triglycerides Lymph Enumerat CD4/CD8 % CD3 Cells Absolute CD3 Count % CD4 Cells Absolute CD4 Count % CD8 Cells Absolute CD8 Count % CD19 Cells Absolute CD19 Count HIV-1 RNA PCR copies/ml HIV-1 RNA (PCR) log HIV-1 Genotyping Miscellaneous Test Crossmatch See Detail 07/25/18 07/25/18 07/25/18 09:30 09:30 17:05 WBC RBC 2.99 L Hgb 9.1 L Hct 27.0 L D MCHC RDW Plt Count Lymph % (Auto) Lymph # Seg Neutrophils % Abs Lymphs (Manual) D-Dimer POC ABG pH POC ABG pCO2 POC ABG pO2 Sodium 131 L Potassium 5.1 H Chloride 84.4 L Carbon Dioxide 39 H BUN Creatinine 0.3 L Glucose 133 H POC Glucose Calcium 8.0 L AST ALT Lactate Dehydrogenase C-Reactive Protein Total Protein Albumin Triglycerides Lymph Enumerat CD4/CD8 % CD3 Cells Absolute CD3 Count % CD4 Cells Absolute CD4 Count % CD8 Cells Absolute CD8 Count % CD19 Cells Absolute CD19 Count HIV-1 RNA PCR copies/ml HIV-1 RNA (PCR) log HIV-1 Genotyping Detected H Miscellaneous Test Crossmatch 07/26/18 07/26/18 07/26/18 00:18 04:07 05:50 WBC RBC 3.01 L Hgb 9.4 L Hct 27.2 L MCHC 35 H RDW Plt Count Lymph % (Auto) 10.4 L Lymph # 0.9 L Seg Neutrophils % 84.2 H Abs Lymphs (Manual) D-Dimer POC ABG pH 7.456 H POC ABG pCO2 61.4 H POC ABG pO2 68 L Sodium 135 L Potassium 5.5 H Chloride 88.4 L Carbon Dioxide 38 H BUN Creatinine 0.3 L Glucose POC Glucose Calcium AST ALT Lactate Dehydrogenase C-Reactive Protein Total Protein Albumin Triglycerides Lymph Enumerat CD4/CD8 % CD3 Cells Absolute CD3 Count % CD4 Cells Absolute CD4 Count % CD8 Cells Absolute CD8 Count % CD19 Cells Absolute CD19 Count HIV-1 RNA PCR copies/ml HIV-1 RNA (PCR) log HIV-1 Genotyping Miscellaneous Test Crossmatch 07/26/18 07/26/18 07/27/18 05:50 14:56 14:26 WBC RBC Hgb Hct MCHC RDW Plt Count Lymph % (Auto) Lymph # Seg Neutrophils % Abs Lymphs (Manual) D-Dimer POC ABG pH 7.472 H POC ABG pCO2 66.0 H 57.4 H POC ABG pO2 56 L 59 L Sodium 131 L Potassium 5.1 H Chloride 84.5 L Carbon Dioxide 39 H BUN Creatinine 0.3 L Glucose POC Glucose Calcium AST 78 H ALT 71 H Lactate Dehydrogenase C-Reactive Protein Total Protein 6.0 L Albumin 2.5 L Triglycerides Lymph Enumerat CD4/CD8 % CD3 Cells Absolute CD3 Count % CD4 Cells Absolute CD4 Count % CD8 Cells Absolute CD8 Count % CD19 Cells Absolute CD19 Count HIV-1 RNA PCR copies/ml HIV-1 RNA (PCR) log HIV-1 Genotyping Miscellaneous Test Crossmatch 07/28/18 07/28/18 07/28/18 05:20 05:20 05:20 WBC RBC 3.21 L Hgb 10.0 L Hct 29.9 L MCHC RDW 15.4 H Plt Count 451 H Lymph % (Auto) Lymph # Seg Neutrophils % 81.6 H Abs Lymphs (Manual) D-Dimer POC ABG pH POC ABG pCO2 POC ABG pO2 Sodium 136 L Potassium Chloride 89.9 L Carbon Dioxide 38 H BUN Creatinine 0.4 L Glucose POC Glucose Calcium 8.1 L AST 104 H ALT 113 H Lactate Dehydrogenase C-Reactive Protein Total Protein 6.2 L Albumin 2.5 L Triglycerides 209 H Lymph Enumerat CD4/CD8 % CD3 Cells Absolute CD3 Count % CD4 Cells Absolute CD4 Count % CD8 Cells Absolute CD8 Count % CD19 Cells Absolute CD19 Count HIV-1 RNA PCR copies/ml HIV-1 RNA (PCR) log HIV-1 Genotyping Miscellaneous Test Crossmatch 07/28/18 07/28/18 07/29/18 06:08 17:22 04:28 WBC RBC Hgb Hct MCHC RDW Plt Count Lymph % (Auto) Lymph # Seg Neutrophils % Abs Lymphs (Manual) D-Dimer POC ABG pH 7.328 L POC ABG pCO2 65.7 H 55.1 H POC ABG pO2 70 L 113 H 76 L Sodium Potassium Chloride Carbon Dioxide BUN Creatinine Glucose POC Glucose Calcium AST ALT Lactate Dehydrogenase C-Reactive Protein Total Protein Albumin Triglycerides Lymph Enumerat CD4/CD8 % CD3 Cells Absolute CD3 Count % CD4 Cells Absolute CD4 Count % CD8 Cells Absolute CD8 Count % CD19 Cells Absolute CD19 Count HIV-1 RNA PCR copies/ml HIV-1 RNA (PCR) log HIV-1 Genotyping Miscellaneous Test Crossmatch 08/02/18 08/02/18 08/03/18 06:30 06:30 06:30 WBC RBC 2.96 L 2.78 L Hgb 9.4 L 9.0 L Hct 27.6 L 26.3 L MCHC RDW 18.4 H 19.6 H Plt Count Lymph % (Auto) 11.1 L Lymph # 0.6 L 0.7 L Seg Neutrophils % 84.0 H 79.0 H Abs Lymphs (Manual) D-Dimer POC ABG pH POC ABG pCO2 POC ABG pO2 Sodium 133 L Potassium Chloride 92.7 L Carbon Dioxide BUN 22 H Creatinine 0.5 L Glucose POC Glucose Calcium 8.1 L AST ALT Lactate Dehydrogenase C-Reactive Protein Total Protein Albumin Triglycerides Lymph Enumerat CD4/CD8 % CD3 Cells Absolute CD3 Count % CD4 Cells Absolute CD4 Count % CD8 Cells Absolute CD8 Count % CD19 Cells Absolute CD19 Count HIV-1 RNA PCR copies/ml HIV-1 RNA (PCR) log HIV-1 Genotyping Miscellaneous Test Crossmatch 08/03/18 08/04/18 08/05/18 06:30 17:13 08:03 WBC RBC 2.77 L Hgb 8.8 L Hct 25.8 L MCHC RDW 20.4 H Plt Count Lymph % (Auto) Lymph # 0.9 L Seg Neutrophils % 76.6 H Abs Lymphs (Manual) D-Dimer POC ABG pH POC ABG pCO2 POC ABG pO2 Sodium 131 L Potassium Chloride 92.0 L Carbon Dioxide BUN Creatinine 0.3 L Glucose POC Glucose 120 H Calcium 8.0 L AST ALT Lactate Dehydrogenase C-Reactive Protein Total Protein 6.0 L Albumin 2.4 L Triglycerides Lymph Enumerat CD4/CD8 % CD3 Cells Absolute CD3 Count % CD4 Cells Absolute CD4 Count % CD8 Cells Absolute CD8 Count % CD19 Cells Absolute CD19 Count HIV-1 RNA PCR copies/ml HIV-1 RNA (PCR) log HIV-1 Genotyping Miscellaneous Test Crossmatch 08/05/18 08/06/18 08/06/18 08:03 07:38 22:01 WBC RBC Hgb Hct MCHC RDW Plt Count Lymph % (Auto) Lymph # Seg Neutrophils % Abs Lymphs (Manual) D-Dimer POC ABG pH 7.507 H POC ABG pCO2 33.6 L POC ABG pO2 113 H Sodium 132 L 131 L Potassium 3.5 L Chloride 93.0 L 92.4 L Carbon Dioxide BUN Creatinine 0.3 L 0.4 L Glucose POC Glucose Calcium 8.0 L 8.1 L AST ALT Lactate Dehydrogenase C-Reactive Protein Total Protein Albumin Triglycerides Lymph Enumerat CD4/CD8 % CD3 Cells Absolute CD3 Count % CD4 Cells Absolute CD4 Count % CD8 Cells Absolute CD8 Count % CD19 Cells Absolute CD19 Count HIV-1 RNA PCR copies/ml HIV-1 RNA (PCR) log HIV-1 Genotyping Miscellaneous Test Crossmatch 08/07/18 08/07/18 08/08/18 07:57 07:57 04:38 WBC 4.1 L RBC 3.00 L Hgb 9.4 L Hct 27.9 L MCHC RDW 19.2 H Plt Count Lymph % (Auto) Lymph # Seg Neutrophils % Abs Lymphs (Manual) D-Dimer POC ABG pH POC ABG pCO2 POC ABG pO2 Sodium 133 L Potassium 3.2 L Chloride 95.9 L Carbon Dioxide BUN Creatinine 0.4 L 0.4 L Glucose 104 H POC Glucose Calcium AST ALT Lactate Dehydrogenase C-Reactive Protein Total Protein Albumin 2.6 L Triglycerides Lymph Enumerat CD4/CD8 % CD3 Cells Absolute CD3 Count % CD4 Cells Absolute CD4 Count % CD8 Cells Absolute CD8 Count % CD19 Cells Absolute CD19 Count HIV-1 RNA PCR copies/ml HIV-1 RNA (PCR) log HIV-1 Genotyping Miscellaneous Test Crossmatch Allied health notes reviewed: nursing
--- NOTE | 2018-08-09 13:38 | Progress Note ---
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 Case management/social issues /-Evaluation for LTAC placement Monitor closely and adjust the management as needed Disposition; pain as tolerated, and discharge when clinically stable. transfer to medicine floor Brief History Patient is a 37 yo man with a history of HIV and tobacco dependency who presents from [facility] to [facility] ED with sob and cough. Pt admitted to IMCU and initiated on Pneumonia protocol. Chest CT showed bilateral patchy and somewhat confluent alveolar infiltrates and interstitial infiltrates. Patient required emergent intubation , unable to wean , vent dependent , s/p trach and PEG on ventilatory support and very resistant hypoxia. Clinically stable except for hypoxia and trach dependent. Hospitalist Physical General appearance: Present: no acute distress, cachectic, disheveled, other (tracheostomy ) - EENT Eyes: Present: PERRL, EOM intact - Neck Neck: Present: supple, normal ROM - Respiratory Respiratory effort: normal Respiratory: bilateral: diminished, rhonchi, negative: rales, wheezing - Cardiovascular Rhythm: regular Heart Sounds: Present: S1 & S2 - Extremities Extremities: no ischemia, No edema - Abdominal General gastrointestinal: soft, non-tender, non-distended, normal bowel sounds - Integumentary Integumentary: Present: clear, warm - Psychiatric Psychiatric: appropriate mood/affect, cooperative - Neurologic Neurologic: CNII-XII intact, moves all extremities Subjective Date of service: 08/09/18 Principal diagnosis: Acute hypoxemic resp failure; Bilateral pneumonia (PJP); HIV/AIDS Interval history: Patient seen and examined. Medical records and medication list reviewed. No acute event overnight noted by the RN. Patient denies any chest pain, breathing comfortably on trach. Patient is tolerating tube feeding diet. Discussed plan of care at bedside with patient. Objective - Constitutional Vitals: Vital Signs - 12hr 08/09/18 08/09/18 08/09/18 04:51 08:36 08:48 Temperature 98.3 F 98.7 F Pulse Rate 97 H 93 H Respiratory 18 18 Rate Blood Pressure 97/62 79/45 O2 Sat by Pulse 97 97 96 Oximetry O2 Sat by Pulse Oximetry [ Assessment] 08/09/18 08/09/18 08:49 10:00 Temperature Pulse Rate 90 Respiratory 20 Rate Blood Pressure O2 Sat by Pulse Oximetry O2 Sat by Pulse 95 Oximetry [ Assessment] - Labs CBC & Chem 7: 08/07/18 07:57 08/08/18 04:38
[2018-08-09] MEDS: VALGANCICLOVIR FEEDTUBE SCH ×2 (14:19→22:08)
[2018-08-09] MEDS ORDERED: PANCREAZE DR 10,500 UNIT FEEDTUBE PRN (17:59)
[2018-08-09] MEDS ORDERED: SIMPLE SYRUP FEEDTUBE PRN ×2 (17:59)
[2018-08-09] MEDS ORDERED: SODIUM BICARBONATE FEEDTUBE PRN (17:59)
--- NOTE | 2018-08-09 20:24 | Progress Note ---
Assessment and Plan Cultures: Blood culture 07/11/2018 no growth today. Cryptococcal antigen : negative MRSA PCR: positive Blood culture 07/15/2018: in progress Urine culture 07/15/2018: no growth in 24 hours Sputum culture 07/15/18: MRSA, Jannette CMV PCR 07/15/2018 33,392 copies Assessment: 37 y/o male currently in [facility] with history of HIV infection of unknown duration, noncompliant with antiretroviral medication, severe malnutrition; admitted on 07/11/2018, brought by law enforcement, due to 2-week history of shortness of breath, generalized weakness and productive cough: 1) Sepsis with new septic shock: off pressors. no fever. Etiology most likely pneumonia. CRP 2.7. Procalcitonin 3.09. 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 CMV +/- MRSA. Sputum culture 07/11/2018 no growth today. Chest CT showed bilateral patchy and somewhat confluent alveolar infiltrates and interstitial infiltrates. No effusions. Mild cardiomegaly. Sputum culture 07/15 grew MRSA and Jannette. Completed linezolid x 10 days until 07/23. S/p 21 days bactrim IV until 07/31/2018. 3) HIV, presumed AIDS: Patient has not taken his HIV medication for at least 6 months prior due to his incarceration. On admission he reported 40lbs unintentional weight loss for 2 months and intermittent loose stools over the past 2 weeks. VL 523,000/ CD4=7. Pneumocytosis Jirovecii positive. RPR nonreactive. Hepatitis panel negative. 4) Diarrhea: ? possible opportunistic infection. resolved 5) Acute respiratory failure: not better, from pneumonia. improving s/p trach/PEG placement 08/01 6) Anemia: s/p transfusion 7) Facial rash: ? 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 on 07/15/2018 Recommendations: - continue valganciclovir 900 mg PO BID D18 to cover CMV viremia - CMV DNA PCR on 08/06 ordered - continue bactrim DS 1 tab q day for PJP prophylaxis - contact isolation for MRSA - started on emtricitabine, tenofovir and dolutegravir on 08/07/2018 Dr Miner will be rounding tomorrow Ana Kaur MD Infectious Diseases [facility] ([facility]) M [phone] O [phone] Subjective Date of service: 08/09/18 Principal diagnosis: Acute hypoxemic resp failure; Bilateral pneumonia (PJP); HIV/AIDS Interval history: Alert follows commands, on trach collar, no fever ROS unable to obtain Objective - Exam Narrative Exam: General appearance: alert, follows commands on trach collar Eyes: anicteric sclerae, moist conjunctivae; no lid-lag; PERRLA HENT: Atraumatic; +new papular/scaly rash on upper lip and nasalabial folds, +ulcer in upper lip. oropharynx clear Neck: +trach Lungs: ryland rhonchi CV: RRR Abdomen: Soft, +PEG Extremities: No peripheral edema or extremity lymphadenopathy Skin: Normal temperature, turgor and texture; no rash, ulcers or subcutaneous nodules Psych: no agitated. Neuro: alert follows commands, moving all extr - Constitutional Vitals: Vital Signs Temp Pulse Resp BP Pulse Ox 98.7 F 90 20 79/45 95 08/09/18 08:36 08/09/18 10:00 08/09/18 10:00 08/09/18 08:36 08/09/18 15:30 Temperature -Last 24 Hours Temperature 98.7 F Temperature 98.3 F Temperature 98.1 F - Labs CBC & Chem 7: 08/07/18 07:57 08/08/18 04:38
[2018-08-09] MEDS: TYLENOL FEEDTUBE PRN (22:15)
[2018-08-10] MEDS: TYLENOL FEEDTUBE PRN (08:57)
[2018-08-10] MEDS: NACL 0.9% 1000 ML 1,000 ML IV SCH ×2 (08:58→23:20)
[2018-08-10] MEDS: EMTRIVA PO SCH (09:02)
[2018-08-10] MEDS: TIVICAY PO SCH (09:02)
[2018-08-10] MEDS: PEPCID PO SCH ×2 (09:02→23:19)
[2018-08-10] MEDS: VALGANCICLOVIR FEEDTUBE SCH ×2 (09:02→23:38)
[2018-08-10] MEDS: HEPARIN SUB-Q SCH ×3 (09:03→23:19)
[2018-08-10] MEDS: BACTRIM 200-40 MG/5 ML PO SCH (09:03)
[2018-08-10] MEDS: VIREAD PO SCH (09:04)
[2018-08-10] MEDS: SODIUM CHLORIDE FLUSH SYRINGE 10 ML IV SCH ×2 (09:04→23:20)
[2018-08-10] MEDS: KENALOG TP SCH ×2 (09:04→23:38)
[2018-08-10] MEDS: CARDURA PO SCH (10:00)
--- NOTE | 2018-08-10 10:12 | Progress Note ---
Assessment and Plan Cultures: Blood culture 07/11/2018 no growth today. Cryptococcal antigen : negative MRSA PCR: positive Blood culture 07/15/2018: in progress Urine culture 07/15/2018: no growth in 24 hours Sputum culture 07/15/18: MRSA, Jannette CMV PCR 07/15/2018 33,392 copies 08/06/2018 CMV PCR: 363 Assessment: 37 y/o male currently in long term with history of HIV infection of unknown duration, noncompliant with antiretroviral medication, severe malnutrition; admitted on 07/11/2018, brought by law enforcement, due to 2-week history of shortness of breath, generalized weakness and productive cough: 1) Sepsis with new septic shock: Resolved. Etiology most likely pneumonia. 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 CMV +/- MRSA. Chest CT showed bilateral patchy and somewhat confluent alveolar infiltrates and interstitial infiltrates. No effusions. Sputum culture 07/15 grew MRSA and Jannette. PJP DFA was also positive. Completed linezolid x 10 days until 07/23. S/p 21 days bactrim IV until 07/31/2018. 3) HIV with AIDS: Patient had not taken his HIV medication for at least 6 months prior due to his incarceration. On admission he reported 40lbs unintentional madyson ght loss for 2 months and intermittent loose stools over the past 2 weeks. VL 523,000/ CD4=7. Pneumocytosis Jirovecii positive. RPR nonreactive. Hepatitis panel negative. HIV Genotype with wild type, no resistance associated mutations. Was started on HIV therapy: emtricitabine, tenofovir and dolutegravir (started on 08/07/2018). Now on Bactrim prophylaxis. Azithromycin prophylaxis is not needed since patient is now on ART. 4) Diarrhea: ? possible opportunistic infection. resolved. 5) Acute respiratory failure: not better, from pneumonia. improving s/p trach/PEG placement 08/01. 6) Anemia: s/p transfusion 7) Facial rash: ? seborrheic dermatitis. improving. 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 On Valcyte. f/U CMV PCR improved, will complete 21 days of Valcyte. Additional therapy not needed since patient is now on ARVs and there is no evidence of end organ damage from CMV. Recommendations: - continue valganciclovir 900 mg PO BID D19 of 21 - continue bactrim DS 1 tab q day for PJP prophylaxis - contact isolation for MRSA - continue HIV therapy: emtricitabine, tenofovir and dolutegravir (started on 08/07/2018) - Azithromycin prophylaxis is not needed since patient is now on ART MD [facility] C: [phone] O: [phone] F: [phone] Subjective Date of service: 08/10/18 Principal diagnosis: Acute hypoxemic resp failure; Bilateral pneumonia (PJP); HIV/AIDS Interval history: No fever. Stable. On trach collar. On tube feeds. No pain or distress. Objective - Exam Narrative Exam: Physical Exam: Constitutional: Alert, cooperative. No acute distress. Cachexia + Head, Ears, Nose: Normocephalic, atraumatic. External ears, nose normal Eyes: Conjunctivae/corneas clear. No icterus. No ptosis. Neck: trach + Oral: mucosa moist, no ulcers, no thrush Cardiovascular: S1, S2 normal. Respiratory: clear bilaterally. no wheeze GI: Soft, non-tender; bowel sounds normal. No peritoneal signs. G tube + Musculoskeletal: No pedal edema, no cyanosis. Skin: No rash or abscess Hem/Lymphatic: No palpable cervical or supraclavicular nodes. No lymphangitis Psych: no agitation Neurological: Awake, alert, follows commands - Constitutional Vitals: Vital Signs Temp Pulse Resp BP Pulse Ox 97.9 F 96 H 16 99/56 98 08/10/18 09:01 08/10/18 09:01 08/10/18 09:01 08/10/18 09:01 08/10/18 09:01 Temperature -Last 24 Hours Temperature 97.9 F Temperature 98.2 F Temperature 97.9 F Temperature 97.8 F - Labs CBC & Chem 7: 08/07/18 07:57 08/08/18 04:38
--- NOTE | 2018-08-10 13:05 | Progress Note ---
Assessment and Plan Acute hypoxemic respiratory failure, on mechanical ventilatory support. Bilateral pneumonia, high suspicion for Pneumocystis jiroveci pneumonia. MRSA Pneumonia Human immunodeficiency virus/acquired immunodeficiency syndrome,noncompliant with therapy. Hyponatremia. Severe protein calorie malnutrition. Elevated D-dimer. Tobacco use disorder. - continue to wean supplemental oxygen to keep O2 sats 88-90% acutely - continue Seroquel but tapering slowly - PJP stain positive - continue bronchodilators with pulmonary hygiene per RT - prn ABG's at this point - continue GI & VTE prophylaxis - prn CXR's at this point - continue Anti-infectives and ART per ID rec's - Monitor renal indices closely - Avoid nephrotoxic agents, adjust all medications for CrCL - Tube feedings as tolerated - Accuchecks with glycemic control. Target glucose of 140-180 mg/dL - Maintenance of sleep -wake cycle - continue mobility protocol for pressure ulcer prophylaxis - Influenza and pneumonia vaccination per protocol CODE STATUS: FULL CODE Subjective Date of service: 08/10/18 Principal diagnosis: Acute hypoxemic resp failure; Bilateral pneumonia (PJP); HIV/AIDS Interval history: Patient is seen today for: Acute hypoxemic respiratory failure, on mechanical ventilatory support; Bilateral pneumonia, high suspicion for Pneumocystis jiroveci pneumonia; Human immunodeficiency virus/acquired immunodeficiency syndrome,noncompliant with therapy; Hyponatremia; Severe protein calorie malnutrition. Seen and examined at bedside; 24-hour events reviewed; nursing and respiratory care staff consulted; no adverse overnight events reported to me; Objective Vital Signs - 12hr 08/10/18 08/10/18 08/10/18 04:37 07:03 09:01 Temperature 98.2 F 97.9 F Pulse Rate 98 H 96 H Respiratory 18 16 Rate Blood Pressure 81/46 99/56 Blood Pressure 94/52 [Right] O2 Sat by Pulse 97 98 Oximetry 08/10/18 10:00 Temperature Pulse Rate 90 Respiratory 20 Rate Blood Pressure Blood Pressure [Right] O2 Sat by Pulse 98 Oximetry Constitutional: no acute distress, other (young AAM; normocephalic and atraumatic) Eyes: non-icteric ENT: oropharynx moist, other (ETT 23 cm SHONA) Neck: supple, no lymphadenopathy, no JVD, other (no thyromegaly) Effort: mildly labored Ascultation: Bilateral: diminished breath sounds, rales Percussion: Bilateral: not dull Cardiovascular: regular rate and rhythm, other (S1,S2, no murmurs, gallops or rubs) Gastrointestinal: normoactive bowel sounds, soft, non-tender, non-distended Integumentary: normal Extremities: no cyanosis, no edema, pulses normal, no ischemia or petechiae Neurologic: normal mental status, non-focal exam, pupils equal and round, CN II- XII normal, motor strength normal and Psychiatric: other (sedated) CBC and BMP: 08/07/18 07:57 08/08/18 04:38 ABG, PT/INR, D-dimer: ABG POC ABG pH 7.507 (7.35-7.45) H 08/06/18 22:01 POC ABG pCO2 33.6 (35-45) L 08/06/18 22:01 POC ABG pO2 113 (80-105) H 08/06/18 22:01 POC ABG HCO3 26.6 (22-26 mml/L) 08/06/18 22:01 POC ABG Total CO2 28 (23-27mmol/L) 08/06/18 22:01 POC ABG O2 Sat 99 08/06/18 22:01 PT/INR, D-dimer 1298.70 ng/mlDDU (0-234) H 07/11/18 15:04 Abnormal lab findings: Abnormal Labs 07/11/18 07/11/18 07/11/18 14:06 14:06 15:04 WBC RBC 3.30 L Hgb 9.6 L Hct 28.7 L MCHC RDW Plt Count Lymph % (Auto) Lymph # Seg Neutrophils % Abs Lymphs (Manual) D-Dimer 1298.70 H POC ABG pH POC ABG pCO2 POC ABG pO2 Sodium 132 L Potassium Chloride Carbon Dioxide BUN Creatinine 0.6 L Glucose 103 H POC Glucose Calcium 7.3 L AST ALT Lactate Dehydrogenase C-Reactive Protein Total Protein Albumin 2.1 L Triglycerides Lymph Enumerat CD4/CD8 % CD3 Cells Absolute CD3 Count % CD4 Cells Absolute CD4 Count % CD8 Cells Absolute CD8 Count % CD19 Cells Absolute CD19 Count HIV-1 RNA PCR copies/ml HIV-1 RNA (PCR) log HIV-1 Genotyping Miscellaneous Test Crossmatch 05/01/19 05/01/19 05/02/19 17:36 22:15 00:25 WBC RBC Hgb Hct MCHC RDW Plt Count Lymph % (Auto) Lymph # Seg Neutrophils % Abs Lymphs (Manual) D-Dimer POC ABG pH 7.289 L POC ABG pCO2 POC ABG pO2 66 L Sodium Potassium Chloride Carbon Dioxide BUN Creatinine Glucose POC Glucose Calcium AST ALT Lactate Dehydrogenase 591 H C-Reactive Protein Total Protein Albumin Triglycerides Lymph Enumerat CD4/CD8 % CD3 Cells Absolute CD3 Count % CD4 Cells Absolute CD4 Count % CD8 Cells Absolute CD8 Count % CD19 Cells Absolute CD19 Count HIV-1 RNA PCR copies/ml HIV-1 RNA (PCR) log HIV-1 Genotyping Miscellaneous Test see below H Crossmatch 07/12/18 07/12/18 07/12/18 00:41 05:37 19:29 WBC RBC Hgb Hct MCHC RDW Plt Count Lymph % (Auto) Lymph # Seg Neutrophils % Abs Lymphs (Manual) D-Dimer POC ABG pH 7.302 L 7.275 L POC ABG pCO2 47.1 H POC ABG pO2 Sodium Potassium Chloride Carbon Dioxide BUN Creatinine Glucose POC Glucose Calcium AST ALT Lactate Dehydrogenase 731 H C-Reactive Protein Total Protein Albumin Triglycerides Lymph Enumerat CD4/CD8 % CD3 Cells Absolute CD3 Count % CD4 Cells Absolute CD4 Count % CD8 Cells Absolute CD8 Count % CD19 Cells Absolute CD19 Count HIV-1 RNA PCR copies/ml HIV-1 RNA (PCR) log HIV-1 Genotyping Miscellaneous Test Crossmatch 07/12/18 07/12/18 07/13/18 19:29 19:29 04:03 WBC RBC Hgb Hct MCHC RDW Plt Count Lymph % (Auto) Lymph # Seg Neutrophils % Abs Lymphs (Manual) 220 L D-Dimer POC ABG pH 7.254 L POC ABG pCO2 49.2 H POC ABG pO2 Sodium Potassium Chloride Carbon Dioxide BUN Creatinine Glucose POC Glucose Calcium AST ALT Lactate Dehydrogenase C-Reactive Protein Total Protein Albumin Triglycerides Lymph Enumerat CD4/CD8 0.04 L % CD3 Cells 88 H Absolute CD3 Count 194 L % CD4 Cells 3 L Absolute CD4 Count 7 L % CD8 Cells 75 H Absolute CD8 Count 177 L % CD19 Cells 4 L Absolute CD19 Count 9 L HIV-1 RNA PCR copies/ml 796486 H HIV-1 RNA (PCR) log 5.72 H HIV-1 Genotyping Miscellaneous Test Crossmatch 07/13/18 07/13/18 07/13/18 05:46 12:23 18:31 WBC RBC Hgb Hct MCHC RDW Plt Count Lymph % (Auto) Lymph # Seg Neutrophils % Abs Lymphs (Manual) D-Dimer POC ABG pH POC ABG pCO2 POC ABG pO2 Sodium Potassium Chloride Carbon Dioxide BUN Creatinine Glucose POC Glucose 68 L 106 H 112 H Calcium AST ALT Lactate Dehydrogenase C-Reactive Protein Total Protein Albumin Triglycerides Lymph Enumerat CD4/CD8 % CD3 Cells Absolute CD3 Count % CD4 Cells Absolute CD4 Count % CD8 Cells Absolute CD8 Count % CD19 Cells Absolute CD19 Count HIV-1 RNA PCR copies/ml HIV-1 RNA (PCR) log HIV-1 Genotyping Miscellaneous Test Crossmatch 07/14/18 07/14/18 07/14/18 04:19 05:36 05:36 WBC RBC 2.99 L Hgb 8.8 L Hct 25.7 L MCHC RDW 15.5 H Plt Count Lymph % (Auto) Lymph # Seg Neutrophils % Abs Lymphs (Manual) D-Dimer POC ABG pH 7.337 L POC ABG pCO2 POC ABG pO2 Sodium 135 L Potassium Chloride Carbon Dioxide 21 L BUN Creatinine 0.7 L Glucose 123 H POC Glucose Calcium 8.2 L AST ALT Lactate Dehydrogenase C-Reactive Protein Total Protein Albumin Triglycerides Lymph Enumerat CD4/CD8 % CD3 Cells Absolute CD3 Count % CD4 Cells Absolute CD4 Count % CD8 Cells Absolute CD8 Count % CD19 Cells Absolute CD19 Count HIV-1 RNA PCR copies/ml HIV-1 RNA (PCR) log HIV-1 Genotyping Miscellaneous Test Crossmatch 07/14/18 07/14/18 07/14/18 12:14 14:33 17:18 WBC RBC Hgb Hct MCHC RDW Plt Count Lymph % (Auto) Lymph # Seg Neutrophils % Abs Lymphs (Manual) D-Dimer POC ABG pH 7.325 L POC ABG pCO2 POC ABG pO2 75 L Sodium Potassium Chloride Carbon Dioxide BUN Creatinine Glucose POC Glucose 174 H 114 H Calcium AST ALT Lactate Dehydrogenase C-Reactive Protein Total Protein Albumin Triglycerides Lymph Enumerat CD4/CD8 % CD3 Cells Absolute CD3 Count % CD4 Cells Absolute CD4 Count % CD8 Cells Absolute CD8 Count % CD19 Cells Absolute CD19 Count HIV-1 RNA PCR copies/ml HIV-1 RNA (PCR) log HIV-1 Genotyping Miscellaneous Test Crossmatch 07/15/18 07/15/18 07/15/18 00:17 12:29 12:29 WBC RBC 2.64 L Hgb 7.5 L Hct 22.9 L MCHC RDW 15.4 H Plt Count Lymph % (Auto) 7.0 L Lymph # 0.4 L Seg Neutrophils % 89.6 H Abs Lymphs (Manual) D-Dimer POC ABG pH POC ABG pCO2 POC ABG pO2 Sodium Potassium Chloride Carbon Dioxide BUN Creatinine 0.6 L Glucose 124 H POC Glucose 113 H Calcium 7.3 L AST ALT Lactate Dehydrogenase C-Reactive Protein Total Protein Albumin Triglycerides Lymph Enumerat CD4/CD8 % CD3 Cells Absolute CD3 Count % CD4 Cells Absolute CD4 Count % CD8 Cells Absolute CD8 Count % CD19 Cells Absolute CD19 Count HIV-1 RNA PCR copies/ml HIV-1 RNA (PCR) log HIV-1 Genotyping Miscellaneous Test Crossmatch 07/15/18 07/16/18 07/16/18 14:09 04:46 07:21 WBC RBC Hgb Hct MCHC RDW Plt Count Lymph % (Auto) Lymph # Seg Neutrophils % Abs Lymphs (Manual) D-Dimer POC ABG pH 7.282 L POC ABG pCO2 52.6 H POC ABG pO2 63 L Sodium Potassium Chloride Carbon Dioxide BUN Creatinine Glucose POC Glucose Calcium AST ALT Lactate Dehydrogenase C-Reactive Protein 2.70 H Total Protein Albumin Triglycerides Lymph Enumerat CD4/CD8 % CD3 Cells Absolute CD3 Count % CD4 Cells Absolute CD4 Count % CD8 Cells Absolute CD8 Count % CD19 Cells Absolute CD19 Count HIV-1 RNA PCR copies/ml HIV-1 RNA (PCR) log HIV-1 Genotyping Miscellaneous Test Flexitest 1 H Crossmatch 07/16/18 07/16/18 07/16/18 07:21 07:21 16:16 WBC RBC 2.48 L Hgb 7.2 L Hct 21.5 L MCHC RDW 15.7 H Plt Count Lymph % (Auto) Lymph # Seg Neutrophils % Abs Lymphs (Manual) D-Dimer POC ABG pH 7.251 L POC ABG pCO2 62.2 H POC ABG pO2 Sodium 136 L Potassium Chloride Carbon Dioxide BUN Creatinine 0.6 L Glucose 118 H POC Glucose Calcium 7.5 L AST ALT Lactate Dehydrogenase C-Reactive Protein Total Protein Albumin Triglycerides Lymph Enumerat CD4/CD8 % CD3 Cells Absolute CD3 Count % CD4 Cells Absolute CD4 Count % CD8 Cells Absolute CD8 Count % CD19 Cells Absolute CD19 Count HIV-1 RNA PCR copies/ml HIV-1 RNA (PCR) log HIV-1 Genotyping Miscellaneous Test Crossmatch 07/17/18 07/18/18 07/18/18 04:01 01:10 03:10 WBC RBC 2.20 L Hgb 6.5 L Hct 19.2 L* MCHC RDW 16.0 H Plt Count Lymph % (Auto) 7.2 L Lymph # 0.5 L Seg Neutrophils % 89.9 H Abs Lymphs (Manual) D-Dimer POC ABG pH 7.245 L POC ABG pCO2 63.8 H POC ABG pO2 75 L Sodium Potassium Chloride Carbon Dioxide BUN Creatinine Glucose POC Glucose Calcium AST ALT Lactate Dehydrogenase C-Reactive Protein Total Protein Albumin Triglycerides Lymph Enumerat CD4/CD8 % CD3 Cells Absolute CD3 Count % CD4 Cells Absolute CD4 Count % CD8 Cells Absolute CD8 Count % CD19 Cells Absolute CD19 Count HIV-1 RNA PCR copies/ml HIV-1 RNA (PCR) log HIV-1 Genotyping Miscellaneous Test Crossmatch See Detail 07/18/18 07/18/18 07/18/18 04:54 05:02 12:59 WBC RBC Hgb Hct MCHC RDW Plt Count Lymph % (Auto) Lymph # Seg Neutrophils % Abs Lymphs (Manual) D-Dimer POC ABG pH 7.615 H POC ABG pCO2 32.6 L 48.8 H POC ABG pO2 79 L 118 H Sodium Potassium Chloride Carbon Dioxide BUN Creatinine Glucose POC Glucose 164 H Calcium AST ALT Lactate Dehydrogenase C-Reactive Protein Total Protein Albumin Triglycerides Lymph Enumerat CD4/CD8 % CD3 Cells Absolute CD3 Count % CD4 Cells Absolute CD4 Count % CD8 Cells Absolute CD8 Count % CD19 Cells Absolute CD19 Count HIV-1 RNA PCR copies/ml HIV-1 RNA (PCR) log HIV-1 Genotyping Miscellaneous Test Crossmatch 07/18/18 07/18/18 07/19/18 18:25 20:39 03:53 WBC RBC Hgb Hct MCHC RDW Plt Count Lymph % (Auto) Lymph # Seg Neutrophils % Abs Lymphs (Manual) D-Dimer POC ABG pH 7.339 L POC ABG pCO2 59.9 H 65.0 H POC ABG pO2 69 L Sodium Potassium Chloride Carbon Dioxide BUN Creatinine Glucose POC Glucose 155 H Calcium AST ALT Lactate Dehydrogenase C-Reactive Protein Total Protein Albumin Triglycerides Lymph Enumerat CD4/CD8 % CD3 Cells Absolute CD3 Count % CD4 Cells Absolute CD4 Count % CD8 Cells Absolute CD8 Count % CD19 Cells Absolute CD19 Count HIV-1 RNA PCR copies/ml HIV-1 RNA (PCR) log HIV-1 Genotyping Miscellaneous Test Crossmatch 07/19/18 07/19/18 07/19/18 08:10 08:10 10:52 WBC RBC 2.51 L Hgb 7.4 L Hct 22.0 L MCHC RDW 15.5 H Plt Count Lymph % (Auto) Lymph # Seg Neutrophils % Abs Lymphs (Manual) D-Dimer POC ABG pH POC ABG pCO2 POC ABG pO2 Sodium 130 L Potassium Chloride 89.0 L Carbon Dioxide 33 H BUN Creatinine 0.4 L Glucose 150 H POC Glucose 173 H Calcium 7.5 L AST ALT Lactate Dehydrogenase C-Reactive Protein Total Protein Albumin Triglycerides Lymph Enumerat CD4/CD8 % CD3 Cells Absolute CD3 Count % CD4 Cells Absolute CD4 Count % CD8 Cells Absolute CD8 Count % CD19 Cells Absolute CD19 Count HIV-1 RNA PCR copies/ml HIV-1 RNA (PCR) log HIV-1 Genotyping Miscellaneous Test Crossmatch 07/19/18 07/19/18 07/20/18 17:06 23:47 04:37 WBC RBC Hgb Hct MCHC RDW Plt Count Lymph % (Auto) Lymph # Seg Neutrophils % Abs Lymphs (Manual) D-Dimer POC ABG pH POC ABG pCO2 58.5 H POC ABG pO2 67 L Sodium Potassium Chloride Carbon Dioxide BUN Creatinine Glucose POC Glucose 117 H 114 H Calcium AST ALT Lactate Dehydrogenase C-Reactive Protein Total Protein Albumin Triglycerides Lymph Enumerat CD4/CD8 % CD3 Cells Absolute CD3 Count % CD4 Cells Absolute CD4 Count % CD8 Cells Absolute CD8 Count % CD19 Cells Absolute CD19 Count HIV-1 RNA PCR copies/ml HIV-1 RNA (PCR) log HIV-1 Genotyping Miscellaneous Test Crossmatch 07/20/18 07/20/18 07/21/18 06:20 06:20 04:18 WBC RBC 2.69 L Hgb 7.8 L Hct 23.6 L MCHC RDW 15.5 H Plt Count Lymph % (Auto) Lymph # Seg Neutrophils % Abs Lymphs (Manual) D-Dimer POC ABG pH 7.456 H POC ABG pCO2 60.4 H POC ABG pO2 64 L Sodium 134 L Potassium Chloride 89.2 L Carbon Dioxide 38 H BUN Creatinine 0.7 L D Glucose 120 H POC Glucose Calcium 7.6 L AST ALT Lactate Dehydrogenase C-Reactive Protein Total Protein Albumin Triglycerides Lymph Enumerat CD4/CD8 % CD3 Cells Absolute CD3 Count % CD4 Cells Absolute CD4 Count % CD8 Cells Absolute CD8 Count % CD19 Cells Absolute CD19 Count HIV-1 RNA PCR copies/ml HIV-1 RNA (PCR) log HIV-1 Genotyping Miscellaneous Test Crossmatch 07/21/18 07/21/18 07/22/18 04:35 04:35 04:16 WBC RBC 2.62 L 2.37 L Hgb 7.7 L 7.0 L Hct 23.1 L 21.1 L MCHC RDW 15.4 H Plt Count Lymph % (Auto) Lymph # Seg Neutrophils % Abs Lymphs (Manual) D-Dimer POC ABG pH POC ABG pCO2 POC ABG pO2 Sodium 129 L Potassium 5.3 H Chloride 85.3 L Carbon Dioxide 38 H BUN Creatinine 0.4 L Glucose 108 H POC Glucose Calcium 8.0 L AST ALT Lactate Dehydrogenase C-Reactive Protein Total Protein Albumin Triglycerides Lymph Enumerat CD4/CD8 % CD3 Cells Absolute CD3 Count % CD4 Cells Absolute CD4 Count % CD8 Cells Absolute CD8 Count % CD19 Cells Absolute CD19 Count HIV-1 RNA PCR copies/ml HIV-1 RNA (PCR) log HIV-1 Genotyping Miscellaneous Test Crossmatch 07/22/18 07/23/18 07/23/18 04:16 03:25 12:45 WBC RBC Hgb Hct MCHC RDW Plt Count Lymph % (Auto) Lymph # Seg Neutrophils % Abs Lymphs (Manual) D-Dimer POC ABG pH POC ABG pCO2 69.4 H POC ABG pO2 Sodium 132 L 125 L D Potassium 5.4 H 5.3 H Chloride 87.4 L 80.3 L Carbon Dioxide 38 H 38 H BUN Creatinine 0.4 L 0.3 L Glucose 117 H 124 H POC Glucose Calcium 7.5 L 7.4 L AST ALT Lactate Dehydrogenase C-Reactive Protein Total Protein Albumin Triglycerides Lymph Enumerat CD4/CD8 % CD3 Cells Absolute CD3 Count % CD4 Cells Absolute CD4 Count % CD8 Cells Absolute CD8 Count % CD19 Cells Absolute CD19 Count HIV-1 RNA PCR copies/ml HIV-1 RNA (PCR) log HIV-1 Genotyping Miscellaneous Test Crossmatch 07/23/18 07/24/18 07/24/18 23:52 04:30 04:30 WBC RBC 2.12 L Hgb 6.3 L Hct 18.9 L* MCHC RDW Plt Count Lymph % (Auto) Lymph # Seg Neutrophils % Abs Lymphs (Manual) D-Dimer POC ABG pH POC ABG pCO2 POC ABG pO2 Sodium 127 L Potassium 5.2 H Chloride 83.9 L Carbon Dioxide 39 H BUN Creatinine 0.3 L Glucose POC Glucose 118 H Calcium 7.5 L AST ALT Lactate Dehydrogenase C-Reactive Protein Total Protein Albumin Triglycerides Lymph Enumerat CD4/CD8 % CD3 Cells Absolute CD3 Count % CD4 Cells Absolute CD4 Count % CD8 Cells Absolute CD8 Count % CD19 Cells Absolute CD19 Count HIV-1 RNA PCR copies/ml HIV-1 RNA (PCR) log HIV-1 Genotyping Miscellaneous Test Crossmatch 07/24/18 07/24/18 07/24/18 05:11 05:30 07:50 WBC RBC Hgb Hct MCHC RDW Plt Count Lymph % (Auto) Lymph # Seg Neutrophils % Abs Lymphs (Manual) D-Dimer POC ABG pH 7.462 H POC ABG pCO2 58.7 H POC ABG pO2 79 L Sodium Potassium Chloride Carbon Dioxide BUN Creatinine Glucose POC Glucose 145 H Calcium AST ALT Lactate Dehydrogenase C-Reactive Protein Total Protein Albumin Triglycerides Lymph Enumerat CD4/CD8 % CD3 Cells Absolute CD3 Count % CD4 Cells Absolute CD4 Count % CD8 Cells Absolute CD8 Count % CD19 Cells Absolute CD19 Count HIV-1 RNA PCR copies/ml HIV-1 RNA (PCR) log HIV-1 Genotyping Miscellaneous Test Crossmatch See Detail 07/25/18 07/25/18 07/25/18 09:30 09:30 17:05 WBC RBC 2.99 L Hgb 9.1 L Hct 27.0 L D MCHC RDW Plt Count Lymph % (Auto) Lymph # Seg Neutrophils % Abs Lymphs (Manual) D-Dimer POC ABG pH POC ABG pCO2 POC ABG pO2 Sodium 131 L Potassium 5.1 H Chloride 84.4 L Carbon Dioxide 39 H BUN Creatinine 0.3 L Glucose 133 H POC Glucose Calcium 8.0 L AST ALT Lactate Dehydrogenase C-Reactive Protein Total Protein Albumin Triglycerides Lymph Enumerat CD4/CD8 % CD3 Cells Absolute CD3 Count % CD4 Cells Absolute CD4 Count % CD8 Cells Absolute CD8 Count % CD19 Cells Absolute CD19 Count HIV-1 RNA PCR copies/ml HIV-1 RNA (PCR) log HIV-1 Genotyping Detected H Miscellaneous Test Crossmatch 07/26/18 07/26/18 07/26/18 00:18 04:07 05:50 WBC RBC 3.01 L Hgb 9.4 L Hct 27.2 L MCHC 35 H RDW Plt Count Lymph % (Auto) 10.4 L Lymph # 0.9 L Seg Neutrophils % 84.2 H Abs Lymphs (Manual) D-Dimer POC ABG pH 7.456 H POC ABG pCO2 61.4 H POC ABG pO2 68 L Sodium 135 L Potassium 5.5 H Chloride 88.4 L Carbon Dioxide 38 H BUN Creatinine 0.3 L Glucose POC Glucose Calcium AST ALT Lactate Dehydrogenase C-Reactive Protein Total Protein Albumin Triglycerides Lymph Enumerat CD4/CD8 % CD3 Cells Absolute CD3 Count % CD4 Cells Absolute CD4 Count % CD8 Cells Absolute CD8 Count % CD19 Cells Absolute CD19 Count HIV-1 RNA PCR copies/ml HIV-1 RNA (PCR) log HIV-1 Genotyping Miscellaneous Test Crossmatch 07/26/18 07/26/18 07/27/18 05:50 14:56 14:26 WBC RBC Hgb Hct MCHC RDW Plt Count Lymph % (Auto) Lymph # Seg Neutrophils % Abs Lymphs (Manual) D-Dimer POC ABG pH 7.472 H POC ABG pCO2 66.0 H 57.4 H POC ABG pO2 56 L 59 L Sodium 131 L Potassium 5.1 H Chloride 84.5 L Carbon Dioxide 39 H BUN Creatinine 0.3 L Glucose POC Glucose Calcium AST 78 H ALT 71 H Lactate Dehydrogenase C-Reactive Protein Total Protein 6.0 L Albumin 2.5 L Triglycerides Lymph Enumerat CD4/CD8 % CD3 Cells Absolute CD3 Count % CD4 Cells Absolute CD4 Count % CD8 Cells Absolute CD8 Count % CD19 Cells Absolute CD19 Count HIV-1 RNA PCR copies/ml HIV-1 RNA (PCR) log HIV-1 Genotyping Miscellaneous Test Crossmatch 07/28/18 07/28/18 07/28/18 05:20 05:20 05:20 WBC RBC 3.21 L Hgb 10.0 L Hct 29.9 L MCHC RDW 15.4 H Plt Count 451 H Lymph % (Auto) Lymph # Seg Neutrophils % 81.6 H Abs Lymphs (Manual) D-Dimer POC ABG pH POC ABG pCO2 POC ABG pO2 Sodium 136 L Potassium Chloride 89.9 L Carbon Dioxide 38 H BUN Creatinine 0.4 L Glucose POC Glucose Calcium 8.1 L AST 104 H ALT 113 H Lactate Dehydrogenase C-Reactive Protein Total Protein 6.2 L Albumin 2.5 L Triglycerides 209 H Lymph Enumerat CD4/CD8 % CD3 Cells Absolute CD3 Count % CD4 Cells Absolute CD4 Count % CD8 Cells Absolute CD8 Count % CD19 Cells Absolute CD19 Count HIV-1 RNA PCR copies/ml HIV-1 RNA (PCR) log HIV-1 Genotyping Miscellaneous Test Crossmatch 07/28/18 07/28/18 07/29/18 06:08 17:22 04:28 WBC RBC Hgb Hct MCHC RDW Plt Count Lymph % (Auto) Lymph # Seg Neutrophils % Abs Lymphs (Manual) D-Dimer POC ABG pH 7.328 L POC ABG pCO2 65.7 H 55.1 H POC ABG pO2 70 L 113 H 76 L Sodium Potassium Chloride Carbon Dioxide BUN Creatinine Glucose POC Glucose Calcium AST ALT Lactate Dehydrogenase C-Reactive Protein Total Protein Albumin Triglycerides Lymph Enumerat CD4/CD8 % CD3 Cells Absolute CD3 Count % CD4 Cells Absolute CD4 Count % CD8 Cells Absolute CD8 Count % CD19 Cells Absolute CD19 Count HIV-1 RNA PCR copies/ml HIV-1 RNA (PCR) log HIV-1 Genotyping Miscellaneous Test Crossmatch 08/02/18 08/02/18 08/03/18 06:30 06:30 06:30 WBC RBC 2.96 L 2.78 L Hgb 9.4 L 9.0 L Hct 27.6 L 26.3 L MCHC RDW 18.4 H 19.6 H Plt Count Lymph % (Auto) 11.1 L Lymph # 0.6 L 0.7 L Seg Neutrophils % 84.0 H 79.0 H Abs Lymphs (Manual) D-Dimer POC ABG pH POC ABG pCO2 POC ABG pO2 Sodium 133 L Potassium Chloride 92.7 L Carbon Dioxide BUN 22 H Creatinine 0.5 L Glucose POC Glucose Calcium 8.1 L AST ALT Lactate Dehydrogenase C-Reactive Protein Total Protein Albumin Triglycerides Lymph Enumerat CD4/CD8 % CD3 Cells Absolute CD3 Count % CD4 Cells Absolute CD4 Count % CD8 Cells Absolute CD8 Count % CD19 Cells Absolute CD19 Count HIV-1 RNA PCR copies/ml HIV-1 RNA (PCR) log HIV-1 Genotyping Miscellaneous Test Crossmatch 08/03/18 08/04/18 08/05/18 06:30 17:13 08:03 WBC RBC 2.77 L Hgb 8.8 L Hct 25.8 L MCHC RDW 20.4 H Plt Count Lymph % (Auto) Lymph # 0.9 L Seg Neutrophils % 76.6 H Abs Lymphs (Manual) D-Dimer POC ABG pH POC ABG pCO2 POC ABG pO2 Sodium 131 L Potassium Chloride 92.0 L Carbon Dioxide BUN Creatinine 0.3 L Glucose POC Glucose 120 H Calcium 8.0 L AST ALT Lactate Dehydrogenase C-Reactive Protein Total Protein 6.0 L Albumin 2.4 L Triglycerides Lymph Enumerat CD4/CD8 % CD3 Cells Absolute CD3 Count % CD4 Cells Absolute CD4 Count % CD8 Cells Absolute CD8 Count % CD19 Cells Absolute CD19 Count HIV-1 RNA PCR copies/ml HIV-1 RNA (PCR) log HIV-1 Genotyping Miscellaneous Test Crossmatch 08/05/18 08/06/18 08/06/18 08:03 07:38 22:01 WBC RBC Hgb Hct MCHC RDW Plt Count Lymph % (Auto) Lymph # Seg Neutrophils % Abs Lymphs (Manual) D-Dimer POC ABG pH 7.507 H POC ABG pCO2 33.6 L POC ABG pO2 113 H Sodium 132 L 131 L Potassium 3.5 L Chloride 93.0 L 92.4 L Carbon Dioxide BUN Creatinine 0.3 L 0.4 L Glucose POC Glucose Calcium 8.0 L 8.1 L AST ALT Lactate Dehydrogenase C-Reactive Protein Total Protein Albumin Triglycerides Lymph Enumerat CD4/CD8 % CD3 Cells Absolute CD3 Count % CD4 Cells Absolute CD4 Count % CD8 Cells Absolute CD8 Count % CD19 Cells Absolute CD19 Count HIV-1 RNA PCR copies/ml HIV-1 RNA (PCR) log HIV-1 Genotyping Miscellaneous Test Crossmatch 08/07/18 08/07/18 08/08/18 07:57 07:57 04:38 WBC 4.1 L RBC 3.00 L Hgb 9.4 L Hct 27.9 L MCHC RDW 19.2 H Plt Count Lymph % (Auto) Lymph # Seg Neutrophils % Abs Lymphs (Manual) D-Dimer POC ABG pH POC ABG pCO2 POC ABG pO2 Sodium 133 L Potassium 3.2 L Chloride 95.9 L Carbon Dioxide BUN Creatinine 0.4 L 0.4 L Glucose 104 H POC Glucose Calcium AST ALT Lactate Dehydrogenase C-Reactive Protein Total Protein Albumin 2.6 L Triglycerides Lymph Enumerat CD4/CD8 % CD3 Cells Absolute CD3 Count % CD4 Cells Absolute CD4 Count % CD8 Cells Absolute CD8 Count % CD19 Cells Absolute CD19 Count HIV-1 RNA PCR copies/ml HIV-1 RNA (PCR) log HIV-1 Genotyping Miscellaneous Test Crossmatch Allied health notes reviewed: nursing
--- NOTE | 2018-08-10 16:11 | Progress Note ---
Assessment and Plan /Acute hypoxic respiratory failure vent dependent > 96 hrs s/p Trach and PEG placement, Wean off as As tolerated from tach /-s/p PEG : PEG feeds per protocol - ordered for repeat speech eval - pending /Hypokalemia: Replaced with Kcl and monitor levels /-Sepsis present on admission - due to bilateral pneumonia /MRSA tracheal aspirate + PCP s/p ABX per ID, Isolation precautions, cont MRSA isolation /-Pneumonia (pneumocystis jirovecii pneumonia positive stain): also MRSA Completed linezolid x 10 days until 07/23. S/p 21 days bactrim IV until 07/31/2018. 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 - continue valganciclovir 900 mg PO BID D1 /-History of HIV-AIDS; noncompliance with medications, ID following per ID: - continue bactrim DS 1 tab q day for PJP prophylaxis - continue HIV therapy: emtricitabine, tenofovir and dolutegravir (started on 08/07/2018) - Azithromycin prophylaxis is not needed since patient is now on ART /-Diarrhea: Improved /-Hyponatremia:sodium levels improved /-Severe Malnutrition : [employer] following /-Acute blood loss anemia; received 2 units PRBC, hb now stable /- Elevated d dimers: CTA chest Neg PE /-Discharge planning. Case management/social issues Monitor closely and adjust the management as needed Disposition; discharge pending on placement Brief History Patient is a 37 yo man with a history of HIV and tobacco dependency who presents from [facility] to [facility] ED with sob and cough. Pt admitted to IMCU and initiated on Pneumonia protocol. Chest CT showed bilateral patchy and somewhat confluent alveolar infiltrates and interstitial infiltrates. Patient required emergent intubation , unable to wean , vent dependent , s/p trach and PEG and very resistant hypoxia. Clinically stable except for hypoxia and trach dependent. Completed treatment for PNA. Now on Vancyclovir for CMV viremia and HIV treatment. weaning protocol for trach and PEG. Hospitalist Physical General appearance: Present: no acute distress, cachectic, disheveled, other (tracheostomy ) - EENT Eyes: Present: PERRL, EOM intact - Neck Neck: Present: supple, normal ROM - Respiratory Respiratory effort: normal Respiratory: bilateral: diminished, rhonchi, negative: rales, wheezing - Cardiovascular Rhythm: regular Heart Sounds: Present: S1 & S2 - Extremities Extremities: no ischemia, No edema - Abdominal General gastrointestinal: soft, non-tender, non-distended, normal bowel sounds, PEG on place - Integumentary Integumentary: Present: clear, warm - Psychiatric Psychiatric: appropriate mood/affect, cooperative - Neurologic Neurologic: CNII-XII intact, moves all extremities Subjective Date of service: 08/10/18 Principal diagnosis: Acute hypoxemic resp failure; Bilateral pneumonia (PJP); HIV/AIDS Interval history: Patient seen and examined. Medical records and medication list reviewed. No acute event overnight noted by the RN. Patient denies any chest pain, breathing comfortably on trach. Patient is tolerating tube feeding diet. Discussed plan of care at bedside with patient. discharge pending on placement - patient has no insurance Objective - Constitutional Vitals: Vital Signs - 12hr 08/10/18 08/10/18 08/10/18 04:37 07:03 09:01 Temperature 98.2 F 97.9 F Pulse Rate 98 H 96 H Respiratory 18 16 Rate Blood Pressure 81/46 99/56 Blood Pressure 94/52 [Right] O2 Sat by Pulse 97 98 Oximetry 08/10/18 08/10/18 10:00 13:23 Temperature 97.9 F Pulse Rate 90 93 H Respiratory 20 18 Rate Blood Pressure 86/49 Blood Pressure [Right] O2 Sat by Pulse 98 97 Oximetry - Labs CBC & Chem 7: 08/07/18 07:57 08/08/18 04:38
--- NOTE | 2018-08-10 16:58 | Progress Note ---
Assessment and Plan Acute hypoxemic respiratory failure, on mechanical ventilatory support. Bilateral pneumonia, high suspicion for Pneumocystis jiroveci pneumonia. MRSA Pneumonia Human immunodeficiency virus/acquired immunodeficiency syndrome,noncompliant with therapy. Hyponatremia. Severe protein calorie malnutrition. Elevated D-dimer. Tobacco use disorder. - begin daytime capping trials as tolerated - tentative decanulation soon - continue to wean supplemental oxygen to keep O2 sats 88-90% acutely - continue Seroquel but tapering slowly - continue bronchodilators with pulmonary hygiene per RT - prn ABG's at this point - continue GI & VTE prophylaxis - prn CXR's at this point - continue Anti-infectives and ART per ID rec's - Avoid nephrotoxic agents, adjust all medications for CrCL - Tube feedings as tolerated - Accuchecks with glycemic control. Target glucose of 140-180 mg/dL - Maintenance of sleep -wake cycle - continue mobility protocol for pressure ulcer prophylaxis - Influenza and pneumonia vaccination per protocol CODE STATUS: FULL CODE Subjective Date of service: 08/10/18 Principal diagnosis: Acute hypoxemic resp failure; Bilateral pneumonia (PJP); HIV/AIDS Interval history: Patient is seen today for: Acute hypoxemic respiratory failure, on mechanical ventilatory support; Bilateral pneumonia, high suspicion for Pneumocystis jiroveci pneumonia; Human immunodeficiency virus/acquired immunodeficiency syndrome,noncompliant with therapy; Hyponatremia; Severe protein calorie malnutrition. Seen and examined at bedside; 24-hour events reviewed; nursing and respiratory care staff consulted; no adverse overnight events reported to me; resting p eacefully in bed; tolerating PMV trials well so far; denies acute chest pains; No N/V/F/C Objective Vital Signs - 12hr 08/10/18 08/10/18 08/10/18 07:03 09:01 10:00 Temperature 97.9 F Pulse Rate 96 H 90 Respiratory 16 20 Rate Blood Pressure 99/56 Blood Pressure 94/52 [Right] O2 Sat by Pulse 98 98 Oximetry 08/10/18 13:23 Temperature 97.9 F Pulse Rate 93 H Respiratory 18 Rate Blood Pressure 86/49 Blood Pressure [Right] O2 Sat by Pulse 97 Oximetry Constitutional: no acute distress, other (young AAM; normocephalic and atraumatic) Eyes: non-icteric ENT: oropharynx moist, other (mallampati 2) Neck: supple, no lymphadenopathy, no JVD, other (+ midline tracheostomy tube in place) Effort: mildly labored Ascultation: Bilateral: diminished breath sounds, rhonchi (scant) Percussion: Bilateral: not dull Cardiovascular: regular rate and rhythm, other (S1,S2, no murmurs, gallops or rubs) Gastrointestinal: normoactive bowel sounds, soft, non-tender, non-distended Integumentary: normal Extremities: no cyanosis, no edema, pulses normal, no ischemia or petechiae Neurologic: normal mental status, non-focal exam, pupils equal and round, CN II- XII normal, motor strength normal and Psychiatric: mood appropriate, affect normal CBC and BMP: 08/11/18 06:55 08/11/18 06:55 ABG, PT/INR, D-dimer: ABG POC ABG pH 7.507 (7.35-7.45) H 08/06/18 22:01 POC ABG pCO2 33.6 (35-45) L 08/06/18 22:01 POC ABG pO2 113 (80-105) H 08/06/18 22:01 POC ABG HCO3 26.6 (22-26 mml/L) 08/06/18 22:01 POC ABG Total CO2 28 (23-27mmol/L) 08/06/18 22:01 POC ABG O2 Sat 99 08/06/18 22:01 PT/INR, D-dimer 1298.70 ng/mlDDU (0-234) H 07/11/18 15:04 Abnormal lab findings: Abnormal Labs 07/11/18 07/11/18 07/11/18 14:06 14:06 15:04 WBC RBC 3.30 L Hgb 9.6 L Hct 28.7 L MCHC RDW Plt Count Lymph % (Auto) Lymph # Seg Neutrophils % Abs Lymphs (Manual) D-Dimer 1298.70 H POC ABG pH POC ABG pCO2 POC ABG pO2 Sodium 132 L Potassium Chloride Carbon Dioxide BUN Creatinine 0.6 L Glucose 103 H POC Glucose Calcium 7.3 L AST ALT Lactate Dehydrogenase C-Reactive Protein Total Protein Albumin 2.1 L Triglycerides Lymph Enumerat CD4/CD8 % CD3 Cells Absolute CD3 Count % CD4 Cells Absolute CD4 Count % CD8 Cells Absolute CD8 Count % CD19 Cells Absolute CD19 Count HIV-1 RNA PCR copies/ml HIV-1 RNA (PCR) log HIV-1 Genotyping Miscellaneous Test Crossmatch 07/11/18 07/11/18 07/12/18 17:36 22:15 00:25 WBC RBC Hgb Hct MCHC RDW Plt Count Lymph % (Auto) Lymph # Seg Neutrophils % Abs Lymphs (Manual) D-Dimer POC ABG pH 7.289 L POC ABG pCO2 POC ABG pO2 66 L Sodium Potassium Chloride Carbon Dioxide BUN Creatinine Glucose POC Glucose Calcium AST ALT Lactate Dehydrogenase 591 H C-Reactive Protein Total Protein Albumin Triglycerides Lymph Enumerat CD4/CD8 % CD3 Cells Absolute CD3 Count % CD4 Cells Absolute CD4 Count % CD8 Cells Absolute CD8 Count % CD19 Cells Absolute CD19 Count HIV-1 RNA PCR copies/ml HIV-1 RNA (PCR) log HIV-1 Genotyping Miscellaneous Test see below H Crossmatch 07/12/18 07/12/18 07/12/18 00:41 05:37 19:29 WBC RBC Hgb Hct MCHC RDW Plt Count Lymph % (Auto) Lymph # Seg Neutrophils % Abs Lymphs (Manual) D-Dimer POC ABG pH 7.302 L 7.275 L POC ABG pCO2 47.1 H POC ABG pO2 Sodium Potassium Chloride Carbon Dioxide BUN Creatinine Glucose POC Glucose Calcium AST ALT Lactate Dehydrogenase 731 H C-Reactive Protein Total Protein Albumin Triglycerides Lymph Enumerat CD4/CD8 % CD3 Cells Absolute CD3 Count % CD4 Cells Absolute CD4 Count % CD8 Cells Absolute CD8 Count % CD19 Cells Absolute CD19 Count HIV-1 RNA PCR copies/ml HIV-1 RNA (PCR) log HIV-1 Genotyping Miscellaneous Test Crossmatch 07/12/18 07/12/18 07/13/18 19:29 19:29 04:03 WBC RBC Hgb Hct MCHC RDW Plt Count Lymph % (Auto) Lymph # Seg Neutrophils % Abs Lymphs (Manual) 220 L D-Dimer POC ABG pH 7.254 L POC ABG pCO2 49.2 H POC ABG pO2 Sodium Potassium Chloride Carbon Dioxide BUN Creatinine Glucose POC Glucose Calcium AST ALT Lactate Dehydrogenase C-Reactive Protein Total Protein Albumin Triglycerides Lymph Enumerat CD4/CD8 0.04 L % CD3 Cells 88 H Absolute CD3 Count 194 L % CD4 Cells 3 L Absolute CD4 Count 7 L % CD8 Cells 75 H Absolute CD8 Count 177 L % CD19 Cells 4 L Absolute CD19 Count 9 L HIV-1 RNA PCR copies/ml 488273 H HIV-1 RNA (PCR) log 5.72 H HIV-1 Genotyping Miscellaneous Test Crossmatch 07/13/18 07/13/18 07/13/18 05:46 12:23 18:31 WBC RBC Hgb Hct MCHC RDW Plt Count Lymph % (Auto) Lymph # Seg Neutrophils % Abs Lymphs (Manual) D-Dimer POC ABG pH POC ABG pCO2 POC ABG pO2 Sodium Potassium Chloride Carbon Dioxide BUN Creatinine Glucose POC Glucose 68 L 106 H 112 H Calcium AST ALT Lactate Dehydrogenase C-Reactive Protein Total Protein Albumin Triglycerides Lymph Enumerat CD4/CD8 % CD3 Cells Absolute CD3 Count % CD4 Cells Absolute CD4 Count % CD8 Cells Absolute CD8 Count % CD19 Cells Absolute CD19 Count HIV-1 RNA PCR copies/ml HIV-1 RNA (PCR) log HIV-1 Genotyping Miscellaneous Test Crossmatch 07/14/18 07/14/18 07/14/18 04:19 05:36 05:36 WBC RBC 2.99 L Hgb 8.8 L Hct 25.7 L MCHC RDW 15.5 H Plt Count Lymph % (Auto) Lymph # Seg Neutrophils % Abs Lymphs (Manual) D-Dimer POC ABG pH 7.337 L POC ABG pCO2 POC ABG pO2 Sodium 135 L Potassium Chloride Carbon Dioxide 21 L BUN Creatinine 0.7 L Glucose 123 H POC Glucose Calcium 8.2 L AST ALT Lactate Dehydrogenase C-Reactive Protein Total Protein Albumin Triglycerides Lymph Enumerat CD4/CD8 % CD3 Cells Absolute CD3 Count % CD4 Cells Absolute CD4 Count % CD8 Cells Absolute CD8 Count % CD19 Cells Absolute CD19 Count HIV-1 RNA PCR copies/ml HIV-1 RNA (PCR) log HIV-1 Genotyping Miscellaneous Test Crossmatch 07/14/18 07/14/18 07/14/18 12:14 14:33 17:18 WBC RBC Hgb Hct MCHC RDW Plt Count Lymph % (Auto) Lymph # Seg Neutrophils % Abs Lymphs (Manual) D-Dimer POC ABG pH 7.325 L POC ABG pCO2 POC ABG pO2 75 L Sodium Potassium Chloride Carbon Dioxide BUN Creatinine Glucose POC Glucose 174 H 114 H Calcium AST ALT Lactate Dehydrogenase C-Reactive Protein Total Protein Albumin Triglycerides Lymph Enumerat CD4/CD8 % CD3 Cells Absolute CD3 Count % CD4 Cells Absolute CD4 Count % CD8 Cells Absolute CD8 Count % CD19 Cells Absolute CD19 Count HIV-1 RNA PCR copies/ml HIV-1 RNA (PCR) log HIV-1 Genotyping Miscellaneous Test Crossmatch 07/15/18 07/15/18 07/15/18 00:17 12:29 12:29 WBC RBC 2.64 L Hgb 7.5 L Hct 22.9 L MCHC RDW 15.4 H Plt Count Lymph % (Auto) 7.0 L Lymph # 0.4 L Seg Neutrophils % 89.6 H Abs Lymphs (Manual) D-Dimer POC ABG pH POC ABG pCO2 POC ABG pO2 Sodium Potassium Chloride Carbon Dioxide BUN Creatinine 0.6 L Glucose 124 H POC Glucose 113 H Calcium 7.3 L AST ALT Lactate Dehydrogenase C-Reactive Protein Total Protein Albumin Triglycerides Lymph Enumerat CD4/CD8 % CD3 Cells Absolute CD3 Count % CD4 Cells Absolute CD4 Count % CD8 Cells Absolute CD8 Count % CD19 Cells Absolute CD19 Count HIV-1 RNA PCR copies/ml HIV-1 RNA (PCR) log HIV-1 Genotyping Miscellaneous Test Crossmatch 07/15/18 07/16/18 07/16/18 14:09 04:46 07:21 WBC RBC Hgb Hct MCHC RDW Plt Count Lymph % (Auto) Lymph # Seg Neutrophils % Abs Lymphs (Manual) D-Dimer POC ABG pH 7.282 L POC ABG pCO2 52.6 H POC ABG pO2 63 L Sodium Potassium Chloride Carbon Dioxide BUN Creatinine Glucose POC Glucose Calcium AST ALT Lactate Dehydrogenase C-Reactive Protein 2.70 H Total Protein Albumin Triglycerides Lymph Enumerat CD4/CD8 % CD3 Cells Absolute CD3 Count % CD4 Cells Absolute CD4 Count % CD8 Cells Absolute CD8 Count % CD19 Cells Absolute CD19 Count HIV-1 RNA PCR copies/ml HIV-1 RNA (PCR) log HIV-1 Genotyping Miscellaneous Test Flexitest 1 H Crossmatch 07/16/18 07/16/18 07/16/18 07:21 07:21 16:16 WBC RBC 2.48 L Hgb 7.2 L Hct 21.5 L MCHC RDW 15.7 H Plt Count Lymph % (Auto) Lymph # Seg Neutrophils % Abs Lymphs (Manual) D-Dimer POC ABG pH 7.251 L POC ABG pCO2 62.2 H POC ABG pO2 Sodium 136 L Potassium Chloride Carbon Dioxide BUN Creatinine 0.6 L Glucose 118 H POC Glucose Calcium 7.5 L AST ALT Lactate Dehydrogenase C-Reactive Protein Total Protein Albumin Triglycerides Lymph Enumerat CD4/CD8 % CD3 Cells Absolute CD3 Count % CD4 Cells Absolute CD4 Count % CD8 Cells Absolute CD8 Count % CD19 Cells Absolute CD19 Count HIV-1 RNA PCR copies/ml HIV-1 RNA (PCR) log HIV-1 Genotyping Miscellaneous Test Crossmatch 07/17/18 07/18/18 07/18/18 04:01 01:10 03:10 WBC RBC 2.20 L Hgb 6.5 L Hct 19.2 L* MCHC RDW 16.0 H Plt Count Lymph % (Auto) 7.2 L Lymph # 0.5 L Seg Neutrophils % 89.9 H Abs Lymphs (Manual) D-Dimer POC ABG pH 7.245 L POC ABG pCO2 63.8 H POC ABG pO2 75 L Sodium Potassium Chloride Carbon Dioxide BUN Creatinine Glucose POC Glucose Calcium AST ALT Lactate Dehydrogenase C-Reactive Protein Total Protein Albumin Triglycerides Lymph Enumerat CD4/CD8 % CD3 Cells Absolute CD3 Count % CD4 Cells Absolute CD4 Count % CD8 Cells Absolute CD8 Count % CD19 Cells Absolute CD19 Count HIV-1 RNA PCR copies/ml HIV-1 RNA (PCR) log HIV-1 Genotyping Miscellaneous Test Crossmatch See Detail 07/18/18 07/18/18 07/18/18 04:54 05:02 12:59 WBC RBC Hgb Hct MCHC RDW Plt Count Lymph % (Auto) Lymph # Seg Neutrophils % Abs Lymphs (Manual) D-Dimer POC ABG pH 7.615 H POC ABG pCO2 32.6 L 48.8 H POC ABG pO2 79 L 118 H Sodium Potassium Chloride Carbon Dioxide BUN Creatinine Glucose POC Glucose 164 H Calcium AST ALT Lactate Dehydrogenase C-Reactive Protein Total Protein Albumin Triglycerides Lymph Enumerat CD4/CD8 % CD3 Cells Absolute CD3 Count % CD4 Cells Absolute CD4 Count % CD8 Cells Absolute CD8 Count % CD19 Cells Absolute CD19 Count HIV-1 RNA PCR copies/ml HIV-1 RNA (PCR) log HIV-1 Genotyping Miscellaneous Test Crossmatch 07/18/18 07/18/18 07/19/18 18:25 20:39 03:53 WBC RBC Hgb Hct MCHC RDW Plt Count Lymph % (Auto) Lymph # Seg Neutrophils % Abs Lymphs (Manual) D-Dimer POC ABG pH 7.339 L POC ABG pCO2 59.9 H 65.0 H POC ABG pO2 69 L Sodium Potassium Chloride Carbon Dioxide BUN Creatinine Glucose POC Glucose 155 H Calcium AST ALT Lactate Dehydrogenase C-Reactive Protein Total Protein Albumin Triglycerides Lymph Enumerat CD4/CD8 % CD3 Cells Absolute CD3 Count % CD4 Cells Absolute CD4 Count % CD8 Cells Absolute CD8 Count % CD19 Cells Absolute CD19 Count HIV-1 RNA PCR copies/ml HIV-1 RNA (PCR) log HIV-1 Genotyping Miscellaneous Test Crossmatch 07/19/18 07/19/18 07/19/18 08:10 08:10 10:52 WBC RBC 2.51 L Hgb 7.4 L Hct 22.0 L MCHC RDW 15.5 H Plt Count Lymph % (Auto) Lymph # Seg Neutrophils % Abs Lymphs (Manual) D-Dimer POC ABG pH POC ABG pCO2 POC ABG pO2 Sodium 130 L Potassium Chloride 89.0 L Carbon Dioxide 33 H BUN Creatinine 0.4 L Glucose 150 H POC Glucose 173 H Calcium 7.5 L AST ALT Lactate Dehydrogenase C-Reactive Protein Total Protein Albumin Triglycerides Lymph Enumerat CD4/CD8 % CD3 Cells Absolute CD3 Count % CD4 Cells Absolute CD4 Count % CD8 Cells Absolute CD8 Count % CD19 Cells Absolute CD19 Count HIV-1 RNA PCR copies/ml HIV-1 RNA (PCR) log HIV-1 Genotyping Miscellaneous Test Crossmatch 07/19/18 07/19/18 07/20/18 17:06 23:47 04:37 WBC RBC Hgb Hct MCHC RDW Plt Count Lymph % (Auto) Lymph # Seg Neutrophils % Abs Lymphs (Manual) D-Dimer POC ABG pH POC ABG pCO2 58.5 H POC ABG pO2 67 L Sodium Potassium Chloride Carbon Dioxide BUN Creatinine Glucose POC Glucose 117 H 114 H Calcium AST ALT Lactate Dehydrogenase C-Reactive Protein Total Protein Albumin Triglycerides Lymph Enumerat CD4/CD8 % CD3 Cells Absolute CD3 Count % CD4 Cells Absolute CD4 Count % CD8 Cells Absolute CD8 Count % CD19 Cells Absolute CD19 Count HIV-1 RNA PCR copies/ml HIV-1 RNA (PCR) log HIV-1 Genotyping Miscellaneous Test Crossmatch 07/20/18 07/20/18 07/21/18 06:20 06:20 04:18 WBC RBC 2.69 L Hgb 7.8 L Hct 23.6 L MCHC RDW 15.5 H Plt Count Lymph % (Auto) Lymph # Seg Neutrophils % Abs Lymphs (Manual) D-Dimer POC ABG pH 7.456 H POC ABG pCO2 60.4 H POC ABG pO2 64 L Sodium 134 L Potassium Chloride 89.2 L Carbon Dioxide 38 H BUN Creatinine 0.7 L D Glucose 120 H POC Glucose Calcium 7.6 L AST ALT Lactate Dehydrogenase C-Reactive Protein Total Protein Albumin Triglycerides Lymph Enumerat CD4/CD8 % CD3 Cells Absolute CD3 Count % CD4 Cells Absolute CD4 Count % CD8 Cells Absolute CD8 Count % CD19 Cells Absolute CD19 Count HIV-1 RNA PCR copies/ml HIV-1 RNA (PCR) log HIV-1 Genotyping Miscellaneous Test Crossmatch 07/21/18 07/21/18 07/22/18 04:35 04:35 04:16 WBC RBC 2.62 L 2.37 L Hgb 7.7 L 7.0 L Hct 23.1 L 21.1 L MCHC RDW 15.4 H Plt Count Lymph % (Auto) Lymph # Seg Neutrophils % Abs Lymphs (Manual) D-Dimer POC ABG pH POC ABG pCO2 POC ABG pO2 Sodium 129 L Potassium 5.3 H Chloride 85.3 L Carbon Dioxide 38 H BUN Creatinine 0.4 L Glucose 108 H POC Glucose Calcium 8.0 L AST ALT Lactate Dehydrogenase C-Reactive Protein Total Protein Albumin Triglycerides Lymph Enumerat CD4/CD8 % CD3 Cells Absolute CD3 Count % CD4 Cells Absolute CD4 Count % CD8 Cells Absolute CD8 Count % CD19 Cells Absolute CD19 Count HIV-1 RNA PCR copies/ml HIV-1 RNA (PCR) log HIV-1 Genotyping Miscellaneous Test Crossmatch 07/22/18 07/23/18 07/23/18 04:16 03:25 12:45 WBC RBC Hgb Hct MCHC RDW Plt Count Lymph % (Auto) Lymph # Seg Neutrophils % Abs Lymphs (Manual) D-Dimer POC ABG pH POC ABG pCO2 69.4 H POC ABG pO2 Sodium 132 L 125 L D Potassium 5.4 H 5.3 H Chloride 87.4 L 80.3 L Carbon Dioxide 38 H 38 H BUN Creatinine 0.4 L 0.3 L Glucose 117 H 124 H POC Glucose Calcium 7.5 L 7.4 L AST ALT Lactate Dehydrogenase C-Reactive Protein Total Protein Albumin Triglycerides Lymph Enumerat CD4/CD8 % CD3 Cells Absolute CD3 Count % CD4 Cells Absolute CD4 Count % CD8 Cells Absolute CD8 Count % CD19 Cells Absolute CD19 Count HIV-1 RNA PCR copies/ml HIV-1 RNA (PCR) log HIV-1 Genotyping Miscellaneous Test Crossmatch 07/23/18 07/24/18 07/24/18 23:52 04:30 04:30 WBC RBC 2.12 L Hgb 6.3 L Hct 18.9 L* MCHC RDW Plt Count Lymph % (Auto) Lymph # Seg Neutrophils % Abs Lymphs (Manual) D-Dimer POC ABG pH POC ABG pCO2 POC ABG pO2 Sodium 127 L Potassium 5.2 H Chloride 83.9 L Carbon Dioxide 39 H BUN Creatinine 0.3 L Glucose POC Glucose 118 H Calcium 7.5 L AST ALT Lactate Dehydrogenase C-Reactive Protein Total Protein Albumin Triglycerides Lymph Enumerat CD4/CD8 % CD3 Cells Absolute CD3 Count % CD4 Cells Absolute CD4 Count % CD8 Cells Absolute CD8 Count % CD19 Cells Absolute CD19 Count HIV-1 RNA PCR copies/ml HIV-1 RNA (PCR) log HIV-1 Genotyping Miscellaneous Test Crossmatch 07/24/18 07/24/18 07/24/18 05:11 05:30 07:50 WBC RBC Hgb Hct MCHC RDW Plt Count Lymph % (Auto) Lymph # Seg Neutrophils % Abs Lymphs (Manual) D-Dimer POC ABG pH 7.462 H POC ABG pCO2 58.7 H POC ABG pO2 79 L Sodium Potassium Chloride Carbon Dioxide BUN Creatinine Glucose POC Glucose 145 H Calcium AST ALT Lactate Dehydrogenase C-Reactive Protein Total Protein Albumin Triglycerides Lymph Enumerat CD4/CD8 % CD3 Cells Absolute CD3 Count % CD4 Cells Absolute CD4 Count % CD8 Cells Absolute CD8 Count % CD19 Cells Absolute CD19 Count HIV-1 RNA PCR copies/ml HIV-1 RNA (PCR) log HIV-1 Genotyping Miscellaneous Test Crossmatch See Detail 07/25/18 07/25/18 07/25/18 09:30 09:30 17:05 WBC RBC 2.99 L Hgb 9.1 L Hct 27.0 L D MCHC RDW Plt Count Lymph % (Auto) Lymph # Seg Neutrophils % Abs Lymphs (Manual) D-Dimer POC ABG pH POC ABG pCO2 POC ABG pO2 Sodium 131 L Potassium 5.1 H Chloride 84.4 L Carbon Dioxide 39 H BUN Creatinine 0.3 L Glucose 133 H POC Glucose Calcium 8.0 L AST ALT Lactate Dehydrogenase C-Reactive Protein Total Protein Albumin Triglycerides Lymph Enumerat CD4/CD8 % CD3 Cells Absolute CD3 Count % CD4 Cells Absolute CD4 Count % CD8 Cells Absolute CD8 Count % CD19 Cells Absolute CD19 Count HIV-1 RNA PCR copies/ml HIV-1 RNA (PCR) log HIV-1 Genotyping Detected H Miscellaneous Test Crossmatch 07/26/18 07/26/18 07/26/18 00:18 04:07 05:50 WBC RBC 3.01 L Hgb 9.4 L Hct 27.2 L MCHC 35 H RDW Plt Count Lymph % (Auto) 10.4 L Lymph # 0.9 L Seg Neutrophils % 84.2 H Abs Lymphs (Manual) D-Dimer POC ABG pH 7.456 H POC ABG pCO2 61.4 H POC ABG pO2 68 L Sodium 135 L Potassium 5.5 H Chloride 88.4 L Carbon Dioxide 38 H BUN Creatinine 0.3 L Glucose POC Glucose Calcium AST ALT Lactate Dehydrogenase C-Reactive Protein Total Protein Albumin Triglycerides Lymph Enumerat CD4/CD8 % CD3 Cells Absolute CD3 Count % CD4 Cells Absolute CD4 Count % CD8 Cells Absolute CD8 Count % CD19 Cells Absolute CD19 Count HIV-1 RNA PCR copies/ml HIV-1 RNA (PCR) log HIV-1 Genotyping Miscellaneous Test Crossmatch 07/26/18 07/26/18 07/27/18 05:50 14:56 14:26 WBC RBC Hgb Hct MCHC RDW Plt Count Lymph % (Auto) Lymph # Seg Neutrophils % Abs Lymphs (Manual) D-Dimer POC ABG pH 7.472 H POC ABG pCO2 66.0 H 57.4 H POC ABG pO2 56 L 59 L Sodium 131 L Potassium 5.1 H Chloride 84.5 L Carbon Dioxide 39 H BUN Creatinine 0.3 L Glucose POC Glucose Calcium AST 78 H ALT 71 H Lactate Dehydrogenase C-Reactive Protein Total Protein 6.0 L Albumin 2.5 L Triglycerides Lymph Enumerat CD4/CD8 % CD3 Cells Absolute CD3 Count % CD4 Cells Absolute CD4 Count % CD8 Cells Absolute CD8 Count % CD19 Cells Absolute CD19 Count HIV-1 RNA PCR copies/ml HIV-1 RNA (PCR) log HIV-1 Genotyping Miscellaneous Test Crossmatch 07/28/18 07/28/18 07/28/18 05:20 05:20 05:20 WBC RBC 3.21 L Hgb 10.0 L Hct 29.9 L MCHC RDW 15.4 H Plt Count 451 H Lymph % (Auto) Lymph # Seg Neutrophils % 81.6 H Abs Lymphs (Manual) D-Dimer POC ABG pH POC ABG pCO2 POC ABG pO2 Sodium 136 L Potassium Chloride 89.9 L Carbon Dioxide 38 H BUN Creatinine 0.4 L Glucose POC Glucose Calcium 8.1 L AST 104 H ALT 113 H Lactate Dehydrogenase C-Reactive Protein Total Protein 6.2 L Albumin 2.5 L Triglycerides 209 H Lymph Enumerat CD4/CD8 % CD3 Cells Absolute CD3 Count % CD4 Cells Absolute CD4 Count % CD8 Cells Absolute CD8 Count % CD19 Cells Absolute CD19 Count HIV-1 RNA PCR copies/ml HIV-1 RNA (PCR) log HIV-1 Genotyping Miscellaneous Test Crossmatch 07/28/18 07/28/18 07/29/18 06:08 17:22 04:28 WBC RBC Hgb Hct MCHC RDW Plt Count Lymph % (Auto) Lymph # Seg Neutrophils % Abs Lymphs (Manual) D-Dimer POC ABG pH 7.328 L POC ABG pCO2 65.7 H 55.1 H POC ABG pO2 70 L 113 H 76 L Sodium Potassium Chloride Carbon Dioxide BUN Creatinine Glucose POC Glucose Calcium AST ALT Lactate Dehydrogenase C-Reactive Protein Total Protein Albumin Triglycerides Lymph Enumerat CD4/CD8 % CD3 Cells Absolute CD3 Count % CD4 Cells Absolute CD4 Count % CD8 Cells Absolute CD8 Count % CD19 Cells Absolute CD19 Count HIV-1 RNA PCR copies/ml HIV-1 RNA (PCR) log HIV-1 Genotyping Miscellaneous Test Crossmatch 08/02/18 08/02/18 08/03/18 06:30 06:30 06:30 WBC RBC 2.96 L 2.78 L Hgb 9.4 L 9.0 L Hct 27.6 L 26.3 L MCHC RDW 18.4 H 19.6 H Plt Count Lymph % (Auto) 11.1 L Lymph # 0.6 L 0.7 L Seg Neutrophils % 84.0 H 79.0 H Abs Lymphs (Manual) D-Dimer POC ABG pH POC ABG pCO2 POC ABG pO2 Sodium 133 L Potassium Chloride 92.7 L Carbon Dioxide BUN 22 H Creatinine 0.5 L Glucose POC Glucose Calcium 8.1 L AST ALT Lactate Dehydrogenase C-Reactive Protein Total Protein Albumin Triglycerides Lymph Enumerat CD4/CD8 % CD3 Cells Absolute CD3 Count % CD4 Cells Absolute CD4 Count % CD8 Cells Absolute CD8 Count % CD19 Cells Absolute CD19 Count HIV-1 RNA PCR copies/ml HIV-1 RNA (PCR) log HIV-1 Genotyping Miscellaneous Test Crossmatch 08/03/18 08/04/18 08/05/18 06:30 17:13 08:03 WBC RBC 2.77 L Hgb 8.8 L Hct 25.8 L MCHC RDW 20.4 H Plt Count Lymph % (Auto) Lymph # 0.9 L Seg Neutrophils % 76.6 H Abs Lymphs (Manual) D-Dimer POC ABG pH POC ABG pCO2 POC ABG pO2 Sodium 131 L Potassium Chloride 92.0 L Carbon Dioxide BUN Creatinine 0.3 L Glucose POC Glucose 120 H Calcium 8.0 L AST ALT Lactate Dehydrogenase C-Reactive Protein Total Protein 6.0 L Albumin 2.4 L Triglycerides Lymph Enumerat CD4/CD8 % CD3 Cells Absolute CD3 Count % CD4 Cells Absolute CD4 Count % CD8 Cells Absolute CD8 Count % CD19 Cells Absolute CD19 Count HIV-1 RNA PCR copies/ml HIV-1 RNA (PCR) log HIV-1 Genotyping Miscellaneous Test Crossmatch 08/05/18 08/06/18 08/06/18 08:03 07:38 22:01 WBC RBC Hgb Hct MCHC RDW Plt Count Lymph % (Auto) Lymph # Seg Neutrophils % Abs Lymphs (Manual) D-Dimer POC ABG pH 7.507 H POC ABG pCO2 33.6 L POC ABG pO2 113 H Sodium 132 L 131 L Potassium 3.5 L Chloride 93.0 L 92.4 L Carbon Dioxide BUN Creatinine 0.3 L 0.4 L Glucose POC Glucose Calcium 8.0 L 8.1 L AST ALT Lactate Dehydrogenase C-Reactive Protein Total Protein Albumin Triglycerides Lymph Enumerat CD4/CD8 % CD3 Cells Absolute CD3 Count % CD4 Cells Absolute CD4 Count % CD8 Cells Absolute CD8 Count % CD19 Cells Absolute CD19 Count HIV-1 RNA PCR copies/ml HIV-1 RNA (PCR) log HIV-1 Genotyping Miscellaneous Test Crossmatch 08/07/18 08/07/18 08/08/18 07:57 07:57 04:38 WBC 4.1 L RBC 3.00 L Hgb 9.4 L Hct 27.9 L MCHC RDW 19.2 H Plt Count Lymph % (Auto) Lymph # Seg Neutrophils % Abs Lymphs (Manual) D-Dimer POC ABG pH POC ABG pCO2 POC ABG pO2 Sodium 133 L Potassium 3.2 L Chloride 95.9 L Carbon Dioxide BUN Creatinine 0.4 L 0.4 L Glucose 104 H POC Glucose Calcium AST ALT Lactate Dehydrogenase C-Reactive Protein Total Protein Albumin 2.6 L Triglycerides Lymph Enumerat CD4/CD8 % CD3 Cells Absolute CD3 Count % CD4 Cells Absolute CD4 Count % CD8 Cells Absolute CD8 Count % CD19 Cells Absolute CD19 Count HIV-1 RNA PCR copies/ml HIV-1 RNA (PCR) log HIV-1 Genotyping Miscellaneous Test Crossmatch Chest x-ray: image reviewed (trach in good position) Allied health notes reviewed: nursing
[2018-08-11 07:25] LABS: Basophils % (Auto) 0.8 % (0.0-1.8); Eosinophils # (Auto) 0.3 K/mm3 (0.0-0.4); Eosinophils % (Auto) 7.8 % (0.0-4.3); Hematocrit 26.9 % (35.5-45.6); Hemoglobin 9.2 gm/dl (11.8-15.2); Lymphocytes # (Auto) 0.9 K/mm3 (1.2-5.4); Lymphocytes % (Auto) 26.8 % (13.4-35.0); Mean Corpuscular HGB Conc 34 % (32-34); Mean Corpuscular Volume 93 fl (84-94); Monocytes # (Auto) 0.2 K/mm3 (0.0-0.8); Monocytes % (Auto) 4.7 % (0.0-7.3); Platelet Count 503 K/mm3 (140-440); Red Blood Count 2.91 M/mm3 (3.65-5.03); Red Cell Distribution Width 18.9 % (13.2-15.2)
[2018-08-11 07:35] LABS: BUN/Creatinine Ratio 35; Blood Urea Nitrogen 14 mg/dL (9-20); Calcium 8.1 mg/dL (8.4-10.2); Hemolysis Index 11
[2018-08-11] MEDS: NACL 0.9% 1000 ML 1,000 ML IV SCH ×3 (09:49→22:36)
[2018-08-11] MEDS: HEPARIN SUB-Q SCH ×3 (09:49→22:36)
--- NOTE | 2018-08-11 11:35 | Progress Note ---
Assessment and Plan Patient is a 37 yo man with a history of HIV and tobacco dependency who presents from [facility] to [facility] with sob and cough. Pt admitted to IMCU and initiated on Pneumonia protocol. Chest CT showed bilateral patchy and somewhat confluent alveolar infiltrates and interstitial infiltrates. Patient required emergent intubation , unable to wean , vent dependent , s/p trach and PEG and very resistant hypoxia. Clinically stable except for hypoxia Completed treatment for PNA. 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 weaned off trach. Still with a and PEG. - Acute hypoxic respiratory failure vent dependent > 96 hrs. off vent and s/p Trach and PEG placement, Wean off as As tolerated from tach -s/p PEG : PEG feeds per protocol - ordered for repeat speech eval - pending Hypokalemia: Corrected Trend -Sepsis present on admission - due to bilateral pneumonia /MRSA tracheal aspirate + PCP s/p ABX per ID, Isolation precautions, cont MRSA isolation -Pneumonia (pneumocystis jirovecii pneumonia positive stain): also MRSA Completed linezolid x 10 days until 07/23. S/p 21 days bactrim IV until 07/31/2018. 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 - continue valganciclovir 900 mg PO BID D19 -History of HIV-AIDS; noncompliance with medications per ID, ID following - continue bactrim DS 1 tab q day for PJP prophylaxis - continue HIV therapy: emtricitabine, tenofovir and dolutegravir (started on 08/07/2018) - Azithromycin prophylaxis is not needed since patient is now on ART -Diarrhea: Improved -Hyponatremia:sodium levels improved -Severe Malnutrition : [employer] following -Acute blood loss anemia; received 2 units PRBC, hb now stable - Elevated d dimers: CTA chest Neg PE Monitor closely and adjust the management as needed Disposition: Discharge pending on placement. Case management/social workers engaged Subjective Date of service: 08/11/18 Principal diagnosis: Acute hypoxemic resp failure; Bilateral pneumonia (PJP); HIV/AIDS Interval history: Underlying acquired in bed, in no acute distress. Denies any fever. No chills. Objective - Exam Narrative Exam: Constitutional: Lying in bed, ematiated. in no distress Head: Normocephalic atraumatic Eyes: Pupils are equal round and reactive to light Nose: No enlarged turbinates, no septal deviation. Mouth: Moist mucous membranes. Neck: Supple no thyromegaly. No bruit. No JVD Heart: Regular rate and rhythm, S1-S2 normal. No rubs murmurs or gallop Lungs: Clear to auscultation bilaterally. no rales or rhonchi Abdomen: Soft, nontender. Bowel sound are present. PEG tube in place Extremities: No edema, no cyanosis, no clubbing. Neuro: Alert oriented Oriented x3. No focal sensory or motor deficit. Skin: No rashes or hyperpigmented spots Musculoskeletal system: No joint pain or swelling Hematological: No petechia or subcutanous hemorrhages. Immunological: No multiple septic spots on the skin Lymphatic: No generalized lymphadenopathy Psychiatry: Euthymic. Calm. - Constitutional Vitals: Vital Signs - 12hr 08/10/18 08/10/18 08/11/18 23:46 23:49 00:00 Temperature 98.1 F Pulse Rate 89 Respiratory 20 Rate Blood Pressure 104/57 O2 Sat by Pulse 98 Oximetry O2 Sat by Pulse 100 Oximetry [ Assessment] 08/11/18 08/11/18 06:31 06:34 Temperature 97.9 F Pulse Rate 90 Respiratory 20 Rate Blood Pressure 98/60 O2 Sat by Pulse 96 Oximetry O2 Sat by Pulse Oximetry [ Assessment] - Labs CBC & Chem 7: 08/11/18 06:55 08/11/18 06:55 Labs: Abnormal lab results 08/11/18 08/11/18 Range/Units 06:55 06:55 WBC 3.3 L (4.5-11.0) K/mm3 RBC 2.91 L (3.65-5.03) M/mm3 Hgb 9.2 L (11.8-15.2) gm/dl Hct 26.9 L (35.5-45.6) % RDW 18.9 H (13.2-15.2) % Plt Count 503 H (140-440) K/mm3 Eos % (Auto) 7.8 H (0.0-4.3) % Lymph # 0.9 L (1.2-5.4) K/mm3 Chloride 108.8 H (98-107) mmol/L Creatinine 0.4 L (0.8-1.5) mg/dL Calcium 8.1 L (8.4-10.2) mg/dL
[2018-08-11] MEDS: PEPCID PO SCH ×2 (13:19→22:36)
[2018-08-11] MEDS: CARDURA PO SCH (13:21)
[2018-08-11] MEDS: BACTRIM 200-40 MG/5 ML PO SCH (13:23)
[2018-08-11] MEDS: TIVICAY PO SCH (13:25)
[2018-08-11] MEDS: EMTRIVA PO SCH (13:26)
[2018-08-11] MEDS: SODIUM CHLORIDE FLUSH SYRINGE 10 ML IV SCH ×2 (13:26→22:53)
[2018-08-11] MEDS: KENALOG TP SCH ×2 (13:26→22:37)
--- NOTE | 2018-08-11 13:34 | Progress Note ---
Assessment and Plan Acute hypoxemic respiratory failure, on mechanical ventilatory support. Bilateral pneumonia, high suspicion for Pneumocystis jiroveci pneumonia. MRSA Pneumonia Human immunodeficiency virus/acquired immunodeficiency syndrome,noncompliant with therapy. Hyponatremia. Severe protein calorie malnutrition. Elevated D-dimer. Tobacco use disorder. - resume daytime capping trials as tolerated (will shoot for RTC capping at this point) - tentative decanulation soon (monday) - continue to wean supplemental oxygen to keep O2 sats 88-90% acutely - continue Seroquel but tapering slowly - continue bronchodilators with pulmonary hygiene per RT - prn ABG's at this point - continue GI & VTE prophylaxis - prn CXR's at this point - continue Anti-infectives and ART per ID rec's - Avoid nephrotoxic agents, adjust all medications for CrCL - Tube feedings as tolerated - Accuchecks with glycemic control. Target glucose of 140-180 mg/dL - Maintenance of sleep -wake cycle - continue mobility protocol for pressure ulcer prophylaxis - Influenza and pneumonia vaccination per protocol CODE STATUS: FULL CODE Subjective Date of service: 08/11/18 Principal diagnosis: Acute hypoxemic resp failure; Bilateral pneumonia (PJP); HIV/AIDS Interval history: Patient is seen today for: Acute hypoxemic respiratory failure, on mechanical ventilatory support; Bilateral pneumonia, high suspicion for Pneumocystis jiroveci pneumonia; Human immunodeficiency virus/acquired immunodeficiency syndrome,noncompliant with therapy; Hyponatremia; Severe protein calorie malnutrition. Seen and examined at bedside; 24-hour events reviewed; nursing and respiratory care staff consulted; no adverse overnight events reported to me; resting peacefully in bed; tolerated capping yesterday; on PMV now; denies acute chest pains or palpitations Objective Vital Signs - 12hr 08/11/18 08/11/18 08/11/18 06:31 06:34 11:37 Temperature 97.9 F 98.0 F Pulse Rate 90 84 Respiratory 20 19 Rate Blood Pressure 98/60 106/63 O2 Sat by Pulse 96 98 Oximetry 08/11/18 13:21 Temperature Pulse Rate 84 Respiratory Rate Blood Pressure 106/63 O2 Sat by Pulse Oximetry Constitutional: no acute distress, other (young AAM; normocephalic and atraumatic) Eyes: non-icteric ENT: oropharynx moist, other (mallampati 2) Neck: supple, no lymphadenopathy, no JVD, other (+ midline tracheostomy tube in place) Effort: mildly labored Ascultation: Bilateral: diminished breath sounds, rhonchi Percussion: Bilateral: not dull Cardiovascular: regular rate and rhythm, other (S1,S2, no murmurs, gallops or rubs) Gastrointestinal: normoactive bowel sounds, soft, non-tender, non-distended Integumentary: normal Extremities: no cyanosis, no edema, pulses normal, no ischemia or petechiae Neurologic: normal mental status, non-focal exam, pupils equal and round, CN II- XII normal, motor strength normal and Psychiatric: mood appropriate, affect normal CBC and BMP: 08/12/18 04:38 08/12/18 04:38 ABG, PT/INR, D-dimer: ABG POC ABG pH 7.507 (7.35-7.45) H 08/06/18 22:01 POC ABG pCO2 33.6 (35-45) L 08/06/18 22:01 POC ABG pO2 113 (80-105) H 08/06/18 22:01 POC ABG HCO3 26.6 (22-26 mml/L) 08/06/18 22:01 POC ABG Total CO2 28 (23-27mmol/L) 08/06/18 22:01 POC ABG O2 Sat 99 08/06/18 22:01 PT/INR, D-dimer 1298.70 ng/mlDDU (0-234) H 07/11/18 15:04 Abnormal lab findings: Abnormal Labs 07/11/18 07/11/18 07/11/18 14:06 14:06 15:04 WBC RBC 3.30 L Hgb 9.6 L Hct 28.7 L MCHC RDW Plt Count Lymph % (Auto) Eos % (Auto) Lymph # Seg Neutrophils % Abs Lymphs (Manual) D-Dimer 1298.70 H POC ABG pH POC ABG pCO2 POC ABG pO2 Sodium 132 L Potassium Chloride Carbon Dioxide BUN Creatinine 0.6 L Glucose 103 H POC Glucose Calcium 7.3 L AST ALT Lactate Dehydrogenase C-Reactive Protein Total Protein Albumin 2.1 L Triglycerides Lymph Enumerat CD4/CD8 % CD3 Cells Absolute CD3 Count % CD4 Cells Absolute CD4 Count % CD8 Cells Absolute CD8 Count % CD19 Cells Absolute CD19 Count HIV-1 RNA PCR copies/ml HIV-1 RNA (PCR) log HIV-1 Genotyping Miscellaneous Test Crossmatch 07/11/18 07/11/18 07/12/18 17:36 22:15 00:25 WBC RBC Hgb Hct MCHC RDW Plt Count Lymph % (Auto) Eos % (Auto) Lymph # Seg Neutrophils % Abs Lymphs (Manual) D-Dimer POC ABG pH 7.289 L POC ABG pCO2 POC ABG pO2 66 L Sodium Potassium Chloride Carbon Dioxide BUN Creatinine Glucose POC Glucose Calcium AST ALT Lactate Dehydrogenase 591 H C-Reactive Protein Total Protein Albumin Triglycerides Lymph Enumerat CD4/CD8 % CD3 Cells Absolute CD3 Count % CD4 Cells Absolute CD4 Count % CD8 Cells Absolute CD8 Count % CD19 Cells Absolute CD19 Count HIV-1 RNA PCR copies/ml HIV-1 RNA (PCR) log HIV-1 Genotyping Miscellaneous Test see below H Crossmatch 07/12/18 07/12/18 07/12/18 00:41 05:37 19:29 WBC RBC Hgb Hct MCHC RDW Plt Count Lymph % (Auto) Eos % (Auto) Lymph # Seg Neutrophils % Abs Lymphs (Manual) D-Dimer POC ABG pH 7.302 L 7.275 L POC ABG pCO2 47.1 H POC ABG pO2 Sodium Potassium Chloride Carbon Dioxide BUN Creatinine Glucose POC Glucose Calcium AST ALT Lactate Dehydrogenase 731 H C-Reactive Protein Total Protein Albumin Triglycerides Lymph Enumerat CD4/CD8 % CD3 Cells Absolute CD3 Count % CD4 Cells Absolute CD4 Count % CD8 Cells Absolute CD8 Count % CD19 Cells Absolute CD19 Count HIV-1 RNA PCR copies/ml HIV-1 RNA (PCR) log HIV-1 Genotyping Miscellaneous Test Crossmatch 07/12/18 07/12/18 07/13/18 19:29 19:29 04:03 WBC RBC Hgb Hct MCHC RDW Plt Count Lymph % (Auto) Eos % (Auto) Lymph # Seg Neutrophils % Abs Lymphs (Manual) 220 L D-Dimer POC ABG pH 7.254 L POC ABG pCO2 49.2 H POC ABG pO2 Sodium Potassium Chloride Carbon Dioxide BUN Creatinine Glucose POC Glucose Calcium AST ALT Lactate Dehydrogenase C-Reactive Protein Total Protein Albumin Triglycerides Lymph Enumerat CD4/CD8 0.04 L % CD3 Cells 88 H Absolute CD3 Count 194 L % CD4 Cells 3 L Absolute CD4 Count 7 L % CD8 Cells 75 H Absolute CD8 Count 177 L % CD19 Cells 4 L Absolute CD19 Count 9 L HIV-1 RNA PCR copies/ml 521220 H HIV-1 RNA (PCR) log 5.72 H HIV-1 Genotyping Miscellaneous Test Crossmatch 07/13/18 07/13/18 07/13/18 05:46 12:23 18:31 WBC RBC Hgb Hct MCHC RDW Plt Count Lymph % (Auto) Eos % (Auto) Lymph # Seg Neutrophils % Abs Lymphs (Manual) D-Dimer POC ABG pH POC ABG pCO2 POC ABG pO2 Sodium Potassium Chloride Carbon Dioxide BUN Creatinine Glucose POC Glucose 68 L 106 H 112 H Calcium AST ALT Lactate Dehydrogenase C-Reactive Protein Total Protein Albumin Triglycerides Lymph Enumerat CD4/CD8 % CD3 Cells Absolute CD3 Count % CD4 Cells Absolute CD4 Count % CD8 Cells Absolute CD8 Count % CD19 Cells Absolute CD19 Count HIV-1 RNA PCR copies/ml HIV-1 RNA (PCR) log HIV-1 Genotyping Miscellaneous Test Crossmatch 07/14/18 07/14/18 07/14/18 04:19 05:36 05:36 WBC RBC 2.99 L Hgb 8.8 L Hct 25.7 L MCHC RDW 15.5 H Plt Count Lymph % (Auto) Eos % (Auto) Lymph # Seg Neutrophils % Abs Lymphs (Manual) D-Dimer POC ABG pH 7.337 L POC ABG pCO2 POC ABG pO2 Sodium 135 L Potassium Chloride Carbon Dioxide 21 L BUN Creatinine 0.7 L Glucose 123 H POC Glucose Calcium 8.2 L AST ALT Lactate Dehydrogenase C-Reactive Protein Total Protein Albumin Triglycerides Lymph Enumerat CD4/CD8 % CD3 Cells Absolute CD3 Count % CD4 Cells Absolute CD4 Count % CD8 Cells Absolute CD8 Count % CD19 Cells Absolute CD19 Count HIV-1 RNA PCR copies/ml HIV-1 RNA (PCR) log HIV-1 Genotyping Miscellaneous Test Crossmatch 07/14/18 07/14/18 07/14/18 12:14 14:33 17:18 WBC RBC Hgb Hct MCHC RDW Plt Count Lymph % (Auto) Eos % (Auto) Lymph # Seg Neutrophils % Abs Lymphs (Manual) D-Dimer POC ABG pH 7.325 L POC ABG pCO2 POC ABG pO2 75 L Sodium Potassium Chloride Carbon Dioxide BUN Creatinine Glucose POC Glucose 174 H 114 H Calcium AST ALT Lactate Dehydrogenase C-Reactive Protein Total Protein Albumin Triglycerides Lymph Enumerat CD4/CD8 % CD3 Cells Absolute CD3 Count % CD4 Cells Absolute CD4 Count % CD8 Cells Absolute CD8 Count % CD19 Cells Absolute CD19 Count HIV-1 RNA PCR copies/ml HIV-1 RNA (PCR) log HIV-1 Genotyping Miscellaneous Test Crossmatch 07/15/18 07/15/18 07/15/18 00:17 12:29 12:29 WBC RBC 2.64 L Hgb 7.5 L Hct 22.9 L MCHC RDW 15.4 H Plt Count Lymph % (Auto) 7.0 L Eos % (Auto) Lymph # 0.4 L Seg Neutrophils % 89.6 H Abs Lymphs (Manual) D-Dimer POC ABG pH POC ABG pCO2 POC ABG pO2 Sodium Potassium Chloride Carbon Dioxide BUN Creatinine 0.6 L Glucose 124 H POC Glucose 113 H Calcium 7.3 L AST ALT Lactate Dehydrogenase C-Reactive Protein Total Protein Albumin Triglycerides Lymph Enumerat CD4/CD8 % CD3 Cells Absolute CD3 Count % CD4 Cells Absolute CD4 Count % CD8 Cells Absolute CD8 Count % CD19 Cells Absolute CD19 Count HIV-1 RNA PCR copies/ml HIV-1 RNA (PCR) log HIV-1 Genotyping Miscellaneous Test Crossmatch 07/15/18 07/16/18 07/16/18 14:09 04:46 07:21 WBC RBC Hgb Hct MCHC RDW Plt Count Lymph % (Auto) Eos % (Auto) Lymph # Seg Neutrophils % Abs Lymphs (Manual) D-Dimer POC ABG pH 7.282 L POC ABG pCO2 52.6 H POC ABG pO2 63 L Sodium Potassium Chloride Carbon Dioxide BUN Creatinine Glucose POC Glucose Calcium AST ALT Lactate Dehydrogenase C-Reactive Protein 2.70 H Total Protein Albumin Triglycerides Lymph Enumerat CD4/CD8 % CD3 Cells Absolute CD3 Count % CD4 Cells Absolute CD4 Count % CD8 Cells Absolute CD8 Count % CD19 Cells Absolute CD19 Count HIV-1 RNA PCR copies/ml HIV-1 RNA (PCR) log HIV-1 Genotyping Miscellaneous Test Flexitest 1 H Crossmatch 07/16/18 07/16/18 07/16/18 07:21 07:21 16:16 WBC RBC 2.48 L Hgb 7.2 L Hct 21.5 L MCHC RDW 15.7 H Plt Count Lymph % (Auto) Eos % (Auto) Lymph # Seg Neutrophils % Abs Lymphs (Manual) D-Dimer POC ABG pH 7.251 L POC ABG pCO2 62.2 H POC ABG pO2 Sodium 136 L Potassium Chloride Carbon Dioxide BUN Creatinine 0.6 L Glucose 118 H POC Glucose Calcium 7.5 L AST ALT Lactate Dehydrogenase C-Reactive Protein Total Protein Albumin Triglycerides Lymph Enumerat CD4/CD8 % CD3 Cells Absolute CD3 Count % CD4 Cells Absolute CD4 Count % CD8 Cells Absolute CD8 Count % CD19 Cells Absolute CD19 Count HIV-1 RNA PCR copies/ml HIV-1 RNA (PCR) log HIV-1 Genotyping Miscellaneous Test Crossmatch 07/17/18 07/18/18 07/18/18 04:01 01:10 03:10 WBC RBC 2.20 L Hgb 6.5 L Hct 19.2 L* MCHC RDW 16.0 H Plt Count Lymph % (Auto) 7.2 L Eos % (Auto) Lymph # 0.5 L Seg Neutrophils % 89.9 H Abs Lymphs (Manual) D-Dimer POC ABG pH 7.245 L POC ABG pCO2 63.8 H POC ABG pO2 75 L Sodium Potassium Chloride Carbon Dioxide BUN Creatinine Glucose POC Glucose Calcium AST ALT Lactate Dehydrogenase C-Reactive Protein Total Protein Albumin Triglycerides Lymph Enumerat CD4/CD8 % CD3 Cells Absolute CD3 Count % CD4 Cells Absolute CD4 Count % CD8 Cells Absolute CD8 Count % CD19 Cells Absolute CD19 Count HIV-1 RNA PCR copies/ml HIV-1 RNA (PCR) log HIV-1 Genotyping Miscellaneous Test Crossmatch See Detail 07/18/18 07/18/18 07/18/18 04:54 05:02 12:59 WBC RBC Hgb Hct MCHC RDW Plt Count Lymph % (Auto) Eos % (Auto) Lymph # Seg Neutrophils % Abs Lymphs (Manual) D-Dimer POC ABG pH 7.615 H POC ABG pCO2 32.6 L 48.8 H POC ABG pO2 79 L 118 H Sodium Potassium Chloride Carbon Dioxide BUN Creatinine Glucose POC Glucose 164 H Calcium AST ALT Lactate Dehydrogenase C-Reactive Protein Total Protein Albumin Triglycerides Lymph Enumerat CD4/CD8 % CD3 Cells Absolute CD3 Count % CD4 Cells Absolute CD4 Count % CD8 Cells Absolute CD8 Count % CD19 Cells Absolute CD19 Count HIV-1 RNA PCR copies/ml HIV-1 RNA (PCR) log HIV-1 Genotyping Miscellaneous Test Crossmatch 07/18/18 07/18/18 07/19/18 18:25 20:39 03:53 WBC RBC Hgb Hct MCHC RDW Plt Count Lymph % (Auto) Eos % (Auto) Lymph # Seg Neutrophils % Abs Lymphs (Manual) D-Dimer POC ABG pH 7.339 L POC ABG pCO2 59.9 H 65.0 H POC ABG pO2 69 L Sodium Potassium Chloride Carbon Dioxide BUN Creatinine Glucose POC Glucose 155 H Calcium AST ALT Lactate Dehydrogenase C-Reactive Protein Total Protein Albumin Triglycerides Lymph Enumerat CD4/CD8 % CD3 Cells Absolute CD3 Count % CD4 Cells Absolute CD4 Count % CD8 Cells Absolute CD8 Count % CD19 Cells Absolute CD19 Count HIV-1 RNA PCR copies/ml HIV-1 RNA (PCR) log HIV-1 Genotyping Miscellaneous Test Crossmatch 07/19/18 07/19/18 07/19/18 08:10 08:10 10:52 WBC RBC 2.51 L Hgb 7.4 L Hct 22.0 L MCHC RDW 15.5 H Plt Count Lymph % (Auto) Eos % (Auto) Lymph # Seg Neutrophils % Abs Lymphs (Manual) D-Dimer POC ABG pH POC ABG pCO2 POC ABG pO2 Sodium 130 L Potassium Chloride 89.0 L Carbon Dioxide 33 H BUN Creatinine 0.4 L Glucose 150 H POC Glucose 173 H Calcium 7.5 L AST ALT Lactate Dehydrogenase C-Reactive Protein Total Protein Albumin Triglycerides Lymph Enumerat CD4/CD8 % CD3 Cells Absolute CD3 Count % CD4 Cells Absolute CD4 Count % CD8 Cells Absolute CD8 Count % CD19 Cells Absolute CD19 Count HIV-1 RNA PCR copies/ml HIV-1 RNA (PCR) log HIV-1 Genotyping Miscellaneous Test Crossmatch 07/19/18 07/19/18 07/20/18 17:06 23:47 04:37 WBC RBC Hgb Hct MCHC RDW Plt Count Lymph % (Auto) Eos % (Auto) Lymph # Seg Neutrophils % Abs Lymphs (Manual) D-Dimer POC ABG pH POC ABG pCO2 58.5 H POC ABG pO2 67 L Sodium Potassium Chloride Carbon Dioxide BUN Creatinine Glucose POC Glucose 117 H 114 H Calcium AST ALT Lactate Dehydrogenase C-Reactive Protein Total Protein Albumin Triglycerides Lymph Enumerat CD4/CD8 % CD3 Cells Absolute CD3 Count % CD4 Cells Absolute CD4 Count % CD8 Cells Absolute CD8 Count % CD19 Cells Absolute CD19 Count HIV-1 RNA PCR copies/ml HIV-1 RNA (PCR) log HIV-1 Genotyping Miscellaneous Test Crossmatch 05/10/19 05/10/19 05/11/19 06:20 06:20 04:18 WBC RBC 2.69 L Hgb 7.8 L Hct 23.6 L MCHC RDW 15.5 H Plt Count Lymph % (Auto) Eos % (Auto) Lymph # Seg Neutrophils % Abs Lymphs (Manual) D-Dimer POC ABG pH 7.456 H POC ABG pCO2 60.4 H POC ABG pO2 64 L Sodium 134 L Potassium Chloride 89.2 L Carbon Dioxide 38 H BUN Creatinine 0.7 L D Glucose 120 H POC Glucose Calcium 7.6 L AST ALT Lactate Dehydrogenase C-Reactive Protein Total Protein Albumin Triglycerides Lymph Enumerat CD4/CD8 % CD3 Cells Absolute CD3 Count % CD4 Cells Absolute CD4 Count % CD8 Cells Absolute CD8 Count % CD19 Cells Absolute CD19 Count HIV-1 RNA PCR copies/ml HIV-1 RNA (PCR) log HIV-1 Genotyping Miscellaneous Test Crossmatch 07/21/18 07/21/18 07/22/18 04:35 04:35 04:16 WBC RBC 2.62 L 2.37 L Hgb 7.7 L 7.0 L Hct 23.1 L 21.1 L MCHC RDW 15.4 H Plt Count Lymph % (Auto) Eos % (Auto) Lymph # Seg Neutrophils % Abs Lymphs (Manual) D-Dimer POC ABG pH POC ABG pCO2 POC ABG pO2 Sodium 129 L Potassium 5.3 H Chloride 85.3 L Carbon Dioxide 38 H BUN Creatinine 0.4 L Glucose 108 H POC Glucose Calcium 8.0 L AST ALT Lactate Dehydrogenase C-Reactive Protein Total Protein Albumin Triglycerides Lymph Enumerat CD4/CD8 % CD3 Cells Absolute CD3 Count % CD4 Cells Absolute CD4 Count % CD8 Cells Absolute CD8 Count % CD19 Cells Absolute CD19 Count HIV-1 RNA PCR copies/ml HIV-1 RNA (PCR) log HIV-1 Genotyping Miscellaneous Test Crossmatch 07/22/18 07/23/18 07/23/18 04:16 03:25 12:45 WBC RBC Hgb Hct MCHC RDW Plt Count Lymph % (Auto) Eos % (Auto) Lymph # Seg Neutrophils % Abs Lymphs (Manual) D-Dimer POC ABG pH POC ABG pCO2 69.4 H POC ABG pO2 Sodium 132 L 125 L D Potassium 5.4 H 5.3 H Chloride 87.4 L 80.3 L Carbon Dioxide 38 H 38 H BUN Creatinine 0.4 L 0.3 L Glucose 117 H 124 H POC Glucose Calcium 7.5 L 7.4 L AST ALT Lactate Dehydrogenase C-Reactive Protein Total Protein Albumin Triglycerides Lymph Enumerat CD4/CD8 % CD3 Cells Absolute CD3 Count % CD4 Cells Absolute CD4 Count % CD8 Cells Absolute CD8 Count % CD19 Cells Absolute CD19 Count HIV-1 RNA PCR copies/ml HIV-1 RNA (PCR) log HIV-1 Genotyping Miscellaneous Test Crossmatch 07/23/18 07/24/18 07/24/18 23:52 04:30 04:30 WBC RBC 2.12 L Hgb 6.3 L Hct 18.9 L* MCHC RDW Plt Count Lymph % (Auto) Eos % (Auto) Lymph # Seg Neutrophils % Abs Lymphs (Manual) D-Dimer POC ABG pH POC ABG pCO2 POC ABG pO2 Sodium 127 L Potassium 5.2 H Chloride 83.9 L Carbon Dioxide 39 H BUN Creatinine 0.3 L Glucose POC Glucose 118 H Calcium 7.5 L AST ALT Lactate Dehydrogenase C-Reactive Protein Total Protein Albumin Triglycerides Lymph Enumerat CD4/CD8 % CD3 Cells Absolute CD3 Count % CD4 Cells Absolute CD4 Count % CD8 Cells Absolute CD8 Count % CD19 Cells Absolute CD19 Count HIV-1 RNA PCR copies/ml HIV-1 RNA (PCR) log HIV-1 Genotyping Miscellaneous Test Crossmatch 07/24/18 07/24/18 07/24/18 05:11 05:30 07:50 WBC RBC Hgb Hct MCHC RDW Plt Count Lymph % (Auto) Eos % (Auto) Lymph # Seg Neutrophils % Abs Lymphs (Manual) D-Dimer POC ABG pH 7.462 H POC ABG pCO2 58.7 H POC ABG pO2 79 L Sodium Potassium Chloride Carbon Dioxide BUN Creatinine Glucose POC Glucose 145 H Calcium AST ALT Lactate Dehydrogenase C-Reactive Protein Total Protein Albumin Triglycerides Lymph Enumerat CD4/CD8 % CD3 Cells Absolute CD3 Count % CD4 Cells Absolute CD4 Count % CD8 Cells Absolute CD8 Count % CD19 Cells Absolute CD19 Count HIV-1 RNA PCR copies/ml HIV-1 RNA (PCR) log HIV-1 Genotyping Miscellaneous Test Crossmatch See Detail 07/25/18 07/25/18 07/25/18 09:30 09:30 17:05 WBC RBC 2.99 L Hgb 9.1 L Hct 27.0 L D MCHC RDW Plt Count Lymph % (Auto) Eos % (Auto) Lymph # Seg Neutrophils % Abs Lymphs (Manual) D-Dimer POC ABG pH POC ABG pCO2 POC ABG pO2 Sodium 131 L Potassium 5.1 H Chloride 84.4 L Carbon Dioxide 39 H BUN Creatinine 0.3 L Glucose 133 H POC Glucose Calcium 8.0 L AST ALT Lactate Dehydrogenase C-Reactive Protein Total Protein Albumin Triglycerides Lymph Enumerat CD4/CD8 % CD3 Cells Absolute CD3 Count % CD4 Cells Absolute CD4 Count % CD8 Cells Absolute CD8 Count % CD19 Cells Absolute CD19 Count HIV-1 RNA PCR copies/ml HIV-1 RNA (PCR) log HIV-1 Genotyping Detected H Miscellaneous Test Crossmatch 07/26/18 07/26/18 07/26/18 00:18 04:07 05:50 WBC RBC 3.01 L Hgb 9.4 L Hct 27.2 L MCHC 35 H RDW Plt Count Lymph % (Auto) 10.4 L Eos % (Auto) Lymph # 0.9 L Seg Neutrophils % 84.2 H Abs Lymphs (Manual) D-Dimer POC ABG pH 7.456 H POC ABG pCO2 61.4 H POC ABG pO2 68 L Sodium 135 L Potassium 5.5 H Chloride 88.4 L Carbon Dioxide 38 H BUN Creatinine 0.3 L Glucose POC Glucose Calcium AST ALT Lactate Dehydrogenase C-Reactive Protein Total Protein Albumin Triglycerides Lymph Enumerat CD4/CD8 % CD3 Cells Absolute CD3 Count % CD4 Cells Absolute CD4 Count % CD8 Cells Absolute CD8 Count % CD19 Cells Absolute CD19 Count HIV-1 RNA PCR copies/ml HIV-1 RNA (PCR) log HIV-1 Genotyping Miscellaneous Test Crossmatch 07/26/18 07/26/18 07/27/18 05:50 14:56 14:26 WBC RBC Hgb Hct MCHC RDW Plt Count Lymph % (Auto) Eos % (Auto) Lymph # Seg Neutrophils % Abs Lymphs (Manual) D-Dimer POC ABG pH 7.472 H POC ABG pCO2 66.0 H 57.4 H POC ABG pO2 56 L 59 L Sodium 131 L Potassium 5.1 H Chloride 84.5 L Carbon Dioxide 39 H BUN Creatinine 0.3 L Glucose POC Glucose Calcium AST 78 H ALT 71 H Lactate Dehydrogenase C-Reactive Protein Total Protein 6.0 L Albumin 2.5 L Triglycerides Lymph Enumerat CD4/CD8 % CD3 Cells Absolute CD3 Count % CD4 Cells Absolute CD4 Count % CD8 Cells Absolute CD8 Count % CD19 Cells Absolute CD19 Count HIV-1 RNA PCR copies/ml HIV-1 RNA (PCR) log HIV-1 Genotyping Miscellaneous Test Crossmatch 07/28/18 07/28/18 07/28/18 05:20 05:20 05:20 WBC RBC 3.21 L Hgb 10.0 L Hct 29.9 L MCHC RDW 15.4 H Plt Count 451 H Lymph % (Auto) Eos % (Auto) Lymph # Seg Neutrophils % 81.6 H Abs Lymphs (Manual) D-Dimer POC ABG pH POC ABG pCO2 POC ABG pO2 Sodium 136 L Potassium Chloride 89.9 L Carbon Dioxide 38 H BUN Creatinine 0.4 L Glucose POC Glucose Calcium 8.1 L AST 104 H ALT 113 H Lactate Dehydrogenase C-Reactive Protein Total Protein 6.2 L Albumin 2.5 L Triglycerides 209 H Lymph Enumerat CD4/CD8 % CD3 Cells Absolute CD3 Count % CD4 Cells Absolute CD4 Count % CD8 Cells Absolute CD8 Count % CD19 Cells Absolute CD19 Count HIV-1 RNA PCR copies/ml HIV-1 RNA (PCR) log HIV-1 Genotyping Miscellaneous Test Crossmatch 07/28/18 07/28/18 07/29/18 06:08 17:22 04:28 WBC RBC Hgb Hct MCHC RDW Plt Count Lymph % (Auto) Eos % (Auto) Lymph # Seg Neutrophils % Abs Lymphs (Manual) D-Dimer POC ABG pH 7.328 L POC ABG pCO2 65.7 H 55.1 H POC ABG pO2 70 L 113 H 76 L Sodium Potassium Chloride Carbon Dioxide BUN Creatinine Glucose POC Glucose Calcium AST ALT Lactate Dehydrogenase C-Reactive Protein Total Protein Albumin Triglycerides Lymph Enumerat CD4/CD8 % CD3 Cells Absolute CD3 Count % CD4 Cells Absolute CD4 Count % CD8 Cells Absolute CD8 Count % CD19 Cells Absolute CD19 Count HIV-1 RNA PCR copies/ml HIV-1 RNA (PCR) log HIV-1 Genotyping Miscellaneous Test Crossmatch 08/02/18 08/02/18 08/03/18 06:30 06:30 06:30 WBC RBC 2.96 L 2.78 L Hgb 9.4 L 9.0 L Hct 27.6 L 26.3 L MCHC RDW 18.4 H 19.6 H Plt Count Lymph % (Auto) 11.1 L Eos % (Auto) Lymph # 0.6 L 0.7 L Seg Neutrophils % 84.0 H 79.0 H Abs Lymphs (Manual) D-Dimer POC ABG pH POC ABG pCO2 POC ABG pO2 Sodium 133 L Potassium Chloride 92.7 L Carbon Dioxide BUN 22 H Creatinine 0.5 L Glucose POC Glucose Calcium 8.1 L AST ALT Lactate Dehydrogenase C-Reactive Protein Total Protein Albumin Triglycerides Lymph Enumerat CD4/CD8 % CD3 Cells Absolute CD3 Count % CD4 Cells Absolute CD4 Count % CD8 Cells Absolute CD8 Count % CD19 Cells Absolute CD19 Count HIV-1 RNA PCR copies/ml HIV-1 RNA (PCR) log HIV-1 Genotyping Miscellaneous Test Crossmatch 08/03/18 08/04/18 08/05/18 06:30 17:13 08:03 WBC RBC 2.77 L Hgb 8.8 L Hct 25.8 L MCHC RDW 20.4 H Plt Count Lymph % (Auto) Eos % (Auto) Lymph # 0.9 L Seg Neutrophils % 76.6 H Abs Lymphs (Manual) D-Dimer POC ABG pH POC ABG pCO2 POC ABG pO2 Sodium 131 L Potassium Chloride 92.0 L Carbon Dioxide BUN Creatinine 0.3 L Glucose POC Glucose 120 H Calcium 8.0 L AST ALT Lactate Dehydrogenase C-Reactive Protein Total Protein 6.0 L Albumin 2.4 L Triglycerides Lymph Enumerat CD4/CD8 % CD3 Cells Absolute CD3 Count % CD4 Cells Absolute CD4 Count % CD8 Cells Absolute CD8 Count % CD19 Cells Absolute CD19 Count HIV-1 RNA PCR copies/ml HIV-1 RNA (PCR) log HIV-1 Genotyping Miscellaneous Test Crossmatch 08/05/18 08/06/18 08/06/18 08:03 07:38 22:01 WBC RBC Hgb Hct MCHC RDW Plt Count Lymph % (Auto) Eos % (Auto) Lymph # Seg Neutrophils % Abs Lymphs (Manual) D-Dimer POC ABG pH 7.507 H POC ABG pCO2 33.6 L POC ABG pO2 113 H Sodium 132 L 131 L Potassium 3.5 L Chloride 93.0 L 92.4 L Carbon Dioxide BUN Creatinine 0.3 L 0.4 L Glucose POC Glucose Calcium 8.0 L 8.1 L AST ALT Lactate Dehydrogenase C-Reactive Protein Total Protein Albumin Triglycerides Lymph Enumerat CD4/CD8 % CD3 Cells Absolute CD3 Count % CD4 Cells Absolute CD4 Count % CD8 Cells Absolute CD8 Count % CD19 Cells Absolute CD19 Count HIV-1 RNA PCR copies/ml HIV-1 RNA (PCR) log HIV-1 Genotyping Miscellaneous Test Crossmatch 08/07/18 08/07/18 08/08/18 07:57 07:57 04:38 WBC 4.1 L RBC 3.00 L Hgb 9.4 L Hct 27.9 L MCHC RDW 19.2 H Plt Count Lymph % (Auto) Eos % (Auto) Lymph # Seg Neutrophils % Abs Lymphs (Manual) D-Dimer POC ABG pH POC ABG pCO2 POC ABG pO2 Sodium 133 L Potassium 3.2 L Chloride 95.9 L Carbon Dioxide BUN Creatinine 0.4 L 0.4 L Glucose 104 H POC Glucose Calcium AST ALT Lactate Dehydrogenase C-Reactive Protein Total Protein Albumin 2.6 L Triglycerides Lymph Enumerat CD4/CD8 % CD3 Cells Absolute CD3 Count % CD4 Cells Absolute CD4 Count % CD8 Cells Absolute CD8 Count % CD19 Cells Absolute CD19 Count HIV-1 RNA PCR copies/ml HIV-1 RNA (PCR) log HIV-1 Genotyping Miscellaneous Test Crossmatch 08/11/18 08/11/18 06:55 06:55 WBC 3.3 L RBC 2.91 L Hgb 9.2 L Hct 26.9 L MCHC RDW 18.9 H Plt Count 503 H Lymph % (Auto) Eos % (Auto) 7.8 H Lymph # 0.9 L Seg Neutrophils % Abs Lymphs (Manual) D-Dimer POC ABG pH POC ABG pCO2 POC ABG pO2 Sodium Potassium Chloride 108.8 H Carbon Dioxide BUN Creatinine 0.4 L Glucose POC Glucose Calcium 8.1 L AST ALT Lactate Dehydrogenase C-Reactive Protein Total Protein Albumin Triglycerides Lymph Enumerat CD4/CD8 % CD3 Cells Absolute CD3 Count % CD4 Cells Absolute CD4 Count % CD8 Cells Absolute CD8 Count % CD19 Cells Absolute CD19 Count HIV-1 RNA PCR copies/ml HIV-1 RNA (PCR) log HIV-1 Genotyping Miscellaneous Test Crossmatch Allied health notes reviewed: nursing
[2018-08-11] MEDS: VIREAD PO SCH (17:05)
[2018-08-11] MEDS: VALGANCICLOVIR FEEDTUBE SCH ×2 (17:07→22:36)
[2018-08-12] MEDS: NACL 0.9% 1000 ML 1,000 ML IV SCH ×2 (05:35→16:43)
[2018-08-12 05:44] LABS: Eosinophils # (Auto) 0.2 K/mm3 (0.0-0.4); Eosinophils % (Auto) 7.1 % (0.0-4.3); Hematocrit 28.4 % (35.5-45.6); Hemoglobin 9.5 gm/dl (11.8-15.2); Lymphocytes # (Auto) 0.9 K/mm3 (1.2-5.4); Mean Corpuscular HGB Conc 33 % (32-34); Mean Corpuscular Volume 94 fl (84-94); Monocytes # (Auto) 0.2 K/mm3 (0.0-0.8); Monocytes % (Auto) 6.8 % (0.0-7.3); Platelet Count 448 K/mm3 (140-440); Red Blood Count 3.04 M/mm3 (3.65-5.03)
[2018-08-12 06:20] LABS: Alanine Aminotransferase 54 units/L (7-56); Albumin 2.2 g/dL (3.9-5); BUN/Creatinine Ratio 35; Blood Urea Nitrogen 14 mg/dL (9-20); Calcium 8.1 mg/dL (8.4-10.2); Hemolysis Index 25
[2018-08-12] MEDS: HEPARIN SUB-Q SCH ×3 (10:46→22:38)
[2018-08-12] MEDS: EMTRIVA PO SCH (10:47)
[2018-08-12] MEDS: TIVICAY PO SCH (10:47)
[2018-08-12] MEDS: CARDURA PO SCH (10:47)
[2018-08-12] MEDS: PEPCID PO SCH ×2 (10:48→22:36)
[2018-08-12] MEDS: VIREAD PO SCH (10:48)
[2018-08-12] MEDS: SODIUM CHLORIDE FLUSH SYRINGE 10 ML IV SCH ×2 (10:49→22:37)
[2018-08-12] MEDS: BACTRIM 200-40 MG/5 ML PO SCH (10:49)
[2018-08-12] MEDS: KENALOG TP SCH ×2 (10:51→22:37)
[2018-08-12] MEDS: VALGANCICLOVIR FEEDTUBE SCH ×3 (11:14→22:36)
--- NOTE | 2018-08-12 11:40 | Progress Note ---
Assessment and Plan Patient is a 37 yo man with a history of HIV and tobacco dependency who presents from [facility] to [facility] ED with sob and cough. Pt admitted to IMCU and initiated on Pneumonia protocol. Chest CT showed bilateral patchy and somewhat confluent alveolar infiltrates and interstitial infiltrates. Patient required emergent intubation , unable to wean , vent dependent , s/p trach and PEG and very resistant hypoxia. Clinically stable except for hypoxia Completed treatment for PNA. 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 weaned off trach. Still with a and PEG. - Acute hypoxic respiratory failure vent dependent > 96 hrs. off vent and s/p Trach and PEG placement, -s/p PEG : PEG feeds per protocol - ordered for repeat speech eval - pending Hypokalemia: Repeat forte further Trend -Sepsis present on admission - due to bilateral pneumonia /MRSA tracheal aspirate + PCP s/p ABX per ID, Isolation precautions, cont MRSA isolation -Pneumonia (pneumocystis jirovecii pneumonia positive stain): also MRSA Completed linezolid x 10 days until 07/23. S/p 21 days bactrim IV until 07/31/2018. 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 - continue valganciclovir 900 mg PO BID D19 -History of HIV-AIDS; noncompliance with medications per ID, ID following - continue bactrim DS 1 tab q day for PJP prophylaxis - continue HIV therapy: emtricitabine, tenofovir and dolutegravir (started on 08/07/2018) - Azithromycin prophylaxis is not needed since patient is now on ART -Diarrhea: Improved -Severe Malnutrition : [employer] following -Acute blood loss anemia; received 2 units PRBC, hb now stable - Elevated d dimers: CTA chest Neg PE Monitor closely and adjust the management as needed Disposition: Discharge pending on placement. Case management/social workers engaged Subjective Date of service: 08/12/18 Principal diagnosis: Acute hypoxemic resp failure; Bilateral pneumonia (PJP); HIV/AIDS Interval history: Underlying acquired in bed, in no acute distress. Denies any fever. No chills. Objective - Exam Narrative Exam: Constitutional: Lying in bed, ematiated. in no distress Head: Normocephalic atraumatic Eyes: Pupils are equal round and reactive to light Nose: No enlarged turbinates, no septal deviation. Mouth: Moist mucous membranes. Neck: Supple no thyromegaly. No bruit. No JVD Heart: Regular rate and rhythm, S1-S2 normal. No rubs murmurs or gallop Lungs: Clear to auscultation bilaterally. no rales or rhonchi Abdomen: Soft, nontender. Bowel sound are present. PEG tube in place Extremities: No edema, no cyanosis, no clubbing. Neuro: Alert oriented Oriented x3. No focal sensory or motor deficit. Skin: No rashes or hyperpigmented spots Musculoskeletal system: No joint pain or swelling, Has contractures Hematological: No petechia or subcutanous hemorrhages. Immunological: No multiple septic spots on the skin Lymphatic: No generalized lymphadenopathy Psychiatry: Euthymic. Calm. - Constitutional Vitals: Vital Signs - 12hr 08/11/18 08/12/18 08/12/18 23:52 00:20 02:05 Temperature 99.0 F Pulse Rate 99 H Respiratory 16 Rate Blood Pressure 88/46 98/53 O2 Sat by Pulse 95 Oximetry O2 Sat by Pulse 98 Oximetry [ Assessment] 08/12/18 08/12/18 08/12/18 05:38 08:37 10:47 Temperature 98.0 F Pulse Rate 88 Respiratory 16 Rate Blood Pressure 104/60 104/60 O2 Sat by Pulse 98 99 Oximetry O2 Sat by Pulse Oximetry [ Assessment] - Labs CBC & Chem 7: 08/12/18 04:38 08/12/18 04:38 Labs: Abnormal lab results 08/12/18 08/12/18 08/12/18 Range/Units 00:00 04:38 04:38 WBC 3.0 L (4.5-11.0) K/mm3 RBC 3.04 L (3.65-5.03) M/mm3 Hgb 9.5 L (11.8-15.2) gm/dl Hct 28.4 L (35.5-45.6) % RDW 19.0 H (13.2-15.2) % Plt Count 448 H (140-440) K/mm3 Eos % (Auto) 7.1 H (0.0-4.3) % Lymph # 0.9 L (1.2-5.4) K/mm3 Seg Neutrophils # 1.6 L (1.8-7.7) K/mm3 Potassium 3.4 L (3.6-5.0) mmol/L Chloride 110.1 H (98-107) mmol/L Carbon Dioxide 18 L (22-30) mmol/L Creatinine 0.4 L (0.8-1.5) mg/dL POC Glucose 106 H (70-105) Calcium 8.1 L (8.4-10.2) mg/dL AST 41 H (5-40) units/L Total Protein 5.8 L (6.3-8.2) g/dL Albumin 2.2 L (3.9-5) g/dL
[2018-08-12] MEDS ORDERED: ZOFRAN IV PRN (14:05)
[2018-08-12] MEDS ORDERED: PEPTO BISMOL PO PRN (15:00)
--- NOTE | 2018-08-12 15:36 | Progress Note ---
Assessment and Plan Acute hypoxemic respiratory failure, on mechanical ventilatory support. Bilateral pneumonia, high suspicion for Pneumocystis jiroveci pneumonia. MRSA Pneumonia Human immunodeficiency virus/acquired immunodeficiency syndrome,noncompliant with therapy. Hyponatremia. Severe protein calorie malnutrition. Elevated D-dimer. Tobacco use disorder. - resume daytime capping trials as tolerated (will shoot for RTC capping at this point) - tentative decanulation soon (monday) - continue to wean supplemental oxygen to keep O2 sats 88-90% acutely - continue Seroquel but tapering slowly - continue bronchodilators with pulmonary hygiene per RT - prn ABG's at this point - continue GI & VTE prophylaxis - prn CXR's at this point - continue Anti-infectives and ART per ID rec's - Avoid nephrotoxic agents, adjust all medications for CrCL - Tube feedings as tolerated - Accuchecks with glycemic control. Target glucose of 140-180 mg/dL - Maintenance of sleep -wake cycle - continue mobility protocol for pressure ulcer prophylaxis - Influenza and pneumonia vaccination per protocol CODE STATUS: FULL CODE Subjective Date of service: 08/12/18 Principal diagnosis: Acute hypoxemic resp failure; Bilateral pneumonia (PJP); HIV/AIDS Interval history: Patient is seen today for: Acute hypoxemic respiratory failure, on mechanical ventilatory support; Bilateral pneumonia, high suspicion for Pneumocystis jiroveci pneumonia; Human immunodeficiency virus/acquired immunodeficiency syndrome,noncompliant with therapy; Hyponatremia; Severe protein calorie malnutrition. Seen and examined at bedside; 24-hour events reviewed; nursing and respiratory care staff consulted; no adverse overnight events reported to me; resting peacefully in bed; Objective Vital Signs - 12hr 08/12/18 08/12/18 08/12/18 05:38 08:37 10:47 Temperature 98.0 F Pulse Rate 88 Respiratory 16 Rate Blood Pressure 104/60 104/60 O2 Sat by Pulse 98 99 Oximetry 08/12/18 12:22 Temperature 98.5 F Pulse Rate 100 H Respiratory 18 Rate Blood Pressure 113/75 O2 Sat by Pulse 98 Oximetry Constitutional: no acute distress, other (young AAM; normocephalic and atraumatic) Eyes: non-icteric ENT: oropharynx moist, other (mallampati 2) Neck: supple, no lymphadenopathy, no JVD, other (+ midline tracheostomy tube in place) Effort: mildly labored Ascultation: Bilateral: diminished breath sounds, rales, rhonchi Percussion: Bilateral: not dull Cardiovascular: regular rate and rhythm, other (S1,S2, no murmurs, gallops or rubs) Gastrointestinal: normoactive bowel sounds, soft, non-tender, non-distended Integumentary: normal Extremities: no cyanosis, no edema, pulses normal, no ischemia or petechiae Neurologic: normal mental status, non-focal exam, pupils equal and round, CN II- XII normal, motor strength normal and Psychiatric: mood appropriate, affect normal CBC and BMP: 08/12/18 04:38 08/12/18 04:38 ABG, PT/INR, D-dimer: ABG POC ABG pH 7.507 (7.35-7.45) H 08/06/18 22:01 POC ABG pCO2 33.6 (35-45) L 08/06/18 22:01 POC ABG pO2 113 (80-105) H 08/06/18 22:01 POC ABG HCO3 26.6 (22-26 mml/L) 08/06/18 22:01 POC ABG Total CO2 28 (23-27mmol/L) 08/06/18 22:01 POC ABG O2 Sat 99 08/06/18 22:01 PT/INR, D-dimer 1298.70 ng/mlDDU (0-234) H 07/11/18 15:04 Abnormal lab findings: Abnormal Labs 07/11/18 07/11/18 07/11/18 14:06 14:06 15:04 WBC RBC 3.30 L Hgb 9.6 L Hct 28.7 L MCHC RDW Plt Count Lymph % (Auto) Eos % (Auto) Lymph # Seg Neutrophils % Seg Neutrophils # Abs Lymphs (Manual) D-Dimer 1298.70 H POC ABG pH POC ABG pCO2 POC ABG pO2 Sodium 132 L Potassium Chloride Carbon Dioxide BUN Creatinine 0.6 L Glucose 103 H POC Glucose Calcium 7.3 L AST ALT Lactate Dehydrogenase C-Reactive Protein Total Protein Albumin 2.1 L Triglycerides Lymph Enumerat CD4/CD8 % CD3 Cells Absolute CD3 Count % CD4 Cells Absolute CD4 Count % CD8 Cells Absolute CD8 Count % CD19 Cells Absolute CD19 Count HIV-1 RNA PCR copies/ml HIV-1 RNA (PCR) log HIV-1 Genotyping Miscellaneous Test Crossmatch 07/11/18 07/11/18 07/12/18 17:36 22:15 00:25 WBC RBC Hgb Hct MCHC RDW Plt Count Lymph % (Auto) Eos % (Auto) Lymph # Seg Neutrophils % Seg Neutrophils # Abs Lymphs (Manual) D-Dimer POC ABG pH 7.289 L POC ABG pCO2 POC ABG pO2 66 L Sodium Potassium Chloride Carbon Dioxide BUN Creatinine Glucose POC Glucose Calcium AST ALT Lactate Dehydrogenase 591 H C-Reactive Protein Total Protein Albumin Triglycerides Lymph Enumerat CD4/CD8 % CD3 Cells Absolute CD3 Count % CD4 Cells Absolute CD4 Count % CD8 Cells Absolute CD8 Count % CD19 Cells Absolute CD19 Count HIV-1 RNA PCR copies/ml HIV-1 RNA (PCR) log HIV-1 Genotyping Miscellaneous Test see below H Crossmatch 07/12/18 07/12/18 07/12/18 00:41 05:37 19:29 WBC RBC Hgb Hct MCHC RDW Plt Count Lymph % (Auto) Eos % (Auto) Lymph # Seg Neutrophils % Seg Neutrophils # Abs Lymphs (Manual) D-Dimer POC ABG pH 7.302 L 7.275 L POC ABG pCO2 47.1 H POC ABG pO2 Sodium Potassium Chloride Carbon Dioxide BUN Creatinine Glucose POC Glucose Calcium AST ALT Lactate Dehydrogenase 731 H C-Reactive Protein Total Protein Albumin Triglycerides Lymph Enumerat CD4/CD8 % CD3 Cells Absolute CD3 Count % CD4 Cells Absolute CD4 Count % CD8 Cells Absolute CD8 Count % CD19 Cells Absolute CD19 Count HIV-1 RNA PCR copies/ml HIV-1 RNA (PCR) log HIV-1 Genotyping Miscellaneous Test Crossmatch 07/12/18 07/12/18 07/13/18 19:29 19:29 04:03 WBC RBC Hgb Hct MCHC RDW Plt Count Lymph % (Auto) Eos % (Auto) Lymph # Seg Neutrophils % Seg Neutrophils # Abs Lymphs (Manual) 220 L D-Dimer POC ABG pH 7.254 L POC ABG pCO2 49.2 H POC ABG pO2 Sodium Potassium Chloride Carbon Dioxide BUN Creatinine Glucose POC Glucose Calcium AST ALT Lactate Dehydrogenase C-Reactive Protein Total Protein Albumin Triglycerides Lymph Enumerat CD4/CD8 0.04 L % CD3 Cells 88 H Absolute CD3 Count 194 L % CD4 Cells 3 L Absolute CD4 Count 7 L % CD8 Cells 75 H Absolute CD8 Count 177 L % CD19 Cells 4 L Absolute CD19 Count 9 L HIV-1 RNA PCR copies/ml 501124 H HIV-1 RNA (PCR) log 5.72 H HIV-1 Genotyping Miscellaneous Test Crossmatch 07/13/18 07/13/18 07/13/18 05:46 12:23 18:31 WBC RBC Hgb Hct MCHC RDW Plt Count Lymph % (Auto) Eos % (Auto) Lymph # Seg Neutrophils % Seg Neutrophils # Abs Lymphs (Manual) D-Dimer POC ABG pH POC ABG pCO2 POC ABG pO2 Sodium Potassium Chloride Carbon Dioxide BUN Creatinine Glucose POC Glucose 68 L 106 H 112 H Calcium AST ALT Lactate Dehydrogenase C-Reactive Protein Total Protein Albumin Triglycerides Lymph Enumerat CD4/CD8 % CD3 Cells Absolute CD3 Count % CD4 Cells Absolute CD4 Count % CD8 Cells Absolute CD8 Count % CD19 Cells Absolute CD19 Count HIV-1 RNA PCR copies/ml HIV-1 RNA (PCR) log HIV-1 Genotyping Miscellaneous Test Crossmatch 07/14/18 07/14/18 07/14/18 04:19 05:36 05:36 WBC RBC 2.99 L Hgb 8.8 L Hct 25.7 L MCHC RDW 15.5 H Plt Count Lymph % (Auto) Eos % (Auto) Lymph # Seg Neutrophils % Seg Neutrophils # Abs Lymphs (Manual) D-Dimer POC ABG pH 7.337 L POC ABG pCO2 POC ABG pO2 Sodium 135 L Potassium Chloride Carbon Dioxide 21 L BUN Creatinine 0.7 L Glucose 123 H POC Glucose Calcium 8.2 L AST ALT Lactate Dehydrogenase C-Reactive Protein Total Protein Albumin Triglycerides Lymph Enumerat CD4/CD8 % CD3 Cells Absolute CD3 Count % CD4 Cells Absolute CD4 Count % CD8 Cells Absolute CD8 Count % CD19 Cells Absolute CD19 Count HIV-1 RNA PCR copies/ml HIV-1 RNA (PCR) log HIV-1 Genotyping Miscellaneous Test Crossmatch 07/14/18 07/14/18 07/14/18 12:14 14:33 17:18 WBC RBC Hgb Hct MCHC RDW Plt Count Lymph % (Auto) Eos % (Auto) Lymph # Seg Neutrophils % Seg Neutrophils # Abs Lymphs (Manual) D-Dimer POC ABG pH 7.325 L POC ABG pCO2 POC ABG pO2 75 L Sodium Potassium Chloride Carbon Dioxide BUN Creatinine Glucose POC Glucose 174 H 114 H Calcium AST ALT Lactate Dehydrogenase C-Reactive Protein Total Protein Albumin Triglycerides Lymph Enumerat CD4/CD8 % CD3 Cells Absolute CD3 Count % CD4 Cells Absolute CD4 Count % CD8 Cells Absolute CD8 Count % CD19 Cells Absolute CD19 Count HIV-1 RNA PCR copies/ml HIV-1 RNA (PCR) log HIV-1 Genotyping Miscellaneous Test Crossmatch 07/15/18 07/15/18 07/15/18 00:17 12:29 12:29 WBC RBC 2.64 L Hgb 7.5 L Hct 22.9 L MCHC RDW 15.4 H Plt Count Lymph % (Auto) 7.0 L Eos % (Auto) Lymph # 0.4 L Seg Neutrophils % 89.6 H Seg Neutrophils # Abs Lymphs (Manual) D-Dimer POC ABG pH POC ABG pCO2 POC ABG pO2 Sodium Potassium Chloride Carbon Dioxide BUN Creatinine 0.6 L Glucose 124 H POC Glucose 113 H Calcium 7.3 L AST ALT Lactate Dehydrogenase C-Reactive Protein Total Protein Albumin Triglycerides Lymph Enumerat CD4/CD8 % CD3 Cells Absolute CD3 Count % CD4 Cells Absolute CD4 Count % CD8 Cells Absolute CD8 Count % CD19 Cells Absolute CD19 Count HIV-1 RNA PCR copies/ml HIV-1 RNA (PCR) log HIV-1 Genotyping Miscellaneous Test Crossmatch 07/15/18 07/16/18 07/16/18 14:09 04:46 07:21 WBC RBC Hgb Hct MCHC RDW Plt Count Lymph % (Auto) Eos % (Auto) Lymph # Seg Neutrophils % Seg Neutrophils # Abs Lymphs (Manual) D-Dimer POC ABG pH 7.282 L POC ABG pCO2 52.6 H POC ABG pO2 63 L Sodium Potassium Chloride Carbon Dioxide BUN Creatinine Glucose POC Glucose Calcium AST ALT Lactate Dehydrogenase C-Reactive Protein 2.70 H Total Protein Albumin Triglycerides Lymph Enumerat CD4/CD8 % CD3 Cells Absolute CD3 Count % CD4 Cells Absolute CD4 Count % CD8 Cells Absolute CD8 Count % CD19 Cells Absolute CD19 Count HIV-1 RNA PCR copies/ml HIV-1 RNA (PCR) log HIV-1 Genotyping Miscellaneous Test Flexitest 1 H Crossmatch 07/16/18 07/16/18 07/16/18 07:21 07:21 16:16 WBC RBC 2.48 L Hgb 7.2 L Hct 21.5 L MCHC RDW 15.7 H Plt Count Lymph % (Auto) Eos % (Auto) Lymph # Seg Neutrophils % Seg Neutrophils # Abs Lymphs (Manual) D-Dimer POC ABG pH 7.251 L POC ABG pCO2 62.2 H POC ABG pO2 Sodium 136 L Potassium Chloride Carbon Dioxide BUN Creatinine 0.6 L Glucose 118 H POC Glucose Calcium 7.5 L AST ALT Lactate Dehydrogenase C-Reactive Protein Total Protein Albumin Triglycerides Lymph Enumerat CD4/CD8 % CD3 Cells Absolute CD3 Count % CD4 Cells Absolute CD4 Count % CD8 Cells Absolute CD8 Count % CD19 Cells Absolute CD19 Count HIV-1 RNA PCR copies/ml HIV-1 RNA (PCR) log HIV-1 Genotyping Miscellaneous Test Crossmatch 07/17/18 07/18/18 07/18/18 04:01 01:10 03:10 WBC RBC 2.20 L Hgb 6.5 L Hct 19.2 L* MCHC RDW 16.0 H Plt Count Lymph % (Auto) 7.2 L Eos % (Auto) Lymph # 0.5 L Seg Neutrophils % 89.9 H Seg Neutrophils # Abs Lymphs (Manual) D-Dimer POC ABG pH 7.245 L POC ABG pCO2 63.8 H POC ABG pO2 75 L Sodium Potassium Chloride Carbon Dioxide BUN Creatinine Glucose POC Glucose Calcium AST ALT Lactate Dehydrogenase C-Reactive Protein Total Protein Albumin Triglycerides Lymph Enumerat CD4/CD8 % CD3 Cells Absolute CD3 Count % CD4 Cells Absolute CD4 Count % CD8 Cells Absolute CD8 Count % CD19 Cells Absolute CD19 Count HIV-1 RNA PCR copies/ml HIV-1 RNA (PCR) log HIV-1 Genotyping Miscellaneous Test Crossmatch See Detail 07/18/18 07/18/18 07/18/18 04:54 05:02 12:59 WBC RBC Hgb Hct MCHC RDW Plt Count Lymph % (Auto) Eos % (Auto) Lymph # Seg Neutrophils % Seg Neutrophils # Abs Lymphs (Manual) D-Dimer POC ABG pH 7.615 H POC ABG pCO2 32.6 L 48.8 H POC ABG pO2 79 L 118 H Sodium Potassium Chloride Carbon Dioxide BUN Creatinine Glucose POC Glucose 164 H Calcium AST ALT Lactate Dehydrogenase C-Reactive Protein Total Protein Albumin Triglycerides Lymph Enumerat CD4/CD8 % CD3 Cells Absolute CD3 Count % CD4 Cells Absolute CD4 Count % CD8 Cells Absolute CD8 Count % CD19 Cells Absolute CD19 Count HIV-1 RNA PCR copies/ml HIV-1 RNA (PCR) log HIV-1 Genotyping Miscellaneous Test Crossmatch 07/18/18 07/18/18 07/19/18 18:25 20:39 03:53 WBC RBC Hgb Hct MCHC RDW Plt Count Lymph % (Auto) Eos % (Auto) Lymph # Seg Neutrophils % Seg Neutrophils # Abs Lymphs (Manual) D-Dimer POC ABG pH 7.339 L POC ABG pCO2 59.9 H 65.0 H POC ABG pO2 69 L Sodium Potassium Chloride Carbon Dioxide BUN Creatinine Glucose POC Glucose 155 H Calcium AST ALT Lactate Dehydrogenase C-Reactive Protein Total Protein Albumin Triglycerides Lymph Enumerat CD4/CD8 % CD3 Cells Absolute CD3 Count % CD4 Cells Absolute CD4 Count % CD8 Cells Absolute CD8 Count % CD19 Cells Absolute CD19 Count HIV-1 RNA PCR copies/ml HIV-1 RNA (PCR) log HIV-1 Genotyping Miscellaneous Test Crossmatch 07/19/18 07/19/18 07/19/18 08:10 08:10 10:52 WBC RBC 2.51 L Hgb 7.4 L Hct 22.0 L MCHC RDW 15.5 H Plt Count Lymph % (Auto) Eos % (Auto) Lymph # Seg Neutrophils % Seg Neutrophils # Abs Lymphs (Manual) D-Dimer POC ABG pH POC ABG pCO2 POC ABG pO2 Sodium 130 L Potassium Chloride 89.0 L Carbon Dioxide 33 H BUN Creatinine 0.4 L Glucose 150 H POC Glucose 173 H Calcium 7.5 L AST ALT Lactate Dehydrogenase C-Reactive Protein Total Protein Albumin Triglycerides Lymph Enumerat CD4/CD8 % CD3 Cells Absolute CD3 Count % CD4 Cells Absolute CD4 Count % CD8 Cells Absolute CD8 Count % CD19 Cells Absolute CD19 Count HIV-1 RNA PCR copies/ml HIV-1 RNA (PCR) log HIV-1 Genotyping Miscellaneous Test Crossmatch 07/19/18 07/19/18 07/20/18 17:06 23:47 04:37 WBC RBC Hgb Hct MCHC RDW Plt Count Lymph % (Auto) Eos % (Auto) Lymph # Seg Neutrophils % Seg Neutrophils # Abs Lymphs (Manual) D-Dimer POC ABG pH POC ABG pCO2 58.5 H POC ABG pO2 67 L Sodium Potassium Chloride Carbon Dioxide BUN Creatinine Glucose POC Glucose 117 H 114 H Calcium AST ALT Lactate Dehydrogenase C-Reactive Protein Total Protein Albumin Triglycerides Lymph Enumerat CD4/CD8 % CD3 Cells Absolute CD3 Count % CD4 Cells Absolute CD4 Count % CD8 Cells Absolute CD8 Count % CD19 Cells Absolute CD19 Count HIV-1 RNA PCR copies/ml HIV-1 RNA (PCR) log HIV-1 Genotyping Miscellaneous Test Crossmatch 07/20/18 07/20/18 07/21/18 06:20 06:20 04:18 WBC RBC 2.69 L Hgb 7.8 L Hct 23.6 L MCHC RDW 15.5 H Plt Count Lymph % (Auto) Eos % (Auto) Lymph # Seg Neutrophils % Seg Neutrophils # Abs Lymphs (Manual) D-Dimer POC ABG pH 7.456 H POC ABG pCO2 60.4 H POC ABG pO2 64 L Sodium 134 L Potassium Chloride 89.2 L Carbon Dioxide 38 H BUN Creatinine 0.7 L D Glucose 120 H POC Glucose Calcium 7.6 L AST ALT Lactate Dehydrogenase C-Reactive Protein Total Protein Albumin Triglycerides Lymph Enumerat CD4/CD8 % CD3 Cells Absolute CD3 Count % CD4 Cells Absolute CD4 Count % CD8 Cells Absolute CD8 Count % CD19 Cells Absolute CD19 Count HIV-1 RNA PCR copies/ml HIV-1 RNA (PCR) log HIV-1 Genotyping Miscellaneous Test Crossmatch 07/21/18 07/21/18 07/22/18 04:35 04:35 04:16 WBC RBC 2.62 L 2.37 L Hgb 7.7 L 7.0 L Hct 23.1 L 21.1 L MCHC RDW 15.4 H Plt Count Lymph % (Auto) Eos % (Auto) Lymph # Seg Neutrophils % Seg Neutrophils # Abs Lymphs (Manual) D-Dimer POC ABG pH POC ABG pCO2 POC ABG pO2 Sodium 129 L Potassium 5.3 H Chloride 85.3 L Carbon Dioxide 38 H BUN Creatinine 0.4 L Glucose 108 H POC Glucose Calcium 8.0 L AST ALT Lactate Dehydrogenase C-Reactive Protein Total Protein Albumin Triglycerides Lymph Enumerat CD4/CD8 % CD3 Cells Absolute CD3 Count % CD4 Cells Absolute CD4 Count % CD8 Cells Absolute CD8 Count % CD19 Cells Absolute CD19 Count HIV-1 RNA PCR copies/ml HIV-1 RNA (PCR) log HIV-1 Genotyping Miscellaneous Test Crossmatch 07/22/18 07/23/18 07/23/18 04:16 03:25 12:45 WBC RBC Hgb Hct MCHC RDW Plt Count Lymph % (Auto) Eos % (Auto) Lymph # Seg Neutrophils % Seg Neutrophils # Abs Lymphs (Manual) D-Dimer POC ABG pH POC ABG pCO2 69.4 H POC ABG pO2 Sodium 132 L 125 L D Potassium 5.4 H 5.3 H Chloride 87.4 L 80.3 L Carbon Dioxide 38 H 38 H BUN Creatinine 0.4 L 0.3 L Glucose 117 H 124 H POC Glucose Calcium 7.5 L 7.4 L AST ALT Lactate Dehydrogenase C-Reactive Protein Total Protein Albumin Triglycerides Lymph Enumerat CD4/CD8 % CD3 Cells Absolute CD3 Count % CD4 Cells Absolute CD4 Count % CD8 Cells Absolute CD8 Count % CD19 Cells Absolute CD19 Count HIV-1 RNA PCR copies/ml HIV-1 RNA (PCR) log HIV-1 Genotyping Miscellaneous Test Crossmatch 07/23/18 07/24/18 07/24/18 23:52 04:30 04:30 WBC RBC 2.12 L Hgb 6.3 L Hct 18.9 L* MCHC RDW Plt Count Lymph % (Auto) Eos % (Auto) Lymph # Seg Neutrophils % Seg Neutrophils # Abs Lymphs (Manual) D-Dimer POC ABG pH POC ABG pCO2 POC ABG pO2 Sodium 127 L Potassium 5.2 H Chloride 83.9 L Carbon Dioxide 39 H BUN Creatinine 0.3 L Glucose POC Glucose 118 H Calcium 7.5 L AST ALT Lactate Dehydrogenase C-Reactive Protein Total Protein Albumin Triglycerides Lymph Enumerat CD4/CD8 % CD3 Cells Absolute CD3 Count % CD4 Cells Absolute CD4 Count % CD8 Cells Absolute CD8 Count % CD19 Cells Absolute CD19 Count HIV-1 RNA PCR copies/ml HIV-1 RNA (PCR) log HIV-1 Genotyping Miscellaneous Test Crossmatch 07/24/18 07/24/18 07/24/18 05:11 05:30 07:50 WBC RBC Hgb Hct MCHC RDW Plt Count Lymph % (Auto) Eos % (Auto) Lymph # Seg Neutrophils % Seg Neutrophils # Abs Lymphs (Manual) D-Dimer POC ABG pH 7.462 H POC ABG pCO2 58.7 H POC ABG pO2 79 L Sodium Potassium Chloride Carbon Dioxide BUN Creatinine Glucose POC Glucose 145 H Calcium AST ALT Lactate Dehydrogenase C-Reactive Protein Total Protein Albumin Triglycerides Lymph Enumerat CD4/CD8 % CD3 Cells Absolute CD3 Count % CD4 Cells Absolute CD4 Count % CD8 Cells Absolute CD8 Count % CD19 Cells Absolute CD19 Count HIV-1 RNA PCR copies/ml HIV-1 RNA (PCR) log HIV-1 Genotyping Miscellaneous Test Crossmatch See Detail 07/25/18 07/25/18 07/25/18 09:30 09:30 17:05 WBC RBC 2.99 L Hgb 9.1 L Hct 27.0 L D MCHC RDW Plt Count Lymph % (Auto) Eos % (Auto) Lymph # Seg Neutrophils % Seg Neutrophils # Abs Lymphs (Manual) D-Dimer POC ABG pH POC ABG pCO2 POC ABG pO2 Sodium 131 L Potassium 5.1 H Chloride 84.4 L Carbon Dioxide 39 H BUN Creatinine 0.3 L Glucose 133 H POC Glucose Calcium 8.0 L AST ALT Lactate Dehydrogenase C-Reactive Protein Total Protein Albumin Triglycerides Lymph Enumerat CD4/CD8 % CD3 Cells Absolute CD3 Count % CD4 Cells Absolute CD4 Count % CD8 Cells Absolute CD8 Count % CD19 Cells Absolute CD19 Count HIV-1 RNA PCR copies/ml HIV-1 RNA (PCR) log HIV-1 Genotyping Detected H Miscellaneous Test Crossmatch 07/26/18 07/26/18 07/26/18 00:18 04:07 05:50 WBC RBC 3.01 L Hgb 9.4 L Hct 27.2 L MCHC 35 H RDW Plt Count Lymph % (Auto) 10.4 L Eos % (Auto) Lymph # 0.9 L Seg Neutrophils % 84.2 H Seg Neutrophils # Abs Lymphs (Manual) D-Dimer POC ABG pH 7.456 H POC ABG pCO2 61.4 H POC ABG pO2 68 L Sodium 135 L Potassium 5.5 H Chloride 88.4 L Carbon Dioxide 38 H BUN Creatinine 0.3 L Glucose POC Glucose Calcium AST ALT Lactate Dehydrogenase C-Reactive Protein Total Protein Albumin Triglycerides Lymph Enumerat CD4/CD8 % CD3 Cells Absolute CD3 Count % CD4 Cells Absolute CD4 Count % CD8 Cells Absolute CD8 Count % CD19 Cells Absolute CD19 Count HIV-1 RNA PCR copies/ml HIV-1 RNA (PCR) log HIV-1 Genotyping Miscellaneous Test Crossmatch 07/26/18 07/26/18 07/27/18 05:50 14:56 14:26 WBC RBC Hgb Hct MCHC RDW Plt Count Lymph % (Auto) Eos % (Auto) Lymph # Seg Neutrophils % Seg Neutrophils # Abs Lymphs (Manual) D-Dimer POC ABG pH 7.472 H POC ABG pCO2 66.0 H 57.4 H POC ABG pO2 56 L 59 L Sodium 131 L Potassium 5.1 H Chloride 84.5 L Carbon Dioxide 39 H BUN Creatinine 0.3 L Glucose POC Glucose Calcium AST 78 H ALT 71 H Lactate Dehydrogenase C-Reactive Protein Total Protein 6.0 L Albumin 2.5 L Triglycerides Lymph Enumerat CD4/CD8 % CD3 Cells Absolute CD3 Count % CD4 Cells Absolute CD4 Count % CD8 Cells Absolute CD8 Count % CD19 Cells Absolute CD19 Count HIV-1 RNA PCR copies/ml HIV-1 RNA (PCR) log HIV-1 Genotyping Miscellaneous Test Crossmatch 07/28/18 07/28/18 07/28/18 05:20 05:20 05:20 WBC RBC 3.21 L Hgb 10.0 L Hct 29.9 L MCHC RDW 15.4 H Plt Count 451 H Lymph % (Auto) Eos % (Auto) Lymph # Seg Neutrophils % 81.6 H Seg Neutrophils # Abs Lymphs (Manual) D-Dimer POC ABG pH POC ABG pCO2 POC ABG pO2 Sodium 136 L Potassium Chloride 89.9 L Carbon Dioxide 38 H BUN Creatinine 0.4 L Glucose POC Glucose Calcium 8.1 L AST 104 H ALT 113 H Lactate Dehydrogenase C-Reactive Protein Total Protein 6.2 L Albumin 2.5 L Triglycerides 209 H Lymph Enumerat CD4/CD8 % CD3 Cells Absolute CD3 Count % CD4 Cells Absolute CD4 Count % CD8 Cells Absolute CD8 Count % CD19 Cells Absolute CD19 Count HIV-1 RNA PCR copies/ml HIV-1 RNA (PCR) log HIV-1 Genotyping Miscellaneous Test Crossmatch 07/28/18 07/28/18 07/29/18 06:08 17:22 04:28 WBC RBC Hgb Hct MCHC RDW Plt Count Lymph % (Auto) Eos % (Auto) Lymph # Seg Neutrophils % Seg Neutrophils # Abs Lymphs (Manual) D-Dimer POC ABG pH 7.328 L POC ABG pCO2 65.7 H 55.1 H POC ABG pO2 70 L 113 H 76 L Sodium Potassium Chloride Carbon Dioxide BUN Creatinine Glucose POC Glucose Calcium AST ALT Lactate Dehydrogenase C-Reactive Protein Total Protein Albumin Triglycerides Lymph Enumerat CD4/CD8 % CD3 Cells Absolute CD3 Count % CD4 Cells Absolute CD4 Count % CD8 Cells Absolute CD8 Count % CD19 Cells Absolute CD19 Count HIV-1 RNA PCR copies/ml HIV-1 RNA (PCR) log HIV-1 Genotyping Miscellaneous Test Crossmatch 08/02/18 08/02/18 08/03/18 06:30 06:30 06:30 WBC RBC 2.96 L 2.78 L Hgb 9.4 L 9.0 L Hct 27.6 L 26.3 L MCHC RDW 18.4 H 19.6 H Plt Count Lymph % (Auto) 11.1 L Eos % (Auto) Lymph # 0.6 L 0.7 L Seg Neutrophils % 84.0 H 79.0 H Seg Neutrophils # Abs Lymphs (Manual) D-Dimer POC ABG pH POC ABG pCO2 POC ABG pO2 Sodium 133 L Potassium Chloride 92.7 L Carbon Dioxide BUN 22 H Creatinine 0.5 L Glucose POC Glucose Calcium 8.1 L AST ALT Lactate Dehydrogenase C-Reactive Protein Total Protein Albumin Triglycerides Lymph Enumerat CD4/CD8 % CD3 Cells Absolute CD3 Count % CD4 Cells Absolute CD4 Count % CD8 Cells Absolute CD8 Count % CD19 Cells Absolute CD19 Count HIV-1 RNA PCR copies/ml HIV-1 RNA (PCR) log HIV-1 Genotyping Miscellaneous Test Crossmatch 08/03/18 08/04/18 08/05/18 06:30 17:13 08:03 WBC RBC 2.77 L Hgb 8.8 L Hct 25.8 L MCHC RDW 20.4 H Plt Count Lymph % (Auto) Eos % (Auto) Lymph # 0.9 L Seg Neutrophils % 76.6 H Seg Neutrophils # Abs Lymphs (Manual) D-Dimer POC ABG pH POC ABG pCO2 POC ABG pO2 Sodium 131 L Potassium Chloride 92.0 L Carbon Dioxide BUN Creatinine 0.3 L Glucose POC Glucose 120 H Calcium 8.0 L AST ALT Lactate Dehydrogenase C-Reactive Protein Total Protein 6.0 L Albumin 2.4 L Triglycerides Lymph Enumerat CD4/CD8 % CD3 Cells Absolute CD3 Count % CD4 Cells Absolute CD4 Count % CD8 Cells Absolute CD8 Count % CD19 Cells Absolute CD19 Count HIV-1 RNA PCR copies/ml HIV-1 RNA (PCR) log HIV-1 Genotyping Miscellaneous Test Crossmatch 08/05/18 08/06/18 08/06/18 08:03 07:38 22:01 WBC RBC Hgb Hct MCHC RDW Plt Count Lymph % (Auto) Eos % (Auto) Lymph # Seg Neutrophils % Seg Neutrophils # Abs Lymphs (Manual) D-Dimer POC ABG pH 7.507 H POC ABG pCO2 33.6 L POC ABG pO2 113 H Sodium 132 L 131 L Potassium 3.5 L Chloride 93.0 L 92.4 L Carbon Dioxide BUN Creatinine 0.3 L 0.4 L Glucose POC Glucose Calcium 8.0 L 8.1 L AST ALT Lactate Dehydrogenase C-Reactive Protein Total Protein Albumin Triglycerides Lymph Enumerat CD4/CD8 % CD3 Cells Absolute CD3 Count % CD4 Cells Absolute CD4 Count % CD8 Cells Absolute CD8 Count % CD19 Cells Absolute CD19 Count HIV-1 RNA PCR copies/ml HIV-1 RNA (PCR) log HIV-1 Genotyping Miscellaneous Test Crossmatch 08/07/18 08/07/18 08/08/18 07:57 07:57 04:38 WBC 4.1 L RBC 3.00 L Hgb 9.4 L Hct 27.9 L MCHC RDW 19.2 H Plt Count Lymph % (Auto) Eos % (Auto) Lymph # Seg Neutrophils % Seg Neutrophils # Abs Lymphs (Manual) D-Dimer POC ABG pH POC ABG pCO2 POC ABG pO2 Sodium 133 L Potassium 3.2 L Chloride 95.9 L Carbon Dioxide BUN Creatinine 0.4 L 0.4 L Glucose 104 H POC Glucose Calcium AST ALT Lactate Dehydrogenase C-Reactive Protein Total Protein Albumin 2.6 L Triglycerides Lymph Enumerat CD4/CD8 % CD3 Cells Absolute CD3 Count % CD4 Cells Absolute CD4 Count % CD8 Cells Absolute CD8 Count % CD19 Cells Absolute CD19 Count HIV-1 RNA PCR copies/ml HIV-1 RNA (PCR) log HIV-1 Genotyping Miscellaneous Test Crossmatch 08/11/18 08/11/18 08/12/18 06:55 06:55 00:00 WBC 3.3 L RBC 2.91 L Hgb 9.2 L Hct 26.9 L MCHC RDW 18.9 H Plt Count 503 H Lymph % (Auto) Eos % (Auto) 7.8 H Lymph # 0.9 L Seg Neutrophils % Seg Neutrophils # Abs Lymphs (Manual) D-Dimer POC ABG pH POC ABG pCO2 POC ABG pO2 Sodium Potassium Chloride 108.8 H Carbon Dioxide BUN Creatinine 0.4 L Glucose POC Glucose 106 H Calcium 8.1 L AST ALT Lactate Dehydrogenase C-Reactive Protein Total Protein Albumin Triglycerides Lymph Enumerat CD4/CD8 % CD3 Cells Absolute CD3 Count % CD4 Cells Absolute CD4 Count % CD8 Cells Absolute CD8 Count % CD19 Cells Absolute CD19 Count HIV-1 RNA PCR copies/ml HIV-1 RNA (PCR) log HIV-1 Genotyping Miscellaneous Test Crossmatch 08/12/18 08/12/18 04:38 04:38 WBC 3.0 L RBC 3.04 L Hgb 9.5 L Hct 28.4 L MCHC RDW 19.0 H Plt Count 448 H Lymph % (Auto) Eos % (Auto) 7.1 H Lymph # 0.9 L Seg Neutrophils % Seg Neutrophils # 1.6 L Abs Lymphs (Manual) D-Dimer POC ABG pH POC ABG pCO2 POC ABG pO2 Sodium Potassium 3.4 L Chloride 110.1 H Carbon Dioxide 18 L BUN Creatinine 0.4 L Glucose POC Glucose Calcium 8.1 L AST 41 H ALT Lactate Dehydrogenase C-Reactive Protein Total Protein 5.8 L Albumin 2.2 L Triglycerides Lymph Enumerat CD4/CD8 % CD3 Cells Absolute CD3 Count % CD4 Cells Absolute CD4 Count % CD8 Cells Absolute CD8 Count % CD19 Cells Absolute CD19 Count HIV-1 RNA PCR copies/ml HIV-1 RNA (PCR) log HIV-1 Genotyping Miscellaneous Test Crossmatch Allied health notes reviewed: nursing
[2018-08-12] MEDS: TYLENOL FEEDTUBE PRN (22:46)
[2018-08-13] MEDS: NACL 0.9% 1000 ML 1,000 ML IV SCH ×2 (02:41→20:45)
[2018-08-13 06:31] LABS: Basophils % (Auto) 0.9 % (0.0-1.8); Eosinophils # (Auto) 0.1 K/mm3 (0.0-0.4); Eosinophils % (Auto) 4.8 % (0.0-4.3); Hematocrit 25.1 % (35.5-45.6); Hemoglobin 8.6 gm/dl (11.8-15.2); Lymphocytes # (Auto) 0.9 K/mm3 (1.2-5.4); Mean Corpuscular HGB Conc 34 % (32-34); Mean Corpuscular Volume 93 fl (84-94); Monocytes # (Auto) 0.3 K/mm3 (0.0-0.8); Monocytes % (Auto) 9.8 % (0.0-7.3); Platelet Count 428 K/mm3 (140-440); Red Blood Count 2.71 M/mm3 (3.65-5.03); Red Cell Distribution Width 19.1 % (13.2-15.2)
[2018-08-13 06:52] LABS: Alanine Aminotransferase 49 units/L (7-56); Albumin 2.4 g/dL (3.9-5); BUN/Creatinine Ratio 28; Blood Urea Nitrogen 11 mg/dL (9-20); Hemolysis Index 3
[2018-08-13] MEDS: HEPARIN SUB-Q SCH ×3 (08:00→20:40)
--- NOTE | 2018-08-13 09:31 | Progress Note ---
Assessment and Plan Cultures: Blood culture 07/11/2018 no growth today. Cryptococcal antigen : negative MRSA PCR: positive Blood culture 07/15/2018: in progress Urine culture 07/15/2018: no growth in 24 hours Sputum culture 07/15/18: MRSA, Jannette CMV PCR 07/15/2018 33,392 copies 08/06/2018 CMV PCR: 363 Assessment: 37 y/o male currently in intermediate with history of HIV infection of unknown duration, noncompliant with antiretroviral medication, severe malnutrition; admitted on 07/11/2018, brought by law enforcement, due to 2-week history of shortness of breath, generalized weakness and productive cough: 1) Sepsis with new septic shock: Resolved. Etiology most likely pneumonia. 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 CMV +/- MRSA. Chest CT showed bilateral patchy and somewhat confluent alveolar infiltrates and interstitial infiltrates. No effusions. Sputum culture 07/15 grew MRSA and Jannette. PJP DFA was also positive. Completed linezolid x 10 days until 07/23. S/p 21 days bactrim IV until 07/31/2018. 3) HIV with AIDS: Patient had not taken his HIV medication for at least 6 months prior due to his incarceration. On admission he reported 40lbs unintentional we ight loss for 2 months and intermittent loose stools over the past 2 weeks. VL 523,000/ CD4=7. Pneumocytosis Jirovecii positive. RPR nonreactive. Hepatitis panel negative. HIV Genotype with wild type, no resistance associated mutations. Was started on HIV therapy: emtricitabine, tenofovir and dolutegravir (started on 08/07/2018). Now on Bactrim prophylaxis. Azithromycin prophylaxis is not needed since patient is now on ART. 4) Diarrhea: continuing. C-Diff culture pending. Stool culture ordered for Ova and parasites. 5) Acute respiratory failure: not better, from pneumonia. improving s/p t nadine/PEG placement 08/01. 6) Anemia: s/p transfusion 7) Facial rash: ? seborrheic dermatitis. improving. 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 Completed 21 days of Valcyte. Additional therapy not needed since patient is now on ARVs and there is no evidence of end organ damage from CMV. Recommendations: - discontinue valganciclovir - continue bactrim DS 1 tab q day for PJP prophylaxis - continue HIV therapy: emtricitabine, tenofovir and dolutegravir (started on 08/07/2018) -Stool culture for ova and parasites ordered -contact isolation for MRSA -f/u c-diff culture [facility] M: [phone] O:[phone] Subjective Date of service: 08/13/18 Principal diagnosis: Acute hypoxemic resp failure; Bilateral pneumonia (PJP); HIV/AIDS Interval history: Patient seen and examined. Asleep, easy to arouse. Reports consistent loose stools. No fevers. Objective - Exam Narrative Exam: Constitutional: Alert, cooperative. No acute distress. Cachexia + Head, Ears, Nose: Normocephalic, atraumatic. External ears, nose normal Eyes: Conjunctivae/corneas clear. No icterus. No ptosis. Neck: trach + Oral: mucosa moist, no ulcers, no thrush Cardiovascular: S1, S2 normal. Respiratory: clear bilaterally. no wheeze GI: Soft, non-tender; bowel sounds normal. No peritoneal signs. G tube + Musculoskeletal: No pedal edema, no cyanosis. Skin: No rash or abscess Hem/Lymphatic: No palpable cervical or supraclavicular nodes. No lymphangitis Psych: no agitation Neurological: Awake, alert, follows commands - Constitutional Vitals: Vital Signs Temp Pulse Resp BP Pulse Ox 98.8 F 100 H 18 102/55 96 08/13/18 06:35 08/13/18 06:35 08/13/18 06:35 08/13/18 06:35 08/13/18 08:06 Temperature -Last 24 Hours Temperature 98.8 F Temperature 97.5 F Temperature 98.3 F Temperature 98.5 F - Labs CBC & Chem 7: 08/13/18 05:58 08/13/18 05:58 Labs: Abnormal lab results 08/12/18 08/13/18 08/13/18 Range/Units 18:13 05:58 05:58 WBC 2.9 L (4.5-11.0) K/mm3 RBC 2.71 L (3.65-5.03) M/mm3 Hgb 8.6 L (11.8-15.2) gm/dl Hct 25.1 L (35.5-45.6) % RDW 19.1 H (13.2-15.2) % [place] % (Auto) 9.8 H (0.0-7.3) % Eos % (Auto) 4.8 H (0.0-4.3) % Lymph # 0.9 L (1.2-5.4) K/mm3 Seg Neutrophils # 1.6 L (1.8-7.7) K/mm3 Chloride 111.1 H (98-107) mmol/L Carbon Dioxide 19 L (22-30) mmol/L Creatinine 0.4 L (0.8-1.5) mg/dL POC Glucose 108 H (70-105) Calcium 8.0 L (8.4-10.2) mg/dL Total Protein 5.3 L (6.3-8.2) g/dL Albumin 2.4 L (3.9-5) g/dL
[2018-08-13] MEDS: SODIUM CHLORIDE FLUSH SYRINGE 10 ML IV SCH ×2 (10:35→21:20)
[2018-08-13] MEDS: EMTRIVA PO SCH (10:36)
[2018-08-13] MEDS: CARDURA PO SCH (10:36)
[2018-08-13] MEDS: TIVICAY PO SCH (10:37)
[2018-08-13] MEDS: BACTRIM 200-40 MG/5 ML PO SCH (10:37)
[2018-08-13] MEDS: PEPCID PO SCH ×2 (10:38→21:20)
[2018-08-13] MEDS: VIREAD PO SCH (10:38)
[2018-08-13] MEDS: VALGANCICLOVIR FEEDTUBE SCH (10:40)
--- NOTE | 2018-08-13 14:14 | Progress Note ---
Assessment and Plan Patient awake and resting on room air. No acute respiratory distress. O2 saturation 96%. - Patient Problems (1) Acute respiratory failure with hypoxia and hypercapnia Current Visit: Yes Status: Acute Plan to address problem: Tracheostomy and on room air Albuterol / Astrovent airosol treatments q 6 hours. Patient is on Azythromycin and Bactrin Continue SQ haperin Continue Famotidine (2) Status post tracheostomy Current Visit: Yes Status: Acute Plan to address problem: Frequent respiratory suctioning. Trach-care (3) Bilateral pneumonia Current Visit: Yes Status: Acute Qualifiers: Pneumonia type: due to unspecified organism Lung location: unspecified part of lung Qualified Code(s): J18.9 - Pneumonia, unspecified organism Plan to address problem: Improving Patient is on Bactrim (4) Sepsis Current Visit: Yes Status: Acute Qualifiers: Sepsis type: sepsis due to unspecified organism Qualified Code(s): A41.9 - Sepsis, unspecified organism Plan to address problem: Improved Patient is on Bactrim. (5) AIDS Current Visit: Yes Status: Acute Plan to address problem: Management as for infection disease. Subjective Date of service: 08/13/18 Principal diagnosis: Acute hypoxemic resp failure; Bilateral pneumonia (PJP); HIV/AIDS Interval history: Patient awake and resting on room air. No acute respiratory distress. O2 saturation 96%. Objective Vital Signs - 12hr 08/13/18 08/13/18 08/13/18 06:35 08:06 12:40 Temperature 98.8 F Pulse Rate 100 H 110 H Respiratory 18 Rate Blood Pressure 102/55 O2 Sat by Pulse 97 96 96 Oximetry 08/13/18 12:41 Temperature 98.4 F Pulse Rate Respiratory 19 Rate Blood Pressure 101/60 O2 Sat by Pulse Oximetry Constitutional: no acute distress, alert, other (young AAM; normocephalic and atraumatic) Eyes: non-icteric ENT: oropharynx moist, other (mallampati 2) Neck: supple, no lymphadenopathy, no JVD, other (+ midline tracheostomy tube in place) Effort: mildly labored Ascultation: Bilateral: diminished breath sounds, rales, rhonchi Percussion: Bilateral: not dull Cardiovascular: regular rate and rhythm, other (S1,S2, no murmurs, gallops or rubs) Gastrointestinal: normoactive bowel sounds, soft, non-tender, non-distended Integumentary: normal Extremities: no cyanosis, no edema, pulses normal, no ischemia or petechiae Neurologic: normal mental status, non-focal exam, pupils equal and round, CN II- XII normal, motor strength normal and Psychiatric: mood appropriate, affect normal CBC and BMP: 08/13/18 05:58 08/13/18 05:58 ABG, PT/INR, D-dimer: ABG POC ABG pH 7.507 (7.35-7.45) H 08/06/18 22:01 POC ABG pCO2 33.6 (35-45) L 08/06/18 22:01 POC ABG pO2 113 (80-105) H 08/06/18 22:01 POC ABG HCO3 26.6 (22-26 mml/L) 08/06/18 22:01 POC ABG Total CO2 28 (23-27mmol/L) 08/06/18 22:01 POC ABG O2 Sat 99 08/06/18 22:01 PT/INR, D-dimer 1298.70 ng/mlDDU (0-234) H 07/11/18 15:04 Abnormal lab findings: Abnormal Labs 07/11/18 07/11/18 07/11/18 14:06 14:06 15:04 WBC RBC 3.30 L Hgb 9.6 L Hct 28.7 L MCHC RDW Plt Count Lymph % (Auto) Snyder % (Auto) Eos % (Auto) Lymph # Seg Neutrophils % Seg Neutrophils # Abs Lymphs (Manual) D-Dimer 1298.70 H POC ABG pH POC ABG pCO2 POC ABG pO2 Sodium 132 L Potassium Chloride Carbon Dioxide BUN Creatinine 0.6 L Glucose 103 H POC Glucose Calcium 7.3 L AST ALT Lactate Dehydrogenase C-Reactive Protein Total Protein Albumin 2.1 L Triglycerides Lymph Enumerat CD4/CD8 % CD3 Cells Absolute CD3 Count % CD4 Cells Absolute CD4 Count % CD8 Cells Absolute CD8 Count % CD19 Cells Absolute CD19 Count HIV-1 RNA PCR copies/ml HIV-1 RNA (PCR) log HIV-1 Genotyping Miscellaneous Test Crossmatch 07/11/18 07/11/18 07/12/18 17:36 22:15 00:25 WBC RBC Hgb Hct MCHC RDW Plt Count Lymph % (Auto) Snyder % (Auto) Eos % (Auto) Lymph # Seg Neutrophils % Seg Neutrophils # Abs Lymphs (Manual) D-Dimer POC ABG pH 7.289 L POC ABG pCO2 POC ABG pO2 66 L Sodium Potassium Chloride Carbon Dioxide BUN Creatinine Glucose POC Glucose Calcium AST ALT Lactate Dehydrogenase 591 H C-Reactive Protein Total Protein Albumin Triglycerides Lymph Enumerat CD4/CD8 % CD3 Cells Absolute CD3 Count % CD4 Cells Absolute CD4 Count % CD8 Cells Absolute CD8 Count % CD19 Cells Absolute CD19 Count HIV-1 RNA PCR copies/ml HIV-1 RNA (PCR) log HIV-1 Genotyping Miscellaneous Test see below H Crossmatch 07/12/18 07/12/18 07/12/18 00:41 05:37 19:29 WBC RBC Hgb Hct MCHC RDW Plt Count Lymph % (Auto) Snyder % (Auto) Eos % (Auto) Lymph # Seg Neutrophils % Seg Neutrophils # Abs Lymphs (Manual) D-Dimer POC ABG pH 7.302 L 7.275 L POC ABG pCO2 47.1 H POC ABG pO2 Sodium Potassium Chloride Carbon Dioxide BUN Creatinine Glucose POC Glucose Calcium AST ALT Lactate Dehydrogenase 731 H C-Reactive Protein Total Protein Albumin Triglycerides Lymph Enumerat CD4/CD8 % CD3 Cells Absolute CD3 Count % CD4 Cells Absolute CD4 Count % CD8 Cells Absolute CD8 Count % CD19 Cells Absolute CD19 Count HIV-1 RNA PCR copies/ml HIV-1 RNA (PCR) log HIV-1 Genotyping Miscellaneous Test Crossmatch 07/12/18 07/12/18 07/13/18 19:29 19:29 04:03 WBC RBC Hgb Hct MCHC RDW Plt Count Lymph % (Auto) Snyder % (Auto) Eos % (Auto) Lymph # Seg Neutrophils % Seg Neutrophils # Abs Lymphs (Manual) 220 L D-Dimer POC ABG pH 7.254 L POC ABG pCO2 49.2 H POC ABG pO2 Sodium Potassium Chloride Carbon Dioxide BUN Creatinine Glucose POC Glucose Calcium AST ALT Lactate Dehydrogenase C-Reactive Protein Total Protein Albumin Triglycerides Lymph Enumerat CD4/CD8 0.04 L % CD3 Cells 88 H Absolute CD3 Count 194 L % CD4 Cells 3 L Absolute CD4 Count 7 L % CD8 Cells 75 H Absolute CD8 Count 177 L % CD19 Cells 4 L Absolute CD19 Count 9 L HIV-1 RNA PCR copies/ml 267454 H HIV-1 RNA (PCR) log 5.72 H HIV-1 Genotyping Miscellaneous Test Crossmatch 07/13/18 07/13/18 07/13/18 05:46 12:23 18:31 WBC RBC Hgb Hct MCHC RDW Plt Count Lymph % (Auto) Snyder % (Auto) Eos % (Auto) Lymph # Seg Neutrophils % Seg Neutrophils # Abs Lymphs (Manual) D-Dimer POC ABG pH POC ABG pCO2 POC ABG pO2 Sodium Potassium Chloride Carbon Dioxide BUN Creatinine Glucose POC Glucose 68 L 106 H 112 H Calcium AST ALT Lactate Dehydrogenase C-Reactive Protein Total Protein Albumin Triglycerides Lymph Enumerat CD4/CD8 % CD3 Cells Absolute CD3 Count % CD4 Cells Absolute CD4 Count % CD8 Cells Absolute CD8 Count % CD19 Cells Absolute CD19 Count HIV-1 RNA PCR copies/ml HIV-1 RNA (PCR) log HIV-1 Genotyping Miscellaneous Test Crossmatch 07/14/18 07/14/18 07/14/18 04:19 05:36 05:36 WBC RBC 2.99 L Hgb 8.8 L Hct 25.7 L MCHC RDW 15.5 H Plt Count Lymph % (Auto) Snyder % (Auto) Eos % (Auto) Lymph # Seg Neutrophils % Seg Neutrophils # Abs Lymphs (Manual) D-Dimer POC ABG pH 7.337 L POC ABG pCO2 POC ABG pO2 Sodium 135 L Potassium Chloride Carbon Dioxide 21 L BUN Creatinine 0.7 L Glucose 123 H POC Glucose Calcium 8.2 L AST ALT Lactate Dehydrogenase C-Reactive Protein Total Protein Albumin Triglycerides Lymph Enumerat CD4/CD8 % CD3 Cells Absolute CD3 Count % CD4 Cells Absolute CD4 Count % CD8 Cells Absolute CD8 Count % CD19 Cells Absolute CD19 Count HIV-1 RNA PCR copies/ml HIV-1 RNA (PCR) log HIV-1 Genotyping Miscellaneous Test Crossmatch 07/14/18 07/14/18 07/14/18 12:14 14:33 17:18 WBC RBC Hgb Hct MCHC RDW Plt Count Lymph % (Auto) Snyder % (Auto) Eos % (Auto) Lymph # Seg Neutrophils % Seg Neutrophils # Abs Lymphs (Manual) D-Dimer POC ABG pH 7.325 L POC ABG pCO2 POC ABG pO2 75 L Sodium Potassium Chloride Carbon Dioxide BUN Creatinine Glucose POC Glucose 174 H 114 H Calcium AST ALT Lactate Dehydrogenase C-Reactive Protein Total Protein Albumin Triglycerides Lymph Enumerat CD4/CD8 % CD3 Cells Absolute CD3 Count % CD4 Cells Absolute CD4 Count % CD8 Cells Absolute CD8 Count % CD19 Cells Absolute CD19 Count HIV-1 RNA PCR copies/ml HIV-1 RNA (PCR) log HIV-1 Genotyping Miscellaneous Test Crossmatch 07/15/18 07/15/18 07/15/18 00:17 12:29 12:29 WBC RBC 2.64 L Hgb 7.5 L Hct 22.9 L MCHC RDW 15.4 H Plt Count Lymph % (Auto) 7.0 L Snyder % (Auto) Eos % (Auto) Lymph # 0.4 L Seg Neutrophils % 89.6 H Seg Neutrophils # Abs Lymphs (Manual) D-Dimer POC ABG pH POC ABG pCO2 POC ABG pO2 Sodium Potassium Chloride Carbon Dioxide BUN Creatinine 0.6 L Glucose 124 H POC Glucose 113 H Calcium 7.3 L AST ALT Lactate Dehydrogenase C-Reactive Protein Total Protein Albumin Triglycerides Lymph Enumerat CD4/CD8 % CD3 Cells Absolute CD3 Count % CD4 Cells Absolute CD4 Count % CD8 Cells Absolute CD8 Count % CD19 Cells Absolute CD19 Count HIV-1 RNA PCR copies/ml HIV-1 RNA (PCR) log HIV-1 Genotyping Miscellaneous Test Crossmatch 07/15/18 07/16/18 07/16/18 14:09 04:46 07:21 WBC RBC Hgb Hct MCHC RDW Plt Count Lymph % (Auto) Snyder % (Auto) Eos % (Auto) Lymph # Seg Neutrophils % Seg Neutrophils # Abs Lymphs (Manual) D-Dimer POC ABG pH 7.282 L POC ABG pCO2 52.6 H POC ABG pO2 63 L Sodium Potassium Chloride Carbon Dioxide BUN Creatinine Glucose POC Glucose Calcium AST ALT Lactate Dehydrogenase C-Reactive Protein 2.70 H Total Protein Albumin Triglycerides Lymph Enumerat CD4/CD8 % CD3 Cells Absolute CD3 Count % CD4 Cells Absolute CD4 Count % CD8 Cells Absolute CD8 Count % CD19 Cells Absolute CD19 Count HIV-1 RNA PCR copies/ml HIV-1 RNA (PCR) log HIV-1 Genotyping Miscellaneous Test Flexitest 1 H Crossmatch 07/16/18 07/16/18 07/16/18 07:21 07:21 16:16 WBC RBC 2.48 L Hgb 7.2 L Hct 21.5 L MCHC RDW 15.7 H Plt Count Lymph % (Auto) Snyder % (Auto) Eos % (Auto) Lymph # Seg Neutrophils % Seg Neutrophils # Abs Lymphs (Manual) D-Dimer POC ABG pH 7.251 L POC ABG pCO2 62.2 H POC ABG pO2 Sodium 136 L Potassium Chloride Carbon Dioxide BUN Creatinine 0.6 L Glucose 118 H POC Glucose Calcium 7.5 L AST ALT Lactate Dehydrogenase C-Reactive Protein Total Protein Albumin Triglycerides Lymph Enumerat CD4/CD8 % CD3 Cells Absolute CD3 Count % CD4 Cells Absolute CD4 Count % CD8 Cells Absolute CD8 Count % CD19 Cells Absolute CD19 Count HIV-1 RNA PCR copies/ml HIV-1 RNA (PCR) log HIV-1 Genotyping Miscellaneous Test Crossmatch 07/17/18 07/18/18 07/18/18 04:01 01:10 03:10 WBC RBC 2.20 L Hgb 6.5 L Hct 19.2 L* MCHC RDW 16.0 H Plt Count Lymph % (Auto) 7.2 L Snyder % (Auto) Eos % (Auto) Lymph # 0.5 L Seg Neutrophils % 89.9 H Seg Neutrophils # Abs Lymphs (Manual) D-Dimer POC ABG pH 7.245 L POC ABG pCO2 63.8 H POC ABG pO2 75 L Sodium Potassium Chloride Carbon Dioxide BUN Creatinine Glucose POC Glucose Calcium AST ALT Lactate Dehydrogenase C-Reactive Protein Total Protein Albumin Triglycerides Lymph Enumerat CD4/CD8 % CD3 Cells Absolute CD3 Count % CD4 Cells Absolute CD4 Count % CD8 Cells Absolute CD8 Count % CD19 Cells Absolute CD19 Count HIV-1 RNA PCR copies/ml HIV-1 RNA (PCR) log HIV-1 Genotyping Miscellaneous Test Crossmatch See Detail 07/18/18 07/18/18 07/18/18 04:54 05:02 12:59 WBC RBC Hgb Hct MCHC RDW Plt Count Lymph % (Auto) Snyder % (Auto) Eos % (Auto) Lymph # Seg Neutrophils % Seg Neutrophils # Abs Lymphs (Manual) D-Dimer POC ABG pH 7.615 H POC ABG pCO2 32.6 L 48.8 H POC ABG pO2 79 L 118 H Sodium Potassium Chloride Carbon Dioxide BUN Creatinine Glucose POC Glucose 164 H Calcium AST ALT Lactate Dehydrogenase C-Reactive Protein Total Protein Albumin Triglycerides Lymph Enumerat CD4/CD8 % CD3 Cells Absolute CD3 Count % CD4 Cells Absolute CD4 Count % CD8 Cells Absolute CD8 Count % CD19 Cells Absolute CD19 Count HIV-1 RNA PCR copies/ml HIV-1 RNA (PCR) log HIV-1 Genotyping Miscellaneous Test Crossmatch 07/18/18 07/18/1819 18:25 20:39 03:53 WBC RBC Hgb Hct MCHC RDW Plt Count Lymph % (Auto) Snyder % (Auto) Eos % (Auto) Lymph # Seg Neutrophils % Seg Neutrophils # Abs Lymphs (Manual) D-Dimer POC ABG pH 7.339 L POC ABG pCO2 59.9 H 65.0 H POC ABG pO2 69 L Sodium Potassium Chloride Carbon Dioxide BUN Creatinine Glucose POC Glucose 155 H Calcium AST ALT Lactate Dehydrogenase C-Reactive Protein Total Protein Albumin Triglycerides Lymph Enumerat CD4/CD8 % CD3 Cells Absolute CD3 Count % CD4 Cells Absolute CD4 Count % CD8 Cells Absolute CD8 Count % CD19 Cells Absolute CD19 Count HIV-1 RNA PCR copies/ml HIV-1 RNA (PCR) log HIV-1 Genotyping Miscellaneous Test Crossmatch 07/19/18 07/19/18 07/19/18 08:10 08:10 10:52 WBC RBC 2.51 L Hgb 7.4 L Hct 22.0 L MCHC RDW 15.5 H Plt Count Lymph % (Auto) Snyder % (Auto) Eos % (Auto) Lymph # Seg Neutrophils % Seg Neutrophils # Abs Lymphs (Manual) D-Dimer POC ABG pH POC ABG pCO2 POC ABG pO2 Sodium 130 L Potassium Chloride 89.0 L Carbon Dioxide 33 H BUN Creatinine 0.4 L Glucose 150 H POC Glucose 173 H Calcium 7.5 L AST ALT Lactate Dehydrogenase C-Reactive Protein Total Protein Albumin Triglycerides Lymph Enumerat CD4/CD8 % CD3 Cells Absolute CD3 Count % CD4 Cells Absolute CD4 Count % CD8 Cells Absolute CD8 Count % CD19 Cells Absolute CD19 Count HIV-1 RNA PCR copies/ml HIV-1 RNA (PCR) log HIV-1 Genotyping Miscellaneous Test Crossmatch 07/19/18 07/19/18 07/20/18 17:06 23:47 04:37 WBC RBC Hgb Hct MCHC RDW Plt Count Lymph % (Auto) Snyder % (Auto) Eos % (Auto) Lymph # Seg Neutrophils % Seg Neutrophils # Abs Lymphs (Manual) D-Dimer POC ABG pH POC ABG pCO2 58.5 H POC ABG pO2 67 L Sodium Potassium Chloride Carbon Dioxide BUN Creatinine Glucose POC Glucose 117 H 114 H Calcium AST ALT Lactate Dehydrogenase C-Reactive Protein Total Protein Albumin Triglycerides Lymph Enumerat CD4/CD8 % CD3 Cells Absolute CD3 Count % CD4 Cells Absolute CD4 Count % CD8 Cells Absolute CD8 Count % CD19 Cells Absolute CD19 Count HIV-1 RNA PCR copies/ml HIV-1 RNA (PCR) log HIV-1 Genotyping Miscellaneous Test Crossmatch 07/20/18 07/20/18 07/21/18 06:20 06:20 04:18 WBC RBC 2.69 L Hgb 7.8 L Hct 23.6 L MCHC RDW 15.5 H Plt Count Lymph % (Auto) Snyder % (Auto) Eos % (Auto) Lymph # Seg Neutrophils % Seg Neutrophils # Abs Lymphs (Manual) D-Dimer POC ABG pH 7.456 H POC ABG pCO2 60.4 H POC ABG pO2 64 L Sodium 134 L Potassium Chloride 89.2 L Carbon Dioxide 38 H BUN Creatinine 0.7 L D Glucose 120 H POC Glucose Calcium 7.6 L AST ALT Lactate Dehydrogenase C-Reactive Protein Total Protein Albumin Triglycerides Lymph Enumerat CD4/CD8 % CD3 Cells Absolute CD3 Count % CD4 Cells Absolute CD4 Count % CD8 Cells Absolute CD8 Count % CD19 Cells Absolute CD19 Count HIV-1 RNA PCR copies/ml HIV-1 RNA (PCR) log HIV-1 Genotyping Miscellaneous Test Crossmatch 07/21/18 07/21/18 07/22/18 04:35 04:35 04:16 WBC RBC 2.62 L 2.37 L Hgb 7.7 L 7.0 L Hct 23.1 L 21.1 L MCHC RDW 15.4 H Plt Count Lymph % (Auto) Snyder % (Auto) Eos % (Auto) Lymph # Seg Neutrophils % Seg Neutrophils # Abs Lymphs (Manual) D-Dimer POC ABG pH POC ABG pCO2 POC ABG pO2 Sodium 129 L Potassium 5.3 H Chloride 85.3 L Carbon Dioxide 38 H BUN Creatinine 0.4 L Glucose 108 H POC Glucose Calcium 8.0 L AST ALT Lactate Dehydrogenase C-Reactive Protein Total Protein Albumin Triglycerides Lymph Enumerat CD4/CD8 % CD3 Cells Absolute CD3 Count % CD4 Cells Absolute CD4 Count % CD8 Cells Absolute CD8 Count % CD19 Cells Absolute CD19 Count HIV-1 RNA PCR copies/ml HIV-1 RNA (PCR) log HIV-1 Genotyping Miscellaneous Test Crossmatch 07/22/18 07/23/18 07/23/18 04:16 03:25 12:45 WBC RBC Hgb Hct MCHC RDW Plt Count Lymph % (Auto) Snyder % (Auto) Eos % (Auto) Lymph # Seg Neutrophils % Seg Neutrophils # Abs Lymphs (Manual) D-Dimer POC ABG pH POC ABG pCO2 69.4 H POC ABG pO2 Sodium 132 L 125 L D Potassium 5.4 H 5.3 H Chloride 87.4 L 80.3 L Carbon Dioxide 38 H 38 H BUN Creatinine 0.4 L 0.3 L Glucose 117 H 124 H POC Glucose Calcium 7.5 L 7.4 L AST ALT Lactate Dehydrogenase C-Reactive Protein Total Protein Albumin Triglycerides Lymph Enumerat CD4/CD8 % CD3 Cells Absolute CD3 Count % CD4 Cells Absolute CD4 Count % CD8 Cells Absolute CD8 Count % CD19 Cells Absolute CD19 Count HIV-1 RNA PCR copies/ml HIV-1 RNA (PCR) log HIV-1 Genotyping Miscellaneous Test Crossmatch 07/23/18 07/24/18 07/24/18 23:52 04:30 04:30 WBC RBC 2.12 L Hgb 6.3 L Hct 18.9 L* MCHC RDW Plt Count Lymph % (Auto) Snyder % (Auto) Eos % (Auto) Lymph # Seg Neutrophils % Seg Neutrophils # Abs Lymphs (Manual) D-Dimer POC ABG pH POC ABG pCO2 POC ABG pO2 Sodium 127 L Potassium 5.2 H Chloride 83.9 L Carbon Dioxide 39 H BUN Creatinine 0.3 L Glucose POC Glucose 118 H Calcium 7.5 L AST ALT Lactate Dehydrogenase C-Reactive Protein Total Protein Albumin Triglycerides Lymph Enumerat CD4/CD8 % CD3 Cells Absolute CD3 Count % CD4 Cells Absolute CD4 Count % CD8 Cells Absolute CD8 Count % CD19 Cells Absolute CD19 Count HIV-1 RNA PCR copies/ml HIV-1 RNA (PCR) log HIV-1 Genotyping Miscellaneous Test Crossmatch 07/24/18 07/24/18 07/24/18 05:11 05:30 07:50 WBC RBC Hgb Hct MCHC RDW Plt Count Lymph % (Auto) Snyder % (Auto) Eos % (Auto) Lymph # Seg Neutrophils % Seg Neutrophils # Abs Lymphs (Manual) D-Dimer POC ABG pH 7.462 H POC ABG pCO2 58.7 H POC ABG pO2 79 L Sodium Potassium Chloride Carbon Dioxide BUN Creatinine Glucose POC Glucose 145 H Calcium AST ALT Lactate Dehydrogenase C-Reactive Protein Total Protein Albumin Triglycerides Lymph Enumerat CD4/CD8 % CD3 Cells Absolute CD3 Count % CD4 Cells Absolute CD4 Count % CD8 Cells Absolute CD8 Count % CD19 Cells Absolute CD19 Count HIV-1 RNA PCR copies/ml HIV-1 RNA (PCR) log HIV-1 Genotyping Miscellaneous Test Crossmatch See Detail 07/25/18 07/25/18 07/25/18 09:30 09:30 17:05 WBC RBC 2.99 L Hgb 9.1 L Hct 27.0 L D MCHC RDW Plt Count Lymph % (Auto) Snyder % (Auto) Eos % (Auto) Lymph # Seg Neutrophils % Seg Neutrophils # Abs Lymphs (Manual) D-Dimer POC ABG pH POC ABG pCO2 POC ABG pO2 Sodium 131 L Potassium 5.1 H Chloride 84.4 L Carbon Dioxide 39 H BUN Creatinine 0.3 L Glucose 133 H POC Glucose Calcium 8.0 L AST ALT Lactate Dehydrogenase C-Reactive Protein Total Protein Albumin Triglycerides Lymph Enumerat CD4/CD8 % CD3 Cells Absolute CD3 Count % CD4 Cells Absolute CD4 Count % CD8 Cells Absolute CD8 Count % CD19 Cells Absolute CD19 Count HIV-1 RNA PCR copies/ml HIV-1 RNA (PCR) log HIV-1 Genotyping Detected H Miscellaneous Test Crossmatch 07/26/18 07/26/18 07/26/18 00:18 04:07 05:50 WBC RBC 3.01 L Hgb 9.4 L Hct 27.2 L MCHC 35 H RDW Plt Count Lymph % (Auto) 10.4 L Snyder % (Auto) Eos % (Auto) Lymph # 0.9 L Seg Neutrophils % 84.2 H Seg Neutrophils # Abs Lymphs (Manual) D-Dimer POC ABG pH 7.456 H POC ABG pCO2 61.4 H POC ABG pO2 68 L Sodium 135 L Potassium 5.5 H Chloride 88.4 L Carbon Dioxide 38 H BUN Creatinine 0.3 L Glucose POC Glucose Calcium AST ALT Lactate Dehydrogenase C-Reactive Protein Total Protein Albumin Triglycerides Lymph Enumerat CD4/CD8 % CD3 Cells Absolute CD3 Count % CD4 Cells Absolute CD4 Count % CD8 Cells Absolute CD8 Count % CD19 Cells Absolute CD19 Count HIV-1 RNA PCR copies/ml HIV-1 RNA (PCR) log HIV-1 Genotyping Miscellaneous Test Crossmatch 07/26/18 07/26/18 07/27/18 05:50 14:56 14:26 WBC RBC Hgb Hct MCHC RDW Plt Count Lymph % (Auto) Snyder % (Auto) Eos % (Auto) Lymph # Seg Neutrophils % Seg Neutrophils # Abs Lymphs (Manual) D-Dimer POC ABG pH 7.472 H POC ABG pCO2 66.0 H 57.4 H POC ABG pO2 56 L 59 L Sodium 131 L Potassium 5.1 H Chloride 84.5 L Carbon Dioxide 39 H BUN Creatinine 0.3 L Glucose POC Glucose Calcium AST 78 H ALT 71 H Lactate Dehydrogenase C-Reactive Protein Total Protein 6.0 L Albumin 2.5 L Triglycerides Lymph Enumerat CD4/CD8 % CD3 Cells Absolute CD3 Count % CD4 Cells Absolute CD4 Count % CD8 Cells Absolute CD8 Count % CD19 Cells Absolute CD19 Count HIV-1 RNA PCR copies/ml HIV-1 RNA (PCR) log HIV-1 Genotyping Miscellaneous Test Crossmatch 07/28/18 07/28/18 07/28/18 05:20 05:20 05:20 WBC RBC 3.21 L Hgb 10.0 L Hct 29.9 L MCHC RDW 15.4 H Plt Count 451 H Lymph % (Auto) Snyder % (Auto) Eos % (Auto) Lymph # Seg Neutrophils % 81.6 H Seg Neutrophils # Abs Lymphs (Manual) D-Dimer POC ABG pH POC ABG pCO2 POC ABG pO2 Sodium 136 L Potassium Chloride 89.9 L Carbon Dioxide 38 H BUN Creatinine 0.4 L Glucose POC Glucose Calcium 8.1 L AST 104 H ALT 113 H Lactate Dehydrogenase C-Reactive Protein Total Protein 6.2 L Albumin 2.5 L Triglycerides 209 H Lymph Enumerat CD4/CD8 % CD3 Cells Absolute CD3 Count % CD4 Cells Absolute CD4 Count % CD8 Cells Absolute CD8 Count % CD19 Cells Absolute CD19 Count HIV-1 RNA PCR copies/ml HIV-1 RNA (PCR) log HIV-1 Genotyping Miscellaneous Test Crossmatch 07/28/18 07/28/18 07/29/18 06:08 17:22 04:28 WBC RBC Hgb Hct MCHC RDW Plt Count Lymph % (Auto) Snyder % (Auto) Eos % (Auto) Lymph # Seg Neutrophils % Seg Neutrophils # Abs Lymphs (Manual) D-Dimer POC ABG pH 7.328 L POC ABG pCO2 65.7 H 55.1 H POC ABG pO2 70 L 113 H 76 L Sodium Potassium Chloride Carbon Dioxide BUN Creatinine Glucose POC Glucose Calcium AST ALT Lactate Dehydrogenase C-Reactive Protein Total Protein Albumin Triglycerides Lymph Enumerat CD4/CD8 % CD3 Cells Absolute CD3 Count % CD4 Cells Absolute CD4 Count % CD8 Cells Absolute CD8 Count % CD19 Cells Absolute CD19 Count HIV-1 RNA PCR copies/ml HIV-1 RNA (PCR) log HIV-1 Genotyping Miscellaneous Test Crossmatch 08/02/18 08/02/18 08/03/18 06:30 06:30 06:30 WBC RBC 2.96 L 2.78 L Hgb 9.4 L 9.0 L Hct 27.6 L 26.3 L MCHC RDW 18.4 H 19.6 H Plt Count Lymph % (Auto) 11.1 L Snyder % (Auto) Eos % (Auto) Lymph # 0.6 L 0.7 L Seg Neutrophils % 84.0 H 79.0 H Seg Neutrophils # Abs Lymphs (Manual) D-Dimer POC ABG pH POC ABG pCO2 POC ABG pO2 Sodium 133 L Potassium Chloride 92.7 L Carbon Dioxide BUN 22 H Creatinine 0.5 L Glucose POC Glucose Calcium 8.1 L AST ALT Lactate Dehydrogenase C-Reactive Protein Total Protein Albumin Triglycerides Lymph Enumerat CD4/CD8 % CD3 Cells Absolute CD3 Count % CD4 Cells Absolute CD4 Count % CD8 Cells Absolute CD8 Count % CD19 Cells Absolute CD19 Count HIV-1 RNA PCR copies/ml HIV-1 RNA (PCR) log HIV-1 Genotyping Miscellaneous Test Crossmatch 08/03/18 08/04/18 08/05/18 06:30 17:13 08:03 WBC RBC 2.77 L Hgb 8.8 L Hct 25.8 L MCHC RDW 20.4 H Plt Count Lymph % (Auto) Snyder % (Auto) Eos % (Auto) Lymph # 0.9 L Seg Neutrophils % 76.6 H Seg Neutrophils # Abs Lymphs (Manual) D-Dimer POC ABG pH POC ABG pCO2 POC ABG pO2 Sodium 131 L Potassium Chloride 92.0 L Carbon Dioxide BUN Creatinine 0.3 L Glucose POC Glucose 120 H Calcium 8.0 L AST ALT Lactate Dehydrogenase C-Reactive Protein Total Protein 6.0 L Albumin 2.4 L Triglycerides Lymph Enumerat CD4/CD8 % CD3 Cells Absolute CD3 Count % CD4 Cells Absolute CD4 Count % CD8 Cells Absolute CD8 Count % CD19 Cells Absolute CD19 Count HIV-1 RNA PCR copies/ml HIV-1 RNA (PCR) log HIV-1 Genotyping Miscellaneous Test Crossmatch 08/05/18 08/06/18 08/06/18 08:03 07:38 22:01 WBC RBC Hgb Hct MCHC RDW Plt Count Lymph % (Auto) Snyder % (Auto) Eos % (Auto) Lymph # Seg Neutrophils % Seg Neutrophils # Abs Lymphs (Manual) D-Dimer POC ABG pH 7.507 H POC ABG pCO2 33.6 L POC ABG pO2 113 H Sodium 132 L 131 L Potassium 3.5 L Chloride 93.0 L 92.4 L Carbon Dioxide BUN Creatinine 0.3 L 0.4 L Glucose POC Glucose Calcium 8.0 L 8.1 L AST ALT Lactate Dehydrogenase C-Reactive Protein Total Protein Albumin Triglycerides Lymph Enumerat CD4/CD8 % CD3 Cells Absolute CD3 Count % CD4 Cells Absolute CD4 Count % CD8 Cells Absolute CD8 Count % CD19 Cells Absolute CD19 Count HIV-1 RNA PCR copies/ml HIV-1 RNA (PCR) log HIV-1 Genotyping Miscellaneous Test Crossmatch 08/07/18 08/07/18 08/08/18 07:57 07:57 04:38 WBC 4.1 L RBC 3.00 L Hgb 9.4 L Hct 27.9 L MCHC RDW 19.2 H Plt Count Lymph % (Auto) Snyder % (Auto) Eos % (Auto) Lymph # Seg Neutrophils % Seg Neutrophils # Abs Lymphs (Manual) D-Dimer POC ABG pH POC ABG pCO2 POC ABG pO2 Sodium 133 L Potassium 3.2 L Chloride 95.9 L Carbon Dioxide BUN Creatinine 0.4 L 0.4 L Glucose 104 H POC Glucose Calcium AST ALT Lactate Dehydrogenase C-Reactive Protein Total Protein Albumin 2.6 L Triglycerides Lymph Enumerat CD4/CD8 % CD3 Cells Absolute CD3 Count % CD4 Cells Absolute CD4 Count % CD8 Cells Absolute CD8 Count % CD19 Cells Absolute CD19 Count HIV-1 RNA PCR copies/ml HIV-1 RNA (PCR) log HIV-1 Genotyping Miscellaneous Test Crossmatch 08/11/18 08/11/18 08/12/18 06:55 06:55 00:00 WBC 3.3 L RBC 2.91 L Hgb 9.2 L Hct 26.9 L MCHC RDW 18.9 H Plt Count 503 H Lymph % (Auto) Snyder % (Auto) Eos % (Auto) 7.8 H Lymph # 0.9 L Seg Neutrophils % Seg Neutrophils # Abs Lymphs (Manual) D-Dimer POC ABG pH POC ABG pCO2 POC ABG pO2 Sodium Potassium Chloride 108.8 H Carbon Dioxide BUN Creatinine 0.4 L Glucose POC Glucose 106 H Calcium 8.1 L AST ALT Lactate Dehydrogenase C-Reactive Protein Total Protein Albumin Triglycerides Lymph Enumerat CD4/CD8 % CD3 Cells Absolute CD3 Count % CD4 Cells Absolute CD4 Count % CD8 Cells Absolute CD8 Count % CD19 Cells Absolute CD19 Count HIV-1 RNA PCR copies/ml HIV-1 RNA (PCR) log HIV-1 Genotyping Miscellaneous Test Crossmatch 08/12/18 08/12/18 08/12/18 04:38 04:38 18:13 WBC 3.0 L RBC 3.04 L Hgb 9.5 L Hct 28.4 L MCHC RDW 19.0 H Plt Count 448 H Lymph % (Auto) [place] % (Auto) Eos % (Auto) 7.1 H Lymph # 0.9 L Seg Neutrophils % Seg Neutrophils # 1.6 L Abs Lymphs (Manual) D-Dimer POC ABG pH POC ABG pCO2 POC ABG pO2 Sodium Potassium 3.4 L Chloride 110.1 H Carbon Dioxide 18 L BUN Creatinine 0.4 L Glucose POC Glucose 108 H Calcium 8.1 L AST 41 H ALT Lactate Dehydrogenase C-Reactive Protein Total Protein 5.8 L Albumin 2.2 L Triglycerides Lymph Enumerat CD4/CD8 % CD3 Cells Absolute CD3 Count % CD4 Cells Absolute CD4 Count % CD8 Cells Absolute CD8 Count % CD19 Cells Absolute CD19 Count HIV-1 RNA PCR copies/ml HIV-1 RNA (PCR) log HIV-1 Genotyping Miscellaneous Test Crossmatch 08/13/18 08/13/18 05:58 05:58 WBC 2.9 L RBC 2.71 L Hgb 8.6 L Hct 25.1 L MCHC RDW 19.1 H Plt Count Lymph % (Auto) [place] % (Auto) 9.8 H Eos % (Auto) 4.8 H Lymph # 0.9 L Seg Neutrophils % Seg Neutrophils # 1.6 L Abs Lymphs (Manual) D-Dimer POC ABG pH POC ABG pCO2 POC ABG pO2 Sodium Potassium Chloride 111.1 H Carbon Dioxide 19 L BUN Creatinine 0.4 L Glucose POC Glucose Calcium 8.0 L AST ALT Lactate Dehydrogenase C-Reactive Protein Total Protein 5.3 L Albumin 2.4 L Triglycerides Lymph Enumerat CD4/CD8 % CD3 Cells Absolute CD3 Count % CD4 Cells Absolute CD4 Count % CD8 Cells Absolute CD8 Count % CD19 Cells Absolute CD19 Count HIV-1 RNA PCR copies/ml HIV-1 RNA (PCR) log HIV-1 Genotyping Miscellaneous Test Crossmatch Allied health notes reviewed: nursing
--- NOTE | 2018-08-13 14:16 | Progress Note ---
Assessment and Plan /Acute hypoxic respiratory failure vent dependent > 96 hrs s/p Trach and PEG placement, Wean off as As tolerated from tach - wean from O2 and decannulate the patient /-s/p PEG : PEG feeds per protocol - ordered for repeat speech eval - passed for regular diet /Hypokalemia: Replaced with Kcl and monitor levels /-Sepsis present on admission - due to bilateral pneumonia /MRSA tracheal aspirate + PCP s/p ABX per ID, Isolation precautions, cont MRSA isolation /-Pneumonia (pneumocystis jirovecii pneumonia positive stain): also MRSA Completed linezolid x 10 days until 07/23. S/p 21 days bactrim IV until 2018. 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 - ccompleted valganciclovir 900 mg PO BID for 21 days today /-History of HIV-AIDS; noncompliance with medications, ID following per ID: - continue bactrim DS 1 tab q day for PJP prophylaxis - continue HIV therapy: emtricitabine, tenofovir and dolutegravir (started on 08/07/2018) - Azithromycin prophylaxis is not needed since patient is now on ART /-Diarrhea: Improved /-Hyponatremia:sodium levels improved /-Severe Malnutrition : [place] following /-Acute blood loss anemia; received 2 units PRBC, hb now stable /- Elevated d dimers: CTA chest Neg PE /-Discharge planning. Case management/social issues Monitor closely and adjust the management as needed Disposition; discharge pending on weaning O2 and decannulating the pt Brief History Patient is a 37 yo man with a history of HIV and tobacco dependency who presents from [facility] to [facility] ED with sob and cough. Pt admitted to IMCU and initiated on Pneumonia protocol. Chest CT showed bilateral patchy and somewhat confluent alveolar infiltrates and interstitial infiltrates. Patient required emergent intubation , unable to wean , vent dependent , s/p trach and PEG for very resistant hypoxia. Completed treatment for PNA. Now on Vancyclovir for CMV viremia and HIV treatment. Now on weaning protocol for trach and PEG. Passed swallow eval, started on regular diet today, if tolerated stop TF. cont to wean off for trach/O2 requirement - wean from O2 and decannulate the pt. Hospitalist Physical General appearance: Present: no acute distress, cachectic, disheveled, other (tracheostomy ) - EENT Eyes: Present: PERRL, EOM intact - Neck Neck: Present: supple, normal ROM - Respiratory Respiratory effort: normal Respiratory: bilateral: diminished, rhonchi, negative: rales, wheezing - Cardiovascular Rhythm: regular Heart Sounds: Present: S1 & S2 - Extremities Extremities: no ischemia, No edema - Abdominal General gastrointestinal: soft, non-tender, non-distended, normal bowel sounds, PEG on place - Integumentary Integumentary: Present: clear, warm - Psychiatric Psychiatric: appropriate mood/affect, cooperative - Neurologic Neurologic: CNII-XII intact, moves all extremities Subjective Date of service: 08/13/18 Principal diagnosis: Acute hypoxemic resp failure; Bilateral pneumonia (PJP); HIV/AIDS Interval history: Patient seen and examined. Medical records and medication list reviewed. No acute event overnight noted by the RN. Patient denies any chest pain, breathing comfortably on trach. Discussed plan of care at bedside with patient. discharge pending on placement - patient has no insurance Objective - Constitutional Vitals: Vital Signs - 12hr 08/13/18 08/13/18 08/13/18 06:35 08:06 12:40 Temperature 98.8 F Pulse Rate 100 H 110 H Respiratory 18 Rate Blood Pressure 102/55 O2 Sat by Pulse 97 96 96 Oximetry 08/13/18 12:41 Temperature 98.4 F Pulse Rate Respiratory 19 Rate Blood Pressure 101/60 O2 Sat by Pulse Oximetry - Labs CBC & Chem 7: 08/13/18 05:58 08/13/18 05:58 Labs: Abnormal lab results 08/12/18 08/13/18 08/13/18 Range/Units 18:13 05:58 05:58 WBC 2.9 L (4.5-11.0) K/mm3 RBC 2.71 L (3.65-5.03) M/mm3 Hgb 8.6 L (11.8-15.2) gm/dl Hct 25.1 L (35.5-45.6) % RDW 19.1 H (13.2-15.2) % [place] % (Auto) 9.8 H (0.0-7.3) % Eos % (Auto) 4.8 H (0.0-4.3) % Lymph # 0.9 L (1.2-5.4) K/mm3 Seg Neutrophils # 1.6 L (1.8-7.7) K/mm3 Chloride 111.1 H (98-107) mmol/L Carbon Dioxide 19 L (22-30) mmol/L Creatinine 0.4 L (0.8-1.5) mg/dL POC Glucose 108 H (70-105) Calcium 8.0 L (8.4-10.2) mg/dL Total Protein 5.3 L (6.3-8.2) g/dL Albumin 2.4 L (3.9-5) g/dL
[2018-08-14] MEDS: NACL 0.9% 1000 ML 1,000 ML IV SCH (04:26)
[2018-08-14] MEDS: CARDURA PO SCH (11:48)
[2018-08-14] MEDS: TIVICAY PO SCH (11:49)
[2018-08-14] MEDS: VIREAD PO SCH (11:49)
[2018-08-14] MEDS: EMTRIVA PO SCH (11:49)
[2018-08-14] MEDS: BACTRIM 200-40 MG/5 ML PO SCH (11:50)
[2018-08-14] MEDS: PEPCID PO SCH ×2 (11:50→21:15)
[2018-08-14] MEDS: HEPARIN SUB-Q SCH ×3 (12:08→21:16)
[2018-08-14] MEDS: SODIUM CHLORIDE FLUSH SYRINGE 10 ML IV SCH ×2 (12:12→21:18)
--- NOTE | 2018-08-14 14:15 | Progress Note ---
Assessment and Plan Patient awake and resting on room air. No acute respiratory distress. O2 saturation 96%. Trach tube capped. Patient tolerating the capping of trach tube good. - Patient Problems (1) Acute respiratory failure with hypoxia and hypercapnia Current Visit: Yes Status: Acute Plan to address problem: Tracheostomy and on room air Albuterol / Astrovent airosol treatments q 6 hours. Patient is on Azythromycin and Bactrin Continue SQ haperin Continue Famotidine (2) Status post tracheostomy Current Visit: Yes Status: Acute Plan to address problem: Frequent respiratory suctioning. Trach-care (3) Bilateral pneumonia Current Visit: Yes Status: Acute Qualifiers: Pneumonia type: due to unspecified organism Lung location: unspecified part of lung Qualified Code(s): J18.9 - Pneumonia, unspecified organism Plan to address problem: Improving Patient is on Bactrim (4) Sepsis Current Visit: Yes Status: Acute Qualifiers: Sepsis type: sepsis due to unspecified organism Qualified Code(s): A41.9 - Sepsis, unspecified organism Plan to address problem: Improved Patient is on Bactrim. (5) AIDS Current Visit: Yes Status: Acute Plan to address problem: Management as for infection disease. Subjective Date of service: 08/14/18 Principal diagnosis: Acute hypoxemic resp failure; Bilateral pneumonia (PJP); HIV/AIDS Interval history: Patient awake and resting on room air. No acute respiratory distress. O2 saturation 96%. Trach tube capped. Patient tolerating the capping of trach tube good. Objective Vital Signs - 12hr 08/14/18 08/14/18 08/14/18 02:23 05:59 08:00 Temperature 98.4 F Pulse Rate 92 H Respiratory 20 Rate Blood Pressure 94/60 O2 Sat by Pulse 97 Oximetry O2 Sat by Pulse 96 97 Oximetry [ Assessment] 08/14/18 08/14/18 08/14/18 11:45 11:48 12:54 Temperature 98.5 F Pulse Rate 90 107 H Respiratory 16 Rate Blood Pressure 106/61 106/61 106/61 O2 Sat by Pulse 96 Oximetry O2 Sat by Pulse Oximetry [ Assessment] Constitutional: no acute distress, alert, other (young AAM; normocephalic and atraumatic) Eyes: non-icteric ENT: oropharynx moist, other (mallampati 2) Neck: supple, no lymphadenopathy, no JVD, other (+ midline tracheostomy tube in place) Effort: mildly labored Ascultation: Bilateral: diminished breath sounds, rales, rhonchi Percussion: Bilateral: not dull Cardiovascular: regular rate and rhythm, other (S1,S2, no murmurs, gallops or rubs) Gastrointestinal: normoactive bowel sounds, soft, non-tender, non-distended Integumentary: normal Extremities: no cyanosis, no edema, pulses normal, no ischemia or petechiae Neurologic: normal mental status, non-focal exam, pupils equal and round, CN II- XII normal, motor strength normal and Psychiatric: mood appropriate, affect normal CBC and BMP: 08/13/18 05:58 08/13/18 05:58 ABG, PT/INR, D-dimer: ABG POC ABG pH 7.507 (7.35-7.45) H 08/06/18 22:01 POC ABG pCO2 33.6 (35-45) L 08/06/18 22:01 POC ABG pO2 113 (80-105) H 08/06/18 22:01 POC ABG HCO3 26.6 (22-26 mml/L) 08/06/18 22:01 POC ABG Total CO2 28 (23-27mmol/L) 08/06/18 22:01 POC ABG O2 Sat 99 08/06/18 22:01 PT/INR, D-dimer 1298.70 ng/mlDDU (0-234) H 07/11/18 15:04 Abnormal lab findings: Abnormal Labs 07/11/18 07/11/18 07/11/18 14:06 14:06 15:04 WBC RBC 3.30 L Hgb 9.6 L Hct 28.7 L MCHC RDW Plt Count Lymph % (Auto) [place] % (Auto) Eos % (Auto) Lymph # Seg Neutrophils % Seg Neutrophils # Abs Lymphs (Manual) D-Dimer 1298.70 H POC ABG pH POC ABG pCO2 POC ABG pO2 Sodium 132 L Potassium Chloride Carbon Dioxide BUN Creatinine 0.6 L Glucose 103 H POC Glucose Calcium 7.3 L AST ALT Lactate Dehydrogenase C-Reactive Protein Total Protein Albumin 2.1 L Triglycerides Lymph Enumerat CD4/CD8 % CD3 Cells Absolute CD3 Count % CD4 Cells Absolute CD4 Count % CD8 Cells Absolute CD8 Count % CD19 Cells Absolute CD19 Count HIV-1 RNA PCR copies/ml HIV-1 RNA (PCR) log HIV-1 Genotyping Miscellaneous Test Crossmatch 07/11/18 07/11/18 07/12/18 17:36 22:15 00:25 WBC RBC Hgb Hct MCHC RDW Plt Count Lymph % (Auto) [place] % (Auto) Eos % (Auto) Lymph # Seg Neutrophils % Seg Neutrophils # Abs Lymphs (Manual) D-Dimer POC ABG pH 7.289 L POC ABG pCO2 POC ABG pO2 66 L Sodium Potassium Chloride Carbon Dioxide BUN Creatinine Glucose POC Glucose Calcium AST ALT Lactate Dehydrogenase 591 H C-Reactive Protein Total Protein Albumin Triglycerides Lymph Enumerat CD4/CD8 % CD3 Cells Absolute CD3 Count % CD4 Cells Absolute CD4 Count % CD8 Cells Absolute CD8 Count % CD19 Cells Absolute CD19 Count HIV-1 RNA PCR copies/ml HIV-1 RNA (PCR) log HIV-1 Genotyping Miscellaneous Test see below H Crossmatch 07/12/18 07/12/18 07/12/18 00:41 05:37 19:29 WBC RBC Hgb Hct MCHC RDW Plt Count Lymph % (Auto) [place] % (Auto) Eos % (Auto) Lymph # Seg Neutrophils % Seg Neutrophils # Abs Lymphs (Manual) D-Dimer POC ABG pH 7.302 L 7.275 L POC ABG pCO2 47.1 H POC ABG pO2 Sodium Potassium Chloride Carbon Dioxide BUN Creatinine Glucose POC Glucose Calcium AST ALT Lactate Dehydrogenase 731 H C-Reactive Protein Total Protein Albumin Triglycerides Lymph Enumerat CD4/CD8 % CD3 Cells Absolute CD3 Count % CD4 Cells Absolute CD4 Count % CD8 Cells Absolute CD8 Count % CD19 Cells Absolute CD19 Count HIV-1 RNA PCR copies/ml HIV-1 RNA (PCR) log HIV-1 Genotyping Miscellaneous Test Crossmatch 07/12/18 07/12/18 07/13/18 19:29 19:29 04:03 WBC RBC Hgb Hct MCHC RDW Plt Count Lymph % (Auto) [place] % (Auto) Eos % (Auto) Lymph # Seg Neutrophils % Seg Neutrophils # Abs Lymphs (Manual) 220 L D-Dimer POC ABG pH 7.254 L POC ABG pCO2 49.2 H POC ABG pO2 Sodium Potassium Chloride Carbon Dioxide BUN Creatinine Glucose POC Glucose Calcium AST ALT Lactate Dehydrogenase C-Reactive Protein Total Protein Albumin Triglycerides Lymph Enumerat CD4/CD8 0.04 L % CD3 Cells 88 H Absolute CD3 Count 194 L % CD4 Cells 3 L Absolute CD4 Count 7 L % CD8 Cells 75 H Absolute CD8 Count 177 L % CD19 Cells 4 L Absolute CD19 Count 9 L HIV-1 RNA PCR copies/ml 017774 H HIV-1 RNA (PCR) log 5.72 H HIV-1 Genotyping Miscellaneous Test Crossmatch 07/13/18 07/13/18 07/13/18 05:46 12:23 18:31 WBC RBC Hgb Hct MCHC RDW Plt Count Lymph % (Auto) [place] % (Auto) Eos % (Auto) Lymph # Seg Neutrophils % Seg Neutrophils # Abs Lymphs (Manual) D-Dimer POC ABG pH POC ABG pCO2 POC ABG pO2 Sodium Potassium Chloride Carbon Dioxide BUN Creatinine Glucose POC Glucose 68 L 106 H 112 H Calcium AST ALT Lactate Dehydrogenase C-Reactive Protein Total Protein Albumin Triglycerides Lymph Enumerat CD4/CD8 % CD3 Cells Absolute CD3 Count % CD4 Cells Absolute CD4 Count % CD8 Cells Absolute CD8 Count % CD19 Cells Absolute CD19 Count HIV-1 RNA PCR copies/ml HIV-1 RNA (PCR) log HIV-1 Genotyping Miscellaneous Test Crossmatch 07/14/18 07/14/18 07/14/18 04:19 05:36 05:36 WBC RBC 2.99 L Hgb 8.8 L Hct 25.7 L MCHC RDW 15.5 H Plt Count Lymph % (Auto) [place] % (Auto) Eos % (Auto) Lymph # Seg Neutrophils % Seg Neutrophils # Abs Lymphs (Manual) D-Dimer POC ABG pH 7.337 L POC ABG pCO2 POC ABG pO2 Sodium 135 L Potassium Chloride Carbon Dioxide 21 L BUN Creatinine 0.7 L Glucose 123 H POC Glucose Calcium 8.2 L AST ALT Lactate Dehydrogenase C-Reactive Protein Total Protein Albumin Triglycerides Lymph Enumerat CD4/CD8 % CD3 Cells Absolute CD3 Count % CD4 Cells Absolute CD4 Count % CD8 Cells Absolute CD8 Count % CD19 Cells Absolute CD19 Count HIV-1 RNA PCR copies/ml HIV-1 RNA (PCR) log HIV-1 Genotyping Miscellaneous Test Crossmatch 07/14/18 07/14/18 07/14/18 12:14 14:33 17:18 WBC RBC Hgb Hct MCHC RDW Plt Count Lymph % (Auto) [place] % (Auto) Eos % (Auto) Lymph # Seg Neutrophils % Seg Neutrophils # Abs Lymphs (Manual) D-Dimer POC ABG pH 7.325 L POC ABG pCO2 POC ABG pO2 75 L Sodium Potassium Chloride Carbon Dioxide BUN Creatinine Glucose POC Glucose 174 H 114 H Calcium AST ALT Lactate Dehydrogenase C-Reactive Protein Total Protein Albumin Triglycerides Lymph Enumerat CD4/CD8 % CD3 Cells Absolute CD3 Count % CD4 Cells Absolute CD4 Count % CD8 Cells Absolute CD8 Count % CD19 Cells Absolute CD19 Count HIV-1 RNA PCR copies/ml HIV-1 RNA (PCR) log HIV-1 Genotyping Miscellaneous Test Crossmatch 07/15/18 07/15/18 07/15/18 00:17 12:29 12:29 WBC RBC 2.64 L Hgb 7.5 L Hct 22.9 L MCHC RDW 15.4 H Plt Count Lymph % (Auto) 7.0 L [place] % (Auto) Eos % (Auto) Lymph # 0.4 L Seg Neutrophils % 89.6 H Seg Neutrophils # Abs Lymphs (Manual) D-Dimer POC ABG pH POC ABG pCO2 POC ABG pO2 Sodium Potassium Chloride Carbon Dioxide BUN Creatinine 0.6 L Glucose 124 H POC Glucose 113 H Calcium 7.3 L AST ALT Lactate Dehydrogenase C-Reactive Protein Total Protein Albumin Triglycerides Lymph Enumerat CD4/CD8 % CD3 Cells Absolute CD3 Count % CD4 Cells Absolute CD4 Count % CD8 Cells Absolute CD8 Count % CD19 Cells Absolute CD19 Count HIV-1 RNA PCR copies/ml HIV-1 RNA (PCR) log HIV-1 Genotyping Miscellaneous Test Crossmatch 07/15/18 07/16/18 07/16/18 14:09 04:46 07:21 WBC RBC Hgb Hct MCHC RDW Plt Count Lymph % (Auto) [place] % (Auto) Eos % (Auto) Lymph # Seg Neutrophils % Seg Neutrophils # Abs Lymphs (Manual) D-Dimer POC ABG pH 7.282 L POC ABG pCO2 52.6 H POC ABG pO2 63 L Sodium Potassium Chloride Carbon Dioxide BUN Creatinine Glucose POC Glucose Calcium AST ALT Lactate Dehydrogenase C-Reactive Protein 2.70 H Total Protein Albumin Triglycerides Lymph Enumerat CD4/CD8 % CD3 Cells Absolute CD3 Count % CD4 Cells Absolute CD4 Count % CD8 Cells Absolute CD8 Count % CD19 Cells Absolute CD19 Count HIV-1 RNA PCR copies/ml HIV-1 RNA (PCR) log HIV-1 Genotyping Miscellaneous Test Flexitest 1 H Crossmatch 07/16/18 07/16/18 07/16/18 07:21 07:21 16:16 WBC RBC 2.48 L Hgb 7.2 L Hct 21.5 L MCHC RDW 15.7 H Plt Count Lymph % (Auto) [place] % (Auto) Eos % (Auto) Lymph # Seg Neutrophils % Seg Neutrophils # Abs Lymphs (Manual) D-Dimer POC ABG pH 7.251 L POC ABG pCO2 62.2 H POC ABG pO2 Sodium 136 L Potassium Chloride Carbon Dioxide BUN Creatinine 0.6 L Glucose 118 H POC Glucose Calcium 7.5 L AST ALT Lactate Dehydrogenase C-Reactive Protein Total Protein Albumin Triglycerides Lymph Enumerat CD4/CD8 % CD3 Cells Absolute CD3 Count % CD4 Cells Absolute CD4 Count % CD8 Cells Absolute CD8 Count % CD19 Cells Absolute CD19 Count HIV-1 RNA PCR copies/ml HIV-1 RNA (PCR) log HIV-1 Genotyping Miscellaneous Test Crossmatch 07/17/18 07/18/18 07/18/18 04:01 01:10 03:10 WBC RBC 2.20 L Hgb 6.5 L Hct 19.2 L* MCHC RDW 16.0 H Plt Count Lymph % (Auto) 7.2 L [place] % (Auto) Eos % (Auto) Lymph # 0.5 L Seg Neutrophils % 89.9 H Seg Neutrophils # Abs Lymphs (Manual) D-Dimer POC ABG pH 7.245 L POC ABG pCO2 63.8 H POC ABG pO2 75 L Sodium Potassium Chloride Carbon Dioxide BUN Creatinine Glucose POC Glucose Calcium AST ALT Lactate Dehydrogenase C-Reactive Protein Total Protein Albumin Triglycerides Lymph Enumerat CD4/CD8 % CD3 Cells Absolute CD3 Count % CD4 Cells Absolute CD4 Count % CD8 Cells Absolute CD8 Count % CD19 Cells Absolute CD19 Count HIV-1 RNA PCR copies/ml HIV-1 RNA (PCR) log HIV-1 Genotyping Miscellaneous Test Crossmatch See Detail 07/18/18 07/18/18 07/18/18 04:54 05:02 12:59 WBC RBC Hgb Hct MCHC RDW Plt Count Lymph % (Auto) [place] % (Auto) Eos % (Auto) Lymph # Seg Neutrophils % Seg Neutrophils # Abs Lymphs (Manual) D-Dimer POC ABG pH 7.615 H POC ABG pCO2 32.6 L 48.8 H POC ABG pO2 79 L 118 H Sodium Potassium Chloride Carbon Dioxide BUN Creatinine Glucose POC Glucose 164 H Calcium AST ALT Lactate Dehydrogenase C-Reactive Protein Total Protein Albumin Triglycerides Lymph Enumerat CD4/CD8 % CD3 Cells Absolute CD3 Count % CD4 Cells Absolute CD4 Count % CD8 Cells Absolute CD8 Count % CD19 Cells Absolute CD19 Count HIV-1 RNA PCR copies/ml HIV-1 RNA (PCR) log HIV-1 Genotyping Miscellaneous Test Crossmatch 07/18/18 07/18/18 07/19/18 18:25 20:39 03:53 WBC RBC Hgb Hct MCHC RDW Plt Count Lymph % (Auto) [place] % (Auto) Eos % (Auto) Lymph # Seg Neutrophils % Seg Neutrophils # Abs Lymphs (Manual) D-Dimer POC ABG pH 7.339 L POC ABG pCO2 59.9 H 65.0 H POC ABG pO2 69 L Sodium Potassium Chloride Carbon Dioxide BUN Creatinine Glucose POC Glucose 155 H Calcium AST ALT Lactate Dehydrogenase C-Reactive Protein Total Protein Albumin Triglycerides Lymph Enumerat CD4/CD8 % CD3 Cells Absolute CD3 Count % CD4 Cells Absolute CD4 Count % CD8 Cells Absolute CD8 Count % CD19 Cells Absolute CD19 Count HIV-1 RNA PCR copies/ml HIV-1 RNA (PCR) log HIV-1 Genotyping Miscellaneous Test Crossmatch 07/19/18 07/19/18 07/19/18 08:10 08:10 10:52 WBC RBC 2.51 L Hgb 7.4 L Hct 22.0 L MCHC RDW 15.5 H Plt Count Lymph % (Auto) [place] % (Auto) Eos % (Auto) Lymph # Seg Neutrophils % Seg Neutrophils # Abs Lymphs (Manual) D-Dimer POC ABG pH POC ABG pCO2 POC ABG pO2 Sodium 130 L Potassium Chloride 89.0 L Carbon Dioxide 33 H BUN Creatinine 0.4 L Glucose 150 H POC Glucose 173 H Calcium 7.5 L AST ALT Lactate Dehydrogenase C-Reactive Protein Total Protein Albumin Triglycerides Lymph Enumerat CD4/CD8 % CD3 Cells Absolute CD3 Count % CD4 Cells Absolute CD4 Count % CD8 Cells Absolute CD8 Count % CD19 Cells Absolute CD19 Count HIV-1 RNA PCR copies/ml HIV-1 RNA (PCR) log HIV-1 Genotyping Miscellaneous Test Crossmatch 07/19/18 07/19/18 07/20/18 17:06 23:47 04:37 WBC RBC Hgb Hct MCHC RDW Plt Count Lymph % (Auto) [place] % (Auto) Eos % (Auto) Lymph # Seg Neutrophils % Seg Neutrophils # Abs Lymphs (Manual) D-Dimer POC ABG pH POC ABG pCO2 58.5 H POC ABG pO2 67 L Sodium Potassium Chloride Carbon Dioxide BUN Creatinine Glucose POC Glucose 117 H 114 H Calcium AST ALT Lactate Dehydrogenase C-Reactive Protein Total Protein Albumin Triglycerides Lymph Enumerat CD4/CD8 % CD3 Cells Absolute CD3 Count % CD4 Cells Absolute CD4 Count % CD8 Cells Absolute CD8 Count % CD19 Cells Absolute CD19 Count HIV-1 RNA PCR copies/ml HIV-1 RNA (PCR) log HIV-1 Genotyping Miscellaneous Test Crossmatch 07/20/18 07/20/18 07/21/18 06:20 06:20 04:18 WBC RBC 2.69 L Hgb 7.8 L Hct 23.6 L MCHC RDW 15.5 H Plt Count Lymph % (Auto) [place] % (Auto) Eos % (Auto) Lymph # Seg Neutrophils % Seg Neutrophils # Abs Lymphs (Manual) D-Dimer POC ABG pH 7.456 H POC ABG pCO2 60.4 H POC ABG pO2 64 L Sodium 134 L Potassium Chloride 89.2 L Carbon Dioxide 38 H BUN Creatinine 0.7 L D Glucose 120 H POC Glucose Calcium 7.6 L AST ALT Lactate Dehydrogenase C-Reactive Protein Total Protein Albumin Triglycerides Lymph Enumerat CD4/CD8 % CD3 Cells Absolute CD3 Count % CD4 Cells Absolute CD4 Count % CD8 Cells Absolute CD8 Count % CD19 Cells Absolute CD19 Count HIV-1 RNA PCR copies/ml HIV-1 RNA (PCR) log HIV-1 Genotyping Miscellaneous Test Crossmatch 07/21/18 07/21/18 07/22/18 04:35 04:35 04:16 WBC RBC 2.62 L 2.37 L Hgb 7.7 L 7.0 L Hct 23.1 L 21.1 L MCHC RDW 15.4 H Plt Count Lymph % (Auto) [place] % (Auto) Eos % (Auto) Lymph # Seg Neutrophils % Seg Neutrophils # Abs Lymphs (Manual) D-Dimer POC ABG pH POC ABG pCO2 POC ABG pO2 Sodium 129 L Potassium 5.3 H Chloride 85.3 L Carbon Dioxide 38 H BUN Creatinine 0.4 L Glucose 108 H POC Glucose Calcium 8.0 L AST ALT Lactate Dehydrogenase C-Reactive Protein Total Protein Albumin Triglycerides Lymph Enumerat CD4/CD8 % CD3 Cells Absolute CD3 Count % CD4 Cells Absolute CD4 Count % CD8 Cells Absolute CD8 Count % CD19 Cells Absolute CD19 Count HIV-1 RNA PCR copies/ml HIV-1 RNA (PCR) log HIV-1 Genotyping Miscellaneous Test Crossmatch 07/22/18 07/23/18 07/23/18 04:16 03:25 12:45 WBC RBC Hgb Hct MCHC RDW Plt Count Lymph % (Auto) [place] % (Auto) Eos % (Auto) Lymph # Seg Neutrophils % Seg Neutrophils # Abs Lymphs (Manual) D-Dimer POC ABG pH POC ABG pCO2 69.4 H POC ABG pO2 Sodium 132 L 125 L D Potassium 5.4 H 5.3 H Chloride 87.4 L 80.3 L Carbon Dioxide 38 H 38 H BUN Creatinine 0.4 L 0.3 L Glucose 117 H 124 H POC Glucose Calcium 7.5 L 7.4 L AST ALT Lactate Dehydrogenase C-Reactive Protein Total Protein Albumin Triglycerides Lymph Enumerat CD4/CD8 % CD3 Cells Absolute CD3 Count % CD4 Cells Absolute CD4 Count % CD8 Cells Absolute CD8 Count % CD19 Cells Absolute CD19 Count HIV-1 RNA PCR copies/ml HIV-1 RNA (PCR) log HIV-1 Genotyping Miscellaneous Test Crossmatch 07/23/18 07/24/18 07/24/18 23:52 04:30 04:30 WBC RBC 2.12 L Hgb 6.3 L Hct 18.9 L* MCHC RDW Plt Count Lymph % (Auto) [place] % (Auto) Eos % (Auto) Lymph # Seg Neutrophils % Seg Neutrophils # Abs Lymphs (Manual) D-Dimer POC ABG pH POC ABG pCO2 POC ABG pO2 Sodium 127 L Potassium 5.2 H Chloride 83.9 L Carbon Dioxide 39 H BUN Creatinine 0.3 L Glucose POC Glucose 118 H Calcium 7.5 L AST ALT Lactate Dehydrogenase C-Reactive Protein Total Protein Albumin Triglycerides Lymph Enumerat CD4/CD8 % CD3 Cells Absolute CD3 Count % CD4 Cells Absolute CD4 Count % CD8 Cells Absolute CD8 Count % CD19 Cells Absolute CD19 Count HIV-1 RNA PCR copies/ml HIV-1 RNA (PCR) log HIV-1 Genotyping Miscellaneous Test Crossmatch 07/24/18 07/24/18 07/24/18 05:11 05:30 07:50 WBC RBC Hgb Hct MCHC RDW Plt Count Lymph % (Auto) [place] % (Auto) Eos % (Auto) Lymph # Seg Neutrophils % Seg Neutrophils # Abs Lymphs (Manual) D-Dimer POC ABG pH 7.462 H POC ABG pCO2 58.7 H POC ABG pO2 79 L Sodium Potassium Chloride Carbon Dioxide BUN Creatinine Glucose POC Glucose 145 H Calcium AST ALT Lactate Dehydrogenase C-Reactive Protein Total Protein Albumin Triglycerides Lymph Enumerat CD4/CD8 % CD3 Cells Absolute CD3 Count % CD4 Cells Absolute CD4 Count % CD8 Cells Absolute CD8 Count % CD19 Cells Absolute CD19 Count HIV-1 RNA PCR copies/ml HIV-1 RNA (PCR) log HIV-1 Genotyping Miscellaneous Test Crossmatch See Detail 07/25/18 07/25/18 07/25/18 09:30 09:30 17:05 WBC RBC 2.99 L Hgb 9.1 L Hct 27.0 L D MCHC RDW Plt Count Lymph % (Auto) [place] % (Auto) Eos % (Auto) Lymph # Seg Neutrophils % Seg Neutrophils # Abs Lymphs (Manual) D-Dimer POC ABG pH POC ABG pCO2 POC ABG pO2 Sodium 131 L Potassium 5.1 H Chloride 84.4 L Carbon Dioxide 39 H BUN Creatinine 0.3 L Glucose 133 H POC Glucose Calcium 8.0 L AST ALT Lactate Dehydrogenase C-Reactive Protein Total Protein Albumin Triglycerides Lymph Enumerat CD4/CD8 % CD3 Cells Absolute CD3 Count % CD4 Cells Absolute CD4 Count % CD8 Cells Absolute CD8 Count % CD19 Cells Absolute CD19 Count HIV-1 RNA PCR copies/ml HIV-1 RNA (PCR) log HIV-1 Genotyping Detected H Miscellaneous Test Crossmatch 07/26/18 07/26/18 07/26/18 00:18 04:07 05:50 WBC RBC 3.01 L Hgb 9.4 L Hct 27.2 L MCHC 35 H RDW Plt Count Lymph % (Auto) 10.4 L [place] % (Auto) Eos % (Auto) Lymph # 0.9 L Seg Neutrophils % 84.2 H Seg Neutrophils # Abs Lymphs (Manual) D-Dimer POC ABG pH 7.456 H POC ABG pCO2 61.4 H POC ABG pO2 68 L Sodium 135 L Potassium 5.5 H Chloride 88.4 L Carbon Dioxide 38 H BUN Creatinine 0.3 L Glucose POC Glucose Calcium AST ALT Lactate Dehydrogenase C-Reactive Protein Total Protein Albumin Triglycerides Lymph Enumerat CD4/CD8 % CD3 Cells Absolute CD3 Count % CD4 Cells Absolute CD4 Count % CD8 Cells Absolute CD8 Count % CD19 Cells Absolute CD19 Count HIV-1 RNA PCR copies/ml HIV-1 RNA (PCR) log HIV-1 Genotyping Miscellaneous Test Crossmatch 07/26/18 07/26/18 07/27/18 05:50 14:56 14:26 WBC RBC Hgb Hct MCHC RDW Plt Count Lymph % (Auto) [place] % (Auto) Eos % (Auto) Lymph # Seg Neutrophils % Seg Neutrophils # Abs Lymphs (Manual) D-Dimer POC ABG pH 7.472 H POC ABG pCO2 66.0 H 57.4 H POC ABG pO2 56 L 59 L Sodium 131 L Potassium 5.1 H Chloride 84.5 L Carbon Dioxide 39 H BUN Creatinine 0.3 L Glucose POC Glucose Calcium AST 78 H ALT 71 H Lactate Dehydrogenase C-Reactive Protein Total Protein 6.0 L Albumin 2.5 L Triglycerides Lymph Enumerat CD4/CD8 % CD3 Cells Absolute CD3 Count % CD4 Cells Absolute CD4 Count % CD8 Cells Absolute CD8 Count % CD19 Cells Absolute CD19 Count HIV-1 RNA PCR copies/ml HIV-1 RNA (PCR) log HIV-1 Genotyping Miscellaneous Test Crossmatch 07/28/18 07/28/18 07/28/18 05:20 05:20 05:20 WBC RBC 3.21 L Hgb 10.0 L Hct 29.9 L MCHC RDW 15.4 H Plt Count 451 H Lymph % (Auto) [place] % (Auto) Eos % (Auto) Lymph # Seg Neutrophils % 81.6 H Seg Neutrophils # Abs Lymphs (Manual) D-Dimer POC ABG pH POC ABG pCO2 POC ABG pO2 Sodium 136 L Potassium Chloride 89.9 L Carbon Dioxide 38 H BUN Creatinine 0.4 L Glucose POC Glucose Calcium 8.1 L AST 104 H ALT 113 H Lactate Dehydrogenase C-Reactive Protein Total Protein 6.2 L Albumin 2.5 L Triglycerides 209 H Lymph Enumerat CD4/CD8 % CD3 Cells Absolute CD3 Count % CD4 Cells Absolute CD4 Count % CD8 Cells Absolute CD8 Count % CD19 Cells Absolute CD19 Count HIV-1 RNA PCR copies/ml HIV-1 RNA (PCR) log HIV-1 Genotyping Miscellaneous Test Crossmatch 07/28/18 07/28/18 07/29/18 06:08 17:22 04:28 WBC RBC Hgb Hct MCHC RDW Plt Count Lymph % (Auto) [place] % (Auto) Eos % (Auto) Lymph # Seg Neutrophils % Seg Neutrophils # Abs Lymphs (Manual) D-Dimer POC ABG pH 7.328 L POC ABG pCO2 65.7 H 55.1 H POC ABG pO2 70 L 113 H 76 L Sodium Potassium Chloride Carbon Dioxide BUN Creatinine Glucose POC Glucose Calcium AST ALT Lactate Dehydrogenase C-Reactive Protein Total Protein Albumin Triglycerides Lymph Enumerat CD4/CD8 % CD3 Cells Absolute CD3 Count % CD4 Cells Absolute CD4 Count % CD8 Cells Absolute CD8 Count % CD19 Cells Absolute CD19 Count HIV-1 RNA PCR copies/ml HIV-1 RNA (PCR) log HIV-1 Genotyping Miscellaneous Test Crossmatch 08/02/18 08/02/18 08/03/18 06:30 06:30 06:30 WBC RBC 2.96 L 2.78 L Hgb 9.4 L 9.0 L Hct 27.6 L 26.3 L MCHC RDW 18.4 H 19.6 H Plt Count Lymph % (Auto) 11.1 L [place] % (Auto) Eos % (Auto) Lymph # 0.6 L 0.7 L Seg Neutrophils % 84.0 H 79.0 H Seg Neutrophils # Abs Lymphs (Manual) D-Dimer POC ABG pH POC ABG pCO2 POC ABG pO2 Sodium 133 L Potassium Chloride 92.7 L Carbon Dioxide BUN 22 H Creatinine 0.5 L Glucose POC Glucose Calcium 8.1 L AST ALT Lactate Dehydrogenase C-Reactive Protein Total Protein Albumin Triglycerides Lymph Enumerat CD4/CD8 % CD3 Cells Absolute CD3 Count % CD4 Cells Absolute CD4 Count % CD8 Cells Absolute CD8 Count % CD19 Cells Absolute CD19 Count HIV-1 RNA PCR copies/ml HIV-1 RNA (PCR) log HIV-1 Genotyping Miscellaneous Test Crossmatch 08/03/18 08/04/18 08/05/18 06:30 17:13 08:03 WBC RBC 2.77 L Hgb 8.8 L Hct 25.8 L MCHC RDW 20.4 H Plt Count Lymph % (Auto) [place] % (Auto) Eos % (Auto) Lymph # 0.9 L Seg Neutrophils % 76.6 H Seg Neutrophils # Abs Lymphs (Manual) D-Dimer POC ABG pH POC ABG pCO2 POC ABG pO2 Sodium 131 L Potassium Chloride 92.0 L Carbon Dioxide BUN Creatinine 0.3 L Glucose POC Glucose 120 H Calcium 8.0 L AST ALT Lactate Dehydrogenase C-Reactive Protein Total Protein 6.0 L Albumin 2.4 L Triglycerides Lymph Enumerat CD4/CD8 % CD3 Cells Absolute CD3 Count % CD4 Cells Absolute CD4 Count % CD8 Cells Absolute CD8 Count % CD19 Cells Absolute CD19 Count HIV-1 RNA PCR copies/ml HIV-1 RNA (PCR) log HIV-1 Genotyping Miscellaneous Test Crossmatch 08/05/18 08/06/18 08/06/18 08:03 07:38 22:01 WBC RBC Hgb Hct MCHC RDW Plt Count Lymph % (Auto) [place] % (Auto) Eos % (Auto) Lymph # Seg Neutrophils % Seg Neutrophils # Abs Lymphs (Manual) D-Dimer POC ABG pH 7.507 H POC ABG pCO2 33.6 L POC ABG pO2 113 H Sodium 132 L 131 L Potassium 3.5 L Chloride 93.0 L 92.4 L Carbon Dioxide BUN Creatinine 0.3 L 0.4 L Glucose POC Glucose Calcium 8.0 L 8.1 L AST ALT Lactate Dehydrogenase C-Reactive Protein Total Protein Albumin Triglycerides Lymph Enumerat CD4/CD8 % CD3 Cells Absolute CD3 Count % CD4 Cells Absolute CD4 Count % CD8 Cells Absolute CD8 Count % CD19 Cells Absolute CD19 Count HIV-1 RNA PCR copies/ml HIV-1 RNA (PCR) log HIV-1 Genotyping Miscellaneous Test Crossmatch 08/07/18 08/07/18 08/08/18 07:57 07:57 04:38 WBC 4.1 L RBC 3.00 L Hgb 9.4 L Hct 27.9 L MCHC RDW 19.2 H Plt Count Lymph % (Auto) [place] % (Auto) Eos % (Auto) Lymph # Seg Neutrophils % Seg Neutrophils # Abs Lymphs (Manual) D-Dimer POC ABG pH POC ABG pCO2 POC ABG pO2 Sodium 133 L Potassium 3.2 L Chloride 95.9 L Carbon Dioxide BUN Creatinine 0.4 L 0.4 L Glucose 104 H POC Glucose Calcium AST ALT Lactate Dehydrogenase C-Reactive Protein Total Protein Albumin 2.6 L Triglycerides Lymph Enumerat CD4/CD8 % CD3 Cells Absolute CD3 Count % CD4 Cells Absolute CD4 Count % CD8 Cells Absolute CD8 Count % CD19 Cells Absolute CD19 Count HIV-1 RNA PCR copies/ml HIV-1 RNA (PCR) log HIV-1 Genotyping Miscellaneous Test Crossmatch 08/11/18 08/11/18 08/12/18 06:55 06:55 00:00 WBC 3.3 L RBC 2.91 L Hgb 9.2 L Hct 26.9 L MCHC RDW 18.9 H Plt Count 503 H Lymph % (Auto) [place] % (Auto) Eos % (Auto) 7.8 H Lymph # 0.9 L Seg Neutrophils % Seg Neutrophils # Abs Lymphs (Manual) D-Dimer POC ABG pH POC ABG pCO2 POC ABG pO2 Sodium Potassium Chloride 108.8 H Carbon Dioxide BUN Creatinine 0.4 L Glucose POC Glucose 106 H Calcium 8.1 L AST ALT Lactate Dehydrogenase C-Reactive Protein Total Protein Albumin Triglycerides Lymph Enumerat CD4/CD8 % CD3 Cells Absolute CD3 Count % CD4 Cells Absolute CD4 Count % CD8 Cells Absolute CD8 Count % CD19 Cells Absolute CD19 Count HIV-1 RNA PCR copies/ml HIV-1 RNA (PCR) log HIV-1 Genotyping Miscellaneous Test Crossmatch 08/12/18 08/12/18 08/12/18 04:38 04:38 18:13 WBC 3.0 L RBC 3.04 L Hgb 9.5 L Hct 28.4 L MCHC RDW 19.0 H Plt Count 448 H Lymph % (Auto) [place] % (Auto) Eos % (Auto) 7.1 H Lymph # 0.9 L Seg Neutrophils % Seg Neutrophils # 1.6 L Abs Lymphs (Manual) D-Dimer POC ABG pH POC ABG pCO2 POC ABG pO2 Sodium Potassium 3.4 L Chloride 110.1 H Carbon Dioxide 18 L BUN Creatinine 0.4 L Glucose POC Glucose 108 H Calcium 8.1 L AST 41 H ALT Lactate Dehydrogenase C-Reactive Protein Total Protein 5.8 L Albumin 2.2 L Triglycerides Lymph Enumerat CD4/CD8 % CD3 Cells Absolute CD3 Count % CD4 Cells Absolute CD4 Count % CD8 Cells Absolute CD8 Count % CD19 Cells Absolute CD19 Count HIV-1 RNA PCR copies/ml HIV-1 RNA (PCR) log HIV-1 Genotyping Miscellaneous Test Crossmatch 08/13/18 08/13/18 05:58 05:58 WBC 2.9 L RBC 2.71 L Hgb 8.6 L Hct 25.1 L MCHC RDW 19.1 H Plt Count Lymph % (Auto) [place] % (Auto) 9.8 H Eos % (Auto) 4.8 H Lymph # 0.9 L Seg Neutrophils % Seg Neutrophils # 1.6 L Abs Lymphs (Manual) D-Dimer POC ABG pH POC ABG pCO2 POC ABG pO2 Sodium Potassium Chloride 111.1 H Carbon Dioxide 19 L BUN Creatinine 0.4 L Glucose POC Glucose Calcium 8.0 L AST ALT Lactate Dehydrogenase C-Reactive Protein Total Protein 5.3 L Albumin 2.4 L Triglycerides Lymph Enumerat CD4/CD8 % CD3 Cells Absolute CD3 Count % CD4 Cells Absolute CD4 Count % CD8 Cells Absolute CD8 Count % CD19 Cells Absolute CD19 Count HIV-1 RNA PCR copies/ml HIV-1 RNA (PCR) log HIV-1 Genotyping Miscellaneous Test Crossmatch Allied health notes reviewed: nursing
--- NOTE | 2018-08-14 14:49 | Progress Note ---
Assessment and Plan Assessment and plan: Resume care of patient on Day 34 Patient is a 37 yo man with a history of HIV and tobacco dependency who presents from [facility] to [facility] ED with sob and cough. Pt admitted to [facility] and initiated on Pneumonia protocol. In the ED, temp 99.8, HR 104, R 29, O2 sat 77%, BP 94/50. WBC 6.1, Hg 9.6, Plat 398. Creat 0.6. Blood culture 07/11/2018 no growth today. Sputum culture 07/11/2018 no growth today. Repeat sputum culture on 07/15/18 grew MRSA and C.albicans. Chest CT showed bilateral patchy and somewhat confluent alveolar infiltrates and interstitial infiltrates. No effusions. Mild cardiomegaly. Patient required emergent intubation following admission to the [facility]. He underwent trach and PEG on 08/01/18. * CT head: No CT evidence of acute intracranial abnormality. Pansinus disease * CTA CHEST: IMPRESSION: No pulmonary embolus. Bilateral patchy and somewhat confluent alveolar infiltrates and interstitial infiltrates. Noeffusions. Mild cardiomegaly. Runnings likely reflect a viral pneumonia or inhalational process * CXR IMPRESSION: Heart size is normal.There are bilateral lower lobe infilt rates. These are slightly worse than the prior study.. There is no pleural effusion or pneumothorax. Endotracheal tube is in the mid trachea. NG tube is in the stomach. There is a right-sided PICC line. The tip is in the superior vena cava.. 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 Severe Protein Malnutrition: [employer] Operator to follow AIDS with history of noncompliance: ID following AOCD: monitor cbc closely Elevated d/DIMER- NO PE noted on CTA chest Disposition: continue inpatient care, [facility] dismissed charges, now needs placement, hopefully he can live with his sister. History Interval history: Patient was seen and examined. Follow-up on current diagnosis of respiratory failure, now with Trach, off O2. No overnight events reported to me. Imaging, nursing note, chart, labs and old chart reviewed. No new c/o per patient Hospitalist Physical - Physical exam Narrative exam: Gen: thin, critically ill, trach in place HEENT: NCAT, EOMI, PERRL, OP ETT and NGT in place Neck: supple, no JVD CVS/Heart: Regular tachycardia, normal S1S2, pulses present bilaterally Chest/Lungs: tachypenic, diminished bs bilateral, Symmetrical chest expansion, good air entry bilaterally GI/Abdomen: soft, PEG in place, good bowel sounds, no guarding or rebound /Bladder: no suprapubic tenderness, Extermity/Skin: poor skin tone MSK: moving all ext Neuro: No new focal deficits Psych: calm - Constitutional Vitals: Temp Pulse Resp BP Pulse Ox 98.5 F 107 H 16 106/61 96 08/14/18 12:54 08/14/18 12:54 08/14/18 12:54 08/14/18 12:54 08/14/18 12:54 General appearance: Present: no acute distress, cachectic, disheveled, other (tracheostomy) Results - Labs CBC & Chem 7: 08/13/18 05:58 08/13/18 05:58 Labs: Laboratory Last Values WBC 2.9 K/mm3 (4.5-11.0) L 08/13/18 05:58 RBC 2.71 M/mm3 (3.65-5.03) L 08/13/18 05:58 Hgb 8.6 gm/dl (11.8-15.2) L 08/13/18 05:58 Hct 25.1 % (35.5-45.6) L 08/13/18 05:58 MCV 93 fl (84-94) 08/13/18 05:58 MCH 32 pg (28-32) 08/13/18 05:58 MCHC 34 % (32-34) 08/13/18 05:58 RDW 19.1 % (13.2-15.2) H 08/13/18 05:58 Plt Count 428 K/mm3 (140-440) 08/13/18 05:58 Lymph % (Auto) 31.0 % (13.4-35.0) 08/13/18 05:58 [place] % (Auto) 9.8 % (0.0-7.3) H 08/13/18 05:58 Eos % (Auto) 4.8 % (0.0-4.3) H 08/13/18 05:58 Baso % (Auto) 0.9 % (0.0-1.8) 08/13/18 05:58 Lymph # 0.9 K/mm3 (1.2-5.4) L 08/13/18 05:58 [place] # 0.3 K/mm3 (0.0-0.8) 08/13/18 05:58 Eos # 0.1 K/mm3 (0.0-0.4) 08/13/18 05:58 Baso # 0.0 K/mm3 (0.0-0.1) 08/13/18 05:58 Add Manual Diff Complete 07/25/18 09:30 Total Counted 100 07/25/18 09:30 Seg Neutrophils % 53.5 % (40.0-70.0) 08/13/18 05:58 Seg Neuts % (Manual) 63.0 % (40.0-70.0) 07/25/18 09:30 0 % 07/25/18 09:30 35.0 % (13.4-35.0) 07/25/18 09:30 Reactive Lymphs % (Man) 0 % 07/25/18 09:30 1.0 % (0.0-7.3) 07/25/18 09:30 0 % (0.0-4.3) 07/25/18 09:30 0 % (0.0-1.8) 07/25/18 09:30 0 % 07/25/18 09:30 1.0 % 07/25/18 09:30 0 % 07/25/18 09:30 0 % 07/25/18 09:30 Nucleated RBC % Not Reportable 07/25/18 09:30 Seg Neutrophils # 1.6 K/mm3 (1.8-7.7) L 08/13/18 05:58 Seg Neutrophils # Man 4.9 K/mm3 (1.8-7.7) 07/25/18 09:30 Band Neutrophils # 0.0 K/mm3 07/25/18 09:30 Abs Lymphs (Manual) 220 cells/uL (850-3900) L 07/12/18 19:29 2.7 K/mm3 (1.2-5.4) 07/25/18 09:30 Abs React Lymphs (Man) 0.0 K/mm3 07/25/18 09:30 0.1 K/mm3 (0.0-0.8) 07/25/18 09:30 0.0 K/mm3 (0.0-0.4) 07/25/18 09:30 0.0 K/mm3 (0.0-0.1) 07/25/18 09:30 0.0 K/mm3 07/25/18 09:30 0.1 K/mm3 07/25/18 09:30 0.0 K/mm3 07/25/18 09:30 Blast Cells # 0.0 K/mm3 07/25/18 09:30 WBC Morphology Not Reportable 07/25/18 09:30 Hypersegmented Neuts Not Reportable 07/25/18 09:30 Hyposegmented Neuts Not Reportable 07/25/18 09:30 Hypogranular Neuts Not Reportable 07/25/18 09:30 Not Reportable 07/25/18 09:30 Not Reportable 07/25/18 09:30 Not Reportable 07/25/18 09:30 Not Reportable 07/25/18 09:30 Not Reportable 07/25/18 09:30 Not Reportable 07/25/18 09:30 Consistent w auto 07/25/18 09:30 Not Reportable 07/25/18 09:30 Plt Clumps, EDTA Not Reportable 07/25/18 09:30 Not Reportable 07/25/18 09:30 Not Reportable 07/25/18 09:30 Not Reportable 07/25/18 09:30 Plt Morphology Comment Not Reportable 07/25/18 09:30 RBC Morphology Not Reportable 07/25/18 09:30 Dimorphic RBCs Not Reportable 07/25/18 09:30 Few 07/25/18 09:30 Not Reportable 07/25/18 09:30 Not Reportable 07/25/18 09:30 1+ 07/25/18 09:30 Not Reportable 07/25/18 09:30 Few 07/25/18 09:30 Not Reportable 07/25/18 09:30 Not Reportable 07/25/18 09:30 Not Reportable 07/25/18 09:30 Rare 07/25/18 09:30 Not Reportable 07/25/18 09:30 Not Reportable 07/25/18 09:30 Not Reportable 07/25/18 09:30 Not Reportable 07/25/18 09:30 Not Reportable 07/25/18 09:30 Not Reportable 07/25/18 09:30 Not Reportable 07/25/18 09:30 Not Reportable 07/25/18 09:30 Not Reportable 07/25/18 09:30 Acanthocytes (Spur) Not Reportable 07/25/18 09:30 Rouleaux Not Reportable 07/25/18 09:30 Not Reportable 07/25/18 09:30 Not Reportable 07/25/18 09:30 Not Reportable 07/25/18 09:30 Not Reportable 07/25/18 09:30 Hem Pathologist Commnt No 07/25/18 09:30 1298.70 ng/mlDDU (0-234) H 07/11/18 15:04 POC ABG pH 7.507 (7.35-7.45) H 08/06/18 22:01 POC ABG pCO2 33.6 (35-45) L 08/06/18 22:01 POC ABG pO2 113 (80-105) H 08/06/18 22:01 POC ABG HCO3 26.6 (22-26 mml/L) 08/06/18 22:01 POC ABG Total CO2 28 (23-27mmol/L) 08/06/18 22:01 POC ABG O2 Sat 99 08/06/18 22:01 POC ABG Base Excess 4 ((-2) - (+3)mmol/L) 08/06/18 22:01 35 % 08/06/18 22:01 Sodium 140 mmol/L (137-145) 08/13/18 05:58 Potassium 3.6 mmol/L (3.6-5.0) 08/13/18 05:58 Chloride 111.1 mmol/L (98-107) H 08/13/18 05:58 Carbon Dioxide 19 mmol/L (22-30) L 08/13/18 05:58 14 mmol/L 08/13/18 05:58 BUN 11 mg/dL (9-20) 08/13/18 05:58 0.4 mg/dL (0.8-1.5) L 08/13/18 05:58 Estimated GFR > 60 ml/min 08/13/18 05:58 28 % 08/13/18 05:58 Glucose 91 mg/dL (75-100) 08/13/18 05:58 POC Glucose 92 (70-105) 08/12/18 23:56 Lactic Acid 1.80 mmol/L (0.7-2.0) 07/11/18 21:01 Calcium 8.0 mg/dL (8.4-10.2) L 08/13/18 05:58 Magnesium 1.70 mg/dL (1.7-2.3) 08/07/18 07:57 < 0.20 mg/dL (0.1-1.2) 08/13/18 05:58 AST 35 units/L (5-40) 08/13/18 05:58 ALT 49 units/L (7-56) 08/13/18 05:58 76 units/L (35-129) 08/13/18 05:58 731 units/L (91-180) H 07/12/18 19:29 < 0.010 ng/mL (0.00-0.029) 07/11/18 15:04 2.70 mg/dL (0.00-1.30) H 07/15/18 14:09 NT-Pro-B Natriuret Pep 249.7 pg/mL (0-450) 07/11/18 15:04 5.3 g/dL (6.3-8.2) L 08/13/18 05:58 2.4 g/dL (3.9-5) L 08/13/18 05:58 0.8 % 08/13/18 05:58 Triglycerides 209 mg/dL (2-149) H 07/28/18 05:20 Yellow (Yellow) 07/15/18 14:14 Clear (Clear) 07/15/18 14:14 6.0 (5.0-7.0) 07/15/18 14:14 Ur Specific [place] 1.015 (1.003-1.030) 07/15/18 14:14 30 mg/dl mg/dL (Negative) 07/15/18 14:14 Neg mg/dL (Negative) 07/15/18 14:14 Neg mg/dL (Negative) 07/15/18 14:14 Neg (Negative) 07/15/18 14:14 Neg (Negative) 07/15/18 14:14 Neg (Negative) 07/15/18 14:14 < 2.0 mg/dL (<2.0) 07/15/18 14:14 Ur Leukocyte Esterase Neg (Negative) 07/15/18 14:14 2.0 /HPF (0.0-6.0) 07/15/18 14:14 6.0 /HPF (0.0-6.0) 07/15/18 14:14 21 mmol/L 07/19/18 14:27 Lymph Enumerat CD4/CD8 0.04 (0.86-5.00) L 07/12/18 19:29 % CD3 Cells 88 % (57-85) H 07/12/18 19:29 194 cells/uL (840-3060) L 07/12/18 19:29 % CD4 Cells 3 % (30-61) L 07/12/18 19:29 7 cells/uL (490-1740) L 07/12/18 19:29 % CD8 Cells 75 % (12-42) H 07/12/18 19:29 177 cells/uL (180-1170) L 07/12/18 19:29 % CD19 Cells 4 % (6-29) L 07/12/18 19:29 9 cells/uL (110-660) L 07/12/18 19:29 RPR Nonreactive (Nonreactive) 07/12/18 23:38 CMV DNA PCR log copper miner/mL See scanned report 08/06/18 07:38 Hepatitis A IgM Ab Non-reactive (NonReactive) 07/12/18 23:38 Hep Bs Antigen Non-reactive (Negative) 07/12/18 23:38 Hep B Core IgM Ab Non-reactive (NonReactive) 07/12/18 23:38 Non-reactive (NonReactive) 07/12/18 23:38 HIV-1 RNA PCR copies/ml 751737 Copies/mL H 07/12/18 19:29 5.72 Log cps/mL H 07/12/18 19:29 Detected H 07/25/18 17:05 Flexitest 1 H 05/06/19 07:21 Blood Type O POSITIVE 07/24/18 07:50 Antibody Screen Positive 07/24/18 07:50 Prewarmed Antibody Srcn Positive 07/18/18 03:10 Antibody Identification Anti-Adrianna 07/24/18 07:50 Direct Antiglob Test Negative 07/24/18 07:50 NIKUNJ, Poly Interpret Negative 07/24/18 07:50 Crossmatch See Detail 07/24/18 07:50 Active Medications - Current Medications Current Medications: Generic Name Dose Route Start Last Admin Trade Name Freq PRN Reason Stop Dose Admin Acetaminophen 650 mg 07/12/18 18:07 08/12/18 22:46 Tylenol FEEDTUBE 650 mg Q6H PRN Administration Non Cardiac Pain or Temp>100.5 Albuterol 2.5 mg 07/11/18 17:16 07/26/18 12:07 Proventil IH 2.5 mg Q3HRT PRN Administration Shortness Of Breath Lipase/Protease/Amylase 1 each 08/09/18 17:59 Pancreaze 10,500 Unit FEEDTUBE PRN PRN For Clogged Feeding Tube Bismuth Subsalicylate 262 mg 08/12/18 15:00 Pepto Bismol PO Q6H PRN Diarrhea Doxazosin Mesylate 2 mg 07/18/18 12:00 08/14/18 11:48 Cardura PO 2 mg QDAY HE Administration Emtricitabine 200 mg 08/07/18 10:00 08/14/18 11:49 Emtriva PO 200 mg QDAY HE Administration Famotidine 20 mg 07/16/18 22:00 08/14/18 11:50 Pepcid PO 20 mg BID HE Administration Heparin Sodium (Porcine) 5,000 unit 08/03/18 22:00 08/14/18 12:08 Heparin SUB-Q 5,000 unit TID HE Administration Hydrophilic Ointment 1 applic 07/12/18 13:30 Vaseline Lip Therapy TP Q2HR PRN Dry Lips Sodium Chloride 1,000 mls @ 100 mls/hr 08/08/18 22:00 08/14/18 04:26 Nacl 0.9% 1000 Ml IV 100 mls/hr DIRECT HE Administration Midazolam HCl 2 mg 07/16/18 13:06 07/26/18 17:42 Versed IV 2 mg Q2H PRN Administration AGITATION Multi-Ingred Cream/Lotion/Oil/Oint 1 applic 07/12/18 13:30 Artificial Tears Ophth Oint OU Q4HR PRN Dry Eye(s) Ondansetron HCl 4 mg 08/12/18 14:05 Zofran IV QID PRN Nausea And Vomiting Quetiapine Fumarate 200 mg 08/07/18 22:00 08/13/18 21:19 Seroquel PO 200 mg QHS HE Administration Simple Syrup 15 ml 08/09/18 17:59 Simple Syrup FEEDTUBE PRN PRN Hypoglycemia Simple Syrup 30 ml 08/09/18 17:59 Simple Syrup FEEDTUBE PRN PRN Hypoglycemia Sodium Bicarbonate 325 mg 08/09/18 17:59 Sodium Bicarbonate FEEDTUBE PRN PRN For Clogged Feeding Tube Sodium Chloride 10 ml 07/11/18 22:00 08/14/18 12:12 Sodium Chloride Flush Syringe 10 Ml IV Not Given BID HE Sodium Chloride 10 ml 07/11/18 17:16 07/18/18 09:00 Sodium Chloride Flush Syringe 10 Ml IV 10 ml PRN PRN Administration LINE FLUSH Tenofovir Disoproxil Fumarate 300 mg 08/07/18 10:00 08/14/18 11:49 Viread PO 300 mg QDAY HE Administration Trimethoprim/Sulfamethoxazole 160 mg 08/01/18 10:00 08/14/18 11:50 Bactrim 200-40 Mg/5 Ml PO 160 mg DAILY HE Administration Nutrition/Malnutrition Assess - Dietary Evaluation Nutrition/Malnutrition Findings: Nutrition Notes Start: 07/12/18 09:38 Freq: Status: Active Protocol: Document 08/09/18 16:07 RM (Rec: 08/09/18 17:15 [id number]) Nutrition Notes Initial or Follow up Reassessment Current Diagnosis Sepsis,Respiratory Failure Other Pertinent Diagnosis Bilat pneu, HIV/AIDS, Diarrhea Current Diet Osmolite 1.5 at 65 ml/hr Labs/Tests Reviewed Pertinent Medications Reviewed Height 5 ft 11 in Weight 49 kg [place] Body Weight (kg) 78.18 BMI 15.0 Weight change and time frame Current wt obtained rom bedscale Subjective/Other Information Observed Osmolite 1.5 infusing at 65 ml/hr. Per nurse pt is tolerating TF. Case management requested bolus regimen in preparation for D/C soon. Percent of energy/protein needs met: 100%/100% Burn Absent Trauma Absent #2 Nutrition Diagnosis Inadequate oral intake Diagnosis Progress(for reassessment Continues documentation) #1 Nutrition Diagnosis Malnutrition Diagnosis Progress(for reassessment Continues documentation) Is patient on ventilator? No Is Patient Ambulatory and/or Out of Bed No REE-([place]-St Jeor-confined to bed) 1733.424 Kcal/Kg value to use for calculation 48 Approximate Energy Requirements Using 2352 kcal/Kg Calculation Used for Recommendations Kcal/kg Additional Notes Pro needs 1.2-1.5 g/k-83g /day Fluid needs 1ml/kcal Nutrition Intervention Change Diet Order: TF Nutrition Support: 6 1/2 cartons of Osmolite 1.5: 1 1/2 cartons q 3 hours from 8 am to 2 pm. 1 carton q 3 hrs from 2 pm to 8 pm. Water flush of 100 mls before and after each feeding. Kcal 2,307 Protein (gm) 98 Fluid (mL) 1,177 Goal #1 TF tolerance Goal #2 TF to continue to meet 90-100% energy and pro needs Goal #3 Wt maintenance and/or gain Anticipated Discharge Needs: Unable to determine at this time Follow-Up By: 08/14/18 Additional Comments Follow for TF tolerance, POC
--- NOTE | 2018-08-14 15:59 | Progress Note ---
Assessment and Plan Cultures: Blood culture 07/11/2018 no growth today. Cryptococcal antigen : negative MRSA PCR: positive Blood culture 07/15/2018: in progress Urine culture 07/15/2018: no growth in 24 hours Sputum culture 07/15/18: MRSA, Jannette CMV PCR 07/15/2018 33,392 copies 08/06/2018 CMV PCR: 363 Assessment: 37 y/o male currently in [facility] with history of HIV infection of unknown duration, noncompliant with antiretroviral medication, severe malnutrition; admitted on 07/11/2018, brought by law enforcement, due to 2-week history of shortness of breath, generalized weakness and productive cough: 1) Sepsis with new septic shock: Resolved. Etiology most likely pneumonia. 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 CMV +/- MRSA. Chest CT showed bilateral patchy and somewhat confluent alveolar infiltrates and interstitial infiltrates. No effusions. Sputum culture 07/15 grew MRSA and Jannette. PJP DFA was also positive. Completed linezolid x 10 days until 07/23. S/p 21 days bactrim IV until 07/31/2018. Now on prophylaxis with Bactrim. 3) HIV with AIDS: Patient had not taken his HIV medication for at least 6 months prior due to his incarceration. On admission he reported 40lbs unintentional weight loss for 2 months and intermittent loose stools over the past 2 weeks. VL 523,000/ CD4=7. Pneumocytosis Jirovecii positive. RPR nonreactive. Hepatitis panel negative. HIV Genotype with wild type, no resistance associated mutations. Was started on HIV therapy: emtricitabine, tenofovir and dolutegravir (started on 08/07/2018). Now on Bactrim prophylaxis. Azithromycin prophylaxis is not needed since patient is now on ART. 4) Diarrhea: continuing. Could be from HIV enteropathy v/s from tube feeds. - f/u Giardia, Cryptosporidium Stool Ag 5) Acute respiratory failure: not better, from pneumonia. improving s/p trach/PEG placement 08/01. Trach capped. 6) Anemia: s/p transfusion 7) Facial rash: ? seborrheic dermatitis. improving. 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 Completed 21 days of Valcyte. Additional therapy not needed since patient is now on ARVs and there is no evidence of end organ damage from CMV. Recommendations: - continue bactrim DS 1 tab q day for PJP prophylaxis, will need to continue upon discharge - continue HIV therapy: emtricitabine, tenofovir and dolutegravir (started on 08/07/2018). Will need to follow up with HIV clinic at [facility]. - f/u Giardia, Cryptosporidium Stool Ag - contact isolation for MRSA MD [facility] C: [phone] O: [phone] F: [phone] Subjective Date of service: 08/14/18 Principal diagnosis: Acute hypoxemic resp failure; Bilateral pneumonia (PJP); HIV/AIDS Interval history: No fever. Diarrhea present but slowing down. On tube feeds. Objective - Exam Narrative Exam: Physical Exam: Constitutional: Alert, cooperative. No acute distress. Cachexia + Head, Ears, Nose: Normocephalic, atraumatic. External ears, nose normal Eyes: Conjunctivae/corneas clear. No icterus. No ptosis. Neck: trach capped + Oral: mucosa moist, no ulcers, no thrush Cardiovascular: S1, S2 normal. Respiratory: clear bilaterally. no wheeze GI: Soft, non-tender; bowel sounds normal. No peritoneal signs. G tube + Musculoskeletal: No pedal edema, no cyanosis. Skin: No rash or abscess Hem/Lymphatic: No palpable cervical or supraclavicular nodes. No lymphangitis Psych: no agitation Neurological: Awake, alert, follows commands - Constitutional Vitals: Vital Signs Temp Pulse Resp BP Pulse Ox 98.5 F 107 H 16 106/61 96 08/14/18 12:54 08/14/18 12:54 08/14/18 12:54 08/14/18 12:54 08/14/18 12:54 Temperature -Last 24 Hours Temperature 98.5 F Temperature 98.4 F Temperature 98.5 F Temperature 98.7 F - Labs CBC & Chem 7: 08/13/18 05:58 08/13/18 05:58
--- NOTE | 2018-08-14 17:10 | Consultation ---
History of Present Illness Consult date: 08/14/18 Chief complaint: sacral wound - History of present illness History of present illness: 37yo M with HIV and presented to the ER with SOB on 07/11/18 . He was found have PCP pneumonia and respiratory failure. He was unable to be weaned from vent and trach/PEG was performed at bedside. Since then he has been weaned off supplemental O2 and is awaiting placement. During his admission he was found to have an unstageable sacral wound. Surgery is being consulted to evaluate for debridement. Patient has no f/c, cp, sob. c/o dry cough for last 3 days. No n/v. Tolerating TF. Past History Past Medical History: HIV/AIDS Past Surgical History: Other (Trach/PEG) Social history: single, smoking Family history: no significant family history (reviewed) Medications and Allergies Allergies Allergy/AdvReac Type Severity Reaction Status Date / Time No Known Allergies Allergy Unverified 07/11/18 13:43 Home Medications Medication Instructions Recorded Confirmed Last Taken Type Fluticasone [Flonase] 1 spray NS DAILY 07/11/18 07/11/18 Unknown History Active Meds: Active Medications Acetaminophen (Tylenol) 650 mg FEEDTUBE Q6H PRN PRN Reason: Non Cardiac Pain or Temp>100.5 Last Admin: 08/12/18 22:46 Dose: 650 mg Documented by: Albuterol (Proventil) 2.5 mg IH Q3HRT PRN PRN Reason: Shortness Of Breath Last Admin: 07/26/18 12:07 Dose: 2.5 mg Documented by: Lipase/Protease/Amylase (Pancreaznery Dr 10,500 Unit) 1 each FEEDTUBE PRN PRN PRN Reason: For Clogged Feeding Tube Bismuth Subsalicylate (Pepto Bismol) 262 mg PO Q6H PRN PRN Reason: Diarrhea Doxazosin Mesylate (Cardura) 2 mg PO QDAY [facility] Last Admin: 08/14/18 11:48 Dose: 2 mg Documented by: Emtricitabine (Emtriva) 200 mg PO QDAY [facility] Last Admin: 08/14/18 11:49 Dose: 200 mg Documented by: Famotidine (Pepcid) 20 mg PO BID [facility] Last Admin: 08/14/18 11:50 Dose: 20 mg Documented by: Heparin Sodium (Porcine) (Heparin) 5,000 unit SUB-Q TID [facility] Last Admin: 08/14/18 12:08 Dose: 5,000 unit Documented by: Hydrophilic Ointment (Vaseline Lip Therapy) 1 applic TP Q2HR PRN PRN Reason: Dry Lips Sodium Chloride (Nacl 0.9% 1000 Ml) 1,000 mls @ 100 mls/hr IV DIRECT [facility] Last Admin: 08/14/18 04:26 Dose: 100 mls/hr Documented by: Midazolam HCl (Versed) 2 mg IV Q2H PRN PRN Reason: AGITATION Last Admin: 07/26/18 17:42 Dose: 2 mg Documented by: Multi-Ingred Cream/Lotion/Oil/Oint (Artificial Tears Ophth Oint) 1 applic OU Q4HR PRN PRN Reason: Dry Eye(s) Ondansetron HCl (Zofran) 4 mg IV QID PRN PRN Reason: Nausea And Vomiting Quetiapine Fumarate (Seroquel) 200 mg PO QHS [facility] Last Admin: 08/13/18 21:19 Dose: 200 mg Documented by: Simple Syrup (Simple Syrup) 15 ml FEEDTUBE PRN PRN PRN Reason: Hypoglycemia Simple Syrup (Simple Syrup) 30 ml FEEDTUBE PRN PRN PRN Reason: Hypoglycemia Sodium Bicarbonate (Sodium Bicarbonate) 325 mg FEEDTUBE PRN PRN PRN Reason: For Clogged Feeding Tube Sodium Chloride (Sodium Chloride Flush Syringe 10 Ml) 10 ml IV BID [facility] Last Admin: 08/14/18 12:12 Dose: Not Given Documented by: Sodium Chloride (Sodium Chloride Flush Syringe 10 Ml) 10 ml IV PRN PRN PRN Reason: LINE FLUSH Last Admin: 07/18/18 09:00 Dose: 10 ml Documented by: Tenofovir Disoproxil Fumarate (Viread) 300 mg PO QDAY [facility] Last Admin: 08/14/18 11:49 Dose: 300 mg Documented by: Trimethoprim/Sulfamethoxazole (Bactrim 200-40 Mg/5 Ml) 160 mg PO DAILY [facility] Last Admin: 08/14/18 11:50 Dose: 160 mg Documented by: Review of Systems All systems: negative (10 pt ROS performed and negative except for that listed in HPI) Exam Vital Signs BP 94/50 07/11/18 13:39 Narrative exam: Gen; AAOx3. NAD ENT: tracheostomy in place - site c/d/i CV: s1, s2+ resp; even and unlabored Ext; no c/c/e Sacrum: unstageable sacral wound Results - Labs 08/13/18 05:58 08/13/18 05:58 Assessment and Plan 37 yo M with unstageable sacral wound, malnutrition Plan: 1. Pt with sensation in the area of the wound, will plan for debridement in the OR tomorrow. I discussed all risks, benefits, and alternatives to surgery with patient and consent obtained. 2. hold TF after MN 3. NPO p MN 4. will arrange follow up in Wound care clinic upon dc. Thank you, please call with questions.
[2018-08-15] MEDS: NACL 0.9% 1000 ML 1,000 ML IV SCH (07:18)
[2018-08-15] MEDS: HEPARIN SUB-Q SCH ×3 (08:09→21:57)
--- NOTE | 2018-08-15 09:20 | Progress Note ---
Assessment and Plan Cultures: Blood culture 07/11/2018 no growth today. Cryptococcal antigen : negative MRSA PCR: positive Blood culture 07/15/2018: in progress Urine culture 07/15/2018: no growth in 24 hours Sputum culture 07/15/18: MRSA, Jannette CMV PCR 07/15/2018 33,392 copies 08/06/2018 CMV PCR: 363 08/23/2018 Crypto and Giardia AG- Positive Assessment: 37 y/o male currently in detention with history of HIV infection of unknown duration, noncompliant with antiretroviral medication, severe malnutrition; admitted on 07/11/2018, brought by law enforcement, due to 2-week history of shortness of breath, generalized weakness and productive cough: 1) Sepsis with new septic shock: Resolved. Etiology most likely pneumonia. 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 CMV +/- MRSA. Chest CT showed bilateral patchy and somewhat confluent alveolar infiltrates and interstitial infiltrates. No effusions. Sputum culture 07/15 grew MRSA and Jannette. PJP DFA was also positive. Completed linezolid x 10 days until 07/23. S/p 21 days bactrim IV until 07/31/2018. Now on prophylaxis with Bactrim. 3) HIV with AIDS: Patient had not taken his HIV medication for at least 6 months prior due to his incarceration. On admission he reported 40lbs unintentional weight loss for 2 months and intermittent loose stools over the past 2 weeks. VL 523,000/ CD4=7. Pneumocytosis Jirovecii positive. RPR nonreactive. Hepatitis panel negative. HIV Genotype with wild type, no resistance associated mutations. Was started on HIV therapy: emtricitabine, tenofovir and dolutegravir (started on 08/07/2018). Now on Bactrim prophylaxis. Azithromycin prophylaxis is not needed since patient is now on ART. 4) Diarrhea: continuing. Giardia, Cryptosporidium Stool Ag positive - Will start Flagyl for total 7 days. 5) Acute respiratory failure: not better, from pneumonia. improving s/p trach/PEG placement 08/01. Trach capped. 6) Anemia: s/p transfusion 7) Facial rash: ? seborrheic dermatitis. improving. 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 Completed 21 days of Valcyte. Additional therapy not needed since patient is now on ARVs and there is no evidence of end organ damage from CMV. 9) Sacral wound: Excisional debridement of stage [address] Walters following. Recommendations: - continue bactrim DS 1 tab q day for PJP prophylaxis, will need to continue upon discharge - continue HIV therapy: emtricitabine, tenofovir and dolutegravir (started on 08/07/2018). [facility] need [facility] - contact isolation for MRSA -Start Flagyl 500mg every 8 hours for7 days [facility] M: [phone] O:[phone] Subjective Date of service: 08/15/18 Principal diagnosis: Acute hypoxemic resp failure; Bilateral pneumonia (PJP); HIV/AIDS Interval history: Patient seen and examined. Awake, alert, no acute distress reported. No fevers. Objective - Exam Narrative Exam: Constitutional: Alert, cooperative. No acute distress. Cachexia + Head, Ears, Nose: Normocephalic, atraumatic. External ears, nose normal Eyes: Conjunctivae/corneas clear. No icterus. No ptosis. Neck: trach capped Oral: mucosa moist, no ulcers, no thrush Cardiovascular: S1, S2 normal. Respiratory: clear bilaterally. no wheeze GI: Soft, non-tender; bowel sounds normal. No peritoneal signs. G tube + Musculoskeletal: No pedal edema, no cyanosis. Skin: Stage 3 sacral wound. s/p excisional debridement today. Hem/Lymphatic: No palpable cervical or supraclavicular nodes. No lymphangitis Psych: no agitation Neurological: Awake, alert, follows commands - Constitutional Vitals: Vital Signs Temp Pulse Resp BP Pulse Ox 98.5 F 94 H 20 96/57 97 08/15/18 05:31 08/15/18 05:31 08/15/18 05:31 08/15/18 05:31 08/15/18 07:41 Temperature -Last 24 Hours Temperature 98.5 F Temperature 98.4 F Temperature 98.9 F Temperature 98.5 F - Labs CBC & Chem 7: 08/13/18 05:58 08/13/18 05:58
[2018-08-15] MEDS ORDERED: MARCAINE 0.5% INFILTRATI ONE ×3 (10:35→11:20)
--- NOTE | 2018-08-15 11:03 | Anesthesia Consultation ---
Anesthesia Consult and Med Hx Date of service: 08/15/18 - Pulmonary Exam CTA: No (Patient has a trach on room air ) - Cardiac Exam Cardiac Exam: RRR - Pre-Operative Health Status ASA Pre-Surgery Classification: ASA3 Proposed Anesthetic Plan: MAC - Pulmonary Hx Respiratory Symptoms: Yes Hx Pneumonia: Yes (PJP PNA w/ vent dependence) - Cardiovascular System Hx Hypertension: No Hx Heart Attack/AMI: No Hx Pacemaker: No Hx Internal Defibrillator: No - Central Nervous System CVA: No - Gastrointestinal Hx Gastroesophageal Reflux Disease: Yes (dysphagia) - Endocrine Hx End Stage Renal Disease: No Hx Liver Disease: Yes (transaminitis) Hx Insulin Dependent Diabetes: No - Hematic Hx Anemia: Yes - Other Systems Hx Obesity: No - Additional Comments Anesthesia Medical History Comments: Hx HIV/AIDS noncompliant with meds. 2 MD consent obtained for procedure/anesthesia as there is no indentified NOK and patient is unable to consent for himself.
--- NOTE | 2018-08-15 11:04 | Anesthesia Day of Surgery ---
Anesthesia Day of Surgery - Day of Surgery Patient Examined: Yes Patient H&P Reviewed: Yes Patient is NPO: Yes Beta Blockers: No Cardiac Clearance: No Pulmonary Clearance: No
[2018-08-15] MEDS ORDERED: NACL 0.9% 1000 ML 1,000 ML ONE (11:12)
[2018-08-15] MEDS ORDERED: DILAUDID ONE ×2 (11:14→12:25)
[2018-08-15] MEDS ORDERED: DIPRIVAN 10 MG/ML IV ONE (11:14)
[2018-08-15] MEDS ORDERED: VERSED ONE (11:14)
[2018-08-15] MEDS ORDERED: NACL 0.9% IR ONE (11:20)
--- NOTE | 2018-08-15 11:29 | Progress Note ---
Assessment and Plan Patient undergone sacral wound cleaning. Patient awake. Patient is on room air. O2 saturation 97%. Trach tube capped.No acute respiratory distress. - Patient Problems (1) Acute respiratory failure with hypoxia and hypercapnia Current Visit: Yes Status: Acute Plan to address problem: Tracheostomy and on room air Albuterol / Astrovent airosol treatments q 6 hours. Patient is on Metranidazole and Bactrin Continue SQ haperin Continue Famotidine (2) Status post tracheostomy Current Visit: Yes Status: Acute Plan to address problem: Frequent respiratory suctioning. Trach-care (3) Bilateral pneumonia Current Visit: Yes Status: Acute Qualifiers: Pneumonia type: due to unspecified organism Lung location: unspecified part of lung Qualified Code(s): J18.9 - Pneumonia, unspecified organism Plan to address problem: Improving Patient is on Bactrim and Metranidazole. (4) Sepsis Current Visit: Yes Status: Acute Qualifiers: Sepsis type: sepsis due to unspecified organism Qualified Code(s): A41.9 - Sepsis, unspecified organism Plan to address problem: Improved Patient is on Bactrim and Metranidazole. (5) AIDS Current Visit: Yes Status: Acute Plan to address problem: Management as for infection disease. (6) Unstageable pressure ulcer of sacral region Current Visit: Yes Status: Acute Plan to address problem: Management as per surgery and wound cleaning. Patient is on Metronidazole and bactrim. Subjective Date of service: 08/15/18 Principal diagnosis: Acute hypoxemic resp failure; Bilateral pneumonia (PJP); HIV/AIDS Interval history: Patient undergone sacral wound cleaning. Patient awake. Patient is on room air. O2 saturation 97%. Trach tube capped. No acute respiratory distress. Objective Vital Signs - 12hr 08/15/18 08/15/18 05:31 07:41 Temperature 98.5 F Pulse Rate 94 H Respiratory 20 Rate Blood Pressure 96/57 O2 Sat by Pulse 98 97 Oximetry Constitutional: no acute distress, alert, other (young AAM; normocephalic and atraumatic) Eyes: non-icteric ENT: oropharynx moist, other (mallampati 2) Neck: supple, no lymphadenopathy, no JVD, other (+ midline tracheostomy tube in place) Effort: mildly labored Ascultation: Bilateral: diminished breath sounds, rales, rhonchi Percussion: Bilateral: not dull Cardiovascular: regular rate and rhythm, other (S1,S2, no murmurs, gallops or rubs) Gastrointestinal: normoactive bowel sounds, soft, non-tender, non-distended Integumentary: normal Extremities: no cyanosis, no edema, pulses normal, no ischemia or petechiae Neurologic: normal mental status, non-focal exam, pupils equal and round, CN II- XII normal, motor strength normal and Psychiatric: mood appropriate, affect normal CBC and BMP: 08/13/18 05:58 08/13/18 05:58 ABG, PT/INR, D-dimer: ABG POC ABG pH 7.507 (7.35-7.45) H 08/06/18 22:01 POC ABG pCO2 33.6 (35-45) L 08/06/18 22:01 POC ABG pO2 113 (80-105) H 08/06/18 22:01 POC ABG HCO3 26.6 (22-26 mml/L) 08/06/18 22:01 POC ABG Total CO2 28 (23-27mmol/L) 08/06/18 22:01 POC ABG O2 Sat 99 08/06/18 22:01 PT/INR, D-dimer 1298.70 ng/mlDDU (0-234) H 07/11/18 15:04 Abnormal lab findings: Abnormal Labs 07/11/18 07/11/18 07/11/18 14:06 14:06 15:04 WBC RBC 3.30 L Hgb 9.6 L Hct 28.7 L MCHC RDW Plt Count Lymph % (Auto) [place] % (Auto) Eos % (Auto) Lymph # Seg Neutrophils % Seg Neutrophils # Abs Lymphs (Manual) D-Dimer 1298.70 H POC ABG pH POC ABG pCO2 POC ABG pO2 Sodium 132 L Potassium Chloride Carbon Dioxide BUN Creatinine 0.6 L Glucose 103 H POC Glucose Calcium 7.3 L AST ALT Lactate Dehydrogenase C-Reactive Protein Total Protein Albumin 2.1 L Triglycerides Lymph Enumerat CD4/CD8 % CD3 Cells Absolute CD3 Count % CD4 Cells Absolute CD4 Count % CD8 Cells Absolute CD8 Count % CD19 Cells Absolute CD19 Count HIV-1 RNA PCR copies/ml HIV-1 RNA (PCR) log HIV-1 Genotyping Miscellaneous Test Crossmatch 07/11/18 07/11/1807/12/19 17:36 22:15 00:25 WBC RBC Hgb Hct MCHC RDW Plt Count Lymph % (Auto) [place] % (Auto) Eos % (Auto) Lymph # Seg Neutrophils % Seg Neutrophils # Abs Lymphs (Manual) D-Dimer POC ABG pH 7.289 L POC ABG pCO2 POC ABG pO2 66 L Sodium Potassium Chloride Carbon Dioxide BUN Creatinine Glucose POC Glucose Calcium AST ALT Lactate Dehydrogenase 591 H C-Reactive Protein Total Protein Albumin Triglycerides Lymph Enumerat CD4/CD8 % CD3 Cells Absolute CD3 Count % CD4 Cells Absolute CD4 Count % CD8 Cells Absolute CD8 Count % CD19 Cells Absolute CD19 Count HIV-1 RNA PCR copies/ml HIV-1 RNA (PCR) log HIV-1 Genotyping Miscellaneous Test see below H Crossmatch 07/12/18 07/12/18 07/12/18 00:41 05:37 19:29 WBC RBC Hgb Hct MCHC RDW Plt Count Lymph % (Auto) [place] % (Auto) Eos % (Auto) Lymph # Seg Neutrophils % Seg Neutrophils # Abs Lymphs (Manual) D-Dimer POC ABG pH 7.302 L 7.275 L POC ABG pCO2 47.1 H POC ABG pO2 Sodium Potassium Chloride Carbon Dioxide BUN Creatinine Glucose POC Glucose Calcium AST ALT Lactate Dehydrogenase 731 H C-Reactive Protein Total Protein Albumin Triglycerides Lymph Enumerat CD4/CD8 % CD3 Cells Absolute CD3 Count % CD4 Cells Absolute CD4 Count % CD8 Cells Absolute CD8 Count % CD19 Cells Absolute CD19 Count HIV-1 RNA PCR copies/ml HIV-1 RNA (PCR) log HIV-1 Genotyping Miscellaneous Test Crossmatch 07/12/18 07/12/18 07/13/18 19:29 19:29 04:03 WBC RBC Hgb Hct MCHC RDW Plt Count Lymph % (Auto) [place] % (Auto) Eos % (Auto) Lymph # Seg Neutrophils % Seg Neutrophils # Abs Lymphs (Manual) 220 L D-Dimer POC ABG pH 7.254 L POC ABG pCO2 49.2 H POC ABG pO2 Sodium Potassium Chloride Carbon Dioxide BUN Creatinine Glucose POC Glucose Calcium AST ALT Lactate Dehydrogenase C-Reactive Protein Total Protein Albumin Triglycerides Lymph Enumerat CD4/CD8 0.04 L % CD3 Cells 88 H Absolute CD3 Count 194 L % CD4 Cells 3 L Absolute CD4 Count 7 L % CD8 Cells 75 H Absolute CD8 Count 177 L % CD19 Cells 4 L Absolute CD19 Count 9 L HIV-1 RNA PCR copies/ml 383299 H HIV-1 RNA (PCR) log 5.72 H HIV-1 Genotyping Miscellaneous Test Crossmatch 07/13/18 07/13/18 07/13/18 05:46 12:23 18:31 WBC RBC Hgb Hct MCHC RDW Plt Count Lymph % (Auto) [place] % (Auto) Eos % (Auto) Lymph # Seg Neutrophils % Seg Neutrophils # Abs Lymphs (Manual) D-Dimer POC ABG pH POC ABG pCO2 POC ABG pO2 Sodium Potassium Chloride Carbon Dioxide BUN Creatinine Glucose POC Glucose 68 L 106 H 112 H Calcium AST ALT Lactate Dehydrogenase C-Reactive Protein Total Protein Albumin Triglycerides Lymph Enumerat CD4/CD8 % CD3 Cells Absolute CD3 Count % CD4 Cells Absolute CD4 Count % CD8 Cells Absolute CD8 Count % CD19 Cells Absolute CD19 Count HIV-1 RNA PCR copies/ml HIV-1 RNA (PCR) log HIV-1 Genotyping Miscellaneous Test Crossmatch 07/14/18 07/14/18 07/14/18 04:19 05:36 05:36 WBC RBC 2.99 L Hgb 8.8 L Hct 25.7 L MCHC RDW 15.5 H Plt Count Lymph % (Auto) [place] % (Auto) Eos % (Auto) Lymph # Seg Neutrophils % Seg Neutrophils # Abs Lymphs (Manual) D-Dimer POC ABG pH 7.337 L POC ABG pCO2 POC ABG pO2 Sodium 135 L Potassium Chloride Carbon Dioxide 21 L BUN Creatinine 0.7 L Glucose 123 H POC Glucose Calcium 8.2 L AST ALT Lactate Dehydrogenase C-Reactive Protein Total Protein Albumin Triglycerides Lymph Enumerat CD4/CD8 % CD3 Cells Absolute CD3 Count % CD4 Cells Absolute CD4 Count % CD8 Cells Absolute CD8 Count % CD19 Cells Absolute CD19 Count HIV-1 RNA PCR copies/ml HIV-1 RNA (PCR) log HIV-1 Genotyping Miscellaneous Test Crossmatch 07/14/18 07/14/18 07/14/18 12:14 14:33 17:18 WBC RBC Hgb Hct MCHC RDW Plt Count Lymph % (Auto) [place] % (Auto) Eos % (Auto) Lymph # Seg Neutrophils % Seg Neutrophils # Abs Lymphs (Manual) D-Dimer POC ABG pH 7.325 L POC ABG pCO2 POC ABG pO2 75 L Sodium Potassium Chloride Carbon Dioxide BUN Creatinine Glucose POC Glucose 174 H 114 H Calcium AST ALT Lactate Dehydrogenase C-Reactive Protein Total Protein Albumin Triglycerides Lymph Enumerat CD4/CD8 % CD3 Cells Absolute CD3 Count % CD4 Cells Absolute CD4 Count % CD8 Cells Absolute CD8 Count % CD19 Cells Absolute CD19 Count HIV-1 RNA PCR copies/ml HIV-1 RNA (PCR) log HIV-1 Genotyping Miscellaneous Test Crossmatch 07/15/18 07/15/18 07/15/18 00:17 12:29 12:29 WBC RBC 2.64 L Hgb 7.5 L Hct 22.9 L MCHC RDW 15.4 H Plt Count Lymph % (Auto) 7.0 L [place] % (Auto) Eos % (Auto) Lymph # 0.4 L Seg Neutrophils % 89.6 H Seg Neutrophils # Abs Lymphs (Manual) D-Dimer POC ABG pH POC ABG pCO2 POC ABG pO2 Sodium Potassium Chloride Carbon Dioxide BUN Creatinine 0.6 L Glucose 124 H POC Glucose 113 H Calcium 7.3 L AST ALT Lactate Dehydrogenase C-Reactive Protein Total Protein Albumin Triglycerides Lymph Enumerat CD4/CD8 % CD3 Cells Absolute CD3 Count % CD4 Cells Absolute CD4 Count % CD8 Cells Absolute CD8 Count % CD19 Cells Absolute CD19 Count HIV-1 RNA PCR copies/ml HIV-1 RNA (PCR) log HIV-1 Genotyping Miscellaneous Test Crossmatch 07/15/18 07/16/18 07/16/18 14:09 04:46 07:21 WBC RBC Hgb Hct MCHC RDW Plt Count Lymph % (Auto) [place] % (Auto) Eos % (Auto) Lymph # Seg Neutrophils % Seg Neutrophils # Abs Lymphs (Manual) D-Dimer POC ABG pH 7.282 L POC ABG pCO2 52.6 H POC ABG pO2 63 L Sodium Potassium Chloride Carbon Dioxide BUN Creatinine Glucose POC Glucose Calcium AST ALT Lactate Dehydrogenase C-Reactive Protein 2.70 H Total Protein Albumin Triglycerides Lymph Enumerat CD4/CD8 % CD3 Cells Absolute CD3 Count % CD4 Cells Absolute CD4 Count % CD8 Cells Absolute CD8 Count % CD19 Cells Absolute CD19 Count HIV-1 RNA PCR copies/ml HIV-1 RNA (PCR) log HIV-1 Genotyping Miscellaneous Test Flexitest 1 H Crossmatch 07/16/18 07/16/18 07/16/18 07:21 07:21 16:16 WBC RBC 2.48 L Hgb 7.2 L Hct 21.5 L MCHC RDW 15.7 H Plt Count Lymph % (Auto) [place] % (Auto) Eos % (Auto) Lymph # Seg Neutrophils % Seg Neutrophils # Abs Lymphs (Manual) D-Dimer POC ABG pH 7.251 L POC ABG pCO2 62.2 H POC ABG pO2 Sodium 136 L Potassium Chloride Carbon Dioxide BUN Creatinine 0.6 L Glucose 118 H POC Glucose Calcium 7.5 L AST ALT Lactate Dehydrogenase C-Reactive Protein Total Protein Albumin Triglycerides Lymph Enumerat CD4/CD8 % CD3 Cells Absolute CD3 Count % CD4 Cells Absolute CD4 Count % CD8 Cells Absolute CD8 Count % CD19 Cells Absolute CD19 Count HIV-1 RNA PCR copies/ml HIV-1 RNA (PCR) log HIV-1 Genotyping Miscellaneous Test Crossmatch 07/17/18 07/18/18 07/18/18 04:01 01:10 03:10 WBC RBC 2.20 L Hgb 6.5 L Hct 19.2 L* MCHC RDW 16.0 H Plt Count Lymph % (Auto) 7.2 L [place] % (Auto) Eos % (Auto) Lymph # 0.5 L Seg Neutrophils % 89.9 H Seg Neutrophils # Abs Lymphs (Manual) D-Dimer POC ABG pH 7.245 L POC ABG pCO2 63.8 H POC ABG pO2 75 L Sodium Potassium Chloride Carbon Dioxide BUN Creatinine Glucose POC Glucose Calcium AST ALT Lactate Dehydrogenase C-Reactive Protein Total Protein Albumin Triglycerides Lymph Enumerat CD4/CD8 % CD3 Cells Absolute CD3 Count % CD4 Cells Absolute CD4 Count % CD8 Cells Absolute CD8 Count % CD19 Cells Absolute CD19 Count HIV-1 RNA PCR copies/ml HIV-1 RNA (PCR) log HIV-1 Genotyping Miscellaneous Test Crossmatch See Detail 07/18/18 07/18/18 07/18/18 04:54 05:02 12:59 WBC RBC Hgb Hct MCHC RDW Plt Count Lymph % (Auto) [place] % (Auto) Eos % (Auto) Lymph # Seg Neutrophils % Seg Neutrophils # Abs Lymphs (Manual) D-Dimer POC ABG pH 7.615 H POC ABG pCO2 32.6 L 48.8 H POC ABG pO2 79 L 118 H Sodium Potassium Chloride Carbon Dioxide BUN Creatinine Glucose POC Glucose 164 H Calcium AST ALT Lactate Dehydrogenase C-Reactive Protein Total Protein Albumin Triglycerides Lymph Enumerat CD4/CD8 % CD3 Cells Absolute CD3 Count % CD4 Cells Absolute CD4 Count % CD8 Cells Absolute CD8 Count % CD19 Cells Absolute CD19 Count HIV-1 RNA PCR copies/ml HIV-1 RNA (PCR) log HIV-1 Genotyping Miscellaneous Test Crossmatch 07/18/18 07/18/18 07/19/18 18:25 20:39 03:53 WBC RBC Hgb Hct MCHC RDW Plt Count Lymph % (Auto) [place] % (Auto) Eos % (Auto) Lymph # Seg Neutrophils % Seg Neutrophils # Abs Lymphs (Manual) D-Dimer POC ABG pH 7.339 L POC ABG pCO2 59.9 H 65.0 H POC ABG pO2 69 L Sodium Potassium Chloride Carbon Dioxide BUN Creatinine Glucose POC Glucose 155 H Calcium AST ALT Lactate Dehydrogenase C-Reactive Protein Total Protein Albumin Triglycerides Lymph Enumerat CD4/CD8 % CD3 Cells Absolute CD3 Count % CD4 Cells Absolute CD4 Count % CD8 Cells Absolute CD8 Count % CD19 Cells Absolute CD19 Count HIV-1 RNA PCR copies/ml HIV-1 RNA (PCR) log HIV-1 Genotyping Miscellaneous Test Crossmatch 07/19/18 07/19/18 07/19/18 08:10 08:10 10:52 WBC RBC 2.51 L Hgb 7.4 L Hct 22.0 L MCHC RDW 15.5 H Plt Count Lymph % (Auto) [place] % (Auto) Eos % (Auto) Lymph # Seg Neutrophils % Seg Neutrophils # Abs Lymphs (Manual) D-Dimer POC ABG pH POC ABG pCO2 POC ABG pO2 Sodium 130 L Potassium Chloride 89.0 L Carbon Dioxide 33 H BUN Creatinine 0.4 L Glucose 150 H POC Glucose 173 H Calcium 7.5 L AST ALT Lactate Dehydrogenase C-Reactive Protein Total Protein Albumin Triglycerides Lymph Enumerat CD4/CD8 % CD3 Cells Absolute CD3 Count % CD4 Cells Absolute CD4 Count % CD8 Cells Absolute CD8 Count % CD19 Cells Absolute CD19 Count HIV-1 RNA PCR copies/ml HIV-1 RNA (PCR) log HIV-1 Genotyping Miscellaneous Test Crossmatch 07/19/18 07/19/18 07/20/18 17:06 23:47 04:37 WBC RBC Hgb Hct MCHC RDW Plt Count Lymph % (Auto) [place] % (Auto) Eos % (Auto) Lymph # Seg Neutrophils % Seg Neutrophils # Abs Lymphs (Manual) D-Dimer POC ABG pH POC ABG pCO2 58.5 H POC ABG pO2 67 L Sodium Potassium Chloride Carbon Dioxide BUN Creatinine Glucose POC Glucose 117 H 114 H Calcium AST ALT Lactate Dehydrogenase C-Reactive Protein Total Protein Albumin Triglycerides Lymph Enumerat CD4/CD8 % CD3 Cells Absolute CD3 Count % CD4 Cells Absolute CD4 Count % CD8 Cells Absolute CD8 Count % CD19 Cells Absolute CD19 Count HIV-1 RNA PCR copies/ml HIV-1 RNA (PCR) log HIV-1 Genotyping Miscellaneous Test Crossmatch 07/20/18 07/20/18 07/21/18 06:20 06:20 04:18 WBC RBC 2.69 L Hgb 7.8 L Hct 23.6 L MCHC RDW 15.5 H Plt Count Lymph % (Auto) [place] % (Auto) Eos % (Auto) Lymph # Seg Neutrophils % Seg Neutrophils # Abs Lymphs (Manual) D-Dimer POC ABG pH 7.456 H POC ABG pCO2 60.4 H POC ABG pO2 64 L Sodium 134 L Potassium Chloride 89.2 L Carbon Dioxide 38 H BUN Creatinine 0.7 L D Glucose 120 H POC Glucose Calcium 7.6 L AST ALT Lactate Dehydrogenase C-Reactive Protein Total Protein Albumin Triglycerides Lymph Enumerat CD4/CD8 % CD3 Cells Absolute CD3 Count % CD4 Cells Absolute CD4 Count % CD8 Cells Absolute CD8 Count % CD19 Cells Absolute CD19 Count HIV-1 RNA PCR copies/ml HIV-1 RNA (PCR) log HIV-1 Genotyping Miscellaneous Test Crossmatch 07/21/18 07/21/18 07/22/18 04:35 04:35 04:16 WBC RBC 2.62 L 2.37 L Hgb 7.7 L 7.0 L Hct 23.1 L 21.1 L MCHC RDW 15.4 H Plt Count Lymph % (Auto) [place] % (Auto) Eos % (Auto) Lymph # Seg Neutrophils % Seg Neutrophils # Abs Lymphs (Manual) D-Dimer POC ABG pH POC ABG pCO2 POC ABG pO2 Sodium 129 L Potassium 5.3 H Chloride 85.3 L Carbon Dioxide 38 H BUN Creatinine 0.4 L Glucose 108 H POC Glucose Calcium 8.0 L AST ALT Lactate Dehydrogenase C-Reactive Protein Total Protein Albumin Triglycerides Lymph Enumerat CD4/CD8 % CD3 Cells Absolute CD3 Count % CD4 Cells Absolute CD4 Count % CD8 Cells Absolute CD8 Count % CD19 Cells Absolute CD19 Count HIV-1 RNA PCR copies/ml HIV-1 RNA (PCR) log HIV-1 Genotyping Miscellaneous Test Crossmatch 07/22/18 07/23/18 07/23/18 04:16 03:25 12:45 WBC RBC Hgb Hct MCHC RDW Plt Count Lymph % (Auto) [place] % (Auto) Eos % (Auto) Lymph # Seg Neutrophils % Seg Neutrophils # Abs Lymphs (Manual) D-Dimer POC ABG pH POC ABG pCO2 69.4 H POC ABG pO2 Sodium 132 L 125 L D Potassium 5.4 H 5.3 H Chloride 87.4 L 80.3 L Carbon Dioxide 38 H 38 H BUN Creatinine 0.4 L 0.3 L Glucose 117 H 124 H POC Glucose Calcium 7.5 L 7.4 L AST ALT Lactate Dehydrogenase C-Reactive Protein Total Protein Albumin Triglycerides Lymph Enumerat CD4/CD8 % CD3 Cells Absolute CD3 Count % CD4 Cells Absolute CD4 Count % CD8 Cells Absolute CD8 Count % CD19 Cells Absolute CD19 Count HIV-1 RNA PCR copies/ml HIV-1 RNA (PCR) log HIV-1 Genotyping Miscellaneous Test Crossmatch 07/23/18 07/24/18 07/24/18 23:52 04:30 04:30 WBC RBC 2.12 L Hgb 6.3 L Hct 18.9 L* MCHC RDW Plt Count Lymph % (Auto) [place] % (Auto) Eos % (Auto) Lymph # Seg Neutrophils % Seg Neutrophils # Abs Lymphs (Manual) D-Dimer POC ABG pH POC ABG pCO2 POC ABG pO2 Sodium 127 L Potassium 5.2 H Chloride 83.9 L Carbon Dioxide 39 H BUN Creatinine 0.3 L Glucose POC Glucose 118 H Calcium 7.5 L AST ALT Lactate Dehydrogenase C-Reactive Protein Total Protein Albumin Triglycerides Lymph Enumerat CD4/CD8 % CD3 Cells Absolute CD3 Count % CD4 Cells Absolute CD4 Count % CD8 Cells Absolute CD8 Count % CD19 Cells Absolute CD19 Count HIV-1 RNA PCR copies/ml HIV-1 RNA (PCR) log HIV-1 Genotyping Miscellaneous Test Crossmatch 07/24/18 07/24/18 07/24/18 05:11 05:30 07:50 WBC RBC Hgb Hct MCHC RDW Plt Count Lymph % (Auto) [place] % (Auto) Eos % (Auto) Lymph # Seg Neutrophils % Seg Neutrophils # Abs Lymphs (Manual) D-Dimer POC ABG pH 7.462 H POC ABG pCO2 58.7 H POC ABG pO2 79 L Sodium Potassium Chloride Carbon Dioxide BUN Creatinine Glucose POC Glucose 145 H Calcium AST ALT Lactate Dehydrogenase C-Reactive Protein Total Protein Albumin Triglycerides Lymph Enumerat CD4/CD8 % CD3 Cells Absolute CD3 Count % CD4 Cells Absolute CD4 Count % CD8 Cells Absolute CD8 Count % CD19 Cells Absolute CD19 Count HIV-1 RNA PCR copies/ml HIV-1 RNA (PCR) log HIV-1 Genotyping Miscellaneous Test Crossmatch See Detail 07/25/18 07/25/18 07/25/18 09:30 09:30 17:05 WBC RBC 2.99 L Hgb 9.1 L Hct 27.0 L D MCHC RDW Plt Count Lymph % (Auto) [place] % (Auto) Eos % (Auto) Lymph # Seg Neutrophils % Seg Neutrophils # Abs Lymphs (Manual) D-Dimer POC ABG pH POC ABG pCO2 POC ABG pO2 Sodium 131 L Potassium 5.1 H Chloride 84.4 L Carbon Dioxide 39 H BUN Creatinine 0.3 L Glucose 133 H POC Glucose Calcium 8.0 L AST ALT Lactate Dehydrogenase C-Reactive Protein Total Protein Albumin Triglycerides Lymph Enumerat CD4/CD8 % CD3 Cells Absolute CD3 Count % CD4 Cells Absolute CD4 Count % CD8 Cells Absolute CD8 Count % CD19 Cells Absolute CD19 Count HIV-1 RNA PCR copies/ml HIV-1 RNA (PCR) log HIV-1 Genotyping Detected H Miscellaneous Test Crossmatch 07/26/18 07/26/18 07/26/18 00:18 04:07 05:50 WBC RBC 3.01 L Hgb 9.4 L Hct 27.2 L MCHC 35 H RDW Plt Count Lymph % (Auto) 10.4 L [place] % (Auto) Eos % (Auto) Lymph # 0.9 L Seg Neutrophils % 84.2 H Seg Neutrophils # Abs Lymphs (Manual) D-Dimer POC ABG pH 7.456 H POC ABG pCO2 61.4 H POC ABG pO2 68 L Sodium 135 L Potassium 5.5 H Chloride 88.4 L Carbon Dioxide 38 H BUN Creatinine 0.3 L Glucose POC Glucose Calcium AST ALT Lactate Dehydrogenase C-Reactive Protein Total Protein Albumin Triglycerides Lymph Enumerat CD4/CD8 % CD3 Cells Absolute CD3 Count % CD4 Cells Absolute CD4 Count % CD8 Cells Absolute CD8 Count % CD19 Cells Absolute CD19 Count HIV-1 RNA PCR copies/ml HIV-1 RNA (PCR) log HIV-1 Genotyping Miscellaneous Test Crossmatch 07/26/18 07/26/18 07/27/18 05:50 14:56 14:26 WBC RBC Hgb Hct MCHC RDW Plt Count Lymph % (Auto) [place] % (Auto) Eos % (Auto) Lymph # Seg Neutrophils % Seg Neutrophils # Abs Lymphs (Manual) D-Dimer POC ABG pH 7.472 H POC ABG pCO2 66.0 H 57.4 H POC ABG pO2 56 L 59 L Sodium 131 L Potassium 5.1 H Chloride 84.5 L Carbon Dioxide 39 H BUN Creatinine 0.3 L Glucose POC Glucose Calcium AST 78 H ALT 71 H Lactate Dehydrogenase C-Reactive Protein Total Protein 6.0 L Albumin 2.5 L Triglycerides Lymph Enumerat CD4/CD8 % CD3 Cells Absolute CD3 Count % CD4 Cells Absolute CD4 Count % CD8 Cells Absolute CD8 Count % CD19 Cells Absolute CD19 Count HIV-1 RNA PCR copies/ml HIV-1 RNA (PCR) log HIV-1 Genotyping Miscellaneous Test Crossmatch 07/28/18 07/28/18 07/28/18 05:20 05:20 05:20 WBC RBC 3.21 L Hgb 10.0 L Hct 29.9 L MCHC RDW 15.4 H Plt Count 451 H Lymph % (Auto) [place] % (Auto) Eos % (Auto) Lymph # Seg Neutrophils % 81.6 H Seg Neutrophils # Abs Lymphs (Manual) D-Dimer POC ABG pH POC ABG pCO2 POC ABG pO2 Sodium 136 L Potassium Chloride 89.9 L Carbon Dioxide 38 H BUN Creatinine 0.4 L Glucose POC Glucose Calcium 8.1 L AST 104 H ALT 113 H Lactate Dehydrogenase C-Reactive Protein Total Protein 6.2 L Albumin 2.5 L Triglycerides 209 H Lymph Enumerat CD4/CD8 % CD3 Cells Absolute CD3 Count % CD4 Cells Absolute CD4 Count % CD8 Cells Absolute CD8 Count % CD19 Cells Absolute CD19 Count HIV-1 RNA PCR copies/ml HIV-1 RNA (PCR) log HIV-1 Genotyping Miscellaneous Test Crossmatch 07/28/18 07/28/18 07/29/18 06:08 17:22 04:28 WBC RBC Hgb Hct MCHC RDW Plt Count Lymph % (Auto) [place] % (Auto) Eos % (Auto) Lymph # Seg Neutrophils % Seg Neutrophils # Abs Lymphs (Manual) D-Dimer POC ABG pH 7.328 L POC ABG pCO2 65.7 H 55.1 H POC ABG pO2 70 L 113 H 76 L Sodium Potassium Chloride Carbon Dioxide BUN Creatinine Glucose POC Glucose Calcium AST ALT Lactate Dehydrogenase C-Reactive Protein Total Protein Albumin Triglycerides Lymph Enumerat CD4/CD8 % CD3 Cells Absolute CD3 Count % CD4 Cells Absolute CD4 Count % CD8 Cells Absolute CD8 Count % CD19 Cells Absolute CD19 Count HIV-1 RNA PCR copies/ml HIV-1 RNA (PCR) log HIV-1 Genotyping Miscellaneous Test Crossmatch 08/02/18 08/02/18 08/03/18 06:30 06:30 06:30 WBC RBC 2.96 L 2.78 L Hgb 9.4 L 9.0 L Hct 27.6 L 26.3 L MCHC RDW 18.4 H 19.6 H Plt Count Lymph % (Auto) 11.1 L [place] % (Auto) Eos % (Auto) Lymph # 0.6 L 0.7 L Seg Neutrophils % 84.0 H 79.0 H Seg Neutrophils # Abs Lymphs (Manual) D-Dimer POC ABG pH POC ABG pCO2 POC ABG pO2 Sodium 133 L Potassium Chloride 92.7 L Carbon Dioxide BUN 22 H Creatinine 0.5 L Glucose POC Glucose Calcium 8.1 L AST ALT Lactate Dehydrogenase C-Reactive Protein Total Protein Albumin Triglycerides Lymph Enumerat CD4/CD8 % CD3 Cells Absolute CD3 Count % CD4 Cells Absolute CD4 Count % CD8 Cells Absolute CD8 Count % CD19 Cells Absolute CD19 Count HIV-1 RNA PCR copies/ml HIV-1 RNA (PCR) log HIV-1 Genotyping Miscellaneous Test Crossmatch 08/03/18 08/04/18 08/05/18 06:30 17:13 08:03 WBC RBC 2.77 L Hgb 8.8 L Hct 25.8 L MCHC RDW 20.4 H Plt Count Lymph % (Auto) [place] % (Auto) Eos % (Auto) Lymph # 0.9 L Seg Neutrophils % 76.6 H Seg Neutrophils # Abs Lymphs (Manual) D-Dimer POC ABG pH POC ABG pCO2 POC ABG pO2 Sodium 131 L Potassium Chloride 92.0 L Carbon Dioxide BUN Creatinine 0.3 L Glucose POC Glucose 120 H Calcium 8.0 L AST ALT Lactate Dehydrogenase C-Reactive Protein Total Protein 6.0 L Albumin 2.4 L Triglycerides Lymph Enumerat CD4/CD8 % CD3 Cells Absolute CD3 Count % CD4 Cells Absolute CD4 Count % CD8 Cells Absolute CD8 Count % CD19 Cells Absolute CD19 Count HIV-1 RNA PCR copies/ml HIV-1 RNA (PCR) log HIV-1 Genotyping Miscellaneous Test Crossmatch 08/05/18 08/06/18 08/06/18 08:03 07:38 22:01 WBC RBC Hgb Hct MCHC RDW Plt Count Lymph % (Auto) [place] % (Auto) Eos % (Auto) Lymph # Seg Neutrophils % Seg Neutrophils # Abs Lymphs (Manual) D-Dimer POC ABG pH 7.507 H POC ABG pCO2 33.6 L POC ABG pO2 113 H Sodium 132 L 131 L Potassium 3.5 L Chloride 93.0 L 92.4 L Carbon Dioxide BUN Creatinine 0.3 L 0.4 L Glucose POC Glucose Calcium 8.0 L 8.1 L AST ALT Lactate Dehydrogenase C-Reactive Protein Total Protein Albumin Triglycerides Lymph Enumerat CD4/CD8 % CD3 Cells Absolute CD3 Count % CD4 Cells Absolute CD4 Count % CD8 Cells Absolute CD8 Count % CD19 Cells Absolute CD19 Count HIV-1 RNA PCR copies/ml HIV-1 RNA (PCR) log HIV-1 Genotyping Miscellaneous Test Crossmatch 08/07/18 08/07/18 08/08/18 07:57 07:57 04:38 WBC 4.1 L RBC 3.00 L Hgb 9.4 L Hct 27.9 L MCHC RDW 19.2 H Plt Count Lymph % (Auto) [place] % (Auto) Eos % (Auto) Lymph # Seg Neutrophils % Seg Neutrophils # Abs Lymphs (Manual) D-Dimer POC ABG pH POC ABG pCO2 POC ABG pO2 Sodium 133 L Potassium 3.2 L Chloride 95.9 L Carbon Dioxide BUN Creatinine 0.4 L 0.4 L Glucose 104 H POC Glucose Calcium AST ALT Lactate Dehydrogenase C-Reactive Protein Total Protein Albumin 2.6 L Triglycerides Lymph Enumerat CD4/CD8 % CD3 Cells Absolute CD3 Count % CD4 Cells Absolute CD4 Count % CD8 Cells Absolute CD8 Count % CD19 Cells Absolute CD19 Count HIV-1 RNA PCR copies/ml HIV-1 RNA (PCR) log HIV-1 Genotyping Miscellaneous Test Crossmatch 08/11/18 08/11/18 08/12/18 06:55 06:55 00:00 WBC 3.3 L RBC 2.91 L Hgb 9.2 L Hct 26.9 L MCHC RDW 18.9 H Plt Count 503 H Lymph % (Auto) [place] % (Auto) Eos % (Auto) 7.8 H Lymph # 0.9 L Seg Neutrophils % Seg Neutrophils # Abs Lymphs (Manual) D-Dimer POC ABG pH POC ABG pCO2 POC ABG pO2 Sodium Potassium Chloride 108.8 H Carbon Dioxide BUN Creatinine 0.4 L Glucose POC Glucose 106 H Calcium 8.1 L AST ALT Lactate Dehydrogenase C-Reactive Protein Total Protein Albumin Triglycerides Lymph Enumerat CD4/CD8 % CD3 Cells Absolute CD3 Count % CD4 Cells Absolute CD4 Count % CD8 Cells Absolute CD8 Count % CD19 Cells Absolute CD19 Count HIV-1 RNA PCR copies/ml HIV-1 RNA (PCR) log HIV-1 Genotyping Miscellaneous Test Crossmatch 08/12/18 08/12/18 08/12/18 04:38 04:38 18:13 WBC 3.0 L RBC 3.04 L Hgb 9.5 L Hct 28.4 L MCHC RDW 19.0 H Plt Count 448 H Lymph % (Auto) [place] % (Auto) Eos % (Auto) 7.1 H Lymph # 0.9 L Seg Neutrophils % Seg Neutrophils # 1.6 L Abs Lymphs (Manual) D-Dimer POC ABG pH POC ABG pCO2 POC ABG pO2 Sodium Potassium 3.4 L Chloride 110.1 H Carbon Dioxide 18 L BUN Creatinine 0.4 L Glucose POC Glucose 108 H Calcium 8.1 L AST 41 H ALT Lactate Dehydrogenase C-Reactive Protein Total Protein 5.8 L Albumin 2.2 L Triglycerides Lymph Enumerat CD4/CD8 % CD3 Cells Absolute CD3 Count % CD4 Cells Absolute CD4 Count % CD8 Cells Absolute CD8 Count % CD19 Cells Absolute CD19 Count HIV-1 RNA PCR copies/ml HIV-1 RNA (PCR) log HIV-1 Genotyping Miscellaneous Test Crossmatch 08/13/18 08/13/18 05:58 05:58 WBC 2.9 L RBC 2.71 L Hgb 8.6 L Hct 25.1 L MCHC RDW 19.1 H Plt Count Lymph % (Auto) [place] % (Auto) 9.8 H Eos % (Auto) 4.8 H Lymph # 0.9 L Seg Neutrophils % Seg Neutrophils # 1.6 L Abs Lymphs (Manual) D-Dimer POC ABG pH POC ABG pCO2 POC ABG pO2 Sodium Potassium Chloride 111.1 H Carbon Dioxide 19 L BUN Creatinine 0.4 L Glucose POC Glucose Calcium 8.0 L AST ALT Lactate Dehydrogenase C-Reactive Protein Total Protein 5.3 L Albumin 2.4 L Triglycerides Lymph Enumerat CD4/CD8 % CD3 Cells Absolute CD3 Count % CD4 Cells Absolute CD4 Count % CD8 Cells Absolute CD8 Count % CD19 Cells Absolute CD19 Count HIV-1 RNA PCR copies/ml HIV-1 RNA (PCR) log HIV-1 Genotyping Miscellaneous Test Crossmatch Allied health notes reviewed: nursing
[2018-08-15] MEDS ORDERED: ZOFRAN ONE (11:46)
--- NOTE | 2018-08-15 11:56 | Post Operative Note ---
Date of procedure: 08/15/18 Pre-op diagnosis: unstageable sacral wound Post-op diagnosis: same Findings: Stage 3 sacral wound measurin.5cm x 3.5 x 0.25 cm wound Procedure: excisional debridement of sacral wound Anesthesia: MAC, local Surgeon: CALEB MARCH Estimated blood loss: minimal Pathology: none Condition: stable Disposition: PACU
[2018-08-15] MEDS ORDERED: ZOFRAN IV PRN (12:24)
[2018-08-15] MEDS: DILAUDID IV PRN ×2 (12:25→12:35)
--- NOTE | 2018-08-15 15:21 | Progress Note ---
Assessment and Plan Assessment and plan: Patient is a 37 yo man with a history of HIV and tobacco dependency who presents from [facility] to [facility] ED with sob and cough. Pt admitted to [facility] and initiated on Pneumonia protocol. In the ED, temp 99.8, HR 104, R 29, O2 sat 77%, BP 94/50. WBC 6.1, Hg 9.6, Plat 398. Creat 0.6. Blood culture 07/11/2018 no growth today. Sputum culture 07/11/2018 no growth today. Repeat sputum culture on 07/15/18 grew MRSA and C.albicans. Chest CT showed bilateral patchy and somewhat confluent alveolar infiltrates and interstitial infiltrates. No effusions. Mild cardiomegaly. Patient required emergent intubation following admission to the [facility]. He underwent trach and PEG on 08/01/18. * CT head: No CT evidence of acute intracranial abnormality. Pansinus disease * CTA CHEST: IMPRESSION: No pulmonary embolus. Bilateral patchy and somewhat confluent alveolar infiltrates and interstitial infiltrates. Noeffusions. Mild cardiomegaly. Runnings likely reflect a viral pneumonia or inhalational process * CXR IMPRESSION: Heart size is normal.There are bilateral lower lobe infiltrates. These are slightly worse than the prior study.. There is no pleural effusion or pneumothorax. Endotracheal tube is in the mid trachea. NG tube is in the stomach. There is a right-sided PICC line. The tip is in the superior vena cava.. 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 Severe Protein Malnutrition: [employer] to follow AIDS with history of noncompliance: ID following AOCD: monitor cbc closely Elevated d/DIMER- NO PE noted on CTA chest Disposition: continue inpatient care, [facility] dismissed charges, now needs placement, hopefully he can live with his sister. Date of procedure: 08/15/18 Pre-op diagnosis: unstageable sacral wound Post-op diagnosis: same Findings: Stage 3 sacral wound measurin.5cm x 3.5 x 0.25 cm wound Procedure: excisional debridement of sacral wound Anesthesia: MAC, local Surgeon: CALEB MARCH Estimated blood loss: minimal Pathology: none Condition: stable Disposition: PACU History Interval history: Patient was seen and examined. Follow-up on current diagnosis of respiratory failure, now with Trach, off O2. No overnight events reported to me. Imaging, nursing note, chart, labs and old chart reviewed. No new c/o per patient Hospitalist Physical - Physical exam Narrative exam: Gen: thin, critically ill, trach in place HEENT: NCAT, EOMI, PERRL, OP ETT and NGT in place Neck: supple, no JVD CVS/Heart: Regular tachycardia, normal S1S2, pulses present bilaterally Chest/Lungs: tachypenic, diminished bs bilateral, Symmetrical chest expansion, good air entry bilaterally GI/Abdomen: soft, PEG in place, good bowel sounds, no guarding or rebound /Bladder: no suprapubic tenderness, Extermity/Skin: poor skin tone MSK: moving all ext Neuro: No new focal deficits Psych: calm - Constitutional Vitals: Temp Pulse Resp BP Pulse Ox 97.6 F 97 H 20 120/79 96 08/15/18 13:13 08/15/18 13:13 08/15/18 13:13 08/15/18 13:13 08/15/18 13:13 General appearance: Present: no acute distress, cachectic, disheveled, other (tracheostomy) Results - Labs CBC & Chem 7: 08/13/18 05:58 08/13/18 05:58 Labs: Laboratory Last Values WBC 2.9 K/mm3 (4.5-11.0) L 08/13/18 05:58 RBC 2.71 M/mm3 (3.65-5.03) L 08/13/18 05:58 Hgb 8.6 gm/dl (11.8-15.2) L 08/13/18 05:58 Hct 25.1 % (35.5-45.6) L 08/13/18 05:58 MCV 93 fl (84-94) 08/13/18 05:58 MCH 32 pg (28-32) 08/13/18 05:58 MCHC 34 % (32-34) 08/13/18 05:58 RDW 19.1 % (13.2-15.2) H 08/13/18 05:58 Plt Count 428 K/mm3 (140-440) 08/13/18 05:58 Lymph % (Auto) 31.0 % (13.4-35.0) 08/13/18 05:58 [place] % (Auto) 9.8 % (0.0-7.3) H 08/13/18 05:58 Eos % (Auto) 4.8 % (0.0-4.3) H 08/13/18 05:58 Baso % (Auto) 0.9 % (0.0-1.8) 08/13/18 05:58 Lymph # 0.9 K/mm3 (1.2-5.4) L 08/13/18 05:58 [place] # 0.3 K/mm3 (0.0-0.8) 08/13/18 05:58 Eos # 0.1 K/mm3 (0.0-0.4) 08/13/18 05:58 Baso # 0.0 K/mm3 (0.0-0.1) 08/13/18 05:58 Add Manual Diff Complete 07/25/18 09:30 Total Counted 100 07/25/18 09:30 Seg Neutrophils % 53.5 % (40.0-70.0) 08/13/18 05:58 Seg Neuts % (Manual) 63.0 % (40.0-70.0) 07/25/18 09:30 0 % 07/25/18 09:30 35.0 % (13.4-35.0) 07/25/18 09:30 Reactive Lymphs % (Man) 0 % 07/25/18 09:30 1.0 % (0.0-7.3) 07/25/18 09:30 0 % (0.0-4.3) 07/25/18 09:30 0 % (0.0-1.8) 07/25/18 09:30 0 % 07/25/18 09:30 1.0 % 07/25/18 09:30 0 % 07/25/18 09:30 0 % 07/25/18 09:30 Nucleated RBC % Not Reportable 07/25/18 09:30 Seg Neutrophils # 1.6 K/mm3 (1.8-7.7) L 08/13/18 05:58 Seg Neutrophils # Man 4.9 K/mm3 (1.8-7.7) 07/25/18 09:30 Band Neutrophils # 0.0 K/mm3 07/25/18 09:30 Abs Lymphs (Manual) 220 cells/uL (850-3900) L 07/12/18 19:29 2.7 K/mm3 (1.2-5.4) 07/25/18 09:30 Abs React Lymphs (Man) 0.0 K/mm3 07/25/18 09:30 0.1 K/mm3 (0.0-0.8) 07/25/18 09:30 0.0 K/mm3 (0.0-0.4) 07/25/18 09:30 0.0 K/mm3 (0.0-0.1) 07/25/18 09:30 0.0 K/mm3 07/25/18 09:30 0.1 K/mm3 07/25/18 09:30 0.0 K/mm3 07/25/18 09:30 Blast Cells # 0.0 K/mm3 07/25/18 09:30 WBC Morphology Not Reportable 07/25/18 09:30 Hypersegmented Neuts Not Reportable 07/25/18 09:30 Hyposegmented Neuts Not Reportable 07/25/18 09:30 Hypogranular Neuts Not Reportable 07/25/18 09:30 Not Reportable 07/25/18 09:30 Not Reportable 07/25/18 09:30 Not Reportable 07/25/18 09:30 Not Reportable 07/25/18 09:30 Not Reportable 07/25/18 09:30 Not Reportable 07/25/18 09:30 Consistent w auto 07/25/18 09:30 Not Reportable 07/25/18 09:30 Plt Clumps, EDTA Not Reportable 07/25/18 09:30 Not Reportable 07/25/18 09:30 Not Reportable 07/25/18 09:30 Not Reportable 07/25/18 09:30 Plt Morphology Comment Not Reportable 07/25/18 09:30 RBC Morphology Not Reportable 07/25/18 09:30 Dimorphic RBCs Not Reportable 07/25/18 09:30 Few 07/25/18 09:30 Not Reportable 07/25/18 09:30 Not Reportable 07/25/18 09:30 1+ 07/25/18 09:30 Not Reportable 07/25/18 09:30 Few 07/25/18 09:30 Not Reportable 07/25/18 09:30 Not Reportable 07/25/18 09:30 Not Reportable 07/25/18 09:30 Rare 07/25/18 09:30 Not Reportable 07/25/18 09:30 Not Reportable 07/25/18 09:30 Not Reportable 07/25/18 09:30 Not Reportable 07/25/18 09:30 Not Reportable 07/25/18 09:30 Not Reportable 07/25/18 09:30 Not Reportable 07/25/18 09:30 Not Reportable 07/25/18 09:30 Not Reportable 07/25/18 09:30 Acanthocytes (Spur) Not Reportable 07/25/18 09:30 Rouleaux Not Reportable 07/25/18 09:30 Not Reportable 07/25/18 09:30 Not Reportable 07/25/18 09:30 Not Reportable 07/25/18 09:30 Not Reportable 07/25/18 09:30 Hem Pathologist Commnt No 07/25/18 09:30 1298.70 ng/mlDDU (0-234) H 07/11/18 15:04 POC ABG pH 7.507 (7.35-7.45) H 08/06/18 22:01 POC ABG pCO2 33.6 (35-45) L 08/06/18 22:01 POC ABG pO2 113 (80-105) H 08/06/18 22:01 POC ABG HCO3 26.6 (22-26 mml/L) 08/06/18 22:01 POC ABG Total CO2 28 (23-27mmol/L) 08/06/18 22:01 POC ABG O2 Sat 99 08/06/18 22:01 POC ABG Base Excess 4 ((-2) - (+3)mmol/L) 08/06/18 22:01 35 % 08/06/18 22:01 Sodium 140 mmol/L (137-145) 08/13/18 05:58 Potassium 3.6 mmol/L (3.6-5.0) 08/13/18 05:58 Chloride 111.1 mmol/L (98-107) H 08/13/18 05:58 Carbon Dioxide 19 mmol/L (22-30) L 08/13/18 05:58 14 mmol/L 08/13/18 05:58 BUN 11 mg/dL (9-20) 08/13/18 05:58 0.4 mg/dL (0.8-1.5) L 08/13/18 05:58 Estimated GFR > 60 ml/min 08/13/18 05:58 28 % 08/13/18 05:58 Glucose 91 mg/dL (75-100) 08/13/18 05:58 POC Glucose 92 (70-105) 08/12/18 23:56 Lactic Acid 1.80 mmol/L (0.7-2.0) 07/11/18 21:01 Calcium 8.0 mg/dL (8.4-10.2) L 08/13/18 05:58 Magnesium 1.70 mg/dL (1.7-2.3) 08/07/18 07:57 < 0.20 mg/dL (0.1-1.2) 08/13/18 05:58 AST 35 units/L (5-40) 08/13/18 05:58 ALT 49 units/L (7-56) 08/13/18 05:58 76 units/L (35-129) 08/13/18 05:58 731 units/L (91-180) H 07/12/18 19:29 < 0.010 ng/mL (0.00-0.029) 07/11/18 15:04 2.70 mg/dL (0.00-1.30) H 07/15/18 14:09 NT-Pro-B Natriuret Pep 249.7 pg/mL (0-450) 07/11/18 15:04 5.3 g/dL (6.3-8.2) L 08/13/18 05:58 2.4 g/dL (3.9-5) L 08/13/18 05:58 0.8 % 08/13/18 05:58 Triglycerides 209 mg/dL (2-149) H 07/28/18 05:20 Yellow (Yellow) 07/15/18 14:14 Clear (Clear) 07/15/18 14:14 6.0 (5.0-7.0) 07/15/18 14:14 Ur Specific [place] 1.015 (1.003-1.030) 07/15/18 14:14 30 mg/dl mg/dL (Negative) 07/15/18 14:14 Neg mg/dL (Negative) 07/15/18 14:14 Neg mg/dL (Negative) 07/15/18 14:14 Neg (Negative) 07/15/18 14:14 Neg (Negative) 07/15/18 14:14 Neg (Negative) 07/15/18 14:14 < 2.0 mg/dL (<2.0) 07/15/18 14:14 Ur Leukocyte Esterase Neg (Negative) 07/15/18 14:14 2.0 /HPF (0.0-6.0) 07/15/18 14:14 6.0 /HPF (0.0-6.0) 07/15/18 14:14 21 mmol/L 07/19/18 14:27 Lymph Enumerat CD4/CD8 0.04 (0.86-5.00) L 07/12/18 19:29 % CD3 Cells 88 % (57-85) H 07/12/18 19:29 194 cells/uL (840-3060) L 07/12/18 19:29 % CD4 Cells 3 % (30-61) L 07/12/18 19:29 7 cells/uL (490-1740) L 07/12/18 19:29 % CD8 Cells 75 % (12-42) H 07/12/18 19:29 177 cells/uL (180-1170) L 07/12/18 19:29 % CD19 Cells 4 % (6-29) L 07/12/18 19:29 9 cells/uL (110-660) L 07/12/18 19:29 RPR Nonreactive (Nonreactive) 07/12/18 23:38 CMV DNA PCR log scleroscope tester/mL See scanned report 08/06/18 07:38 Hepatitis A IgM Ab Non-reactive (NonReactive) 07/12/18 23:38 Hep Bs Antigen Non-reactive (Negative) 07/12/18 23:38 Hep B Core IgM Ab Non-reactive (NonReactive) 07/12/18 23:38 Non-reactive (NonReactive) 07/12/18 23:38 HIV-1 RNA PCR copies/ml [id number] Copies/mL H 07/12/18 19:29 5.72 Log cps/mL H 07/12/18 19:29 Detected H 07/25/18 17:05 Flexitest 1 H 07/16/18 07:21 Blood Type O POSITIVE 07/24/18 07:50 Antibody Screen Positive 07/24/18 07:50 Prewarmed Antibody Srcn Positive 07/18/18 03:10 Antibody Identification Anti-Adrianna 07/24/18 07:50 Direct Antiglob Test Negative 07/24/18 07:50 NIKUNJ, Poly Interpret Negative 07/24/18 07:50 Crossmatch See Detail 07/24/18 07:50 Active Medications - Current Medications Current Medications: Generic Name Dose Route Start Last Admin Trade Name Freq PRN Reason Stop Dose Admin Acetaminophen 650 mg 07/12/18 18:07 08/12/18 22:46 Tylenol FEEDTUBE 650 mg Q6H PRN Administration Non Cardiac Pain or Temp>100.5 Albuterol 2.5 mg 07/11/18 17:16 07/26/18 12:07 Proventil IH 2.5 mg Q3HRT PRN Administration Shortness Of Breath Lipase/Protease/Amylase 1 each 08/09/18 17:59 Pancreaze 10,500 Unit FEEDTUBE PRN PRN For Clogged Feeding Tube Bismuth Subsalicylate 262 mg 08/12/18 15:00 Pepto Bismol PO Q6H PRN Diarrhea Doxazosin Mesylate 2 mg 07/18/18 12:00 08/14/18 11:48 Cardura PO 2 mg QDAY HE Administration Emtricitabine 200 mg 08/07/18 10:00 08/14/18 11:49 Emtriva PO 200 mg QDAY HE Administration Famotidine 20 mg 07/16/18 22:00 08/14/18 21:15 Pepcid PO 20 mg BID HE Administration Guaifenesin 10 ml 08/14/18 22:26 08/14/18 23:59 Guaifenesin Dm Syrup PO 10 ml Q4H PRN Administration Cough Heparin Sodium (Porcine) 5,000 unit 08/03/18 22:00 08/15/18 08:09 Heparin SUB-Q Not Given TID HE Hydromorphone HCl 0.5 mg 08/15/18 12:24 08/15/18 12:35 Dilaudid IV 08/15/18 23:59 0.5 mg Q10MIN PRN Administration Pain , Severe (7-10) Hydrophilic Ointment 1 applic 07/12/18 13:30 Vaseline Lip Therapy TP Q2HR PRN Dry Lips Sodium Chloride 1,000 mls @ 100 mls/hr 08/08/18 22:00 08/15/18 07:18 Nacl 0.9% 1000 Ml IV 100 mls/hr DIRECT HE Administration Metronidazole 500 mg 08/15/18 12:00 Flagyl PO Q8HR [facility] Protocol Midazolam HCl 2 mg 07/16/18 13:06 07/26/18 17:42 Versed IV 2 mg Q2H PRN Administration AGITATION Multi-Ingred Cream/Lotion/Oil/Oint 1 applic 07/12/18 13:30 Artificial Tears Ophth Oint OU Q4HR PRN Dry Eye(s) Ondansetron HCl 4 mg 08/12/18 14:05 Zofran IV QID PRN Nausea And Vomiting Ondansetron HCl 4 mg 08/15/18 12:24 Zofran IV ONCE PRN Nausea And Vomiting Quetiapine Fumarate 200 mg 08/07/18 22:00 08/14/18 21:16 Seroquel PO 200 mg QHS HE Administration Simple Syrup 15 ml 08/09/18 17:59 Simple Syrup FEEDTUBE PRN PRN Hypoglycemia Simple Syrup 30 ml 08/09/18 17:59 Simple Syrup FEEDTUBE PRN PRN Hypoglycemia Sodium Bicarbonate 325 mg 08/09/18 17:59 Sodium Bicarbonate FEEDTUBE PRN PRN For Clogged Feeding Tube Sodium Chloride 10 ml 07/11/18 22:00 08/14/18 21:18 Sodium Chloride Flush Syringe 10 Ml IV 10 ml BID HE Administration Sodium Chloride 10 ml 07/11/18 17:16 07/18/18 09:00 Sodium Chloride Flush Syringe 10 Ml IV 10 ml PRN PRN Administration LINE FLUSH Tenofovir Disoproxil Fumarate 300 mg 08/07/18 10:00 08/14/18 11:49 Viread PO 300 mg QDAY HE Administration Trimethoprim/Sulfamethoxazole 160 mg 08/01/18 10:00 08/14/18 11:50 Bactrim 200-40 Mg/5 Ml PO 160 mg DAILY HE Administration Nutrition/Malnutrition Assess - Dietary Evaluation Nutrition/Malnutrition Findings: Nutrition Notes Start: 07/12/18 09:38 Freq: Status: Active Protocol: Document 08/14/18 16:11 RM (Rec: 08/14/18 16:15 RM [id number]) Nutrition Notes Initial or Follow up Reassessment Current Diagnosis Sepsis,Respiratory Failure Other Pertinent Diagnosis Bilat pneu, HIV/AIDS, Diarrhea ,PEG Current Diet Regular Labs/Tests Reviewed Pertinent Medications Reviewed Height 5 ft 11 in Weight 55 kg [place] Body Weight (kg) 78.18 BMI 16.9 Subjective/Other Information Regular diet recommended per progress note 08/13/18. Pt stated that his appetite is good and that he eats most of his meals. Percent of energy/protein needs met: 66%/97% Burn Absent Trauma Absent #2 Nutrition Diagnosis Inadequate oral intake As Evidenced by Signs and Symptoms pt meeting 66% of calorie and 97% of protein needs Diagnosis Progress(for reassessment Improved documentation) #1 Nutrition Diagnosis Malnutrition Diagnosis Progress(for reassessment Continues documentation) Is patient on ventilator? No Is Patient Ambulatory and/or Out of Bed No REE-([facility]-confined to bed) 1805.352 Kcal/Kg value to use for calculation 48 Approximate Energy Requirements Using 2640 kcal/Kg Calculation Used for Recommendations Kcal/kg Additional Notes Pro needs 1.2-1.5 g/k-83g /day Fluid needs 1ml/kcal Nutrition Intervention Change Diet Order: Continue curent Add Supplement/Snack (indicate name/kcal Ensure Enlive 1 daily /protein ) Provides kCal: 350 Provides Protein (gm) 20 Goal #1 Meet at least 75% of calorie and protein needs via PO and ONS intakes Anticipated Discharge Needs: Regular diet Follow-Up By: 08/17/18 Additional Comments Follow for PO and ONS intakes
[2018-08-15] MEDS: CARDURA PO SCH (16:30)
[2018-08-15] MEDS: BACTRIM 200-40 MG/5 ML PO SCH (16:40)
[2018-08-15] MEDS: TIVICAY PO SCH (16:40)
[2018-08-15] MEDS: EMTRIVA PO SCH (16:41)
[2018-08-15] MEDS: VIREAD PO SCH (16:41)
[2018-08-15] MEDS: PEPCID PO SCH ×2 (16:42→21:58)
[2018-08-15] MEDS: FLAGYL PO SCH ×2 (16:43→21:58)
[2018-08-15] MEDS: SODIUM CHLORIDE FLUSH SYRINGE 10 ML IV SCH ×2 (16:44→21:59)
--- NOTE | 2018-08-15 20:01 | Operative Report ---
PREOPERATIVE DIAGNOSIS: Unstageable sacral wound. POSTOPERATIVE DIAGNOSIS: Unstageable sacral wound. FINDINGS: Stage 3 sacral wound measuring 5.5 cm x 3.5 cm x 0.25 cm, that is, width x length x height. PROCEDURE: Excisional debridement of sacral wound. ANESTHESIA: MAC local. SURGEON: Mallory Walters DO ESTIMATED BLOOD LOSS: Minimal. PATHOLOGY: None. CONDITION DISPOSITION: The patient is stable to PACU. HISTORY OF PRESENT ILLNESS AND INDICATION: The patient is a 37-year-old male who presented to the hospital with shortness of breath on 07/11/2018. He was found to have PCP pneumonia and respiratory failure and was on the ventilator for a prolonged period of time. He did undergo tracheostomy and PEG tube and this was eventually weaned off the ventilator. He was seen by wound care and was found to have an unstageable sacral wound. The patient had increased sensation in that area and a debridement was warranted. I discussed all risks, benefits and alternatives to surgery with the patient. Consent obtained. DESCRIPTION OF PROCEDURE IN DETAIL: The patient was identified in the preoperative area and taken back to the operating room and placed on the operating table in lateral decubitus position with the right side up. All bony prominences were padded. After anesthesia was induced, the sacrum was prepped with Betadine and draped in the usual sterile fashion. All necrotic and devitalized skin and subcutaneous tissue was then debrided using forceps, 15 blade as well as electrocautery. Once all devitalized tissue was excised, the hemostasis was achieved using electrocautery. The wound was irrigated and hemostasis ensured. The wound was then packed with saline moistened Kerlix covered with dry 4 x 4 gauze, ABD pad and Medipore tape. At the end of the case, all sponge, instrument, sharp counts were correct x 2. The patient was awokened from anesthesia and taken to PACU in stable condition. JOB# [id number] NK/SUSAN
[2018-08-16] MEDS: TYLENOL FEEDTUBE PRN (05:48)
[2018-08-16] MEDS: FLAGYL PO SCH ×3 (05:49→21:04)
--- NOTE | 2018-08-16 08:34 | Progress Note ---
Assessment and Plan Acute Hypoxic respiratory failure s/p mechanical ventilation s/p Tracheostomy Severe sepsis with septic shock, resolved Severe ARDS , resolved Sepsis present on admission with grater than 2 SOFA criteria PJP (pneumocystis jiroveci pneumonia) Diarrhea Hyponatremia Hyperkalemia Moderate Protein Malnutrition AIDS ANEMIA Elevated d/DIMER- NO PE noted Nicotine dependance/Tobacco use disorder Sacral decubitus s/p debridement Decanulate and monitor closely Continue all supportive care PT/OT-increase activity Wound care, off loading Continue all care as documented below Discharge planning -Transfuse to keep HgB>7g/dL as indicated - Antibiotics, anti-infectives per ID service. -ART per ID service, Antibiotic prophylaxis for OI per ID - Continue bronchodilators with pulmonary hygiene per RT - Monitor renal indices closely - Avoid nephrotoxic agents - Tube feedings -VTE prophylaxis - Accuchecks with glycemic control. Target glucose of 140-180 mg/dL - Maintenance of sleep -wake cycle - Influenza and pneumonia vaccination per protocol ..care plan discussed at length with RN/RT at the bedside Subjective Date of service: 08/16/18 Principal diagnosis: Acute hypoxemic resp failure; Bilateral pneumonia (PJP); HIV/AIDS Interval history: Patient is seen today for: Acute hypoxemic respiratory failure, on mechanical ventilatory support; Bilateral pneumonia, high suspicion for Pneumocystis jiroveci pneumonia; Human immunodeficiency virus/acquired immunodeficiency syndrome,noncompliant with therapy; Hyponatremia; Severe protein calorie malnutrition. Seen and examined at bedside; 24-hour events reviewed; nursing and respiratory care staff consulted; no adverse overnight events reported to me; resting peacefully in bed. Awake and alert, No fevers, no vomiting, no diarrhea. Denies any chest pain, no shortness of breath, tolerating tube feedings; s/p trachesotomy, s/p PEG S/p sacral decubitus debridement yesterday, capped trach and tolerating it well Objective Vital Signs - 12hr 08/15/18 08/15/18 22:00 22:30 Temperature 98.4 F Pulse Rate 88 101 H Respiratory 20 Rate Blood Pressure 99/61 O2 Sat by Pulse 96 Oximetry Constitutional: no acute distress, alert, other (young AAM; normocephalic and atraumatic) Eyes: non-icteric ENT: oropharynx moist, other (mallampati 2) Neck: supple, no lymphadenopathy, no JVD, other (+ midline tracheostomy tube in place, capped) Effort: normal Ascultation: Bilateral: diminished breath sounds, rales, rhonchi Percussion: Bilateral: not dull Cardiovascular: regular rate and rhythm, other (S1,S2, no murmurs, gallops or rubs) Gastrointestinal: normoactive bowel sounds, soft, non-tender, non-distended Integumentary: normal Extremities: no cyanosis, no edema, pulses normal, no ischemia or petechiae Neurologic: normal mental status, non-focal exam, pupils equal and round, CN II- XII normal, motor strength normal and Psychiatric: mood appropriate, affect normal CBC and BMP: 08/17/18 00:35 08/13/18 05:58 ABG, PT/INR, D-dimer: ABG POC ABG pH 7.507 (7.35-7.45) H 08/06/18 22:01 POC ABG pCO2 33.6 (35-45) L 08/06/18 22:01 POC ABG pO2 113 (80-105) H 08/06/18 22:01 POC ABG HCO3 26.6 (22-26 mml/L) 08/06/18 22:01 POC ABG Total CO2 28 (23-27mmol/L) 08/06/18 22:01 POC ABG O2 Sat 99 08/06/18 22:01 PT/INR, D-dimer 1298.70 ng/mlDDU (0-234) H 07/11/18 15:04 Abnormal lab findings: Abnormal Labs 07/11/18 07/11/18 07/11/18 14:06 14:06 15:04 WBC RBC 3.30 L Hgb 9.6 L Hct 28.7 L MCHC RDW Plt Count Lymph % (Auto) [place] % (Auto) Eos % (Auto) Lymph # Seg Neutrophils % Seg Neutrophils # Abs Lymphs (Manual) D-Dimer 1298.70 H POC ABG pH POC ABG pCO2 POC ABG pO2 Sodium 132 L Potassium Chloride Carbon Dioxide BUN Creatinine 0.6 L Glucose 103 H POC Glucose Calcium 7.3 L AST ALT Lactate Dehydrogenase C-Reactive Protein Total Protein Albumin 2.1 L Triglycerides Lymph Enumerat CD4/CD8 % CD3 Cells Absolute CD3 Count % CD4 Cells Absolute CD4 Count % CD8 Cells Absolute CD8 Count % CD19 Cells Absolute CD19 Count HIV-1 RNA PCR copies/ml HIV-1 RNA (PCR) log HIV-1 Genotyping Miscellaneous Test Crossmatch 07/11/18 07/11/18 07/12/18 17:36 22:15 00:25 WBC RBC Hgb Hct MCHC RDW Plt Count Lymph % (Auto) [place] % (Auto) Eos % (Auto) Lymph # Seg Neutrophils % Seg Neutrophils # Abs Lymphs (Manual) D-Dimer POC ABG pH 7.289 L POC ABG pCO2 POC ABG pO2 66 L Sodium Potassium Chloride Carbon Dioxide BUN Creatinine Glucose POC Glucose Calcium AST ALT Lactate Dehydrogenase 591 H C-Reactive Protein Total Protein Albumin Triglycerides Lymph Enumerat CD4/CD8 % CD3 Cells Absolute CD3 Count % CD4 Cells Absolute CD4 Count % CD8 Cells Absolute CD8 Count % CD19 Cells Absolute CD19 Count HIV-1 RNA PCR copies/ml HIV-1 RNA (PCR) log HIV-1 Genotyping Miscellaneous Test see below H Crossmatch 07/12/18 07/12/18 07/12/18 00:41 05:37 19:29 WBC RBC Hgb Hct MCHC RDW Plt Count Lymph % (Auto) [place] % (Auto) Eos % (Auto) Lymph # Seg Neutrophils % Seg Neutrophils # Abs Lymphs (Manual) D-Dimer POC ABG pH 7.302 L 7.275 L POC ABG pCO2 47.1 H POC ABG pO2 Sodium Potassium Chloride Carbon Dioxide BUN Creatinine Glucose POC Glucose Calcium AST ALT Lactate Dehydrogenase 731 H C-Reactive Protein Total Protein Albumin Triglycerides Lymph Enumerat CD4/CD8 % CD3 Cells Absolute CD3 Count % CD4 Cells Absolute CD4 Count % CD8 Cells Absolute CD8 Count % CD19 Cells Absolute CD19 Count HIV-1 RNA PCR copies/ml HIV-1 RNA (PCR) log HIV-1 Genotyping Miscellaneous Test Crossmatch 07/12/18 07/12/18 07/13/18 19:29 19:29 04:03 WBC RBC Hgb Hct MCHC RDW Plt Count Lymph % (Auto) [place] % (Auto) Eos % (Auto) Lymph # Seg Neutrophils % Seg Neutrophils # Abs Lymphs (Manual) 220 L D-Dimer POC ABG pH 7.254 L POC ABG pCO2 49.2 H POC ABG pO2 Sodium Potassium Chloride Carbon Dioxide BUN Creatinine Glucose POC Glucose Calcium AST ALT Lactate Dehydrogenase C-Reactive Protein Total Protein Albumin Triglycerides Lymph Enumerat CD4/CD8 0.04 L % CD3 Cells 88 H Absolute CD3 Count 194 L % CD4 Cells 3 L Absolute CD4 Count 7 L % CD8 Cells 75 H Absolute CD8 Count 177 L % CD19 Cells 4 L Absolute CD19 Count 9 L HIV-1 RNA PCR copies/ml 415678 H HIV-1 RNA (PCR) log 5.72 H HIV-1 Genotyping Miscellaneous Test Crossmatch 07/13/18 07/13/18 07/13/18 05:46 12:23 18:31 WBC RBC Hgb Hct MCHC RDW Plt Count Lymph % (Auto) [place] % (Auto) Eos % (Auto) Lymph # Seg Neutrophils % Seg Neutrophils # Abs Lymphs (Manual) D-Dimer POC ABG pH POC ABG pCO2 POC ABG pO2 Sodium Potassium Chloride Carbon Dioxide BUN Creatinine Glucose POC Glucose 68 L 106 H 112 H Calcium AST ALT Lactate Dehydrogenase C-Reactive Protein Total Protein Albumin Triglycerides Lymph Enumerat CD4/CD8 % CD3 Cells Absolute CD3 Count % CD4 Cells Absolute CD4 Count % CD8 Cells Absolute CD8 Count % CD19 Cells Absolute CD19 Count HIV-1 RNA PCR copies/ml HIV-1 RNA (PCR) log HIV-1 Genotyping Miscellaneous Test Crossmatch 07/14/18 07/14/18 07/14/18 04:19 05:36 05:36 WBC RBC 2.99 L Hgb 8.8 L Hct 25.7 L MCHC RDW 15.5 H Plt Count Lymph % (Auto) [place] % (Auto) Eos % (Auto) Lymph # Seg Neutrophils % Seg Neutrophils # Abs Lymphs (Manual) D-Dimer POC ABG pH 7.337 L POC ABG pCO2 POC ABG pO2 Sodium 135 L Potassium Chloride Carbon Dioxide 21 L BUN Creatinine 0.7 L Glucose 123 H POC Glucose Calcium 8.2 L AST ALT Lactate Dehydrogenase C-Reactive Protein Total Protein Albumin Triglycerides Lymph Enumerat CD4/CD8 % CD3 Cells Absolute CD3 Count % CD4 Cells Absolute CD4 Count % CD8 Cells Absolute CD8 Count % CD19 Cells Absolute CD19 Count HIV-1 RNA PCR copies/ml HIV-1 RNA (PCR) log HIV-1 Genotyping Miscellaneous Test Crossmatch 07/14/18 07/14/18 07/14/18 12:14 14:33 17:18 WBC RBC Hgb Hct MCHC RDW Plt Count Lymph % (Auto) [place] % (Auto) Eos % (Auto) Lymph # Seg Neutrophils % Seg Neutrophils # Abs Lymphs (Manual) D-Dimer POC ABG pH 7.325 L POC ABG pCO2 POC ABG pO2 75 L Sodium Potassium Chloride Carbon Dioxide BUN Creatinine Glucose POC Glucose 174 H 114 H Calcium AST ALT Lactate Dehydrogenase C-Reactive Protein Total Protein Albumin Triglycerides Lymph Enumerat CD4/CD8 % CD3 Cells Absolute CD3 Count % CD4 Cells Absolute CD4 Count % CD8 Cells Absolute CD8 Count % CD19 Cells Absolute CD19 Count HIV-1 RNA PCR copies/ml HIV-1 RNA (PCR) log HIV-1 Genotyping Miscellaneous Test Crossmatch 07/15/18 07/15/18 07/15/18 00:17 12:29 12:29 WBC RBC 2.64 L Hgb 7.5 L Hct 22.9 L MCHC RDW 15.4 H Plt Count Lymph % (Auto) 7.0 L [place] % (Auto) Eos % (Auto) Lymph # 0.4 L Seg Neutrophils % 89.6 H Seg Neutrophils # Abs Lymphs (Manual) D-Dimer POC ABG pH POC ABG pCO2 POC ABG pO2 Sodium Potassium Chloride Carbon Dioxide BUN Creatinine 0.6 L Glucose 124 H POC Glucose 113 H Calcium 7.3 L AST ALT Lactate Dehydrogenase C-Reactive Protein Total Protein Albumin Triglycerides Lymph Enumerat CD4/CD8 % CD3 Cells Absolute CD3 Count % CD4 Cells Absolute CD4 Count % CD8 Cells Absolute CD8 Count % CD19 Cells Absolute CD19 Count HIV-1 RNA PCR copies/ml HIV-1 RNA (PCR) log HIV-1 Genotyping Miscellaneous Test Crossmatch 07/15/18 07/16/18 07/16/18 14:09 04:46 07:21 WBC RBC Hgb Hct MCHC RDW Plt Count Lymph % (Auto) [place] % (Auto) Eos % (Auto) Lymph # Seg Neutrophils % Seg Neutrophils # Abs Lymphs (Manual) D-Dimer POC ABG pH 7.282 L POC ABG pCO2 52.6 H POC ABG pO2 63 L Sodium Potassium Chloride Carbon Dioxide BUN Creatinine Glucose POC Glucose Calcium AST ALT Lactate Dehydrogenase C-Reactive Protein 2.70 H Total Protein Albumin Triglycerides Lymph Enumerat CD4/CD8 % CD3 Cells Absolute CD3 Count % CD4 Cells Absolute CD4 Count % CD8 Cells Absolute CD8 Count % CD19 Cells Absolute CD19 Count HIV-1 RNA PCR copies/ml HIV-1 RNA (PCR) log HIV-1 Genotyping Miscellaneous Test Flexitest 1 H Crossmatch 07/16/18 07/16/18 07/16/18 07:21 07:21 16:16 WBC RBC 2.48 L Hgb 7.2 L Hct 21.5 L MCHC RDW 15.7 H Plt Count Lymph % (Auto) [place] % (Auto) Eos % (Auto) Lymph # Seg Neutrophils % Seg Neutrophils # Abs Lymphs (Manual) D-Dimer POC ABG pH 7.251 L POC ABG pCO2 62.2 H POC ABG pO2 Sodium 136 L Potassium Chloride Carbon Dioxide BUN Creatinine 0.6 L Glucose 118 H POC Glucose Calcium 7.5 L AST ALT Lactate Dehydrogenase C-Reactive Protein Total Protein Albumin Triglycerides Lymph Enumerat CD4/CD8 % CD3 Cells Absolute CD3 Count % CD4 Cells Absolute CD4 Count % CD8 Cells Absolute CD8 Count % CD19 Cells Absolute CD19 Count HIV-1 RNA PCR copies/ml HIV-1 RNA (PCR) log HIV-1 Genotyping Miscellaneous Test Crossmatch 07/17/18 07/18/18 07/18/18 04:01 01:10 03:10 WBC RBC 2.20 L Hgb 6.5 L Hct 19.2 L* MCHC RDW 16.0 H Plt Count Lymph % (Auto) 7.2 L [place] % (Auto) Eos % (Auto) Lymph # 0.5 L Seg Neutrophils % 89.9 H Seg Neutrophils # Abs Lymphs (Manual) D-Dimer POC ABG pH 7.245 L POC ABG pCO2 63.8 H POC ABG pO2 75 L Sodium Potassium Chloride Carbon Dioxide BUN Creatinine Glucose POC Glucose Calcium AST ALT Lactate Dehydrogenase C-Reactive Protein Total Protein Albumin Triglycerides Lymph Enumerat CD4/CD8 % CD3 Cells Absolute CD3 Count % CD4 Cells Absolute CD4 Count % CD8 Cells Absolute CD8 Count % CD19 Cells Absolute CD19 Count HIV-1 RNA PCR copies/ml HIV-1 RNA (PCR) log HIV-1 Genotyping Miscellaneous Test Crossmatch See Detail 07/18/18 07/18/18 07/18/18 04:54 05:02 12:59 WBC RBC Hgb Hct MCHC RDW Plt Count Lymph % (Auto) [place] % (Auto) Eos % (Auto) Lymph # Seg Neutrophils % Seg Neutrophils # Abs Lymphs (Manual) D-Dimer POC ABG pH 7.615 H POC ABG pCO2 32.6 L 48.8 H POC ABG pO2 79 L 118 H Sodium Potassium Chloride Carbon Dioxide BUN Creatinine Glucose POC Glucose 164 H Calcium AST ALT Lactate Dehydrogenase C-Reactive Protein Total Protein Albumin Triglycerides Lymph Enumerat CD4/CD8 % CD3 Cells Absolute CD3 Count % CD4 Cells Absolute CD4 Count % CD8 Cells Absolute CD8 Count % CD19 Cells Absolute CD19 Count HIV-1 RNA PCR copies/ml HIV-1 RNA (PCR) log HIV-1 Genotyping Miscellaneous Test Crossmatch 07/18/18 07/18/18 07/19/18 18:25 20:39 03:53 WBC RBC Hgb Hct MCHC RDW Plt Count Lymph % (Auto) [place] % (Auto) Eos % (Auto) Lymph # Seg Neutrophils % Seg Neutrophils # Abs Lymphs (Manual) D-Dimer POC ABG pH 7.339 L POC ABG pCO2 59.9 H 65.0 H POC ABG pO2 69 L Sodium Potassium Chloride Carbon Dioxide BUN Creatinine Glucose POC Glucose 155 H Calcium AST ALT Lactate Dehydrogenase C-Reactive Protein Total Protein Albumin Triglycerides Lymph Enumerat CD4/CD8 % CD3 Cells Absolute CD3 Count % CD4 Cells Absolute CD4 Count % CD8 Cells Absolute CD8 Count % CD19 Cells Absolute CD19 Count HIV-1 RNA PCR copies/ml HIV-1 RNA (PCR) log HIV-1 Genotyping Miscellaneous Test Crossmatch 07/19/18 07/19/18 07/19/18 08:10 08:10 10:52 WBC RBC 2.51 L Hgb 7.4 L Hct 22.0 L MCHC RDW 15.5 H Plt Count Lymph % (Auto) [place] % (Auto) Eos % (Auto) Lymph # Seg Neutrophils % Seg Neutrophils # Abs Lymphs (Manual) D-Dimer POC ABG pH POC ABG pCO2 POC ABG pO2 Sodium 130 L Potassium Chloride 89.0 L Carbon Dioxide 33 H BUN Creatinine 0.4 L Glucose 150 H POC Glucose 173 H Calcium 7.5 L AST ALT Lactate Dehydrogenase C-Reactive Protein Total Protein Albumin Triglycerides Lymph Enumerat CD4/CD8 % CD3 Cells Absolute CD3 Count % CD4 Cells Absolute CD4 Count % CD8 Cells Absolute CD8 Count % CD19 Cells Absolute CD19 Count HIV-1 RNA PCR copies/ml HIV-1 RNA (PCR) log HIV-1 Genotyping Miscellaneous Test Crossmatch 07/19/18 07/19/18 07/20/18 17:06 23:47 04:37 WBC RBC Hgb Hct MCHC RDW Plt Count Lymph % (Auto) [place] % (Auto) Eos % (Auto) Lymph # Seg Neutrophils % Seg Neutrophils # Abs Lymphs (Manual) D-Dimer POC ABG pH POC ABG pCO2 58.5 H POC ABG pO2 67 L Sodium Potassium Chloride Carbon Dioxide BUN Creatinine Glucose POC Glucose 117 H 114 H Calcium AST ALT Lactate Dehydrogenase C-Reactive Protein Total Protein Albumin Triglycerides Lymph Enumerat CD4/CD8 % CD3 Cells Absolute CD3 Count % CD4 Cells Absolute CD4 Count % CD8 Cells Absolute CD8 Count % CD19 Cells Absolute CD19 Count HIV-1 RNA PCR copies/ml HIV-1 RNA (PCR) log HIV-1 Genotyping Miscellaneous Test Crossmatch 07/20/18 07/20/18 07/21/18 06:20 06:20 04:18 WBC RBC 2.69 L Hgb 7.8 L Hct 23.6 L MCHC RDW 15.5 H Plt Count Lymph % (Auto) [place] % (Auto) Eos % (Auto) Lymph # Seg Neutrophils % Seg Neutrophils # Abs Lymphs (Manual) D-Dimer POC ABG pH 7.456 H POC ABG pCO2 60.4 H POC ABG pO2 64 L Sodium 134 L Potassium Chloride 89.2 L Carbon Dioxide 38 H BUN Creatinine 0.7 L D Glucose 120 H POC Glucose Calcium 7.6 L AST ALT Lactate Dehydrogenase C-Reactive Protein Total Protein Albumin Triglycerides Lymph Enumerat CD4/CD8 % CD3 Cells Absolute CD3 Count % CD4 Cells Absolute CD4 Count % CD8 Cells Absolute CD8 Count % CD19 Cells Absolute CD19 Count HIV-1 RNA PCR copies/ml HIV-1 RNA (PCR) log HIV-1 Genotyping Miscellaneous Test Crossmatch 07/21/18 07/21/18 07/22/18 04:35 04:35 04:16 WBC RBC 2.62 L 2.37 L Hgb 7.7 L 7.0 L Hct 23.1 L 21.1 L MCHC RDW 15.4 H Plt Count Lymph % (Auto) [place] % (Auto) Eos % (Auto) Lymph # Seg Neutrophils % Seg Neutrophils # Abs Lymphs (Manual) D-Dimer POC ABG pH POC ABG pCO2 POC ABG pO2 Sodium 129 L Potassium 5.3 H Chloride 85.3 L Carbon Dioxide 38 H BUN Creatinine 0.4 L Glucose 108 H POC Glucose Calcium 8.0 L AST ALT Lactate Dehydrogenase C-Reactive Protein Total Protein Albumin Triglycerides Lymph Enumerat CD4/CD8 % CD3 Cells Absolute CD3 Count % CD4 Cells Absolute CD4 Count % CD8 Cells Absolute CD8 Count % CD19 Cells Absolute CD19 Count HIV-1 RNA PCR copies/ml HIV-1 RNA (PCR) log HIV-1 Genotyping Miscellaneous Test Crossmatch 07/22/18 07/23/18 07/23/18 04:16 03:25 12:45 WBC RBC Hgb Hct MCHC RDW Plt Count Lymph % (Auto) [place] % (Auto) Eos % (Auto) Lymph # Seg Neutrophils % Seg Neutrophils # Abs Lymphs (Manual) D-Dimer POC ABG pH POC ABG pCO2 69.4 H POC ABG pO2 Sodium 132 L 125 L D Potassium 5.4 H 5.3 H Chloride 87.4 L 80.3 L Carbon Dioxide 38 H 38 H BUN Creatinine 0.4 L 0.3 L Glucose 117 H 124 H POC Glucose Calcium 7.5 L 7.4 L AST ALT Lactate Dehydrogenase C-Reactive Protein Total Protein Albumin Triglycerides Lymph Enumerat CD4/CD8 % CD3 Cells Absolute CD3 Count % CD4 Cells Absolute CD4 Count % CD8 Cells Absolute CD8 Count % CD19 Cells Absolute CD19 Count HIV-1 RNA PCR copies/ml HIV-1 RNA (PCR) log HIV-1 Genotyping Miscellaneous Test Crossmatch 07/23/18 07/24/18 07/24/18 23:52 04:30 04:30 WBC RBC 2.12 L Hgb 6.3 L Hct 18.9 L* MCHC RDW Plt Count Lymph % (Auto) [place] % (Auto) Eos % (Auto) Lymph # Seg Neutrophils % Seg Neutrophils # Abs Lymphs (Manual) D-Dimer POC ABG pH POC ABG pCO2 POC ABG pO2 Sodium 127 L Potassium 5.2 H Chloride 83.9 L Carbon Dioxide 39 H BUN Creatinine 0.3 L Glucose POC Glucose 118 H Calcium 7.5 L AST ALT Lactate Dehydrogenase C-Reactive Protein Total Protein Albumin Triglycerides Lymph Enumerat CD4/CD8 % CD3 Cells Absolute CD3 Count % CD4 Cells Absolute CD4 Count % CD8 Cells Absolute CD8 Count % CD19 Cells Absolute CD19 Count HIV-1 RNA PCR copies/ml HIV-1 RNA (PCR) log HIV-1 Genotyping Miscellaneous Test Crossmatch 07/24/18 07/24/18 07/24/18 05:11 05:30 07:50 WBC RBC Hgb Hct MCHC RDW Plt Count Lymph % (Auto) [place] % (Auto) Eos % (Auto) Lymph # Seg Neutrophils % Seg Neutrophils # Abs Lymphs (Manual) D-Dimer POC ABG pH 7.462 H POC ABG pCO2 58.7 H POC ABG pO2 79 L Sodium Potassium Chloride Carbon Dioxide BUN Creatinine Glucose POC Glucose 145 H Calcium AST ALT Lactate Dehydrogenase C-Reactive Protein Total Protein Albumin Triglycerides Lymph Enumerat CD4/CD8 % CD3 Cells Absolute CD3 Count % CD4 Cells Absolute CD4 Count % CD8 Cells Absolute CD8 Count % CD19 Cells Absolute CD19 Count HIV-1 RNA PCR copies/ml HIV-1 RNA (PCR) log HIV-1 Genotyping Miscellaneous Test Crossmatch See Detail 07/25/18 07/25/18 07/25/18 09:30 09:30 17:05 WBC RBC 2.99 L Hgb 9.1 L Hct 27.0 L D MCHC RDW Plt Count Lymph % (Auto) [place] % (Auto) Eos % (Auto) Lymph # Seg Neutrophils % Seg Neutrophils # Abs Lymphs (Manual) D-Dimer POC ABG pH POC ABG pCO2 POC ABG pO2 Sodium 131 L Potassium 5.1 H Chloride 84.4 L Carbon Dioxide 39 H BUN Creatinine 0.3 L Glucose 133 H POC Glucose Calcium 8.0 L AST ALT Lactate Dehydrogenase C-Reactive Protein Total Protein Albumin Triglycerides Lymph Enumerat CD4/CD8 % CD3 Cells Absolute CD3 Count % CD4 Cells Absolute CD4 Count % CD8 Cells Absolute CD8 Count % CD19 Cells Absolute CD19 Count HIV-1 RNA PCR copies/ml HIV-1 RNA (PCR) log HIV-1 Genotyping Detected H Miscellaneous Test Crossmatch 07/26/18 07/26/18 07/26/18 00:18 04:07 05:50 WBC RBC 3.01 L Hgb 9.4 L Hct 27.2 L MCHC 35 H RDW Plt Count Lymph % (Auto) 10.4 L [place] % (Auto) Eos % (Auto) Lymph # 0.9 L Seg Neutrophils % 84.2 H Seg Neutrophils # Abs Lymphs (Manual) D-Dimer POC ABG pH 7.456 H POC ABG pCO2 61.4 H POC ABG pO2 68 L Sodium 135 L Potassium 5.5 H Chloride 88.4 L Carbon Dioxide 38 H BUN Creatinine 0.3 L Glucose POC Glucose Calcium AST ALT Lactate Dehydrogenase C-Reactive Protein Total Protein Albumin Triglycerides Lymph Enumerat CD4/CD8 % CD3 Cells Absolute CD3 Count % CD4 Cells Absolute CD4 Count % CD8 Cells Absolute CD8 Count % CD19 Cells Absolute CD19 Count HIV-1 RNA PCR copies/ml HIV-1 RNA (PCR) log HIV-1 Genotyping Miscellaneous Test Crossmatch 07/26/18 07/26/18 07/27/18 05:50 14:56 14:26 WBC RBC Hgb Hct MCHC RDW Plt Count Lymph % (Auto) [place] % (Auto) Eos % (Auto) Lymph # Seg Neutrophils % Seg Neutrophils # Abs Lymphs (Manual) D-Dimer POC ABG pH 7.472 H POC ABG pCO2 66.0 H 57.4 H POC ABG pO2 56 L 59 L Sodium 131 L Potassium 5.1 H Chloride 84.5 L Carbon Dioxide 39 H BUN Creatinine 0.3 L Glucose POC Glucose Calcium AST 78 H ALT 71 H Lactate Dehydrogenase C-Reactive Protein Total Protein 6.0 L Albumin 2.5 L Triglycerides Lymph Enumerat CD4/CD8 % CD3 Cells Absolute CD3 Count % CD4 Cells Absolute CD4 Count % CD8 Cells Absolute CD8 Count % CD19 Cells Absolute CD19 Count HIV-1 RNA PCR copies/ml HIV-1 RNA (PCR) log HIV-1 Genotyping Miscellaneous Test Crossmatch 07/28/18 07/28/18 07/28/18 05:20 05:20 05:20 WBC RBC 3.21 L Hgb 10.0 L Hct 29.9 L MCHC RDW 15.4 H Plt Count 451 H Lymph % (Auto) [place] % (Auto) Eos % (Auto) Lymph # Seg Neutrophils % 81.6 H Seg Neutrophils # Abs Lymphs (Manual) D-Dimer POC ABG pH POC ABG pCO2 POC ABG pO2 Sodium 136 L Potassium Chloride 89.9 L Carbon Dioxide 38 H BUN Creatinine 0.4 L Glucose POC Glucose Calcium 8.1 L AST 104 H ALT 113 H Lactate Dehydrogenase C-Reactive Protein Total Protein 6.2 L Albumin 2.5 L Triglycerides 209 H Lymph Enumerat CD4/CD8 % CD3 Cells Absolute CD3 Count % CD4 Cells Absolute CD4 Count % CD8 Cells Absolute CD8 Count % CD19 Cells Absolute CD19 Count HIV-1 RNA PCR copies/ml HIV-1 RNA (PCR) log HIV-1 Genotyping Miscellaneous Test Crossmatch 07/28/18 07/28/18 07/29/18 06:08 17:22 04:28 WBC RBC Hgb Hct MCHC RDW Plt Count Lymph % (Auto) [place] % (Auto) Eos % (Auto) Lymph # Seg Neutrophils % Seg Neutrophils # Abs Lymphs (Manual) D-Dimer POC ABG pH 7.328 L POC ABG pCO2 65.7 H 55.1 H POC ABG pO2 70 L 113 H 76 L Sodium Potassium Chloride Carbon Dioxide BUN Creatinine Glucose POC Glucose Calcium AST ALT Lactate Dehydrogenase C-Reactive Protein Total Protein Albumin Triglycerides Lymph Enumerat CD4/CD8 % CD3 Cells Absolute CD3 Count % CD4 Cells Absolute CD4 Count % CD8 Cells Absolute CD8 Count % CD19 Cells Absolute CD19 Count HIV-1 RNA PCR copies/ml HIV-1 RNA (PCR) log HIV-1 Genotyping Miscellaneous Test Crossmatch 08/02/18 08/02/18 08/03/18 06:30 06:30 06:30 WBC RBC 2.96 L 2.78 L Hgb 9.4 L 9.0 L Hct 27.6 L 26.3 L MCHC RDW 18.4 H 19.6 H Plt Count Lymph % (Auto) 11.1 L [place] % (Auto) Eos % (Auto) Lymph # 0.6 L 0.7 L Seg Neutrophils % 84.0 H 79.0 H Seg Neutrophils # Abs Lymphs (Manual) D-Dimer POC ABG pH POC ABG pCO2 POC ABG pO2 Sodium 133 L Potassium Chloride 92.7 L Carbon Dioxide BUN 22 H Creatinine 0.5 L Glucose POC Glucose Calcium 8.1 L AST ALT Lactate Dehydrogenase C-Reactive Protein Total Protein Albumin Triglycerides Lymph Enumerat CD4/CD8 % CD3 Cells Absolute CD3 Count % CD4 Cells Absolute CD4 Count % CD8 Cells Absolute CD8 Count % CD19 Cells Absolute CD19 Count HIV-1 RNA PCR copies/ml HIV-1 RNA (PCR) log HIV-1 Genotyping Miscellaneous Test Crossmatch 08/03/18 08/04/18 08/05/18 06:30 17:13 08:03 WBC RBC 2.77 L Hgb 8.8 L Hct 25.8 L MCHC RDW 20.4 H Plt Count Lymph % (Auto) [place] % (Auto) Eos % (Auto) Lymph # 0.9 L Seg Neutrophils % 76.6 H Seg Neutrophils # Abs Lymphs (Manual) D-Dimer POC ABG pH POC ABG pCO2 POC ABG pO2 Sodium 131 L Potassium Chloride 92.0 L Carbon Dioxide BUN Creatinine 0.3 L Glucose POC Glucose 120 H Calcium 8.0 L AST ALT Lactate Dehydrogenase C-Reactive Protein Total Protein 6.0 L Albumin 2.4 L Triglycerides Lymph Enumerat CD4/CD8 % CD3 Cells Absolute CD3 Count % CD4 Cells Absolute CD4 Count % CD8 Cells Absolute CD8 Count % CD19 Cells Absolute CD19 Count HIV-1 RNA PCR copies/ml HIV-1 RNA (PCR) log HIV-1 Genotyping Miscellaneous Test Crossmatch 08/05/18 08/06/18 08/06/18 08:03 07:38 22:01 WBC RBC Hgb Hct MCHC RDW Plt Count Lymph % (Auto) [place] % (Auto) Eos % (Auto) Lymph # Seg Neutrophils % Seg Neutrophils # Abs Lymphs (Manual) D-Dimer POC ABG pH 7.507 H POC ABG pCO2 33.6 L POC ABG pO2 113 H Sodium 132 L 131 L Potassium 3.5 L Chloride 93.0 L 92.4 L Carbon Dioxide BUN Creatinine 0.3 L 0.4 L Glucose POC Glucose Calcium 8.0 L 8.1 L AST ALT Lactate Dehydrogenase C-Reactive Protein Total Protein Albumin Triglycerides Lymph Enumerat CD4/CD8 % CD3 Cells Absolute CD3 Count % CD4 Cells Absolute CD4 Count % CD8 Cells Absolute CD8 Count % CD19 Cells Absolute CD19 Count HIV-1 RNA PCR copies/ml HIV-1 RNA (PCR) log HIV-1 Genotyping Miscellaneous Test Crossmatch 08/07/18 08/07/18 08/08/18 07:57 07:57 04:38 WBC 4.1 L RBC 3.00 L Hgb 9.4 L Hct 27.9 L MCHC RDW 19.2 H Plt Count Lymph % (Auto) [place] % (Auto) Eos % (Auto) Lymph # Seg Neutrophils % Seg Neutrophils # Abs Lymphs (Manual) D-Dimer POC ABG pH POC ABG pCO2 POC ABG pO2 Sodium 133 L Potassium 3.2 L Chloride 95.9 L Carbon Dioxide BUN Creatinine 0.4 L 0.4 L Glucose 104 H POC Glucose Calcium AST ALT Lactate Dehydrogenase C-Reactive Protein Total Protein Albumin 2.6 L Triglycerides Lymph Enumerat CD4/CD8 % CD3 Cells Absolute CD3 Count % CD4 Cells Absolute CD4 Count % CD8 Cells Absolute CD8 Count % CD19 Cells Absolute CD19 Count HIV-1 RNA PCR copies/ml HIV-1 RNA (PCR) log HIV-1 Genotyping Miscellaneous Test Crossmatch 08/11/18 08/11/18 08/12/18 06:55 06:55 00:00 WBC 3.3 L RBC 2.91 L Hgb 9.2 L Hct 26.9 L MCHC RDW 18.9 H Plt Count 503 H Lymph % (Auto) [place] % (Auto) Eos % (Auto) 7.8 H Lymph # 0.9 L Seg Neutrophils % Seg Neutrophils # Abs Lymphs (Manual) D-Dimer POC ABG pH POC ABG pCO2 POC ABG pO2 Sodium Potassium Chloride 108.8 H Carbon Dioxide BUN Creatinine 0.4 L Glucose POC Glucose 106 H Calcium 8.1 L AST ALT Lactate Dehydrogenase C-Reactive Protein Total Protein Albumin Triglycerides Lymph Enumerat CD4/CD8 % CD3 Cells Absolute CD3 Count % CD4 Cells Absolute CD4 Count % CD8 Cells Absolute CD8 Count % CD19 Cells Absolute CD19 Count HIV-1 RNA PCR copies/ml HIV-1 RNA (PCR) log HIV-1 Genotyping Miscellaneous Test Crossmatch 08/12/18 08/12/18 08/12/18 04:38 04:38 18:13 WBC 3.0 L RBC 3.04 L Hgb 9.5 L Hct 28.4 L MCHC RDW 19.0 H Plt Count 448 H Lymph % (Auto) [place] % (Auto) Eos % (Auto) 7.1 H Lymph # 0.9 L Seg Neutrophils % Seg Neutrophils # 1.6 L Abs Lymphs (Manual) D-Dimer POC ABG pH POC ABG pCO2 POC ABG pO2 Sodium Potassium 3.4 L Chloride 110.1 H Carbon Dioxide 18 L BUN Creatinine 0.4 L Glucose POC Glucose 108 H Calcium 8.1 L AST 41 H ALT Lactate Dehydrogenase C-Reactive Protein Total Protein 5.8 L Albumin 2.2 L Triglycerides Lymph Enumerat CD4/CD8 % CD3 Cells Absolute CD3 Count % CD4 Cells Absolute CD4 Count % CD8 Cells Absolute CD8 Count % CD19 Cells Absolute CD19 Count HIV-1 RNA PCR copies/ml HIV-1 RNA (PCR) log HIV-1 Genotyping Miscellaneous Test Crossmatch 08/13/18 08/13/18 05:58 05:58 WBC 2.9 L RBC 2.71 L Hgb 8.6 L Hct 25.1 L MCHC RDW 19.1 H Plt Count Lymph % (Auto) [place] % (Auto) 9.8 H Eos % (Auto) 4.8 H Lymph # 0.9 L Seg Neutrophils % Seg Neutrophils # 1.6 L Abs Lymphs (Manual) D-Dimer POC ABG pH POC ABG pCO2 POC ABG pO2 Sodium Potassium Chloride 111.1 H Carbon Dioxide 19 L BUN Creatinine 0.4 L Glucose POC Glucose Calcium 8.0 L AST ALT Lactate Dehydrogenase C-Reactive Protein Total Protein 5.3 L Albumin 2.4 L Triglycerides Lymph Enumerat CD4/CD8 % CD3 Cells Absolute CD3 Count % CD4 Cells Absolute CD4 Count % CD8 Cells Absolute CD8 Count % CD19 Cells Absolute CD19 Count HIV-1 RNA PCR copies/ml HIV-1 RNA (PCR) log HIV-1 Genotyping Miscellaneous Test Crossmatch Allied health notes reviewed: nursing
--- NOTE | 2018-08-16 08:39 | Progress Note ---
Assessment and Plan Cultures: Blood culture 07/11/2018 no growth today. Cryptococcal antigen : negative MRSA PCR: positive Blood culture 07/15/2018: in progress Urine culture 07/15/2018: no growth in 24 hours Sputum culture 07/15/18: MRSA, Jannette CMV PCR 07/15/2018 33,392 copies 08/06/2018 CMV PCR: 363 08/23/2018 Crypto and Giardia AG- Positive Assessment: 37 y/o male currently in half-way with history of HIV infection of unknown duration, noncompliant with antiretroviral medication, severe malnutrition; admitted on 07/11/2018, brought by law enforcement, due to 2-week history of shortness of breath, generalized weakness and productive cough: 1) Sepsis with new septic shock: Resolved. Etiology most likely pneumonia. 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 CMV +/- MRSA. Chest CT showed bilateral patchy and somewhat confluent alveolar infiltrates and interstitial infiltrates. No effusions. Sputum culture 07/15 grew MRSA and Jannette. PJP DFA was also positive. Completed linezolid x 10 days until 07/23. S/p 21 days bactrim IV until 07/31/2018. Now on prophylaxis with Bactrim. 3) HIV with AIDS: Patient had not taken his HIV medication for at least 6 months prior due to his incarceration. On admission he reported 40lbs unintentional weight loss for 2 months and intermittent loose stools over the past 2 weeks. VL 523,000/ CD4=7. Pneumocytosis Jirovecii positive. RPR nonreactive. Hepatitis panel negative. HIV Genotype with wild type, no resistance associated mutations. Was started on HIV therapy: emtricitabine, tenofovir and dolutegravir (started on 08/07/2018). Now on Bactrim prophylaxis. Azithromycin prophylaxis is not needed since patient is now on ART. 4) Diarrhea: continuing. Giardia, Cryptosporidium Stool Ag positive - Continue Flagyl for total 7 days. 5) Acute respiratory failure: not better, from pneumonia. improving s/p trach/PEG placement 08/01. Trach capped. 6) Anemia: s/p transfusion 7) Facial rash: ? seborrheic dermatitis. improving. 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 Completed 21 days of Valcyte. Additional therapy not needed since patient is now on ARVs and there is no evidence of end organ damage from CMV. 9) Sacral wound: Excisional debridement of stage 3 sacral wound 08/15/18.. Dr. Walters following. Recommendations: - continue bactrim DS 1 tab q day for PJP prophylaxis, will need to continue upon discharge - continue HIV therapy: emtricitabine, tenofovir and dolutegravir (started on 08/07/2018). [facility] need [facility], D/W CM. - contact isolation for MRSA - continue Flagyl 500mg every 8 hours, D2 of D7 [facility] M: [phone] O:[phone] Subjective Date of service: 08/16/18 Principal diagnosis: Acute hypoxemic resp failure; Bilateral pneumonia (PJP); HIV/AIDS Interval history: Patient seen and examined. Awake, alert, no acute distress reported. + numbness plantar aspect of the foot. No fevers. Objective - Exam Narrative Exam: Constitutional: Alert, cooperative. No acute distress. Cachexia + Head, Ears, Nose: Normocephalic, atraumatic. External ears, nose normal Eyes: Conjunctivae/corneas clear. No icterus. No ptosis. Neck: trach capped Oral: mucosa moist, no ulcers, no thrush Cardiovascular: S1, S2 normal. Respiratory: clear bilaterally. no wheeze GI: Soft, non-tender; bowel sounds normal. No peritoneal signs. G tube + Musculoskeletal: No pedal edema, no cyanosis. +numbness reported plantar aspect of the foot Skin: Stage 3 sacral wound. s/p excisional debridement today. Hem/Lymphatic: No palpable cervical or supraclavicular nodes. No lymphangitis Psych: no agitation Neurological: Awake, alert, follows commands - Constitutional Vitals: Vital Signs Temp Pulse Resp BP Pulse Ox 98.4 F 101 H 20 99/61 96 08/15/18 22:30 08/15/18 22:30 08/15/18 22:30 08/15/18 22:30 08/15/18 22:30 Temperature -Last 24 Hours Temperature 98.4 F Temperature 97.9 F Temperature 97.6 F Temperature 98.2 F Temperature 96.3 F - Labs CBC & Chem 7: 08/13/18 05:58 08/13/18 05:58
[2018-08-16] MEDS: HEPARIN SUB-Q SCH ×3 (10:00→21:04)
--- NOTE | 2018-08-16 11:35 | Progress Note ---
Assessment and Plan Assessment and plan: Patient is a 37 yo man with a history of HIV and tobacco dependency who presented to [facility] ED on 07/11/[address] [facility] [place] [place] per patient[place] to [facility] ED with sob and cough. Pt admitted to IMCU and initiated on Pneumonia protocol. Patient required emergent intubation following admission to the IMCU. He underwent trach and PEG on 08/01/18 after prolonged Mechanical Ventilation. * CT head: No CT evidence of acute intracranial abnormality. Pansinus disease * CTA CHEST: IMPRESSION: No pulmonary embolus. Bilateral patchy and somewhat confluent alveolar infiltrates and interstitial infiltrates. Noeffusions. Mild cardiomegaly. Runnings likely reflect a viral pneumonia or inhalational process * CXR IMPRESSION: Heart size is normal.There are bilateral lower lobe infiltrates. These are slightly worse than the prior study.. There is no pleural effusion or pneumothorax. Endotracheal tube is in the mid trachea. NG tube is in the stomach. There is a right-sided PICC line. The tip is in the superior vena cava.. Date of procedure: 08/15/18 Pre-op diagnosis: unstageable sacral wound Post-op diagnosis: same Findings: Stage 3 sacral wound measurin.5cm x 3.5 x 0.25 cm wound Procedure: excisional debridement of sacral wound Anesthesia: MAC, local Surgeon: CALEB MARCH Estimated blood loss: minimal Pathology: none Condition: stable Disposition: PACU Cultures: Blood culture 07/11/2018 no growth today. 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 Severe Protein Malnutrition, BMI 15.4: Cut Out Operator to follow, has PEG tube AIDS with history of noncompliance: continue HIV therapy with emtricitabine, tenofovir and dolutegravir (started on 08/07/2018). Will need to follow up with HIV clinic at [facility]. AOCD: monitor cbc closely Elevated d/DIMER- NO PE noted on CTA chest Disposition: continue inpatient care, [facility] dismissed charges, now needs placement, hopefully he can live with his sister. History Interval history: Patient was seen and examined. Follow-up on current diagnosis of respiratory failure, now with Trach, off O2. No overnight events reported to me. Imaging, nursing note, chart, labs and old chart reviewed. No new c/o per patient Hospitalist Physical - Physical exam Narrative exam: Gen: thin, chronic ill appearing, bmi 15.4, trach in place, bmi 15.4 HEENT: NCAT, EOMI, PERRL, trach in place Neck: supple, no JVD CVS/Heart: RRR, normal S1S2, pulses present bilaterally Chest/Lungs: CTA bilateral, Symmetrical chest expansion, good air entry bilaterally GI/Abdomen: soft, PEG in place, good bowel sounds, no guarding or rebound /Bladder: no suprapubic tenderness, Extermity/Skin: mmm MSK: moving all ext Neuro: No new focal deficits Psych: calm - Constitutional Vitals: Temp Pulse Resp BP Pulse Ox 98.4 F 101 H 20 99/61 96 08/15/18 22:30 08/15/18 22:30 08/15/18 22:30 08/15/18 22:30 08/15/18 22:30 General appearance: Present: no acute distress, cachectic, disheveled, other (tracheostomy) Results - Labs CBC & Chem 7: 08/13/18 05:58 08/13/18 05:58 Labs: Laboratory Last Values WBC 2.9 K/mm3 (4.5-11.0) L 08/13/18 05:58 RBC 2.71 M/mm3 (3.65-5.03) L 08/13/18 05:58 Hgb 8.6 gm/dl (11.8-15.2) L 08/13/18 05:58 Hct 25.1 % (35.5-45.6) L 08/13/18 05:58 MCV 93 fl (84-94) 08/13/18 05:58 MCH 32 pg (28-32) 08/13/18 05:58 MCHC 34 % (32-34) 08/13/18 05:58 RDW 19.1 % (13.2-15.2) H 08/13/18 05:58 Plt Count 428 K/mm3 (140-440) 08/13/18 05:58 Lymph % (Auto) 31.0 % (13.4-35.0) 08/13/18 05:58 [place] % (Auto) 9.8 % (0.0-7.3) H 08/13/18 05:58 Eos % (Auto) 4.8 % (0.0-4.3) H 08/13/18 05:58 Baso % (Auto) 0.9 % (0.0-1.8) 08/13/18 05:58 Lymph # 0.9 K/mm3 (1.2-5.4) L 08/13/18 05:58 [place] # 0.3 K/mm3 (0.0-0.8) 08/13/18 05:58 Eos # 0.1 K/mm3 (0.0-0.4) 08/13/18 05:58 Baso # 0.0 K/mm3 (0.0-0.1) 08/13/18 05:58 Add Manual Diff Complete 07/25/18 09:30 Total Counted 100 07/25/18 09:30 Seg Neutrophils % 53.5 % (40.0-70.0) 08/13/18 05:58 Seg Neuts % (Manual) 63.0 % (40.0-70.0) 07/25/18 09:30 0 % 07/25/18 09:30 35.0 % (13.4-35.0) 07/25/18 09:30 Reactive Lymphs % (Man) 0 % 07/25/18 09:30 1.0 % (0.0-7.3) 07/25/18 09:30 0 % (0.0-4.3) 07/25/18 09:30 0 % (0.0-1.8) 07/25/18 09:30 0 % 07/25/18 09:30 1.0 % 07/25/18 09:30 0 % 07/25/18 09:30 0 % 07/25/18 09:30 Nucleated RBC % Not Reportable 07/25/18 09:30 Seg Neutrophils # 1.6 K/mm3 (1.8-7.7) L 08/13/18 05:58 Seg Neutrophils # Man 4.9 K/mm3 (1.8-7.7) 07/25/18 09:30 Band Neutrophils # 0.0 K/mm3 07/25/18 09:30 Abs Lymphs (Manual) 220 cells/uL (850-3900) L 07/12/18 19:29 2.7 K/mm3 (1.2-5.4) 07/25/18 09:30 Abs React Lymphs (Man) 0.0 K/mm3 07/25/18 09:30 0.1 K/mm3 (0.0-0.8) 07/25/18 09:30 0.0 K/mm3 (0.0-0.4) 07/25/18 09:30 0.0 K/mm3 (0.0-0.1) 07/25/18 09:30 0.0 K/mm3 07/25/18 09:30 0.1 K/mm3 07/25/18 09:30 0.0 K/mm3 07/25/18 09:30 Blast Cells # 0.0 K/mm3 07/25/18 09:30 WBC Morphology Not Reportable 07/25/18 09:30 Hypersegmented Neuts Not Reportable 07/25/18 09:30 Hyposegmented Neuts Not Reportable 07/25/18 09:30 Hypogranular Neuts Not Reportable 07/25/18 09:30 Not Reportable 07/25/18 09:30 Not Reportable 07/25/18 09:30 Not Reportable 07/25/18 09:30 Not Reportable 07/25/18 09:30 Not Reportable 07/25/18 09:30 Not Reportable 07/25/18 09:30 Consistent w auto 07/25/18 09:30 Not Reportable 07/25/18 09:30 Plt Clumps, EDTA Not Reportable 07/25/18 09:30 Not Reportable 07/25/18 09:30 Not Reportable 07/25/18 09:30 Not Reportable 07/25/18 09:30 Plt Morphology Comment Not Reportable 07/25/18 09:30 RBC Morphology Not Reportable 07/25/18 09:30 Dimorphic RBCs Not Reportable 07/25/18 09:30 Few 07/25/18 09:30 Not Reportable 07/25/18 09:30 Not Reportable 07/25/18 09:30 1+ 07/25/18 09:30 Not Reportable 07/25/18 09:30 Few 07/25/18 09:30 Not Reportable 07/25/18 09:30 Not Reportable 07/25/18 09:30 Not Reportable 07/25/18 09:30 Rare 07/25/18 09:30 Not Reportable 07/25/18 09:30 Not Reportable 07/25/18 09:30 Not Reportable 07/25/18 09:30 Not Reportable 07/25/18 09:30 Not Reportable 07/25/18 09:30 Not Reportable 07/25/18 09:30 Not Reportable 07/25/18 09:30 Not Reportable 07/25/18 09:30 Not Reportable 07/25/18 09:30 Acanthocytes (Spur) Not Reportable 07/25/18 09:30 Rouleaux Not Reportable 07/25/18 09:30 Not Reportable 07/25/18 09:30 Not Reportable 07/25/18 09:30 Not Reportable 07/25/18 09:30 Not Reportable 07/25/18 09:30 Hem Pathologist Commnt No 07/25/18 09:30 1298.70 ng/mlDDU (0-234) H 07/11/18 15:04 POC ABG pH 7.507 (7.35-7.45) H 08/06/18 22:01 POC ABG pCO2 33.6 (35-45) L 08/06/18 22:01 POC ABG pO2 113 (80-105) H 08/06/18 22:01 POC ABG HCO3 26.6 (22-26 mml/L) 08/06/18 22:01 POC ABG Total CO2 28 (23-27mmol/L) 08/06/18 22:01 POC ABG O2 Sat 99 08/06/18 22:01 POC ABG Base Excess 4 ((-2) - (+3)mmol/L) 08/06/18 22:01 35 % 08/06/18 22:01 Sodium 140 mmol/L (137-145) 08/13/18 05:58 Potassium 3.6 mmol/L (3.6-5.0) 08/13/18 05:58 Chloride 111.1 mmol/L (98-107) H 08/13/18 05:58 Carbon Dioxide 19 mmol/L (22-30) L 08/13/18 05:58 14 mmol/L 08/13/18 05:58 BUN 11 mg/dL (9-20) 08/13/18 05:58 0.4 mg/dL (0.8-1.5) L 08/13/18 05:58 Estimated GFR > 60 ml/min 08/13/18 05:58 28 % 08/13/18 05:58 Glucose 91 mg/dL (75-100) 08/13/18 05:58 POC Glucose 92 (70-105) 08/12/18 23:56 Lactic Acid 1.80 mmol/L (0.7-2.0) 07/11/18 21:01 Calcium 8.0 mg/dL (8.4-10.2) L 08/13/18 05:58 Magnesium 1.70 mg/dL (1.7-2.3) 08/07/18 07:57 < 0.20 mg/dL (0.1-1.2) 08/13/18 05:58 AST 35 units/L (5-40) 08/13/18 05:58 ALT 49 units/L (7-56) 08/13/18 05:58 76 units/L (35-129) 08/13/18 05:58 731 units/L (91-180) H 07/12/18 19:29 < 0.010 ng/mL (0.00-0.029) 07/11/18 15:04 2.70 mg/dL (0.00-1.30) H 07/15/18 14:09 NT-Pro-B Natriuret Pep 249.7 pg/mL (0-450) 07/11/18 15:04 5.3 g/dL (6.3-8.2) L 08/13/18 05:58 2.4 g/dL (3.9-5) L 08/13/18 05:58 0.8 % 08/13/18 05:58 Triglycerides 209 mg/dL (2-149) H 07/28/18 05:20 Yellow (Yellow) 07/15/18 14:14 Clear (Clear) 07/15/18 14:14 6.0 (5.0-7.0) 07/15/18 14:14 Ur Specific [place] 1.015 (1.003-1.030) 07/15/18 14:14 30 mg/dl mg/dL (Negative) 07/15/18 14:14 Neg mg/dL (Negative) 07/15/18 14:14 Neg mg/dL (Negative) 07/15/18 14:14 Neg (Negative) 07/15/18 14:14 Neg (Negative) 07/15/18 14:14 Neg (Negative) 07/15/18 14:14 < 2.0 mg/dL (<2.0) 07/15/18 14:14 Ur Leukocyte Esterase Neg (Negative) 07/15/18 14:14 2.0 /HPF (0.0-6.0) 07/15/18 14:14 6.0 /HPF (0.0-6.0) 07/15/18 14:14 21 mmol/L 07/19/18 14:27 Lymph Enumerat CD4/CD8 0.04 (0.86-5.00) L 07/12/18 19:29 % CD3 Cells 88 % (57-85) H 07/12/18 19:29 194 cells/uL (840-3060) L 07/12/18 19:29 % CD4 Cells 3 % (30-61) L 07/12/18 19:29 7 cells/uL (490-1740) L 07/12/18 19:29 % CD8 Cells 75 % (12-42) H 07/12/18 19:29 177 cells/uL (180-1170) L 07/12/18 19:29 % CD19 Cells 4 % (6-29) L 07/12/18 19:29 9 cells/uL (110-660) L 07/12/18 19:29 RPR Nonreactive (Nonreactive) 07/12/18 23:38 CMV DNA PCR log copy supervisor/mL See scanned report 08/06/18 07:38 Hepatitis A IgM Ab Non-reactive (NonReactive) 07/12/18 23:38 Hep Bs Antigen Non-reactive (Negative) 07/12/18 23:38 Hep B Core IgM Ab Non-reactive (NonReactive) 07/12/18 23:38 Non-reactive (NonReactive) 07/12/18 23:38 HIV-1 RNA PCR copies/ml [id number] Copies/mL H 07/12/18 19:29 5.72 Log cps/mL H 07/12/18 19:29 Detected H 07/25/18 17:05 Flexitest 1 H 07/16/18 07:21 Blood Type O POSITIVE 07/24/18 07:50 Antibody Screen Positive 07/24/18 07:50 Prewarmed Antibody Srcn Positive 07/18/18 03:10 Antibody Identification Anti-Adrianna 07/24/18 07:50 Direct Antiglob Test Negative 07/24/18 07:50 NIKUNJ, Poly Interpret Negative 07/24/18 07:50 Crossmatch See Detail 07/24/18 07:50 Active Medications - Current Medications Current Medications: Generic Name Dose Route Start Last Admin Trade Name Freq PRN Reason Stop Dose Admin Acetaminophen 650 mg 07/12/18 18:07 08/16/18 05:48 Tylenol FEEDTUBE 650 mg Q6H PRN Administration Non Cardiac Pain or Temp>100.5 Albuterol 2.5 mg 07/11/18 17:16 07/26/18 12:07 Proventil IH 2.5 mg Q3HRT PRN Administration Shortness Of Breath Lipase/Protease/Amylase 1 each 08/09/18 17:59 Pancreaze 10,500 Unit FEEDTUBE PRN PRN For Clogged Feeding Tube Bismuth Subsalicylate 262 mg 08/12/18 15:00 Pepto Bismol PO Q6H PRN Diarrhea Doxazosin Mesylate 2 mg 07/18/18 12:00 08/15/18 16:30 Cardura PO 2 mg QDAY HE Administration Emtricitabine 200 mg 08/07/18 10:00 08/15/18 16:41 Emtriva PO 200 mg QDAY HE Administration Famotidine 20 mg 07/16/18 22:00 08/15/18 21:58 Pepcid PO 20 mg BID HE Administration Guaifenesin 10 ml 08/14/18 22:26 08/15/18 16:38 Guaifenesin Dm Syrup PO 10 ml Q4H PRN Administration Cough Heparin Sodium (Porcine) 5,000 unit 08/03/18 22:00 08/15/18 21:57 Heparin SUB-Q 5,000 unit TID HE Administration Hydrophilic Ointment 1 applic 07/12/18 13:30 Vaseline Lip Therapy TP Q2HR PRN Dry Lips Sodium Chloride 1,000 mls @ 100 mls/hr 08/08/18 22:00 08/15/18 07:18 Nacl 0.9% 1000 Ml IV 100 mls/hr DIRECT HE Administration Metronidazole 500 mg 08/15/18 12:00 08/16/18 05:49 Flagyl PO 500 mg Q8HR HE Administration Protocol Midazolam HCl 2 mg 07/16/18 13:06 07/26/18 17:42 Versed IV 2 mg Q2H PRN Administration AGITATION Multi-Ingred Cream/Lotion/Oil/Oint 1 applic 07/12/18 13:30 Artificial Tears Ophth Oint OU Q4HR PRN Dry Eye(s) Ondansetron HCl 4 mg 08/12/18 14:05 Zofran IV QID PRN Nausea And Vomiting Ondansetron HCl 4 mg 08/15/18 12:24 Zofran IV ONCE PRN Nausea And Vomiting Quetiapine Fumarate 200 mg 08/07/18 22:00 08/15/18 21:58 Seroquel PO 200 mg QHS HE Administration Simple Syrup 15 ml 08/09/18 17:59 Simple Syrup FEEDTUBE PRN PRN Hypoglycemia Simple Syrup 30 ml 08/09/18 17:59 Simple Syrup FEEDTUBE PRN PRN Hypoglycemia Sodium Bicarbonate 325 mg 08/09/18 17:59 Sodium Bicarbonate FEEDTUBE PRN PRN For Clogged Feeding Tube Sodium Chloride 10 ml 07/11/18 22:00 08/15/18 21:59 Sodium Chloride Flush Syringe 10 Ml IV 10 ml BID HE Administration Sodium Chloride 10 ml 07/11/18 17:16 07/18/18 09:00 Sodium Chloride Flush Syringe 10 Ml IV 10 ml PRN PRN Administration LINE FLUSH Tenofovir Disoproxil Fumarate 300 mg 08/07/18 10:00 08/15/18 16:41 Viread PO 300 mg QDAY HE Administration Trimethoprim/Sulfamethoxazole 160 mg 08/01/18 10:00 08/15/18 16:40 Bactrim 200-40 Mg/5 Ml PO 160 mg DAILY HE Administration Nutrition/Malnutrition Assess - Dietary Evaluation Nutrition/Malnutrition Findings: Nutrition Notes Start: 07/12/18 09:38 Freq: Status: Active Protocol: Document 08/14/18 16:11 RM (Rec: 08/14/18 16:15 RM [id number]) Nutrition Notes Initial or Follow up Reassessment Current Diagnosis Sepsis,Respiratory Failure Other Pertinent Diagnosis Bilat pneu, HIV/AIDS, Diarrhea ,PEG Current Diet Regular Labs/Tests Reviewed Pertinent Medications Reviewed Height 5 ft 11 in Weight 55 kg [place] Body Weight (kg) 78.18 BMI 16.9 Subjective/Other Information Regular diet recommended per progress note 08/13/18. Pt stated that his appetite is good and that he eats most of his meals. Percent of energy/protein needs met: 66%/97% Burn Absent Trauma Absent #2 Nutrition Diagnosis Inadequate oral intake As Evidenced by Signs and Symptoms pt meeting 66% of calorie and 97% of protein needs Diagnosis Progress(for reassessment Improved documentation) #1 Nutrition Diagnosis Malnutrition Diagnosis Progress(for reassessment Continues documentation) Is patient on ventilator? No Is Patient Ambulatory and/or Out of Bed No REE-([place]-confined to bed) 1805.352 Kcal/Kg value to use for calculation 48 Approximate Energy Requirements Using 2640 kcal/Kg Calculation Used for Recommendations Kcal/kg Additional Notes Pro needs 1.2-1.5 g/k-83g /day Fluid needs 1ml/kcal Nutrition Intervention Change Diet Order: Continue curent Add Supplement/Snack (indicate name/kcal Ensure Enlive 1 daily /protein ) Provides kCal: 350 Provides Protein (gm) 20 Goal #1 Meet at least 75% of calorie and protein needs via PO and ONS intakes Anticipated Discharge Needs: Regular diet Follow-Up By: 08/17/18 Additional Comments Follow for PO and ONS intakes
[2018-08-16] MEDS: BACTRIM 200-40 MG/5 ML PO SCH (11:52)
[2018-08-16] MEDS: PEPCID PO SCH ×2 (11:54→21:04)
[2018-08-16] MEDS: VIREAD PO SCH (11:55)
[2018-08-16] MEDS: CARDURA PO SCH (11:56)
[2018-08-16] MEDS: EMTRIVA PO SCH (11:57)
[2018-08-16] MEDS: SODIUM CHLORIDE FLUSH SYRINGE 10 ML IV SCH (11:59)
[2018-08-16] MEDS: TIVICAY PO SCH (11:59)
[2018-08-17 01:24] LABS: Basophils % (Auto) 0.7 % (0.0-1.8); Eosinophils # (Auto) 0.2 K/mm3 (0.0-0.4); Eosinophils % (Auto) 4.4 % (0.0-4.3); Hematocrit 25.4 % (35.5-45.6); Hemoglobin 8.8 gm/dl (11.8-15.2); Lymphocytes # (Auto) 1.2 K/mm3 (1.2-5.4); Lymphocytes % (Auto) 31.5 % (13.4-35.0); Mean Corpuscular HGB Conc 34 % (32-34); Mean Corpuscular Volume 92 fl (84-94); Monocytes # (Auto) 0.5 K/mm3 (0.0-0.8); Monocytes % (Auto) 13.5 % (0.0-7.3); Platelet Count 480 K/mm3 (140-440); Red Blood Count 2.75 M/mm3 (3.65-5.03)
[2018-08-17] MEDS: NACL 0.9% 1000 ML 1,000 ML IV SCH ×2 (01:37→18:38)
[2018-08-17] MEDS: SODIUM CHLORIDE FLUSH SYRINGE 10 ML IV SCH ×2 (01:38→12:23)
[2018-08-17 02:09] LABS: Red Cell Distribution Width 20.3 % (13.2-15.2)
[2018-08-17] MEDS: TYLENOL FEEDTUBE PRN (02:54)
[2018-08-17] MEDS: FLAGYL PO SCH ×2 (05:19→15:03)
--- NOTE | 2018-08-17 07:43 | Progress Note ---
Assessment and Plan Acute Hypoxic respiratory failure s/p mechanical ventilation s/p Tracheostomy-decanulated Severe sepsis with septic shock, resolved Severe ARDS , resolved Sepsis present on admission with grater than 2 SOFA criteria PJP (pneumocystis jiroveci pneumonia) Diarrhea-resolved Hyponatremia-resolved Hyperkalemia- resolved Moderate Protein Malnutrition AIDS ANEMIA Elevated d/DIMER- NO PE noted Nicotine dependance/Tobacco use disorder Sacral decubitus s/p debridement Tracheal stoma care Continue all supportive care PT/OT-increase activity Wound care, off loading Smoking cessation counselling done at the bedside Continue all care as documented below Discharge planning -Transfuse to keep HgB>7g/dL as indicated - Antibiotics, anti-infectives per ID service. -ART per ID service, Antibiotic prophylaxis for OI per ID - Continue bronchodilators with pulmonary hygiene per RT - Monitor renal indices closely - Avoid nephrotoxic agents - Tube feedings -VTE prophylaxis - Accuchecks with glycemic control. Target glucose of 140-180 mg/dL - Maintenance of sleep -wake cycle - Influenza and pneumonia vaccination per protocol ..care plan discussed at length with patient, updated him and asked all his qu estions Subjective Date of service: 08/17/18 Principal diagnosis: Acute hypoxemic resp failure; Bilateral pneumonia (PJP); HIV/AIDS Interval history: Patient is seen today for: Acute hypoxemic respiratory failure, on mechanical ventilatory support; Bilateral pneumonia, high suspicion for Pneumocystis jiroveci pneumonia; Human immunodeficiency virus/acquired immunodeficiency syndrome,noncompliant with therapy; Hyponatremia; Severe protein calorie malnutrition. Seen and examined at bedside; 24-hour events reviewed;Vitals,labs, medications, chart and imaging reviewed; nursing and respiratory care staff consulted; no adverse overnight events reported to me; resting peacefully in bed. Awake and alert, No fevers, no vomiting, no diarrhea. Denies any chest pain, no shortness of breath, tolerating tube feedings; s/p trachesotomy, s/p PEGS/p sacral decubitus debridement Decanulated yesterday. Doing well. Objective Vital Signs - 12hr 08/16/18 08/17/18 08/17/18 22:00 00:02 06:16 Temperature 98.3 F 98.0 F Pulse Rate 88 96 H 91 H Respiratory 16 16 Rate Blood Pressure 104/59 100/65 O2 Sat by Pulse 95 96 Oximetry Constitutional: no acute distress, alert, other (young AAM; normocephalic and atraumatic) Eyes: non-icteric ENT: oropharynx moist, other (mallampati 2) Neck: supple, no lymphadenopathy, no JVD, other (+ tracheal stoma patent, with exuberant healing tissue ) Effort: normal Ascultation: Bilateral: diminished breath sounds, rales, rhonchi Percussion: Bilateral: not dull Cardiovascular: regular rate and rhythm, other (S1,S2, no murmurs, gallops or rubs) Gastrointestinal: normoactive bowel sounds, soft, non-tender, non-distended Integumentary: normal Extremities: no cyanosis, no edema, pulses normal, no ischemia or petechiae Neurologic: normal mental status, non-focal exam, pupils equal and round, CN II- XII normal, motor strength normal and Psychiatric: mood appropriate, affect normal CBC and BMP: 08/17/18 00:35 08/13/18 05:58 ABG, PT/INR, D-dimer: ABG POC ABG pH 7.507 (7.35-7.45) H 08/06/18 22:01 POC ABG pCO2 33.6 (35-45) L 08/06/18 22:01 POC ABG pO2 113 (80-105) H 08/06/18 22:01 POC ABG HCO3 26.6 (22-26 mml/L) 08/06/18 22:01 POC ABG Total CO2 28 (23-27mmol/L) 08/06/18 22:01 POC ABG O2 Sat 99 08/06/18 22:01 PT/INR, D-dimer 1298.70 ng/mlDDU (0-234) H 07/11/18 15:04 Abnormal lab findings: Abnormal Labs 07/11/18 07/11/18 07/11/18 14:06 14:06 15:04 WBC RBC 3.30 L Hgb 9.6 L Hct 28.7 L MCHC RDW Plt Count Lymph % (Auto) [place] % (Auto) Eos % (Auto) Lymph # Seg Neutrophils % Seg Neutrophils # Abs Lymphs (Manual) D-Dimer 1298.70 H POC ABG pH POC ABG pCO2 POC ABG pO2 Sodium 132 L Potassium Chloride Carbon Dioxide BUN Creatinine 0.6 L Glucose 103 H POC Glucose Calcium 7.3 L AST ALT Lactate Dehydrogenase C-Reactive Protein Total Protein Albumin 2.1 L Triglycerides Lymph Enumerat CD4/CD8 % CD3 Cells Absolute CD3 Count % CD4 Cells Absolute CD4 Count % CD8 Cells Absolute CD8 Count % CD19 Cells Absolute CD19 Count HIV-1 RNA PCR copies/ml HIV-1 RNA (PCR) log HIV-1 Genotyping Miscellaneous Test Crossmatch 07/11/18 07/11/18 07/12/18 17:36 22:15 00:25 WBC RBC Hgb Hct MCHC RDW Plt Count Lymph % (Auto) [place] % (Auto) Eos % (Auto) Lymph # Seg Neutrophils % Seg Neutrophils # Abs Lymphs (Manual) D-Dimer POC ABG pH 7.289 L POC ABG pCO2 POC ABG pO2 66 L Sodium Potassium Chloride Carbon Dioxide BUN Creatinine Glucose POC Glucose Calcium AST ALT Lactate Dehydrogenase 591 H C-Reactive Protein Total Protein Albumin Triglycerides Lymph Enumerat CD4/CD8 % CD3 Cells Absolute CD3 Count % CD4 Cells Absolute CD4 Count % CD8 Cells Absolute CD8 Count % CD19 Cells Absolute CD19 Count HIV-1 RNA PCR copies/ml HIV-1 RNA (PCR) log HIV-1 Genotyping Miscellaneous Test see below H Crossmatch 07/12/18 07/12/18 07/12/18 00:41 05:37 19:29 WBC RBC Hgb Hct MCHC RDW Plt Count Lymph % (Auto) [place] % (Auto) Eos % (Auto) Lymph # Seg Neutrophils % Seg Neutrophils # Abs Lymphs (Manual) D-Dimer POC ABG pH 7.302 L 7.275 L POC ABG pCO2 47.1 H POC ABG pO2 Sodium Potassium Chloride Carbon Dioxide BUN Creatinine Glucose POC Glucose Calcium AST ALT Lactate Dehydrogenase 731 H C-Reactive Protein Total Protein Albumin Triglycerides Lymph Enumerat CD4/CD8 % CD3 Cells Absolute CD3 Count % CD4 Cells Absolute CD4 Count % CD8 Cells Absolute CD8 Count % CD19 Cells Absolute CD19 Count HIV-1 RNA PCR copies/ml HIV-1 RNA (PCR) log HIV-1 Genotyping Miscellaneous Test Crossmatch 07/12/18 07/12/18 07/13/18 19:29 19:29 04:03 WBC RBC Hgb Hct MCHC RDW Plt Count Lymph % (Auto) [place] % (Auto) Eos % (Auto) Lymph # Seg Neutrophils % Seg Neutrophils # Abs Lymphs (Manual) 220 L D-Dimer POC ABG pH 7.254 L POC ABG pCO2 49.2 H POC ABG pO2 Sodium Potassium Chloride Carbon Dioxide BUN Creatinine Glucose POC Glucose Calcium AST ALT Lactate Dehydrogenase C-Reactive Protein Total Protein Albumin Triglycerides Lymph Enumerat CD4/CD8 0.04 L % CD3 Cells 88 H Absolute CD3 Count 194 L % CD4 Cells 3 L Absolute CD4 Count 7 L % CD8 Cells 75 H Absolute CD8 Count 177 L % CD19 Cells 4 L Absolute CD19 Count 9 L HIV-1 RNA PCR copies/ml 726764 H HIV-1 RNA (PCR) log 5.72 H HIV-1 Genotyping Miscellaneous Test Crossmatch 07/13/18 07/13/18 07/13/18 05:46 12:23 18:31 WBC RBC Hgb Hct MCHC RDW Plt Count Lymph % (Auto) [place] % (Auto) Eos % (Auto) Lymph # Seg Neutrophils % Seg Neutrophils # Abs Lymphs (Manual) D-Dimer POC ABG pH POC ABG pCO2 POC ABG pO2 Sodium Potassium Chloride Carbon Dioxide BUN Creatinine Glucose POC Glucose 68 L 106 H 112 H Calcium AST ALT Lactate Dehydrogenase C-Reactive Protein Total Protein Albumin Triglycerides Lymph Enumerat CD4/CD8 % CD3 Cells Absolute CD3 Count % CD4 Cells Absolute CD4 Count % CD8 Cells Absolute CD8 Count % CD19 Cells Absolute CD19 Count HIV-1 RNA PCR copies/ml HIV-1 RNA (PCR) log HIV-1 Genotyping Miscellaneous Test Crossmatch 07/14/18 07/14/18 07/14/18 04:19 05:36 05:36 WBC RBC 2.99 L Hgb 8.8 L Hct 25.7 L MCHC RDW 15.5 H Plt Count Lymph % (Auto) [place] % (Auto) Eos % (Auto) Lymph # Seg Neutrophils % Seg Neutrophils # Abs Lymphs (Manual) D-Dimer POC ABG pH 7.337 L POC ABG pCO2 POC ABG pO2 Sodium 135 L Potassium Chloride Carbon Dioxide 21 L BUN Creatinine 0.7 L Glucose 123 H POC Glucose Calcium 8.2 L AST ALT Lactate Dehydrogenase C-Reactive Protein Total Protein Albumin Triglycerides Lymph Enumerat CD4/CD8 % CD3 Cells Absolute CD3 Count % CD4 Cells Absolute CD4 Count % CD8 Cells Absolute CD8 Count % CD19 Cells Absolute CD19 Count HIV-1 RNA PCR copies/ml HIV-1 RNA (PCR) log HIV-1 Genotyping Miscellaneous Test Crossmatch 07/14/18 07/14/18 07/14/18 12:14 14:33 17:18 WBC RBC Hgb Hct MCHC RDW Plt Count Lymph % (Auto) [place] % (Auto) Eos % (Auto) Lymph # Seg Neutrophils % Seg Neutrophils # Abs Lymphs (Manual) D-Dimer POC ABG pH 7.325 L POC ABG pCO2 POC ABG pO2 75 L Sodium Potassium Chloride Carbon Dioxide BUN Creatinine Glucose POC Glucose 174 H 114 H Calcium AST ALT Lactate Dehydrogenase C-Reactive Protein Total Protein Albumin Triglycerides Lymph Enumerat CD4/CD8 % CD3 Cells Absolute CD3 Count % CD4 Cells Absolute CD4 Count % CD8 Cells Absolute CD8 Count % CD19 Cells Absolute CD19 Count HIV-1 RNA PCR copies/ml HIV-1 RNA (PCR) log HIV-1 Genotyping Miscellaneous Test Crossmatch 07/15/18 07/15/18 07/15/18 00:17 12:29 12:29 WBC RBC 2.64 L Hgb 7.5 L Hct 22.9 L MCHC RDW 15.4 H Plt Count Lymph % (Auto) 7.0 L [place] % (Auto) Eos % (Auto) Lymph # 0.4 L Seg Neutrophils % 89.6 H Seg Neutrophils # Abs Lymphs (Manual) D-Dimer POC ABG pH POC ABG pCO2 POC ABG pO2 Sodium Potassium Chloride Carbon Dioxide BUN Creatinine 0.6 L Glucose 124 H POC Glucose 113 H Calcium 7.3 L AST ALT Lactate Dehydrogenase C-Reactive Protein Total Protein Albumin Triglycerides Lymph Enumerat CD4/CD8 % CD3 Cells Absolute CD3 Count % CD4 Cells Absolute CD4 Count % CD8 Cells Absolute CD8 Count % CD19 Cells Absolute CD19 Count HIV-1 RNA PCR copies/ml HIV-1 RNA (PCR) log HIV-1 Genotyping Miscellaneous Test Crossmatch 07/15/18 07/16/18 07/16/18 14:09 04:46 07:21 WBC RBC Hgb Hct MCHC RDW Plt Count Lymph % (Auto) [place] % (Auto) Eos % (Auto) Lymph # Seg Neutrophils % Seg Neutrophils # Abs Lymphs (Manual) D-Dimer POC ABG pH 7.282 L POC ABG pCO2 52.6 H POC ABG pO2 63 L Sodium Potassium Chloride Carbon Dioxide BUN Creatinine Glucose POC Glucose Calcium AST ALT Lactate Dehydrogenase C-Reactive Protein 2.70 H Total Protein Albumin Triglycerides Lymph Enumerat CD4/CD8 % CD3 Cells Absolute CD3 Count % CD4 Cells Absolute CD4 Count % CD8 Cells Absolute CD8 Count % CD19 Cells Absolute CD19 Count HIV-1 RNA PCR copies/ml HIV-1 RNA (PCR) log HIV-1 Genotyping Miscellaneous Test Flexitest 1 H Crossmatch 07/16/18 07/16/18 07/16/18 07:21 07:21 16:16 WBC RBC 2.48 L Hgb 7.2 L Hct 21.5 L MCHC RDW 15.7 H Plt Count Lymph % (Auto) [place] % (Auto) Eos % (Auto) Lymph # Seg Neutrophils % Seg Neutrophils # Abs Lymphs (Manual) D-Dimer POC ABG pH 7.251 L POC ABG pCO2 62.2 H POC ABG pO2 Sodium 136 L Potassium Chloride Carbon Dioxide BUN Creatinine 0.6 L Glucose 118 H POC Glucose Calcium 7.5 L AST ALT Lactate Dehydrogenase C-Reactive Protein Total Protein Albumin Triglycerides Lymph Enumerat CD4/CD8 % CD3 Cells Absolute CD3 Count % CD4 Cells Absolute CD4 Count % CD8 Cells Absolute CD8 Count % CD19 Cells Absolute CD19 Count HIV-1 RNA PCR copies/ml HIV-1 RNA (PCR) log HIV-1 Genotyping Miscellaneous Test Crossmatch 07/17/18 07/18/18 07/18/18 04:01 01:10 03:10 WBC RBC 2.20 L Hgb 6.5 L Hct 19.2 L* MCHC RDW 16.0 H Plt Count Lymph % (Auto) 7.2 L [place] % (Auto) Eos % (Auto) Lymph # 0.5 L Seg Neutrophils % 89.9 H Seg Neutrophils # Abs Lymphs (Manual) D-Dimer POC ABG pH 7.245 L POC ABG pCO2 63.8 H POC ABG pO2 75 L Sodium Potassium Chloride Carbon Dioxide BUN Creatinine Glucose POC Glucose Calcium AST ALT Lactate Dehydrogenase C-Reactive Protein Total Protein Albumin Triglycerides Lymph Enumerat CD4/CD8 % CD3 Cells Absolute CD3 Count % CD4 Cells Absolute CD4 Count % CD8 Cells Absolute CD8 Count % CD19 Cells Absolute CD19 Count HIV-1 RNA PCR copies/ml HIV-1 RNA (PCR) log HIV-1 Genotyping Miscellaneous Test Crossmatch See Detail 07/18/18 07/18/18 07/18/18 04:54 05:02 12:59 WBC RBC Hgb Hct MCHC RDW Plt Count Lymph % (Auto) [place] % (Auto) Eos % (Auto) Lymph # Seg Neutrophils % Seg Neutrophils # Abs Lymphs (Manual) D-Dimer POC ABG pH 7.615 H POC ABG pCO2 32.6 L 48.8 H POC ABG pO2 79 L 118 H Sodium Potassium Chloride Carbon Dioxide BUN Creatinine Glucose POC Glucose 164 H Calcium AST ALT Lactate Dehydrogenase C-Reactive Protein Total Protein Albumin Triglycerides Lymph Enumerat CD4/CD8 % CD3 Cells Absolute CD3 Count % CD4 Cells Absolute CD4 Count % CD8 Cells Absolute CD8 Count % CD19 Cells Absolute CD19 Count HIV-1 RNA PCR copies/ml HIV-1 RNA (PCR) log HIV-1 Genotyping Miscellaneous Test Crossmatch 07/18/18 07/18/18 07/19/18 18:25 20:39 03:53 WBC RBC Hgb Hct MCHC RDW Plt Count Lymph % (Auto) [place] % (Auto) Eos % (Auto) Lymph # Seg Neutrophils % Seg Neutrophils # Abs Lymphs (Manual) D-Dimer POC ABG pH 7.339 L POC ABG pCO2 59.9 H 65.0 H POC ABG pO2 69 L Sodium Potassium Chloride Carbon Dioxide BUN Creatinine Glucose POC Glucose 155 H Calcium AST ALT Lactate Dehydrogenase C-Reactive Protein Total Protein Albumin Triglycerides Lymph Enumerat CD4/CD8 % CD3 Cells Absolute CD3 Count % CD4 Cells Absolute CD4 Count % CD8 Cells Absolute CD8 Count % CD19 Cells Absolute CD19 Count HIV-1 RNA PCR copies/ml HIV-1 RNA (PCR) log HIV-1 Genotyping Miscellaneous Test Crossmatch 07/19/18 07/19/18 07/19/18 08:10 08:10 10:52 WBC RBC 2.51 L Hgb 7.4 L Hct 22.0 L MCHC RDW 15.5 H Plt Count Lymph % (Auto) [place] % (Auto) Eos % (Auto) Lymph # Seg Neutrophils % Seg Neutrophils # Abs Lymphs (Manual) D-Dimer POC ABG pH POC ABG pCO2 POC ABG pO2 Sodium 130 L Potassium Chloride 89.0 L Carbon Dioxide 33 H BUN Creatinine 0.4 L Glucose 150 H POC Glucose 173 H Calcium 7.5 L AST ALT Lactate Dehydrogenase C-Reactive Protein Total Protein Albumin Triglycerides Lymph Enumerat CD4/CD8 % CD3 Cells Absolute CD3 Count % CD4 Cells Absolute CD4 Count % CD8 Cells Absolute CD8 Count % CD19 Cells Absolute CD19 Count HIV-1 RNA PCR copies/ml HIV-1 RNA (PCR) log HIV-1 Genotyping Miscellaneous Test Crossmatch 07/19/18 07/19/18 07/20/18 17:06 23:47 04:37 WBC RBC Hgb Hct MCHC RDW Plt Count Lymph % (Auto) [place] % (Auto) Eos % (Auto) Lymph # Seg Neutrophils % Seg Neutrophils # Abs Lymphs (Manual) D-Dimer POC ABG pH POC ABG pCO2 58.5 H POC ABG pO2 67 L Sodium Potassium Chloride Carbon Dioxide BUN Creatinine Glucose POC Glucose 117 H 114 H Calcium AST ALT Lactate Dehydrogenase C-Reactive Protein Total Protein Albumin Triglycerides Lymph Enumerat CD4/CD8 % CD3 Cells Absolute CD3 Count % CD4 Cells Absolute CD4 Count % CD8 Cells Absolute CD8 Count % CD19 Cells Absolute CD19 Count HIV-1 RNA PCR copies/ml HIV-1 RNA (PCR) log HIV-1 Genotyping Miscellaneous Test Crossmatch 07/20/18 07/20/18 07/21/18 06:20 06:20 04:18 WBC RBC 2.69 L Hgb 7.8 L Hct 23.6 L MCHC RDW 15.5 H Plt Count Lymph % (Auto) [place] % (Auto) Eos % (Auto) Lymph # Seg Neutrophils % Seg Neutrophils # Abs Lymphs (Manual) D-Dimer POC ABG pH 7.456 H POC ABG pCO2 60.4 H POC ABG pO2 64 L Sodium 134 L Potassium Chloride 89.2 L Carbon Dioxide 38 H BUN Creatinine 0.7 L D Glucose 120 H POC Glucose Calcium 7.6 L AST ALT Lactate Dehydrogenase C-Reactive Protein Total Protein Albumin Triglycerides Lymph Enumerat CD4/CD8 % CD3 Cells Absolute CD3 Count % CD4 Cells Absolute CD4 Count % CD8 Cells Absolute CD8 Count % CD19 Cells Absolute CD19 Count HIV-1 RNA PCR copies/ml HIV-1 RNA (PCR) log HIV-1 Genotyping Miscellaneous Test Crossmatch 07/21/18 07/21/18 07/22/18 04:35 04:35 04:16 WBC RBC 2.62 L 2.37 L Hgb 7.7 L 7.0 L Hct 23.1 L 21.1 L MCHC RDW 15.4 H Plt Count Lymph % (Auto) [place] % (Auto) Eos % (Auto) Lymph # Seg Neutrophils % Seg Neutrophils # Abs Lymphs (Manual) D-Dimer POC ABG pH POC ABG pCO2 POC ABG pO2 Sodium 129 L Potassium 5.3 H Chloride 85.3 L Carbon Dioxide 38 H BUN Creatinine 0.4 L Glucose 108 H POC Glucose Calcium 8.0 L AST ALT Lactate Dehydrogenase C-Reactive Protein Total Protein Albumin Triglycerides Lymph Enumerat CD4/CD8 % CD3 Cells Absolute CD3 Count % CD4 Cells Absolute CD4 Count % CD8 Cells Absolute CD8 Count % CD19 Cells Absolute CD19 Count HIV-1 RNA PCR copies/ml HIV-1 RNA (PCR) log HIV-1 Genotyping Miscellaneous Test Crossmatch 07/22/18 07/23/18 07/23/18 04:16 03:25 12:45 WBC RBC Hgb Hct MCHC RDW Plt Count Lymph % (Auto) [place] % (Auto) Eos % (Auto) Lymph # Seg Neutrophils % Seg Neutrophils # Abs Lymphs (Manual) D-Dimer POC ABG pH POC ABG pCO2 69.4 H POC ABG pO2 Sodium 132 L 125 L D Potassium 5.4 H 5.3 H Chloride 87.4 L 80.3 L Carbon Dioxide 38 H 38 H BUN Creatinine 0.4 L 0.3 L Glucose 117 H 124 H POC Glucose Calcium 7.5 L 7.4 L AST ALT Lactate Dehydrogenase C-Reactive Protein Total Protein Albumin Triglycerides Lymph Enumerat CD4/CD8 % CD3 Cells Absolute CD3 Count % CD4 Cells Absolute CD4 Count % CD8 Cells Absolute CD8 Count % CD19 Cells Absolute CD19 Count HIV-1 RNA PCR copies/ml HIV-1 RNA (PCR) log HIV-1 Genotyping Miscellaneous Test Crossmatch 07/23/18 07/24/18 07/24/18 23:52 04:30 04:30 WBC RBC 2.12 L Hgb 6.3 L Hct 18.9 L* MCHC RDW Plt Count Lymph % (Auto) [place] % (Auto) Eos % (Auto) Lymph # Seg Neutrophils % Seg Neutrophils # Abs Lymphs (Manual) D-Dimer POC ABG pH POC ABG pCO2 POC ABG pO2 Sodium 127 L Potassium 5.2 H Chloride 83.9 L Carbon Dioxide 39 H BUN Creatinine 0.3 L Glucose POC Glucose 118 H Calcium 7.5 L AST ALT Lactate Dehydrogenase C-Reactive Protein Total Protein Albumin Triglycerides Lymph Enumerat CD4/CD8 % CD3 Cells Absolute CD3 Count % CD4 Cells Absolute CD4 Count % CD8 Cells Absolute CD8 Count % CD19 Cells Absolute CD19 Count HIV-1 RNA PCR copies/ml HIV-1 RNA (PCR) log HIV-1 Genotyping Miscellaneous Test Crossmatch 07/24/18 07/24/18 07/24/18 05:11 05:30 07:50 WBC RBC Hgb Hct MCHC RDW Plt Count Lymph % (Auto) [place] % (Auto) Eos % (Auto) Lymph # Seg Neutrophils % Seg Neutrophils # Abs Lymphs (Manual) D-Dimer POC ABG pH 7.462 H POC ABG pCO2 58.7 H POC ABG pO2 79 L Sodium Potassium Chloride Carbon Dioxide BUN Creatinine Glucose POC Glucose 145 H Calcium AST ALT Lactate Dehydrogenase C-Reactive Protein Total Protein Albumin Triglycerides Lymph Enumerat CD4/CD8 % CD3 Cells Absolute CD3 Count % CD4 Cells Absolute CD4 Count % CD8 Cells Absolute CD8 Count % CD19 Cells Absolute CD19 Count HIV-1 RNA PCR copies/ml HIV-1 RNA (PCR) log HIV-1 Genotyping Miscellaneous Test Crossmatch See Detail 07/25/18 07/25/18 07/25/18 09:30 09:30 17:05 WBC RBC 2.99 L Hgb 9.1 L Hct 27.0 L D MCHC RDW Plt Count Lymph % (Auto) [place] % (Auto) Eos % (Auto) Lymph # Seg Neutrophils % Seg Neutrophils # Abs Lymphs (Manual) D-Dimer POC ABG pH POC ABG pCO2 POC ABG pO2 Sodium 131 L Potassium 5.1 H Chloride 84.4 L Carbon Dioxide 39 H BUN Creatinine 0.3 L Glucose 133 H POC Glucose Calcium 8.0 L AST ALT Lactate Dehydrogenase C-Reactive Protein Total Protein Albumin Triglycerides Lymph Enumerat CD4/CD8 % CD3 Cells Absolute CD3 Count % CD4 Cells Absolute CD4 Count % CD8 Cells Absolute CD8 Count % CD19 Cells Absolute CD19 Count HIV-1 RNA PCR copies/ml HIV-1 RNA (PCR) log HIV-1 Genotyping Detected H Miscellaneous Test Crossmatch 07/26/18 07/26/18 07/26/18 00:18 04:07 05:50 WBC RBC 3.01 L Hgb 9.4 L Hct 27.2 L MCHC 35 H RDW Plt Count Lymph % (Auto) 10.4 L [place] % (Auto) Eos % (Auto) Lymph # 0.9 L Seg Neutrophils % 84.2 H Seg Neutrophils # Abs Lymphs (Manual) D-Dimer POC ABG pH 7.456 H POC ABG pCO2 61.4 H POC ABG pO2 68 L Sodium 135 L Potassium 5.5 H Chloride 88.4 L Carbon Dioxide 38 H BUN Creatinine 0.3 L Glucose POC Glucose Calcium AST ALT Lactate Dehydrogenase C-Reactive Protein Total Protein Albumin Triglycerides Lymph Enumerat CD4/CD8 % CD3 Cells Absolute CD3 Count % CD4 Cells Absolute CD4 Count % CD8 Cells Absolute CD8 Count % CD19 Cells Absolute CD19 Count HIV-1 RNA PCR copies/ml HIV-1 RNA (PCR) log HIV-1 Genotyping Miscellaneous Test Crossmatch 07/26/18 07/26/18 07/27/18 05:50 14:56 14:26 WBC RBC Hgb Hct MCHC RDW Plt Count Lymph % (Auto) [place] % (Auto) Eos % (Auto) Lymph # Seg Neutrophils % Seg Neutrophils # Abs Lymphs (Manual) D-Dimer POC ABG pH 7.472 H POC ABG pCO2 66.0 H 57.4 H POC ABG pO2 56 L 59 L Sodium 131 L Potassium 5.1 H Chloride 84.5 L Carbon Dioxide 39 H BUN Creatinine 0.3 L Glucose POC Glucose Calcium AST 78 H ALT 71 H Lactate Dehydrogenase C-Reactive Protein Total Protein 6.0 L Albumin 2.5 L Triglycerides Lymph Enumerat CD4/CD8 % CD3 Cells Absolute CD3 Count % CD4 Cells Absolute CD4 Count % CD8 Cells Absolute CD8 Count % CD19 Cells Absolute CD19 Count HIV-1 RNA PCR copies/ml HIV-1 RNA (PCR) log HIV-1 Genotyping Miscellaneous Test Crossmatch 07/28/18 07/28/18 07/28/18 05:20 05:20 05:20 WBC RBC 3.21 L Hgb 10.0 L Hct 29.9 L MCHC RDW 15.4 H Plt Count 451 H Lymph % (Auto) [place] % (Auto) Eos % (Auto) Lymph # Seg Neutrophils % 81.6 H Seg Neutrophils # Abs Lymphs (Manual) D-Dimer POC ABG pH POC ABG pCO2 POC ABG pO2 Sodium 136 L Potassium Chloride 89.9 L Carbon Dioxide 38 H BUN Creatinine 0.4 L Glucose POC Glucose Calcium 8.1 L AST 104 H ALT 113 H Lactate Dehydrogenase C-Reactive Protein Total Protein 6.2 L Albumin 2.5 L Triglycerides 209 H Lymph Enumerat CD4/CD8 % CD3 Cells Absolute CD3 Count % CD4 Cells Absolute CD4 Count % CD8 Cells Absolute CD8 Count % CD19 Cells Absolute CD19 Count HIV-1 RNA PCR copies/ml HIV-1 RNA (PCR) log HIV-1 Genotyping Miscellaneous Test Crossmatch 07/28/18 07/28/18 07/29/18 06:08 17:22 04:28 WBC RBC Hgb Hct MCHC RDW Plt Count Lymph % (Auto) [place] % (Auto) Eos % (Auto) Lymph # Seg Neutrophils % Seg Neutrophils # Abs Lymphs (Manual) D-Dimer POC ABG pH 7.328 L POC ABG pCO2 65.7 H 55.1 H POC ABG pO2 70 L 113 H 76 L Sodium Potassium Chloride Carbon Dioxide BUN Creatinine Glucose POC Glucose Calcium AST ALT Lactate Dehydrogenase C-Reactive Protein Total Protein Albumin Triglycerides Lymph Enumerat CD4/CD8 % CD3 Cells Absolute CD3 Count % CD4 Cells Absolute CD4 Count % CD8 Cells Absolute CD8 Count % CD19 Cells Absolute CD19 Count HIV-1 RNA PCR copies/ml HIV-1 RNA (PCR) log HIV-1 Genotyping Miscellaneous Test Crossmatch 08/02/18 08/02/18 08/03/18 06:30 06:30 06:30 WBC RBC 2.96 L 2.78 L Hgb 9.4 L 9.0 L Hct 27.6 L 26.3 L MCHC RDW 18.4 H 19.6 H Plt Count Lymph % (Auto) 11.1 L [place] % (Auto) Eos % (Auto) Lymph # 0.6 L 0.7 L Seg Neutrophils % 84.0 H 79.0 H Seg Neutrophils # Abs Lymphs (Manual) D-Dimer POC ABG pH POC ABG pCO2 POC ABG pO2 Sodium 133 L Potassium Chloride 92.7 L Carbon Dioxide BUN 22 H Creatinine 0.5 L Glucose POC Glucose Calcium 8.1 L AST ALT Lactate Dehydrogenase C-Reactive Protein Total Protein Albumin Triglycerides Lymph Enumerat CD4/CD8 % CD3 Cells Absolute CD3 Count % CD4 Cells Absolute CD4 Count % CD8 Cells Absolute CD8 Count % CD19 Cells Absolute CD19 Count HIV-1 RNA PCR copies/ml HIV-1 RNA (PCR) log HIV-1 Genotyping Miscellaneous Test Crossmatch 08/03/18 08/04/18 08/05/18 06:30 17:13 08:03 WBC RBC 2.77 L Hgb 8.8 L Hct 25.8 L MCHC RDW 20.4 H Plt Count Lymph % (Auto) [place] % (Auto) Eos % (Auto) Lymph # 0.9 L Seg Neutrophils % 76.6 H Seg Neutrophils # Abs Lymphs (Manual) D-Dimer POC ABG pH POC ABG pCO2 POC ABG pO2 Sodium 131 L Potassium Chloride 92.0 L Carbon Dioxide BUN Creatinine 0.3 L Glucose POC Glucose 120 H Calcium 8.0 L AST ALT Lactate Dehydrogenase C-Reactive Protein Total Protein 6.0 L Albumin 2.4 L Triglycerides Lymph Enumerat CD4/CD8 % CD3 Cells Absolute CD3 Count % CD4 Cells Absolute CD4 Count % CD8 Cells Absolute CD8 Count % CD19 Cells Absolute CD19 Count HIV-1 RNA PCR copies/ml HIV-1 RNA (PCR) log HIV-1 Genotyping Miscellaneous Test Crossmatch 08/05/18 08/06/18 08/06/18 08:03 07:38 22:01 WBC RBC Hgb Hct MCHC RDW Plt Count Lymph % (Auto) [place] % (Auto) Eos % (Auto) Lymph # Seg Neutrophils % Seg Neutrophils # Abs Lymphs (Manual) D-Dimer POC ABG pH 7.507 H POC ABG pCO2 33.6 L POC ABG pO2 113 H Sodium 132 L 131 L Potassium 3.5 L Chloride 93.0 L 92.4 L Carbon Dioxide BUN Creatinine 0.3 L 0.4 L Glucose POC Glucose Calcium 8.0 L 8.1 L AST ALT Lactate Dehydrogenase C-Reactive Protein Total Protein Albumin Triglycerides Lymph Enumerat CD4/CD8 % CD3 Cells Absolute CD3 Count % CD4 Cells Absolute CD4 Count % CD8 Cells Absolute CD8 Count % CD19 Cells Absolute CD19 Count HIV-1 RNA PCR copies/ml HIV-1 RNA (PCR) log HIV-1 Genotyping Miscellaneous Test Crossmatch 08/07/18 08/07/18 08/08/18 07:57 07:57 04:38 WBC 4.1 L RBC 3.00 L Hgb 9.4 L Hct 27.9 L MCHC RDW 19.2 H Plt Count Lymph % (Auto) [place] % (Auto) Eos % (Auto) Lymph # Seg Neutrophils % Seg Neutrophils # Abs Lymphs (Manual) D-Dimer POC ABG pH POC ABG pCO2 POC ABG pO2 Sodium 133 L Potassium 3.2 L Chloride 95.9 L Carbon Dioxide BUN Creatinine 0.4 L 0.4 L Glucose 104 H POC Glucose Calcium AST ALT Lactate Dehydrogenase C-Reactive Protein Total Protein Albumin 2.6 L Triglycerides Lymph Enumerat CD4/CD8 % CD3 Cells Absolute CD3 Count % CD4 Cells Absolute CD4 Count % CD8 Cells Absolute CD8 Count % CD19 Cells Absolute CD19 Count HIV-1 RNA PCR copies/ml HIV-1 RNA (PCR) log HIV-1 Genotyping Miscellaneous Test Crossmatch 08/11/18 08/11/18 08/12/18 06:55 06:55 00:00 WBC 3.3 L RBC 2.91 L Hgb 9.2 L Hct 26.9 L MCHC RDW 18.9 H Plt Count 503 H Lymph % (Auto) [place] % (Auto) Eos % (Auto) 7.8 H Lymph # 0.9 L Seg Neutrophils % Seg Neutrophils # Abs Lymphs (Manual) D-Dimer POC ABG pH POC ABG pCO2 POC ABG pO2 Sodium Potassium Chloride 108.8 H Carbon Dioxide BUN Creatinine 0.4 L Glucose POC Glucose 106 H Calcium 8.1 L AST ALT Lactate Dehydrogenase C-Reactive Protein Total Protein Albumin Triglycerides Lymph Enumerat CD4/CD8 % CD3 Cells Absolute CD3 Count % CD4 Cells Absolute CD4 Count % CD8 Cells Absolute CD8 Count % CD19 Cells Absolute CD19 Count HIV-1 RNA PCR copies/ml HIV-1 RNA (PCR) log HIV-1 Genotyping Miscellaneous Test Crossmatch 08/12/18 08/12/18 08/12/18 04:38 04:38 18:13 WBC 3.0 L RBC 3.04 L Hgb 9.5 L Hct 28.4 L MCHC RDW 19.0 H Plt Count 448 H Lymph % (Auto) [place] % (Auto) Eos % (Auto) 7.1 H Lymph # 0.9 L Seg Neutrophils % Seg Neutrophils # 1.6 L Abs Lymphs (Manual) D-Dimer POC ABG pH POC ABG pCO2 POC ABG pO2 Sodium Potassium 3.4 L Chloride 110.1 H Carbon Dioxide 18 L BUN Creatinine 0.4 L Glucose POC Glucose 108 H Calcium 8.1 L AST 41 H ALT Lactate Dehydrogenase C-Reactive Protein Total Protein 5.8 L Albumin 2.2 L Triglycerides Lymph Enumerat CD4/CD8 % CD3 Cells Absolute CD3 Count % CD4 Cells Absolute CD4 Count % CD8 Cells Absolute CD8 Count % CD19 Cells Absolute CD19 Count HIV-1 RNA PCR copies/ml HIV-1 RNA (PCR) log HIV-1 Genotyping Miscellaneous Test Crossmatch 08/13/18 08/13/18 08/17/18 05:58 05:58 00:35 WBC 2.9 L 3.8 L RBC 2.71 L 2.75 L Hgb 8.6 L 8.8 L Hct 25.1 L 25.4 L MCHC RDW 19.1 H 20.3 H Plt Count 480 H Lymph % (Auto) [place] % (Auto) 9.8 H 13.5 H Eos % (Auto) 4.8 H 4.4 H Lymph # 0.9 L Seg Neutrophils % Seg Neutrophils # 1.6 L Abs Lymphs (Manual) D-Dimer POC ABG pH POC ABG pCO2 POC ABG pO2 Sodium Potassium Chloride 111.1 H Carbon Dioxide 19 L BUN Creatinine 0.4 L Glucose POC Glucose Calcium 8.0 L AST ALT Lactate Dehydrogenase C-Reactive Protein Total Protein 5.3 L Albumin 2.4 L Triglycerides Lymph Enumerat CD4/CD8 % CD3 Cells Absolute CD3 Count % CD4 Cells Absolute CD4 Count % CD8 Cells Absolute CD8 Count % CD19 Cells Absolute CD19 Count HIV-1 RNA PCR copies/ml HIV-1 RNA (PCR) log HIV-1 Genotyping Miscellaneous Test Crossmatch Allied health notes reviewed: nursing
--- NOTE | 2018-08-17 09:06 | Progress Note ---
Assessment and Plan Cultures: Blood culture 07/11/2018 no growth today. Cryptococcal antigen : negative MRSA PCR: positive Blood culture 07/15/2018: in progress Urine culture 07/15/2018: no growth in 24 hours Sputum culture 07/15/18: MRSA, Jannette CMV PCR 07/15/2018 33,392 copies 08/06/2018 CMV PCR: 363 08/23/2018 Crypto and Giardia AG- Positive Assessment: 37 y/o male currently in [facility] with history of HIV infection of unknown duration, noncompliant with antiretroviral medication, severe malnutrition; admitted on 07/11/2018, brought by law enforcement, due to 2-week history of shortness of breath, generalized weakness and productive cough: 1) Sepsis with new septic shock: Resolved. Etiology most likely pneumonia. 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 CMV +/- MRSA. Chest CT showed bilateral patchy and somewhat confluent alveolar infiltrates and interstitial infiltrates. No effusions. Sputum culture 07/15 grew MRSA and Jannette. PJP DFA was also positive. Completed linezolid x 10 days until 07/23. S/p 21 days bactrim IV until 07/31/2018. Now on prophylaxis with Bactrim. 3) HIV with AIDS: Patient had not taken his HIV medication for at least 6 months prior due to his incarceration. On admission he reported 40lbs unintentional weight loss for 2 months and intermittent loose stools over the past 2 weeks. VL 523,000/ CD4=7. Pneumocytosis Jirovecii positive. RPR nonreactive. Hepatitis panel negative. HIV Genotype with wild type, no resistance associated mutations. Was started on HIV therapy: emtricitabine, tenofovir and dolutegravir (started on 08/07/2018). Now on Bactrim prophylaxis. Azithromycin prophylaxis is not needed since patient is now on ART. 4) Diarrhea: continuing. multifactorial from Giardia, Cryptosporidium, tube feeds as well as ?HIV/AIDS enteropathy. 5) Acute respiratory failure: not better, from pneumonia. improving s/p trach/PEG placement 08/01. Trach capped. 6) Anemia: s/p transfusion 7) Facial rash: ? seborrheic dermatitis. improving. 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 Completed 21 days of Valcyte. Additional therapy not needed since patient is now on ARVs and there is no evidence of end organ damage from CMV. 9) Sacral wound: Excisional debridement of stage 3 sacral wound 08/15/18.. Dr. Walters following. Recommendations: - continue bactrim DS 1 tab q day for PJP prophylaxis, will need to continue upon discharge - continue HIV therapy: emtricitabine, tenofovir and dolutegravir (started on 08/07/2018). - contact isolation for MRSA - continue Flagyl 500mg PO every 8 hours, D3 of D7 -Clinically stable, Ok to discharge from ID standpoint on Flagyl 500mg PO every 8 hours ending 08-21-18 , Bactrim DS 1 tab PO qday for PJP prophylaxis Emtricitabine 200mg PO qday, Tenofovir 300mg PO qday and Dolutegravir 50mg PO qday - 30 day prescriptions on the chart -Will need to follow up with HIV clinic at [facility], D/W . Dr. Bernal is supervisor communications and signals this weekend [phone], please call for questions. Oralia Hill NP [facility] M: [phone] O:[phone] Subjective Date of service: 08/17/18 Principal diagnosis: Acute hypoxemic resp failure; Bilateral pneumonia (PJP); HIV/AIDS Interval history: Patient seen and examined. Awake, alert, no acute distress reported. No fevers. Objective - Exam Narrative Exam: Constitutional: Alert, cooperative. No acute distress. Cachexia + Head, Ears, Nose: Normocephalic, atraumatic. External ears, nose normal Eyes: Conjunctivae/corneas clear. No icterus. No ptosis. Neck: trach capped Oral: mucosa moist, no ulcers, no thrush Cardiovascular: S1, S2 normal. Respiratory: clear bilaterally. no wheeze GI: Soft, non-tender; bowel sounds normal. No peritoneal signs. G tube + Musculoskeletal: No pedal edema, no cyanosis. +numbness reported plantar aspect of the foot Skin: Stage 3 sacral wound. s/p excisional debridement. Hem/Lymphatic: No palpable cervical or supraclavicular nodes. No lymphangitis Psych: no agitation Neurological: Awake, alert, follows commands - Constitutional Vitals: Vital Signs Temp Pulse Resp BP Pulse Ox 98.0 F 91 H 16 100/65 98 08/17/18 06:16 08/17/18 06:16 08/17/18 06:16 08/17/18 06:16 08/17/18 08:07 Temperature -Last 24 Hours Temperature 98.0 F Temperature 98.3 F Temperature 98.4 F Temperature 98.4 F - Labs CBC & Chem 7: 08/17/18 00:35 08/13/18 05:58 Labs: Abnormal lab results 08/17/18 Range/Units 00:35 WBC 3.8 L (4.5-11.0) K/mm3 RBC 2.75 L (3.65-5.03) M/mm3 Hgb 8.8 L (11.8-15.2) gm/dl Hct 25.4 L (35.5-45.6) % RDW 20.3 H (13.2-15.2) % Plt Count 480 H (140-440) K/mm3 [place] % (Auto) 13.5 H (0.0-7.3) % Eos % (Auto) 4.4 H (0.0-4.3) %
[2018-08-17] MEDS: HEPARIN SUB-Q SCH ×2 (09:07→15:03)
[2018-08-17] MEDS ORDERED: IMODIUM PO PRN (12:18)
[2018-08-17] MEDS: BACTRIM 200-40 MG/5 ML PO SCH (12:19)
[2018-08-17] MEDS: TIVICAY PO SCH (12:20)
[2018-08-17] MEDS: CARDURA PO SCH (12:21)
[2018-08-17] MEDS: PEPCID PO SCH (12:21)
[2018-08-17] MEDS: VIREAD PO SCH (12:22)
[2018-08-17] MEDS: EMTRIVA PO SCH (12:23)
--- NOTE | 2018-08-17 13:27 | Discharge Summary ---
Providers - Providers Date of Admission: 07/11/18 17:16 Date of discharge: 08/17/18 Attending physician: SALYL LOPEZ 07/11/18 20:55 Consult to Physician [CONS] Routine Comment: Consulting Provider: DAVID PREITO Physician Instructions: Reason For Exam: AIDS 07/11/18 22:46 Consult to Physician [CONS] Routine Comment: Consulting Provider: REID WARE Physician Instructions: Reason For Exam: respiratory failure 07/12/18 13:26 Consult to Dietitian/Nutrition [CONS] Routine Physician Instructions: Reason For Exam: Reason for Consult: Write/Manage Tube Feeding 07/13/18 10:44 Consult to PICC Line RN [CONS] Urgent Reason For Exam: central vascular access Type Line:: PICC 07/22/18 13:27 Consult to Case Management [CONS] Routine 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 Was contact made?: Yes If yes, spoke with:: Tabitha Time called:: 16:00 Additional Physician Instructions: need to contact Family 07/27/18 11:08 Consult to Physician [CONS] Routine Comment: Consulting Provider: TRELL ALMANZA Physician Instructions: Reason For Exam: Tracheostomy +/- PEG placement 08/02/18 10:24 Consult to Dietitian/Nutrition [CONS] Routine Physician Instructions: Assess nutrtn needs, initiate, modify, manage TF Reason For Exam: Reason for Consult: Write/Manage Tube Feeding Reason for Consult: Write/Manage Tube Feeding 08/03/18 19:24 Consult to Wound/ET Nurse [CONS] Routine Reason For Exam: wound eval 08/06/18 06:47 Occupational Therapy Evaluate and Treat [CONS] Routine Comment: Reason For Exam: critical illness myopathy Physical Therapy Evaluation and Treat [CONS] Routine Comment: Reason For Exam: deconditioning, critical illness myopathy 08/09/18 13:29 Consult to Dietitian/Nutrition [CONS] Routine Physician Instructions: to plan for discharge schedule of feeds Reason For Exam: establish a bolus feed regimen Reason for Consult: Write/Manage Tube Feeding 08/09/18 13:38 Speech Therapy Evaluation and Treat [CONS] Routine Reason For Exam: aspiration risk 08/14/18 14:25 Consult to Physician [CONS] Routine Comment: Consulting Provider: CALEB MARCH Physician Instructions: sacral wound for debridement Reason For Exam: evaluate sacral wound [facility] Condition: Stable Hospital course: Patient is a 37 yo man with a history of HIV and tobacco dependency who presented to [facility] ED on 07/11/2018 from [facility] [place] per patient) to [facility] ED with sob and cough. Pt admitted to IMCU and initiated on Pneumonia protocol. Patient required emergent intubation following admission to the IMCU. He underwent trach and PEG on 08/01/18 after prolonged Mechanical Ventilation. * CT head: No CT evidence of acute intracranial abnormality. Pansinus disease * CTA CHEST: IMPRESSION: No pulmonary embolus. Bilateral patchy and somewhat confluent alveolar infiltrates and interstitial infiltrates. Noeffusions. Mild cardiomegaly. Runnings likely reflect a viral pneumonia or inhalational process * CXR IMPRESSION: Heart size is normal.There are bilateral lower lobe infiltrates. These are slightly worse than the prior study.. There is no pleural effusion or pneumothorax. Endotracheal tube is in the mid trachea. NG tube is in the stomach. There is a right-sided PICC line. The tip is in the superior vena cava.. Date of procedure: 08/15/18 Pre-op diagnosis: unstageable sacral wound Post-op diagnosis: same Findings: Stage 3 sacral wound measurin.5cm x 3.5 x 0.25 cm wound Procedure: excisional debridement of sacral wound Anesthesia: KAYLEEN, local Surgeon: CALEB MARCH Estimated blood loss: minimal Pathology: none Condition: stable Disposition: PACU Cultures: Blood culture 07/11/2018 no growth today. Cryptococcal antigen : negative MRSA PCR: positive Blood culture 07/15/2018: in progress Urine culture 07/15/2018: no growth in 24 hours Sputum culture 07/15/18: MRSA, Jannette CMV PCR 07/15/2018 33,392 copies 08/06/2018 CMV PCR: 363 08/23/2018 Crypto and Giardia AG- Positive ID Recommendations 08/17/18: - continue bactrim DS 1 tab q day for PJP prophylaxis, will need to continue upon discharge - continue HIV therapy: emtricitabine, tenofovir and dolutegravir (started on 08/07/2018). - contact isolation for MRSA - continue Flagyl 500mg PO every 8 hours, D3 of D7 -Clinically stable, Ok to discharge from ID standpoint on Flagyl 500mg PO every 8 hours ending 08-21-18 , Bactrim DS 1 tab PO qday for PJP prophylaxis Emtricitabine 200mg PO qday, Tenofovir 300mg PO qday and Dolutegravir 50mg PO qday - 30 day prescriptions on the chart -Will need to [facility] up with [facility], D/W CM. 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 Will need to follow up with HIV clinic at [facility]. AOCD: monitor cbc closely Elevated d/DIMER- NO PE noted on CTA chest Disposition: [facility] police dismissed charges, now needs placement, hopefully he can live with his sister. Disposition: DC-01 TO HOME OR SELFCARE Time spent for discharge: 34 minutes Core Measure Documentation - Palliative Care Palliative Care/ Comfort Measures: Not Applicable - Core Measures Any of the following diagnoses?: none - VTE Discharge Requirements Deep Vein Thrombosis/Pulmonary Embolism Present on Admission: No Has pt received <5 days of overlap therapy or INR<2.0: No Anticoagulant overlap therapy prescribed at discharge: No Contraindication No Overlap Therapy order at DC: Not Indicated Exam - Physical Exam Narrative exam: Gen: thin, chronic ill appearing, bmi 15.4, trach in place, bmi 15.4 HEENT: NCAT, EOMI, PERRL, trach in place Neck: supple, no JVD CVS/Heart: RRR, normal S1S2, pulses present bilaterally Chest/Lungs: CTA bilateral, Symmetrical chest expansion, good air entry bilaterally GI/Abdomen: soft, PEG in place, good bowel sounds, no guarding or rebound /Bladder: no suprapubic tenderness, Extermity/Skin: mmm MSK: moving all ext Neuro: No new focal deficits Psych: calm - Constitutional Vitals: Temp Pulse Resp BP Pulse Ox 98.0 F 91 H 16 100/65 98 08/17/18 06:16 08/17/18 06:16 08/17/18 06:16 08/17/18 06:16 08/17/18 08:07 Plan Activity: other (no strenous activity unless cleared by PCP) Diet: regular Follow up with: LELIA ALLEN MD [Primary Care Provider] - 3-5 Days DAVID PRIETO MD [Staff Physician] - 7 Days Prescriptions: Sulfamethoxazole/Trimethoprim [Bactrim DS TAB] 1 each PO QDAY 30 Days #30 tablet Emtricitabine [Emtriva] 200 mg PO QDAY 30 Days #30 capsule metroNIDAZOLE [Flagyl] 500 mg PO Q8HR 4 Days #12 tablet Dolutegravir [Tivicay] 50 mg PO Q24HR 30 Days #30 tablet Tenofovir [Viread] 300 mg PO QDAY 30 Days #30 tablet
--- NOTE | 2018-08-17 13:27 | Progress Note ---
Assessment and Plan Assessment and plan: Patient is a 37 yo man with a history of HIV and tobacco dependency who presented to [facility] ED on 07/11/[facility] [place] patient[place] to [facility] ED with sob and cough. Pt admitted to IMCU and initiated on Pneumonia protocol. Patient required emergent intubation following admission to the IMCU. He underwent trach and PEG on 08/01/18 after prolonged Mechanical Ventilation. * CT head: No CT evidence of acute intracranial abnormality. Pansinus disease * CTA CHEST: IMPRESSION: No pulmonary embolus. Bilateral patchy and somewhat confluent alveolar infiltrates and interstitial infiltrates. Noeffusions. Mild cardiomegaly. Runnings likely reflect a viral pneumonia or inhalational process * CXR IMPRESSION: Heart size is normal.There are bilateral lower lobe infiltrates. These are slightly worse than the prior study.. There is no pleural effusion or pneumothorax. Endotracheal tube is in the mid trachea. NG tube is in the stomach. There is a right-sided PICC line. The tip is in the superior vena cava.. Date of procedure: 08/15/18 Pre-op diagnosis: unstageable sacral wound Post-op diagnosis: same Findings: Stage 3 sacral wound measurin.5cm x 3.5 x 0.25 cm wound Procedure: excisional debridement of sacral wound Anesthesia: MAC, local Surgeon: CALEB MARCH Estimated blood loss: minimal Pathology: none Condition: stable Disposition: PACU Cultures: Blood culture 07/11/2018 no growth today. 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 Will need to follow up with HIV clinic at [facility]. AOCD: monitor cbc closely Elevated d/DIMER- NO PE noted on CTA chest Disposition: continue inpatient care, [facility] dismissed charges, now needs placement, hopefully he can live with his sister. History Interval history: Patient was seen and examined. Follow-up on current diagnosis of respiratory failure, now with Trach, off O2. No overnight events reported to me. Imaging, nursing note, chart, labs and old chart reviewed. No new c/o per patient Hospitalist Physical - Physical exam Narrative exam: Gen: thin, chronic ill appearing, bmi 15.4, trach in place, bmi 15.4 HEENT: NCAT, EOMI, PERRL, trach in place Neck: supple, no JVD CVS/Heart: RRR, normal S1S2, pulses present bilaterally Chest/Lungs: CTA bilateral, Symmetrical chest expansion, good air entry bilaterally GI/Abdomen: soft, PEG in place, good bowel sounds, no guarding or rebound /Bladder: no suprapubic tenderness, Extermity/Skin: mmm MSK: moving all ext Neuro: No new focal deficits Psych: calm - Constitutional Vitals: Temp Pulse Resp BP Pulse Ox 98.0 F 91 H 16 100/65 98 08/17/18 06:16 08/17/18 06:16 08/17/18 06:16 08/17/18 06:16 08/17/18 08:07 General appearance: Present: no acute distress, cachectic, disheveled, other (tracheostomy) Results - Labs CBC & Chem 7: 08/17/18 00:35 08/13/18 05:58 Labs: Laboratory Last Values WBC 3.8 K/mm3 (4.5-11.0) L 08/17/18 00:35 RBC 2.75 M/mm3 (3.65-5.03) L 08/17/18 00:35 Hgb 8.8 gm/dl (11.8-15.2) L 08/17/18 00:35 Hct 25.4 % (35.5-45.6) L 08/17/18 00:35 MCV 92 fl (84-94) 08/17/18 00:35 MCH 32 pg (28-32) 08/17/18 00:35 MCHC 34 % (32-34) 08/17/18 00:35 RDW 20.3 % (13.2-15.2) H 08/17/18 00:35 Plt Count 480 K/mm3 (140-440) H 08/17/18 00:35 Lymph % (Auto) 31.5 % (13.4-35.0) 08/17/18 00:35 [place] % (Auto) 13.5 % (0.0-7.3) H 08/17/18 00:35 Eos % (Auto) 4.4 % (0.0-4.3) H 08/17/18 00:35 Baso % (Auto) 0.7 % (0.0-1.8) 08/17/18 00:35 Lymph # 1.2 K/mm3 (1.2-5.4) 08/17/18 00:35 [place] # 0.5 K/mm3 (0.0-0.8) 08/17/18 00:35 Eos # 0.2 K/mm3 (0.0-0.4) 08/17/18 00:35 Baso # 0.0 K/mm3 (0.0-0.1) 08/17/18 00:35 Add Manual Diff Complete 07/25/18 09:30 Total Counted 100 07/25/18 09:30 Seg Neutrophils % 49.9 % (40.0-70.0) 08/17/18 00:35 Seg Neuts % (Manual) 63.0 % (40.0-70.0) 07/25/18 09:30 0 % 07/25/18 09:30 35.0 % (13.4-35.0) 07/25/18 09:30 Reactive Lymphs % (Man) 0 % 07/25/18 09:30 1.0 % (0.0-7.3) 07/25/18 09:30 0 % (0.0-4.3) 07/25/18 09:30 0 % (0.0-1.8) 07/25/18 09:30 0 % 07/25/18 09:30 1.0 % 07/25/18 09:30 0 % 07/25/18 09:30 0 % 07/25/18 09:30 Nucleated RBC % Not Reportable 07/25/18 09:30 Seg Neutrophils # 1.9 K/mm3 (1.8-7.7) 08/17/18 00:35 Seg Neutrophils # Man 4.9 K/mm3 (1.8-7.7) 07/25/18 09:30 Band Neutrophils # 0.0 K/mm3 07/25/18 09:30 Abs Lymphs (Manual) 220 cells/uL (850-3900) L 07/12/18 19:29 2.7 K/mm3 (1.2-5.4) 07/25/18 09:30 Abs React Lymphs (Man) 0.0 K/mm3 07/25/18 09:30 0.1 K/mm3 (0.0-0.8) 07/25/18 09:30 0.0 K/mm3 (0.0-0.4) 07/25/18 09:30 0.0 K/mm3 (0.0-0.1) 07/25/18 09:30 0.0 K/mm3 07/25/18 09:30 0.1 K/mm3 07/25/18 09:30 0.0 K/mm3 07/25/18 09:30 Blast Cells # 0.0 K/mm3 07/25/18 09:30 WBC Morphology Not Reportable 07/25/18 09:30 Hypersegmented Neuts Not Reportable 07/25/18 09:30 Hyposegmented Neuts Not Reportable 07/25/18 09:30 Hypogranular Neuts Not Reportable 07/25/18 09:30 Not Reportable 07/25/18 09:30 Not Reportable 07/25/18 09:30 Not Reportable 07/25/18 09:30 Not Reportable 07/25/18 09:30 Not Reportable 07/25/18 09:30 Not Reportable 07/25/18 09:30 Consistent w auto 07/25/18 09:30 Not Reportable 07/25/18 09:30 Plt Clumps, EDTA Not Reportable 07/25/18 09:30 Not Reportable 07/25/18 09:30 Not Reportable 07/25/18 09:30 Not Reportable 07/25/18 09:30 Plt Morphology Comment Not Reportable 07/25/18 09:30 RBC Morphology Not Reportable 07/25/18 09:30 Dimorphic RBCs Not Reportable 07/25/18 09:30 Few 07/25/18 09:30 Not Reportable 07/25/18 09:30 Not Reportable 07/25/18 09:30 1+ 07/25/18 09:30 Not Reportable 07/25/18 09:30 Few 07/25/18 09:30 Not Reportable 07/25/18 09:30 Not Reportable 07/25/18 09:30 Not Reportable 07/25/18 09:30 Rare 07/25/18 09:30 Not Reportable 07/25/18 09:30 Not Reportable 07/25/18 09:30 Not Reportable 07/25/18 09:30 Not Reportable 07/25/18 09:30 Not Reportable 07/25/18 09:30 Not Reportable 07/25/18 09:30 Not Reportable 07/25/18 09:30 Not Reportable 07/25/18 09:30 Not Reportable 07/25/18 09:30 Acanthocytes (Spur) Not Reportable 07/25/18 09:30 Rouleaux Not Reportable 07/25/18 09:30 Not Reportable 07/25/18 09:30 Not Reportable 07/25/18 09:30 Not Reportable 07/25/18 09:30 Not Reportable 07/25/18 09:30 Hem Pathologist Commnt No 07/25/18 09:30 1298.70 ng/mlDDU (0-234) H 07/11/18 15:04 POC ABG pH 7.507 (7.35-7.45) H 08/06/18 22:01 POC ABG pCO2 33.6 (35-45) L 08/06/18 22:01 POC ABG pO2 113 (80-105) H 08/06/18 22:01 POC ABG HCO3 26.6 (22-26 mml/L) 08/06/18 22:01 POC ABG Total CO2 28 (23-27mmol/L) 08/06/18 22:01 POC ABG O2 Sat 99 08/06/18 22:01 POC ABG Base Excess 4 ((-2) - (+3)mmol/L) 08/06/18 22:01 35 % 08/06/18 22:01 Sodium 140 mmol/L (137-145) 08/13/18 05:58 Potassium 3.6 mmol/L (3.6-5.0) 08/13/18 05:58 Chloride 111.1 mmol/L (98-107) H 08/13/18 05:58 Carbon Dioxide 19 mmol/L (22-30) L 08/13/18 05:58 14 mmol/L 08/13/18 05:58 BUN 11 mg/dL (9-20) 08/13/18 05:58 0.4 mg/dL (0.8-1.5) L 08/13/18 05:58 Estimated GFR > 60 ml/min 08/13/18 05:58 28 % 08/13/18 05:58 Glucose 91 mg/dL (75-100) 08/13/18 05:58 POC Glucose 92 (70-105) 08/12/18 23:56 Lactic Acid 1.80 mmol/L (0.7-2.0) 07/11/18 21:01 Calcium 8.0 mg/dL (8.4-10.2) L 08/13/18 05:58 Magnesium 1.70 mg/dL (1.7-2.3) 08/07/18 07:57 < 0.20 mg/dL (0.1-1.2) 08/13/18 05:58 AST 35 units/L (5-40) 08/13/18 05:58 ALT 49 units/L (7-56) 08/13/18 05:58 76 units/L (35-129) 08/13/18 05:58 731 units/L (91-180) H 07/12/18 19:29 < 0.010 ng/mL (0.00-0.029) 07/11/18 15:04 2.70 mg/dL (0.00-1.30) H 07/15/18 14:09 NT-Pro-B Natriuret Pep 249.7 pg/mL (0-450) 07/11/18 15:04 5.3 g/dL (6.3-8.2) L 08/13/18 05:58 2.4 g/dL (3.9-5) L 08/13/18 05:58 0.8 % 08/13/18 05:58 Triglycerides 209 mg/dL (2-149) H 07/28/18 05:20 Yellow (Yellow) 07/15/18 14:14 Clear (Clear) 07/15/18 14:14 6.0 (5.0-7.0) 07/15/18 14:14 Ur Specific [place] 1.015 (1.003-1.030) 07/15/18 14:14 30 mg/dl mg/dL (Negative) 07/15/18 14:14 Neg mg/dL (Negative) 07/15/18 14:14 Neg mg/dL (Negative) 07/15/18 14:14 Neg (Negative) 07/15/18 14:14 Neg (Negative) 07/15/18 14:14 Neg (Negative) 07/15/18 14:14 < 2.0 mg/dL (<2.0) 07/15/18 14:14 Ur Leukocyte Esterase Neg (Negative) 07/15/18 14:14 2.0 /HPF (0.0-6.0) 07/15/18 14:14 6.0 /HPF (0.0-6.0) 07/15/18 14:14 21 mmol/L 07/19/18 14:27 Lymph Enumerat CD4/CD8 0.04 (0.86-5.00) L 07/12/18 19:29 % CD3 Cells 88 % (57-85) H 07/12/18 19:29 194 cells/uL (840-3060) L 07/12/18 19:29 % CD4 Cells 3 % (30-61) L 07/12/18 19:29 7 cells/uL (490-1740) L 07/12/18 19:29 % CD8 Cells 75 % (12-42) H 07/12/18 19:29 177 cells/uL (180-1170) L 07/12/18 19:29 % CD19 Cells 4 % (6-29) L 07/12/18 19:29 9 cells/uL (110-660) L 07/12/18 19:29 RPR Nonreactive (Nonreactive) 07/12/18 23:38 CMV DNA PCR log endoscopy registered nurse/mL See scanned report 08/06/18 07:38 Hepatitis A IgM Ab Non-reactive (NonReactive) 07/12/18 23:38 Hep Bs Antigen Non-reactive (Negative) 07/12/18 23:38 Hep B Core IgM Ab Non-reactive (NonReactive) 07/12/18 23:38 Non-reactive (NonReactive) 07/12/18 23:38 HIV-1 RNA PCR copies/ml 650554 Copies/mL H 07/12/18 19:29 5.72 Log cps/mL H 07/12/18 19:29 Detected H 07/25/18 17:05 Flexitest 1 H 07/16/18 07:21 Blood Type O POSITIVE 07/24/18 07:50 Antibody Screen Positive 07/24/18 07:50 Prewarmed Antibody Srcn Positive 07/18/18 03:10 Antibody Identification Anti-Adrianna 07/24/18 07:50 Direct Antiglob Test Negative 07/24/18 07:50 NIKUNJ, Poly Interpret Negative 07/24/18 07:50 Crossmatch See Detail 07/24/18 07:50 Active Medications - Current Medications Current Medications: Generic Name Dose Route Start Last Admin Trade Name Freq PRN Reason Stop Dose Admin Acetaminophen 650 mg 07/12/18 18:07 08/17/18 02:54 Tylenol FEEDTUBE 650 mg Q6H PRN Administration Non Cardiac Pain or Temp>100.5 Albuterol 2.5 mg 07/11/18 17:16 07/26/18 12:07 Proventil IH 2.5 mg Q3HRT PRN Administration Shortness Of Breath Lipase/Protease/Amylase 1 each 08/09/18 17:59 Pancreaze 10,500 Unit FEEDTUBE PRN PRN For Clogged Feeding Tube Bismuth Subsalicylate 262 mg 08/12/18 15:00 08/17/18 12:18 Pepto Bismol PO 262 mg Q6H PRN Administration Diarrhea Doxazosin Mesylate 2 mg 07/18/18 12:00 08/17/18 12:21 Cardura PO 2 mg QDAY HE Administration Emtricitabine 200 mg 08/07/18 10:00 08/17/18 12:23 Emtriva PO 200 mg QDAY HE Administration Famotidine 20 mg 07/16/18 22:00 08/17/18 12:21 Pepcid PO 20 mg BID HE Administration Guaifenesin 10 ml 08/14/18 22:26 08/15/18 16:38 Guaifenesin Dm Syrup PO 10 ml Q4H PRN Administration Cough Heparin Sodium (Porcine) 5,000 unit 08/03/18 22:00 08/17/18 09:07 Heparin SUB-Q 5,000 unit TID HE Administration Hydrophilic Ointment 1 applic 07/12/18 13:30 Vaseline Lip Therapy TP Q2HR PRN Dry Lips Sodium Chloride 1,000 mls @ 100 mls/hr 08/08/18 22:00 08/17/18 01:37 Nacl 0.9% 1000 Ml IV 100 mls/hr DIRECT HE Administration Loperamide HCl 2 mg 08/17/18 12:18 Imodium PO Q6H PRN Diarrhea Metronidazole 500 mg 08/15/18 12:00 08/17/18 05:19 Flagyl PO 500 mg Q8HR HE Administration Protocol Multi-Ingred Cream/Lotion/Oil/Oint 1 applic 07/12/18 13:30 Artificial Tears Ophth Oint OU Q4HR PRN Dry Eye(s) Ondansetron HCl 4 mg 08/12/18 14:05 Zofran IV QID PRN Nausea And Vomiting Quetiapine Fumarate 200 mg 08/07/18 22:00 08/16/18 21:04 Seroquel PO 200 mg QHS HE Administration Simple Syrup 15 ml 08/09/18 17:59 Simple Syrup FEEDTUBE PRN PRN Hypoglycemia Simple Syrup 30 ml 08/09/18 17:59 Simple Syrup FEEDTUBE PRN PRN Hypoglycemia Sodium Bicarbonate 325 mg 08/09/18 17:59 Sodium Bicarbonate FEEDTUBE PRN PRN For Clogged Feeding Tube Sodium Chloride 10 ml 07/11/18 22:00 08/17/18 12:23 Sodium Chloride Flush Syringe 10 Ml IV 10 ml BID HE Administration Sodium Chloride 10 ml 07/11/18 17:16 07/18/18 09:00 Sodium Chloride Flush Syringe 10 Ml IV 10 ml PRN PRN Administration LINE FLUSH Tenofovir Disoproxil Fumarate 300 mg 08/07/18 10:00 08/17/18 12:22 Viread PO 300 mg QDAY HE Administration Trimethoprim/Sulfamethoxazole 160 mg 08/01/18 10:00 08/17/18 12:19 Bactrim 200-40 Mg/5 Ml PO 160 mg DAILY HE Administration Nutrition/Malnutrition Assess - Dietary Evaluation Nutrition/Malnutrition Findings: Nutrition Notes Start: 07/12/18 09:38 Freq: Status: Active Protocol: Document 08/14/18 16:11 RM (Rec: 08/14/18 16:15 RM [id number]) Nutrition Notes Initial or Follow up Reassessment Current Diagnosis Sepsis,Respiratory Failure Other Pertinent Diagnosis Bilat pneu, HIV/AIDS, Diarrhea ,PEG Current Diet Regular Labs/Tests Reviewed Pertinent Medications Reviewed Height 5 ft 11 in Weight 55 kg [place] Body Weight (kg) 78.18 BMI 16.9 Subjective/Other Information Regular diet recommended per progress note 08/13/18. Pt stated that his appetite is good and that he eats most of his meals. Percent of energy/protein needs met: 66%/97% Burn Absent Trauma Absent #2 Nutrition Diagnosis Inadequate oral intake As Evidenced by Signs and Symptoms pt meeting 66% of calorie and 97% of protein needs Diagnosis Progress(for reassessment Improved documentation) #1 Nutrition Diagnosis Malnutrition Diagnosis Progress(for reassessment Continues documentation) Is patient on ventilator? No Is Patient Ambulatory and/or Out of Bed No REE-([facility]-confined to bed) 1805.352 Kcal/Kg value to use for calculation 48 Approximate Energy Requirements Using 2640 kcal/Kg Calculation Used for Recommendations Kcal/kg Additional Notes Pro needs 1.2-1.5 g/k-83g /day Fluid needs 1ml/kcal Nutrition Intervention Change Diet Order: Continue curent Add Supplement/Snack (indicate name/kcal Ensure Enlive 1 daily /protein ) Provides kCal: 350 Provides Protein (gm) 20 Goal #1 Meet at least 75% of calorie and protein needs via PO and ONS intakes Anticipated Discharge Needs: Regular diet Follow-Up By: 08/17/18 Additional Comments Follow for PO and ONS intakes
[2018-08-17 14:12] VITALS: BP 98/58
== END 2018-08-17 20:00 | disposition home health service (06) | DRG 3 ==
LOC: ED 13:32 → EEVIPCON 17:16 → IMCU 17:16 → CC1 22:40 → 4A 08-07 14:13 → 3A 08-10 15:38
PROVIDERS: ADMIT Internal Medicine; ATTEND Internal Medicine
PROC: 5A1955Z Respiratory Ventilation, Greater than 96 Consecutive Hours (ICD-10-PCS; principal; 2018-07-11)
PROC: 0BH17EZ Insertion of Endotracheal Airway into Trachea, Via Natural or Artificial Opening (ICD-10-PCS; 2018-07-11)
PROC: 4A033R1 Measurement of Arterial Saturation, Peripheral, Percutaneous Approach (ICD-10-PCS; 2018-07-11)
PROC: 5A09357 Assistance with Respiratory Ventilation, Less than 24 Consecutive Hours, Continuous Positive Airway Pressure (ICD-10-PCS; 2018-07-11)
PROC: 30233N1 Transfusion of Nonautologous Red Blood Cells into Peripheral Vein, Percutaneous Approach (ICD-10-PCS; 2018-07-24)
PROC: 0B113F4 Bypass Trachea to Cutaneous with Tracheostomy Device, Percutaneous Approach (ICD-10-PCS; 2018-08-01)
PROC: 0DH63UZ Insertion of Feeding Device into Stomach, Percutaneous Approach (ICD-10-PCS; 2018-08-01)
PROC: 0JB70ZZ Excision of Back Subcutaneous Tissue and Fascia, Open Approach (ICD-10-PCS; 2018-08-15)
DX: B20 Human immunodeficiency virus [HIV] disease (principal); A41.9 Sepsis, unspecified organism; L89.153 Pressure ulcer of sacral region, stage 3; B59 Pneumocystosis; E43 Unspecified severe protein-calorie malnutrition; R65.21 Severe sepsis with septic shock; J96.01 Acute respiratory failure with hypoxia; J96.02 Acute respiratory failure with hypercapnia; E87.1 Hypo-osmolality and hyponatremia; Z68.1 Body mass index [BMI] 19.9 or less, adult; D62 Acute posthemorrhagic anemia; Z99.11 Dependence on respirator [ventilator] status; R19.7 Diarrhea, unspecified; E87.5 Hyperkalemia; K59.00 Constipation, unspecified; K21.9 Gastro-esophageal reflux disease without esophagitis; Z87.891 Personal history of nicotine dependence
CPT/HCPCS: 36415; 36600; 70450; 71045; 71275; 74018; 80048; 80053; 80074; 81001; 82024; 82140; 82803; 82955; 82962; 83615; 83735; 83880; 84300; 84478; 84484; 85007; 85025; 85027; 85379; 86140; 86403; 86592; 86850; 86870; 86880; 86900; 86901; 86922; 87040; 87070; 87076; 87086; 87116; 87177; 87186; 87205; 87497; 87536; 87901; 88112; 88312; 93005; 93010; 93306; 94002; 94003; 94640; 94660; 94760; 99285; G0378; J0330; J0456; J0692; J0696; J1170; J1265; J1570; J1644; J1650; J2020; J2060; J2250; J2405; J2704; J2920; J3010; J7030; J7040; J7050; J7060; P9016; Q9967